=== PATIENT | male | born 1935 | race Asian ===

== ENCOUNTER 2016-06-04 02:03 | Inpatient (IN) | payer MEDICAID ==
[2016-06-04] VITALS (27 sets, daily range): BP systolic 91–161; BP diastolic 57–80; PULSE 59–128; RESP 14–40; TEMP 97.3–103.7; O2SAT 92–100
[~2016-06-04] VITALS: Ht 162.6 cm; Wt 61.5 kg
[~2016-06-04 02:03] MED LIST: APAP325T G-TUBE; JEVILIQ10 G-TUBE; MULT-65 G-TUBE; TAMS0.4C67 G-TUBE; VITA500C3 G-TUBE; ZINC220C3 G-TUBE
[2016-06-04] MEDS ORDERED: PIPERACIL-TAZO 4.5 GM PREMIX 100 ML IV STA (02:19)
[2016-06-04] MEDS ORDERED: VANCOMYCIN INJ 1,000 MG in SODIUM CHLOR 0.9% 250 ML INJ 250 ML IV STA (02:19)
[2016-06-04] MEDS ORDERED: SODIUM CHLORIDE 0.9% FLUSH 5 ML FLUSH IVF PRN (02:30)
[2016-06-04] MEDS ORDERED: ETOMIDATE 20 MG/10 ML VIAL IVP ONE (02:30)
[2016-06-04] MEDS ORDERED: ACETAMINOPHEN 650 MG SUPP RECTAL ONE (02:30)
[2016-06-04] MEDS ORDERED: VECURONIUM BROMIDE 10 MG VIAL IV ONE (02:30)
[2016-06-04] MEDS ORDERED: SODIUM CHLORID 0.9% 500 ML INJ 500 ML IV ONE ×2 (02:30→03:45)
--- NOTE | 2016-06-04 02:35 | PD ---
HPI Chief Complaint: fevers Time Seen by Provider: 02:28 Travel History International Travel<30 days: No Contact w/Intl Traveler<30days: No Traveled to known affect area: No History of Present Illness HPI 80-year-old male senior living patient with history of dementia, presents to the ER brought in by EMS, apparently has been having a fever 102 at the facility, and they have been trying to put him in for Rocephin and get an IV. However, they were not able to get an IV. Patient apparently has altered mental status at baseline and is nonverbal, he is here in the ER nonverbal and unable to give me any further history. Modifying Factors: None Associated Signs & Symptoms: Fevers, altered mental status Risk Factors: Elderly PFSH Past Medical History Alzheimer's Disease: Yes Blood Disorders: No Anxiety: No Depression: No Heart Rhythm Problems: No Cancer: No Cardiovascular Problems: No High Cholesterol: No Chest Pain: No Congestive Heart Failure: No Dementia: Yes Diabetes: No Diminished Hearing: No Endocrine: No Gastrointestinal Disorders: Yes (constipation, FAILURE TO THRIVE) Genitourinary: Yes (hypertrophy benign) Hypertension: Yes Musculoskeletal: No Neurologic: Yes (AMS, ALZHEIMERS, DEMENTIA, SYNCOPE) Psychiatric: No (DEPRESSION/ANXIETY) Reproductive: No Respiratory: No Thyroid Disease: No Social History Alcohol Use: No Tobacco Use: No Substance Use: No Allergies-Medications (Allergen,Severity, Reaction): Coded Allergies: No Known Allergies (Unverified , 01/04/16) Reported Meds & Prescriptions Reported Meds & Active Scripts Active Reported Multivitamin Adults (Multiple Vitamins W/ Minerals) 1 Tab 1 Tab PO DAILY Ceftriaxone Inj (Ceftriaxone Sodium) 1 Gm Inj 1 Gm IM ONCE Levofloxacin in 5% Dextro 750 mg/150Ml (Levofloxacin in D5w) 1 Inj Inj IV Acidophilus (Probiotic Product) 1 Cap Cap Ammonium Lactate (Lactic Acid) 12 % Cre 1 Applic TOP BID APPLY TO: Review of Systems ROS Limitations: Altered Mental Status Physical Exam Narrative GENERAL: Well-nourished, well-developed elderly male patient who is lethargic, nonverbal, tachypnea, very little gag reflex. SKIN: Warm and dry. HEAD: Normocephalic. EYES: No scleral icterus. No injection or drainage. NECK: Supple, trachea midline. CARDIOVASCULAR: Fast rate and regular rhythm without murmurs, gallops, or rubs. RESPIRATORY: Breath sounds equal bilaterally. Moderate accessory muscle use. GASTROINTESTINAL: Abdomen soft, non-tender, nondistended. MUSCULOSKELETAL: No cyanosis, or edema. BACK: Nontender without obvious deformity. No CVA tenderness. Data Data Last Documented VS Vital Signs Date Time Temp Pulse Resp B/P Pulse Ox O2 Delivery O2 Flow Rate FiO2 06/04/16 04:01 122 14 123/79 96 Ventilator 75 06/04/16 02:40 3 06/04/16 02:33 103.7 Orders Complete Blood Count With Diff (06/04/16 02:19) Comprehensive Metabolic Panel (06/04/16 02:19) Lactic Acid Sepsis Protocol (06/04/16 02:19) Urinalysis - C+S If Indicated (06/04/16 02:19) Blood Culture (06/04/16 02:19) Chest, Single Ap (06/04/16 02:19) Blood Glucose (06/04/16 02:19) Ecg Monitoring (06/04/16 02:19) Iv Access Insert/Monitor (06/04/16 02:19) Oximetry (06/04/16 02:19) Oxygen Administration (06/04/16 02:19) Vancomycin Inj (Vancomycin Inj) (06/04/16 02:19) Piperacil-Tazo 4.5 Gm Premix (Zosyn 4.5 (06/04/16 02:19) Sodium Chlorid 0.9% 500 Ml Inj (Ns 500 M (06/04/16 02:30) Arterial Blood Gas (Abg) (06/04/16 02:28) Etomidate Inj (Amidate Inj) (06/04/16 02:30) Vecuronium 10 Mg Inj (Norcuron 10 Mg Inj (06/04/16 02:30) Sodium Chloride 0.9% Flush (Ns Flush) (06/04/16 02:30) Acetaminophen Supp (Tylenol Supp) (06/04/16 02:30) Urine Culture (06/04/16 02:30) Sodium Chlorid 0.9% 500 Ml Inj (Ns 500 M (06/04/16 03:45) Insulin Human Regular Inj (Novolin R Inj (06/04/16 04:00) Admit Order (Ed Use Only) (06/04/16 04:06) Labs Laboratory Tests Test 1/15/17 1/15/17 02:30 03:22 White Blood Count 11.5 TH/MM3 Red Blood Count 6.15 MIL/MM3 Hemoglobin 17.1 GM/DL Hematocrit 55.3 % Mean Corpuscular Volume 90.0 FL Mean Corpuscular Hemoglobin 27.7 PG Mean Corpuscular Hemoglobin 30.8 % Concent Red Cell Distribution Width 18.9 % Platelet Count 162 TH/MM3 Mean Platelet Volume 10.3 FL Neutrophils (%) (Auto) 81.3 % Lymphocytes (%) (Auto) 12.3 % Monocytes (%) (Auto) 5.7 % Eosinophils (%) (Auto) 0.1 % Basophils (%) (Auto) 0.6 % Neutrophils # (Auto) 9.3 TH/MM3 Lymphocytes # (Auto) 1.4 TH/MM3 Monocytes # (Auto) 0.7 TH/MM3 Eosinophils # (Auto) 0.0 TH/MM3 Basophils # (Auto) 0.1 TH/MM3 CBC Comment AUTO DIFF Differential Total Cells 100 Counted Neutrophils % (Manual) 60 % Band Neutrophils % 24 % Lymphocytes % 12 % Monocytes % 2 % Basophils % 1 % Neutrophils # (Manual) 9.8 TH/MM3 Metamyelocytes 1 % Nucleated Red Blood Cells 3 /100 WBC Differential Comment FINAL DIFF MANUAL Platelet Estimate NORMAL Platelet Morphology Comment NORMAL Urine Color YELLOW Urine Turbidity HAZY Urine pH 5.5 Urine Specific [place] 1.031 Urine Protein 100 mg/dL Urine Glucose (UA) 1000 mg/dL Urine Ketones TRACE mg/dL Urine Occult Blood MOD Urine Nitrite NEG Urine Bilirubin NEG Urine Urobilinogen LESS THAN 2.0 MG/DL Urine Leukocyte Esterase LARGE Urine RBC 24 /hpf Urine WBC /hpf Urine WBC Clumps MANY Urine Squamous Epithelial <1 /hpf Cells Urine Bacteria MOD /hpf Urine Mucus FEW /lpf Microscopic Urinalysis Comment CATH-CULTURE IND Sodium Level 163 MEQ/L Potassium Level 3.8 MEQ/L Chloride Level 122 MEQ/L Carbon Dioxide Level 24.0 MEQ/L Anion Gap 17 MEQ/L Blood Urea Nitrogen 48 MG/DL Creatinine 2.03 MG/DL Estimat Glomerular Filtration 32 ML/MIN Rate Random Glucose 577 MG/DL Lactic Acid Level 6.0 mmol/L Calcium Level 9.7 MG/DL Total Bilirubin 1.3 MG/DL Aspartate Amino Transf 22 U/L (AST/SGOT) Alanine Aminotransferase 42 U/L (ALT/SGPT) Alkaline Phosphatase 75 U/L Total Protein 9.0 GM/DL Albumin 3.2 GM/DL Blood Gas Puncture Site RT RADIAL Blood Gas Patient Temperature 98.6 Blood Gas HCO3 20 mmol/L Blood Gas Base Excess -3.7 mmol/L Blood Gas Oxygen Saturation 96 % Arterial Blood pH 7.46 Arterial Blood Partial 28 mmHg Pressure CO2 Arterial Blood Partial 225 mmHG Pressure O2 Arterial Blood Oxygen Content 20.9 Vol % Arterial Blood 2.3 % Carboxyhemoglobin Arterial Blood Methemoglobin 1.7 % Blood Gas Hemoglobin 15.2 G/DL Oxygen Delivery Device VENTILATOR Blood Gas Ventilator Setting AC/14/600/PEEP5 Blood Gas Inspired Oxygen 60 % [facility] Medical Decision Making Medical Screen Exam Complete: Yes Emergency Medical Condition: Yes Medical Record Reviewed: Yes Differential Diagnosis Fevers, tachypnea, altered mental statussepsis versus dehydration versus metabolic issues versus pneumonia Narrative Course Patient fairly tachycardic on initial exam, saturations in the low 90s, and saturations started to drop into the mid 80s, is not protecting airway, and patient is intubated in the ER for airway protection. IV antibiotics initiated after cultures were drawn. Lab work returns showing severe hypernatremia and BUN and creatinine elevations indicative of underlying dehydration. IV fluids were given in the ER. Glucose is elevated and insulin was given. At this point , the case was discussed with Dr. Dai, construction analyst, for admission for further treatment. Aggregate critical care time was 35 minutes. Time to perform other separately billable procedures was not included in the critical care time. My time did not include minutes spent treating any other patients simultaneously or on activities that did not directly contribute to the patient's treatment. The services I provided to this patient were to treat and/or prevent clinically significant deterioration that could result in: Worsening respiratory distress, respiratory arrest, sepsis, septic shock, I provided critical care services requiring my management, as noted below: Chart data review, documentation time, medication orders and management, vital sign assessments/reviewing monitor data, ordering and reviewing lab tests, ordering and interpreting/reviewing x-rays and diagnostic studies, care of the patient and discussion of the patient with the admitting physicians. Procedures Procedure Narrative After evaluation, noting that the patient is unable to protect his airway, following procedure was performed: INTUBATION: The patient was put in optimal position for the procedure. Rapid sequence intubation was initiated by me using 20 milligrams of etomidate IV and 10 milligrams of vecuronium IV. The patient was intubated with a 8.0 cuffed endotracheal tube. Tube placement was confirmed by visualization of the tube and balloon passing through the cords, capnometry and subsequent chest x-ray. Breath sounds were equal and well aerated bilaterally postintubation. No breath sounds over stomach. Patient tolerated procedure well. Sepsis Criteria SIRS Criteria (2 or more): Temp > 100.9 or < 96.8, Heart rate over 90, RR > 20 or PaCO2 < 32 Sepsis Criteria (SIRS+source): Infect source susp/known Severe Sepsis (+one): Lactate >2 Septic Shock Criteria: Lactic acid >=4 Criteria Outcome: Meets septic shock criteria Diagnosis Primary Impression: SEVERE SEPSIS WITH SEPTIC SHOCK Additional Impression: UTI (urinary tract infection) Admitting Information Admitting Physician Requests: Admit SoonAkash arzate MD Jun 04, 2016 02:35
[2016-06-04 02:46] LABS: AUTOMATED NEUTROPHIL # 9.3 TH/MM3 (1.8-7.7); BASOPHIL # 0.1 TH/MM3 (0-0.2); BASOPHIL % 0.6 % (0.0-2.0); EOSINOPHIL % 0.1 % (0.0-4.0); HEMATOCRIT 55.3 % (39.0-51.0); LYMPH % 12.3 % (9.0-44.0); LYMPHOCYTE # 1.4 TH/MM3 (1.0-4.8); MEAN CORPUSCULAR HEMOGLOBIN 27.7 PG (27.0-34.0); MEAN CORPUSCULAR HGB CONC 30.8 % (32.0-36.0); MONO % 5.7 % (0.0-8.0); NEUT % 81.3 % (16.0-70.0); PLATELET COUNT 162 TH/MM3 (150-450); RED BLOOD COUNT 6.15 MIL/MM3 (4.50-5.90); RED CELL DISTRIBUTION WIDTH 18.9 % (11.6-17.2); WHITE BLOOD COUNT 11.5 TH/MM3 (4.0-11.0)
[2016-06-04 02:54] LABS: HEMO FLAGS AUTO DIFF
[2016-06-04 02:55] LABS: BACTERIA, URINE MOD /hpf; BLOOD, URINE MOD (NEG); GLUCOSE,URINE 1000 mg/dL (NEG); KETONE, URINE TRACE mg/dL (NEG); MUCUS URINE FEW /lpf (OCC); NITRITE,URINE NEG (NEG); PH, URINE 5.5 (5.0-8.5); SQUAMOUS EPITHELIAL CELL URINE <1 /hpf (0-5); URINE COLOR YELLOW (YELLW/STRAW)
[2016-06-04 02:56] LABS: COMMENT (UR) CATH-CULTURE IND; CULTURE IF INDICATED CATH CULTURE IND
[2016-06-04 03:31] LABS: ALKALINE PHOSPHATASE 75 U/L (45-117); ALT (GPT) 42 U/L (12-78); ANION GAP 17 MEQ/L (5-15); AST (GOT) 22 U/L (15-37); BLOOD UREA NITROGEN 48 MG/DL (7-18); CHLORIDE 122 MEQ/L (98-107); GLOMERULAR FILTRATION RATE 32 ML/MIN (>89); POTASSIUM 3.8 MEQ/L (3.5-5.1); TOTAL BILIRUBIN ADULT 1.3 MG/DL (0.2-1.0)
[2016-06-04 03:32] LABS: BLOOD GAS BASE EXCESS -3.7 mmol/L (-2-2); BLOOD GAS CARBOXYHEMOGLOBIN 2.3 % (0-4); BLOOD GAS HCO3 20 mmol/L (22-26); BLOOD GAS METHEMOGLOBIN 1.7 % (0-2); BLOOD GAS O2 HGB SATURATION 96 % (90-100); BLOOD GAS OXYGEN CONTENT 20.9 Vol % (12.0-20.0); BLOOD GAS PCO2 28 mmHg (38-42); BLOOD GAS PO2 225 mmHG (61-120); BLOOD GAS TOTAL HGB 15.2 G/DL (12.0-16.0); CRITICAL VALUE NO; DRAW SITE RT RADIAL; FIO2 60 %; NUMBER OF ARTERIAL PUNCTURES 2; OXYGEN DEVICE VENTILATOR; STAT YES; TEMP CORR TO 98.6; ULNAR PULSE PRESENT; VENT SETTINGS AC/14/600/PEEP5
[2016-06-04 03:33] LABS: BANDS 24 % (0-6); BASOPHILS 1 % (0-2); CORRECTED NUCLEATED RBC 3 /100 WBC (0-0); METAMYELOCYTES 1 % (0-1); NEUTROPHIL # MANUAL DIFF 9.8 TH/MM3 (1.8-7.7); POLYS (SEG NEUTROPHILS) 60 % (16-70); SCAN/DIFF FINAL DIFF MANUAL; SODIUM (NA) 163 MEQ/L (136-145); WBC DIFF SAMPLE 100
[2016-06-04 03:34] LABS: PLATELET ESTIMATE SMEAR NORMAL (NORMAL); PLATELET MORPHOLOGY NORMAL (NORMAL)
--- NOTE | 2016-06-04 03:48 | RADRPT ---
EXAM DATE/TIME: 06/04/2016 03:19 [facility] COMPARISON: CHEST SINGLE AP, November 25, 2014, 8:39. INDICATIONS : E-T tube placement. MEDICAL HISTORY : Failure to thrive SURGICAL HISTORY : G-Tube ENCOUNTER: Initial ACUITY: 1 day PAIN SCORE: Non-responsive. LOCATION: Bilateral chest FINDINGS: The cardiac silhouette is normal in transverse diameter. The lungs are free of acute parenchymal opac ity. No effusions are identified. Endotracheal tube is in good position above the dario. A nasogastr ic tube is in place with its tip in the stomach. CONCLUSION: 1. Satisfactory position of endotracheal tube as above. Rachid Lopez MD on June 04, 2016 at 3:46 Board Certified Radiologist. This report was verified electronically.
[2016-06-04] MEDS ORDERED: AMMO12CR4 TOP (03:58)
[2016-06-04] MEDS ORDERED: CEFT1INJ IM (03:58)
[2016-06-04] MEDS ORDERED: PROB1CAP12 (03:58)
[2016-06-04] MEDS ORDERED: MULT1TAB84 PO (03:58)
[2016-06-04] MEDS ORDERED: LEVO1INJ IV (03:58)
[2016-06-04] MEDS ORDERED: INSULIN ASPART SUPPLEMENTAL SCALE SQ SCH (04:00)
[2016-06-04] MEDS ORDERED: INSULIN HUMAN REGULAR 1,000 UNITS/10 ML VIAL IVP ONE (04:00)
[2016-06-04] MEDS ORDERED: PROPOFOL 1000 MG/100 ML INJ 100 ML IV SCH (04:15)
[2016-06-04] MEDS ORDERED: MISCELLANEOUS NURSING INFORMATION XX SCH (04:15)
[2016-06-04] MEDS ORDERED: CHLORHEXIDINE GLUCONATE 2 % 1 PACK (2 CLOTHS) TOP PRN (04:15)
[2016-06-04] MEDS ORDERED: GLUCAGON 1 MG/ML VIAL OTHER PRN ×2 (04:15→04:30)
[2016-06-04] MEDS ORDERED: DEXTROSE 50% IN WATER 50 ML VIAL(D50) IV PUSH PRN ×3 (04:15→10:00)
[2016-06-04] MEDS ORDERED: ONDANSETRON HCL 4 MG/2 ML VIAL IV PRN (04:15)
[2016-06-04 04:33] LABS: LACTIC ACID GHOST NOT REPORTABLE
[2016-06-04] MEDS: LACTATED RINGER'S 1000 ML INJ 1,000 ML IV SCH ×2 (04:45→10:28)
--- NOTE | 2016-06-04 06:09 | HHI.HP ---
[facility] Service Critical Care Medicine Primary Care Physician Non-Staff Admission Diagnosis severe sepsis/hypernatremia/intubated Diagnosis: Chief Complaint: Sepsis. Travel History International Travel<30 Days: No Contact w/Intl Traveler <30 Da: No Traveled to Known Affected Are: No History of Present Illness 80 y/o NH patient with severe dehydration, UTI sepsis, respiratory failure admitted earlier. Nonverbal, minimally responsive. Cachectic, anasarca. Review of Systems ROS Unobtainable. Past Family Social History Allergies: Coded Allergies: No Known Allergies (Unverified , 01/04/16) Past Medical History Past Medical History Alzheimer's Disease: Yes Blood Disorders: No Anxiety: No Depression: No Heart Rhythm Problems: No Cancer: No Cardiovascular Problems: No High Cholesterol: No Chest Pain: No Congestive Heart Failure: No Dementia: Yes Diabetes: No Diminished Hearing: No Endocrine: No Gastrointestinal Disorders: Yes (constipation, FAILURE TO THRIVE) Genitourinary: Yes (hypertrophy benign) Hypertension: Yes Musculoskeletal: No Neurologic: Yes (AMS, ALZHEIMERS, DEMENTIA, SYNCOPE) Psychiatric: No (DEPRESSION/ANXIETY) Reproductive: No Respiratory: No Thyroid Disease: No Social History Alcohol Use: No Tobacco Use: No Substance Use: No Allergies-Medications Allergies-Medications (Allergen,Severity, Reaction): Coded Allergies: No Known Allergies (Unverified , 01/04/16) Reported Meds & Prescriptions Reported Meds & Active Scripts Active Reported Multivitamin Adults (Multiple Vitamins W/ Minerals) 1 Tab 1 Tab PO DAILY Ceftriaxone Inj (Ceftriaxone Sodium) 1 Gm Inj 1 Gm IM ONCE Levofloxacin in 5% Dextro 750 mg/150Ml (Levofloxacin in D5w) 1 Inj Inj IV Acidophilus (Probiotic Product) 1 Cap Cap Ammonium Lactate (Lactic Acid) 12 % Cre 1 Applic TOP BID Physical Exam Vital Signs Vital Signs Date Time Temp Pulse Resp B/P Pulse Ox O2 Delivery O2 Flow Rate FiO2 06/04/16 05:00 98 100 06/04/16 04:25 60 06/04/16 04:20 122 14 128/78 99 Ventilator 60 06/04/16 04:20 96 60 06/04/16 04:01 122 14 123/79 96 Ventilator 75 06/04/16 03:56 93 75 06/04/16 03:37 100 35 06/04/16 03:32 121 14 161/75 100 Ventilator 60 06/04/16 02:59 60 06/04/16 02:55 118 14 147/79 100 Ventilator 60 06/04/16 02:50 96 60 06/04/16 02:47 119 16 121/74 99 06/04/16 02:40 94 Nasal Cannula 3 06/04/16 02:40 40 94 Nasal Cannula 2 06/04/16 02:35 128 40 92 Nasal Cannula 06/04/16 02:33 103.7 128 40 131/75 92 Physical Exam Gen: Frail, cachectic man with anasarca Head: Atraumatic. Neck: Chronically stiff, mobile. Orally intubated. Lungs: Scattered bilateral rhonchi, R>>L. acceptable air movement. Heart: NL S1S2, distant tones. Soft systolic mur left precordium. No JVD. Abdomen: Distended but soft, nontender. BS active. Mckeon in old, dry PEG site mid-abdomen. No guarding. Extremities: Dry decubiti both heels. Tepid, poor perfusion. Laboratory Laboratory Tests Test 06/04/16 06/04/16 02:30 03:22 White Blood Count 11.5 Red Blood Count 6.15 Hemoglobin 17.1 Hematocrit 55.3 Mean Corpuscular Volume 90.0 Mean Corpuscular Hemoglobin 27.7 Mean Corpuscular Hemoglobin 30.8 Concent Red Cell Distribution Width 18.9 Platelet Count 162 Mean Platelet Volume 10.3 Neutrophils (%) (Auto) 81.3 Lymphocytes (%) (Auto) 12.3 Monocytes (%) (Auto) 5.7 Eosinophils (%) (Auto) 0.1 Basophils (%) (Auto) 0.6 Neutrophils # (Auto) 9.3 Lymphocytes # (Auto) 1.4 Monocytes # (Auto) 0.7 Eosinophils # (Auto) 0.0 Basophils # (Auto) 0.1 CBC Comment AUTO DIFF Differential Total Cells 100 Counted Neutrophils % (Manual) 60 Band Neutrophils % 24 Lymphocytes % 12 Monocytes % 2 Basophils % 1 Neutrophils # (Manual) 9.8 Metamyelocytes 1 Nucleated Red Blood Cells 3 Differential Comment FINAL DIFF MANUAL Platelet Estimate NORMAL Platelet Morphology Comment NORMAL Urine Color YELLOW Urine Turbidity HAZY Urine pH 5.5 Urine Specific [place] 1.031 Urine Protein 100 Urine Glucose (UA) 1000 Urine Ketones TRACE Urine Occult Blood MOD Urine Nitrite NEG Urine Bilirubin NEG Urine Urobilinogen LESS THAN 2.0 Urine Leukocyte Esterase LARGE Urine RBC 24 Urine WBC Urine WBC Clumps MANY Urine Squamous Epithelial <1 Cells Urine Bacteria MOD Urine Mucus FEW Microscopic Urinalysis Comment CATH-CULTURE IND Sodium Level 163 Potassium Level 3.8 Chloride Level 122 Carbon Dioxide Level 24.0 Anion Gap 17 Blood Urea Nitrogen 48 Creatinine 2.03 Estimat Glomerular Filtration 32 Rate Random Glucose 577 Lactic Acid Level 6.0 Calcium Level 9.7 Total Bilirubin 1.3 Aspartate Amino Transf 22 (AST/SGOT) Alanine Aminotransferase 42 (ALT/SGPT) Alkaline Phosphatase 75 Total Protein 9.0 Albumin 3.2 Blood Gas Puncture Site RT RADIAL Blood Gas Patient Temperature 98.6 Blood Gas HCO3 20 Blood Gas Base Excess -3.7 Blood Gas Oxygen Saturation 96 Arterial Blood pH 7.46 Arterial Blood Partial 28 Pressure CO2 Arterial Blood Partial 225 Pressure O2 Arterial Blood Oxygen Content 20.9 Arterial Blood 2.3 Carboxyhemoglobin Arterial Blood Methemoglobin 1.7 Blood Gas Hemoglobin 15.2 Oxygen Delivery Device VENTILATOR Blood Gas Ventilator Setting AC/14/600/PEEP5 Blood Gas Inspired Oxygen 60 Date/Time Procedure Status Source Growth 06/04/16 02:30 Urine Culture Received Urine Catheterized Urine Pending 06/04/16 02:30 Aerobic Blood Culture Received Blood Peripheral Pending 06/04/16 02:30 Anaerobic Blood Culture Received Blood Peripheral Pending Result Diagram: 06/04/160 06/04/16229 Assessment and Plan Problem List: (1) Severe sepsis with acute organ dysfunction ICD Code: A41.9 Status: Acute (2) Acute respiratory failure ICD Code: J96.00 Status: Acute (3) UTI (urinary tract infection) ICD Code: N39.0 Status: Acute (4) Alzheimer's dementia ICD Code: F02.80 Status: Acute (5) Fever ICD Code: R50.9 Status: Acute (6) Global aphasia ICD Code: R47.02 Status: Acute Assessment and Plan Assessment: 1. Severe sepsis. 2. Respiratory Failure. 3. UTI. 4. Protein Calorie Malnutrition. 5. Dementia, advanced. Nonverbal. Plan: 1. PRVC mode. 2. Broad abx coverage. 3. Minimal sedation. 4. Aggressive hydration. 5. Replace Mckeon with PEG tube. 6. Protonix. 7. Heparin sq BID. Overall impression: Critically ill elderly man with severe sepsis, SHLOMO, and respiratory failure. Will require 48 hours minimum of ICU care and resuscitation. Critical care 40 mins Ezekiel Dai MD Jun 04, 2016 06:09
[2016-06-04] MEDS: HEPARIN SODIUM - SQ 10,000 UNITS/ML VIAL SQ SCH ×2 (07:56→20:46)
[2016-06-04] MEDS: PANTOPRAZOLE SODIUM 40 MG VIAL IV SCH (07:56)
[2016-06-04] MEDS: SODIUM CHLOR 0.9% 1000 ML INJ 1,000 ML IV NR ×2 (07:57→08:45)
[2016-06-04] MEDS: SODIUM CHLORIDE 0.9% FLUSH 5 ML FLUSH IV FLUSH SCH ×2 (07:57→20:46)
[2016-06-04 09:14] LABS: INTERNATIONAL NORMALIZED RATIO 1.1 RATIO; PROTHROMBIN TIME - PATIENT 12.7 SEC (9.8-11.6)
[2016-06-04 09:38] LABS: BICARBONATE 22.1 MEQ/L (21.0-32.0)
[2016-06-04 09:39] LABS: POTASSIUM 3.4 MEQ/L (3.5-5.1)
[2016-06-04] MEDS ORDERED: Vancomycin Consult Pharmacy 1 EA OTHER SCH (10:00)
[2016-06-04] MEDS ORDERED: MISC INFORMATION XX ONE (10:00)
--- NOTE | 2016-06-04 10:40 | PD.PROCEDR ---
Central Line Procedure REASON FOR PROCEDURE Central venous access PROCEDURE PERFORMED Central line placement: L subclavian CONSENT Informed consent for procedure was obtained and time out performed The risks and benefits of the procedure were discussed to include but limited to bleeding , clot formation, infection, and even . ANESTHESIA Local injection of 1% Lidocaine DESCRIPTION OF THE PROCEDURE The patient was placed in supine, mild Trendelenburg position. The area was exposed and cleansed with ChloraPrep, times two. Large sterile drape was used to cover the patient, with the site exposed, under sterile conditions including cap, face mask, sterile gown, and sterile gloves. On single attempt, the introducer needle was inserted with negative pressure in syringe and venous flash was obtained. The guide wire was then advanced without any restriction and the needle was removed. The dilator was used without any complications. Using Seldinger technique the 20 triple lumen ABX coated catheter was advanced over the guide wire to a depth of 18 centimeters. The guide wire was removed. All ports were aspirated with dark venous blood return and flushed easily with sterile saline. All ports were capped. Antibiotic disc was placed around central line at puncture site. The central line was secured to the skin with two interrupted 2.0 silk sutures. The area was bandaged with sterile see- through central line bandage. COMPLICATIONS: No apparent complications ESTIMATED BLOOD LOSS: Less than 1 cc. Reno Vega MD Jun 04, 2016 10:40
[2016-06-04] MEDS ORDERED: INSULIN REGULAR (IV INFUSION) 100 UNITS in SODIUM CHLORIDE 0.9% INJ 99 ML IV SCH (11:00)
[2016-06-04] MEDS: PROPOFOL 1000 MG/100 ML INJ 100 ML IV SCH ×2 (11:03→15:10)
--- NOTE | 2016-06-04 11:23 | RADRPT ---
EXAM DATE/TIME: 06/04/2016 10:44 [facility] COMPARISON: CHEST SINGLE AP, June 04, 2016, 3:19. INDICATIONS : Central Line Placement. MEDICAL HISTORY : Failure to thrive. Anorexia. Contractures. BHP. SURGICAL HISTORY : G-Tube Placement. ENCOUNTER: Initial ACUITY: 1 day PAIN SCORE: Non-responsive. LOCATION: Bilateral chest FINDINGS: A single view of the chest demonstrates the lungs to be symmetrically aerated without evidence of mas s, infiltrate or effusion. The endotracheal tube is 1 cm above the dario . The NG tube is within t he stomach. Left subclavian central line good position The cardiomediastinal contours are unremarkabl e. Osseous structures are intact. CONCLUSION: Catheters in good position. Endotracheal tube is 1 cm above the dario extending towards the right ma in bronchus. Jai Webster MD on June 04, 2016 at 11:21 Board Certified Radiologist. This report was verified electronically.
[2016-06-04] MEDS: PIPERACIL-TAZO 2.25 GM PREMIX 50 ML IV SCH ×2 (11:32→17:03)
[2016-06-04] MEDS ORDERED: FREE WATER G-TUBE SCH (12:00)
[2016-06-04] MEDS ORDERED: SODIUM CHLOR 0.9% 1000 ML INJ 1,000 ML IV ONE ×2 (13:30)
[2016-06-04 14:24] LABS: BICARBONATE 22.8 MEQ/L (21.0-32.0)
[2016-06-04 14:30] LABS: POTASSIUM 2.5 MEQ/L (3.5-5.1)
[2016-06-04] MEDS: DEXTROSE 5% IN WATE 1000ML INJ 1,000 ML IV SCH ×2 (14:45→21:40)
[2016-06-04] MEDS ORDERED: SODIUM PHOSPHATE INJ 30 MMOL in SODIUM CHLOR 0.9% 250 ML INJ 240 ML IV PRN (14:45)
[2016-06-04] MEDS ORDERED: MAGNESIUM SULFATE INJ 2 GM in SODIUM CHLORIDE 0.9% INJ 96 ML IV PRN (14:45)
[2016-06-04] MEDS ORDERED: POTASSIUM PHOSPHATE MONOBASIC 500 MG TAB PO/TUBE PRN (14:45)
[2016-06-04] MEDS ORDERED: POTASSIUM CL 40 MEQ/30 ML LIQ UDC PO/TUBE PRN ×2 (14:45)
[2016-06-04] MEDS ORDERED: POTASSIUM CHLOR 40 MEQ PREMIX 100 ML IV PRN (14:45)
[2016-06-04] MEDS ORDERED: MAGNESIUM OXIDE 400 MG TAB PO PRN (14:45)
[2016-06-04] MEDS ORDERED: POTASSIUM CHLOR 20 MEQ PREMIX 100 ML IV PRN ×2 (14:45)
[2016-06-04] MEDS ORDERED: MAGNESIUM SULFATE INJ 4 GM in SODIUM CHLORIDE 0.9% INJ 92 ML IV PRN (14:45)
[2016-06-04] MEDS: POTASSIUM CHLOR 40 MEQ PREMIX 100 ML IV PRN ×2 (15:06→17:01)
--- NOTE | 2016-06-04 15:52 | EKG ---
Date Performed: 06/04/2016 Time Performed: 02:09:56 PTAGE: 80 years EKG: SINUS TACHYCARDIA NONSPECIFIC T-WAVE ABNORMALITY Rate has increased significantly since brianna or tracing Diffuse ST-T wave changes are new Clinical correlation is recommended ABNORMAL RHYTHM ECG NO PREVIOUS TRACING DOCTOR: Segundo Cisneros Interpretating Date/Time 06/04/2016 15:52:13
[2016-06-04 15:57] LABS: MAGNESIUM 2.4 MG/DL (1.5-2.5)
[2016-06-04] MEDS: FREE WATER G-TUBE SCH ×2 (16:00→20:00)
[2016-06-04] MEDS ORDERED: SODIUM CHLOR 0.45% 1000 ML INJ 1,000 ML IV ONE (17:45)
--- NOTE | 2016-06-04 19:28 | PD.CONS ---
HPI History of Present Illness This is a 80 year old who is a [facility] resident who is currently in the ICU he is noted to have a Mckeon catheter and his PEG site as opposed to a regular PEG tube and we are asked to place a standardized PEG tube patient unable to provide any history he is intubated PFSH Past Medical History As per chart Coded Allergies: No Known Allergies (Unverified , 01/04/16) Medications Current Medications Vancomycin HCl 1000 mg/Sodium Chloride 250 ml @ 250 mls/hr ONCE STAT IV Last administered on 06/04/16 03:23; Start 06/04/16 at 02:19; Stop 06/04/16 at 03:18 ; Status DC Piperacillin Sod/ Tazobactam Sod 100 ml @ 200 mls/hr ONCE STAT IV Last administered on 06/04/16 02:54; Start 06/04/16 at 02:19; Stop 06/04/16 at 02:48 ; Status DC Sodium Chloride (NS 500 ml Inj) 500 ml @ 500 mls/hr BOLUS ONCE IV Last administered on 06/04/16 02:35; Start 06/04/16 at 02:30; Stop 06/04/16 at 03:29 ; Status DC Etomidate (Amidate Inj) 20 mg ONCE ONCE IVP Last administered on 06/04/16 02: 45; Start 06/04/16 at 02:30; Stop 06/04/16 at 02:31; Status DC Vecuronium [place] (Norcuron 10 Mg Inj) 10 mg ONCE ONCE IV Last administered on 06/04/16 02:45; Start 06/04/16 at 02:30; Stop 06/04/16 at 02:31; Status DC IV Flush (NS Flush) 2 ml UNSCH PRN IVF FLUSH AFTER USING IV ACCESS; Start 06/04 at 02:30; Stop 06/04/16 at 04:21; Status DC Acetaminophen 650 mg 650 mg ONCE ONCE RECTAL Last administered on 06/04/16 02 :54; Start 06/04/16 at 02:30; Stop 06/04/16 at 02:31; Status DC Sodium Chloride (NS 500 ml Inj) 500 ml @ 500 mls/hr BOLUS ONCE IV Last administered on 06/04/16 04:11; Start 06/04/16 at 03:45; Stop 06/04/16 at 04:44 ; Status DC Insulin Human Regular (NovoLIN R INJ) 4 units ONCE ONCE IVP Last administered on 06/04/16 04:10; Start 06/04/16 at 04:00; Stop 06/04/16 at 04:01; Status DC IV Flush (NS Flush) 2 ml UNSCH PRN IV FLUSH FLUSH AFTER USING IV ACCESS; Start 06/04/16 at 04:15 IV Flush (NS Flush) 2 ml BID IV FLUSH Last administered on 06/04/16 07:57; Start 06/04/16 at 09:00 Acetaminophen (Tylenol) 650 mg Q6H PRN PO PAIN 1-10 AND/OR FEVER >101F; Start 06/04/16 at 04:15 Morphine Sulfate (Morphine Inj) 2 mg Q2H PRN IV PAIN SCALE 6 TO 10; Start 06/04 at 04:15 Pantoprazole Sodium (Protonix Inj) 40 mg DAILY IV Last administered on 07:56; Start 06/04/16 at 09:00 Ondansetron HCl (Zofran Inj) 4 mg Q6H PRN IV NAUSEA OR VOMITING; Start at 04:15 Albuterol/ Ipratropium (Duoneb Neb) 1 ampule Q4HR NEB PRN INH WHEEZING; Start 06/04/16 at 04:15 Heparin Sodium (Porcine) (Heparin Inj) 5,000 units Q12HR SQ Last administered on 06/04/16 07:56; Start 06/04/16 at 09:00 Miscellaneous Information 1 [id number] Last administered on 06/04/16 04:15; Start 06/04/16 at 04:15 Chlorhexidine Gluconate (Chlorhexidine 2% Cloth) 3 pack Taper DAILY@04 TOP ; Start 06/05/16 at 04:00; Stop 06/01/17 at 03:59 Chlorhexidine Gluconate 3 pack 3 pack UNSCH PRN TOP HYGIENIC CARE; Start at 04:15 Propofol (Diprivan 1000 Mg/100ml Inj) 100 ml @ 0 mls/hr TITRATE IV Last administered on 06/04/16 15:10; Start 06/04/16 at 04:15 Dextrose (D50w (Vial) Inj) 25 ml UNSCH PRN IV PUSH HYPOGLYCEMIA-SEE COMMENTS; Start 06/04/16 at 04:15; Stop 06/04/16 at 10:27; Status DC Glucagon (Glucagon Inj) 1 mg UNSCH PRN OTHER HYPOGLYCEMIA-SEE COMMENTS; Start 06/04/16 at 04:15; Stop 06/04/16 at 10:27; Status DC Insulin Aspart 1 1 Q4HR SQ Last administered on 06/04/16 07:56; Start at 04:00; Stop 06/04/16 at 09:54; Status DC Propofol (Diprivan 1000 Mg/100ml Inj) 100 ml @ 0 mls/hr TITRATE IV ; Start 06/04 at 04:15; Stop 06/04/16 at 04:21; Status DC Dextrose (D50w (Vial) Inj) 25 ml UNSCH PRN IV PUSH HYPOGLYCEMIA - SEE COMMENTS ; Start 06/04/16 at 04:30; Status Cancel Glucagon 1 mg 1 mg UNSCH PRN OTHER HYPOGLYCEMIA-SEE COMMENTS; Start 06/04/16 at 04:30; Status Cancel Lactated Ringer's 1,000 ml @ 175 mls/hr Q5H43M IV Last administered on 04:45; Start 06/04/16 at 04:45; Stop 06/04/16 at 14:47; Status DC Sodium Chloride 1,000 ml @ 1,000 mls/hr Q1H IV Last administered on 06/04/16 08:45; Start 06/04/16 at 07:45; Stop 06/04/16 at 09:44; Status DC Insulin Human Regular/Sodium Chloride (NovoLIN R (IV INFUSION)/NS Inj) 100 ml @ 0 mls/hr TITRATE IV Last administered on 06/04/16 11:31; Start 06/04/16 at 11: 00 Dextrose (D50w (Vial) Inj) 25 ml UNSCH PRN IV PUSH SEE LABEL COMMENTS; Start at 10:00 Miscellaneous Information 1 1 ONCE ONCE XX Last administered on 06/04/16 10: 00; Start 06/04/16 at 10:00; Stop 06/04/16 at 10:32; Status DC Pharmacy Profile Note 0 ml @ 0 mls/hr UNSCH OTHER ; Start 06/04/16 at 10:00 Piperacillin Sod/ Tazobactam Sod (Zosyn 2.25 Gm Premix) 50 ml @ 100 mls/hr Q6H IV Last administered on 06/04/16 17:03; Start 06/04/16 at 12:00 Water 300 ml 300 ml Q6HR G-TUBE Last administered on 06/04/16 11:32; Start at 12:00; Stop 06/04/16 at 14:45; Status DC Sodium Chloride 1,000 ml @ 999 mls/hr BOLUS ONCE IV Last administered on 06/04 13:30; Start 06/04/16 at 13:30; Stop 06/04/16 at 14:30; Status DC Sodium Chloride (NS 1000 ml Inj) 1,000 ml @ 999 mls/hr BOLUS ONCE IV Last administered on 06/04/16 13:30; Start 06/04/16 at 13:30; Stop 06/04/16 at 14:30 ; Status DC Water 300 ml 300 ml Q4HR G-TUBE Last administered on 06/04/16 16:00; Start at 16:00 Potassium Chloride 100 ml @ 50 mls/hr Q2H PRN IV For Potassium 2.8 - 3.2 mEq/ L Last administered on 06/04/16 17:01; Start 06/04/16 at 14:45 Potassium Chloride (KCl 20 Meq Premix Inj) 100 ml @ 50 mls/hr Q2H PRN IV For Potassium 2.8 - 3.2 mEq/L; Start 06/04/16 at 14:45 Potassium Chloride 40 meq 40 meq UNSCH PRN PO/TUBE For Potassium 3.3 - 3.5 mEq/ L; Start 06/04/16 at 14:45 Potassium Chloride 100 ml @ 25 mls/hr UNSCH PRN IV For Potassium 3.3 - 3.5 mEq /L; Start 06/04/16 at 14:45 Potassium Chloride 100 ml @ 50 mls/hr Q2H PRN IV For Potassium 3.3 - 3.5 mEq/L ; Start 06/04/16 at 14:45 Magnesium Sulfate/ Sodium Chloride (Magnesium Sulfate Inj/NS Inj) 100 ml @ 50 mls/hr UNSCH PRN IV For Magnesium 0.9 - 1.1 mg/dL; Start 06/04/16 at 14:45 Magnesium Oxide 800 mg 800 mg UNSCH PRN PO For Magnesium 1.2 - 1.6 mg/dL; Start 06/04/16 at 14:45 Magnesium Sulfate/ Sodium Chloride (Magnesium Sulfate Inj/NS Inj) 100 ml @ 50 mls/hr UNSCH PRN IV For Magnesium 1.2 - 1.6 mg/dL; Start 06/04/16 at 14:45 Potassium Phosphate 2000 mg 2,000 mg Q4H PRN PO For Phosphorus < 2.5 mg/dL; Start 06/04/16 at 14:45 Sodium Phosphate/ Sodium Chloride (Sodium Phosphate Inj/NS 250 ml Inj) 250 ml @ 42 mls/hr UNSCH PRN IV For Phosphorus < 2.5 mg/dL; Start 06/04/16 at 14:45 Potassium Chloride (KCl 40 Meq/30 ml Liq) 40 meq UNSCH PRN PO/TUBE SEE LABEL COMMENTS; Start 06/04/16 at 14:45 Potassium Phosphate 2000 mg 2,000 mg UNSCH PRN PO/TUBE SEE LABEL COMMENTS; Start 06/04/16 at 14:45 Potassium Phosphate 30 mmol/ Sodium Chloride 260 ml @ 42 mls/hr UNSCH PRN IV SEE LABEL COMMENTS; Start 06/04/16 at 14:45 Dextrose 1,000 ml @ 150 mls/hr Q6H40M IV Last administered on 06/04/16t 14:45 ; Start 06/04/16 at 14:45 Sodium Chloride (1/2 NS 1000 ml Inj) 1,000 ml @ 999 mls/hr BOLUS ONCE IV Last administered on 06/04/16 17:45; Start 06/04/16 at 17:45; Stop 06/04/16 at 18:45; Status DC Family History Noncontributory GI Exam Vitals I&O Vital Signs Date Time Temp Pulse Resp B/P Pulse Ox O2 Delivery O2 Flow Rate FiO2 06/04/16 18:00 64 06/04/16 16:34 100 40 06/04/16 16:00 99.0 70 17 91/64 97 06/04/16 16:00 40 06/04/16 16:00 70 06/04/16 14:00 74 06/04/16 12:34 40 06/04/16 12:26 99 40 06/04/16 12:00 100.4 86 17 113/57 97 06/04/16 12:00 86 06/04/16 12:00 40 06/04/16 10:00 86 06/04/16 08:39 97 40 06/04/16 08:00 113 06/04/16 08:00 102.7 114 29 131/80 98 06/04/16 08:00 40 06/04/16 06:00 103.4 120 19 124/74 97 06/04/16 05:25 103.4 122 18 132/79 95 06/04/16 05:15 120 06/04/16 05:15 60 06/04/16 05:00 98 100 06/04/16 04:25 60 06/04/16 04:20 122 14 128/78 99 Ventilator 60 06/04/16 04:20 96 60 06/04/16 04:01 122 14 123/79 96 Ventilator 75 06/04/16 03:56 93 75 06/04/16 03:37 100 35 06/04/16 03:32 121 14 161/75 100 Ventilator 60 06/04/16 02:59 60 06/04/16 02:55 118 14 147/79 100 Ventilator 60 06/04/16 02:50 96 60 06/04/16 02:47 119 16 121/74 99 06/04/16 02:40 94 Nasal Cannula 3 06/04/16 02:40 40 94 Nasal Cannula 2 06/04/16 02:35 128 40 92 Nasal Cannula 06/04/16 02:33 103.7 128 40 131/75 92 I/O 06/03/16 06/03/16 06/03/16 06/04/16 06/04/16 06/04/16 07:00 15:00 23:00 07:00 15:00 23:00 Intake Total 119 ml 4307 ml Output Total 275 ml 800 ml Balance -156 ml 3507 ml Intake IV Total 119 ml 4007 ml Other 300 ml Output Urine Total 275 ml 550 ml Gastric Drainage Total 250 ml # Bowel Movements 0 Imaging Last Impressions Chest X-Ray 06/04/16 0219 Signed Impressions: Service Date/Time: Saturday, June 04, 2016 03:19 - CONCLUSION: 1. Satisfactory position of endotracheal tube as above. Rachid Lopez MD Laboratory Test 06/04/16 06/04/16 06/04/16 06/04/16 02:30 03:22 05:30 06:10 White Blood Count 11.5 TH/MM3 Red Blood Count 6.15 MIL/MM3 Hemoglobin 17.1 GM/DL Hematocrit 55.3 % Mean Corpuscular Volume 90.0 FL Mean Corpuscular Hemoglobin 27.7 PG Mean Corpuscular Hemoglobin 30.8 % Concent Red Cell Distribution Width 18.9 % Platelet Count 162 TH/MM3 Mean Platelet Volume 10.3 FL Neutrophils (%) (Auto) 81.3 % Lymphocytes (%) (Auto) 12.3 % Monocytes (%) (Auto) 5.7 % Eosinophils (%) (Auto) 0.1 % Basophils (%) (Auto) 0.6 % Neutrophils # (Auto) 9.3 TH/MM3 Lymphocytes # (Auto) 1.4 TH/MM3 Monocytes # (Auto) 0.7 TH/MM3 Eosinophils # (Auto) 0.0 TH/MM3 Basophils # (Auto) 0.1 TH/MM3 CBC Comment AUTO DIFF Differential Total Cells 100 Counted Neutrophils % (Manual) 60 % Band Neutrophils % 24 % Lymphocytes % 12 % Monocytes % 2 % Basophils % 1 % Neutrophils # (Manual) 9.8 TH/MM3 Metamyelocytes 1 % Nucleated Red Blood Cells 3 /100 WBC Differential Comment FINAL DIFF MANUAL Platelet Estimate NORMAL Platelet Morphology Comment NORMAL Urine Color YELLOW Urine Turbidity HAZY Urine pH 5.5 Urine Specific [place] 1.031 Urine Protein 100 mg/dL Urine Glucose (UA) 1000 mg/dL Urine Ketones TRACE mg/dL Urine Occult Blood MOD Urine Nitrite NEG Urine Bilirubin NEG Urine Urobilinogen LESS THAN 2.0 MG/DL Urine Leukocyte Esterase LARGE Urine RBC 24 /hpf Urine WBC /hpf Urine WBC Clumps MANY Urine Squamous Epithelial <1 /hpf Cells Urine Bacteria MOD /hpf Urine Mucus FEW /lpf Microscopic Urinalysis Comment CATH-CULTURE IND Sodium Level 163 MEQ/L Potassium Level 3.8 MEQ/L Chloride Level 122 MEQ/L Carbon Dioxide Level 24.0 MEQ/L Anion Gap 17 MEQ/L Blood Urea Nitrogen 48 MG/DL Creatinine 2.03 MG/DL Estimat Glomerular Filtration 32 ML/MIN Rate Random Glucose 577 MG/DL 541 MG/DL Lactic Acid Level 6.0 mmol/L 6.0 mmol/L Calcium Level 9.7 MG/DL Total Bilirubin 1.3 MG/DL Aspartate Amino Transf 22 U/L (AST/SGOT) Alanine Aminotransferase 42 U/L (ALT/SGPT) Alkaline Phosphatase 75 U/L Total Protein 9.0 GM/DL Albumin 3.2 GM/DL Blood Gas Puncture Site RT RADIAL Blood Gas Patient Temperature 98.6 Blood Gas HCO3 20 mmol/L Blood Gas Base Excess -3.7 mmol/L Blood Gas Oxygen Saturation 96 % Arterial Blood pH 7.46 Arterial Blood Partial 28 mmHg Pressure CO2 Arterial Blood Partial 225 mmHG Pressure O2 Arterial Blood Oxygen Content 20.9 Vol % Arterial Blood 2.3 % Carboxyhemoglobin Arterial Blood Methemoglobin 1.7 % Blood Gas Hemoglobin 15.2 G/DL Oxygen Delivery Device VENTILATOR Blood Gas Ventilator Setting AC/14/600/PEEP5 Blood Gas Inspired Oxygen 60 % Nasal Screen MRSA (PCR) NEGATIVE Test 06/04/16 06/04/16 06/04/16 08:48 13:31 13:36 Prothrombin Time 12.7 SEC Prothromb Time International 1.1 RATIO Ratio Sodium Level 165 MEQ/L 171 MEQ/L Potassium Level 3.4 MEQ/L 2.5 MEQ/L Chloride Level 127 MEQ/L 139 MEQ/L Carbon Dioxide Level 22.1 MEQ/L 22.8 MEQ/L Anion Gap 16 MEQ/L 9 MEQ/L Blood Urea Nitrogen 41 MG/DL 31 MG/DL Creatinine 1.91 MG/DL 1.37 MG/DL Estimat Glomerular Filtration 34 ML/MIN 50 ML/MIN Rate Random Glucose 537 MG/DL 323 MG/DL Calcium Level 8.9 MG/DL 7.6 MG/DL Phosphorus Level 0.7 MG/DL Magnesium Level 2.4 MG/DL Lactic Acid Level 4.4 mmol/L Date/Time Procedure Status Source Growth 06/04/16 13:37 Gram Stain Received Sputum Endotracheal Pending 06/04/16 13:37 Sputum Culture Received Sputum Endotracheal Pending 06/04/16 02:30 Urine Culture Received Urine Catheterized Urine Pending 06/04/16 02:30 Aerobic Blood Culture Received Blood Peripheral Pending 06/04/16 02:30 Anaerobic Blood Culture Received Blood Peripheral Pending Physical Examination HEENT: Pupils round and reactive to light; normocephalic; atraumatic; no jaundice. Throat is clear. Intubated NECK: Neck is supple, no JVD, no lymphadenopathy. CHEST: Chest is clear to auscultation and percussion. CARDIAC: Regular rate and rhythm with no murmur gallop or rubs. ABDOMEN: Soft, nondistended, nontender; no hepatosplenomegaly; bowel sounds are present in all four quadrants. PEG site is clean Mckeon catheter noted to be inserted into the PEG site EXTREMITIES: No clubbing, cyanosis, or edema. SKIN: Normal; no rash; no jaundice. KETTLE COOK: Intubated unresponsive Assessment and Plan Plan Patient with a Mckeon catheter functioning is a PEG tube this was removed and a standardized PEG replacement tube was inserted without any complications The patient is cleared to use the PEG tube for medications and feeding We will sign off Stu Henson MD Jun 04, 2016 19:28
--- NOTE | 2016-06-04 19:30 | PD.ID.CON ---
History of Present Illness Service ID Consult Requested By Dr Ruiz Reason for Consult UTI, sepsis Primary Care Physician Non-Staff Diagnoses: History of Present Illness 80 yo male demiented, non verbal presents from [facility] halfway with fever 102 , resp distress Pt was int'd placed on mech vent'n He is severely dehydrated He initially responded to IV fluids, now BP is bordeline UOP is adequate Sodium is 171, lactic acid 4.4 Also leukocytosis, prominent bandemia Clear lungs on admission CXR Abnormal UA with pyuria, innumerable WBC Blood, sputum and urine cultures are P Review of Systems ROS Limitations: Clinical Condition, Altered Mental Status Past Family Social History Allergies: Coded Allergies: No Known Allergies (Unverified , 01/04/16) Active Ordered Medications Medications where reviewed in EMR Antibiotics Include: Zosyn, vancomycin Physical Exam Vital Signs Vital Signs Date Time Temp Pulse Resp B/P Pulse Ox O2 Delivery O2 Flow Rate FiO2 06/04/16 18:00 64 06/04/16 16:34 100 40 06/04/16 16:00 99.0 70 17 91/64 97 06/04/16 16:00 40 06/04/16 16:00 70 06/04/16 14:00 74 06/04/16 12:34 40 06/04/16 12:26 99 40 06/04/16 12:00 100.4 86 17 113/57 97 06/04/16 12:00 86 06/04/16 12:00 40 06/04/16 10:00 86 06/04/16 08:39 97 40 06/04/16 08:00 113 06/04/16 08:00 102.7 114 29 131/80 98 06/04/16 08:00 40 06/04/16 06:00 103.4 120 19 124/74 97 06/04/16 05:25 103.4 122 18 132/79 95 06/04/16 05:15 120 06/04/16 05:15 60 06/04/16 05:00 98 100 06/04/16 04:25 60 06/04/16 04:20 122 14 128/78 99 Ventilator 60 06/04/16 04:20 96 60 06/04/16 04:01 122 14 123/79 96 Ventilator 75 06/04/16 03:56 93 75 06/04/16 03:37 100 35 06/04/16 03:32 121 14 161/75 100 Ventilator 60 06/04/16 02:59 60 06/04/16 02:55 118 14 147/79 100 Ventilator 60 06/04/16 02:50 96 60 06/04/16 02:47 119 16 121/74 99 06/04/16 02:40 94 Nasal Cannula 3 06/04/16 02:40 40 94 Nasal Cannula 2 06/04/16 02:35 128 40 92 Nasal Cannula 06/04/16 02:33 103.7 128 40 131/75 92 Physical Exam CONSTITUTIONAL/GENERAL: This is an adequately nourished patient, unresponsive TUBES/LINES/DRAINS: SKIN: No jaundice, rashes, or lesions. Skin temperature appropriate. Not diaphoretic. HEAD: Atraumatic. Normocephalic. EYES: Pupils equal and round and reactive. No scleral icterus. No injection or drainage. Fundi not examined. ENT: Hearing not tested. Nose without bleeding or purulent drainage. oral mucosae dry, without visible erythema, exudates, masses, or lesions. NECK: Trachea midline. Supple, nontender. CARDIOVASCULAR: Regular rate and rhythm without murmurs, gallops, or rubs. No JVD. Peripheral pulses symmetric. RESPIRATORY/CHEST: Symmetric, unlabored respirations. Clear to auscultation. Breath sounds equal bilaterally. No wheezes, rales, or rhonchi. GASTROINTESTINAL: Abdomen soft, non-tender, nondistended. No hepato-splenomegaly , or palpable masses. No guarding. Bowel sounds present. GENITOURINARY: Without palpable bladder distension. Mckeon catheter in place with cloudy urine MUSCULOSKELETAL: Extremities without clubbing, cyanosis, or edema. No joint tenderness or effusion noted. No calf tenderness. No mottling or clubbing. LYMPHATICS: No palpable cervical or supraclavicular adenopathy. NEUROLOGICAL: comatose; nonverbal; not responsive PSYCHIATRIC: unable to respond Laboratory Laboratory Tests Test 06/04/16 06/04/16 06/04/16 06/04/16 02:30 03:22 05:30 06:10 White Blood Count 11.5 Red Blood Count 6.15 Hemoglobin 17.1 Hematocrit 55.3 Mean Corpuscular Volume 90.0 Mean Corpuscular Hemoglobin 27.7 Mean Corpuscular Hemoglobin 30.8 Concent Red Cell Distribution Width 18.9 Platelet Count 162 Mean Platelet Volume 10.3 Neutrophils (%) (Auto) 81.3 Lymphocytes (%) (Auto) 12.3 Monocytes (%) (Auto) 5.7 Eosinophils (%) (Auto) 0.1 Basophils (%) (Auto) 0.6 Neutrophils # (Auto) 9.3 Lymphocytes # (Auto) 1.4 Monocytes # (Auto) 0.7 Eosinophils # (Auto) 0.0 Basophils # (Auto) 0.1 CBC Comment AUTO DIFF Differential Total Cells 100 Counted Neutrophils % (Manual) 60 Band Neutrophils % 24 Lymphocytes % 12 Monocytes % 2 Basophils % 1 Neutrophils # (Manual) 9.8 Metamyelocytes 1 Nucleated Red Blood Cells 3 Differential Comment FINAL DIFF MANUAL Platelet Estimate NORMAL Platelet Morphology Comment NORMAL Urine Color YELLOW Urine Turbidity HAZY Urine pH 5.5 Urine Specific [place] 1.031 Urine Protein 100 Urine Glucose (UA) 1000 Urine Ketones TRACE Urine Occult Blood MOD Urine Nitrite NEG Urine Bilirubin NEG Urine Urobilinogen LESS THAN 2.0 Urine Leukocyte Esterase LARGE Urine RBC 24 Urine WBC Urine WBC Clumps MANY Urine Squamous Epithelial <1 Cells Urine Bacteria MOD Urine Mucus FEW Microscopic Urinalysis Comment CATH-CULTURE IND Sodium Level 163 Potassium Level 3.8 Chloride Level 122 Carbon Dioxide Level 24.0 Anion Gap 17 Blood Urea Nitrogen 48 Creatinine 2.03 Estimat Glomerular Filtration 32 Rate Random Glucose 577 541 Lactic Acid Level 6.0 6.0 Calcium Level 9.7 Total Bilirubin 1.3 Aspartate Amino Transf 22 (AST/SGOT) Alanine Aminotransferase 42 (ALT/SGPT) Alkaline Phosphatase 75 Total Protein 9.0 Albumin 3.2 Blood Gas Puncture Site RT RADIAL Blood Gas Patient Temperature 98.6 Blood Gas HCO3 20 Blood Gas Base Excess -3.7 Blood Gas Oxygen Saturation 96 Arterial Blood pH 7.46 Arterial Blood Partial 28 Pressure CO2 Arterial Blood Partial 225 Pressure O2 Arterial Blood Oxygen Content 20.9 Arterial Blood 2.3 Carboxyhemoglobin Arterial Blood Methemoglobin 1.7 Blood Gas Hemoglobin 15.2 Oxygen Delivery Device VENTILATOR Blood Gas Ventilator Setting AC/14/600/PEEP5 Blood Gas Inspired Oxygen 60 Nasal Screen MRSA (PCR) NEGATIVE Test 06/04/16 06/04/16 06/04/16 08:48 13:31 13:36 Prothrombin Time 12.7 Prothromb Time International 1.1 Ratio Sodium Level 165 171 Potassium Level 3.4 2.5 Chloride Level 127 139 Carbon Dioxide Level 22.1 22.8 Anion Gap 16 9 Blood Urea Nitrogen 41 31 Creatinine 1.91 1.37 Estimat Glomerular Filtration 34 50 Rate Random Glucose 537 323 Calcium Level 8.9 7.6 Phosphorus Level 0.7 Magnesium Level 2.4 Lactic Acid Level 4.4 Date/Time Procedure Status Source Growth 06/04/16 13:37 Gram Stain Received Sputum Endotracheal Pending 06/04/16 13:37 Sputum Culture Received Sputum Endotracheal Pending 06/04/16 02:30 Urine Culture Received Urine Catheterized Urine Pending 06/04/16 02:30 Aerobic Blood Culture Received Blood Peripheral Pending 06/04/16 02:30 Anaerobic Blood Culture Received Blood Peripheral Pending Result Diagram: 06/04/16 0230 06/04/16 1331 Imaging Last Impressions Chest X-Ray 06/04/16 0219 Signed Impressions: Service Date/Time: Saturday, June 04, 2016 03:19 - CONCLUSION: 1. Satisfactory position of endotracheal tube as above. Rachid Lopez MD Assessment and Plan Assessment and Plan UTI, sepsis ARF, improved Acute VDRF - intubated - cont zosyn, adjust per renal - vancomycin, adjust per renal - monitor blood and urine cultures Discussed Condition With Elle Merida RN, MD Jun 04, 2016 19:30
[2016-06-04 20:49] LABS: BICARBONATE 22.2 MEQ/L (21.0-32.0); POTASSIUM 3.3 MEQ/L (3.5-5.1)
[2016-06-04 21:15] LABS: CALCIUM-PROTEIN CORRECTED 7.9 MG/DL (8.5-10.1)
[2016-06-04] MEDS: POTASSIUM PHOSPHATE INJ 30 MMOL in SODIUM CHLOR 0.9% 250 ML INJ 250 ML IV PRN (21:40)
[2016-06-05] VITALS (24 sets, daily range): BP systolic 104–136; BP diastolic 55–77; PULSE 61–85; RESP 14–25; TEMP 96.4–100.2; O2SAT 96–100
[2016-06-05] MEDS: PIPERACIL-TAZO 2.25 GM PREMIX 50 ML IV SCH ×3 (00:37→12:17)
[2016-06-05] MEDS: LACTATED RINGER'S 1000 ML INJ 1,000 ML IV SCH ×3 (01:45→18:23)
[2016-06-05 02:58] LABS: BICARBONATE 22.3 MEQ/L (21.0-32.0); POTASSIUM 3.3 MEQ/L (3.5-5.1)
[2016-06-05 03:16] LABS: CALCIUM-PROTEIN CORRECTED 8.1 MG/DL (8.5-10.1)
[2016-06-05] MEDS ORDERED: INSULIN REGULAR 100 UNITS/100 ML NS ALGORITHM 2 IV SCH ×2 (04:00)
[2016-06-05] MEDS ORDERED: MISC INFORMATION XX ONE (04:00)
[2016-06-05] MEDS: CHLORHEXIDINE GLUCONATE 2 % 1 PACK (2 CLOTHS) TOP SCH (04:00)
[2016-06-05] MEDS ORDERED: DEXTROSE 50% IN WATER 50 ML VIAL(D50) IV PUSH PRN ×2 (04:00→12:00)
[2016-06-05] MEDS: FREE WATER G-TUBE SCH ×6 (04:00→20:00)
[2016-06-05 05:48] LABS: AUTOMATED NEUTROPHIL # 6.3 TH/MM3 (1.8-7.7); BASOPHIL % 0.4 % (0.0-2.0); EOSINOPHIL # 0.3 TH/MM3 (0-0.4); EOSINOPHIL % 3.3 % (0.0-4.0); HEMATOCRIT 31.5 % (39.0-51.0); LYMPH % 16.6 % (9.0-44.0); LYMPHOCYTE # 1.3 TH/MM3 (1.0-4.8); MEAN CELL VOLUME 85.8 FL (80.0-100.0); MEAN CORPUSCULAR HEMOGLOBIN 27.6 PG (27.0-34.0); MEAN CORPUSCULAR HGB CONC 32.2 % (32.0-36.0); MONO % 2.9 % (0.0-8.0); NEUT % 76.8 % (16.0-70.0); PLATELET COUNT 79 TH/MM3 (150-450); RED BLOOD COUNT 3.66 MIL/MM3 (4.50-5.90); RED CELL DISTRIBUTION WIDTH 17.9 % (11.6-17.2); WHITE BLOOD COUNT 8.1 TH/MM3 (4.0-11.0)
[2016-06-05 05:51] LABS: HEMO FLAGS AUTO DIFF
[2016-06-05 06:17] LABS: BICARBONATE 24.2 MEQ/L (21.0-32.0); MAGNESIUM 1.9 MG/DL (1.5-2.5); POTASSIUM 3.1 MEQ/L (3.5-5.1)
[2016-06-05] MEDS: PROPOFOL 1000 MG/100 ML INJ 100 ML IV SCH ×2 (06:30→21:02)
[2016-06-05] MEDS: POTASSIUM CHLOR 40 MEQ PREMIX 100 ML IV PRN ×3 (06:30→09:18)
[2016-06-05 06:34] LABS: CALCIUM-PROTEIN CORRECTED 7.7 MG/DL (8.5-10.1)
[2016-06-05 07:11] LABS: PLATELET ESTIMATE SMEAR LOW (NORMAL); PLATELET MORPHOLOGY NORMAL (NORMAL); SCAN/DIFF AUTO DIFF CONFIRMED
[2016-06-05] MEDS: SODIUM CHLORIDE 0.9% FLUSH 5 ML FLUSH IV FLUSH SCH ×2 (08:10→21:01)
[2016-06-05] MEDS: HEPARIN SODIUM - SQ 10,000 UNITS/ML VIAL SQ SCH (08:10)
[2016-06-05] MEDS: PANTOPRAZOLE SODIUM 40 MG VIAL IV SCH (08:10)
--- NOTE | 2016-06-05 08:54 | HHI.CCPN ---
Subjective Remarks/Hospital Course 80 y/o NH patient with severe dehydration, UTI sepsis, respiratory failure admitted earlier. Nonverbal, minimally responsive. Cachectic, anasarca. 06/05 Patient is sedated with Diprivan and intubated. On Insulin drip. PEG tube was replaced by GI yesterday. Objective Vital Signs Date Time Temp Pulse Resp B/P Pulse Ox O2 Delivery O2 Flow Rate FiO2 06/05/16 08:00 30 06/05/16 08:00 97.8 82 24 112/77 96 06/04/16 04:20 Ventilator 06/04/16 02:40 3.00 Intake and Output 06/04/16 06/04/16 06/05/16 08:00 16:00 00:00 Intake Total 119 ml 4307 ml 3860 ml Output Total 275 ml 800 ml 300 ml Balance -156 ml 3507 ml 3560 ml Result Diagram: 06/05/16 0528 06/05/16 0528 Other Results Laboratory Tests Test 06/04/16 06/04/16 06/04/16 06/04/16 08:48 13:31 13:36 20:02 Prothrombin Time 12.7 SEC Prothromb Time International 1.1 RATIO Ratio Sodium Level 165 MEQ/L 171 MEQ/L 161 MEQ/L Potassium Level 3.4 MEQ/L 2.5 MEQ/L 3.3 MEQ/L Chloride Level 127 MEQ/L 139 MEQ/L 131 MEQ/L Carbon Dioxide Level 22.1 MEQ/L 22.8 MEQ/L 22.2 MEQ/L Anion Gap 16 MEQ/L 9 MEQ/L 8 MEQ/L Blood Urea Nitrogen 41 MG/DL 31 MG/DL 24 MG/DL Creatinine 1.91 MG/DL 1.37 MG/DL 1.01 MG/DL Estimat Glomerular Filtration 34 ML/MIN 50 ML/MIN 71 ML/MIN Rate Random Glucose 537 MG/DL 323 MG/DL 314 MG/DL Calcium Level 8.9 MG/DL 7.6 MG/DL 7.1 MG/DL Phosphorus Level 0.7 MG/DL 0.7 MG/DL Magnesium Level 2.4 MG/DL 2.0 MG/DL Lactic Acid Level 4.4 mmol/L Protein Corrected Calcium 7.9 MG/DL Total Protein 5.6 GM/DL Test 06/05/16 06/05/16 06/05/16 02:12 05:28 05:29 Sodium Level 158 MEQ/L 157 MEQ/L Potassium Level 3.3 MEQ/L 3.1 MEQ/L Chloride Level 127 MEQ/L 127 MEQ/L Carbon Dioxide Level 22.3 MEQ/L 24.2 MEQ/L Anion Gap 9 MEQ/L 6 MEQ/L Blood Urea Nitrogen 19 MG/DL 17 MG/DL Creatinine 1.01 MG/DL 0.90 MG/DL Estimat Glomerular Filtration 71 ML/MIN 81 ML/MIN Rate Random Glucose 327 MG/DL 234 MG/DL Calcium Level 7.2 MG/DL 6.9 MG/DL Protein Corrected Calcium 8.1 MG/DL 7.7 MG/DL Phosphorus Level 2.5 MG/DL 2.6 MG/DL Magnesium Level 2.0 MG/DL 1.9 MG/DL Total Protein 5.4 GM/DL 5.5 GM/DL White Blood Count 8.1 TH/MM3 Red Blood Count 3.66 MIL/MM3 Hemoglobin 10.1 GM/DL Hematocrit 31.5 % Mean Corpuscular Volume 85.8 FL Mean Corpuscular Hemoglobin 27.6 PG Mean Corpuscular Hemoglobin 32.2 % Concent Red Cell Distribution Width 17.9 % Platelet Count 79 TH/MM3 Mean Platelet Volume 9.5 FL Neutrophils (%) (Auto) 76.8 % Lymphocytes (%) (Auto) 16.6 % Monocytes (%) (Auto) 2.9 % Eosinophils (%) (Auto) 3.3 % Basophils (%) (Auto) 0.4 % Neutrophils # (Auto) 6.3 TH/MM3 Lymphocytes # (Auto) 1.3 TH/MM3 Monocytes # (Auto) 0.2 TH/MM3 Eosinophils # (Auto) 0.3 TH/MM3 Basophils # (Auto) 0.0 TH/MM3 CBC Comment AUTO DIFF Differential Comment AUTO DIFF CONFIRMED Platelet Estimate LOW Platelet Morphology Comment NORMAL Lactic Acid Level 2.6 mmol/L Imaging Last Impressions Chest X-Ray 06/04/16 0219 Signed Impressions: Service Date/Time: Saturday, June 04, 2016 03:19 - CONCLUSION: 1. Satisfactory position of endotracheal tube as above. Rachid Lopez MD Objective Remarks GENERAL: Patient is 80 yo sedated and intubated SKIN: Warm and dry. HEAD: Normocephalic. EYES: No scleral icterus. No injection or drainage. NECK: Supple, trachea midline. No JVD or lymphadenopathy. CARDIOVASCULAR: Regular rate and rhythm without murmurs, gallops, or rubs. RESPIRATORY: Breath sounds equal bilaterally. No accessory muscle use. GASTROINTESTINAL: Abdomen soft, non-tender, nondistended. PEG tube is in place MUSCULOSKELETAL: No cyanosis, or edema. Contracted. Neuro: Sedated, intubated A/P Problem List: (1) Severe sepsis with acute organ dysfunction ICD Code: A41.9 Status: Acute (2) Acute respiratory failure ICD Code: J96.00 Status: Acute (3) UTI (urinary tract infection) ICD Code: N39.0 Status: Acute (4) Alzheimer's dementia ICD Code: F02.80 Status: Acute (5) Fever ICD Code: R50.9 Status: Acute (6) Global aphasia ICD Code: R47.02 Status: Acute Assessment and Plan 1)VDRF 2) Severe sepsis. 3) UTI. 4)Hyperglycemia 5)Hypernatremia, hypokalemia 6)Lactic acidemia..trending down 7)Dehydration 8)Anemia, thrombocytopenia 9) Protein Calorie Malnutrition. 10) Dementia, advanced. Nonverbal. Plan: Neuro: On Diprivan infusion for sedation, daily sedation vacation. Monitor neuro status. Pulm: Continue with vent support keep sat >92% Bronchodilators, ICU vent bundle. CV:Monitor HR and BP keep MAP>65mmHg Serial lactic acid monitoring. Lactic acid 2.6 this morning from 6.0 on arrival. Continue with IVF : Monitor renal function, I/O's, electrolytes replacement per protocol. Will need K replacement today. On Free water 300ml Q4, LR@150ml/hr, monitor sodium level. GI: Start TF -Glucerna 1.5 with goal rate 50ml/hr via PEG tube On Protonix.for GI prophylaxis Heme: Monitor CBC ID: Continue with abx ( Vanco, Zosyn) ID is following, follow up on cxs from 9 Blood, sputum, urine) Endo: On Insulin drip log#2, Will wean off insulin drip and transition to SSI GI prophylaxis- on Protonix 40mg daily DVT prophylaxis- hold Heparin SQ ( thrombocytopenia) Lines: Right subclavian CVP placed 06/04 Consult palliative care to asses with goals of care. CCT 30 mins Janusz Cardenas MD Jun 05, 2016 08:54
[2016-06-05] MEDS: RESP: ALBUTEROL 2.5 MG/IPRATROPIUM 0.5 MG NEB (SCH) NEB ×3 (09:51→20:29)
[2016-06-05] MEDS ORDERED: CALCIUM GLUCONATE INJ 1 GM in SODIUM CHLORIDE 0.9% INJ 100 ML IV ONE (10:00)
[2016-06-05] MEDS ORDERED: VANCOMYCIN 1,000 MG/NS 250 ML IV SCH ×2 (10:00)
[2016-06-05 10:32] LABS: BICARBONATE 20.5 MEQ/L (21.0-32.0); POTASSIUM 3.8 MEQ/L (3.5-5.1)
[2016-06-05 10:46] LABS: CALCIUM-PROTEIN CORRECTED 7.9 MG/DL (8.5-10.1)
[2016-06-05] MEDS ORDERED: GLUCAGON 1 MG/ML VIAL OTHER PRN (12:00)
[2016-06-05] MEDS: INSULIN NovoLIN REGULAR SUPPLEMENTAL SCALE SQ SCH ×3 (12:17→21:01)
[2016-06-05 15:56] LABS: BICARBONATE 23.5 MEQ/L (21.0-32.0)
[2016-06-05] MEDS: PIPERACIL-TAZO 3.375 GM PREMIX 50 ML IV SCH (20:59)
[2016-06-06] VITALS (19 sets, daily range): BP systolic 96–151; BP diastolic 51–68; PULSE 74–92; RESP 16–28; TEMP 98.7–101.4; O2SAT 95–100
[2016-06-06] MEDS: INSULIN NovoLIN REGULAR SUPPLEMENTAL SCALE SQ SCH ×6 (00:09→21:19)
[2016-06-06 03:55] LABS: AUTOMATED NEUTROPHIL # 7.6 TH/MM3 (1.8-7.7); BASOPHIL % 0.4 % (0.0-2.0); EOSINOPHIL # 0.3 TH/MM3 (0-0.4); EOSINOPHIL % 3.1 % (0.0-4.0); HEMATOCRIT 32.4 % (39.0-51.0); LYMPH % 11.3 % (9.0-44.0); LYMPHOCYTE # 1.1 TH/MM3 (1.0-4.8); MEAN CELL VOLUME 84.5 FL (80.0-100.0); MEAN CORPUSCULAR HEMOGLOBIN 27.6 PG (27.0-34.0); MEAN CORPUSCULAR HGB CONC 32.7 % (32.0-36.0); MONO % 3.3 % (0.0-8.0); NEUT % 81.9 % (16.0-70.0); PLATELET COUNT 86 TH/MM3 (150-450); RED BLOOD COUNT 3.83 MIL/MM3 (4.50-5.90); RED CELL DISTRIBUTION WIDTH 17.2 % (11.6-17.2); WHITE BLOOD COUNT 9.3 TH/MM3 (4.0-11.0)
[2016-06-06 03:59] LABS: HEMO FLAGS AUTO DIFF
[2016-06-06] MEDS: FREE WATER G-TUBE SCH ×6 (04:00→20:00)
[2016-06-06] MEDS: CHLORHEXIDINE GLUCONATE 2 % 1 PACK (2 CLOTHS) TOP SCH (04:00)
[2016-06-06] MEDS: RESP: ALBUTEROL 2.5 MG/IPRATROPIUM 0.5 MG NEB (SCH) NEB ×4 (04:00→20:14)
[2016-06-06 04:22] LABS: BICARBONATE 25.4 MEQ/L (21.0-32.0); MAGNESIUM 2.3 MG/DL (1.5-2.5); POTASSIUM 3.6 MEQ/L (3.5-5.1)
[2016-06-06] MEDS: PIPERACIL-TAZO 3.375 GM PREMIX 50 ML IV SCH ×3 (04:31→21:21)
[2016-06-06 05:10] LABS: BLOOD GAS BASE EXCESS -1.9 mmol/L (-2-2); BLOOD GAS CARBOXYHEMOGLOBIN 1.9 % (0-4); BLOOD GAS HCO3 22 mmol/L (22-26); BLOOD GAS METHEMOGLOBIN 0.9 % (0-2); BLOOD GAS O2 HGB SATURATION 93 % (90-100); BLOOD GAS OXYGEN CONTENT 15.2 Vol % (12.0-20.0); BLOOD GAS PCO2 33 mmHg (38-42); BLOOD GAS PO2 78 mmHg (61-120); BLOOD GAS TOTAL HGB 11.6 G/DL (12.0-16.0); CRITICAL VALUE NO; FIO2 30 %; OXYGEN DEVICE VENTILATOR; TEMP CORR TO 98.6
[2016-06-06 05:11] LABS: DRAW SITE LT RADIAL; NUMBER OF ARTERIAL PUNCTURES 1; STAT NO; ULNAR PULSE PRESENT
--- NOTE | 2016-06-06 06:22 | RADRPT ---
EXAM DATE/TIME: 06/06/2016 04:44 [facility] COMPARISON: CHEST SINGLE AP, June 04, 2016, 10:44. INDICATIONS : Short of breath. MEDICAL HISTORY : Failure to thrive. Anorexia. Contractures. BHP. SURGICAL HISTORY : G-tube placement. ENCOUNTER: Subsequent ACUITY: 3 days PAIN SCORE: Non-responsive. LOCATION: Bilateral chest FINDINGS: Endotracheal tube is present with tip just above the dario. Nasogastric tube has been removed. Left subclavian central catheter is stable and satisfactory position. There has been some worsening aerati on with development of basilar infiltrates, now obscuring the diaphragms. Cardiac contours are grossl y stable. CONCLUSION: Worsening basilar infiltrates. Gary Mcgee MD on June 06, 2016 at 6:19 Board Certified Radiologist. This report was verified electronically.
[2016-06-06 07:03] LABS: BANDS 2 % (0-6); EOSINOPHILS 4 % (0-4); NEUTROPHIL # MANUAL DIFF 7.7 TH/MM3 (1.8-7.7); POLYS (SEG NEUTROPHILS) 81 % (16-70); WBC DIFF SAMPLE 100
[2016-06-06 07:04] LABS: PLATELET ESTIMATE SMEAR LOW (NORMAL); PLATELET MORPHOLOGY NORMAL (NORMAL); SCAN/DIFF FINAL DIFF MANUAL
[2016-06-06] MEDS: SODIUM CHLOR 0.45% 1000 ML INJ 1,000 ML IV SCH (08:26)
[2016-06-06] MEDS: PANTOPRAZOLE SODIUM 40 MG VIAL IV SCH (08:28)
[2016-06-06] MEDS: SODIUM CHLORIDE 0.9% FLUSH 5 ML FLUSH IV FLUSH SCH (08:29)
[2016-06-06] MEDS ORDERED: VANCOMYCIN INJ 1,250 MG in SODIUM CHLOR 0.9% 250 ML INJ 250 ML IV SCH ×2 (10:00)
[2016-06-06 10:31] LABS: BICARBONATE 24.4 MEQ/L (21.0-32.0); POTASSIUM 3.2 MEQ/L (3.5-5.1)
--- NOTE | 2016-06-06 11:59 | PD.CONS ---
Consult Service Palliative Care Consult Requested By Dr. Cardenas. . Primary Care Physician Non-Staff. . Reason for Consultation a. To assist with evaluation and management of symptoms including: debility and shortness of breath. b. To assist medical decision maker(s) with: better understanding of current medical conditions; weighing benefits/burdens of medical treatment options; making medical treatment decisions. . (Charlotte Hall) HPI History of Present Illness Mr. Amin is an 80 y/o male with a medical history significant for severe Alzheimer's dementia, anxiety, BPH and HNT who is bedbound and non-verbal at baseline. On 06/04/16, patient presented to ED from his SNF with reports of fever. Upon arrival, patient presented with tachypnea with O2 sat in the 80's, fever of 103.7 and altered mental status. Patient was emergently intubated secondary to inability to protect his airway. Patient was subsequently transferred to the ICU for management of severe sepsis with shock. ED workup as follow: * WBC 11.5, Hgb 17.1, Pl 162. Na 165, K 3.4. * Lactic acid 6.0 * Glucose 541, BUN/Creat 41/1.91. * Urine culture 06/04 growing Enterobacter Cloacae. Blood and sputum cultures with no growth this far. Patient with history of Peg tube placed on 11/24/2014. Presented with Mckeon catheter in his PEG site as oppose to PEG tube. GI Dr. Henson was consulted and PEG was replaced on 06/04/16. ID Dr. Cardenas consulted secondary to sepsis. Patient was continued on Zosyn and Vancomycin. Patient seen today in ICU. Remains intubated and minimally sedated, currently on CPAP trials. Tolerated CPAP yesterday for approximately 5 hours. Non- responsive, or opening eyes to voice or tactile stimuli. Not following commands. Appears comfortable with no signs of pain or discomfort. Spoke with son Ragesh over the phone. Patient's is also elderly and is deferring conversations to son. Medical update provided. Son tells me that patient has been residing in SNF for the past 4 years secondary to severe dementia. He has continued to decline and is currently bedbound, non-verbal at baseline. PEG tube was placed in November 2014 secondary to dysphagia, pt has continued loosing weight since. Son reports that prior to PEG placement, patient was bed to wheelchair existence but after November 2014, patient has been totally bedbound and fully dependent of care. Son tells me that no living will or advance directives has been completed and that no discussions regarding medical treatment or goals of care have been done prior to patient's continued decline. Son tells me that SNF has asked his mother in several occasions regarding goals of care and/or code status. Son reports that his mother (pt's ) is very "old fashioned" and that she dislike discussing this topic. As per son, it is the family's wishes for continuation of aggressive care with the goal of pt returning to his SNF once extubated. Palliative care contact information provided, son verbalized appreciation for today's call and medical update. Family may visit patient tonight -They live in [place]. Case discussed with bedside RN. . Function/Cognitive Trajectory Severe Alzheimer's disease. Patient has been residing in SNF for the past 4 years secondary to severe dementia. He has continued to decline and is currently bedbound, non-verbal at baseline. PEG tube was placed in November 2014 secondary to dysphagia, pt has continued loosing weight since. Son reports that prior to PEG placement, patient was bed to wheelchair existence but after November 2014, patient has been totally bedbound and fully dependent of care. . (Charlotte Hall) Review of Systems ROS Limitations: Clinical Condition, Intubated, Altered Mental Status, Unresponsive Constitutional: COMPLAINS OF: Fever, Weight loss, Generalized weakness Eyes: COMPLAINS OF: Vision loss, DENIES: Eye inflammation Ears, nose, mouth, throat: COMPLAINS OF: Hearing loss, DENIES: Nasal discharge Respiratory: DENIES: Apneas, Cough Cardiovascular: DENIES: Syncope Gastrointestinal: DENIES: Abdominal pain, Diarrhea, Nausea, Vomiting Musculoskeletal: COMPLAINS OF: Stiffness Integumentary: DENIES: Abnormal pigmentation Hematologic/Lymphatics: DENIES: Bruising Neurologic: COMPLAINS OF: Abnormal gait Psychiatric: DENIES: Anxiety Other ROS: Limited ROS secondary to clinical condition; intubated, sedated, severe dementia at baseline. ROS obtained from medical records, son's report and clinical observation. . (Charlotte Hall) Past Family Social History Coded Allergies: *MDRO Multi-Drug Resistant Organism (Verified Adverse Reaction, Unknown, ) MRSA (sputum) - 06/28/16 Past Medical History Alzheimer's disease Advanced dementia HTN Anxiety BPH GERD Failure to thrive, s/p PEG placement in November 2014 Contractures of BLE . Past Surgical History Peg placement in November 2014 Reported Medications Multivitamin Adults via PEG DAILY Acidophilus1 Cap via PEG daily Ammonium Lactate (Lactic Acid) 12 % Cre 1 Applic TOP BID Tylenol 650mg Via PEG as needed for pain . Current Medications Medications (Trade) Dose Ordered Sig/Estefany Route Start Time Stop Time Status Last Admin (NS Flush) 2 ml UNSCH PRN IV FLUSH 06/04/16 04:15 (NS Flush) 2 ml BID IV FLUSH 06/04/16 09:00 06/06/16 08:29 (Tylenol) 650 mg Q6H PRN PO 06/04/16 04:15 (Morphine Inj) 2 mg Q2H PRN IV 06/04/16 04:15 (Protonix Inj) 40 mg DAILY IV 06/04/16 09:00 06/06/16 08:28 (Zofran Inj) 4 mg Q6H PRN IV 06/04/16 04:15 (Heparin Inj) 5,000 units Q12HR SQ 06/04/16 09:00 Hold 06/05/16 08:10 Miscellaneous Information 1 Q361D XX 06/04/16 04:15 06/04/16 04:15 (Chlorhexidine 2% Cloth) 3 pack Taper DAILY@04 TOP 06/05/16 04:00 06/01/17 03:59 06/06/16 04:00 Chlorhexidine Gluconate 3 pack 3 pack UNSCH PRN TOP 06/04/16 04:15 Propofol 100 ml @ 0 mls/hr TITRATE IV 06/04/16 04:15 06/05/16 21:02 (Vancomycin Consult Pharmacy) 0 ml @ 0 mls/hr UNSCH OTHER 06/04/16 10:00 Water 300 ml 300 ml Q4HR G-TUBE 06/04/16 16:00 06/06/16 08:00 Potassium Chloride 100 ml @ 50 mls/hr Q2H PRN IV 06/04/16 14:45 06/05/16 09:18 (KCl 20 Meq Premix Inj) 100 ml @ 50 mls/hr Q2H PRN IV 06/04/16 14:45 Potassium Chloride 40 meq 40 meq UNSCH PRN PO/TUBE 06/04/16 14:45 Potassium Chloride 100 ml @ 25 mls/hr UNSCH PRN IV 06/04/16 14:45 Potassium Chloride 100 ml @ 50 mls/hr Q2H PRN IV 06/04/16 14:45 (Magnesium Sulfate Inj/NS Inj) 100 ml @ 50 mls/hr UNSCH PRN IV 06/04/16 14:45 Magnesium Oxide 800 mg 800 mg UNSCH PRN PO 06/04/16 14:45 (Magnesium Sulfate Inj/NS Inj) 100 ml @ 50 mls/hr UNSCH PRN IV 06/04/16 14:45 Potassium Phosphate 2000 mg 2,000 mg Q4H PRN PO 06/04/16 14:45 (Sodium Phosphate Inj/NS 250 ml Inj) 250 ml @ 42 mls/hr UNSCH PRN IV 06/04/16 14:45 (KCl 40 Meq/30 ml Liq) 40 meq UNSCH PRN PO/TUBE 06/04/16 14:45 Potassium Phosphate 2000 mg 2,000 mg UNSCH PRN PO/TUBE 06/04/16 14:45 (Potassium Phosphate Inj/NS 250 ml Inj) 260 ml @ 42 mls/hr UNSCH PRN IV 06/04/16 14:45 06/04/16 21:40 Miscellaneous Information SPECIFIC LAB TO BE ... ONCE ONCE XX 06/08/16 09:45 06/08/16 09:46 (D50w (Vial) Inj) 25 ml UNSCH PRN IV PUSH 06/05/16 12:00 (Glucagon Inj) 1 mg UNSCH PRN OTHER 06/05/16 12:00 Insulin Human Regular 1 1 Q4H SQ 06/05/16 12:00 06/06/16 08:28 Piperacillin Sod/ Tazobactam Sod 50 ml @ 100 mls/hr Q8H IV 06/05/16 20:00 06/06/16 04:31 Sodium Chloride 1,000 ml @ 84 mls/hr [id number] IV 06/06/16 07:45 06/06/16 08:26 (Vancomycin Inj/ NS 250 ml Inj) 262.5 ml @ 262.5 mls/ hr Q24H IV 06/06/16 10:00 06/06/16 10:26 Family History 2 sons who are alive and well. Family unable to provide additional health history. . Substance Use Tobacco: none. Alcohol: none. Prescription med abuse: none. Illicits: none. . Psychosocial History Resident of [facility] for the past 4 years. to [place] for over 50 years. Has 2 sons; Winifred and Milan. 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 Moved to [place] in 1992. . Spiritual/Cultural Factors not spiritual. . (Charlotte Hall) Living Will: Never completed Health Care Surrogate: Never completed Durable Power of Money Laundering Investigator: Never completed Health Care Surrogate(s): No HCS completed. As per [place] law, patient [place] Amin is HCP. also elderly, relying on her sons Winifred and Milan to make healthcare decisions. Documented care wishes: No living will completed. . Today's verbally stated goals: Patient unable to participate in goals of care conversation secondary to severe dementia and clinical status, sedated and intubated. . Family/friends goals: FULL CODE. Family wishing for continuation of aggressive care to include intubation and mech ventilation when medically necessary. Ethical and Legal Issues No living will completed. who is serving as HCP relies on sons for share decision-making. . (Charlotte Hall) Physical Exam Vital Signs Date Time Temp Pulse Resp B/P Pulse Ox O2 Delivery O2 Flow Rate FiO2 06/06/16 10:00 92 06/06/16 09:31 100 Ventilator 30 06/06/16 09:31 30 06/06/16 09:31 100 30 06/06/16 08:00 76 06/06/16 08:00 98.7 76 137/63 97 06/06/16 08:00 30 06/06/16 06:00 91 06/06/16 04:05 100 30 06/06/16 04:00 30 06/06/16 04:00 100.5 82 16 151/67 100 06/06/16 04:00 82 06/06/16 02:00 82 06/06/16 01:15 100 30 06/06/16 00:00 82 06/06/16 00:00 30 06/06/16 00:00 100.4 82 17 96/51 100 06/05/16 22:28 100 30 06/05/16 22:00 81 06/05/16 20:29 99 30 06/05/16 20:00 99.5 82 20 136/64 100 06/05/16 20:00 82 06/05/16 20:00 30 06/05/16 18:00 85 06/05/16 16:00 100.2 80 25 127/59 100 06/05/16 16:00 30 06/05/16 16:00 80 06/05/16 16:00 80 06/05/16 15:07 100 30 06/05/16 15:00 79 06/05/16 14:00 74 06/05/16 14:00 74 06/05/16 13:00 74 06/05/16 12:23 30 06/05/16 12:17 100 30 06/05/16 12:00 98.6 71 21 132/58 100 06/05/16 12:00 73 06/05/16 12:00 72 06/05/16 06/06/16 19:00 07:00 Intake Total 2248 ml 1988 ml Output Total 775 ml 3310.0 ml Balance 1473 ml -1322.0 ml Intake Oral 0 ml IV Total 1549 ml 1013 ml Tube Feeding 99 ml 375 ml Other 600 ml 600 ml Output Urine Total 775 ml 3250 ml Tube Feeding Residual Discard 60.0 ml # Bowel Movements 0 0 Exam CONSTITUTIONAL/GENERAL: This is a frail elderly man in no apparent distress. TUBES/LINES/DRAINS: ETT, OG, PEG, SCD's, PIV's, Left subclavian central line. SKIN: No jaundice or rashes. Scattered ecchymoses on upper extremities. Skin temperature appropriate. Not diaphoretic. Suspected deep tissue ulcer to right inner heel. HEAD: Atraumatic. Normocephalic. EYES: Pupils equal and round and reactive. No scleral icterus. No injection or drainage. ENT: Unable to assess hearing. Nose without bleeding or purulent drainage. Unable to evaluate throat due to ETT. NECK: Trachea midline. Supple, nontender. CARDIOVASCULAR: Regular rate and rhythm without murmurs, gallops, or rubs. No JVD. Weak pedal pulses bilat. RESPIRATORY/CHEST: Symmetric, unlabored respirations. Scattered bilateral coarse Rhonchi. On mech ventilation/CPAP. GASTROINTESTINAL: Abdomen soft, round, large. PEG tube in place. Bowel sounds present. GENITOURINARY: Without palpable bladder distension. Mckeon catheter in place. MUSCULOSKELETAL: +2 edema to BUE, +1 edema to BLE. Bilateral knee contractures noted. NEUROLOGICAL: Sedated. Not following any commands. PSYCHIATRIC: Unable to assess due to clinical condition. Appears calm. . (Charlotte Hall) Diagnostic Tests Laboratory Laboratory Tests Test 06/04/16 06/04/16 06/04/16 06/04/16 02:30 03:22 05:30 06:10 Sodium Level 163 MEQ/L (136-145) Potassium Level 3.8 MEQ/L (3.5-5.1) Chloride Level 122 MEQ/L (98-107) Carbon Dioxide Level 24.0 MEQ/L (21.0-32.0) Anion Gap 17 MEQ/L (5-15) Blood Urea Nitrogen 48 MG/DL (7-18) Creatinine 2.03 MG/DL (0.60-1.30) Estimat Glomerular Filtration 32 ML/MIN (>89) Rate Random Glucose 577 MG/DL 541 MG/DL (74-106) (74-106) Lactic Acid Level 6.0 mmol/L 6.0 mmol/L (0.4-2.0) (0.4-2.0) Calcium Level 9.7 MG/DL (8.5-10.1) Total Bilirubin 1.3 MG/DL (0.2-1.0) Aspartate Amino Transf 22 U/L (15-37) (AST/SGOT) Alanine Aminotransferase 42 U/L (12-78) (ALT/SGPT) Alkaline Phosphatase 75 U/L (45-117) Total Protein 9.0 GM/DL (6.4-8.2) Albumin 3.2 GM/DL (3.4-5.0) White Blood Count 11.5 TH/MM3 (4.0-11.0) Red Blood Count 6.15 MIL/MM3 (4.50-5.90) Hemoglobin 17.1 GM/DL (13.0-17.0) Hematocrit 55.3 % (39.0-51.0) Mean Corpuscular Volume 90.0 FL (80.0-100.0) Mean Corpuscular Hemoglobin 27.7 PG (27.0-34.0) Mean Corpuscular Hemoglobin 30.8 % Concent (32.0-36.0) Red Cell Distribution Width 18.9 % (11.6-17.2) Platelet Count 162 TH/MM3 (150-450) Mean Platelet Volume 10.3 FL (7.0-11.0) Neutrophils (%) (Auto) 81.3 % (16.0-70.0) Lymphocytes (%) (Auto) 12.3 % (9.0-44.0) Monocytes (%) (Auto) 5.7 % (0.0-8.0) Eosinophils (%) (Auto) 0.1 % (0.0-4.0) Basophils (%) (Auto) 0.6 % (0.0-2.0) Neutrophils # (Auto) 9.3 TH/MM3 (1.8-7.7) Lymphocytes # (Auto) 1.4 TH/MM3 (1.0-4.8) Monocytes # (Auto) 0.7 TH/MM3 (0-0.9) Eosinophils # (Auto) 0.0 TH/MM3 (0-0.4) Basophils # (Auto) 0.1 TH/MM3 (0-0.2) CBC Comment AUTO DIFF Differential Total Cells 100 Counted Neutrophils % (Manual) 60 % (16-70) Band Neutrophils % 24 % (0-6) Lymphocytes % 12 % (9-44) Monocytes % 2 % (0-8) Basophils % 1 % (0-2) Neutrophils # (Manual) 9.8 TH/MM3 (1.8-7.7) Metamyelocytes 1 % (0-1) Nucleated Red Blood Cells 3 /100 WBC (0-0) Differential Comment FINAL DIFF MANUAL Platelet Estimate NORMAL (NORMAL) Platelet Morphology Comment NORMAL (NORMAL) Urine Color YELLOW (YELLW/STRAW) Urine Turbidity HAZY (CLEAR) Urine pH 5.5 (5.0-8.5) Urine Specific [place] 1.031 (1.002-1.035) Urine Protein 100 mg/dL (NEG-TRACE) Urine Glucose (UA) 1000 mg/dL (NEG) Urine Ketones TRACE mg/dL (NEG) Urine Occult Blood MOD (NEG) Urine Nitrite NEG (NEG) Urine Bilirubin NEG (NEG) Urine Urobilinogen LESS THAN 2.0 MG/DL (LESS THAN 2.0) Urine Leukocyte Esterase LARGE (NEG) Urine RBC 24 /hpf (0-3) Urine WBC /hpf (0-5) Urine WBC Clumps MANY (NONE) Urine Squamous Epithelial <1 /hpf (0-5) Cells Urine Bacteria MOD /hpf (NONE) Urine Mucus FEW /lpf (OCC) Microscopic Urinalysis Comment CATH-CULTURE IND Blood Gas Puncture Site RT RADIAL Blood Gas Patient Temperature 98.6 Blood Gas HCO3 20 mmol/L (22-26) Blood Gas Base Excess -3.7 mmol/L (-2-2) Blood Gas Oxygen Saturation 96 % (90-100) Arterial Blood pH 7.46 (7.380-7.420) Arterial Blood Partial 28 mmHg (38-42) Pressure CO2 Arterial Blood Partial 225 mmHG Pressure O2 (61-120) Arterial Blood Oxygen Content 20.9 Vol % (12.0-20.0) Arterial Blood 2.3 % (0-4) Carboxyhemoglobin Arterial Blood Methemoglobin 1.7 % (0-2) Blood Gas Hemoglobin 15.2 G/DL (12.0-16.0) Oxygen Delivery Device VENTILATOR Blood Gas Ventilator Setting AC/14/600/PEEP5 Blood Gas Inspired Oxygen 60 % Nasal Screen MRSA (PCR) NEGATIVE (NEGATIVE) Test 06/04/16 06/04/16 06/04/16 06/04/16 08:48 13:31 13:36 20:02 Prothrombin Time 12.7 SEC (9.8-11.6) Prothromb Time International 1.1 RATIO Ratio Sodium Level 165 MEQ/L 171 MEQ/L 161 MEQ/L (136-145) (136-145) (136-145) Potassium Level 3.4 MEQ/L 2.5 MEQ/L 3.3 MEQ/L (3.5-5.1) (3.5-5.1) (3.5-5.1) Chloride Level 127 MEQ/L 139 MEQ/L 131 MEQ/L (98-107) (98-107) (98-107) Carbon Dioxide Level 22.1 MEQ/L 22.8 MEQ/L 22.2 MEQ/L (21.0-32.0) (21.0-32.0) (21.0-32.0) Anion Gap 16 MEQ/L (5-15) 9 MEQ/L (5-15) 8 MEQ/L (5-15) Blood Urea Nitrogen 41 MG/DL (7-18) 31 MG/DL (7-18) 24 MG/DL (7-18) Creatinine 1.91 MG/DL 1.37 MG/DL 1.01 MG/DL (0.60-1.30) (0.60-1.30) (0.60-1.30) Estimat Glomerular Filtration 34 ML/MIN (>89) 50 ML/MIN (>89) 71 ML/MIN (>89) Rate Random Glucose 537 MG/DL 323 MG/DL 314 MG/DL (74-106) (74-106) (74-106) Calcium Level 8.9 MG/DL 7.6 MG/DL 7.1 MG/DL (8.5-10.1) (8.5-10.1) (8.5-10.1) Phosphorus Level 0.7 MG/DL 0.7 MG/DL (2.5-4.9) (2.5-4.9) Magnesium Level 2.4 MG/DL 2.0 MG/DL (1.5-2.5) (1.5-2.5) Lactic Acid Level 4.4 mmol/L (0.4-2.0) Protein Corrected Calcium 7.9 MG/DL (8.5-10.1) Total Protein 5.6 GM/DL (6.4-8.2) Test 06/05/16 06/05/16 06/05/16 06/05/16 02:12 05:28 05:29 07:55 Sodium Level 158 MEQ/L 157 MEQ/L (136-145) (136-145) Potassium Level 3.3 MEQ/L 3.1 MEQ/L (3.5-5.1) (3.5-5.1) Chloride Level 127 MEQ/L 127 MEQ/L (98-107) (98-107) Carbon Dioxide Level 22.3 MEQ/L 24.2 MEQ/L (21.0-32.0) (21.0-32.0) Anion Gap 9 MEQ/L (5-15) 6 MEQ/L (5-15) Blood Urea Nitrogen 19 MG/DL (7-18) 17 MG/DL (7-18) Creatinine 1.01 MG/DL 0.90 MG/DL (0.60-1.30) (0.60-1.30) Estimat Glomerular Filtration 71 ML/MIN (>89) 81 ML/MIN (>89) Rate Random Glucose 327 MG/DL 234 MG/DL (74-106) (74-106) Calcium Level 7.2 MG/DL 6.9 MG/DL (8.5-10.1) (8.5-10.1) Protein Corrected Calcium 8.1 MG/DL 7.7 MG/DL (8.5-10.1) (8.5-10.1) Phosphorus Level 2.5 MG/DL 2.6 MG/DL (2.5-4.9) (2.5-4.9) Magnesium Level 2.0 MG/DL 1.9 MG/DL (1.5-2.5) (1.5-2.5) Total Protein 5.4 GM/DL 5.5 GM/DL (6.4-8.2) (6.4-8.2) White Blood Count 8.1 TH/MM3 (4.0-11.0) Red Blood Count 3.66 MIL/MM3 (4.50-5.90) Hemoglobin 10.1 GM/DL (13.0-17.0) Hematocrit 31.5 % (39.0-51.0) Mean Corpuscular Volume 85.8 FL (80.0-100.0) Mean Corpuscular Hemoglobin 27.6 PG (27.0-34.0) Mean Corpuscular Hemoglobin 32.2 % Concent (32.0-36.0) Red Cell Distribution Width 17.9 % (11.6-17.2) Platelet Count 79 TH/MM3 (150-450) Mean Platelet Volume 9.5 FL (7.0-11.0) Neutrophils (%) (Auto) 76.8 % (16.0-70.0) Lymphocytes (%) (Auto) 16.6 % (9.0-44.0) Monocytes (%) (Auto) 2.9 % (0.0-8.0) Eosinophils (%) (Auto) 3.3 % (0.0-4.0) Basophils (%) (Auto) 0.4 % (0.0-2.0) Neutrophils # (Auto) 6.3 TH/MM3 (1.8-7.7) Lymphocytes # (Auto) 1.3 TH/MM3 (1.0-4.8) Monocytes # (Auto) 0.2 TH/MM3 (0-0.9) Eosinophils # (Auto) 0.3 TH/MM3 (0-0.4) Basophils # (Auto) 0.0 TH/MM3 (0-0.2) CBC Comment AUTO DIFF Differential Comment AUTO DIFF CONFIRMED Platelet Estimate LOW (NORMAL) Platelet Morphology Comment NORMAL (NORMAL) Lactic Acid Level 2.6 mmol/L (0.4-2.0) Random Vancomycin Level 4.9 COMMENT Test 06/05/16 06/05/16 06/06/16 06/06/16 08:20 14:32 03:40 05:00 Sodium Level 157 MEQ/L 155 MEQ/L 156 MEQ/L (136-145) (136-145) (136-145) Potassium Level 3.8 MEQ/L 4.0 MEQ/L 3.6 MEQ/L (3.5-5.1) (3.5-5.1) (3.5-5.1) Chloride Level 126 MEQ/L 126 MEQ/L 123 MEQ/L (98-107) (98-107) (98-107) Carbon Dioxide Level 20.5 MEQ/L 23.5 MEQ/L 25.4 MEQ/L (21.0-32.0) (21.0-32.0) (21.0-32.0) Anion Gap 11 MEQ/L (5-15) 6 MEQ/L (5-15) 8 MEQ/L (5-15) Blood Urea Nitrogen 15 MG/DL (7-18) 12 MG/DL (7-18) 10 MG/DL (7-18) Creatinine 0.94 MG/DL 0.86 MG/DL 0.90 MG/DL (0.60-1.30) (0.60-1.30) (0.60-1.30) Estimat Glomerular Filtration 77 ML/MIN (>89) 85 ML/MIN (>89) 81 ML/MIN (>89) Rate Random Glucose 173 MG/DL 200 MG/DL 194 MG/DL (74-106) (74-106) (74-106) Calcium Level 7.2 MG/DL 7.6 MG/DL 7.9 MG/DL (8.5-10.1) (8.5-10.1) (8.5-10.1) Protein Corrected Calcium 7.9 MG/DL (8.5-10.1) Phosphorus Level 2.4 MG/DL 2.0 MG/DL 1.5 MG/DL (2.5-4.9) (2.5-4.9) (2.5-4.9) Magnesium Level 2.0 MG/DL 2.3 MG/DL (1.5-2.5) (1.5-2.5) Total Protein 5.8 GM/DL (6.4-8.2) White Blood Count 9.3 TH/MM3 (4.0-11.0) Red Blood Count 3.83 MIL/MM3 (4.50-5.90) Hemoglobin 10.6 GM/DL (13.0-17.0) Hematocrit 32.4 % (39.0-51.0) Mean Corpuscular Volume 84.5 FL (80.0-100.0) Mean Corpuscular Hemoglobin 27.6 PG (27.0-34.0) Mean Corpuscular Hemoglobin 32.7 % Concent (32.0-36.0) Red Cell Distribution Width 17.2 % (11.6-17.2) Platelet Count 86 TH/MM3 (150-450) Mean Platelet Volume 9.6 FL (7.0-11.0) Neutrophils (%) (Auto) 81.9 % (16.0-70.0) Lymphocytes (%) (Auto) 11.3 % (9.0-44.0) Monocytes (%) (Auto) 3.3 % (0.0-8.0) Eosinophils (%) (Auto) 3.1 % (0.0-4.0) Basophils (%) (Auto) 0.4 % (0.0-2.0) Neutrophils # (Auto) 7.6 TH/MM3 (1.8-7.7) Lymphocytes # (Auto) 1.1 TH/MM3 (1.0-4.8) Monocytes # (Auto) 0.3 TH/MM3 (0-0.9) Eosinophils # (Auto) 0.3 TH/MM3 (0-0.4) Basophils # (Auto) 0.0 TH/MM3 (0-0.2) CBC Comment AUTO DIFF Differential Total Cells 100 Counted Neutrophils % (Manual) 81 % (16-70) Band Neutrophils % 2 % (0-6) Lymphocytes % 11 % (9-44) Monocytes % 2 % (0-8) Eosinophils % 4 % (0-4) Neutrophils # (Manual) 7.7 TH/MM3 (1.8-7.7) Differential Comment FINAL DIFF MANUAL Platelet Estimate LOW (NORMAL) Platelet Morphology Comment NORMAL (NORMAL) Red Cell Morphology Comment NORMAL (NORMAL) Blood Gas Puncture Site LT RADIAL Blood Gas Patient Temperature 98.6 Blood Gas HCO3 22 mmol/L (22-26) Blood Gas Base Excess -1.9 mmol/L (-2-2) Blood Gas Oxygen Saturation 93 % (90-100) Arterial Blood pH 7.44 (7.380-7.420) Arterial Blood Partial 33 mmHg (38-42) Pressure CO2 Arterial Blood Partial 78 mmHg Pressure O2 (61-120) Arterial Blood Oxygen Content 15.2 Vol % (12.0-20.0) Arterial Blood 1.9 % (0-4) Carboxyhemoglobin Arterial Blood Methemoglobin 0.9 % (0-2) Blood Gas Hemoglobin 11.6 G/DL (12.0-16.0) Oxygen Delivery Device VENTILATOR Blood Gas Ventilator Setting COMMENT Blood Gas Inspired Oxygen 30 % Test 06/06/16 09:40 Sodium Level 154 MEQ/L (136-145) Potassium Level 3.2 MEQ/L (3.5-5.1) Chloride Level 120 MEQ/L (98-107) Carbon Dioxide Level 24.4 MEQ/L (21.0-32.0) Anion Gap 10 MEQ/L (5-15) Blood Urea Nitrogen 10 MG/DL (7-18) Creatinine 0.98 MG/DL (0.60-1.30) Estimat Glomerular Filtration 73 ML/MIN (>89) Rate Random Glucose 237 MG/DL (74-106) Calcium Level 7.7 MG/DL (8.5-10.1) (Charlotte Hall) Result Diagram: 06/06/16 0340 06/06/16 0940 Microbiology Microbiology Date/Time Procedure Status Source Growth 06/04/16 02:25 Aerobic Blood Culture - Preliminary Resulted Blood Peripheral NO GROWTH IN 1 DAY 06/04/16 02:25 Anaerobic Blood Culture - Preliminary Resulted Blood Peripheral NO GROWTH IN 1 DAY 06/04/16 02:30 Aerobic Blood Culture - Preliminary Resulted Blood Peripheral NO GROWTH IN 1 DAY 06/04/16 02:30 Anaerobic Blood Culture - Preliminary Resulted Blood Peripheral NO GROWTH IN 1 DAY 06/04/16 02:30 Urine Culture - Final Complete Urine Catheterized Urine Enterobacter Cloacae 06/04/16 13:37 Gram Stain - Final Complete Sputum Endotracheal 06/04/16 13:37 Sputum Culture - Final Complete Sputum Endotracheal HEAVY GROWTH NORMAL RESPIRATORY ROSA Imaging Last Impressions Chest X-Ray 06/06/16 0000 Signed Impressions: Service Date/Time: Monday, June 06, 2016 04:44 - CONCLUSION: Worsening basilar infiltrates. Gary Mcgee MD Procedures * 06/04/16 -Intubated. * 06/04/16 -PEG tube replaced. * 06/04/16 -Left subclavian central line placed. . (Charlotte Hall) Patient/Family Conference Present at Family Conference: Sivakumar Vitale Family Conference Time (mins): 25 Family Conference Location: Telephone Issues Discussed: * Palliative care role, purpose, approach * Additional medical, psychosocial, and spiritual history * Patients general health, functional status, and cognitive changes in the months leading up to the current hospitalization * Patient/family understanding of the current medical problems * Patient/family understanding of prognosis * Patients goals of care as best understood from advance directives and/or conversations and/or values * Current medical treatment options and benefits/burdens of those options * Likely scenarios comparing ongoing aggressive care with a transition to comfort measures only * Questions answered to the best of my ability * Palliative care contact information provided . ([facility]) Assessment and Plan Disease Oriented Problem List: (1) Severe sepsis with acute organ dysfunction (2) Acute respiratory failure (3) Alzheimer's dementia Symptom Scale: (1) Shortness of breath 0-10 Scale: Unable to quantify Comment: Currently intubated on mech vent. . (2) Debility 0-10 Scale: Unable to quantify Comment: Progressive, secondary to severe dementia. Bedbound at baseline. . (3) Pain 0-10 Scale: Unable to quantify Comment: history of chronic pain. . Pertinent Non-Medical Issues Psychosocial: . Has 2 children. SNF resident. Spiritual: Not spiritual. Legal: No living will completed. Ethical issues impacting care: No living will completed. who is serving as HCP relies on sons for share decision-making. . Important Contacts Kvng Amin and son Winifred . . Prognosis Mr. Amin is an 80 y/o male with a medical history significant for severe Alzheimer's dementia, anxiety, BPH and HNT who is bedbound and non-verbal at baseline. Patient admitted on 06/04/16 secondary to septic shock and acute respiratory failure. Patient remains intubated on mechanical ventilation. Baseline with documented progressive physical and cognitive decline, now total care at SNF. PEG placed on November secondary to dysphagia and failure to thrive , patient continued declining post PEG placement. Patient is at high risk for further complication, continued decline, and given his poor functional status and health at baseline. His prognosis is poor for an improved quality of life or long-term survival. . Code Status: Full Code Plan * FULL CODE * Patient incapacitated secondary to severe dementia. No HCS completed. As per [place] law, patient's Kvng Amin is healthcare proxy. also elderly , relying on her sons Winifred and Milan to make healthcare decisions. Recommend share decision-making with and sons. * Goals of care: FULL CODE. Family wishing for continuation of aggressive care to include intubation and mech ventilation when medically necessary. Spoke with son on 06/06/16. Son tells me that no living will or advance directives has been completed and that no discussions regarding medical treatment or goals of care have been done prior to patient's continued decline/acute events. Son tells me that SNF has asked his mother in several occasions regarding goals of care and/ or code status. Son reports that his mother (pt's ) is very "old fashioned" and that she dislike discussing this topic/EOL. As per son, it is the family's wishes for continuation of aggressive care with the goal of pt returning to his SNF once extubated. * Patient definitely hospice appropriate; however, not in line with goals of care/family's wishes. FAST 7e at baseline, PPS 30% -PEG feeding. * Symptoms: shortness of breath, intubated on mech vent. Tolerating CPAP today. Debility: progressive secondary to severe dementia. Patient bedbound and total care at baseline. Pain, history of chronic pain. Tylenol as needed at SNF. Morphine and Tylenol available as needed. * Case discussed with bedside RN. * Palliative care contact information provided to patient's family. All questions were answered in great detail. * Palliative care to continue to f/y pt/family for further clarification of goals of care. . (Charlotte Hall) Time Spent Total Floor Time (mins): 85 (Total time to include review and summarization of available medical records including prior hospitalizations, physical exam, telephone conversation with son and case discussion with bedside RN. ) Face to Face Time (mins): 25 >50% Counseling/Coord of Care: Yes (Charlotte Hall) Thank you for the opportunity to participate in the care of Mr. Amin. (Charlotte Hall) Attestation To help prompt me to consider important information that might be impacting today's encounter and assessment, information from prior notes written by myself or my colleagues may have been "brought forward" into today's note. My signature on this note, however, is an attestation that I personally performed the exam, history, and/or decision-making noted today, and, unless otherwise indicated, the interactions with patient, family, and staff as well as the review of records all occurred today. I also attest that the listed assessment and stated plan reflect my best clinical judgment today based on the combination of historical information, prior notes, and today's exam/ interactions. When time spent is documented, it refers only to time spent today by the signer, or if indicated, combined time spent today by collaborating physician/nurse practitioner. . (Charlotte Hall) Collaborating MD Comments Chart reviewed. Case discussed with palliative care SUPERVISOR CELLARS. Above SUPERVISOR CELLARS note reviewed and I concur. . (Nader Joya MD) Charlotte Hall Jun 06, 2016 11:59 Nader Joya MD Jul 09, 2016 07:37
--- NOTE | 2016-06-06 13:01 | HHI.CCPN ---
Subjective Remarks/Hospital Course 80 y/o NH patient with severe dehydration, UTI sepsis, respiratory failure admitted earlier. Nonverbal, minimally responsive. Cachectic, anasarca. 06/05 Patient is sedated with Diprivan and intubated. On Insulin drip. PEG tube was replaced by GI yesterday. 06/06: Remains sedated, orally intubated on [facility] ventilation. Objective Vital Signs Date Time Temp Pulse Resp B/P Pulse Ox O2 Delivery O2 Flow Rate FiO2 06/06/16 12:10 95 30 06/06/16 10:00 92 06/06/16 09:31 Ventilator 06/06/16 08:00 98.7 137/63 06/06/16 04:00 16 06/04/16 02:40 3.00 Intake and Output 06/05/16 06/05/16 06/06/16 08:00 16:00 00:00 Intake Total 2270 ml 2038 ml 1048 ml Output Total 550 ml 775 ml 1560.0 ml Balance 1720 ml 1263 ml -512.0 ml Result Diagram: 06/06/16 0340 06/06/16 0940 Other Results Microbiology Date/Time Procedure Status Source Growth 06/04/16 02:30 Urine Culture - Final Complete Urine Catheterized Urine Enterobacter Cloacae 06/04/16 13:37 Gram Stain - Final Complete Sputum Endotracheal 06/04/16 13:37 Sputum Culture - Final Complete Sputum Endotracheal HEAVY GROWTH NORMAL RESPIRATORY ROSA Laboratory Tests Test 06/06/16 05:00 Blood Gas Puncture Site LT RADIAL Blood Gas Patient Temperature 98.6 Blood Gas HCO3 22 mmol/L (22-26) Blood Gas Base Excess -1.9 mmol/L (-2-2) Blood Gas Oxygen Saturation 93 % (90-100) Arterial Blood pH 7.44 (7.380-7.420) Arterial Blood Partial 33 mmHg (38-42) Pressure CO2 Arterial Blood Partial 78 mmHg Pressure O2 (61-120) Arterial Blood Oxygen Content 15.2 Vol % (12.0-20.0) Arterial Blood 1.9 % (0-4) Carboxyhemoglobin Arterial Blood Methemoglobin 0.9 % (0-2) Blood Gas Hemoglobin 11.6 G/DL (12.0-16.0) Oxygen Delivery Device VENTILATOR Blood Gas Ventilator Setting COMMENT Blood Gas Inspired Oxygen 30 % Imaging Last Impressions Chest X-Ray 06/04/16 0213 Signed Impressions: Service Date/Time: Saturday, June 04, 2016 03:19 - CONCLUSION: 1. Satisfactory position of endotracheal tube as above. Rachid Lopez MD Objective Remarks GENERAL: Patient is 80 yo sedated and intubated SKIN: Warm and dry. HEAD: Normocephalic. EYES: No scleral icterus. No injection or drainage. NECK: Supple, trachea midline. No JVD or lymphadenopathy. CARDIOVASCULAR: Regular rate and rhythm without murmurs, gallops, or rubs. RESPIRATORY: Breath sounds equal bilaterally. No accessory muscle use. GASTROINTESTINAL: Abdomen soft, non-tender, nondistended. PEG tube is in place MUSCULOSKELETAL: No cyanosis, or edema. Contracted. Neuro: Sedated, intubated A/P Problem List: (1) Severe sepsis with acute organ dysfunction ICD Code: A41.9 Status: Acute (2) Acute respiratory failure ICD Code: J96.00 Status: Acute (3) UTI (urinary tract infection) ICD Code: N39.0 Status: Acute (4) Alzheimer's dementia ICD Code: F02.80 Status: Acute (5) Fever ICD Code: R50.9 Status: Acute (6) Global aphasia ICD Code: R47.02 Status: Acute Assessment and Plan 1)VDRF 2) Severe sepsis. 3) UTI. 4)Hyperglycemia 5)Hypernatremia, hypokalemia 6)Lactic acidemia..trending down 7)Dehydration 8)Anemia, thrombocytopenia 9) Protein Calorie Malnutrition. 10) Dementia, advanced. Nonverbal. Plan: Neuro: On Diprivan infusion for sedation, daily sedation vacation. Monitor neuro status. Pulm: Continue with vent support keep sat >92% Bronchodilators, ICU vent bundle. CV:Monitor HR and BP keep MAP>65mmHg Serial lactic acid monitoring. Lactic acid 2.6 this morning from 6.0 on arrival. Continue with IVF : Monitor renal function, I/O's, electrolytes replacement per protocol. Will need K replacement today. On Free water 300ml Q4, LR@150ml/hr, monitor sodium level. GI: Start TF -Glucerna 1.5 with goal rate 50ml/hr via PEG tube On Protonix.for GI prophylaxis Heme: Monitor CBC ID: Continue with abx ( Vanco, Zosyn) ID is following, follow up on cxs from 9 Blood, sputum, urine) Endo: On Insulin drip log#2, Will wean off insulin drip and transition to SSI GI prophylaxis- on Protonix 40mg daily DVT prophylaxis- hold Heparin SQ ( thrombocytopenia) Lines: Right subclavian CVP placed 06/04 Consult palliative care to asses with goals of care. CCT 30 mins Sánchez Whitaker MD Jun 06, 2016 13:01
[2016-06-06] MEDS: ACETAMINOPHEN 325 MG TAB PO PRN (16:10)
[2016-06-06] MEDS: POTASSIUM CHLOR 40 MEQ PREMIX 100 ML IV PRN ×2 (17:28→21:20)
--- NOTE | 2016-06-06 20:46 | HHI.IDPN ---
Subjective Subjective Remarks Delayed entry- pt was seen around 12 00 noon today sodium improved tolerating CPAP good urine output no diarrhea cont to have fever Antibiotics delores ventura Past Medical History Alzheimer's dementia, anxiety, BPH and HNT Allergies: Coded Allergies: No Known Allergies (Unverified , 01/04/16) Objective . Vital Signs Date Time Temp Pulse Resp B/P Pulse Ox O2 Delivery O2 Flow Rate FiO2 06/06/16 20:15 100 30 06/06/16 18:00 80 06/06/16 16:27 97 30 06/06/16 16:24 97 30 06/06/16 16:00 101.4 86 28 139/63 97 06/06/16 16:00 35 06/06/16 16:00 86 06/06/16 14:00 80 06/06/16 12:10 95 30 06/06/16 12:00 90 06/06/16 12:00 100.9 76 137/63 97 06/06/16 12:00 35 06/06/16 10:00 92 06/06/16 09:31 100 Ventilator 30 06/06/16 09:31 30 06/06/16 09:31 100 30 06/06/16 08:00 76 06/06/16 08:00 98.7 76 137/63 97 06/06/16 08:00 30 06/06/16 06:00 91 06/06/16 04:05 100 30 06/06/16 04:00 30 06/06/16 04:00 100.5 82 16 151/67 100 06/06/16 04:00 82 06/06/16 02:00 82 06/06/16 01:15 100 30 06/06/16 00:00 82 06/06/16 00:00 30 06/06/16 00:00 100.4 82 17 96/51 100 06/05/16 22:28 100 30 06/05/16 22:00 81 06/05/16 06/05/16 06/06/16 15:00 23:00 07:00 Intake Total 2038 ml 1048 ml 1150 ml Output Total 775 ml 1560.0 ml 1750 ml Balance 1263 ml -512.0 ml -600 ml Intake Oral 0 ml IV Total 1339 ml 584 ml 639 ml Tube Feeding 99 ml 164 ml 211 ml Other 600 ml 300 ml 300 ml Output Urine Total 775 ml 1500 ml 1750 ml Tube Feeding Residual Discard 60.0 ml # Bowel Movements 0 0 . Laboratory Tests Test 06/05/16 06/06/16 05:28 03:40 White Blood Count 8.1 TH/MM3 9.3 TH/MM3 Red Blood Count 3.66 MIL/MM3 3.83 MIL/MM3 Hemoglobin 10.1 GM/DL 10.6 GM/DL Hematocrit 31.5 % 32.4 % Mean Corpuscular Volume 85.8 FL 84.5 FL Mean Corpuscular Hemoglobin 27.6 PG 27.6 PG Mean Corpuscular Hemoglobin 32.2 % 32.7 % Concent Red Cell Distribution Width 17.9 % 17.2 % Platelet Count 79 TH/MM3 86 TH/MM3 Mean Platelet Volume 9.5 FL 9.6 FL Neutrophils (%) (Auto) 76.8 % 81.9 % Lymphocytes (%) (Auto) 16.6 % 11.3 % Monocytes (%) (Auto) 2.9 % 3.3 % Eosinophils (%) (Auto) 3.3 % 3.1 % Basophils (%) (Auto) 0.4 % 0.4 % Neutrophils # (Auto) 6.3 TH/MM3 7.6 TH/MM3 Lymphocytes # (Auto) 1.3 TH/MM3 1.1 TH/MM3 Monocytes # (Auto) 0.2 TH/MM3 0.3 TH/MM3 Eosinophils # (Auto) 0.3 TH/MM3 0.3 TH/MM3 Basophils # (Auto) 0.0 TH/MM3 0.0 TH/MM3 CBC Comment AUTO DIFF AUTO DIFF Differential Comment AUTO DIFF FINAL DIFF CONFIRMED MANUAL Platelet Estimate LOW LOW Platelet Morphology Comment NORMAL NORMAL Differential Total Cells 100 Counted Neutrophils % (Manual) 81 % Band Neutrophils % 2 % Lymphocytes % 11 % Monocytes % 2 % Eosinophils % 4 % Neutrophils # (Manual) 7.7 TH/MM3 Red Cell Morphology Comment NORMAL Laboratory Tests Test 06/05/16 06/05/16 06/05/16 06/05/16 02:12 05:28 05:29 08:20 Sodium Level 158 MEQ/L 157 MEQ/L 157 MEQ/L Potassium Level 3.3 MEQ/L 3.1 MEQ/L 3.8 MEQ/L Chloride Level 127 MEQ/L 127 MEQ/L 126 MEQ/L Carbon Dioxide Level 22.3 MEQ/L 24.2 MEQ/L 20.5 MEQ/L Anion Gap 9 MEQ/L 6 MEQ/L 11 MEQ/L Blood Urea Nitrogen 19 MG/DL 17 MG/DL 15 MG/DL Creatinine 1.01 MG/DL 0.90 MG/DL 0.94 MG/DL Estimat Glomerular Filtration 71 ML/MIN 81 ML/MIN 77 ML/MIN Rate Random Glucose 327 MG/DL 234 MG/DL 173 MG/DL Calcium Level 7.2 MG/DL 6.9 MG/DL 7.2 MG/DL Protein Corrected Calcium 8.1 MG/DL 7.7 MG/DL 7.9 MG/DL Phosphorus Level 2.5 MG/DL 2.6 MG/DL 2.4 MG/DL Magnesium Level 2.0 MG/DL 1.9 MG/DL 2.0 MG/DL Total Protein 5.4 GM/DL 5.5 GM/DL 5.8 GM/DL Lactic Acid Level 2.6 mmol/L Test 06/05/16 06/06/16 06/06/16 14:32 03:40 09:40 Sodium Level 155 MEQ/L 156 MEQ/L 154 MEQ/L Potassium Level 4.0 MEQ/L 3.6 MEQ/L 3.2 MEQ/L Chloride Level 126 MEQ/L 123 MEQ/L 120 MEQ/L Carbon Dioxide Level 23.5 MEQ/L 25.4 MEQ/L 24.4 MEQ/L Anion Gap 6 MEQ/L 8 MEQ/L 10 MEQ/L Blood Urea Nitrogen 12 MG/DL 10 MG/DL 10 MG/DL Creatinine 0.86 MG/DL 0.90 MG/DL 0.98 MG/DL Estimat Glomerular Filtration 85 ML/MIN 81 ML/MIN 73 ML/MIN Rate Random Glucose 200 MG/DL 194 MG/DL 237 MG/DL Calcium Level 7.6 MG/DL 7.9 MG/DL 7.7 MG/DL Phosphorus Level 2.0 MG/DL 1.5 MG/DL Magnesium Level 2.3 MG/DL Microbiology Date/Time Procedure Status Source Growth 06/04/16 02:25 Aerobic Blood Culture - Preliminary Resulted Blood Peripheral NO GROWTH IN 2 DAYS 06/04/16 02:25 Anaerobic Blood Culture - Preliminary Resulted Blood Peripheral NO GROWTH IN 2 DAYS 06/04/16 02:30 Aerobic Blood Culture - Preliminary Resulted Blood Peripheral NO GROWTH IN 2 DAYS 06/04/16 02:30 Anaerobic Blood Culture - Preliminary Resulted Blood Peripheral NO GROWTH IN 2 DAYS 06/04/16 02:30 Urine Culture - Final Complete Urine Catheterized Urine Enterobacter Cloacae 06/04/16 13:37 Gram Stain - Final Complete Sputum Endotracheal 06/04/16 13:37 Sputum Culture - Final Complete Sputum Endotracheal HEAVY GROWTH NORMAL RESPIRATORY [facility] Imaging Last Impressions Chest X-Ray 06/06/16 0000 Signed Impressions: Service Date/Time: Monday, June 06, 2016 04:44 - CONCLUSION: Worsening basilar infiltrates. Gary Mcgee MD Physical Exam CONSTITUTIONAL/GENERAL: This is an adequately nourished patient, unresponsive SKIN: No jaundice, rashes, or lesions. Skin temperature appropriate. Not diaphoretic. EYES: Pupils equal and round and reactive. No scleral icterus. No injection or drainage. Fundi not examined. ENT: Nose without bleeding or purulent drainage. oral mucosae dry, without visible erythema, exudates, masses, or lesions. NECK: Trachea midline. CARDIOVASCULAR: Regular rate and rhythm without murmurs, gallops, or rubs. No JVD. Peripheral pulses symmetric. RESPIRATORY/CHEST: Symmetric, unlabored respirations. Clear to auscultation. Breath sounds equal bilaterally. No wheezes, rales, or rhonchi. GASTROINTESTINAL: Abdomen soft, non-tender, nondistended. No hepato-splenomegaly , or palpable masses. No guarding. Bowel sounds present. GENITOURINARY: Without palpable bladder distension. Mckeon catheter in place with cloudy urine MUSCULOSKELETAL: Extremities without clubbing, cyanosis, or edema. NEUROLOGICAL: comatose; nonverbal; not responsive PSYCHIATRIC: unable to assess Assessment & Plan Remarks UTI, sepsis ARF, improved Acute VDRF - intubated ? PNA - cont t have fever despite of adequate coverage - worsening pulmonary imfitrates - cont zosyn, adjust per renal - dc vancomycin, - add azithro - chk pneumococcal/leg - chk sputm clx - monitor blood and urine cultures Discussed Condition With Elle Rubio MD Jun 06, 2016 20:46
[2016-06-06] MEDS: PROPOFOL 1000 MG/100 ML INJ 100 ML IV SCH (21:20)
[2016-06-07] VITALS (19 sets, daily range): BP systolic 99–132; BP diastolic 56–68; PULSE 69–93; RESP 16–20; TEMP 98.9–102; O2SAT 92–100
[2016-06-07] MEDS: INSULIN NovoLIN REGULAR SUPPLEMENTAL SCALE SQ SCH ×6 (00:39→20:43)
[2016-06-07] MEDS: AZITHROMYCIN INJ 500 MG in SODIUM CHLOR 0.9% 250 ML INJ 250 ML IV SCH ×2 (00:39→20:41)
[2016-06-07] MEDS: SODIUM CHLOR 0.45% 1000 ML INJ 1,000 ML IV SCH ×4 (00:40→23:10)
[2016-06-07] MEDS: RESP: ALBUTEROL 2.5 MG/IPRATROPIUM 0.5 MG NEB (SCH) NEB ×4 (03:12→20:35)
[2016-06-07] MEDS: FREE WATER G-TUBE SCH ×6 (04:00→20:00)
[2016-06-07] MEDS: CHLORHEXIDINE GLUCONATE 2 % 1 PACK (2 CLOTHS) TOP SCH (04:00)
[2016-06-07 04:39] LABS: AUTOMATED NEUTROPHIL # 6.1 TH/MM3 (1.8-7.7); BASOPHIL % 0.6 % (0.0-2.0); EOSINOPHIL # 0.2 TH/MM3 (0-0.4); EOSINOPHIL % 2.7 % (0.0-4.0); HEMATOCRIT 30.7 % (39.0-51.0); LYMPH % 14.2 % (9.0-44.0); LYMPHOCYTE # 1.1 TH/MM3 (1.0-4.8); MEAN CELL VOLUME 85.9 FL (80.0-100.0); MEAN CORPUSCULAR HEMOGLOBIN 28.3 PG (27.0-34.0); MEAN CORPUSCULAR HGB CONC 32.9 % (32.0-36.0); MONO % 3.6 % (0.0-8.0); NEUT % 78.9 % (16.0-70.0); PLATELET COUNT 90 TH/MM3 (150-450); RED BLOOD COUNT 3.58 MIL/MM3 (4.50-5.90); RED CELL DISTRIBUTION WIDTH 17.3 % (11.6-17.2); WHITE BLOOD COUNT 7.8 TH/MM3 (4.0-11.0)
[2016-06-07 04:45] LABS: HEMO FLAGS DIFF FINAL
[2016-06-07] MEDS: PIPERACIL-TAZO 3.375 GM PREMIX 50 ML IV SCH ×3 (04:45→20:41)
[2016-06-07 05:23] LABS: ALKALINE PHOSPHATASE 74 U/L (45-117); ALT (GPT) 32 U/L (12-78); ANION GAP 6 MEQ/L (5-15); AST (GOT) 43 U/L (15-37); BICARBONATE 25.3 MEQ/L (21.0-32.0); BLOOD UREA NITROGEN 9 MG/DL (7-18); CHLORIDE 122 MEQ/L (98-107); GLOMERULAR FILTRATION RATE 77 ML/MIN (>89); POTASSIUM 3.7 MEQ/L (3.5-5.1); SODIUM (NA) 153 MEQ/L (136-145); TOTAL BILIRUBIN ADULT 0.5 MG/DL (0.2-1.0)
--- NOTE | 2016-06-07 06:19 | RADRPT ---
EXAM DATE/TIME: 06/07/2016 05:08 [place] COMPARISON: CHEST SINGLE AP, June 06, 2016, 4:44. INDICATIONS : Shortness of breath. MEDICAL HISTORY : Failure to thrive. Anorexia. Contractures. BHP. SURGICAL HISTORY : G-tube placement ENCOUNTER: Subsequent ACUITY: 4 - 6 days PAIN SCORE: Non-responsive. LOCATION: Bilateral chest FINDINGS: Endotracheal tube tip is just above the dario. Left subclavian central line is stable. There has bee n slight improvement in aeration with decrease in confluence of basilar infiltrates. Cardiomediastina l contours are grossly stable accounting for differences in projection. CONCLUSION: Improving aeration. Gary Mcgee MD on June 07, 2016 at 6:18 Board Certified Radiologist. This report was verified electronically.
[2016-06-07] MEDS: SODIUM CHLORIDE 0.9% FLUSH 5 ML FLUSH IV FLUSH SCH ×2 (09:00→20:41)
[2016-06-07] MEDS: PANTOPRAZOLE SODIUM 40 MG VIAL IV SCH (09:00)
[2016-06-07] MEDS: PROPOFOL 1000 MG/100 ML INJ 100 ML IV SCH (10:06)
--- NOTE | 2016-06-07 11:14 | HHI.CCPN ---
Subjective Remarks/Hospital Course 80 y/o NH patient with severe dehydration, UTI sepsis, respiratory failure admitted earlier. Nonverbal, minimally responsive. Cachectic, anasarca. 06/05 Patient is sedated with Diprivan and intubated. On Insulin drip. PEG tube was replaced by GI yesterday. 06/06: Remains sedated, orally intubated on mech ventilation. 06/07: Remains sedated, orally intubated on mechanical ventilation. Daily C Pap trials ongoing. Objective Vital Signs Date Time Temp Pulse Resp B/P Pulse Ox O2 Delivery O2 Flow Rate FiO2 06/07/16 10:00 74 06/07/16 08:22 100 30 06/07/16 08:00 99.0 16 116/58 06/06/16 09:31 Ventilator 06/04/16 02:40 3.00 Intake and Output 06/06/16 06/06/16 06/07/16 08:00 16:00 00:00 Intake Total 1150 ml 1651 ml 1126 ml Output Total 1750.0 ml 1750 ml 1550.0 ml Balance -600.0 ml -99 ml -424.0 ml Result Diagram: 06/07/16 0425 06/07/16 0425 Other Results Microbiology Date/Time Procedure Status Source Growth 06/04/16 13:37 Gram Stain - Final Complete Sputum Endotracheal 06/04/16 13:37 Sputum Culture - Final Complete Sputum Endotracheal HEAVY GROWTH NORMAL RESPIRATORY ROSA Imaging Last Impressions Chest X-Ray 06/04/16 0219 Signed Impressions: Service Date/Time: Saturday, June 04, 2016 03:19 - CONCLUSION: 1. Satisfactory position of endotracheal tube as above. Rachid Lopez MD Objective Remarks GENERAL: Patient is 80 yo sedated and intubated SKIN: Warm and dry. HEAD: Normocephalic. EYES: No scleral icterus. No injection or drainage. NECK: Supple, trachea midline. No JVD or lymphadenopathy. CARDIOVASCULAR: Regular rate and rhythm without murmurs, gallops, or rubs. RESPIRATORY: Breath sounds equal bilaterally. No accessory muscle use. GASTROINTESTINAL: Abdomen soft, non-tender, nondistended. PEG tube is in place MUSCULOSKELETAL: No cyanosis, or edema. Contracted. Neuro: Sedated, intubated A/P Problem List: (1) Severe sepsis with acute organ dysfunction ICD Code: A41.9 Status: Acute (2) Acute respiratory failure ICD Code: J96.00 Status: Acute (3) UTI (urinary tract infection) ICD Code: N39.0 Status: Acute (4) Alzheimer's dementia ICD Code: F02.80 Status: Acute (5) Fever ICD Code: R50.9 Status: Acute (6) Global aphasia ICD Code: R47.02 Status: Acute Assessment and Plan 1)VDRF 2) Severe sepsis. 3) UTI. 4)Hyperglycemia 5)Hypernatremia, hypokalemia 6)Lactic acidemia..trending down 7)Dehydration 8)Anemia, thrombocytopenia 9) Protein Calorie Malnutrition. 10) Dementia, advanced. Nonverbal. Plan: Neuro: On Diprivan infusion for sedation, daily sedation vacation. Monitor neuro status. Pulm: Continue with vent support keep sat >92% Bronchodilators, ICU vent bundle. Daily C Pap trials to decide extubation CV:Monitor HR and BP keep MAP>65mmHg Continue with IVF, switch to half normal saline in view of hypernatremia. : Monitor renal function, I/O's, electrolytes replacement per protocol. On Free water 300ml Q4, switch IV fluid to half normal saline in view of hypernatremia GI: Start TF -Glucerna 1.5 with goal rate 50ml/hr via PEG tube On Protonix.for GI prophylaxis Heme: Monitor CBC ID: Continue with abx -on Zosyn/Zithromax per ID. Endo: On SSI low-dose. Add Levemir 10 units subcutaneous before meals daily on 06/07. GI prophylaxis- on Protonix 40mg daily DVT prophylaxis- hold Heparin SQ ( thrombocytopenia) Lines: Right subclavian CVP placed 06/04 Consulted palliative care to asses with goals of care. CCT 30 mins Sánchez Whitaker MD Jun 07, 2016 11:14
--- NOTE | 2016-06-07 14:56 | HHI.IDPN ---
Subjective Subjective Remarks Had fever up to 101 last night now is afebrile tolerating CPAP small amount of creamy secretions Antibiotics delores mejia Past Medical History Alzheimer's dementia, anxiety, BPH and HNT Allergies: Coded Allergies: No Known Allergies (Unverified , 01/04/16) Objective . Vital Signs Date Time Temp Pulse Resp B/P Pulse Ox O2 Delivery O2 Flow Rate FiO2 06/07/16 14:00 74 06/07/16 12:59 97 30 06/07/16 12:00 30 06/07/16 12:00 69 06/07/16 12:00 98.9 85 16 132/66 97 06/07/16 10:00 74 06/07/16 08:22 100 30 06/07/16 08:00 30 06/07/16 08:00 99.0 69 16 116/58 97 06/07/16 08:00 69 06/07/16 06:00 74 06/07/16 04:00 78 06/07/16 04:00 101.5 71 20 127/68 96 06/07/16 04:00 30 06/07/16 03:55 100 30 06/07/16 02:00 82 06/07/16 00:05 100 30 06/07/16 00:00 101.5 71 20 119/60 97 06/07/16 00:00 71 06/07/16 00:00 30 06/06/16 22:00 74 06/06/16 20:15 100 30 06/06/16 20:00 30 06/06/16 20:00 78 06/06/16 20:00 100.9 78 20 130/68 98 06/06/16 18:00 80 06/06/16 16:27 97 30 06/06/16 16:24 97 30 06/06/16 16:00 101.4 86 28 139/63 97 06/06/16 16:00 35 06/06/16 16:00 86 06/06/16 06/06/16 06/07/16 15:00 23:00 07:00 Intake Total 1651 ml 1126 ml 925 ml Output Total 1750 ml 1550.0 ml 1050 ml Balance -99 ml -424.0 ml -125 ml IV Total 560 ml 902 ml 724 ml Tube Feeding 191 ml 224 ml 201 ml Tube Irrigant 900 ml Output Urine Total 1750 ml 1450 ml 1050 ml Tube Feeding Residual Discard 0 ml 100.0 ml . Laboratory Tests Test 06/06/16 06/07/16 03:40 04:25 White Blood Count 9.3 TH/MM3 7.8 TH/MM3 Red Blood Count 3.83 MIL/MM3 3.58 MIL/MM3 Hemoglobin 10.6 GM/DL 10.1 GM/DL Hematocrit 32.4 % 30.7 % Mean Corpuscular Volume 84.5 FL 85.9 FL Mean Corpuscular Hemoglobin 27.6 PG 28.3 PG Mean Corpuscular Hemoglobin 32.7 % 32.9 % Concent Red Cell Distribution Width 17.2 % 17.3 % Platelet Count 86 TH/MM3 90 TH/MM3 Mean Platelet Volume 9.6 FL 9.1 FL Neutrophils (%) (Auto) 81.9 % 78.9 % Lymphocytes (%) (Auto) 11.3 % 14.2 % Monocytes (%) (Auto) 3.3 % 3.6 % Eosinophils (%) (Auto) 3.1 % 2.7 % Basophils (%) (Auto) 0.4 % 0.6 % Neutrophils # (Auto) 7.6 TH/MM3 6.1 TH/MM3 Lymphocytes # (Auto) 1.1 TH/MM3 1.1 TH/MM3 Monocytes # (Auto) 0.3 TH/MM3 0.3 TH/MM3 Eosinophils # (Auto) 0.3 TH/MM3 0.2 TH/MM3 Basophils # (Auto) 0.0 TH/MM3 0.0 TH/MM3 CBC Comment AUTO DIFF DIFF FINAL Differential Total Cells 100 Counted Neutrophils % (Manual) 81 % Band Neutrophils % 2 % Lymphocytes % 11 % Monocytes % 2 % Eosinophils % 4 % Neutrophils # (Manual) 7.7 TH/MM3 Differential Comment FINAL DIFF MANUAL Platelet Estimate LOW Platelet Morphology Comment NORMAL Red Cell Morphology Comment NORMAL Laboratory Tests Test 06/06/16 06/06/16 06/07/16 03:40 09:40 04:25 Sodium Level 156 MEQ/L 154 MEQ/L 153 MEQ/L Potassium Level 3.6 MEQ/L 3.2 MEQ/L 3.7 MEQ/L Chloride Level 123 MEQ/L 120 MEQ/L 122 MEQ/L Carbon Dioxide Level 25.4 MEQ/L 24.4 MEQ/L 25.3 MEQ/L Anion Gap 8 MEQ/L 10 MEQ/L 6 MEQ/L Blood Urea Nitrogen 10 MG/DL 10 MG/DL 9 MG/DL Creatinine 0.90 MG/DL 0.98 MG/DL 0.94 MG/DL Estimat Glomerular Filtration 81 ML/MIN 73 ML/MIN 77 ML/MIN Rate Random Glucose 194 MG/DL 237 MG/DL 204 MG/DL Calcium Level 7.9 MG/DL 7.7 MG/DL 7.8 MG/DL Phosphorus Level 1.5 MG/DL Magnesium Level 2.3 MG/DL Total Bilirubin 0.5 MG/DL Aspartate Amino Transf 43 U/L (AST/SGOT) Alanine Aminotransferase 32 U/L (ALT/SGPT) Alkaline Phosphatase 74 U/L Total Protein 5.8 GM/DL Albumin 1.8 GM/DL Imaging Last Impressions Chest X-Ray 06/07/16 0600 Signed Impressions: Service Date/Time: Tuesday, June 07, 2016 05:08 - CONCLUSION: Improving aeration. Gary Mcgee MD Physical Exam CONSTITUTIONAL/GENERAL: This is an adequately nourished patient, unresponsive SKIN: No jaundice, rashes, or lesions. Skin temperature appropriate. Not diaphoretic. EYES: Pupils equal and round and reactive. No scleral icterus. No injection or drainage. Fundi not examined. ENT: Nose without bleeding or purulent drainage. oral mucosae dry, without visible erythema, exudates, masses, or lesions. NECK: Trachea midline. CARDIOVASCULAR: Regular rate and rhythm without murmurs, gallops, or rubs. No JVD. Peripheral pulses symmetric. RESPIRATORY/CHEST: Symmetric, unlabored respirations. Clear to auscultation. Breath sounds equal bilaterally. No wheezes, rales, or rhonchi. GASTROINTESTINAL: Abdomen soft, non-tender, nondistended. No hepato-splenomegaly , or palpable masses. No guarding. Bowel sounds present. GENITOURINARY: Without palpable bladder distension. Mckeon catheter in place with clear light yellow urine MUSCULOSKELETAL: Extremities without clubbing, cyanosis, 2+ generalyzed edema. NEUROLOGICAL: comatose; nonverbal; not responsive PSYCHIATRIC: unable to assess Assessment & Plan Remarks UTI, sepsis ARF, improved Acute VDRF - intubated ? PNA Persistent fever - cont t have fever despite of adequate coverage - fu repeat urine and blood clx - cont zosyn, adjust per renal - dc vancomycin, - add azithro - chk pneumococcal/leg - chk sputm clx Discussed Condition With Elle Rubio MD Jun 07, 2016 14:56
--- NOTE | 2016-06-07 15:10 | HHI.HCPN ---
Reason for visit a. To assist with evaluation and management of symptoms including: debility and shortness of breath. b. To assist medical decision maker(s) with: better understanding of current medical conditions; weighing benefits/burdens of medical treatment options; making medical treatment decisions. . (Charlotte Hall) Subjective/Interval History Patient seen in his room. Eyes open but not tracking or following any commands. Appears comfortable, ongoing CPAP trials. Max temp today 101.5, BP stable. WBC 7.8, hemoglobin 10.1, platelets 90. Na 153, K 3.7, BUN/Creat 9/0.94. CXR today suggesting improving aeration. TC to patient's family, spoke with son Winifred. Medical update provided. Reviewed ongoing CPAP trials with likelihood for extubation today. Son appreciative of update and reports having no further questions. . Family/friend interactions See interval note. . (Charlotte Hall) Advance Directives Living Will: Never completed Health Care Surrogate: Never completed Durable Power of Documentation Supervisor: Never completed (Charlotte Hall) Advance Directive Specifics Health Care Surrogate(s): No HCS completed. As per [place] law, patient Kvng Amin is HCP. also elderly, relying on her sons Winifred and Milan to make healthcare decisions. Documented care wishes: No living will completed. . Significant change in goals: Unchanged. FULL CODE. Family wishing for continuation of aggressive care to include intubation and mech ventilation when medically indicated. . (Charlotte Hall) Objective Vital Signs Date Time Temp Pulse Resp B/P Pulse Ox O2 Delivery O2 Flow Rate FiO2 06/07/16 14:00 74 06/07/16 12:59 97 30 06/07/16 12:00 30 06/07/16 12:00 69 06/07/16 12:00 98.9 85 16 132/66 97 06/07/16 10:00 74 06/07/16 08:22 100 30 06/07/16 08:00 30 06/07/16 08:00 99.0 69 16 116/58 97 06/07/16 08:00 69 06/07/16 06:00 74 06/07/16 04:00 78 06/07/16 04:00 101.5 71 20 127/68 96 06/07/16 04:00 30 06/07/16 03:55 100 30 06/07/16 02:00 82 06/07/16 00:05 100 30 06/07/16 00:00 101.5 71 20 119/60 97 06/07/16 00:00 71 06/07/16 00:00 30 06/06/16 22:00 74 06/06/16 20:15 100 30 06/06/16 20:00 30 06/06/16 20:00 78 06/06/16 20:00 100.9 78 20 130/68 98 06/06/16 18:00 80 06/06/16 16:27 97 30 06/06/16 16:24 97 30 06/06/16 16:00 101.4 86 28 139/63 97 06/06/16 16:00 35 06/06/16 16:00 86 Intake & Output 06/07/16 06/07/16 07:00 19:00 Intake Total 2051 ml 1333 ml Output Total 2600.0 ml 1450 ml Balance -549.0 ml -117 ml IV Total 1626 ml 500 ml Tube Feeding 425 ml 233 ml Other 600 ml Output Urine Total 2500 ml 1450 ml Tube Feeding Residual Discard 100.0 ml 0 ml # Bowel Movements 0 Physical Exam CONSTITUTIONAL/GENERAL: This is a frail elderly man in no apparent distress. TUBES/LINES/DRAINS: ETT, OG, PEG, SCD's, PIV's, Left subclavian central line. SKIN: No jaundice or rashes. Scattered ecchymoses on upper extremities. Skin temperature appropriate. Not diaphoretic. Suspected deep tissue ulcer to right inner heel. HEAD: Atraumatic. Normocephalic. EYES: Pupils equal and round and reactive. No injection or drainage. ENT: Unable to assess hearing. Nose without bleeding or purulent drainage. Unable to evaluate throat due to ETT. NECK: Trachea midline. Supple. CARDIOVASCULAR: Regular rate and rhythm without murmurs, gallops, or rubs. No JVD. Weak pedal pulses bilat. RESPIRATORY/CHEST: Symmetric, unlabored respirations. clear, diminished. On mech ventilation/CPAP. GASTROINTESTINAL: Abdomen soft, round, large. PEG tube in place. Bowel sounds present. Tube feeding on hold at this time. GENITOURINARY: Without palpable bladder distension. Mckeon catheter in place. MUSCULOSKELETAL: +2 edema to BUE, +1 edema to BLE. Bilateral knee contractures noted. NEUROLOGICAL: alert, eyes open. NOt following any command. Non-verbal at baseline. PSYCHIATRIC: Unable to assess due to clinical condition. Appears calm. . (Charlotte Hall) Diagnostic Tests Laboratory Laboratory Tests Test 06/04/16 06/05/16 06/05/16 06/05/16 20:02 02:12 05:28 05:29 Sodium Level 161 MEQ/L 158 MEQ/L 157 MEQ/L (136-145) (136-145) (136-145) Potassium Level 3.3 MEQ/L 3.3 MEQ/L 3.1 MEQ/L (3.5-5.1) (3.5-5.1) (3.5-5.1) Chloride Level 131 MEQ/L 127 MEQ/L 127 MEQ/L (98-107) (98-107) (98-107) Carbon Dioxide Level 22.2 MEQ/L 22.3 MEQ/L 24.2 MEQ/L (21.0-32.0) (21.0-32.0) (21.0-32.0) Anion Gap 8 MEQ/L (5-15) 9 MEQ/L (5-15) 6 MEQ/L (5-15) Blood Urea Nitrogen 24 MG/DL (7-18) 19 MG/DL (7-18) 17 MG/DL (7-18) Creatinine 1.01 MG/DL 1.01 MG/DL 0.90 MG/DL (0.60-1.30) (0.60-1.30) (0.60-1.30) Estimat Glomerular Filtration 71 ML/MIN (>89) 71 ML/MIN (>89) 81 ML/MIN (>89) Rate Random Glucose 314 MG/DL 327 MG/DL 234 MG/DL (74-106) (74-106) (74-106) Calcium Level 7.1 MG/DL 7.2 MG/DL 6.9 MG/DL (8.5-10.1) (8.5-10.1) (8.5-10.1) Protein Corrected Calcium 7.9 MG/DL 8.1 MG/DL 7.7 MG/DL (8.5-10.1) (8.5-10.1) (8.5-10.1) Phosphorus Level 0.7 MG/DL 2.5 MG/DL 2.6 MG/DL (2.5-4.9) (2.5-4.9) (2.5-4.9) Magnesium Level 2.0 MG/DL 2.0 MG/DL 1.9 MG/DL (1.5-2.5) (1.5-2.5) (1.5-2.5) Total Protein 5.6 GM/DL 5.4 GM/DL 5.5 GM/DL (6.4-8.2) (6.4-8.2) (6.4-8.2) White Blood Count 8.1 TH/MM3 (4.0-11.0) Red Blood Count 3.66 MIL/MM3 (4.50-5.90) Hemoglobin 10.1 GM/DL (13.0-17.0) Hematocrit 31.5 % (39.0-51.0) Mean Corpuscular Volume 85.8 FL (80.0-100.0) Mean Corpuscular Hemoglobin 27.6 PG (27.0-34.0) Mean Corpuscular Hemoglobin 32.2 % Concent (32.0-36.0) Red Cell Distribution Width 17.9 % (11.6-17.2) Platelet Count 79 TH/MM3 (150-450) Mean Platelet Volume 9.5 FL (7.0-11.0) Neutrophils (%) (Auto) 76.8 % (16.0-70.0) Lymphocytes (%) (Auto) 16.6 % (9.0-44.0) Monocytes (%) (Auto) 2.9 % (0.0-8.0) Eosinophils (%) (Auto) 3.3 % (0.0-4.0) Basophils (%) (Auto) 0.4 % (0.0-2.0) Neutrophils # (Auto) 6.3 TH/MM3 (1.8-7.7) Lymphocytes # (Auto) 1.3 TH/MM3 (1.0-4.8) Monocytes # (Auto) 0.2 TH/MM3 (0-0.9) Eosinophils # (Auto) 0.3 TH/MM3 (0-0.4) Basophils # (Auto) 0.0 TH/MM3 (0-0.2) CBC Comment AUTO DIFF Differential Comment AUTO DIFF CONFIRMED Platelet Estimate LOW (NORMAL) Platelet Morphology Comment NORMAL (NORMAL) Lactic Acid Level 2.6 mmol/L (0.4-2.0) Test 06/05/16 06/05/16 06/05/16 06/06/16 07:55 08:20 14:32 03:40 Random Vancomycin Level 4.9 COMMENT Sodium Level 157 MEQ/L 155 MEQ/L 156 MEQ/L (136-145) (136-145) (136-145) Potassium Level 3.8 MEQ/L 4.0 MEQ/L 3.6 MEQ/L (3.5-5.1) (3.5-5.1) (3.5-5.1) Chloride Level 126 MEQ/L 126 MEQ/L 123 MEQ/L (98-107) (98-107) (98-107) Carbon Dioxide Level 20.5 MEQ/L 23.5 MEQ/L 25.4 MEQ/L (21.0-32.0) (21.0-32.0) (21.0-32.0) Anion Gap 11 MEQ/L (5-15) 6 MEQ/L (5-15) 8 MEQ/L (5-15) Blood Urea Nitrogen 15 MG/DL (7-18) 12 MG/DL (7-18) 10 MG/DL (7-18) Creatinine 0.94 MG/DL 0.86 MG/DL 0.90 MG/DL (0.60-1.30) (0.60-1.30) (0.60-1.30) Estimat Glomerular Filtration 77 ML/MIN (>89) 85 ML/MIN (>89) 81 ML/MIN (>89) Rate Random Glucose 173 MG/DL 200 MG/DL 194 MG/DL (74-106) (74-106) (74-106) Calcium Level 7.2 MG/DL 7.6 MG/DL 7.9 MG/DL (8.5-10.1) (8.5-10.1) (8.5-10.1) Protein Corrected Calcium 7.9 MG/DL (8.5-10.1) Phosphorus Level 2.4 MG/DL 2.0 MG/DL 1.5 MG/DL (2.5-4.9) (2.5-4.9) (2.5-4.9) Magnesium Level 2.0 MG/DL 2.3 MG/DL (1.5-2.5) (1.5-2.5) Total Protein 5.8 GM/DL (6.4-8.2) White Blood Count 9.3 TH/MM3 (4.0-11.0) Red Blood Count 3.83 MIL/MM3 (4.50-5.90) Hemoglobin 10.6 GM/DL (13.0-17.0) Hematocrit 32.4 % (39.0-51.0) Mean Corpuscular Volume 84.5 FL (80.0-100.0) Mean Corpuscular Hemoglobin 27.6 PG (27.0-34.0) Mean Corpuscular Hemoglobin 32.7 % Concent (32.0-36.0) Red Cell Distribution Width 17.2 % (11.6-17.2) Platelet Count 86 TH/MM3 (150-450) Mean Platelet Volume 9.6 FL (7.0-11.0) Neutrophils (%) (Auto) 81.9 % (16.0-70.0) Lymphocytes (%) (Auto) 11.3 % (9.0-44.0) Monocytes (%) (Auto) 3.3 % (0.0-8.0) Eosinophils (%) (Auto) 3.1 % (0.0-4.0) Basophils (%) (Auto) 0.4 % (0.0-2.0) Neutrophils # (Auto) 7.6 TH/MM3 (1.8-7.7) Lymphocytes # (Auto) 1.1 TH/MM3 (1.0-4.8) Monocytes # (Auto) 0.3 TH/MM3 (0-0.9) Eosinophils # (Auto) 0.3 TH/MM3 (0-0.4) Basophils # (Auto) 0.0 TH/MM3 (0-0.2) CBC Comment AUTO DIFF Differential Total Cells 100 Counted Neutrophils % (Manual) 81 % (16-70) Band Neutrophils % 2 % (0-6) Lymphocytes % 11 % (9-44) Monocytes % 2 % (0-8) Eosinophils % 4 % (0-4) Neutrophils # (Manual) 7.7 TH/MM3 (1.8-7.7) Differential Comment FINAL DIFF MANUAL Platelet Estimate LOW (NORMAL) Platelet Morphology Comment NORMAL (NORMAL) Red Cell Morphology Comment NORMAL (NORMAL) Test 06/06/16 06/06/16 06/07/16 05:00 09:40 04:25 Blood Gas Puncture Site LT RADIAL Blood Gas Patient Temperature 98.6 Blood Gas HCO3 22 mmol/L (22-26) Blood Gas Base Excess -1.9 mmol/L (-2-2) Blood Gas Oxygen Saturation 93 % (90-100) Arterial Blood pH 7.44 (7.380-7.420) Arterial Blood Partial 33 mmHg (38-42) Pressure CO2 Arterial Blood Partial 78 mmHg Pressure O2 (61-120) Arterial Blood Oxygen Content 15.2 Vol % (12.0-20.0) Arterial Blood 1.9 % (0-4) Carboxyhemoglobin Arterial Blood Methemoglobin 0.9 % (0-2) Blood Gas Hemoglobin 11.6 G/DL (12.0-16.0) Oxygen Delivery Device VENTILATOR Blood Gas Ventilator Setting COMMENT Blood Gas Inspired Oxygen 30 % Sodium Level 154 MEQ/L 153 MEQ/L (136-145) (136-145) Potassium Level 3.2 MEQ/L 3.7 MEQ/L (3.5-5.1) (3.5-5.1) Chloride Level 120 MEQ/L 122 MEQ/L (98-107) (98-107) Carbon Dioxide Level 24.4 MEQ/L 25.3 MEQ/L (21.0-32.0) (21.0-32.0) Anion Gap 10 MEQ/L (5-15) 6 MEQ/L (5-15) Blood Urea Nitrogen 10 MG/DL (7-18) 9 MG/DL (7-18) Creatinine 0.98 MG/DL 0.94 MG/DL (0.60-1.30) (0.60-1.30) Estimat Glomerular Filtration 73 ML/MIN (>89) 77 ML/MIN (>89) Rate Random Glucose 237 MG/DL 204 MG/DL (74-106) (74-106) Calcium Level 7.7 MG/DL 7.8 MG/DL (8.5-10.1) (8.5-10.1) White Blood Count 7.8 TH/MM3 (4.0-11.0) Red Blood Count 3.58 MIL/MM3 (4.50-5.90) Hemoglobin 10.1 GM/DL (13.0-17.0) Hematocrit 30.7 % (39.0-51.0) Mean Corpuscular Volume 85.9 FL (80.0-100.0) Mean Corpuscular Hemoglobin 28.3 PG (27.0-34.0) Mean Corpuscular Hemoglobin 32.9 % Concent (32.0-36.0) Red Cell Distribution Width 17.3 % (11.6-17.2) Platelet Count 90 TH/MM3 (150-450) Mean Platelet Volume 9.1 FL (7.0-11.0) Neutrophils (%) (Auto) 78.9 % (16.0-70.0) Lymphocytes (%) (Auto) 14.2 % (9.0-44.0) Monocytes (%) (Auto) 3.6 % (0.0-8.0) Eosinophils (%) (Auto) 2.7 % (0.0-4.0) Basophils (%) (Auto) 0.6 % (0.0-2.0) Neutrophils # (Auto) 6.1 TH/MM3 (1.8-7.7) Lymphocytes # (Auto) 1.1 TH/MM3 (1.0-4.8) Monocytes # (Auto) 0.3 TH/MM3 (0-0.9) Eosinophils # (Auto) 0.2 TH/MM3 (0-0.4) Basophils # (Auto) 0.0 TH/MM3 (0-0.2) CBC Comment DIFF FINAL Differential Comment Total Bilirubin 0.5 MG/DL (0.2-1.0) Aspartate Amino Transf 43 U/L (15-37) (AST/SGOT) Alanine Aminotransferase 32 U/L (12-78) (ALT/SGPT) Alkaline Phosphatase 74 U/L (45-117) Total Protein 5.8 GM/DL (6.4-8.2) Albumin 1.8 GM/DL (3.4-5.0) (Charlotte Hall) Result Diagram: 06/07/1642406/07/16424 Imaging Last Impressions Chest X-Ray 06/07/16 0600 Signed Impressions: Service Date/Time: Tuesday, June 07, 2016 05:08 - CONCLUSION: Improving aeration. Gary Mcgee MD Procedures * 06/04/16 -Intubated. * 06/04/16 -PEG tube replaced. * 06/04/16 -Left subclavian central line placed. . (Charlotte Hall) Assessment and Plan Disease Oriented Problem List: (1) Severe sepsis with acute organ dysfunction (2) Acute respiratory failure (3) Alzheimer's dementia Symptom Scale: (1) Shortness of breath 0-10 Scale: Unable to quantify Comment: Currently intubated on mech vent. Tolerating CPAP trials. (2) Debility 0-10 Scale: Unable to quantify Comment: Progressive, secondary to severe dementia. Bedbound at baseline. (3) Pain 0-10 Scale: Unable to quantify Comment: history of chronic pain. Pertinent Non-Medical Issues Psychosocial: . Has 2 children. SNF resident. Spiritual: Not spiritual. Legal: No living will completed. Ethical issues impacting care: No living will completed. who is serving as HCP relies on sons for share decision-making. . Important Contacts Kvng Amin and son Winifred . . Prognosis Mr. Amin is an 80 y/o male with a medical history significant for severe Alzheimer's dementia, anxiety, BPH and HNT who is bedbound and non-verbal at baseline. Patient admitted on 06/04/16 secondary to septic shock and acute respiratory failure. Patient remains intubated on mechanical ventilation. Baseline with documented progressive physical and cognitive decline, now total care at SNF. PEG placed on November secondary to dysphagia and failure to thrive , patient continued declining post PEG placement. Patient is at high risk for further complication, continued decline, and given his poor functional status and health at baseline. His prognosis is poor for an improved quality of life or long-term survival. . Code Status: Full Code Plan * FULL CODE * Patient incapacitated secondary to severe dementia. No HCS completed. As per [place] law, patient's Kvng Amin is healthcare proxy. also elderly , relying on her sons Ragesh and Milan to make healthcare decisions. Recommend share decision-making with and sons. * Goals of care: 06/07/16. FULL CODE. Family wishing for continuation of aggressive care to include intubation and mech ventilation when medically indicated. Family's goal is for patient to return to his SNF once medically stable -Patient total care/SNF dependent secondary to severe dementia. * Patient hospice appropriate; however, not in line with goals of care/family's wishes. FAST 7e at baseline, PPS 30% -PEG feeding. * Symptoms: shortness of breath, intubated on mech vent. Tolerating CPAP today. Debility: progressive secondary to severe dementia. Patient bedbound and total care at baseline. Pain, history of chronic pain. Tylenol as needed at SNF. Morphine and Tylenol available as needed. * Case discussed with bedside RN. * Palliative care contact information provided to patient's family. All questions were answered in great detail. * Palliative care to continue to f/y pt/family for further clarification of goals of care. . (Charlotte Hall) Time Spent Total Floor Time (mins): 33 (Total time to include review of medical records, physical exam, telephone conversation with son and case discussion with bedside RN. ) Face to Face Time (mins): 15 >50% Counseling/Coord of Care: Yes (Charlotte Hall) Attestation To help prompt me to consider important information that might be impacting today's encounter and assessment, information from prior notes written by myself or my colleagues may have been "brought forward" into today's note. My signature on this note, however, is an attestation that I personally performed the exam, history, and/or decision-making noted today, and, unless otherwise indicated, the interactions with patient, family, and staff as well as the review of records all occurred today. I also attest that the listed assessment and stated plan reflect my best clinical judgment today based on the combination of historical information, prior notes, and today's exam/ interactions. When time spent is documented, it refers only to time spent today by the signer, or if indicated, combined time spent today by collaborating physician/nurse practitioner. (Charlotte Hall) Collaborating MD Comments Chart reviewed. Case discussed with palliative care INSULATION ESTIMATOR. Above INSULATION ESTIMATOR note reviewed and I concur. . (Nader Joya MD) Charlotte Hall Jun 07, 2016 15:10 Nader Joya MD Jul 09, 2016 07:49
[2016-06-07 16:55] LABS: BLOOD, URINE SMALL (NEG); GLUCOSE,URINE NEG (NEG); HYALINE CAST, URINE 1 /lpf (RARE); KETONE, URINE NEG (NEG); MUCUS URINE FEW /lpf (OCC); NITRITE,URINE NEG (NEG); PH, URINE 7.5 (5.0-8.5); SQUAMOUS EPITHELIAL CELL URINE <1 /hpf (0-5); URINE COLOR LIGHT-YELLOW (YELLW/STRAW)
[2016-06-07 16:58] LABS: COMMENT (UR) CATH-CULT NOT IND; CULTURE IF INDICATED CATH CULTURE NOT IND
[2016-06-08] VITALS (23 sets, daily range): BP systolic 84–127; BP diastolic 46–67; PULSE 62–97; RESP 14–20; TEMP 99.2–101.2; O2SAT 94–100
[2016-06-08] MEDS: ACETAMINOPHEN 325 MG TAB PO PRN (00:02)
[2016-06-08] MEDS: INSULIN NovoLIN REGULAR SUPPLEMENTAL SCALE SQ SCH ×6 (00:10→20:58)
[2016-06-08] MEDS: FREE WATER G-TUBE SCH ×6 (03:31→20:00)
[2016-06-08] MEDS: CHLORHEXIDINE GLUCONATE 2 % 1 PACK (2 CLOTHS) TOP SCH (03:31)
[2016-06-08] MEDS: PIPERACIL-TAZO 3.375 GM PREMIX 50 ML IV SCH ×3 (03:31→20:51)
[2016-06-08] MEDS: RESP: ALBUTEROL 2.5 MG/IPRATROPIUM 0.5 MG NEB (SCH) NEB ×4 (03:46→19:40)
[2016-06-08 04:16] LABS: AUTOMATED NEUTROPHIL # 6.6 TH/MM3 (1.8-7.7); BASOPHIL % 0.5 % (0.0-2.0); EOSINOPHIL # 0.2 TH/MM3 (0-0.4); EOSINOPHIL % 1.8 % (0.0-4.0); HEMATOCRIT 27.2 % (39.0-51.0); LYMPH % 17.4 % (9.0-44.0); LYMPHOCYTE # 1.5 TH/MM3 (1.0-4.8); MEAN CELL VOLUME 85.6 FL (80.0-100.0); MEAN CORPUSCULAR HEMOGLOBIN 27.7 PG (27.0-34.0); MEAN CORPUSCULAR HGB CONC 32.4 % (32.0-36.0); MONO % 6.3 % (0.0-8.0); PLATELET COUNT 110 TH/MM3 (150-450); RED BLOOD COUNT 3.18 MIL/MM3 (4.50-5.90); RED CELL DISTRIBUTION WIDTH 17.1 % (11.6-17.2); WHITE BLOOD COUNT 8.9 TH/MM3 (4.0-11.0)
[2016-06-08 04:26] LABS: ALT (GPT) 31 U/L (12-78); ANION GAP 6 MEQ/L (5-15); AST (GOT) 37 U/L (15-37); BICARBONATE 24.5 MEQ/L (21.0-32.0); BLOOD UREA NITROGEN 10 MG/DL (7-18); CHLORIDE 117 MEQ/L (98-107); GLOMERULAR FILTRATION RATE 76 ML/MIN (>89); HEMO FLAGS AUTO DIFF; POTASSIUM 3.3 MEQ/L (3.5-5.1); SODIUM (NA) 147 MEQ/L (136-145)
[2016-06-08 04:29] LABS: ALKALINE PHOSPHATASE 57 U/L (45-117); TOTAL BILIRUBIN ADULT 0.6 MG/DL (0.2-1.0)
[2016-06-08] MEDS: POTASSIUM PHOSPHATE INJ 30 MMOL in SODIUM CHLOR 0.9% 250 ML INJ 250 ML IV PRN (05:28)
[2016-06-08 08:56] LABS: BANDS 2 % (0-6); BASOPHILS 1 % (0-2); NEUTROPHIL # MANUAL DIFF 6.1 TH/MM3 (1.8-7.7); PLASMA CELLS 1 % (0-0); POLYS (SEG NEUTROPHILS) 66 % (16-70); WBC DIFF SAMPLE 100
[2016-06-08 08:57] LABS: PLATELET ESTIMATE SMEAR LOW (NORMAL); PLATELET MORPHOLOGY NORMAL (NORMAL); SCAN/DIFF FINAL DIFF MANUAL
[2016-06-08] MEDS: PANTOPRAZOLE SODIUM 40 MG VIAL IV SCH (09:11)
[2016-06-08] MEDS: SODIUM CHLORIDE 0.9% FLUSH 5 ML FLUSH IV FLUSH SCH ×2 (09:11→20:51)
[2016-06-08] MEDS ORDERED: PHARMACY ORDERED LAB XX ONE (09:45)
[2016-06-08] MEDS: SODIUM CHLOR 0.45% 1000 ML INJ 1,000 ML IV SCH ×2 (11:05→23:00)
[2016-06-08] MEDS: PROPOFOL 1000 MG/100 ML INJ 100 ML IV SCH (11:26)
--- NOTE | 2016-06-08 13:01 | HHI.IDPN ---
Note Infectious Disease Note ID COVERAGE. Notes reviewed. Temp of 101 earlier this am. small amount of creamy secretions D/W RN. Antibiotics delores mejia Past Medical History Alzheimer's dementia, anxiety, BPH and HNT Allergies: Coded Allergies: No Known Allergies (Unverified , 01/04/16) Objective . Vital Signs Date Time Temp Pulse Resp B/P Pulse Ox O2 Delivery O2 Flow Rate FiO2 06/08/16 11:57 96 30 06/08/16 10:15 100 30 06/08/16 10:00 65 06/08/16 08:27 100 30 06/08/16 08:26 30 06/08/16 08:24 100 30 06/08/16 08:22 97 30 06/08/16 08:00 62 06/08/16 08:00 99.8 66 15 126/59 100 06/08/16 08:00 30 06/08/16 06:00 63 06/08/16 04:30 114/53 06/08/16 04:17 96 30 06/08/16 04:00 99.2 68 14 84/46 94 06/08/16 04:00 68 06/08/16 04:00 30 06/08/16 02:00 71 06/08/16 01:16 94 30 06/08/16 00:00 30 06/08/16 00:00 101.2 97 14 100/67 96 06/08/16 00:00 97 06/07/16 22:04 95 30 06/07/16 22:00 81 06/07/16 20:35 94 30 06/07/16 20:00 99.5 79 18 99/56 94 06/07/16 20:00 79 06/07/16 20:00 30 06/07/16 18:02 90 06/07/16 17:08 92 30 06/07/16 16:00 93 06/07/16 16:00 30 06/07/16 16:00 102.0 93 16 121/67 98 06/07/16 14:00 74 06/07/16 12:59 97 30 06/07/16 06/07/16 06/08/16 15:00 23:00 07:00 Intake Total 1333 ml 1860 ml 1280 ml Output Total 1450 ml 1000 ml 300 ml Balance -117 ml 860 ml 980 ml IV Total 500 ml 1500 ml 680 ml Tube Feeding 233 ml Other 600 ml 360 ml 600 ml Output Urine Total 1450 ml 1000 ml 300 ml Tube Feeding Residual Discard 0 ml # Bowel Movements 0 0 0 Laboratory Tests Test 06/07/16 06/08/16 04:25 03:30 White Blood Count 7.8 TH/MM3 8.9 TH/MM3 Red Blood Count 3.58 MIL/MM3 3.18 MIL/MM3 Hemoglobin 10.1 GM/DL 8.8 GM/DL Hematocrit 30.7 % 27.2 % Mean Corpuscular Volume 85.9 FL 85.6 FL Mean Corpuscular Hemoglobin 28.3 PG 27.7 PG Mean Corpuscular Hemoglobin 32.9 % 32.4 % Concent Red Cell Distribution Width 17.3 % 17.1 % Platelet Count 90 TH/MM3 110 TH/MM3 Mean Platelet Volume 9.1 FL 9.2 FL Neutrophils (%) (Auto) 78.9 % 74.0 % Lymphocytes (%) (Auto) 14.2 % 17.4 % Monocytes (%) (Auto) 3.6 % 6.3 % Eosinophils (%) (Auto) 2.7 % 1.8 % Basophils (%) (Auto) 0.6 % 0.5 % Neutrophils # (Auto) 6.1 TH/MM3 6.6 TH/MM3 Lymphocytes # (Auto) 1.1 TH/MM3 1.5 TH/MM3 Monocytes # (Auto) 0.3 TH/MM3 0.6 TH/MM3 Eosinophils # (Auto) 0.2 TH/MM3 0.2 TH/MM3 Basophils # (Auto) 0.0 TH/MM3 0.0 TH/MM3 CBC Comment DIFF FINAL AUTO DIFF Differential Comment FINAL DIFF MANUAL Differential Total Cells 100 Counted Neutrophils % (Manual) 66 % Band Neutrophils % 2 % Lymphocytes % 24 % Monocytes % 6 % Basophils % 1 % Neutrophils # (Manual) 6.1 TH/MM3 Plasma Cells 1 % Platelet Estimate LOW Platelet Morphology Comment NORMAL Laboratory Tests Test 06/07/16 06/08/16 04:25 03:30 Sodium Level 153 MEQ/L 147 MEQ/L Potassium Level 3.7 MEQ/L 3.3 MEQ/L Chloride Level 122 MEQ/L 117 MEQ/L Carbon Dioxide Level 25.3 MEQ/L 24.5 MEQ/L Anion Gap 6 MEQ/L 6 MEQ/L Blood Urea Nitrogen 9 MG/DL 10 MG/DL Creatinine 0.94 MG/DL 0.95 MG/DL Estimat Glomerular Filtration 77 ML/MIN 76 ML/MIN Rate Random Glucose 204 MG/DL 116 MG/DL Calcium Level 7.8 MG/DL 7.9 MG/DL Total Bilirubin 0.5 MG/DL 0.6 MG/DL Aspartate Amino Transf 43 U/L 37 U/L (AST/SGOT) Alanine Aminotransferase 32 U/L 31 U/L (ALT/SGPT) Alkaline Phosphatase 74 U/L 57 U/L Total Protein 5.8 GM/DL 5.3 GM/DL Albumin 1.8 GM/DL 1.7 GM/DL Microbiology Date/Time Procedure Status Source Growth 06/07/16 15:50 Aerobic Blood Culture - Preliminary Resulted Blood Peripheral NO GROWTH IN 1 DAY 06/07/16 15:50 Anaerobic Blood Culture - Preliminary Resulted Blood Peripheral NO GROWTH IN 1 DAY 06/07/16 15:55 Legionella Antigen - Final Complete Urine Random Urine PRESUMPTIVE NEGATIVE FOR LEGIONELLA P... 06/07/16 15:55 Streptococcus pneumoniae Antigen (M - Final Complete Urine Random Urine PRESUMPTIVE NEGATIVE FOR STREPTOCOCCU... 06/07/16 16:02 Aerobic Blood Culture - Preliminary Resulted Blood Peripheral NO GROWTH IN 1 DAY 06/07/16 16:02 Anaerobic Blood Culture - Preliminary Resulted Blood Peripheral NO GROWTH IN 1 DAY Imaging Chest X-Ray 06/07/16 0600 Signed Impressions: Service Date/Time: Tuesday, June 07, 2016 05:08 - CONCLUSION: Improving aeration. Gary Mcgee MD Physical Exam CONSTITUTIONAL/GENERAL: Unresponsive on the vent. EYES: Pupils equal and round and reactive. No scleral icterus. ENT: Nose without bleeding or purulent drainage. oral mucosae dry, NECK: Trachea midline. CARDIOVASCULAR: Regular rate and rhythm without murmurs, gallops, or rubs. RESPIRATORY/CHEST: Symmetric, unlabored respirations. Clear to auscultation. GASTROINTESTINAL: Abdomen soft, non-tender, nondistended. GENITOURINARY: Without palpable bladder distension. Mckeon catheter in place with clear light yellow urine MUSCULOSKELETAL: Extremities without clubbing, cyanosis, 2+ edema. SKIN: No jaundice, rashes, or lesions. Skin temperature appropriate. Not diaphoretic. NEUROLOGICAL: comatose; nonverbal; not responsive PSYCHIATRIC: unable to assess Assessment & Plan Remarks UTI, sepsis ARF, improved Acute VDRF - intubated ? PNA Persistent fever RECOMMENDATIONS. - fu repeat urine and blood clx - continue zosyn, adjust per renal - Continue azithromycin. - monitor temp. Cornel Ordoñez MD Jun 08, 2016 13:01
--- NOTE | 2016-06-08 16:49 | HHI.CCPN ---
Subjective Remarks/Hospital Course 80 y/o NH patient with severe dehydration, UTI sepsis, respiratory failure admitted earlier. Nonverbal, minimally responsive. Cachectic, anasarca. 06/05 Patient is sedated with Diprivan and intubated. On Insulin drip. PEG tube was replaced by GI yesterday. 06/06: Remains sedated, orally intubated on mech ventilation. 06/07: Remains sedated, orally intubated on mechanical ventilation. Daily C Pap trials ongoing. 06/08: Sedated, arousable, orally intubated on mechanical ventilation. Failed C Pap trials with low tidal volumes and decreasing pressure support today. Objective Vital Signs Date Time Temp Pulse Resp B/P Pulse Ox O2 Delivery O2 Flow Rate FiO2 06/08/16 16:38 98 30 06/08/16 16:00 80 06/08/16 16:00 99.4 20 112/59 06/06/16 09:31 Ventilator Intake and Output 06/07/16 06/07/16 06/08/16 08:00 16:00 00:00 Intake Total 925 ml 1333 ml 1860 ml Output Total 1050.0 ml 1450 ml 1000 ml Balance -125.0 ml -117 ml 860 ml Result Diagram: 06/08/16 0330 06/08/16 0330 Other Results Microbiology Date/Time Procedure Status Source Growth 06/07/16 15:55 Legionella Antigen - Final Complete Urine Random Urine PRESUMPTIVE NEGATIVE FOR LEGIONELLA P... 06/07/16 15:55 Streptococcus pneumoniae Antigen (M - Final Complete Urine Random Urine PRESUMPTIVE NEGATIVE FOR STREPTOCOCCU... Imaging Last Impressions Chest X-Ray 06/04/16 0219 Signed Impressions: Service Date/Time: Saturday, June 04, 2016 03:19 - CONCLUSION: 1. Satisfactory position of endotracheal tube as above. Rachid Lopez MD Objective Remarks GENERAL: Patient is 80 yo sedated and intubated SKIN: Warm and dry. HEAD: Normocephalic. EYES: No scleral icterus. No injection or drainage. NECK: Supple, trachea midline. No JVD or lymphadenopathy. CARDIOVASCULAR: Regular rate and rhythm without murmurs, gallops, or rubs. RESPIRATORY: Breath sounds equal bilaterally. No accessory muscle use. GASTROINTESTINAL: Abdomen soft, non-tender, nondistended. PEG tube is in place MUSCULOSKELETAL: No cyanosis, or edema. Contracted. Neuro: Sedated, intubated, arousable, not following commands. A/P Problem List: (1) Severe sepsis with acute organ dysfunction ICD Code: A41.9 Status: Acute (2) Acute respiratory failure ICD Code: J96.00 Status: Acute (3) UTI (urinary tract infection) ICD Code: N39.0 Status: Acute (4) Alzheimer's dementia ICD Code: F02.80 Status: Acute (5) Fever ICD Code: R50.9 Status: Acute (6) Global aphasia ICD Code: R47.02 Status: Acute Assessment and Plan 1)VDRF 2) Severe sepsis. 3) UTI. 4)Hyperglycemia 5)Hypernatremia, hypokalemia 6)Lactic acidemia..trending down 7)Dehydration 8)Anemia, thrombocytopenia 9) Protein Calorie Malnutrition. 10) Dementia, advanced. Nonverbal. Plan: Neuro: On Diprivan infusion for sedation, daily sedation vacation. Monitor neuro status. Pulm: Continue with vent support keep sat >92% Bronchodilators, ICU vent bundle. Daily C Pap trials to decide extubation CV:Monitor HR and BP keep MAP>65mmHg Continue with IVF, half normal saline in view of hypernatremia. : Monitor renal function, I/O's, electrolytes replacement per protocol. On Free water 300ml Q4, half normal saline in view of hypernatremia GI: Start TF -Glucerna 1.5 with goal rate 50ml/hr via PEG tube On Protonix.for GI prophylaxis Heme: Monitor CBC ID: Continue with abx -on Zosyn/Zithromax per ID. Endo: On SSI low-dose. GI prophylaxis- on Protonix 40mg daily DVT prophylaxis- hold Heparin SQ ( thrombocytopenia) Lines: Right subclavian CVP placed 06/04 Consulted palliative care to asses with goals of care. CCT 30 mins Sánchez Whitaker MD Jun 08, 2016 16:49
[2016-06-08] MEDS: AZITHROMYCIN INJ 500 MG in SODIUM CHLOR 0.9% 250 ML INJ 250 ML IV SCH (20:51)
[2016-06-09] VITALS (18 sets, daily range): BP systolic 106–155; BP diastolic 54–86; PULSE 67–92; RESP 12–24; TEMP 98.7–101.2; O2SAT 93–100
[2016-06-09] MEDS: ACETAMINOPHEN 325 MG TAB PO PRN ×2 (02:52→16:34)
[2016-06-09] MEDS: PROPOFOL 1000 MG/100 ML INJ 100 ML IV SCH ×3 (02:52→20:59)
[2016-06-09] MEDS: PIPERACIL-TAZO 3.375 GM PREMIX 50 ML IV SCH ×3 (02:59→20:59)
[2016-06-09] MEDS: FREE WATER G-TUBE SCH ×7 (02:59→23:12)
[2016-06-09] MEDS: CHLORHEXIDINE GLUCONATE 2 % 1 PACK (2 CLOTHS) TOP SCH (02:59)
[2016-06-09] MEDS: INSULIN NovoLIN REGULAR SUPPLEMENTAL SCALE SQ SCH ×7 (03:11→23:12)
[2016-06-09] MEDS: RESP: ALBUTEROL 2.5 MG/IPRATROPIUM 0.5 MG NEB (SCH) NEB ×4 (03:14→20:33)
[2016-06-09 04:44] LABS: AUTOMATED NEUTROPHIL # 5.3 TH/MM3 (1.8-7.7); BASOPHIL % 0.3 % (0.0-2.0); EOSINOPHIL # 0.1 TH/MM3 (0-0.4); EOSINOPHIL % 1.7 % (0.0-4.0); HEMATOCRIT 28.7 % (39.0-51.0); LYMPH % 16.3 % (9.0-44.0); LYMPHOCYTE # 1.2 TH/MM3 (1.0-4.8); MEAN CELL VOLUME 85.1 FL (80.0-100.0); MEAN CORPUSCULAR HEMOGLOBIN 28.7 PG (27.0-34.0); MEAN CORPUSCULAR HGB CONC 33.8 % (32.0-36.0); MONO % 6.3 % (0.0-8.0); NEUT % 75.4 % (16.0-70.0); PLATELET COUNT 131 TH/MM3 (150-450); RED BLOOD COUNT 3.37 MIL/MM3 (4.50-5.90); RED CELL DISTRIBUTION WIDTH 17.3 % (11.6-17.2); WHITE BLOOD COUNT 7.1 TH/MM3 (4.0-11.0)
[2016-06-09 04:46] LABS: HEMO FLAGS AUTO DIFF
[2016-06-09 05:07] LABS: ALKALINE PHOSPHATASE 75 U/L (45-117); ALT (GPT) 31 U/L (12-78); ANION GAP 9 MEQ/L (5-15); AST (GOT) 34 U/L (15-37); BICARBONATE 23.4 MEQ/L (21.0-32.0); BLOOD UREA NITROGEN 10 MG/DL (7-18); CHLORIDE 115 MEQ/L (98-107); GLOMERULAR FILTRATION RATE 75 ML/MIN (>89); POTASSIUM 3.5 MEQ/L (3.5-5.1); SODIUM (NA) 147 MEQ/L (136-145); TOTAL BILIRUBIN ADULT 0.5 MG/DL (0.2-1.0)
[2016-06-09 07:13] LABS: PLATELET ESTIMATE SMEAR LOW (NORMAL); PLATELET MORPHOLOGY NORMAL (NORMAL); SCAN/DIFF AUTO DIFF CONFIRMED
[2016-06-09] MEDS: PANTOPRAZOLE SODIUM 40 MG VIAL IV SCH (08:06)
[2016-06-09] MEDS: SODIUM CHLORIDE 0.9% FLUSH 5 ML FLUSH IV FLUSH SCH ×2 (08:06→20:59)
--- NOTE | 2016-06-09 10:23 | HHI.CCPN ---
Subjective Remarks/Hospital Course 80 y/o NH patient with severe dehydration, UTI sepsis, respiratory failure admitted earlier. Nonverbal, minimally responsive. Cachectic, anasarca. 06/05 Patient is sedated with Diprivan and intubated. On Insulin drip. PEG tube was replaced by GI yesterday. 06/06: Remains sedated, orally intubated on mech ventilation. 06/07: Remains sedated, orally intubated on mechanical ventilation. Daily C Pap trials ongoing. 06/08: Sedated, arousable, orally intubated on mechanical ventilation. Failed C Pap trials with low tidal volumes and decreasing pressure support today. Subjective 06/09: Afebrile. Feeling CPAP trials again today due to low tidal volumes. Tolerating tube feeding and free water boluses. Positive BM. Objective Vital Signs Date Time Temp Pulse Resp B/P Pulse Ox O2 Delivery O2 Flow Rate FiO2 06/09/16 10:12 30 06/09/16 08:23 97 06/09/16 08:00 98.7 75 19 133/61 06/06/16 09:31 Ventilator Intake and Output 06/08/16 06/08/16 06/09/16 08:00 16:00 00:00 Intake Total 1280 ml 1927 ml 1520 ml Output Total 300 ml 1250 ml 1900 ml Balance 980 ml 677 ml -380 ml Result Diagram: 06/09/16 0310 06/09/16 0310 Other Results Microbiology Date/Time Procedure Status Source Growth 06/07/16 16:02 Aerobic Blood Culture - Preliminary Resulted Blood Peripheral NO GROWTH IN 1 DAY 06/07/16 16:02 Anaerobic Blood Culture - Preliminary Resulted Blood Peripheral NO GROWTH IN 1 DAY 06/07/16 15:55 Legionella Antigen - Final Complete Urine Random Urine PRESUMPTIVE NEGATIVE FOR LEGIONELLA P... 06/07/16 15:55 Streptococcus pneumoniae Antigen (M - Final Complete Urine Random Urine PRESUMPTIVE NEGATIVE FOR STREPTOCOCCU... 06/04/16 13:37 Gram Stain - Final Complete Sputum Endotracheal 06/04/16 13:37 Sputum Culture - Final Complete Sputum Endotracheal HEAVY GROWTH NORMAL RESPIRATORY ROSA Imaging Last Impressions Chest X-Ray 06/07/16 0600 Signed Impressions: Service Date/Time: Tuesday, June 07, 2016 05:08 - CONCLUSION: Improving aeration. Gary Mcgee MD Objective Remarks GENERAL: 80 yo male patient, critically ill currently orotracheally intubated SKIN: Warm and dry. No rash. Positive sacral decubitus ulcer HEAD: Normocephalic. EYES: PERRL. No scleral icterus. No injection or drainage. NECK: Supple, trachea midline. No JVD or lymphadenopathy. CARDIOVASCULAR: Regular rate and rhythm with S1, S2. No S4. Without murmurs, gallops, or rubs. RESPIRATORY: Breath sounds equal bilaterally. No accessory muscle use. GASTROINTESTINAL: Abdomen soft, non-tender, nondistended. PEG tube is in place MUSCULOSKELETAL: With trace nonpitting peripheral edema. Contracted remedies. Neuro: Currently arousable but not following commands. Urinary Catheter: Yes Assessment to: Continue Mckeon insert reason: Prolonged Immobilization Vascular Central Line Catheter: Yes Assessment to: Continue Line: Central Venous Catheter Side: Left Location: Subclavian A/P Problem List: (1) Severe sepsis with acute organ dysfunction ICD Code: A41.9 Status: Acute (2) Acute respiratory failure ICD Code: J96.00 Status: Acute (3) UTI (urinary tract infection) ICD Code: N39.0 Status: Acute (4) Alzheimer's dementia ICD Code: F02.80 Status: Acute (5) Fever ICD Code: R50.9 Status: Acute (6) Global aphasia ICD Code: R47.02 Status: Acute Assessment and Plan Plan: Neuro/Psych: Depression/anxiety Alzheimer's dementia On Diprivan infusion at 10 mcg/kg per minute for sedation, Goal RASS -2 daily sedation vacation. Monitor neuro status. Pulm: Acute respiratory failure Continue with vent support keep sat >92% Currently on CPAP trial 20/5 and 30% ICU vent bundle. Bronchodilator therapy every 6 hours and as needed Daily C Pap trials to decide extubation CV:6 Hypertension Monitor HR and BP keep MAP>65mmHg Continue with IVF, half normal saline in view of hypernatremia. RENAL/: BPH Monitor renal function, I/O's, electrolytes replacement per protocol. GI: Anorexia Failure to thrive Gastroesophageal reflux disease Constipation Moderate protein calorie malnutrition Continue TF -Glucerna 1.5 with goal rate 50ml/hr via PEG tube On Protonix.for GI prophylaxis Not requiring bowel regimen Heme: Normocytic anemia Thrombocytopenia Monitor CBC ID: E. [place] UTI Pertinent cultures 06/04 - blood cultures 2 - no growth 1/15 - sputum - negative 06/04 - urine - E. [place] 06/07 - blood cultures 2 - negative Negative urine Legionella/pneumococcal antigens Continue with abx -on Zosyn/Zithromax per ID. Endo: Hyperglycemia of critical illness On SSI low-dose. FEN Hypernatremia Hypophosphatemia On free water 300 cc every 4 hours. Recheck sodium in AM. Recheck phosphorus replace as clinically indicated GI prophylaxis- on Protonix 40mg daily DVT prophylaxis- hold Heparin SQ ( thrombocytopenia) Lines: Right subclavian CVP placed 06/04 Consulted palliative care to asses with goals of care. Critical Care: The total critical care time was 45 minutes. Time to perform other separately billable procedures was not included in the critical care time. German Marinelli MD Jun 09, 2016 10:23
[2016-06-09] MEDS: SODIUM CHLOR 0.45% 1000 ML INJ 1,000 ML IV SCH ×2 (12:32→20:59)
--- NOTE | 2016-06-09 15:20 | HHI.IDPN ---
Note Infectious Disease Note ID COVERAGE. Notes reviewed. On vent. Low grade fever. Yellow oral secretions. Opens eyes to voice. No new events. Antibiotics zosyn roberto Past Medical History Alzheimer's dementia, anxiety, BPH and HNT Allergies: Coded Allergies: No Known Allergies (Unverified , 01/04/16) Objective Vital Signs Date Time Temp Pulse Resp B/P Pulse Ox O2 Delivery O2 Flow Rate FiO2 06/09/16 14:00 89 06/09/16 12:00 30 06/09/16 12:00 68 06/09/16 12:00 100.5 68 12 119/86 100 06/09/16 11:49 100 30 06/09/16 10:12 30 06/09/16 10:00 69 06/09/16 08:30 30 06/09/16 08:26 30 06/09/16 08:23 97 30 06/09/16 08:00 98.7 75 19 133/61 100 06/09/16 08:00 67 06/09/16 08:00 30 06/09/16 07:49 100 30 06/09/16 06:00 67 06/09/16 04:00 30 06/09/16 04:00 99.0 82 22 120/56 100 06/09/16 04:00 82 06/09/16 03:15 100 30 06/09/16 02:00 75 06/09/16 00:00 99.3 77 18 106/54 98 06/09/16 00:00 77 06/09/16 00:00 30 06/08/16 23:57 98 30 06/08/16 22:00 88 06/08/16 20:00 30 06/08/16 20:00 80 06/08/16 20:00 100.3 80 18 127/60 98 06/08/16 19:46 98 30 06/08/16 18:00 72 06/08/16 16:38 98 30 06/08/16 16:00 80 06/08/16 16:00 99.4 80 20 112/59 97 06/08/16 16:00 30 06/08/16 06/08/16 06/09/16 15:00 23:00 07:00 Intake Total 1927 ml 1520 ml 1485 ml Output Total 1250 ml 1900 ml 950 ml Balance 677 ml -380 ml 535 ml Intake Oral 0 ml 0 ml IV Total 556 ml 880 ml 570 ml Tube Feeding 351 ml 280 ml 255 ml Tube Irrigant 120 ml 60 ml 60 ml Other 900 ml 300 ml 600 ml Output Urine Total 1250 ml 1900 ml 950 ml # Bowel Movements 2 0 0 Laboratory Tests Test 06/08/16 06/09/16 03:30 03:10 White Blood Count 8.9 TH/MM3 7.1 TH/MM3 Red Blood Count 3.18 MIL/MM3 3.37 MIL/MM3 Hemoglobin 8.8 GM/DL 9.7 GM/DL Hematocrit 27.2 % 28.7 % Mean Corpuscular Volume 85.6 FL 85.1 FL Mean Corpuscular Hemoglobin 27.7 PG 28.7 PG Mean Corpuscular Hemoglobin 32.4 % 33.8 % Concent Red Cell Distribution Width 17.1 % 17.3 % Platelet Count 110 TH/MM3 131 TH/MM3 Mean Platelet Volume 9.2 FL 9.4 FL Neutrophils (%) (Auto) 74.0 % 75.4 % Lymphocytes (%) (Auto) 17.4 % 16.3 % Monocytes (%) (Auto) 6.3 % 6.3 % Eosinophils (%) (Auto) 1.8 % 1.7 % Basophils (%) (Auto) 0.5 % 0.3 % Neutrophils # (Auto) 6.6 TH/MM3 5.3 TH/MM3 Lymphocytes # (Auto) 1.5 TH/MM3 1.2 TH/MM3 Monocytes # (Auto) 0.6 TH/MM3 0.4 TH/MM3 Eosinophils # (Auto) 0.2 TH/MM3 0.1 TH/MM3 Basophils # (Auto) 0.0 TH/MM3 0.0 TH/MM3 CBC Comment AUTO DIFF AUTO DIFF Differential Total Cells 100 Counted Neutrophils % (Manual) 66 % Band Neutrophils % 2 % Lymphocytes % 24 % Monocytes % 6 % Basophils % 1 % Neutrophils # (Manual) 6.1 TH/MM3 Differential Comment FINAL DIFF AUTO DIFF MANUAL CONFIRMED Plasma Cells 1 % Platelet Estimate LOW LOW Platelet Morphology Comment NORMAL NORMAL Laboratory Tests Test 06/08/16 06/09/16 03:30 03:10 Sodium Level 147 MEQ/L 147 MEQ/L Potassium Level 3.3 MEQ/L 3.5 MEQ/L Chloride Level 117 MEQ/L 115 MEQ/L Carbon Dioxide Level 24.5 MEQ/L 23.4 MEQ/L Anion Gap 6 MEQ/L 9 MEQ/L Blood Urea Nitrogen 10 MG/DL 10 MG/DL Creatinine 0.95 MG/DL 0.96 MG/DL Estimat Glomerular Filtration 76 ML/MIN 75 ML/MIN Rate Random Glucose 116 MG/DL 210 MG/DL Calcium Level 7.9 MG/DL 7.8 MG/DL Total Bilirubin 0.6 MG/DL 0.5 MG/DL Aspartate Amino Transf 37 U/L 34 U/L (AST/SGOT) Alanine Aminotransferase 31 U/L 31 U/L (ALT/SGPT) Alkaline Phosphatase 57 U/L 75 U/L Total Protein 5.3 GM/DL 6.1 GM/DL Albumin 1.7 GM/DL 1.9 GM/DL Microbiology Date/Time Procedure Status Source Growth 06/07/16 15:50 Aerobic Blood Culture - Preliminary Resulted Blood Peripheral NO GROWTH IN 2 DAYS 06/07/16 15:50 Anaerobic Blood Culture - Preliminary Resulted Blood Peripheral NO GROWTH IN 2 DAYS 06/07/16 15:55 Legionella Antigen - Final Complete Urine Random Urine PRESUMPTIVE NEGATIVE FOR LEGIONELLA P... 06/07/16 15:55 Streptococcus pneumoniae Antigen (M - Final Complete Urine Random Urine PRESUMPTIVE NEGATIVE FOR STREPTOCOCCU... 06/07/16 16:02 Aerobic Blood Culture - Preliminary Resulted Blood Peripheral NO GROWTH IN 2 DAYS 06/07/16 16:02 Anaerobic Blood Culture - Preliminary Resulted Blood Peripheral NO GROWTH IN 2 DAYS Imaging Chest X-Ray 06/07/16 0600 Signed Impressions: Service Date/Time: Tuesday, June 07, 2016 05:08 - CONCLUSION: Improving aeration. Gary Mcgee MD Physical Exam CONSTITUTIONAL/GENERAL: Opens eyes to verbal stimuli. HEENT: Pupils equal and round and reactive. No scleral icterus. oral mucosae dry, NECK: Trachea midline. CARDIOVASCULAR: Regular rate and rhythm without murmurs, gallops, or rubs. RESPIRATORY/CHEST: Symmetric, unlabored respirations. Clear to auscultation. GASTROINTESTINAL: Abdomen soft, non-tender, nondistended. GENITOURINARY: Without palpable bladder distension. Mckeon catheter in place with clear light yellow urine MUSCULOSKELETAL: Extremities without clubbing, cyanosis, 2+ edema. SKIN: No jaundice, rashes, or lesions. Skin temperature appropriate. Not diaphoretic. NEUROLOGICAL: comatose; nonverbal; not responsive PSYCHIATRIC: unable to assess Assessment & Plan Remarks UTI, sepsis ARF, improved Acute VDRF - intubated ? PNA Persistent fever. Now low grade. RECOMMENDATIONS. - continue zosyn, adjust per renal - Continue Azithromycin. - monitor temp. - monitor clinical status. Cornel Ordoñez MD Jun 09, 2016 15:20
--- NOTE | 2016-06-09 16:36 | HHI.HCPN ---
Reason for visit a. To assist with evaluation and management of symptoms including: debility and shortness of breath. b. To assist medical decision maker(s) with: better understanding of current medical conditions; weighing benefits/burdens of medical treatment options; making medical treatment decisions. . (Charlotte Hall) Subjective/Interval History Patient seen in his room. No family at bedside. Ongoing CPAP trial. Eyes open but not tracking or following any commands. Febrile today with max temp 100.5, BP stable. WBC 7.1, hemoglobin 9.7, platelets trending up, today 131. Na 147, K 3.5, BUN/Creat 10/0.96. No new imaging. TC to patient's family, spoke with son Winifred. Medical update provided. Reviewed that patient has continued failing CPAP trails, discussed what this would mean long-term. Reviewed that if patient is still unable to tolerate CPAP/ wean off vent support, he will likely need tracheostomy. Discussed that even with a tracheostomy, some patients are still unable to liberate from vent support. Reviewed patient's progressive cognitive and physical decline within the past 4 years and his current needs to include total care secondary to severe dementia & bedbound state. Encouraged son to discuss tracheostomy vs comfort-directed care with his family. Palliative care to f/u. . Family/friend interactions See interval note. . (Charlotte Hall) Advance Directives Living Will: Never completed Health Care Surrogate: Never completed Durable Power of Environmental Field Team Member: Never completed (Charlotte Hall) Advance Directive Specifics Health Care Surrogate(s): No HCS completed. As per [place] law, patient Kvng Amin is HCP. also elderly, relying on her sons Winifred and Milan to make healthcare decisions. Documented care wishes: No living will completed. . Significant change in goals: Remain unchanged. FULL CODE. Family wishing for continuation of aggressive care to include intubation and mech ventilation when medically indicated. . (Charlotte Hall) Objective Vital Signs Date Time Temp Pulse Resp B/P Pulse Ox O2 Delivery O2 Flow Rate FiO2 06/09/16 15:54 96 30 06/09/16 14:00 89 06/09/16 12:00 30 06/09/16 12:00 68 06/09/16 12:00 100.5 68 12 119/86 100 06/09/16 11:49 100 30 06/09/16 10:12 30 06/09/16 10:00 69 06/09/16 08:30 30 06/09/16 08:26 30 06/09/16 08:23 97 30 06/09/16 08:00 98.7 75 19 133/61 100 06/09/16 08:00 67 06/09/16 08:00 30 06/09/16 07:49 100 30 06/09/16 06:00 67 06/09/16 04:00 30 06/09/16 04:00 99.0 82 22 120/56 100 06/09/16 04:00 82 06/09/16 03:15 100 30 06/09/16 02:00 75 06/09/16 00:00 99.3 77 18 106/54 98 06/09/16 00:00 77 06/09/16 00:00 30 06/08/16 23:57 98 30 06/08/16 22:00 88 06/08/16 20:00 30 06/08/16 20:00 80 06/08/16 20:00 100.3 80 18 127/60 98 06/08/16 19:46 98 30 06/08/16 18:00 72 06/08/16 16:38 98 30 Intake & Output 06/09/16 06/09/16 07:00 19:00 Intake Total 3005 ml 1704 ml Output Total 2850 ml 2300 ml Balance 155 ml -596 ml Intake Oral 0 ml IV Total 1450 ml 515 ml Tube Feeding 535 ml 169 ml Tube Irrigant 120 ml 120 ml Other 900 ml 900 ml Output Urine Total 2850 ml 1900 ml Stool Total 400 ml # Bowel Movements 0 Physical Exam CONSTITUTIONAL/GENERAL: This is a frail elderly man in no apparent distress. Intubated/mech ventilation. TUBES/LINES/DRAINS: ETT, OG, PEG, SCD's, PIV's, Left subclavian central line. SKIN: No jaundice or rashes. Scattered ecchymoses on upper extremities. Skin temperature appropriate. Not diaphoretic. Suspected deep tissue ulcer to right inner heel. HEAD: Atraumatic. Normocephalic. EYES: Pupils equal and round and reactive. No injection or drainage. ENT: Unable to assess hearing. Nose without bleeding or purulent drainage. Unable to evaluate throat due to ETT. Copious amounts of oral secretions. NECK: Trachea midline. Supple. CARDIOVASCULAR: Regular rate and rhythm without murmurs, gallops, or rubs. Weak pedal pulses bilat. RESPIRATORY/CHEST: Symmetric, unlabored respirations. clear, diminished. On mech ventilation/CPAP. GASTROINTESTINAL: Abdomen soft, round, large. PEG tube in place. Bowel sounds present. GENITOURINARY: Without palpable bladder distension. Mckeon catheter in place. MUSCULOSKELETAL: +2 edema to BUE, +1 edema to BLE. Bilateral knee contractures noted. NEUROLOGICAL: alert, eyes open. NOt following any command. Non-verbal at baseline. PSYCHIATRIC: Unable to assess due to clinical condition. Appears calm. . (Charlotte Hall) Diagnostic Tests Laboratory Laboratory Tests Test 06/07/16 06/07/16 06/08/16 06/09/16 04:25 15:55 03:30 03:10 White Blood Count 7.8 TH/MM3 8.9 TH/MM3 7.1 TH/MM3 (4.0-11.0) (4.0-11.0) (4.0-11.0) Red Blood Count 3.58 MIL/MM3 3.18 MIL/MM3 3.37 MIL/MM3 (4.50-5.90) (4.50-5.90) (4.50-5.90) Hemoglobin 10.1 GM/DL 8.8 GM/DL 9.7 GM/DL (13.0-17.0) (13.0-17.0) (13.0-17.0) Hematocrit 30.7 % 27.2 % 28.7 % (39.0-51.0) (39.0-51.0) (39.0-51.0) Mean Corpuscular Volume 85.9 FL 85.6 FL 85.1 FL (80.0-100.0) (80.0-100.0) (80.0-100.0) Mean Corpuscular Hemoglobin 28.3 PG 27.7 PG 28.7 PG (27.0-34.0) (27.0-34.0) (27.0-34.0) Mean Corpuscular Hemoglobin 32.9 % 32.4 % 33.8 % Concent (32.0-36.0) (32.0-36.0) (32.0-36.0) Red Cell Distribution Width 17.3 % 17.1 % 17.3 % (11.6-17.2) (11.6-17.2) (11.6-17.2) Platelet Count 90 TH/MM3 110 TH/MM3 131 TH/MM3 (150-450) (150-450) (150-450) Mean Platelet Volume 9.1 FL 9.2 FL 9.4 FL (7.0-11.0) (7.0-11.0) (7.0-11.0) Neutrophils (%) (Auto) 78.9 % 74.0 % 75.4 % (16.0-70.0) (16.0-70.0) (16.0-70.0) Lymphocytes (%) (Auto) 14.2 % 17.4 % 16.3 % (9.0-44.0) (9.0-44.0) (9.0-44.0) Monocytes (%) (Auto) 3.6 % (0.0-8.0) 6.3 % (0.0-8.0) 6.3 % (0.0-8.0) Eosinophils (%) (Auto) 2.7 % (0.0-4.0) 1.8 % (0.0-4.0) 1.7 % (0.0-4.0) Basophils (%) (Auto) 0.6 % (0.0-2.0) 0.5 % (0.0-2.0) 0.3 % (0.0-2.0) Neutrophils # (Auto) 6.1 TH/MM3 6.6 TH/MM3 5.3 TH/MM3 (1.8-7.7) (1.8-7.7) (1.8-7.7) Lymphocytes # (Auto) 1.1 TH/MM3 1.5 TH/MM3 1.2 TH/MM3 (1.0-4.8) (1.0-4.8) (1.0-4.8) Monocytes # (Auto) 0.3 TH/MM3 0.6 TH/MM3 0.4 TH/MM3 (0-0.9) (0-0.9) (0-0.9) Eosinophils # (Auto) 0.2 TH/MM3 0.2 TH/MM3 0.1 TH/MM3 (0-0.4) (0-0.4) (0-0.4) Basophils # (Auto) 0.0 TH/MM3 0.0 TH/MM3 0.0 TH/MM3 (0-0.2) (0-0.2) (0-0.2) CBC Comment DIFF FINAL AUTO DIFF AUTO DIFF Differential Comment FINAL DIFF AUTO DIFF MANUAL CONFIRMED Sodium Level 153 MEQ/L 147 MEQ/L 147 MEQ/L (136-145) (136-145) (136-145) Potassium Level 3.7 MEQ/L 3.3 MEQ/L 3.5 MEQ/L (3.5-5.1) (3.5-5.1) (3.5-5.1) Chloride Level 122 MEQ/L 117 MEQ/L 115 MEQ/L (98-107) (98-107) (98-107) Carbon Dioxide Level 25.3 MEQ/L 24.5 MEQ/L 23.4 MEQ/L (21.0-32.0) (21.0-32.0) (21.0-32.0) Anion Gap 6 MEQ/L (5-15) 6 MEQ/L (5-15) 9 MEQ/L (5-15) Blood Urea Nitrogen 9 MG/DL (7-18) 10 MG/DL (7-18) 10 MG/DL (7-18) Creatinine 0.94 MG/DL 0.95 MG/DL 0.96 MG/DL (0.60-1.30) (0.60-1.30) (0.60-1.30) Estimat Glomerular Filtration 77 ML/MIN (>89) 76 ML/MIN (>89) 75 ML/MIN (>89) Rate Random Glucose 204 MG/DL 116 MG/DL 210 MG/DL (74-106) (74-106) (74-106) Calcium Level 7.8 MG/DL 7.9 MG/DL 7.8 MG/DL (8.5-10.1) (8.5-10.1) (8.5-10.1) Total Bilirubin 0.5 MG/DL 0.6 MG/DL 0.5 MG/DL (0.2-1.0) (0.2-1.0) (0.2-1.0) Aspartate Amino Transf 43 U/L (15-37) 37 U/L (15-37) 34 U/L (15-37) (AST/SGOT) Alanine Aminotransferase 32 U/L (12-78) 31 U/L (12-78) 31 U/L (12-78) (ALT/SGPT) Alkaline Phosphatase 74 U/L (45-117) 57 U/L (45-117) 75 U/L (45-117) Total Protein 5.8 GM/DL 5.3 GM/DL 6.1 GM/DL (6.4-8.2) (6.4-8.2) (6.4-8.2) Albumin 1.8 GM/DL 1.7 GM/DL 1.9 GM/DL (3.4-5.0) (3.4-5.0) (3.4-5.0) Urine Color LIGHT-YELLOW (YELLW/STRAW) Urine Turbidity CLEAR (CLEAR) Urine pH 7.5 (5.0-8.5) Urine Specific [place] 1.014 (1.002-1.035) Urine Protein TRACE mg/dL (NEG-TRACE) Urine Glucose (UA) NEG mg/dL (NEG) Urine Ketones NEG mg/dL (NEG) Urine Occult Blood SMALL (NEG) Urine Nitrite NEG (NEG) Urine Bilirubin NEG (NEG) Urine Urobilinogen LESS THAN 2.0 MG/DL (LESS THAN 2.0) Urine Leukocyte Esterase NEG (NEG) Urine RBC 1 /hpf (0-3) Urine WBC 3 /hpf (0-5) Urine Squamous Epithelial <1 /hpf (0-5) Cells Urine Hyaline Casts 1 /lpf (RARE) Urine Mucus FEW /lpf (OCC) Microscopic Urinalysis Comment CATH-CULT NOT IND Differential Total Cells 100 Counted Neutrophils % (Manual) 66 % (16-70) Band Neutrophils % 2 % (0-6) Lymphocytes % 24 % (9-44) Monocytes % 6 % (0-8) Basophils % 1 % (0-2) Neutrophils # (Manual) 6.1 TH/MM3 (1.8-7.7) Plasma Cells 1 % (0-0) Platelet Estimate LOW (NORMAL) LOW (NORMAL) Platelet Morphology Comment NORMAL NORMAL (NORMAL) (NORMAL) (Charlotte Hall) Result Diagram: 06/09/160 06/09/160 Microbiology Microbiology Date/Time Procedure Status Source Growth 06/07/16 15:50 Aerobic Blood Culture - Preliminary Resulted Blood Peripheral NO GROWTH IN 2 DAYS 06/07/16 15:50 Anaerobic Blood Culture - Preliminary Resulted Blood Peripheral NO GROWTH IN 2 DAYS 06/07/16 15:55 Legionella Antigen - Final Complete Urine Random Urine PRESUMPTIVE NEGATIVE FOR LEGIONELLA P... 06/07/16 15:55 Streptococcus pneumoniae Antigen (M - Final Complete Urine Random Urine PRESUMPTIVE NEGATIVE FOR STREPTOCOCCU... 06/07/16 16:02 Aerobic Blood Culture - Preliminary Resulted Blood Peripheral NO GROWTH IN 2 DAYS 06/07/16 16:02 Anaerobic Blood Culture - Preliminary Resulted Blood Peripheral NO GROWTH IN 2 DAYS Imaging Last Impressions Chest X-Ray 06/07/16 0600 Signed Impressions: Service Date/Time: Tuesday, June 07, 2016 05:08 - CONCLUSION: Improving aeration. Gary Mcgee MD Procedures * 06/04/16 -Intubated. * 06/04/16 -PEG tube replaced. * 06/04/16 -Left subclavian central line placed. . (Charlotte Hall) Assessment and Plan Disease Oriented Problem List: (1) Severe sepsis with acute organ dysfunction (2) Acute respiratory failure (3) Alzheimer's dementia Symptom Scale: (1) Shortness of breath 0-10 Scale: Unable to quantify Comment: Currently intubated on mech vent. Currently unable to tolerate CPAP trials. (2) Debility 0-10 Scale: Unable to quantify Comment: Progressive, secondary to severe dementia. Bedbound at baseline. (3) Pain 0-10 Scale: Unable to quantify Comment: history of chronic pain. Pertinent Non-Medical Issues Psychosocial: . Has 2 children. SNF resident. Spiritual: Not spiritual. Legal: No living will completed. Ethical issues impacting care: No living will completed. who is serving as HCP relies on sons for share decision-making. . Important Contacts Kvng Amin and son Winifred . . Prognosis Mr. Amin is an 80 y/o male with a medical history significant for severe Alzheimer's dementia, anxiety, BPH and HNT who is bedbound and non-verbal at baseline. Patient admitted on 06/04/16 secondary to septic shock and acute respiratory failure. Patient remains intubated on mechanical ventilation. Baseline with documented progressive physical and cognitive decline, now total care at SNF. PEG placed on November secondary to dysphagia and failure to thrive , patient continued declining post PEG placement. Patient is at high risk for further complication, continued decline, and given his poor functional status and health at baseline. His prognosis is poor for an improved quality of life or long-term survival. . Code Status: Full Code Plan * FULL CODE * Patient incapacitated secondary to severe dementia. No HCS completed. As per [place] law, patient's Kvng Amin is healthcare proxy. also elderly , relying on her sons Winifred and Milan to make healthcare decisions. Recommend share decision-making with and sons. * Goals of care: 06/09/16. FULL CODE. Family wishing for continuation of aggressive care to include intubation and mech ventilation when medically indicated. Family's goal is for patient to return to his SNF once medically stable -Patient total care/SNF dependent secondary to severe dementia. TC to patient's family, spoke with son Winifred. Medical update provided. Reviewed that patient has continued failing CPAP trails, discussed what this would mean long- term. Reviewed that if patient is still unable to tolerate CPAP/wean off vent support, he will likely need tracheostomy. Discussed that tracheostomy does not guarantee pt's ability to liberate from vent support. Reviewed patient's progressive cognitive and physical decline within the past 4 years and his current needs to include total care secondary to severe dementia & bedbound state. Encouraged son to discuss tracheostomy vs comfort-directed care with his family. Palliative care to f/u. * Patient hospice appropriate; however, not in line with goals of care/family's wishes. FAST 7e at baseline, PPS 30% -PEG feeding. * Symptoms: shortness of breath, intubated on mech vent. Not tolerating CPAP, may require trach. Debility: progressive secondary to severe dementia. Patient bedbound and total care at baseline. Pain, history of chronic pain. Tylenol as needed at SNF. Morphine and Tylenol available as needed. * Palliative care contact information provided to patient's family. All questions were answered in great detail. * Palliative care to continue to f/y pt/family for further clarification of goals of care. . (Charlotte Hall) Time Spent Total Floor Time (mins): 33 (Total time to include review of medical records, physicall exam and telephone conversation with son. ) Face to Face Time (mins): 20 >50% Counseling/Coord of Care: Yes (Charlotte Hall) Attestation To help prompt me to consider important information that might be impacting today's encounter and assessment, information from prior notes written by myself or my colleagues may have been "brought forward" into today's note. My signature on this note, however, is an attestation that I personally performed the exam, history, and/or decision-making noted today, and, unless otherwise indicated, the interactions with patient, family, and staff as well as the review of records all occurred today. I also attest that the listed assessment and stated plan reflect my best clinical judgment today based on the combination of historical information, prior notes, and today's exam/ interactions. When time spent is documented, it refers only to time spent today by the signer, or if indicated, combined time spent today by collaborating physician/nurse practitioner. (Charlotte Hall) Collaborating MD Comments Chart reviewed. Case discussed with palliative care BLOCK TRADER. Above GUSTAVO note reviewed and I concur. . (Nader Joya MD) Charlotte Hall Jun 09, 2016 16:36 Nader Joya MD Jul 09, 2016 08:12
[2016-06-09 18:48] LABS: POTASSIUM 3.7 MEQ/L (3.5-5.1)
[2016-06-09] MEDS: DOCUSATE SODIUM 100 MG/10 ML UDC PO SCH (20:59)
[2016-06-09] MEDS: AZITHROMYCIN INJ 500 MG in SODIUM CHLOR 0.9% 250 ML INJ 250 ML IV SCH (20:59)
[2016-06-10] VITALS (19 sets, daily range): BP systolic 101–150; BP diastolic 55–158; PULSE 67–94; RESP 14–22; TEMP 98.5–99.1; O2SAT 92–100
[2016-06-10] MEDS: INSULIN NovoLIN REGULAR SUPPLEMENTAL SCALE SQ SCH ×6 (01:36→20:00)
[2016-06-10] MEDS: RESP: ALBUTEROL 2.5 MG/IPRATROPIUM 0.5 MG NEB (SCH) NEB ×4 (02:56→19:51)
[2016-06-10] MEDS: FREE WATER G-TUBE SCH ×5 (03:24→20:00)
[2016-06-10] MEDS: CHLORHEXIDINE GLUCONATE 2 % 1 PACK (2 CLOTHS) TOP SCH (03:24)
[2016-06-10] MEDS: PIPERACIL-TAZO 3.375 GM PREMIX 50 ML IV SCH ×3 (03:26→21:09)
[2016-06-10 05:17] LABS: AUTOMATED NEUTROPHIL # 4.9 TH/MM3 (1.8-7.7); BASOPHIL % 0.5 % (0.0-2.0); EOSINOPHIL # 0.1 TH/MM3 (0-0.4); EOSINOPHIL % 1.5 % (0.0-4.0); HEMATOCRIT 33.5 % (39.0-51.0); LYMPHOCYTE # 0.9 TH/MM3 (1.0-4.8); MEAN CELL VOLUME 85.6 FL (80.0-100.0); MEAN CORPUSCULAR HGB CONC 32.7 % (32.0-36.0); MONO % 5.2 % (0.0-8.0); NEUT % 77.8 % (16.0-70.0); PLATELET COUNT 149 TH/MM3 (150-450); RED BLOOD COUNT 3.91 MIL/MM3 (4.50-5.90); WHITE BLOOD COUNT 6.3 TH/MM3 (4.0-11.0)
[2016-06-10 05:28] LABS: HEMO FLAGS AUTO DIFF
[2016-06-10 05:48] LABS: ALT (GPT) 27 U/L (12-78); ANION GAP 7 MEQ/L (5-15); AST (GOT) 23 U/L (15-37); BICARBONATE 24.6 MEQ/L (21.0-32.0); BLOOD UREA NITROGEN 9 MG/DL (7-18); CHLORIDE 116 MEQ/L (98-107); GLOMERULAR FILTRATION RATE 76 ML/MIN (>89); MAGNESIUM 2.6 MG/DL (1.5-2.5); POTASSIUM 3.5 MEQ/L (3.5-5.1); SODIUM (NA) 148 MEQ/L (136-145)
[2016-06-10 05:51] LABS: ALKALINE PHOSPHATASE 78 U/L (45-117); TOTAL BILIRUBIN ADULT 0.4 MG/DL (0.2-1.0)
[2016-06-10 06:09] LABS: CREATINE KINASE 68 U/L (39-308)
[2016-06-10 06:34] LABS: TEARDROP RBCS 1+ (NORMAL)
[2016-06-10 06:35] LABS: PLATELET ESTIMATE SMEAR LOW (NORMAL); SCAN/DIFF AUTO DIFF CONFIRMED; STOMATOCYTES 1+ (NORMAL)
[2016-06-10] MEDS: SODIUM CHLORIDE 0.9% FLUSH 5 ML FLUSH IV FLUSH SCH ×2 (09:00→21:10)
[2016-06-10] MEDS: PROPOFOL 1000 MG/100 ML INJ 100 ML IV SCH ×2 (09:22→21:11)
[2016-06-10] MEDS: PANTOPRAZOLE SODIUM 40 MG VIAL IV SCH (09:22)
[2016-06-10] MEDS: DOCUSATE SODIUM 100 MG/10 ML UDC PO SCH ×2 (09:22→21:10)
[2016-06-10] MEDS: SODIUM CHLOR 0.45% 1000 ML INJ 1,000 ML IV SCH ×2 (09:23→21:10)
--- NOTE | 2016-06-10 12:30 | HHI.CCPN ---
Subjective Remarks/Hospital Course 80 y/o NH patient with severe dehydration, UTI sepsis, respiratory failure admitted earlier. Nonverbal, minimally responsive. Cachectic, anasarca. 06/05 Patient is sedated with Diprivan and intubated. On Insulin drip. PEG tube was replaced by GI yesterday. 06/06: Remains sedated, orally intubated on mech ventilation. 06/07: Remains sedated, orally intubated on mechanical ventilation. Daily C Pap trials ongoing. 06/08: Sedated, arousable, orally intubated on mechanical ventilation. Failed C Pap trials with low tidal volumes and decreasing pressure support today. Subjective 06/09: Afebrile. Feeling CPAP trials again today due to low tidal volumes. Tolerating tube feeding and free water boluses. Positive BM. Objective Vital Signs Date Time Temp Pulse Resp B/P Pulse Ox O2 Delivery O2 Flow Rate FiO2 06/10/16 10:00 80 06/10/16 08:00 30 06/10/16 08:00 99.1 101/58 98 06/06/16 09:31 Ventilator Intake and Output 06/09/16 06/09/16 06/10/16 08:00 16:00 00:00 Intake Total 1485 ml 1704 ml 1125 ml Output Total 950 ml 2300 ml 1400 ml Balance 535 ml -596 ml -275 ml Result Diagram: 06/10/16 0400 06/10/16 0400 Other Results Microbiology Date/Time Procedure Status Source Growth 06/07/16 15:55 Legionella Antigen - Final Complete Urine Random Urine PRESUMPTIVE NEGATIVE FOR LEGIONELLA P... 06/07/16 15:55 Streptococcus pneumoniae Antigen (M - Final Complete Urine Random Urine PRESUMPTIVE NEGATIVE FOR STREPTOCOCCU... Imaging Last Impressions Chest X-Ray 06/07/16 0600 Signed Impressions: Service Date/Time: Tuesday, June 07, 2016 05:08 - CONCLUSION: Improving aeration. Gary Mcgee MD Objective Remarks GENERAL: 80 yo male patient, critically ill currently orotracheally intubated SKIN: Warm and dry. No rash. Positive sacral decubitus ulcer HEAD: Normocephalic. EYES: PERRL. No scleral icterus. No injection or drainage. NECK: Supple, trachea midline. No JVD or lymphadenopathy. CARDIOVASCULAR: Regular rate and rhythm with S1, S2. No S4. Without murmurs, gallops, or rubs. RESPIRATORY: Breath sounds equal bilaterally. No accessory muscle use. GASTROINTESTINAL: Abdomen soft, non-tender, nondistended. PEG tube is in place MUSCULOSKELETAL: With trace nonpitting peripheral edema. Contracted remedies. Neuro: Currently arousable but not following commands. Line: Central Venous Catheter Side: Left Location: Subclavian A/P Problem List: (1) Severe sepsis with acute organ dysfunction ICD Code: A41.9 Status: Acute (2) Acute respiratory failure ICD Code: J96.00 Status: Acute (3) UTI (urinary tract infection) ICD Code: N39.0 Status: Acute (4) Alzheimer's dementia ICD Code: F02.80 Status: Acute (5) Fever ICD Code: R50.9 Status: Acute (6) Global aphasia ICD Code: R47.02 Status: Acute Assessment and Plan Plan: Neuro/Psych: Depression/anxiety Alzheimer's dementia On Diprivan infusion at 10 mcg/kg per minute for sedation, Goal RASS -2 daily sedation vacation. Monitor neuro status. Pulm: Acute respiratory failure Continue with vent support keep sat >92% Currently on CPAP trial 20/5 and 30% ICU vent bundle. Bronchodilator therapy every 6 hours and as needed Daily C Pap trials to decide extubation CV:6 Hypertension Monitor HR and BP keep MAP>65mmHg Continue with IVF, half normal saline in view of hypernatremia. RENAL/: BPH Monitor renal function, I/O's, electrolytes replacement per protocol. GI: Anorexia Failure to thrive Gastroesophageal reflux disease Constipation Moderate protein calorie malnutrition Continue TF -Glucerna 1.5 with goal rate 50ml/hr via PEG tube On Protonix.for GI prophylaxis Not requiring bowel regimen Heme: Normocytic anemia Thrombocytopenia Monitor CBC ID: E. [place] UTI Pertinent cultures 06/04 - blood cultures 2 - no growth 06/04 - sputum - negative 06/04 - urine - E. [place] 06/07 - blood cultures 2 - negative Negative urine Legionella/pneumococcal antigens Continue with abx -on Zosyn/Zithromax per ID. Endo: Hyperglycemia of critical illness On SSI low-dose. FEN Hypernatremia Hypophosphatemia On free water 300 cc every 4 hours. Recheck sodium in AM. Recheck phosphorus replace as clinically indicated GI prophylaxis- on Protonix 40mg daily DVT prophylaxis- hold Heparin SQ ( thrombocytopenia) Lines: Right subclavian CVP placed 06/04 Consulted palliative care to asses with goals of care. Critical Care: The total critical care time was 45 minutes. Time to perform other separately billable procedures was not included in the critical care time. German Marinelli MD Jun 10, 2016 12:30
--- NOTE | 2016-06-10 12:38 | HHI.CCPN ---
Subjective Remarks/Hospital Course 80 y/o NH patient with severe dehydration, UTI sepsis, respiratory failure admitted earlier. Nonverbal, minimally responsive. Cachectic, anasarca. 06/05 Patient is sedated with Diprivan and intubated. On Insulin drip. PEG tube was replaced by GI yesterday. 06/06: Remains sedated, orally intubated on mech ventilation. 06/07: Remains sedated, orally intubated on mechanical ventilation. Daily C Pap trials ongoing. 06/08: Sedated, arousable, orally intubated on mechanical ventilation. Failed C Pap trials with low tidal volumes and decreasing pressure support today. 06/09: Afebrile. Feeling CPAP trials again today due to low tidal volumes. Tolerating tube feeding and free water boluses. Positive BM. Subjective 06/10: Tmax 102. Currently 99.1. Currently a PSV trials. Extremely low tidal volumes however which requires extra pressure support. Eyes are open but does not follow commands. Objective Vital Signs Date Time Temp Pulse Resp B/P Pulse Ox O2 Delivery O2 Flow Rate FiO2 06/10/16 10:00 80 06/10/16 08:00 30 06/10/16 08:00 99.1 17 101/58 98 06/06/16 09:31 Ventilator Intake and Output 06/09/16 06/09/16 06/10/16 08:00 16:00 00:00 Intake Total 1485 ml 1704 ml 1125 ml Output Total 950 ml 2300 ml 1400 ml Balance 535 ml -596 ml -275 ml Result Diagram: 06/10/16 0400 06/10/16 0400 Other Results Microbiology Date/Time Procedure Status Source Growth 06/07/16 16:02 Aerobic Blood Culture - Preliminary Resulted Blood Peripheral NO GROWTH IN 3 DAYS 06/07/16 16:02 Anaerobic Blood Culture - Preliminary Resulted Blood Peripheral NO GROWTH IN 3 DAYS 06/07/16 15:55 Legionella Antigen - Final Complete Urine Random Urine PRESUMPTIVE NEGATIVE FOR LEGIONELLA P... 06/07/16 15:55 Streptococcus pneumoniae Antigen (M - Final Complete Urine Random Urine PRESUMPTIVE NEGATIVE FOR STREPTOCOCCU... Imaging Last Impressions Chest X-Ray 06/07/16 0600 Signed Impressions: Service Date/Time: Tuesday, June 07, 2016 05:08 - CONCLUSION: Improving aeration. aGry Mcgee MD Objective Remarks GENERAL: 80 yo male patient, critically ill currently orotracheally intubated SKIN: Warm and dry. No rash. Positive sacral decubitus ulcer HEAD: Normocephalic. EYES: PERRL. No scleral icterus. No injection or drainage. NECK: Supple, trachea midline. No JVD or lymphadenopathy. CARDIOVASCULAR: Regular rate and rhythm with S1, S2. No S4. Without murmurs, gallops, or rubs. RESPIRATORY: Breath sounds equal bilaterally. No accessory muscle use. GASTROINTESTINAL: Abdomen soft, non-tender, nondistended. PEG tube is in place MUSCULOSKELETAL: With trace nonpitting peripheral edema. Contracted remedies. Neuro: Currently arousable but not following commands. Line: Central Venous Catheter Side: Left Location: Subclavian A/P Problem List: (1) Severe sepsis with acute organ dysfunction ICD Code: A41.9 Status: Acute (2) Acute respiratory failure ICD Code: J96.00 Status: Acute (3) UTI (urinary tract infection) ICD Code: N39.0 Status: Acute (4) Alzheimer's dementia ICD Code: F02.80 Status: Acute (5) Fever ICD Code: R50.9 Status: Acute (6) Global aphasia ICD Code: R47.02 Assessment and Plan Plan: Neuro/Psych: Depression/anxiety Alzheimer's dementia On Diprivan infusion at 10 mcg/kg per minute for sedation, Goal RASS -2 daily sedation vacation. Monitor neuro status. Pulm: Acute respiratory failure Continue with vent support keep sat >92% Currently on CPAP trial 02/10 and 30% ICU vent bundle. Bronchodilator therapy every 6 hours and as needed Daily C Pap trials to decide extubation CV:6 Hypertension Monitor HR and BP keep MAP>65mmHg Continue with IVF, half normal saline in view of hypernatremia. RENAL/: BPH Monitor renal function, I/O's, electrolytes replacement per protocol. GI: Anorexia Failure to thrive Gastroesophageal reflux disease Constipation Moderate protein calorie malnutrition Continue TF -Glucerna 1.5 with goal rate 50ml/hr via PEG tube On Protonix.for GI prophylaxis Not requiring bowel regimen Heme: Normocytic anemia Thrombocytopenia Monitor CBC ID: E. [place] UTI Pertinent cultures 06/04 - blood cultures 2 - no growth 06/04 - sputum - negative 06/04 - urine - E. [place] 06/07 - blood cultures 2 - negative Negative urine Legionella/pneumococcal antigens Continue with abx -on Zosyn/Zithromax per ID. Endo: Hyperglycemia of critical illness On SSI he 6 hours/low-dose. FEN Hypernatremia Hypophosphatemia On free water 300 cc every 4 hours. Recheck sodium in AM. Recheck phosphorus replace with 30 mmol IV 1 GI prophylaxis- on Protonix 40mg daily DVT prophylaxis-continue Heparin SQ twice a day Lines: Right subclavian CVP placed 06/04 Consulted palliative care to asses with goals of care. Critical Care: The total critical care time was 45 minutes. Time to perform other separately billable procedures was not included in the critical care time. German Marinelli MD Jun 10, 2016 12:38 German Marinelli MD Jun 10, 2016 12:38
[2016-06-10] MEDS ORDERED: POTASSIUM PHOSPHATE INJ 30 MMOL in SODIUM CHLOR 0.9% 250 ML INJ 250 ML IV ONE (15:00)
[2016-06-10] MEDS: HEPARIN SODIUM - SQ 10,000 UNITS/ML VIAL SQ SCH ×2 (16:54→21:10)
[2016-06-10] MEDS: AZITHROMYCIN INJ 500 MG in SODIUM CHLOR 0.9% 250 ML INJ 250 ML IV SCH (21:10)
[2016-06-11] VITALS (19 sets, daily range): BP systolic 117–136; BP diastolic 57–63; PULSE 70–96; RESP 14–20; TEMP 98.8–100.1; O2SAT 63–100
[2016-06-11] MEDS: INSULIN NovoLIN REGULAR SUPPLEMENTAL SCALE SQ SCH ×7 (00:11→23:41)
[2016-06-11] MEDS: RESP: ALBUTEROL 2.5 MG/IPRATROPIUM 0.5 MG NEB (SCH) NEB ×4 (03:36→19:43)
[2016-06-11] MEDS: FREE WATER G-TUBE SCH ×7 (03:48→23:41)
[2016-06-11] MEDS: CHLORHEXIDINE GLUCONATE 2 % 1 PACK (2 CLOTHS) TOP SCH (03:48)
[2016-06-11] MEDS: PIPERACIL-TAZO 3.375 GM PREMIX 50 ML IV SCH ×3 (03:48→19:55)
--- NOTE | 2016-06-11 04:46 | RADRPT ---
EXAM DATE/TIME: 06/11/2016 03:55 [place] COMPARISON: CHEST SINGLE AP, June 06, 2016, 4:44. CHEST SINGLE AP, June 07, 2016, 5:08. INDICATIONS : Shortness of breath, possible pulmonary disease. MEDICAL HISTORY : Failure to thrive SURGICAL HISTORY : G-tube ENCOUNTER: Subsequent ACUITY: 1 week PAIN SCORE: Non-responsive. LOCATION: Bilateral chest FINDINGS: Endotracheal tube tip is at the level of the dario and is directed towards the right main bronchus. The lungs are symmetrically aerated, but there are some patchy areas of non-consolidative infiltrate in both lower lungs. Both hemidiaphragms remain well delineated. Left subclavian catheter tip proj ects over the mid superior vena cava. CONCLUSION: Persistent patchy infrahilar infiltrates bilaterally. The endotracheal tube is directed towards righ t main bronchus and should be withdrawn [address] MD on June 11, 2016 at 4:42 Board Certified Radiologist. This report was verified electronically.
[2016-06-11 04:58] LABS: MEAN CELL VOLUME 85.2 FL (80.0-100.0); MEAN CORPUSCULAR HEMOGLOBIN 28.2 PG (27.0-34.0); MEAN CORPUSCULAR HGB CONC 33.1 % (32.0-36.0); PLATELET COUNT 217 TH/MM3 (150-450); RED BLOOD COUNT 3.28 MIL/MM3 (4.50-5.90); RED CELL DISTRIBUTION WIDTH 17.1 % (11.6-17.2); REVIEW FLAG FINAL; WHITE BLOOD COUNT 8.8 TH/MM3 (4.0-11.0)
[2016-06-11 05:18] LABS: BICARBONATE 23.2 MEQ/L (21.0-32.0); MAGNESIUM 2.4 MG/DL (1.5-2.5); POTASSIUM 3.8 MEQ/L (3.5-5.1)
[2016-06-11] MEDS: SODIUM CHLORIDE 0.9% FLUSH 5 ML FLUSH IV FLUSH SCH ×2 (08:45→19:56)
[2016-06-11] MEDS: HEPARIN SODIUM - SQ 10,000 UNITS/ML VIAL SQ SCH ×2 (08:45→19:56)
[2016-06-11] MEDS: PANTOPRAZOLE SODIUM 40 MG VIAL IV SCH (08:45)
[2016-06-11] MEDS: DOCUSATE SODIUM 100 MG/10 ML UDC PO SCH ×2 (08:45→19:56)
[2016-06-11] MEDS: POTASSIUM PHOSPHATE INJ 30 MMOL in SODIUM CHLOR 0.9% 250 ML INJ 250 ML IV PRN (08:45)
[2016-06-11] MEDS: SODIUM CHLOR 0.45% 1000 ML INJ 1,000 ML IV SCH (08:48)
[2016-06-11] MEDS: PROPOFOL 1000 MG/100 ML INJ 100 ML IV SCH ×2 (12:12→20:38)
--- NOTE | 2016-06-11 17:21 | HHI.CCPN ---
Subjective Remarks/Hospital Course 80 y/o NH patient with severe dehydration, UTI sepsis, respiratory failure admitted earlier. Nonverbal, minimally responsive. Cachectic, anasarca. 06/05 Patient is sedated with Diprivan and intubated. On Insulin drip. PEG tube was replaced by GI yesterday. 06/06: Remains sedated, orally intubated on mech ventilation. 06/07: Remains sedated, orally intubated on mechanical ventilation. Daily C Pap trials ongoing. 06/08: Sedated, arousable, orally intubated on mechanical ventilation. Failed C Pap trials with low tidal volumes and decreasing pressure support today. 06/09: Afebrile. Feeling CPAP trials again today due to low tidal volumes. Tolerating tube feeding and free water boluses. Positive BM. Subjective 06/10: Tmax 102. Currently 99.1. Currently a PSV trials. Extremely low tidal volumes however which requires extra pressure support. Eyes are open but does not follow commands. 06/11: no change. failed PSV trail for tachypnea. still altered, but this is basline for him apparently. Objective Vital Signs Date Time Temp Pulse Resp B/P Pulse Ox O2 Delivery O2 Flow Rate FiO2 06/11/16 16:00 70 06/11/16 16:00 99.0 14 121/58 98 06/11/16 16:00 30 Intake and Output 06/10/16 06/10/16 06/11/16 08:00 16:00 00:00 Intake Total 1316 ml 1402 ml 1110 ml Output Total 1360 ml 1050 ml 1250 ml Balance -44 ml 352 ml -140 ml Result Diagram: 06/11/16 0355 06/11/16 0355 Imaging Last Impressions Chest X-Ray 06/07/16 0600 Signed Impressions: Service Date/Time: Tuesday, June 07, 2016 05:08 - CONCLUSION: Improving aeration. Gary Mcgee MD Objective Remarks GENERAL: 80 yo male patient, critically ill currently orotracheally intubated SKIN: Warm and dry. No rash. Positive sacral decubitus ulcer HEAD: Normocephalic. EYES: PERRL. No scleral icterus. No injection or drainage. NECK: Supple, trachea midline. No JVD or lymphadenopathy. CARDIOVASCULAR: Regular rate and rhythm with S1, S2. No S4. Without murmurs, gallops, or rubs. RESPIRATORY: Breath sounds equal bilaterally. No accessory muscle use. GASTROINTESTINAL: Abdomen soft, non-tender, nondistended. PEG tube is in place MUSCULOSKELETAL: With trace nonpitting peripheral edema. Contracted remedies. Neuro: Currently arousable but not following commands. Line: Central Venous Catheter Side: Left Location: Subclavian A/P Problem List: (1) Severe sepsis with acute organ dysfunction ICD Code: A41.9 Status: Acute (2) Acute respiratory failure ICD Code: J96.00 Status: Acute (3) UTI (urinary tract infection) ICD Code: N39.0 Status: Acute (4) Alzheimer's dementia ICD Code: F02.80 Status: Acute (5) Fever ICD Code: R50.9 Status: Acute (6) Global aphasia ICD Code: R47.02 Status: Acute Assessment and Plan Assessment: 80yM with acute hypoxic and hypercarbic respiratory failure and acute delirium on chronic dementia. prognosis poor. unlikely to separate from mechanical ventilation given age and comorbidities. family wants aggressive care. Plan: Neuro/Psych: Depression/anxiety Alzheimer's dementia Hypoactive delirium On Diprivan infusion at 10 mcg/kg per minute for sedation, Goal RASS -2 daily sedation vacation. Monitor neuro status. will add provigil for increased alertness. Pulm: Acute hypoxic and hypercarbic respiratory failure Continue with vent support keep sat >92% failed CPAP again today for tachypnea. ICU vent bundle. Bronchodilator therapy every 6 hours and as needed Daily C Pap trials to decide extubation CV: Hypertension Monitor HR and BP keep MAP>65mmHg Continue with IVF, half normal saline in view of hypernatremia. which is resolving. RENAL/: BPH Monitor renal function, I/O's, electrolytes replacement per protocol. GI: Anorexia Failure to thrive Gastroesophageal reflux disease Constipation Moderate protein calorie malnutrition Continue TF -Glucerna 1.5 with goal rate 50ml/hr via PEG tube On Protonix.for GI prophylaxis Not requiring bowel regimen Heme: Normocytic anemia Thrombocytopenia Monitor CBC ID: E. [place] UTI Pertinent cultures 06/04 - blood cultures 2 - no growth 06/04 - sputum - negative 06/04 - urine - E. [place] 06/07 - blood cultures 2 - negative Negative urine Legionella/pneumococcal antigens Continue with abx -on Zosyn/Zithromax per ID. Endo: Hyperglycemia of critical illness On SSI, q6h. increase to high scale. FEN Hypernatremia Hypophosphatemia On free water 300 cc every 4 hours. Recheck sodium in AM. GI prophylaxis- on Protonix 40mg daily DVT prophylaxis-continue Heparin SQ twice a day Lines: Right subclavian CVP placed 06/04 Consulted palliative care to asses with goals of care. Critical Care: The total critical care time was 33 minutes. Time to perform other separately billable procedures was not included in the critical care time. Kannan Morataya MD Jun 11, 2016 17:21
[2016-06-11] MEDS ORDERED: DEXTROSE 50% IN WATER 50 ML VIAL(D50) IV PUSH PRN (17:30)
[2016-06-11] MEDS: AZITHROMYCIN INJ 500 MG in SODIUM CHLOR 0.9% 250 ML INJ 250 ML IV SCH (19:57)
[2016-06-12] VITALS (18 sets, daily range): BP systolic 92–143; BP diastolic 54–71; PULSE 68–91; RESP 14–18; TEMP 100–100.6; O2SAT 96–100
[2016-06-12 01:09] LABS: POTASSIUM 3.7 MEQ/L (3.5-5.1)
[2016-06-12] MEDS: RESP: ALBUTEROL 2.5 MG/IPRATROPIUM 0.5 MG NEB (SCH) NEB ×4 (03:15→20:53)
[2016-06-12] MEDS: FREE WATER G-TUBE SCH ×6 (03:20→23:57)
[2016-06-12] MEDS: INSULIN NovoLIN REGULAR SUPPLEMENTAL SCALE SQ SCH ×6 (03:20→23:57)
[2016-06-12] MEDS: PIPERACIL-TAZO 3.375 GM PREMIX 50 ML IV SCH ×3 (03:20→21:23)
[2016-06-12] MEDS: SODIUM CHLOR 0.45% 1000 ML INJ 1,000 ML IV SCH ×2 (03:21→21:23)
[2016-06-12] MEDS: ACETAMINOPHEN 325 MG TAB PO PRN (03:37)
[2016-06-12] MEDS: CHLORHEXIDINE GLUCONATE 2 % 1 PACK (2 CLOTHS) TOP SCH (04:00)
[2016-06-12 04:56] LABS: HEMATOCRIT 26.8 % (39.0-51.0); MEAN CELL VOLUME 83.8 FL (80.0-100.0); MEAN CORPUSCULAR HEMOGLOBIN 28.3 PG (27.0-34.0); MEAN CORPUSCULAR HGB CONC 33.8 % (32.0-36.0); PLATELET COUNT 224 TH/MM3 (150-450); RED CELL DISTRIBUTION WIDTH 16.7 % (11.6-17.2); REVIEW FLAG FINAL; WHITE BLOOD COUNT 7.7 TH/MM3 (4.0-11.0)
[2016-06-12 05:17] LABS: BICARBONATE 23.9 MEQ/L (21.0-32.0); POTASSIUM 3.6 MEQ/L (3.5-5.1)
[2016-06-12] MEDS: MODAFINIL 200 MG TAB PO SCH ×2 (06:33→09:18)
[2016-06-12] MEDS: PANTOPRAZOLE SODIUM 40 MG VIAL IV SCH (09:00)
[2016-06-12] MEDS: HEPARIN SODIUM - SQ 10,000 UNITS/ML VIAL SQ SCH ×2 (09:17→21:25)
[2016-06-12] MEDS: SODIUM CHLORIDE 0.9% FLUSH 5 ML FLUSH IV FLUSH SCH ×2 (09:18→21:24)
[2016-06-12] MEDS: POTASSIUM PHOSPHATE MONOBASIC 500 MG TAB PO PRN (09:18)
[2016-06-12] MEDS: DOCUSATE SODIUM 100 MG/10 ML UDC PO SCH ×2 (09:18→21:24)
--- NOTE | 2016-06-12 14:09 | HHI.HCPN ---
Reason for visit a. To assist with evaluation and management of symptoms including: debility and shortness of breath. b. To assist medical decision maker(s) with: better understanding of current medical conditions; weighing benefits/burdens of medical treatment options; making medical treatment decisions. . Subjective/Interval History Patient seen in his room. No family at bedside. Ongoing CPAP trial. Eyes open but not tracking or following any commands. Febrile today with max temp 100.6, BP stable. WBC 7.7, hemoglobin 9.1, platelets trending up, today 224. Na 145, K 3.5, BUN/Creat 9/0.88. CXR 06/11 showing persistent patchy infiltrates bilaterally. 06/07 blood and urine cultures negative. Discussed case with Dr. Morataya. Patient failing CPAP over the weekend, tolerating today. Questions regarding medical extubation vs. trach. TC to patient's family, spoke with son Winifred. Medical update provided. Reviewed that patient has continued failing CPAP trails, discussed what this would mean long- term. Reviewed concerns regarding patient's ability to manage secretions/ maintain airway post medical extubation. Reviewed medical extubation vs. tracheostomy. Discussed that even with a tracheostomy, some patients are still unable to liberate from vent support. Reviewed patient's progressive cognitive and physical decline within the past 4 years and his current needs to include total care secondary to severe dementia & bedbound state. Code status readdressed. Family electing for continuation of aggressive care to include FULL CODE, and reintubation or tracheostomy if medically indicated. . Family/friend interactions See interval note. . Advance Directives Living Will: Never completed Health Care Surrogate: Never completed Durable Power of Head Rigger: Never completed Advance Directive Specifics Health Care Surrogate(s): No HCS completed. As per [place] law, patient Kvng Amin is HCP. also elderly, relying on her sons Winifred and Milan to make healthcare decisions. Documented care wishes: No living will completed. . Significant change in goals: FULL CODE to include aggressive care, reintubation/or trach if medically indicated. . Objective Vital Signs Date Time Temp Pulse Resp B/P Pulse Ox O2 Delivery O2 Flow Rate FiO2 06/12/16 11:49 96 30 06/12/16 10:00 74 06/12/16 08:29 30 06/12/16 08:24 98 30 06/12/16 08:00 70 06/12/16 08:00 30 06/12/16 06:00 76 06/12/16 04:29 14 06/12/16 04:06 98 30 06/12/16 04:00 74 06/12/16 04:00 30 06/12/16 04:00 100.5 75 17 92/54 100 06/12/16 02:00 72 06/12/16 01:05 100 30 06/12/16 00:00 75 06/12/16 00:00 100.6 75 14 131/60 100 06/12/16 00:00 30 06/11/16 22:02 96 30 06/11/16 22:00 86 06/11/16 20:00 100.1 81 15 117/57 99 06/11/16 20:00 30 06/11/16 20:00 85 06/11/16 19:41 100 30 06/11/16 18:00 79 06/11/16 16:00 70 06/11/16 16:00 99.0 75 14 121/58 98 06/11/16 16:00 30 06/11/16 14:24 100 30 06/11/16 14:00 79 Intake & Output 06/12/16 06/12/16 07:00 19:00 Intake Total 3783 ml Output Total 3350 ml Balance 433 ml Intake Oral 0 ml IV Total 1842 ml Tube Feeding 1041 ml Other 900 ml Output Urine Total 2750 ml Stool Total 600 ml Physical Exam CONSTITUTIONAL/GENERAL: This is a frail elderly man in no apparent distress. Intubated/mech ventilation. TUBES/LINES/DRAINS: ETT, OG, PEG, SCD's, PIV's, Left subclavian central line. SKIN: No jaundice or rashes. Scattered ecchymoses on upper extremities. Skin temperature appropriate. Not diaphoretic. Suspected deep tissue ulcer to right inner heel. HEAD: Atraumatic. Normocephalic. EYES: Pupils equal and round and reactive. No injection or drainage. ENT: Unable to assess hearing. Nose without bleeding or purulent drainage. Unable to evaluate throat due to ETT. Small amounts of clear oral secretions. NECK: Trachea midline. Supple. CARDIOVASCULAR: Regular rate and rhythm without murmurs, gallops, or rubs. Weak pedal pulses bilat. RESPIRATORY/CHEST: Symmetric, unlabored respirations. clear, diminished. On [facility] ventilation/CPAP. GASTROINTESTINAL: Abdomen hard, round, large. PEG tube in place. Bowel sounds present. GENITOURINARY: Without palpable bladder distension. Mckeon catheter in place. MUSCULOSKELETAL: +2 edema to BUE, +1 edema to BLE. Bilateral knee contractures noted. NEUROLOGICAL: alert, eyes open. Not following any command. Non-verbal at baseline. PSYCHIATRIC: Unable to assess due to clinical condition. Appears calm. . Diagnostic Tests Laboratory Laboratory Tests Test 06/09/16 06/10/16 06/11/16 06/12/16 16:28 04:00 03:55 00:36 Potassium Level 3.7 MEQ/L 3.5 MEQ/L 3.8 MEQ/L 3.7 MEQ/L (3.5-5.1) (3.5-5.1) (3.5-5.1) (3.5-5.1) Phosphorus Level 1.7 MG/DL 1.8 MG/DL 2.2 MG/DL 2.2 MG/DL (2.5-4.9) (2.5-4.9) (2.5-4.9) (2.5-4.9) White Blood Count 6.3 TH/MM3 8.8 TH/MM3 (4.0-11.0) (4.0-11.0) Red Blood Count 3.91 MIL/MM3 3.28 MIL/MM3 (4.50-5.90) (4.50-5.90) Hemoglobin 11.0 GM/DL 9.3 GM/DL (13.0-17.0) (13.0-17.0) Hematocrit 33.5 % 28.0 % (39.0-51.0) (39.0-51.0) Mean Corpuscular Volume 85.6 FL 85.2 FL (80.0-100.0) (80.0-100.0) Mean Corpuscular Hemoglobin 28.0 PG 28.2 PG (27.0-34.0) (27.0-34.0) Mean Corpuscular Hemoglobin 32.7 % 33.1 % Concent (32.0-36.0) (32.0-36.0) Red Cell Distribution Width 17.0 % 17.1 % (11.6-17.2) (11.6-17.2) Platelet Count 149 TH/MM3 217 TH/MM3 (150-450) (150-450) Mean Platelet Volume 9.2 FL 8.9 FL (7.0-11.0) (7.0-11.0) Neutrophils (%) (Auto) 77.8 % (16.0-70.0) Lymphocytes (%) (Auto) 15.0 % (9.0-44.0) Monocytes (%) (Auto) 5.2 % (0.0-8.0) Eosinophils (%) (Auto) 1.5 % (0.0-4.0) Basophils (%) (Auto) 0.5 % (0.0-2.0) Neutrophils # (Auto) 4.9 TH/MM3 (1.8-7.7) Lymphocytes # (Auto) 0.9 TH/MM3 (1.0-4.8) Monocytes # (Auto) 0.3 TH/MM3 (0-0.9) Eosinophils # (Auto) 0.1 TH/MM3 (0-0.4) Basophils # (Auto) 0.0 TH/MM3 (0-0.2) CBC Comment AUTO DIFF Differential Comment AUTO DIFF CONFIRMED Platelet Estimate LOW (NORMAL) Tear Drop Cells 1+ (NORMAL) Ovalocytes (NORMAL) Stomatocytes 1+ (NORMAL) Sodium Level 148 MEQ/L 145 MEQ/L (136-145) (136-145) Chloride Level 116 MEQ/L 112 MEQ/L (98-107) (98-107) Carbon Dioxide Level 24.6 MEQ/L 23.2 MEQ/L (21.0-32.0) (21.0-32.0) Anion Gap 7 MEQ/L (5-15) 10 MEQ/L (5-15) Blood Urea Nitrogen 9 MG/DL (7-18) 10 MG/DL (7-18) Creatinine 0.95 MG/DL 0.82 MG/DL (0.60-1.30) (0.60-1.30) Estimat Glomerular Filtration 76 ML/MIN (>89) 90 ML/MIN (>89) Rate Random Glucose 230 MG/DL 204 MG/DL (74-106) (74-106) Calcium Level 7.9 MG/DL 7.8 MG/DL (8.5-10.1) (8.5-10.1) Magnesium Level 2.6 MG/DL 2.4 MG/DL (1.5-2.5) (1.5-2.5) Total Bilirubin 0.4 MG/DL (0.2-1.0) Aspartate Amino Transf 23 U/L (15-37) (AST/SGOT) Alanine Aminotransferase 27 U/L (12-78) (ALT/SGPT) Alkaline Phosphatase 78 U/L (45-117) Total Creatine Kinase 68 U/L (39-308) Total Protein 6.4 GM/DL (6.4-8.2) Albumin 1.9 GM/DL (3.4-5.0) Test 06/12/16 03:30 White Blood Count 7.7 TH/MM3 (4.0-11.0) Red Blood Count 3.20 MIL/MM3 (4.50-5.90) Hemoglobin 9.1 GM/DL (13.0-17.0) Hematocrit 26.8 % (39.0-51.0) Mean Corpuscular Volume 83.8 FL (80.0-100.0) Mean Corpuscular Hemoglobin 28.3 PG (27.0-34.0) Mean Corpuscular Hemoglobin 33.8 % Concent (32.0-36.0) Red Cell Distribution Width 16.7 % (11.6-17.2) Platelet Count 224 TH/MM3 (150-450) Mean Platelet Volume 8.6 FL (7.0-11.0) Sodium Level 145 MEQ/L (136-145) Potassium Level 3.6 MEQ/L (3.5-5.1) Chloride Level 111 MEQ/L (98-107) Carbon Dioxide Level 23.9 MEQ/L (21.0-32.0) Anion Gap 10 MEQ/L (5-15) Blood Urea Nitrogen 9 MG/DL (7-18) Creatinine 0.88 MG/DL (0.60-1.30) Estimat Glomerular Filtration 83 ML/MIN (>89) Rate Random Glucose 168 MG/DL (74-106) Calcium Level 7.9 MG/DL (8.5-10.1) Result Diagram: 06/12/16 03306/12/16 033 Imaging Last Impressions Chest X-Ray 06/11/16 0600 Signed Impressions: Service Date/Time: Saturday, June 11, 2016 03:55 - CONCLUSION: Persistent patchy infrahilar infiltrates bilaterally. The endotracheal tube is directed towards right main bronchus and should be withdrawn [address] MD Procedures * 06/04/16 -Intubated. * 06/04/16 -PEG tube replaced. * 06/04/16 -Left subclavian central line placed. . Assessment and Plan Disease Oriented Problem List: (1) Severe sepsis with acute organ dysfunction (2) Acute respiratory failure (3) Alzheimer's dementia Symptom Scale: (1) Shortness of breath 0-10 Scale: Unable to quantify Comment: Currently intubated on mech vent. Currently unable to tolerate CPAP trials. (2) Debility 0-10 Scale: Unable to quantify Comment: Progressive, secondary to severe dementia. Bedbound at baseline. (3) Pain 0-10 Scale: Unable to quantify Comment: history of chronic pain. Pertinent Non-Medical Issues Psychosocial: . Has 2 children. SNF resident. Spiritual: Not spiritual. Legal: No living will completed. Ethical issues impacting care: No living will completed. who is serving as HCP relies on sons for share decision-making. . Important Contacts Kvng Amin and son Winifred . . Prognosis Mr. Amin is an 80 y/o male with a medical history significant for severe Alzheimer's dementia, anxiety, BPH and HNT who is bedbound and non-verbal at baseline. Patient admitted on 06/04/16 secondary to septic shock and acute respiratory failure. Patient remains intubated on mechanical ventilation. Baseline with documented progressive physical and cognitive decline, now total care at SNF. PEG placed on November secondary to dysphagia and failure to thrive , patient continued declining post PEG placement. Patient is at high risk for further complication, continued decline, and given his poor functional status and health at baseline. His prognosis is poor for an improved quality of life or long-term survival. . Code Status: Full Code Plan * FULL CODE * Patient incapacitated secondary to severe dementia. No HCS completed. As per [place] law, patient's Kvng Amin is healthcare proxy. also elderly , relying on her sons Dominickodin and Milan to make healthcare decisions. Recommend share decision-making with and sons. * Goals of care: 06/12/16. FULL CODE. Family wishing for continuation of aggressive care to include reintubation or tracheostomy if medically indicated. Discussed case with Dr. Morataya. Patient failing CPAP over the weekend, tolerating today. Questions regarding medical extubation vs. trach. TC to patient's family, spoke with son Winifred. Medical update provided. Reviewed that patient has continued failing CPAP trails, discussed what this would mean long- term. Reviewed concerns regarding patient's ability to manage secretions/ maintain airway if able to medically extubate. Reviewed medical extubation vs. tracheostomy. Discussed that even with a tracheostomy, some patients are still unable to liberate from vent support. Reviewed patient's progressive cognitive and physical decline within the past 4 years and his current needs to include total care secondary to severe dementia & bedbound state. Code status readdressed. Family electing for continuation of aggressive care to include FULL CODE, and reintubation or tracheostomy if medically indicated. * Patient hospice appropriate; however, not in line with goals of care/family's wishes. FAST 7e at baseline, PPS 30% -PEG feeding. * Symptoms: shortness of breath, intubated on mech vent. Not tolerating CPAP, may require trach. Debility: progressive secondary to severe dementia. Patient bedbound and total care at baseline. Pain, history of chronic pain. Tylenol as needed at SNF. Morphine and Tylenol available as needed. * Case discussed in great detail with Dr. Morataya. * Palliative care contact information provided to patient's family. All questions were answered in great detail. * Palliative care to continue to f/y pt/family for further clarification of goals of care. . Time Spent Total Floor Time (mins): 40 (Total time to include review of medical records, physical exam, telephone conversation with pt's son and case discussion with Dr. Morataya. ) Face to Face Time (mins): 18 >50% Counseling/Coord of Care: Yes Attestation To help prompt me to consider important information that might be impacting today's encounter and assessment, information from prior notes written by myself or my colleagues may have been "brought forward" into today's note. My signature on this note, however, is an attestation that I personally performed the exam, history, and/or decision-making noted today, and, unless otherwise indicated, the interactions with patient, family, and staff as well as the review of records all occurred today. I also attest that the listed assessment and stated plan reflect my best clinical judgment today based on the combination of historical information, prior notes, and today's exam/ interactions. When time spent is documented, it refers only to time spent today by the signer, or if indicated, combined time spent today by collaborating physician/nurse practitioner. Charlotte Hall Jun 12, 2016 14:09
--- NOTE | 2016-06-12 14:41 | HHI.IDPN ---
Note Infectious Disease Note ID COVERAGE. Notes reviewed. On vent. CPAP. Difficulty weaning. Low grade fever. Opens eyes to voice. No new events. WBC nl. Antibiotics vilman roberto Past Medical History Alzheimer's dementia, anxiety, BPH and HNT Allergies: Coded Allergies: No Known Allergies (Unverified , 01/04/16) Objective Vital Signs Date Time Temp Pulse Resp B/P Pulse Ox O2 Delivery O2 Flow Rate FiO2 06/12/16 14:00 72 06/12/16 12:00 74 06/12/16 12:00 30 06/12/16 11:49 96 30 06/12/16 10:00 74 06/12/16 08:29 30 06/12/16 08:24 98 30 06/12/16 08:00 70 06/12/16 08:00 30 06/12/16 06:00 76 06/12/16 04:29 14 06/12/16 04:06 98 30 06/12/16 04:00 74 06/12/16 04:00 30 06/12/16 04:00 100.5 75 17 92/54 100 06/12/16 02:00 72 06/12/16 01:05 100 30 06/12/16 00:00 75 06/12/16 00:00 100.6 75 14 131/60 100 06/12/16 00:00 30 06/11/16 22:02 96 30 06/11/16 22:00 86 06/11/16 20:00 100.1 81 15 117/57 99 06/11/16 20:00 30 06/11/16 20:00 85 06/11/16 19:41 100 30 06/11/16 18:00 79 06/11/16 16:00 70 06/11/16 16:00 99.0 75 14 121/58 98 06/11/16 16:00 30 06/11/16 06/11/16 06/12/16 14:59 22:59 06:59 Intake Total 1197 ml 2231 ml 1552 ml Output Total 1250 ml 2050 ml 1300 ml Balance -53 ml 181 ml 252 ml Intake Oral 0 ml 0 ml IV Total 805 ml 1207 ml 635 ml Tube Feeding 392 ml 724 ml 317 ml Other 300 ml 600 ml Output Urine Total 1000 ml 1750 ml 1000 ml Stool Total 250 ml 300 ml 300 ml Laboratory Tests Test 06/11/16 06/12/16 03:55 03:30 White Blood Count 8.8 TH/MM3 7.7 TH/MM3 Red Blood Count 3.28 MIL/MM3 3.20 MIL/MM3 Hemoglobin 9.3 GM/DL 9.1 GM/DL Hematocrit 28.0 % 26.8 % Mean Corpuscular Volume 85.2 FL 83.8 FL Mean Corpuscular Hemoglobin 28.2 PG 28.3 PG Mean Corpuscular Hemoglobin 33.1 % 33.8 % Concent Red Cell Distribution Width 17.1 % 16.7 % Platelet Count 217 TH/MM3 224 TH/MM3 Mean Platelet Volume 8.9 FL 8.6 FL Laboratory Tests Test 06/11/16 06/12/16 06/12/16 03:55 00:36 03:30 Sodium Level 145 MEQ/L 145 MEQ/L Potassium Level 3.8 MEQ/L 3.7 MEQ/L 3.6 MEQ/L Chloride Level 112 MEQ/L 111 MEQ/L Carbon Dioxide Level 23.2 MEQ/L 23.9 MEQ/L Anion Gap 10 MEQ/L 10 MEQ/L Blood Urea Nitrogen 10 MG/DL 9 MG/DL Creatinine 0.82 MG/DL 0.88 MG/DL Estimat Glomerular Filtration 90 ML/MIN 83 ML/MIN Rate Random Glucose 204 MG/DL 168 MG/DL Calcium Level 7.8 MG/DL 7.9 MG/DL Phosphorus Level 2.2 MG/DL 2.2 MG/DL Magnesium Level 2.4 MG/DL Imaging Chest X-Ray 06/11/16 0600 Signed Impressions: Service Date/Time: Saturday, June 11, 2016 03:55 - CONCLUSION: Persistent patchy infrahilar infiltrates bilaterally. The endotracheal tube is directed towards right main bronchus and should be withdrawn [address] MD Chest X-Ray 06/07/16 0600 Signed Impressions: Service Date/Time: Tuesday, June 07, 2016 05:08 - CONCLUSION: Improving aeration. Gary Mcgee MD Physical Exam CONSTITUTIONAL/GENERAL: Opens eyes to verbal stimuli. HEENT: Pupils equal and round and reactive. No scleral icterus. oral mucosae dry, NECK: Trachea midline. CARDIOVASCULAR: Regular rate and rhythm without murmurs, gallops, or rubs. RESPIRATORY/CHEST: Bibasilar rhonchi. GASTROINTESTINAL: Abdomen soft, non-tender, nondistended. MUSCULOSKELETAL: Extremities without clubbing, cyanosis, 2+ edema. SKIN: No jaundice, rashes, or lesions. NEUROLOGICAL: comatose; nonverbal; not responsive PSYCHIATRIC: unable to assess Assessment & Plan Remarks UTI, sepsis ARF, improved Acute VDRF - intubated ? PNA Persistent fever. Now low grade. RECOMMENDATIONS. - continue zosyn, adjust per renal - Continue Azithromycin. - monitor temp. - monitor clinical status. Cornel Ordoñez MD Jun 12, 2016 14:41
[2016-06-12] MEDS: AZITHROMYCIN INJ 500 MG in SODIUM CHLOR 0.9% 250 ML INJ 250 ML IV SCH (21:24)
--- NOTE | 2016-06-12 22:15 | HHI.CCPN ---
Subjective Remarks/Hospital Course 80 y/o NH patient with severe dehydration, UTI sepsis, respiratory failure admitted earlier. Nonverbal, minimally responsive. Cachectic, anasarca. 06/05 Patient is sedated with Diprivan and intubated. On Insulin drip. PEG tube was replaced by GI yesterday. 06/06: Remains sedated, orally intubated on mech ventilation. 06/07: Remains sedated, orally intubated on mechanical ventilation. Daily C Pap trials ongoing. 06/08: Sedated, arousable, orally intubated on mechanical ventilation. Failed C Pap trials with low tidal volumes and decreasing pressure support today. 06/09: Afebrile. Feeling CPAP trials again today due to low tidal volumes. Tolerating tube feeding and free water boluses. Positive BM. Subjective 06/10: Tmax 102. Currently 99.1. Currently a PSV trials. Extremely low tidal volumes however which requires extra pressure support. Eyes are open but does not follow commands. 06/11: no change. failed PSV trail for tachypnea. still altered, but this is baseline for him apparently. 06/12: no changes. slightly more awake, but not following commands, and still altered. discussed care with palliative who again talked with family, and they want aggressive measures. I think we will be forced to pursue tracheostomy, as I do not think it is safe to extubate this patient given mental status. Objective Vital Signs Date Time Temp Pulse Resp B/P Pulse Ox O2 Delivery O2 Flow Rate FiO2 06/12/16 20:56 98 30 06/12/16 18:00 68 06/12/16 16:00 100.3 15 108/55 Intake and Output 06/11/16 06/11/16 06/12/16 08:00 16:00 00:00 Intake Total 1210 ml 1197 ml 2231 ml Output Total 825 ml 1250 ml 2050 ml Balance 385 ml -53 ml 181 ml Result Diagram: 06/12/16 03306/12/16 033 Imaging Last Impressions Chest X-Ray 06/07/16 0600 Signed Impressions: Service Date/Time: Tuesday, June 07, 2016 05:08 - CONCLUSION: Improving aeration. Gary Mgcee MD Objective Remarks GENERAL: 80 yo male patient, critically ill currently orotracheally intubated SKIN: Warm and dry. No rash. Positive sacral decubitus ulcer HEAD: Normocephalic. EYES: PERRL. No scleral icterus. No injection or drainage. NECK: Supple, trachea midline. No JVD or lymphadenopathy. CARDIOVASCULAR: Regular rate and rhythm with S1, S2. No S4. Without murmurs, gallops, or rubs. RESPIRATORY: Breath sounds equal bilaterally. No accessory muscle use. GASTROINTESTINAL: Abdomen soft, non-tender, nondistended. PEG tube is in place MUSCULOSKELETAL: With trace nonpitting peripheral edema Neuro: Currently arousable but not following commands. Line: Central Venous Catheter Side: Left Location: Subclavian A/P Problem List: (1) Severe sepsis with acute organ dysfunction ICD Code: A41.9 Status: Acute (2) Acute respiratory failure ICD Code: J96.00 Status: Acute (3) UTI (urinary tract infection) ICD Code: N39.0 Status: Acute (4) Alzheimer's dementia ICD Code: F02.80 Status: Acute (5) Fever ICD Code: R50.9 Status: Acute (6) Global aphasia ICD Code: R47.02 Status: Acute Assessment and Plan Assessment: 80yM with acute hypoxic and hypercarbic respiratory failure and acute delirium on chronic dementia. prognosis poor. unlikely to separate from mechanical ventilation given age and comorbidities. family wants aggressive care. will plan for possible trach this week. would be good LTAC candidate. Plan: Neuro/Psych: Depression/anxiety Alzheimer's dementia Hypoactive delirium On Diprivan infusion at 10 mcg/kg per minute for sedation, Goal RASS -2 daily sedation vacation. Monitor neuro status. continue provigil for increased alertness. Pulm: Acute hypoxic and hypercarbic respiratory failure Continue with vent support keep sat >92% failed CPAP again today for tachypnea. ICU vent bundle. Bronchodilator therapy every 6 hours and as needed Daily C Pap trials to decide extubation --will likely need trach. CV: Hypertension Monitor HR and BP keep MAP>65mmHg Continue with IVF, half normal saline in view of hypernatremia. which is resolving. RENAL/: BPH Monitor renal function, I/O's, electrolytes replacement per protocol. GI: Anorexia Failure to thrive Gastroesophageal reflux disease Constipation Moderate protein calorie malnutrition Continue TF -Glucerna 1.5 with goal rate 50ml/hr via PEG tube On Protonix.for GI prophylaxis Not requiring bowel regimen Heme: Normocytic anemia Thrombocytopenia Monitor CBC ID: E. Cloacae UTI Pertinent cultures 06/04 - blood cultures 2 - no growth 06/04 - sputum - negative 06/04 - urine - E. Cloacae 06/07 - blood cultures 2 - negative Negative urine Legionella/pneumococcal antigens Continue with abx -on Zosyn/Zithromax per ID. Endo: Hyperglycemia of critical illness On SSI, q6h, high scale. much improved glycemic control today. FEN Hypernatremia Hypophosphatemia On free water 300 cc every 4 hours. Recheck sodium in AM. GI prophylaxis- on Protonix 40mg daily DVT prophylaxis-continue Heparin SQ twice a day Lines: Right subclavian CVP placed 06/04 Consulted palliative care to asses with goals of care. Critical Care: The total critical care time was 30 minutes. Time to perform other separately billable procedures was not included in the critical care time. Kannan Morataya MD Jun 12, 2016 22:15
[2016-06-13] VITALS (21 sets, daily range): BP systolic 95–158; BP diastolic 53–74; PULSE 71–99; RESP 15–30; TEMP 99–99.7; O2SAT 96–100
[2016-06-13] MEDS: MORPHINE SULFATE 4 MG/ML INJ IV PRN ×2 (02:14→20:13)
[2016-06-13] MEDS: RESP: ALBUTEROL 2.5 MG/IPRATROPIUM 0.5 MG NEB (SCH) NEB ×2 (03:36→08:39)
[2016-06-13] MEDS: INSULIN NovoLIN REGULAR SUPPLEMENTAL SCALE SQ SCH ×6 (03:53→23:35)
[2016-06-13] MEDS: CHLORHEXIDINE GLUCONATE 2 % 1 PACK (2 CLOTHS) TOP SCH (03:53)
[2016-06-13] MEDS: PIPERACIL-TAZO 3.375 GM PREMIX 50 ML IV SCH (03:53)
[2016-06-13] MEDS: FREE WATER G-TUBE SCH ×6 (03:53→23:35)
[2016-06-13 06:02] LABS: HEMATOCRIT 27.6 % (39.0-51.0); MEAN CELL VOLUME 84.2 FL (80.0-100.0); MEAN CORPUSCULAR HEMOGLOBIN 28.2 PG (27.0-34.0); MEAN CORPUSCULAR HGB CONC 33.5 % (32.0-36.0); PLATELET COUNT 283 TH/MM3 (150-450); RED BLOOD COUNT 3.28 MIL/MM3 (4.50-5.90); RED CELL DISTRIBUTION WIDTH 16.9 % (11.6-17.2); REVIEW FLAG FINAL
[2016-06-13 06:33] LABS: BICARBONATE 23.7 MEQ/L (21.0-32.0); POTASSIUM 3.5 MEQ/L (3.5-5.1)
[2016-06-13] MEDS: POTASSIUM CHLOR 40 MEQ PREMIX 100 ML IV PRN (08:49)
[2016-06-13] MEDS: SODIUM CHLORIDE 0.9% FLUSH 5 ML FLUSH IV FLUSH SCH ×2 (08:50→20:14)
[2016-06-13] MEDS: HEPARIN SODIUM - SQ 10,000 UNITS/ML VIAL SQ SCH ×2 (08:50→20:13)
[2016-06-13] MEDS: MODAFINIL 200 MG TAB PO SCH (08:50)
[2016-06-13] MEDS: PANTOPRAZOLE SODIUM 40 MG VIAL IV SCH (08:50)
[2016-06-13] MEDS: DOCUSATE SODIUM 100 MG/10 ML UDC PO SCH ×2 (08:50→20:13)
[2016-06-13] MEDS ORDERED: ROCURONIUM INJ 50 MG/5 ML VIAL ONE ×2 (11:03→11:05)
[2016-06-13] MEDS: CEFEPIME INJ 1,000 MG in SODIUM CHLORIDE 0.9% INJ 100 ML IV SCH ×2 (12:48→20:14)
[2016-06-13 13:52] LABS: BLOOD, URINE NEG (NEG); COMMENT (UR) CATH-CULT NOT IND; CULTURE IF INDICATED CATH CULTURE NOT IND; GLUCOSE,URINE NEG (NEG); KETONE, URINE NEG (NEG); NITRITE,URINE NEG (NEG); PH, URINE 6.5 (5.0-8.5); URINE COLOR LIGHT-YELLOW (YELLW/STRAW)
--- NOTE | 2016-06-13 13:54 | HHI.HCPN ---
Reason for visit a. To assist with evaluation and management of symptoms including: debility and shortness of breath. b. To assist medical decision maker(s) with: better understanding of current medical conditions; weighing benefits/burdens of medical treatment options; making medical treatment decisions. . Subjective/Interval History Patient seen in his room. No family at bedside. No acute events overnight. Pt Awake, opening eyes, not tracking. Not following any commands. Trach placed today secondary to mental status/severe dementia at baseline. Afebrile today, BP stable. WBC 9.0, hemoglobin 9.3, platelets trending up, today 283. Na 142, K 3.5, BUN/Creat 9/0.77. No new imaging today. Discussed case with Dr. Morataya. Telephone conversation with pt's son Winifred, medical update provided. Reviewed plan of care to include cont attempting at vent weaning. Discussed likelihood of LTAC at discharge. All questions answered. . Family/friend interactions See interval note. . Advance Directives Living Will: Never completed Health Care Surrogate: Never completed Durable Power of [employer]als[employer] Helper: Never completed Advance Directive Specifics Health Care Surrogate(s): No HCS completed. As per [place] law, patient Kvng Amin is HCP. also elderly, relying on her sons Winifred and Milan to make healthcare decisions. Documented care wishes: No living will completed. . Significant change in goals: FULL CODE. Continue aggressive care. Objective Vital Signs Date Time Temp Pulse Resp B/P Pulse Ox O2 Delivery O2 Flow Rate FiO2 06/13/16 12:42 98 100 06/13/16 12:00 30 06/13/16 12:00 82 06/13/16 10:24 99 30 06/13/16 10:00 79 06/13/16 08:00 30 06/13/16 08:00 85 06/13/16 07:42 30 06/13/16 07:41 98 30 06/13/16 07:37 98 30 06/13/16 06:00 80 06/13/16 04:00 99.7 83 15 136/63 100 06/13/16 04:00 83 06/13/16 04:00 30 06/13/16 03:39 99 30 06/13/16 02:00 90 06/13/16 00:28 96 30 06/13/16 00:00 83 06/13/16 00:00 99.7 83 17 122/60 96 06/13/16 00:00 30 06/12/16 22:00 91 06/12/16 20:56 98 30 06/12/16 20:00 100.6 91 18 143/66 99 06/12/16 20:00 30 06/12/16 20:00 91 06/12/16 18:15 96 30 06/12/16 18:00 68 06/12/16 16:00 77 06/12/16 16:00 100.3 87 15 108/55 96 06/12/16 16:00 30 06/12/16 14:00 72 Intake & Output 06/13/16 06/13/16 06:59 18:59 Intake Total 2319 ml Output Total 1600 ml Balance 719 ml IV Total 1169 ml Tube Feeding 550 ml Other 600 ml Output Urine Total 1600 ml Physical Exam CONSTITUTIONAL/GENERAL: This is a frail elderly man in no apparent distress. trach in place. TUBES/LINES/DRAINS: Trach, PEG, SCD's, PIV's, Left subclavian central line. SKIN: No jaundice or rashes. Scattered ecchymoses on upper extremities. Skin temperature appropriate. Not diaphoretic. Suspected deep tissue ulcer to right inner heel. HEAD: Atraumatic. Normocephalic. EYES: Pupils equal and round and reactive. No injection or drainage. ENT: Unable to assess hearing. Nose without bleeding or purulent drainage. Unable to evaluate throat due to ETT. Small amounts of clear oral secretions. NECK: Trachea midline. Supple. Trach in place. CARDIOVASCULAR: Regular rate and rhythm without murmurs, gallops, or rubs. Weak pedal pulses bilat. RESPIRATORY/CHEST: Symmetric, unlabored respirations. clear, diminished. On [facility] ventilation/CPAP. GASTROINTESTINAL: Abdomen hard, round, large. PEG tube in place. Bowel sounds present. GENITOURINARY: Without palpable bladder distension. Mckeon catheter in place. MUSCULOSKELETAL: +2 edema to BUE, +1 edema to BLE. Bilateral knee contractures noted. NEUROLOGICAL: alert, eyes open. Not following any command. Non-verbal at baseline. PSYCHIATRIC: Unable to assess due to clinical condition. Appears calm. . Diagnostic Tests Laboratory Laboratory Tests Test 06/11/16 06/12/16 06/12/16 06/13/16 03:55 00:36 03:30 04:40 White Blood Count 8.8 TH/MM3 7.7 TH/MM3 9.0 TH/MM3 (4.0-11.0) (4.0-11.0) (4.0-11.0) Red Blood Count 3.28 MIL/MM3 3.20 MIL/MM3 3.28 MIL/MM3 (4.50-5.90) (4.50-5.90) (4.50-5.90) Hemoglobin 9.3 GM/DL 9.1 GM/DL 9.3 GM/DL (13.0-17.0) (13.0-17.0) (13.0-17.0) Hematocrit 28.0 % 26.8 % 27.6 % (39.0-51.0) (39.0-51.0) (39.0-51.0) Mean Corpuscular Volume 85.2 FL 83.8 FL 84.2 FL (80.0-100.0) (80.0-100.0) (80.0-100.0) Mean Corpuscular Hemoglobin 28.2 PG 28.3 PG 28.2 PG (27.0-34.0) (27.0-34.0) (27.0-34.0) Mean Corpuscular Hemoglobin 33.1 % 33.8 % 33.5 % Concent (32.0-36.0) (32.0-36.0) (32.0-36.0) Red Cell Distribution Width 17.1 % 16.7 % 16.9 % (11.6-17.2) (11.6-17.2) (11.6-17.2) Platelet Count 217 TH/MM3 224 TH/MM3 283 TH/MM3 (150-450) (150-450) (150-450) Mean Platelet Volume 8.9 FL 8.6 FL 8.3 FL (7.0-11.0) (7.0-11.0) (7.0-11.0) Sodium Level 145 MEQ/L 145 MEQ/L 142 MEQ/L (136-145) (136-145) (136-145) Potassium Level 3.8 MEQ/L 3.7 MEQ/L 3.6 MEQ/L 3.5 MEQ/L (3.5-5.1) (3.5-5.1) (3.5-5.1) (3.5-5.1) Chloride Level 112 MEQ/L 111 MEQ/L 106 MEQ/L (98-107) (98-107) (98-107) Carbon Dioxide Level 23.2 MEQ/L 23.9 MEQ/L 23.7 MEQ/L (21.0-32.0) (21.0-32.0) (21.0-32.0) Anion Gap 10 MEQ/L (5-15) 10 MEQ/L (5-15) 12 MEQ/L (5-15) Blood Urea Nitrogen 10 MG/DL (7-18) 9 MG/DL (7-18) 9 MG/DL (7-18) Creatinine 0.82 MG/DL 0.88 MG/DL 0.77 MG/DL (0.60-1.30) (0.60-1.30) (0.60-1.30) Estimat Glomerular Filtration 90 ML/MIN (>89) 83 ML/MIN (>89) 97 ML/MIN (>89) Rate Random Glucose 204 MG/DL 168 MG/DL 169 MG/DL (74-106) (74-106) (74-106) Calcium Level 7.8 MG/DL 7.9 MG/DL 8.6 MG/DL (8.5-10.1) (8.5-10.1) (8.5-10.1) Phosphorus Level 2.2 MG/DL 2.2 MG/DL (2.5-4.9) (2.5-4.9) Magnesium Level 2.4 MG/DL (1.5-2.5) Result Diagram: 06/13/16 0440 06/13/16 0440 Imaging Last Impressions Chest X-Ray 06/11/16 0600 Signed Impressions: Service Date/Time: Saturday, June 11, 2016 03:55 - CONCLUSION: Persistent patchy infrahilar infiltrates bilaterally. The endotracheal tube is directed towards right main bronchus and should be withdrawn [address] MD Procedures * 06/13/16 -Trach placed. * 06/04/16 -Intubated. * 06/04/16 -PEG tube replaced. * 06/04/16 -Left subclavian central line placed. . Assessment and Plan Disease Oriented Problem List: (1) Severe sepsis with acute organ dysfunction (2) Acute respiratory failure (3) Alzheimer's dementia Symptom Scale: (1) Shortness of breath 0-10 Scale: Unable to quantify Comment: s/p trach. (2) Debility 0-10 Scale: Unable to quantify Comment: Progressive, secondary to severe dementia. Bedbound at baseline. (3) Pain 0-10 Scale: Unable to quantify Comment: history of chronic pain. Pertinent Non-Medical Issues Psychosocial: . Has 2 children. SNF resident. Spiritual: Not spiritual. Legal: No living will completed. Ethical issues impacting care: No living will completed. who is serving as HCP relies on sons for share decision-making. . Important Contacts Kvng Amin and son Winifred . . Prognosis Mr. Amin is an 80 y/o male with a medical history significant for severe Alzheimer's dementia, anxiety, BPH and HNT who is bedbound and non-verbal at baseline. Patient admitted on 06/04/16 secondary to septic shock and acute respiratory failure. Patient remains intubated on mechanical ventilation. Baseline with documented progressive physical and cognitive decline, now total care at SNF. PEG placed on November secondary to dysphagia and failure to thrive , patient continued declining post PEG placement. Patient is at high risk for further complication, continued decline, and given his poor functional status and health at baseline. His prognosis is poor for an improved quality of life or long-term survival. . Code Status: Full Code Plan * FULL CODE * Patient incapacitated secondary to severe dementia. No HCS completed. As per [place] law, patient's Kvng Amin is healthcare proxy. also elderly , relying on her sons Winifred and Milan to make healthcare decisions. Recommend share decision-making with and sons. * Goals of care: 06/13/16. FULL CODE. Goals remain unchanged. Family wishing for continuation of aggressive care to include tracheostomy. * Patient hospice appropriate; however, not in line with goals of care/family's wishes. FAST 7e at baseline, PPS 30% -PEG feeding. * Symptoms: shortness of breath, s/p trach this morning. may require LTAC at discharge. Debility: progressive secondary to severe dementia. Patient bedbound and total care at baseline. Pain, history of chronic pain. Tylenol as needed at SNF. Morphine and Tylenol available as needed. * Case discussed with Dr. Morataya. * Palliative care contact information provided to patient's family. All questions were answered in great detail. * Palliative care to continue to f/y pt/family for further clarification of goals of care. . Time Spent Total Floor Time (mins): 28 (Total time to include review of medical records, physical exam, telephone conversation with son and case discussion with Dr. Morataya. ) Face to Face Time (mins): 15 >50% Counseling/Coord of Care: Yes Attestation To help prompt me to consider important information that might be impacting today's encounter and assessment, information from prior notes written by myself or my colleagues may have been "brought forward" into today's note. My signature on this note, however, is an attestation that I personally performed the exam, history, and/or decision-making noted today, and, unless otherwise indicated, the interactions with patient, family, and staff as well as the review of records all occurred today. I also attest that the listed assessment and stated plan reflect my best clinical judgment today based on the combination of historical information, prior notes, and today's exam/ interactions. When time spent is documented, it refers only to time spent today by the signer, or if indicated, combined time spent today by collaborating physician/nurse practitioner. Charlotte Hall Jun 13, 2016 13:54
--- NOTE | 2016-06-13 14:16 | HHI.CCPN ---
Subjective Remarks/Hospital Course 80 y/o NH patient with severe dehydration, UTI sepsis, respiratory failure admitted earlier. Nonverbal, minimally responsive. Cachectic, anasarca. 06/05 Patient is sedated with Diprivan and intubated. On Insulin drip. PEG tube was replaced by GI yesterday. 06/06: Remains sedated, orally intubated on mech ventilation. 06/07: Remains sedated, orally intubated on mechanical ventilation. Daily C Pap trials ongoing. 06/08: Sedated, arousable, orally intubated on mechanical ventilation. Failed C Pap trials with low tidal volumes and decreasing pressure support today. 06/09: Afebrile. Feeling CPAP trials again today due to low tidal volumes. Tolerating tube feeding and free water boluses. Positive BM. Subjective 06/10: Tmax 102. Currently 99.1. Currently a PSV trials. Extremely low tidal volumes however which requires extra pressure support. Eyes are open but does not follow commands. 06/11: no change. failed PSV trail for tachypnea. still altered, but this is baseline for him apparently. 06/12: no changes. slightly more awake, but not following commands, and still altered. discussed care with palliative who again talked with family, and they want aggressive measures. I think we will be forced to pursue tracheostomy, as I do not think it is safe to extubate this patient given mental status. 06/13: again failed SBT. RSBI 105 with persistent altered mental status. will pursue tracheostomy today. Objective Vital Signs Date Time Temp Pulse Resp B/P Pulse Ox O2 Delivery O2 Flow Rate FiO2 06/13/16 13:42 100 40 06/13/16 12:00 82 06/13/16 04:00 99.7 15 136/63 Intake and Output 06/12/16 06/12/16 06/13/16 08:00 16:00 00:00 Intake Total 1552 ml 1454 ml Output Total 1300 ml 1500 ml 350 ml Balance 252 ml -46 ml -350 ml Result Diagram: 06/13/16 0440 06/13/16 0440 Imaging Last Impressions Chest X-Ray 06/07/16 0600 Signed Impressions: Service Date/Time: Tuesday, June 07, 2016 05:08 - CONCLUSION: Improving aeration. Gary Mcgee MD Objective Remarks GENERAL: 80 yo male patient, critically ill currently orotracheally intubated SKIN: Warm and dry. No rash. Positive sacral decubitus ulcer HEAD: Normocephalic. EYES: PERRL. No scleral icterus. No injection or drainage. NECK: Supple, trachea midline. No JVD or lymphadenopathy. CARDIOVASCULAR: Regular rate and rhythm with S1, S2. No S4. Without murmurs, gallops, or rubs. RESPIRATORY: Breath sounds equal bilaterally. No accessory muscle use. GASTROINTESTINAL: Abdomen soft, non-tender, nondistended. PEG tube is in place MUSCULOSKELETAL: With trace nonpitting peripheral edema Neuro: Currently arousable but not following commands. Line: Central Venous Catheter Side: Left Location: Subclavian A/P Problem List: (1) Severe sepsis with acute organ dysfunction ICD Code: A41.9 Status: Acute (2) Acute respiratory failure ICD Code: J96.00 Status: Acute (3) UTI (urinary tract infection) ICD Code: N39.0 Status: Acute (4) Alzheimer's dementia ICD Code: F02.80 Status: Acute (5) Fever ICD Code: R50.9 Status: Acute (6) Global aphasia ICD Code: R47.02 Status: Acute Assessment and Plan Assessment: 80yM with acute hypoxic and hypercarbic respiratory failure and acute delirium on chronic dementia. prognosis poor. unlikely to separate from mechanical ventilation given age and comorbidities. family wants aggressive care. will plan for possible trach today. would be good LTAC candidate. Plan: Neuro/Psych: Depression/anxiety Alzheimer's dementia Hypoactive delirium propofol for sedation. Goal RASS -2 daily sedation vacation. Monitor neuro status. continue provigil for increased alertness. Pulm: Acute hypoxic and hypercarbic respiratory failure Continue with vent support keep sat >92% failed CPAP again today for tachypnea. -- will pursue trach today. ICU vent bundle. Bronchodilator therapy every 6 hours and as needed Daily C Pap trials CV: Hypertension Monitor HR and BP keep MAP>65mmHg d/c 1/2 NS as hypernatremia is resolving. continue free water flushes. RENAL/: BPH Monitor renal function, I/O's, electrolytes replacement per protocol. GI: Anorexia Failure to thrive Gastroesophageal reflux disease Constipation Moderate protein calorie malnutrition Continue TF -Glucerna 1.5 with goal rate 50ml/hr via PEG tube On Protonix.for GI prophylaxis Not requiring bowel regimen Heme: Normocytic anemia Thrombocytopenia Monitor CBC ID: E. Cloacae UTI Pertinent cultures 06/04 - blood cultures 2 - no growth 06/04 - sputum - negative 06/04 - urine - E. Cloacae 06/07 - blood cultures 2 - negative Negative urine Legionella/pneumococcal antigens ID changed abx to cefepime from zosyn/azithro. will discuss, does not appear to be infected clinically. Endo: Hyperglycemia of critical illness On SSI, q6h, high scale. much improved glycemic control. FEN Hypernatremia Hypophosphatemia On free water 300 cc every 4 hours. Recheck sodium in AM. GI prophylaxis-switch to po pepcid q12h. DVT prophylaxis-continue Heparin SQ twice a day Lines: Right subclavian CVP placed 06/04- will attempt to obtain piv and d/c today. Consulted palliative care to asses with goals of care. Critical Care: The total critical care time was 33 minutes. Time to perform other separately billable procedures was not included in the critical care time. Kannan Morataya MD Jun 13, 2016 14:16
--- NOTE | 2016-06-13 14:18 | PD.PROCEDR ---
Procedure Note Procedure Percutaneous Dilation Tracheostomy Tube Placement Diagnosis: Chronic respiratory failure Indications: Hypoxemic respiratory failure failing weaning attempts Anesthesia: Propofol IV, fentanyl IV Neuromuscular Blockade: Rocuronium IV Anesthesia was provided by the bedside RN Description of the Procedure: The patient was sedated and paralyzed. The patient was positioned in the supine position with a chest roll. The patient's neck was slightly extended. Landmarks were palpated and the anatomy of the anterior neck was deemed normal. A time out procedure was performed. The patient was placed on a volume control mode of ventilation, on 100% FiO2. The patient was prepped and draped sterilely. A bronchoscope was inserted into the endotracheal tube for endoscopic guidance (see separate bronchoscopy procedure note). After negative aspiration, 1% lidocaine with 1:100k epinephrine was injected subcutaneously in the midline neck using a 21g needle for local anesthesia. An approximately 2cm skin incision was made using a #15 blade. The cricoid cartilage, thyroid tissue , and tracheal rings were palpated in the midline. Under direct bronchoscopic guidance, the cuff of the endotracheal tube was deflated and the endotracheal tube was retracted to a level above the level of the skin incision. At this point, a 15g introducer needle/catheter was advanced midline under negative aspiration with saline filled syringe until bubbles were seen and the needle and catheter were visualized in the lumen of the trachea. The needle was withdrawn leaving the catheter in place. A 0.052 in diameter J-shaped guidewire was advanced through the catheter into the lumen of the trachea, under direct bronchoscopic visualization. Using a modified Seldinger technique , a 14 Fr, 4.5 cm introducer dilator was used, followed by a Blue Rhino Percutaneous Tracheostomy Dilator, and finally a 28 Fr tracheostomy loading catheter with 8.0 Cuffed Shiley tracheostomy tube. The loading catheter and guidewire were removed and the tracheostomy tube was confirmed in the lumen of the trachea with bronchoscopy, end-tidal CO2, and returning volumes on the ventilator. The tracheostomy was sewn to the skin with interrupted 2.0 Prolene sutures, and a tracheostomy tie was applied to the skin. There were no immediate complications. There was minimal EBL. A chest x-ray has been ordered. Unit Leader: Harpal Dai MD I personally performed the procedure. Kannan Morataya MD Jun 13, 2016 14:18
--- NOTE | 2016-06-13 15:06 | PD.PROCEDR ---
Procedure Note Procedure Procedure: Fiberoptic Bronchoscopy Diagnosis/Indication: Respiratory failure, unable to wean off the ventilator Consent: Informed consent obtained and a time out performed Anesthesia: Continue sedation with propofol. Total 200 g of fentanyl given for pain control. Neuromuscular paralysis with rocuronium Description of the Procedure: The patient was sedated and mechanically ventilated, was placed on 100% FIO2 and a volume control mode of ventilation. The fiberoptic bronchoscopy was inserted via endotracheal tube and the ETT was withdrawn slowly to 17 CM. The trachea, right and left mainstem bronchi, and sub -segmental bronchi were evaluated. The endobronchial anatomy was normal. Insertion of introducer needle, guidewire, followed by serial Blue Rhino dilation and tracheostomy placement was directly visualized on video bronchoscopy. (see separate tracheostomy procedure note also). After tracheostomy placement, position was confirmed by introducing the bronchoscope through the new trach and visualizing the main dario. After suturing in the tracheostomy tube, I reinserted bronchoscope through the tracheostomy again and suctioned out excess blood and secretion. The patient tolerated the procedure well with no hemodynamic instability or hypoxia. There were no immediate complications noted. EBL for bronchoscopy have was negligible. A chest x-ray has been ordered. I personally performed the procedure. Reno Vega MD Jun 13, 2016 15:06
[2016-06-13] MEDS ORDERED: CEFEPIME INJ 1,000 MG in SODIUM CHLORIDE 0.9% INJ 100 ML IV SCH (16:00)
--- NOTE | 2016-06-13 16:56 | RADRPT ---
EXAM DATE/TIME: 06/13/2016 15:09 [place] COMPARISON: CHEST SINGLE AP, June 11, 2016, 3:55. INDICATIONS : Short of breath. MEDICAL HISTORY : None. SURGICAL HISTORY : Trach placement, G tube placement. ENCOUNTER: Initial ACUITY: 1 day PAIN SCORE: Non-responsive. LOCATION: Bilateral chest FINDINGS: Portable AP view of the chest demonstrates a normal-sized cardiac silhouette. Tracheostomy is present overlies the tracheal air shadow. Left subclavian central line tip is in the SVC. Lungs are underinf lated and there is a small left basilar pleural-parenchymal opacity obscuring the hemidiaphragm. Ther e is also mild airspace opacity at the right base. No pneumothorax is visualized. CONCLUSION: 1. No pneumothorax is visualized. Tracheostomy in appropriate position. 2. Small left basilar opacity likely representing pleural effusion with associated volume loss and/or consolidation. There is atelectasis versus consolidation at the right lung base. Gary Tracy MD on June 13, 2016 at 16:52 Board Certified Radiologist. This report was verified electronically.
[2016-06-13] MEDS: FAMOTIDINE 20 MG TAB NG SCH (20:12)
[2016-06-14] VITALS (19 sets, daily range): BP systolic 108–136; BP diastolic 55–66; PULSE 76–101; RESP 12–20; TEMP 99–99.8; O2SAT 93–100
[2016-06-14] MEDS: CHLORHEXIDINE GLUCONATE 2 % 1 PACK (2 CLOTHS) TOP SCH (03:59)
[2016-06-14] MEDS: INSULIN NovoLIN REGULAR SUPPLEMENTAL SCALE SQ SCH ×5 (03:59→20:00)
[2016-06-14] MEDS: FREE WATER G-TUBE SCH ×5 (03:59→20:00)
[2016-06-14] MEDS: CEFEPIME INJ 1,000 MG in SODIUM CHLORIDE 0.9% INJ 100 ML IV SCH ×3 (04:00→20:36)
[2016-06-14 06:33] LABS: HEMATOCRIT 29.4 % (39.0-51.0); MEAN CELL VOLUME 83.2 FL (80.0-100.0); MEAN CORPUSCULAR HEMOGLOBIN 28.5 PG (27.0-34.0); MEAN CORPUSCULAR HGB CONC 34.3 % (32.0-36.0); PLATELET COUNT 335 TH/MM3 (150-450); RED BLOOD COUNT 3.54 MIL/MM3 (4.50-5.90); RED CELL DISTRIBUTION WIDTH 16.9 % (11.6-17.2); REVIEW FLAG FINAL; WHITE BLOOD COUNT 8.4 TH/MM3 (4.0-11.0)
[2016-06-14 06:53] LABS: BICARBONATE 22.7 MEQ/L (21.0-32.0); POTASSIUM 3.7 MEQ/L (3.5-5.1)
[2016-06-14] MEDS: RESP: ALBUTEROL 2.5 MG/IPRATROPIUM 0.5 MG NEB (PRN) INH (08:12)
--- NOTE | 2016-06-14 08:23 | HHI.CCPN ---
Subjective Remarks/Hospital Course 80 y/o NH patient with severe dehydration, UTI sepsis, respiratory failure admitted earlier. Nonverbal, minimally responsive. Cachectic, anasarca. 06/05 Patient is sedated with Diprivan and intubated. On Insulin drip. PEG tube was replaced by GI yesterday. 06/06: Remains sedated, orally intubated on mech ventilation. 06/07: Remains sedated, orally intubated on mechanical ventilation. Daily C Pap trials ongoing. 06/08: Sedated, arousable, orally intubated on mechanical ventilation. Failed C Pap trials with low tidal volumes and decreasing pressure support today. 06/09: Afebrile. Feeling CPAP trials again today due to low tidal volumes. Tolerating tube feeding and free water boluses. Positive BM. Subjective 06/10: Tmax 102. Currently 99.1. Currently a PSV trials. Extremely low tidal volumes however which requires extra pressure support. Eyes are open but does not follow commands. 06/11: no change. failed PSV trail for tachypnea. still altered, but this is baseline for him apparently. 06/12: no changes. slightly more awake, but not following commands, and still altered. discussed care with palliative who again talked with family, and they want aggressive measures. I think we will be forced to pursue tracheostomy, as I do not think it is safe to extubate this patient given mental status. 06/13: again failed SBT. RSBI 105 with persistent altered mental status. will pursue tracheostomy today. 06/14: trach yesterday. re-cultured yesterday per ID. will follow up cultures. need placement. Objective Vital Signs Date Time Temp Pulse Resp B/P Pulse Ox O2 Delivery O2 Flow Rate FiO2 06/14/16 06:00 82 06/14/16 04:36 98 30 06/14/16 04:00 99.7 14 112/61 Intake and Output 06/13/16 06/13/16 06/14/16 08:00 16:00 00:00 Intake Total 2319 ml 954 ml 850 ml Output Total 1250 ml 2000 ml 850 ml Balance 1069 ml -1046 ml 0 ml Result Diagram: 06/14/1652106/14/16 0552 Imaging Last Impressions Chest X-Ray 06/07/16 0600 Signed Impressions: Service Date/Time: Tuesday, June 07, 2016 05:08 - CONCLUSION: Improving aeration. Gary Mcgee MD Objective Remarks GENERAL: 80 yo male patient, critically ill, trached SKIN: Warm and dry. No rash. Positive sacral decubitus ulcer HEAD: Normocephalic. EYES: PERRL. No scleral icterus. No injection or drainage. NECK: Supple, trachea midline. No JVD. tracheostomy in place without bleeding. CARDIOVASCULAR: Regular rate and rhythm with S1, S2. No S4. Without murmurs, gallops, or rubs. RESPIRATORY: Breath sounds equal bilaterally. No accessory muscle use. GASTROINTESTINAL: Abdomen soft, non-tender, nondistended. PEG tube is in place MUSCULOSKELETAL: With trace nonpitting peripheral edema Neuro: Currently arousable but not following commands. Line: Central Venous Catheter Side: Left Location: Subclavian A/P Problem List: (1) Severe sepsis with acute organ dysfunction ICD Code: A41.9 Status: Acute (2) Acute respiratory failure ICD Code: J96.00 Status: Acute (3) UTI (urinary tract infection) ICD Code: N39.0 Status: Acute (4) Alzheimer's dementia ICD Code: F02.80 Status: Acute (5) Fever ICD Code: R50.9 Status: Acute (6) Global aphasia ICD Code: R47.02 Status: Acute Assessment and Plan Assessment: 80yM with acute hypoxic and hypercarbic respiratory failure and acute delirium on chronic dementia. prognosis poor. unlikely to separate from mechanical ventilation given age and comorbidities. family wants aggressive care. s/p trach 06/13. would be good LTAC candidate. Plan: Neuro/Psych: Depression/anxiety Alzheimer's dementia Hypoactive delirium Goal RASS 0 daily sedation vacation. Monitor neuro status. continue provigil for increased alertness. Pulm: Acute hypoxic and hypercarbic respiratory failure Continue with vent support keep sat >92% failed CPAP again today for tachypnea. -- s/p trach 06/13. ICU vent bundle. Bronchodilator therapy every 6 hours and as needed Daily C Pap trials CV: Hypertension Monitor HR and BP keep MAP>65mmHg d/c 1/2 NS as hypernatremia is resolving. continue free water flushes. RENAL/: BPH Monitor renal function, I/O's, electrolytes replacement per protocol. Lasix 40mg iv x 1. GI: Anorexia Failure to thrive Gastroesophageal reflux disease Constipation Moderate protein calorie malnutrition Continue TF -Glucerna 1.5 with goal rate 50ml/hr via PEG tube On Protonix.for GI prophylaxis Not requiring bowel regimen Heme: Normocytic anemia Thrombocytopenia Monitor CBC ID: E. Cloacae UTI Pertinent cultures 06/04 - blood cultures 2 - no growth 06/04 - sputum - negative 06/04 - urine - E. Clo[place]ae 06/07 - blood cultures 2 - negative Negative urine Legionella/pneumococcal antigens cefepime per ID. blood cultures re-sent yesterday. will follow up these. would consider stopping abx if cultures are negative. Endo: Hyperglycemia of critical illness On SSI, q6h, high scale. much improved glycemic control. FEN Hypernatremia- resolving. Hypophosphatemia On free water 300 cc every 4 hours. Recheck sodium in AM. GI prophylaxis-switch to po pepcid q12h. DVT prophylaxis-continue Heparin SQ twice a day Lines: Right subclavian CVP placed 06/04- will attempt to obtain piv and d/c today. Consulted palliative care to asses with goals of care. Kannan Morataya MD Jun 14, 2016 08:22
[2016-06-14] MEDS ORDERED: FUROSEMIDE 40 MG/4 ML VIAL IV PUSH ONE (08:30)
[2016-06-14] MEDS: DOCUSATE SODIUM 100 MG/10 ML UDC PO SCH ×2 (09:00→20:16)
[2016-06-14] MEDS: FAMOTIDINE 20 MG TAB NG SCH ×2 (09:25→20:35)
[2016-06-14] MEDS: MODAFINIL 200 MG TAB PO SCH (09:25)
[2016-06-14] MEDS: SODIUM CHLORIDE 0.9% FLUSH 5 ML FLUSH IV FLUSH SCH ×2 (09:25→20:35)
[2016-06-14] MEDS: HEPARIN SODIUM - SQ 10,000 UNITS/ML VIAL SQ SCH ×2 (09:26→20:35)
--- NOTE | 2016-06-14 14:26 | HHI.IDPN ---
Note Infectious Disease Note ID COVERAGE. Notes reviewed. Patient has trach. On vent. CPAP. Tmax 99.3. Opens eyes to voice. WBC nl. Antibiotics Cefepime Azithromycin Past Medical History Alzheimer's dementia, anxiety, BPH and HNT Allergies: Coded Allergies: No Known Allergies (Unverified , 01/04/16) Objective Vital Signs Date Time Temp Pulse Resp B/P Pulse Ox O2 Delivery O2 Flow Rate FiO2 06/14/16 14:00 82 06/14/16 12:00 99.2 82 12 123/58 98 06/14/16 12:00 30 06/14/16 12:00 81 06/14/16 11:25 97 30 06/14/16 10:00 89 06/14/16 08:14 97 30 06/14/16 08:00 99.3 80 15 114/55 100 06/14/16 08:00 76 06/14/16 08:00 30 06/14/16 06:00 82 06/14/16 04:36 98 30 06/14/16 04:35 30 06/14/16 04:00 30 06/14/16 04:00 99.7 88 14 112/61 96 06/14/16 04:00 88 06/14/16 02:00 94 06/14/16 01:44 93 30 06/14/16 00:00 99.0 101 19 136/66 96 06/14/16 00:00 30 06/14/16 00:00 101 06/13/16 22:00 99 06/13/16 21:30 100 30 06/13/16 20:00 99 06/13/16 20:00 99.7 99 30 139/67 97 06/13/16 20:00 30 06/13/16 18:00 71 06/13/16 16:20 30 06/13/16 16:20 97 30 06/13/16 16:00 74 06/13/16 16:00 99.2 91 16 158/74 100 06/13/16 16:00 30 06/13/16 06/13/16 06/14/16 15:00 23:00 07:00 Intake Total 954 ml 850 ml 920 ml Output Total 2000 ml 850 ml 750 ml Balance -1046 ml 0 ml 170 ml IV Total 954 ml 300 ml Tube Feeding 550 ml 320 ml Other 300 ml 300 ml Output Urine Total 2000 ml 850 ml 750 ml # Bowel Movements 1 1 Laboratory Tests Test 06/13/16 06/14/16 04:40 05:22 White Blood Count 9.0 TH/MM3 8.4 TH/MM3 Red Blood Count 3.28 MIL/MM3 3.54 MIL/MM3 Hemoglobin 9.3 GM/DL 10.1 GM/DL Hematocrit 27.6 % 29.4 % Mean Corpuscular Volume 84.2 FL 83.2 FL Mean Corpuscular Hemoglobin 28.2 PG 28.5 PG Mean Corpuscular Hemoglobin 33.5 % 34.3 % Concent Red Cell Distribution Width 16.9 % 16.9 % Platelet Count 283 TH/MM3 335 TH/MM3 Mean Platelet Volume 8.3 FL 7.8 FL Laboratory Tests Test 06/13/16 06/14/16 04:40 05:52 Sodium Level 142 MEQ/L 141 MEQ/L Potassium Level 3.5 MEQ/L 3.7 MEQ/L Chloride Level 106 MEQ/L 107 MEQ/L Carbon Dioxide Level 23.7 MEQ/L 22.7 MEQ/L Anion Gap 12 MEQ/L 11 MEQ/L Blood Urea Nitrogen 9 MG/DL 9 MG/DL Creatinine 0.77 MG/DL 0.72 MG/DL Estimat Glomerular Filtration 97 ML/MIN 105 ML/MIN Rate Random Glucose 169 MG/DL 177 MG/DL Calcium Level 8.6 MG/DL 8.6 MG/DL Microbiology Date/Time Procedure Status Source Growth 06/13/16 18:00 Aerobic Blood Culture - Preliminary Resulted Blood Peripheral NO GROWTH IN 1 DAY 06/13/16 18:00 Anaerobic Blood Culture - Preliminary Resulted Blood Peripheral NO GROWTH IN 1 DAY 06/13/16 18:05 Aerobic Blood Culture - Preliminary Resulted Blood Peripheral NO GROWTH IN 1 DAY 06/13/16 18:05 Anaerobic Blood Culture - Preliminary Resulted Blood Peripheral NO GROWTH IN 1 DAY Imaging Chest X-Ray 06/13/16 0000 Signed Impressions: Service Date/Time: Monday, June 13, 2016 15:09 - CONCLUSION: 1. No pneumothorax is visualized. Tracheostomy in appropriate position. 2. Small left basilar opacity likely representing pleural effusion with associated volume loss and/or consolidation. There is atelectasis versus consolidation at the right lung base. Gary Tracy MD Chest X-Ray 06/11/16 0600 Signed Impressions: Service Date/Time: Saturday, June 11, 2016 03:55 - CONCLUSION: Persistent patchy infrahilar infiltrates bilaterally. The endotracheal tube is directed towards right main bronchus and should be withdrawn [address] MD Chest X-Ray 06/07/16 0600 Signed Impressions: Service Date/Time: Tuesday, June 07, 2016 05:08 - CONCLUSION: Improving aeration. Gary Mcgee MD Physical Exam CONSTITUTIONAL/GENERAL: Opens eyes to verbal stimuli. HEENT: Pupils equal and round and reactive. No scleral icterus. oral mucosae dry, NECK: Trachea midline. CARDIOVASCULAR: Regular rate and rhythm without murmurs, gallops, or rubs. RESPIRATORY/CHEST: Bibasilar rhonchi. GASTROINTESTINAL: Abdomen soft, non-tender, nondistended. MUSCULOSKELETAL: Extremities without clubbing, cyanosis, 2+ edema. SKIN: No jaundice, rashes, or lesions. NEUROLOGICAL: comatose; nonverbal; not responding. PSYCHIATRIC: unable to assess Assessment & Plan Remarks UTI, sepsis Stable. ARF, improved Acute VDRF - intubated. CXR shows atelectasis vs PNA. ? PNA Low grade fever. RECOMMENDATIONS. Continue Cefepime. Continue Azithromycin. Follow temp. Follow clinical status. Cornel Ordoñez MD Jun 14, 2016 14:26
[2016-06-15] VITALS (19 sets, daily range): BP systolic 104–118; BP diastolic 55–67; PULSE 80–96; RESP 14–24; TEMP 98.1–99.7; O2SAT 95–99
[2016-06-15] MEDS: INSULIN NovoLIN REGULAR SUPPLEMENTAL SCALE SQ SCH ×7 (00:25→23:26)
[2016-06-15] MEDS: CHLORHEXIDINE GLUCONATE 2 % 1 PACK (2 CLOTHS) TOP SCH (03:47)
[2016-06-15] MEDS: FREE WATER G-TUBE SCH ×6 (03:51→23:25)
[2016-06-15] MEDS: CEFEPIME INJ 1,000 MG in SODIUM CHLORIDE 0.9% INJ 100 ML IV SCH ×3 (03:55→19:42)
[2016-06-15] MEDS: MORPHINE SULFATE 4 MG/ML INJ IV PRN ×3 (04:36→20:19)
[2016-06-15 06:08] LABS: HEMATOCRIT 31.9 % (39.0-51.0); MEAN CELL VOLUME 85.4 FL (80.0-100.0); MEAN CORPUSCULAR HEMOGLOBIN 28.1 PG (27.0-34.0); MEAN CORPUSCULAR HGB CONC 32.9 % (32.0-36.0); PLATELET COUNT 363 TH/MM3 (150-450); RED BLOOD COUNT 3.74 MIL/MM3 (4.50-5.90); RED CELL DISTRIBUTION WIDTH 17.4 % (11.6-17.2); REVIEW FLAG FINAL; WHITE BLOOD COUNT 12.5 TH/MM3 (4.0-11.0)
[2016-06-15 06:29] LABS: BICARBONATE 25.8 MEQ/L (21.0-32.0)
[2016-06-15] MEDS: SODIUM CHLORIDE 0.9% FLUSH 5 ML FLUSH IV FLUSH SCH ×2 (09:00→19:47)
[2016-06-15] MEDS: FAMOTIDINE 20 MG TAB NG SCH ×2 (09:09→19:42)
[2016-06-15] MEDS: DOCUSATE SODIUM 100 MG/10 ML UDC PO SCH ×2 (09:09→19:12)
[2016-06-15] MEDS: MODAFINIL 200 MG TAB PO SCH (09:09)
[2016-06-15] MEDS: HEPARIN SODIUM - SQ 10,000 UNITS/ML VIAL SQ SCH ×2 (09:10→19:42)
--- NOTE | 2016-06-15 13:13 | HHI.CCPN ---
Subjective Remarks/Hospital Course 80 y/o NH patient with severe dehydration, UTI sepsis, respiratory failure admitted earlier. Nonverbal, minimally responsive. Cachectic, anasarca. 06/05 Patient is sedated with Diprivan and intubated. On Insulin drip. PEG tube was replaced by GI yesterday. 06/06: Remains sedated, orally intubated on mech ventilation. 06/07: Remains sedated, orally intubated on mechanical ventilation. Daily C Pap trials ongoing. 06/08: Sedated, arousable, orally intubated on mechanical ventilation. Failed C Pap trials with low tidal volumes and decreasing pressure support today. 06/09: Afebrile. Feeling CPAP trials again today due to low tidal volumes. Tolerating tube feeding and free water boluses. Positive BM. 06/10: Tmax 102. Currently 99.1. Currently a PSV trials. Extremely low tidal volumes however which requires extra pressure support. Eyes are open but does not follow commands. 06/11: no change. failed PSV trail for tachypnea. still altered, but this is baseline for him apparently. 06/12: no changes. slightly more awake, but not following commands, and still altered. discussed care with palliative who again talked with family, and they want aggressive measures. I think we will be forced to pursue tracheostomy, as I do not think it is safe to extubate this patient given mental status. 06/13: again failed SBT. RSBI 105 with persistent altered mental status. will pursue tracheostomy today. 06/14: trach yesterday. re-cultured yesterday per ID. will follow up cultures. need placement. Subjective 06/15: Tmax 99.8. Currently 99.7. Positive BM. Tolerating tube feeding. Opens eyes but does not follow commands. Objective Vital Signs Date Time Temp Pulse Resp B/P Pulse Ox O2 Delivery O2 Flow Rate FiO2 06/15/16 12:00 99.7 84 24 108/60 97 06/15/16 12:00 30 06/15/16 08:10 Ventilator Intake and Output 06/14/16 06/14/16 06/15/16 08:00 16:00 00:00 Intake Total 920 ml 1160 ml 790 ml Output Total 750 ml 1650 ml 200 ml Balance 170 ml -490 ml 590 ml Result Diagram: 06/15/16 0556 06/15/16 0556 Other Results Microbiology Date/Time Procedure Status Source Growth 06/13/16 18:05 Aerobic Blood Culture - Preliminary Resulted Blood Peripheral NO GROWTH IN 2 DAYS 06/13/16 18:05 Anaerobic Blood Culture - Preliminary Resulted Blood Peripheral NO GROWTH IN 2 DAYS Imaging Last Impressions Chest X-Ray 06/13/16 0000 Signed Impressions: Service Date/Time: Monday, June 13, 2016 15:09 - CONCLUSION: 1. No pneumothorax is visualized. Tracheostomy in appropriate position. 2. Small left basilar opacity likely representing pleural effusion with associated volume loss and/or consolidation. There is atelectasis versus consolidation at the right lung base. Gary Tracy MD Objective Remarks GENERAL: 80 yo male patient, critically ill, trached SKIN: Warm and dry. No rash. Positive sacral decubitus ulcer HEAD: Normocephalic. EYES: PERRL. No scleral icterus. No injection or drainage. NECK: Supple, trachea midline. No JVD. tracheostomy in place without bleeding. CARDIOVASCULAR: Regular rate and rhythm with S1, S2. No S4. Without murmurs, gallops, or rubs. RESPIRATORY: Breath sounds equal bilaterally. No accessory muscle use. GASTROINTESTINAL: Abdomen soft, non-tender, nondistended. PEG tube is in place MUSCULOSKELETAL: With trace nonpitting peripheral edema Neuro: Currently arousable but not following commands. Urinary Catheter: No Assessment to: Continue Vascular Central Line Catheter: No Assessment to: Continue A/P Problem List: (1) Severe sepsis with acute organ dysfunction ICD Code: A41.9 Status: Acute (2) Acute respiratory failure ICD Code: J96.00 Status: Acute (3) UTI (urinary tract infection) ICD Code: N39.0 Status: Acute (4) Alzheimer's dementia ICD Code: F02.80 Status: Acute (5) Fever ICD Code: R50.9 Status: Acute (6) Global aphasia ICD Code: R47.02 Status: Acute Assessment and Plan Neuro/Psych: Depression/anxiety Alzheimer's dementia Hypoactive delirium Acetaminophen for fever Monitor neuro status. Continue Provigil 200 mg daily in attempt increased alertness. Pulm: Acute hypoxic and hypercarbic respiratory failure Chest x-ray reveals lower lobe atelectasis Continue with vent support keep sat >92% failed CPAP again today for tachypnea. -- s/p #8 Shiley percutaneous trach 06/13. ICU vent bundle. Bronchodilator therapy every 6 hours and as needed Daily C Pap trials CV: Hypertension Monitor HR and BP keep MAP>65mmHg RENAL/: BPH Monitor renal function, I/O's, electrolytes replacement per protocol. GI: Anorexia Failure to thrive Gastroesophageal reflux disease Constipation Moderate protein calorie malnutrition Continue TF -Glucerna 1.5 with goal rate 50ml/hr via PEG tube On Pepcid.for GI prophylaxis Colace twice a day for bowel regimen Heme: Normocytic anemia Leukocytosis Monitor CBC ID: E. Clo[place]ae UTI Pertinent cultures 06/04 - blood cultures 2 - no growth 06/04 - sputum - negative 06/04 - urine - E. [place] 06/07 - blood cultures 2 - negative 06/13 - blood cultures 2 - no growth Negative urine Legionella/pneumococcal antigens Cefepime 1 g every 8 hours per ID Endo: Hyperglycemia of critical illness On SSI, q6h, high scale. much improved glycemic control. FEN Hypernatremia- resolving. Hypophosphatemia On free water 250 cc every 6 hours. Recheck sodium in AM. GI prophylaxis-Pepcid q12h. DVT prophylaxis-continue Heparin SQ twice a day Critical Care: The total critical care time was 35 minutes. Time to perform other separately billable procedures was not included in the critical care time. German Marinelli MD Jun 15, 2016 13:13
[2016-06-15] MEDS: RESP: ALBUTEROL 2.5 MG/IPRATROPIUM 0.5 MG NEB (SCH) NEB ×4 (15:09→20:10)
[2016-06-16] VITALS (21 sets, daily range): BP systolic 103–126; BP diastolic 54–66; PULSE 72–93; RESP 14–25; TEMP 98.3–101; O2SAT 95–99
[2016-06-16] MEDS: MORPHINE SULFATE 4 MG/ML INJ IV PRN ×2 (01:00→02:55)
[2016-06-16] MEDS: RESP: ALBUTEROL 2.5 MG/IPRATROPIUM 0.5 MG NEB (SCH) NEB ×4 (03:46→19:48)
[2016-06-16] MEDS: CHLORHEXIDINE GLUCONATE 2 % 1 PACK (2 CLOTHS) TOP SCH (03:53)
[2016-06-16] MEDS: FREE WATER G-TUBE SCH ×3 (04:41→18:00)
[2016-06-16] MEDS: INSULIN NovoLIN REGULAR SUPPLEMENTAL SCALE SQ SCH ×5 (04:43→20:00)
[2016-06-16] MEDS: CEFEPIME INJ 1,000 MG in SODIUM CHLORIDE 0.9% INJ 100 ML IV SCH ×3 (04:43→22:20)
[2016-06-16 07:05] LABS: AUTOMATED NEUTROPHIL # 6.4 TH/MM3 (1.8-7.7); BASOPHIL # 0.1 TH/MM3 (0-0.2); BASOPHIL % 0.6 % (0.0-2.0); EOSINOPHIL % 0.5 % (0.0-4.0); HEMATOCRIT 26.2 % (39.0-51.0); HEMO FLAGS DIFF FINAL; LYMPH % 19.7 % (9.0-44.0); LYMPHOCYTE # 1.7 TH/MM3 (1.0-4.8); MEAN CELL VOLUME 83.7 FL (80.0-100.0); MEAN CORPUSCULAR HEMOGLOBIN 28.5 PG (27.0-34.0); MONO % 5.3 % (0.0-8.0); NEUT % 73.9 % (16.0-70.0); PLATELET COUNT 354 TH/MM3 (150-450); RED BLOOD COUNT 3.13 MIL/MM3 (4.50-5.90); RED CELL DISTRIBUTION WIDTH 17.1 % (11.6-17.2); WHITE BLOOD COUNT 8.7 TH/MM3 (4.0-11.0)
[2016-06-16 07:19] LABS: ALKALINE PHOSPHATASE 71 U/L (45-117); ALT (GPT) 22 U/L (12-78); ANION GAP 8 MEQ/L (5-15); AST (GOT) 25 U/L (15-37); BICARBONATE 26.3 MEQ/L (21.0-32.0); BLOOD UREA NITROGEN 12 MG/DL (7-18); CHLORIDE 105 MEQ/L (98-107); GLOMERULAR FILTRATION RATE 91 ML/MIN (>89); MAGNESIUM 2.5 MG/DL (1.5-2.5); POTASSIUM 3.6 MEQ/L (3.5-5.1); SODIUM (NA) 139 MEQ/L (136-145); TOTAL BILIRUBIN ADULT 0.3 MG/DL (0.2-1.0)
[2016-06-16] MEDS: DOCUSATE SODIUM 100 MG/10 ML UDC PO SCH ×2 (07:53→21:00)
[2016-06-16] MEDS: MODAFINIL 200 MG TAB PO SCH (07:53)
[2016-06-16] MEDS: FAMOTIDINE 20 MG TAB NG SCH ×2 (07:54→22:21)
[2016-06-16] MEDS: HEPARIN SODIUM - SQ 10,000 UNITS/ML VIAL SQ SCH ×2 (07:54→22:21)
[2016-06-16] MEDS: POTASSIUM PHOSPHATE MONOBASIC 500 MG TAB PO PRN ×2 (07:55→12:10)
--- NOTE | 2016-06-16 08:00 | HHI.CCPN ---
Subjective Remarks/Hospital Course 80 y/o NH patient with severe dehydration, UTI sepsis, respiratory failure admitted earlier. Nonverbal, minimally responsive. Cachectic, anasarca. 06/05 Patient is sedated with Diprivan and intubated. On Insulin drip. PEG tube was replaced by GI yesterday. 06/06: Remains sedated, orally intubated on mech ventilation. 06/07: Remains sedated, orally intubated on mechanical ventilation. Daily C Pap trials ongoing. 06/08: Sedated, arousable, orally intubated on mechanical ventilation. Failed C Pap trials with low tidal volumes and decreasing pressure support today. 06/09: Afebrile. Feeling CPAP trials again today due to low tidal volumes. Tolerating tube feeding and free water boluses. Positive BM. 06/10: Tmax 102. Currently 99.1. Currently a PSV trials. Extremely low tidal volumes however which requires extra pressure support. Eyes are open but does not follow commands. 06/11: no change. failed PSV trail for tachypnea. still altered, but this is baseline for him apparently. 06/12: no changes. slightly more awake, but not following commands, and still altered. discussed care with palliative who again talked with family, and they want aggressive measures. I think we will be forced to pursue tracheostomy, as I do not think it is safe to extubate this patient given mental status. 06/13: again failed SBT. RSBI 105 with persistent altered mental status. will pursue tracheostomy today. 06/14: trach yesterday. re-cultured yesterday per ID. will follow up cultures. need placement. 06/15: Tmax 99.8. Currently 99.7. Positive BM. Tolerating tube feeding. Opens eyes but does not follow commands. Subjective 06/16: MAXIMUM TEMPERATURE 100.7. Currently 98.8. Patient opens eyes but does not follow commands. 2 bowel movements yesterday. Tolerating tube feeding. Objective Vital Signs Date Time Temp Pulse Resp B/P Pulse Ox O2 Delivery O2 Flow Rate FiO2 06/16/16 06:00 83 06/16/16 04:05 96 30 06/16/16 04:00 98.8 25 107/56 06/15/16 08:10 Ventilator Intake and Output 06/15/16 06/15/16 06/16/16 08:00 16:00 00:00 Intake Total 970 ml 814 ml 544 ml Output Total 300 ml 300 ml 325 ml Balance 670 ml 514 ml 219 ml Result Diagram: 06/16/16 0616 06/16/16 0616 Other Results Microbiology Date/Time Procedure Status Source Growth 06/13/16 18:05 Aerobic Blood Culture - Preliminary Resulted Blood Peripheral NO GROWTH IN 2 DAYS 06/13/16 18:05 Anaerobic Blood Culture - Preliminary Resulted Blood Peripheral NO GROWTH IN 2 DAYS Imaging Last Impressions Chest X-Ray 06/13/16 0000 Signed Impressions: Service Date/Time: Monday, June 13, 2016 15:09 - CONCLUSION: 1. No pneumothorax is visualized. Tracheostomy in appropriate position. 2. Small left basilar opacity likely representing pleural effusion with associated volume loss and/or consolidation. There is atelectasis versus consolidation at the right lung base. Gary Tracy MD Objective Remarks GENERAL: 80 yo male patient, critically ill, trached SKIN: Warm and dry. No rash. Positive sacral decubitus ulcer HEAD: Normocephalic. EYES: PERRL. No scleral icterus. No injection or drainage. NECK: Supple, trachea midline. No JVD. tracheostomy in place without bleeding. CARDIOVASCULAR: Regular rate and rhythm with S1, S2. No S4. Without murmurs, gallops, or rubs. RESPIRATORY: Breath sounds equal bilaterally. No accessory muscle use. GASTROINTESTINAL: Abdomen soft, non-tender, nondistended. PEG tube is in place above the umbilicus very little erythema. MUSCULOSKELETAL: With trace nonpitting peripheral upper and lower extremity edema. Extremities are warm. Neuro: Currently arousable but not following commands. Urinary Catheter: No Assessment to: Continue Vascular Central Line Catheter: No Assessment to: Continue A/P Problem List: (1) Severe sepsis with acute organ dysfunction ICD Code: A41.9 Status: Acute (2) Acute respiratory failure ICD Code: J96.00 Status: Acute (3) UTI (urinary tract infection) ICD Code: N39.0 Status: Acute (4) Alzheimer's dementia ICD Code: F02.80 Status: Acute (5) Fever ICD Code: R50.9 Status: Acute (6) Global aphasia ICD Code: R47.02 Status: Acute Assessment and Plan Neuro/Psych: Depression/anxiety Alzheimer's dementia Hypoactive delirium Acetaminophen for fever Monitor neuro status. Continue Provigil 200 mg daily in attempt increased alertness. Pulm: Acute hypoxic and hypercarbic respiratory failure Chest x-ray reveals lower lobe atelectasis Continue with vent support keep sat >92% 3 creatinine ACV/15/500/5/35 failed CPAP again today with tachypnea. -- s/p #8 Shiley percutaneous trach 06/13. ICU vent bundle. Bronchodilator therapy every 6 hours and as needed Daily C Pap trials CV: Hypertension Monitor HR and BP keep MAP>65mmHg RENAL/: BPH Monitor renal function, I/O's, electrolytes replacement per protocol. GI: Anorexia Failure to thrive Gastroesophageal reflux disease Constipation Moderate protein calorie malnutrition Continue TF -Glucerna 1.5 with goal rate 50ml/hr via PEG tube On Pepcid.for GI prophylaxis Colace twice a day for bowel regimen Heme: Normocytic anemia Leukocytosis Monitor CBC ID: E. Clo[place] UTI Pertinent cultures 06/04 - blood cultures 2 - no growth 06/04 - sputum - negative 06/04 - urine - E. [place] 06/07 - blood cultures 2 - negative 06/13 - blood cultures 2 - no growth Negative urine Legionella/pneumococcal antigens Cefepime 1 g every 8 hours per ID Endo: Hyperglycemia of critical illness On SSI, q6h, high scale. much improved glycemic control. FEN Hypophosphatemia On free water 250 cc every 6 hours. Recheck sodium in AM. 30 mmol potassium phosphorus IV 1. Recheck in a.m. GI prophylaxis-Pepcid q12h. DVT prophylaxis-continue Heparin SQ twice a day Critical Care: The total care time was 35 minutes. Time to perform other separately billable procedures was not included in the critical care time. The patient is under consideration by [facility]. German Marinelli MD Jun 16, 2016 08:00
[2016-06-16] MEDS: SODIUM CHLORIDE 0.9% FLUSH 5 ML FLUSH IV FLUSH SCH ×2 (08:39→22:21)
[2016-06-16] MEDS ORDERED: POTASSIUM PHOSPHATE INJ 30 MMOL in SODIUM CHLOR 0.9% 250 ML INJ 250 ML IV ONE (09:00)
--- NOTE | 2016-06-16 10:10 | OTSOAPIP ---
TIME SESSION COMPLETED: AM TREATMENT TIME: 0 MINS. CHART REVIEWED. RECEIVED ORDERS FOR OCCUPATIONAL THERAPY FROM DR. FLORES. PATIENT WAS INITIALLY EVALUATED ON 06/12/16. PATIENT IS NOT A CANDIDATE FOR SKILLED OCCUPATIONAL THERAPY PATIENT IS CURRENTLY AT PRIOR LEVEL OF FUNCTION, TOTAL DEPENDENT WITH LONG STANDING HISTORY OF CONTRACTIONS IN ALL 4 EXTREMITIES. SKILLED OCCUPATIONAL THERAPY NOT INDICATED. RECOMMEND RANGE OF MOTION MAINTENANCE RESTORATIVE PROGRAM FROM NURSING DURING HYGIENE CARE. INTERDISCIPLINARY COMMUNICATION: REVIEWED ELECTRONIC MEDICAL RECORD Therapist: Amanda Cooney OTR/L Signature on file
--- NOTE | 2016-06-16 17:27 | HHI.IDPN ---
Note Infectious Disease Note ID COVERAGE. Notes reviewed. Patient has trach. On vent. Looks lethargic. Low grade fever. Tmax 100.1 Opens eyes to voice. RN reports patient had vomiting today. Antibiotics Cefepime Azithromycin Past Medical History Alzheimer's dementia, anxiety, BPH and HNT Allergies: Coded Allergies: No Known Allergies (Unverified , 01/04/16) Objective Vital Signs Date Time Temp Pulse Resp B/P Pulse Ox O2 Delivery O2 Flow Rate FiO2 06/16/16 16:09 97 30 06/16/16 16:00 100.1 85 18 103/56 96 06/16/16 16:00 85 06/16/16 16:00 30 06/16/16 14:00 82 06/16/16 13:02 98.3 81 20 118/61 97 06/16/16 12:00 84 06/16/16 12:00 30 06/16/16 11:24 98 30 06/16/16 10:00 82 06/16/16 08:00 30 06/16/16 08:00 98.9 72 16 116/59 99 06/16/16 07:45 98 30 06/16/16 06:00 83 06/16/16 04:05 96 30 06/16/16 04:00 98.8 80 25 107/56 95 06/16/16 04:00 30 06/16/16 04:00 80 06/16/16 02:00 82 06/16/16 01:10 98 30 06/16/16 00:00 82 06/16/16 00:00 30 06/16/16 00:00 100.7 82 14 107/54 96 06/15/16 22:08 98 30 06/15/16 22:00 86 06/15/16 20:09 97 30 06/15/16 20:00 82 06/15/16 20:00 30 06/15/16 20:00 98.1 82 14 113/56 95 06/15/16 18:00 88 06/15/16 06/15/16 06/16/16 15:00 23:00 07:00 Intake Total 814 ml 544 ml 673 ml Output Total 300 ml 325 ml 225 ml Balance 514 ml 219 ml 448 ml IV Total 176 ml 181 ml 63 ml Tube Feeding 338 ml 363 ml 110 ml Other 300 ml 500 ml Output Urine Total 300 ml 325 ml 225 ml Laboratory Tests Test 06/15/16 06/16/16 05:56 06:16 White Blood Count 12.5 TH/MM3 8.7 TH/MM3 Red Blood Count 3.74 MIL/MM3 3.13 MIL/MM3 Hemoglobin 10.5 GM/DL 8.9 GM/DL Hematocrit 31.9 % 26.2 % Mean Corpuscular Volume 85.4 FL 83.7 FL Mean Corpuscular Hemoglobin 28.1 PG 28.5 PG Mean Corpuscular Hemoglobin 32.9 % 34.0 % Concent Red Cell Distribution Width 17.4 % 17.1 % Platelet Count 363 TH/MM3 354 TH/MM3 Mean Platelet Volume 7.3 FL 7.4 FL Neutrophils (%) (Auto) 73.9 % Lymphocytes (%) (Auto) 19.7 % Monocytes (%) (Auto) 5.3 % Eosinophils (%) (Auto) 0.5 % Basophils (%) (Auto) 0.6 % Neutrophils # (Auto) 6.4 TH/MM3 Lymphocytes # (Auto) 1.7 TH/MM3 Monocytes # (Auto) 0.5 TH/MM3 Eosinophils # (Auto) 0.0 TH/MM3 Basophils # (Auto) 0.1 TH/MM3 CBC Comment DIFF FINAL Differential Comment Laboratory Tests Test 06/15/16 06/16/16 05:56 06:16 Sodium Level 138 MEQ/L 139 MEQ/L Potassium Level 4.0 MEQ/L 3.6 MEQ/L Chloride Level 105 MEQ/L 105 MEQ/L Carbon Dioxide Level 25.8 MEQ/L 26.3 MEQ/L Anion Gap 7 MEQ/L 8 MEQ/L Blood Urea Nitrogen 14 MG/DL 12 MG/DL Creatinine 0.82 MG/DL 0.81 MG/DL Estimat Glomerular Filtration 90 ML/MIN 91 ML/MIN Rate Random Glucose 163 MG/DL 155 MG/DL Calcium Level 8.4 MG/DL 8.2 MG/DL Phosphorus Level 2.2 MG/DL Magnesium Level 2.5 MG/DL Total Bilirubin 0.3 MG/DL Aspartate Amino Transf 25 U/L (AST/SGOT) Alanine Aminotransferase 22 U/L (ALT/SGPT) Alkaline Phosphatase 71 U/L Total Protein 6.9 GM/DL Albumin 2.0 GM/DL Microbiology Date/Time Procedure Status Source Growth 06/13/16 18:00 Aerobic Blood Culture - Preliminary Resulted Blood Peripheral NO GROWTH IN 3 DAYS 06/13/16 18:00 Anaerobic Blood Culture - Preliminary Resulted Blood Peripheral NO GROWTH IN 3 DAYS 06/13/16 18:05 Aerobic Blood Culture - Preliminary Resulted Blood Peripheral NO GROWTH IN 3 DAYS 06/13/16 18:05 Anaerobic Blood Culture - Preliminary Resulted Blood Peripheral NO GROWTH IN 3 DAYS Imaging Chest X-Ray 06/13/16 0000 Signed Impressions: Service Date/Time: Monday, June 13, 2016 15:09 - CONCLUSION: 1. No pneumothorax is visualized. Tracheostomy in appropriate position. 2. Small left basilar opacity likely representing pleural effusion with associated volume loss and/or consolidation. There is atelectasis versus consolidation at the right lung base. Gary Tracy MD Chest X-Ray 06/11/16 06 Signed Impressions: Service Date/Time: Saturday, June 11, 2016 03:55 - CONCLUSION: Persistent patchy infrahilar infiltrates bilaterally. The endotracheal tube is directed towards right main bronchus and should be withdrawn [address] MD Chest X-Ray 06/07/16 06 Signed Impressions: Service Date/Time: Tuesday, June 07, 2016 05:08 - CONCLUSION: Improving aeration. Gary Mcgee MD Physical Exam GENERAL: Opens eyes to verbal stimuli. HEENT: Pupils equal and round and reactive. No scleral icterus. oral mucosae dry , NECK: Trachea midline. CARDIOVASCULAR: Regular rate and rhythm without murmurs, gallops, or rubs. RESPIRATORY: Bibasilar rhonchi. GASTROINTESTINAL: Abdomen soft, non-tender, nondistended. MUSCULOSKELETAL: Extremities without clubbing, cyanosis, 2+ edema. SKIN: No jaundice, rashes, or lesions. NEUROLOGICAL: comatose; nonverbal; no responses. PSYCHIATRIC: unable to assess Assessment & Plan Remarks UTI, sepsis Stable. ARF, improved Acute VDRF - intubated. CXR shows atelectasis vs PNA. ? PNA Low grade fever. ? source ? aspiration. RECOMMENDATIONS. Continue Cefepime. Stop Azithromycin. Obtained new sputum culture. Follow temp. Follow clinical status. Cornel Ordoñez MD Jun 16, 2016 17:26
[2016-06-16] MEDS: ACETAMINOPHEN 325 MG TAB PO PRN (22:22)
[2016-06-17] VITALS (18 sets, daily range): BP systolic 110–139; BP diastolic 57–70; PULSE 78–97; RESP 12–30; TEMP 98.7–99.6; O2SAT 94–99
[2016-06-17] MEDS: INSULIN NovoLIN REGULAR SUPPLEMENTAL SCALE SQ SCH ×6 (01:19→20:00)
[2016-06-17] MEDS: RESP: ALBUTEROL 2.5 MG/IPRATROPIUM 0.5 MG NEB (SCH) NEB ×4 (03:20→19:47)
[2016-06-17] MEDS: FREE WATER G-TUBE SCH ×4 (03:41→18:00)
[2016-06-17] MEDS: CEFEPIME INJ 1,000 MG in SODIUM CHLORIDE 0.9% INJ 100 ML IV SCH ×3 (03:41→21:43)
[2016-06-17] MEDS: CHLORHEXIDINE GLUCONATE 2 % 1 PACK (2 CLOTHS) TOP SCH (03:41)
[2016-06-17] MEDS: MORPHINE SULFATE 4 MG/ML INJ IV PRN ×2 (03:42→21:44)
--- NOTE | 2016-06-17 04:25 | RADRPT ---
EXAM DATE/TIME: 06/17/2016 03:24 [facility] COMPARISON: CHEST SINGLE AP, June 13, 2016, 15:09. INDICATIONS : Shortness of breath, possible pulmonary disease. MEDICAL HISTORY : Failure to thrive SURGICAL HISTORY : Tracheostomy, G-tube ENCOUNTER: Subsequent ACUITY: 2 weeks PAIN SCORE: Non-responsive. LOCATION: Bilateral chest FINDINGS: Tracheostomy tube is noted. There are atelectatic changes at the bases. No effusions. Mild basilar ai rspace disease. Osseous structures are intact. Cardiomegaly. CONCLUSION: No significant change has occurred. Todd Burton MD on June 17, 2016 at 4:23 Board Certified Radiologist. This report was verified electronically.
[2016-06-17 07:04] LABS: AUTOMATED NEUTROPHIL # 6.6 TH/MM3 (1.8-7.7); BASOPHIL # 0.1 TH/MM3 (0-0.2); BASOPHIL % 0.8 % (0.0-2.0); EOSINOPHIL % 0.3 % (0.0-4.0); HEMATOCRIT 27.1 % (39.0-51.0); HEMO FLAGS DIFF FINAL; LYMPH % 18.7 % (9.0-44.0); LYMPHOCYTE # 1.7 TH/MM3 (1.0-4.8); MEAN CELL VOLUME 83.6 FL (80.0-100.0); MEAN CORPUSCULAR HEMOGLOBIN 28.7 PG (27.0-34.0); MEAN CORPUSCULAR HGB CONC 34.3 % (32.0-36.0); NEUT % 74.2 % (16.0-70.0); PLATELET COUNT 374 TH/MM3 (150-450); RED BLOOD COUNT 3.24 MIL/MM3 (4.50-5.90); RED CELL DISTRIBUTION WIDTH 17.5 % (11.6-17.2); WHITE BLOOD COUNT 8.9 TH/MM3 (4.0-11.0)
[2016-06-17 07:22] LABS: ALKALINE PHOSPHATASE 63 U/L (45-117); ALT (GPT) 22 U/L (12-78); ANION GAP 9 MEQ/L (5-15); AST (GOT) 22 U/L (15-37); BICARBONATE 24.7 MEQ/L (21.0-32.0); BLOOD UREA NITROGEN 11 MG/DL (7-18); CHLORIDE 103 MEQ/L (98-107); GLOMERULAR FILTRATION RATE 95 ML/MIN (>89); MAGNESIUM 2.5 MG/DL (1.5-2.5); POTASSIUM 3.4 MEQ/L (3.5-5.1); SODIUM (NA) 137 MEQ/L (136-145); TOTAL BILIRUBIN ADULT 0.4 MG/DL (0.2-1.0)
[2016-06-17 07:30] LABS: CREATINE KINASE 41 U/L (39-308)
[2016-06-17] MEDS: MODAFINIL 200 MG TAB PO SCH (09:07)
[2016-06-17] MEDS: FAMOTIDINE 20 MG TAB NG SCH ×2 (09:07→21:43)
[2016-06-17] MEDS: DOCUSATE SODIUM 100 MG/10 ML UDC PO SCH ×2 (09:07→21:00)
[2016-06-17] MEDS: HEPARIN SODIUM - SQ 10,000 UNITS/ML VIAL SQ SCH ×2 (09:07→21:44)
[2016-06-17] MEDS: SODIUM CHLORIDE 0.9% FLUSH 5 ML FLUSH IV FLUSH SCH ×2 (09:08→21:43)
--- NOTE | 2016-06-17 12:22 | HHI.CCPN ---
Subjective Remarks/Hospital Course 80 y/o NH patient with severe dehydration, UTI sepsis, respiratory failure admitted earlier. Nonverbal, minimally responsive. Cachectic, anasarca. 06/05 Patient is sedated with Diprivan and intubated. On Insulin drip. PEG tube was replaced by GI yesterday. 06/06: Remains sedated, orally intubated on mech ventilation. 06/07: Remains sedated, orally intubated on mechanical ventilation. Daily C Pap trials ongoing. 06/08: Sedated, arousable, orally intubated on mechanical ventilation. Failed C Pap trials with low tidal volumes and decreasing pressure support today. 06/09: Afebrile. Feeling CPAP trials again today due to low tidal volumes. Tolerating tube feeding and free water boluses. Positive BM. 06/10: Tmax 102. Currently 99.1. Currently a PSV trials. Extremely low tidal volumes however which requires extra pressure support. Eyes are open but does not follow commands. 06/11: no change. failed PSV trail for tachypnea. still altered, but this is baseline for him apparently. 06/12: no changes. slightly more awake, but not following commands, and still altered. discussed care with palliative who again talked with family, and they want aggressive measures. I think we will be forced to pursue tracheostomy, as I do not think it is safe to extubate this patient given mental status. 06/13: again failed SBT. RSBI 105 with persistent altered mental status. will pursue tracheostomy today. 06/14: trach yesterday. re-cultured yesterday per ID. will follow up cultures. need placement. 06/15: Tmax 99.8. Currently 99.7. Positive BM. Tolerating tube feeding. Opens eyes but does not follow commands. Subjective 06/16: MAXIMUM TEMPERATURE 100.7. Currently 98.8. Patient opens eyes but does not follow commands. 2 bowel movements yesterday. Tolerating tube feeding. 06/17: No change neurologically opens eyes- do not follow commands. Tolerating CPAP 04/24. No other acute events Objective Vital Signs Date Time Temp Pulse Resp B/P Pulse Ox O2 Delivery O2 Flow Rate FiO2 06/17/16 12:00 30 06/17/16 12:00 87 06/17/16 12:00 98.7 12 130/57 96 06/15/16 08:10 Ventilator Intake and Output 06/16/16 06/16/16 06/17/16 08:00 16:00 00:00 Intake Total 673 ml 638 ml 186 ml Output Total 225 ml 350 ml 350 ml Balance 448 ml 288 ml -164 ml Result Diagram: 06/17/16 0604 06/17/16 0604 Imaging Last Impressions Chest X-Ray 06/13/16 0000 Signed Impressions: Service Date/Time: Monday, June 13, 2016 15:09 - CONCLUSION: 1. No pneumothorax is visualized. Tracheostomy in appropriate position. 2. Small left basilar opacity likely representing pleural effusion with associated volume loss and/or consolidation. There is atelectasis versus consolidation at the right lung base. Gary Tracy MD Objective Remarks GENERAL: 80 yo male patient, critically ill, trached SKIN: Warm and dry. No rash. Positive sacral decubitus ulcer HEAD: Normocephalic. EYES: PERRL. No scleral icterus. No injection or drainage. NECK: Supple, trachea midline. No JVD. tracheostomy in place without bleeding. CARDIOVASCULAR: Regular rate and rhythm with S1, S2. No S4. Without murmurs, gallops, or rubs. RESPIRATORY: Breath sounds equal bilaterally. No accessory muscle use. GASTROINTESTINAL: Abdomen soft, non-tender, nondistended. PEG tube is in place above the umbilicus very little erythema. MUSCULOSKELETAL: With trace nonpitting peripheral upper and lower extremity edema. Extremities are warm. Neuro: Currently arousable but not following commands. Urinary Catheter: Yes Assessment to: Continue A/P Problem List: (1) Severe sepsis with acute organ dysfunction ICD Code: A41.9 Status: Acute (2) Acute respiratory failure ICD Code: J96.00 Status: Acute (3) UTI (urinary tract infection) ICD Code: N39.0 Status: Acute (4) Alzheimer's dementia ICD Code: F02.80 Status: Acute (5) Fever ICD Code: R50.9 Status: Acute (6) Global aphasia ICD Code: R47.02 Status: Acute Assessment and Plan Neuro/Psych: Alzheimer's dementia Hypoactive delirium Depression/anxiety Acetaminophen for fever Monitor neuro status. Continue Provigil 200 mg daily in attempt increased alertness. Pulm: Acute hypoxic and hypercarbic respiratory failure Lower lobe atelectasis Continue with vent support keep sat >92% ACV/15/500/5/35 Tolerating CPAP, trial of TP for 4 hours today -- s/p #8 Shiley percutaneous trach 06/13. (Dr. Morataya/Dr. Dai) ICU vent bundle. Bronchodilator therapy every 6 hours and as needed Daily C Pap trials CV: Hypertension Monitor HR and BP keep MAP>65mmHg RENAL/: BPH Monitor renal function, I/O's, electrolytes replacement per protocol. GI: Anorexia Failure to thrive Gastroesophageal reflux disease Constipation Moderate protein calorie malnutrition Continue TF -Glucerna 1.5 with goal rate 50ml/hr via PEG tube On Pepcid.for GI prophylaxis Colace twice a day for bowel regimen Heme: Normocytic anemia Leukocytosis Monitor CBC ID: E. [place] UTI Pertinent cultures 06/04 - blood cultures 2 - no growth 06/04 - sputum - negative 06/04 - urine - E. [place] 06/07 - blood cultures 2 - negative 06/13 - blood cultures 2 - no growth Negative urine Legionella/pneumococcal antigens Cefepime 1 g every 8 hours per ID Endo: Hyperglycemia of critical illness On SSI, q6h, high scale. much improved glycemic control. FEN Hypophosphatemia On free water 250 cc every 6 hours. replace electrolytes per protocol GI prophylaxis-Pepcid q12h. DVT prophylaxis-continue Heparin SQ twice a day Critical Care: The total care time was 32 minutes. Time to perform other separately billable procedures was not included in the critical care time. [facility] Reno Vega MD Jun 17, 2016 12:22
--- NOTE | 2016-06-17 12:51 | RADRPT ---
EXAM DATE/TIME: 06/17/2016 11:51 [facility] COMPARISON: ABDOMEN KUB ONLY, January 24, 2015, 7:00. INDICATIONS : Vomitting, evaluate for ileus. MEDICAL HISTORY : Unobtainable. SURGICAL HISTORY : Unobtainable. ENCOUNTER: Initial ACUITY: 1 day PAIN SCORE: Non-responsive. LOCATION: Bilateral abdomen. FINDINGS: Supine view of the abdomen was performed. There is a gastrostomy tube in the stomach. The stomach ivis ears to be distended with air. However there is no evidence of abnormal dilatation of the large or sm all bowel. There is some air noted within the small and large bowel. There is some stool in the colon . The bony structures are grossly intact.. CONCLUSION: No abnormal dilatation of the large or small bowel to indicate an ileus. There is a gastrostomy tube in the stomach which appears to be somewhat distended with air. José Miguel Celis MD on June 17, 2016 at 12:49 Board Certified Radiologist. This report was verified electronically.
--- NOTE | 2016-06-17 13:39 | HHI.IDPN ---
Note Infectious Disease Note ID COVERAGE. Notes reviewed. Patient has trach. On t-piece, looks comfortable Temps to 101 last night CXR no change NO central line Antibiotics Cefepime Past History Alzheimer's dementia, anxiety, BPH and HNT Allergies: None OBJECTIVE Vital Signs Date Time Temp Pulse Resp B/P Pulse Ox O2 Delivery O2 Flow Rate FiO2 06/17/16 13:16 99 T-piece 6.00 35 06/17/16 12:00 30 06/17/16 12:00 87 06/17/16 12:00 98.7 87 12 130/57 96 06/17/16 11:45 95 30 06/17/16 10:00 89 06/17/16 09:30 30 06/17/16 08:15 30 06/17/16 08:00 98.9 84 23 133/57 97 06/17/16 08:00 89 06/17/16 08:00 30 06/17/16 07:52 30 06/17/16 07:52 99 30 06/17/16 06:00 90 06/17/16 04:09 96 30 06/17/16 04:00 97 06/17/16 04:00 99.6 97 27 128/70 97 06/17/16 04:00 30 06/17/16 01:15 96 30 06/17/16 00:00 99.6 91 14 119/58 94 06/16/16 22:40 97 30 06/16/16 22:00 93 06/16/16 20:00 92 06/16/16 20:00 101.0 92 20 126/66 99 06/16/16 20:00 30 06/16/16 19:40 95 30 06/16/16 18:00 90 06/16/16 17:20 98.8 06/16/16 16:09 97 30 06/16/16 16:00 100.1 85 18 103/56 96 06/16/16 16:00 85 06/16/16 16:00 30 06/16/16 14:00 82 Vital Signs Date Time Temp Pulse Resp B/P Pulse Ox O2 Delivery O2 Flow Rate FiO2 06/16/16 16:09 97 30 06/16/16 16:00 100.1 85 18 103/56 96 06/16/16 16:00 85 06/16/16 16:00 30 06/16/16 14:00 82 06/16/16 13:02 98.3 81 20 118/61 97 06/16/16 12:00 84 06/16/16 12:00 30 06/16/16 11:24 98 30 06/16/16 10:00 82 06/16/16 08:00 30 06/16/16 08:00 98.9 72 16 116/59 99 06/16/16 07:45 98 30 06/16/16 06:00 83 06/16/16 04:05 96 30 06/16/16 04:00 98.8 80 25 107/56 95 06/16/16 04:00 30 06/16/16 04:00 80 06/16/16 02:00 82 06/16/16 01:10 98 30 06/16/16 00:00 82 06/16/16 00:00 30 06/16/16 00:00 100.7 82 14 107/54 96 06/15/16 22:08 98 30 06/15/16 22:00 86 06/15/16 20:09 97 30 06/15/16 20:00 82 06/15/16 20:00 30 06/15/16 20:00 98.1 82 14 113/56 95 06/15/16 18:00 88 Laboratory Tests Test 06/15/16 06/16/16 05:56 06:16 White Blood Count 12.5 TH/MM3 8.7 TH/MM3 Red Blood Count 3.74 MIL/MM3 3.13 MIL/MM3 Hemoglobin 10.5 GM/DL 8.9 GM/DL Hematocrit 31.9 % 26.2 % Mean Corpuscular Volume 85.4 FL 83.7 FL Mean Corpuscular Hemoglobin 28.1 PG 28.5 PG Mean Corpuscular Hemoglobin 32.9 % 34.0 % Concent Red Cell Distribution Width 17.4 % 17.1 % Platelet Count 363 TH/MM3 354 TH/MM3 Mean Platelet Volume 7.3 FL 7.4 FL Neutrophils (%) (Auto) 73.9 % Lymphocytes (%) (Auto) 19.7 % Monocytes (%) (Auto) 5.3 % Eosinophils (%) (Auto) 0.5 % Basophils (%) (Auto) 0.6 % Neutrophils # (Auto) 6.4 TH/MM3 Lymphocytes # (Auto) 1.7 TH/MM3 Monocytes # (Auto) 0.5 TH/MM3 Eosinophils # (Auto) 0.0 TH/MM3 Basophils # (Auto) 0.1 TH/MM3 CBC Comment DIFF FINAL Differential Comment Laboratory Tests Test 06/15/16 06/16/16 05:56 06:16 Sodium Level 138 MEQ/L 139 MEQ/L Potassium Level 4.0 MEQ/L 3.6 MEQ/L Chloride Level 105 MEQ/L 105 MEQ/L Carbon Dioxide Level 25.8 MEQ/L 26.3 MEQ/L Anion Gap 7 MEQ/L 8 MEQ/L Blood Urea Nitrogen 14 MG/DL 12 MG/DL Creatinine 0.82 MG/DL 0.81 MG/DL Estimat Glomerular Filtration 90 ML/MIN 91 ML/MIN Rate Random Glucose 163 MG/DL 155 MG/DL Calcium Level 8.4 MG/DL 8.2 MG/DL Phosphorus Level 2.2 MG/DL Magnesium Level 2.5 MG/DL Total Bilirubin 0.3 MG/DL Aspartate Amino Transf 25 U/L (AST/SGOT) Alanine Aminotransferase 22 U/L (ALT/SGPT) Alkaline Phosphatase 71 U/L Total Protein 6.9 GM/DL Albumin 2.0 GM/DL Microbiology Date/Time Procedure Status Source Growth 06/13/16 18:00 Aerobic Blood Culture - Preliminary Resulted Blood Peripheral NO GROWTH IN 3 DAYS 06/13/16 18:00 Anaerobic Blood Culture - Preliminary Resulted Blood Peripheral NO GROWTH IN 3 DAYS 06/13/16 18:05 Aerobic Blood Culture - Preliminary Resulted Blood Peripheral NO GROWTH IN 3 DAYS 06/13/16 18:05 Anaerobic Blood Culture - Preliminary Resulted Blood Peripheral NO GROWTH IN 3 DAYS Imaging Chest X-Ray 06/17/16 0600 Signed Impressions: Service Date/Time: Friday, June 17, 2016 03:24 - CONCLUSION: No significant change has occurred. Todd Burton MD Abdomen X-Ray 06/17/16 0000 Signed Impressions: Service Date/Time: Friday, June 17, 2016 11:51 - CONCLUSION: No abnormal dilatation of the large or small bowel to indicate an ileus. There is a gastrostomy tube in the stomach which appears to be somewhat distended with air. José Miguel Celis MD Chest X-Ray 06/13/16 0000 Signed Impressions: Service Date/Time: Monday, June 13, 2016 15:09 - CONCLUSION: 1. No pneumothorax is visualized. Tracheostomy in appropriate position. 2. Small left basilar opacity likely representing pleural effusion with associated volume loss and/or consolidation. There is atelectasis versus consolidation at the right lung base. Gary Tracy MD Chest X-Ray 06/11/16 0600 Signed Impressions: Service Date/Time: Saturday, June 11, 2016 03:55 - CONCLUSION: Persistent patchy infrahilar infiltrates bilaterally. The endotracheal tube is directed towards right main bronchus and should be withdrawn [address] MD Chest X-Ray 06/07/16 06 Signed Impressions: Service Date/Time: Tuesday, June 07, 2016 05:08 - CONCLUSION: Improving aeration. Gary Mcgee MD Physical Exam GENERAL: Opens eyes to verbal stimuli. On T-piece, NAD HEENT: Pupils equal and round and reactive. No scleral icterus. oral mucosae dry , NECK: Trachea midline. Trach site ok CARDIOVASCULAR: Regular rate and rhythm without murmurs, gallops, or rubs. RESPIRATORY: Few rhonchi. Decreased BS bases GASTROINTESTINAL: Abdomen soft, non-tender, nondistended. MUSCULOSKELETAL: Extremities without clubbing, cyanosis, 2+ edema. SKIN: No jaundice, rashes, or lesions. NEUROLOGICAL: opens eyes PSYCHIATRIC: unable to assess LINE: PIV no evidence of infection IMPRESSION UTI, sepsis Stable. ARF, improved Acute VDRF - intubated. CXR shows atelectasis vs PNA. ? PNA Low grade fever. ? source ? aspiration. RECOMMENDATIONS. Continue Cefepime. Follow new C/S Follow temp. Follow clinical status. Weaning per [facility], on T-piece currently Tania Smith MD Jun 17, 2016 13:39
[2016-06-17] MEDS: POTASSIUM PHOSPHATE INJ 30 MMOL in SODIUM CHLOR 0.9% 250 ML INJ 250 ML IV PRN (18:17)
[2016-06-18] VITALS (15 sets, daily range): BP systolic 93–131; BP diastolic 51–63; PULSE 70–101; RESP 24–36; TEMP 97.9–100.6; O2SAT 94–100
[2016-06-18 00:42] LABS: BICARBONATE 26.2 MEQ/L (21.0-32.0); POTASSIUM 4.2 MEQ/L (3.5-5.1)
[2016-06-18] MEDS: CHLORHEXIDINE GLUCONATE 2 % 1 PACK (2 CLOTHS) TOP SCH (01:27)
[2016-06-18] MEDS: MORPHINE SULFATE 4 MG/ML INJ IV PRN (02:09)
[2016-06-18] MEDS: INSULIN NovoLIN REGULAR SUPPLEMENTAL SCALE SQ SCH ×7 (04:00→23:41)
[2016-06-18] MEDS: FREE WATER G-TUBE SCH ×5 (06:00→23:41)
[2016-06-18] MEDS: CEFEPIME INJ 1,000 MG in SODIUM CHLORIDE 0.9% INJ 100 ML IV SCH ×3 (06:00→20:35)
[2016-06-18 07:44] LABS: HEMATOCRIT 28.5 % (39.0-51.0); MEAN CELL VOLUME 83.6 FL (80.0-100.0); MEAN CORPUSCULAR HEMOGLOBIN 27.7 PG (27.0-34.0); MEAN CORPUSCULAR HGB CONC 33.2 % (32.0-36.0); PLATELET COUNT 375 TH/MM3 (150-450); RED BLOOD COUNT 3.41 MIL/MM3 (4.50-5.90); RED CELL DISTRIBUTION WIDTH 17.2 % (11.6-17.2); REVIEW FLAG FINAL; WHITE BLOOD COUNT 8.9 TH/MM3 (4.0-11.0)
[2016-06-18] MEDS: MODAFINIL 200 MG TAB PO SCH (08:17)
[2016-06-18] MEDS: HEPARIN SODIUM - SQ 10,000 UNITS/ML VIAL SQ SCH ×3 (08:17→22:11)
[2016-06-18] MEDS: DOCUSATE SODIUM 100 MG/10 ML UDC PO SCH ×2 (08:17→20:35)
[2016-06-18] MEDS: FAMOTIDINE 20 MG TAB NG SCH ×2 (08:17→20:35)
[2016-06-18] MEDS: SODIUM CHLORIDE 0.9% FLUSH 5 ML FLUSH IV FLUSH SCH ×2 (08:18→20:35)
[2016-06-18] MEDS: RESP: ALBUTEROL 2.5 MG/IPRATROPIUM 0.5 MG NEB (SCH) NEB ×3 (08:22→20:26)
--- NOTE | 2016-06-18 08:47 | HHI.CCPN ---
Subjective Remarks/Hospital Course 80 y/o NH patient with severe dehydration, UTI sepsis, respiratory failure admitted earlier. Nonverbal, minimally responsive. Cachectic, anasarca. 06/05 Patient is sedated with Diprivan and intubated. On Insulin drip. PEG tube was replaced by GI yesterday. 06/06: Remains sedated, orally intubated on mech ventilation. 06/07: Remains sedated, orally intubated on mechanical ventilation. Daily C Pap trials ongoing. 06/08: Sedated, arousable, orally intubated on mechanical ventilation. Failed C Pap trials with low tidal volumes and decreasing pressure support today. 06/09: Afebrile. Feeling CPAP trials again today due to low tidal volumes. Tolerating tube feeding and free water boluses. Positive BM. 06/10: Tmax 102. Currently 99.1. Currently a PSV trials. Extremely low tidal volumes however which requires extra pressure support. Eyes are open but does not follow commands. 06/11: no change. failed PSV trail for tachypnea. still altered, but this is baseline for him apparently. 06/12: no changes. slightly more awake, but not following commands, and still altered. discussed care with palliative who again talked with family, and they want aggressive measures. I think we will be forced to pursue tracheostomy, as I do not think it is safe to extubate this patient given mental status. 06/13: again failed SBT. RSBI 105 with persistent altered mental status. will pursue tracheostomy today. 06/14: trach yesterday. re-cultured yesterday per ID. will follow up cultures. need placement. 06/15: Tmax 99.8. Currently 99.7. Positive BM. Tolerating tube feeding. Opens eyes but does not follow commands. Subjective 06/16: MAXIMUM TEMPERATURE 100.7. Currently 98.8. Patient opens eyes but does not follow commands. 2 bowel movements yesterday. Tolerating tube feeding. 06/17: No change neurologically opens eyes- do not follow commands. Tolerating CPAP 04/24. No other acute events 06/18: Tolerated T piece up to 4 hours yesterday overnight was on Cipro 15 or 5. Intermittent episodes of nausea. KUB showed some gastric distention. I will consult GI. Patient came in with a Mckeon at the PEG site. This was reasonable placed and a standard PEG tube was placed by Dr. Henson on 06/04/16 Objective Vital Signs Date Time Temp Pulse Resp B/P Pulse Ox O2 Delivery O2 Flow Rate FiO2 06/18/16 08:27 100 T-piece 6.00 35 06/18/16 06:00 75 06/18/16 04:00 98.7 30 93/55 Intake and Output 06/17/16 06/17/16 06/18/16 08:00 16:00 00:00 Intake Total 446 ml 336 ml 344 ml Output Total 200 ml 375 ml 900 ml Balance 246 ml -39 ml -556 ml Result Diagram: 06/18/16 0609 06/18/16 0000 Imaging Last Impressions Chest X-Ray 06/13/16 0000 Signed Impressions: Service Date/Time: Monday, June 13, 2016 15:09 - CONCLUSION: 1. No pneumothorax is visualized. Tracheostomy in appropriate position. 2. Small left basilar opacity likely representing pleural effusion with associated volume loss and/or consolidation. There is atelectasis versus consolidation at the right lung base. Gary Tracy MD Objective Remarks GENERAL: 80 yo male patient, critically ill, trached SKIN: Warm and dry. No rash. Positive sacral decubitus ulcer HEAD: Normocephalic. EYES: PERRL. No scleral icterus. No injection or drainage. NECK: Supple, trachea midline. No JVD. tracheostomy in place without bleeding. CARDIOVASCULAR: Regular rate and rhythm with S1, S2. No S4. Without murmurs, gallops, or rubs. RESPIRATORY: Breath sounds equal bilaterally. No accessory muscle use. GASTROINTESTINAL: Abdomen soft, non-tender, nondistended. PEG tube is in place above the umbilicus very little erythema. MUSCULOSKELETAL: With trace nonpitting peripheral upper and lower extremity edema. Extremities are warm. Neuro: Currently arousable, opens eyes but not following commands. Urinary Catheter: Yes Assessment to: Continue A/P Problem List: (1) Severe sepsis with acute organ dysfunction ICD Code: A41.9 Status: Acute (2) Acute respiratory failure ICD Code: J96.00 Status: Acute (3) UTI (urinary tract infection) ICD Code: N39.0 Status: Acute (4) Alzheimer's dementia ICD Code: F02.80 Status: Acute (5) Fever ICD Code: R50.9 Status: Acute (6) Global aphasia ICD Code: R47.02 Status: Acute Assessment and Plan Neuro/Psych: Alzheimer's dementia Hypoactive delirium Depression/anxiety Acetaminophen for fever Monitor neuro status. Continue Provigil 200 mg daily in attempt increased alertness. Pulm: Acute hypoxic and hypercarbic respiratory failure Lower lobe atelectasis Tolerating CPAP, TP for 8-10 hours today, CPAP at night s/p #8 Shiley percutaneous trach 06/13. (Dr. Morataya/Dr. Dai) ICU vent bundle. Bronchodilator therapy every 6 hours and as needed CV: Hypertension Monitor HR and BP keep MAP>65mmHg RENAL/: BPH Monitor renal function, I/O's, electrolytes replacement per protocol. GI: Nausea/vomiting Anorexia Failure to thrive Gastroesophageal reflux disease Constipation Moderate protein calorie malnutrition Continue TF -Glucerna 1.5 with goal rate 50ml/hr via PEG tube On Pepcid.for GI prophylaxis Colace twice a day for bowel regimen Dr. Henson from GI had replaced Mckeon at the PEG tube site with standard PEG tube, reconsult GI for recurrent vomiting Heme: Normocytic anemia Leukocytosis Monitor CBC ID: E. Cloacae UTI Pertinent cultures 06/04 - blood cultures 2 - no growth 06/04 - sputum - negative 06/04 - urine - E. Cloacae 06/07 - blood cultures 2 - negative 06/13 - blood cultures 2 - no growth Negative urine Legionella/pneumococcal antigens Cefepime 1 g every 8 hours per ID Endo: Hyperglycemia of critical illness On SSI, q6h, high scale. much improved glycemic control. FEN Hypophosphatemia On free water 250 cc every 6 hours. replace electrolytes per protocol GI prophylaxis-Pepcid q12h. DVT prophylaxis-continue Heparin SQ twice a day Critical Care: Level 3 PT/OT daily Reno Vega MD Jun 18, 2016 08:47
--- NOTE | 2016-06-18 09:55 | HHI.IDPN ---
Note Infectious Disease Note ID COVERAGE. Notes reviewed. Patient has trach. Did 4 hours T-piece yesterday On T-piece again this morning, looks comfortable Temps better CXR no change NO central line Antibiotics Cefepime Past History Alzheimer's dementia, anxiety, BPH and HNT Allergies: None OBJECTIVE Vital Signs Date Time Temp Pulse Resp B/P Pulse Ox O2 Delivery O2 Flow Rate FiO2 06/18/16 08:27 100 T-piece 6.00 35 06/18/16 06:00 75 06/18/16 04:05 95 30 06/18/16 04:00 98.7 81 30 93/55 94 06/18/16 04:00 35 06/18/16 04:00 81 06/18/16 02:00 81 06/18/16 00:00 35 06/18/16 00:00 97.9 81 28 131/63 100 06/18/16 00:00 81 06/17/16 22:00 81 06/17/16 20:00 35 06/17/16 20:00 82 06/17/16 20:00 98.9 82 26 139/66 99 06/17/16 19:50 98 30 06/17/16 19:00 30 06/17/16 18:00 80 06/17/16 16:15 30 06/17/16 16:00 99.1 83 30 110/65 97 06/17/16 16:00 83 06/17/16 15:43 30 06/17/16 15:43 98 30 06/17/16 14:00 78 06/17/16 13:16 99 T-piece 6.00 35 06/17/16 13:00 99 T-Piece 6.00 35 06/17/16 12:00 30 06/17/16 12:00 87 06/17/16 12:00 98.7 87 12 130/57 96 06/17/16 11:45 95 30 06/17/16 10:00 89 Vital Signs Date Time Temp Pulse Resp B/P Pulse Ox O2 Delivery O2 Flow Rate FiO2 06/17/16 13:16 99 T-piece 6.00 35 06/17/16 12:00 30 06/17/16 12:00 87 06/17/16 12:00 98.7 87 12 130/57 96 06/17/16 11:45 95 30 06/17/16 10:00 89 06/17/16 09:30 30 06/17/16 08:15 30 06/17/16 08:00 98.9 84 23 133/57 97 06/17/16 08:00 89 06/17/16 08:00 30 06/17/16 07:52 30 06/17/16 07:52 99 30 06/17/16 06:00 90 06/17/16 04:09 96 30 06/17/16 04:00 97 06/17/16 04:00 99.6 97 27 128/70 97 06/17/16 04:00 30 06/17/16 01:15 96 30 06/17/16 00:00 99.6 91 14 119/58 94 06/16/16 22:40 97 30 06/16/16 22:00 93 06/16/16 20:00 92 06/16/16 20:00 101.0 92 20 126/66 99 06/16/16 20:00 30 06/16/16 19:40 95 30 06/16/16 18:00 90 06/16/16 17:20 98.8 06/16/16 16:09 97 30 06/16/16 16:00 100.1 85 18 103/56 96 06/16/16 16:00 85 06/16/16 16:00 30 06/16/16 14:00 82 Laboratory Tests Test 06/17/16 06/18/16 06:04 06:09 White Blood Count 8.9 TH/MM3 8.9 TH/MM3 Red Blood Count 3.24 MIL/MM3 3.41 MIL/MM3 Hemoglobin 9.3 GM/DL 9.4 GM/DL Hematocrit 27.1 % 28.5 % Mean Corpuscular Volume 83.6 FL 83.6 FL Mean Corpuscular Hemoglobin 28.7 PG 27.7 PG Mean Corpuscular Hemoglobin 34.3 % 33.2 % Concent Red Cell Distribution Width 17.5 % 17.2 % Platelet Count 374 TH/MM3 375 TH/MM3 Mean Platelet Volume 7.4 FL 7.3 FL Neutrophils (%) (Auto) 74.2 % Lymphocytes (%) (Auto) 18.7 % Monocytes (%) (Auto) 6.0 % Eosinophils (%) (Auto) 0.3 % Basophils (%) (Auto) 0.8 % Neutrophils # (Auto) 6.6 TH/MM3 Lymphocytes # (Auto) 1.7 TH/MM3 Monocytes # (Auto) 0.5 TH/MM3 Eosinophils # (Auto) 0.0 TH/MM3 Basophils # (Auto) 0.1 TH/MM3 CBC Comment DIFF FINAL Differential Comment Laboratory Tests Test 06/17/16 06/18/16 06:04 00:00 Sodium Level 137 MEQ/L 138 MEQ/L Potassium Level 3.4 MEQ/L 4.2 MEQ/L Chloride Level 103 MEQ/L 105 MEQ/L Carbon Dioxide Level 24.7 MEQ/L 26.2 MEQ/L Anion Gap 9 MEQ/L 7 MEQ/L Blood Urea Nitrogen 11 MG/DL 8 MG/DL Creatinine 0.78 MG/DL 0.73 MG/DL Estimat Glomerular Filtration 95 ML/MIN 103 ML/MIN Rate Random Glucose 154 MG/DL 145 MG/DL Calcium Level 8.5 MG/DL 8.5 MG/DL Phosphorus Level 2.1 MG/DL 2.7 MG/DL Magnesium Level 2.5 MG/DL Total Bilirubin 0.4 MG/DL Aspartate Amino Transf 22 U/L (AST/SGOT) Alanine Aminotransferase 22 U/L (ALT/SGPT) Alkaline Phosphatase 63 U/L Total Creatine Kinase 41 U/L Total Protein 7.3 GM/DL Albumin 2.1 GM/DL Microbiology Date/Time Procedure Status Source Growth 06/16/16 17:25 Gram Stain - Final Resulted Sputum Endotracheal 06/16/16 17:25 Sputum Culture - Preliminary Resulted Sputum Endotracheal Laboratory Tests Test 06/15/16 06/16/16 05:56 06:16 White Blood Count 12.5 TH/MM3 8.7 TH/MM3 Red Blood Count 3.74 MIL/MM3 3.13 MIL/MM3 Hemoglobin 10.5 GM/DL 8.9 GM/DL Hematocrit 31.9 % 26.2 % Mean Corpuscular Volume 85.4 FL 83.7 FL Mean Corpuscular Hemoglobin 28.1 PG 28.5 PG Mean Corpuscular Hemoglobin 32.9 % 34.0 % Concent Red Cell Distribution Width 17.4 % 17.1 % Platelet Count 363 TH/MM3 354 TH/MM3 Mean Platelet Volume 7.3 FL 7.4 FL Neutrophils (%) (Auto) 73.9 % Lymphocytes (%) (Auto) 19.7 % Monocytes (%) (Auto) 5.3 % Eosinophils (%) (Auto) 0.5 % Basophils (%) (Auto) 0.6 % Neutrophils # (Auto) 6.4 TH/MM3 Lymphocytes # (Auto) 1.7 TH/MM3 Monocytes # (Auto) 0.5 TH/MM3 Eosinophils # (Auto) 0.0 TH/MM3 Basophils # (Auto) 0.1 TH/MM3 CBC Comment DIFF FINAL Differential Comment Laboratory Tests Test 06/15/16 06/16/16 05:56 06:16 Sodium Level 138 MEQ/L 139 MEQ/L Potassium Level 4.0 MEQ/L 3.6 MEQ/L Chloride Level 105 MEQ/L 105 MEQ/L Carbon Dioxide Level 25.8 MEQ/L 26.3 MEQ/L Anion Gap 7 MEQ/L 8 MEQ/L Blood Urea Nitrogen 14 MG/DL 12 MG/DL Creatinine 0.82 MG/DL 0.81 MG/DL Estimat Glomerular Filtration 90 ML/MIN 91 ML/MIN Rate Random Glucose 163 MG/DL 155 MG/DL Calcium Level 8.4 MG/DL 8.2 MG/DL Phosphorus Level 2.2 MG/DL Magnesium Level 2.5 MG/DL Total Bilirubin 0.3 MG/DL Aspartate Amino Transf 25 U/L (AST/SGOT) Alanine Aminotransferase 22 U/L (ALT/SGPT) Alkaline Phosphatase 71 U/L Total Protein 6.9 GM/DL Albumin 2.0 GM/DL Microbiology Date/Time Procedure Status Source Growth 06/13/16 18:00 Aerobic Blood Culture - Preliminary Resulted Blood Peripheral NO GROWTH IN 3 DAYS 06/13/16 18:00 Anaerobic Blood Culture - Preliminary Resulted Blood Peripheral NO GROWTH IN 3 DAYS 06/13/16 18:05 Aerobic Blood Culture - Preliminary Resulted Blood Peripheral NO GROWTH IN 3 DAYS 06/13/16 18:05 Anaerobic Blood Culture - Preliminary Resulted Blood Peripheral NO GROWTH IN 3 DAYS Imaging Chest X-Ray 06/17/16 0600 Signed Impressions: Service Date/Time: Friday, June 17, 2016 03:24 - CONCLUSION: No significant change has occurred. Todd Burton MD Abdomen X-Ray 06/17/16 0000 Signed Impressions: Service Date/Time: Friday, June 17, 2016 11:51 - CONCLUSION: No abnormal dilatation of the large or small bowel to indicate an ileus. There is a gastrostomy tube in the stomach which appears to be somewhat distended with air. José Miguel Celis MD Chest X-Ray 06/13/16 0000 Signed Impressions: Service Date/Time: Monday, June 13, 2016 15:09 - CONCLUSION: 1. No pneumothorax is visualized. Tracheostomy in appropriate position. 2. Small left basilar opacity likely representing pleural effusion with associated volume loss and/or consolidation. There is atelectasis versus consolidation at the right lung base. Gary Tracy MD Chest X-Ray 06/11/16 0600 Signed Impressions: Service Date/Time: Saturday, June 11, 2016 03:55 - CONCLUSION: Persistent patchy infrahilar infiltrates bilaterally. The endotracheal tube is directed towards right main bronchus and should be withdrawn [address] MD Chest X-Ray 06/07/16 0600 Signed Impressions: Service Date/Time: Tuesday, June 07, 2016 05:08 - CONCLUSION: Improving aeration. Gary Mcgee MD Physical Exam GENERAL: Opens eyes to verbal stimuli. On T-piece, NAD HEENT: Pupils equal and round and reactive. No scleral icterus. oral mucosae dry , NECK: Trachea midline. Trach site ok CARDIOVASCULAR: Regular rate and rhythm without murmurs, gallops, or rubs. RESPIRATORY: Few rhonchi. Decreased BS bases GASTROINTESTINAL: Abdomen soft, non-tender, nondistended. MUSCULOSKELETAL: Extremities without clubbing, cyanosis, 2+ edema. SKIN: No jaundice, rashes, or lesions. NEUROLOGICAL: opens eyes PSYCHIATRIC: unable to assess LINE: PIV no evidence of infection IMPRESSION UTI, sepsis Stable. ARF, improved Acute VDRF - intubated. CXR shows atelectasis vs PNA. ? PNA Low grade fever. ? source ? aspiration. RECOMMENDATIONS. Continue Cefepime. Follow new C/S Follow temp. Follow clinical status. Weaning per [facility] Tania Smith MD Jun 18, 2016 09:55
--- NOTE | 2016-06-18 15:28 | HHI.GIFU ---
GI Follow-up Note Consult Follow-up Subjective: GI reconsulted as patient had vomited yesterday and had hig residuals .Today he is on TF at 30 cc/hrs, tolerating well, having bowel movements.Mold distension of abdomen but soft, peg in place Objective: PHYSICAL EXAMINATION: Vitals signs stable No fever Vital Signs Date Time Temp Pulse Resp B/P Pulse Ox O2 Delivery O2 Flow Rate FiO2 06/18/16 08:30 96 Trach Collar 28 06/18/16 08:27 100 T-piece 6.00 35 06/18/16 08:00 99 Mechanical Ventilator 40 06/18/16 08:00 35 HEENT: opening eyes NECK: Neck is supple, no JVD, no lymphadenopathy, tracheostomy in place CHEST: Chest is clear to auscultation and percussion, few rhonchi CARDIAC: Regular rate and rhythm with no murmur gallop or rubs. ABDOMEN: Soft, mildly distended, nontender; no hepatosplenomegaly; bowel sounds are present in all four quadrants, peg in place EXTREMITIES: No clubbing, cyanosis, or edema. SKIN: Normal; no rash; no jaundice. INGOT CASTER: sedated. Available Data (labs, X- Rays, Procedues) : Laboratory Tests Test 06/17/16 06/18/16 06/18/16 06:04 00:00 06:09 White Blood Count 8.9 TH/MM3 8.9 TH/MM3 Red Blood Count 3.24 MIL/MM3 3.41 MIL/MM3 Hemoglobin 9.3 GM/DL 9.4 GM/DL Hematocrit 27.1 % 28.5 % Mean Corpuscular Volume 83.6 FL 83.6 FL Mean Corpuscular Hemoglobin 28.7 PG 27.7 PG Mean Corpuscular Hemoglobin 34.3 % 33.2 % Concent Red Cell Distribution Width 17.5 % 17.2 % Platelet Count 374 TH/MM3 375 TH/MM3 Mean Platelet Volume 7.4 FL 7.3 FL Neutrophils (%) (Auto) 74.2 % Lymphocytes (%) (Auto) 18.7 % Monocytes (%) (Auto) 6.0 % Eosinophils (%) (Auto) 0.3 % Basophils (%) (Auto) 0.8 % Neutrophils # (Auto) 6.6 TH/MM3 Lymphocytes # (Auto) 1.7 TH/MM3 Monocytes # (Auto) 0.5 TH/MM3 Eosinophils # (Auto) 0.0 TH/MM3 Basophils # (Auto) 0.1 TH/MM3 CBC Comment DIFF FINAL Differential Comment Sodium Level 137 MEQ/L 138 MEQ/L Potassium Level 3.4 MEQ/L 4.2 MEQ/L Chloride Level 103 MEQ/L 105 MEQ/L Carbon Dioxide Level 24.7 MEQ/L 26.2 MEQ/L Anion Gap 9 MEQ/L 7 MEQ/L Blood Urea Nitrogen 11 MG/DL 8 MG/DL Creatinine 0.78 MG/DL 0.73 MG/DL Estimat Glomerular Filtration 95 ML/MIN 103 ML/MIN Rate Random Glucose 154 MG/DL 145 MG/DL Calcium Level 8.5 MG/DL 8.5 MG/DL Phosphorus Level 2.1 MG/DL 2.7 MG/DL Magnesium Level 2.5 MG/DL Total Bilirubin 0.4 MG/DL Aspartate Amino Transf 22 U/L (AST/SGOT) Alanine Aminotransferase 22 U/L (ALT/SGPT) Alkaline Phosphatase 63 U/L Total Creatine Kinase 41 U/L Total Protein 7.3 GM/DL Albumin 2.1 GM/DL ASSESSMENT/PLAN: ileus tolerating tube feeding for now possible some degree of gastroparesis Recommendations trial of Reglan 5 mg iv q 8 hrs magnesium citrate 1 bottle if further vomiting-hold tf, place peg to suction and consider changing to g/j tube increase tf rate slowly It was a pleasure seeing Jerrell Amin Thank you for this consult. Entered by: Jaki Holcomb MD Jun 18, 2016 15:28
[2016-06-18] MEDS ORDERED: MAGNESIUM CITRATE SOLN 300 ML BTL PO ONE (15:30)
[2016-06-18] MEDS ORDERED: POLYETHYLENE GLYCOL 17 GM PKG PO ONE (16:00)
[2016-06-18] MEDS: METOCLOPRAMIDE HCL 10 MG/2 ML VIAL IV PUSH SCH (22:11)
[2016-06-19] VITALS (15 sets, daily range): BP systolic 100–113; BP diastolic 51–60; PULSE 75–87; RESP 15–31; TEMP 98.9–100.9; O2SAT 96–99
[2016-06-19] MEDS: RESP: ALBUTEROL 2.5 MG/IPRATROPIUM 0.5 MG NEB (SCH) NEB ×3 (03:58→15:30)
[2016-06-19] MEDS: CHLORHEXIDINE GLUCONATE 2 % 1 PACK (2 CLOTHS) TOP SCH ×2 (04:00→19:41)
[2016-06-19] MEDS: INSULIN NovoLIN REGULAR SUPPLEMENTAL SCALE SQ SCH ×6 (04:00→23:08)
[2016-06-19] MEDS: CEFEPIME INJ 1,000 MG in SODIUM CHLORIDE 0.9% INJ 100 ML IV SCH ×3 (05:34→20:54)
[2016-06-19] MEDS: HEPARIN SODIUM - SQ 10,000 UNITS/ML VIAL SQ SCH ×3 (05:35→20:54)
[2016-06-19] MEDS: METOCLOPRAMIDE HCL 10 MG/2 ML VIAL IV PUSH SCH ×3 (05:35→20:54)
[2016-06-19] MEDS: FREE WATER G-TUBE SCH ×4 (05:39→23:07)
[2016-06-19] MEDS: DOCUSATE SODIUM 100 MG/10 ML UDC PO SCH ×2 (08:34→20:53)
[2016-06-19] MEDS: FAMOTIDINE 20 MG TAB NG SCH ×2 (08:34→20:54)
[2016-06-19] MEDS: MODAFINIL 200 MG TAB PO SCH (08:34)
[2016-06-19] MEDS: SODIUM CHLORIDE 0.9% FLUSH 5 ML FLUSH IV FLUSH SCH ×2 (08:35→20:54)
--- NOTE | 2016-06-19 12:49 | HHI.CCPN ---
Subjective Remarks/Hospital Course 80 y/o NH patient with severe dehydration, UTI sepsis, respiratory failure admitted earlier. Nonverbal, minimally responsive. Cachectic, anasarca. 06/05 Patient is sedated with Diprivan and intubated. On Insulin drip. PEG tube was replaced by GI yesterday. 06/06: Remains sedated, orally intubated on mech ventilation. 06/07: Remains sedated, orally intubated on mechanical ventilation. Daily C Pap trials ongoing. 06/08: Sedated, arousable, orally intubated on mechanical ventilation. Failed C Pap trials with low tidal volumes and decreasing pressure support today. 06/09: Afebrile. Feeling CPAP trials again today due to low tidal volumes. Tolerating tube feeding and free water boluses. Positive BM. 06/10: Tmax 102. Currently 99.1. Currently a PSV trials. Extremely low tidal volumes however which requires extra pressure support. Eyes are open but does not follow commands. 06/11: no change. failed PSV trail for tachypnea. still altered, but this is baseline for him apparently. 06/12: no changes. slightly more awake, but not following commands, and still altered. discussed care with palliative who again talked with family, and they want aggressive measures. I think we will be forced to pursue tracheostomy, as I do not think it is safe to extubate this patient given mental status. 06/13: again failed SBT. RSBI 105 with persistent altered mental status. will pursue tracheostomy today. 06/14: trach yesterday. re-cultured yesterday per ID. will follow up cultures. need placement. 06/15: Tmax 99.8. Currently 99.7. Positive BM. Tolerating tube feeding. Opens eyes but does not follow commands. Subjective 06/16: MAXIMUM TEMPERATURE 100.7. Currently 98.8. Patient opens eyes but does not follow commands. 2 bowel movements yesterday. Tolerating tube feeding. 06/17: No change neurologically opens eyes- do not follow commands. Tolerating CPAP 04/24. No other acute events 06/18: Tolerated T piece up to 4 hours yesterday overnight was on Cipro 15 or 5. Intermittent episodes of nausea. KUB showed some gastric distention. I will consult GI. Patient came in with a Mckeon at the PEG site. This was reasonable placed and a standard PEG tube was placed by Dr. Henson on 06/04/1606/19: Tolerated T piece for several hours yesterday. Intermittent vomiting some abdominal distention. GI has started on Reglan for possible gastroparesis. Will check CT abd pelvis Objective Vital Signs Date Time Temp Pulse Resp B/P Pulse Ox O2 Delivery O2 Flow Rate FiO2 06/19/16 12:00 30 06/19/16 12:00 99.0 79 22 105/51 06/19/16 12:00 Mechanical Ventilator 06/19/16 08:54 96 6.00 Intake and Output 06/18/16 06/18/16 06/19/16 08:00 16:00 00:00 Intake Total 105 ml 277 ml 519 ml Output Total 750 ml 950 ml 450 ml Balance -645 ml -673 ml 69 ml Result Diagram: 06/18/16 0609 06/18/16 0000 Other Results Microbiology Date/Time Procedure Status Source Growth 06/16/16 17:25 Gram Stain - Final Complete Sputum Endotracheal 06/16/16 17:25 Sputum Culture - Final Complete [facility] Last Impressions Chest X-Ray 06/13/16 0000 Signed Impressions: Service Date/Time: Monday, June 13, 2016 15:09 - CONCLUSION: 1. No pneumothorax is visualized. Tracheostomy in appropriate position. 2. Small left basilar opacity likely representing pleural effusion with associated volume loss and/or consolidation. There is atelectasis versus consolidation at the right lung base. Gary Tracy MD Objective Remarks GENERAL: 80 yo male patient, critically ill, trach+ SKIN: Warm and dry. No rash. Positive sacral decubitus ulcer HEAD: Normocephalic. EYES: PERRL. No scleral icterus. No injection or drainage. NECK: Supple, trachea midline. No JVD. tracheostomy in place without bleeding. CARDIOVASCULAR: Regular rate and rhythm with S1, S2. No S4. Without murmurs, gallops, or rubs. RESPIRATORY: Breath sounds equal bilaterally. No accessory muscle use. GASTROINTESTINAL: Abdomen soft, non-tender, distended. PEG tube is in place above the umbilicus very little erythema. MUSCULOSKELETAL: With trace nonpitting peripheral upper and lower extremity edema. Extremities are warm. Neuro: Arousable, opens eyes but not following commands. Advance dementia A/P Problem List: (1) Severe sepsis with acute organ dysfunction ICD Code: A41.9 Status: Acute (2) Acute respiratory failure ICD Code: J96.00 Status: Acute (3) UTI (urinary tract infection) ICD Code: N39.0 Status: Acute (4) Alzheimer's dementia ICD Code: F02.80 Status: Acute (5) Fever ICD Code: R50.9 Status: Acute (6) Global aphasia ICD Code: R47.02 Status: Acute Assessment and Plan Neuro/Psych: Alzheimer's dementia Hypoactive delirium Depression/anxiety Acetaminophen for fever. Monitor neuro status. Continue Provigil 200 mg daily in attempt increased alertness. Pulm: Acute hypoxic and hypercarbic respiratory failure Lower lobe atelectasis Tolerating CPAP, TP for 8-10 hours yesterday, leave on TP 11/12 as tolerated starting 06/19 s/p #8 Shiley percutaneous trach 06/13. (Dr. Morataya/Dr. Dai) ICU vent bundle. Bronchodilator therapy every 6 hours and as needed CV: Hypertension Monitor HR and BP keep MAP>65mmHg RENAL/: BPH Monitor renal function, I/O's, electrolytes replacement per protocol. GI: Nausea/vomiting Anorexia Failure to thrive Gastroesophageal reflux disease Constipation Moderate protein calorie malnutrition TF -Glucerna 1.5 with goal rate 50ml/hr via PEG tube-On hold for recurrent N/V CT abd pelvis r/u ileus, confirm PEG position. May need GJ tube On Pepcid.for GI prophylaxis Colace twice a day for bowel regimen Dr. Henson from GI had replaced Mckeon at the PEG tube site with standard PEG tube, reconsult GI for recurrent vomiting Heme: Normocytic anemia Leukocytosis Monitor CBC ID: E. Cloacae UTI Pertinent cultures 06/04 - blood cultures 2 - no growth 06/04 - sputum - negative 06/04 - urine - E. Cloacae 06/07 - blood cultures 2 - negative 06/13 - blood cultures 2 - no growth Negative urine Legionella/pneumococcal antigens Cefepime 1 g every 8 hours per ID Endo: Hyperglycemia of critical illness On SSI, q6h, high scale. much improved glycemic control. FEN Hypophosphatemia On free water 250 cc every 6 hours. replace electrolytes per protocol GI prophylaxis-Pepcid q12h. DVT prophylaxis-continue Heparin SQ twice a day Critical Care: Level 3 PT/OT daily Reno Vega MD Jun 19, 2016 12:49
[2016-06-19] MEDS: RESP: ALBUTEROL 2.5 MG/IPRATROPIUM 0.5 MG NEB (PRN) INH (19:44)
[2016-06-20] VITALS (14 sets, daily range): BP systolic 114–121; BP diastolic 1–69; PULSE 76–103; RESP 16–22; TEMP 98–99.1; O2SAT 95–99
[2016-06-20] MEDS ORDERED: EPINEPHrine HCL (1:10,000) 1 MG/10 ML SYRINGE ONE (01:47)
--- NOTE | 2016-06-20 02:56 | RADRPT ---
EXAM DATE/TIME: 06/20/2016 02:30 [place] COMPARISON: CT ABDOMEN & PELVIS W CONTRAST, November 28, 2014, 16:49. INDICATIONS : Evaluate for ileus. ORAL CONTRAST: No oral contrast ingested. RADIATION DOSE: 13.64 CTDIvol (mGy) MEDICAL HISTORY : Dementia. Alzheimer's. Hypertension. SURGICAL HISTORY : Peg tube ENCOUNTER: Initial ACUITY: 1 day PAIN SCALE: Non-responsive LOCATION: abdomen TECHNIQUE: Volumetric scanning of the abdomen and pelvis was performed. Using automated exposure control and ad justment of the mA and/or kV according to patient size, radiation dose was kept as low as reasonably achievable to obtain optimal diagnostic quality images. FINDINGS: LOWER LUNGS: The visualized lower lungs are clear. LIVER: Homogeneous density without lesion. There is no dilation of the biliary tree. No calcified gallston es. SPLEEN: Normal size without lesion. PANCREAS: Within normal limits. KIDNEYS: Normal in size and shape. There is no mass, stone, or hydronephrosis. ADRENAL GLANDS: Within normal limits. VASCULAR: There is no aortic aneurysm. BOWEL/MESENTERY: Nonobstructive pattern. Moderate stool throughout the colon. No small bowel distention. No free air. Patient has a percutaneously placed gastric feeding tube appropriately positioned in the distal body. ABDOMINAL WALL: Within normal limits. RETROPERITONEUM: There is no lymphadenopathy. BLADDER: No wall thickening or mass. REPRODUCTIVE: Within normal limits. INGUINAL: There is no lymphadenopathy or hernia. MUSCULOSKELETAL: There is a fracture of the left femoral neck, probably subacute in age but not solidly healed. The fr acture is new compared to the prior CT. CONCLUSION: 1. Moderate stool throughout the colon. No obstruction or inflammatory changes. No small bowel disten tion. 2. Subacute appearing left hip fracture. 3. PEG tube without evidence of an acute complication. Gary Griffin MD on June 20, 2016 at 2:51 Board Certified Radiologist. This report was verified electronically.
[2016-06-20] MEDS: INSULIN NovoLIN REGULAR SUPPLEMENTAL SCALE SQ SCH ×2 (03:21→08:25)
[2016-06-20] MEDS: CEFEPIME INJ 1,000 MG in SODIUM CHLORIDE 0.9% INJ 100 ML IV SCH (03:50)
[2016-06-20] MEDS: RESP: ALBUTEROL 2.5 MG/IPRATROPIUM 0.5 MG NEB (PRN) INH (03:54)
[2016-06-20] MEDS: HEPARIN SODIUM - SQ 10,000 UNITS/ML VIAL SQ SCH ×3 (04:45→20:30)
[2016-06-20] MEDS: FREE WATER G-TUBE SCH ×4 (04:45→22:44)
[2016-06-20] MEDS: METOCLOPRAMIDE HCL 10 MG/2 ML VIAL IV PUSH SCH ×3 (04:45→20:30)
[2016-06-20] MEDS: FAMOTIDINE 20 MG TAB NG SCH ×2 (08:25→20:30)
[2016-06-20] MEDS: DOCUSATE SODIUM 100 MG/10 ML UDC PO SCH ×2 (08:25→20:30)
[2016-06-20] MEDS: SODIUM CHLORIDE 0.9% FLUSH 5 ML FLUSH IV FLUSH SCH ×2 (08:26→20:30)
[2016-06-20] MEDS: MODAFINIL 200 MG TAB PO SCH (08:26)
--- NOTE | 2016-06-20 13:04 | HHI.IDPN ---
Note Infectious Disease Note Notes reviewed. Patient is on T- Piece and tolerating it. Opens eyes to voice but remains lethargic and is not following commands. Afebrile. Antibiotics Cefepime Past Medical History Alzheimer's dementia, anxiety, BPH and HNT Allergies: Coded Allergies: No Known Allergies (Unverified , 01/04/16) Objective Vital Signs Date Time Temp Pulse Resp B/P Pulse Ox O2 Delivery O2 Flow Rate FiO2 06/20/16 10:08 98 T-piece 6.00 40 06/20/16 10:00 79 06/20/16 08:00 98.0 85 20 114/1 97 06/20/16 08:00 98 06/20/16 08:00 Mechanical Ventilator 06/20/16 06:00 86 06/20/16 04:00 98.5 86 20 117/55 95 06/20/16 04:00 T-Piece 06/20/16 04:00 88 06/20/16 04:00 30 06/20/16 02:00 85 06/20/16 00:00 T-Piece 06/20/16 00:00 30 06/20/16 00:00 98.5 88 20 115/64 95 06/20/16 00:00 88 06/19/16 20:00 99.0 80 22 111/60 96 06/19/16 20:00 T-Piece 06/19/16 20:00 30 06/19/16 20:00 80 06/19/16 19:45 99 6.00 40 06/19/16 18:00 80 06/19/16 16:00 87 06/19/16 16:00 T-Piece 06/19/16 16:00 98.9 87 20 113/55 06/19/16 16:00 30 06/19/16 14:00 82 06/19/16 06/19/16 06/20/16 15:00 23:00 07:00 Intake Total 736 ml 88 ml 88 ml Output Total 450 ml 800 ml Balance 286 ml -712 ml 88 ml IV Total 236 ml 88 ml 88 ml Other 500 ml Output Urine Total 450 ml 800 ml # Bowel Movements 0 Imaging Abdomen/Pelvis CT 06/19/16 0000 Signed Impressions: Service Date/Time: Monday, June 20, 2016 02:30 - CONCLUSION: 1. Moderate stool throughout the colon. No obstruction or inflammatory changes. No small bowel distention. 2. Subacute appearing left hip fracture. 3. PEG tube without evidence of an acute complication. Gary Griffin MD Chest X-Ray 06/13/16 0000 Signed Impressions: Service Date/Time: Monday, June 13, 2016 15:09 - CONCLUSION: 1. No pneumothorax is visualized. Tracheostomy in appropriate position. 2. Small left basilar opacity likely representing pleural effusion with associated volume loss and/or consolidation. There is atelectasis versus consolidation at the right lung base. Gary Tracy MD Chest X-Ray 06/11/16 0600 Signed Impressions: Service Date/Time: Saturday, June 11, 2016 03:55 - CONCLUSION: Persistent patchy infrahilar infiltrates bilaterally. The endotracheal tube is directed towards right main bronchus and should be withdrawn [address] MD Chest X-Ray 06/07/16 0600 Signed Impressions: Service Date/Time: Tuesday, June 07, 2016 05:08 - CONCLUSION: Improving aeration. Gary Mcgee MD Physical Exam GENERAL: Opens eyes to verbal stimuli. HEENT: No scleral icterus. oral mucosae dry, NECK: Trachea midline. CARDIOVASCULAR: Regular rate and rhythm without murmurs, gallops, or rubs. RESPIRATORY: Bilateral rhonchi. GASTROINTESTINAL: Abdomen soft, non-tender, nondistended. MUSCULOSKELETAL: Extremities without clubbing, cyanosis, 1+ edema. SKIN: No jaundice, rashes, or lesions. NEUROLOGICAL: Opens eyes but not responding. PSYCHIATRIC: unable to assess Assessment & Plan Remarks UTI, sepsis Stable. ARF, improved Acute Ventilator dependent respiratory failure - Extubated. PNA. repeat sputum culture with alla. No need to treat. Low grade fever. ? source ? aspiration. Resolved. RECOMMENDATIONS. Stop Cefepime. Follow temp. Follow clinical status. Cornel Ordoñez MD Jun 20, 2016 13:04
--- NOTE | 2016-06-20 14:01 | HHI.HCPN ---
Reason for visit a. To assist with evaluation and management of symptoms including: debility and shortness of breath. b. To assist medical decision maker(s) with: better understanding of current medical conditions; weighing benefits/burdens of medical treatment options; making medical treatment decisions. . Subjective/Interval History Patient seen in his room. No family at bedside. Pt Awake, opening eyes, not tracking. Not following any commands. Patient s/p trach on 06/13. Currently on T collar trails, tolerated 4 hours yesterday. Intermittent vomiting and high TF residuals reported, GI reconsulted. TF on hold at this time. CT abd and pelvis with no obstruction or SBO, moderate stool throughout the colon. Afebrile today, BP stable. No new labs or imaging. . Family/friend interactions Telephone conversation with pt's son Winifred. Medical update provided. Reviewed plan of care to include cont attempting at vent weaning/trach collar. Reviewed disposition as [facility] have declined patient secondary to insurance. Family amenable at having patient return to [facility] upon discharge. All questions answered. Son verbalized appreciation for this phone call. . Advance Directives Living Will: Never completed Health Care Surrogate: Never completed Durable Power of Finger Lift Operator: Never completed Advance Directive Specifics Health Care Surrogate(s): No HCS completed. As per [place] law, patient Kvng Amin is HCP. also elderly, relying on her sons Winifred and Milan to make healthcare decisions. Documented care wishes: No living will completed. . Significant change in goals: FULL CODE. Continue aggressive care. Objective Vital Signs Date Time Temp Pulse Resp B/P Pulse Ox O2 Delivery O2 Flow Rate FiO2 06/20/16 12:00 80 06/20/16 10:08 98 T-piece 6.00 40 06/20/16 10:00 79 06/20/16 08:00 98.0 85 20 114/1 97 06/20/16 08:00 98 06/20/16 08:00 Mechanical Ventilator 06/20/16 06:00 86 06/20/16 04:00 98.5 86 20 117/55 95 06/20/16 04:00 T-Piece 06/20/16 04:00 88 06/20/16 04:00 30 06/20/16 02:00 85 06/20/16 00:00 T-Piece 06/20/16 00:00 30 06/20/16 00:00 98.5 88 20 115/64 95 06/20/16 00:00 88 06/19/16 20:00 99.0 80 22 111/60 96 06/19/16 20:00 T-Piece 06/19/16 20:00 30 06/19/16 20:00 80 06/19/16 19:45 99 6.00 40 06/19/16 18:00 80 06/19/16 16:00 87 06/19/16 16:00 T-Piece 06/19/16 16:00 98.9 87 20 113/55 06/19/16 16:00 30 06/19/16 14:00 82 Intake & Output 06/20/16 06/20/16 07:00 19:00 Intake Total 176 ml Output Total 800 ml Balance -624 ml IV Total 176 ml Output Urine Total 800 ml Physical Exam CONSTITUTIONAL/GENERAL: This is a frail elderly man in no apparent distress. trach in place. TUBES/LINES/DRAINS: Trach, PEG, Mckeon cath. SCD's, PIV's. SKIN: No jaundice or rashes. Scattered ecchymoses on upper extremities. Skin temperature appropriate. Not diaphoretic. Suspected deep tissue ulcer to right inner heel. HEAD: Atraumatic. Normocephalic. EYES: Pupils equal and round and reactive. No injection or drainage. ENT: Unable to assess hearing. Nose without bleeding or purulent drainage. Unable to evaluate throat due to ETT. Small amounts of clear oral secretions. NECK: Trach in place. T-collar. CARDIOVASCULAR: Regular rate and rhythm without murmurs, gallops, or rubs. Weak pedal pulses bilat. RESPIRATORY/CHEST: Symmetric, unlabored respirations. clear, diminished. On trach collar. GASTROINTESTINAL: Abdomen firm, round, large. PEG tube in place. Bowel sounds present. TF on hold at this time. GENITOURINARY: Without palpable bladder distension. Mckeon catheter in place. MUSCULOSKELETAL: Edema to BUE. Bilateral knee contractures noted. NEUROLOGICAL: alert, eyes open. Not following any command. Non-verbal at baseline. PSYCHIATRIC: Unable to assess due to clinical condition. Appears calm. . Diagnostic Tests Laboratory Laboratory Tests Test 06/18/16 06/18/16 00:00 06:09 Sodium Level 138 MEQ/L (136-145) Potassium Level 4.2 MEQ/L (3.5-5.1) Chloride Level 105 MEQ/L (98-107) Carbon Dioxide Level 26.2 MEQ/L (21.0-32.0) Anion Gap 7 MEQ/L (5-15) Blood Urea Nitrogen 8 MG/DL (7-18) Creatinine 0.73 MG/DL (0.60-1.30) Estimat Glomerular Filtration 103 ML/MIN Rate (>89) Random Glucose 145 MG/DL (74-106) Calcium Level 8.5 MG/DL (8.5-10.1) Phosphorus Level 2.7 MG/DL (2.5-4.9) White Blood Count 8.9 TH/MM3 (4.0-11.0) Red Blood Count 3.41 MIL/MM3 (4.50-5.90) Hemoglobin 9.4 GM/DL (13.0-17.0) Hematocrit 28.5 % (39.0-51.0) Mean Corpuscular Volume 83.6 FL (80.0-100.0) Mean Corpuscular Hemoglobin 27.7 PG (27.0-34.0) Mean Corpuscular Hemoglobin 33.2 % Concent (32.0-36.0) Red Cell Distribution Width 17.2 % (11.6-17.2) Platelet Count 375 TH/MM3 (150-450) Mean Platelet Volume 7.3 FL (7.0-11.0) Result Diagram: 06/18/16 0609 06/18/16 0000 Imaging Last Impressions Abdomen/Pelvis CT 06/19/16 0000 Signed Impressions: Service Date/Time: Monday, June 20, 2016 02:30 - CONCLUSION: 1. Moderate stool throughout the colon. No obstruction or inflammatory changes. No small bowel distention. 2. Subacute appearing left hip fracture. 3. PEG tube without evidence of an acute complication. Gary Griffin MD Chest X-Ray 06/17/16 0600 Signed Impressions: Service Date/Time: Friday, June 17, 2016 03:24 - CONCLUSION: No significant change has occurred. Todd Burton MD Abdomen X-Ray 06/17/16 0000 Signed Impressions: Service Date/Time: Friday, June 17, 2016 11:51 - CONCLUSION: No abnormal dilatation of the large or small bowel to indicate an ileus. There is a gastrostomy tube in the stomach which appears to be somewhat distended with air. José Miguel Celis MD Procedures * 06/13/16 -Trach placed. * 06/04/16 -Intubated. * 06/04/16 -PEG tube replaced. * 06/04/16 -Left subclavian central line placed. . Assessment and Plan Disease Oriented Problem List: (1) Severe sepsis with acute organ dysfunction (2) Acute respiratory failure (3) Alzheimer's dementia Symptom Scale: (1) Shortness of breath 0-10 Scale: Unable to quantify Comment: s/p trach. (2) Debility 0-10 Scale: Unable to quantify Comment: Progressive, secondary to severe dementia. Bedbound at baseline. (3) Pain 0-10 Scale: Unable to quantify Comment: history of chronic pain. Pertinent Non-Medical Issues Psychosocial: . Has 2 children. SNF resident. Spiritual: Not spiritual. Legal: No living will completed. Ethical issues impacting care: No living will completed. who is serving as HCP relies on sons for share decision-making. . Important Contacts Kvng Amin and son Winifred . . Prognosis Mr. Amin is an 80 y/o male with a medical history significant for severe Alzheimer's dementia, anxiety, BPH and HNT who is bedbound and non-verbal at baseline. Patient admitted on 06/04/16 secondary to septic shock and acute respiratory failure. Patient remains intubated on mechanical ventilation. Baseline with documented progressive physical and cognitive decline, now total care at SNF. PEG placed on November secondary to dysphagia and failure to thrive , patient continued declining post PEG placement. Patient is at high risk for further complication, continued decline, and given his poor functional status and health at baseline. His prognosis is poor for an improved quality of life or long-term survival. . Code Status: Full Code Plan * FULL CODE * Patient incapacitated secondary to severe dementia. No HCS completed. As per [place] law, patient's Kvng Amin is healthcare proxy. also elderly , relying on her sons Winifred and Milan to make healthcare decisions. Recommend share decision-making with and sons. * Goals of care: 06/20/16. FULL CODE. Goals remain unchanged. Family wishing for continuation of aggressive care. Telephone conversation with pt's son Winifred. Medical update provided. Reviewed plan of care to include cont attempting at vent weaning/trach collar. Reviewed disposition as [facility] has declined patient secondary to insurance. Family amenable at having patient return to [facility] upon discharge. * Patient hospice appropriate; however, not in line with goals of care/family's wishes. FAST 7e at baseline, PPS 30% -PEG feeding. * Symptoms: shortness of breath, s/p trach. Currently in T-collar trials. Debility: progressive secondary to severe dementia. Patient bedbound and total care at baseline. Pain, history of chronic pain. Morphine and Tylenol available as needed. * Discussed case with bedside RN. * Palliative care contact information provided to patient's family. All questions were answered in great detail. * Palliative care to continue to f/y pt/family for further clarification of goals of care. . Time Spent Total Floor Time (mins): 35 (Total care to include records review, physical exam, and telephone conversation with son. ) Face to Face Time (mins): 20 >50% Counseling/Coord of Care: Yes Attestation To help prompt me to consider important information that might be impacting today's encounter and assessment, information from prior notes written by myself or my colleagues may have been "brought forward" into today's note. My signature on this note, however, is an attestation that I personally performed the exam, history, and/or decision-making noted today, and, unless otherwise indicated, the interactions with patient, family, and staff as well as the review of records all occurred today. I also attest that the listed assessment and stated plan reflect my best clinical judgment today based on the combination of historical information, prior notes, and today's exam/ interactions. When time spent is documented, it refers only to time spent today by the signer, or if indicated, combined time spent today by collaborating physician/nurse practitioner. Charlotte Hall Jun 20, 2016 14:01
--- NOTE | 2016-06-20 15:17 | HHI.CCPN ---
Subjective Remarks/Hospital Course 80 y/o NH patient with severe dehydration, UTI sepsis, respiratory failure admitted earlier. Nonverbal, minimally responsive. Cachectic, anasarca. 06/05 Patient is sedated with Diprivan and intubated. On Insulin drip. PEG tube was replaced by GI yesterday. 06/06: Remains sedated, orally intubated on mech ventilation. 06/07: Remains sedated, orally intubated on mechanical ventilation. Daily C Pap trials ongoing. 06/08: Sedated, arousable, orally intubated on mechanical ventilation. Failed C Pap trials with low tidal volumes and decreasing pressure support today. 06/09: Afebrile. Feeling CPAP trials again today due to low tidal volumes. Tolerating tube feeding and free water boluses. Positive BM. 06/10: Tmax 102. Currently 99.1. Currently a PSV trials. Extremely low tidal volumes however which requires extra pressure support. Eyes are open but does not follow commands. 06/11: no change. failed PSV trail for tachypnea. still altered, but this is baseline for him apparently. 06/12: no changes. slightly more awake, but not following commands, and still altered. discussed care with palliative who again talked with family, and they want aggressive measures. I think we will be forced to pursue tracheostomy, as I do not think it is safe to extubate this patient given mental status. 06/13: again failed SBT. RSBI 105 with persistent altered mental status. will pursue tracheostomy today. 06/14: trach yesterday. re-cultured yesterday per ID. will follow up cultures. need placement. 06/15: Tmax 99.8. Currently 99.7. Positive BM. Tolerating tube feeding. Opens eyes but does not follow commands. Subjective 06/16: MAXIMUM TEMPERATURE 100.7. Currently 98.8. Patient opens eyes but does not follow commands. 2 bowel movements yesterday. Tolerating tube feeding. 06/17: No change neurologically opens eyes- do not follow commands. Tolerating CPAP 04/24. No other acute events 06/18: Tolerated T piece up to 4 hours yesterday overnight was on Cipro 15 or 5. Intermittent episodes of nausea. KUB showed some gastric distention. I will consult GI. Patient came in with a Mckeon at the PEG site. This was reasonable placed and a standard PEG tube was placed by Dr. Henson on 06/04/1606/19: Tolerated T piece for several hours yesterday. Intermittent vomiting some abdominal distention. GI has started on Reglan for possible gastroparesis. Will check CT abd pelvis 06/20 Tolerating TP >[address] abdomen pelvis no obstruction, PEG tube in appropriate place. Objective Vital Signs Date Time Temp Pulse Resp B/P Pulse Ox O2 Delivery O2 Flow Rate FiO2 06/20/16 12:00 80 06/20/16 10:08 98 T-piece 6.00 40 06/20/16 08:00 98.0 20 114/1 Intake and Output 06/19/16 06/19/16 06/20/16 08:00 16:00 00:00 Intake Total 242 ml 736 ml 88 ml Output Total 350 ml 450 ml 800 ml Balance -108 ml 286 ml -712 ml Result Diagram: 06/18/16 0609 06/18/16 0000 Imaging Last Impressions Chest X-Ray 06/13/16 0000 Signed Impressions: Service Date/Time: Monday, June 13, 2016 15:09 - CONCLUSION: 1. No pneumothorax is visualized. Tracheostomy in appropriate position. 2. Small left basilar opacity likely representing pleural effusion with associated volume loss and/or consolidation. There is atelectasis versus consolidation at the right lung base. Gary Tracy MD Objective Remarks GENERAL: 80 yo male patient, critically ill, trach+ SKIN: Warm and dry. No rash. Positive sacral decubitus ulcer HEAD: Normocephalic. EYES: PERRL. No scleral icterus. No injection or drainage. NECK: Supple, trachea midline. No JVD. tracheostomy in place without bleeding. CARDIOVASCULAR: Regular rate and rhythm with S1, S2. No S4. Without murmurs, gallops, or rubs. RESPIRATORY: Breath sounds equal bilaterally. No accessory muscle use. GASTROINTESTINAL: Abdomen soft, non-tender, distended. PEG tube is in place above the umbilicus very little erythema. MUSCULOSKELETAL: With trace nonpitting peripheral upper and lower extremity edema. Extremities are warm. Neuro: Arousable, opens eyes but not following commands. Advanced dementia A/P Problem List: (1) Severe sepsis with acute organ dysfunction ICD Code: A41.9 Status: Acute (2) Acute respiratory failure ICD Code: J96.00 Status: Acute (3) UTI (urinary tract infection) ICD Code: N39.0 Status: Acute (4) Alzheimer's dementia ICD Code: F02.80 Status: Acute (5) Fever ICD Code: R50.9 Status: Acute (6) Global aphasia ICD Code: R47.02 Status: Acute Assessment and Plan Neuro/Psych: Alzheimer's dementia Hypoactive delirium Depression/anxiety Acetaminophen for fever. Monitor neuro status. Continue Provigil 200 mg daily in attempt increased alertness. Pulm: Acute hypoxic and hypercarbic respiratory failure Lower lobe atelectasis Tolerating TP .24 hours starting 06/19 AM. Continue tp. Consult pulmonary for trach management s/p #8 [place] percutaneous trach 06/13. (Dr. Morataya/Dr. Dai) ICU vent bundle. Bronchodilator therapy every 6 hours and as needed CV: Hypertension Monitor HR and BP keep MAP>65mmHg RENAL/: BPH Monitor renal function, I/O's, electrolytes replacement per protocol. GI: Nausea/vomiting -resolved Anorexia Failure to thrive Gastroesophageal reflux disease Constipation Moderate protein calorie malnutrition TF -Glucerna 1.5 with goal rate 50ml/hr via PEG tube-resume CT abd pelvis no acute findings On Pepcid.for GI prophylaxis Colace twice a day for bowel regimen Dr. Henson from GI had replaced Mckeon at the PEG tube site with standard PEG tube, reconsult GI for recurrent vomiting Heme: Normocytic anemia Leukocytosis Monitor CBC ID: E. [place] UTI Pertinent cultures 06/04 - blood cultures 2 - no growth 06/04 - sputum - negative 06/04 - urine - E. [place] 06/07 - blood cultures 2 - negative 06/13 - blood cultures 2 - no growth Negative urine Legionella/pneumococcal antigens Cefepime 1 g every 8 hours per ID Endo: Hyperglycemia of critical illness On SSI, q6h, high scale. much improved glycemic control. FEN Hypophosphatemia On free water 250 cc every 6 hours. replace electrolytes per protocol GI prophylaxis-Pepcid q12h. DVT prophylaxis-continue Heparin SQ twice a day Critical Care: Level 2 PT/OT daily [facility] Dr. Medel to assume care in am 06/21/16 Reno Vega MD Jun 20, 2016 15:17
[2016-06-20] MEDS ORDERED: DEXTROSE 50% IN WATER 50 ML VIAL(D50) IV PUSH PRN (15:30)
[2016-06-20] MEDS ORDERED: GLUCAGON 1 MG/ML VIAL OTHER PRN (15:30)
[2016-06-20] MEDS: LOW DOSE INSULIN NOVOLOG SUPPLEMENTAL SCALE SQ SCH ×2 (18:00→22:44)
--- NOTE | 2016-06-20 18:16 | HHI.GIFU ---
Subjective Remarks Resting in bed. Trickle feeds started today. No vomiting. No bm. (Laury Landaverde) Objective Vitals I&O Vital Signs Date Time Temp Pulse Resp B/P Pulse Ox O2 Delivery O2 Flow Rate FiO2 06/20/16 16:00 90 06/20/16 16:00 99.0 90 22 121/64 95 06/20/16 14:00 78 06/20/16 12:00 98.5 76 16 115/60 96 06/20/16 12:00 80 06/20/16 10:08 98 T-piece 6.00 40 06/20/16 10:00 79 06/20/16 08:00 98.0 85 20 114/61 97 06/20/16 08:00 98 06/20/16 08:00 Mechanical Ventilator 06/20/16 06:00 86 06/20/16 04:00 98.5 86 20 117/55 95 06/20/16 04:00 T-Piece 06/20/16 04:00 88 06/20/16 04:00 30 06/20/16 02:00 85 06/20/16 00:00 T-Piece 06/20/16 00:00 30 06/20/16 00:00 98.5 88 20 115/64 95 06/20/16 00:00 88 06/19/16 20:00 99.0 80 22 111/60 96 06/19/16 20:00 T-Piece 06/19/16 20:00 30 06/19/16 20:00 80 06/19/16 19:45 99 6.00 40 I/O 06/19/16 06/19/16 06/19/16 06/20/16 06/20/16 06/20/16 07:00 15:00 23:00 07:00 15:00 23:00 Intake Total 242 ml 736 ml 88 ml 88 ml 56 ml Output Total 350 ml 450 ml 800 ml 400 ml Balance -108 ml 286 ml -712 ml 88 ml -344 ml IV Total 48 ml 236 ml 88 ml 88 ml 56 ml Tube Feeding 194 ml Other 500 ml Output Urine Total 350 ml 450 ml 800 ml 400 ml # Bowel Movements 0 0 0 Laboratory Date/Time Procedure Status Source Growth 06/16/16 17:25 Gram Stain - Final Complete Sputum Endotracheal 06/16/16 17:25 Sputum Culture - Final Complete [facility] Last Impressions Abdomen/Pelvis CT 06/19/16 0000 Signed Impressions: Service Date/Time: Monday, June 20, 2016 02:30 - CONCLUSION: 1. Moderate stool throughout the colon. No obstruction or inflammatory changes. No small bowel distention. 2. Subacute appearing left hip fracture. 3. PEG tube without evidence of an acute complication. Gary Griffin MD Chest X-Ray 06/17/16 0600 Signed Impressions: Service Date/Time: Friday, June 17, 2016 03:24 - CONCLUSION: No significant change has occurred. Todd Burton MD Abdomen X-Ray 06/17/16 0000 Signed Impressions: Service Date/Time: Friday, June 17, 2016 11:51 - CONCLUSION: No abnormal dilatation of the large or small bowel to indicate an ileus. There is a gastrostomy tube in the stomach which appears to be somewhat distended with air. José Miguel Celis MD Physical Exam HEENT: Normocephalic; atraumatic; no jaundice. CHEST: Resp. even/unlabored, T Bar to trach, scattered rhonchi CARDIAC: RRR ABDOMEN: Soft, mildly distended, bowel sounds are present in all four quadrants. PEG with trickle feeds EXTREMITIES: No clubbing, cyanosis, or edema. SKIN: Poor skin turgor. 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 (Laury Landaverde) Assessment and Plan Plan ASSESSMENT: - Abdominal distention, ileus, possible some degree of gastroparesis. Abdomen X -Ray (06/17/16)----> No abnormal dilatation of the large or small bowel to indicate an ileus. There is a gastrostomy tube in the stomach which appears to be somewhat distended with air. S/P Magnesium Citrate (06/18), Abdomen/Pelvis CT (06/19/16)------> 1. Moderate stool throughout the colon. No obstruction or inflammatory changes. No small bowel distention. 2. Subacute appearing left hip fracture. 3. PEG tube without evidence of an acute complication. Abdomen still mildly distended. Trickle feeds were started and he seems to be tolerating this so far, although no BM today or yesterday. Reglan, Colace. Will add miralax. PLAN: - Trickle feeds - Add Miralax 17gram per peg daily - Cont. Reglan - Monitor labs - Monitor stool output - Supportive care - Further recommendations to follow based on results of above - Pt seen and examined by Dr. Henson and myself and this note is written on his behalf (Laury Landaverde) Physician Comments Patient seen and examined Agree with above Into any with current supportive care Monitor labs (Stu Henson MD) Laury Landaverde Jun 20, 2016 18:16 Stu Henson MD Jun 20, 2016 21:35
[2016-06-20] MEDS: POLYETHYLENE GLYCOL 17 GM PKG PO SCH (18:30)
--- NOTE | 2016-06-20 19:05 | MB ---
cc: KEYONA LAL DATE OF CONSULTATION 06/20/[address] Dai. REASON FOR CONSULTATION Pulmonary management. HISTORY OF THE PRESENT ILLNESS Mr. Amin is an 80-year-old male from the [facility]. He was admitted with dehydration, UTI, respiratory failure. He was intubated. The patient could not be extubated and he had tracheostomy tube placed. The patient is nonverbal. Does not respond to any stimuli. He has trache tube placed and has PEG tube and he is being fed through the PEG tube. He tolerates feeding well. LABORATORY DATA His lab evaluation revealed WBC count 8.91, hemoglobin 9.5, hematocrit 28.5, MCV 83, platelet count 375. Sodium 130, potassium 4.2, chloride 105, CO2 26, BUN 8, creatinine 0.73. INR is 1.1. IMAGING His chest x-ray shows tracheostomy tube in place. Atelectatic changes at the bases. He has mild basilar airspace disease. CT scan of abdomen shows moderate stool throughout the colon. No obstruction or inflammatory process. PAST MEDICAL HISTORY Significant for: 1. Dementia. 2. Sepsis. 3. Cachexia. MEDICATIONS He is currently takin. Reglan 5 mg q.8h. 2. Heparin 5000 q.8h. 3. Free water. 4. Famotidine 20 mg twice a day. 5. Provigil 200 milligrams daily. 6. Electrolyte replacements. ALLERGIES NO KNOWN DRUG ALLERGIES. FAMILY HISTORY Not available. PHYSICAL EXAMINATION GENERAL: Elderly, cachectic male on trache collar. VITAL SIGNS: Blood pressure 121/64, heart rate 90, respirations 18, temperature 99. HEENT: Pupils reactive to light. NECK: Supple. JVP not raised. CHEST: He has a tracheostomy tube in place. Air entry equal bilaterally. No rhonchi. CARDIOVASCULAR: S1, S2 normal. ABDOMEN: He has a PEG tube in place. EXTREMITIES: He has contractures. IMPRESSION 1. Respiratory failure. 2. Status post tracheostomy tube. 3. Dementia. 4. Urinary tract infection. 5. Aphasia. 6. Dysphagia. PLAN We will continue the trache tube. Continue aerosol treatment. Trache suction. Tube feedings through the PEG tube. Monitor electrolytes. He is off antibiotics. We will monitor him. Further treatment will depend on the course in the hospital. MD FREDIS Cornelius /6:10 PM /6:35 PM [place]
[2016-06-20] MEDS: CHLORHEXIDINE GLUCONATE 2 % 1 PACK (2 CLOTHS) TOP SCH (20:30)
[2016-06-21] VITALS (15 sets, daily range): BP systolic 106–125; BP diastolic 53–71; PULSE 83–108; RESP 20–27; TEMP 99–100; O2SAT 88–98
[2016-06-21] MEDS: LOW DOSE INSULIN NOVOLOG SUPPLEMENTAL SCALE SQ SCH ×3 (04:54→18:03)
[2016-06-21] MEDS: METOCLOPRAMIDE HCL 10 MG/2 ML VIAL IV PUSH SCH ×3 (04:54→21:16)
[2016-06-21] MEDS: HEPARIN SODIUM - SQ 10,000 UNITS/ML VIAL SQ SCH ×3 (04:54→21:16)
[2016-06-21] MEDS: FREE WATER G-TUBE SCH ×4 (04:54→23:58)
--- NOTE | 2016-06-21 07:46 | HHI.GIFU ---
Subjective Remarks Resting in bed. Nonverbal, obtunded. Tolerating TF at GR, but still no BM. ( Laury Landaverde) Objective Vitals I&O Vital Signs Date Time Temp Pulse Resp B/P Pulse Ox O2 Delivery O2 Flow Rate FiO2 06/21/16 06:00 98 06/21/16 05:00 98 T-piece 5.00 40 06/21/16 04:00 30 06/21/16 04:00 100 06/21/16 04:00 T-Piece 06/21/16 04:00 99.0 100 24 123/71 98 06/21/16 02:00 102 06/21/16 00:00 108 06/21/16 00:00 T-Piece 06/21/16 00:00 30 06/21/16 00:00 99.9 108 20 125/65 96 06/20/16 22:00 103 06/20/16 20:06 99 T-piece 5.00 40 06/20/16 20:00 30 06/20/16 20:00 99.1 100 20 121/69 96 06/20/16 20:00 100 06/20/16 20:00 T-Piece 06/20/16 18:00 88 06/20/16 16:00 90 06/20/16 16:00 99.0 90 22 121/64 95 06/20/16 14:00 78 06/20/16 12:00 98.5 76 16 115/60 96 06/20/16 12:00 80 06/20/16 10:08 98 T-piece 6.00 40 06/20/16 10:00 79 06/20/16 08:00 98.0 85 20 114/61 97 06/20/16 08:00 98 06/20/16 08:00 Mechanical Ventilator I/O 06/20/16 06/20/16 06/20/16 06/21/16 06/21/16 06/21/16 07:00 15:00 23:00 07:00 15:00 23:00 Intake Total 88 ml 56 ml 154 ml 288 ml Output Total 400 ml 750 ml 650 ml Balance 88 ml -344 ml -596 ml -362 ml IV Total 88 ml 56 ml 44 ml 88 ml Tube Feeding 110 ml 200 ml Output Urine Total 400 ml 750 ml 650 ml # Bowel Movements 0 Laboratory Date/Time Procedure Status Source Growth 06/16/16 17:25 Gram Stain - Final Complete Sputum Endotracheal 06/16/16 17:25 Sputum Culture - Final Complete [facility] Last Impressions Abdomen/Pelvis CT 06/19/16 0000 Signed Impressions: Service Date/Time: Monday, June 20, 2016 02:30 - CONCLUSION: 1. Moderate stool throughout the colon. No obstruction or inflammatory changes. No small bowel distention. 2. Subacute appearing left hip fracture. 3. PEG tube without evidence of an acute complication. Gary Griffin MD Chest X-Ray 06/17/16 0600 Signed Impressions: Service Date/Time: Friday, June 17, 2016 03:24 - CONCLUSION: No significant change has occurred. Todd Burton MD Abdomen X-Ray 06/17/16 0000 Signed Impressions: Service Date/Time: Friday, June 17, 2016 11:51 - CONCLUSION: No abnormal dilatation of the large or small bowel to indicate an ileus. There is a gastrostomy tube in the stomach which appears to be somewhat distended with air. José Miguel Celis MD Physical Exam HEENT: Normocephalic; atraumatic; no jaundice. CHEST: Resp. even/unlabored, T Bar to trach, scattered rhonchi CARDIAC: RRR ABDOMEN: Soft, mildly distended, bowel sounds are present in all four quadrants. PEG with TF EXTREMITIES: No clubbing, cyanosis, or edema. SKIN: Poor skin turgor. 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 Abdomen X -Ray (06/17/16)----> No abnormal dilatation of the large or small bowel to indicate an ileus. There is a gastrostomy tube in the stomach which appears to be somewhat distended with air. S/P Magnesium Citrate (06/18), Abdomen/Pelvis CT (06/19/16)------> 1. Moderate stool throughout the colon. No obstruction or inflammatory changes. Tolerating TF at GR, although still no bm and remains mildly distended. Reglan, Colace, Miralax. Will start Lactulose. If no BM by 5pm, will give SSE x 2. D/W nurse. PLAN: - TF at GR - Cont. Miralax - Cont. Reglan - Cont. Colace - Lactulose 30mL po BID - Monitor labs - Monitor stool output - Supportive care - If no BM by 5pm, then SSE x 2 - Further recommendations to follow based on results of above - Pt seen and examined by Dr. Henson and myself and this note is written on his behalf (Laury Landaverde) Physician Comments Patient seen and examined Agree with above Continue with current supportive care Monitor labs If no response to medications will proceed with enemas (Stu Henson MD) Laury Landaverde Jun 21, 2016 07:45 Stu Henson MD Jun 21, 2016 10:41
[2016-06-21] MEDS: FAMOTIDINE 20 MG TAB NG SCH ×2 (08:29→21:16)
[2016-06-21] MEDS: LACTULOSE SYRUP 20 GM/30 ML CUP PO SCH ×2 (08:29→21:15)
[2016-06-21] MEDS: MODAFINIL 200 MG TAB PO SCH (08:29)
[2016-06-21] MEDS: POLYETHYLENE GLYCOL 17 GM PKG PO SCH (08:29)
[2016-06-21] MEDS: DOCUSATE SODIUM 100 MG/10 ML UDC PO SCH ×2 (08:29→21:15)
[2016-06-21] MEDS: SODIUM CHLORIDE 0.9% FLUSH 5 ML FLUSH IV FLUSH SCH ×2 (08:30→21:17)
--- NOTE | 2016-06-21 17:33 | HHI.PR ---
Subjective Remarks Follow-up for encephalopathy, UTI, pneumonia next No overnight events, no fever. Discussed with RN, no change in mental status. No residuals. Had a bowel movement today. Objective Vitals Vital Signs Date Time Temp Pulse Resp B/P Pulse Ox O2 Delivery O2 Flow Rate FiO2 06/21/16 16:00 96 06/21/16 16:00 100.0 96 26 106/58 94 06/21/16 16:00 T-Piece 35 06/21/16 14:00 87 06/21/16 12:00 91 06/21/16 12:00 T-Piece 35 06/21/16 12:00 99.7 91 27 108/59 88 06/21/16 10:00 83 06/21/16 08:45 95 T-piece 6.00 40 06/21/16 08:00 94 06/21/16 08:00 T-Piece 35 06/21/16 08:00 99.2 94 22 114/58 94 06/21/16 06:00 98 06/21/16 05:00 98 T-piece 5.00 40 06/21/16 04:00 30 06/21/16 04:00 100 06/21/16 04:00 T-Piece 06/21/16 04:00 99.0 100 24 123/71 98 06/21/16 02:00 102 06/21/16 00:00 108 06/21/16 00:00 T-Piece 06/21/16 00:00 30 06/21/16 00:00 99.9 108 20 125/65 96 06/20/16 22:00 103 06/20/16 20:06 99 T-piece 5.00 40 06/20/16 20:00 30 06/20/16 20:00 99.1 100 20 121/69 96 06/20/16 20:00 100 06/20/16 20:00 T-Piece 06/20/16 18:00 88 I/O 06/20/16 06/20/16 06/20/16 06/21/16 06/21/16 06/21/16 07:00 15:00 23:00 07:00 15:00 23:00 Intake Total 88 ml 56 ml 154 ml 288 ml 699 ml Output Total 400 ml 750 ml 650 ml 250 ml Balance 88 ml -344 ml -596 ml -362 ml 449 ml IV Total 88 ml 56 ml 44 ml 88 ml 50 ml Tube Feeding 110 ml 200 ml 399 ml Other 250 ml Output Urine Total 400 ml 750 ml 650 ml 250 ml # Bowel Movements 0 4 Result Diagram: 06/18/16 0609 06/18/16 0000 Objective Remarks GENERAL: 80 yo male patient, critically ill, trach+ SKIN: Warm and dry. No rash. Positive sacral decubitus ulcer NECK: Supple, trachea midline. No JVD. tracheostomy in place without bleeding. CARDIOVASCULAR: Regular rate and rhythm with S1, S2. No S4. Without murmurs, gallops, or rubs. RESPIRATORY: Poor respiratory effort, otherwise clear GASTROINTESTINAL: Abdomen soft, non-tender, distended. PEG tube is in place MUSCULOSKELETAL: With trace nonpitting peripheral upper and lower extremity edema. Extremities are warm. Neuro: Arousable, opens eyes but not following commands. Advanced dementia A/P Assessment and Plan Alzheimer's dementia Hypoactive delirium Depression/anxiety Acetaminophen for fever. Monitor neuro status. Continue Provigil 200 mg daily in attempt increased alertness. Acute hypoxic and hypercarbic respiratory failure Lower lobe atelectasis Tolerating TP .24 hours starting 1/30 AM. Continue tp. Consult pulmonary for trach management s/p #8 Shiley percutaneous trach 06/13. (Dr. Morataya/Dr. Dai) ICU vent bundle. Bronchodilator therapy every 6 hours and as needed, continue supportive management. Hypertension Monitor HR and BP keep MAP>65mmHg Anorexia Failure to thrive Gastroesophageal reflux disease Constipation Moderate protein calorie malnutrition TF -Glucerna 1.5 with goal rate 50ml/hr via PEG tube-resume CT abd pelvis no acute findings On Pepcid.for GI prophylaxis Colace twice a day for bowel regimen Dr. Henson from GI had replaced Mckeon at the PEG tube site with standard PEG tube, GI following for constipation, had a good bowel movement today after bowel regimen. Monitor. Normocytic anemia Leukocytosis Monitor CBC E. [place] UTI Pertinent cultures 06/04 - blood cultures 2 - no growth 06/04 - sputum - negative 06/04 - urine - E. [place] 06/07 - blood cultures 2 - negative 06/13 - blood cultures 2 - no growth Negative urine Legionella/pneumococcal antigens Cefepime stopped today. Infectious disease. Hyperglycemia of critical illness On SSI, q6h, high scale. much improved glycemic control. Hypophosphatemia On free water 250 cc every 6 hours. replace electrolytes per protocol Decreased urine output-start IVF, recheck BMP tomorrow. Monitor urine output. Could be from poor oral intake. GI prophylaxis-Pepcid q12h. DVT prophylaxis-continue Heparin SQ twice a day Critical Care: Level 2 PT/OT daily [facility] Dr. Medel to assume care in am 06/21/16 Otoniel Shah MD Jun 21, 2016 17:33
[2016-06-21] MEDS: SODIUM CHLOR 0.9% 1000 ML INJ 1,000 ML IV SCH ×2 (18:03→21:17)
--- NOTE | 2016-06-21 20:35 | HHI.PR ---
Subjective Remarks 80 YOmale with Dementia, RF,Trach Pt aphasic Does't respond no fever Tolerates TF Objective Vital Signs Vital Signs Date Time Temp Pulse Resp B/P Pulse Ox O2 Delivery O2 Flow Rate FiO2 06/21/16 18:00 91 06/21/16 16:00 96 06/21/16 16:00 100.0 96 26 106/58 94 06/21/16 16:00 T-Piece 35 06/21/16 14:00 87 06/21/16 12:00 91 06/21/16 12:00 T-Piece 35 06/21/16 12:00 99.7 91 27 108/59 88 06/21/16 10:00 83 06/21/16 08:45 95 T-piece 6.00 40 06/21/16 08:00 94 06/21/16 08:00 T-Piece 35 06/21/16 08:00 99.2 94 22 114/58 94 06/21/16 06:00 98 06/21/16 05:00 98 T-piece 5.00 40 06/21/16 04:00 30 06/21/16 04:00 100 06/21/16 04:00 T-Piece 06/21/16 04:00 99.0 100 24 123/71 98 06/21/16 02:00 102 06/21/16 00:00 108 06/21/16 00:00 T-Piece 06/21/16 00:00 30 06/21/16 00:00 99.9 108 20 125/65 96 06/20/16 22:00 103 I/O 06/20/16 06/20/16 06/20/16 06/21/16 06/21/16 06/21/16 07:00 15:00 23:00 07:00 15:00 23:00 Intake Total 88 ml 56 ml 154 ml 288 ml 699 ml Output Total 400 ml 750 ml 650 ml 250 ml Balance 88 ml -344 ml -596 ml -362 ml 449 ml IV Total 88 ml 56 ml 44 ml 88 ml 50 ml Tube Feeding 110 ml 200 ml 399 ml Other 250 ml Output Urine Total 400 ml 750 ml 650 ml 250 ml # Bowel Movements 0 4 Result Diagram: 06/18/16 0609 06/18/16 0000 Objective Remarks GENERAL: Elderly frail male, mild sob SKIN: Warm and dry. HEAD: Normocephalic. EYES: No scleral icterus. No injection or drainage. NECK: Supple, trachea midline. No JVD or lymphadenopathy. CARDIOVASCULAR: Regular rate and rhythm without murmurs, gallops, or rubs. RESPIRATORY: Breath sounds equal bilaterally. No accessory muscle use. GASTROINTESTINAL: Abdomen soft, non-tender, nondistended. MUSCULOSKELETAL: No cyanosis, or edema. BACK: Nontender without obvious deformity. No CVA tenderness. A/P Assessment and Plan RF,s/p Trach Aphasia Dysphagia Dementia PLAN: Trach care Aerosol nebs TF Rectal tube if needed Silverio Reyes MD Jun 21, 2016 20:35
[2016-06-21] MEDS: CHLORHEXIDINE GLUCONATE 2 % 1 PACK (2 CLOTHS) TOP SCH (21:17)
[2016-06-22] VITALS (14 sets, daily range): BP systolic 86–119; BP diastolic 51–60; PULSE 68–102; RESP 12–34; TEMP 98.7–99.4; O2SAT 95–99
[2016-06-22] MEDS: LOW DOSE INSULIN NOVOLOG SUPPLEMENTAL SCALE SQ SCH ×4 (00:11→17:08)
[2016-06-22] MEDS: FREE WATER G-TUBE SCH ×3 (05:11→17:08)
[2016-06-22] MEDS: METOCLOPRAMIDE HCL 10 MG/2 ML VIAL IV PUSH SCH ×3 (05:11→20:16)
[2016-06-22] MEDS: HEPARIN SODIUM - SQ 10,000 UNITS/ML VIAL SQ SCH ×3 (05:11→20:16)
[2016-06-22 06:29] LABS: BICARBONATE 26.1 MEQ/L (21.0-32.0); POTASSIUM 3.8 MEQ/L (3.5-5.1)
[2016-06-22] MEDS: DOCUSATE SODIUM 100 MG/10 ML UDC PO SCH ×2 (10:02→20:16)
[2016-06-22] MEDS: LACTULOSE SYRUP 20 GM/30 ML CUP PO SCH (10:02)
[2016-06-22] MEDS: MODAFINIL 200 MG TAB PO SCH (10:02)
[2016-06-22] MEDS: FAMOTIDINE 20 MG TAB NG SCH ×2 (10:02→20:16)
[2016-06-22] MEDS: POLYETHYLENE GLYCOL 17 GM PKG PO SCH (10:02)
[2016-06-22] MEDS: SODIUM CHLORIDE 0.9% FLUSH 5 ML FLUSH IV FLUSH SCH ×2 (10:03→20:16)
[2016-06-22] MEDS: SODIUM CHLOR 0.9% 1000 ML INJ 1,000 ML IV SCH (13:25)
--- NOTE | 2016-06-22 13:34 | HHI.GIFU ---
Subjective Remarks Resting in bed. No n/v. Started having diarrhea yesterday, now with flexiseal. Tolerating TF (Laury Landaverde) Objective Vitals I&O Vital Signs Date Time Temp Pulse Resp B/P Pulse Ox O2 Delivery O2 Flow Rate FiO2 06/22/16 12:00 99 T-Piece 35 06/22/16 12:00 75 06/22/16 12:00 99.1 73 24 112/55 99 06/22/16 10:00 83 06/22/16 08:00 98.7 85 14 86/51 95 06/22/16 08:00 85 06/22/16 08:00 95 T-Piece 35 06/22/16 07:51 95 T-piece 35 06/22/16 06:00 95 06/22/16 04:00 T-Piece 28 06/22/16 04:00 97 06/22/16 04:00 99.4 97 12 103/51 98 06/22/16 02:00 102 06/22/16 00:00 102 06/22/16 00:00 99.0 102 24 114/54 98 06/22/16 00:00 T-Piece 06/21/16 23:11 98 T-piece 6.00 35 06/21/16 22:00 104 06/21/16 20:00 T-Piece 06/21/16 20:00 100 06/21/16 20:00 99.1 100 22 108/53 98 06/21/16 18:00 91 06/21/16 16:00 96 06/21/16 16:00 100.0 96 26 106/58 94 06/21/16 16:00 T-Piece 35 06/21/16 14:00 87 I/O 06/21/16 06/21/16 06/21/16 06/22/16 06/22/16 06/22/16 07:00 15:00 23:00 07:00 15:00 23:00 Intake Total 288 ml 1083 ml 1260 ml Output Total 650 ml 600 ml 500 ml Balance -362 ml 483 ml 760 ml Intake Oral 0 ml IV Total 88 ml 54 ml 800 ml Tube Feeding 200 ml 779 ml 400 ml Other 250 ml 60 ml Output Urine Total 650 ml 600 ml 450 ml Stool Total 50 ml # Bowel Movements 4 Laboratory Laboratory Tests Test 06/22/16 05:23 Sodium Level 142 Potassium Level 3.8 Chloride Level 108 Carbon Dioxide Level 26.1 Anion Gap 8 Blood Urea Nitrogen 10 Creatinine 0.72 Estimat Glomerular Filtration 105 Rate Random Glucose 189 Calcium Level 8.5 Imaging Last Impressions Abdomen/Pelvis CT 06/19/16 0000 Signed Impressions: Service Date/Time: Monday, June 20, 2016 02:30 - CONCLUSION: 1. Moderate stool throughout the colon. No obstruction or inflammatory changes. No small bowel distention. 2. Subacute appearing left hip fracture. 3. PEG tube without evidence of an acute complication. Gary Griffin MD Chest X-Ray 06/17/16 0600 Signed Impressions: Service Date/Time: Friday, June 17, 2016 03:24 - CONCLUSION: No significant change has occurred. Todd Burton MD Abdomen X-Ray 06/17/16 0000 Signed Impressions: Service Date/Time: Friday, June 17, 2016 11:51 - CONCLUSION: No abnormal dilatation of the large or small bowel to indicate an ileus. There is a gastrostomy tube in the stomach which appears to be somewhat distended with air. José Miguel Celis MD Physical Exam HEENT: Normocephalic; atraumatic; no jaundice. CHEST: Resp. even/unlabored, T Bar to trach, scattered rhonchi CARDIAC: RRR ABDOMEN: Soft, mildly distended, bowel sounds are present in all four quadrants. PEG with TF EXTREMITIES: No clubbing, cyanosis, or edema. SKIN: Poor skin turgor. 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 Abdomen X -Ray (06/17/16)----> No abnormal dilatation of the large or small bowel to indicate an ileus. There is a gastrostomy tube in the stomach which appears to be somewhat distended with air. S/P Magnesium Citrate (06/18), Abdomen/Pelvis CT (06/19/16)------> 1. Moderate stool throughout the colon. No obstruction or inflammatory changes. Tolerating TF at GR. On Reglan, Colace, Miralax. Lactulose, but started having loose stool and now iwth diarrhea. Abdomen soft, nondistended. Will stop Lactulose. PLAN: - TF at GR - Cont. Miralax - Cont. Reglan - Cont. Colace - D/C Lactulose - GI will sign off, please reconsult as needed - Pt seen and examined by Dr. Henson and myself and this note is written on his behalf (Laury Landaverde) Physician Comments Patient was seen and examined Agree with above Continue current supportive care Monitor labs We will sign off (Stu Henson MD) Laury Landaverde Jun 22, 2016 13:34 Stu Henson MD Jun 22, 2016 18:22
--- NOTE | 2016-06-22 15:07 | HHI.PR ---
Subjective Remarks Follow-up for encephalopathy next No overnight events, patient is a poor historian. Discussed with RN, had diarrhea. Objective Vitals Vital Signs Date Time Temp Pulse Resp B/P Pulse Ox O2 Delivery O2 Flow Rate FiO2 06/22/16 14:00 72 06/22/16 12:00 99 T-Piece 35 06/22/16 12:00 75 06/22/16 12:00 99.1 73 24 112/55 99 06/22/16 10:00 83 06/22/16 08:00 98.7 85 14 86/51 95 06/22/16 08:00 85 06/22/16 08:00 95 T-Piece 35 06/22/16 07:51 95 T-piece 35 06/22/16 06:00 95 06/22/16 04:00 T-Piece 28 06/22/16 04:00 97 06/22/16 04:00 99.4 97 12 103/51 98 06/22/16 02:00 102 06/22/16 00:00 102 06/22/16 00:00 99.0 102 24 114/54 98 06/22/16 00:00 T-Piece 06/21/16 23:11 98 T-piece 6.00 35 06/21/16 22:00 104 06/21/16 20:00 T-Piece 06/21/16 20:00 100 06/21/16 20:00 99.1 100 22 108/53 98 06/21/16 18:00 91 06/21/16 16:00 96 06/21/16 16:00 100.0 96 26 106/58 94 06/21/16 16:00 T-Piece 35 I/O 06/21/16 06/21/16 06/21/16 06/22/16 06/22/16 06/22/16 07:00 15:00 23:00 07:00 15:00 23:00 Intake Total 288 ml 1083 ml 1260 ml Output Total 650 ml 600 ml 500 ml Balance -362 ml 483 ml 760 ml Intake Oral 0 ml IV Total 88 ml 54 ml 800 ml Tube Feeding 200 ml 779 ml 400 ml Other 250 ml 60 ml Output Urine Total 650 ml 600 ml 450 ml Stool Total 50 ml # Bowel Movements 4 Result Diagram: 06/18/16 0609 06/22/16 0523 Objective Remarks GENERAL: 80 yo male patient, critically ill, trach+ SKIN: Warm and dry. No rash. Positive sacral decubitus ulcer NECK: Supple, trachea midline. No JVD. tracheostomy in place without bleeding. CARDIOVASCULAR: Regular rate and rhythm with S1, S2. No S4. Without murmurs, gallops, or rubs. RESPIRATORY: Poor respiratory effort, otherwise clear GASTROINTESTINAL: Abdomen soft, non-tender, distended. PEG tube is in place MUSCULOSKELETAL: With trace nonpitting peripheral upper and lower extremity edema. Extremities are warm. Neuro: Arousable, opens eyes but not following commands. Advanced dementia, noninteractive. A/P Assessment and Plan Alzheimer's dementia Hypoactive delirium Depression/anxiety Acetaminophen for fever. Monitor neuro status. Continue Provigil 200 mg daily in attempt increased alertness. Acute hypoxic and hypercarbic respiratory failure Lower lobe atelectasis Tolerating TP .24 hours starting 1/30 AM. Continue tp. Pulmonary following. s/p #8 Shiley percutaneous trach 06/13. (Dr. Morataya/Dr. Dai) ICU vent bundle. Bronchodilator therapy every 6 hours and as needed, continue supportive management. Hypertension Monitor HR and BP keep MAP>65mmHg Anorexia Failure to thrive Gastroesophageal reflux disease Constipation Moderate protein calorie malnutrition TF -Glucerna 1.5 with goal rate 50ml/hr via PEG tube-resume CT abd pelvis no acute findings On Pepcid.for GI prophylaxis Stop Colace. Dr. Henson from GI had replaced Mckeon at the PEG tube site with standard PEG tube, GI following for constipation, now moving his bowels. Normocytic anemia Leukocytosis Monitor CBC E. Cloacae UTI Pertinent cultures 06/04 - blood cultures 2 - no growth 06/04 - sputum - negative 06/04 - urine - E. Cloacae 06/07 - blood cultures 2 - negative 06/13 - blood cultures 2 - no growth Negative urine Legionella/pneumococcal antigens Cefepime stopped 06/21/16 , Infectious disease ff Hyperglycemia of critical illness On SSI, q6h, high scale. much improved glycemic control. Hypophosphatemia On free water 250 cc every 6 hours. replace electrolytes per protocol Decreased urine output- stop IVF, recheck BMP tomorrow. Monitor urine output. Could be from poor oral intake. GI prophylaxis-Pepcid q12h. DVT prophylaxis-continue Heparin SQ twice a day Otoniel Shah MD Jun 22, 2016 15:07
--- NOTE | 2016-06-22 16:33 | HHI.PR ---
Subjective Remarks 80 YOmale with Dementia, RF,Trach Pt aphasic Does't respond no fever Tolerates TF On Trach collar Objective Vital Signs Vital Signs Date Time Temp Pulse Resp B/P Pulse Ox O2 Delivery O2 Flow Rate FiO2 06/22/16 14:00 72 06/22/16 12:00 99 T-Piece 35 06/22/16 12:00 75 06/22/16 12:00 99.1 73 24 112/55 99 06/22/16 10:00 83 06/22/16 08:00 98.7 85 14 86/51 95 06/22/16 08:00 85 06/22/16 08:00 95 T-Piece 35 06/22/16 07:51 95 T-piece 35 06/22/16 06:00 95 06/22/16 04:00 T-Piece 28 06/22/16 04:00 97 06/22/16 04:00 99.4 97 12 103/51 98 06/22/16 02:00 102 06/22/16 00:00 102 06/22/16 00:00 99.0 102 24 114/54 98 06/22/16 00:00 T-Piece 06/21/16 23:11 98 T-piece 6.00 35 06/21/16 22:00 104 06/21/16 20:00 T-Piece 06/21/16 20:00 100 06/21/16 20:00 99.1 100 22 108/53 98 06/21/16 18:00 91 I/O 06/21/16 06/21/16 06/21/16 06/22/16 06/22/16 06/22/16 07:00 15:00 23:00 07:00 15:00 23:00 Intake Total 288 ml 1083 ml 1260 ml 1651 ml Output Total 650 ml 600 ml 500 ml 700 ml Balance -362 ml 483 ml 760 ml 951 ml Intake Oral 0 ml 0 ml IV Total 88 ml 54 ml 800 ml 962 ml Tube Feeding 200 ml 779 ml 400 ml 379 ml Tube Irrigant 60 ml Other 250 ml 60 ml 250 ml Output Urine Total 650 ml 600 ml 450 ml 300 ml Stool Total 50 ml 400 ml # Bowel Movements 4 Result Diagram: 06/18/16 0609 06/22/16 0523 Objective Remarks GENERAL: Elderly frail male, mild sob SKIN: Warm and dry. HEAD: Normocephalic. EYES: No scleral icterus. No injection or drainage. NECK: Supple, trachea midline. No JVD or lymphadenopathy. CARDIOVASCULAR: Regular rate and rhythm without murmurs, gallops, or rubs. RESPIRATORY: Breath sounds equal bilaterally. No accessory muscle use. GASTROINTESTINAL: Abdomen soft, non-tender, nondistended. MUSCULOSKELETAL: No cyanosis, or edema. BACK: Nontender without obvious deformity. No CVA tenderness. A/P Assessment and Plan RF,s/p Trach Aphasia Dysphagia Dementia PLAN: Trach care Aerosol nebs TF Stable to tr to floor near Nursing station. Silverio Reyes MD Jun 22, 2016 16:33
[2016-06-23] VITALS (13 sets, daily range): BP systolic 88–145; BP diastolic 50–63; PULSE 72–91; RESP 22–35; TEMP 98–99.7; O2SAT 94–100
[2016-06-23] MEDS: CHLORHEXIDINE GLUCONATE 2 % 1 PACK (2 CLOTHS) TOP SCH (04:00)
[2016-06-23] MEDS: MORPHINE SULFATE 4 MG/ML INJ IV PRN (04:14)
[2016-06-23] MEDS: FREE WATER G-TUBE SCH ×4 (05:16→18:00)
[2016-06-23] MEDS: HEPARIN SODIUM - SQ 10,000 UNITS/ML VIAL SQ SCH ×3 (05:18→21:02)
[2016-06-23] MEDS: METOCLOPRAMIDE HCL 10 MG/2 ML VIAL IV PUSH SCH ×2 (05:18→13:08)
[2016-06-23] MEDS: LOW DOSE INSULIN NOVOLOG SUPPLEMENTAL SCALE SQ SCH ×4 (05:29→18:21)
[2016-06-23 05:31] LABS: BICARBONATE 26.4 MEQ/L (21.0-32.0); POTASSIUM 3.9 MEQ/L (3.5-5.1)
[2016-06-23] MEDS: DOCUSATE SODIUM 100 MG/10 ML UDC PO SCH (08:40)
[2016-06-23] MEDS: MODAFINIL 200 MG TAB PO SCH (08:40)
[2016-06-23] MEDS: SODIUM CHLORIDE 0.9% FLUSH 5 ML FLUSH IV FLUSH SCH ×2 (08:40→21:02)
[2016-06-23] MEDS: FAMOTIDINE 20 MG TAB NG SCH ×2 (08:40→21:02)
[2016-06-23] MEDS: POVIDONE IODINE 10% SOLN 480 ML BTL TOPICAL SCH ×2 (13:00→21:00)
--- NOTE | 2016-06-23 14:56 | HHI.PR ---
Subjective Remarks No overnight events, poor historian. Discussed with RN. Still with diarrhea. No desaturation, no further residuals. Objective Vitals Vital Signs Date Time Temp Pulse Resp B/P Pulse Ox O2 Delivery O2 Flow Rate FiO2 06/23/16 12:00 74 06/23/16 12:00 99 T-Piece 35 06/23/16 12:00 98.6 74 27 106/51 99 06/23/16 10:00 73 06/23/16 08:00 98.0 76 26 122/58 96 06/23/16 08:00 76 06/23/16 08:00 96 T-Piece 35 06/23/16 07:50 96 T-piece 35 06/23/16 06:00 77 06/23/16 04:00 94 T-Piece 35 06/23/16 04:00 87 06/23/16 04:00 98.0 87 35 105/59 94 06/23/16 02:00 91 06/23/16 00:00 96 T-Piece 35 06/23/16 00:00 98.9 91 22 88/50 96 06/23/16 00:00 91 06/22/16 22:00 94 06/22/16 20:00 98.8 71 34 107/60 96 06/22/16 20:00 98 T-Piece 35 06/22/16 20:00 71 06/22/16 19:56 97 T-piece 5.00 35 06/22/16 18:00 68 06/22/16 16:00 98 T-Piece 35 06/22/16 16:00 70 06/22/16 16:00 98.7 70 20 119/59 98 I/O 06/22/16 06/22/16 06/22/16 06/23/16 06/23/16 06/23/16 07:00 15:00 23:00 07:00 15:00 23:00 Intake Total 1260 ml 1651 ml 550 ml 555 ml Output Total 500 ml 700 ml 400 ml 350 ml Balance 760 ml 951 ml 150 ml 205 ml Intake Oral 0 ml 0 ml 0 ml 0 ml IV Total 800 ml 962 ml 0 ml 0 ml Tube Feeding 400 ml 379 ml 300 ml 295 ml Tube Irrigant 60 ml Other 60 ml 250 ml 250 ml 260 ml Output Urine Total 450 ml 300 ml 250 ml 300 ml Stool Total 50 ml 400 ml 150 ml 50 ml Result Diagram: 2/3/17 0442 Objective Remarks GENERAL: 80 yo male patient, critically ill, trach+ SKIN: Warm and dry. No rash. Positive sacral decubitus ulcer NECK: Supple, trachea midline. No JVD. tracheostomy in place without bleeding. CARDIOVASCULAR: Regular rate and rhythm with S1, S2. No S4. Without murmurs, gallops, or rubs. RESPIRATORY: Poor respiratory effort, otherwise clear GASTROINTESTINAL: Abdomen soft, non-tender, distended. PEG tube is in place MUSCULOSKELETAL: With trace nonpitting peripheral upper and lower extremity edema. Extremities are warm. Neuro: Arousable, opens eyes but not following commands. Advanced dementia, noninteractive. A/P Assessment and Plan Alzheimer's dementia Hypoactive delirium Depression/anxiety Acetaminophen for fever. Continue Provigil 200 mg daily in attempt increased alertness. Acute hypoxic and hypercarbic respiratory failure Lower lobe atelectasis Tolerating TP .24 hours starting 1/30 AM. Continue tp. Pulmonary following. s/p #8 Shiley percutaneous trach 06/13. (Dr. [place]/Dr. Dai) ICU vent bundle. Bronchodilator therapy every 6 hours and as needed, continue supportive management. Hypertension Monitor HR and BP keep MAP>65mmHg Anorexia Failure to thrive Gastroesophageal reflux disease Constipation Moderate protein calorie malnutrition TF -Glucerna 1.5 with goal rate 50ml/hr via PEG tube-resume CT abd pelvis no acute findings On Pepcid.for GI prophylaxis Stop all laxatives. Dr. Henson from GI had replaced Mckeon at the PEG tube site with standard PEG tube, GI following for constipation, now moving his bowels. Normocytic anemia Leukocytosis Monitor CBC E. Cloacae UTI Pertinent cultures 06/04 - blood cultures 2 - no growth 06/04 - sputum - negative 06/04 - urine - E. Cloacae 06/07 - blood cultures 2 - negative 06/13 - blood cultures 2 - no growth Negative urine Legionella/pneumococcal antigens Cefepime stopped 06/21/16 , Infectious disease ff Hyperglycemia of critical illness On SSI, q6h, high scale. much improved glycemic control. Hypophosphatemia On free water 250 cc every 6 hours. replace electrolytes per protocol Decreased urine output- stop IVF, recheck BMP tomorrow. Monitor urine output. Could be from poor oral intake. GI prophylaxis-Pepcid q12h. DVT prophylaxis-continue Heparin SQ twice a day Transfer to [facility] Otoniel Shah MD Jun 23, 2016 14:56
[2016-06-23] MEDS ORDERED: POLYETHYLENE GLYCOL 17 GM PKG PO PRN (15:00)
[2016-06-23] MEDS ORDERED: METOCLOPRAMIDE HCL 10 MG/2 ML VIAL IV PUSH PRN (15:00)
--- NOTE | 2016-06-23 20:07 | HHI.PR ---
Subjective Remarks 80 YOmale with Dementia, RF,Trach Pt aphasic no fever Tolerates TF On Trach collar No new complaint Objective Vital Signs Vital Signs Date Time Temp Pulse Resp B/P Pulse Ox O2 Delivery O2 Flow Rate FiO2 06/23/16 18:00 72 06/23/16 16:00 100 T-Piece 35 06/23/16 16:00 99.7 77 27 145/63 100 06/23/16 16:00 77 06/23/16 14:00 73 06/23/16 12:00 74 06/23/16 12:00 99 T-Piece 35 06/23/16 12:00 98.6 74 27 106/51 99 06/23/16 10:00 73 06/23/16 08:00 98.0 76 26 122/58 96 06/23/16 08:00 76 06/23/16 08:00 96 T-Piece 35 06/23/16 07:50 96 T-piece 35 06/23/16 06:00 77 06/23/16 04:00 94 T-Piece 35 06/23/16 04:00 87 06/23/16 04:00 98.0 87 35 105/59 94 06/23/16 02:00 91 06/23/16 00:00 96 T-Piece 35 06/23/16 00:00 98.9 91 22 88/50 96 06/23/16 00:00 91 06/22/16 22:00 94 I/O 06/22/16 06/22/16 06/22/16 06/23/16 06/23/16 06/23/16 07:00 15:00 23:00 07:00 15:00 23:00 Intake Total 1260 ml 1651 ml 550 ml 555 ml 596 ml Output Total 500 ml 700 ml 400 ml 350 ml 250 ml Balance 760 ml 951 ml 150 ml 205 ml 346 ml Intake Oral 0 ml 0 ml 0 ml 0 ml IV Total 800 ml 962 ml 0 ml 0 ml Tube Feeding 400 ml 379 ml 300 ml 295 ml 346 ml Tube Irrigant 60 ml Other 60 ml 250 ml 250 ml 260 ml 250 ml Output Urine Total 450 ml 300 ml 250 ml 300 ml 250 ml Stool Total 50 ml 400 ml 150 ml 50 ml 0 ml Result Diagram: 06/23/16 0442 Objective Remarks GENERAL: Elderly frail male, mild sob SKIN: Warm and dry. HEAD: Normocephalic. EYES: No scleral icterus. No injection or drainage. NECK: Supple, trachea midline. No JVD or lymphadenopathy. CARDIOVASCULAR: Regular rate and rhythm without murmurs, gallops, or rubs. RESPIRATORY: Breath sounds equal bilaterally. No accessory muscle use. GASTROINTESTINAL: Abdomen soft, non-tender, nondistended. MUSCULOSKELETAL: No cyanosis, or edema. BACK: Nontender without obvious deformity. No CVA tenderness. A/P Assessment and Plan RF,s/p Trach Aphasia Dysphagia Dementia PLAN: Trach care Aerosol nebs TF Stable to tr to floor near Nursing station. Silverio Reyes MD Jun 23, 2016 20:06
[2016-06-24] VITALS (8 sets, daily range): BP systolic 111–149; BP diastolic 54–88; PULSE 75–86; RESP 24–35; TEMP 98.6–100; O2SAT 92–99
[2016-06-24] MEDS: CHLORHEXIDINE GLUCONATE 2 % 1 PACK (2 CLOTHS) TOP SCH (04:00)
[2016-06-24] MEDS: HEPARIN SODIUM - SQ 10,000 UNITS/ML VIAL SQ SCH ×3 (04:52→21:20)
[2016-06-24] MEDS: FREE WATER G-TUBE SCH ×4 (04:53→18:00)
[2016-06-24] MEDS: MORPHINE SULFATE 4 MG/ML INJ IV PRN (05:12)
[2016-06-24] MEDS: LOW DOSE INSULIN NOVOLOG SUPPLEMENTAL SCALE SQ SCH ×5 (05:18→21:19)
[2016-06-24] MEDS: SODIUM CHLORIDE 0.9% FLUSH 5 ML FLUSH IV FLUSH PRN (07:51)
[2016-06-24] MEDS: FAMOTIDINE 20 MG TAB NG SCH ×2 (07:51→21:20)
[2016-06-24] MEDS: MODAFINIL 200 MG TAB PO SCH (07:51)
[2016-06-24] MEDS: SODIUM CHLORIDE 0.9% FLUSH 5 ML FLUSH IV FLUSH SCH ×2 (07:51→21:20)
[2016-06-24] MEDS: POVIDONE IODINE 10% SOLN 480 ML BTL TOPICAL SCH ×2 (07:51→21:00)
--- NOTE | 2016-06-24 13:51 | HHI.PR ---
Subjective Remarks Follow-up encephalopathy Still with diarrhea, no overnight events. No residuals. No fever. Objective Vitals Vital Signs Date Time Temp Pulse Resp B/P Pulse Ox O2 Delivery O2 Flow Rate FiO2 06/24/16 12:00 99.8 75 30 111/54 97 06/24/16 12:00 97 T-Piece 35 06/24/16 12:00 75 06/24/16 09:01 98 T-piece 6.00 35 06/24/16 08:00 93 T-Piece 35 06/24/16 08:00 100.0 83 24 149/88 93 06/24/16 08:00 83 06/24/16 04:00 77 06/24/16 04:00 98.6 77 35 112/59 96 06/24/16 04:00 96 T-Piece 35 06/24/16 00:00 98.8 76 33 139/65 96 06/24/16 00:00 76 06/24/16 00:00 96 T-Piece 35 06/23/16 20:00 72 06/23/16 20:00 99.0 72 34 124/59 99 06/23/16 20:00 99 T-Piece 35 06/23/16 19:05 100 T-piece 6.00 35 06/23/16 18:00 72 06/23/16 16:00 100 T-Piece 35 06/23/16 16:00 99.7 77 27 145/63 100 06/23/16 16:00 77 06/23/16 14:00 73 I/O 06/23/16 06/23/16 06/23/16 06/24/16 06/24/16 06/24/16 07:00 15:00 23:00 07:00 15:00 23:00 Intake Total 555 ml 596 ml 660 ml 550 ml Output Total 350 ml 250 ml 500 ml 400 ml Balance 205 ml 346 ml 160 ml 150 ml Intake Oral 0 ml 0 ml 0 ml IV Total 0 ml Tube Feeding 295 ml 346 ml 400 ml 300 ml Other 260 ml 250 ml 260 ml 250 ml Output Urine Total 300 ml 250 ml 450 ml 375 ml Stool Total 50 ml 0 ml 50 ml 25 ml Result Diagram: 06/23/16 0442 Objective Remarks GENERAL: 80 yo male patient, critically ill, trach+ SKIN: Warm and dry. No rash. Positive sacral decubitus ulcer NECK: Supple, trachea midline. No JVD. tracheostomy in place without bleeding. CARDIOVASCULAR: Regular rate and rhythm with S1, S2. No S4. Without murmurs, gallops, or rubs. RESPIRATORY: Poor respiratory effort, otherwise clear GASTROINTESTINAL: Abdomen soft, non-tender, distended. PEG tube is in place, still with loose stools per rectal tube. MUSCULOSKELETAL: With trace nonpitting peripheral upper and lower extremity edema. Neuro: Arousable, opens eyes but not following commands. Advanced dementia, noninteractive. A/P Assessment and Plan Alzheimer's dementia, Hypoactive delirium, Depression/anxiety -increase Provigil to 400 mg daily in attempt increased alertness. Acute hypoxic and hypercarbic respiratory failure, Lower lobe atelectasis - on TP, pulmonary following. Continue bronchodilators as needed. Chest x-ray stable. Hypertension-fairly controlled. Anorexia, Failure to thrive, Gastroesophageal reflux disease, Moderate protein calorie malnutrition -Continue TF -Glucerna 1.5 with goal rate 50ml/hr via PEG tube-resume, CT scan of the abdomen unremarkable, continue Pepcid. Diarrhea-likely from laxatives from a few days ago, had constipation was given a lot of laxatives. At this point, laxatives are all stopped. Monitor. BMP stable. E. Cloacae UTI - -blood cultures negative. Finished cefepime. No leukocytosis. Hyperglycemia of critical illness - On SSI, stable. DVT prophylaxis-continue Heparin SQ twice a day Transfer to [facility], bed pending Discharge Planning Patient pending long-term placement Otoniel Shah MD Jun 24, 2016 13:51
[2016-06-24] MEDS ORDERED: MODAFINIL 200 MG TAB PO ONE (14:00)
--- NOTE | 2016-06-24 17:42 | HHI.PR ---
Subjective Remarks 80 YOmale with Dementia, RF,Trach Pt aphasic Tolerates TF On Trach collar No new complaint Objective Vital Signs Vital Signs Date Time Temp Pulse Resp B/P Pulse Ox O2 Delivery O2 Flow Rate FiO2 06/24/16 16:00 99 T-Piece 35 06/24/16 16:00 99.3 76 30 127/58 99 06/24/16 16:00 76 06/24/16 12:00 99.8 75 30 111/54 97 06/24/16 12:00 97 T-Piece 35 06/24/16 12:00 75 06/24/16 09:01 98 T-piece 6.00 35 06/24/16 08:00 93 T-Piece 35 06/24/16 08:00 100.0 83 24 149/88 93 06/24/16 08:00 83 06/24/16 04:00 77 06/24/16 04:00 98.6 77 35 112/59 96 06/24/16 04:00 96 T-Piece 35 06/24/16 00:00 98.8 76 33 139/65 96 06/24/16 00:00 76 06/24/16 00:00 96 T-Piece 35 06/23/16 20:00 72 06/23/16 20:00 99.0 72 34 124/59 99 06/23/16 20:00 99 T-Piece 35 06/23/16 19:05 100 T-piece 6.00 35 06/23/16 18:00 72 I/O 06/23/16 06/23/16 06/23/16 06/24/16 06/24/16 06/24/16 07:00 15:00 23:00 07:00 15:00 23:00 Intake Total 555 ml 596 ml 660 ml 550 ml 631 ml Output Total 350 ml 250 ml 500 ml 400 ml 475 ml Balance 205 ml 346 ml 160 ml 150 ml 156 ml Intake Oral 0 ml 0 ml 0 ml IV Total 0 ml 0 ml Tube Feeding 295 ml 346 ml 400 ml 300 ml 381 ml Other 260 ml 250 ml 260 ml 250 ml 250 ml Output Urine Total 300 ml 250 ml 450 ml 375 ml 400 ml Stool Total 50 ml 0 ml 50 ml 25 ml 75 ml Result Diagram: 06/23/16 0442 Objective Remarks GENERAL: Elderly frail male, mild sob SKIN: Warm and dry. HEAD: Normocephalic. EYES: No scleral icterus. No injection or drainage. NECK: Supple, trachea midline. No JVD or lymphadenopathy. CARDIOVASCULAR: Regular rate and rhythm without murmurs, gallops, or rubs. RESPIRATORY: Breath sounds equal bilaterally. No accessory muscle use. GASTROINTESTINAL: Abdomen soft, non-tender, nondistended. MUSCULOSKELETAL: No cyanosis, or edema. BACK: Nontender without obvious deformity. No CVA tenderness. A/P Assessment and Plan RF,s/p Trach Aphasia Dysphagia Dementia PLAN: Trach care Aerosol nebs TF Stable to tr to floor near Nursing station DW RN at . Silverio Reyes MD Jun 24, 2016 17:42
[2016-06-25] VITALS (7 sets, daily range): BP systolic 110–142; BP diastolic 53–62; PULSE 82–94; RESP 22–34; TEMP 99.1–100.5; O2SAT 95–100
[2016-06-25] MEDS: CHLORHEXIDINE GLUCONATE 2 % 1 PACK (2 CLOTHS) TOP SCH (04:00)
[2016-06-25] MEDS: FREE WATER G-TUBE SCH ×4 (04:24→17:28)
[2016-06-25] MEDS: HEPARIN SODIUM - SQ 10,000 UNITS/ML VIAL SQ SCH ×3 (04:24→20:19)
[2016-06-25] MEDS: LOW DOSE INSULIN NOVOLOG SUPPLEMENTAL SCALE SQ SCH ×3 (04:25→17:28)
[2016-06-25] MEDS: MODAFINIL 200 MG TAB PO SCH (07:59)
[2016-06-25] MEDS: SODIUM CHLORIDE 0.9% FLUSH 5 ML FLUSH IV FLUSH SCH ×2 (07:59→20:20)
[2016-06-25] MEDS: FAMOTIDINE 20 MG TAB NG SCH ×2 (07:59→20:20)
[2016-06-25] MEDS: POVIDONE IODINE 10% SOLN 480 ML BTL TOPICAL SCH ×2 (07:59→20:20)
[2016-06-25] MEDS: SODIUM CHLORIDE 0.9% FLUSH 5 ML FLUSH IV FLUSH PRN (07:59)
[2016-06-25] MEDS: MORPHINE SULFATE 4 MG/ML INJ IV PRN ×4 (08:52→20:36)
--- NOTE | 2016-06-25 11:10 | HHI.PR ---
Subjective Remarks Follow-up for mental status, diarrhea Still with diarrhea but improving, more formed. Discussed with RN, no overnight events, no residuals. Afebrile. No change in mental status Objective Vitals Vital Signs Date Time Temp Pulse Resp B/P Pulse Ox O2 Delivery O2 Flow Rate FiO2 06/25/16 08:00 96 T-piece 6.00 28 06/25/16 08:00 99.7 92 30 124/61 97 06/25/16 08:00 97 T-Piece 28 06/25/16 08:00 92 06/25/16 04:00 91 06/25/16 04:00 100.5 91 34 120/59 95 06/25/16 04:00 T-Piece 6.00 35 06/25/16 00:00 99.1 84 33 110/57 98 06/25/16 00:00 T-Piece 6.00 35 06/25/16 00:00 84 06/24/16 20:15 98 T-piece 5.00 28 06/24/16 20:00 98.7 86 29 121/57 92 06/24/16 20:00 T-Piece 6.00 35 06/24/16 20:00 86 06/24/16 16:00 99 T-Piece 35 06/24/16 16:00 99.3 76 30 127/58 99 06/24/16 16:00 76 06/24/16 12:00 99.8 75 30 111/54 97 06/24/16 12:00 97 T-Piece 35 06/24/16 12:00 75 I/O 06/24/16 06/24/16 06/24/16 06/25/16 06/25/16 06/25/16 07:00 15:00 23:00 07:00 15:00 23:00 Intake Total 550 ml 631 ml 474 ml 481 ml Output Total 400 ml 475 ml 500 ml 275 ml Balance 150 ml 156 ml -26 ml 206 ml Intake Oral 0 ml IV Total 0 ml Tube Feeding 300 ml 381 ml 474 ml 231 ml Other 250 ml 250 ml 250 ml Output Urine Total 375 ml 400 ml 500 ml 275 ml Stool Total 25 ml 75 ml # Bowel Movements 1 1 Result Diagram: 06/23/16 0442 Objective Remarks GENERAL: 80 yo male patient, critically ill, trach+ SKIN: Warm and dry. No rash. Positive sacral decubitus ulcer NECK: Supple, trachea midline. No JVD. tracheostomy in place without bleeding. CARDIOVASCULAR: Regular rate and rhythm with S1, S2. No S4. Without murmurs, gallops, or rubs. RESPIRATORY: Poor respiratory effort, otherwise clear GASTROINTESTINAL: Abdomen soft, non-tender, distended. PEG tube is in place, still with loose stools per rectal tube, more formed. MUSCULOSKELETAL: With trace nonpitting peripheral upper and lower extremity edema. Neuro: Arousable, opens eyes but not following commands. Advanced dementia, noninteractive. A/P Assessment and Plan Alzheimer's dementia, Hypoactive delirium, Depression/anxiety -increased Provigil to 400 mg daily 06/25/16 in attempt increased alertness. Monitor response. Acute hypoxic and hypercarbic respiratory failure, Lower lobe atelectasis - on TP, pulmonary following. Continue bronchodilators as needed. Chest x-ray stable. Hypertension-fairly controlled. Anorexia, Failure to thrive, Gastroesophageal reflux disease, Moderate protein calorie malnutrition -Continue TF -Glucerna 1.5 with goal rate 50ml/hr via PEG tube-resume, CT scan of the abdomen unremarkable, continue Pepcid. Diarrhea-likely from laxatives from a few days ago, had constipation was given a lot of laxatives. At this point, laxatives are all stopped. Monitor. BMP stable. If persists, continue changing tube feeds. E. Cloacae UTI - -blood cultures negative. Finished cefepime. No leukocytosis. Hyperglycemia of critical illness - On SSI, stable. DVT prophylaxis-continue Heparin SQ twice a day Transfer to [facility], bed pending Discharge Planning Patient pending long-term placement Otoniel Shah MD Jun 25, 2016 11:10
--- NOTE | 2016-06-25 16:17 | HHI.PR ---
Subjective Remarks 80 YOmale with Dementia, RF,Trach Pt aphasic Tolerates TF On Trach collar No new complaint Maintains 100% sat Objective Vital Signs Vital Signs Date Time Temp Pulse Resp B/P Pulse Ox O2 Delivery O2 Flow Rate FiO2 06/25/16 16:00 100 T-Piece 28 06/25/16 16:00 94 06/25/16 16:00 99.6 94 27 122/59 100 06/25/16 12:00 99.4 85 26 113/53 100 06/25/16 12:00 100 T-Piece 28 06/25/16 12:00 85 06/25/16 08:00 96 T-piece 6.00 28 06/25/16 08:00 99.7 92 30 124/61 97 06/25/16 08:00 97 T-Piece 28 06/25/16 08:00 92 06/25/16 04:00 91 06/25/16 04:00 100.5 91 34 120/59 95 06/25/16 04:00 T-Piece 6.00 35 06/25/16 00:00 99.1 84 33 110/57 98 06/25/16 00:00 T-Piece 6.00 35 06/25/16 00:00 84 06/24/16 20:15 98 T-piece 5.00 28 06/24/16 20:00 98.7 86 29 121/57 92 06/24/16 20:00 T-Piece 6.00 35 06/24/16 20:00 86 I/O 06/24/16 06/24/16 06/24/16 06/25/16 06/25/16 06/25/16 07:00 15:00 23:00 07:00 15:00 23:00 Intake Total 550 ml 631 ml 474 ml 481 ml 639 ml Output Total 400 ml 475 ml 500 ml 275 ml 975 ml Balance 150 ml 156 ml -26 ml 206 ml -336 ml Intake Oral 0 ml IV Total 0 ml Tube Feeding 300 ml 381 ml 474 ml 231 ml 389 ml Other 250 ml 250 ml 250 ml 250 ml Output Urine Total 375 ml 400 ml 500 ml 275 ml 875 ml Stool Total 25 ml 75 ml 100 ml # Bowel Movements 1 1 Result Diagram: 06/23/16 0442 Objective Remarks GENERAL: Elderly frail male, mild sob SKIN: Warm and dry. HEAD: Normocephalic. EYES: No scleral icterus. No injection or drainage. NECK: Supple, trachea midline. No JVD or lymphadenopathy. CARDIOVASCULAR: Regular rate and rhythm without murmurs, gallops, or rubs. RESPIRATORY: Breath sounds equal bilaterally. No accessory muscle use. GASTROINTESTINAL: Abdomen soft, non-tender, nondistended. MUSCULOSKELETAL: No cyanosis, or edema. BACK: Nontender without obvious deformity. No CVA tenderness. A/P Assessment and Plan RF,s/p Trach Aphasia Dysphagia Dementia PLAN: Trach care Aerosol nebs TF Stable to tr to floor near Nursing station DW RN at BS. Will try to wean off 02 Silverio Reyes MD Jun 25, 2016 16:17
[2016-06-26] MEDS: FREE WATER G-TUBE SCH ×4 (01:03→18:00)
[2016-06-26 04:00] VITALS: BP 110/57; PULSE 100; RESP 24; TEMP 100.2; O2SAT 100
[2016-06-26] MEDS: CHLORHEXIDINE GLUCONATE 2 % 1 PACK (2 CLOTHS) TOP SCH (04:00)
[2016-06-26] MEDS: HEPARIN SODIUM - SQ 10,000 UNITS/ML VIAL SQ SCH ×3 (06:13→23:19)
[2016-06-26] MEDS: LOW DOSE INSULIN NOVOLOG SUPPLEMENTAL SCALE SQ SCH ×4 (06:15→18:12)
[2016-06-26 08:00] VITALS: BP 141/68; PULSE 100; RESP 20; TEMP 98.2; O2SAT 97
[2016-06-26] MEDS: FAMOTIDINE 20 MG TAB NG SCH ×2 (09:00→23:19)
[2016-06-26] MEDS: POVIDONE IODINE 10% SOLN 480 ML BTL TOPICAL SCH ×2 (09:00→21:00)
[2016-06-26 12:00] VITALS: BP 138/66; PULSE 103; RESP 20; TEMP 97.8; O2SAT 98
[2016-06-26] MEDS: MODAFINIL 200 MG TAB PO SCH (12:16)
[2016-06-26] MEDS: SODIUM CHLORIDE 0.9% FLUSH 5 ML FLUSH IV FLUSH SCH ×2 (12:16→21:00)
[2016-06-26 14:00] VITALS: BP 113/59; PULSE 72; RESP 19; TEMP 97.7; O2SAT 96
--- NOTE | 2016-06-26 16:43 | HHI.PR ---
Subjective Remarks Follow-up altered mental status, diarrhea. No change per nursing. Objective Vitals Vital Signs Date Time Temp Pulse Resp B/P Pulse Ox O2 Delivery O2 Flow Rate FiO2 06/26/16 12:00 97.8 103 20 138/66 98 06/26/16 08:00 98.2 100 20 141/68 97 06/26/16 04:00 100.2 100 24 110/57 100 06/26/16 01:05 T-Piece 6.00 28 06/25/16 23:10 100.0 88 22 119/59 97 06/25/16 20:00 82 06/25/16 20:00 T-Piece 6.00 28 06/25/16 20:00 100.0 82 23 142/62 100 I/O 06/25/16 06/25/16 06/25/16 06/26/16 06/26/16 06/26/16 07:00 15:00 23:00 07:00 15:00 23:00 Intake Total 481 ml 639 ml 659 ml Output Total 275 ml 975 ml 600 ml 400 ml Balance 206 ml -336 ml 59 ml -400 ml Tube Feeding 231 ml 389 ml 659 ml Other 250 ml 250 ml Output Urine Total 275 ml 875 ml 550 ml 400 ml Stool Total 100 ml 50 ml # Bowel Movements 1 0 Result Diagram: 06/23/16 0442 Imaging Last Impressions Abdomen/Pelvis CT 06/19/16 0000 Signed Impressions: Service Date/Time: Monday, June 20, 2016 02:30 - CONCLUSION: 1. Moderate stool throughout the colon. No obstruction or inflammatory changes. No small bowel distention. 2. Subacute appearing left hip fracture. 3. PEG tube without evidence of an acute complication. Gary Griffin MD Chest X-Ray 06/17/16 0600 Signed Impressions: Service Date/Time: Friday, June 17, 2016 03:24 - CONCLUSION: No significant change has occurred. Todd Burton MD Abdomen X-Ray 06/17/16 0000 Signed Impressions: Service Date/Time: Friday, June 17, 2016 11:51 - CONCLUSION: No abnormal dilatation of the large or small bowel to indicate an ileus. There is a gastrostomy tube in the stomach which appears to be somewhat distended with air. José Miguel Celis MD Objective Remarks General: Elderly male in no acute distress. HEENT: Trach. Heart: Regular rate and rhythm. No murmur. Lungs: Coarse breath sounds bilaterally. Breathing is nonlabored. Abdomen: Soft, nontender, nondistended. Extremities: No lower extremity edema. Psych: Does not respond to verbal stimuli. Does not track or follow commands. Urinary Catheter: Yes Assessment to: Continue Mckeon insert reason: Prolonged Immobilization Vascular Central Line Catheter: No A/P Problem List: (1) UTI (urinary tract infection) ICD Code: N39.0 Status: Acute (2) Alzheimer's dementia ICD Code: F02.80 Status: Chronic (3) Malnourished ICD Code: E46 Status: Acute (4) Acute respiratory failure with hypoxia and hypercarbia ICD Code: J96.01 Status: Acute (5) Hypertension ICD Code: I10 Status: Chronic (6) GERD (gastroesophageal reflux disease) ICD Code: K21.9 Status: Chronic (7) Diarrhea ICD Code: R19.7 Status: Acute Assessment and Plan 1. Alzheimer's dementia: Patient also with delirium, depression, anxiety. Provigil increased yesterday. 2. Acute hypoxic and hypercarbic respiratory failure: Appreciate pulmonology recommendations. Continue bronchodilators as needed. Chest x-ray is stable. On T piece 3. Hypertension: Reasonably well controlled. 4. Anorexia, failure to thrive, moderate protein calorie malnutrition: Continue tube feeds with Glucerna. 5. GERD: Continue Pepcid. 6. Diarrhea: Likely secondary to laxatives. 7. UTI: Blood cultures are negative. Status post treatment with cefepime. 8. Hyperglycemia of critical illness: Monitor Accu-Cheks and cover with sliding scale insulin. 9. DVT prophylaxis: Heparin. Discharge Planning Awaiting placement. Case management assisting with discharge planning. Zac Dolan MD Jun 26, 2016 16:43
--- NOTE | 2016-06-26 19:34 | HHI.PR ---
Subjective Remarks 80 YOmale with Dementia, RF,Trach Pt aphasic Tolerates TF On Trach collar No new complaint tr to floor Objective Vital Signs Vital Signs Date Time Temp Pulse Resp B/P Pulse Ox O2 Delivery O2 Flow Rate FiO2 06/26/16 14:00 97.7 72 19 113/59 96 06/26/16 12:00 97.8 103 20 138/66 98 06/26/16 08:00 98.2 100 20 141/68 97 06/26/16 04:00 100.2 100 24 110/57 100 06/26/16 01:05 T-Piece 6.00 28 06/25/16 23:10 100.0 88 22 119/59 97 06/25/16 20:00 82 06/25/16 20:00 T-Piece 6.00 28 06/25/16 20:00 100.0 82 23 142/62 100 I/O 06/25/16 06/25/16 06/25/16 06/26/16 06/26/16 06/26/16 07:00 15:00 23:00 07:00 15:00 23:00 Intake Total 481 ml 639 ml 659 ml Output Total 275 ml 975 ml 600 ml 400 ml 750 ml Balance 206 ml -336 ml 59 ml -400 ml -750 ml Tube Feeding 231 ml 389 ml 659 ml Other 250 ml 250 ml Output Urine Total 275 ml 875 ml 550 ml 400 ml 750 ml Stool Total 100 ml 50 ml # Bowel Movements 1 0 Result Diagram: 06/23/16 0442 Objective Remarks GENERAL: Elderly frail male, mild sob SKIN: Warm and dry. HEAD: Normocephalic. EYES: No scleral icterus. No injection or drainage. NECK: Supple, trachea midline. No JVD or lymphadenopathy. CARDIOVASCULAR: Regular rate and rhythm without murmurs, gallops, or rubs. RESPIRATORY: Breath sounds equal bilaterally. No accessory muscle use. GASTROINTESTINAL: Abdomen soft, non-tender, nondistended. MUSCULOSKELETAL: No cyanosis, or edema. BACK: Nontender without obvious deformity. No CVA tenderness. A/P Assessment and Plan RF,s/p Trach Aphasia Dysphagia Dementia PLAN: Trach care Aerosol nebs TF DW RN at BS. Will try to wean off 02 Silverio Reyes MD Jun 26, 2016 19:34
[2016-06-26 20:22] VITALS: BP 137/65; PULSE 95; RESP 22; TEMP 101.7; O2SAT 98
[2016-06-26 21:32] VITALS: O2SAT 96
[2016-06-26] MEDS: ACETAMINOPHEN 325 MG TAB PO PRN (23:20)
[2016-06-27] VITALS (8 sets, daily range): BP systolic 124–139; BP diastolic 60–69; PULSE 94–109; RESP 21–24; TEMP 99–101.7; O2SAT 98–100
[2016-06-27] MEDS: CHLORHEXIDINE GLUCONATE 2 % 1 PACK (2 CLOTHS) TOP SCH (04:00)
[2016-06-27] MEDS: ACETAMINOPHEN 325 MG TAB PO PRN ×2 (04:58→23:49)
[2016-06-27] MEDS: HEPARIN SODIUM - SQ 10,000 UNITS/ML VIAL SQ SCH ×3 (04:58→23:49)
[2016-06-27] MEDS: FREE WATER G-TUBE SCH ×4 (04:58→18:00)
[2016-06-27] MEDS: LOW DOSE INSULIN NOVOLOG SUPPLEMENTAL SCALE SQ SCH ×4 (06:00→19:06)
[2016-06-27] MEDS: SODIUM CHLORIDE 0.9% FLUSH 5 ML FLUSH IV FLUSH SCH ×2 (09:00→21:00)
[2016-06-27] MEDS: POVIDONE IODINE 10% SOLN 480 ML BTL TOPICAL SCH ×2 (09:00→21:00)
--- NOTE | 2016-06-27 09:37 | HHI.PR ---
Subjective Remarks Follow up fever. The patient was febrile overnight with Tmax 101.7. No other changes per nursing. Patient remains nonverbal and does not respond to verbal stimuli. Objective Vitals Vital Signs Date Time Temp Pulse Resp B/P Pulse Ox O2 Delivery O2 Flow Rate FiO2 06/27/16 08:00 99.3 101 21 139/63 100 06/27/16 05:29 99.7 101 24 132/60 100 06/27/16 00:46 100.8 94 22 132/69 100 06/26/16 21:32 96 T-piece 6.00 40 06/26/16 20:22 101.7 95 22 137/65 98 06/26/16 14:00 97.7 72 19 113/59 96 06/26/16 12:00 97.8 103 20 138/66 98 I/O 06/26/16 06/26/16 06/26/16 06/27/16 06/27/16 06/27/16 07:00 15:00 23:00 07:00 15:00 23:00 Output Total 400 ml 750 ml 850 ml Balance -400 ml -750 ml -850 ml Output Urine Total 400 ml 750 ml 850 ml # Bowel Movements 0 Result Diagram: 06/23/16 0442 Imaging Last Impressions Abdomen/Pelvis CT 06/19/16 0000 Signed Impressions: Service Date/Time: Monday, June 20, 2016 02:30 - CONCLUSION: 1. Moderate stool throughout the colon. No obstruction or inflammatory changes. No small bowel distention. 2. Subacute appearing left hip fracture. 3. PEG tube without evidence of an acute complication. Gary Griffin MD Chest X-Ray 06/17/16 0600 Signed Impressions: Service Date/Time: Friday, June 17, 2016 03:24 - CONCLUSION: No significant change has occurred. Todd Burton MD Abdomen X-Ray 06/17/16 0000 Signed Impressions: Service Date/Time: Friday, June 17, 2016 11:51 - CONCLUSION: No abnormal dilatation of the large or small bowel to indicate an ileus. There is a gastrostomy tube in the stomach which appears to be somewhat distended with air. José Miguel Celis MD Objective Remarks General: Elderly male in no acute distress. HEENT: Trach. Heart: Regular rate and rhythm. No murmur. Lungs: Coarse breath sounds bilaterally. Breathing is nonlabored. Abdomen: Soft, nontender, nondistended. Extremities: No lower extremity edema. Psych: Does not respond to verbal stimuli. Does not track or follow commands. Urinary Catheter: Yes Assessment to: Continue Mckeon insert reason: Prolonged Immobilization Vascular Central Line Catheter: No A/P Problem List: (1) UTI (urinary tract infection) ICD Code: N39.0 Status: Acute (2) Alzheimer's dementia ICD Code: F02.80 Status: Chronic (3) Malnourished ICD Code: E46 Status: Acute (4) Acute respiratory failure with hypoxia and hypercarbia ICD Code: J96.01 Status: Acute (5) Hypertension ICD Code: I10 Status: Chronic (6) GERD (gastroesophageal reflux disease) ICD Code: K21.9 Status: Chronic (7) Diarrhea ICD Code: R19.7 Status: Acute (8) Fever ICD Code: R50.9 Status: Acute Assessment and Plan 1. Alzheimer's dementia: Patient also with delirium, depression, anxiety. Continue Provigil. 2. Acute hypoxic and hypercarbic respiratory failure: Appreciate pulmonology recommendations. Continue bronchodilators as needed. Repeat chest x-ray is pending this morning. On T piece. 3. Hypertension: Reasonably well controlled. 4. Anorexia, failure to thrive, moderate protein calorie malnutrition: Continue tube feeds with Glucerna. 5. GERD: Continue Pepcid. 6. Diarrhea: Likely secondary to laxatives. 7. UTI: Blood cultures are negative. Status post treatment with cefepime. 8. Hyperglycemia of critical illness: Monitor Accu-Cheks and cover with sliding scale insulin. 9. DVT prophylaxis: Heparin. 10. Fever: Uncertain etiology. Check chest x-ray, urinalysis, blood cultures. Discharge Planning Awaiting placement. Case management assisting with discharge planning. Zac Dolan MD Jun 27, 2016 09:37
--- NOTE | 2016-06-27 09:56 | RADRPT ---
EXAM DATE/TIME: 06/27/2016 09:03 [facility] COMPARISON: CHEST SINGLE AP, June 04, 2016, 10:44. CHEST SINGLE AP, June 17, 2016, 3:24. INDICATIONS : Fever. MEDICAL HISTORY : None. SURGICAL HISTORY : None. ENCOUNTER: Initial ACUITY: 3 weeks PAIN SCORE: Non-responsive. LOCATION: Bilateral chest FINDINGS: A single view of the chest demonstrates the lungs to be symmetrically aerated without evidence of mas s, infiltrate or effusion. Mild streaky opacity remains at the right lung base most consistent with a telectasis and/or scarring. A tracheostomy tube remains in place. The cardiomediastinal contours are unremarkable. Osseous structures are intact. There are overlying oxygen tubing. CONCLUSION: No acute disease. There is no evidence of pneumonia. Dhruv Tenorio MD on June 27, 2016 at 9:54 Board Certified Radiologist. This report was verified electronically.
[2016-06-27 10:35] LABS: AUTOMATED NEUTROPHIL # 8.2 TH/MM3 (1.8-7.7); BASOPHIL % 0.2 % (0.0-2.0); EOSINOPHIL # 0.5 TH/MM3 (0-0.4); EOSINOPHIL % 4.5 % (0.0-4.0); HEMATOCRIT 34.8 % (39.0-51.0); LYMPH % 15.3 % (9.0-44.0); LYMPHOCYTE # 1.8 TH/MM3 (1.0-4.8); MEAN CELL VOLUME 81.1 FL (80.0-100.0); MEAN CORPUSCULAR HEMOGLOBIN 27.6 PG (27.0-34.0); MONO % 8.7 % (0.0-8.0); NEUT % 71.3 % (16.0-70.0); PLATELET COUNT 326 TH/MM3 (150-450); RED BLOOD COUNT 4.29 MIL/MM3 (4.50-5.90); RED CELL DISTRIBUTION WIDTH 17.1 % (11.6-17.2); WHITE BLOOD COUNT 11.5 TH/MM3 (4.0-11.0)
[2016-06-27 10:36] LABS: HEMO FLAGS AUTO DIFF
[2016-06-27 10:37] LABS: POTASSIUM 4.4 MEQ/L (3.5-5.1)
[2016-06-27 11:02] LABS: CORRECTED NUCLEATED RBC 1 /100 WBC (0-0); EOSINOPHILS 5 % (0-4); NEUTROPHIL # MANUAL DIFF 8.2 TH/MM3 (1.8-7.7); POLYS (SEG NEUTROPHILS) 71 % (16-70); WBC DIFF SAMPLE 100
[2016-06-27 11:03] LABS: PLATELET ESTIMATE SMEAR NORMAL (NORMAL); PLATELET MORPHOLOGY NORMAL (NORMAL); SCAN/DIFF FINAL DIFF MANUAL
[2016-06-27] MEDS: MODAFINIL 200 MG TAB PO SCH (11:13)
[2016-06-27] MEDS: FAMOTIDINE 20 MG TAB NG SCH ×2 (11:13→23:49)
--- NOTE | 2016-06-27 20:16 | HHI.PR ---
Subjective Remarks 80 YOmale with Dementia, RF,Trach Pt aphasic Tolerates TF On Trach collar No new complaint Objective Vital Signs Vital Signs Date Time Temp Pulse Resp B/P Pulse Ox O2 Delivery O2 Flow Rate FiO2 06/27/16 14:00 100.1 100 22 124/65 100 06/27/16 12:17 99.0 102 22 139/68 98 06/27/16 09:23 98 T-piece 50 06/27/16 08:00 99.3 101 21 139/63 100 06/27/16 05:29 99.7 101 24 132/60 100 06/27/16 00:46 100.8 94 22 132/69 100 06/26/16 21:32 96 T-piece 6.00 40 06/26/16 20:22 101.7 95 22 137/65 98 I/O 06/26/16 06/26/16 06/26/16 06/27/16 06/27/16 06/27/16 07:00 15:00 23:00 07:00 15:00 23:00 Output Total 400 ml 750 ml 850 ml 900 ml Balance -400 ml -750 ml -850 ml -900 ml Output Urine Total 400 ml 750 ml 850 ml 900 ml # Bowel Movements 0 Result Diagram: 06/27/1625 06/27/16 0938 Objective Remarks GENERAL: Elderly frail male, mild sob SKIN: Warm and dry. HEAD: Normocephalic. EYES: No scleral icterus. No injection or drainage. NECK: Supple, trachea midline. No JVD or lymphadenopathy. CARDIOVASCULAR: Regular rate and rhythm without murmurs, gallops, or rubs. RESPIRATORY: Breath sounds equal bilaterally. No accessory muscle use. GASTROINTESTINAL: Abdomen soft, non-tender, nondistended. MUSCULOSKELETAL: No cyanosis, or edema. BACK: Nontender without obvious deformity. No CVA tenderness. A/P Assessment and Plan RF,s/p Trach Aphasia Dysphagia Dementia PLAN: Trach care Aerosol nebs TF LENO RN at BS. Will try to wean off 02 Silverio Reyes MD Jun 27, 2016 20:16
[2016-06-28] VITALS (8 sets, daily range): BP systolic 108–136; BP diastolic 41–77; PULSE 94–117; RESP 20–24; TEMP 99.2–101.7; O2SAT 92–99
[2016-06-28] MEDS: CHLORHEXIDINE GLUCONATE 2 % 1 PACK (2 CLOTHS) TOP SCH (04:00)
[2016-06-28] MEDS: LOW DOSE INSULIN NOVOLOG SUPPLEMENTAL SCALE SQ SCH ×5 (05:40→23:52)
[2016-06-28] MEDS: ACETAMINOPHEN 325 MG TAB PO PRN ×3 (05:41→22:31)
[2016-06-28] MEDS: FREE WATER G-TUBE SCH ×5 (05:42→23:52)
[2016-06-28] MEDS: HEPARIN SODIUM - SQ 10,000 UNITS/ML VIAL SQ SCH ×3 (05:42→22:31)
[2016-06-28 07:44] LABS: BACTERIA, URINE OCC /hpf; BLOOD, URINE NEG (NEG); GLUCOSE,URINE NEG (NEG); HYALINE CAST, URINE 1 /lpf (RARE); KETONE, URINE NEG (NEG); MUCUS URINE FEW /lpf (OCC); NITRITE,URINE NEG (NEG); PH, URINE 6.5 (5.0-8.5); URINE COLOR YELLOW (YELLW/STRAW)
[2016-06-28 07:53] LABS: COMMENT (UR) CATH-CULTURE IND; CULTURE IF INDICATED CATH CULTURE IND
[2016-06-28] MEDS: SODIUM CHLORIDE 0.9% FLUSH 5 ML FLUSH IV FLUSH SCH ×2 (09:00→22:32)
[2016-06-28] MEDS: POVIDONE IODINE 10% SOLN 480 ML BTL TOPICAL SCH ×2 (09:00→21:00)
[2016-06-28 09:47] LABS: AUTOMATED NEUTROPHIL # 6.5 TH/MM3 (1.8-7.7); BASOPHIL # 0.1 TH/MM3 (0-0.2); BASOPHIL % 0.8 % (0.0-2.0); EOSINOPHIL # 0.4 TH/MM3 (0-0.4); EOSINOPHIL % 4.4 % (0.0-4.0); LYMPH % 16.6 % (9.0-44.0); LYMPHOCYTE # 1.6 TH/MM3 (1.0-4.8); MEAN CELL VOLUME 82.5 FL (80.0-100.0); MEAN CORPUSCULAR HEMOGLOBIN 27.5 PG (27.0-34.0); MEAN CORPUSCULAR HGB CONC 33.3 % (32.0-36.0); MONO % 10.1 % (0.0-8.0); NEUT % 68.1 % (16.0-70.0); PLATELET COUNT 320 TH/MM3 (150-450); RED BLOOD COUNT 3.75 MIL/MM3 (4.50-5.90); RED CELL DISTRIBUTION WIDTH 16.9 % (11.6-17.2); WHITE BLOOD COUNT 9.6 TH/MM3 (4.0-11.0)
[2016-06-28] MEDS: FAMOTIDINE 20 MG TAB NG SCH ×2 (09:51→22:32)
[2016-06-28 10:00] LABS: HEMO FLAGS AUTO DIFF
[2016-06-28 10:07] LABS: BICARBONATE 27.2 MEQ/L (21.0-32.0); POTASSIUM 4.3 MEQ/L (3.5-5.1)
[2016-06-28] MEDS: MODAFINIL 200 MG TAB PO SCH (10:30)
[2016-06-28 10:46] LABS: BANDS 2 % (0-6); BASOPHILS 1 % (0-2); CORRECTED NUCLEATED RBC 1 /100 WBC (0-0); EOSINOPHILS 1 % (0-4); METAMYELOCYTES 2 % (0-1); MYELOCYTES 1 % (0-0); POLYS (SEG NEUTROPHILS) 78 % (16-70); WBC DIFF SAMPLE 100
[2016-06-28 10:47] LABS: PLATELET ESTIMATE SMEAR NORMAL (NORMAL); PLATELET MORPHOLOGY NORMAL (NORMAL); SCAN/DIFF FINAL DIFF MANUAL
--- NOTE | 2016-06-28 11:34 | HHI.PR ---
Subjective Remarks Follow-up fever, positive blood culture. Patient has had increased secretions per nursing. No other events reported. Objective Vitals Vital Signs Date Time Temp Pulse Resp B/P Pulse Ox O2 Delivery O2 Flow Rate FiO2 06/28/16 09:30 T-Piece 6.00 28 06/28/16 09:09 97 T-piece 40 06/28/16 07:33 99.2 94 20 108/41 98 06/28/16 05:00 99.7 102 24 114/77 99 06/28/16 00:40 100.3 107 24 125/67 98 06/27/16 23:00 T-Piece 6.00 28 06/27/16 22:10 99 T-piece 6.00 50 06/27/16 22:00 101.7 109 24 129/60 98 06/27/16 14:00 100.1 100 22 124/65 100 06/27/16 12:17 99.0 102 22 139/68 98 I/O 06/27/16 06/27/16 06/27/16 06/28/16 06/28/16 06/28/16 07:00 15:00 23:00 07:00 15:00 23:00 Intake Total 0 ml 0 ml Output Total 850 ml 1100 ml 400 ml Balance -850 ml -1100 ml -400 ml Intake Oral 0 ml 0 ml Output Urine Total 850 ml 1000 ml 300 ml Stool Total 100 ml 100 ml Result Diagram: 06/28/1682406/28/16824 Imaging Last Impressions Chest X-Ray 06/27/16 0000 Signed Impressions: Service Date/Time: Monday, June 27, 2016 09:03 - CONCLUSION: No acute disease. There is no evidence of pneumonia. Dhruv Tenorio MD Abdomen/Pelvis CT 06/19/16 0000 Signed Impressions: Service Date/Time: Monday, June 20, 2016 02:30 - CONCLUSION: 1. Moderate stool throughout the colon. No obstruction or inflammatory changes. No small bowel distention. 2. Subacute appearing left hip fracture. 3. PEG tube without evidence of an acute complication. Gary Griffin MD Abdomen X-Ray 06/17/16 0000 Signed Impressions: Service Date/Time: Friday, June 17, 2016 11:51 - CONCLUSION: No abnormal dilatation of the large or small bowel to indicate an ileus. There is a gastrostomy tube in the stomach which appears to be somewhat distended with air. José Miguel Celis MD Objective Remarks General: Elderly male in no acute distress. HEENT: Trach. Heart: Regular rate and rhythm. No murmur. Lungs: Coarse breath sounds bilaterally. Breathing is nonlabored. Abdomen: Soft, nontender, nondistended. Extremities: No lower extremity edema. Psych: Does not respond to verbal stimuli. Does not track or follow commands. Urinary Catheter: Yes Assessment to: Continue Mckeon insert reason: Prolonged Immobilization Vascular Central Line Catheter: No A/P Problem List: (1) UTI (urinary tract infection) ICD Code: N39.0 Status: Acute (2) Alzheimer's dementia ICD Code: F02.80 Status: Chronic (3) Malnourished ICD Code: E46 Status: Acute (4) Acute respiratory failure with hypoxia and hypercarbia ICD Code: J96.01 Status: Acute (5) Hypertension ICD Code: I10 Status: Chronic (6) GERD (gastroesophageal reflux disease) ICD Code: K21.9 Status: Chronic (7) Diarrhea ICD Code: R19.7 Status: Acute (8) Fever ICD Code: R50.9 Status: Acute Assessment and Plan 1. Alzheimer's dementia: Patient also with delirium, depression, anxiety. Continue Provigil. 2. Acute hypoxic and hypercarbic respiratory failure: Appreciate pulmonology recommendations. Continue bronchodilators as needed. Repeat chest x-ray is negative. On T piece. Levsin for secretions. 3. Hypertension: Reasonably well controlled. 4. Anorexia, failure to thrive, moderate protein calorie malnutrition: Continue tube feeds with Glucerna. 5. GERD: Continue Pepcid. 6. Diarrhea: Likely secondary to laxatives. 7. UTI: Repeat UA is abnormal. Urine culture is pending. Start Rocephin. 8. Hyperglycemia of critical illness: Monitor Accu-Cheks and cover with sliding scale insulin. 9. DVT prophylaxis: Heparin. 10. Bacteremia: Start antibiotics. Reconsult infectious disease. Blood culture positive for gram-positive cocci. Discharge Planning Awaiting placement. Case management assisting with discharge planning. Zac Dolan MD Jun 28, 2016 11:34
[2016-06-28] MEDS: cefTRIAXone INJ 2,000 MG in SODIUM CHLORIDE 0.9% INJ 100 ML IV SCH (12:11)
--- NOTE | 2016-06-28 14:08 | HHI.IDPN ---
Note Infectious Disease Note Patient spike temp to 101.7. Asked to reevaluate him. Non verbal. On trach collar. 6L O2. Copious green ET secretions. Current Medications Medications (Trade) Dose Ordered Sig/Estefany Route PRN Reason Start Time Stop Time Status Last Admin Dose Admin IV Flush (NS Flush) 2 ml UNSCH PRN IV FLUSH FLUSH AFTER USING IV ACCESS 06/04/16 04:15 06/25/16 07:59 IV Flush (NS Flush) 2 ml BID IV FLUSH 06/04/16 09:00 06/28/16 09:00 Acetaminophen (Tylenol) 650 mg Q6H PRN PO PAIN 1-10 AND/OR FEVER >101F 06/04/16 04:15 06/28/16 05:41 Morphine Sulfate (Morphine Inj) 2 mg Q2H PRN IV PAIN SCALE 6 TO 10 06/04/16 04:15 06/25/16 20:36 Ondansetron HCl (Zofran Inj) 4 mg Q6H PRN IV NAUSEA OR VOMITING 06/04/16 04:15 06/19/16 04:27 Miscellaneous Information 1 Q361D XX 06/04/16 04:15 06/04/16 04:15 Chlorhexidine Gluconate (Chlorhexidine 2% Cloth) 3 pack Taper DAILY@04 TOP 06/05/16 04:00 06/01/17 03:59 06/25/16 04:00 Chlorhexidine Gluconate (Chlorhexidine 2% Cloth) 3 pack UNSCH PRN TOP HYGIENIC CARE 06/04/16 04:15 Famotidine (Pepcid) 20 mg BID NG 06/13/16 21:00 06/28/16 09:51 Water (Free Water) 250 ml Q6HR G-TUBE 06/15/16 18:00 06/28/16 12:00 Heparin Sodium (Porcine) (Heparin Inj) 5,000 units Q8HR SQ 06/18/16 14:00 06/28/16 05:42 Dextrose (D50w (Vial) Inj) 25 ml UNSCH PRN IV PUSH HYPOGLYCEMIA - SEE COMMENTS 06/20/16 15:30 Glucagon (Glucagon Inj) 1 mg UNSCH PRN OTHER HYPOGLYCEMIA-SEE COMMENTS 06/20/16 15:30 Insulin Aspart (NovoLOG SUPPLEMENTAL SCALE) 1 Q6H SQ 06/20/16 18:00 06/28/16 12:00 Povidone Iodine (Betadine 10% Top Soln) 1 applic BID TOPICAL 06/23/16 13:00 06/28/16 09:00 Metoclopramide HCl (Reglan Inj) 5 mg Q8HR PRN IV PUSH n/v/residuals 06/23/16 15:00 Polyethylene Glycol (Miralax) 17 gm DAILY PRN PO no BM x 2 days 06/23/16 15:00 Modafinil 400 mg 400 mg DAILY PO 06/25/16 09:00 06/28/16 10:30 Ceftriaxone Sodium/Sodium Chloride (Rocephin Inj/NS Inj) 100 ml @ 200 mls/hr Q24H IV 06/28/16 11:00 06/28/16 12:11 Hyoscyamine Sulfate (Levsin) 0.125 mg Q4H PRN PO INCREASED SECRETIONS 06/28/16 11:45 Past Medical History Alzheimer's dementia, anxiety, BPH and HNT Allergies: Coded Allergies: No Known Allergies (Unverified , 01/04/16) Objective Vital Signs Date Time Temp Pulse Resp B/P Pulse Ox O2 Delivery O2 Flow Rate FiO2 06/28/16 11:45 100.0 105 20 130/53 98 06/28/16 09:30 T-Piece 6.00 28 06/28/16 09:09 97 T-piece 40 06/28/16 07:33 99.2 94 20 108/41 98 06/28/16 05:00 99.7 102 24 114/77 99 06/28/16 00:40 100.3 107 24 125/67 98 06/27/16 23:00 T-Piece 6.00 28 06/27/16 22:10 99 T-piece 6.00 50 06/27/16 22:00 101.7 109 24 129/60 98 06/27/16 06/27/16 06/28/16 15:00 23:00 07:00 Intake Total 0 ml 0 ml Output Total 1100 ml 400 ml Balance -1100 ml -400 ml Intake Oral 0 ml 0 ml Output Urine Total 1000 ml 300 ml Stool Total 100 ml 100 ml Laboratory Tests Test 06/27/16 06/28/16 09:25 08:25 White Blood Count 11.5 TH/MM3 9.6 TH/MM3 Red Blood Count 4.29 MIL/MM3 3.75 MIL/MM3 Hemoglobin 11.8 GM/DL 10.3 GM/DL Hematocrit 34.8 % 31.0 % Mean Corpuscular Volume 81.1 FL 82.5 FL Mean Corpuscular Hemoglobin 27.6 PG 27.5 PG Mean Corpuscular Hemoglobin 34.0 % 33.3 % Concent Red Cell Distribution Width 17.1 % 16.9 % Platelet Count 326 TH/MM3 320 TH/MM3 Mean Platelet Volume 7.7 FL 7.8 FL Neutrophils (%) (Auto) 71.3 % 68.1 % Lymphocytes (%) (Auto) 15.3 % 16.6 % Monocytes (%) (Auto) 8.7 % 10.1 % Eosinophils (%) (Auto) 4.5 % 4.4 % Basophils (%) (Auto) 0.2 % 0.8 % Neutrophils # (Auto) 8.2 TH/MM3 6.5 TH/MM3 Lymphocytes # (Auto) 1.8 TH/MM3 1.6 TH/MM3 Monocytes # (Auto) 1.0 TH/MM3 1.0 TH/MM3 Eosinophils # (Auto) 0.5 TH/MM3 0.4 TH/MM3 Basophils # (Auto) 0.0 TH/MM3 0.1 TH/MM3 CBC Comment AUTO DIFF AUTO DIFF Differential Total Cells 100 100 Counted Neutrophils % (Manual) 71 % 78 % Lymphocytes % 15 % 12 % Monocytes % 9 % 3 % Eosinophils % 5 % 1 % Neutrophils # (Manual) 8.2 TH/MM3 8.0 TH/MM3 Nucleated Red Blood Cells 1 /100 WBC 1 /100 WBC Differential Comment FINAL DIFF FINAL DIFF MANUAL MANUAL Platelet Estimate NORMAL NORMAL Platelet Morphology Comment NORMAL NORMAL Red Cell Morphology Comment NORMAL Hematology Comments Band Neutrophils % 2 % Basophils % 1 % Metamyelocytes 2 % Myelocytes 1 % Laboratory Tests Test 06/27/16 06/28/16 09:38 08:25 Sodium Level 133 MEQ/L 135 MEQ/L Potassium Level 4.4 MEQ/L 4.3 MEQ/L Chloride Level 98 MEQ/L 98 MEQ/L Carbon Dioxide Level 26.0 MEQ/L 27.2 MEQ/L Anion Gap 9 MEQ/L 10 MEQ/L Blood Urea Nitrogen 13 MG/DL 14 MG/DL Creatinine 0.76 MG/DL 0.84 MG/DL Estimat Glomerular Filtration 98 ML/MIN 87 ML/MIN Rate Random Glucose 204 MG/DL 203 MG/DL Calcium Level 8.9 MG/DL 9.1 MG/DL Microbiology Date/Time Procedure Status Source Growth 06/27/16 09:38 Aerobic Blood Culture - Preliminary Resulted Blood Peripheral NO GROWTH IN 1 DAY 06/27/16 09:38 Anaerobic Blood Culture - Preliminary Resulted Blood Peripheral NO GROWTH IN 1 DAY 06/27/16 09:55 Aerobic Blood Culture - Preliminary Resulted Blood Peripheral Gram Positive Cocci 06/27/16 09:55 Anaerobic Blood Culture - Final Resulted Blood Peripheral QNS - SEE AEROBE REPORT 06/28/16 06:00 Urine Culture Received Urine Catheterized Urine Pending Imaging Abdomen/Pelvis CT 06/19/16 0000 Signed Impressions: Service Date/Time: Monday, June 20, 2016 02:30 - CONCLUSION: 1. Moderate stool throughout the colon. No obstruction or inflammatory changes. No small bowel distention. 2. Subacute appearing left hip fracture. 3. PEG tube without evidence of an acute complication. Gary Griffin MD Chest X-Ray 06/13/16 0000 Signed Impressions: Service Date/Time: Monday, June 13, 2016 15:09 - CONCLUSION: 1. No pneumothorax is visualized. Tracheostomy in appropriate position. 2. Small left basilar opacity likely representing pleural effusion with associated volume loss and/or consolidation. There is atelectasis versus consolidation at the right lung base. Gary Tracy MD Chest X-Ray 06/11/16 0600 Signed Impressions: Service Date/Time: Saturday, June 11, 2016 03:55 - CONCLUSION: Persistent patchy infrahilar infiltrates bilaterally. The endotracheal tube is directed towards right main bronchus and should be withdrawn [address] MD Chest X-Ray 06/07/16 0600 Signed Impressions: Service Date/Time: Tuesday, June 07, 2016 05:08 - CONCLUSION: Improving aeration. Gary Mcgee MD Physical Exam GENERAL: Non responsive HEENT: No scleral icterus. oral mucosae dry, NECK: Trachea midline. No swelling. Trach in place. CARDIOVASCULAR: Regular rate and rhythm without murmurs, gallops, or rubs. RESPIRATORY: Bilateral rhonchi. GASTROINTESTINAL: Abdomen soft, non-tender, nondistended. MUSCULOSKELETAL: Extremities without clubbing, cyanosis, or edema. SKIN: No rash, or lesions. NEUROLOGICAL: not responding. PSYCHIATRIC: unable to assess Assessment & Plan Remarks UTI, sepsis treated. . ARF, improved Acute Ventilator dependent respiratory failure - Extubated. PNA. repeat sputum culture with alla. No need to treat. New FEVER. blood culture has gram positive cocci in one bottle. ? significance. RECOMMENDATIONS. Stop Ceftriaxone. Start Zosyn. Monitor blood culture. Monitor urine culture. Send sputum culture. Follow temp. Follow clinical status. Dr Cardenas back tomorrow and will resume ID care. Cornel Ordoñez MD Jun 28, 2016 14:08
[2016-06-28] MEDS: PIPERACIL-TAZO 4.5 GM PREMIX 100 ML IV SCH ×2 (16:20→22:30)
[2016-06-28] MEDS: HYOSCYAMINE 0.125 MG TAB PO PRN ×2 (17:14→22:32)
--- NOTE | 2016-06-28 17:33 | HHI.PR ---
Subjective Remarks 80 YOmale with Dementia, RF,Trach Pt aphasic Tolerates TF On Trach collar has Positive Bc, on Zosyn and Rocephin Objective Vital Signs Vital Signs Date Time Temp Pulse Resp B/P Pulse Ox O2 Delivery O2 Flow Rate FiO2 06/28/16 14:30 97 T-piece 40 06/28/16 11:45 100.0 105 20 130/53 98 06/28/16 09:30 T-Piece 6.00 28 06/28/16 09:09 97 T-piece 40 06/28/16 07:33 99.2 94 20 108/41 98 06/28/16 05:00 99.7 102 24 114/77 99 06/28/16 00:40 100.3 107 24 125/67 98 06/27/16 23:00 T-Piece 6.00 28 06/27/16 22:10 99 T-piece 6.00 50 06/27/16 22:00 101.7 109 24 129/60 98 I/O 06/27/16 06/27/16 06/27/16 06/28/16 06/28/16 06/28/16 07:00 15:00 23:00 07:00 15:00 23:00 Intake Total 0 ml 0 ml Output Total 850 ml 1100 ml 400 ml Balance -850 ml -1100 ml -400 ml Intake Oral 0 ml 0 ml Output Urine Total 850 ml 1000 ml 300 ml Stool Total 100 ml 100 ml Result Diagram: 06/28/1682406/28/16824 Objective Remarks GENERAL: Elderly frail male, mild sob SKIN: Warm and dry. HEAD: Normocephalic. EYES: No scleral icterus. No injection or drainage. NECK: Supple, trachea midline. No JVD or lymphadenopathy. CARDIOVASCULAR: Regular rate and rhythm without murmurs, gallops, or rubs. RESPIRATORY: Breath sounds equal bilaterally. No accessory muscle use. GASTROINTESTINAL: Abdomen soft, non-tender, nondistended. MUSCULOSKELETAL: No cyanosis, or edema. BACK: Nontender without obvious deformity. No CVA tenderness. A/P Assessment and Plan RF,s/p Trach Aphasia Dysphagia Dementia PLAN: Trach care Aerosol nebs TF DW RN at BS. Abx Rocephin and Zosyn Silverio Reyes MD Jun 28, 2016 17:33
[2016-06-29] VITALS (7 sets, daily range): BP systolic 109–137; BP diastolic 52–86; PULSE 87–99; RESP 20–22; TEMP 98–100.4; O2SAT 96–97
[2016-06-29] MEDS: PIPERACIL-TAZO 4.5 GM PREMIX 100 ML IV SCH ×4 (02:48→21:57)
[2016-06-29] MEDS: SODIUM CHLORIDE 0.9% FLUSH 5 ML FLUSH IV FLUSH PRN (02:49)
[2016-06-29] MEDS: CHLORHEXIDINE GLUCONATE 2 % 1 PACK (2 CLOTHS) TOP SCH (04:00)
[2016-06-29] MEDS: HEPARIN SODIUM - SQ 10,000 UNITS/ML VIAL SQ SCH ×3 (05:34→21:59)
[2016-06-29] MEDS: HYOSCYAMINE 0.125 MG TAB PO PRN ×3 (05:35→21:57)
[2016-06-29] MEDS: ACETAMINOPHEN 325 MG TAB PO PRN ×2 (05:35→11:54)
[2016-06-29] MEDS: FREE WATER G-TUBE SCH ×3 (06:00→18:00)
[2016-06-29] MEDS: LOW DOSE INSULIN NOVOLOG SUPPLEMENTAL SCALE SQ SCH ×3 (06:00→18:37)
[2016-06-29 07:44] LABS: AUTOMATED NEUTROPHIL # 8.4 TH/MM3 (1.8-7.7); BASOPHIL # 0.1 TH/MM3 (0-0.2); EOSINOPHIL # 0.3 TH/MM3 (0-0.4); EOSINOPHIL % 2.4 % (0.0-4.0); HEMATOCRIT 27.8 % (39.0-51.0); LYMPH % 11.9 % (9.0-44.0); LYMPHOCYTE # 1.3 TH/MM3 (1.0-4.8); MEAN CELL VOLUME 82.1 FL (80.0-100.0); MEAN CORPUSCULAR HEMOGLOBIN 27.3 PG (27.0-34.0); MEAN CORPUSCULAR HGB CONC 33.3 % (32.0-36.0); MONO % 8.1 % (0.0-8.0); NEUT % 76.6 % (16.0-70.0); PLATELET COUNT 320 TH/MM3 (150-450); RED BLOOD COUNT 3.39 MIL/MM3 (4.50-5.90); RED CELL DISTRIBUTION WIDTH 16.9 % (11.6-17.2)
[2016-06-29 07:49] LABS: HEMO FLAGS AUTO DIFF
[2016-06-29 08:13] LABS: BICARBONATE 25.8 MEQ/L (21.0-32.0); POTASSIUM 3.9 MEQ/L (3.5-5.1)
[2016-06-29 08:33] LABS: BANDS 10 % (0-6); BASOPHILS 2 % (0-2); CORRECTED NUCLEATED RBC 1 /100 WBC (0-0); EOSINOPHILS 3 % (0-4); MYELOCYTES 1 % (0-0); NEUTROPHIL # MANUAL DIFF 8.8 TH/MM3 (1.8-7.7); POLYS (SEG NEUTROPHILS) 69 % (16-70); WBC DIFF SAMPLE 100
[2016-06-29 08:34] LABS: PLATELET ESTIMATE SMEAR NORMAL (NORMAL); PLATELET MORPHOLOGY NORMAL (NORMAL); POLYCHROMASIA 2.2 % (0.0-1.9); SCAN/DIFF FINAL DIFF MANUAL
[2016-06-29] MEDS: SODIUM CHLORIDE 0.9% FLUSH 5 ML FLUSH IV FLUSH SCH ×2 (09:00→21:57)
[2016-06-29] MEDS: POVIDONE IODINE 10% SOLN 480 ML BTL TOPICAL SCH ×2 (09:00→21:00)
[2016-06-29] MEDS: FAMOTIDINE 20 MG TAB NG SCH ×2 (09:13→21:57)
[2016-06-29] MEDS: MODAFINIL 200 MG TAB PO SCH (09:14)
--- NOTE | 2016-06-29 09:46 | HHI.PR ---
Subjective Remarks Follow up fever, UTI. Per nursing, the patient's secretions are thinning. No other events reported overnight. Objective Vitals Vital Signs Date Time Temp Pulse Resp B/P Pulse Ox O2 Delivery O2 Flow Rate FiO2 06/29/16 09:11 T-Piece 6.00 28 06/29/16 09:10 97 T-piece 6.00 40 06/29/16 08:29 98.9 98 20 109/52 96 06/29/16 04:00 100.0 95 20 115/62 97 06/29/16 00:00 99.6 87 20 137/64 97 06/28/16 20:00 101.7 117 22 136/63 97 06/28/16 18:04 92 T-piece 6.00 40 06/28/16 14:30 97 T-piece 40 06/28/16 11:45 100.0 105 20 130/53 98 I/O 06/28/16 06/28/16 06/28/16 06/29/16 06/29/16 06/29/16 07:00 15:00 23:00 07:00 15:00 23:00 Intake Total 0 ml Output Total 400 ml 400 ml 400 ml 300 ml Balance -400 ml -400 ml -400 ml -300 ml Intake Oral 0 ml Output Urine Total 300 ml 400 ml 400 ml 300 ml Stool Total 100 ml Result Diagram: 06/29/16 0708 06/29/16 0708 Imaging Last Impressions Chest X-Ray 06/27/16 0000 Signed Impressions: Service Date/Time: Monday, June 27, 2016 09:03 - CONCLUSION: No acute disease. There is no evidence of pneumonia. Dhruv Tenorio MD Abdomen/Pelvis CT 06/19/16 0000 Signed Impressions: Service Date/Time: Monday, June 20, 2016 02:30 - CONCLUSION: 1. Moderate stool throughout the colon. No obstruction or inflammatory changes. No small bowel distention. 2. Subacute appearing left hip fracture. 3. PEG tube without evidence of an acute complication. Gary Griffin MD Abdomen X-Ray 06/17/16 0000 Signed Impressions: Service Date/Time: Friday, June 17, 2016 11:51 - CONCLUSION: No abnormal dilatation of the large or small bowel to indicate an ileus. There is a gastrostomy tube in the stomach which appears to be somewhat distended with air. José Miguel J. Siragusa, MD Objective Remarks General: Elderly male in no acute distress. HEENT: Trach. Heart: Regular rate and rhythm. No murmur. Lungs: Coarse breath sounds bilaterally. Breathing is nonlabored. Abdomen: Soft, nontender, nondistended. Extremities: No lower extremity edema. Psych: Does not respond to verbal stimuli. Does not track or follow commands. Urinary Catheter: Yes Assessment to: Continue Mckeon insert reason: Prolonged Immobilization Vascular Central Line Catheter: No A/P Problem List: (1) UTI (urinary tract infection) ICD Code: N39.0 Status: Acute (2) Alzheimer's dementia ICD Code: F02.80 Status: Chronic (3) Malnourished ICD Code: E46 Status: Acute (4) Acute respiratory failure with hypoxia and hypercarbia ICD Code: J96.01 Status: Acute (5) Hypertension ICD Code: I10 Status: Chronic (6) GERD (gastroesophageal reflux disease) ICD Code: K21.9 Status: Chronic (7) Diarrhea ICD Code: R19.7 Status: Acute (8) Fever ICD Code: R50.9 Status: Acute Assessment and Plan 1. Alzheimer's dementia: Patient also with delirium, depression, anxiety. Continue Provigil. 2. Acute hypoxic and hypercarbic respiratory failure: Appreciate pulmonology recommendations. Continue bronchodilators as needed. Repeat chest x-ray is negative. On T piece. Levsin for secretions, which are improving. 3. Hypertension: Reasonably well controlled. 4. Anorexia, failure to thrive, moderate protein calorie malnutrition: Continue tube feeds with Glucerna. 5. GERD: Continue Pepcid. 6. Diarrhea: Likely secondary to laxatives. 7. UTI: Repeat UA is abnormal. Urine culture is pending. Start Rocephin. 8. Hyperglycemia of critical illness: Monitor Accu-Cheks and cover with sliding scale insulin. 9. DVT prophylaxis: Heparin. 10. Bacteremia: Continue antibiotics. Appreciate infectious disease recommendations. Blood culture positive for staph epidermidis, probable contaminant. Discharge Planning Awaiting placement. Case management assisting with discharge planning. Zac Dolan MD Jun 29, 2016 09:46
[2016-06-29] MEDS: cefTRIAXone INJ 2,000 MG in SODIUM CHLORIDE 0.9% INJ 100 ML IV SCH (10:48)
--- NOTE | 2016-06-29 16:32 | HHI.PR ---
Subjective Remarks 80 YOmale with Dementia, RF,Trach Pt aphasic Tolerates TF On Trach collar has Positive Bc, on Zosyn and Rocephin Has lot of thick tracheal secretions Needs frequent suctions Objective Vital Signs Vital Signs Date Time Temp Pulse Resp B/P Pulse Ox O2 Delivery O2 Flow Rate FiO2 06/29/16 15:57 98.0 97 20 119/55 97 06/29/16 12:25 100.4 93 22 120/86 96 06/29/16 09:11 T-Piece 6.00 28 06/29/16 09:10 97 T-piece 6.00 40 06/29/16 08:29 98.9 98 20 109/52 96 06/29/16 04:00 100.0 95 20 115/62 97 06/29/16 00:00 99.6 87 20 137/64 97 06/28/16 20:00 101.7 117 22 136/63 97 06/28/16 18:04 92 T-piece 6.00 40 I/O 06/28/16 06/28/16 06/28/16 06/29/16 06/29/16 06/29/16 07:00 15:00 23:00 07:00 15:00 23:00 Intake Total 0 ml Output Total 400 ml 400 ml 400 ml 300 ml Balance -400 ml -400 ml -400 ml -300 ml Intake Oral 0 ml Output Urine Total 300 ml 400 ml 400 ml 300 ml Stool Total 100 ml Result Diagram: 06/29/16 0708 06/29/16 0708 Objective Remarks GENERAL: Elderly frail male, mild sob SKIN: Warm and dry. HEAD: Normocephalic. EYES: No scleral icterus. No injection or drainage. NECK: Supple, trachea midline. No JVD or lymphadenopathy. CARDIOVASCULAR: Regular rate and rhythm without murmurs, gallops, or rubs. RESPIRATORY: Breath sounds equal bilaterally. No accessory muscle use. GASTROINTESTINAL: Abdomen soft, non-tender, nondistended. MUSCULOSKELETAL: No cyanosis, or edema. BACK: Nontender without obvious deformity. No CVA tenderness. A/P Assessment and Plan RF,s/p Trach Aphasia Dysphagia Dementia PLAN: Trach care Aerosol nebs TF DW RN at BS. Abx Rocephin and Zosyn Tracheal suction Levsin Silverio William MD Jun 29, 2016 16:32
[2016-06-30] VITALS (9 sets, daily range): BP systolic 130–134; BP diastolic 58–68; PULSE 76–112; RESP 18–22; TEMP 98.2–100; O2SAT 92–100
[2016-06-30] MEDS: LOW DOSE INSULIN NOVOLOG SUPPLEMENTAL SCALE SQ SCH ×5 (00:28→23:42)
[2016-06-30] MEDS: RESP: ALBUTEROL 2.5 MG/IPRATROPIUM 0.5 MG NEB (PRN) INH (04:08)
[2016-06-30] MEDS: FREE WATER G-TUBE SCH ×5 (06:00→23:27)
[2016-06-30] MEDS: PIPERACIL-TAZO 4.5 GM PREMIX 100 ML IV SCH ×3 (06:05→13:30)
[2016-06-30] MEDS: HEPARIN SODIUM - SQ 10,000 UNITS/ML VIAL SQ SCH ×3 (06:06→23:27)
[2016-06-30] MEDS: SODIUM CHLORIDE 0.9% FLUSH 5 ML FLUSH IV FLUSH SCH ×2 (08:28→23:33)
[2016-06-30] MEDS: HYOSCYAMINE 0.125 MG TAB PO PRN (08:29)
[2016-06-30] MEDS: MODAFINIL 200 MG TAB PO SCH (08:29)
[2016-06-30] MEDS: FAMOTIDINE 20 MG TAB NG SCH ×2 (08:29→23:26)
[2016-06-30] MEDS: POVIDONE IODINE 10% SOLN 480 ML BTL TOPICAL SCH ×2 (08:30→23:33)
--- NOTE | 2016-06-30 11:28 | HHI.PR ---
Subjective Remarks Follow up fever, positive sputum culture. Patient remains nonverbal and does not follow commands. No other events reported by nursing. Objective Vitals Vital Signs Date Time Temp Pulse Resp B/P Pulse Ox O2 Delivery O2 Flow Rate FiO2 06/30/16 08:00 99.2 108 20 134/68 97 06/30/16 05:30 100.0 112 22 130/67 96 06/30/16 04:19 95 T-piece 40 06/30/16 00:32 98.9 88 18 130/58 97 06/29/16 21:22 100.1 99 20 130/74 96 06/29/16 20:00 T-Piece 6.00 28 06/29/16 15:57 98.0 97 20 119/55 97 06/29/16 12:25 100.4 93 22 120/86 96 I/O 06/29/16 06/29/16 06/29/16 06/30/16 06/30/16 06/30/16 07:00 15:00 23:00 07:00 15:00 23:00 Output Total 300 ml 350 ml 570 ml Balance -300 ml -350 ml -570 ml Output Urine Total 300 ml 350 ml 570 ml Result Diagram: 06/29/16 0708 06/29/16 0708 Imaging Last Impressions Chest X-Ray 06/27/16 0000 Signed Impressions: Service Date/Time: Monday, June 27, 2016 09:03 - CONCLUSION: No acute disease. There is no evidence of pneumonia. Dhruv Tenorio MD Abdomen/Pelvis CT 06/19/16 0000 Signed Impressions: Service Date/Time: Monday, June 20, 2016 02:30 - CONCLUSION: 1. Moderate stool throughout the colon. No obstruction or inflammatory changes. No small bowel distention. 2. Subacute appearing left hip fracture. 3. PEG tube without evidence of an acute complication. Gary Griffin MD Abdomen X-Ray 06/17/16 0000 Signed Impressions: Service Date/Time: Friday, June 17, 2016 11:51 - CONCLUSION: No abnormal dilatation of the large or small bowel to indicate an ileus. There is a gastrostomy tube in the stomach which appears to be somewhat distended with air. José Miguel Celis MD Objective Remarks General: Elderly male in no acute distress. HEENT: Trach. Heart: Regular rate and rhythm. No murmur. Lungs: Coarse breath sounds bilaterally. Breathing is nonlabored. Abdomen: Soft, nontender, nondistended. Extremities: No lower extremity edema. Psych: Does not respond to verbal stimuli. Does not track or follow commands. Urinary Catheter: Yes Vascular Central Line Catheter: No A/P Problem List: (1) UTI (urinary tract infection) ICD Code: N39.0 Status: Acute (2) Alzheimer's dementia ICD Code: F02.80 Status: Chronic (3) Malnourished ICD Code: E46 Status: Acute (4) Acute respiratory failure with hypoxia and hypercarbia ICD Code: J96.01 Status: Acute (5) Hypertension ICD Code: I10 Status: Chronic (6) GERD (gastroesophageal reflux disease) ICD Code: K21.9 Status: Chronic (7) Diarrhea ICD Code: R19.7 Status: Acute (8) Fever ICD Code: R50.9 Status: Acute Assessment and Plan 1. Alzheimer's dementia: Patient also with delirium, depression, anxiety. Continue Provigil. 2. Acute hypoxic and hypercarbic respiratory failure: Appreciate pulmonology recommendations. Continue bronchodilators as needed. Repeat chest x-ray is negative. On T piece. Levsin for secretions, which are improving. Sputum culture growing Klebsiella pneumoniae and MRSA. Droplet/contact isolation. Appreciate ID recommendations regarding antibiotics. 3. Hypertension: Reasonably well controlled. 4. Anorexia, failure to thrive, moderate protein calorie malnutrition: Continue tube feeds with Glucerna. 5. GERD: Continue Pepcid. 6. Diarrhea: Likely secondary to laxatives. 7. UTI: Repeat UA is abnormal. Urine culture is pending. Start Rocephin. 8. Hyperglycemia of critical illness: Monitor Accu-Cheks and cover with sliding scale insulin. 9. DVT prophylaxis: Heparin. 10. Bacteremia: Continue antibiotics. Appreciate infectious disease recommendations. Blood culture positive for staph epidermidis, probable contaminant. Discharge Planning Awaiting placement. Case management assisting with discharge planning. Zac Dolan MD Jun 30, 2016 11:28
--- NOTE | 2016-06-30 17:25 | HHI.IDPN ---
Subjective Subjective Remarks Chart reviewed events noted Pt is of vent , transferred to floor He is on Tpiece Low grade fever in the last 24 hrs now is afebrile tolerating CPAP Growing MRSA and Kleb pneumo R to zosyn in sputum Staph epi in blood clx, 1/4 C. glabrata in urine Antibiotics zosyn Past Medical History Alzheimer's dementia, anxiety, BPH and HNT Allergies: Coded Allergies: No Known Allergies (Unverified , 01/04/16) Objective . Vital Signs Date Time Temp Pulse Resp B/P Pulse Ox O2 Delivery O2 Flow Rate FiO2 06/30/16 16:00 98.9 104 20 130/64 98 06/30/16 12:13 92 T-piece 40 06/30/16 12:00 99.6 99 22 131/61 100 06/30/16 12:00 100 T-Piece 6.00 28 06/30/16 08:00 99.2 108 20 134/68 97 06/30/16 05:30 100.0 112 22 130/67 96 06/30/16 04:19 95 T-piece 40 06/30/16 00:32 98.9 88 18 130/58 97 06/29/16 21:22 100.1 99 20 130/74 96 06/29/16 20:00 T-Piece 6.00 28 06/29/16 06/29/16 06/30/16 15:00 23:00 07:00 Output Total 350 ml 570 ml Balance -350 ml -570 ml Output Urine Total 350 ml 570 ml . Laboratory Tests Test 06/29/16 07:08 White Blood Count 11.0 TH/MM3 Red Blood Count 3.39 MIL/MM3 Hemoglobin 9.3 GM/DL Hematocrit 27.8 % Mean Corpuscular Volume 82.1 FL Mean Corpuscular Hemoglobin 27.3 PG Mean Corpuscular Hemoglobin 33.3 % Concent Red Cell Distribution Width 16.9 % Platelet Count 320 TH/MM3 Mean Platelet Volume 7.2 FL Neutrophils (%) (Auto) 76.6 % Lymphocytes (%) (Auto) 11.9 % Monocytes (%) (Auto) 8.1 % Eosinophils (%) (Auto) 2.4 % Basophils (%) (Auto) 1.0 % Neutrophils # (Auto) 8.4 TH/MM3 Lymphocytes # (Auto) 1.3 TH/MM3 Monocytes # (Auto) 0.9 TH/MM3 Eosinophils # (Auto) 0.3 TH/MM3 Basophils # (Auto) 0.1 TH/MM3 CBC Comment AUTO DIFF Differential Total Cells 100 Counted Neutrophils % (Manual) 69 % Band Neutrophils % 10 % Lymphocytes % 12 % Monocytes % 3 % Eosinophils % 3 % Basophils % 2 % Neutrophils # (Manual) 8.8 TH/MM3 Myelocytes 1 % Nucleated Red Blood Cells 1 /100 WBC Differential Comment FINAL DIFF MANUAL Platelet Estimate NORMAL Platelet Morphology Comment NORMAL Polychromasia 2.2 % Laboratory Tests Test 06/29/16 07:08 Sodium Level 135 MEQ/L Potassium Level 3.9 MEQ/L Chloride Level 98 MEQ/L Carbon Dioxide Level 25.8 MEQ/L Anion Gap 11 MEQ/L Blood Urea Nitrogen 15 MG/DL Creatinine 0.91 MG/DL Estimat Glomerular Filtration 80 ML/MIN Rate Random Glucose 232 MG/DL Calcium Level 8.9 MG/DL Microbiology Date/Time Procedure Status Source Growth 06/28/16 06:00 Urine Culture - Final Complete Urine Catheterized Urine Prachi Glabrata 06/28/16 14:20 Gram Stain - Final Resulted Sputum Endotracheal 06/28/16 14:20 Sputum Culture - Preliminary Resulted Klebsiella Pneumoniae S. Aureus Mrsa Imaging Last Impressions Chest X-Ray 06/27/16 0000 Signed Impressions: Service Date/Time: Monday, June 27, 2016 09:03 - CONCLUSION: No acute disease. There is no evidence of pneumonia. Dhruv Tenorio MD Abdomen/Pelvis CT 06/19/16 0000 Signed Impressions: Service Date/Time: Monday, June 20, 2016 02:30 - CONCLUSION: 1. Moderate stool throughout the colon. No obstruction or inflammatory changes. No small bowel distention. 2. Subacute appearing left hip fracture. 3. PEG tube without evidence of an acute complication. Gary Griffin MD Abdomen X-Ray 06/17/16 0000 Signed Impressions: Service Date/Time: Friday, June 17, 2016 11:51 - CONCLUSION: No abnormal dilatation of the large or small bowel to indicate an ileus. There is a gastrostomy tube in the stomach which appears to be somewhat distended with air. José Miguel Celis MD Physical Exam CONSTITUTIONAL/GENERAL: This is an adequately nourished patient, unresponsive SKIN: No jaundice, rashes, or lesions. Skin temperature appropriate. Not diaphoretic. EYES: Pupils equal and round and reactive. No scleral icterus. No injection or drainage. Fundi not examined. ENT: Nose without bleeding or purulent drainage. oral mucosae dry, without visible erythema, exudates, masses, or lesions. NECK: Trachea midline. Trach in palce CARDIOVASCULAR: Regular rate and rhythm without murmurs, gallops, or rubs. No JVD. Peripheral pulses symmetric. RESPIRATORY/CHEST: Symmetric, unlabored respirations. B/l rhonchi. GASTROINTESTINAL: Abdomen soft, non-tender, nondistended. No hepato-splenomegaly , or palpable masses. No guarding. Bowel sounds present. PEG in place GENITOURINARY: Without palpable bladder distension. Mckeon catheter in place with clear light yellow urine MUSCULOSKELETAL: Extremities without clubbing, cyanosis, contracted no sigmificant edema. NEUROLOGICAL: nonverbal; almost responsive; + spontaneous eye opening w/o tracking PSYCHIATRIC: unable to assess Assessment & Plan Remarks UTI, sepsis, resolved ARF, improved Acute VDRF -resolved ? PNA: MRSA, Rex R zosyn Satph epi bacteremia , low grade ? significanc e Persistent fever Leukocytosis, bandemia start vanco cresencio zosyn - CFTX for Elle Bartlett MD Jun 30, 2016 17:25
[2016-06-30] MEDS ORDERED: Vancomycin Consult Pharmacy 1 EA IV SCH (17:30)
--- NOTE | 2016-06-30 18:14 | HHI.PR ---
Subjective Remarks 80 YOmale with Dementia, RF,Trach Pt aphasic Tolerates TF On Trach collar has Positive Bc, on Zosyn and Rocephin Has lot of thick tracheal secretions Needs frequent suctions Sp growing MRSA and Klebsiella Objective Vital Signs Vital Signs Date Time Temp Pulse Resp B/P Pulse Ox O2 Delivery O2 Flow Rate FiO2 06/30/16 16:00 98.9 104 20 130/64 98 06/30/16 12:13 92 T-piece 40 06/30/16 12:00 99.6 99 22 131/61 100 06/30/16 12:00 100 T-Piece 6.00 28 06/30/16 08:00 99.2 108 20 134/68 97 06/30/16 05:30 100.0 112 22 130/67 96 06/30/16 04:19 95 T-piece 40 06/30/16 00:32 98.9 88 18 130/58 97 06/29/16 21:22 100.1 99 20 130/74 96 06/29/16 20:00 T-Piece 6.00 28 I/O 06/29/16 06/29/16 06/29/16 06/30/16 06/30/16 06/30/16 07:00 15:00 23:00 07:00 15:00 23:00 Output Total 300 ml 350 ml 570 ml Balance -300 ml -350 ml -570 ml Output Urine Total 300 ml 350 ml 570 ml Result Diagram: 06/29/16 0708 06/29/16 0708 Objective Remarks GENERAL: Elderly frail male, mild sob SKIN: Warm and dry. HEAD: Normocephalic. EYES: No scleral icterus. No injection or drainage. NECK: Supple, trachea midline. No JVD or lymphadenopathy. CARDIOVASCULAR: Regular rate and rhythm without murmurs, gallops, or rubs. RESPIRATORY: Breath sounds equal bilaterally. No accessory muscle use. GASTROINTESTINAL: Abdomen soft, non-tender, nondistended. MUSCULOSKELETAL: No cyanosis, or edema. BACK: Nontender without obvious deformity. No CVA tenderness. A/P Assessment and Plan RF,s/p Trach Aphasia Dysphagia Dementia PLAN: Trach care Aerosol nebs TF DW RN at BS. Tracheal suction Levsin qid Abx Vanco and Crocephin per ID Available prn over weekend. Silverio Reyes MD Jun 30, 2016 18:14
[2016-06-30] MEDS: cefTRIAXone INJ 2,000 MG in SODIUM CHLORIDE 0.9% INJ 100 ML IV SCH (23:25)
[2016-06-30] MEDS: CHLORHEXIDINE GLUCONATE 2 % 1 PACK (2 CLOTHS) TOP SCH (23:28)
[2016-07-01] VITALS (9 sets, daily range): BP systolic 118–137; BP diastolic 57–80; PULSE 83–94; RESP 18–20; TEMP 97.5–99.6; O2SAT 93–99
[2016-07-01] MEDS: HEPARIN SODIUM - SQ 10,000 UNITS/ML VIAL SQ SCH ×3 (05:20→22:58)
[2016-07-01] MEDS: FREE WATER G-TUBE SCH ×3 (05:20→18:00)
[2016-07-01] MEDS: LOW DOSE INSULIN NOVOLOG SUPPLEMENTAL SCALE SQ SCH ×3 (05:28→18:09)
[2016-07-01] MEDS: RESP: ALBUTEROL 2.5 MG/IPRATROPIUM 0.5 MG NEB (PRN) INH (06:06)
[2016-07-01] MEDS: MODAFINIL 200 MG TAB PO SCH (08:09)
[2016-07-01] MEDS: FAMOTIDINE 20 MG TAB NG SCH ×2 (08:09→22:59)
[2016-07-01] MEDS: POVIDONE IODINE 10% SOLN 480 ML BTL TOPICAL SCH ×2 (08:10→21:00)
[2016-07-01] MEDS: SODIUM CHLORIDE 0.9% FLUSH 5 ML FLUSH IV FLUSH SCH (08:30)
[2016-07-01 10:21] LABS: POTASSIUM 4.7 MEQ/L (3.5-5.1)
[2016-07-01 10:45] LABS: AUTOMATED NEUTROPHIL # 8.1 TH/MM3 (1.8-7.7); BASOPHIL # 0.1 TH/MM3 (0-0.2); BASOPHIL % 1.3 % (0.0-2.0); EOSINOPHIL # 0.5 TH/MM3 (0-0.4); EOSINOPHIL % 4.3 % (0.0-4.0); HEMATOCRIT 26.1 % (39.0-51.0); LYMPH % 13.9 % (9.0-44.0); LYMPHOCYTE # 1.5 TH/MM3 (1.0-4.8); MEAN CELL VOLUME 82.9 FL (80.0-100.0); MEAN CORPUSCULAR HEMOGLOBIN 27.9 PG (27.0-34.0); MEAN CORPUSCULAR HGB CONC 33.6 % (32.0-36.0); NEUT % 74.5 % (16.0-70.0); PLATELET COUNT 383 TH/MM3 (150-450); RED BLOOD COUNT 3.15 MIL/MM3 (4.50-5.90); RED CELL DISTRIBUTION WIDTH 16.9 % (11.6-17.2); WHITE BLOOD COUNT 10.9 TH/MM3 (4.0-11.0)
[2016-07-01] MEDS ORDERED: VANCOMYCIN INJ 1,250 MG in SODIUM CHLOR 0.9% 250 ML INJ 250 ML IV ONE (10:45)
[2016-07-01 10:59] LABS: HEMO FLAGS AUTO DIFF
[2016-07-01 11:42] LABS: BANDS 6 % (0-6); BASOPHILS 1 % (0-2); EOSINOPHILS 7 % (0-4); METAMYELOCYTES 1 % (0-1); MYELOCYTES 1 % (0-0); NEUTROPHIL # MANUAL DIFF 8.7 TH/MM3 (1.8-7.7); PLATELET ESTIMATE SMEAR NORMAL (NORMAL); PLATELET MORPHOLOGY NORMAL (NORMAL); POLYCHROMASIA 2.8 % (0.0-1.9); POLYS (SEG NEUTROPHILS) 72 % (16-70); WBC DIFF SAMPLE 100
[2016-07-01 11:43] LABS: SCAN/DIFF FINAL DIFF MANUAL
--- NOTE | 2016-07-01 14:48 | HHI.PR ---
Subjective Remarks Follow up fever, positive sputum culture. Per nursing, tube feeds are on hold due to increased residual. No other events reported by nursing. Objective Vitals Vital Signs Date Time Temp Pulse Resp B/P Pulse Ox O2 Delivery O2 Flow Rate FiO2 07/01/16 12:44 97.5 91 20 132/64 98 07/01/16 10:25 96 T-piece 40 07/01/16 08:28 97.7 92 20 137/63 99 07/01/16 06:16 93 T-piece 40 07/01/16 04:20 99.2 94 18 128/80 93 07/01/16 01:00 98.3 83 20 118/58 99 06/30/16 20:16 98.2 76 18 134/63 100 06/30/16 18:31 98 T-piece 6.00 40 06/30/16 16:00 98.9 104 20 130/64 98 I/O 06/30/16 06/30/16 06/30/16 07/01/16 07/01/16 07/01/16 07:00 15:00 23:00 07:00 15:00 23:00 Output Total 570 ml 675 ml Balance -570 ml -675 ml Output Urine Total 570 ml 675 ml Result Diagram: 07/01/16 1019 07/01/16 0858 Imaging Last Impressions Chest X-Ray 06/27/16 0000 Signed Impressions: Service Date/Time: Monday, June 27, 2016 09:03 - CONCLUSION: No acute disease. There is no evidence of pneumonia. Dhruv Tenorio MD Abdomen/Pelvis CT 06/19/16 0000 Signed Impressions: Service Date/Time: Monday, June 20, 2016 02:30 - CONCLUSION: 1. Moderate stool throughout the colon. No obstruction or inflammatory changes. No small bowel distention. 2. Subacute appearing left hip fracture. 3. PEG tube without evidence of an acute complication. Gary Griffin MD Abdomen X-Ray 06/17/16 0000 Signed Impressions: Service Date/Time: Friday, June 17, 2016 11:51 - CONCLUSION: No abnormal dilatation of the large or small bowel to indicate an ileus. There is a gastrostomy tube in the stomach which appears to be somewhat distended with air. José Miguel Celis MD Objective Remarks General: Elderly male in no acute distress. HEENT: Trach. Heart: Regular rate and rhythm. No murmur. Lungs: Coarse breath sounds bilaterally. Breathing is nonlabored. Abdomen: Soft, nontender, nondistended. Extremities: No lower extremity edema. Psych: Does not respond to verbal stimuli. Does not track or follow commands. Urinary Catheter: Yes Assessment to: Continue Mckeon insert reason: Prolonged Immobilization Vascular Central Line Catheter: No A/P Problem List: (1) UTI (urinary tract infection) ICD Code: N39.0 Status: Acute (2) Alzheimer's dementia ICD Code: F02.80 Status: Chronic (3) Malnourished ICD Code: E46 Status: Acute (4) Acute respiratory failure with hypoxia and hypercarbia ICD Code: J96.01 Status: Acute (5) Hypertension ICD Code: I10 Status: Chronic (6) GERD (gastroesophageal reflux disease) ICD Code: K21.9 Status: Chronic (7) Diarrhea ICD Code: R19.7 Status: Acute (8) Fever ICD Code: R50.9 Status: Acute Assessment and Plan Reviewed/updated 07/01/16. Tube feeds on hold for increased residual. No other changes. 1. Alzheimer's dementia: Patient also with delirium, depression, anxiety. Continue Provigil. 2. Acute hypoxic and hypercarbic respiratory failure: Appreciate pulmonology recommendations. Continue bronchodilators as needed. Repeat chest x-ray is negative. On T piece. Levsin for secretions, which are improving. Sputum culture growing Klebsiella pneumoniae and MRSA. Droplet/contact isolation. Appreciate ID recommendations regarding antibiotics. 3. Hypertension: Reasonably well controlled. 4. Anorexia, failure to thrive, moderate protein calorie malnutrition: Continue tube feeds with Glucerna. 5. GERD: Continue Pepcid. 6. Diarrhea: Likely secondary to laxatives. 7. UTI: Repeat UA is abnormal. Urine culture is growing Prachi. Add Diflucan. 8. Hyperglycemia of critical illness: Monitor Accu-Cheks and cover with sliding scale insulin. 9. DVT prophylaxis: Heparin. 10. Bacteremia: Continue antibiotics. Appreciate infectious disease recommendations. Blood culture positive for staph epidermidis, probable contaminant. Discharge Planning Awaiting placement. Case management assisting with discharge planning. Zac Dolan MD Jul 01, 2016 14:48
[2016-07-01] MEDS: FLUCONAZOLE 100 MG PREMIX BAG 50 ML IV SCH (15:41)
[2016-07-01] MEDS: ACETAMINOPHEN 325 MG TAB PO PRN (22:58)
[2016-07-01] MEDS: cefTRIAXone INJ 2,000 MG in SODIUM CHLORIDE 0.9% INJ 100 ML IV SCH (22:59)
[2016-07-02] VITALS (8 sets, daily range): BP systolic 107–150; BP diastolic 54–76; PULSE 72–88; RESP 18–26; TEMP 96.9–99.2; O2SAT 93–100
[2016-07-02] MEDS: SODIUM CHLORIDE 0.9% FLUSH 5 ML FLUSH IV FLUSH SCH ×3 (00:04→23:41)
[2016-07-02] MEDS: CHLORHEXIDINE GLUCONATE 2 % 1 PACK (2 CLOTHS) TOP SCH (03:40)
[2016-07-02] MEDS: VANCOMYCIN 1,500 MG/NS 500 ML IV SCH ×4 (04:59→23:40)
[2016-07-02] MEDS: FREE WATER G-TUBE SCH ×5 (05:00→23:40)
[2016-07-02] MEDS: HEPARIN SODIUM - SQ 10,000 UNITS/ML VIAL SQ SCH ×3 (05:00→23:40)
[2016-07-02] MEDS: SODIUM CHLORIDE 0.9% FLUSH 5 ML FLUSH IV FLUSH PRN (05:00)
[2016-07-02] MEDS: LOW DOSE INSULIN NOVOLOG SUPPLEMENTAL SCALE SQ SCH ×4 (06:00→18:30)
[2016-07-02] MEDS: POVIDONE IODINE 10% SOLN 480 ML BTL TOPICAL SCH ×2 (09:00→21:00)
[2016-07-02] MEDS: MODAFINIL 200 MG TAB PO SCH (09:23)
[2016-07-02] MEDS: FAMOTIDINE 20 MG TAB NG SCH ×2 (09:23→23:41)
--- NOTE | 2016-07-02 13:49 | HHI.PR ---
Subjective Remarks Follow up UTI, +sputum culture. Patient not tolerating tube feeds at 50ml/hr. Tube feeds held this morning and restarted at 1300 today. Objective Vitals Vital Signs Date Time Temp Pulse Resp B/P Pulse Ox O2 Delivery O2 Flow Rate FiO2 07/02/16 12:00 99.2 85 26 132/58 95 07/02/16 11:45 100 T-piece 6.00 35 07/02/16 09:17 100 T-Piece 6.00 28 07/02/16 08:00 98.6 86 18 150/59 93 07/02/16 04:42 97.8 88 18 116/54 97 07/02/16 01:54 100 T-Piece 6.00 28 07/02/16 00:55 98.9 84 18 107/55 99 07/01/16 20:55 99.6 91 18 124/57 98 07/01/16 20:10 98 T-piece 5.00 40 07/01/16 16:06 97.7 89 20 130/64 98 I/O 07/01/16 07/01/16 07/01/16 07/02/16 07/02/16 07/02/16 07:00 15:00 23:00 07:00 15:00 23:00 Output Total 675 ml 350 ml 850 ml Balance -675 ml -350 ml -850 ml Output Urine Total 675 ml 350 ml 850 ml Gastric Drainage Total 0 ml Result Diagram: 07/01/16 1019 07/01/16 0858 Imaging Last Impressions Chest X-Ray 06/27/16 0000 Signed Impressions: Service Date/Time: Monday, June 27, 2016 09:03 - CONCLUSION: No acute disease. There is no evidence of pneumonia. Dhruv Tenorio MD Abdomen/Pelvis CT 06/19/16 0000 Signed Impressions: Service Date/Time: Monday, June 20, 2016 02:30 - CONCLUSION: 1. Moderate stool throughout the colon. No obstruction or inflammatory changes. No small bowel distention. 2. Subacute appearing left hip fracture. 3. PEG tube without evidence of an acute complication. Gary Griffin MD Abdomen X-Ray 06/17/16 0000 Signed Impressions: Service Date/Time: Friday, June 17, 2016 11:51 - CONCLUSION: No abnormal dilatation of the large or small bowel to indicate an ileus. There is a gastrostomy tube in the stomach which appears to be somewhat distended with air. José Miguel Celis MD Objective Remarks General: Elderly male in no acute distress. HEENT: Trach. Heart: Regular rate and rhythm. No murmur. Lungs: Coarse breath sounds bilaterally. Breathing is nonlabored. Abdomen: Soft, nontender, nondistended. Extremities: No lower extremity edema. Psych: Does not respond to verbal stimuli. Does not track or follow commands. Urinary Catheter: Yes Assessment to: Continue Mckeon insert reason: Obstruction/Retention Vascular Central Line Catheter: No A/P Problem List: (1) UTI (urinary tract infection) ICD Code: N39.0 Status: Acute (2) Alzheimer's dementia ICD Code: F02.80 Status: Chronic (3) Malnourished ICD Code: E46 Status: Acute (4) Acute respiratory failure with hypoxia and hypercarbia ICD Code: J96.01 Status: Acute (5) Hypertension ICD Code: I10 Status: Chronic (6) GERD (gastroesophageal reflux disease) ICD Code: K21.9 Status: Chronic (7) Diarrhea ICD Code: R19.7 Status: Acute (8) Fever ICD Code: R50.9 Status: Acute Assessment and Plan Reviewed/updated 07/02/16. Will decrease rate of tube feeds. 1. Alzheimer's dementia: Patient also with delirium, depression, anxiety. Continue Provigil. 2. Acute hypoxic and hypercarbic respiratory failure: Appreciate pulmonology recommendations. Continue bronchodilators as needed. Repeat chest x-ray is negative. On T piece. Levsin for secretions, which are improving. Sputum culture growing Klebsiella pneumoniae and MRSA. Droplet/contact isolation. Appreciate ID recommendations regarding antibiotics. 3. Hypertension: Reasonably well controlled. 4. Anorexia, failure to thrive, moderate protein calorie malnutrition: Continue tube feeds with Glucerna. 5. GERD: Continue Pepcid. 6. Diarrhea: Likely secondary to laxatives. 7. UTI: Repeat UA is abnormal. Urine culture is growing Prachi. Continue Diflucan. 8. Hyperglycemia of critical illness: Monitor Accu-Cheks and cover with sliding scale insulin. 9. DVT prophylaxis: Heparin. 10. Bacteremia: Continue antibiotics. Appreciate infectious disease recommendations. Blood culture positive for staph epidermidis, probable contaminant. Discharge Planning Awaiting placement. Case management assisting with discharge planning. Zac Dolan MD Jul 02, 2016 13:49
[2016-07-02] MEDS: FLUCONAZOLE 100 MG PREMIX BAG 50 ML IV SCH (15:15)
[2016-07-02] MEDS: cefTRIAXone INJ 2,000 MG in SODIUM CHLORIDE 0.9% INJ 100 ML IV SCH (23:41)
[2016-07-02] MEDS: ACETAMINOPHEN 325 MG TAB PO PRN (23:42)
[2016-07-03] VITALS (7 sets, daily range): BP systolic 98–136; BP diastolic 60–80; PULSE 83–97; RESP 14–20; TEMP 95.8–97.8; O2SAT 16–100
[2016-07-03] MEDS: CHLORHEXIDINE GLUCONATE 2 % 1 PACK (2 CLOTHS) TOP SCH (04:00)
[2016-07-03] MEDS: FREE WATER G-TUBE SCH ×3 (05:26→17:40)
[2016-07-03] MEDS: HEPARIN SODIUM - SQ 10,000 UNITS/ML VIAL SQ SCH ×3 (05:26→22:33)
[2016-07-03] MEDS: LOW DOSE INSULIN NOVOLOG SUPPLEMENTAL SCALE SQ SCH ×4 (05:34→17:53)
[2016-07-03 07:31] LABS: AUTOMATED NEUTROPHIL # 7.6 TH/MM3 (1.8-7.7); BASOPHIL # 0.1 TH/MM3 (0-0.2); BASOPHIL % 0.8 % (0.0-2.0); EOSINOPHIL # 0.4 TH/MM3 (0-0.4); EOSINOPHIL % 3.4 % (0.0-4.0); HEMATOCRIT 30.5 % (39.0-51.0); LYMPH % 21.1 % (9.0-44.0); LYMPHOCYTE # 2.3 TH/MM3 (1.0-4.8); MEAN CELL VOLUME 83.9 FL (80.0-100.0); MEAN CORPUSCULAR HEMOGLOBIN 26.8 PG (27.0-34.0); MEAN CORPUSCULAR HGB CONC 31.9 % (32.0-36.0); MONO % 6.1 % (0.0-8.0); NEUT % 68.6 % (16.0-70.0); PLATELET COUNT 402 TH/MM3 (150-450); RED BLOOD COUNT 3.63 MIL/MM3 (4.50-5.90); WHITE BLOOD COUNT 11.1 TH/MM3 (4.0-11.0)
[2016-07-03 07:39] LABS: HEMO FLAGS AUTO DIFF
[2016-07-03 07:56] LABS: BICARBONATE 22.8 MEQ/L (21.0-32.0)
[2016-07-03] MEDS: POVIDONE IODINE 10% SOLN 480 ML BTL TOPICAL SCH ×2 (09:00→22:33)
[2016-07-03 09:27] LABS: BANDS 1 % (0-6); EOSINOPHILS 4 % (0-4); METAMYELOCYTES 2 % (0-1); MYELOCYTES 2 % (0-0); NEUTROPHIL # MANUAL DIFF 8.7 TH/MM3 (1.8-7.7); PLATELET ESTIMATE SMEAR NORMAL (NORMAL); PLATELET MORPHOLOGY NORMAL (NORMAL); POLYS (SEG NEUTROPHILS) 73 % (16-70); SCAN/DIFF FINAL DIFF MANUAL; WBC DIFF SAMPLE 100
[2016-07-03] MEDS: HYOSCYAMINE 0.125 MG TAB PO PRN ×2 (09:40→17:40)
[2016-07-03] MEDS: FAMOTIDINE 20 MG TAB NG SCH ×2 (09:40→22:32)
[2016-07-03] MEDS: MODAFINIL 200 MG TAB PO SCH (09:40)
[2016-07-03] MEDS: SODIUM CHLORIDE 0.9% FLUSH 5 ML FLUSH IV FLUSH SCH ×2 (09:40→21:33)
--- NOTE | 2016-07-03 10:43 | HHI.PR ---
Subjective Remarks tube feedings- rate going on at 30 cc/hr appears comfortable at T piece at 6LPM minimal secretions- whitish Objective Vitals Vital Signs Date Time Temp Pulse Resp B/P Pulse Ox O2 Delivery O2 Flow Rate FiO2 07/03/16 08:00 96.4 95 17 136/63 100 07/03/16 07:41 97 T-piece 35 07/03/16 04:00 97.7 95 14 120/80 98 07/03/16 02:00 100 T-Piece 6.00 28 07/03/16 00:00 97.5 95 16 121/60 16 07/02/16 21:50 97 T-piece 35 07/02/16 20:00 98.7 87 20 130/55 98 07/02/16 16:00 99.0 87 24 133/60 94 07/02/16 12:00 99.2 85 26 132/58 95 07/02/16 11:45 100 T-piece 6.00 35 I/O 07/02/16 07/02/16 07/02/16 07/03/16 07/03/16 07/03/16 07:00 15:00 23:00 07:00 15:00 23:00 Output Total 850 ml 800 ml 650 ml Balance -850 ml -800 ml -650 ml Output Urine Total 850 ml 800 ml 650 ml Gastric Drainage Total 0 ml Result Diagram: 07/03/16 0658 07/03/16 0658 Imaging Last Impressions Chest X-Ray 06/27/16 0000 Signed Impressions: Service Date/Time: Monday, June 27, 2016 09:03 - CONCLUSION: No acute disease. There is no evidence of pneumonia. Dhruv Tenorio MD Abdomen/Pelvis CT 06/19/16 0000 Signed Impressions: Service Date/Time: Monday, June 20, 2016 02:30 - CONCLUSION: 1. Moderate stool throughout the colon. No obstruction or inflammatory changes. No small bowel distention. 2. Subacute appearing left hip fracture. 3. PEG tube without evidence of an acute complication. Gary Griffin MD Abdomen X-Ray 06/17/16 0000 Signed Impressions: Service Date/Time: Friday, June 17, 2016 11:51 - CONCLUSION: No abnormal dilatation of the large or small bowel to indicate an ileus. There is a gastrostomy tube in the stomach which appears to be somewhat distended with air. José Miguel Celis MD Objective Remarks no tracking, pupils equal tracheostomy in place lungs decreased breath sounds, no rales, no wheezes regular rhythm abdomen- PEG in place lennon in place, no scrotal edema no leg swelling moves all extremities to withdrawal Lennon insert reason: Prolonged Immobilization A/P Problem List: (1) UTI (urinary tract infection) ICD Code: N39.0 Status: Acute (2) Alzheimer's dementia ICD Code: F02.80 Status: Chronic (3) Malnourished ICD Code: E46 Status: Acute (4) Acute respiratory failure with hypoxia and hypercarbia ICD Code: J96.01 Status: Acute (5) Hypertension ICD Code: I10 Status: Chronic (6) GERD (gastroesophageal reflux disease) ICD Code: K21.9 Status: Chronic (7) Diarrhea ICD Code: R19.7 Status: Acute (8) Fever ICD Code: R50.9 Status: Acute Assessment and Plan Reviewed/updated 07/02/16. Will decrease rate of tube feeds. Alzheimer's dementia: Patient also with delirium, depression, anxiety. Continue Provigil. Chronic respiratory failure S/P tracheostomy- t piece 28%. Pulmonary ff. Continue bronchodilators as needed. Repeat chest x-ray is negative. Klebsiella/MRSA Pneumonia St. epidermidis- on blood culture- possibly contaminant On T piece. Levsin for secretions, which are improving. Sputum culture growing Klebsiella pneumoniae and MRSA. Droplet/contact isolation. On Ceftriaxone and vancomycin ID ff along with us Candiduria on IV fluconazole Hypertension: Reasonably well controlled. Anorexia, failure to thrive, moderate protein calorie malnutrition: Continue tube feeds with Glucerna.- monitor residuals GERD: Continue Pepcid. Diarrhea: monitor. c diff negative. start Lactinex Hyperglycemia of critical illness: Monitor Accu-Cheks and cover with sliding scale insulin. DVT prophylaxis: Heparin. Joslyn Crisostomo MD Jul 03, 2016 10:43 Joslyn Crisostomo MD Jul 03, 2016 10:43
[2016-07-03] MEDS: FLUCONAZOLE 100 MG PREMIX BAG 50 ML IV SCH (15:06)
[2016-07-03] MEDS ORDERED: PHARMACY ORDERED LAB XX ONE (16:45)
[2016-07-03] MEDS: VANCOMYCIN 1,500 MG/NS 500 ML IV SCH ×2 (17:40)
--- NOTE | 2016-07-03 20:38 | HHI.PR ---
Subjective Remarks 80 YOmale with Dementia, RF,Trach Pt aphasic Tolerates TF On Trach collar has Positive Bc, on Zosyn and Rocephin Needs frequent suctions Objective Vital Signs Vital Signs Date Time Temp Pulse Resp B/P Pulse Ox O2 Delivery O2 Flow Rate FiO2 07/03/16 15:44 97.8 83 20 127/65 100 07/03/16 12:27 95.8 90 18 136/64 100 07/03/16 08:00 96.4 95 17 136/63 100 07/03/16 07:41 97 T-piece 35 07/03/16 07:15 100 T-Piece 6.00 28 07/03/16 04:00 97.7 95 14 120/80 98 07/03/16 02:00 100 T-Piece 6.00 28 07/03/16 00:00 97.5 95 16 121/60 16 07/02/16 21:50 97 T-piece 35 I/O 07/02/16 07/02/16 07/02/16 07/03/16 07/03/16 07/03/16 07:00 15:00 23:00 07:00 15:00 23:00 Output Total 850 ml 800 ml 650 ml 600 ml 800 ml Balance -850 ml -800 ml -650 ml -600 ml -800 ml Output Urine Total 850 ml 800 ml 650 ml 800 ml Stool Total 600 ml Gastric Drainage Total 0 ml Result Diagram: 07/03/1658 07/03/16657 Objective Remarks GENERAL: Elderly frail male, mild sob SKIN: Warm and dry. HEAD: Normocephalic. EYES: No scleral icterus. No injection or drainage. NECK: Supple, trachea midline. No JVD or lymphadenopathy. CARDIOVASCULAR: Regular rate and rhythm without murmurs, gallops, or rubs. RESPIRATORY: Breath sounds equal bilaterally. No accessory muscle use. GASTROINTESTINAL: Abdomen soft, non-tender, nondistended. MUSCULOSKELETAL: No cyanosis, or edema. BACK: Nontender without obvious deformity. No CVA tenderness. A/P Assessment and Plan RF,s/p Trach Aphasia Dysphagia Dementia PLAN: Trach care Aerosol nebs TF DW RN at BS. Tracheal suction Levsin qid Abx Vanco and Rocephin per ID Silverio Reyes MD Jul 03, 2016 20:37
[2016-07-03] MEDS: cefTRIAXone INJ 2,000 MG in SODIUM CHLORIDE 0.9% INJ 100 ML IV SCH (22:32)
[2016-07-04] VITALS (7 sets, daily range): BP systolic 99–149; BP diastolic 59–80; PULSE 86–108; RESP 18–34; TEMP 97.1–98.7; O2SAT 93–100
[2016-07-04] MEDS: FREE WATER G-TUBE SCH ×4 (00:57→18:00)
[2016-07-04] MEDS: LOW DOSE INSULIN NOVOLOG SUPPLEMENTAL SCALE SQ SCH ×4 (00:57→18:34)
[2016-07-04] MEDS: CHLORHEXIDINE GLUCONATE 2 % 1 PACK (2 CLOTHS) TOP SCH (04:19)
[2016-07-04] MEDS: HEPARIN SODIUM - SQ 10,000 UNITS/ML VIAL SQ SCH ×3 (05:21→22:08)
[2016-07-04] MEDS: POVIDONE IODINE 10% SOLN 480 ML BTL TOPICAL SCH ×2 (09:00→22:08)
[2016-07-04] MEDS: FAMOTIDINE 20 MG TAB NG SCH ×2 (10:08→22:07)
[2016-07-04] MEDS: MODAFINIL 200 MG TAB PO SCH (10:08)
[2016-07-04] MEDS: SODIUM CHLORIDE 0.9% FLUSH 5 ML FLUSH IV FLUSH SCH ×2 (10:09→22:07)
--- NOTE | 2016-07-04 14:25 | HHI.PR ---
Subjective Remarks eyes open, not interactive cough- bringing up whitish secretions- though tracheostomy no reported diarrhea- d/w staff nurse tolerating tube feedings Objective Vitals Vital Signs Date Time Temp Pulse Resp B/P Pulse Ox O2 Delivery O2 Flow Rate FiO2 07/04/16 12:00 98.4 88 20 126/63 99 07/04/16 10:16 99 T-Piece 6.00 28 07/04/16 08:15 98.5 95 20 138/59 98 07/04/16 04:00 97.3 108 34 149/80 100 07/04/16 04:00 97.3 108 34 149/80 100 07/04/16 00:00 98.7 99 18 99/80 98 07/03/16 20:45 99 T-Piece 6.00 28 07/03/16 20:00 96.5 97 18 98/71 100 07/03/16 15:44 97.8 83 20 127/65 100 I/O 07/03/16 07/03/16 07/03/16 07/04/16 07/04/16 07/04/16 07:00 15:00 23:00 07:00 15:00 23:00 Intake Total 1023 ml Output Total 600 ml 800 ml 350 ml 750 ml Balance -600 ml -800 ml -350 ml 273 ml Tube Feeding 1023 ml Output Urine Total 800 ml 350 ml 750 ml Stool Total 600 ml Result Diagram: 07/03/16 0658 07/03/16 0658 Imaging Last Impressions Chest X-Ray 06/27/16 0000 Signed Impressions: Service Date/Time: Monday, June 27, 2016 09:03 - CONCLUSION: No acute disease. There is no evidence of pneumonia. Dhruv Tenorio MD Abdomen/Pelvis CT 06/19/16 0000 Signed Impressions: Service Date/Time: Monday, June 20, 2016 02:30 - CONCLUSION: 1. Moderate stool throughout the colon. No obstruction or inflammatory changes. No small bowel distention. 2. Subacute appearing left hip fracture. 3. PEG tube without evidence of an acute complication. Gary Griffin MD Abdomen X-Ray 06/17/16 0000 Signed Impressions: Service Date/Time: Friday, June 17, 2016 11:51 - CONCLUSION: No abnormal dilatation of the large or small bowel to indicate an ileus. There is a gastrostomy tube in the stomach which appears to be somewhat distended with air. José Miguel Celis MD Objective Remarks no tracking, pupils equal tracheostomy in place lungs decreased breath sounds, no rales, no wheezes regular rhythm abdomen- PEG in place lennon in place, no scrotal edema no leg swelling moves all extremities to withdrawal A/P Problem List: (1) UTI (urinary tract infection) ICD Code: N39.0 Status: Acute (2) Alzheimer's dementia ICD Code: F02.80 Status: Chronic (3) Malnourished ICD Code: E46 Status: Acute (4) Acute respiratory failure with hypoxia and hypercarbia ICD Code: J96.01 Status: Acute (5) Hypertension ICD Code: I10 Status: Chronic (6) GERD (gastroesophageal reflux disease) ICD Code: K21.9 Status: Chronic (7) Diarrhea ICD Code: R19.7 Status: Acute (8) Fever ICD Code: R50.9 Status: Acute Assessment and Plan 80 years old male Alzheimer's dementia: Patient also with delirium, depression, anxiety. stable. Continue Provigil. chronic respiratory failure S/P tracheostomy- t p 28%. Pulmonary ff. Continue bronchodilators as needed. Repeat chest x-ray is negative. Klebsiella/MRSA Pneumonia St. epidermidis- on blood culture- possibly contaminant On T piece. Levsin for secretions, which are improving. Sputum culture growing Klebsiella pneumoniae and MRSA. Droplet/contact isolation. On Ceftriaxone and vancomycin. On fluconazole ID ff along with us Candiduria on Fluconazole Hypertension: Reasonably well controlled. Anorexia, failure to thrive, moderate protein calorie malnutrition: Continue tube feeds with Glucerna.- monitor residuals GERD: Continue Pepcid. Diarrhea: Improved monitor. c diff negative. on Lactinex Hyperglycemia of critical illness: Monitor Accu-Cheks and cover with sliding scale insulin. DVT prophylaxis: Heparin. Joslyn Crisostomo MD Jul 04, 2016 14:25 Joslyn Crisostomo MD Jul 04, 2016 14:25
[2016-07-04] MEDS: FLUCONAZOLE 100 MG PREMIX BAG 50 ML IV SCH (14:48)
--- NOTE | 2016-07-04 15:28 | HHI.HCPN ---
Reason for visit a. To assist with evaluation and management of symptoms including: debility and shortness of breath. b. To assist medical decision maker(s) with: better understanding of current medical conditions; weighing benefits/burdens of medical treatment options; making medical treatment decisions. . Subjective/Interval History Patient seen in his room. No family at bedside. Pt Awake, opening eyes, not tracking. Not following any commands. Patient s/p trach on 06/13. Currently on T collar, 6L. sputum culture on 06/28/16 growing Klebsiella and MRSA, urine culture 06/28/16 growing Prachi, blood culture 06/27/16 growing Staphylococcus epidermidis, however likely contaminated. Infectious disease has been consulted , currently on antibiotic and antifungal. Pulmonology continues to follow-up, secretions from tracheostomy improving. Chest x-ray 06/27/16 with no acute disease and no evidence of pneumonia. Last labs 07/03/16 showing WBC 11.1, Hgb 9.7, platelet count 402. NA 138, potassium 4, BUN/creatinine 9/0.70. Random glucose 152. Afebrile today, BP stable. . Family/friend interactions Telephone conversation with patient's son Winifred. Medical update provided. Reviewed current medical treatment and plan. Reviewed positive cultures and latest laboratory results. As per family, goal is for patient to return to [facility] for long-term care. Reviewed that facility will take patient once his oxygen requirement is less than 5 L. Reviewed that this may take a few days to accomplish. Son verbalized appreciation for my phone call and medical update. . Advance Directives Living Will: Never completed Health Care Surrogate: Never completed Durable Power of Tapper Hand: Never completed Advance Directive Specifics Health Care Surrogate(s): No HCS completed. As per [place] law, patient Kvng Amin is HCP. also elderly, relying on her sons Winifred and Milan to make healthcare decisions. Documented care wishes: No living will completed. . Significant change in goals: Full code. Continue aggressive care with the gol of returning patient to long- term care facility. . Objective Vital Signs Date Time Temp Pulse Resp B/P Pulse Ox O2 Delivery O2 Flow Rate FiO2 07/04/16 12:00 98.4 88 20 126/63 99 07/04/16 10:16 99 T-Piece 6.00 28 07/04/16 08:15 98.5 95 20 138/59 98 07/04/16 04:00 97.3 108 34 149/80 100 07/04/16 04:00 97.3 108 34 149/80 100 07/04/16 00:00 98.7 99 18 99/80 98 07/03/16 20:45 99 T-Piece 6.00 28 07/03/16 20:00 96.5 97 18 98/71 100 07/03/16 15:44 97.8 83 20 127/65 100 Intake & Output 07/04/16 07/04/16 07:00 19:00 Intake Total 1023 ml Output Total 350 ml 750 ml Balance -350 ml 273 ml Tube Feeding 1023 ml Output Urine Total 350 ml 750 ml Physical Exam CONSTITUTIONAL/GENERAL: This is a frail elderly man in no apparent distress. trach in place. TUBES/LINES/DRAINS: Trach, PEG, Mckeon cath. SCD's, PIV's. SKIN: No jaundice or rashes. Scattered ecchymoses on upper extremities. Skin temperature appropriate. Not diaphoretic. Suspected deep tissue ulcer to right inner heel. HEAD: Atraumatic. Normocephalic. EYES: Pupils equal and round and reactive. No injection or drainage. ENT: Unable to assess hearing. Nose without bleeding or purulent drainage. Unable to evaluate throat due to ETT. Small amounts of clear oral secretions. NECK: Trach in place. T-collar. CARDIOVASCULAR: Regular rate and rhythm without murmurs, gallops, or rubs. Weak pedal pulses bilat. RESPIRATORY/CHEST: Symmetric, unlabored respirations. clear, diminished. On trach collar. GASTROINTESTINAL: Abdomen firm, round, large. PEG tube in place. Bowel sounds present. TF on hold at this time. GENITOURINARY: Without palpable bladder distension. Mckeon catheter in place. MUSCULOSKELETAL: Edema to BUE. Bilateral knee contractures noted. NEUROLOGICAL: alert, eyes open. Not following any command. Non-verbal at baseline. PSYCHIATRIC: Unable to assess due to clinical condition. Appears calm. . Diagnostic Tests Laboratory Laboratory Tests Test 07/03/16 07/03/16 06:58 16:45 White Blood Count 11.1 TH/MM3 (4.0-11.0) Red Blood Count 3.63 MIL/MM3 (4.50-5.90) Hemoglobin 9.7 GM/DL (13.0-17.0) Hematocrit 30.5 % (39.0-51.0) Mean Corpuscular Volume 83.9 FL (80.0-100.0) Mean Corpuscular Hemoglobin 26.8 PG (27.0-34.0) Mean Corpuscular Hemoglobin 31.9 % Concent (32.0-36.0) Red Cell Distribution Width 17.0 % (11.6-17.2) Platelet Count 402 TH/MM3 (150-450) Mean Platelet Volume 6.9 FL (7.0-11.0) Neutrophils (%) (Auto) 68.6 % (16.0-70.0) Lymphocytes (%) (Auto) 21.1 % (9.0-44.0) Monocytes (%) (Auto) 6.1 % (0.0-8.0) Eosinophils (%) (Auto) 3.4 % (0.0-4.0) Basophils (%) (Auto) 0.8 % (0.0-2.0) Neutrophils # (Auto) 7.6 TH/MM3 (1.8-7.7) Lymphocytes # (Auto) 2.3 TH/MM3 (1.0-4.8) Monocytes # (Auto) 0.7 TH/MM3 (0-0.9) Eosinophils # (Auto) 0.4 TH/MM3 (0-0.4) Basophils # (Auto) 0.1 TH/MM3 (0-0.2) CBC Comment AUTO DIFF Differential Total Cells 100 Counted Neutrophils % (Manual) 73 % (16-70) Band Neutrophils % 1 % (0-6) Lymphocytes % 14 % (9-44) Monocytes % 4 % (0-8) Eosinophils % 4 % (0-4) Neutrophils # (Manual) 8.7 TH/MM3 (1.8-7.7) Metamyelocytes 2 % (0-1) Myelocytes 2 % (0-0) Differential Comment FINAL DIFF MANUAL Platelet Estimate NORMAL (NORMAL) Platelet Morphology Comment NORMAL (NORMAL) Polychromasia 2.0 % (0.0-1.9) Sodium Level 138 MEQ/L (136-145) Potassium Level 4.0 MEQ/L (3.5-5.1) Chloride Level 107 MEQ/L (98-107) Carbon Dioxide Level 22.8 MEQ/L (21.0-32.0) Anion Gap 8 MEQ/L (5-15) Blood Urea Nitrogen 9 MG/DL (7-18) Creatinine 0.70 MG/DL (0.60-1.30) Estimat Glomerular Filtration 108 ML/MIN Rate (>89) Random Glucose 152 MG/DL (74-106) Calcium Level 9.3 MG/DL (8.5-10.1) Vancomycin Level Trough 20.6 MCG/ML (5.0-10.0) Result Diagram: 07/03/1658 07/03/1658 Imaging Last Impressions Chest X-Ray 06/27/16 0000 Signed Impressions: Service Date/Time: Monday, June 27, 2016 09:03 - CONCLUSION: No acute disease. There is no evidence of pneumonia. Dhruv Tenorio MD Abdomen/Pelvis CT 06/19/16 0000 Signed Impressions: Service Date/Time: Monday, June 20, 2016 02:30 - CONCLUSION: 1. Moderate stool throughout the colon. No obstruction or inflammatory changes. No small bowel distention. 2. Subacute appearing left hip fracture. 3. PEG tube without evidence of an acute complication. Gary Griffin MD Abdomen X-Ray 06/17/16 0000 Signed Impressions: Service Date/Time: Friday, June 17, 2016 11:51 - CONCLUSION: No abnormal dilatation of the large or small bowel to indicate an ileus. There is a gastrostomy tube in the stomach which appears to be somewhat distended with air. José Miguel Celis MD Procedures * 06/13/16 -Trach placed. * 06/04/16 -Intubated. * 06/04/16 -PEG tube replaced. * 06/04/16 -Left subclavian central line placed. . Assessment and Plan Disease Oriented Problem List: (1) Severe sepsis with acute organ dysfunction (2) Acute respiratory failure (3) Alzheimer's dementia Symptom Scale: (1) Shortness of breath 0-10 Scale: Unable to quantify Comment: s/p trach. (2) Debility 0-10 Scale: Unable to quantify Comment: Progressive, secondary to severe dementia. Bedbound at baseline. (3) Pain 0-10 Scale: Unable to quantify Comment: history of chronic pain. Pertinent Non-Medical Issues Psychosocial: . Has 2 children. SNF resident. Spiritual: Not spiritual. Legal: No living will completed. Ethical issues impacting care: No living will completed. who is serving as HCP relies on sons for share decision-making. . Important Contacts Kvng Amin and son Winifred . . Prognosis Mr. Amin is an 80 y/o male with a medical history significant for severe Alzheimer's dementia, anxiety, BPH and HNT who is bedbound and non-verbal at baseline. Patient admitted on 06/04/16 secondary to septic shock and acute respiratory failure. Patient remains intubated on mechanical ventilation. Baseline with documented progressive physical and cognitive decline, now total care at [facility]. PEG placed on November secondary to dysphagia and failure to thrive , patient continued declining post PEG placement. Patient is at high risk for further complication, continued decline, and given his poor functional status and health at baseline. His prognosis is poor for an improved quality of life or long-term survival. . Code Status: Full Code Plan * FULL CODE * Patient incapacitated secondary to severe dementia. No HCS completed. As per [place] law, patient's Kvng Amin is healthcare proxy. also elderly , relying on her sons Winifred and Milan to make healthcare decisions. Recommend share decision-making with and sons. * Goals of care: 07/04/16- FULL CODE. Goals remain unchanged. Family wishing for continuation of aggressive care with the goal of returning patient to long- term care facility. Telephone call to pt's son Winifred for medical update. * Patient hospice appropriate; however, not in line with goals of care/family's wishes. FAST 7e at baseline, PPS 30% -PEG feeding. * Symptoms: shortness of breath, s/p trach. Tolerating O2 6L -goal to wean to 5L in order to be accepted back to long-term care facility. Debility: progressive secondary to severe dementia. Patient bedbound and total care at baseline. Pain, history of chronic pain. Morphine and Tylenol available as needed. * Palliative care contact information provided to patient's family. All questions were answered in great detail. * Palliative care to continue to f/y pt/family for further clarification of goals of care. . Time Spent Total Floor Time (mins): 42 (Total time to include review and summarization of medical records, physical exam, telephone conversation with patient's son. ) >50% Counseling/Coord of Care: Yes Attestation To help prompt me to consider important information that might be impacting today's encounter and assessment, information from prior notes written by myself or my colleagues may have been "brought forward" into today's note. My signature on this note, however, is an attestation that I personally performed the exam, history, and/or decision-making noted today, and, unless otherwise indicated, the interactions with patient, family, and staff as well as the review of records all occurred today. I also attest that the listed assessment and stated plan reflect my best clinical judgment today based on the combination of historical information, prior notes, and today's exam/ interactions. When time spent is documented, it refers only to time spent today by the signer, or if indicated, combined time spent today by collaborating physician/nurse practitioner. Charlotte Hall Jul 04, 2016 15:28
--- NOTE | 2016-07-04 18:48 | HHI.PR ---
Subjective Remarks 80 YOmale with Dementia, RF,Trach Pt aphasic Tolerates TF On Trach collar has Positive BC, on Zosyn and Rocephin Needs frequent suctions No fever Objective Vital Signs Vital Signs Date Time Temp Pulse Resp B/P Pulse Ox O2 Delivery O2 Flow Rate FiO2 07/04/16 16:52 98.3 92 20 137/69 98 07/04/16 16:20 98 T-piece 28 07/04/16 12:00 98.4 88 20 126/63 99 07/04/16 10:16 99 T-Piece 6.00 28 07/04/16 08:15 98.5 95 20 138/59 98 07/04/16 04:00 97.3 108 34 149/80 100 07/04/16 04:00 97.3 108 34 149/80 100 07/04/16 00:00 98.7 99 18 99/80 98 07/03/16 20:45 99 T-Piece 6.00 28 07/03/16 20:00 96.5 97 18 98/71 100 I/O 07/03/16 07/03/16 07/03/16 07/04/16 07/04/16 07/04/16 07:00 15:00 23:00 07:00 15:00 23:00 Intake Total 1023 ml Output Total 600 ml 800 ml 350 ml 750 ml Balance -600 ml -800 ml -350 ml 273 ml Tube Feeding 1023 ml Output Urine Total 800 ml 350 ml 750 ml Stool Total 600 ml # Bowel Movements 1 Result Diagram: 07/03/16 0658 07/03/1658 Objective Remarks GENERAL: Elderly frail male, mild sob SKIN: Warm and dry. HEAD: Normocephalic. EYES: No scleral icterus. No injection or drainage. NECK: Supple, trachea midline. No JVD or lymphadenopathy. CARDIOVASCULAR: Regular rate and rhythm without murmurs, gallops, or rubs. RESPIRATORY: Breath sounds equal bilaterally. No accessory muscle use. GASTROINTESTINAL: Abdomen soft, non-tender, nondistended. MUSCULOSKELETAL: No cyanosis, or edema. BACK: Nontender without obvious deformity. No CVA tenderness. A/P Assessment and Plan RF,s/p Trach Aphasia Dysphagia Dementia PLAN: Trach care Aerosol nebs TF DW RN at BS. Tracheal suction Levsin qid Abx Vanco and Rocephin per ID Stable on Trach collar Aneja,Silverio Dev MD Jul 04, 2016 18:47
[2016-07-04] MEDS: cefTRIAXone INJ 2,000 MG in SODIUM CHLORIDE 0.9% INJ 100 ML IV SCH (22:08)
[2016-07-04] MEDS: VANCOMYCIN 1,500 MG/NS 500 ML IV SCH ×2 (23:15)
[2016-07-05] VITALS (7 sets, daily range): BP systolic 99–135; BP diastolic 52–72; PULSE 86–98; RESP 20; TEMP 96.8–99.3; O2SAT 96–100
[2016-07-05] MEDS: LOW DOSE INSULIN NOVOLOG SUPPLEMENTAL SCALE SQ SCH ×4 (00:56→18:23)
[2016-07-05] MEDS: CHLORHEXIDINE GLUCONATE 2 % 1 PACK (2 CLOTHS) TOP SCH (04:00)
[2016-07-05] MEDS: HEPARIN SODIUM - SQ 10,000 UNITS/ML VIAL SQ SCH ×3 (05:32→21:59)
[2016-07-05] MEDS: FREE WATER G-TUBE SCH ×4 (05:32→18:00)
[2016-07-05] MEDS: POVIDONE IODINE 10% SOLN 480 ML BTL TOPICAL SCH ×2 (09:00→21:00)
[2016-07-05] MEDS: MODAFINIL 200 MG TAB PO SCH (09:44)
[2016-07-05] MEDS: FAMOTIDINE 20 MG TAB NG SCH ×2 (09:44→21:58)
[2016-07-05] MEDS: SODIUM CHLORIDE 0.9% FLUSH 5 ML FLUSH IV FLUSH SCH ×2 (09:44→21:58)
--- NOTE | 2016-07-05 10:25 | HHI.PR ---
Subjective Remarks tolerating tube feedingsnot in distress- secretions minimal on 28% t piece Objective Vitals Vital Signs Date Time Temp Pulse Resp B/P Pulse Ox O2 Delivery O2 Flow Rate FiO2 07/05/16 10:12 99 T-Piece 6.00 28 07/05/16 09:08 99.3 98 20 112/52 98 07/05/16 04:00 98.4 95 20 117/67 98 07/05/16 00:00 98.2 92 20 126/59 97 07/04/16 21:45 99 T-Piece 6.00 28 07/04/16 20:00 97.1 86 20 131/76 93 07/04/16 16:52 98.3 92 20 137/69 98 07/04/16 16:20 98 T-piece 28 07/04/16 12:00 98.4 88 20 126/63 99 I/O 07/04/16 07/04/16 07/04/16 07/05/16 07/05/16 07/05/16 07:00 15:00 23:00 07:00 15:00 23:00 Intake Total 1023 ml Output Total 350 ml 750 ml 600 ml 300 ml 600 ml Balance -350 ml 273 ml -600 ml -300 ml -600 ml Tube Feeding 1023 ml Output Urine Total 350 ml 750 ml 600 ml 300 ml 600 ml # Bowel Movements 2 1 Result Diagram: 07/03/16 0658 07/05/16 0730 Imaging Last Impressions Chest X-Ray 06/27/16 0000 Signed Impressions: Service Date/Time: Monday, June 27, 2016 09:03 - CONCLUSION: No acute disease. There is no evidence of pneumonia. Dhruv Tenorio MD Abdomen/Pelvis CT 06/19/16 0000 Signed Impressions: Service Date/Time: Monday, June 20, 2016 02:30 - CONCLUSION: 1. Moderate stool throughout the colon. No obstruction or inflammatory changes. No small bowel distention. 2. Subacute appearing left hip fracture. 3. PEG tube without evidence of an acute complication. Gary Griffin MD Abdomen X-Ray 06/17/16 0000 Signed Impressions: Service Date/Time: Friday, June 17, 2016 11:51 - CONCLUSION: No abnormal dilatation of the large or small bowel to indicate an ileus. There is a gastrostomy tube in the stomach which appears to be somewhat distended with air. José Miguel Celis MD Objective Remarks no tracking, pupils equal tracheostomy in place lungs decreased breath sounds, no rales, no wheezes regular rhythm abdomen- PEG in place lennon in place, no scrotal edema no leg swelling moves all extremities to withdrawal Urinary Catheter: Yes Lennon insert reason: Prolonged Immobilization Date of Insertion: Jul 05, 2016 A/P Problem List: (1) UTI (urinary tract infection) ICD Code: N39.0 Status: Acute (2) Alzheimer's dementia ICD Code: F02.80 Status: Chronic (3) Malnourished ICD Code: E46 Status: Acute (4) Acute respiratory failure with hypoxia and hypercarbia ICD Code: J96.01 Status: Acute (5) Hypertension ICD Code: I10 Status: Chronic (6) GERD (gastroesophageal reflux disease) ICD Code: K21.9 Status: Chronic (7) Diarrhea ICD Code: R19.7 Status: Acute (8) Fever ICD Code: R50.9 Status: Acute Assessment and Plan Reviewed/updated 07/02/16. Will decrease rate of tube feeds. Alzheimer's dementia: Patient also with delirium, depression, anxiety. Continue Provigil. chronic respiratory failure S/P tracheostomy- 28%. Pulmonary ff. Continue bronchodilators as needed. Repeat chest x-ray is negative. Klebsiella/MRSA Pneumonia St. epidermidis- on blood culture- possibly contaminant On T piece. Levsin for secretions, Sputum culture growing Klebsiella pneumoniae and MRSA. Droplet/contact isolation. On Ceftriaxone and vancomycin ID ff along with us Candiduria on IV fluconazole- change lennon today 07/05 and send new specimen for UA Hypertension: Reasonably well controlled. Anorexia, failure to thrive, moderate protein calorie malnutrition: Continue tube feeds with Glucerna.- monitor residuals GERD: Continue Pepcid. Diarrhea: monitor. c diff negative. on Lactinex Hyperglycemia of critical illness: Monitor Accu-Cheks and cover with sliding scale insulin. DVT prophylaxis: Heparin. Joslyn Crisostomo MD Jul 05, 2016 10:25 Joslyn Crisostomo MD Jul 05, 2016 10:25
[2016-07-05] MEDS: FLUCONAZOLE 100 MG PREMIX BAG 50 ML IV SCH (16:02)
[2016-07-05] MEDS: cefTRIAXone INJ 2,000 MG in SODIUM CHLORIDE 0.9% INJ 100 ML IV SCH (20:00)
--- NOTE | 2016-07-05 20:14 | HHI.PR ---
Subjective Remarks 80 YOmale with Dementia, RF,Trach Pt aphasic Tolerates TF On Trach collar on Zosyn and Rocephin No fever Objective Vital Signs Vital Signs Date Time Temp Pulse Resp B/P Pulse Ox O2 Delivery O2 Flow Rate FiO2 07/05/16 18:27 98 T-piece 6.00 28 07/05/16 17:29 96.8 93 20 99/72 98 07/05/16 13:12 96 T-piece 28 07/05/16 13:12 98.8 92 20 135/59 96 07/05/16 10:12 99 T-Piece 6.00 28 07/05/16 09:08 99.3 98 20 112/52 98 07/05/16 04:00 98.4 95 20 117/67 98 07/05/16 00:00 98.2 92 20 126/59 97 07/04/16 21:45 99 T-Piece 6.00 28 I/O 07/04/16 07/04/16 07/04/16 07/05/16 07/05/16 07/05/16 07:00 15:00 23:00 07:00 15:00 23:00 Intake Total 1023 ml Output Total 350 ml 750 ml 600 ml 300 ml 800 ml Balance -350 ml 273 ml -600 ml -300 ml -800 ml Tube Feeding 1023 ml Output Urine Total 350 ml 750 ml 600 ml 300 ml 800 ml # Bowel Movements 2 3 Result Diagram: 07/03/16 0658 07/05/16 0730 Objective Remarks GENERAL: Elderly frail male, mild sob SKIN: Warm and dry. HEAD: Normocephalic. EYES: No scleral icterus. No injection or drainage. NECK: Supple, trachea midline. No JVD or lymphadenopathy. CARDIOVASCULAR: Regular rate and rhythm without murmurs, gallops, or rubs. RESPIRATORY: Breath sounds equal bilaterally. No accessory muscle use. GASTROINTESTINAL: Abdomen soft, non-tender, nondistended. MUSCULOSKELETAL: No cyanosis, or edema. BACK: Nontender without obvious deformity. No CVA tenderness. A/P Assessment and Plan RF,s/p Trach Aphasia Dysphagia Dementia PLAN: Trach care Aerosol nebs TF Tracheal suction Levsin qid Stable on Trach collar Abx per ID Silverio Reyes MD Jul 05, 2016 20:14
[2016-07-05] MEDS: VANCOMYCIN 1,500 MG/NS 500 ML IV SCH ×2 (21:58)
--- NOTE | 2016-07-05 23:14 | HHI.IDPN ---
Subjective Subjective Remarks delayed entry - pt was seen earlier today afebrile diarrhea noted Antibiotics CFTX vanco fluconazol Past Medical History Alzheimer's dementia, anxiety, BPH and HNT Allergies: Coded Allergies: *MDRO Multi-Drug Resistant Organism (Verified Adverse Reaction, Unknown, ) MRSA (sputum) - 06/28/16 Objective . Vital Signs Date Time Temp Pulse Resp B/P Pulse Ox O2 Delivery O2 Flow Rate FiO2 07/05/16 20:00 98.2 86 20 126/59 100 07/05/16 18:27 98 T-piece 6.00 28 07/05/16 17:29 96.8 93 20 99/72 98 07/05/16 13:12 96 T-piece 28 07/05/16 13:12 98.8 92 20 135/59 96 07/05/16 10:12 99 T-Piece 6.00 28 07/05/16 09:08 99.3 98 20 112/52 98 07/05/16 04:00 98.4 95 20 117/67 98 07/05/16 00:00 98.2 92 20 126/59 97 07/04/16 07/04/16 07/05/16 15:00 23:00 07:00 Intake Total 1023 ml Output Total 750 ml 600 ml 300 ml Balance 273 ml -600 ml -300 ml Tube Feeding 1023 ml Output Urine Total 750 ml 600 ml 300 ml # Bowel Movements 2 . Laboratory Tests Test 07/05/16 07:30 Creatinine 0.72 MG/DL Estimat Glomerular Filtration 105 ML/MIN Rate Imaging Last Impressions Chest X-Ray 06/27/16 0000 Signed Impressions: Service Date/Time: Monday, June 27, 2016 09:03 - CONCLUSION: No acute disease. There is no evidence of pneumonia. Dhruv Tenorio MD Abdomen/Pelvis CT 06/19/16 0000 Signed Impressions: Service Date/Time: Monday, June 20, 2016 02:30 - CONCLUSION: 1. Moderate stool throughout the colon. No obstruction or inflammatory changes. No small bowel distention. 2. Subacute appearing left hip fracture. 3. PEG tube without evidence of an acute complication. Gary Griffin MD Abdomen X-Ray 06/17/16 0000 Signed Impressions: Service Date/Time: Friday, June 17, 2016 11:51 - CONCLUSION: No abnormal dilatation of the large or small bowel to indicate an ileus. There is a gastrostomy tube in the stomach which appears to be somewhat distended with air. José Miguel Celis MD Physical Exam CONSTITUTIONAL/GENERAL: This is an adequately nourished patient, unresponsive SKIN: No jaundice, rashes, or lesions. Skin temperature appropriate. Not diaphoretic. EYES: Pupils equal and round and reactive. No scleral icterus. No injection or drainage. Fundi not examined. ENT: Nose without bleeding or purulent drainage. oral mucosae dry, without visible erythema, exudates, masses, or lesions. NECK: Trachea midline. Trach in palce CARDIOVASCULAR: Regular rate and rhythm without murmurs, gallops, or rubs. No JVD. Peripheral pulses symmetric. RESPIRATORY/CHEST: Symmetric, unlabored respirations. B/l rhonchi. GASTROINTESTINAL: Abdomen soft, non-tender, nondistended. No hepato-splenomegaly , or palpable masses. No guarding. Bowel sounds present. PEG in place GENITOURINARY: Without palpable bladder distension. Mckeon catheter in place with clear light yellow urine MUSCULOSKELETAL: Extremities without clubbing, cyanosis, contracted no sigmificant edema. NEUROLOGICAL: nonverbal; almost responsive; + spontaneous eye opening w/o tracking PSYCHIATRIC: unable to assess Assessment & Plan Remarks UTI, sepsis, resolved ARF, improved Acute VDRF -resolved ? PNA: MRSA, Kleb R zosyn Satph epi bacteremia , low grade ? significanc e Persistent fever - resolved Leukocytosis, bandemia - resolved diarrhea cont vanco cont CFTX - chk stool for C.diff Elle Cardenas MD Jul 05, 2016 23:14
[2016-07-06] VITALS (7 sets, daily range): BP systolic 111–140; BP diastolic 55–77; PULSE 89–112; RESP 18–24; TEMP 97.1–99.7; O2SAT 95–100
[2016-07-06] MEDS: CHLORHEXIDINE GLUCONATE 2 % 1 PACK (2 CLOTHS) TOP SCH (03:57)
[2016-07-06] MEDS: FREE WATER G-TUBE SCH ×4 (05:36→16:20)
[2016-07-06] MEDS: HEPARIN SODIUM - SQ 10,000 UNITS/ML VIAL SQ SCH ×3 (05:36→22:00)
[2016-07-06] MEDS: LOW DOSE INSULIN NOVOLOG SUPPLEMENTAL SCALE SQ SCH ×4 (05:37→16:47)
--- NOTE | 2016-07-06 08:20 | HHI.PR ---
Subjective Remarks seen with staff nurse minimal secretions on suctioning reported diarrhea yesterday- overnight no reported Objective Vitals Vital Signs Date Time Temp Pulse Resp B/P Pulse Ox O2 Delivery O2 Flow Rate FiO2 07/06/16 04:00 98.4 89 24 140/58 99 07/06/16 00:00 98.8 100 24 111/55 100 07/05/16 20:00 98.2 86 20 126/59 100 07/05/16 20:00 T-Piece 6.00 28 07/05/16 18:27 98 T-piece 6.00 28 07/05/16 17:29 96.8 93 20 99/72 98 07/05/16 13:12 96 T-piece 28 07/05/16 13:12 98.8 92 20 135/59 96 07/05/16 10:12 99 T-Piece 6.00 28 07/05/16 09:08 99.3 98 20 112/52 98 I/O 07/05/16 07/05/16 07/05/16 07/06/16 07/06/16 07/06/16 07:00 15:00 23:00 07:00 15:00 23:00 Intake Total 0 ml 0 ml Output Total 300 ml 800 ml 500 ml 500 ml Balance -300 ml -800 ml -500 ml -500 ml Intake Oral 0 ml 0 ml Output Urine Total 300 ml 800 ml 500 ml 500 ml # Bowel Movements 3 0 0 Result Diagram: 07/03/16 0658 07/05/16 0730 Imaging Last Impressions Chest X-Ray 06/27/16 0000 Signed Impressions: Service Date/Time: Monday, June 27, 2016 09:03 - CONCLUSION: No acute disease. There is no evidence of pneumonia. Dhruv Tenorio MD Abdomen/Pelvis CT 06/19/16 0000 Signed Impressions: Service Date/Time: Monday, June 20, 2016 02:30 - CONCLUSION: 1. Moderate stool throughout the colon. No obstruction or inflammatory changes. No small bowel distention. 2. Subacute appearing left hip fracture. 3. PEG tube without evidence of an acute complication. Gary Griffin MD Abdomen X-Ray 06/17/16 0000 Signed Impressions: Service Date/Time: Friday, June 17, 2016 11:51 - CONCLUSION: No abnormal dilatation of the large or small bowel to indicate an ileus. There is a gastrostomy tube in the stomach which appears to be somewhat distended with air. José Miguel Celis MD Objective Remarks no tracking, pupils equal tracheostomy in place lungs decreased breath sounds, no rales, no wheezes, ocasional rhonchi regular rhythm abdomen- PEG in place lennon in place, no scrotal edema no leg swelling moves all extremities to withdrawal, starting to get flexion contractures of extremities Lennon insert reason: Prolonged Immobilization Date of Insertion: Jul 05, 2016 A/P Problem List: (1) UTI (urinary tract infection) ICD Code: N39.0 Status: Acute (2) Alzheimer's dementia ICD Code: F02.80 Status: Chronic (3) Malnourished ICD Code: E46 Status: Acute (4) Acute respiratory failure with hypoxia and hypercarbia ICD Code: J96.01 Status: Acute (5) Hypertension ICD Code: I10 Status: Chronic (6) GERD (gastroesophageal reflux disease) ICD Code: K21.9 Status: Chronic (7) Diarrhea ICD Code: R19.7 Status: Acute (8) Fever ICD Code: R50.9 Status: Acute Assessment and Plan 80 years old male Alzheimer's dementia: Patient also with delirium, depression, anxiety. Continue Provigil. Acute hychronic respiratory failure S/P tracheostomy - t collar 28%. Pulmonary ff. Continue bronchodilators as needed. Klebsiella/MRSA Pneumonia St. epidermidis- on blood culture- possibly contaminant On T piece. Levsin for secretions, Sputum culture growing Klebsiella pneumoniae and MRSA. Droplet/contact isolation. On Ceftriaxone and vancomycin ID ff along with us Candiduria on IV fluconazole- changed lennon and send new specimen for UA - pending Hypertension: controlled. Anorexia, failure to thrive, moderate protein calorie malnutrition: Continue tube feeds with Glucerna.- monitor residuals increase tube feeding rate to 40 cc/hr today 07/06- goal rate of 50 cc/hr appreciate [employer] office instructor seeing patient 07/05 GERD: Continue Pepcid. Reported Diarrhea 07/05: monitor. on Lactinex. C diff prdered Hyperglycemia of critical illness: Monitor Accu-Cheks and cover with sliding scale insulin. DVT prophylaxis: Heparin. CM ff along with us- DC planning-SNF- hopefully [facility] when off IV antibiotics Joslyn Crisostomo MD Jul 06, 2016 08:20
[2016-07-06] MEDS: SODIUM CHLORIDE 0.9% FLUSH 5 ML FLUSH IV FLUSH SCH ×2 (09:00→21:02)
[2016-07-06] MEDS: POVIDONE IODINE 10% SOLN 480 ML BTL TOPICAL SCH ×2 (09:00→21:08)
[2016-07-06] MEDS: MODAFINIL 200 MG TAB PO SCH (09:00)
[2016-07-06] MEDS: FAMOTIDINE 20 MG TAB NG SCH ×2 (09:00→21:02)
[2016-07-06 10:40] LABS: BACTERIA, URINE OCC /hpf; BLOOD, URINE NEG (NEG); COMMENT (UR) CATH-CULTURE IND; CULTURE IF INDICATED CATH CULTURE IND; GLUCOSE,URINE NEG (NEG); KETONE, URINE NEG (NEG); MUCUS URINE FEW /lpf (OCC); NITRITE,URINE NEG (NEG); PH, URINE 6.5 (5.0-8.5); URINE COLOR YELLOW (YELLW/STRAW)
[2016-07-06] MEDS: FLUCONAZOLE 100 MG PREMIX BAG 50 ML IV SCH (14:51)
--- NOTE | 2016-07-06 17:14 | HHI.PR ---
Subjective Remarks 80 YOmale with Dementia, RF,Trach Pt aphasic Tolerates TF On Trach collar on Zosyn and Rocephin No fever Has increased Trach secretions Objective Vital Signs Vital Signs Date Time Temp Pulse Resp B/P Pulse Ox O2 Delivery O2 Flow Rate FiO2 07/06/16 15:58 99.7 100 21 133/60 96 07/06/16 12:55 98.9 101 18 139/77 96 07/06/16 12:00 95 T-piece 28 07/06/16 08:06 98.8 99 18 134/69 96 07/06/16 07:15 T-Piece 6.00 28 07/06/16 04:00 98.4 89 24 140/58 99 07/06/16 00:00 98.8 100 24 111/55 100 07/05/16 20:00 98.2 86 20 126/59 100 07/05/16 20:00 T-Piece 6.00 28 07/05/16 18:27 98 T-piece 6.00 28 07/05/16 17:29 96.8 93 20 99/72 98 I/O 07/05/16 07/05/16 07/05/16 07/06/16 07/06/16 07/06/16 07:00 15:00 23:00 07:00 15:00 23:00 Intake Total 0 ml 0 ml Output Total 300 ml 800 ml 500 ml 500 ml 400 ml Balance -300 ml -800 ml -500 ml -500 ml -400 ml Intake Oral 0 ml 0 ml Output Urine Total 300 ml 800 ml 500 ml 500 ml 400 ml # Bowel Movements 3 0 0 Result Diagram: 07/03/16 0658 07/05/16 0730 Objective Remarks GENERAL: Elderly frail male, mild sob SKIN: Warm and dry. HEAD: Normocephalic. EYES: No scleral icterus. No injection or drainage. NECK: Supple, trachea midline. No JVD or lymphadenopathy. CARDIOVASCULAR: Regular rate and rhythm without murmurs, gallops, or rubs. RESPIRATORY: Breath sounds equal bilaterally. No accessory muscle use. GASTROINTESTINAL: Abdomen soft, non-tender, nondistended. MUSCULOSKELETAL: No cyanosis, or edema. BACK: Nontender without obvious deformity. No CVA tenderness. A/P Assessment and Plan RF,s/p Trach Aphasia Dysphagia Dementia PLAN: Trach care Aerosol nebs Tracheal suction Levsin qid Stable on Trach collar Abx per ID Tube feeding increased to 40 cc/hr Silverio Reyes MD Jul 06, 2016 17:14
[2016-07-06] MEDS: cefTRIAXone INJ 2,000 MG in SODIUM CHLORIDE 0.9% INJ 100 ML IV SCH (21:02)
[2016-07-06] MEDS: VANCOMYCIN 1,500 MG/NS 500 ML IV SCH ×2 (22:00)
[2016-07-07] VITALS (7 sets, daily range): BP systolic 122–154; BP diastolic 61–76; PULSE 95–113; RESP 18–21; TEMP 97.9–98.9; O2SAT 96–100
[2016-07-07] MEDS: CHLORHEXIDINE GLUCONATE 2 % 1 PACK (2 CLOTHS) TOP SCH (04:00)
[2016-07-07] MEDS: FREE WATER G-TUBE SCH ×4 (05:35→18:00)
[2016-07-07] MEDS: HEPARIN SODIUM - SQ 10,000 UNITS/ML VIAL SQ SCH ×3 (05:38→21:30)
[2016-07-07] MEDS: LOW DOSE INSULIN NOVOLOG SUPPLEMENTAL SCALE SQ SCH ×4 (06:00→18:17)
[2016-07-07] MEDS: POVIDONE IODINE 10% SOLN 480 ML BTL TOPICAL SCH ×2 (09:00→21:00)
[2016-07-07] MEDS: SODIUM CHLORIDE 0.9% FLUSH 5 ML FLUSH IV FLUSH SCH ×2 (09:26→21:30)
[2016-07-07] MEDS: MODAFINIL 200 MG TAB PO SCH (09:26)
[2016-07-07] MEDS: FAMOTIDINE 20 MG TAB NG SCH ×2 (09:26→21:31)
--- NOTE | 2016-07-07 10:57 | HHI.PR ---
Subjective Remarks tolerating tube feedings no diarrhea- stools formed- d/w staff Objective Vitals Vital Signs Date Time Temp Pulse Resp B/P Pulse Ox O2 Delivery O2 Flow Rate FiO2 07/07/16 09:00 T-Piece 6.00 28 07/07/16 08:25 98.0 111 18 140/65 98 07/07/16 06:00 97.9 110 21 122/76 97 07/07/16 00:45 98.0 100 20 125/69 96 07/06/16 21:45 97.1 112 20 120/69 97 07/06/16 19:32 T-Piece 6.00 28 07/06/16 15:58 99.7 100 21 133/60 96 07/06/16 12:55 98.9 101 18 139/77 96 07/06/16 12:00 95 T-piece 28 I/O 07/06/16 07/06/16 07/06/16 07/07/16 07/07/16 07/07/16 07:00 15:00 23:00 07:00 15:00 23:00 Intake Total 0 ml 0 ml 0 ml Output Total 500 ml 400 ml 400 ml 500 ml Balance -500 ml -400 ml -400 ml -500 ml Intake Oral 0 ml 0 ml 0 ml Output Urine Total 500 ml 400 ml 400 ml 500 ml # Bowel Movements 0 2 4 1 Result Diagram: 07/03/16 0658 07/07/16 0800 Imaging Last Impressions Chest X-Ray 06/27/16 0000 Signed Impressions: Service Date/Time: Monday, June 27, 2016 09:03 - CONCLUSION: No acute disease. There is no evidence of pneumonia. Dhruv Tenorio MD Abdomen/Pelvis CT 06/19/16 0000 Signed Impressions: Service Date/Time: Monday, June 20, 2016 02:30 - CONCLUSION: 1. Moderate stool throughout the colon. No obstruction or inflammatory changes. No small bowel distention. 2. Subacute appearing left hip fracture. 3. PEG tube without evidence of an acute complication. Gary Griffin MD Abdomen X-Ray 06/17/16 0000 Signed Impressions: Service Date/Time: Friday, June 17, 2016 11:51 - CONCLUSION: No abnormal dilatation of the large or small bowel to indicate an ileus. There is a gastrostomy tube in the stomach which appears to be somewhat distended with air. José Miguel Celis MD Objective Remarks no tracking, pupils equal tracheostomy in place lungs decreased breath sounds, no rales, no wheezes, ocasional rhonchi regular rhythm abdomen- PEG in place lennon in place, no scrotal edema no leg swelling moves all extremities to withdrawal, starting to get flexion contractures of extremities Urinary Catheter: Yes Assessment to: Continue Date of Insertion: Jul 05, 2016 A/P Problem List: (1) UTI (urinary tract infection) ICD Code: N39.0 Status: Acute (2) Alzheimer's dementia ICD Code: F02.80 Status: Chronic (3) Malnourished ICD Code: E46 Status: Acute (4) Acute respiratory failure with hypoxia and hypercarbia ICD Code: J96.01 Status: Acute (5) Hypertension ICD Code: I10 Status: Chronic (6) GERD (gastroesophageal reflux disease) ICD Code: K21.9 Status: Chronic (7) Diarrhea ICD Code: R19.7 Status: Acute (8) Fever ICD Code: R50.9 Status: Acute Assessment and Plan 80 years old male Alzheimer's dementia: Patient also with delirium, depression, anxiety. Continue Provigil. Acute hychronic respiratory failure S/P tracheostomy - t collar 28%. Pulmonary ff. Continue bronchodilators as needed. Klebsiella/MRSA Pneumonia St. epidermidis- on blood culture- possibly contaminant On T piece. Levsin for secretions, Sputum culture growing Klebsiella pneumoniae and MRSA. Droplet/contact isolation. On Ceftriaxone and vancomycin ID ff along with us Candiduria on IV fluconazole- changed lennon and send new specimen for UA - pending Hypertension: controlled. Anorexia, failure to thrive, moderate protein calorie malnutrition: Continue tube feeds with Glucerna.- monitor residuals increase tube feeding rate to 40 cc/hr today 07/06- goal rate of 50 cc/hr appreciate school psychology specialist seeing patient 07/05 GERD: Continue Pepcid. Reported Diarrhea 07/05: monitor. on Lactinex. Hyperglycemia of critical illness: Monitor Accu-Cheks and cover with sliding scale insulin. DVT prophylaxis: Heparin. CM ff along with us- DC planning-SNF- hopefully [facility] when off IV antibiotics Joslyn Crisostomo MD Jul 07, 2016 10:57
[2016-07-07] MEDS: FLUCONAZOLE 100 MG PREMIX BAG 50 ML IV SCH (14:24)
[2016-07-07 16:55] LABS: C. DIFF EPI 027 PRESUMPTIVE NEGATIVE (NEGATIVE); C. DIFF TOXIN PCR NEGATIVE (NEGATIVE)
--- NOTE | 2016-07-07 19:16 | HHI.PR ---
Subjective Remarks 80 YO male with Dementia, RF,Trach Pt aphasic Tolerates TF On Trach collar on Zosyn and Rocephin No fever Opens eyes Objective Vital Signs Vital Signs Date Time Temp Pulse Resp B/P Pulse Ox O2 Delivery O2 Flow Rate FiO2 07/07/16 16:07 98.9 105 18 128/61 98 07/07/16 12:38 99 T-piece 28 07/07/16 12:04 98.5 113 19 154/71 100 07/07/16 09:00 T-Piece 6.00 28 07/07/16 08:25 98.0 111 18 140/65 98 07/07/16 06:00 97.9 110 21 122/76 97 07/07/16 00:45 98.0 100 20 125/69 96 07/06/16 21:45 97.1 112 20 120/69 97 07/06/16 19:32 T-Piece 6.00 28 I/O 07/06/16 07/06/16 07/06/16 07/07/16 07/07/16 07/07/16 07:00 15:00 23:00 07:00 15:00 23:00 Intake Total 0 ml 0 ml 0 ml 1531 ml Output Total 500 ml 400 ml 400 ml 500 ml Balance -500 ml -400 ml -400 ml -500 ml 1531 ml Intake Oral 0 ml 0 ml 0 ml Tube Feeding 1231 ml Tube Irrigant 50 ml Other 250 ml Output Urine Total 500 ml 400 ml 400 ml 500 ml # Bowel Movements 0 2 4 1 Result Diagram: 07/03/16 0658 07/07/16 0800 Objective Remarks GENERAL: Elderly frail male, mild sob SKIN: Warm and dry. HEAD: Normocephalic. EYES: No scleral icterus. No injection or drainage. NECK: Supple, trachea midline. No JVD or lymphadenopathy. CARDIOVASCULAR: Regular rate and rhythm without murmurs, gallops, or rubs. RESPIRATORY: Breath sounds equal bilaterally. No accessory muscle use. GASTROINTESTINAL: Abdomen soft, non-tender, nondistended. MUSCULOSKELETAL: No cyanosis, or edema. BACK: Nontender without obvious deformity. No CVA tenderness. A/P Assessment and Plan RF,s/p Trach Aphasia Dysphagia Dementia PLAN: Trach care Aerosol nebs Tracheal suction Levsin qid Stable on Trach collar Abx per ID Tube feeding 40 cc/hr Avaialable prn over weekend Silverio Reyes MD Jul 07, 2016 19:15
[2016-07-07] MEDS: cefTRIAXone INJ 2,000 MG in SODIUM CHLORIDE 0.9% INJ 100 ML IV SCH (20:00)
[2016-07-07] MEDS ORDERED: PHARMACY ORDERED LAB XX ONE (20:45)
[2016-07-07] MEDS: VANCOMYCIN 1,500 MG/NS 500 ML IV SCH ×2 (21:29)
[2016-07-08] VITALS (7 sets, daily range): BP systolic 123–153; BP diastolic 67–80; PULSE 88–104; RESP 18–24; TEMP 96.8–99.1; O2SAT 95–99
[2016-07-08] MEDS: CHLORHEXIDINE GLUCONATE 2 % 1 PACK (2 CLOTHS) TOP SCH (04:00)
[2016-07-08] MEDS: HEPARIN SODIUM - SQ 10,000 UNITS/ML VIAL SQ SCH ×3 (05:59→23:02)
[2016-07-08] MEDS: LOW DOSE INSULIN NOVOLOG SUPPLEMENTAL SCALE SQ SCH ×3 (06:00→17:53)
[2016-07-08] MEDS: FREE WATER G-TUBE SCH ×5 (06:00→23:06)
[2016-07-08] MEDS: POVIDONE IODINE 10% SOLN 480 ML BTL TOPICAL SCH ×2 (09:00→21:00)
[2016-07-08] MEDS: FAMOTIDINE 20 MG TAB NG SCH ×2 (09:10→23:04)
[2016-07-08] MEDS: MODAFINIL 200 MG TAB PO SCH (09:10)
[2016-07-08] MEDS: SODIUM CHLORIDE 0.9% FLUSH 5 ML FLUSH IV FLUSH SCH ×2 (09:10→23:02)
--- NOTE | 2016-07-08 12:17 | HHI.PR ---
Subjective Remarks tolerating tube feeding formed stools- d/w staff Objective Vitals Vital Signs Date Time Temp Pulse Resp B/P Pulse Ox O2 Delivery O2 Flow Rate FiO2 07/08/16 12:00 97.8 95 20 128/68 98 07/08/16 10:15 96 T-piece 28 07/08/16 08:00 99.1 96 18 138/68 95 07/08/16 06:15 98.6 91 24 130/67 98 07/08/16 00:20 98.8 88 21 125/75 99 07/07/16 21:45 98.7 95 20 128/65 100 07/07/16 19:20 T-Piece 6.00 28 07/07/16 16:07 98.9 105 18 128/61 98 07/07/16 12:38 99 T-piece 28 I/O 07/07/16 07/07/16 07/07/16 07/08/16 07/08/16 07/08/16 07:00 15:00 23:00 07:00 15:00 23:00 Intake Total 0 ml 1531 ml 0 ml 0 ml Output Total 500 ml 400 ml 800 ml Balance -500 ml 1531 ml -400 ml -800 ml Intake Oral 0 ml 0 ml 0 ml Tube Feeding 1231 ml Tube Irrigant 50 ml Other 250 ml Output Urine Total 500 ml 400 ml 800 ml # Bowel Movements 4 1 1 4 Result Diagram: 07/07/16 0800 Imaging Last Impressions Chest X-Ray 06/27/16 0000 Signed Impressions: Service Date/Time: Monday, June 27, 2016 09:03 - CONCLUSION: No acute disease. There is no evidence of pneumonia. Dhruv Tenorio MD Abdomen/Pelvis CT 06/19/16 0000 Signed Impressions: Service Date/Time: Monday, June 20, 2016 02:30 - CONCLUSION: 1. Moderate stool throughout the colon. No obstruction or inflammatory changes. No small bowel distention. 2. Subacute appearing left hip fracture. 3. PEG tube without evidence of an acute complication. Gary Griffin MD Abdomen X-Ray 06/17/16 0000 Signed Impressions: Service Date/Time: Friday, June 17, 2016 11:51 - CONCLUSION: No abnormal dilatation of the large or small bowel to indicate an ileus. There is a gastrostomy tube in the stomach which appears to be somewhat distended with air. José Miguel Celis MD Objective Remarks no tracking, pupils equal tracheostomy in place lungs decreased breath sounds, no rales, no wheezes, ocasional rhonchi regular rhythm abdomen- PEG in place lennon in place, no scrotal edema no leg swelling moves all extremities to withdrawal, starting to get flexion contractures of extremities Date of Insertion: Jul 05, 2016 A/P Problem List: (1) UTI (urinary tract infection) ICD Code: N39.0 Status: Acute (2) Alzheimer's dementia ICD Code: F02.80 Status: Chronic (3) Malnourished ICD Code: E46 Status: Acute (4) Acute respiratory failure with hypoxia and hypercarbia ICD Code: J96.01 Status: Acute (5) Hypertension ICD Code: I10 Status: Chronic (6) GERD (gastroesophageal reflux disease) ICD Code: K21.9 Status: Chronic (7) Diarrhea ICD Code: R19.7 Status: Acute (8) Fever ICD Code: R50.9 Status: Acute Assessment and Plan 80 years old male Alzheimer's dementia: Patient also with delirium, depression, anxiety. Continue Provigil. Acute hychronic respiratory failure S/P tracheostomy - t collar 28%. Pulmonary ff. Continue bronchodilators as needed. Klebsiella/MRSA Pneumonia St. epidermidis- on blood culture- possibly contaminant On T piece. Levsin for secretions, Sputum culture growing Klebsiella pneumoniae and MRSA. Droplet/contact isolation. On Ceftriaxone and vancomycin ID ff along with us Candiduria on IV fluconazole- changed lennon and send new specimen for UA - pending Hypertension: controlled. Anorexia, failure to thrive, moderate protein calorie malnutrition: Continue tube feeds with Glucerna.- monitor residuals increase tube feeding rate to 40 cc/hr today 07/06- goal rate of 50 cc/hr appreciate participant administrator seeing patient 07/05 GERD: Continue Pepcid. Reported Diarrhea 07/05: monitor. on Lactinex. Hyperglycemia of critical illness: Monitor Accu-Cheks and cover with sliding scale insulin. DVT prophylaxis: Heparin. CM ff along with us- DC planning-SNF- hopefully [facility] when off IV antibiotics Joslyn Crisostomo MD Jul 08, 2016 12:17
[2016-07-08] MEDS: FLUCONAZOLE 100 MG PREMIX BAG 50 ML IV SCH (13:56)
[2016-07-08] MEDS: VANCOMYCIN 1,500 MG/NS 500 ML IV SCH ×2 (21:00)
[2016-07-08] MEDS: cefTRIAXone INJ 2,000 MG in SODIUM CHLORIDE 0.9% INJ 100 ML IV SCH (22:58)
[2016-07-09] VITALS (8 sets, daily range): BP systolic 126–147; BP diastolic 68–86; PULSE 93–115; RESP 20–24; TEMP 96.8–99.1; O2SAT 97–100
[2016-07-09] MEDS: CHLORHEXIDINE GLUCONATE 2 % 1 PACK (2 CLOTHS) TOP SCH (04:00)
[2016-07-09] MEDS: FREE WATER G-TUBE SCH ×3 (06:00→17:50)
[2016-07-09] MEDS: LOW DOSE INSULIN NOVOLOG SUPPLEMENTAL SCALE SQ SCH ×4 (06:00→17:50)
[2016-07-09] MEDS: HEPARIN SODIUM - SQ 10,000 UNITS/ML VIAL SQ SCH ×3 (06:27→22:00)
[2016-07-09] MEDS: FAMOTIDINE 20 MG TAB NG SCH ×2 (09:09→21:00)
[2016-07-09] MEDS: MODAFINIL 200 MG TAB PO SCH (09:09)
[2016-07-09] MEDS: SODIUM CHLORIDE 0.9% FLUSH 5 ML FLUSH IV FLUSH SCH (09:09)
[2016-07-09] MEDS: POVIDONE IODINE 10% SOLN 480 ML BTL TOPICAL SCH ×2 (09:13→21:00)
--- NOTE | 2016-07-09 09:49 | HHI.PR ---
Subjective Remarks tolerating tube feedings minimal secretions on suctioning Objective Vitals Vital Signs Date Time Temp Pulse Resp B/P Pulse Ox O2 Delivery O2 Flow Rate FiO2 07/09/16 08:48 100 T-piece 5.00 28 07/09/16 08:00 98.8 106 21 147/76 100 07/09/16 04:10 97.1 115 20 138/68 100 07/09/16 00:44 96.8 110 20 143/75 100 07/08/16 20:55 T-Piece 28 07/08/16 20:35 96.9 104 22 153/80 97 07/08/16 18:39 T-piece 6.00 28 07/08/16 16:00 96.8 92 20 123/71 97 07/08/16 12:16 98 T-Piece 6.00 28 07/08/16 12:00 97.8 95 20 128/68 98 07/08/16 10:15 96 T-piece 28 I/O 07/08/16 07/08/16 07/08/16 07/09/16 07/09/16 07/09/16 07:00 15:00 23:00 07:00 15:00 23:00 Intake Total 0 ml 2050 ml Output Total 800 ml 450 ml 550 ml 525 ml Balance -800 ml -450 ml -550 ml 1525 ml Intake Oral 0 ml IV Total 366 ml Tube Feeding 1184 ml Other 500 ml Output Urine Total 800 ml 450 ml 550 ml 525 ml # Bowel Movements 4 2 2 Result Diagram: 07/09/16 0803 Imaging Last Impressions Chest X-Ray 06/27/16 0000 Signed Impressions: Service Date/Time: Monday, June 27, 2016 09:03 - CONCLUSION: No acute disease. There is no evidence of pneumonia. Dhruv Tenorio MD Abdomen/Pelvis CT 06/19/16 0000 Signed Impressions: Service Date/Time: Monday, June 20, 2016 02:30 - CONCLUSION: 1. Moderate stool throughout the colon. No obstruction or inflammatory changes. No small bowel distention. 2. Subacute appearing left hip fracture. 3. PEG tube without evidence of an acute complication. Gary Griffin MD Abdomen X-Ray 06/17/16 0000 Signed Impressions: Service Date/Time: Friday, June 17, 2016 11:51 - CONCLUSION: No abnormal dilatation of the large or small bowel to indicate an ileus. There is a gastrostomy tube in the stomach which appears to be somewhat distended with air. José Miguel Celis MD Objective Remarks no tracking, pupils equal tracheostomy in place lungs decreased breath sounds, no rales, no wheezes, no rhonchi regular rhythm abdomen- PEG in place lennon in place, mild penile swelling no leg swelling moves all extremities to withdrawal, starting to get flexion contractures of extremities Date of Insertion: Jul 05, 2016 A/P Problem List: (1) UTI (urinary tract infection) ICD Code: N39.0 Status: Acute (2) Alzheimer's dementia ICD Code: F02.80 Status: Chronic (3) Malnourished ICD Code: E46 Status: Acute (4) Acute respiratory failure with hypoxia and hypercarbia ICD Code: J96.01 Status: Acute (5) Hypertension ICD Code: I10 Status: Chronic (6) GERD (gastroesophageal reflux disease) ICD Code: K21.9 Status: Chronic (7) Diarrhea ICD Code: R19.7 Status: Acute (8) Fever ICD Code: R50.9 Status: Acute Assessment and Plan 80 years old male Alzheimer's dementia: Patient also with delirium, depression, anxiety. Continue Provigil. Acute hychronic respiratory failure S/P tracheostomy - t collar 28%. Pulmonary ff. Continue bronchodilators as needed. Klebsiella/MRSA Pneumonia St. epidermidis- on blood culture- possibly contaminant On T piece. Levsin for secretions, Sputum culture growing Klebsiella pneumoniae and MRSA. Droplet/contact isolation. On Ceftriaxone and vancomycin ID ff along with us Candiduria on IV fluconazole- changed lennon and send new specimen for UA - pending Hypertension: controlled. Anorexia, failure to thrive, moderate protein calorie malnutrition: Continue tube feeds with Glucerna.- monitor residuals increase tube feeding rate to 40 cc/hr today 07/06- goal rate of 50 cc/hr appreciate extrusion die repairer seeing patient 07/05 GERD: Continue Pepcid. Reported Diarrhea 07/05: monitor. on Lactinex. Hyperglycemia of critical illness: Monitor Accu-Cheks and cover with sliding scale insulin. DVT prophylaxis: Heparin. CM ff along with us- DC planning-SNF- hopefully [facility] when off IV antibiotics Joslyn Crisostomo MD Jul 09, 2016 09:49
[2016-07-09] MEDS: FLUCONAZOLE 100 MG PREMIX BAG 50 ML IV SCH (14:43)
[2016-07-09] MEDS: VANCOMYCIN 1,500 MG/NS 500 ML IV SCH ×2 (21:00)
[2016-07-10] VITALS (8 sets, daily range): BP systolic 112–159; BP diastolic 55–82; PULSE 93–110; RESP 22–24; TEMP 97.3–98.9; O2SAT 96–100
[2016-07-10] MEDS: SODIUM CHLORIDE 0.9% FLUSH 5 ML FLUSH IV FLUSH SCH ×3 (00:12→21:00)
[2016-07-10] MEDS: cefTRIAXone INJ 2,000 MG in SODIUM CHLORIDE 0.9% INJ 100 ML IV SCH (00:12)
[2016-07-10] MEDS: CHLORHEXIDINE GLUCONATE 2 % 1 PACK (2 CLOTHS) TOP SCH (04:00)
[2016-07-10] MEDS: HEPARIN SODIUM - SQ 10,000 UNITS/ML VIAL SQ SCH ×3 (05:41→22:26)
[2016-07-10] MEDS: FREE WATER G-TUBE SCH ×4 (05:58→17:40)
[2016-07-10] MEDS: LOW DOSE INSULIN NOVOLOG SUPPLEMENTAL SCALE SQ SCH ×4 (06:00→17:40)
[2016-07-10] MEDS: FAMOTIDINE 20 MG TAB NG SCH ×2 (09:11→22:25)
[2016-07-10] MEDS: MODAFINIL 200 MG TAB PO SCH (09:11)
[2016-07-10] MEDS: POVIDONE IODINE 10% SOLN 480 ML BTL TOPICAL SCH ×2 (09:11→21:00)
--- NOTE | 2016-07-10 10:04 | HHI.PR ---
Subjective Remarks patient tracheostomy- minimal thin yellowish secretions tolerating tube feedings Objective Vitals Vital Signs Date Time Temp Pulse Resp B/P Pulse Ox O2 Delivery O2 Flow Rate FiO2 07/10/16 08:21 98.2 104 24 135/67 97 07/10/16 04:33 97.3 95 22 159/63 100 07/10/16 00:26 98.1 110 24 130/78 98 07/09/16 20:35 99.0 108 24 129/69 97 07/09/16 20:30 T-Piece 28 07/09/16 18:23 100 T-piece 6.00 28 07/09/16 16:00 98.7 93 20 137/86 100 07/09/16 12:00 99.1 99 21 126/71 99 I/O 07/09/16 07/09/16 07/09/16 07/10/16 07/10/16 07/10/16 07:00 15:00 23:00 07:00 15:00 23:00 Intake Total 2050 ml 200 ml 844 ml 294 ml Output Total 525 ml 1150 ml 450 ml Balance 1525 ml 200 ml -306 ml 294 ml -450 ml IV Total 366 ml Tube Feeding 1184 ml 644 ml 44 ml Other 500 ml 200 ml 200 ml 250 ml Output Urine Total 525 ml 1150 ml 450 ml # Bowel Movements 2 1 1 2 Result Diagram: 07/09/16 0803 Imaging Last Impressions Chest X-Ray 06/27/16 0000 Signed Impressions: Service Date/Time: Monday, June 27, 2016 09:03 - CONCLUSION: No acute disease. There is no evidence of pneumonia. Dhruv Tenorio MD Abdomen/Pelvis CT 06/19/16 0000 Signed Impressions: Service Date/Time: Monday, June 20, 2016 02:30 - CONCLUSION: 1. Moderate stool throughout the colon. No obstruction or inflammatory changes. No small bowel distention. 2. Subacute appearing left hip fracture. 3. PEG tube without evidence of an acute complication. Gary Griffin MD Abdomen X-Ray 06/17/16 0000 Signed Impressions: Service Date/Time: Friday, June 17, 2016 11:51 - CONCLUSION: No abnormal dilatation of the large or small bowel to indicate an ileus. There is a gastrostomy tube in the stomach which appears to be somewhat distended with air. José Miguel J. Siragusa, MD Objective Remarks no tracking, pupils equal tracheostomy in place lungs decreased breath sounds, no rales, no wheezes, no rhonchi regular rhythm abdomen- PEG in place lennon in place, mild penile swelling no leg swelling moves all extremities to withdrawal, s flexion contractures of extremities cross legged.cross armed Urinary Catheter: Yes Lennon insert reason: Prolonged Immobilization Date of Insertion: Jul 05, 2016 A/P Problem List: (1) UTI (urinary tract infection) ICD Code: N39.0 Status: Acute (2) Alzheimer's dementia ICD Code: F02.80 Status: Chronic (3) Malnourished ICD Code: E46 Status: Acute (4) Acute respiratory failure with hypoxia and hypercarbia ICD Code: J96.01 Status: Acute (5) Hypertension ICD Code: I10 Status: Chronic (6) GERD (gastroesophageal reflux disease) ICD Code: K21.9 Status: Chronic (7) Diarrhea ICD Code: R19.7 Status: Acute (8) Fever ICD Code: R50.9 Status: Acute Assessment and Plan 80 years old male Alzheimer's dementia: Patient also with delirium, depression, anxiety. Continue Provigil. Acute hychronic respiratory failure S/P tracheostomy - t collar 28%. Pulmonary ff. Continue bronchodilators as needed. Klebsiella/MRSA Pneumonia St. epidermidis- on blood culture- possibly contaminant On T piece. Levsin for secretions, Sputum culture growing Klebsiella pneumoniae and MRSA. Droplet/contact isolation. On Ceftriaxone and vancomycin ID ff along with us Candiduria on IV fluconazole- changed lennon and send new specimen for UA - pending Hypertension: controlled. Anorexia, failure to thrive, moderate protein calorie malnutrition: Continue tube feeds with Glucerna.- monitor residuals increase tube feeding rate to 40 cc/hr today 07/06- goal rate of 50 cc/hr appreciate vender seeing patient 07/05 GERD: Continue Pepcid. Reported Diarrhea 07/05: monitor. on Lactinex. Hyperglycemia of critical illness: Monitor Accu-Cheks and cover with sliding scale insulin. DVT prophylaxis: Heparin. PT/OT consult- to recommend any brace or splints etc to prevent further/ worsening contractures- at least intermittently- how many hours a day etc CM ff along with us- [place] planning-SNF- hopefully [place] [facility] when off IV antibiotics Joslyn Crisostomo MD Jul 10, 2016 10:04
[2016-07-10] MEDS: FLUCONAZOLE 100 MG PREMIX BAG 50 ML IV SCH (15:08)
--- NOTE | 2016-07-10 18:20 | HHI.IDPN ---
Subjective Subjective Remarks No change afebrile C.diff negative Antibiotics CFTX vanco fluconazol Past Medical History Alzheimer's dementia, anxiety, BPH and HNT Allergies: Coded Allergies: *MDRO Multi-Drug Resistant Organism (Verified Adverse Reaction, Unknown, ) MRSA (sputum) - 06/28/16 Objective . Vital Signs Date Time Temp Pulse Resp B/P Pulse Ox O2 Delivery O2 Flow Rate FiO2 07/10/16 16:32 98.3 95 24 112/62 98 07/10/16 15:31 96 T-piece 28 07/10/16 12:02 98.6 102 24 125/55 99 07/10/16 08:21 98.2 104 24 135/67 97 07/10/16 04:33 97.3 95 22 159/63 100 07/10/16 00:26 98.1 110 24 130/78 98 07/09/16 20:35 99.0 108 24 129/69 97 07/09/16 20:30 T-Piece 28 07/09/16 18:23 100 T-piece 6.00 28 07/09/16 07/09/16 07/10/16 15:00 23:00 07:00 Intake Total 200 ml 844 ml 294 ml Output Total 1150 ml Balance 200 ml -306 ml 294 ml Tube Feeding 644 ml 44 ml Other 200 ml 200 ml 250 ml Output Urine Total 1150 ml # Bowel Movements 1 1 . Laboratory Tests Test 07/09/16 08:03 Creatinine 0.79 MG/DL Estimat Glomerular Filtration 94 ML/MIN Rate Imaging Last Impressions Chest X-Ray 06/27/16 0000 Signed Impressions: Service Date/Time: Monday, June 27, 2016 09:03 - CONCLUSION: No acute disease. There is no evidence of pneumonia. Dhruv Tenorio MD Abdomen/Pelvis CT 06/19/16 0000 Signed Impressions: Service Date/Time: Monday, June 20, 2016 02:30 - CONCLUSION: 1. Moderate stool throughout the colon. No obstruction or inflammatory changes. No small bowel distention. 2. Subacute appearing left hip fracture. 3. PEG tube without evidence of an acute complication. Gary Griffin MD Abdomen X-Ray 06/17/16 0000 Signed Impressions: Service Date/Time: Friday, June 17, 2016 11:51 - CONCLUSION: No abnormal dilatation of the large or small bowel to indicate an ileus. There is a gastrostomy tube in the stomach which appears to be somewhat distended with air. José Miguel Celis MD Physical Exam CONSTITUTIONAL/GENERAL: This is an adequately nourished patient, unresponsive SKIN: No jaundice, rashes, or lesions. Skin temperature appropriate. Not diaphoretic. EYES: Pupils equal and round and reactive. No scleral icterus. No injection or drainage. Fundi not examined. ENT: Nose without bleeding or purulent drainage. oral mucosae dry, without visible erythema, exudates, masses, or lesions. NECK: Trachea midline. Trach in place with yellowish sputum CARDIOVASCULAR: Regular rate and rhythm without murmurs, gallops, or rubs. No JVD. Peripheral pulses symmetric. RESPIRATORY/CHEST: Symmetric, unlabored respirations. B/l rhonchi. GASTROINTESTINAL: Abdomen soft, non-tender, nondistended. No hepato-splenomegaly , or palpable masses. No guarding. Bowel sounds present. PEG in place GENITOURINARY: Without palpable bladder distension. Mckeon catheter in place with clear light yellow urine MUSCULOSKELETAL: Extremities without clubbing, cyanosis, contracted no sigificant edema. NEUROLOGICAL: nonverbal; unresponsive; PSYCHIATRIC: unable to assess Assessment & Plan Remarks UTI, sepsis, resolved ARF, improved Acute VDRF -resolved ? PNA: MRSA, Kleb R zosyn Satph epi bacteremia , low grade ? significanc e Persistent fever - resolved Leukocytosis, bandemia - resolved diarrhea - C.diff negative dc abx - fu clinically - will see as needed Elle Cardenas MD Jul 10, 2016 18:20
--- NOTE | 2016-07-10 19:22 | HHI.PR ---
Subjective Remarks 80 YO male with Dementia, RF,Trach Pt aphasic Tolerates TF On Trach collar on Zosyn and Rocephin No fever Objective Vital Signs Vital Signs Date Time Temp Pulse Resp B/P Pulse Ox O2 Delivery O2 Flow Rate FiO2 07/10/16 16:32 98.3 95 24 112/62 98 07/10/16 15:31 96 T-piece 28 07/10/16 12:02 98.6 102 24 125/55 99 07/10/16 08:21 98.2 104 24 135/67 97 07/10/16 04:33 97.3 95 22 159/63 100 07/10/16 00:26 98.1 110 24 130/78 98 07/09/16 20:35 99.0 108 24 129/69 97 07/09/16 20:30 T-Piece 28 I/O 07/09/16 07/09/16 07/09/16 07/10/16 07/10/16 07/10/16 07:00 15:00 23:00 07:00 15:00 23:00 Intake Total 2050 ml 200 ml 844 ml 294 ml 843 ml Output Total 525 ml 1150 ml 800 ml Balance 1525 ml 200 ml -306 ml 294 ml -800 ml 843 ml IV Total 366 ml 50 ml Tube Feeding 1184 ml 644 ml 44 ml 393 ml Other 500 ml 200 ml 200 ml 250 ml 400 ml Output Urine Total 525 ml 1150 ml 800 ml # Bowel Movements 2 1 1 3 Result Diagram: 07/09/16 0803 Objective Remarks GENERAL: Elderly frail male, mild sob SKIN: Warm and dry. HEAD: Normocephalic. EYES: No scleral icterus. No injection or drainage. NECK: Supple, trachea midline. No JVD or lymphadenopathy. CARDIOVASCULAR: Regular rate and rhythm without murmurs, gallops, or rubs. RESPIRATORY: Breath sounds equal bilaterally. No accessory muscle use. GASTROINTESTINAL: Abdomen soft, non-tender, nondistended. MUSCULOSKELETAL: No cyanosis, or edema. BACK: Nontender without obvious deformity. No CVA tenderness. A/P Assessment and Plan RF,s/p Trach Aphasia Dysphagia Dementia PLAN: Trach care Aerosol nebs Tracheal suction Levsin qid Stable on Trach collar Abx per ID Tube feeding 40 cc/hr Silverio Reyes MD Jul 10, 2016 19:22
[2016-07-11] VITALS (7 sets, daily range): BP systolic 118–155; BP diastolic 55–97; PULSE 89–108; RESP 20–24; TEMP 96.4–99.5; O2SAT 96–100
[2016-07-11] MEDS: CHLORHEXIDINE GLUCONATE 2 % 1 PACK (2 CLOTHS) TOP SCH (04:00)
[2016-07-11] MEDS: HEPARIN SODIUM - SQ 10,000 UNITS/ML VIAL SQ SCH ×3 (05:27→22:04)
[2016-07-11] MEDS: FREE WATER G-TUBE SCH ×4 (05:27→18:23)
[2016-07-11] MEDS: LOW DOSE INSULIN NOVOLOG SUPPLEMENTAL SCALE SQ SCH ×4 (05:27→18:23)
[2016-07-11 08:00] LABS: BASOPHIL # 0.1 TH/MM3 (0-0.2); EOSINOPHIL # 0.5 TH/MM3 (0-0.4); HEMATOCRIT 31.8 % (39.0-51.0); HEMO FLAGS DIFF FINAL; LYMPH % 21.4 % (9.0-44.0); MEAN CELL VOLUME 84.1 FL (80.0-100.0); MEAN CORPUSCULAR HEMOGLOBIN 28.1 PG (27.0-34.0); MEAN CORPUSCULAR HGB CONC 33.4 % (32.0-36.0); MONO % 7.4 % (0.0-8.0); NEUT % 65.2 % (16.0-70.0); PLATELET COUNT 307 TH/MM3 (150-450); RED BLOOD COUNT 3.78 MIL/MM3 (4.50-5.90); RED CELL DISTRIBUTION WIDTH 17.9 % (11.6-17.2); WHITE BLOOD COUNT 9.2 TH/MM3 (4.0-11.0)
[2016-07-11 08:16] LABS: ALKALINE PHOSPHATASE 74 U/L (45-117); TOTAL BILIRUBIN ADULT 0.3 MG/DL (0.2-1.0)
[2016-07-11 08:20] LABS: ALT (GPT) 25 U/L (12-78); ANION GAP 10 MEQ/L (5-15); AST (GOT) 27 U/L (15-37); CHLORIDE 103 MEQ/L (98-107); GLOMERULAR FILTRATION RATE 94 ML/MIN (>89); SODIUM (NA) 138 MEQ/L (136-145)
[2016-07-11 08:25] LABS: BLOOD UREA NITROGEN 12 MG/DL (7-18)
[2016-07-11] MEDS: SODIUM CHLORIDE 0.9% FLUSH 5 ML FLUSH IV FLUSH SCH ×2 (09:00→21:00)
[2016-07-11] MEDS: POVIDONE IODINE 10% SOLN 480 ML BTL TOPICAL SCH ×2 (09:00→21:00)
[2016-07-11] MEDS: MODAFINIL 200 MG TAB PO SCH (09:09)
[2016-07-11] MEDS: FAMOTIDINE 20 MG TAB NG SCH ×2 (09:09→22:03)
--- NOTE | 2016-07-11 09:52 | HHI.PR ---
Subjective Remarks comatose patient tolerating tube feedings, on trach collar minimal secretions Objective Vitals Vital Signs Date Time Temp Pulse Resp B/P Pulse Ox O2 Delivery O2 Flow Rate FiO2 07/11/16 09:29 97 T-piece 6.00 28 07/11/16 08:01 96.7 98 22 147/69 96 07/11/16 06:54 99.5 89 20 118/55 98 07/11/16 03:59 T-Piece 6.00 28 Humidified 07/11/16 00:28 99.3 97 24 155/97 98 07/10/16 20:36 98.9 93 22 139/82 99 07/10/16 19:39 98 T-piece 6.00 28 07/10/16 16:32 98.3 95 24 112/62 98 07/10/16 15:31 96 T-piece 28 07/10/16 12:02 98.6 102 24 125/55 99 I/O 07/10/16 07/10/16 07/10/16 07/11/16 07/11/16 07/11/16 07:00 15:00 23:00 07:00 15:00 23:00 Intake Total 294 ml 843 ml Output Total 800 ml 400 ml 400 ml Balance 294 ml -800 ml 443 ml -400 ml IV Total 50 ml Tube Feeding 44 ml 393 ml Other 250 ml 400 ml Output Urine Total 800 ml 400 ml 400 ml # Bowel Movements 3 1 2 Result Diagram: 07/11/16 0735 07/11/16 0735 Imaging Last Impressions Chest X-Ray 06/27/16 0000 Signed Impressions: Service Date/Time: Monday, June 27, 2016 09:03 - CONCLUSION: No acute disease. There is no evidence of pneumonia. Dhruv Tenorio MD Abdomen/Pelvis CT 06/19/16 0000 Signed Impressions: Service Date/Time: Monday, June 20, 2016 02:30 - CONCLUSION: 1. Moderate stool throughout the colon. No obstruction or inflammatory changes. No small bowel distention. 2. Subacute appearing left hip fracture. 3. PEG tube without evidence of an acute complication. Gary Griffin MD Abdomen X-Ray 06/17/16 0000 Signed Impressions: Service Date/Time: Friday, June 17, 2016 11:51 - CONCLUSION: No abnormal dilatation of the large or small bowel to indicate an ileus. There is a gastrostomy tube in the stomach which appears to be somewhat distended with air. José Miguel Celis MD Objective Remarks no tracking, pupils equal tracheostomy in place lungs decreased breath sounds, no rales, no wheezes, no rhonchi regular rhythm abdomen- PEG in place lennon in place, mild penile swelling no leg swelling moves all extremities to withdrawal, flexion contractures of extremities cross legged.cross armed Urinary Catheter: Yes Lennon insert reason: Prolonged Immobilization Date of Insertion: Jul 05, 2016 A/P Problem List: (1) UTI (urinary tract infection) ICD Code: N39.0 Status: Acute (2) Alzheimer's dementia ICD Code: F02.80 Status: Chronic (3) Malnourished ICD Code: E46 Status: Acute (4) Acute respiratory failure with hypoxia and hypercarbia ICD Code: J96.01 Status: Acute (5) Hypertension ICD Code: I10 Status: Chronic (6) GERD (gastroesophageal reflux disease) ICD Code: K21.9 Status: Chronic (7) Diarrhea ICD Code: R19.7 Status: Acute (8) Fever ICD Code: R50.9 Status: Acute Assessment and Plan 80 years old male Alzheimer's dementia: Patient also with delirium, depression, anxiety. Continue Provigil. Acute hychronic respiratory failure S/P tracheostomy - t collar 28%. Pulmonary ff. Continue bronchodilators as needed. S/P tx Klebsiella/MRSA Pneumonia 07/10 S/P Tx St. epidermidis- on blood culture- possibly contaminant 07/10 On T piece. Levsin for secretions, Sputum culture growing Klebsiella pneumoniae and MRSA. Droplet/contact isolation. S/P Ceftriaxone and Vancomycin course 07/10 S/P Tx for Candiduria on IV fluconazole- s/p treatment 07/10 changed lennon 07/05 Hypertension: controlled. Anorexia, failure to thrive, moderate protein calorie malnutrition: Continue tube feeds with Glucerna.- tolerating well- no residuals increase tube feeding rate to 50 cc/hr- goal rate appreciate director of assessing seeing patient 07/05 GERD: Continue Pepcid. Reported Diarrhea 07/05: monitor. on Lactinex.- resolved Hyperglycemia of critical illness: Monitor Accu-Cheks and cover with sliding scale insulin. DVT prophylaxis: Heparin. PT/OT consult- to recommend any brace or splints etc to prevent further/ worsening contractures- at least intermittently- how many hours a day etc CM ff along with us- [place] planning-SNF- hopefully [place] [facility] when off IV antibiotics Joslyn Crisostomo MD Jul 11, 2016 09:52
--- NOTE | 2016-07-11 19:34 | HHI.PR ---
Subjective Remarks 80 YO male with Dementia, RF,Trach Pt aphasic Tolerates TF On Trach collar No fever Objective Vital Signs Vital Signs Date Time Temp Pulse Resp B/P Pulse Ox O2 Delivery O2 Flow Rate FiO2 07/11/16 16:18 96.6 106 22 119/58 100 07/11/16 13:01 T-Piece 6.00 28 Humidified 07/11/16 12:29 96.4 94 22 129/59 99 07/11/16 09:29 97 T-piece 6.00 28 07/11/16 08:01 96.7 98 22 147/69 96 07/11/16 06:54 99.5 89 20 118/55 98 07/11/16 03:59 T-Piece 6.00 28 Humidified 07/11/16 00:28 99.3 97 24 155/97 98 07/10/16 20:36 98.9 93 22 139/82 99 07/10/16 19:39 98 T-piece 6.00 28 I/O 07/10/16 07/10/16 07/10/16 07/11/16 07/11/16 07/11/16 07:00 15:00 23:00 07:00 15:00 23:00 Intake Total 294 ml 843 ml Output Total 800 ml 400 ml 400 ml 350 ml Balance 294 ml -800 ml 443 ml -400 ml -350 ml IV Total 50 ml Tube Feeding 44 ml 393 ml Other 250 ml 400 ml Output Urine Total 800 ml 400 ml 400 ml 350 ml # Bowel Movements 3 1 2 1 Result Diagram: 07/11/16 0735 07/11/1635 Objective Remarks GENERAL: Elderly frail male, mild sob SKIN: Warm and dry. HEAD: Normocephalic. EYES: No scleral icterus. No injection or drainage. NECK: Supple, trachea midline. No JVD or lymphadenopathy. CARDIOVASCULAR: Regular rate and rhythm without murmurs, gallops, or rubs. RESPIRATORY: Breath sounds equal bilaterally. No accessory muscle use. GASTROINTESTINAL: Abdomen soft, non-tender, nondistended. MUSCULOSKELETAL: No cyanosis, or edema. BACK: Nontender without obvious deformity. No CVA tenderness. A/P Assessment and Plan RF,s/p Trach Aphasia Dysphagia Dementia PLAN: Aerosol nebs Tracheal suction Levsin qid Stable on Trach collar Abx per ID Tube feeding 40 cc/hr Silverio Reyes MD Jul 11, 2016 19:34
[2016-07-12] VITALS (7 sets, daily range): BP systolic 124–157; BP diastolic 55–79; PULSE 78–105; RESP 20; TEMP 97.3–99.2; O2SAT 92–100
[2016-07-12] MEDS: CHLORHEXIDINE GLUCONATE 2 % 1 PACK (2 CLOTHS) TOP SCH (04:00)
[2016-07-12] MEDS: HEPARIN SODIUM - SQ 10,000 UNITS/ML VIAL SQ SCH ×3 (05:41→23:43)
[2016-07-12] MEDS: FREE WATER G-TUBE SCH ×5 (05:42→23:50)
[2016-07-12] MEDS: LOW DOSE INSULIN NOVOLOG SUPPLEMENTAL SCALE SQ SCH ×4 (05:43→18:27)
[2016-07-12] MEDS: POVIDONE IODINE 10% SOLN 480 ML BTL TOPICAL SCH ×2 (07:43→21:00)
[2016-07-12] MEDS: SODIUM CHLORIDE 0.9% FLUSH 5 ML FLUSH IV FLUSH SCH ×2 (07:43→23:43)
[2016-07-12] MEDS: MODAFINIL 200 MG TAB PO SCH (07:43)
[2016-07-12] MEDS: FAMOTIDINE 20 MG TAB NG SCH ×2 (07:43→23:42)
--- NOTE | 2016-07-12 10:45 | HHI.PR ---
Subjective Remarks Follow-up Acute on chronic respiratory failure S/P tracheostomy 07/12/16-patient seen and examined, no acute event overnight. Currently afebrile and nonverbal as well Objective Vitals Vital Signs Date Time Temp Pulse Resp B/P Pulse Ox O2 Delivery O2 Flow Rate FiO2 07/12/16 10:17 96 T-Piece 28 07/12/16 07:55 96 T-piece 28 07/12/16 07:49 98.4 93 20 157/69 98 07/12/16 07:37 T-Piece 28 Humidified 07/12/16 04:20 T-Piece 6.00 28 Humidified 07/12/16 04:00 97.3 78 20 127/79 92 07/12/16 00:00 98.9 105 20 124/66 99 07/11/16 20:00 97.7 108 20 124/58 98 07/11/16 16:18 96.6 106 22 119/58 100 07/11/16 13:01 T-Piece 6.00 28 Humidified 07/11/16 12:29 96.4 94 22 129/59 99 I/O 07/11/16 07/11/16 07/11/16 07/12/16 07/12/16 07/12/16 07:00 15:00 23:00 07:00 15:00 23:00 Output Total 400 ml 350 ml 400 ml 200 ml Balance -400 ml -350 ml -400 ml -200 ml Output Urine Total 400 ml 350 ml 400 ml 200 ml # Bowel Movements 2 1 Result Diagram: 07/11/16 0735 07/11/16 0735 Imaging Last Impressions Chest X-Ray 06/27/16 0000 Signed Impressions: Service Date/Time: Monday, June 27, 2016 09:03 - CONCLUSION: No acute disease. There is no evidence of pneumonia. Dhruv Tenorio MD Abdomen/Pelvis CT 06/19/16 0000 Signed Impressions: Service Date/Time: Monday, June 20, 2016 02:30 - CONCLUSION: 1. Moderate stool throughout the colon. No obstruction or inflammatory changes. No small bowel distention. 2. Subacute appearing left hip fracture. 3. PEG tube without evidence of an acute complication. Gary Griffin MD Abdomen X-Ray 06/17/16 0000 Signed Impressions: Service Date/Time: Friday, June 17, 2016 11:51 - CONCLUSION: No abnormal dilatation of the large or small bowel to indicate an ileus. There is a gastrostomy tube in the stomach which appears to be somewhat distended with air. José Miguel Celis MD Objective Remarks GENERAL: NAD with trach in place; nonverbal SKIN: Warm and dry. HEAD: Normocephalic. EYES: No scleral icterus. No injection or drainage. NECK: Supple, trachea midline. No JVD or lymphadenopathy. CARDIOVASCULAR: Regular rate and rhythm without murmurs, gallops, or rubs. RESPIRATORY: Breath sounds equal bilaterally. No accessory muscle use. GASTROINTESTINAL: Abdomen soft, non-tender, nondistended. PEG tube in place MUSCULOSKELETAL: No cyanosis, or edema. BACK: Nontender without obvious deformity. No CVA tenderness. Date of Insertion: Jul 05, 2016 A/P Problem List: (1) UTI (urinary tract infection) ICD Code: N39.0 Status: Acute (2) Alzheimer's dementia ICD Code: F02.80 Status: Chronic (3) Malnourished ICD Code: E46 Status: Acute (4) Acute respiratory failure with hypoxia and hypercarbia ICD Code: J96.01 Status: Acute (5) Hypertension ICD Code: I10 Status: Chronic (6) GERD (gastroesophageal reflux disease) ICD Code: K21.9 Status: Chronic (7) Diarrhea ICD Code: R19.7 Status: Acute (8) Fever ICD Code: R50.9 Status: Acute Assessment and Plan 80 years old male Alzheimer's dementia: Patient also with delirium, depression, anxiety. Continue Provigil. Acute on chronic respiratory failure S/P tracheostomy - t collar 28%. Pulmonary ff. Continue bronchodilators as needed. S/P tx Klebsiella/MRSA Pneumonia 07/10 S/P Tx St. epidermidis- On T piece. Levsin for secretions, Sputum culture growing Klebsiella pneumoniae and MRSA. Droplet/contact isolation. S/P Ceftriaxone and Vancomycin course 07/10 S/P Tx for Candiduria Completed IV fluconazole 07/10 Hypertension: controlled. Anorexia, failure to thrive, moderate protein calorie malnutrition: Continue tube feeds with Glucerna.- tolerating well- no residuals tube feeding rate @ 50 cc/hr- GERD: Continue Pepcid. Reported Diarrhea 07/05: monitor. on Lactinex.- resolved Hyperglycemia of critical illness: Monitor Accu-Cheks and cover with sliding scale insulin. DVT prophylaxis: Heparin. PT/OT consult CM ff along with us- [place] planning-SNF- hopefully [place] [facility] when off IV antibiotics Justyn Sylvester MD Jul 12, 2016 10:45
--- NOTE | 2016-07-12 16:46 | HHI.PR ---
Subjective Remarks 80 YO male with Dementia, RF,Trach Pt aphasic Tolerates TF On Trach collar No fever Off ABX Objective Vital Signs Vital Signs Date Time Temp Pulse Resp B/P Pulse Ox O2 Delivery O2 Flow Rate FiO2 07/12/16 15:56 97.9 94 20 135/55 100 07/12/16 12:11 98.0 94 20 131/79 94 07/12/16 10:17 96 T-Piece 28 07/12/16 07:55 96 T-piece 28 07/12/16 07:49 98.4 93 20 157/69 98 07/12/16 07:37 T-Piece 28 Humidified 07/12/16 04:20 T-Piece 6.00 28 Humidified 07/12/16 04:00 97.3 78 20 127/79 92 07/12/16 00:00 98.9 105 20 124/66 99 07/11/16 20:00 97.7 108 20 124/58 98 I/O 07/11/16 07/11/16 07/11/16 07/12/16 07/12/16 07/12/16 07:00 15:00 23:00 07:00 15:00 23:00 Output Total 400 ml 350 ml 400 ml 200 ml 275 ml Balance -400 ml -350 ml -400 ml -200 ml -275 ml Output Urine Total 400 ml 350 ml 400 ml 200 ml 275 ml # Bowel Movements 2 1 3 Result Diagram: 07/11/1673407/11/1635 Objective Remarks GENERAL: Elderly frail male, mild sob SKIN: Warm and dry. HEAD: Normocephalic. EYES: No scleral icterus. No injection or drainage. NECK: Supple, trachea midline. No JVD or lymphadenopathy. CARDIOVASCULAR: Regular rate and rhythm without murmurs, gallops, or rubs. RESPIRATORY: Breath sounds equal bilaterally. No accessory muscle use. GASTROINTESTINAL: Abdomen soft, non-tender, nondistended. MUSCULOSKELETAL: No cyanosis, or edema. BACK: Nontender without obvious deformity. No CVA tenderness. A/P Assessment and Plan RF,s/p Trach Aphasia Dysphagia Dementia PLAN: Aerosol nebs Tracheal suction Levsin qid Stable on Trach collar Tube feeding 40 cc/hr Stable off Abx Silverio Reyes MD Jul 12, 2016 16:46
[2016-07-13] VITALS (7 sets, daily range): BP systolic 108–142; BP diastolic 60–80; PULSE 95–113; RESP 19–22; TEMP 97.1–99.3; O2SAT 96–100
[2016-07-13] MEDS: LOW DOSE INSULIN NOVOLOG SUPPLEMENTAL SCALE SQ SCH ×4 (00:09→18:28)
[2016-07-13] MEDS: CHLORHEXIDINE GLUCONATE 2 % 1 PACK (2 CLOTHS) TOP SCH (04:00)
[2016-07-13] MEDS: FREE WATER G-TUBE SCH ×3 (05:52→18:00)
[2016-07-13] MEDS: HEPARIN SODIUM - SQ 10,000 UNITS/ML VIAL SQ SCH ×3 (05:53→21:53)
[2016-07-13] MEDS: POVIDONE IODINE 10% SOLN 480 ML BTL TOPICAL SCH ×2 (09:00→21:00)
[2016-07-13] MEDS: SODIUM CHLORIDE 0.9% FLUSH 5 ML FLUSH IV FLUSH SCH ×2 (09:12→21:45)
[2016-07-13] MEDS: HYOSCYAMINE 0.125 MG TAB PO PRN (09:13)
[2016-07-13] MEDS: MODAFINIL 200 MG TAB PO SCH (09:13)
[2016-07-13] MEDS: FAMOTIDINE 20 MG TAB NG SCH ×2 (09:13→21:45)
--- NOTE | 2016-07-13 10:50 | HHI.PR ---
Subjective Remarks Follow-up Acute on chronic respiratory failure S/P tracheostomy 07/12/16-patient seen and examined, no acute event overnight. Currently afebrile and nonverbal as well 07/13/16-patient seen and examined, no change and afebrile. Objective Vitals Vital Signs Date Time Temp Pulse Resp B/P Pulse Ox O2 Delivery O2 Flow Rate FiO2 07/13/16 09:55 98 T-piece 28 07/13/16 08:37 98.4 107 20 123/69 99 07/13/16 04:00 97.1 100 20 121/69 98 07/13/16 00:00 99.3 96 22 142/69 96 07/12/16 22:05 T-Piece 28 Humidified 07/12/16 20:00 99.2 90 20 143/71 94 07/12/16 15:56 97.9 94 20 135/55 100 07/12/16 12:11 98.0 94 20 131/79 94 I/O 07/12/16 07/12/16 07/12/16 07/13/16 07/13/16 07/13/16 07:00 15:00 23:00 07:00 15:00 23:00 Output Total 200 ml 275 ml 200 ml 400 ml Balance -200 ml -275 ml -200 ml -400 ml Output Urine Total 200 ml 275 ml 200 ml 400 ml # Bowel Movements 3 Result Diagram: 07/11/16 0735 07/13/16 0902 Objective Remarks GENERAL: NAD with trach in place; nonverbal SKIN: Warm and dry. HEAD: Normocephalic. EYES: No scleral icterus. No injection or drainage. NECK: Supple, trachea midline. No JVD or lymphadenopathy. CARDIOVASCULAR: Regular rate and rhythm without murmurs, gallops, or rubs. RESPIRATORY: Breath sounds equal bilaterally. No accessory muscle use. GASTROINTESTINAL: Abdomen soft, non-tender, nondistended. PEG tube in place MUSCULOSKELETAL: No cyanosis, or edema. BACK: Nontender without obvious deformity. No CVA tenderness. Date of Insertion: Jul 05, 2016 A/P Problem List: (1) UTI (urinary tract infection) ICD Code: N39.0 Status: Acute (2) Alzheimer's dementia ICD Code: F02.80 Status: Chronic (3) Malnourished ICD Code: E46 Status: Acute (4) Acute respiratory failure with hypoxia and hypercarbia ICD Code: J96.01 Status: Acute (5) Hypertension ICD Code: I10 Status: Chronic (6) GERD (gastroesophageal reflux disease) ICD Code: K21.9 Status: Chronic (7) Diarrhea ICD Code: R19.7 Status: Acute (8) Fever ICD Code: R50.9 Status: Acute Assessment and Plan 80 years old male Alzheimer's dementia: Patient also with delirium, depression, anxiety. Continue Provigil. Acute on chronic respiratory failure S/P tracheostomy - t collar 28%. Pulmonary ff. Continue bronchodilators as needed. S/P tx Klebsiella/MRSA Pneumonia 07/10 S/P Tx St. epidermidis- On T piece. Levsin for secretions, Sputum culture growing Klebsiella pneumoniae and MRSA. Repeat sputum culture pending. S/P Ceftriaxone and Vancomycin course 07/10 S/P Tx for Candiduria Completed IV fluconazole 07/10 Hypertension: controlled. Anorexia, failure to thrive, moderate protein calorie malnutrition: Continue tube feeds with Glucerna.- tolerating well- no residuals tube feeding rate @ 50 cc/hr- GERD: Continue Pepcid. Reported Diarrhea 07/05: monitor. on Lactinex.- resolved Hyperglycemia of critical illness: Monitor Accu-Cheks and cover with sliding scale insulin. DVT prophylaxis: Heparin. PT/OT consult CM ff along with us- [place] planning-SNF- hopefully [place] [facility] when off IV antibiotics Continue current treatment as of 07/13/16 Justyn Sylvester MD Jul 13, 2016 10:50
[2016-07-13] MEDS: MORPHINE SULFATE 4 MG/ML INJ IV PRN (14:02)
--- NOTE | 2016-07-13 18:13 | HHI.PR ---
Subjective Remarks 80 YO male with Dementia, RF,Trach Pt aphasic Tolerates TF On Trach collar No fever no new complaint Objective Vital Signs Vital Signs Date Time Temp Pulse Resp B/P Pulse Ox O2 Delivery O2 Flow Rate FiO2 07/13/16 16:49 98.7 113 22 113/69 100 07/13/16 12:50 98.5 95 20 138/80 98 07/13/16 09:55 98 T-piece 28 07/13/16 08:37 98.4 107 20 123/69 99 07/13/16 07:15 99 T-Piece 28 Humidified 07/13/16 04:00 97.1 100 20 121/69 98 07/13/16 00:00 99.3 96 22 142/69 96 07/12/16 22:05 T-Piece 28 Humidified 07/12/16 20:00 99.2 90 20 143/71 94 I/O 07/12/16 07/12/16 07/12/16 07/13/16 07/13/16 07/13/16 07:00 15:00 23:00 07:00 15:00 23:00 Output Total 200 ml 275 ml 200 ml 400 ml 350 ml Balance -200 ml -275 ml -200 ml -400 ml -350 ml Output Urine Total 200 ml 275 ml 200 ml 400 ml 350 ml # Bowel Movements 3 1 Result Diagram: 07/11/16 0735 07/13/16 0902 Objective Remarks GENERAL: Elderly frail male, mild sob SKIN: Warm and dry. HEAD: Normocephalic. EYES: No scleral icterus. No injection or drainage. NECK: Supple, trachea midline. No JVD or lymphadenopathy. CARDIOVASCULAR: Regular rate and rhythm without murmurs, gallops, or rubs. RESPIRATORY: Breath sounds equal bilaterally. No accessory muscle use. GASTROINTESTINAL: Abdomen soft, non-tender, nondistended. MUSCULOSKELETAL: No cyanosis, or edema. BACK: Nontender without obvious deformity. No CVA tenderness. A/P Assessment and Plan RF,s/p Trach Aphasia Dysphagia Dementia PLAN: Aerosol nebs Tracheal suction Levsin qid Stable on Trach collar Tube feeding 40 cc/hr Stable off Abx Silverio Reyes MD Jul 13, 2016 18:13
[2016-07-14] VITALS (7 sets, daily range): BP systolic 105–164; BP diastolic 41–90; PULSE 99–113; RESP 18–22; TEMP 98–98.8; O2SAT 94–100
[2016-07-14] MEDS: LOW DOSE INSULIN NOVOLOG SUPPLEMENTAL SCALE SQ SCH ×4 (00:54→17:16)
[2016-07-14] MEDS: CHLORHEXIDINE GLUCONATE 2 % 1 PACK (2 CLOTHS) TOP SCH (04:00)
[2016-07-14] MEDS: FREE WATER G-TUBE SCH ×4 (06:00→17:16)
[2016-07-14] MEDS: HEPARIN SODIUM - SQ 10,000 UNITS/ML VIAL SQ SCH ×3 (06:44→23:52)
[2016-07-14] MEDS: POVIDONE IODINE 10% SOLN 480 ML BTL TOPICAL SCH ×2 (09:00→21:00)
[2016-07-14] MEDS: SODIUM CHLORIDE 0.9% FLUSH 5 ML FLUSH IV FLUSH SCH ×2 (09:21→23:54)
[2016-07-14] MEDS: MODAFINIL 200 MG TAB PO SCH (09:22)
[2016-07-14] MEDS: FAMOTIDINE 20 MG TAB NG SCH ×2 (09:22→23:51)
--- NOTE | 2016-07-14 10:41 | HHI.PR ---
Subjective Remarks Follow-up Acute on chronic respiratory failure S/P tracheostomy 07/12/16-patient seen and examined, no acute event overnight. Currently afebrile and nonverbal as well 07/13/16-patient seen and examined, no change and afebrile. 07/14/16-patient seen and examined; change in respiratory status. Sputum still positive for MRSA Objective Vitals Vital Signs Date Time Temp Pulse Resp B/P Pulse Ox O2 Delivery O2 Flow Rate FiO2 07/14/16 08:47 96 T-piece 5.00 28 07/14/16 08:19 98.3 99 20 109/60 94 07/14/16 05:52 98.3 113 18 164/90 99 07/14/16 00:54 T-Piece 28 Humidified 07/14/16 00:11 98.7 102 19 114/62 100 07/13/16 20:08 98.8 110 19 108/60 99 07/13/16 16:49 98.7 113 22 113/69 100 07/13/16 12:50 98.5 95 20 138/80 98 I/O 07/13/16 07/13/16 07/13/16 07/14/16 07/14/16 07/14/16 07:00 15:00 23:00 07:00 15:00 23:00 Intake Total 1023 ml Output Total 400 ml 700 ml 300 ml Balance -400 ml 323 ml -300 ml Tube Feeding 1023 ml Output Urine Total 400 ml 700 ml 300 ml # Bowel Movements 1 1 Result Diagram: 07/11/16 0735 07/13/16 0902 Objective Remarks GENERAL: NAD with trach in place; nonverbal SKIN: Warm and dry. HEAD: Normocephalic. EYES: No scleral icterus. No injection or drainage. NECK: Supple, trachea midline. No JVD or lymphadenopathy. CARDIOVASCULAR: Regular rate and rhythm without murmurs, gallops, or rubs. RESPIRATORY: Breath sounds equal bilaterally. No accessory muscle use. GASTROINTESTINAL: Abdomen soft, non-tender, nondistended. PEG tube in place MUSCULOSKELETAL: No cyanosis, or edema. BACK: Nontender without obvious deformity. No CVA tenderness. Date of Insertion: Jul 05, 2016 A/P Problem List: (1) UTI (urinary tract infection) ICD Code: N39.0 Status: Acute (2) Alzheimer's dementia ICD Code: F02.80 Status: Chronic (3) Malnourished ICD Code: E46 Status: Acute (4) Acute respiratory failure with hypoxia and hypercarbia ICD Code: J96.01 Status: Acute (5) Hypertension ICD Code: I10 Status: Chronic (6) GERD (gastroesophageal reflux disease) ICD Code: K21.9 Status: Chronic (7) Diarrhea ICD Code: R19.7 Status: Acute (8) Fever ICD Code: R50.9 Status: Acute Assessment and Plan 80 years old male Alzheimer's dementia: Patient also with delirium, depression, anxiety. Continue Provigil. Acute on chronic respiratory failure S/P tracheostomy - t collar 28%. Pulmonary ff. Continue bronchodilators as needed. S/P tx Klebsiella/MRSA Pneumonia 07/10 S/P Tx St. epidermidis- On T piece. Levsin for secretions, Sputum culture growing Klebsiella pneumoniae and MRSA. Repeat sputum culture 07/12/16 +MRSA S/P Ceftriaxone and Vancomycin course 07/10 S/P Tx for Candiduria Completed IV fluconazole 07/10 Hypertension: controlled. Anorexia, failure to thrive, moderate protein calorie malnutrition: Continue tube feeds with Glucerna.- tolerating well- no residuals tube feeding rate @ 50 cc/hr- GERD: Continue Pepcid. Reported Diarrhea 07/05: monitor. on Lactinex.- resolved Hyperglycemia of critical illness: Monitor Accu-Cheks and cover with sliding scale insulin. DVT prophylaxis: Heparin. PT/OT consult CM ff along with us- [place] planning-SNF- hopefully [place] [facility] when off IV antibiotics Continue current treatment as of 07/14/16 Justyn Sylvester MD Jul 14, 2016 10:41
--- NOTE | 2016-07-14 19:18 | HHI.PR ---
Subjective Remarks 80 YO male with Dementia, RF,Trach Pt aphasic Tolerates TF On Trach collar No fever Objective Vital Signs Vital Signs Date Time Temp Pulse Resp B/P Pulse Ox O2 Delivery O2 Flow Rate FiO2 07/14/16 16:02 98.8 102 19 143/65 99 07/14/16 12:17 98.0 101 20 119/79 98 07/14/16 08:47 96 T-piece 5.00 28 07/14/16 08:19 98.3 99 20 109/60 94 07/14/16 07:15 T-Piece 28 Humidified 07/14/16 05:52 98.3 113 18 164/90 99 07/14/16 00:54 T-Piece 28 Humidified 07/14/16 00:11 98.7 102 19 114/62 100 07/13/16 20:08 98.8 110 19 108/60 99 I/O 07/13/16 07/13/16 07/13/16 07/14/16 07/14/16 07/14/16 07:00 15:00 23:00 07:00 15:00 23:00 Intake Total 1023 ml Output Total 400 ml 700 ml 300 ml 900 ml Balance -400 ml 323 ml -300 ml -900 ml Tube Feeding 1023 ml Output Urine Total 400 ml 700 ml 300 ml 900 ml # Bowel Movements 1 1 3 Result Diagram: 07/11/16 0735 07/13/16 0902 Objective Remarks GENERAL: Elderly frail male, mild sob SKIN: Warm and dry. HEAD: Normocephalic. EYES: No scleral icterus. No injection or drainage. NECK: Supple, trachea midline. No JVD or lymphadenopathy. CARDIOVASCULAR: Regular rate and rhythm without murmurs, gallops, or rubs. RESPIRATORY: Breath sounds equal bilaterally. No accessory muscle use. GASTROINTESTINAL: Abdomen soft, non-tender, nondistended. MUSCULOSKELETAL: No cyanosis, or edema. BACK: Nontender without obvious deformity. No CVA tenderness. A/P Assessment and Plan RF,s/p Trach Aphasia Dysphagia Dementia PLAN: Aerosol nebs Tracheal suction Levsin qid Stable on Trach collar Tube feeding 40 cc/hr Stable off Abx Avaialable prn over weekend. Silverio Reyes MD Jul 14, 2016 19:18
[2016-07-14] MEDS: ACETAMINOPHEN 325 MG TAB PO PRN (23:52)
[2016-07-14] MEDS: HYOSCYAMINE 0.125 MG TAB PO PRN (23:53)
[2016-07-15] VITALS (8 sets, daily range): BP systolic 99–162; BP diastolic 50–83; PULSE 90–105; RESP 20–25; TEMP 97.4–100; O2SAT 96–100
[2016-07-15] MEDS: LOW DOSE INSULIN NOVOLOG SUPPLEMENTAL SCALE SQ SCH ×5 (01:32→18:00)
[2016-07-15] MEDS: CHLORHEXIDINE GLUCONATE 2 % 1 PACK (2 CLOTHS) TOP SCH (03:55)
[2016-07-15] MEDS: HEPARIN SODIUM - SQ 10,000 UNITS/ML VIAL SQ SCH ×3 (04:52→23:56)
[2016-07-15] MEDS: HYOSCYAMINE 0.125 MG TAB PO PRN (04:52)
[2016-07-15] MEDS: ACETAMINOPHEN 325 MG TAB PO PRN (04:52)
[2016-07-15] MEDS: FREE WATER G-TUBE SCH ×5 (04:53→23:57)
[2016-07-15] MEDS: POVIDONE IODINE 10% SOLN 480 ML BTL TOPICAL SCH ×2 (09:00→21:00)
[2016-07-15] MEDS: FAMOTIDINE 20 MG TAB NG SCH ×2 (09:34→23:55)
[2016-07-15] MEDS: MODAFINIL 200 MG TAB PO SCH (09:34)
[2016-07-15] MEDS: SODIUM CHLORIDE 0.9% FLUSH 5 ML FLUSH IV FLUSH SCH ×2 (09:35→23:57)
--- NOTE | 2016-07-15 11:15 | HHI.PR ---
Subjective Remarks Follow-up Acute on chronic respiratory failure S/P tracheostomy 07/12/16-patient seen and examined, no acute event overnight. Currently afebrile and nonverbal as well 07/13/16-patient seen and examined, no change and afebrile. 07/14/16-patient seen and examined; change in respiratory status. Sputum still positive for MRSA 07/15/16-patient seen and examined, currently on T piece 28%, MAXIMUM TEMPERATURE 100.0 at midnight Objective Vitals Vital Signs Date Time Temp Pulse Resp B/P Pulse Ox O2 Delivery O2 Flow Rate FiO2 07/15/16 09:46 97 T-Piece 28 07/15/16 08:00 97.4 102 24 162/81 99 07/15/16 03:17 99.7 102 24 115/83 99 07/15/16 03:00 T-Piece 07/15/16 00:29 100.0 105 22 105/50 96 07/15/16 00:04 99 T-piece 6.00 28 07/14/16 20:11 98.6 107 22 105/41 96 07/14/16 16:02 98.8 102 19 143/65 99 07/14/16 12:17 98.0 101 20 119/79 98 I/O 07/14/16 07/14/16 07/14/16 07/15/16 07/15/16 07/15/16 07:00 15:00 23:00 07:00 15:00 23:00 Output Total 300 ml 1200 ml Balance -300 ml -1200 ml Output Urine Total 300 ml 1200 ml # Bowel Movements 1 3 Result Diagram: 07/11/16 0735 07/13/16 0902 Objective Remarks GENERAL: NAD with trach in place; nonverbal SKIN: Warm and dry. HEAD: Normocephalic. EYES: No scleral icterus. No injection or drainage. NECK: Supple, trachea midline. No JVD or lymphadenopathy. CARDIOVASCULAR: Regular rate and rhythm without murmurs, gallops, or rubs. RESPIRATORY: Breath sounds equal bilaterally. No accessory muscle use. GASTROINTESTINAL: Abdomen soft, non-tender, nondistended. PEG tube in place MUSCULOSKELETAL: No cyanosis, or edema. BACK: Nontender without obvious deformity. No CVA tenderness. Date of Insertion: Jul 05, 2016 A/P Problem List: (1) UTI (urinary tract infection) ICD Code: N39.0 Status: Acute (2) Alzheimer's dementia ICD Code: F02.80 Status: Chronic (3) Malnourished ICD Code: E46 Status: Acute (4) Acute respiratory failure with hypoxia and hypercarbia ICD Code: J96.01 Status: Acute (5) Hypertension ICD Code: I10 Status: Chronic (6) GERD (gastroesophageal reflux disease) ICD Code: K21.9 Status: Chronic (7) Diarrhea ICD Code: R19.7 Status: Acute (8) Fever ICD Code: R50.9 Status: Acute Assessment and Plan 80 years old male Alzheimer's dementia: Patient also with delirium, depression, anxiety. Continue Provigil. Acute on chronic respiratory failure S/P tracheostomy - t collar 28%. Pulmonary ff. Continue bronchodilators as needed. S/P tx Klebsiella/MRSA Pneumonia 07/10 S/P Tx St. epidermidis- On T piece 28%. Levsin for secretions, Sputum culture growing Klebsiella pneumoniae and MRSA. Repeat sputum culture 07/12/16 +MRSA S/P Ceftriaxone and Vancomycin course 07/10 however had MAXIMUM TEMPERATURE of 100.0 at midnight S/P Tx for Candiduria Completed IV fluconazole 07/10 Hypertension: controlled. Anorexia, failure to thrive, moderate protein calorie malnutrition: Continue tube feeds with Glucerna.- tolerating well- no residuals tube feeding rate @ 50 cc/hr- GERD: Continue Pepcid. Reported Diarrhea 07/05: monitor. on Lactinex.- resolved Hyperglycemia of critical illness: Monitor Accu-Cheks and cover with sliding scale insulin. DVT prophylaxis: Heparin. PT/OT consult CM ff along with us- [place] planning-SNF- hopefully [place] [facility] when off IV antibiotics Justyn Sylvester MD Jul 15, 2016 11:15
[2016-07-16] VITALS (7 sets, daily range): BP systolic 102–116; BP diastolic 55–81; PULSE 76–108; RESP 18–25; TEMP 97.4–98.9; O2SAT 96–98
[2016-07-16] MEDS: LOW DOSE INSULIN NOVOLOG SUPPLEMENTAL SCALE SQ SCH ×4 (00:16→18:00)
[2016-07-16] MEDS: CHLORHEXIDINE GLUCONATE 2 % 1 PACK (2 CLOTHS) TOP SCH (04:00)
[2016-07-16] MEDS: FREE WATER G-TUBE SCH ×4 (06:00→23:44)
[2016-07-16] MEDS: HEPARIN SODIUM - SQ 10,000 UNITS/ML VIAL SQ SCH ×3 (06:33→23:43)
[2016-07-16] MEDS: POVIDONE IODINE 10% SOLN 480 ML BTL TOPICAL SCH ×2 (09:00→21:00)
[2016-07-16] MEDS: SODIUM CHLORIDE 0.9% FLUSH 5 ML FLUSH IV FLUSH SCH ×2 (09:00→23:44)
[2016-07-16] MEDS: FAMOTIDINE 20 MG TAB NG SCH ×2 (09:45→23:44)
[2016-07-16] MEDS: MODAFINIL 200 MG TAB PO SCH (09:45)
--- NOTE | 2016-07-16 13:01 | HHI.PR ---
Subjective Remarks f/u acute resp failure patient continues to be non responsive. nurse at bedside stated no new issues or concerns. Objective Vitals Vital Signs Date Time Temp Pulse Resp B/P Pulse Ox O2 Delivery O2 Flow Rate FiO2 07/16/16 12:00 98.0 76 24 116/55 97 07/16/16 09:37 96 T-piece 6.00 28 07/16/16 09:35 97 T-Piece 28 07/16/16 08:00 98.9 86 21 113/60 97 07/16/16 04:31 97.9 98 18 110/60 96 07/16/16 03:30 T-Piece 28 07/16/16 00:43 97.4 100 18 112/61 96 07/15/16 20:55 98.2 104 20 104/54 97 07/15/16 16:00 98.1 90 25 99/60 100 I/O 07/15/16 07/15/16 07/15/16 07/16/16 07/16/16 07/16/16 07:00 15:00 23:00 07:00 15:00 23:00 Output Total 325 ml 350 ml 300 ml Balance -325 ml -350 ml -300 ml Output Urine Total 325 ml 350 ml 300 ml # Bowel Movements 1 Result Diagram: 07/13/16901 Objective Remarks Gen NAD HEENT trach in place. CV RRR. r/m/g Ext + contractures. Neuro does not follow commands. Medications and IVs Current Medications Vancomycin HCl 1000 mg/Sodium Chloride 250 ml @ 250 mls/hr ONCE STAT IV Last administered on 06/04/16 03:23; Start 06/04/16 at 02:19; Stop 06/04/16 at 03:18 ; Status DC Piperacillin Sod/ Tazobactam Sod 100 ml @ 200 mls/hr ONCE STAT IV Last administered on 06/04/16 02:54; Start 06/04/16 at 02:19; Stop 06/04/16 at 02:48 ; Status DC Sodium Chloride (NS 500 ml Inj) 500 ml @ 500 mls/hr BOLUS ONCE IV Last administered on 06/04/16 02:35; Start 06/04/16 at 02:30; Stop 06/04/16 at 03:29 ; Status DC Etomidate (Amidate Inj) 20 mg ONCE ONCE IVP Last administered on 06/04/16 02: 45; Start 06/04/16 at 02:30; Stop 06/04/16 at 02:31; Status DC Vecuronium Schwertner (Norcuron 10 Mg Inj) 10 mg ONCE ONCE IV Last administered on 06/04/16 02:45; Start 06/04/16 at 02:30; Stop 06/04/16 at 02:31; Status DC IV Flush (NS Flush) 2 ml UNSCH PRN IVF FLUSH AFTER USING IV ACCESS; Start 06/04 at 02:30; Stop 06/04/16 at 04:21; Status DC Acetaminophen 650 mg 650 mg ONCE ONCE RECTAL Last administered on 06/04/16 02 :54; Start 06/04/16 at 02:30; Stop 06/04/16 at 02:31; Status DC Sodium Chloride (NS 500 ml Inj) 500 ml @ 500 mls/hr BOLUS ONCE IV Last administered on 06/04/16 04:11; Start 06/04/16 at 03:45; Stop 06/04/16 at 04:44 ; Status DC Insulin Human Regular (NovoLIN R INJ) 4 units ONCE ONCE IVP Last administered on 06/04/16 04:10; Start 06/04/16 at 04:00; Stop 06/04/16 at 04:01; Status DC IV Flush (NS Flush) 2 ml UNSCH PRN IV FLUSH FLUSH AFTER USING IV ACCESS Last administered on 07/02/16 05:00; Start 06/04/16 at 04:15 IV Flush (NS Flush) 2 ml BID IV FLUSH Last administered on 07/16/16 09:00; Start 06/04/16 at 09:00 Acetaminophen (Tylenol) 650 mg Q6H PRN PO PAIN 1-10 AND/OR FEVER >101F Last administered on 07/15/16 04:52; Start 06/04/16 at 04:15 Morphine Sulfate (Morphine Inj) 2 mg Q2H PRN IV PAIN SCALE 6 TO 10 Last administered on 07/13/16 14:02; Start 06/04/16 at 04:15 Pantoprazole Sodium (Protonix Inj) 40 mg DAILY IV Last administered on 08:50; Start 06/04/16 at 09:00; Stop 06/13/16 at 14:12; Status DC Ondansetron HCl (Zofran Inj) 4 mg Q6H PRN IV NAUSEA OR VOMITING Last administered on 06/19/16 04:27; Start 06/04/16 at 04:15 Albuterol/ Ipratropium (Duoneb Neb) 1 ampule Q4HR NEB PRN INH WHEEZING Last administered on 07/01/16 06:06; Start 06/04/16 at 04:15 Heparin Sodium (Porcine) (Heparin Inj) 5,000 units Q12HR SQ Last administered on 06/05/16 08:10; Start 06/04/16 at 09:00; Stop 06/10/16 at 12:42; Status DC Miscellaneous Information 1 [id number] XX Last administered on 06/04/16 04:15; Start 06/04/16 at 04:15 Chlorhexidine Gluconate (Chlorhexidine 2% Cloth) 3 pack Taper DAILY@04 TOP Last administered on 06/25/16 04:00; Start 06/05/16 at 04:00; Stop 06/01/17 at 03:59 Chlorhexidine Gluconate 3 pack 3 pack UNSCH PRN TOP HYGIENIC CARE; Start at 04:15 Propofol (Diprivan 1000 Mg/100ml Inj) 100 ml @ 0 mls/hr TITRATE IV Last administered on 06/11/16 20:38; Start 06/04/16 at 04:15; Stop 06/22/16 at 15:13 ; Status DC Dextrose (D50w (Vial) Inj) 25 ml UNSCH PRN IV PUSH HYPOGLYCEMIA-SEE COMMENTS; Start 06/04/16 at 04:15; Stop 06/04/16 at 10:27; Status DC Glucagon (Glucagon Inj) 1 mg UNSCH PRN OTHER HYPOGLYCEMIA-SEE COMMENTS; Start 06/04/16 at 04:15; Stop 06/04/16 at 10:27; Status DC Insulin Aspart 1 1 Q4HR SQ Last administered on 06/04/16 07:56; Start at 04:00; Stop 06/04/16 at 09:54; Status DC Propofol (Diprivan 1000 Mg/100ml Inj) 100 ml @ 0 mls/hr TITRATE IV ; Start 06/04 at 04:15; Stop 06/04/16 at 04:21; Status DC Dextrose (D50w (Vial) Inj) 25 ml UNSCH PRN IV PUSH HYPOGLYCEMIA - SEE COMMENTS ; Start 06/04/16 at 04:30; Status Cancel Glucagon 1 mg 1 mg UNSCH PRN OTHER HYPOGLYCEMIA-SEE COMMENTS; Start 06/04/16 at 04:30; Status Cancel Lactated Ringer's 1,000 ml @ 175 mls/hr Q5H43M IV Last administered on 04:45; Start 06/04/16 at 04:45; Stop 06/04/16 at 14:47; Status DC Sodium Chloride 1,000 ml @ 1,000 mls/hr Q1H IV Last administered on 06/04/16 08:45; Start 06/04/16 at 07:45; Stop 06/04/16 at 09:44; Status DC Insulin Human Regular/Sodium Chloride (NovoLIN R (IV INFUSION)/NS Inj) 100 ml @ 0 mls/hr TITRATE IV Last administered on 06/04/16 11:31; Start 06/04/16 at 11: 00; Stop 06/05/16 at 03:52; Status DC Dextrose (D50w (Vial) Inj) 25 ml UNSCH PRN IV PUSH SEE LABEL COMMENTS; Start at 10:00; Stop 06/05/16 at 03:52; Status DC Miscellaneous Information 1 1 ONCE ONCE XX Last administered on 06/04/16 10: 00; Start 06/04/16 at 10:00; Stop 06/04/16 at 10:32; Status DC Pharmacy Profile Note 0 ml @ 0 mls/hr UNSCH OTHER ; Start 06/04/16 at 10:00; Stop 06/06/16 at 13:28; Status DC Piperacillin Sod/ Tazobactam Sod (Zosyn 2.25 Gm Premix) 50 ml @ 100 mls/hr Q6H IV Last administered on 06/05/16 12:17; Start 06/04/16 at 12:00; Stop at 14:02; Status DC Water 300 ml 300 ml Q6HR G-TUBE Last administered on 06/04/16 11:32; Start at 12:00; Stop 06/04/16 at 14:45; Status DC Sodium Chloride 1,000 ml @ 999 mls/hr BOLUS ONCE IV Last administered on 06/04 13:30; Start 06/04/16 at 13:30; Stop 06/04/16 at 14:30; Status DC Sodium Chloride (NS 1000 ml Inj) 1,000 ml @ 999 mls/hr BOLUS ONCE IV Last administered on 06/04/16 13:30; Start 06/04/16 at 13:30; Stop 06/04/16 at 14:30 ; Status DC Water 300 ml 300 ml Q4HR G-TUBE Last administered on 06/15/16 12:00; Start at 16:00; Stop 06/15/16 at 13:08; Status DC Potassium Chloride 100 ml @ 50 mls/hr Q2H PRN IV For Potassium 2.8 - 3.2 mEq/ L Last administered on 06/13/16 08:49; Start 06/04/16 at 14:45; Stop 06/22/16 at 15:13; Status DC Potassium Chloride (KCl 20 Meq Premix Inj) 100 ml @ 50 mls/hr Q2H PRN IV For Potassium 2.8 - 3.2 mEq/L; Start 06/04/16 at 14:45; Stop 06/22/16 at 15:13; Status DC Potassium Chloride 40 meq 40 meq UNSCH PRN PO/TUBE For Potassium 3.3 - 3.5 mEq/ L; Start 06/04/16 at 14:45; Stop 06/22/16 at 15:14; Status DC Potassium Chloride 100 ml @ 25 mls/hr UNSCH PRN IV For Potassium 3.3 - 3.5 mEq /L Last administered on 06/09/16 08:07; Start 06/04/16 at 14:45; Stop 06/22/16 at 15:14; Status DC Potassium Chloride 100 ml @ 50 mls/hr Q2H PRN IV For Potassium 3.3 - 3.5 mEq/L ; Start 06/04/16 at 14:45; Stop 06/22/16 at 15:14; Status DC Magnesium Sulfate/ Sodium Chloride (Magnesium Sulfate Inj/NS Inj) 100 ml @ 50 mls/hr UNSCH PRN IV For Magnesium 0.9 - 1.1 mg/dL; Start 06/04/16 at 14:45; Stop 06/22/16 at 15:14; Status DC Magnesium Oxide 800 mg 800 mg UNSCH PRN PO For Magnesium 1.2 - 1.6 mg/dL; Start 06/04/16 at 14:45; Stop 06/22/16 at 15:14; Status DC Magnesium Sulfate/ Sodium Chloride (Magnesium Sulfate Inj/NS Inj) 100 ml @ 50 mls/hr UNSCH PRN IV For Magnesium 1.2 - 1.6 mg/dL; Start 06/04/16 at 14:45; Stop 06/22/16 at 15:14; Status DC Potassium Phosphate 2000 mg 2,000 mg Q4H PRN PO For Phosphorus < 2.5 mg/dL Last administered on 06/16/16 12:10; Start 06/04/16 at 14:45; Stop 06/22/16 at 15:15; Status DC Sodium Phosphate/ Sodium Chloride (Sodium Phosphate Inj/NS 250 ml Inj) 250 ml @ 42 mls/hr UNSCH PRN IV For Phosphorus < 2.5 mg/dL Last administered on 17:53; Start 06/04/16 at 14:45; Stop 06/22/16 at 15:15; Status DC Potassium Chloride (KCl 40 Meq/30 ml Liq) 40 meq UNSCH PRN PO/TUBE SEE LABEL COMMENTS; Start 06/04/16 at 14:45; Stop 06/22/16 at 15:15; Status DC Potassium Phosphate 2000 mg 2,000 mg UNSCH PRN PO/TUBE SEE LABEL COMMENTS; Start 06/04/16 at 14:45; Stop 06/22/16 at 15:15; Status DC Potassium Phosphate 30 mmol/ Sodium Chloride 260 ml @ 42 mls/hr UNSCH PRN IV SEE LABEL COMMENTS Last administered on 06/17/16 18:17; Start 06/04/16 at 14:45 ; Stop 06/22/16 at 15:15; Status DC Dextrose 1,000 ml @ 150 mls/hr Q6H40M IV Last administered on 06/04/16 21:40 ; Start 06/04/16 at 14:45; Stop 06/05/16 at 01:33; Status DC Sodium Chloride 1,000 ml @ 999 mls/hr BOLUS ONCE IV Last administered on 06/04 17:45; Start 06/04/16 at 17:45; Stop 06/04/16 at 18:45; Status DC Lactated Ringer's (Lr 1000 ml Inj) 1,000 ml @ 75 mls/hr [id number] IV Last administered on 06/05/16 18:23; Start 06/05/16 at 01:45; Stop 06/06/16 at 07:34 ; Status DC Miscellaneous Information 1 1 ONCE ONCE XX ; Start 06/05/16 at 04:00; Stop at 04:00; Status DC Insulin Human Regular/Sodium Chloride (NovoLIN R (IV INFUSION)/NS Inj) 100 ml @ 0 mls/hr TITRATE IV Last administered on 06/05/16 06:30; Start 06/05/16 at 04: 00; Stop 06/05/16 at 11:56; Status DC Dextrose 25 ml 25 ml UNSCH PRN IV PUSH HYPOGLYCEMIA- SEE COMMENTS; Start at 04:00; Stop 06/05/16 at 11:58; Status DC Calcium Gluconate/ Sodium Chloride (Calcium Gluconate Inj/NS Inj) 110 ml @ 110 mls/hr ONCE ONCE IV Last administered on 06/05/16 11:08; Start 06/05/16 at 10 :00; Stop 06/05/16 at 10:59; Status DC Albuterol/ Ipratropium 1 ampule 1 ampule Q6HR NEB NEB Last administered on 08:39; Start 06/05/16 at 10:00; Stop 06/13/16 at 09:58; Status DC Vancomycin HCl/ Sodium Chloride (Vancomycin Inj/ NS 250 ml Inj) 250 ml @ 250 mls/hr Q24H IV Last administered on 06/05/16 12:18; Start 06/05/16 at 10:00; Stop 06/06/16 at 10:04; Status DC Miscellaneous Information SPECIFIC LAB TO BE ROYA... ONCE ONCE XX ; Start at 09:45; Stop 06/08/16 at 09:46; Status Cancel Dextrose (D50w (Vial) Inj) 25 ml UNSCH PRN IV PUSH HYPOGLYCEMIA-SEE COMMENTS; Start 06/05/16 at 12:00; Stop 06/15/16 at 13:39; Status DC Glucagon (Glucagon Inj) 1 mg UNSCH PRN OTHER HYPOGLYCEMIA-SEE COMMENTS; Start 06/05/16 at 12:00; Stop 06/20/16 at 17:08; Status DC Insulin Human Regular 1 1 Q4H SQ Last administered on 06/11/16 16:00; Start at 12:00; Stop 06/11/16 at 17:21; Status DC Piperacillin Sod/ Tazobactam Sod 50 ml @ 100 mls/hr Q8H IV Last administered on 06/13/16 03:53; Start 06/05/16 at 20:00; Stop 06/13/16 at 12:14; Status DC Sodium Chloride 1,000 ml @ 84 mls/hr [id number] IV Last administered on 07:35; Start 06/06/16 at 07:45; Stop 06/07/16 at 11:15; Status DC Vancomycin HCl 1250 mg/Sodium Chloride 250 ml @ 250 mls/hr Q24H IV ; Start at 10:00; Stop 06/06/16 at 10:09; Status DC Vancomycin HCl 1250 mg/Sodium Chloride 262.5 ml @ 262.5 mls/ hr Q24H IV Last administered on 06/06/16 10:26; Start 06/06/16 at 10:00; Stop 06/06/16 at 13:28 ; Status DC Azithromycin 500 mg/Sodium Chloride 250 ml @ 250 mls/hr Q24H IV Last administered on 06/12/16 21:24; Start 06/06/16 at 21:00; Stop 06/13/16 at 12:14 ; Status DC Sodium Chloride (1/2 NS 1000 ml Inj) 1,000 ml @ 84 mls/hr [id number] IV Last administered on 06/12/16 21:23; Start 06/07/16 at 11:15; Stop 06/13/16 at 14:12 ; Status DC Docusate Sodium 100 mg 100 mg Q12HR PO Last administered on 06/23/16 08:40; Start 06/09/16 at 21:00; Stop 06/23/16 at 14:57; Status DC Potassium Phosphate/Sodium Chloride (Potassium Phosphate Inj/NS 250 ml Inj) 260 ml @ 43.333 mls/ hr ONCE ONCE IV Last administered on 06/10/16 13:02; Start 06/10/16 at 15:00; Stop 06/10/16 at 20:59; Status DC Heparin Sodium (Porcine) (Heparin Inj) 5,000 units Q12HR SQ Last administered on 06/18/16 08:17; Start 06/10/16 at 15:15; Stop 06/18/16 at 08:40; Status DC Dextrose (D50w (Vial) Inj) 25 ml UNSCH PRN IV PUSH HYPOGLYCEMIA-SEE COMMENTS; Start 06/11/16 at 17:30; Stop 06/20/16 at 17:08; Status DC Insulin Human Regular (NovoLIN R SUPPLEMENTAL SCALE) 1 Q4HR SQ Last administered on 06/20/16 08:25; Start 06/11/16 at 20:00; Stop 06/20/16 at 17:08 ; Status DC Modafinil (Provigil) 200 mg DAILY PO Last administered on 06/24/16 07:51; Start 06/12/16 at 07:00; Stop 06/24/16 at 13:50; Status DC Rocuronium Schwertner (Zemuron Inj) 50 mg STK-MED ONCE .ROUTE ; Start 06/13/16 at 11:03; Stop 06/13/16 at 11:04; Status DC Rocuronium Schwertner 50 mg 50 mg STK-MED ONCE .ROUTE ; Start 06/13/16 at 11:05; Stop 06/13/16 at 11:06; Status DC Cefepime HCl/ Sodium Chloride (Maxipime Inj/NS Inj) 100 ml @ 200 mls/hr Q8H IV Last administered on 06/20/16 03:50; Start 06/13/16 at 13:00; Stop 06/20/16 at 13:05; Status DC Fentanyl Citrate (fentaNYL INJ) 100 mcg STK-MED ONCE .ROUTE Last administered on 06/13/16 12:49; Start 06/13/16 at 12:25; Stop 06/13/16 at 12:26; Status DC Famotidine 20 mg 20 mg BID NG Last administered on 07/16/16 09:45; Start 06/13 at 21:00 Cefepime HCl/ Sodium Chloride (Maxipime Inj/NS Inj) 100 ml @ 200 mls/hr Q8H IV ; Start 06/13/16 at 16:00; Status Cancel Furosemide (Lasix Inj) 40 mg ONCE ONCE IV PUSH Last administered on 06/14/16 09:26; Start 06/14/16 at 08:30; Stop 06/14/16 at 08:31; Status DC Water (Free Water) 250 ml Q6HR G-TUBE Last administered on 07/16/16 12:00; Start 06/15/16 at 18:00 Albuterol/ Ipratropium (Duoneb Neb) 1 ampule Q6HR NEB NEB Last administered on 06/15/16 20:10; Start 06/15/16 at 16:00; Stop 06/15/16 at 22:00; Status DC Albuterol/ Ipratropium 1 ampule 1 ampule Q6HR NEB NEB Last administered on 15:30; Start 06/15/16 at 16:00; Stop 06/19/16 at 16:00; Status DC Potassium Phosphate/Sodium Chloride (Potassium Phosphate Inj/NS 250 ml Inj) 260 ml @ 43.333 mls/ hr ONCE ONCE IV ; Start 06/16/16 at 09:00; Stop 06/16/16 at 14:59; Status DC Heparin Sodium (Porcine) (Heparin Inj) 5,000 units Q8HR SQ Last administered on 07/16/16 06:33; Start 06/18/16 at 14:00 Metoclopramide HCl (Reglan Inj) 5 mg Q8HR IV PUSH Last administered on 13:08; Start 06/18/16 at 22:00; Stop 06/23/16 at 14:57; Status DC Magnesium Citrate (Citroma Liq) 300 ml ONCE ONCE PO ; Start 06/18/16 at 15:30; Stop 06/18/16 at 15:30; Status DC Polyethylene Glycol (Miralax) 17 gm ONCE ONCE PO Last administered on 15:52; Start 06/18/16 at 16:00; Stop 06/18/16 at 16:01; Status DC Epinephrine HCl (EPINEPHrine (1:10,000) INJ) 1 mg STK-MED ONCE .ROUTE ; Start at 01:47; Stop 06/20/16 at 01:48; Status DC Dextrose (D50w (Vial) Inj) 25 ml UNSCH PRN IV PUSH HYPOGLYCEMIA - SEE COMMENTS ; Start 06/20/16 at 15:30 Glucagon (Glucagon Inj) 1 mg UNSCH PRN OTHER HYPOGLYCEMIA-SEE COMMENTS; Start 06/20/16 at 15:30 Insulin Aspart (NovoLOG SUPPLEMENTAL SCALE) 1 Q6H SQ Last administered on 06:32; Start 06/20/16 at 18:00 Polyethylene Glycol (Miralax) 17 gm DAILY PO Last administered on 06/22/16 10: 02; Start 06/20/16 at 18:30; Stop 06/22/16 at 15:15; Status DC Lactulose 30 ml 30 ml BID PO Last administered on 06/22/16 10:02; Start at 09:00; Stop 06/22/16 at 13:36; Status DC Sodium Chloride (NS 1000 ml Inj) 1,000 ml @ 100 mls/hr Q10H IV Last administered on 06/22/16 13:25; Start 06/21/16 at 18:00; Stop 06/22/16 at 15:08; Status DC Povidone Iodine (Betadine 10% Top Soln) 1 applic BID TOPICAL Last administered on 07/16/16 09:00; Start 06/23/16 at 13:00 Metoclopramide HCl (Reglan Inj) 5 mg Q8HR PRN IV PUSH n/v/residuals; Start 06/23 at 15:00 Polyethylene Glycol (Miralax) 17 gm DAILY PRN PO no BM x 2 days; Start 06/23/16 at 15:00 Modafinil (Provigil) 400 mg DAILY PO Last administered on 07/16/16 09:45; Start 06/25/16 at 09:00 Modafinil 200 mg 200 mg ONCE ONCE PO Last administered on 06/24/16 14:47; Start 06/24/16 at 14:00; Stop 06/24/16 at 14:02; Status DC Ceftriaxone Sodium/Sodium Chloride (Rocephin Inj/NS Inj) 100 ml @ 200 mls/hr Q24H IV Last administered on 06/29/16 10:48; Start 06/28/16 at 11:00; Stop 06/30 at 11:27; Status DC Hyoscyamine Sulfate 0.125 mg 0.125 mg Q4H PRN PO INCREASED SECRETIONS Last administered on 07/15/16 04:52; Start 06/28/16 at 11:45 Piperacillin Sod/ Tazobactam Sod 100 ml @ 200 mls/hr Q6H IV Last administered on 06/30/16 13:30; Start 06/28/16 at 15:00; Stop 06/30/16 at 17:27; Status DC Ceftriaxone Sodium 2000 mg/ Sodium Chloride 100 ml @ 200 mls/hr Q24H IV Last administered on 07/10/16 00:12; Start 06/30/16 at 20:00; Stop 07/10/16 at 18:20 ; Status DC Pharmacy Profile Note 0 ml @ 0 mls/hr UNSCH IV ; Start 06/30/16 at 17:30; Stop 07/10/16 at 18:21; Status DC Vancomycin HCl 1250 mg/Sodium Chloride 262.5 ml @ 250 mls/hr ONCE ONCE IV Last administered on 07/01/16 10:50; Start 07/01/16 at 10:45; Stop 07/01/16 at 11:47; Status DC Vancomycin HCl/ Sodium Chloride (Vancomycin Inj/ NS 500 ml Inj) 515 ml @ 257.5 mls/ hr Q18H IV Last administered on 07/03/16 17:40; Start 07/02/16 at 05:00; Stop 07/04/16 at 08:50; Status DC Miscellaneous Information SPECIFIC LAB TO BE DRAWN:VANCO TROUGH DATE TO BE DR... ONCE ONCE XX Last administered on 07/03/16 16:45; Start 07/03/16 at 16: 45; Stop 07/03/16 at 16:46; Status DC Fluconazole/ Sodium Chloride 50 ml @ 50 mls/hr Q24H IV Last administered on 15:08; Start 07/01/16 at 15:00; Stop 07/10/16 at 18:21; Status DC Vancomycin HCl/ Sodium Chloride (Vancomycin Inj/ NS 500 ml Inj) 515 ml @ 257.5 mls/ hr Q24H IV Last administered on 07/09/16 21:00; Start 07/04/16 at 21:00; Stop 07/10/16 at 18:21; Status DC Miscellaneous Information SPECIFIC LAB TO BE DRAWN:VANCOMYCIN TROUGH DATE TO... ONCE ONCE XX Last administered on 07/07/16t 20:45; Start 07/07/16 at 20:45; Stop 07/07/16 at 20:46; Status DC Date of Insertion: Jul 05, 2016 A/P Problem List: (1) UTI (urinary tract infection) ICD Code: N39.0 Status: Acute (2) Alzheimer's dementia ICD Code: F02.80 Status: Chronic (3) Malnourished ICD Code: E46 Status: Acute (4) Acute respiratory failure with hypoxia and hypercarbia ICD Code: J96.01 Status: Acute (5) Hypertension ICD Code: I10 Status: Chronic (6) GERD (gastroesophageal reflux disease) ICD Code: K21.9 Status: Chronic (7) Diarrhea ICD Code: R19.7 Status: Acute (8) Fever ICD Code: R50.9 Status: Acute Assessment and Plan 80 years old male Alzheimer's dementia: Patient also with delirium, depression, anxiety. Continue Provigil. Acute on chronic respiratory failure S/P tracheostomy - t collar 28%. Pulmonary ff. Continue bronchodilators as needed. S/P tx Klebsiella/MRSA Pneumonia 07/10 S/P Tx St. epidermidis- On T piece 28%. Levsin for secretions, Sputum culture growing Klebsiella pneumoniae and MRSA. Repeat sputum culture 07/12/16 +MRSA S/P Ceftriaxone and Vancomycin course 07/10 however had MAXIMUM TEMPERATURE of 100.0 at midnight S/P Tx for Candiduria Completed IV fluconazole 07/10 Hypertension: controlled. Anorexia, failure to thrive, moderate protein calorie malnutrition: Continue tube feeds with Glucerna.- tolerating well- no residuals tube feeding rate @ 50 cc/hr- GERD: Continue Pepcid. Reported Diarrhea 07/05: monitor. on Lactinex.- resolved Hyperglycemia of critical illness: Monitor Accu-Cheks and cover with sliding scale insulin. DVT prophylaxis: Heparin. PT/OT consult CM ff along with us- DC planning-SNF- hopefully [place] when off IV antibiotics Discharge Planning 80 years old male Alzheimer's dementia: Patient also with delirium, depression, anxiety. Continue Provigil. Acute on chronic respiratory failure S/P tracheostomy - t collar 28%. Pulmonary ff. Continue bronchodilators as needed. S/P tx Klebsiella/MRSA Pneumonia 07/10 S/P Tx St. epidermidis- On T piece 28%. Levsin for secretions, Sputum culture growing Klebsiella pneumoniae and MRSA. Repeat sputum culture 07/12/16 +MRSA S/P Ceftriaxone and Vancomycin course 07/10 however had MAXIMUM TEMPERATURE of 100.0 at midnight but he has been afebrile since then. S/P Tx for Candiduria Completed IV fluconazole 07/10 Hypertension: controlled. Anorexia, failure to thrive, moderate protein calorie malnutrition: Continue tube feeds with Glucerna.- tolerating well- no residuals tube feeding rate @ 50 cc/hr- GERD: Continue Pepcid. Reported Diarrhea 07/05: monitor. on Lactinex.- resolved Hyperglycemia of critical illness: Monitor Accu-Cheks and cover with sliding scale insulin. DVT prophylaxis: Heparin. PT/OT consult CM ff along with us- DC planning-SNF Priya Goff MD Jul 16, 2016 13:01
[2016-07-17] VITALS (9 sets, daily range): BP systolic 104–132; BP diastolic 56–78; PULSE 84–100; RESP 20–27; TEMP 97–99.5; O2SAT 96–99
[2016-07-17] MEDS: LOW DOSE INSULIN NOVOLOG SUPPLEMENTAL SCALE SQ SCH ×4 (00:04→18:29)
[2016-07-17] MEDS: CHLORHEXIDINE GLUCONATE 2 % 1 PACK (2 CLOTHS) TOP SCH (03:56)
[2016-07-17] MEDS: FREE WATER G-TUBE SCH ×3 (06:00→18:00)
[2016-07-17] MEDS: HEPARIN SODIUM - SQ 10,000 UNITS/ML VIAL SQ SCH ×3 (06:19→22:00)
[2016-07-17] MEDS: POVIDONE IODINE 10% SOLN 480 ML BTL TOPICAL SCH ×2 (09:00→21:00)
[2016-07-17] MEDS: MODAFINIL 200 MG TAB PO SCH (09:56)
[2016-07-17] MEDS: SODIUM CHLORIDE 0.9% FLUSH 5 ML FLUSH IV FLUSH SCH ×2 (09:57→21:00)
[2016-07-17] MEDS: FAMOTIDINE 20 MG TAB NG SCH ×2 (09:57→21:00)
--- NOTE | 2016-07-17 16:42 | HHI.PR ---
Subjective Remarks Patient continues to be nonresponsive. d/w nurse no acute events. Objective Vitals Vital Signs Date Time Temp Pulse Resp B/P Pulse Ox O2 Delivery O2 Flow Rate FiO2 07/17/16 16:00 99.5 98 24 112/63 98 07/17/16 12:00 97.5 91 24 113/62 96 07/17/16 10:00 97 T-Piece 5.00 28 07/17/16 08:00 98.7 90 27 127/64 97 07/17/16 07:30 99 T-piece 28 07/17/16 04:16 98.3 92 20 108/74 96 07/17/16 01:59 99 T-piece 6.00 07/17/16 01:00 T-Piece 07/17/16 00:36 98.3 100 20 104/78 96 07/16/16 20:00 98.5 108 20 102/81 97 I/O 07/16/16 07/16/16 07/16/16 07/17/16 07/17/16 07/17/16 06:59 14:59 22:59 06:59 14:59 22:59 Output Total 300 ml 500 ml 250 ml 400 ml 175 ml Balance -300 ml -500 ml -250 ml -400 ml -175 ml Output Urine Total 300 ml 500 ml 250 ml 400 ml 175 ml # Bowel Movements 1 1 1 Result Diagram: 07/13/16 0902 Objective Remarks Gen NAD HEENT trach in place. CV RRR. r/m/g Ext + contractures. Neuro does not follow commands. Medications and IVs Current Medications Vancomycin HCl 1000 mg/Sodium Chloride 250 ml @ 250 mls/hr ONCE STAT IV Last administered on 06/04/16 03:23; Start 06/04/16 at 02:19; Stop 06/04/16 at 03:18 ; Status DC Piperacillin Sod/ Tazobactam Sod 100 ml @ 200 mls/hr ONCE STAT IV Last administered on 06/04/16 02:54; Start 06/04/16 at 02:19; Stop 06/04/16 at 02:48 ; Status DC Sodium Chloride (NS 500 ml Inj) 500 ml @ 500 mls/hr BOLUS ONCE IV Last administered on 06/04/16 02:35; Start 06/04/16 at 02:30; Stop 06/04/16 at 03:29 ; Status DC Etomidate (Amidate Inj) 20 mg ONCE ONCE IVP Last administered on 06/04/16 02: 45; Start 06/04/16 at 02:30; Stop 06/04/16 at 02:31; Status DC Vecuronium [place] (Norcuron 10 Mg Inj) 10 mg ONCE ONCE IV Last administered on 06/04/16 02:45; Start 06/04/16 at 02:30; Stop 06/04/16 at 02:31; Status DC IV Flush (NS Flush) 2 ml UNSCH PRN IVF FLUSH AFTER USING IV ACCESS; Start 06/04 at 02:30; Stop 06/04/16 at 04:21; Status DC Acetaminophen 650 mg 650 mg ONCE ONCE RECTAL Last administered on 06/04/16 02 :54; Start 06/04/16 at 02:30; Stop 06/04/16 at 02:31; Status DC Sodium Chloride (NS 500 ml Inj) 500 ml @ 500 mls/hr BOLUS ONCE IV Last administered on 06/04/16 04:11; Start 06/04/16 at 03:45; Stop 06/04/16 at 04:44 ; Status DC Insulin Human Regular (NovoLIN R INJ) 4 units ONCE ONCE IVP Last administered on 06/04/16 04:10; Start 06/04/16 at 04:00; Stop 06/04/16 at 04:01; Status DC IV Flush (NS Flush) 2 ml UNSCH PRN IV FLUSH FLUSH AFTER USING IV ACCESS Last administered on 07/02/16 05:00; Start 06/04/16 at 04:15 IV Flush (NS Flush) 2 ml BID IV FLUSH Last administered on 07/17/16 09:57; Start 06/04/16 at 09:00 Acetaminophen (Tylenol) 650 mg Q6H PRN PO PAIN 1-10 AND/OR FEVER >101F Last administered on 07/15/16 04:52; Start 06/04/16 at 04:15 Morphine Sulfate (Morphine Inj) 2 mg Q2H PRN IV PAIN SCALE 6 TO 10 Last administered on 07/13/16 14:02; Start 06/04/16 at 04:15 Pantoprazole Sodium (Protonix Inj) 40 mg DAILY IV Last administered on 08:50; Start 06/04/16 at 09:00; Stop 06/13/16 at 14:12; Status DC Ondansetron HCl (Zofran Inj) 4 mg Q6H PRN IV NAUSEA OR VOMITING Last administered on 06/19/16 04:27; Start 06/04/16 at 04:15 Albuterol/ Ipratropium (Duoneb Neb) 1 ampule Q4HR NEB PRN INH WHEEZING Last administered on 07/01/16 06:06; Start 06/04/16 at 04:15 Heparin Sodium (Porcine) (Heparin Inj) 5,000 units Q12HR SQ Last administered on 06/05/16 08:10; Start 06/04/16 at 09:00; Stop 06/10/16 at 12:42; Status DC Miscellaneous Information 1 [id number] XX Last administered on 06/04/16 04:15; Start 06/04/16 at 04:15 Chlorhexidine Gluconate (Chlorhexidine 2% Cloth) 3 pack Taper DAILY@04 TOP Last administered on 06/25/16 04:00; Start 06/05/16 at 04:00; Stop 06/01/17 at 03:59 Chlorhexidine Gluconate 3 pack 3 pack UNSCH PRN TOP HYGIENIC CARE; Start at 04:15 Propofol (Diprivan 1000 Mg/100ml Inj) 100 ml @ 0 mls/hr TITRATE IV Last administered on 06/11/16 20:38; Start 06/04/16 at 04:15; Stop 06/22/16 at 15:13 ; Status DC Dextrose (D50w (Vial) Inj) 25 ml UNSCH PRN IV PUSH HYPOGLYCEMIA-SEE COMMENTS; Start 06/04/16 at 04:15; Stop 06/04/16 at 10:27; Status DC Glucagon (Glucagon Inj) 1 mg UNSCH PRN OTHER HYPOGLYCEMIA-SEE COMMENTS; Start 06/04/16 at 04:15; Stop 06/04/16 at 10:27; Status DC Insulin Aspart 1 1 Q4HR SQ Last administered on 06/04/16 07:56; Start at 04:00; Stop 06/04/16 at 09:54; Status DC Propofol (Diprivan 1000 Mg/100ml Inj) 100 ml @ 0 mls/hr TITRATE IV ; Start 06/04 at 04:15; Stop 06/04/16 at 04:21; Status DC Dextrose (D50w (Vial) Inj) 25 ml UNSCH PRN IV PUSH HYPOGLYCEMIA - SEE COMMENTS ; Start 06/04/16 at 04:30; Status Cancel Glucagon 1 mg 1 mg UNSCH PRN OTHER HYPOGLYCEMIA-SEE COMMENTS; Start 06/04/16 at 04:30; Status Cancel Lactated Ringer's 1,000 ml @ 175 mls/hr Q5H43M IV Last administered on 04:45; Start 06/04/16 at 04:45; Stop 06/04/16 at 14:47; Status DC Sodium Chloride 1,000 ml @ 1,000 mls/hr Q1H IV Last administered on 06/04/16 08:45; Start 06/04/16 at 07:45; Stop 06/04/16 at 09:44; Status DC Insulin Human Regular/Sodium Chloride (NovoLIN R (IV INFUSION)/NS Inj) 100 ml @ 0 mls/hr TITRATE IV Last administered on 06/04/16 11:31; Start 06/04/16 at 11: 00; Stop 06/05/16 at 03:52; Status DC Dextrose (D50w (Vial) Inj) 25 ml UNSCH PRN IV PUSH SEE LABEL COMMENTS; Start at 10:00; Stop 06/05/16 at 03:52; Status DC Miscellaneous Information 1 1 ONCE ONCE XX Last administered on 06/04/16 10: 00; Start 06/04/16 at 10:00; Stop 06/04/16 at 10:32; Status DC Pharmacy Profile Note 0 ml @ 0 mls/hr UNSCH OTHER ; Start 06/04/16 at 10:00; Stop 06/06/16 at 13:28; Status DC Piperacillin Sod/ Tazobactam Sod (Zosyn 2.25 Gm Premix) 50 ml @ 100 mls/hr Q6H IV Last administered on 06/05/16 12:17; Start 06/04/16 at 12:00; Stop at 14:02; Status DC Water 300 ml 300 ml Q6HR G-TUBE Last administered on 06/04/16 11:32; Start at 12:00; Stop 06/04/16 at 14:45; Status DC Sodium Chloride 1,000 ml @ 999 mls/hr BOLUS ONCE IV Last administered on 06/04 13:30; Start 06/04/16 at 13:30; Stop 06/04/16 at 14:30; Status DC Sodium Chloride (NS 1000 ml Inj) 1,000 ml @ 999 mls/hr BOLUS ONCE IV Last administered on 06/04/16 13:30; Start 06/04/16 at 13:30; Stop 06/04/16 at 14:30 ; Status DC Water 300 ml 300 ml Q4HR G-TUBE Last administered on 06/15/16 12:00; Start at 16:00; Stop 06/15/16 at 13:08; Status DC Potassium Chloride 100 ml @ 50 mls/hr Q2H PRN IV For Potassium 2.8 - 3.2 mEq/ L Last administered on 06/13/16 08:49; Start 06/04/16 at 14:45; Stop 06/22/16 at 15:13; Status DC Potassium Chloride (KCl 20 Meq Premix Inj) 100 ml @ 50 mls/hr Q2H PRN IV For Potassium 2.8 - 3.2 mEq/L; Start 06/04/16 at 14:45; Stop 06/22/16 at 15:13; Status DC Potassium Chloride 40 meq 40 meq UNSCH PRN PO/TUBE For Potassium 3.3 - 3.5 mEq/ L; Start 06/04/16 at 14:45; Stop 06/22/16 at 15:14; Status DC Potassium Chloride 100 ml @ 25 mls/hr UNSCH PRN IV For Potassium 3.3 - 3.5 mEq /L Last administered on 06/09/16 08:07; Start 06/04/16 at 14:45; Stop 06/22/16 at 15:14; Status DC Potassium Chloride 100 ml @ 50 mls/hr Q2H PRN IV For Potassium 3.3 - 3.5 mEq/L ; Start 06/04/16 at 14:45; Stop 06/22/16 at 15:14; Status DC Magnesium Sulfate/ Sodium Chloride (Magnesium Sulfate Inj/NS Inj) 100 ml @ 50 mls/hr UNSCH PRN IV For Magnesium 0.9 - 1.1 mg/dL; Start 06/04/16 at 14:45; Stop 06/22/16 at 15:14; Status DC Magnesium Oxide 800 mg 800 mg UNSCH PRN PO For Magnesium 1.2 - 1.6 mg/dL; Start 06/04/16 at 14:45; Stop 06/22/16 at 15:14; Status DC Magnesium Sulfate/ Sodium Chloride (Magnesium Sulfate Inj/NS Inj) 100 ml @ 50 mls/hr UNSCH PRN IV For Magnesium 1.2 - 1.6 mg/dL; Start 06/04/16 at 14:45; Stop 06/22/16 at 15:14; Status DC Potassium Phosphate 2000 mg 2,000 mg Q4H PRN PO For Phosphorus < 2.5 mg/dL Last administered on 06/16/16t 12:10; Start 06/04/16 at 14:45; Stop 06/22/16 at 15:15; Status DC Sodium Phosphate/ Sodium Chloride (Sodium Phosphate Inj/NS 250 ml Inj) 250 ml @ 42 mls/hr UNSCH PRN IV For Phosphorus < 2.5 mg/dL Last administered on 17:53; Start 06/04/16 at 14:45; Stop 06/22/16 at 15:15; Status DC Potassium Chloride (KCl 40 Meq/30 ml Liq) 40 meq UNSCH PRN PO/TUBE SEE LABEL COMMENTS; Start 06/04/16 at 14:45; Stop 06/22/16 at 15:15; Status DC Potassium Phosphate 2000 mg 2,000 mg UNSCH PRN PO/TUBE SEE LABEL COMMENTS; Start 06/04/16 at 14:45; Stop 06/22/16 at 15:15; Status DC Potassium Phosphate 30 mmol/ Sodium Chloride 260 ml @ 42 mls/hr UNSCH PRN IV SEE LABEL COMMENTS Last administered on 06/17/16 18:17; Start 06/04/16 at 14:45 ; Stop 06/22/16 at 15:15; Status DC Dextrose 1,000 ml @ 150 mls/hr Q6H40M IV Last administered on 06/04/16 21:40 ; Start 06/04/16 at 14:45; Stop 06/05/16 at 01:33; Status DC Sodium Chloride 1,000 ml @ 999 mls/hr BOLUS ONCE IV Last administered on 06/04 17:45; Start 06/04/16 at 17:45; Stop 06/04/16 at 18:45; Status DC Lactated Ringer's (Lr 1000 ml Inj) 1,000 ml @ 75 mls/hr [id number] IV Last administered on 06/05/16 18:23; Start 06/05/16 at 01:45; Stop 06/06/16 at 07:34 ; Status DC Miscellaneous Information 1 1 ONCE ONCE XX ; Start 06/05/16 at 04:00; Stop at 04:00; Status DC Insulin Human Regular/Sodium Chloride (NovoLIN R (IV INFUSION)/NS Inj) 100 ml @ 0 mls/hr TITRATE IV Last administered on 06/05/16 06:30; Start 06/05/16 at 04: 00; Stop 06/05/16 at 11:56; Status DC Dextrose 25 ml 25 ml UNSCH PRN IV PUSH HYPOGLYCEMIA- SEE COMMENTS; Start at 04:00; Stop 06/05/16 at 11:58; Status DC Calcium Gluconate/ Sodium Chloride (Calcium Gluconate Inj/NS Inj) 110 ml @ 110 mls/hr ONCE ONCE IV Last administered on 06/05/16 11:08; Start 06/05/16 at 10 :00; Stop 06/05/16 at 10:59; Status DC Albuterol/ Ipratropium 1 ampule 1 ampule Q6HR NEB NEB Last administered on 08:39; Start 06/05/16 at 10:00; Stop 06/13/16 at 09:58; Status DC Vancomycin HCl/ Sodium Chloride (Vancomycin Inj/ NS 250 ml Inj) 250 ml @ 250 mls/hr Q24H IV Last administered on 06/05/16 12:18; Start 06/05/16 at 10:00; Stop 06/06/16 at 10:04; Status DC Miscellaneous Information SPECIFIC LAB TO BE ROYA... ONCE ONCE XX ; Start at 09:45; Stop 06/08/16 at 09:46; Status Cancel Dextrose (D50w (Vial) Inj) 25 ml UNSCH PRN IV PUSH HYPOGLYCEMIA-SEE COMMENTS; Start 06/05/16 at 12:00; Stop 06/15/16 at 13:39; Status DC Glucagon (Glucagon Inj) 1 mg UNSCH PRN OTHER HYPOGLYCEMIA-SEE COMMENTS; Start 06/05/16 at 12:00; Stop 06/20/16 at 17:08; Status DC Insulin Human Regular 1 1 Q4H SQ Last administered on 06/11/16 16:00; Start at 12:00; Stop 06/11/16 at 17:21; Status DC Piperacillin Sod/ Tazobactam Sod 50 ml @ 100 mls/hr Q8H IV Last administered on 06/13/16 03:53; Start 06/05/16 at 20:00; Stop 06/13/16 at 12:14; Status DC Sodium Chloride 1,000 ml @ 84 mls/hr [id number] IV Last administered on 07:35; Start 06/06/16 at 07:45; Stop 06/07/16 at 11:15; Status DC Vancomycin HCl 1250 mg/Sodium Chloride 250 ml @ 250 mls/hr Q24H IV ; Start at 10:00; Stop 06/06/16 at 10:09; Status DC Vancomycin HCl 1250 mg/Sodium Chloride 262.5 ml @ 262.5 mls/ hr Q24H IV Last administered on 06/06/16 10:26; Start 06/06/16 at 10:00; Stop 06/06/16 at 13:28 ; Status DC Azithromycin 500 mg/Sodium Chloride 250 ml @ 250 mls/hr Q24H IV Last administered on 06/12/16 21:24; Start 06/06/16 at 21:00; Stop 06/13/16 at 12:14 ; Status DC Sodium Chloride (1/2 NS 1000 ml Inj) 1,000 ml @ 84 mls/hr [id number] IV Last administered on 06/12/16 21:23; Start 06/07/16 at 11:15; Stop 06/13/16 at 14:12 ; Status DC Docusate Sodium 100 mg 100 mg Q12HR PO Last administered on 06/23/16 08:40; Start 06/09/16 at 21:00; Stop 06/23/16 at 14:57; Status DC Potassium Phosphate/Sodium Chloride (Potassium Phosphate Inj/NS 250 ml Inj) 260 ml @ 43.333 mls/ hr ONCE ONCE IV Last administered on 06/10/16 13:02; Start 06/10/16 at 15:00; Stop 06/10/16 at 20:59; Status DC Heparin Sodium (Porcine) (Heparin Inj) 5,000 units Q12HR SQ Last administered on 06/18/16 08:17; Start 06/10/16 at 15:15; Stop 06/18/16 at 08:40; Status DC Dextrose (D50w (Vial) Inj) 25 ml UNSCH PRN IV PUSH HYPOGLYCEMIA-SEE COMMENTS; Start 06/11/16 at 17:30; Stop 06/20/16 at 17:08; Status DC Insulin Human Regular (NovoLIN R SUPPLEMENTAL SCALE) 1 Q4HR SQ Last administered on 06/20/16 08:25; Start 06/11/16 at 20:00; Stop 06/20/16 at 17:08 ; Status DC Modafinil (Provigil) 200 mg DAILY PO Last administered on 06/24/16 07:51; Start 06/12/16 at 07:00; Stop 06/24/16 at 13:50; Status DC Rocuronium [place] (Zemuron Inj) 50 mg STK-MED ONCE .ROUTE ; Start 06/13/16 at 11:03; Stop 06/13/16 at 11:04; Status DC Rocuronium [place] 50 mg 50 mg STK-MED ONCE .ROUTE ; Start 06/13/16 at 11:05; Stop 06/13/16 at 11:06; Status DC Cefepime HCl/ Sodium Chloride (Maxipime Inj/NS Inj) 100 ml @ 200 mls/hr Q8H IV Last administered on 06/20/16 03:50; Start 06/13/16 at 13:00; Stop 06/20/16 at 13:05; Status DC Fentanyl Citrate (fentaNYL INJ) 100 mcg STK-MED ONCE .ROUTE Last administered on 06/13/16 12:49; Start 06/13/16 at 12:25; Stop 06/13/16 at 12:26; Status DC Famotidine 20 mg 20 mg BID NG Last administered on 07/17/16 09:57; Start 06/13 at 21:00 Cefepime HCl/ Sodium Chloride (Maxipime Inj/NS Inj) 100 ml @ 200 mls/hr Q8H IV ; Start 06/13/16 at 16:00; Status Cancel Furosemide (Lasix Inj) 40 mg ONCE ONCE IV PUSH Last administered on 06/14/16 09:26; Start 06/14/16 at 08:30; Stop 06/14/16 at 08:31; Status DC Water (Free Water) 250 ml Q6HR G-TUBE Last administered on 07/17/16 12:00; Start 06/15/16 at 18:00 Albuterol/ Ipratropium (Duoneb Neb) 1 ampule Q6HR NEB NEB Last administered on 06/15/16 20:10; Start 06/15/16 at 16:00; Stop 06/15/16 at 22:00; Status DC Albuterol/ Ipratropium 1 ampule 1 ampule Q6HR NEB NEB Last administered on 15:30; Start 06/15/16 at 16:00; Stop 06/19/16 at 16:00; Status DC Potassium Phosphate/Sodium Chloride (Potassium Phosphate Inj/NS 250 ml Inj) 260 ml @ 43.333 mls/ hr ONCE ONCE IV ; Start 06/16/16 at 09:00; Stop 06/16/16 at 14:59; Status DC Heparin Sodium (Porcine) (Heparin Inj) 5,000 units Q8HR SQ Last administered on 07/17/16 13:25; Start 06/18/16 at 14:00 Metoclopramide HCl (Reglan Inj) 5 mg Q8HR IV PUSH Last administered on 13:08; Start 06/18/16 at 22:00; Stop 06/23/16 at 14:57; Status DC Magnesium Citrate (Citroma Liq) 300 ml ONCE ONCE PO ; Start 06/18/16 at 15:30; Stop 06/18/16 at 15:30; Status DC Polyethylene Glycol (Miralax) 17 gm ONCE ONCE PO Last administered on 15:52; Start 06/18/16 at 16:00; Stop 06/18/16 at 16:01; Status DC Epinephrine HCl (EPINEPHrine (1:10,000) INJ) 1 mg STK-MED ONCE .ROUTE ; Start at 01:47; Stop 06/20/16 at 01:48; Status DC Dextrose (D50w (Vial) Inj) 25 ml UNSCH PRN IV PUSH HYPOGLYCEMIA - SEE COMMENTS ; Start 06/20/16 at 15:30 Glucagon (Glucagon Inj) 1 mg UNSCH PRN OTHER HYPOGLYCEMIA-SEE COMMENTS; Start 06/20/16 at 15:30 Insulin Aspart (NovoLOG SUPPLEMENTAL SCALE) 1 Q6H SQ Last administered on 12:17; Start 06/20/16 at 18:00 Polyethylene Glycol (Miralax) 17 gm DAILY PO Last administered on 06/22/16 10: 02; Start 06/20/16 at 18:30; Stop 06/22/16 at 15:15; Status DC Lactulose 30 ml 30 ml BID PO Last administered on 06/22/16 10:02; Start at 09:00; Stop 06/22/16 at 13:36; Status DC Sodium Chloride (NS 1000 ml Inj) 1,000 ml @ 100 mls/hr Q10H IV Last administered on 06/22/16 13:25; Start 06/21/16 at 18:00; Stop 06/22/16 at 15:08; Status DC Povidone Iodine (Betadine 10% Top Soln) 1 applic BID TOPICAL Last administered on 07/17/16 09:00; Start 06/23/16 at 13:00 Metoclopramide HCl (Reglan Inj) 5 mg Q8HR PRN IV PUSH n/v/residuals; Start 06/23 at 15:00 Polyethylene Glycol (Miralax) 17 gm DAILY PRN PO no BM x 2 days; Start 06/23/16 at 15:00 Modafinil (Provigil) 400 mg DAILY PO Last administered on 07/17/16 09:56; Start 06/25/16 at 09:00 Modafinil 200 mg 200 mg ONCE ONCE PO Last administered on 06/24/16 14:47; Start 06/24/16 at 14:00; Stop 06/24/16 at 14:02; Status DC Ceftriaxone Sodium/Sodium Chloride (Rocephin Inj/NS Inj) 100 ml @ 200 mls/hr Q24H IV Last administered on 06/29/16 10:48; Start 06/28/16 at 11:00; Stop 06/30 at 11:27; Status DC Hyoscyamine Sulfate 0.125 mg 0.125 mg Q4H PRN PO INCREASED SECRETIONS Last administered on 07/15/16 04:52; Start 06/28/16 at 11:45 Piperacillin Sod/ Tazobactam Sod 100 ml @ 200 mls/hr Q6H IV Last administered on 06/30/16 13:30; Start 06/28/16 at 15:00; Stop 06/30/16 at 17:27; Status DC Ceftriaxone Sodium 2000 mg/ Sodium Chloride 100 ml @ 200 mls/hr Q24H IV Last administered on 07/10/16 00:12; Start 06/30/16 at 20:00; Stop 07/10/16 at 18:20 ; Status DC Pharmacy Profile Note 0 ml @ 0 mls/hr UNSCH IV ; Start 06/30/16 at 17:30; Stop 07/10/16 at 18:21; Status DC Vancomycin HCl 1250 mg/Sodium Chloride 262.5 ml @ 250 mls/hr ONCE ONCE IV Last administered on 07/01/16 10:50; Start 07/01/16 at 10:45; Stop 07/01/16 at 11:47; Status DC Vancomycin HCl/ Sodium Chloride (Vancomycin Inj/ NS 500 ml Inj) 515 ml @ 257.5 mls/ hr Q18H IV Last administered on 07/03/16 17:40; Start 07/02/16 at 05:00; Stop 07/04/16 at 08:50; Status DC Miscellaneous Information SPECIFIC LAB TO BE DRAWN:VANCO TROUGH DATE TO BE DR... ONCE ONCE XX Last administered on 07/03/16 16:45; Start 07/03/16 at 16: 45; Stop 07/03/16 at 16:46; Status DC Fluconazole/ Sodium Chloride 50 ml @ 50 mls/hr Q24H IV Last administered on 15:08; Start 07/01/16 at 15:00; Stop 07/10/16 at 18:21; Status DC Vancomycin HCl/ Sodium Chloride (Vancomycin Inj/ NS 500 ml Inj) 515 ml @ 257.5 mls/ hr Q24H IV Last administered on 07/09/16 21:00; Start 07/04/16 at 21:00; Stop 07/10/16 at 18:21; Status DC Miscellaneous Information SPECIFIC LAB TO BE DRAWN:VANCOMYCIN TROUGH DATE TO... ONCE ONCE XX Last administered on 07/07/16t 20:45; Start 07/07/16 at 20:45; Stop 07/07/16 at 20:46; Status DC Date of Insertion: Jul 05, 2016 A/P Problem List: (1) UTI (urinary tract infection) ICD Code: N39.0 Status: Acute (2) Alzheimer's dementia ICD Code: F02.80 Status: Chronic (3) Malnourished ICD Code: E46 Status: Acute (4) Acute respiratory failure with hypoxia and hypercarbia ICD Code: J96.01 Status: Acute (5) Hypertension ICD Code: I10 Status: Chronic (6) GERD (gastroesophageal reflux disease) ICD Code: K21.9 Status: Chronic (7) Diarrhea ICD Code: R19.7 Status: Acute (8) Fever ICD Code: R50.9 Status: Acute Assessment and Plan 80 years old male Alzheimer's dementia -Patient also with delirium, depression, anxiety. Continue Provigil. Acute on chronic respiratory failure S/P tracheostomy - t collar 28%. Pulmonary ff. Continue bronchodilators as needed. -S/P tx Klebsiella/MRSA Pneumonia 07/10 -S/P Tx St. epidermidis- On T piece 28%. Levsin for secretions, Sputum culture growing Klebsiella pneumoniae and MRSA. Repeat sputum culture 07/12/16 +MRSA S/P Ceftriaxone and Vancomycin course 07/10 however had MAXIMUM TEMPERATURE of 100.0 at midnight -S/P Tx for Candiduria Completed IV fluconazole 07/10 -last nasal trach sputum + MRSA so will repeat. Hypertension: controlled. Anorexia, failure to thrive, moderate protein calorie malnutrition: Continue tube feeds with Glucerna.- tolerating well- no residuals tube feeding rate @ 50 cc/hr- GERD: Continue Pepcid. Reported Diarrhea 07/05: monitor. on Lactinex.- resolved Hyperglycemia of critical illness: Monitor Accu-Cheks and cover with sliding scale insulin. DVT prophylaxis: Heparin. PT/OT consult CM ff along with us- DC planning-SNF- hopefully [place] when off IV antibiotics Priya Goff MD Jul 17, 2016 16:42
--- NOTE | 2016-07-17 18:46 | HHI.PR ---
Subjective Remarks 80 YO male with Dementia, RF,Trach Pt aphasic Tolerates TF On Trach collar No fever No new complaint Objective Vital Signs Vital Signs Date Time Temp Pulse Resp B/P Pulse Ox O2 Delivery O2 Flow Rate FiO2 07/17/16 16:00 99.5 98 24 112/63 98 07/17/16 12:00 97.5 91 24 113/62 96 07/17/16 10:00 97 T-Piece 5.00 07/17/16 08:00 98.7 90 27 127/64 97 07/17/16 07:30 99 T-piece 28 07/17/16 04:16 98.3 92 20 108/74 96 07/17/16 01:59 99 T-piece 6.00 07/17/16 01:00 T-Piece 07/17/16 00:36 98.3 100 20 104/78 96 07/16/16 20:00 98.5 108 20 102/81 97 I/O 07/16/16 07/16/16 07/16/16 07/17/16 07/17/16 07/17/16 07:00 15:00 23:00 07:00 15:00 23:00 Output Total 300 ml 500 ml 250 ml 400 ml 175 ml Balance -300 ml -500 ml -250 ml -400 ml -175 ml Output Urine Total 300 ml 500 ml 250 ml 400 ml 175 ml # Bowel Movements 1 1 1 Result Diagram: 07/13/16 09 Objective Remarks GENERAL: Elderly frail male, mild sob SKIN: Warm and dry. HEAD: Normocephalic. EYES: No scleral icterus. No injection or drainage. NECK: Supple, trachea midline. No JVD or lymphadenopathy. CARDIOVASCULAR: Regular rate and rhythm without murmurs, gallops, or rubs. RESPIRATORY: Breath sounds equal bilaterally. No accessory muscle use. GASTROINTESTINAL: Abdomen soft, non-tender, nondistended. MUSCULOSKELETAL: No cyanosis, or edema. BACK: Nontender without obvious deformity. No CVA tenderness. A/P Assessment and Plan RF,s/p Trach Aphasia Dysphagia Dementia PLAN: Aerosol nebs Tracheal suction Levsin qid Stable on Trach collar Tube feeding 40 cc/hr Stable off Abx Silverio Reyes MD Jul 17, 2016 18:46
[2016-07-18] VITALS (7 sets, daily range): BP systolic 93–136; BP diastolic 58–69; PULSE 80–94; RESP 16–22; TEMP 96.3–98.1; O2SAT 97–100
[2016-07-18] MEDS: CHLORHEXIDINE GLUCONATE 2 % 1 PACK (2 CLOTHS) TOP SCH (04:00)
[2016-07-18] MEDS: FREE WATER G-TUBE SCH ×4 (06:00→18:00)
[2016-07-18] MEDS: HEPARIN SODIUM - SQ 10,000 UNITS/ML VIAL SQ SCH ×3 (06:26→22:13)
[2016-07-18] MEDS: LOW DOSE INSULIN NOVOLOG SUPPLEMENTAL SCALE SQ SCH ×4 (06:29→19:01)
[2016-07-18] MEDS: POVIDONE IODINE 10% SOLN 480 ML BTL TOPICAL SCH ×2 (09:00→21:00)
[2016-07-18] MEDS: FAMOTIDINE 20 MG TAB NG SCH ×2 (09:00→22:13)
[2016-07-18] MEDS: MODAFINIL 200 MG TAB PO SCH (09:00)
[2016-07-18] MEDS: SODIUM CHLORIDE 0.9% FLUSH 5 ML FLUSH IV FLUSH SCH ×2 (09:48→22:14)
--- NOTE | 2016-07-18 14:21 | HHI.PR ---
Subjective Remarks f/u for dementia and respiratory failure. per nurse no new issues. patient continues to be non responsive. Remains afebrile. Objective Vitals Vital Signs Date Time Temp Pulse Resp B/P Pulse Ox O2 Delivery O2 Flow Rate FiO2 07/18/16 12:00 97.6 94 20 108/61 99 07/18/16 08:22 98 T-piece 28 07/18/16 08:00 98.1 91 16 97/62 100 07/18/16 08:00 96 Trach Collar 07/18/16 04:00 98.0 89 20 136/68 98 07/18/16 00:48 97.2 80 22 128/58 97 07/17/16 22:30 96 T-piece 6.00 07/17/16 20:36 97.0 84 24 132/56 97 07/17/16 19:35 97 T-Piece 5.00 07/17/16 16:00 99.5 98 24 112/63 98 I/O 07/17/16 07/17/16 07/17/16 07/18/16 07/18/16 07/18/16 07:00 15:00 23:00 07:00 15:00 23:00 Output Total 400 ml 175 ml 175 ml Balance -400 ml -175 ml -175 ml Output Urine Total 400 ml 175 ml 175 ml # Bowel Movements 1 1 Objective Remarks Gen NAD HEENT trach in place. CV RRR. r/m/g Ext + contractures. Neuro does not follow commands. Medications and IVs Current Medications Vancomycin HCl 1000 mg/Sodium Chloride 250 ml @ 250 mls/hr ONCE STAT IV Last administered on 06/04/16 03:23; Start 06/04/16 at 02:19; Stop 06/04/16 at 03:18 ; Status DC Piperacillin Sod/ Tazobactam Sod 100 ml @ 200 mls/hr ONCE STAT IV Last administered on 06/04/16 02:54; Start 06/04/16 at 02:19; Stop 06/04/16 at 02:48 ; Status DC Sodium Chloride (NS 500 ml Inj) 500 ml @ 500 mls/hr BOLUS ONCE IV Last administered on 06/04/16 02:35; Start 06/04/16 at 02:30; Stop 06/04/16 at 03:29 ; Status DC Etomidate (Amidate Inj) 20 mg ONCE ONCE IVP Last administered on 06/04/16 02: 45; Start 06/04/16 at 02:30; Stop 06/04/16 at 02:31; Status DC Vecuronium Shubuta (Norcuron 10 Mg Inj) 10 mg ONCE ONCE IV Last administered on 06/04/16 02:45; Start 06/04/16 at 02:30; Stop 06/04/16 at 02:31; Status DC IV Flush (NS Flush) 2 ml UNSCH PRN IVF FLUSH AFTER USING IV ACCESS; Start 06/04 at 02:30; Stop 06/04/16 at 04:21; Status DC Acetaminophen 650 mg 650 mg ONCE ONCE RECTAL Last administered on 06/04/16 02 :54; Start 06/04/16 at 02:30; Stop 06/04/16 at 02:31; Status DC Sodium Chloride (NS 500 ml Inj) 500 ml @ 500 mls/hr BOLUS ONCE IV Last administered on 06/04/16 04:11; Start 06/04/16 at 03:45; Stop 06/04/16 at 04:44 ; Status DC Insulin Human Regular (NovoLIN R INJ) 4 units ONCE ONCE IVP Last administered on 06/04/16 04:10; Start 06/04/16 at 04:00; Stop 06/04/16 at 04:01; Status DC IV Flush (NS Flush) 2 ml UNSCH PRN IV FLUSH FLUSH AFTER USING IV ACCESS Last administered on 07/02/16 05:00; Start 06/04/16 at 04:15 IV Flush (NS Flush) 2 ml BID IV FLUSH Last administered on 07/18/16 09:48; Start 06/04/16 at 09:00 Acetaminophen (Tylenol) 650 mg Q6H PRN PO PAIN 1-10 AND/OR FEVER >101F Last administered on 07/15/16 04:52; Start 06/04/16 at 04:15 Morphine Sulfate (Morphine Inj) 2 mg Q2H PRN IV PAIN SCALE 6 TO 10 Last administered on 07/13/16 14:02; Start 06/04/16 at 04:15 Pantoprazole Sodium (Protonix Inj) 40 mg DAILY IV Last administered on 08:50; Start 06/04/16 at 09:00; Stop 06/13/16 at 14:12; Status DC Ondansetron HCl (Zofran Inj) 4 mg Q6H PRN IV NAUSEA OR VOMITING Last administered on 06/19/16 04:27; Start 06/04/16 at 04:15 Albuterol/ Ipratropium (Duoneb Neb) 1 ampule Q4HR NEB PRN INH WHEEZING Last administered on 07/01/16 06:06; Start 06/04/16 at 04:15 Heparin Sodium (Porcine) (Heparin Inj) 5,000 units Q12HR SQ Last administered on 06/05/16 08:10; Start 06/04/16 at 09:00; Stop 06/10/16 at 12:42; Status DC Miscellaneous Information 1 [id number] XX Last administered on 06/04/16 04:15; Start 06/04/16 at 04:15 Chlorhexidine Gluconate (Chlorhexidine 2% Cloth) Taper DAILY@04 TOP Last administered on 06/25/16 04:00; Start 06/05/16 at 04:00; Stop 06/01/17 at 03:59 Chlorhexidine Gluconate 3 pack 3 pack UNSCH PRN TOP HYGIENIC CARE; Start at 04:15 Propofol (Diprivan 1000 Mg/100ml Inj) 100 ml @ 0 mls/hr TITRATE IV Last administered on 06/11/16 20:38; Start 06/04/16 at 04:15; Stop 06/22/16 at 15:13 ; Status DC Dextrose (D50w (Vial) Inj) 25 ml UNSCH PRN IV PUSH HYPOGLYCEMIA-SEE COMMENTS; Start 06/04/16 at 04:15; Stop 06/04/16 at 10:27; Status DC Glucagon (Glucagon Inj) 1 mg UNSCH PRN OTHER HYPOGLYCEMIA-SEE COMMENTS; Start 06/04/16 at 04:15; Stop 06/04/16 at 10:27; Status DC Insulin Aspart 1 1 Q4HR SQ Last administered on 06/04/16 07:56; Start at 04:00; Stop 06/04/16 at 09:54; Status DC Propofol (Diprivan 1000 Mg/100ml Inj) 100 ml @ 0 mls/hr TITRATE IV ; Start 06/04 at 04:15; Stop 06/04/16 at 04:21; Status DC Dextrose (D50w (Vial) Inj) 25 ml UNSCH PRN IV PUSH HYPOGLYCEMIA - SEE COMMENTS ; Start 06/04/16 at 04:30; Status Cancel Glucagon 1 mg 1 mg UNSCH PRN OTHER HYPOGLYCEMIA-SEE COMMENTS; Start 06/04/16 at 04:30; Status Cancel Lactated Ringer's 1,000 ml @ 175 mls/hr Q5H43M IV Last administered on 04:45; Start 06/04/16 at 04:45; Stop 06/04/16 at 14:47; Status DC Sodium Chloride 1,000 ml @ 1,000 mls/hr Q1H IV Last administered on 06/04/16 08:45; Start 06/04/16 at 07:45; Stop 06/04/16 at 09:44; Status DC Insulin Human Regular/Sodium Chloride (NovoLIN R (IV INFUSION)/NS Inj) 100 ml @ 0 mls/hr TITRATE IV Last administered on 06/04/16 11:31; Start 06/04/16 at 11: 00; Stop 06/05/16 at 03:52; Status DC Dextrose (D50w (Vial) Inj) 25 ml UNSCH PRN IV PUSH SEE LABEL COMMENTS; Start at 10:00; Stop 06/05/16 at 03:52; Status DC Miscellaneous Information 1 1 ONCE ONCE XX Last administered on 06/04/16 10: 00; Start 06/04/16 at 10:00; Stop 06/04/16 at 10:32; Status DC Pharmacy Profile Note 0 ml @ 0 mls/hr UNSCH OTHER ; Start 06/04/16 at 10:00; Stop 06/06/16 at 13:28; Status DC Piperacillin Sod/ Tazobactam Sod (Zosyn 2.25 Gm Premix) 50 ml @ 100 mls/hr Q6H IV Last administered on 06/05/16 12:17; Start 06/04/16 at 12:00; Stop at 14:02; Status DC Water 300 ml 300 ml Q6HR G-TUBE Last administered on 06/04/16 11:32; Start at 12:00; Stop 06/04/16 at 14:45; Status DC Sodium Chloride 1,000 ml @ 999 mls/hr BOLUS ONCE IV Last administered on 06/04 13:30; Start 06/04/16 at 13:30; Stop 06/04/16 at 14:30; Status DC Sodium Chloride (NS 1000 ml Inj) 1,000 ml @ 999 mls/hr BOLUS ONCE IV Last administered on 06/04/16 13:30; Start 06/04/16 at 13:30; Stop 06/04/16 at 14:30 ; Status DC Water 300 ml 300 ml Q4HR G-TUBE Last administered on 06/15/16 12:00; Start at 16:00; Stop 06/15/16 at 13:08; Status DC Potassium Chloride 100 ml @ 50 mls/hr Q2H PRN IV For Potassium 2.8 - 3.2 mEq/ L Last administered on 06/13/16 08:49; Start 06/04/16 at 14:45; Stop 06/22/16 at 15:13; Status DC Potassium Chloride (KCl 20 Meq Premix Inj) 100 ml @ 50 mls/hr Q2H PRN IV For Potassium 2.8 - 3.2 mEq/L; Start 06/04/16 at 14:45; Stop 06/22/16 at 15:13; Status DC Potassium Chloride 40 meq 40 meq UNSCH PRN PO/TUBE For Potassium 3.3 - 3.5 mEq/ L; Start 06/04/16 at 14:45; Stop 06/22/16 at 15:14; Status DC Potassium Chloride 100 ml @ 25 mls/hr UNSCH PRN IV For Potassium 3.3 - 3.5 mEq /L Last administered on 06/09/16 08:07; Start 06/04/16 at 14:45; Stop 06/22/16 at 15:14; Status DC Potassium Chloride 100 ml @ 50 mls/hr Q2H PRN IV For Potassium 3.3 - 3.5 mEq/L ; Start 06/04/16 at 14:45; Stop 06/22/16 at 15:14; Status DC Magnesium Sulfate/ Sodium Chloride (Magnesium Sulfate Inj/NS Inj) 100 ml @ 50 mls/hr UNSCH PRN IV For Magnesium 0.9 - 1.1 mg/dL; Start 06/04/16 at 14:45; Stop 06/22/16 at 15:14; Status DC Magnesium Oxide 800 mg 800 mg UNSCH PRN PO For Magnesium 1.2 - 1.6 mg/dL; Start 06/04/16 at 14:45; Stop 06/22/16 at 15:14; Status DC Magnesium Sulfate/ Sodium Chloride (Magnesium Sulfate Inj/NS Inj) 100 ml @ 50 mls/hr UNSCH PRN IV For Magnesium 1.2 - 1.6 mg/dL; Start 06/04/16 at 14:45; Stop 06/22/16 at 15:14; Status DC Potassium Phosphate 2000 mg 2,000 mg Q4H PRN PO For Phosphorus < 2.5 mg/dL Last administered on 06/16/16 12:10; Start 06/04/16 at 14:45; Stop 06/22/16 at 15:15; Status DC Sodium Phosphate/ Sodium Chloride (Sodium Phosphate Inj/NS 250 ml Inj) 250 ml @ 42 mls/hr UNSCH PRN IV For Phosphorus < 2.5 mg/dL Last administered on 17:53; Start 06/04/16 at 14:45; Stop 06/22/16 at 15:15; Status DC Potassium Chloride (KCl 40 Meq/30 ml Liq) 40 meq UNSCH PRN PO/TUBE SEE LABEL COMMENTS; Start 06/04/16 at 14:45; Stop 06/22/16 at 15:15; Status DC Potassium Phosphate 2000 mg 2,000 mg UNSCH PRN PO/TUBE SEE LABEL COMMENTS; Start 06/04/16 at 14:45; Stop 06/22/16 at 15:15; Status DC Potassium Phosphate 30 mmol/ Sodium Chloride 260 ml @ 42 mls/hr UNSCH PRN IV SEE LABEL COMMENTS Last administered on 06/17/16 18:17; Start 06/04/16 at 14:45 ; Stop 06/22/16 at 15:15; Status DC Dextrose 1,000 ml @ 150 mls/hr Q6H40M IV Last administered on 06/04/16 21:40 ; Start 06/04/16 at 14:45; Stop 06/05/16 at 01:33; Status DC Sodium Chloride 1,000 ml @ 999 mls/hr BOLUS ONCE IV Last administered on 06/04 17:45; Start 06/04/16 at 17:45; Stop 06/04/16 at 18:45; Status DC Lactated Ringer's (Lr 1000 ml Inj) 1,000 ml @ 75 mls/hr [id number] IV Last administered on 06/05/16 18:23; Start 06/05/16 at 01:45; Stop 06/06/16 at 07:34 ; Status DC Miscellaneous Information 1 1 ONCE ONCE XX ; Start 06/05/16 at 04:00; Stop at 04:00; Status DC Insulin Human Regular/Sodium Chloride (NovoLIN R (IV INFUSION)/NS Inj) 100 ml @ 0 mls/hr TITRATE IV Last administered on 06/05/16 06:30; Start 06/05/16 at 04: 00; Stop 06/05/16 at 11:56; Status DC Dextrose 25 ml 25 ml UNSCH PRN IV PUSH HYPOGLYCEMIA- SEE COMMENTS; Start at 04:00; Stop 06/05/16 at 11:58; Status DC Calcium Gluconate/ Sodium Chloride (Calcium Gluconate Inj/NS Inj) 110 ml @ 110 mls/hr ONCE ONCE IV Last administered on 06/05/16 11:08; Start 06/05/16 at 10 :00; Stop 06/05/16 at 10:59; Status DC Albuterol/ Ipratropium 1 ampule 1 ampule Q6HR NEB NEB Last administered on 08:39; Start 06/05/16 at 10:00; Stop 06/13/16 at 09:58; Status DC Vancomycin HCl/ Sodium Chloride (Vancomycin Inj/ NS 250 ml Inj) 250 ml @ 250 mls/hr Q24H IV Last administered on 06/05/16 12:18; Start 06/05/16 at 10:00; Stop 06/06/16 at 10:04; Status DC Miscellaneous Information SPECIFIC LAB TO BE ROYA... ONCE ONCE XX ; Start at 09:45; Stop 06/08/16 at 09:46; Status Cancel Dextrose (D50w (Vial) Inj) 25 ml UNSCH PRN IV PUSH HYPOGLYCEMIA-SEE COMMENTS; Start 06/05/16 at 12:00; Stop 06/15/16 at 13:39; Status DC Glucagon (Glucagon Inj) 1 mg UNSCH PRN OTHER HYPOGLYCEMIA-SEE COMMENTS; Start 06/05/16 at 12:00; Stop 06/20/16 at 17:08; Status DC Insulin Human Regular 1 1 Q4H SQ Last administered on 06/11/16 16:00; Start at 12:00; Stop 06/11/16 at 17:21; Status DC Piperacillin Sod/ Tazobactam Sod 50 ml @ 100 mls/hr Q8H IV Last administered on 06/13/16 03:53; Start 06/05/16 at 20:00; Stop 06/13/16 at 12:14; Status DC Sodium Chloride 1,000 ml @ 84 mls/hr [id number] IV Last administered on 07:35; Start 06/06/16 at 07:45; Stop 06/07/16 at 11:15; Status DC Vancomycin HCl 1250 mg/Sodium Chloride 250 ml @ 250 mls/hr Q24H IV ; Start at 10:00; Stop 06/06/16 at 10:09; Status DC Vancomycin HCl 1250 mg/Sodium Chloride 262.5 ml @ 262.5 mls/ hr Q24H IV Last administered on 06/06/16 10:26; Start 06/06/16 at 10:00; Stop 06/06/16 at 13:28 ; Status DC Azithromycin 500 mg/Sodium Chloride 250 ml @ 250 mls/hr Q24H IV Last administered on 06/12/16 21:24; Start 06/06/16 at 21:00; Stop 06/13/16 at 12:14 ; Status DC Sodium Chloride (1/2 NS 1000 ml Inj) 1,000 ml @ 84 mls/hr [id number] IV Last administered on 06/12/16 21:23; Start 06/07/16 at 11:15; Stop 06/13/16 at 14:12 ; Status DC Docusate Sodium 100 mg 100 mg Q12HR PO Last administered on 06/23/16 08:40; Start 06/09/16 at 21:00; Stop 06/23/16 at 14:57; Status DC Potassium Phosphate/Sodium Chloride (Potassium Phosphate Inj/NS 250 ml Inj) 260 ml @ 43.333 mls/ hr ONCE ONCE IV Last administered on 06/10/16 13:02; Start 06/10/16 at 15:00; Stop 06/10/16 at 20:59; Status DC Heparin Sodium (Porcine) (Heparin Inj) 5,000 units Q12HR SQ Last administered on 06/18/16 08:17; Start 06/10/16 at 15:15; Stop 06/18/16 at 08:40; Status DC Dextrose (D50w (Vial) Inj) 25 ml UNSCH PRN IV PUSH HYPOGLYCEMIA-SEE COMMENTS; Start 06/11/16 at 17:30; Stop 06/20/16 at 17:08; Status DC Insulin Human Regular (NovoLIN R SUPPLEMENTAL SCALE) 1 Q4HR SQ Last administered on 06/20/16 08:25; Start 06/11/16 at 20:00; Stop 06/20/16 at 17:08 ; Status DC Modafinil (Provigil) 200 mg DAILY PO Last administered on 06/24/16 07:51; Start 06/12/16 at 07:00; Stop 06/24/16 at 13:50; Status DC Rocuronium Shubuta (Zemuron Inj) 50 mg STK-MED ONCE .ROUTE ; Start 06/13/16 at 11:03; Stop 06/13/16 at 11:04; Status DC Rocuronium Shubuta 50 mg 50 mg STK-MED ONCE .ROUTE ; Start 06/13/16 at 11:05; Stop 06/13/16 at 11:06; Status DC Cefepime HCl/ Sodium Chloride (Maxipime Inj/NS Inj) 100 ml @ 200 mls/hr Q8H IV Last administered on 06/20/16 03:50; Start 06/13/16 at 13:00; Stop 06/20/16 at 13:05; Status DC Fentanyl Citrate (fentaNYL INJ) 100 mcg STK-MED ONCE .ROUTE Last administered on 06/13/16 12:49; Start 06/13/16 at 12:25; Stop 06/13/16 at 12:26; Status DC Famotidine 20 mg 20 mg BID NG Last administered on 07/18/16 09:00; Start 06/13 at 21:00 Cefepime HCl/ Sodium Chloride (Maxipime Inj/NS Inj) 100 ml @ 200 mls/hr Q8H IV ; Start 06/13/16 at 16:00; Status Cancel Furosemide (Lasix Inj) 40 mg ONCE ONCE IV PUSH Last administered on 06/14/16 09:26; Start 06/14/16 at 08:30; Stop 06/14/16 at 08:31; Status DC Water (Free Water) 250 ml Q6HR G-TUBE Last administered on 07/18/16 12:00; Start 06/15/16 at 18:00 Albuterol/ Ipratropium (Duoneb Neb) 1 ampule Q6HR NEB NEB Last administered on 06/15/16 20:10; Start 06/15/16 at 16:00; Stop 06/15/16 at 22:00; Status DC Albuterol/ Ipratropium 1 ampule 1 ampule Q6HR NEB NEB Last administered on 15:30; Start 06/15/16 at 16:00; Stop 06/19/16 at 16:00; Status DC Potassium Phosphate/Sodium Chloride (Potassium Phosphate Inj/NS 250 ml Inj) 260 ml @ 43.333 mls/ hr ONCE ONCE IV ; Start 06/16/16 at 09:00; Stop 06/16/16 at 14:59; Status DC Heparin Sodium (Porcine) (Heparin Inj) 5,000 units Q8HR SQ Last administered on 07/18/16 06:26; Start 06/18/16 at 14:00 Metoclopramide HCl (Reglan Inj) 5 mg Q8HR IV PUSH Last administered on 13:08; Start 06/18/16 at 22:00; Stop 06/23/16 at 14:57; Status DC Magnesium Citrate (Citroma Liq) 300 ml ONCE ONCE PO ; Start 06/18/16 at 15:30; Stop 06/18/16 at 15:30; Status DC Polyethylene Glycol (Miralax) 17 gm ONCE ONCE PO Last administered on 15:52; Start 06/18/16 at 16:00; Stop 06/18/16 at 16:01; Status DC Epinephrine HCl (EPINEPHrine (1:10,000) INJ) 1 mg STK-MED ONCE .ROUTE ; Start at 01:47; Stop 06/20/16 at 01:48; Status DC Dextrose (D50w (Vial) Inj) 25 ml UNSCH PRN IV PUSH HYPOGLYCEMIA - SEE COMMENTS ; Start 06/20/16 at 15:30 Glucagon (Glucagon Inj) 1 mg UNSCH PRN OTHER HYPOGLYCEMIA-SEE COMMENTS; Start 06/20/16 at 15:30 Insulin Aspart (NovoLOG SUPPLEMENTAL SCALE) 1 Q6H SQ Last administered on 13:20; Start 06/20/16 at 18:00 Polyethylene Glycol (Miralax) 17 gm DAILY PO Last administered on 06/22/16 10: 02; Start 06/20/16 at 18:30; Stop 06/22/16 at 15:15; Status DC Lactulose 30 ml 30 ml BID PO Last administered on 06/22/16 10:02; Start at 09:00; Stop 06/22/16 at 13:36; Status DC Sodium Chloride (NS 1000 ml Inj) 1,000 ml @ 100 mls/hr Q10H IV Last administered on 06/22/16 13:25; Start 06/21/16 at 18:00; Stop 06/22/16 at 15:08; Status DC Povidone Iodine (Betadine 10% Top Soln) 1 applic BID TOPICAL Last administered on 07/18/16 09:00; Start 06/23/16 at 13:00 Metoclopramide HCl (Reglan Inj) 5 mg Q8HR PRN IV PUSH n/v/residuals; Start 06/23 at 15:00 Polyethylene Glycol (Miralax) 17 gm DAILY PRN PO no BM x 2 days; Start 06/23/16 at 15:00 Modafinil (Provigil) 400 mg DAILY PO Last administered on 07/18/16 09:00; Start 06/25/16 at 09:00 Modafinil 200 mg 200 mg ONCE ONCE PO Last administered on 06/24/16 14:47; Start 06/24/16 at 14:00; Stop 06/24/16 at 14:02; Status DC Ceftriaxone Sodium/Sodium Chloride (Rocephin Inj/NS Inj) 100 ml @ 200 mls/hr Q24H IV Last administered on 06/29/16 10:48; Start 06/28/16 at 11:00; Stop 06/30 at 11:27; Status DC Hyoscyamine Sulfate 0.125 mg 0.125 mg Q4H PRN PO INCREASED SECRETIONS Last administered on 07/15/16 04:52; Start 06/28/16 at 11:45 Piperacillin Sod/ Tazobactam Sod 100 ml @ 200 mls/hr Q6H IV Last administered on 06/30/16 13:30; Start 06/28/16 at 15:00; Stop 06/30/16 at 17:27; Status DC Ceftriaxone Sodium 2000 mg/ Sodium Chloride 100 ml @ 200 mls/hr Q24H IV Last administered on 07/10/16 00:12; Start 06/30/16 at 20:00; Stop 07/10/16 at 18:20 ; Status DC Pharmacy Profile Note 0 ml @ 0 mls/hr UNSCH IV ; Start 06/30/16 at 17:30; Stop 07/10/16 at 18:21; Status DC Vancomycin HCl 1250 mg/Sodium Chloride 262.5 ml @ 250 mls/hr ONCE ONCE IV Last administered on 07/01/16 10:50; Start 07/01/16 at 10:45; Stop 07/01/16 at 11:47; Status DC Vancomycin HCl/ Sodium Chloride (Vancomycin Inj/ NS 500 ml Inj) 515 ml @ 257.5 mls/ hr Q18H IV Last administered on 07/03/16 17:40; Start 07/02/16 at 05:00; Stop 07/04/16 at 08:50; Status DC Miscellaneous Information SPECIFIC LAB TO BE DRAWN:VANCO TROUGH DATE TO BE DR... ONCE ONCE XX Last administered on 07/03/16 16:45; Start 07/03/16 at 16: 45; Stop 07/03/16 at 16:46; Status DC Fluconazole/ Sodium Chloride 50 ml @ 50 mls/hr Q24H IV Last administered on 15:08; Start 07/01/16 at 15:00; Stop 07/10/16 at 18:21; Status DC Vancomycin HCl/ Sodium Chloride (Vancomycin Inj/ NS 500 ml Inj) 515 ml @ 257.5 mls/ hr Q24H IV Last administered on 07/09/16 21:00; Start 07/04/16 at 21:00; Stop 07/10/16 at 18:21; Status DC Miscellaneous Information SPECIFIC LAB TO BE DRAWN:VANCOMYCIN TROUGH DATE TO... ONCE ONCE XX Last administered on 07/07/16t 20:45; Start 07/07/16 at 20:45; Stop 07/07/16 at 20:46; Status DC Date of Insertion: Jul 05, 2016 A/P Problem List: (1) UTI (urinary tract infection) ICD Code: N39.0 Status: Acute (2) Alzheimer's dementia ICD Code: F02.80 Status: Chronic (3) Malnourished ICD Code: E46 Status: Acute (4) Acute respiratory failure with hypoxia and hypercarbia ICD Code: J96.01 Status: Acute (5) Hypertension ICD Code: I10 Status: Chronic (6) GERD (gastroesophageal reflux disease) ICD Code: K21.9 Status: Chronic (7) Diarrhea ICD Code: R19.7 Status: Acute (8) Fever ICD Code: R50.9 Status: Acute Assessment and Plan 80 years old male Alzheimer's dementia -Patient also with delirium, depression, anxiety. Continue Provigil. Acute on chronic respiratory failure S/P tracheostomy - t collar 28%. Pulmonary ff. Continue bronchodilators as needed. -S/P tx Klebsiella/MRSA Pneumonia 07/10 -S/P Tx St. epidermidis- On T piece 28%. Levsin for secretions, Sputum culture growing Klebsiella pneumoniae and MRSA. Repeat sputum culture 07/12/16 +MRSA S/P Ceftriaxone and Vancomycin. doing well off of antibiotics. -S/P Tx for Candiduria Completed IV fluconazole 07/10 -last nasal trach sputum + MRSA, repeat on 07/17. Hypertension: controlled. Anorexia, failure to thrive, moderate protein calorie malnutrition: Continue tube feeds with Glucerna.- tolerating well- no residuals tube feeding rate @ 50 cc/hr- GERD: Continue Pepcid. Reported Diarrhea 07/05: monitor. on Lactinex.- resolved Hyperglycemia of critical illness: Monitor Accu-Cheks and cover with sliding scale insulin. DVT prophylaxis: Heparin. PT/OT consult CM ff along with us- DC planning-SNF to [facility]. Need 3 negative sputum before patient can be accepted. Priya Goff MD Jul 18, 2016 14:21
--- NOTE | 2016-07-18 19:52 | HHI.PR ---
Subjective Remarks 80 YO male with Dementia, RF,Trach Pt aphasic Tolerates TF On Trach collar No fever Objective Vital Signs Vital Signs Date Time Temp Pulse Resp B/P Pulse Ox O2 Delivery O2 Flow Rate FiO2 07/18/16 16:00 97.8 90 20 93/64 98 07/18/16 12:00 97.6 94 20 108/61 99 07/18/16 08:22 98 T-piece 28 07/18/16 08:00 98.1 91 16 97/62 100 07/18/16 08:00 96 Trach Collar 28 07/18/16 04:00 98.0 89 20 136/68 98 07/18/16 00:48 97.2 80 22 128/58 97 07/17/16 22:30 96 T-piece 6.00 07/17/16 20:36 97.0 84 24 132/56 97 I/O 07/17/16 07/17/16 07/17/16 07/18/16 07/18/16 07/18/16 07:00 15:00 23:00 07:00 15:00 23:00 Output Total 400 ml 175 ml 175 ml Balance -400 ml -175 ml -175 ml Output Urine Total 400 ml 175 ml 175 ml # Bowel Movements 1 1 Objective Remarks GENERAL: Elderly frail male, mild sob SKIN: Warm and dry. HEAD: Normocephalic. EYES: No scleral icterus. No injection or drainage. NECK: Supple, trachea midline. No JVD or lymphadenopathy. CARDIOVASCULAR: Regular rate and rhythm without murmurs, gallops, or rubs. RESPIRATORY: Breath sounds equal bilaterally. No accessory muscle use. GASTROINTESTINAL: Abdomen soft, non-tender, nondistended. MUSCULOSKELETAL: No cyanosis, or edema. BACK: Nontender without obvious deformity. No CVA tenderness. A/P Assessment and Plan RF,s/p Trach Aphasia Dysphagia Dementia PLAN: Aerosol nebs Tracheal suction Levsin qid Stable on Trach collar Tube feeding 40 cc/hr Silverio Reyes MD Jul 18, 2016 19:52
[2016-07-19] VITALS (7 sets, daily range): BP systolic 95–152; BP diastolic 60–90; PULSE 83–101; RESP 18–23; TEMP 96.6–98.7; O2SAT 95–99
[2016-07-19] MEDS: LOW DOSE INSULIN NOVOLOG SUPPLEMENTAL SCALE SQ SCH ×5 (00:45→23:14)
[2016-07-19] MEDS: CHLORHEXIDINE GLUCONATE 2 % 1 PACK (2 CLOTHS) TOP SCH (09:34)
[2016-07-19] MEDS: MODAFINIL 200 MG TAB PO SCH (09:35)
[2016-07-19] MEDS: FAMOTIDINE 20 MG TAB NG SCH ×2 (09:35→23:11)
[2016-07-19] MEDS: SODIUM CHLORIDE 0.9% FLUSH 5 ML FLUSH IV FLUSH SCH ×2 (09:36→23:13)
[2016-07-19] MEDS: POVIDONE IODINE 10% SOLN 480 ML BTL TOPICAL SCH ×2 (09:36→23:13)
[2016-07-19] MEDS: FREE WATER G-TUBE SCH ×5 (09:40→23:14)
--- NOTE | 2016-07-19 13:17 | HHI.PR ---
Subjective Remarks f/u for respiratory distress patient continues to be nonverbal. No acute issues. Objective Vitals Vital Signs Date Time Temp Pulse Resp B/P Pulse Ox O2 Delivery O2 Flow Rate FiO2 07/19/16 12:00 98.7 93 23 119/71 98 07/19/16 08:52 97 T-piece 6.00 28 07/19/16 08:14 98.1 101 23 152/90 98 07/19/16 05:01 96.8 84 20 118/60 97 07/19/16 00:11 96.6 83 20 112/62 97 07/18/16 20:00 96.3 87 22 121/69 98 07/18/16 19:45 97 T-Piece 5.00 28 07/18/16 16:00 97.8 90 20 93/64 98 I/O 07/18/16 07/18/16 07/18/16 07/19/16 07/19/16 07/19/16 07:00 15:00 23:00 07:00 15:00 23:00 Output Total 400 ml Balance -400 ml Output Urine Total 400 ml # Bowel Movements 2 Objective Remarks Gen NAD HEENT trach in place. CV RRR. r/m/g Ext + contractures. Neuro does not follow commands. Medications and IVs Current Medications Vancomycin HCl 1000 mg/Sodium Chloride 250 ml @ 250 mls/hr ONCE STAT IV Last administered on 06/04/16 03:23; Start 06/04/16 at 02:19; Stop 06/04/16 at 03:18 ; Status DC Piperacillin Sod/ Tazobactam Sod 100 ml @ 200 mls/hr ONCE STAT IV Last administered on 06/04/16 02:54; Start 06/04/16 at 02:19; Stop 06/04/16 at 02:48 ; Status DC Sodium Chloride (NS 500 ml Inj) 500 ml @ 500 mls/hr BOLUS ONCE IV Last administered on 06/04/16 02:35; Start 06/04/16 at 02:30; Stop 06/04/16 at 03:29 ; Status DC Etomidate (Amidate Inj) 20 mg ONCE ONCE IVP Last administered on 06/04/16 02: 45; Start 06/04/16 at 02:30; Stop 06/04/16 at 02:31; Status DC Vecuronium [place] (Norcuron 10 Mg Inj) 10 mg ONCE ONCE IV Last administered on 06/04/16 02:45; Start 06/04/16 at 02:30; Stop 06/04/16 at 02:31; Status DC IV Flush (NS Flush) 2 ml UNSCH PRN IVF FLUSH AFTER USING IV ACCESS; Start 06/04 at 02:30; Stop 06/04/16 at 04:21; Status DC Acetaminophen 650 mg 650 mg ONCE ONCE RECTAL Last administered on 06/04/16 02 :54; Start 06/04/16 at 02:30; Stop 06/04/16 at 02:31; Status DC Sodium Chloride (NS 500 ml Inj) 500 ml @ 500 mls/hr BOLUS ONCE IV Last administered on 06/04/16 04:11; Start 06/04/16 at 03:45; Stop 06/04/16 at 04:44 ; Status DC Insulin Human Regular (NovoLIN R INJ) 4 units ONCE ONCE IVP Last administered on 06/04/16 04:10; Start 06/04/16 at 04:00; Stop 06/04/16 at 04:01; Status DC IV Flush (NS Flush) 2 ml UNSCH PRN IV FLUSH FLUSH AFTER USING IV ACCESS Last administered on 07/02/16 05:00; Start 06/04/16 at 04:15 IV Flush (NS Flush) 2 ml BID IV FLUSH Last administered on 07/19/16 09:36; Start 06/04/16 at 09:00 Acetaminophen (Tylenol) 650 mg Q6H PRN PO PAIN 1-10 AND/OR FEVER >101F Last administered on 07/15/16 04:52; Start 06/04/16 at 04:15 Morphine Sulfate (Morphine Inj) 2 mg Q2H PRN IV PAIN SCALE 6 TO 10 Last administered on 07/13/16 14:02; Start 06/04/16 at 04:15 Pantoprazole Sodium (Protonix Inj) 40 mg DAILY IV Last administered on 08:50; Start 06/04/16 at 09:00; Stop 06/13/16 at 14:12; Status DC Ondansetron HCl (Zofran Inj) 4 mg Q6H PRN IV NAUSEA OR VOMITING Last administered on 06/19/16 04:27; Start 06/04/16 at 04:15 Albuterol/ Ipratropium (Duoneb Neb) 1 ampule Q4HR NEB PRN INH WHEEZING Last administered on 07/01/16 06:06; Start 06/04/16 at 04:15 Heparin Sodium (Porcine) (Heparin Inj) 5,000 units Q12HR SQ Last administered on 06/05/16 08:10; Start 06/04/16 at 09:00; Stop 06/10/16 at 12:42; Status DC Miscellaneous Information 1 [id number] XX Last administered on 06/04/16 04:15; Start 06/04/16 at 04:15 Chlorhexidine Gluconate (Chlorhexidine 2% Cloth) Taper DAILY@04 TOP Last administered on 06/25/16 04:00; Start 06/05/16 at 04:00; Stop 06/01/17 at 03:59 Chlorhexidine Gluconate 3 pack 3 pack UNSCH PRN TOP HYGIENIC CARE; Start at 04:15 Propofol (Diprivan 1000 Mg/100ml Inj) 100 ml @ 0 mls/hr TITRATE IV Last administered on 06/11/16 20:38; Start 06/04/16 at 04:15; Stop 06/22/16 at 15:13 ; Status DC Dextrose (D50w (Vial) Inj) 25 ml UNSCH PRN IV PUSH HYPOGLYCEMIA-SEE COMMENTS; Start 06/04/16 at 04:15; Stop 06/04/16 at 10:27; Status DC Glucagon (Glucagon Inj) 1 mg UNSCH PRN OTHER HYPOGLYCEMIA-SEE COMMENTS; Start 06/04/16 at 04:15; Stop 06/04/16 at 10:27; Status DC Insulin Aspart 1 1 Q4HR SQ Last administered on 06/04/16 07:56; Start at 04:00; Stop 06/04/16 at 09:54; Status DC Propofol (Diprivan 1000 Mg/100ml Inj) 100 ml @ 0 mls/hr TITRATE IV ; Start 06/04 at 04:15; Stop 06/04/16 at 04:21; Status DC Dextrose (D50w (Vial) Inj) 25 ml UNSCH PRN IV PUSH HYPOGLYCEMIA - SEE COMMENTS ; Start 06/04/16 at 04:30; Status Cancel Glucagon 1 mg 1 mg UNSCH PRN OTHER HYPOGLYCEMIA-SEE COMMENTS; Start 06/04/16 at 04:30; Status Cancel Lactated Ringer's 1,000 ml @ 175 mls/hr Q5H43M IV Last administered on 04:45; Start 06/04/16 at 04:45; Stop 06/04/16 at 14:47; Status DC Sodium Chloride 1,000 ml @ 1,000 mls/hr Q1H IV Last administered on 06/04/16 08:45; Start 06/04/16 at 07:45; Stop 06/04/16 at 09:44; Status DC Insulin Human Regular/Sodium Chloride (NovoLIN R (IV INFUSION)/NS Inj) 100 ml @ 0 mls/hr TITRATE IV Last administered on 06/04/16 11:31; Start 06/04/16 at 11: 00; Stop 06/05/16 at 03:52; Status DC Dextrose (D50w (Vial) Inj) 25 ml UNSCH PRN IV PUSH SEE LABEL COMMENTS; Start at 10:00; Stop 06/05/16 at 03:52; Status DC Miscellaneous Information 1 1 ONCE ONCE XX Last administered on 06/04/16 10: 00; Start 06/04/16 at 10:00; Stop 06/04/16 at 10:32; Status DC Pharmacy Profile Note 0 ml @ 0 mls/hr UNSCH OTHER ; Start 06/04/16 at 10:00; Stop 06/06/16 at 13:28; Status DC Piperacillin Sod/ Tazobactam Sod (Zosyn 2.25 Gm Premix) 50 ml @ 100 mls/hr Q6H IV Last administered on 06/05/16 12:17; Start 06/04/16 at 12:00; Stop at 14:02; Status DC Water 300 ml 300 ml Q6HR G-TUBE Last administered on 06/04/16 11:32; Start at 12:00; Stop 06/04/16 at 14:45; Status DC Sodium Chloride 1,000 ml @ 999 mls/hr BOLUS ONCE IV Last administered on 06/04 13:30; Start 06/04/16 at 13:30; Stop 06/04/16 at 14:30; Status DC Sodium Chloride (NS 1000 ml Inj) 1,000 ml @ 999 mls/hr BOLUS ONCE IV Last administered on 06/04/16 13:30; Start 06/04/16 at 13:30; Stop 06/04/16 at 14:30 ; Status DC Water 300 ml 300 ml Q4HR G-TUBE Last administered on 06/15/16 12:00; Start at 16:00; Stop 06/15/16 at 13:08; Status DC Potassium Chloride 100 ml @ 50 mls/hr Q2H PRN IV For Potassium 2.8 - 3.2 mEq/ L Last administered on 06/13/16 08:49; Start 06/04/16 at 14:45; Stop 06/22/16 at 15:13; Status DC Potassium Chloride (KCl 20 Meq Premix Inj) 100 ml @ 50 mls/hr Q2H PRN IV For Potassium 2.8 - 3.2 mEq/L; Start 06/04/16 at 14:45; Stop 06/22/16 at 15:13; Status DC Potassium Chloride 40 meq 40 meq UNSCH PRN PO/TUBE For Potassium 3.3 - 3.5 mEq/ L; Start 06/04/16 at 14:45; Stop 06/22/16 at 15:14; Status DC Potassium Chloride 100 ml @ 25 mls/hr UNSCH PRN IV For Potassium 3.3 - 3.5 mEq /L Last administered on 06/09/16 08:07; Start 06/04/16 at 14:45; Stop 06/22/16 at 15:14; Status DC Potassium Chloride 100 ml @ 50 mls/hr Q2H PRN IV For Potassium 3.3 - 3.5 mEq/L ; Start 06/04/16 at 14:45; Stop 06/22/16 at 15:14; Status DC Magnesium Sulfate/ Sodium Chloride (Magnesium Sulfate Inj/NS Inj) 100 ml @ 50 mls/hr UNSCH PRN IV For Magnesium 0.9 - 1.1 mg/dL; Start 06/04/16 at 14:45; Stop 06/22/16 at 15:14; Status DC Magnesium Oxide 800 mg 800 mg UNSCH PRN PO For Magnesium 1.2 - 1.6 mg/dL; Start 06/04/16 at 14:45; Stop 06/22/16 at 15:14; Status DC Magnesium Sulfate/ Sodium Chloride (Magnesium Sulfate Inj/NS Inj) 100 ml @ 50 mls/hr UNSCH PRN IV For Magnesium 1.2 - 1.6 mg/dL; Start 06/04/16 at 14:45; Stop 06/22/16 at 15:14; Status DC Potassium Phosphate 2000 mg 2,000 mg Q4H PRN PO For Phosphorus < 2.5 mg/dL Last administered on 06/16/16 12:10; Start 06/04/16 at 14:45; Stop 06/22/16 at 15:15; Status DC Sodium Phosphate/ Sodium Chloride (Sodium Phosphate Inj/NS 250 ml Inj) 250 ml @ 42 mls/hr UNSCH PRN IV For Phosphorus < 2.5 mg/dL Last administered on 17:53; Start 06/04/16 at 14:45; Stop 06/22/16 at 15:15; Status DC Potassium Chloride (KCl 40 Meq/30 ml Liq) 40 meq UNSCH PRN PO/TUBE SEE LABEL COMMENTS; Start 06/04/16 at 14:45; Stop 06/22/16 at 15:15; Status DC Potassium Phosphate 2000 mg 2,000 mg UNSCH PRN PO/TUBE SEE LABEL COMMENTS; Start 06/04/16 at 14:45; Stop 06/22/16 at 15:15; Status DC Potassium Phosphate 30 mmol/ Sodium Chloride 260 ml @ 42 mls/hr UNSCH PRN IV SEE LABEL COMMENTS Last administered on 06/17/16 18:17; Start 06/04/16 at 14:45 ; Stop 06/22/16 at 15:15; Status DC Dextrose 1,000 ml @ 150 mls/hr Q6H40M IV Last administered on 06/04/16 21:40 ; Start 06/04/16 at 14:45; Stop 06/05/16 at 01:33; Status DC Sodium Chloride 1,000 ml @ 999 mls/hr BOLUS ONCE IV Last administered on 06/04 17:45; Start 06/04/16 at 17:45; Stop 06/04/16 at 18:45; Status DC Lactated Ringer's (Lr 1000 ml Inj) 1,000 ml @ 75 mls/hr [id number] IV Last administered on 06/05/16 18:23; Start 06/05/16 at 01:45; Stop 06/06/16 at 07:34 ; Status DC Miscellaneous Information 1 1 ONCE ONCE XX ; Start 06/05/16 at 04:00; Stop at 04:00; Status DC Insulin Human Regular/Sodium Chloride (NovoLIN R (IV INFUSION)/NS Inj) 100 ml @ 0 mls/hr TITRATE IV Last administered on 06/05/16 06:30; Start 06/05/16 at 04: 00; Stop 06/05/16 at 11:56; Status DC Dextrose 25 ml 25 ml UNSCH PRN IV PUSH HYPOGLYCEMIA- SEE COMMENTS; Start at 04:00; Stop 06/05/16 at 11:58; Status DC Calcium Gluconate/ Sodium Chloride (Calcium Gluconate Inj/NS Inj) 110 ml @ 110 mls/hr ONCE ONCE IV Last administered on 06/05/16 11:08; Start 06/05/16 at 10 :00; Stop 06/05/16 at 10:59; Status DC Albuterol/ Ipratropium 1 ampule 1 ampule Q6HR NEB NEB Last administered on 08:39; Start 06/05/16 at 10:00; Stop 06/13/16 at 09:58; Status DC Vancomycin HCl/ Sodium Chloride (Vancomycin Inj/ NS 250 ml Inj) 250 ml @ 250 mls/hr Q24H IV Last administered on 06/05/16 12:18; Start 06/05/16 at 10:00; Stop 06/06/16 at 10:04; Status DC Miscellaneous Information SPECIFIC LAB TO BE ROYA... ONCE ONCE XX ; Start at 09:45; Stop 06/08/16 at 09:46; Status Cancel Dextrose (D50w (Vial) Inj) 25 ml UNSCH PRN IV PUSH HYPOGLYCEMIA-SEE COMMENTS; Start 06/05/16 at 12:00; Stop 06/15/16 at 13:39; Status DC Glucagon (Glucagon Inj) 1 mg UNSCH PRN OTHER HYPOGLYCEMIA-SEE COMMENTS; Start 06/05/16 at 12:00; Stop 06/20/16 at 17:08; Status DC Insulin Human Regular 1 1 Q4H SQ Last administered on 06/11/16 16:00; Start at 12:00; Stop 06/11/16 at 17:21; Status DC Piperacillin Sod/ Tazobactam Sod 50 ml @ 100 mls/hr Q8H IV Last administered on 06/13/16 03:53; Start 06/05/16 at 20:00; Stop 06/13/16 at 12:14; Status DC Sodium Chloride 1,000 ml @ 84 mls/hr [id number] IV Last administered on 07:35; Start 06/06/16 at 07:45; Stop 06/07/16 at 11:15; Status DC Vancomycin HCl 1250 mg/Sodium Chloride 250 ml @ 250 mls/hr Q24H IV ; Start at 10:00; Stop 06/06/16 at 10:09; Status DC Vancomycin HCl 1250 mg/Sodium Chloride 262.5 ml @ 262.5 mls/ hr Q24H IV Last administered on 06/06/16 10:26; Start 06/06/16 at 10:00; Stop 06/06/16 at 13:28 ; Status DC Azithromycin 500 mg/Sodium Chloride 250 ml @ 250 mls/hr Q24H IV Last administered on 06/12/16 21:24; Start 06/06/16 at 21:00; Stop 06/13/16 at 12:14 ; Status DC Sodium Chloride (1/2 NS 1000 ml Inj) 1,000 ml @ 84 mls/hr [id number] IV Last administered on 06/12/16 21:23; Start 06/07/16 at 11:15; Stop 06/13/16 at 14:12 ; Status DC Docusate Sodium 100 mg 100 mg Q12HR PO Last administered on 06/23/16 08:40; Start 06/09/16 at 21:00; Stop 06/23/16 at 14:57; Status DC Potassium Phosphate/Sodium Chloride (Potassium Phosphate Inj/NS 250 ml Inj) 260 ml @ 43.333 mls/ hr ONCE ONCE IV Last administered on 06/10/16 13:02; Start 06/10/16 at 15:00; Stop 06/10/16 at 20:59; Status DC Heparin Sodium (Porcine) (Heparin Inj) 5,000 units Q12HR SQ Last administered on 06/18/16 08:17; Start 06/10/16 at 15:15; Stop 06/18/16 at 08:40; Status DC Dextrose (D50w (Vial) Inj) 25 ml UNSCH PRN IV PUSH HYPOGLYCEMIA-SEE COMMENTS; Start 06/11/16 at 17:30; Stop 06/20/16 at 17:08; Status DC Insulin Human Regular (NovoLIN R SUPPLEMENTAL SCALE) 1 Q4HR SQ Last administered on 06/20/16 08:25; Start 06/11/16 at 20:00; Stop 06/20/16 at 17:08 ; Status DC Modafinil (Provigil) 200 mg DAILY PO Last administered on 06/24/16 07:51; Start 06/12/16 at 07:00; Stop 06/24/16 at 13:50; Status DC Rocuronium [place] (Zemuron Inj) 50 mg STK-MED ONCE .ROUTE ; Start 06/13/16 at 11:03; Stop 06/13/16 at 11:04; Status DC Rocuronium [place] 50 mg 50 mg STK-MED ONCE .ROUTE ; Start 06/13/16 at 11:05; Stop 06/13/16 at 11:06; Status DC Cefepime HCl/ Sodium Chloride (Maxipime Inj/NS Inj) 100 ml @ 200 mls/hr Q8H IV Last administered on 06/20/16 03:50; Start 06/13/16 at 13:00; Stop 06/20/16 at 13:05; Status DC Fentanyl Citrate (fentaNYL INJ) 100 mcg STK-MED ONCE .ROUTE Last administered on 06/13/16 12:49; Start 06/13/16 at 12:25; Stop 06/13/16 at 12:26; Status DC Famotidine 20 mg 20 mg BID NG Last administered on 07/19/16 09:35; Start at 21:00 Cefepime HCl/ Sodium Chloride (Maxipime Inj/NS Inj) 100 ml @ 200 mls/hr Q8H IV ; Start 06/13/16 at 16:00; Status Cancel Furosemide (Lasix Inj) 40 mg ONCE ONCE IV PUSH Last administered on 06/14/16 09:26; Start 06/14/16 at 08:30; Stop 06/14/16 at 08:31; Status DC Water (Free Water) 250 ml Q6HR G-TUBE Last administered on 07/19/16 09:40; Start 06/15/16 at 18:00 Albuterol/ Ipratropium (Duoneb Neb) 1 ampule Q6HR NEB NEB Last administered on 06/15/16 20:10; Start 06/15/16 at 16:00; Stop 06/15/16 at 22:00; Status DC Albuterol/ Ipratropium 1 ampule 1 ampule Q6HR NEB NEB Last administered on 15:30; Start 06/15/16 at 16:00; Stop 06/19/16 at 16:00; Status DC Potassium Phosphate/Sodium Chloride (Potassium Phosphate Inj/NS 250 ml Inj) 260 ml @ 43.333 mls/ hr ONCE ONCE IV ; Start 06/16/16 at 09:00; Stop 06/16/16 at 14:59; Status DC Heparin Sodium (Porcine) (Heparin Inj) 5,000 units Q8HR SQ Last administered on 07/18/16 22:13; Start 06/18/16 at 14:00 Metoclopramide HCl (Reglan Inj) 5 mg Q8HR IV PUSH Last administered on 13:08; Start 06/18/16 at 22:00; Stop 06/23/16 at 14:57; Status DC Magnesium Citrate (Citroma Liq) 300 ml ONCE ONCE PO ; Start 06/18/16 at 15:30; Stop 06/18/16 at 15:30; Status DC Polyethylene Glycol (Miralax) 17 gm ONCE ONCE PO Last administered on 15:52; Start 06/18/16 at 16:00; Stop 06/18/16 at 16:01; Status DC Epinephrine HCl (EPINEPHrine (1:10,000) INJ) 1 mg STK-MED ONCE .ROUTE ; Start at 01:47; Stop 06/20/16 at 01:48; Status DC Dextrose (D50w (Vial) Inj) 25 ml UNSCH PRN IV PUSH HYPOGLYCEMIA - SEE COMMENTS ; Start 06/20/16 at 15:30 Glucagon (Glucagon Inj) 1 mg UNSCH PRN OTHER HYPOGLYCEMIA-SEE COMMENTS; Start 06/20/16 at 15:30 Insulin Aspart (NovoLOG SUPPLEMENTAL SCALE) 1 Q6H SQ Last administered on 00:45; Start 06/20/16 at 18:00 Polyethylene Glycol (Miralax) 17 gm DAILY PO Last administered on 06/22/16 10: 02; Start 06/20/16 at 18:30; Stop 06/22/16 at 15:15; Status DC Lactulose 30 ml 30 ml BID PO Last administered on 06/22/16 10:02; Start at 09:00; Stop 06/22/16 at 13:36; Status DC Sodium Chloride (NS 1000 ml Inj) 1,000 ml @ 100 mls/hr Q10H IV Last administered on 06/22/16 13:25; Start 06/21/16 at 18:00; Stop 06/22/16 at 15:08; Status DC Povidone Iodine (Betadine 10% Top Soln) 1 applic BID TOPICAL Last administered on 07/19/16 09:36; Start 06/23/16 at 13:00 Metoclopramide HCl (Reglan Inj) 5 mg Q8HR PRN IV PUSH n/v/residuals; Start 06/23 at 15:00 Polyethylene Glycol (Miralax) 17 gm DAILY PRN PO no BM x 2 days; Start 06/23/16 at 15:00 Modafinil (Provigil) 400 mg DAILY PO Last administered on 07/19/16 09:35; Start 06/25/16 at 09:00 Modafinil 200 mg 200 mg ONCE ONCE PO Last administered on 06/24/16 14:47; Start 06/24/16 at 14:00; Stop 06/24/16 at 14:02; Status DC Ceftriaxone Sodium/Sodium Chloride (Rocephin Inj/NS Inj) 100 ml @ 200 mls/hr Q24H IV Last administered on 06/29/16 10:48; Start 06/28/16 at 11:00; Stop 06/30 at 11:27; Status DC Hyoscyamine Sulfate 0.125 mg 0.125 mg Q4H PRN PO INCREASED SECRETIONS Last administered on 07/15/16 04:52; Start 06/28/16 at 11:45 Piperacillin Sod/ Tazobactam Sod 100 ml @ 200 mls/hr Q6H IV Last administered on 06/30/16 13:30; Start 06/28/16 at 15:00; Stop 06/30/16 at 17:27; Status DC Ceftriaxone Sodium 2000 mg/ Sodium Chloride 100 ml @ 200 mls/hr Q24H IV Last administered on 07/10/16 00:12; Start 06/30/16 at 20:00; Stop 07/10/16 at 18:20 ; Status DC Pharmacy Profile Note 0 ml @ 0 mls/hr UNSCH IV ; Start 06/30/16 at 17:30; Stop 07/10/16 at 18:21; Status DC Vancomycin HCl 1250 mg/Sodium Chloride 262.5 ml @ 250 mls/hr ONCE ONCE IV Last administered on 07/01/16 10:50; Start 07/01/16 at 10:45; Stop 07/01/16 at 11:47; Status DC Vancomycin HCl/ Sodium Chloride (Vancomycin Inj/ NS 500 ml Inj) 515 ml @ 257.5 mls/ hr Q18H IV Last administered on 07/03/16 17:40; Start 07/02/16 at 05:00; Stop 07/04/16 at 08:50; Status DC Miscellaneous Information SPECIFIC LAB TO BE DRAWN:VANCO TROUGH DATE TO BE DR... ONCE ONCE XX Last administered on 07/03/16 16:45; Start 07/03/16 at 16: 45; Stop 07/03/16 at 16:46; Status DC Fluconazole/ Sodium Chloride 50 ml @ 50 mls/hr Q24H IV Last administered on 15:08; Start 07/01/16 at 15:00; Stop 07/10/16 at 18:21; Status DC Vancomycin HCl/ Sodium Chloride (Vancomycin Inj/ NS 500 ml Inj) 515 ml @ 257.5 mls/ hr Q24H IV Last administered on 07/09/16 21:00; Start 07/04/16 at 21:00; Stop 07/10/16 at 18:21; Status DC Miscellaneous Information SPECIFIC LAB TO BE DRAWN:VANCOMYCIN TROUGH DATE TO... ONCE ONCE XX Last administered on 07/07/16 20:45; Start 07/07/16 at 20:45; Stop 07/07/16 at 20:46; Status DC Date of Insertion: Jul 05, 2016 A/P Problem List: (1) UTI (urinary tract infection) ICD Code: N39.0 Status: Acute (2) Alzheimer's dementia ICD Code: F02.80 Status: Chronic (3) Malnourished ICD Code: E46 Status: Acute (4) Acute respiratory failure with hypoxia and hypercarbia ICD Code: J96.01 Status: Acute (5) Hypertension ICD Code: I10 Status: Chronic (6) GERD (gastroesophageal reflux disease) ICD Code: K21.9 Status: Chronic (7) Diarrhea ICD Code: R19.7 Status: Acute (8) Fever ICD Code: R50.9 Status: Acute Assessment and Plan 80 years old male Alzheimer's dementia -Patient also with delirium, depression, anxiety. Continue Provigil. Acute on chronic respiratory failure S/P tracheostomy - t collar 28%. Pulmonary ff. Continue bronchodilators as needed. -S/P tx Klebsiella/MRSA Pneumonia 07/10 -S/P Tx St. epidermidis- On T piece 28%. Levsin for secretions, Sputum culture growing Klebsiella pneumoniae and MRSA. Repeat sputum culture 07/12/16 +MRSA S/P Ceftriaxone and Vancomycin. doing well off of antibiotics. -S/P Tx for Candiduria Completed IV fluconazole 07/10 -last nasal trach sputum + MRSA, repeat on 07/17. Hypertension: controlled. Anorexia, failure to thrive, moderate protein calorie malnutrition: Continue tube feeds with Glucerna.- tolerating well- no residuals tube feeding rate @ 50 cc/hr- GERD: Continue Pepcid. Reported Diarrhea 07/05: monitor. on Lactinex.- resolved Hyperglycemia of critical illness: Monitor Accu-Cheks and cover with sliding scale insulin. DVT prophylaxis: Heparin. PT/OT consult Disposition: Need 3 negative sputum before patient can be accepted to [facility]. Priya Goff MD Jul 19, 2016 13:17
[2016-07-19] MEDS: HEPARIN SODIUM - SQ 10,000 UNITS/ML VIAL SQ SCH ×2 (13:21→23:11)
--- NOTE | 2016-07-19 15:24 | HHI.IDPN ---
Subjective Subjective Remarks + moderate thick yelowish secretions afebrile C.diff negative Antibiotics none Past Medical History Alzheimer's dementia, anxiety, BPH and HNT Allergies: Coded Allergies: *MDRO Multi-Drug Resistant Organism (Verified Adverse Reaction, Unknown, ) MRSA (sputum) - 06/28/16, 07/12/16 Objective . Vital Signs Date Time Temp Pulse Resp B/P Pulse Ox O2 Delivery O2 Flow Rate FiO2 07/19/16 12:00 98.7 93 23 119/71 98 07/19/16 09:10 Blow By 28 T-Piece 07/19/16 08:52 97 T-piece 6.00 28 07/19/16 08:14 98.1 101 23 152/90 98 07/19/16 05:01 96.8 84 20 118/60 97 07/19/16 00:11 96.6 83 20 112/62 97 07/18/16 20:00 96.3 87 22 121/69 98 07/18/16 19:45 97 T-Piece 5.00 28 07/18/16 16:00 97.8 90 20 93/64 98 07/18/16 07/18/16 07/19/16 15:00 23:00 07:00 Output Total 400 ml Balance -400 ml Output Urine Total 400 ml # Bowel Movements 2 . Microbiology Date/Time Procedure Status Source Growth 07/18/16 01:10 Gram Stain - Final Resulted Sputum Endotracheal 07/18/16 01:10 Sputum Culture - Preliminary Resulted S. Aureus Mrsa Gram Negative [facility] Last Impressions Chest X-Ray 06/27/16 0000 Signed Impressions: Service Date/Time: Monday, June 27, 2016 09:03 - CONCLUSION: No acute disease. There is no evidence of pneumonia. Dhruv Tenorio MD Abdomen/Pelvis CT 06/19/16 0000 Signed Impressions: Service Date/Time: Monday, June 20, 2016 02:30 - CONCLUSION: 1. Moderate stool throughout the colon. No obstruction or inflammatory changes. No small bowel distention. 2. Subacute appearing left hip fracture. 3. PEG tube without evidence of an acute complication. Gary Griffin MD Abdomen X-Ray 06/17/16 0000 Signed Impressions: Service Date/Time: Friday, June 17, 2016 11:51 - CONCLUSION: No abnormal dilatation of the large or small bowel to indicate an ileus. There is a gastrostomy tube in the stomach which appears to be somewhat distended with air. José Miguel Celis MD Physical Exam CONSTITUTIONAL/GENERAL: This is an adequately nourished patient, unresponsive SKIN: No jaundice, rashes, or lesions. Skin temperature appropriate. Not diaphoretic. EYES: Pupils equal and round and reactive. No scleral icterus. No injection or drainage. Fundi not examined. ENT: Nose without bleeding or purulent drainage. oral mucosae dry, without visible erythema, exudates, masses, or lesions. NECK: Trachea midline. Trach in place with yellowish sputum CARDIOVASCULAR: Regular rate and rhythm without murmurs, gallops, or rubs. No JVD. Peripheral pulses symmetric. RESPIRATORY/CHEST: Symmetric, unlabored respirations. B/l rhonchi. GASTROINTESTINAL: Abdomen soft, non-tender, nondistended. No hepato-splenomegaly , or palpable masses. No guarding. Bowel sounds present. PEG in place GENITOURINARY: Without palpable bladder distension. Mckeon catheter in place with clear light yellow urine MUSCULOSKELETAL: Extremities without clubbing, cyanosis, contracted no sigificant edema. NEUROLOGICAL: nonverbal; unresponsive; PSYCHIATRIC: unable to assess Assessment & Plan Remarks UTI, sepsis, resolved ARF, improved Acute VDRF -resolved ? PNA: MRSA, Kleb R zosyn Satph epi bacteremia , low grade doubbt significanc e Persistent fever - resolved Leukocytosis, bandemia - resolved diarrhea - C.diff negative Recent clx with GNB, MRSA ? colonisation fu off abx for now - fu clinically -chk CXR - will not rec'd to Rx Elle Stallings MD Jul 19, 2016 15:24
--- NOTE | 2016-07-19 16:25 | RADRPT ---
EXAM DATE/TIME: 07/19/2016 15:40 [facility] COMPARISON: CHEST SINGLE AP, June 27, 2016, 9:03. INDICATIONS : Shortness of breath. MEDICAL HISTORY : Dementia. Alzheimer's. hypertension. SURGICAL HISTORY : Peg tube. ENCOUNTER: Subsequent ACUITY: 1 month PAIN SCORE: Non-responsive. LOCATION: Bilateral chest FINDINGS: Trach tube is in good position. Minimal bibasilar parenchymal changes are noted. Heart and pulmonary vascularity are normal. Portions of the bony skeleton visualized are unremarkable. CONCLUSION: Slight increase in minimal bibasilar parenchymal changes when compared to 06/27/16. Stanley Parker MD FACR on July 19, 2016 at 16:18 Board Certified Radiologist. This report was verified electronically.
--- NOTE | 2016-07-19 19:33 | HHI.PR ---
Subjective Remarks 80 YO male with Dementia, RF,Trach Pt aphasic Tolerates TF On Trach collar No fever Objective Vital Signs Vital Signs Date Time Temp Pulse Resp B/P Pulse Ox O2 Delivery O2 Flow Rate FiO2 07/19/16 16:00 97.6 95 22 141/70 99 07/19/16 12:00 98.7 93 23 119/71 98 07/19/16 09:10 Blow By 28 T-Piece 07/19/16 08:52 97 T-piece 6.00 28 07/19/16 08:14 98.1 101 23 152/90 98 07/19/16 05:01 96.8 84 20 118/60 97 07/19/16 00:11 96.6 83 20 112/62 97 07/18/16 20:00 96.3 87 22 121/69 98 07/18/16 19:45 97 T-Piece 5.00 28 I/O 07/18/16 07/18/16 07/18/16 07/19/16 07/19/16 07/19/16 07:00 15:00 23:00 07:00 15:00 23:00 Output Total 400 ml 300 ml Balance -400 ml -300 ml Output Urine Total 400 ml 300 ml # Bowel Movements 2 1 Objective Remarks GENERAL: Elderly frail male, mild sob SKIN: Warm and dry. HEAD: Normocephalic. EYES: No scleral icterus. No injection or drainage. NECK: Supple, trachea midline. No JVD or lymphadenopathy. CARDIOVASCULAR: Regular rate and rhythm without murmurs, gallops, or rubs. RESPIRATORY: Breath sounds equal bilaterally. No accessory muscle use. GASTROINTESTINAL: Abdomen soft, non-tender, nondistended. MUSCULOSKELETAL: No cyanosis, or edema. BACK: Nontender without obvious deformity. No CVA tenderness. A/P Assessment and Plan RF,s/p Trach Aphasia Dysphagia Dementia PLAN: Aerosol nebs Tracheal suction Levsin qid Stable on Trach collar Tube feeding 40 cc/hr CBC.BMP in AM Silverio Reyes MD Jul 19, 2016 19:33
[2016-07-19 21:54] LABS: AUTOMATED NEUTROPHIL # 4.9 TH/MM3 (1.8-7.7); BASOPHIL # 0.1 TH/MM3 (0-0.2); BASOPHIL % 0.8 % (0.0-2.0); EOSINOPHIL # 0.7 TH/MM3 (0-0.4); EOSINOPHIL % 7.2 % (0.0-4.0); HEMATOCRIT 34.4 % (39.0-51.0); HEMO FLAGS DIFF FINAL; LYMPH % 27.7 % (9.0-44.0); LYMPHOCYTE # 2.6 TH/MM3 (1.0-4.8); MEAN CELL VOLUME 84.9 FL (80.0-100.0); MEAN CORPUSCULAR HEMOGLOBIN 28.5 PG (27.0-34.0); MEAN CORPUSCULAR HGB CONC 33.5 % (32.0-36.0); MONO % 13.3 % (0.0-8.0); PLATELET COUNT 259 TH/MM3 (150-450); RED BLOOD COUNT 4.05 MIL/MM3 (4.50-5.90); RED CELL DISTRIBUTION WIDTH 18.4 % (11.6-17.2); WHITE BLOOD COUNT 9.6 TH/MM3 (4.0-11.0)
[2016-07-19 22:56] LABS: BICARBONATE 28.8 MEQ/L (21.0-32.0); POTASSIUM 4.2 MEQ/L (3.5-5.1)
[2016-07-20] VITALS (8 sets, daily range): BP systolic 111–142; BP diastolic 56–82; PULSE 72–105; RESP 18–20; TEMP 95.6–99.4; O2SAT 92–100
[2016-07-20] MEDS: CHLORHEXIDINE GLUCONATE 2 % 1 PACK (2 CLOTHS) TOP SCH (04:00)
[2016-07-20] MEDS: FREE WATER G-TUBE SCH ×3 (05:15→18:22)
[2016-07-20] MEDS: HEPARIN SODIUM - SQ 10,000 UNITS/ML VIAL SQ SCH ×3 (05:17→22:21)
[2016-07-20] MEDS: LOW DOSE INSULIN NOVOLOG SUPPLEMENTAL SCALE SQ SCH ×3 (05:17→18:22)
[2016-07-20] MEDS: SODIUM CHLORIDE 0.9% FLUSH 5 ML FLUSH IV FLUSH SCH ×2 (09:00→21:00)
[2016-07-20] MEDS: POVIDONE IODINE 10% SOLN 480 ML BTL TOPICAL SCH ×2 (09:10→21:00)
[2016-07-20] MEDS: MODAFINIL 200 MG TAB PO SCH (09:10)
[2016-07-20] MEDS: FAMOTIDINE 20 MG TAB NG SCH ×2 (09:10→22:21)
--- NOTE | 2016-07-20 10:11 | HHI.PR ---
Subjective Remarks Follow-up respiratory failure, positive sputum culture. Patient remains non- responsive, nonverbal. No events reported by nursing. Objective Vitals Vital Signs Date Time Temp Pulse Resp B/P Pulse Ox O2 Delivery O2 Flow Rate FiO2 07/20/16 09:09 99.4 105 20 136/82 100 07/20/16 04:00 97.5 72 20 125/72 99 07/20/16 00:00 98.0 86 18 113/67 97 07/19/16 20:00 98.3 98 18 95/66 95 07/19/16 16:00 97.6 95 22 141/70 99 07/19/16 12:00 98.7 93 23 119/71 98 I/O 07/19/16 07/19/16 07/19/16 07/20/16 07/20/16 07/20/16 07:00 15:00 23:00 07:00 15:00 23:00 Output Total 400 ml 300 ml Balance -400 ml -300 ml Output Urine Total 400 ml 300 ml # Voids 4 # Bowel Movements 2 1 4 Result Diagram: 07/19/16212407/19/162124 Imaging Last Impressions Chest X-Ray 07/19/16 0000 Signed Impressions: Service Date/Time: Tuesday, July 19, 2016 15:40 - CONCLUSION: Slight increase in minimal bibasilar parenchymal changes when compared to 06/27/16. Stanley Parker MD FACR Abdomen/Pelvis CT 06/19/16 0000 Signed Impressions: Service Date/Time: Monday, June 20, 2016 02:30 - CONCLUSION: 1. Moderate stool throughout the colon. No obstruction or inflammatory changes. No small bowel distention. 2. Subacute appearing left hip fracture. 3. PEG tube without evidence of an acute complication. Gary Griffin MD Abdomen X-Ray 06/17/16 0000 Signed Impressions: Service Date/Time: Friday, June 17, 2016 11:51 - CONCLUSION: No abnormal dilatation of the large or small bowel to indicate an ileus. There is a gastrostomy tube in the stomach which appears to be somewhat distended with air. José Miguel Celis MD Objective Remarks General: Elderly male in no acute distress. HEENT: Trach. Heart: Regular rate and rhythm. No murmur. Lungs: Coarse breath sounds bilaterally. Breathing is nonlabored. Abdomen: Soft, nontender, nondistended. Extremities: No lower extremity edema. Psych: Does not respond to verbal stimuli. Does not track or follow commands. Urinary Catheter: Yes Assessment to: Continue Mckeon insert reason: Obstruction/Retention Date of Insertion: Jul 05, 2016 Vascular Central Line Catheter: No A/P Problem List: (1) UTI (urinary tract infection) ICD Code: N39.0 Status: Acute (2) Alzheimer's dementia ICD Code: F02.80 Status: Chronic (3) Malnourished ICD Code: E46 Status: Acute (4) Acute respiratory failure with hypoxia and hypercarbia ICD Code: J96.01 Status: Acute (5) Hypertension ICD Code: I10 Status: Chronic (6) GERD (gastroesophageal reflux disease) ICD Code: K21.9 Status: Chronic (7) Diarrhea ICD Code: R19.7 Status: Acute (8) Fever ICD Code: R50.9 Status: Acute Assessment and Plan Reviewed/updated 07/20/16. Sputum cultures remain positive for MRSA. Likely colonization rather than an active infection per ID. No antibiotics at this time. 1. Alzheimer's dementia: Patient also with delirium, depression, anxiety. Continue Provigil. 2. Acute hypoxic and hypercarbic respiratory failure: Appreciate pulmonology recommendations. Continue bronchodilators as needed. On T piece. Levsin for secretions. Sputum culture growing Klebsiella pneumoniae and MRSA. Droplet/ contact isolation. Appreciate ID recommendations regarding antibiotics. 3. Hypertension: Reasonably well controlled. 4. Anorexia, failure to thrive, moderate protein calorie malnutrition: Continue tube feeds with Glucerna. 5. GERD: Continue Pepcid. 6. Diarrhea: Likely secondary to laxatives. 7. UTI: Repeat UA is abnormal. Urine culture is growing Prachi. Continue Diflucan. 8. Hyperglycemia of critical illness: Monitor Accu-Cheks and cover with sliding scale insulin. 9. DVT prophylaxis: Heparin. 10. Bacteremia: Continue antibiotics. Appreciate infectious disease recommendations. Blood culture positive for staph epidermidis, probable contaminant. Discharge Planning Awaiting placement. Case management assisting with discharge planning. SNF is requiring 3 negative sputum cultures. Zac Dolan MD Jul 20, 2016 10:11
--- NOTE | 2016-07-20 18:31 | HHI.PR ---
Subjective Remarks 80 YO male with Dementia, RF,Trach Pt aphasic Tolerates TF On Trach collar No fever No new complaint Objective Vital Signs Vital Signs Date Time Temp Pulse Resp B/P Pulse Ox O2 Delivery O2 Flow Rate FiO2 07/20/16 17:10 97.6 95 20 142/69 100 07/20/16 12:51 99.4 103 20 136/80 96 07/20/16 10:12 98 T-piece 6.00 28 07/20/16 09:20 98 Blow By 28 T-Piece 07/20/16 09:09 99.4 105 20 136/82 100 07/20/16 04:00 97.5 72 20 125/72 99 07/20/16 00:00 98.0 86 18 113/67 97 07/19/16 20:00 98.3 98 18 95/66 95 I/O 07/19/16 07/19/16 07/19/16 07/20/16 07/20/16 07/20/16 07:00 15:00 23:00 07:00 15:00 23:00 Output Total 400 ml 300 ml 250 ml Balance -400 ml -300 ml -250 ml Output Urine Total 400 ml 300 ml 250 ml # Voids 4 # Bowel Movements 2 1 4 Result Diagram: 07/19/16212407/19/162124 Objective Remarks GENERAL: Elderly frail male, mild sob SKIN: Warm and dry. HEAD: Normocephalic. EYES: No scleral icterus. No injection or drainage. NECK: Supple, trachea midline. No JVD or lymphadenopathy. CARDIOVASCULAR: Regular rate and rhythm without murmurs, gallops, or rubs. RESPIRATORY: Breath sounds equal bilaterally. No accessory muscle use. GASTROINTESTINAL: Abdomen soft, non-tender, nondistended. MUSCULOSKELETAL: No cyanosis, or edema. BACK: Nontender without obvious deformity. No CVA tenderness. A/P Assessment and Plan RF,s/p Trach Aphasia Dysphagia Dementia PLAN: Aerosol nebs Tracheal suction Levsin qid Stable on Trach collar Tube feeding 40 cc/hr Silverio Reyes MD Jul 20, 2016 18:30
[2016-07-21] VITALS (14 sets, daily range): BP systolic 85–187; BP diastolic 54–82; PULSE 90–138; RESP 22–34; TEMP 95.7–102.4; O2SAT 96–100
[2016-07-21] MEDS: CHLORHEXIDINE GLUCONATE 2 % 1 PACK (2 CLOTHS) TOP SCH (04:00)
[2016-07-21] MEDS: FREE WATER G-TUBE SCH ×5 (06:00→23:37)
[2016-07-21] MEDS: LOW DOSE INSULIN NOVOLOG SUPPLEMENTAL SCALE SQ SCH ×2 (06:00)
[2016-07-21] MEDS: HEPARIN SODIUM - SQ 10,000 UNITS/ML VIAL SQ SCH ×3 (06:03→22:20)
[2016-07-21] MEDS: RESP: ALBUTEROL 2.5 MG/IPRATROPIUM 0.5 MG NEB (PRN) INH ×2 (07:53→11:02)
[2016-07-21] MEDS: POVIDONE IODINE 10% SOLN 480 ML BTL TOPICAL SCH ×2 (09:00→21:00)
[2016-07-21] MEDS: MODAFINIL 200 MG TAB PO SCH (10:32)
[2016-07-21] MEDS: FAMOTIDINE 20 MG TAB NG SCH ×2 (10:32→22:20)
[2016-07-21] MEDS: SODIUM CHLORIDE 0.9% FLUSH 5 ML FLUSH IV FLUSH SCH ×2 (10:33→21:00)
--- NOTE | 2016-07-21 12:24 | RADRPT ---
EXAM DATE/TIME: 07/21/2016 12:05 [facility] COMPARISON: CHEST SINGLE AP, July 19, 2016, 15:40. INDICATIONS : Shortness of breath. MEDICAL HISTORY : None. SURGICAL HISTORY : PEG tube. Tracheotomoy. ENCOUNTER: Initial ACUITY: 1 day PAIN SCORE: Non-responsive. LOCATION: Bilateral chest FINDINGS: A single view of the chest demonstrates the lungs to be symmetrically aerated without evidence of mas s, infiltrate or effusion. Trach tube is in good position. The cardiomediastinal contours are unrem arkable. Osseous structures are intact. CONCLUSION: Negative for an acute process. Stanley Parker MD FACR on July 21, 2016 at 12:22 Board Certified Radiologist. This report was verified electronically.
--- NOTE | 2016-07-21 12:29 | HHI.PR ---
Subjective Remarks [facility] called due to tachypnea, fever, increased secretions. Patient remains nonresponsive, nonverbal. Objective Vitals Vital Signs Date Time Temp Pulse Resp B/P Pulse Ox O2 Delivery O2 Flow Rate FiO2 07/21/16 10:06 96 T-piece 28 07/21/16 08:24 95.7 133 187/69 100 07/21/16 07:10 T-Piece 6.00 28 07/21/16 04:15 97 Trach Collar T-Piece 07/21/16 04:00 99.2 126 22 148/71 97 07/21/16 00:22 97 T-piece 6.00 28 07/21/16 00:00 98.9 126 22 100/75 07/20/16 20:00 98.9 104 18 114/56 92 07/20/16 19:45 Trach Collar T-Piece 07/20/16 17:10 97.6 95 20 142/69 100 07/20/16 12:51 99.4 103 20 136/80 96 I/O 07/20/16 07/20/16 07/20/16 07/21/16 07/21/16 07/21/16 07:00 15:00 23:00 07:00 15:00 23:00 Output Total 250 ml 1000 ml Balance -250 ml -1000 ml Output Urine Total 250 ml 1000 ml # Voids 4 # Bowel Movements 4 2 1 Result Diagram: 07/19/16212407/19/162124 Imaging Last Impressions Chest X-Ray 07/19/16 0000 Signed Impressions: Service Date/Time: Tuesday, July 19, 2016 15:40 - CONCLUSION: Slight increase in minimal bibasilar parenchymal changes when compared to 06/27/16. Stanley Parker MD FACR Abdomen/Pelvis CT 06/19/16 0000 Signed Impressions: Service Date/Time: Monday, June 20, 2016 02:30 - CONCLUSION: 1. Moderate stool throughout the colon. No obstruction or inflammatory changes. No small bowel distention. 2. Subacute appearing left hip fracture. 3. PEG tube without evidence of an acute complication. Gary Griffin MD Abdomen X-Ray 06/17/16 0000 Signed Impressions: Service Date/Time: Friday, June 17, 2016 11:51 - CONCLUSION: No abnormal dilatation of the large or small bowel to indicate an ileus. There is a gastrostomy tube in the stomach which appears to be somewhat distended with air. José Miguel Celis MD Objective Remarks General: Elderly male in no acute distress. HEENT: Trach. Heart: Regular rate and rhythm. No murmur. Lungs: Coarse breath sounds bilaterally. Tachypnea. Abdomen: Soft, nontender, nondistended. Extremities: No lower extremity edema. Psych: Does not respond to verbal stimuli. Does not track or follow commands. Urinary Catheter: Yes Assessment to: Continue Mckeon insert reason: Obstruction/Retention Date of Insertion: Jul 05, 2016 Vascular Central Line Catheter: No A/P Problem List: (1) UTI (urinary tract infection) ICD Code: N39.0 Status: Acute (2) Alzheimer's dementia ICD Code: F02.80 Status: Chronic (3) Malnourished ICD Code: E46 Status: Acute (4) Acute respiratory failure with hypoxia and hypercarbia ICD Code: J96.01 Status: Acute (5) Hypertension ICD Code: I10 Status: Chronic (6) GERD (gastroesophageal reflux disease) ICD Code: K21.9 Status: Chronic (7) Diarrhea ICD Code: R19.7 Status: Acute (8) Fever ICD Code: R50.9 Status: Acute Assessment and Plan Reviewed/updated 07/21/16. Patient meeting criteria for sepsis with fever, tachycardia, tachypnea. We'll transfer to intensive care unit. Consult tractor trailer operator. Patient not currently on antibiotics per ID recommendations. Will start empiric antibiotics. Patient may have aspirated tube feeds. Discussed at length with Dr. Morataya, who has agreed to evaluate the patient. 1. Alzheimer's dementia: Patient also with delirium, depression, anxiety. Continue Provigil. 2. Acute hypoxic and hypercarbic respiratory failure: Appreciate pulmonology recommendations. Continue bronchodilators as needed. On T piece. Levsin for secretions. Sputum culture growing Klebsiella pneumoniae and MRSA. Droplet/ contact isolation. Appreciate ID recommendations regarding antibiotics. 3. Hypertension: Reasonably well controlled. 4. Anorexia, failure to thrive, moderate protein calorie malnutrition: Continue tube feeds with Glucerna. 5. GERD: Continue Pepcid. 6. Diarrhea: Likely secondary to laxatives. 7. UTI: Repeat UA is abnormal. Urine culture is growing Prachi. Continue Diflucan. 8. Hyperglycemia of critical illness: Monitor Accu-Cheks and cover with sliding scale insulin. 9. DVT prophylaxis: Heparin. 10. Bacteremia: Continue antibiotics. Appreciate infectious disease recommendations. Blood culture positive for staph epidermidis, probable contaminant. Discharge Planning Awaiting placement. Case management assisting with discharge planning. SNF is requiring 3 negative sputum cultures. Zac Dolan MD Jul 21, 2016 12:29
[2016-07-21 12:30] LABS: BLOOD GAS BASE EXCESS -4.6 mmol/L (-2-2); BLOOD GAS CARBOXYHEMOGLOBIN 2.3 % (0-4); BLOOD GAS HCO3 19 mmol/L (22-26); BLOOD GAS METHEMOGLOBIN 1.1 % (0-2); BLOOD GAS O2 HGB SATURATION 93 % (90-100); BLOOD GAS OXYGEN CONTENT 15.9 Vol % (12.0-20.0); BLOOD GAS PCO2 30 mmHg (38-42); BLOOD GAS PO2 81 mmHg (61-120); BLOOD GAS TOTAL HGB 12.2 G/DL (12.0-16.0); CRITICAL VALUE NO; TEMP CORR TO 98.6
[2016-07-21 12:31] LABS: DRAW SITE RT RADIAL; FIO2 50 %; NUMBER OF ARTERIAL PUNCTURES 1; OXYGEN DEVICE 50 TTUBE; STAT YES; ULNAR PULSE PRESENT
[2016-07-21] MEDS ORDERED: VANCOMYCIN INJ 1,350 MG in SODIUM CHLORID 0.9% 500 ML INJ 500 ML IV ONE (12:45)
[2016-07-21] MEDS ORDERED: PROPOFOL 1000 MG/100 ML INJ 100 ML ONE (12:59)
[2016-07-21] MEDS ORDERED: POTASSIUM PHOSPHATE INJ 30 MMOL in SODIUM CHLOR 0.9% 250 ML INJ 250 ML IV PRN (13:00)
[2016-07-21] MEDS ORDERED: MAGNESIUM SULFATE INJ 2 GM in SODIUM CHLORIDE 0.9% INJ 96 ML IV PRN (13:00)
[2016-07-21] MEDS ORDERED: MAGNESIUM OXIDE 400 MG TAB PO PRN (13:00)
[2016-07-21] MEDS: CEFEPIME INJ 1,000 MG in SODIUM CHLORIDE 0.9% INJ 100 ML IV SCH ×2 (13:00→22:21)
[2016-07-21] MEDS ORDERED: POTASSIUM CHLOR 20 MEQ PREMIX 100 ML IV PRN ×2 (13:00)
[2016-07-21] MEDS ORDERED: POTASSIUM CL 40 MEQ/30 ML LIQ UDC PO/TUBE PRN ×2 (13:00)
[2016-07-21] MEDS ORDERED: POTASSIUM CHLOR 40 MEQ PREMIX 100 ML IV PRN ×2 (13:00)
[2016-07-21] MEDS ORDERED: MAGNESIUM SULFATE INJ 4 GM in SODIUM CHLORIDE 0.9% INJ 92 ML IV PRN (13:00)
[2016-07-21] MEDS ORDERED: SODIUM PHOSPHATE INJ 30 MMOL in SODIUM CHLOR 0.9% 250 ML INJ 240 ML IV PRN (13:00)
[2016-07-21] MEDS ORDERED: LACTATED RINGER'S 1000 ML INJ 1,000 ML IV ONE (13:00)
[2016-07-21] MEDS ORDERED: POTASSIUM PHOSPHATE MONOBASIC 500 MG TAB PO/TUBE PRN (13:00)
[2016-07-21] MEDS ORDERED: DEXTROSE 50% IN WATER 50 ML VIAL(D50) IV PUSH PRN (13:00)
--- NOTE | 2016-07-21 13:17 | HHI.CCPN ---
Subjective Remarks/Hospital Course 80 y/o NH patient with severe dehydration, UTI sepsis, respiratory failure admitted earlier. Nonverbal, minimally responsive. Cachectic, anasarca. 06/05 Patient is sedated with Diprivan and intubated. On Insulin drip. PEG tube was replaced by GI yesterday. 06/06: Remains sedated, orally intubated on mech ventilation. 06/07: Remains sedated, orally intubated on mechanical ventilation. Daily C Pap trials ongoing. 06/08: Sedated, arousable, orally intubated on mechanical ventilation. Failed C Pap trials with low tidal volumes and decreasing pressure support today. 06/09: Afebrile. Feeling CPAP trials again today due to low tidal volumes. Tolerating tube feeding and free water boluses. Positive BM. 06/10: Tmax 102. Currently 99.1. Currently a PSV trials. Extremely low tidal volumes however which requires extra pressure support. Eyes are open but does not follow commands. 06/11: no change. failed PSV trail for tachypnea. still altered, but this is baseline for him apparently. 06/12: no changes. slightly more awake, but not following commands, and still altered. discussed care with palliative who again talked with family, and they want aggressive measures. I think we will be forced to pursue tracheostomy, as I do not think it is safe to extubate this patient given mental status. 06/13: again failed SBT. RSBI 105 with persistent altered mental status. will pursue tracheostomy today. 06/14: trach yesterday. re-cultured yesterday per ID. will follow up cultures. need placement. 06/15: Tmax 99.8. Currently 99.7. Positive BM. Tolerating tube feeding. Opens eyes but does not follow commands. 06/16: MAXIMUM TEMPERATURE 100.7. Currently 98.8. Patient opens eyes but does not follow commands. 2 bowel movements yesterday. Tolerating tube feeding. 06/17: No change neurologically opens eyes- do not follow commands. Tolerating CPAP 04/24. No other acute events 06/18: Tolerated T piece up to 4 hours yesterday overnight was on Cipro 15 or 5. Intermittent episodes of nausea. KUB showed some gastric distention. I will consult GI. Patient came in with a Mckeon at the PEG site. This was reasonable placed and a standard PEG tube was placed by Dr. Henson on 06/04/1606/19: Tolerated T piece for several hours yesterday. Intermittent vomiting some abdominal distention. GI has started on Reglan for possible gastroparesis. Will check CT abd pelvis 06/20 Tolerating TP >[address] abdomen pelvis no obstruction, PEG tube in appropriate place. Subjective 07/21: reconsulted for new tachycardia, tachypnea, respiratory distress, fever. In Brief, 80yM with end-stage dementia and COPD who initially presented with altered mental status and sepsis. chronic and declining course without any improvements. family wants aggressive care despite poor overall prognosis. most recently, sputum grew out MRSA, but at the time clinically stable and ID home sales consultant considered this colonization. today with acute worsening tachypnea, tachycardia, fever. patient at baseline neurologic status per Dr. Dolan with whom I have discussed his care. unable to obtain additional history from patient. Objective Vital Signs Date Time Temp Pulse Resp B/P Pulse Ox O2 Delivery O2 Flow Rate FiO2 07/21/16 12:27 102.4 138 142/54 100 07/21/16 10:06 T-piece 28 07/21/16 07:10 6.00 07/21/16 04:00 22 Intake and Output 07/20/16 07/20/16 07/21/16 08:00 16:00 00:00 Output Total 250 ml Balance -250 ml Result Diagram: 07/19/16212407/19/162124 Other Results Laboratory Tests Test 07/21/16 12:20 Blood Gas Puncture Site RT RADIAL Blood Gas Patient Temperature 98.6 Blood Gas HCO3 19 mmol/L (22-26) Blood Gas Base Excess -4.6 mmol/L (-2-2) Blood Gas Oxygen Saturation 93 % (90-100) Arterial Blood pH 7.42 (7.380-7.420) Arterial Blood Partial 30 mmHg (38-42) Pressure CO2 Arterial Blood Partial 81 mmHg Pressure O2 (61-120) Arterial Blood Oxygen Content 15.9 Vol % (12.0-20.0) Arterial Blood 2.3 % (0-4) Carboxyhemoglobin Arterial Blood Methemoglobin 1.1 % (0-2) Blood Gas Hemoglobin 12.2 G/DL (12.0-16.0) Oxygen Delivery Device 50 TTUBE Blood Gas Inspired Oxygen 50 % Imaging Last Impressions Chest X-Ray 06/13/16 0000 Signed Impressions: Service Date/Time: Monday, June 13, 2016 15:09 - CONCLUSION: 1. No pneumothorax is visualized. Tracheostomy in appropriate position. 2. Small left basilar opacity likely representing pleural effusion with associated volume loss and/or consolidation. There is atelectasis versus consolidation at the right lung base. Gary Tracy MD Objective Remarks GENERAL: 80 yo male patient, critically ill, trach+ HEAD: Normocephalic. EYES: PERRL. No scleral icterus. No injection or drainage. NECK: Supple, trachea midline. No JVD. tracheostomy in place without bleeding. CARDIOVASCULAR: tachycardic rate, regular rhythm. no appreciable murmurs. sinus by tele. RESPIRATORY: significantly tachypneic and in distress. bilateral coarse breath sounds. significant accessory muscle use. GASTROINTESTINAL: Abdomen soft, non-tender, distended. PEG tube is in place above the umbilicus very little erythema. MUSCULOSKELETAL: With trace nonpitting peripheral upper and lower extremity edema. Extremities are warm. Neuro: RASS -4. does not follow commands. withdraws x 4. Date of Insertion: Jul 05, 2016 A/P Assessment and Plan Assessment: 80yM with advanced dementia and prolonged downtrending hospital course complicated by multiple episodes of sepsis and [id number] respiratory failure requiring tracheostomy. He presents now with fever, tachycardia, tachypnea, severe respiratory distress which appears to be new acute severe sepsis. We will repeat carroll cultures. all of his prior micro has been sensitive to vancomycin and cefepime, so we will start these as empiric therapy along with flagyl for empiric aspiration coverage. CXR from this morning without evidence of acute lobar pneumonia. could be early aspiration. low concern for intra-abdominal pathology, though we will send lipase, LFTs. f/ u lactate. 1L LR bolus now and restart LR maintenance fluids. not requiring vasopressor support for end-organ perfusion currently. f/u cbc, bmp stat. very critically ill. family wants aggressive care. very poor prognosis. Neuro/Psych: Alzheimer's dementia Hypoactive delirium Depression/anxiety Acetaminophen for fever. Monitor neuro status. Continue Provigil 200 mg daily in attempt increased alertness. Pulm: Acute on chronic hypoxic and hypercarbic respiratory failure Place back on ventilator. Vent bundle hob at 30 degrees does not meet SBT criteria today given acute instability. wean fio2 for goal spo2 > 90% s/p #8 [place] percutaneous trach 06/13. (Dr. Morataya/Dr. Dai) nebs q6h and q2h prn. CV: Hypertension Monitor HR and BP keep MAP>65mmHg RENAL/: BPH Monitor renal function, I/O's, electrolytes replacement per protocol. GI: Failure to thrive Gastroesophageal reflux disease Constipation Severe acute protein calorie malnutrition TF -Glucerna 1.5 with goal rate 50ml/hr via PEG tube-tolerating. On Pepcid.for GI prophylaxis Colace twice a day for bowel regimen Heme: Normocytic anemia Monitor CBC ID: E. [place] UTI MRSA in sputum Klebsiella in sputum severe sepsis Pertinent cultures 06/04 - urine - E. [place] 06/16 - sputum - Prachi Tropicalis 06/27 blood - Staph Epi (1/2 bottles) 06/28 urine - prachi glabrata 06/28 sputum - Klebsiella (intermediate to zosyn), MRSA 07/12 sputum - MRSA 07/18 sputum - MRSA, Klebsiella repeat u/a, blood cultures, sputum cultures. empiric vancomycin with pharmacy dosing, cefepime 1gm iv q8h, flagyl 500mg iv q6h. Endo: Hyperglycemia of critical illness On SSI, q6h, high scale. FEN Hypophosphatemia On free water 250 cc every 6 hours. replace electrolytes per protocol GI prophylaxis-Pepcid q12h. DVT prophylaxis-continue Heparin SQ twice a day This patient remains critically ill with one or more organ systems which are or may become a threat to life. I have spent in excess of 57 minutes discontinuously in the care and management of this patient. This time is exclusive of procedures, and includes, but is not limited to, evaluation of the patient, review of the medical record, discussions with family, consultants, nursing staff, or respiratory therapy, and documentation in the medical record. Kannan Morataya MD Jul 21, 2016 13:17
[2016-07-21] MEDS: metroNIDAZOLE 500 MG INJ 100 ML IV SCH ×2 (14:00→20:00)
[2016-07-21] MEDS: LACTATED RINGER'S 1000 ML INJ 1,000 ML IV SCH ×2 (14:00→23:37)
[2016-07-21] MEDS: PROPOFOL 1000 MG/100 ML INJ 100 ML IV SCH ×2 (14:00→18:25)
[2016-07-21 14:15] LABS: AUTOMATED NEUTROPHIL # 13.7 TH/MM3 (1.8-7.7); BASOPHIL # 0.1 TH/MM3 (0-0.2); BASOPHIL % 0.7 % (0.0-2.0); EOSINOPHIL # 0.1 TH/MM3 (0-0.4); EOSINOPHIL % 0.7 % (0.0-4.0); HEMATOCRIT 37.2 % (39.0-51.0); HEMO FLAGS DIFF FINAL; LYMPH % 8.2 % (9.0-44.0); LYMPHOCYTE # 1.4 TH/MM3 (1.0-4.8); MEAN CELL VOLUME 84.4 FL (80.0-100.0); MEAN CORPUSCULAR HEMOGLOBIN 28.1 PG (27.0-34.0); MEAN CORPUSCULAR HGB CONC 33.2 % (32.0-36.0); MONO % 7.4 % (0.0-8.0); PLATELET COUNT 295 TH/MM3 (150-450); RED BLOOD COUNT 4.41 MIL/MM3 (4.50-5.90); RED CELL DISTRIBUTION WIDTH 18.5 % (11.6-17.2); WHITE BLOOD COUNT 16.5 TH/MM3 (4.0-11.0)
[2016-07-21 14:33] LABS: BICARBONATE 19.7 MEQ/L (21.0-32.0)
[2016-07-21 14:34] LABS: POTASSIUM 4.1 MEQ/L (3.5-5.1)
[2016-07-21 14:38] LABS: INDIRECT BILIRUBIN 0.4 MG/DL (0.0-0.8); TOTAL BILIRUBIN ADULT 0.5 MG/DL (0.2-1.0)
--- NOTE | 2016-07-21 14:39 | HHI.HCPN ---
Reason for visit a. To assist with evaluation and management of symptoms including: debility and shortness of breath. b. To assist medical decision maker(s) with: better understanding of current medical conditions; weighing benefits/burdens of medical treatment options; making medical treatment decisions. . Subjective/Interval History Patient seen earlier this morning in his room/medical floor. No family at bedside. Pt Awake, opening eyes, not tracking. Not following any commands. Patient s/p trach on 06/13. Currently on T collar, 6L. Sputum cultures 07/18/16, and 06/28/16 positive for MRSA. ID following, likely colonized. Pulmonology continues to follow-up, chest X-ray 07/19/16 showing slight increase in bibasilar changes. Later during the morning, patient clinical status worsened. Patient transferred to ICU secondary to tachypnea, tachycardia and fever of 102.4. Patient was placed on vent support via trach. Guarded prognosis. . Family/friend interactions Telephone conversation with patient's son Winifred today prior to pt's worsening condition. We discussed SNF request of 3 negative sputum cultures prior to discharge. Son tells me that family would be open to placement at different facility if the process can be expedited. Called son Winifred after patient was transferred to ICU and placed on mechanical ventilation. Left message in VM. . Advance Directives Living Will: Never completed Health Care Surrogate: Never completed Durable Power of Spray Dry Operator: Never completed Advance Directive Specifics Health Care Surrogate(s): No HCS completed. As per [place] law, patient Kvng Amin is HCP. also elderly, relying on her sons Winifred and Milan to make healthcare decisions. Documented care wishes: No living will completed. . Significant change in goals: Remain unchanged. Aggressive care to include full code. . Objective Vital Signs Date Time Temp Pulse Resp B/P Pulse Ox O2 Delivery O2 Flow Rate FiO2 07/21/16 12:27 102.4 138 142/54 100 07/21/16 10:06 96 T-piece 28 07/21/16 10:00 Trach Collar 6.00 28 07/21/16 08:24 95.7 133 187/69 100 07/21/16 07:10 T-Piece 6.00 28 07/21/16 04:15 97 Trach Collar 28 T-Piece 07/21/16 04:00 99.2 126 22 148/71 97 07/21/16 00:22 97 T-piece 6.00 28 07/21/16 00:00 98.9 126 22 100/75 07/20/16 20:00 98.9 104 18 114/56 92 07/20/16 19:45 Trach Collar 28 T-Piece 07/20/16 17:10 97.6 95 20 142/69 100 Intake & Output 07/21/16 07/21/16 07:00 19:00 Output Total 1000 ml 450 ml Balance -1000 ml -450 ml Output Urine Total 1000 ml 450 ml # Bowel Movements 2 1 Physical Exam CONSTITUTIONAL/GENERAL: This is a frail, thin elderly man in no apparent distress. trach in place. TUBES/LINES/DRAINS: Trach, PEG, Mckeon cath. SCD's, PIV's. SKIN: No jaundice or rashes. Scattered ecchymoses on upper extremities. Skin temperature appropriate. Not diaphoretic. Suspected deep tissue ulcer to right inner heel. HEAD: Atraumatic. Normocephalic. Temporan wasting noted. EYES: Pupils equal and round and reactive. No injection or drainage. ENT: Unable to assess hearing. Nose without bleeding or purulent drainage. Unable to evaluate throat due to ETT. Small amounts of clear oral secretions. NECK: Trach in place. T-collar. CARDIOVASCULAR: Regular rate and rhythm without murmurs, gallops, or rubs. Weak pedal pulses bilat. RESPIRATORY/CHEST: Symmetric, unlabored respirations. clear, diminished. On trach collar. GASTROINTESTINAL: Abdomen firm, round, large. PEG tube in place. Bowel sounds present. TF on hold at this time. GENITOURINARY: Without palpable bladder distension. Mckeon catheter in place. MUSCULOSKELETAL: Edema to BUE. Bilateral knee contractures noted. Muscle wasting noted. NEUROLOGICAL: alert, eyes open. Not following any command. Non-verbal at baseline. PSYCHIATRIC: Unable to assess due to clinical condition. Appears calm. . Diagnostic Tests Laboratory Laboratory Tests Test 07/19/16 07/21/16 07/21/16 21:25 12:20 13:56 White Blood Count 9.6 TH/MM3 16.5 TH/MM3 (4.0-11.0) (4.0-11.0) Red Blood Count 4.05 MIL/MM3 4.41 MIL/MM3 (4.50-5.90) (4.50-5.90) Hemoglobin 11.5 GM/DL 12.4 GM/DL (13.0-17.0) (13.0-17.0) Hematocrit 34.4 % 37.2 % (39.0-51.0) (39.0-51.0) Mean Corpuscular Volume 84.9 FL 84.4 FL (80.0-100.0) (80.0-100.0) Mean Corpuscular Hemoglobin 28.5 PG 28.1 PG (27.0-34.0) (27.0-34.0) Mean Corpuscular Hemoglobin 33.5 % 33.2 % Concent (32.0-36.0) (32.0-36.0) Red Cell Distribution Width 18.4 % 18.5 % (11.6-17.2) (11.6-17.2) Platelet Count 259 TH/MM3 295 TH/MM3 (150-450) (150-450) Mean Platelet Volume 7.4 FL 7.6 FL (7.0-11.0) (7.0-11.0) Neutrophils (%) (Auto) 51.0 % 83.0 % (16.0-70.0) (16.0-70.0) Lymphocytes (%) (Auto) 27.7 % 8.2 % (9.0-44.0) (9.0-44.0) Monocytes (%) (Auto) 13.3 % 7.4 % (0.0-8.0) (0.0-8.0) Eosinophils (%) (Auto) 7.2 % (0.0-4.0) 0.7 % (0.0-4.0) Basophils (%) (Auto) 0.8 % (0.0-2.0) 0.7 % (0.0-2.0) Neutrophils # (Auto) 4.9 TH/MM3 13.7 TH/MM3 (1.8-7.7) (1.8-7.7) Lymphocytes # (Auto) 2.6 TH/MM3 1.4 TH/MM3 (1.0-4.8) (1.0-4.8) Monocytes # (Auto) 1.3 TH/MM3 1.2 TH/MM3 (0-0.9) (0-0.9) Eosinophils # (Auto) 0.7 TH/MM3 0.1 TH/MM3 (0-0.4) (0-0.4) Basophils # (Auto) 0.1 TH/MM3 0.1 TH/MM3 (0-0.2) (0-0.2) CBC Comment DIFF FINAL DIFF FINAL Differential Comment Sodium Level 136 MEQ/L (136-145) Potassium Level 4.2 MEQ/L (3.5-5.1) Chloride Level 100 MEQ/L (98-107) Carbon Dioxide Level 28.8 MEQ/L (21.0-32.0) Anion Gap 7 MEQ/L (5-15) Blood Urea Nitrogen 16 MG/DL (7-18) Creatinine 0.82 MG/DL (0.60-1.30) Estimat Glomerular Filtration 90 ML/MIN (>89) Rate Random Glucose 157 MG/DL (74-106) Calcium Level 9.0 MG/DL (8.5-10.1) Blood Gas Puncture Site RT RADIAL Blood Gas Patient Temperature 98.6 Blood Gas HCO3 19 mmol/L (22-26) Blood Gas Base Excess -4.6 mmol/L (-2-2) Blood Gas Oxygen Saturation 93 % (90-100) Arterial Blood pH 7.42 (7.380-7.420) Arterial Blood Partial 30 mmHg (38-42) Pressure CO2 Arterial Blood Partial 81 mmHg Pressure O2 (61-120) Arterial Blood Oxygen Content 15.9 Vol % (12.0-20.0) Arterial Blood 2.3 % (0-4) Carboxyhemoglobin Arterial Blood Methemoglobin 1.1 % (0-2) Blood Gas Hemoglobin 12.2 G/DL (12.0-16.0) Oxygen Delivery Device 50 TTUBE Blood Gas Inspired Oxygen 50 % Result Diagram: 07/21/16 1356 07/19/16 4240 Microbiology Microbiology Date/Time Procedure Status Source Growth 07/21/16 13:50 Aerobic Blood Culture Received Blood Peripheral Pending 07/21/16 13:50 Anaerobic Blood Culture Received Blood Peripheral Pending 07/21/16 13:56 Aerobic Blood Culture Received Blood Peripheral Pending 07/21/16 13:56 Anaerobic Blood Culture Received Blood Peripheral Pending Imaging Last 72 hours Impressions Chest X-Ray 07/21/16 0000 Signed Impressions: Service Date/Time: Thursday, July 21, 2016 12:05 - CONCLUSION: Negative for an acute process. Stanley Parker MD FACR Chest X-Ray 07/19/16 0000 Signed Impressions: Service Date/Time: Tuesday, July 19, 2016 15:40 - CONCLUSION: Slight increase in minimal bibasilar parenchymal changes when compared to 06/27/16. Stanley Parker MD FACR Procedures * 07/21/16 -Mech vent via trach * 06/13/16 -Trach placed. * 06/04/16 -Intubated. * 06/04/16 -PEG tube replaced. * 06/04/16 -Left subclavian central line placed. . Assessment and Plan Disease Oriented Problem List: (1) Acute respiratory failure (2) Alzheimer's dementia Symptom Scale: (1) Shortness of breath 0-10 Scale: Unable to quantify Comment: s/p trach. Now worsening. On mech ventilation. (2) Debility 0-10 Scale: Unable to quantify Comment: Progressive, secondary to severe dementia. Bedbound at baseline. (3) Pain 0-10 Scale: Unable to quantify Comment: history of chronic pain. Pertinent Non-Medical Issues Psychosocial: . Has 2 children. SNF resident. Spiritual: Not spiritual. Legal: No living will completed. Ethical issues impacting care: No living will completed. who is serving as HCP relies on sons for share decision-making. . Important Contacts Kvng Amin and son Winifred . . Prognosis Mr. Amin is an 80 y/o male with a medical history significant for severe Alzheimer's dementia, anxiety, BPH and HNT who is bedbound and non-verbal at baseline. Patient admitted on 06/04/16 secondary to septic shock and acute respiratory failure. Patient remains intubated on mechanical ventilation. Baseline with documented progressive physical and cognitive decline, now total care at SNF. PEG placed on November secondary to dysphagia and failure to thrive , patient continued declining post PEG placement. Patient is at high risk for further complication, continued decline, and given his poor functional status and health at baseline. His prognosis is poor for an improved quality of life or long-term survival. . Code Status: Full Code Plan * CODE STATUS: FULL CODE * MEDICAL DECISION-MAKING: Patient incapacitated secondary to severe dementia. No HCS completed. As per [place] law, patient's Kvng Amin is healthcare proxy. also elderly, relying on her sons Ragesh and Milan to make healthcare decisions. Recommend share decision-making with and sons. * GOALS OF CARE: 07/21/16- Goals remain unchanged. Family wishing for continuation of aggressive care to include full code/mech ventilation. * HOSPICE: Patient hospice appropriate; however, not in line with goals of care/ family's wishes. FAST 7e at baseline, PPS 30% -PEG feeding. * SYMPTOMS: ==Shortness of breath, s/p trach. worsening, now on mechanical ventilation. ==Debility: progressive secondary to severe dementia. Patient bedbound and total care at baseline. ==Pain, history of chronic pain. * Palliative care contact information provided to patient's family. * Palliative care to continue to f/u for further clarification of goals of treatment as clinical course evolves. . Time Spent Total Floor Time (mins): 33 (Total time to include review and summarization of available medical records, physical exam and telephone conversation with pt's son. ) >50% Counseling/Coord of Care: Yes Attestation To help prompt me to consider important information that might be impacting today's encounter and assessment, information from prior notes written by myself or my colleagues may have been "brought forward" into today's note. My signature on this note, however, is an attestation that I personally performed the exam, history, and/or decision-making noted today, and, unless otherwise indicated, the interactions with patient, family, and staff as well as the review of records all occurred today. I also attest that the listed assessment and stated plan reflect my best clinical judgment today based on the combination of historical information, prior notes, and today's exam/ interactions. When time spent is documented, it refers only to time spent today by the signer, or if indicated, combined time spent today by collaborating physician/nurse practitioner. Charlotte Hall Jul 21, 2016 14:39
[2016-07-21 15:58] LABS: BACTERIA, URINE RARE /hpf; BLOOD, URINE MOD (NEG); GLUCOSE,URINE NEG (NEG); HYALINE CAST, URINE 7 /lpf (RARE); KETONE, URINE TRACE mg/dL (NEG); MUCUS URINE FEW /lpf (OCC); NITRITE,URINE NEG (NEG); URINE COLOR YELLOW (YELLW/STRAW)
[2016-07-21 16:00] LABS: COMMENT (UR) CATH-CULTURE IND; CULTURE IF INDICATED CATH CULTURE IND
[2016-07-21] MEDS: RESP: ALBUTEROL 2.5 MG/IPRATROPIUM 0.5 MG NEB (SCH) INH ×2 (16:00→19:31)
[2016-07-21 16:03] LABS: LACTIC ACID GHOST NOT REPORTABLE
[2016-07-21] MEDS ORDERED: IOHEXOL 350 MG/ML 10 ML VIAL (for RAD DIAG) IV ONE (16:30)
--- NOTE | 2016-07-21 17:15 | RADRPT ---
EXAM DATE/TIME: 07/21/2016 16:26 [facility] COMPARISON: CT ABDOMEN & PELVIS W CONTRAST, November 28, 2014, 16:49. INDICATIONS : Sepsis. Respiratory failure. IV CONTRAST: 93 cc Omnipaque 350 (iohexol) IV ; Cumulative dose for multiple exams. ORAL CONTRAST: No oral contrast ingested. RADIATION DOSE: 14.81 CTDIvol (mGy) ; Combined studies - Thorax/Abdomen/Pelvis MEDICAL HISTORY : Alzheimer's Hypertension. MRSA SURGICAL HISTORY : None. ENCOUNTER: Subsequent ACUITY: 2 days PAIN SCALE: Non-responsive LOCATION: Abdomen/pelvis TECHNIQUE: Volumetric scanning of the abdomen and pelvis was performed. Using automated exposure control and adjustment of the mA and/or kV according to patient size, radiation dose was kept as low as reasonably achievable to obtain optimal diagnostic quality images. FINDINGS: Minimal bibasilar parenchymal changes are noted. The liver is free of focal defects. Spleen, pancreas, adrenals and kidneys are unremarkable. There is no ascites or adenopathy. The pelvic contents are unremarkable. CONCLUSION: 1. I do not see a source of infection. 2. There is mild induration in the root of the mesentery. This is nonspecific. Stanley Parker MD FACR on July 21, 2016 at 17:01 Board Certified Radiologist. This report was verified electronically.
--- NOTE | 2016-07-21 17:17 | RADRPT ---
EXAM DATE/TIME: 07/21/2016 16:26 [facility] COMPARISON: CT THORAX W CONTRAST, November 28, 2014, 16:49. INDICATIONS : Sepsis. Respiratory failure. IV CONTRAST: 93 cc Omnipaque 350 (iohexol) IV ; Cumulative dose for multiple exams. RADIATION DOSE: 18.41 CTDIvol (mGy) ; Combined studies - Thorax/Abdomen/Pelvis MEDICAL HISTORY : Alzheimer's Hypertension. MRSA SURGICAL HISTORY : None. ENCOUNTER: Subsequent ACUITY: 2 days PAIN SCALE: Non-responsive LOCATION: Chest TECHNIQUE: Volumetric scanning of the chest was performed. Using automated exposure control and adjustment of the mA and/or kV according to patient size, radiation dose was kept as low as reasonab ly achievable to obtain optimal diagnostic quality images. FINDINGS: Minimal bibasilar parenchymal changes are noted slightly worse on the right than the le ft. There is no axillary adenopathy. There is minimal nonspecific mediastinal adenopathy. Marked c oronary artery calcifications are noted. There is no pericardial effusion. CONCLUSION: 1. Minimal bibasilar parenchymal changes without consolidation. 2. There is no significant pleural effusion. Stanley Parker MD FACR on July 21, 2016 at 17:04 Board Certified Radiologist. This report was verified electronically.
--- NOTE | 2016-07-21 17:27 | HHI.PR ---
Subjective Remarks 80 YO male with Dementia, RF,Trach Pt aphasic Tolerates TF On Trach collar Had worsening of sob, fever tr back to [facility] Started Abx Objective Vital Signs Vital Signs Date Time Temp Pulse Resp B/P Pulse Ox O2 Delivery O2 Flow Rate FiO2 07/21/16 17:07 98 07/21/16 12:27 102.4 138 142/54 100 07/21/16 10:06 96 T-piece 28 07/21/16 10:00 Trach Collar 6.00 28 07/21/16 08:24 95.7 133 187/69 100 07/21/16 07:10 T-Piece 6.00 28 07/21/16 04:15 97 Trach Collar 28 T-Piece 07/21/16 04:00 99.2 126 22 148/71 97 07/21/16 00:22 97 T-piece 6.00 28 07/21/16 00:00 98.9 126 22 100/75 07/20/16 20:00 98.9 104 18 114/56 92 07/20/16 19:45 Trach Collar 28 T-Piece I/O 07/20/16 07/20/16 07/20/16 07/21/16 07/21/16 07/21/16 07:00 15:00 23:00 07:00 15:00 23:00 Output Total 250 ml 1000 ml 450 ml Balance -250 ml -1000 ml -450 ml Output Urine Total 250 ml 1000 ml 450 ml # Voids 4 # Bowel Movements 4 2 1 Result Diagram: 07/21/16 1356 07/21/16 1356 Objective Remarks GENERAL: Elderly frail male, mild sob SKIN: Warm and dry. HEAD: Normocephalic. EYES: No scleral icterus. No injection or drainage. NECK: Supple, trachea midline. No JVD or lymphadenopathy. CARDIOVASCULAR: Regular rate and rhythm without murmurs, gallops, or rubs. RESPIRATORY: Breath sounds equal bilaterally. No accessory muscle use. GASTROINTESTINAL: Abdomen soft, non-tender, nondistended. MUSCULOSKELETAL: No cyanosis, or edema. BACK: Nontender without obvious deformity. No CVA tenderness. A/P Assessment and Plan RF,s/p Trach Aphasia Dysphagia Dementia PLAN: Aerosol nebs Tracheal suction Levsin qid Stable on Trach collar Tube feeding 40 cc/hr Cont Abx Check cultures Silverio Reyes MD Jul 21, 2016 17:27
[2016-07-21] MEDS ORDERED: fentaNYL CITRATE 250 MCG/5 ML AMP IV ONE (17:45)
[2016-07-21] MEDS: INSULIN NovoLIN REGULAR SUPPLEMENTAL SCALE SQ SCH ×2 (18:25→23:37)
[2016-07-21] MEDS: CHLORHEXIDINE 0.12% (ORAL KIT) 15 ML CUP MT SCH (20:00)
[2016-07-22] VITALS (23 sets, daily range): BP systolic 89–133; BP diastolic 45–84; PULSE 80–110; RESP 11–30; TEMP 98.5–99.5; O2SAT 84–100
[2016-07-22] MEDS: metroNIDAZOLE 500 MG INJ 100 ML IV SCH ×4 (02:53→20:04)
[2016-07-22] MEDS: CHLORHEXIDINE GLUCONATE 2 % 1 PACK (2 CLOTHS) TOP SCH (02:53)
[2016-07-22] MEDS: RESP: ALBUTEROL 2.5 MG/IPRATROPIUM 0.5 MG NEB (SCH) INH ×3 (03:27→20:52)
[2016-07-22] MEDS: LACTATED RINGER'S 1000 ML INJ 1,000 ML IV SCH ×2 (04:43→17:45)
[2016-07-22 04:44] LABS: MEAN CORPUSCULAR HEMOGLOBIN 27.8 PG (27.0-34.0); MEAN CORPUSCULAR HGB CONC 33.1 % (32.0-36.0); PLATELET COUNT 202 TH/MM3 (150-450); RED BLOOD COUNT 3.33 MIL/MM3 (4.50-5.90); RED CELL DISTRIBUTION WIDTH 17.9 % (11.6-17.2); REVIEW FLAG FINAL; WHITE BLOOD COUNT 10.3 TH/MM3 (4.0-11.0)
[2016-07-22 04:55] LABS: BICARBONATE 27.6 MEQ/L (21.0-32.0)
[2016-07-22] MEDS: CEFEPIME INJ 1,000 MG in SODIUM CHLORIDE 0.9% INJ 100 ML IV SCH ×3 (05:00→20:04)
[2016-07-22] MEDS: FREE WATER G-TUBE SCH ×4 (06:00→23:44)
[2016-07-22] MEDS: HEPARIN SODIUM - SQ 10,000 UNITS/ML VIAL SQ SCH ×3 (06:00→21:03)
[2016-07-22] MEDS: INSULIN NovoLIN REGULAR SUPPLEMENTAL SCALE SQ SCH ×4 (06:00→23:48)
[2016-07-22] MEDS ORDERED: fentaNYL DRIP 250 ML IV SCH (07:15)
--- NOTE | 2016-07-22 07:22 | HHI.CCPN ---
Subjective Remarks/Hospital Course 80 y/o NH patient with severe dehydration, UTI sepsis, respiratory failure admitted earlier. Nonverbal, minimally responsive. Cachectic, anasarca. 06/05 Patient is sedated with Diprivan and intubated. On Insulin drip. PEG tube was replaced by GI yesterday. 06/06: Remains sedated, orally intubated on mech ventilation. 06/07: Remains sedated, orally intubated on mechanical ventilation. Daily C Pap trials ongoing. 06/08: Sedated, arousable, orally intubated on mechanical ventilation. Failed C Pap trials with low tidal volumes and decreasing pressure support today. 06/09: Afebrile. Feeling CPAP trials again today due to low tidal volumes. Tolerating tube feeding and free water boluses. Positive BM. 06/10: Tmax 102. Currently 99.1. Currently a PSV trials. Extremely low tidal volumes however which requires extra pressure support. Eyes are open but does not follow commands. 06/11: no change. failed PSV trail for tachypnea. still altered, but this is baseline for him apparently. 06/12: no changes. slightly more awake, but not following commands, and still altered. discussed care with palliative who again talked with family, and they want aggressive measures. I think we will be forced to pursue tracheostomy, as I do not think it is safe to extubate this patient given mental status. 06/13: again failed SBT. RSBI 105 with persistent altered mental status. will pursue tracheostomy today. 06/14: trach yesterday. re-cultured yesterday per ID. will follow up cultures. need placement. 06/15: Tmax 99.8. Currently 99.7. Positive BM. Tolerating tube feeding. Opens eyes but does not follow commands. 06/16: MAXIMUM TEMPERATURE 100.7. Currently 98.8. Patient opens eyes but does not follow commands. 2 bowel movements yesterday. Tolerating tube feeding. 06/17: No change neurologically opens eyes- do not follow commands. Tolerating CPAP 04/24. No other acute events 06/18: Tolerated T piece up to 4 hours yesterday overnight was on Cipro 15 or 5. Intermittent episodes of nausea. KUB showed some gastric distention. I will consult GI. Patient came in with a Mckeon at the PEG site. This was reasonable placed and a standard PEG tube was placed by Dr. Henson on 06/04/1606/19: Tolerated T piece for several hours yesterday. Intermittent vomiting some abdominal distention. GI has started on Reglan for possible gastroparesis. Will check CT abd pelvis 06/20 Tolerating TP >[address] abdomen pelvis no obstruction, PEG tube in appropriate place. Subjective 07/21: reconsulted for new tachycardia, tachypnea, respiratory distress, fever. In Brief, 80yM with end-stage dementia and COPD who initially presented with altered mental status and sepsis. chronic and declining course without any improvements. family wants aggressive care despite poor overall prognosis. most recently, sputum grew out MRSA, but at the time clinically stable and ID production support consultant considered this colonization. today with acute worsening tachypnea, tachycardia, fever. patient at baseline neurologic status per Dr. Dolan with whom I have discussed his care. unable to obtain additional history from patient. 07/22: lactate clearing overnight. wbc downtrending. mental status remains poor, but this is baseline for patient. still on mechanical ventilation. cultures pending. ct chest/abd/pelvis without over evidence of infectious process. Objective Vital Signs Date Time Temp Pulse Resp B/P Pulse Ox O2 Delivery O2 Flow Rate FiO2 07/22/16 04:00 98.5 91 14 89/52 100 07/22/16 04:00 50 07/21/16 19:15 Mechanical Ventilator 07/21/16 10:00 6.00 Intake and Output 07/21/16 07/21/16 07/22/16 08:00 16:00 00:00 Intake Total 1521 ml 2060 ml Output Total 1000 ml 500 ml 500 ml Balance -1000 ml 1021 ml 1560 ml Result Diagram: 07/22/16 0414 07/22/16 0414 Other Results Laboratory Tests Test 07/21/16 12:20 Blood Gas Puncture Site RT RADIAL Blood Gas Patient Temperature 98.6 Blood Gas HCO3 19 mmol/L (22-26) Blood Gas Base Excess -4.6 mmol/L (-2-2) Blood Gas Oxygen Saturation 93 % (90-100) Arterial Blood pH 7.42 (7.380-7.420) Arterial Blood Partial 30 mmHg (38-42) Pressure CO2 Arterial Blood Partial 81 mmHg Pressure O2 (61-120) Arterial Blood Oxygen Content 15.9 Vol % (12.0-20.0) Arterial Blood 2.3 % (0-4) Carboxyhemoglobin Arterial Blood Methemoglobin 1.1 % (0-2) Blood Gas Hemoglobin 12.2 G/DL (12.0-16.0) Oxygen Delivery Device 50 TTUBE Blood Gas Inspired Oxygen 50 % Imaging Last Impressions Chest X-Ray 06/13/16 0000 Signed Impressions: Service Date/Time: Monday, June 13, 2016 15:09 - CONCLUSION: 1. No pneumothorax is visualized. Tracheostomy in appropriate position. 2. Small left basilar opacity likely representing pleural effusion with associated volume loss and/or consolidation. There is atelectasis versus consolidation at the right lung base. Gary Tracy MD Objective Remarks GENERAL: 80 yo male patient, critically ill, trach+ HEAD: Normocephalic. EYES: PERRL. No scleral icterus. No injection or drainage. NECK: Supple, trachea midline. No JVD. tracheostomy in place without bleeding. CARDIOVASCULAR: normal rate, regular rhythm. no appreciable murmurs. sinus by tele. RESPIRATORY: on vent this morning, prvc 14/550/1:1/peep 5/50%. less tachypneic. GASTROINTESTINAL: Abdomen soft, non-tender, distended. PEG tube is in place above the umbilicus very little erythema. MUSCULOSKELETAL: contracted. With trace nonpitting peripheral upper and lower extremity edema. Extremities are warm. Neuro: RASS -4. does not follow commands. extends LUE, withdraws x 3. Date of Insertion: Jul 05, 2016 A/P Problem List: (1) Severe sepsis with acute organ dysfunction ICD Code: A41.9 Status: Acute (2) Acute respiratory failure ICD Code: J96.00 Status: Acute (3) UTI (urinary tract infection) ICD Code: N39.0 Status: Acute (4) Alzheimer's dementia ICD Code: F02.80 Status: Chronic (5) Fever ICD Code: R50.9 Status: Acute (6) Global aphasia ICD Code: R47.02 Status: Acute Assessment and Plan Assessment: 80yM with advanced dementia and prolonged downtrending hospital course complicated by multiple episodes of sepsis and [id number] respiratory failure requiring tracheostomy. He represented to the ICU with severe sepsis. CT chest/abd/pelvis without overt source, but clinically improving on broad spectrum antibiotics. will await culture data. from a pulmonary standpoint, we have taken a large step back and he remains on full support mechanical ventilation. we will start to wean him if possible, but his chronic deconditioning will undoubtedly make this difficult. he remains critically ill and at this point without full support would likely . Neuro/Psych: Alzheimer's dementia Hypoactive delirium Depression/anxiety Acetaminophen for fever. Monitor neuro status. Continue Provigil 200 mg daily in attempt increased alertness. d/c propofol. start fentanyl for sedation and vent synchrony. Pulm: Acute on chronic hypoxic and hypercarbic respiratory failure continue mechanical ventilation Vent bundle hob at 30 degrees will attempt SBT today. wean fio2 for goal spo2 > 90% s/p #8 [facility] percutaneous trach 06/13. (Dr. Morataya/Dr. Dai) nebs q6h and q2h prn. CV: Hypertension Monitor HR and BP keep MAP>65mmHg decrease mivf from 150cc/hr to 50cc/hr. RENAL/: BPH Monitor renal function, I/O's, electrolytes replacement per protocol. GI: Failure to thrive Gastroesophageal reflux disease Constipation Severe acute protein calorie malnutrition TF -Glucerna 1.5 with goal rate 50ml/hr via PEG tube-tolerating. On Pepcid.for GI prophylaxis Colace twice a day for bowel regimen Heme: Normocytic anemia Monitor CBC ID: E. Cloacae UTI MRSA in sputum Klebsiella in sputum severe sepsis- resolving. Pertinent cultures 06/04 - urine - E. Cloacae 06/16 - sputum - Prachi Tropicalis 06/27 blood - Staph Epi (1/2 bottles) 06/28 urine - prachi glabrata 06/28 sputum - Klebsiella (intermediate to zosyn), MRSA 07/12 sputum - MRSA 07/18 sputum - MRSA, Klebsiella 07/21 sputum - pending 07/21 blood - pending 07/21 urine - pending empiric vancomycin with pharmacy dosing, cefepime 1gm iv q8h, flagyl 500mg iv q6h. Endo: Hyperglycemia of critical illness On SSI, q6h, high scale. FEN Hypophosphatemia On free water 250 cc every 6 hours. replace electrolytes per protocol GI prophylaxis-Pepcid q12h. DVT prophylaxis-continue Heparin SQ twice a day This patient remains critically ill with one or more organ systems which are or may become a threat to life. I have spent in excess of 31 minutes discontinuously in the care and management of this patient. This time is exclusive of procedures, and includes, but is not limited to, evaluation of the patient, review of the medical record, discussions with family, consultants, nursing staff, or respiratory therapy, and documentation in the medical record. Kannan Morataya MD Jul 22, 2016 07:22
[2016-07-22] MEDS: POVIDONE IODINE 10% SOLN 480 ML BTL TOPICAL SCH ×2 (09:00→20:07)
[2016-07-22] MEDS: FAMOTIDINE 20 MG TAB NG SCH ×2 (09:16→20:06)
[2016-07-22] MEDS: MODAFINIL 200 MG TAB PO SCH (09:16)
[2016-07-22] MEDS: CHLORHEXIDINE 0.12% (ORAL KIT) 15 ML CUP MT SCH ×2 (09:17→20:06)
[2016-07-22] MEDS: SODIUM CHLORIDE 0.9% FLUSH 5 ML FLUSH IV FLUSH SCH ×2 (09:17→20:06)
[2016-07-23] VITALS (31 sets, daily range): BP systolic 98–140; BP diastolic 43–77; PULSE 84–130; RESP 13–34; TEMP 99–100.6; O2SAT 94–100
[2016-07-23] MEDS: metroNIDAZOLE 500 MG INJ 100 ML IV SCH ×4 (02:11→20:07)
[2016-07-23] MEDS: CHLORHEXIDINE GLUCONATE 2 % 1 PACK (2 CLOTHS) TOP SCH (02:44)
[2016-07-23] MEDS: RESP: ALBUTEROL 2.5 MG/IPRATROPIUM 0.5 MG NEB (SCH) INH ×4 (03:45→20:47)
[2016-07-23] MEDS: CEFEPIME INJ 1,000 MG in SODIUM CHLORIDE 0.9% INJ 100 ML IV SCH ×3 (05:28→22:36)
[2016-07-23] MEDS: HEPARIN SODIUM - SQ 10,000 UNITS/ML VIAL SQ SCH (05:28)
[2016-07-23] MEDS: FREE WATER G-TUBE SCH ×3 (05:29→18:00)
[2016-07-23] MEDS: INSULIN NovoLIN REGULAR SUPPLEMENTAL SCALE SQ SCH ×3 (05:29→18:00)
[2016-07-23 06:25] LABS: HEMATOCRIT 28.2 % (39.0-51.0); MEAN CELL VOLUME 86.5 FL (80.0-100.0); MEAN CORPUSCULAR HEMOGLOBIN 27.1 PG (27.0-34.0); MEAN CORPUSCULAR HGB CONC 31.3 % (32.0-36.0); PLATELET COUNT 200 TH/MM3 (150-450); RED BLOOD COUNT 3.26 MIL/MM3 (4.50-5.90); RED CELL DISTRIBUTION WIDTH 17.7 % (11.6-17.2); REVIEW FLAG FINAL; WHITE BLOOD COUNT 7.3 TH/MM3 (4.0-11.0)
[2016-07-23 06:26] LABS: POTASSIUM 3.9 MEQ/L (3.5-5.1)
[2016-07-23 06:30] LABS: BICARBONATE 25.3 MEQ/L (21.0-32.0)
[2016-07-23] MEDS: CHLORHEXIDINE 0.12% (ORAL KIT) 15 ML CUP MT SCH ×2 (09:59→20:15)
[2016-07-23] MEDS: SODIUM CHLORIDE 0.9% FLUSH 5 ML FLUSH IV FLUSH SCH ×2 (09:59→22:36)
[2016-07-23] MEDS: FAMOTIDINE 20 MG TAB NG SCH ×2 (09:59→20:07)
[2016-07-23] MEDS: MODAFINIL 200 MG TAB PO SCH (10:00)
[2016-07-23] MEDS: POVIDONE IODINE 10% SOLN 480 ML BTL TOPICAL SCH ×2 (10:00→20:09)
--- NOTE | 2016-07-23 11:57 | HHI.CCPN ---
Subjective Remarks 80 y/o NH patient with severe dehydration, UTI sepsis, respiratory failure admitted earlier. Nonverbal, minimally responsive. Cachectic, anasarca. 06/05 Patient is sedated with Diprivan and intubated. On Insulin drip. PEG tube was replaced by GI yesterday. 06/06: Remains sedated, orally intubated on mech ventilation. 06/07: Remains sedated, orally intubated on mechanical ventilation. Daily C Pap trials ongoing. 06/08: Sedated, arousable, orally intubated on mechanical ventilation. Failed C Pap trials with low tidal volumes and decreasing pressure support today. 06/09: Afebrile. Feeling CPAP trials again today due to low tidal volumes. Tolerating tube feeding and free water boluses. Positive BM. 06/10: Tmax 102. Currently 99.1. Currently a PSV trials. Extremely low tidal volumes however which requires extra pressure support. Eyes are open but does not follow commands. 06/11: no change. failed PSV trail for tachypnea. still altered, but this is baseline for him apparently. 06/12: no changes. slightly more awake, but not following commands, and still altered. discussed care with palliative who again talked with family, and they want aggressive measures. I think we will be forced to pursue tracheostomy, as I do not think it is safe to extubate this patient given mental status. 06/13: again failed SBT. RSBI 105 with persistent altered mental status. will pursue tracheostomy today. 06/14: trach yesterday. re-cultured yesterday per ID. will follow up cultures. need placement. 06/15: Tmax 99.8. Currently 99.7. Positive BM. Tolerating tube feeding. Opens eyes but does not follow commands. 06/16: MAXIMUM TEMPERATURE 100.7. Currently 98.8. Patient opens eyes but does not follow commands. 2 bowel movements yesterday. Tolerating tube feeding. 06/17: No change neurologically opens eyes- do not follow commands. Tolerating CPAP 04/24. No other acute events 06/18: Tolerated T piece up to 4 hours yesterday overnight was on Cipro 15 or 5. Intermittent episodes of nausea. KUB showed some gastric distention. I will consult GI. Patient came in with a Mckeon at the PEG site. This was reasonable placed and a standard PEG tube was placed by Dr. Henson on 06/04/1606/19: Tolerated T piece for several hours yesterday. Intermittent vomiting some abdominal distention. GI has started on Reglan for possible gastroparesis. Will check CT abd pelvis 06/20 Tolerating TP >[address] Bre[address] abdomen pelvis no obstruction, PEG tube in appropriate place. Subjective 07/21: reconsulted for new tachycardia, tachypnea, respiratory distress, fever. In Brief, 80yM with end-stage dementia and COPD who initially presented with altered mental status and sepsis. chronic and declining course without any improvements. family wants aggressive care despite poor overall prognosis. most recently, sputum grew out MRSA, but at the time clinically stable and ID institutional nutrition consultant considered this colonization. today with acute worsening tachypnea, tachycardia, fever. patient at baseline neurologic status per Dr. Dolan with whom I have discussed his care. unable to obtain additional history from patient. 07/22: lactate clearing overnight. wbc downtrending. mental status remains poor, but this is baseline for patient. still on mechanical ventilation. cultures pending. ct chest/abd/pelvis without over evidence of infectious process. 07/23: Patient seen and examined today. No acute changes overnight. Patient still remains ventilator for respiratory support. Need to continue follow lactic acid level for lactic acidosis. Patient transferred to [facility] for continued management facilitated by Dr. Shirley Objective - Vital Signs Date Time Temp Pulse Resp B/P Pulse Ox O2 Delivery O2 Flow Rate FiO2 07/23/16 10:31 99 35 07/23/16 10:00 92 07/23/16 10:00 23 140/58 07/23/16 08:00 99.7 07/22/16 07:15 Mechanical Ventilator 07/21/16 10:00 6.00 Intake and Output 07/22/16 07/22/16 07/23/16 08:00 16:00 00:00 Intake Total 1650 ml 1474 ml 610 ml Output Total 1100 ml 250 ml 400 ml Balance 550 ml 1224 ml 210 ml Result Diagram: 07/23/16 0556 07/23/16 0556 Other Results Last Impressions Chest X-Ray 07/21/16 0000 Signed Impressions: Service Date/Time: Thursday, July 21, 2016 12:05 - CONCLUSION: Negative for an acute process. Stanley Parker MD FACR Chest CT 07/21/16 0000 Signed Impressions: Service Date/Time: Thursday, July 21, 2016 16:26 - CONCLUSION: 1. Minimal bibasilar parenchymal changes without consolidation. 2. There is no significant pleural effusion. Stanley Parker MD FACR Abdomen/Pelvis CT 07/21/16 0000 Signed Impressions: Service Date/Time: Thursday, July 21, 2016 16:26 - CONCLUSION: 1. I do not see a source of infection. 2. There is mild induration in the root of the mesentery. This is nonspecific. Stanley Parker MD FACR Abdomen X-Ray 06/17/16 0000 Signed Impressions: Service Date/Time: Friday, June 17, 2016 11:51 - CONCLUSION: No abnormal dilatation of the large or small bowel to indicate an ileus. There is a gastrostomy tube in the stomach which appears to be somewhat distended with air. José Miguel Celis MD Objective Remarks GENERAL: Well-developed, well-nourished, in no acute distress. He does arouse, does not follow commands. Withdrawals to painful stimuli HEENT: Head is normocephalic without any lesions or masses noted. Facial features are symmetric. Eyes: Pupils equal round reactive to light. Extraocular muscles are intact. Conjunctivae were clear. NECK: Supple without any masses. Trachea midline no deviation. No JVD, no bruits are appreciated. Tracheostomy site is clear without any signs of infection CARDIAC: Regular rhythm, regular rate. S1/S2 are heard. No murmurs gallops or rubs. LUNGS: Clear to auscultation bilaterally. No wheeze, rhonchi or rales. No use of accessory muscles on inspiration or expiration. ABDOMEN: Soft, nontender. Nondistended. Bowel sounds heard in all 4 quadrants. No organomegaly or masses. Negative rebound, negative guarding. PEG tube noted without any signs of infection EXTREMITIES: No edema, pulses are equal bilaterally. No cyanosis or clubbing. Patient does have a rather large blood-filled blister on his left heel. NEUROLOGY: Patient withdraws to painful stimuli. No purposeful movements. A/P Assessment and Plan Assessment and Plan Assessment: 80yM with advanced dementia and prolonged downtrending hospital course complicated by multiple episodes of sepsis and [id number] respiratory failure requiring tracheostomy. He represented to the ICU with severe sepsis. CT chest/abd/pelvis without overt source, but clinically improving on broad spectrum antibiotics. Awaiting culture data. Patient has taken a large step back and he remains on full support mechanical ventilation, but his chronic deconditioning will undoubtedly make this difficult. he remains critically ill and at this point without full support would likely . Patient was transferred to [facility] for continued ICU management. NEUROLOGY Alzheimer's dementia Hypoactive delirium Depression/anxiety -Acetaminophen for fever. Monitor neuro status. -Continue Provigil 200 mg daily in attempt increased alertness. -Try to avoid sedative medication -Fentanyl was started for vent synchrony, however patient is not requiring any fentanyl at this time. PULMONARY Acute on chronic hypoxic and hypercarbic respiratory failure Ventilator dependent pneumonia -continue mechanical ventilation PRBC 15/500/5+/40%, personally tried CPAP this morning, patient failed miserably with increased respirations, increase pressures -Vent bundle -HOB at 30 degrees -s/p #8 Shiley percutaneous trach 06/13. (Dr. Morataya/Dr. Dai). Will remove sutures today -nebs q6h and q2h prn. -Pulmonology was consulted previously respiratory management CARDIOVASCULAR Hypertension -Thus far there is no signs of hypotension/hypoperfusion -Monitor HR and BP keep MAP>65mmHg -Lactated Ringer 50 mL/hr -Free water flush 250 cc every 6 hours GASTROENTEROLOGY Failure to thrive Gastroesophageal reflux disease Constipation Severe acute protein calorie malnutrition -TF -Glucerna 1.5 with goal rate 50ml/hr via PEG tube-tolerating. -On Pepcid.for GI prophylaxis -Colace twice a day for bowel regimen RENAL/: BPH Acute kidney injury, resolved Hypophosphatemia -Could have been secondary to mild dehydration -Continue to Monitor renal function, -Mckeon catheter in place for monitoring strict input and output -electrolytes replacement per protocol. INFECTION DISEASE E. Cloacae UTI MRSA in sputum, colonized Klebsiella in sputum, colonized severe sepsis- resolving. Funguria with history of tropicalis and glabrata -Empirical Cefepime, Flagyl -Start micafungin -Consult infectious disease for recommendations due to the patient having multiple bug colonized sputum, recurrent funguria Pertinent cultures 06/04 - urine - E. Cloacae 06/16 - sputum - Alla Tropicalis 06/27 blood - Staph Epi (1/2 bottles) 06/28 urine - alla glabrata 06/28 sputum - Klebsiella (intermediate to zosyn), MRSA 07/12 sputum - MRSA 07/18 sputum - MRSA, Klebsiella 07/21 sputum -MRSA, gram-negative michael 07/21 blood -no growth for 2 days 07/21 urine -yeast species HEMATOLOGY Normocytic anemia -hemoglobin continues to drop, has dropped almost 4 g of hemoglobin in the last 48 hours -Check Hemoccult stool -Transfuse if hemoglobin below 8.0. -Consult GI for recommendations ENDOCRINOLOGY: Hyperglycemia of critical illness -Accu-Cheks with sliding scale insulin PROPHYLAXIS -GI prophylaxis-Pepcid q12h. -DVT prevention: start sequential compression devices, discontinue heparin at this time due to acute anemia. Rule out acute bleed SKIN Left heel blister -Consult podiatry for recommendations -Continue Multi-Podus boots LINES -Peripheral IVs and lower extremities, discontinue and start upper extremity peripheral IVs. Consider PICC line if patient requires continued IV antibiotics , frequent blood draws Critical care time: 35 minutes excluding procedures. This patient remains critically ill with one or more organ systems which are or may become a threat to life. Physician Zac Perlata Jul 23, 2016 11:57 Bren Meade MD Jul 23, 2016 18:02
[2016-07-23] MEDS: MICAFUNGIN INJ 100 MG in SODIUM CHLORIDE 0.9% INJ 100 ML IV SCH (14:29)
[2016-07-23 15:54] LABS: HEMATOCRIT 27.3 % (39.0-51.0); REVIEW FLAG FINAL
[2016-07-23] MEDS: ACETAMINOPHEN 650 MG/20.3 ML UDC PO PRN (20:07)
[2016-07-23] MEDS: LACTATED RINGER'S 1000 ML INJ 1,000 ML IV SCH (20:10)
[2016-07-23 20:19] LABS: HEMATOCRIT 27.2 % (39.0-51.0); REVIEW FLAG FINAL
[2016-07-24] VITALS (56 sets, daily range): BP systolic 93–149; BP diastolic 37–67; PULSE 80–100; RESP 13–30; TEMP 98.4–101.5; O2SAT 91–100
[2016-07-24] MEDS: INSULIN NovoLIN REGULAR SUPPLEMENTAL SCALE SQ SCH ×5 (00:59→23:46)
[2016-07-24] MEDS: CHLORHEXIDINE GLUCONATE 2 % 1 PACK (2 CLOTHS) TOP SCH (01:01)
[2016-07-24] MEDS: metroNIDAZOLE 500 MG INJ 100 ML IV SCH (01:01)
[2016-07-24] MEDS: RESP: ALBUTEROL 2.5 MG/IPRATROPIUM 0.5 MG NEB (SCH) INH ×4 (03:34→19:30)
[2016-07-24] MEDS: CEFEPIME INJ 1,000 MG in SODIUM CHLORIDE 0.9% INJ 100 ML IV SCH (05:36)
[2016-07-24] MEDS: FREE WATER G-TUBE SCH ×5 (05:36→23:46)
[2016-07-24 05:44] LABS: AUTOMATED NEUTROPHIL # 4.8 TH/MM3 (1.8-7.7); BASOPHIL # 0.2 TH/MM3 (0-0.2); BASOPHIL % 3.4 % (0.0-2.0); EOSINOPHIL # 0.5 TH/MM3 (0-0.4); EOSINOPHIL % 6.4 % (0.0-4.0); HEMO FLAGS DIFF FINAL; LYMPH % 15.5 % (9.0-44.0); LYMPHOCYTE # 1.1 TH/MM3 (1.0-4.8); MEAN CELL VOLUME 82.5 FL (80.0-100.0); MEAN CORPUSCULAR HEMOGLOBIN 26.1 PG (27.0-34.0); MEAN CORPUSCULAR HGB CONC 31.7 % (32.0-36.0); MONO % 6.9 % (0.0-8.0); NEUT % 67.8 % (16.0-70.0); PLATELET COUNT 226 TH/MM3 (150-450); RED BLOOD COUNT 3.16 MIL/MM3 (4.50-5.90); RED CELL DISTRIBUTION WIDTH 16.9 % (11.6-17.2); WHITE BLOOD COUNT 7.1 TH/MM3 (4.0-11.0)
[2016-07-24 05:57] LABS: POTASSIUM 3.7 MEQ/L (3.5-5.1)
[2016-07-24 06:01] LABS: BICARBONATE 26.7 MEQ/L (21.0-32.0); MAGNESIUM 1.8 MG/DL (1.5-2.5)
--- NOTE | 2016-07-24 08:07 | HHI.IDPN ---
Subjective Subjective Remarks Fevers since 3/3 Low grade in last 24hrs Unresponsive with tracheal collar- yellow secretions Antibiotics Cefepime, Metronidazole and Micafungin Lines Peripheral IV lines Past Medical History Alzheimer's dementia, anxiety, BPH and HTN Sepsis Allergies: Coded Allergies: *MDRO Multi-Drug Resistant Organism (Verified Adverse Reaction, Unknown, ) MRSA (sputum) - 06/28/16, 07/12/16 Review of Systems Constitutional Constitutional Remarks Fevers notes Rest ROS not possible Objective . Vital Signs Date Time Temp Pulse Resp B/P Pulse Ox O2 Delivery O2 Flow Rate FiO2 07/24/16 07:00 84 13 99/53 98 07/24/16 06:00 100.6 100 27 133/63 07/24/16 06:00 100 07/24/16 05:00 92 16 113/51 98 07/24/16 04:00 90 07/24/16 04:00 90 14 106/37 99 07/24/16 04:00 30 07/24/16 03:35 100 30 07/24/16 03:00 90 30 116/43 99 07/24/16 02:00 88 22 102/43 99 07/24/16 02:00 88 07/24/16 01:00 94 16 93/47 99 07/24/16 00:00 30 07/24/16 00:00 99.6 96 16 118/66 99 07/24/16 00:00 96 07/23/16 23:45 100 30 07/23/16 23:00 96 17 122/57 100 07/23/16 22:00 100 18 115/63 99 07/23/16 22:00 100 07/23/16 21:00 99.6 106 19 135/63 94 07/23/16 20:35 100 30 07/23/16 20:00 102 26 102/47 97 07/23/16 20:00 30 07/23/16 20:00 101 07/23/16 19:00 100.6 130 34 114/55 97 07/23/16 18:00 104 07/23/16 18:00 104 22 120/63 96 07/23/16 17:08 99 30 07/23/16 17:00 100 07/23/16 17:00 100 26 132/66 99 07/23/16 16:00 30 07/23/16 16:00 92 07/23/16 16:00 99.0 92 27 114/43 99 07/23/16 15:00 84 23 113/55 99 07/23/16 15:00 84 07/23/16 14:11 100 30 07/23/16 14:00 88 24 127/55 100 07/23/16 14:00 88 07/23/16 13:00 86 13 98/49 98 07/23/16 13:00 86 07/23/16 12:00 35 07/23/16 12:00 92 15 118/53 98 07/23/16 12:00 92 07/23/16 11:00 94 17 120/55 99 07/23/16 10:31 99 35 07/23/16 10:00 92 07/23/16 10:00 92 23 140/58 96 07/23/16 09:00 88 17 112/61 100 07/23/16 08:00 100 35 07/23/16 08:00 35 07/23/16 08:00 88 07/23/16 08:00 99.7 88 19 120/58 100 07/23/16 07/23/16 07/24/16 15:00 23:00 07:00 Intake Total 1285 ml 964 ml 1431 ml Output Total 725 ml 1200 ml 1175 ml Balance 560 ml -236 ml 256 ml Intake Oral 0 ml 0 ml IV Total 640 ml 528 ml 600 ml Tube Feeding 335 ml 261 ml 331 ml Tube Irrigant 60 ml 75 ml Other 250 ml 100 ml 500 ml Output Urine Total 725 ml 1200 ml 1175 ml # Bowel Movements 1 1 2 . Laboratory Tests Test 07/23/16 07/23/16 07/23/16 07/24/16 05:56 15:45 20:10 05:20 White Blood Count 7.3 TH/MM3 7.1 TH/MM3 Red Blood Count 3.26 MIL/MM3 3.16 MIL/MM3 Hemoglobin 8.8 GM/DL 8.8 GM/DL 8.9 GM/DL 8.3 GM/DL Hematocrit 28.2 % 27.3 % 27.2 % 26.0 % Mean Corpuscular Volume 86.5 FL 82.5 FL Mean Corpuscular Hemoglobin 27.1 PG 26.1 PG Mean Corpuscular Hemoglobin 31.3 % 31.7 % Concent Red Cell Distribution Width 17.7 % 16.9 % Platelet Count 200 TH/MM3 226 TH/MM3 Mean Platelet Volume 7.3 FL 7.5 FL Neutrophils (%) (Auto) 67.8 % Lymphocytes (%) (Auto) 15.5 % Monocytes (%) (Auto) 6.9 % Eosinophils (%) (Auto) 6.4 % Basophils (%) (Auto) 3.4 % Neutrophils # (Auto) 4.8 TH/MM3 Lymphocytes # (Auto) 1.1 TH/MM3 Monocytes # (Auto) 0.5 TH/MM3 Eosinophils # (Auto) 0.5 TH/MM3 Basophils # (Auto) 0.2 TH/MM3 CBC Comment DIFF FINAL Differential Comment Laboratory Tests Test 07/23/16 07/23/16 07/24/16 05:56 15:45 05:20 Sodium Level 138 MEQ/L 141 MEQ/L Potassium Level 3.9 MEQ/L 3.7 MEQ/L Chloride Level 104 MEQ/L 107 MEQ/L Carbon Dioxide Level 25.3 MEQ/L 26.7 MEQ/L Anion Gap 9 MEQ/L 7 MEQ/L Blood Urea Nitrogen 10 MG/DL 6 MG/DL Creatinine 0.75 MG/DL 0.66 MG/DL Estimat Glomerular Filtration 100 ML/MIN 116 ML/MIN Rate Random Glucose 170 MG/DL 152 MG/DL Calcium Level 8.1 MG/DL 8.2 MG/DL Lactic Acid Level 1.3 mmol/L Magnesium Level 1.8 MG/DL Microbiology Date/Time Procedure Status Source Growth 07/21/16 12:38 Urine Culture - Final Complete Urine Clean Catch Prachi Glabrata 07/21/16 13:50 Aerobic Blood Culture - Preliminary Resulted Blood Peripheral NO GROWTH IN 2 DAYS 07/21/16 13:50 Anaerobic Blood Culture - Final Resulted Blood Peripheral QNS - SEE AEROBE REPORT 07/21/16 13:56 Aerobic Blood Culture - Preliminary Resulted Blood Peripheral NO GROWTH IN 2 DAYS 07/21/16 13:56 Anaerobic Blood Culture - Final Resulted Blood Peripheral QNS - SEE AEROBE REPORT 07/21/16 15:15 Gram Stain - Final Complete Sputum Endotracheal 07/21/16 15:15 Sputum Culture - Final Complete S. Aureus Mrsa Klebsiella Pneumoniae 07/23/16 18:35 Stool Occult Blood (SELINA) - Final Complete Stool Stool HEMOCCULT NEGATIVE Imaging Last Impressions Chest X-Ray 06/27/16 0000 Signed Impressions: Service Date/Time: Monday, June 27, 2016 09:03 - CONCLUSION: No acute disease. There is no evidence of pneumonia. Dhruv Tenorio MD Abdomen/Pelvis CT 06/19/16 0000 Signed Impressions: Service Date/Time: Monday, June 20, 2016 02:30 - CONCLUSION: 1. Moderate stool throughout the colon. No obstruction or inflammatory changes. No small bowel distention. 2. Subacute appearing left hip fracture. 3. PEG tube without evidence of an acute complication. Gary Griffin MD Abdomen X-Ray 06/17/16 0000 Signed Impressions: Service Date/Time: Friday, June 17, 2016 11:51 - CONCLUSION: No abnormal dilatation of the large or small bowel to indicate an ileus. There is a gastrostomy tube in the stomach which appears to be somewhat distended with air. José Miguel Celis MD Physical Exam CONSTITUTIONAL/GENERAL: This is a chronically ill adequately nourished patient, unresponsive SKIN: No jaundice, rashes, or lesions. Skin temperature appropriate. Not diaphoretic. EYES: Pupils equal and round and reactive. No scleral icterus. No injection or drainage. Fundi not examined. ENT: Nose without bleeding or purulent drainage. oral mucosae dry, without visible erythema, exudates, masses, or lesions. NECK: Trachea midline. Trach in place with yellowish sputum CARDIOVASCULAR: Regular rate and rhythm without murmurs, gallops, or rubs. No JVD. Peripheral pulses symmetric. RESPIRATORY/CHEST: Symmetric, unlabored respirations. Bilateral rhonchi present. GASTROINTESTINAL: Abdomen soft, non-tender, nondistended. No hepato-splenomegaly , or palpable masses. No guarding. Bowel sounds present. PEG in place GENITOURINARY: Without palpable bladder distension. Mckeon catheter in place with clear light yellow urine MUSCULOSKELETAL: Extremities without clubbing, cyanosis, contracted no sigificant edema. NEUROLOGICAL: nonverbal; unresponsive; PSYCHIATRIC: unable to assess Assessment & Plan Diagnosis: (1) Fever Plan: Patient with recurrent fevers Sputum with MRSA and Klebsiella Reviewed Xray and CT scan. In view of the recurrent fevers - will stop Cefepime and Flagyl Start Bactrim DS per peg bid (2) Tracheobronchitis (3) Candiduria Plan: Change Mckeon Micafungin for 3-5 days Remarks Dyan Kennedy MD Jul 24, 2016 08:07
[2016-07-24] MEDS: SODIUM CHLORIDE 0.9% FLUSH 5 ML FLUSH IV FLUSH SCH ×2 (08:54→20:34)
[2016-07-24] MEDS: CHLORHEXIDINE 0.12% (ORAL KIT) 15 ML CUP MT SCH ×2 (08:54→20:34)
[2016-07-24] MEDS: SULFAMETHOXAZOLE-TRIMETHOPRIM DS 800-160 MG TAB PEG SCH ×2 (08:54→20:33)
[2016-07-24] MEDS: POVIDONE IODINE 10% SOLN 480 ML BTL TOPICAL SCH ×2 (08:54→20:34)
[2016-07-24] MEDS: FAMOTIDINE 20 MG TAB NG SCH ×2 (08:54→20:33)
[2016-07-24] MEDS: MODAFINIL 200 MG TAB PO SCH (08:54)
--- NOTE | 2016-07-24 09:03 | HHI.CCPN ---
Subjective Remarks/Hospital Course 80 y/o NH patient with severe dehydration, UTI sepsis, respiratory failure admitted earlier. Nonverbal, minimally responsive. Cachectic, anasarca. 06/05 Patient is sedated with Diprivan and intubated. On Insulin drip. PEG tube was replaced by GI yesterday. 06/06: Remains sedated, orally intubated on mech ventilation. 06/07: Remains sedated, orally intubated on mechanical ventilation. Daily C Pap trials ongoing. 06/08: Sedated, arousable, orally intubated on mechanical ventilation. Failed C Pap trials with low tidal volumes and decreasing pressure support today. 06/09: Afebrile. Feeling CPAP trials again today due to low tidal volumes. Tolerating tube feeding and free water boluses. Positive BM. 06/10: Tmax 102. Currently 99.1. Currently a PSV trials. Extremely low tidal volumes however which requires extra pressure support. Eyes are open but does not follow commands. 06/11: no change. failed PSV trail for tachypnea. still altered, but this is baseline for him apparently. 06/12: no changes. slightly more awake, but not following commands, and still altered. discussed care with palliative who again talked with family, and they want aggressive measures. I think we will be forced to pursue tracheostomy, as I do not think it is safe to extubate this patient given mental status. 06/13: again failed SBT. RSBI 105 with persistent altered mental status. will pursue tracheostomy today. 06/14: trach yesterday. re-cultured yesterday per ID. will follow up cultures. need placement. 06/15: Tmax 99.8. Currently 99.7. Positive BM. Tolerating tube feeding. Opens eyes but does not follow commands. 06/16: MAXIMUM TEMPERATURE 100.7. Currently 98.8. Patient opens eyes but does not follow commands. 2 bowel movements yesterday. Tolerating tube feeding. 06/17: No change neurologically opens eyes- do not follow commands. Tolerating CPAP 04/24. No other acute events 06/18: Tolerated T piece up to 4 hours yesterday overnight was on Cipro 15 or 5. Intermittent episodes of nausea. KUB showed some gastric distention. I will consult GI. Patient came in with a Mckeon at the PEG site. This was reasonable placed and a standard PEG tube was placed by Dr. Henson on 06/04/1606/19: Tolerated T piece for several hours yesterday. Intermittent vomiting some abdominal distention. GI has started on Reglan for possible gastroparesis. Will check CT abd pelvis 06/20 Tolerating TP >[address] Bre[address] abdomen pelvis no obstruction, PEG tube in appropriate place. Subjective 07/21: reconsulted for new tachycardia, tachypnea, respiratory distress, fever. In Brief, 80yM with end-stage dementia and COPD who initially presented with altered mental status and sepsis. chronic and declining course without any improvements. family wants aggressive care despite poor overall prognosis. most recently, sputum grew out MRSA, but at the time clinically stable and ID human resource consultant considered this colonization. today with acute worsening tachypnea, tachycardia, fever. patient at baseline neurologic status per Dr. Dolan with whom I have discussed his care. unable to obtain additional history from patient. 07/22: lactate clearing overnight. wbc downtrending. mental status remains poor, but this is baseline for patient. still on mechanical ventilation. cultures pending. ct chest/abd/pelvis without over evidence of infectious process. 07/23: Patient seen and examined today. No acute changes overnight. Patient still remains ventilator for respiratory support. Need to continue follow lactic acid level for lactic acidosis. Patient transferred to [facility] for continued management facilitated by Dr. Shirley 07/24: Patient seen and examined today. No acute changes overnight. Patient still on mechanical ventilation for respiratory support. Patient clinically stabilizing at this time. Patient still with low-grade fevers. We'll start daily CPAP trials. Objective Vital Signs Date Time Temp Pulse Resp B/P Pulse Ox O2 Delivery O2 Flow Rate FiO2 07/24/16 07:00 84 13 99/53 98 07/24/16 06:00 100.6 07/24/16 04:00 30 07/22/16 07:15 Mechanical Ventilator 07/21/16 10:00 6.00 Intake and Output 07/23/16 07/23/16 07/24/16 08:00 16:00 00:00 Intake Total 1139 ml 1285 ml 964 ml Output Total 450 ml 725 ml 1200 ml Balance 689 ml 560 ml -236 ml Result Diagram: 07/24/16 0520 07/24/16 0520 Other Results Microbiology Date/Time Procedure Status Source Growth 07/21/16 12:38 Urine Culture - Final Complete Urine Clean Catch Alla Glabrata 07/21/16 15:15 Gram Stain - Final Complete Sputum Endotracheal 07/21/16 15:15 Sputum Culture - Final Complete S. Aureus Mrsa Klebsiella Pneumoniae 07/23/16 18:35 Stool Occult Blood (SELINA) - Final Complete Stool Stool HEMOCCULT NEGATIVE Imaging Last Impressions Chest X-Ray 06/13/16 0000 Signed Impressions: Service Date/Time: Monday, June 13, 2016 15:09 - CONCLUSION: 1. No pneumothorax is visualized. Tracheostomy in appropriate position. 2. Small left basilar opacity likely representing pleural effusion with associated volume loss and/or consolidation. There is atelectasis versus consolidation at the right lung base. Gary Tracy MD Objective Remarks GENERAL: 80 yo male patient, critically ill, trach+ HEAD: Normocephalic. EYES: PERRL. No scleral icterus. No injection or drainage. NECK: Supple, trachea midline. No JVD. tracheostomy in place without bleeding. CARDIOVASCULAR: normal rate, regular rhythm. no appreciable murmurs. sinus by tele. RESPIRATORY: on vent this morning, prvc 14/550/1:1/peep 5/50%. less tachypneic. GASTROINTESTINAL: Abdomen soft, non-tender, distended. PEG tube is in place above the umbilicus very little erythema. MUSCULOSKELETAL: contracted. With trace nonpitting peripheral upper and lower extremity edema. Extremities are warm. Neuro: RASS -4. does not follow commands. extends LUE, withdraws x 3. Urinary Catheter: Yes Assessment to: Continue Mckeon insert reason: Prolonged Immobilization Date of Insertion: Jul 05, 2016 Vascular Central Line Catheter: No A/P Assessment and Plan Assessment: 80yM with advanced dementia and prolonged downtrending hospital course complicated by multiple episodes of sepsis and [id number] respiratory failure requiring tracheostomy. He represented to the ICU with severe sepsis. CT chest/abd/pelvis without overt source, but clinically improving on broad spectrum antibiotics. Awaiting culture data. Patient has taken a large step back and he remains on full support mechanical ventilation, but his chronic deconditioning will undoubtedly make this difficult. he remains critically ill and at this point without full support would likely . Patient was transferred to [facility] for continued ICU management. NEUROLOGY Alzheimer's dementia Hypoactive delirium Depression/anxiety -Acetaminophen for fever. Monitor neuro status. -Continue Provigil 200 mg daily in attempt increased alertness. -Try to avoid sedative medication -Fentanyl was started for vent synchrony, however patient is not requiring any fentanyl at this time. PULMONARY Acute on chronic hypoxic and hypercarbic respiratory failure Ventilator dependent pneumonia -continue mechanical ventilation PRBC 15/500/5+/40%, personally tried CPAP this morning, patient tolerating, we'll start CPAP trials to T piece -Vent bundle -HOB at 30 degrees -s/p #8 Shiley percutaneous trach 06/13. (Dr. Morataya/Dr. Dai). Will remove sutures today -nebs q6h and q2h prn. -Pulmonology was consulted previously respiratory management CARDIOVASCULAR Hypertension -Thus far there is no signs of hypotension/hypoperfusion -Monitor HR and BP keep MAP>65mmHg -Lactated Ringer 50 mL/hr -Free water flush 250 cc every 6 hours GASTROENTEROLOGY Failure to thrive Gastroesophageal reflux disease Constipation Severe acute protein calorie malnutrition -TF -Glucerna 1.5 with goal rate 50ml/hr via PEG tube-tolerating. -On Pepcid.for GI prophylaxis -Colace twice a day for bowel regimen RENAL/: BPH Acute kidney injury, resolved Hypophosphatemia -Could have been secondary to mild dehydration -Continue to Monitor renal function, -Mckeon catheter in place for monitoring strict input and output -electrolytes replacement per protocol. INFECTION DISEASE Febrile illness E. Cloacae UTI MRSA in sputum, colonized Klebsiella in sputum, colonized severe sepsis- resolving. Funguria with history of tropicalis and glabrata -Discontinued Cefepime, Flagyl per infectious disease -Continue micafungin -Consult infectious disease, I spoke with infectious disease today and she indicated discontinuing Flagyl, cefepime. Started on Bactrim suppression treatment. Recommend continuing micafungin at this time. -Lactic acid level has returned to normal Pertinent cultures 06/04 - urine - E. Cloacae 06/16 - sputum - Alla Tropicalis 06/27 blood - Staph Epi (1/2 bottles) 06/28 urine - alla glabrata 06/28 sputum - Klebsiella (intermediate to zosyn), MRSA 07/12 sputum - MRSA 07/18 sputum - MRSA, Klebsiella 07/21 sputum -MRSA, Klebsiella blood -no growth for 2 days 3/3 urine -Alla glabrata HEMATOLOGY Normocytic anemia -hemoglobin dropped almost 4 g of hemoglobin, but remained stable this time. Could be secondary to hydration -Hemoccult stool was negative -Transfuse if hemoglobin below 8.0. -Consult GI for recommendations ENDOCRINOLOGY: Hyperglycemia of critical illness -Accu-Cheks with sliding scale insulin PROPHYLAXIS -GI prophylaxis-Pepcid q12h. -DVT prevention: start sequential compression devices, discontinue heparin at this time due to acute anemia. Rule out acute bleed SKIN Left heel blister -Consult podiatry for recommendations -Continue Multi-Podus boots LINES -Peripheral IVs and lower extremities, discontinue and start upper extremity peripheral IVs. Consider PICC line if patient requires continued IV antibiotics , frequent blood draws Critical care time: 35 minutes excluding procedures. This patient remains critically ill with one or more organ systems which are or may become a threat to life. I have seen and examined patient with HUNTER Kumari and agree with an assessment and plan as above Zac Cortez Jul 24, 2016 09:03 Jose Selby MD Jul 24, 2016 13:41
[2016-07-24] MEDS: LACTATED RINGER'S 1000 ML INJ 1,000 ML IV SCH (11:35)
[2016-07-24] MEDS: MICAFUNGIN INJ 100 MG in SODIUM CHLORIDE 0.9% INJ 100 ML IV SCH (15:07)
[2016-07-24] MEDS: ACETAMINOPHEN 650 MG/20.3 ML UDC PO PRN (15:28)
--- NOTE | 2016-07-24 19:30 | HHI.PR ---
Subjective Remarks 80 YO male with Dementia, RF,Trach Pt aphasic Tolerates TF Started Abx On PRVC Ac, Fi02 30% Objective Vital Signs Vital Signs Date Time Temp Pulse Resp B/P Pulse Ox O2 Delivery O2 Flow Rate FiO2 07/24/16 18:01 80 19 99/63 97 07/24/16 18:00 82 17 97 07/24/16 18:00 80 07/24/16 17:45 84 20 97 07/24/16 17:41 97 30 07/24/16 17:30 84 23 96 07/24/16 17:15 86 23 97 07/24/16 17:01 88 27 103/45 97 07/24/16 17:00 88 19 96 07/24/16 16:45 90 29 97 07/24/16 16:30 92 22 91 07/24/16 16:15 101.5 90 29 99 07/24/16 16:00 30 07/24/16 16:00 87 07/24/16 16:00 84 23 119/58 99 07/24/16 15:00 86 26 114/56 97 07/24/16 14:30 86 27 97 07/24/16 14:22 98 30 07/24/16 14:15 86 28 99 07/24/16 14:00 88 07/24/16 14:00 88 29 119/57 98 07/24/16 13:45 88 28 98 07/24/16 13:30 90 28 97 07/24/16 13:15 86 28 98 07/24/16 13:09 84 27 122/54 97 07/24/16 13:08 84 27 96/44 97 07/24/16 13:00 82 20 97/40 95 07/24/16 12:26 30 07/24/16 12:15 86 19 97 07/24/16 12:00 99.3 86 24 149/51 97 07/24/16 12:00 85 07/24/16 11:35 98 30 07/24/16 11:15 92 30 97 07/24/16 11:00 92 29 120/51 97 07/24/16 10:45 90 30 99 07/24/16 10:39 96 30 07/24/16 10:39 30 07/24/16 10:30 92 14 96 07/24/16 10:15 92 19 98 07/24/16 10:00 89 07/24/16 10:00 96 19 120/53 98 07/24/16 09:30 90 29 98 07/24/16 09:15 86 24 99 07/24/16 09:03 98 30 07/24/16 09:00 96 28 123/53 97 07/24/16 08:00 99.7 90 28 123/53 97 07/24/16 08:00 30 07/24/16 08:00 84 07/24/16 07:00 84 13 99/53 98 07/24/16 06:00 100.6 100 27 133/63 07/24/16 06:00 100 07/24/16 05:00 92 16 113/51 98 07/24/16 04:00 90 07/24/16 04:00 90 14 106/37 99 07/24/16 04:00 30 07/24/16 03:35 100 30 07/24/16 03:00 90 30 116/43 99 07/24/16 02:00 88 22 102/43 99 07/24/16 02:00 88 07/24/16 01:00 94 16 93/47 99 07/24/16 00:00 30 07/24/16 00:00 99.6 96 16 118/66 99 07/24/16 00:00 96 07/23/16 23:45 100 30 07/23/16 23:00 96 17 122/57 100 07/23/16 22:00 100 18 115/63 99 07/23/16 22:00 100 07/23/16 21:00 99.6 106 19 135/63 94 07/23/16 20:35 100 30 07/23/16 20:00 102 26 102/47 97 07/23/16 20:00 30 07/23/16 20:00 101 I/O 07/23/16 07/23/16 07/23/16 07/24/16 07/24/16 07/24/16 07:00 15:00 23:00 07:00 15:00 23:00 Intake Total 1139 ml 1285 ml 964 ml 1431 ml 1089 ml Output Total 450 ml 725 ml 1200 ml 1175 ml 950 ml Balance 689 ml 560 ml -236 ml 256 ml 139 ml Intake Oral 0 ml 0 ml 0 ml IV Total 390 ml 640 ml 528 ml 600 ml 451 ml Tube Feeding 249 ml 335 ml 261 ml 331 ml 288 ml Tube Irrigant 60 ml 75 ml Other 500 ml 250 ml 100 ml 500 ml 350 ml Output Urine Total 450 ml 725 ml 1200 ml 1175 ml 950 ml # Bowel Movements 2 1 1 2 1 Result Diagram: 07/24/1651907/24/16519 Objective Remarks GENERAL: Elderly frail male, mild sob SKIN: Warm and dry. HEAD: Normocephalic. EYES: No scleral icterus. No injection or drainage. NECK: Supple, trachea midline. No JVD or lymphadenopathy. CARDIOVASCULAR: Regular rate and rhythm without murmurs, gallops, or rubs. RESPIRATORY: Breath sounds equal bilaterally. No accessory muscle use. GASTROINTESTINAL: Abdomen soft, non-tender, nondistended. MUSCULOSKELETAL: No cyanosis, or edema. BACK: Nontender without obvious deformity. No CVA tenderness. A/P Assessment and Plan RF,s/p Trach Aphasia Dysphagia Dementia PLAN: Aerosol nebs Tracheal suction Levsin qid Tube feeding 40 cc/hr Cont Abx Check cultures Cont Vent support with PRVC AC Silverio Reyes MD Jul 24, 2016 19:30
[2016-07-25] VITALS (69 sets, daily range): BP systolic 91–134; BP diastolic 40–79; PULSE 76–98; RESP 13–34; TEMP 98.5–99.9; O2SAT 93–100
[2016-07-25] MEDS: RESP: ALBUTEROL 2.5 MG/IPRATROPIUM 0.5 MG NEB (SCH) INH ×2 (03:47→10:19)
[2016-07-25] MEDS: INSULIN NovoLIN REGULAR SUPPLEMENTAL SCALE SQ SCH ×3 (05:40→17:48)
[2016-07-25] MEDS: CHLORHEXIDINE GLUCONATE 2 % 1 PACK (2 CLOTHS) TOP SCH (05:41)
[2016-07-25] MEDS: FREE WATER G-TUBE SCH ×3 (05:41→17:48)
[2016-07-25 07:47] LABS: AUTOMATED NEUTROPHIL # 6.2 TH/MM3 (1.8-7.7); BASOPHIL % 0.5 % (0.0-2.0); EOSINOPHIL # 0.5 TH/MM3 (0-0.4); EOSINOPHIL % 6.1 % (0.0-4.0); HEMATOCRIT 28.5 % (39.0-51.0); HEMO FLAGS DIFF FINAL; LYMPH % 13.4 % (9.0-44.0); LYMPHOCYTE # 1.1 TH/MM3 (1.0-4.8); MEAN CELL VOLUME 82.4 FL (80.0-100.0); MEAN CORPUSCULAR HEMOGLOBIN 26.2 PG (27.0-34.0); MEAN CORPUSCULAR HGB CONC 31.8 % (32.0-36.0); MONO % 7.2 % (0.0-8.0); NEUT % 72.8 % (16.0-70.0); PLATELET COUNT 251 TH/MM3 (150-450); RED BLOOD COUNT 3.45 MIL/MM3 (4.50-5.90); RED CELL DISTRIBUTION WIDTH 16.6 % (11.6-17.2); WHITE BLOOD COUNT 8.4 TH/MM3 (4.0-11.0)
[2016-07-25] MEDS: RESP: ALBUTEROL 2.5 MG/IPRATROPIUM 0.5 MG NEB (PRN) INH ×2 (07:53→16:17)
[2016-07-25 08:12] LABS: POTASSIUM 3.9 MEQ/L (3.5-5.1)
[2016-07-25] MEDS: SODIUM CHLORIDE 0.9% FLUSH 5 ML FLUSH IV FLUSH SCH ×2 (08:14→20:23)
[2016-07-25] MEDS: FAMOTIDINE 20 MG TAB NG SCH ×2 (08:14→20:23)
[2016-07-25] MEDS: MODAFINIL 200 MG TAB PO SCH (08:14)
[2016-07-25] MEDS: LACTATED RINGER'S 1000 ML INJ 1,000 ML IV SCH (08:14)
[2016-07-25] MEDS: SULFAMETHOXAZOLE-TRIMETHOPRIM DS 800-160 MG TAB PEG SCH ×2 (08:14→20:23)
[2016-07-25] MEDS: CHLORHEXIDINE 0.12% (ORAL KIT) 15 ML CUP MT SCH ×2 (08:14→20:23)
[2016-07-25 08:15] LABS: BICARBONATE 25.3 MEQ/L (21.0-32.0); MAGNESIUM 1.9 MG/DL (1.5-2.5)
[2016-07-25] MEDS: POVIDONE IODINE 10% SOLN 480 ML BTL TOPICAL SCH ×2 (08:15→20:24)
--- NOTE | 2016-07-25 09:56 | PD.CONS ---
History of Present Illness Service Podiatry Consult Requested By Reason for Consult Ulcer L heel evaluation Primary Care Physician Non-Staff Diagnoses: History of Present Illness 80 yo male with dementia, on ventilator. Sent from nursing facility with fever and being treated for sepsis. He has bilateral multi-podus boots. Past Family Social History Allergies: Coded Allergies: *MDRO Multi-Drug Resistant Organism (Verified Adverse Reaction, Unknown, ) MRSA (sputum) - 06/28/16, 07/12/16, 07/21/16 Past Medical History Alzheimer's Dementia Syncope Failure to thrive Contipation BPH Depression/anxiety Active Ordered Medications Current Medications Medications (Trade) Dose Ordered Sig/Estefany Route Start Time Stop Time Status Last Admin (NS Flush) 2 ml UNSCH PRN IV FLUSH 06/04/16 04:15 07/02/16 05:00 (NS Flush) 2 ml BID IV FLUSH 06/04/16 09:00 07/25/16 08:14 (Zofran Inj) 4 mg Q6H PRN IV 06/04/16 04:15 06/19/16 04:27 Miscellaneous Information 1 Q361D XX 06/04/16 04:15 06/04/16 04:15 (Chlorhexidine 2% Cloth) Taper DAILY@04 TOP 06/05/16 04:00 06/01/17 03:59 07/25/16 05:41 (Chlorhexidine 2% Cloth) 3 pack UNSCH PRN TOP 06/04/16 04:15 (Pepcid) 20 mg BID NG 06/13/16 21:00 07/25/16 08:14 (Free Water) 250 ml Q6HR G-TUBE 06/15/16 18:00 07/25/16 05:41 (Betadine 10% Top Soln) 1 applic BID TOPICAL 06/23/16 13:00 07/25/16 08:15 (Reglan Inj) 5 mg Q8HR PRN IV PUSH 06/23/16 15:00 (Miralax) 17 gm DAILY PRN PO 06/23/16 15:00 Modafinil 400 mg 400 mg DAILY PO 06/25/16 09:00 07/25/16 08:14 (Lr 1000 ml Inj) 1,000 ml @ 50 mls/hr Q20H IV 07/21/16 14:00 07/25/16 08:14 Magnesium Oxide 800 mg 800 mg UNSCH PRN PO 07/21/16 13:00 Magnesium Sulfate 4 gm/Sodium Chloride 100 ml @ 50 mls/hr UNSCH PRN IV 07/21/16 13:00 Magnesium Sulfate 2 gm/Sodium Chloride 100 ml @ 50 mls/hr UNSCH PRN IV 07/21/16 13:00 Potassium Chloride 100 ml @ 50 mls/hr Q2H PRN IV 07/21/16 13:00 Potassium Chloride 100 ml @ 50 mls/hr Q2H PRN IV 07/21/16 13:00 Potassium Chloride 100 ml @ 50 mls/hr Q2H PRN IV 07/21/16 13:00 (KCl 40 Meq Premix Inj) 100 ml @ 25 mls/hr UNSCH PRN IV 07/21/16 13:00 (KCl 40 Meq/30 ml Liq) 40 meq UNSCH PRN PO/TUBE 07/21/16 13:00 (KCl 40 Meq/30 ml Liq) 40 meq UNSCH PRN PO/TUBE 07/21/16 13:00 (K-Phos) 2,000 mg Q4H PRN PO 07/21/16 13:00 Potassium Phosphate 2000 mg 2,000 mg UNSCH PRN PO/TUBE 07/21/16 13:00 Potassium Phosphate 30 mmol/ Sodium Chloride 260 ml @ 42 mls/hr UNSCH PRN IV 07/21/16 13:00 (Sodium Phosphate Inj/NS 250 ml Inj) 250 ml @ 42 mls/hr UNSCH PRN IV 07/21/16 13:00 (D50w (Vial) Inj) 25 ml UNSCH PRN IV PUSH 07/21/16 13:00 (NovoLIN R SUPPLEMENTAL SCALE) 1 Q6HR SQ 07/21/16 18:00 07/25/16 05:40 (Tylenol 650 Mg/ 20 ml Liq) 650 mg Q6H PRN PO 07/21/16 13:00 07/24/16 15:28 Chlorhexidine Gluconate 15 ml 15 ml BID@08,20 MT 07/21/16 20:00 07/25/16 08:14 Fentanyl Citrate 250 ml @ 0 mls/hr TITRATE IV 07/22/16 07:15 07/22/16 09:17 (Mycamine Inj/NS Inj) 100 ml @ 100 mls/hr Q24H IV 07/23/16 15:00 07/24/16 15:07 (Bactrim Ds 800-160 Mg) 1 tab Q12HR PEG 07/24/16 09:00 07/25/16 08:14 Social History negative x 3 Physical Exam Vital Signs Vital Signs Date Time Temp Pulse Resp B/P Pulse Ox O2 Delivery O2 Flow Rate FiO2 07/25/16 09:00 88 24 100 07/25/16 08:45 84 14 99 07/25/16 08:30 86 15 100 07/25/16 08:15 78 14 100 07/25/16 08:01 98.5 76 14 127/77 100 07/25/16 08:00 88 07/25/16 08:00 30 07/25/16 08:00 76 13 100 07/25/16 07:47 99 30 07/25/16 07:01 78 21 106/54 96 07/25/16 06:01 96 14 122/60 99 07/25/16 06:00 90 07/25/16 05:01 84 14 97/42 98 07/25/16 04:01 99.9 80 17 106/45 100 07/25/16 04:00 80 07/25/16 04:00 30 07/25/16 03:59 99 30 07/25/16 03:01 80 16 112/51 99 07/25/16 02:01 86 23 107/54 99 07/25/16 02:00 80 07/25/16 01:01 82 20 126/62 100 07/25/16 00:10 100 30 07/25/16 00:01 99.6 88 19 116/53 100 07/25/16 00:00 30 07/25/16 00:00 86 07/24/16 23:01 80 21 104/55 98 07/24/16 22:01 80 15 98/46 99 07/24/16 22:00 80 07/24/16 21:39 96 30 07/24/16 21:01 92 28 134/67 100 07/24/16 20:01 98.4 82 21 115/65 99 07/24/16 20:00 80 07/24/16 20:00 30 07/24/16 19:41 98 30 07/24/16 19:01 82 26 123/67 97 07/24/16 18:01 80 19 99/63 97 07/24/16 18:00 82 17 97 07/24/16 18:00 80 07/24/16 17:45 84 20 97 07/24/16 17:41 97 30 07/24/16 17:30 84 23 96 07/24/16 17:15 86 23 97 07/24/16 17:01 88 27 103/45 97 07/24/16 17:00 88 19 96 07/24/16 16:45 90 29 97 07/24/16 16:30 92 22 91 07/24/16 16:15 101.5 90 29 99 07/24/16 16:00 30 07/24/16 16:00 87 07/24/16 16:00 84 23 119/58 99 07/24/16 15:00 86 26 114/56 97 07/24/16 14:30 86 27 97 07/24/16 14:22 98 30 07/24/16 14:15 86 28 99 07/24/16 14:00 88 07/24/16 14:00 88 29 119/57 98 07/24/16 13:45 88 28 98 07/24/16 13:30 90 28 97 07/24/16 13:15 86 28 98 07/24/16 13:09 84 27 122/54 97 07/24/16 13:08 84 27 96/44 97 07/24/16 13:00 82 20 97/40 95 07/24/16 12:26 30 07/24/16 12:15 86 19 97 07/24/16 12:00 99.3 86 24 149/51 97 07/24/16 12:00 85 07/24/16 11:35 98 30 07/24/16 11:15 92 30 97 07/24/16 11:00 92 29 120/51 97 07/24/16 10:45 90 30 99 07/24/16 10:39 96 30 07/24/16 10:39 30 07/24/16 10:30 92 14 96 07/24/16 10:15 92 19 98 07/24/16 10:00 89 07/24/16 10:00 96 19 120/53 98 Physical Exam on ventilator, not awake/alert L heel with stable plantar/posterior eschar approx 4cm x 3cm. No drainage. No surrounding erythema present. R heel with no open lesions. Laboratory Laboratory Tests Test 07/25/16 07:20 White Blood Count 8.4 Red Blood Count 3.45 Hemoglobin 9.1 Hematocrit 28.5 Mean Corpuscular Volume 82.4 Mean Corpuscular Hemoglobin 26.2 Mean Corpuscular Hemoglobin 31.8 Concent Red Cell Distribution Width 16.6 Platelet Count 251 Mean Platelet Volume 6.9 Neutrophils (%) (Auto) 72.8 Lymphocytes (%) (Auto) 13.4 Monocytes (%) (Auto) 7.2 Eosinophils (%) (Auto) 6.1 Basophils (%) (Auto) 0.5 Neutrophils # (Auto) 6.2 Lymphocytes # (Auto) 1.1 Monocytes # (Auto) 0.6 Eosinophils # (Auto) 0.5 Basophils # (Auto) 0.0 CBC Comment DIFF FINAL Differential Comment Sodium Level 138 Potassium Level 3.9 Chloride Level 104 Carbon Dioxide Level 25.3 Anion Gap 9 Blood Urea Nitrogen 7 Creatinine 0.69 Estimat Glomerular Filtration 110 Rate Random Glucose 155 Calcium Level 8.7 Magnesium Level 1.9 Date/Time Procedure Status Source Growth 07/24/16 13:50 Aerobic Blood Culture Received Blood Peripheral Pending 07/24/16 13:50 Anaerobic Blood Culture Received Blood Peripheral Pending 07/23/16 18:35 Stool Occult Blood (SELINA) - Final Complete Stool Stool HEMOCCULT NEGATIVE 07/21/16 15:15 Gram Stain - Final Complete Sputum Endotracheal 07/21/16 15:15 Sputum Culture - Final Complete S. Aureus Mrsa Klebsiella Pneumoniae 07/21/16 13:56 Aerobic Blood Culture - Preliminary Resulted Blood Peripheral Gram Positive Cocci 07/21/16 13:56 Anaerobic Blood Culture - Final Resulted Blood Peripheral QNS - SEE AEROBE REPORT 07/21/16 12:38 Urine Culture - Final Complete Urine Clean Catch Prachi Glabrata Result Diagram: 07/25/16 0720 07/25/16 0720 Imaging Last Impressions Chest X-Ray 07/21/16 0000 Signed Impressions: Service Date/Time: Thursday, July 21, 2016 12:05 - CONCLUSION: Negative for an acute process. Stanley Parker MD FACR Chest CT 07/21/16 0000 Signed Impressions: Service Date/Time: Thursday, July 21, 2016 16:26 - CONCLUSION: 1. Minimal bibasilar parenchymal changes without consolidation. 2. There is no significant pleural effusion. Stanley Parker MD FACR Abdomen/Pelvis CT 07/21/16 0000 Signed Impressions: Service Date/Time: Thursday, July 21, 2016 16:26 - CONCLUSION: 1. I do not see a source of infection. 2. There is mild induration in the root of the mesentery. This is nonspecific. Stanley Parker MD FACR Abdomen X-Ray 06/17/16 0000 Signed Impressions: Service Date/Time: Friday, June 17, 2016 11:51 - CONCLUSION: No abnormal dilatation of the large or small bowel to indicate an ileus. There is a gastrostomy tube in the stomach which appears to be somewhat distended with air. José Miguel Celis MD Assessment and Plan Assessment and Plan L heel ulcer, stable Continue multi-podus boots bilaterally. Continue betadine to surrounding tissue to maintain stability. No further treatment recommended at this time Re-consult if new issues arise. Loren Sunshine DPM Jul 25, 2016 09:56
--- NOTE | 2016-07-25 15:22 | HHI.CCPN ---
Subjective Remarks/Hospital Course 80 y/o NH patient with severe dehydration, UTI sepsis, respiratory failure admitted earlier. Nonverbal, minimally responsive. Cachectic, anasarca. 06/05 Patient is sedated with Diprivan and intubated. On Insulin drip. PEG tube was replaced by GI yesterday. 06/06: Remains sedated, orally intubated on mech ventilation. 06/07: Remains sedated, orally intubated on mechanical ventilation. Daily C Pap trials ongoing. 06/08: Sedated, arousable, orally intubated on mechanical ventilation. Failed C Pap trials with low tidal volumes and decreasing pressure support today. 06/09: Afebrile. Feeling CPAP trials again today due to low tidal volumes. Tolerating tube feeding and free water boluses. Positive BM. 06/10: Tmax 102. Currently 99.1. Currently a PSV trials. Extremely low tidal volumes however which requires extra pressure support. Eyes are open but does not follow commands. 06/11: no change. failed PSV trail for tachypnea. still altered, but this is baseline for him apparently. 06/12: no changes. slightly more awake, but not following commands, and still altered. discussed care with palliative who again talked with family, and they want aggressive measures. I think we will be forced to pursue tracheostomy, as I do not think it is safe to extubate this patient given mental status. 06/13: again failed SBT. RSBI 105 with persistent altered mental status. will pursue tracheostomy today. 06/14: trach yesterday. re-cultured yesterday per ID. will follow up cultures. need placement. 06/15: Tmax 99.8. Currently 99.7. Positive BM. Tolerating tube feeding. Opens eyes but does not follow commands. 06/16: MAXIMUM TEMPERATURE 100.7. Currently 98.8. Patient opens eyes but does not follow commands. 2 bowel movements yesterday. Tolerating tube feeding. 06/17: No change neurologically opens eyes- do not follow commands. Tolerating CPAP 04/24. No other acute events 06/18: Tolerated T piece up to 4 hours yesterday overnight was on Cipro 15 or 5. Intermittent episodes of nausea. KUB showed some gastric distention. I will consult GI. Patient came in with a Mckeon at the PEG site. This was reasonable placed and a standard PEG tube was placed by Dr. Henson on 06/04/1606/19: Tolerated T piece for several hours yesterday. Intermittent vomiting some abdominal distention. GI has started on Reglan for possible gastroparesis. Will check CT abd pelvis 06/20 Tolerating TP >[address] Bre[address] abdomen pelvis no obstruction, PEG tube in appropriate place. Subjective 07/21: reconsulted for new tachycardia, tachypnea, respiratory distress, fever. In Brief, 80yM with end-stage dementia and COPD who initially presented with altered mental status and sepsis. chronic and declining course without any improvements. family wants aggressive care despite poor overall prognosis. most recently, sputum grew out MRSA, but at the time clinically stable and ID quantitative consultant considered this colonization. today with acute worsening tachypnea, tachycardia, fever. patient at baseline neurologic status per Dr. Dolan with whom I have discussed his care. unable to obtain additional history from patient. 07/22: lactate clearing overnight. wbc downtrending. mental status remains poor, but this is baseline for patient. still on mechanical ventilation. cultures pending. ct chest/abd/pelvis without over evidence of infectious process. 07/23: Patient seen and examined today. No acute changes overnight. Patient still remains ventilator for respiratory support. Need to continue follow lactic acid level for lactic acidosis. Patient transferred to [place] for continued management facilitated by Dr. Shirley 07/24: Patient seen and examined today. No acute changes overnight. Patient still on mechanical ventilation for respiratory support. Patient clinically stabilizing at this time. Patient still with low-grade fevers. We'll start daily CPAP trials. 07/25 no issues overnight Objective Vital Signs Date Time Temp Pulse Resp B/P Pulse Ox O2 Delivery O2 Flow Rate FiO2 07/25/16 14:15 80 27 96 07/25/16 14:01 106/65 07/25/16 13:07 30 07/25/16 12:01 99.5 07/22/16 07:15 Mechanical Ventilator 07/21/16 10:00 6.00 Intake and Output 07/24/16 07/24/16 07/25/16 08:00 16:00 00:00 Intake Total 1431 ml 1089 ml 757 ml Output Total 1175 ml 950 ml 700 ml Balance 256 ml 139 ml 57 ml Result Diagram: 07/25/16 0720 07/25/16 0720 Other Results Microbiology Date/Time Procedure Status Source Growth 07/23/16 18:35 Stool Occult Blood (SELINA) - Final Complete Stool Stool HEMOCCULT NEGATIVE Imaging Last Impressions Chest X-Ray 06/13/16 0000 Signed Impressions: Service Date/Time: Monday, June 13, 2016 15:09 - CONCLUSION: 1. No pneumothorax is visualized. Tracheostomy in appropriate position. 2. Small left basilar opacity likely representing pleural effusion with associated volume loss and/or consolidation. There is atelectasis versus consolidation at the right lung base. Gary Tracy MD Objective Remarks GENERAL: 80 yo male patient, critically ill, trach+ HEAD: Normocephalic. EYES: PERRL. No scleral icterus. No injection or drainage. NECK: Supple, trachea midline. No JVD. tracheostomy in place without bleeding. CARDIOVASCULAR: normal rate, regular rhythm. no appreciable murmurs. sinus by tele. RESPIRATORY: on vent this morning, prvc 14/550/1:1/peep 5/50%. less tachypneic. GASTROINTESTINAL: Abdomen soft, non-tender, distended. PEG tube is in place above the umbilicus very little erythema. MUSCULOSKELETAL: contracted. With trace nonpitting peripheral upper and lower extremity edema. Extremities are warm. Neuro: RASS -4. does not follow commands. extends LUE, withdraws x 3. Date of Insertion: Jul 05, 2016 A/P Problem List: (1) Severe sepsis with acute organ dysfunction ICD Code: A41.9 Status: Acute (2) Acute respiratory failure ICD Code: J96.00 Status: Acute (3) UTI (urinary tract infection) ICD Code: N39.0 Status: Acute (4) Alzheimer's dementia ICD Code: F02.80 Status: Chronic (5) Fever ICD Code: R50.9 Status: Acute (6) Global aphasia ICD Code: R47.02 Status: Acute Assessment and Plan Assessment: 80yM with advanced dementia and prolonged downtrending hospital course complicated by multiple episodes of sepsis and [id number] respiratory failure requiring tracheostomy. He represented to the ICU with severe sepsis. CT chest/abd/pelvis without overt source, but clinically improving on broad spectrum antibiotics. Awaiting culture data. Patient has taken a large step back and he remains on full support mechanical ventilation, but his chronic deconditioning will undoubtedly make this difficult. he remains critically ill and at this point without full support would likely . Patient was transferred to [place] for continued ICU management. NEUROLOGY Alzheimer's dementia Hypoactive delirium Depression/anxiety -Acetaminophen for fever. Monitor neuro status. -Continue Provigil 200 mg daily in attempt increased alertness. -Avoid sedative medication PULMONARY Acute on chronic hypoxic and hypercarbic respiratory failure Ventilator dependent pneumonia -continue mechanical ventilation PRBC 15/500/5+/40%, personally tried CPAP this morning, patient tolerating, we'll start CPAP trials to T piece -Vent bundle -HOB at 30 degrees -s/p #8 Shiley percutaneous trach 06/13. (Dr. Morataya/Dr. Dai). Will remove sutures today -nebs q6h and q2h prn. CARDIOVASCULAR Hypertension -normotensive -Telemetry -Lactated Ringer 50 mL/hr -Free water flush 250 cc every 6 hours GASTROENTEROLOGY Failure to thrive Gastroesophageal reflux disease Constipation Severe acute protein calorie malnutrition -TF -Glucerna 1.5 with goal rate 50ml/hr via PEG tube-tolerating. -On Pepcid.for GI prophylaxis -Colace twice a day for bowel regimen RENAL/: BPH Acute kidney injury, resolved Hypophosphatemia -Could have been secondary to mild dehydration -Continue to Monitor renal function, -Mckeon catheter in place for monitoring strict input and output -electrolytes replacement per protocol. INFECTION DISEASE Febrile illness E. Cloacae UTI MRSA in sputum, colonized Klebsiella in sputum, colonized severe sepsis- resolving. Funguria with history of tropicalis and glabrata -Discontinued Cefepime, Flagyl per infectious disease -Continue micafungin -Consult infectious disease, I spoke with infectious disease today and she indicated discontinuing Flagyl, cefepime. Started on Bactrim suppression treatment. Recommend continuing micafungin at this time. -Lactic acid level has returned to normal Pertinent cultures 06/04 - urine - E. Cloacae 06/16 - sputum - Alla Tropicalis 06/27 blood - Staph Epi (1/2 bottles) 06/28 urine - alla glabrata 06/28 sputum - Klebsiella (intermediate to zosyn), MRSA 07/12 sputum - MRSA 07/18 sputum - MRSA, Klebsiella 07/21 sputum -MRSA, Klebsiella 07/21 blood -no growth for 2 days 3/3 urine -Alla glabrata HEMATOLOGY Normocytic anemia -hemoglobin dropped almost 4 g of hemoglobin, but remained stable this time. Could be secondary to hydration -Hemoccult stool was negative -Transfuse if hemoglobin below 8.0. -Consult GI for recommendations ENDOCRINOLOGY: Hyperglycemia of critical illness -Accu-Cheks with sliding scale insulin PROPHYLAXIS -GI prophylaxis-Pepcid q12h. -DVT prevention: start sequential compression devices, discontinue heparin at this time due to acute anemia. Rule out acute bleed SKIN Left heel blister -Consult podiatry for recommendations -Continue Multi-Podus boots LINES -Peripheral IVs and lower extremities, discontinue and start upper extremity peripheral IVs. Consider PICC line if patient requires continued IV antibiotics , frequent blood draws Level 2 Jose Selby MD Jul 25, 2016 15:22
[2016-07-25] MEDS: MICAFUNGIN INJ 100 MG in SODIUM CHLORIDE 0.9% INJ 100 ML IV SCH (15:41)
--- NOTE | 2016-07-25 18:49 | HHI.PR ---
Subjective Remarks 80 YO male with Dementia, RF,Trach Pt aphasic Tolerates TF Started Abx On PRVC Ac, Fi02 30% tolerated CPAP for few hrs Objective Vital Signs Vital Signs Date Time Temp Pulse Resp B/P Pulse Ox O2 Delivery O2 Flow Rate FiO2 07/25/16 18:30 98 20 98 07/25/16 18:15 96 20 95 07/25/16 18:01 92 27 116/68 94 07/25/16 18:00 92 31 95 07/25/16 18:00 90 07/25/16 17:45 92 29 96 07/25/16 17:30 96 27 96 07/25/16 17:15 88 17 97 07/25/16 17:01 88 16 109/79 97 07/25/16 17:00 88 17 98 07/25/16 16:45 86 14 99 07/25/16 16:30 82 16 100 07/25/16 16:17 99 30 07/25/16 16:15 88 20 98 07/25/16 16:01 80 26 101/55 07/25/16 16:00 78 26 07/25/16 16:00 30 07/25/16 16:00 88 07/25/16 15:30 78 25 07/25/16 15:15 80 28 07/25/16 15:01 99.5 82 26 96/60 07/25/16 15:00 88 26 07/25/16 14:15 80 27 96 07/25/16 14:01 84 32 106/65 98 07/25/16 14:00 84 31 99 07/25/16 14:00 84 07/25/16 13:45 84 29 96 07/25/16 13:30 84 31 97 07/25/16 13:15 84 32 97 07/25/16 13:07 100 30 07/25/16 13:01 90 34 116/60 98 07/25/16 13:00 92 34 99 07/25/16 12:45 86 29 100 07/25/16 12:30 86 30 93 07/25/16 12:30 86 30 93 07/25/16 12:15 86 30 93 07/25/16 12:01 99.5 90 30 101/56 94 07/25/16 12:00 90 30 97 07/25/16 12:00 88 07/25/16 12:00 30 07/25/16 11:01 88 30 134/64 99 07/25/16 11:00 90 32 100 07/25/16 10:45 86 13 96 07/25/16 10:30 86 22 97 07/25/16 10:23 98 30 07/25/16 10:23 30 07/25/16 10:15 88 19 97 07/25/16 10:01 88 19 104/67 97 07/25/16 10:00 86 07/25/16 10:00 88 20 97 07/25/16 09:00 88 24 100 07/25/16 08:45 84 14 99 07/25/16 08:30 86 15 100 07/25/16 08:15 78 14 100 07/25/16 08:01 98.5 76 14 127/77 100 07/25/16 08:00 88 07/25/16 08:00 30 07/25/16 08:00 76 13 100 07/25/16 07:47 99 30 07/25/16 07:01 78 21 106/54 96 07/25/16 06:01 96 14 122/60 99 07/25/16 06:00 90 07/25/16 05:01 84 14 97/42 98 07/25/16 04:01 99.9 80 17 106/45 100 07/25/16 04:00 80 07/25/16 04:00 30 07/25/16 03:59 99 30 07/25/16 03:01 80 16 112/51 99 07/25/16 02:01 86 23 107/54 99 07/25/16 02:00 80 07/25/16 01:01 82 20 126/62 100 07/25/16 00:10 100 30 07/25/16 00:01 99.6 88 19 116/53 100 07/25/16 00:00 30 07/25/16 00:00 86 07/24/16 23:01 80 21 104/55 98 07/24/16 22:01 80 15 98/46 99 07/24/16 22:00 80 07/24/16 21:39 96 30 07/24/16 21:01 92 28 134/67 100 07/24/16 20:01 98.4 82 21 115/65 99 07/24/16 20:00 80 07/24/16 20:00 30 07/24/16 19:41 98 30 07/24/16 19:01 82 26 123/67 97 I/O 07/24/16 07/24/16 07/24/16 07/25/16 07/25/16 07/25/16 07:00 15:00 23:00 07:00 15:00 23:00 Intake Total 1431 ml 1089 ml 757 ml 1128 ml 1263 ml Output Total 1175 ml 950 ml 700 ml 1100 ml 1000 ml Balance 256 ml 139 ml 57 ml 28 ml 263 ml Intake Oral 0 ml 0 ml IV Total 600 ml 451 ml 420 ml 363 ml 415 ml Tube Feeding 331 ml 288 ml 262 ml 265 ml 298 ml Tube Irrigant 75 ml Other 500 ml 350 ml 500 ml 550 ml Output Urine Total 1175 ml 950 ml 700 ml 1100 ml 1000 ml # Bowel Movements 2 1 1 2 0 Result Diagram: 07/25/1671907/25/16719 Objective Remarks GENERAL: Elderly frail male, mild sob SKIN: Warm and dry. HEAD: Normocephalic. EYES: No scleral icterus. No injection or drainage. NECK: Supple, trachea midline. No JVD or lymphadenopathy. CARDIOVASCULAR: Regular rate and rhythm without murmurs, gallops, or rubs. RESPIRATORY: Breath sounds equal bilaterally. No accessory muscle use. GASTROINTESTINAL: Abdomen soft, non-tender, nondistended. MUSCULOSKELETAL: No cyanosis, or edema. BACK: Nontender without obvious deformity. No CVA tenderness. A/P Assessment and Plan RF,s/p Trach Aphasia Dysphagia Dementia PLAN: Aerosol nebs Tracheal suction Levsin qid Tube feeding 40 cc/hr Cont Abx Check cultures Cont Vent support with PRVC AC Daily CPAP trial. Silverio Reyes MD Jul 25, 2016 18:49
[2016-07-26] VITALS (40 sets, daily range): BP systolic 104–144; BP diastolic 51–72; PULSE 74–94; RESP 12–41; TEMP 98.2–99.8; O2SAT 92–100
[2016-07-26] MEDS: INSULIN NovoLIN REGULAR SUPPLEMENTAL SCALE SQ SCH ×4 (00:36→23:32)
[2016-07-26] MEDS: CHLORHEXIDINE GLUCONATE 2 % 1 PACK (2 CLOTHS) TOP SCH (04:00)
[2016-07-26 05:38] LABS: HEMATOCRIT 30.9 % (39.0-51.0); MEAN CELL VOLUME 84.1 FL (80.0-100.0); MEAN CORPUSCULAR HEMOGLOBIN 27.2 PG (27.0-34.0); MEAN CORPUSCULAR HGB CONC 32.4 % (32.0-36.0); PLATELET COUNT 227 TH/MM3 (150-450); POTASSIUM 4.1 MEQ/L (3.5-5.1); RED BLOOD COUNT 3.68 MIL/MM3 (4.50-5.90); RED CELL DISTRIBUTION WIDTH 16.9 % (11.6-17.2); REVIEW FLAG FINAL; WHITE BLOOD COUNT 8.5 TH/MM3 (4.0-11.0)
[2016-07-26 05:43] LABS: BICARBONATE 26.2 MEQ/L (21.0-32.0)
[2016-07-26] MEDS: FREE WATER G-TUBE SCH ×4 (06:00→23:32)
[2016-07-26] MEDS: RESP: ALBUTEROL 2.5 MG/IPRATROPIUM 0.5 MG NEB (PRN) INH (07:39)
[2016-07-26] MEDS: POVIDONE IODINE 10% SOLN 480 ML BTL TOPICAL SCH ×2 (09:00→20:25)
[2016-07-26] MEDS: FAMOTIDINE 20 MG TAB NG SCH ×2 (09:44→20:24)
[2016-07-26] MEDS: CHLORHEXIDINE 0.12% (ORAL KIT) 15 ML CUP MT SCH ×2 (09:44→20:23)
[2016-07-26] MEDS: MODAFINIL 200 MG TAB PO SCH (09:44)
[2016-07-26] MEDS: SULFAMETHOXAZOLE-TRIMETHOPRIM DS 800-160 MG TAB PEG SCH ×2 (09:44→20:24)
[2016-07-26] MEDS: SODIUM CHLORIDE 0.9% FLUSH 5 ML FLUSH IV FLUSH SCH ×2 (09:45→20:23)
[2016-07-26] MEDS: LACTATED RINGER'S 1000 ML INJ 1,000 ML IV SCH (09:45)
[2016-07-26] MEDS: MICAFUNGIN INJ 100 MG in SODIUM CHLORIDE 0.9% INJ 100 ML IV SCH (15:00)
--- NOTE | 2016-07-26 18:03 | HHI.CCPN ---
Subjective Remarks/Hospital Course 80 y/o NH patient with severe dehydration, UTI sepsis, respiratory failure admitted earlier. Nonverbal, minimally responsive. Cachectic, anasarca. 06/05 Patient is sedated with Diprivan and intubated. On Insulin drip. PEG tube was replaced by GI yesterday. 06/06: Remains sedated, orally intubated on mech ventilation. 06/07: Remains sedated, orally intubated on mechanical ventilation. Daily C Pap trials ongoing. 06/08: Sedated, arousable, orally intubated on mechanical ventilation. Failed C Pap trials with low tidal volumes and decreasing pressure support today. 06/09: Afebrile. Feeling CPAP trials again today due to low tidal volumes. Tolerating tube feeding and free water boluses. Positive BM. 06/10: Tmax 102. Currently 99.1. Currently a PSV trials. Extremely low tidal volumes however which requires extra pressure support. Eyes are open but does not follow commands. 06/11: no change. failed PSV trail for tachypnea. still altered, but this is baseline for him apparently. 06/12: no changes. slightly more awake, but not following commands, and still altered. discussed care with palliative who again talked with family, and they want aggressive measures. I think we will be forced to pursue tracheostomy, as I do not think it is safe to extubate this patient given mental status. 06/13: again failed SBT. RSBI 105 with persistent altered mental status. will pursue tracheostomy today. 06/14: trach yesterday. re-cultured yesterday per ID. will follow up cultures. need placement. 06/15: Tmax 99.8. Currently 99.7. Positive BM. Tolerating tube feeding. Opens eyes but does not follow commands. 06/16: MAXIMUM TEMPERATURE 100.7. Currently 98.8. Patient opens eyes but does not follow commands. 2 bowel movements yesterday. Tolerating tube feeding. 06/17: No change neurologically opens eyes- do not follow commands. Tolerating CPAP 04/24. No other acute events 06/18: Tolerated T piece up to 4 hours yesterday overnight was on Cipro 15 or 5. Intermittent episodes of nausea. KUB showed some gastric distention. I will consult GI. Patient came in with a Mckeon at the PEG site. This was reasonable placed and a standard PEG tube was placed by Dr. Henson on 06/04/1606/19: Tolerated T piece for several hours yesterday. Intermittent vomiting some abdominal distention. GI has started on Reglan for possible gastroparesis. Will check CT abd pelvis 06/20 Tolerating TP >[address] abdomen pelvis no obstruction, PEG tube in appropriate place. Subjective 07/21: reconsulted for new tachycardia, tachypnea, respiratory distress, fever. In Brief, 80yM with end-stage dementia and COPD who initially presented with altered mental status and sepsis. chronic and declining course without any improvements. family wants aggressive care despite poor overall prognosis. most recently, sputum grew out MRSA, but at the time clinically stable and ID construction safety consultant considered this colonization. today with acute worsening tachypnea, tachycardia, fever. patient at baseline neurologic status per Dr. Dolan with whom I have discussed his care. unable to obtain additional history from patient. 07/22: lactate clearing overnight. wbc downtrending. mental status remains poor, but this is baseline for patient. still on mechanical ventilation. cultures pending. ct chest/abd/pelvis without over evidence of infectious process. 07/23: Patient seen and examined today. No acute changes overnight. Patient still remains ventilator for respiratory support. Need to continue follow lactic acid level for lactic acidosis. Patient transferred to [place] for continued management facilitated by Dr. Shirley 07/24: Patient seen and examined today. No acute changes overnight. Patient still on mechanical ventilation for respiratory support. Patient clinically stabilizing at this time. Patient still with low-grade fevers. We'll start daily CPAP trials. 07/25 no issues overnight 07/26 overnight patient was hypotensive requiring multiple boluses of IV fluid Objective Vital Signs Date Time Temp Pulse Resp B/P Pulse Ox O2 Delivery O2 Flow Rate FiO2 07/26/16 17:25 100 30 07/26/16 06:00 76 14 142/68 07/26/16 04:00 98.3 07/22/16 07:15 Mechanical Ventilator Intake and Output 07/25/16 07/25/16 07/26/16 08:00 16:00 00:00 Intake Total 1128 ml 1263 ml 1089 ml Output Total 1100 ml 1000 ml 1000 ml Balance 28 ml 263 ml 89 ml Result Diagram: 07/26/1651607/26/16516 Other Results Microbiology Date/Time Procedure Status Source Growth 07/23/16 18:35 Stool Occult Blood (SELINA) - Final Complete Stool Stool HEMOCCULT NEGATIVE Imaging Last Impressions Chest X-Ray 06/13/16 0000 Signed Impressions: Service Date/Time: Monday, June 13, 2016 15:09 - CONCLUSION: 1. No pneumothorax is visualized. Tracheostomy in appropriate position. 2. Small left basilar opacity likely representing pleural effusion with associated volume loss and/or consolidation. There is atelectasis versus consolidation at the right lung base. Gary Tracy MD Objective Remarks GENERAL: 80 yo male patient, critically ill, trach+ HEAD: Normocephalic. EYES: PERRL. No scleral icterus. No injection or drainage. NECK: Supple, trachea midline. No JVD. tracheostomy in place without bleeding. CARDIOVASCULAR: normal rate, regular rhythm. no appreciable murmurs. sinus by tele. RESPIRATORY: on vent this morning, prvc 14/550/1:1/peep 5/50%. less tachypneic. GASTROINTESTINAL: Abdomen soft, non-tender, distended. PEG tube is in place above the umbilicus very little erythema. MUSCULOSKELETAL: contracted. With trace nonpitting peripheral upper and lower extremity edema. Extremities are warm. Neuro: RASS -4. does not follow commands. extends LUE, withdraws x 3. Date of Insertion: Jul 05, 2016 A/P Problem List: (1) Severe sepsis with acute organ dysfunction ICD Code: A41.9 Status: Acute (2) Acute respiratory failure ICD Code: J96.00 Status: Acute (3) UTI (urinary tract infection) ICD Code: N39.0 Status: Acute (4) Alzheimer's dementia ICD Code: F02.80 Status: Chronic (5) Fever ICD Code: R50.9 Status: Acute (6) Global aphasia ICD Code: R47.02 Status: Acute Assessment and Plan Assessment: 80yM with advanced dementia and prolonged downtrending hospital course complicated by multiple episodes of sepsis and [id number] respiratory failure requiring tracheostomy. He represented to the ICU with severe sepsis. CT chest/abd/pelvis without overt source, but clinically improving on broad spectrum antibiotics. Awaiting culture data. Patient has taken a large step back and he remains on full support mechanical ventilation, but his chronic deconditioning will undoubtedly make this difficult. he remains critically ill and at this point without full support would likely . Patient was transferred to [place] for continued ICU management. NEUROLOGY Alzheimer's dementia Hypoactive delirium Depression/anxiety -Acetaminophen for fever. Monitor neuro status. -Continue Provigil 200 mg daily in attempt increased alertness. -Avoid sedative medication PULMONARY Acute on chronic hypoxic and hypercarbic respiratory failure Ventilator dependent pneumonia -continue mechanical ventilation PRBC 15/500/5+/40%, personally tried CPAP this morning, patient tolerating, we'll start CPAP trials to T piece -Vent bundle -HOB at 30 degrees -s/p #8 Shiley percutaneous trach 06/13. (Dr. Morataya/Dr. Dai). Will remove sutures today -nebs q6h and q2h prn. CARDIOVASCULAR Hypertension -normotensive -Telemetry -Lactated Ringer 50 mL/hr -Free water flush 250 cc every 6 hours GASTROENTEROLOGY Failure to thrive Gastroesophageal reflux disease Constipation Severe acute protein calorie malnutrition -TF -Glucerna 1.5 with goal rate 50ml/hr via PEG tube-tolerating. -On Pepcid.for GI prophylaxis -Colace twice a day for bowel regimen RENAL/: BPH Acute kidney injury, resolved Hypophosphatemia -Could have been secondary to mild dehydration -Continue to Monitor renal function, -Mckeon catheter in place for monitoring strict input and output -electrolytes replacement per protocol. INFECTION DISEASE Febrile illness E. Cloacae UTI MRSA in sputum, colonized Klebsiella in sputum, colonized severe sepsis- resolving. Funguria with history of tropicalis and glabrata -Discontinued Cefepime, Flagyl per infectious disease -Continue micafungin -Consult infectious disease, I spoke with infectious disease today and she indicated discontinuing Flagyl, cefepime. Started on Bactrim suppression treatment. Recommend continuing micafungin at this time. -Lactic acid level has returned to normal Pertinent cultures 06/04 - urine - E. Cloacae 06/16 - sputum - Alla Tropicalis 06/27 blood - Staph Epi (1/2 bottles) 06/28 urine - alla glabrata 06/28 sputum - Klebsiella (intermediate to zosyn), MRSA 07/12 sputum - MRSA 07/18 sputum - MRSA, Klebsiella 07/21 sputum -MRSA, Klebsiella 07/21 blood -no growth for 2 days 07/21 urine -Alla glabrata HEMATOLOGY Normocytic anemia -hemoglobin dropped almost 4 g of hemoglobin, but remained stable this time. Could be secondary to hydration -Hemoccult stool was negative -Transfuse if hemoglobin below 8.0. -Consult GI for recommendations ENDOCRINOLOGY: Hyperglycemia of critical illness -Accu-Cheks with sliding scale insulin PROPHYLAXIS -GI prophylaxis-Pepcid q12h. -DVT prevention: start sequential compression devices, discontinue heparin at this time due to acute anemia. Rule out acute bleed SKIN Left heel blister -Consult podiatry for recommendations -Continue Multi-Podus boots LINES -Peripheral IVs and lower extremities, discontinue and start upper extremity peripheral IVs. Consider PICC line if patient requires continued IV antibiotics , frequent blood draws Level 2 Jose Selby MD Jul 26, 2016 18:03
--- NOTE | 2016-07-26 18:52 | HHI.PR ---
Subjective Remarks 80 YO male with Dementia, RF,Trach Pt aphasic Tolerates TF Tolerated CPAP for few hrs, became techpnoic On PRVC Ac, Fi02 30% Tolerates TF Objective Vital Signs Vital Signs Date Time Temp Pulse Resp B/P Pulse Ox O2 Delivery O2 Flow Rate FiO2 07/26/16 17:25 100 30 07/26/16 14:20 99 30 07/26/16 13:03 95 30 07/26/16 13:03 30 07/26/16 07:43 100 30 07/26/16 06:00 76 14 142/68 98 07/26/16 06:00 82 07/26/16 04:03 100 30 07/26/16 04:00 84 07/26/16 04:00 30 07/26/16 04:00 98.3 74 16 144/72 100 07/26/16 03:00 74 16 136/63 96 07/26/16 02:00 90 14 137/70 96 07/26/16 02:00 88 07/26/16 01:00 78 16 126/67 97 07/26/16 00:34 100 30 07/26/16 00:00 83 07/26/16 00:00 30 07/26/16 00:00 98.5 83 14 104/58 98 07/25/16 23:00 86 16 120/65 98 07/25/16 22:00 98.9 84 14 92/44 95 07/25/16 22:00 86 07/25/16 21:55 98 30 07/25/16 21:00 86 14 97/44 95 07/25/16 20:03 97 30 07/25/16 20:00 84 18 111/57 97 07/25/16 20:00 88 07/25/16 20:00 30 07/25/16 19:00 99.2 88 16 91/40 96 I/O 07/25/16 07/25/16 07/25/16 07/26/16 07/26/16 07/26/16 07:00 15:00 23:00 07:00 15:00 23:00 Intake Total 1128 ml 1263 ml 1089 ml 766 ml Output Total 1100 ml 1000 ml 1000 ml 850 ml Balance 28 ml 263 ml 89 ml -84 ml IV Total 363 ml 415 ml 507 ml 291 ml Tube Feeding 265 ml 298 ml 332 ml 225 ml Other 500 ml 550 ml 250 ml 250 ml Output Urine Total 1100 ml 1000 ml 1000 ml 850 ml # Bowel Movements 2 0 0 2 Result Diagram: 07/26/1651607/26/16516 Objective Remarks GENERAL: Elderly frail male, mild sob SKIN: Warm and dry. HEAD: Normocephalic. EYES: No scleral icterus. No injection or drainage. NECK: Supple, trachea midline. No JVD or lymphadenopathy. CARDIOVASCULAR: Regular rate and rhythm without murmurs, gallops, or rubs. RESPIRATORY: Breath sounds equal bilaterally. No accessory muscle use. GASTROINTESTINAL: Abdomen soft, non-tender, nondistended. MUSCULOSKELETAL: No cyanosis, or edema. BACK: Nontender without obvious deformity. No CVA tenderness. A/P Assessment and Plan RF,s/p Trach Aphasia Dysphagia Dementia PLAN: Aerosol nebs Tracheal suction Levsin qid Tube feeding 40 cc/hr Cont Abx Cont Vent support with PRVC AC Daily CPAP trial. Silverio Reyes MD Jul 26, 2016 18:52
[2016-07-26] MEDS: ACETAMINOPHEN 650 MG/20.3 ML UDC PO PRN (23:32)
[2016-07-27] VITALS (56 sets, daily range): BP systolic 89–179; BP diastolic 43–86; PULSE 73–134; RESP 14–44; TEMP 98.5–103.8; O2SAT 93–100
[2016-07-27] MEDS: RESP: ALBUTEROL 2.5 MG/IPRATROPIUM 0.5 MG NEB (PRN) INH ×2 (01:15→20:05)
[2016-07-27] MEDS: LACTATED RINGER'S 1000 ML INJ 1,000 ML IV SCH ×2 (03:49→21:02)
[2016-07-27] MEDS: ACETAMINOPHEN 650 MG/20.3 ML UDC PO PRN ×2 (03:50→15:31)
[2016-07-27] MEDS: CHLORHEXIDINE GLUCONATE 2 % 1 PACK (2 CLOTHS) TOP SCH (03:51)
[2016-07-27 05:01] LABS: HEMATOCRIT 28.6 % (39.0-51.0); MEAN CELL VOLUME 82.8 FL (80.0-100.0); MEAN CORPUSCULAR HEMOGLOBIN 27.8 PG (27.0-34.0); MEAN CORPUSCULAR HGB CONC 33.6 % (32.0-36.0); PLATELET COUNT 261 TH/MM3 (150-450); RED BLOOD COUNT 3.46 MIL/MM3 (4.50-5.90); RED CELL DISTRIBUTION WIDTH 16.7 % (11.6-17.2); REVIEW FLAG FINAL; WHITE BLOOD COUNT 8.8 TH/MM3 (4.0-11.0)
[2016-07-27 05:10] LABS: POTASSIUM 4.1 MEQ/L (3.5-5.1)
[2016-07-27 05:14] LABS: BICARBONATE 23.2 MEQ/L (21.0-32.0)
[2016-07-27] MEDS: FREE WATER G-TUBE SCH ×3 (05:32→23:46)
[2016-07-27] MEDS: INSULIN NovoLIN REGULAR SUPPLEMENTAL SCALE SQ SCH ×3 (05:35→23:52)
[2016-07-27] MEDS ORDERED: VANCOMYCIN INJ 1,000 MG in SODIUM CHLOR 0.9% 250 ML INJ 250 ML IV ONE (08:00)
[2016-07-27] MEDS: CHLORHEXIDINE 0.12% (ORAL KIT) 15 ML CUP MT SCH ×2 (08:00→20:59)
[2016-07-27] MEDS ORDERED: Vancomycin Consult Pharmacy 1 EA OTHER SCH (08:00)
[2016-07-27] MEDS: SULFAMETHOXAZOLE-TRIMETHOPRIM DS 800-160 MG TAB PEG SCH ×2 (09:00→20:59)
[2016-07-27] MEDS: MODAFINIL 200 MG TAB PO SCH (09:00)
[2016-07-27] MEDS: SODIUM CHLORIDE 0.9% FLUSH 5 ML FLUSH IV FLUSH SCH ×2 (09:00→21:00)
[2016-07-27] MEDS: FAMOTIDINE 20 MG TAB NG SCH ×2 (09:00→20:59)
[2016-07-27] MEDS: POVIDONE IODINE 10% SOLN 480 ML BTL TOPICAL SCH ×2 (09:00→21:00)
[2016-07-27] MEDS: MICAFUNGIN INJ 100 MG in SODIUM CHLORIDE 0.9% INJ 100 ML IV SCH (15:00)
--- NOTE | 2016-07-27 17:43 | HHI.CCPN ---
Subjective Remarks/Hospital Course 80 y/o NH patient with severe dehydration, UTI sepsis, respiratory failure admitted earlier. Nonverbal, minimally responsive. Cachectic, anasarca. 06/05 Patient is sedated with Diprivan and intubated. On Insulin drip. PEG tube was replaced by GI yesterday. 06/06: Remains sedated, orally intubated on mech ventilation. 06/07: Remains sedated, orally intubated on mechanical ventilation. Daily C Pap trials ongoing. 06/08: Sedated, arousable, orally intubated on mechanical ventilation. Failed C Pap trials with low tidal volumes and decreasing pressure support today. 06/09: Afebrile. Feeling CPAP trials again today due to low tidal volumes. Tolerating tube feeding and free water boluses. Positive BM. 06/10: Tmax 102. Currently 99.1. Currently a PSV trials. Extremely low tidal volumes however which requires extra pressure support. Eyes are open but does not follow commands. 06/11: no change. failed PSV trail for tachypnea. still altered, but this is baseline for him apparently. 06/12: no changes. slightly more awake, but not following commands, and still altered. discussed care with palliative who again talked with family, and they want aggressive measures. I think we will be forced to pursue tracheostomy, as I do not think it is safe to extubate this patient given mental status. 06/13: again failed SBT. RSBI 105 with persistent altered mental status. will pursue tracheostomy today. 06/14: trach yesterday. re-cultured yesterday per ID. will follow up cultures. need placement. 06/15: Tmax 99.8. Currently 99.7. Positive BM. Tolerating tube feeding. Opens eyes but does not follow commands. 06/16: MAXIMUM TEMPERATURE 100.7. Currently 98.8. Patient opens eyes but does not follow commands. 2 bowel movements yesterday. Tolerating tube feeding. 06/17: No change neurologically opens eyes- do not follow commands. Tolerating CPAP 04/24. No other acute events 06/18: Tolerated T piece up to 4 hours yesterday overnight was on Cipro 15 or 5. Intermittent episodes of nausea. KUB showed some gastric distention. I will consult GI. Patient came in with a Mckeon at the PEG site. This was reasonable placed and a standard PEG tube was placed by Dr. Henson on 06/04/1606/19: Tolerated T piece for several hours yesterday. Intermittent vomiting some abdominal distention. GI has started on Reglan for possible gastroparesis. Will check CT abd pelvis 06/20 Tolerating TP >[address] Bre[address] abdomen pelvis no obstruction, PEG tube in appropriate place. Subjective 07/21: reconsulted for new tachycardia, tachypnea, respiratory distress, fever. In Brief, 80yM with end-stage dementia and COPD who initially presented with altered mental status and sepsis. chronic and declining course without any improvements. family wants aggressive care despite poor overall prognosis. most recently, sputum grew out MRSA, but at the time clinically stable and ID speech correction consultant considered this colonization. today with acute worsening tachypnea, tachycardia, fever. patient at baseline neurologic status per Dr. Dolan with whom I have discussed his care. unable to obtain additional history from patient. 07/22: lactate clearing overnight. wbc downtrending. mental status remains poor, but this is baseline for patient. still on mechanical ventilation. cultures pending. ct chest/abd/pelvis without over evidence of infectious process. 07/23: Patient seen and examined today. No acute changes overnight. Patient still remains ventilator for respiratory support. Need to continue follow lactic acid level for lactic acidosis. Patient transferred to [place] for continued management facilitated by Dr. Shirley 07/24: Patient seen and examined today. No acute changes overnight. Patient still on mechanical ventilation for respiratory support. Patient clinically stabilizing at this time. Patient still with low-grade fevers. We'll start daily CPAP trials. 07/25 no issues overnight 07/27 no issues last night patient remained stable and unresponsive, opens eyes spontaneously no tracking no following commands Objective Vital Signs Date Time Temp Pulse Resp B/P Pulse Ox O2 Delivery O2 Flow Rate FiO2 07/27/16 17:09 98.5 78 15 93/43 98 07/27/16 16:25 30 Intake and Output 07/26/16 07/26/16 07/27/16 08:00 16:00 00:00 Intake Total 766 ml 1210 ml 736 ml Output Total 850 ml 1100 ml 280 ml Balance -84 ml 110 ml 456 ml Result Diagram: 07/27/16 0445 07/27/16 0445 Imaging Last Impressions Chest X-Ray 06/13/16 0000 Signed Impressions: Service Date/Time: Monday, June 13, 2016 15:09 - CONCLUSION: 1. No pneumothorax is visualized. Tracheostomy in appropriate position. 2. Small left basilar opacity likely representing pleural effusion with associated volume loss and/or consolidation. There is atelectasis versus consolidation at the right lung base. Gary Tracy MD Objective Remarks GENERAL: 80 yo male patient, critically ill, trach+ HEAD: Normocephalic. EYES: PERRL. No scleral icterus. No injection or drainage. NECK: Supple, trachea midline. No JVD. tracheostomy in place without bleeding. CARDIOVASCULAR: normal rate, regular rhythm. no appreciable murmurs. sinus by tele. RESPIRATORY: on vent this morning, prvc 14/550/1:1/peep 5/50%. less tachypneic. GASTROINTESTINAL: Abdomen soft, non-tender, distended. PEG tube is in place above the umbilicus very little erythema. MUSCULOSKELETAL: contracted. With trace nonpitting peripheral upper and lower extremity edema. Extremities are warm. Neuro: RASS -4. does not follow commands. extends LUE, withdraws x 3. Date of Insertion: Jul 05, 2016 A/P Problem List: (1) Severe sepsis with acute organ dysfunction ICD Code: A41.9 Status: Acute (2) Acute respiratory failure ICD Code: J96.00 Status: Acute (3) UTI (urinary tract infection) ICD Code: N39.0 Status: Acute (4) Alzheimer's dementia ICD Code: F02.80 Status: Chronic (5) Fever ICD Code: R50.9 Status: Acute (6) Global aphasia ICD Code: R47.02 Status: Acute Assessment and Plan Assessment: 80yM with advanced dementia and prolonged downtrending hospital course complicated by multiple episodes of sepsis and [id number] respiratory failure requiring tracheostomy. He represented to the ICU with severe sepsis. CT chest/abd/pelvis without overt source, but clinically improving on broad spectrum antibiotics. Awaiting culture data. Patient has taken a large step back and he remains on full support mechanical ventilation, but his chronic deconditioning will undoubtedly make this difficult. he remains critically ill and at this point without full support would likely . Patient was transferred to [place] for continued ICU management. NEUROLOGY Alzheimer's dementia Hypoactive delirium Depression/anxiety -Acetaminophen for fever. Monitor neuro status. -Continue Provigil 200 mg daily in attempt increased alertness. -Avoid sedative medication PULMONARY Acute on chronic hypoxic and hypercarbic respiratory failure Ventilator dependent pneumonia -continue mechanical ventilation PRBC 15/500/5+/40%, personally tried CPAP this morning, patient tolerating, we'll start CPAP trials to T piece -Vent bundle -HOB at 30 degrees -s/p #8 Shiley percutaneous trach 06/13. (Dr. [place]at[place]/Dr. Dai). Will remove sutures today -nebs q6h and q2h prn. CARDIOVASCULAR Hypertension -normotensive -Telemetry -Lactated Ringer 50 mL/hr -Free water flush 250 cc every 6 hours GASTROENTEROLOGY Failure to thrive Gastroesophageal reflux disease Constipation Severe acute protein calorie malnutrition -TF -Glucerna 1.5 with goal rate 50ml/hr via PEG tube-tolerating. -On Pepcid.for GI prophylaxis -Colace twice a day for bowel regimen RENAL/: BPH Acute kidney injury, resolved Hypophosphatemia -Could have been secondary to mild dehydration -Continue to Monitor renal function, -Mckeon catheter in place for monitoring strict input and output -electrolytes replacement per protocol. INFECTION DISEASE Febrile illness E. [place]ae UTI MRSA in sputum, colonized Klebsiella in sputum, colonized severe sepsis- resolving. Funguria with history of tropicalis and glabrata -Discontinued Cefepime, Flagyl per infectious disease -Continue micafungin -Consult infectious disease, I spoke with infectious disease today and she indicated discontinuing Flagyl, cefepime. Started on Bactrim suppression treatment. Recommend continuing micafungin at this time. -Lactic acid level has returned to normal Pertinent cultures 06/04 - urine - E. [place] 06/16 - sputum - Prachi Tropicalis 06/27 blood - Staph Epi (1/2 bottles) 06/28 urine - prachi glabrata 06/28 sputum - Klebsiella (intermediate to zosyn), MRSA 07/12 sputum - MRSA 07/18 sputum - MRSA, Klebsiella 07/21 sputum -MRSA, Klebsiella 07/21 blood -no growth for 2 days 07/21 urine -Prachi glabrata HEMATOLOGY Normocytic anemia -hemoglobin dropped almost 4 g of hemoglobin, but remained stable this time. Could be secondary to hydration -Hemoccult stool was negative -Transfuse if hemoglobin below 8.0. -Consult GI for recommendations ENDOCRINOLOGY: Hyperglycemia of critical illness -Accu-Cheks with sliding scale insulin PROPHYLAXIS -GI prophylaxis-Pepcid q12h. -DVT prevention: start sequential compression devices, discontinue heparin at this time due to acute anemia. Rule out acute bleed SKIN Left heel blister -Consult podiatry for recommendations -Continue Multi-Podus boots LINES -Peripheral IVs and lower extremities, discontinue and start upper extremity peripheral IVs. Consider PICC line if patient requires continued IV antibiotics , frequent blood draws Level 2 Jose Selby MD Jul 27, 2016 17:43
[2016-07-27] MEDS ORDERED: LACTATED RINGER'S 1000 ML INJ 1,000 ML IV SCH (18:00)
--- NOTE | 2016-07-27 18:09 | HHI.PR ---
Subjective Remarks 80 YO male with Dementia, RF,Trach Pt aphasic Tolerates TF Tolerated CPAP for few hrs, became techpnoic On PRVC Ac,14 Fi02 30% Tolerates TF Had low grade fever, Low BP Improved with fluid bolus Objective Vital Signs Vital Signs Date Time Temp Pulse Resp B/P Pulse Ox O2 Delivery O2 Flow Rate FiO2 07/27/16 17:09 98.5 78 15 93/43 98 07/27/16 17:01 99.0 80 20 89/45 97 07/27/16 16:25 96 30 07/27/16 16:18 92 07/27/16 16:01 99.4 90 33 97/47 98 07/27/16 16:00 30 07/27/16 15:01 99.0 98 28 131/82 97 07/27/16 14:01 98.9 88 23 134/75 98 07/27/16 14:00 88 07/27/16 13:32 95 30 07/27/16 13:01 98.8 82 22 116/59 96 07/27/16 12:01 98.9 82 18 119/59 96 07/27/16 12:00 30 07/27/16 12:00 84 07/27/16 11:18 99.2 78 29 117/55 99 07/27/16 10:50 98 30 07/27/16 10:01 90 24 103/57 98 07/27/16 10:01 99.2 90 24 103/57 98 07/27/16 10:00 90 07/27/16 10:00 30 07/27/16 10:00 90 26 98 07/27/16 09:01 100.5 100 20 101/52 97 07/27/16 08:01 100.6 98 21 126/73 96 07/27/16 08:00 30 07/27/16 08:00 100 07/27/16 07:57 96 30 07/27/16 07:01 100.4 98 41 121/60 97 07/27/16 06:01 102.0 96 29 128/59 100 07/27/16 06:00 94 07/27/16 05:01 94 19 114/62 96 07/27/16 05:00 96 21 96 07/27/16 04:50 23 07/27/16 04:30 97 30 07/27/16 04:02 101.7 110 34 158/78 98 07/27/16 04:00 98 07/27/16 04:00 30 07/27/16 03:01 106 25 108/53 99 07/27/16 03:01 100.9 106 25 108/53 99 07/27/16 02:01 96 26 127/56 100 07/27/16 02:01 96 26 127/56 100 07/27/16 02:00 73 07/27/16 02:00 98 27 100 07/27/16 01:14 99 30 07/27/16 01:01 90 23 124/57 98 07/27/16 01:01 90 23 124/57 98 07/27/16 01:00 90 23 98 07/27/16 00:01 90 15 112/54 93 07/27/16 00:01 101.5 90 15 112/54 93 07/27/16 00:00 30 07/27/16 00:00 90 07/27/16 00:00 90 15 94 07/26/16 23:01 86 22 141/64 99 07/26/16 22:18 98 30 07/26/16 22:01 86 27 120/57 97 07/26/16 22:00 84 07/26/16 21:42 92 41 127/62 100 07/26/16 20:01 99.8 92 37 125/64 97 07/26/16 20:00 83 07/26/16 20:00 30 07/26/16 19:55 98 30 07/26/16 19:36 86 27 122/63 100 07/26/16 19:01 88 33 115/65 100 I/O 07/26/16 07/26/16 07/26/16 07/27/16 07/27/16 07/27/16 07:00 15:00 23:00 07:00 15:00 23:00 Intake Total 766 ml 1210 ml 736 ml 1118 ml 1334 ml Output Total 850 ml 1100 ml 280 ml 1150 ml 1650 ml Balance -84 ml 110 ml 456 ml -32 ml -316 ml Intake Oral 0 ml 0 ml 0 ml IV Total 291 ml 609 ml 246 ml 374 ml 657 ml Tube Feeding 225 ml 351 ml 240 ml 294 ml 427 ml Other 250 ml 250 ml 250 ml 450 ml 250 ml Output Urine Total 850 ml 1100 ml 280 ml 1000 ml 1650 ml Stool Total 150 ml # Bowel Movements 2 1 1 2 Result Diagram: 07/27/165 07/27/165 Objective Remarks GENERAL: Elderly frail male, mild sob SKIN: Warm and dry. HEAD: Normocephalic. EYES: No scleral icterus. No injection or drainage. NECK: Supple, trachea midline. No JVD or lymphadenopathy. CARDIOVASCULAR: Regular rate and rhythm without murmurs, gallops, or rubs. RESPIRATORY: Breath sounds equal bilaterally. No accessory muscle use. GASTROINTESTINAL: Abdomen soft, non-tender, nondistended. MUSCULOSKELETAL: No cyanosis, or edema. BACK: Nontender without obvious deformity. No CVA tenderness. A/P Assessment and Plan RF,s/p Trach Aphasia Dysphagia Dementia PLAN: Aerosol nebs Tracheal suction Levsin qid Tube feeding 40 cc/hr Cont Abx Cont Vent support with PRVC AC IVF Silverio Reyes MD Jul 27, 2016 18:09
[2016-07-27] MEDS: PIPERACIL-TAZO 4.5 GM PREMIX 100 ML IV SCH (20:56)
[2016-07-27] MEDS: VANCOMYCIN INJ 1,250 MG in SODIUM CHLOR 0.9% 250 ML INJ 250 ML IV SCH (23:46)
[2016-07-28] VITALS (47 sets, daily range): BP systolic 80–113; BP diastolic 41–59; PULSE 60–134; RESP 13–38; TEMP 98.2–103.3; O2SAT 94–100
[2016-07-28] MEDS: LACTATED RINGER'S 1000 ML INJ 1,000 ML IV SCH ×4 (01:01→21:46)
[2016-07-28] MEDS: HYDROmorphone HCL PF 1 MG/ML VIAL IV PRN ×3 (01:02→21:56)
[2016-07-28] MEDS: PIPERACIL-TAZO 4.5 GM PREMIX 100 ML IV SCH ×4 (02:22→22:04)
[2016-07-28] MEDS: CHLORHEXIDINE GLUCONATE 2 % 1 PACK (2 CLOTHS) TOP SCH (04:57)
[2016-07-28] MEDS: FREE WATER G-TUBE SCH ×3 (04:58→18:00)
--- NOTE | 2016-07-28 05:00 | RADHPO ---
EXAM DATE/TIME: 07/28/2016 04:12 [facility] COMPARISON: CHEST SINGLE AP, July 21, 2016, 12:05. INDICATIONS : Shortness of breath MEDICAL HISTORY : None. SURGICAL HISTORY : PEG tube. Tracheotomoy. ENCOUNTER: Subsequent ACUITY: 1 week PAIN SCORE: Non-responsive. LOCATION: Bilateral chest FINDINGS: No focal infiltrates seen. The central bronchopulmonary markings are mildly indistinct. The heart i s normal size. Tracheostomy in place. CONCLUSION: Indistinctness of the central bronchopulmonary markings is more prominent than on prior examination s uggesting fluid overload. Henri Lane MD on July 28, 2016 at 4:58 Board Certified Radiologist. This report was verified electronically.
--- NOTE | 2016-07-28 05:01 | RADHPO ---
EXAM DATE/TIME: 07/28/2016 04:17 [facility] COMPARISON: ABDOMEN KUB ONLY, June 17, 2016, 11:51. INDICATIONS : Abdominal distension MEDICAL HISTORY : None. SURGICAL HISTORY : PEG tube ENCOUNTER: Initial ACUITY: 1 day PAIN SCORE: Non-responsive. LOCATION: Bilateral abdomen FINDINGS: No dilated loops of small or large bowel. The visualized lower lungs are clear. PEG tube in place. CONCLUSION: No gaseous distended loops of small or large bowel. Henri Lane MD on July 28, 2016 at 4:59 Board Certified Radiologist. This report was verified electronically.
[2016-07-28 05:21] LABS: AUTOMATED NEUTROPHIL # 9.9 TH/MM3 (1.8-7.7); BASOPHIL % 0.3 % (0.0-2.0); EOSINOPHIL % 0.4 % (0.0-4.0); HEMATOCRIT 28.6 % (39.0-51.0); LYMPH % 10.8 % (9.0-44.0); LYMPHOCYTE # 1.3 TH/MM3 (1.0-4.8); MEAN CELL VOLUME 82.8 FL (80.0-100.0); MEAN CORPUSCULAR HEMOGLOBIN 27.4 PG (27.0-34.0); MEAN CORPUSCULAR HGB CONC 33.1 % (32.0-36.0); MONO % 9.9 % (0.0-8.0); NEUT % 78.6 % (16.0-70.0); PLATELET COUNT 253 TH/MM3 (150-450); RED BLOOD COUNT 3.46 MIL/MM3 (4.50-5.90); WHITE BLOOD COUNT 12.4 TH/MM3 (4.0-11.0)
[2016-07-28 05:30] LABS: HEMO FLAGS DIFF FINAL
[2016-07-28 05:37] LABS: CHLORIDE 105 MEQ/L (98-107); POTASSIUM 4.4 MEQ/L (3.5-5.1); SODIUM (NA) 138 MEQ/L (136-145)
[2016-07-28 05:43] LABS: ANION GAP 8 MEQ/L (5-15); BICARBONATE 25.2 MEQ/L (21.0-32.0); MAGNESIUM 2.1 MG/DL (1.5-2.5)
[2016-07-28 05:44] LABS: BLOOD UREA NITROGEN 11 MG/DL (7-18)
[2016-07-28 05:46] LABS: ALT (GPT) 20 U/L (12-78); AST (GOT) 32 U/L (15-37); GLOMERULAR FILTRATION RATE 77 ML/MIN (>89)
[2016-07-28 05:48] LABS: TOTAL BILIRUBIN ADULT 0.4 MG/DL (0.2-1.0)
[2016-07-28 05:49] LABS: ALKALINE PHOSPHATASE 65 U/L (45-117)
[2016-07-28] MEDS: INSULIN NovoLIN REGULAR SUPPLEMENTAL SCALE SQ SCH ×3 (06:29→18:00)
--- NOTE | 2016-07-28 07:19 | HHI.CCPN ---
Subjective Remarks/Hospital Course 80 y/o NH patient with severe dehydration, UTI sepsis, respiratory failure admitted earlier. Nonverbal, minimally responsive. Cachectic, anasarca. 06/05 Patient is sedated with Diprivan and intubated. On Insulin drip. PEG tube was replaced by GI yesterday. 06/06: Remains sedated, orally intubated on mech ventilation. 06/07: Remains sedated, orally intubated on mechanical ventilation. Daily C Pap trials ongoing. 06/08: Sedated, arousable, orally intubated on mechanical ventilation. Failed C Pap trials with low tidal volumes and decreasing pressure support today. 06/09: Afebrile. Feeling CPAP trials again today due to low tidal volumes. Tolerating tube feeding and free water boluses. Positive BM. 06/10: Tmax 102. Currently 99.1. Currently a PSV trials. Extremely low tidal volumes however which requires extra pressure support. Eyes are open but does not follow commands. 06/11: no change. failed PSV trail for tachypnea. still altered, but this is baseline for him apparently. 06/12: no changes. slightly more awake, but not following commands, and still altered. discussed care with palliative who again talked with family, and they want aggressive measures. I think we will be forced to pursue tracheostomy, as I do not think it is safe to extubate this patient given mental status. 06/13: again failed SBT. RSBI 105 with persistent altered mental status. will pursue tracheostomy today. 06/14: trach yesterday. re-cultured yesterday per ID. will follow up cultures. need placement. 06/15: Tmax 99.8. Currently 99.7. Positive BM. Tolerating tube feeding. Opens eyes but does not follow commands. 06/16: MAXIMUM TEMPERATURE 100.7. Currently 98.8. Patient opens eyes but does not follow commands. 2 bowel movements yesterday. Tolerating tube feeding. 06/17: No change neurologically opens eyes- do not follow commands. Tolerating CPAP 04/24. No other acute events 06/18: Tolerated T piece up to 4 hours yesterday overnight was on Cipro 15 or 5. Intermittent episodes of nausea. KUB showed some gastric distention. I will consult GI. Patient came in with a Mckeon at the PEG site. This was reasonable placed and a standard PEG tube was placed by Dr. Henson on 06/04/1606/19: Tolerated T piece for several hours yesterday. Intermittent vomiting some abdominal distention. GI has started on Reglan for possible gastroparesis. Will check CT abd pelvis 06/20 Tolerating TP >[address] hrs[address] Bre[address] abdomen pelvis no obstruction, PEG tube in appropriate place. Subjective 07/21: reconsulted for new tachycardia, tachypnea, respiratory distress, fever. In Brief, 80yM with end-stage dementia and COPD who initially presented with altered mental status and sepsis. chronic and declining course without any improvements. family wants aggressive care despite poor overall prognosis. most recently, sputum grew out MRSA, but at the time clinically stable and ID guidance consultant considered this colonization. today with acute worsening tachypnea, tachycardia, fever. patient at baseline neurologic status per Dr. Dolan with whom I have discussed his care. unable to obtain additional history from patient. 07/22: lactate clearing overnight. wbc downtrending. mental status remains poor, but this is baseline for patient. still on mechanical ventilation. cultures pending. ct chest/abd/pelvis without over evidence of infectious process. 07/23: Patient seen and examined today. No acute changes overnight. Patient still remains ventilator for respiratory support. Need to continue follow lactic acid level for lactic acidosis. Patient transferred to [facility] for continued management facilitated by Dr. Shirley 07/24: Patient seen and examined today. No acute changes overnight. Patient still on mechanical ventilation for respiratory support. Patient clinically stabilizing at this time. Patient still with low-grade fevers. We'll start daily CPAP trials. 07/25 no issues overnight Objective Vital Signs Date Time Temp Pulse Resp B/P Pulse Ox O2 Delivery O2 Flow Rate FiO2 07/28/16 06:00 84 14 93/59 97 07/28/16 04:40 30 07/28/16 04:05 98.3 Intake and Output 07/27/16 07/27/16 07/28/16 08:00 16:00 00:00 Intake Total 1118 ml 1334 ml 1557 ml Output Total 1150 ml 1650 ml 650 ml Balance -32 ml -316 ml 907 ml Result Diagram: 07/28/16 0509 07/28/16 0509 Imaging Last Impressions Chest X-Ray 06/13/16 0000 Signed Impressions: Service Date/Time: Monday, June 13, 2016 15:09 - CONCLUSION: 1. No pneumothorax is visualized. Tracheostomy in appropriate position. 2. Small left basilar opacity likely representing pleural effusion with associated volume loss and/or consolidation. There is atelectasis versus consolidation at the right lung base. Gary Tracy MD Objective Remarks GENERAL: 80 yo male patient, critically ill, trach+ HEAD: Normocephalic. EYES: PERRL. No scleral icterus. No injection or drainage. NECK: Supple, trachea midline. No JVD. tracheostomy in place without bleeding. CARDIOVASCULAR: normal rate, regular rhythm. no appreciable murmurs. sinus by tele. RESPIRATORY: on vent this morning, prvc 14/550/1:1/peep 5/50%. less tachypneic. GASTROINTESTINAL: Abdomen soft, non-tender, distended. PEG tube is in place above the umbilicus very little erythema. MUSCULOSKELETAL: contracted. With trace nonpitting peripheral upper and lower extremity edema. Extremities are warm. Neuro: RASS -4. does not follow commands. extends LUE, withdraws x 3. Date of Insertion: Jul 05, 2016 A/P Problem List: (1) Severe sepsis with acute organ dysfunction ICD Code: A41.9 Status: Acute (2) Acute respiratory failure ICD Code: J96.00 Status: Acute (3) UTI (urinary tract infection) ICD Code: N39.0 Status: Acute (4) Alzheimer's dementia ICD Code: F02.80 Status: Chronic (5) Fever ICD Code: R50.9 Status: Acute (6) Global aphasia ICD Code: R47.02 Status: Acute Assessment and Plan Assessment: 80yM with advanced dementia and prolonged downtrending hospital course complicated by multiple episodes of sepsis and [id number] respiratory failure requiring tracheostomy. He represented to the ICU with severe sepsis. CT chest/abd/pelvis without overt source, but clinically improving on broad spectrum antibiotics. Awaiting culture data. Patient has taken a large step back and he remains on full support mechanical ventilation, but his chronic deconditioning will undoubtedly make this difficult. he remains critically ill and at this point without full support would likely . Patient was transferred to [facility] for continued ICU management. NEUROLOGY Alzheimer's dementia Hypoactive delirium Depression/anxiety -Acetaminophen for fever. Monitor neuro status. -Continue Provigil 200 mg daily in attempt increased alertness. -Avoid sedative medication PULMONARY Acute on chronic hypoxic and hypercarbic respiratory failure Ventilator dependent pneumonia -continue mechanical ventilation PRBC 15/500/5+/40%, personally tried CPAP this morning, patient tolerating, we'll start CPAP trials to T piece -Vent bundle -HOB at 30 degrees -s/p #8 Shiley percutaneous trach 06/13. (Dr. Morataya/Dr. Dai). Will remove sutures today -nebs q6h and q2h prn. CARDIOVASCULAR Hypertension -normotensive -Telemetry -Lactated Ringer 50 mL/hr -Free water flush 250 cc every 6 hours GASTROENTEROLOGY Failure to thrive Gastroesophageal reflux disease Constipation Severe acute protein calorie malnutrition -TF -Glucerna 1.5 with goal rate 50ml/hr via PEG tube-tolerating. -On Pepcid.for GI prophylaxis -Colace twice a day for bowel regimen RENAL/: BPH Acute kidney injury, resolved Hypophosphatemia -Could have been secondary to mild dehydration -Continue to Monitor renal function, -Mckeon catheter in place for monitoring strict input and output -electrolytes replacement per protocol. INFECTION DISEASE Febrile illness E. Cloacae UTI MRSA in sputum, colonized Klebsiella in sputum, colonized severe sepsis- resolving. Funguria with history of tropicalis and glabrata -Discontinued Cefepime, Flagyl per infectious disease -Continue micafungin -Consult infectious disease, I spoke with infectious disease today and she indicated discontinuing Flagyl, cefepime. Started on Bactrim suppression treatment. Recommend continuing micafungin at this time. -Lactic acid level has returned to normal Pertinent cultures 06/04 - urine - E. Cloacae 06/16 - sputum - Prachi Tropicalis 06/27 blood - Staph Epi (1/2 bottles) 06/28 urine - prachi glabrata 06/28 sputum - Klebsiella (intermediate to zosyn), MRSA 07/12 sputum - MRSA 07/18 sputum - MRSA, Klebsiella 07/21 sputum -MRSA, Klebsiella 07/21 blood -no growth for 2 days 07/21 urine -Prachi glabrata HEMATOLOGY Normocytic anemia -hemoglobin dropped almost 4 g of hemoglobin, but remained stable this time. Could be secondary to hydration -Hemoccult stool was negative -Transfuse if hemoglobin below 8.0. -Consult GI for recommendations ENDOCRINOLOGY: Hyperglycemia of critical illness -Accu-Cheks with sliding scale insulin PROPHYLAXIS -GI prophylaxis-Pepcid q12h. -DVT prevention: start sequential compression devices, discontinue heparin at this time due to acute anemia. Rule out acute bleed SKIN Left heel blister -Consult podiatry for recommendations -Continue Multi-Podus boots LINES -Peripheral IVs and lower extremities, discontinue and start upper extremity peripheral IVs. Consider PICC line if patient requires continued IV antibiotics , frequent blood draws Level 2 Jose Selby MD Jul 28, 2016 07:19
[2016-07-28] MEDS: FAMOTIDINE 20 MG TAB NG SCH ×2 (08:39→21:46)
[2016-07-28] MEDS: MODAFINIL 200 MG TAB PO SCH (08:39)
[2016-07-28] MEDS: SULFAMETHOXAZOLE-TRIMETHOPRIM DS 800-160 MG TAB PEG SCH ×2 (08:40→21:46)
[2016-07-28] MEDS: CHLORHEXIDINE 0.12% (ORAL KIT) 15 ML CUP MT SCH ×2 (08:45→21:47)
[2016-07-28] MEDS: POVIDONE IODINE 10% SOLN 480 ML BTL TOPICAL SCH ×2 (09:00→21:00)
[2016-07-28] MEDS: SODIUM CHLORIDE 0.9% FLUSH 5 ML FLUSH IV FLUSH SCH ×2 (09:00→21:00)
[2016-07-28] MEDS: MICAFUNGIN INJ 100 MG in SODIUM CHLORIDE 0.9% INJ 100 ML IV SCH (14:14)
[2016-07-28] MEDS: VANCOMYCIN INJ 1,250 MG in SODIUM CHLOR 0.9% 250 ML INJ 250 ML IV SCH (18:00)
[2016-07-28] MEDS ORDERED: ALBUMIN HUMAN 25% 25 GM/100 ML BAGP IV ONE (18:30)
--- NOTE | 2016-07-28 19:50 | HHI.PR ---
Subjective Remarks 80 YO male with Dementia, RF,Trach Pt aphasic Tolerates TF Tolerated CPAP for few hrs, became techpnoic On PRVC Ac,14 Fi02 30% Tolerates TF BP low, MAP 58 Objective Vital Signs Vital Signs Date Time Temp Pulse Resp B/P Pulse Ox O2 Delivery O2 Flow Rate FiO2 07/28/16 17:30 70 27 81/44 97 07/28/16 17:09 98 30 07/28/16 17:00 68 15 82/41 96 07/28/16 16:30 70 20 96/42 97 07/28/16 16:00 98.6 68 16 80/41 97 07/28/16 15:30 74 31 96/43 97 07/28/16 15:00 76 31 96/51 96 07/28/16 14:59 78 26 85/48 97 07/28/16 14:00 76 28 97/53 97 07/28/16 13:47 97 30 07/28/16 13:30 76 32 100/56 98 07/28/16 13:00 74 30 93/53 97 07/28/16 12:30 78 26 100/54 97 07/28/16 12:00 98.8 70 13 84/47 96 07/28/16 11:30 76 24 99/54 98 07/28/16 11:16 97 30 07/28/16 11:00 74 20 87/54 96 07/28/16 10:30 72 19 100/56 98 07/28/16 10:00 82 22 91/55 96 07/28/16 09:30 84 28 104/54 99 07/28/16 09:00 98.4 82 13 84/51 94 07/28/16 09:00 82 13 94 07/28/16 08:18 97 30 07/28/16 08:00 98.5 84 14 103/59 98 07/28/16 08:00 92 07/28/16 08:00 30 07/28/16 07:00 98.9 82 13 83/55 99 07/28/16 06:00 84 14 93/59 97 07/28/16 06:00 85 07/28/16 05:37 98 16 102/56 97 07/28/16 04:40 96 30 07/28/16 04:05 98.3 88 14 91/58 100 07/28/16 04:00 83 07/28/16 04:00 30 07/28/16 03:05 100.9 100 14 94/57 99 07/28/16 02:05 103.3 110 16 87/52 96 07/28/16 02:00 95 07/28/16 01:32 15 07/28/16 01:05 112 29 99/48 96 07/28/16 01:00 96 30 07/28/16 00:05 101.7 112 38 110/55 95 07/28/16 00:00 30 07/28/16 00:00 134 07/27/16 23:00 103.8 134 44 150/73 100 07/27/16 22:05 108 29 131/59 97 07/27/16 22:02 97 30 07/27/16 22:00 134 07/27/16 21:05 114 31 168/59 100 07/27/16 20:56 116 33 172/62 100 07/27/16 20:50 116 35 170/62 100 07/27/16 20:47 110 33 179/55 100 07/27/16 20:32 100 30 155/62 100 07/27/16 20:17 92 14 104/44 100 07/27/16 20:05 95 30 07/27/16 20:02 99.8 92 22 99/44 97 07/27/16 20:00 30 07/27/16 20:00 101 I/O 07/27/16 07/27/16 07/27/16 07/28/16 07/28/16 07/28/16 07:00 15:00 23:00 07:00 15:00 23:00 Intake Total 1118 ml 1334 ml 1557 ml 1548 ml Output Total 1150 ml 1650 ml 650 ml 1000 ml Balance -32 ml -316 ml 907 ml 548 ml Intake Oral 0 ml 0 ml IV Total 374 ml 657 ml 1127 ml 1148 ml Tube Feeding 294 ml 427 ml 180 ml Other 450 ml 250 ml 250 ml 400 ml Output Urine Total 1000 ml 1650 ml 550 ml 500 ml Stool Total 150 ml 100 ml 100 ml Gastric Drainage Total 400 ml # Bowel Movements 2 Result Diagram: 07/28/16 0509 07/28/16 0509 Objective Remarks GENERAL: Elderly frail male, mild sob SKIN: Warm and dry. HEAD: Normocephalic. EYES: No scleral icterus. No injection or drainage. NECK: Supple, trachea midline. No JVD or lymphadenopathy. CARDIOVASCULAR: Regular rate and rhythm without murmurs, gallops, or rubs. RESPIRATORY: Breath sounds equal bilaterally. No accessory muscle use. GASTROINTESTINAL: Abdomen soft, non-tender, nondistended. MUSCULOSKELETAL: No cyanosis, or edema. BACK: Nontender without obvious deformity. No CVA tenderness. A/P Assessment and Plan RF,s/p Trach Aphasia Dysphagia Dementia PLAN: Aerosol nebs Tracheal suction Levsin qid Tube feeding 40 cc/hr Cont Abx Cont Vent support with PRVC AC IV Albumin Silverio Reyes MD Jul 28, 2016 19:50
[2016-07-29] VITALS (70 sets, daily range): BP systolic 82–140; BP diastolic 41–73; PULSE 56–101; RESP 13–30; TEMP 98.1–98.8; O2SAT 95–100
[2016-07-29] MEDS: INSULIN NovoLIN REGULAR SUPPLEMENTAL SCALE SQ SCH ×5 (01:09→23:41)
[2016-07-29] MEDS: PIPERACIL-TAZO 4.5 GM PREMIX 100 ML IV SCH ×4 (02:00→21:13)
[2016-07-29] MEDS: CHLORHEXIDINE GLUCONATE 2 % 1 PACK (2 CLOTHS) TOP SCH (04:00)
[2016-07-29] MEDS: LACTATED RINGER'S 1000 ML INJ 1,000 ML IV SCH ×2 (05:00→15:00)
[2016-07-29] MEDS: FREE WATER G-TUBE SCH ×5 (06:00→23:41)
[2016-07-29] MEDS: CHLORHEXIDINE 0.12% (ORAL KIT) 15 ML CUP MT SCH ×2 (08:00→21:13)
[2016-07-29] MEDS: FAMOTIDINE 20 MG TAB NG SCH ×2 (08:45→21:13)
[2016-07-29] MEDS: SULFAMETHOXAZOLE-TRIMETHOPRIM DS 800-160 MG TAB PEG SCH ×2 (08:45→21:13)
[2016-07-29] MEDS: HYDROmorphone HCL PF 1 MG/ML VIAL IV PRN ×2 (08:46→17:30)
[2016-07-29] MEDS: MODAFINIL 200 MG TAB PO SCH (08:46)
[2016-07-29] MEDS: POVIDONE IODINE 10% SOLN 480 ML BTL TOPICAL SCH ×2 (09:00→21:14)
[2016-07-29] MEDS: SODIUM CHLORIDE 0.9% FLUSH 5 ML FLUSH IV FLUSH SCH ×2 (09:00→21:13)
[2016-07-29] MEDS: VANCOMYCIN INJ 1,250 MG in SODIUM CHLOR 0.9% 250 ML INJ 250 ML IV SCH (13:06)
--- NOTE | 2016-07-29 14:47 | HHI.PR ---
Subjective Remarks 80 YO male with Dementia, RF,Trach Pt aphasic Tolerates TF Tolerates CPAP Objective Vital Signs Vital Signs Date Time Temp Pulse Resp B/P Pulse Ox O2 Delivery O2 Flow Rate FiO2 07/29/16 14:35 99 30 07/29/16 11:25 98 30 07/29/16 08:55 30 07/29/16 08:55 100 30 07/29/16 07:00 72 15 108/57 96 07/29/16 06:45 74 16 97 07/29/16 06:30 82 26 135/71 100 07/29/16 06:15 74 21 100 07/29/16 06:00 72 18 125/70 100 07/29/16 06:00 72 07/29/16 05:45 70 17 100 07/29/16 05:30 72 18 127/64 100 07/29/16 05:15 60 13 98 07/29/16 05:00 62 13 121/63 98 07/29/16 04:45 70 14 100 07/29/16 04:30 72 14 124/65 100 07/29/16 04:30 72 14 124/65 100 07/29/16 04:25 100 30 07/29/16 04:15 68 14 100 07/29/16 04:00 68 07/29/16 04:00 98.1 07/29/16 04:00 68 15 117/61 100 07/29/16 04:00 30 07/29/16 03:45 70 14 100 07/29/16 03:30 68 14 124/66 100 07/29/16 03:15 66 15 100 07/29/16 03:00 66 15 119/64 100 07/29/16 02:45 78 19 100 07/29/16 02:30 62 13 114/58 98 07/29/16 02:15 60 13 99 07/29/16 02:00 56 07/29/16 02:00 60 13 106/55 97 07/29/16 01:45 64 13 97 07/29/16 01:30 66 14 134/66 99 07/29/16 01:15 82 21 07/29/16 01:00 56 13 82/41 97 07/29/16 00:45 58 13 96 07/29/16 00:30 62 13 96/50 97 07/29/16 00:00 68 14 113/56 98 07/29/16 00:00 98.1 07/29/16 00:00 30 07/29/16 00:00 62 07/28/16 23:30 60 13 95/45 07/28/16 23:00 60 13 95/43 07/28/16 22:30 68 15 106/55 07/28/16 22:26 100 30 07/28/16 22:00 66 07/28/16 22:00 66 15 97/46 98 07/28/16 21:30 72 22 113/55 99 07/28/16 21:00 66 18 93/47 98 07/28/16 20:30 68 19 91/46 97 07/28/16 20:05 100 30 07/28/16 20:00 30 07/28/16 20:00 68 07/28/16 20:00 68 26 100 07/28/16 20:00 98.5 07/28/16 18:00 98.8 64 26 82/41 97 07/28/16 18:00 66 07/28/16 17:30 98.4 70 27 81/44 97 07/28/16 17:09 98 30 07/28/16 17:00 68 15 82/41 96 07/28/16 16:30 98.6 70 20 96/42 97 07/28/16 16:00 98.6 68 16 80/41 97 07/28/16 16:00 68 07/28/16 16:00 30 07/28/16 15:30 74 31 96/43 97 07/28/16 15:00 76 31 96/51 96 07/28/16 14:59 78 26 85/48 97 I/O 07/28/16 07/28/16 07/28/16 07/29/16 07/29/16 07/29/16 06:59 14:59 22:59 06:59 14:59 22:59 Intake Total 1548 ml 720 ml 482 ml 1777 ml Output Total 1000 ml 750 ml 325 ml 500 ml Balance 548 ml -30 ml 157 ml 1277 ml Intake Oral 0 ml IV Total 1148 ml 470 ml 382 ml 1677 ml Tube Feeding 0 ml Other 400 ml 250 ml 100 ml 100 ml Output Urine Total 500 ml 550 ml 250 ml 375 ml Stool Total 100 ml 50 ml 50 ml Gastric Drainage Total 400 ml 200 ml 25 ml 75 ml Result Diagram: 07/28/16 0509 07/28/16 0509 Objective Remarks GENERAL: Elderly frail male, mild sob SKIN: Warm and dry. HEAD: Normocephalic. EYES: No scleral icterus. No injection or drainage. NECK: Supple, trachea midline. No JVD or lymphadenopathy. CARDIOVASCULAR: Regular rate and rhythm without murmurs, gallops, or rubs. RESPIRATORY: Breath sounds equal bilaterally. No accessory muscle use. GASTROINTESTINAL: Abdomen soft, non-tender, nondistended. MUSCULOSKELETAL: No cyanosis, or edema. BACK: Nontender without obvious deformity. No CVA tenderness. A/P Assessment and Plan RF,s/p Trach Aphasia Dysphagia Dementia PLAN: Aerosol nebs Tracheal suction Levsin qid Tube feeding 40 cc/hr Cont Abx Cont CPAP Silverio Reyes MD Jul 29, 2016 14:47
--- NOTE | 2016-07-29 17:31 | HHI.CCPN ---
Subjective Remarks/Hospital Course 80 y/o NH patient with severe dehydration, UTI sepsis, respiratory failure admitted earlier. Nonverbal, minimally responsive. Cachectic, anasarca. 06/05 Patient is sedated with Diprivan and intubated. On Insulin drip. PEG tube was replaced by GI yesterday. 06/06: Remains sedated, orally intubated on mech ventilation. 06/07: Remains sedated, orally intubated on mechanical ventilation. Daily C Pap trials ongoing. 06/08: Sedated, arousable, orally intubated on mechanical ventilation. Failed C Pap trials with low tidal volumes and decreasing pressure support today. 06/09: Afebrile. Feeling CPAP trials again today due to low tidal volumes. Tolerating tube feeding and free water boluses. Positive BM. 06/10: Tmax 102. Currently 99.1. Currently a PSV trials. Extremely low tidal volumes however which requires extra pressure support. Eyes are open but does not follow commands. 06/11: no change. failed PSV trail for tachypnea. still altered, but this is baseline for him apparently. 06/12: no changes. slightly more awake, but not following commands, and still altered. discussed care with palliative who again talked with family, and they want aggressive measures. I think we will be forced to pursue tracheostomy, as I do not think it is safe to extubate this patient given mental status. 06/13: again failed SBT. RSBI 105 with persistent altered mental status. will pursue tracheostomy today. 06/14: trach yesterday. re-cultured yesterday per ID. will follow up cultures. need placement. 06/15: Tmax 99.8. Currently 99.7. Positive BM. Tolerating tube feeding. Opens eyes but does not follow commands. 06/16: MAXIMUM TEMPERATURE 100.7. Currently 98.8. Patient opens eyes but does not follow commands. 2 bowel movements yesterday. Tolerating tube feeding. 06/17: No change neurologically opens eyes- do not follow commands. Tolerating CPAP 04/24. No other acute events 06/18: Tolerated T piece up to 4 hours yesterday overnight was on Cipro 15 or 5. Intermittent episodes of nausea. KUB showed some gastric distention. I will consult GI. Patient came in with a Mckeon at the PEG site. This was reasonable placed and a standard PEG tube was placed by Dr. Henson on 06/04/1606/19: Tolerated T piece for several hours yesterday. Intermittent vomiting some abdominal distention. GI has started on Reglan for possible gastroparesis. Will check CT abd pelvis 06/20 Tolerating TP >[address] Breathing comfortably. [address] abdomen pelvis no obstruction, PEG tube in appropriate place. Subjective 07/21: reconsulted for new tachycardia, tachypnea, respiratory distress, fever. In Brief, 80yM with end-stage dementia and COPD who initially presented with altered mental status and sepsis. chronic and declining course without any improvements. family wants aggressive care despite poor overall prognosis. most recently, sputum grew out MRSA, but at the time clinically stable and ID claims consultant considered this colonization. today with acute worsening tachypnea, tachycardia, fever. patient at baseline neurologic status per Dr. Dolan with whom I have discussed his care. unable to obtain additional history from patient. 07/22: lactate clearing overnight. wbc downtrending. mental status remains poor, but this is baseline for patient. still on mechanical ventilation. cultures pending. ct chest/abd/pelvis without over evidence of infectious process. 07/23: Patient seen and examined today. No acute changes overnight. Patient still remains ventilator for respiratory support. Need to continue follow lactic acid level for lactic acidosis. Patient transferred to [place] for continued management facilitated by Dr. Shirley 07/24: Patient seen and examined today. No acute changes overnight. Patient still on mechanical ventilation for respiratory support. Patient clinically stabilizing at this time. Patient still with low-grade fevers. We'll start daily CPAP trials. 07/25 no issues overnight 07/27 no issues last night patient remained stable and unresponsive, opens eyes spontaneously no tracking no following commands Objective Vital Signs Date Time Temp Pulse Resp B/P Pulse Ox O2 Delivery O2 Flow Rate FiO2 07/29/16 17:04 98 30 07/29/16 17:01 68 26 106/53 07/29/16 16:01 98.8 Intake and Output 07/28/16 07/28/16 07/29/16 08:00 16:00 00:00 Intake Total 1548 ml 720 ml 482 ml Output Total 1000 ml 750 ml 325 ml Balance 548 ml -30 ml 157 ml Result Diagram: 07/28/16 0509 07/28/16 0509 Imaging Last Impressions Chest X-Ray 06/13/16 0000 Signed Impressions: Service Date/Time: Monday, June 13, 2016 15:09 - CONCLUSION: 1. No pneumothorax is visualized. Tracheostomy in appropriate position. 2. Small left basilar opacity likely representing pleural effusion with associated volume loss and/or consolidation. There is atelectasis versus consolidation at the right lung base. Gary Tracy MD Objective Remarks GENERAL: 80 yo male patient, critically ill, trach+ HEAD: Normocephalic. EYES: PERRL. No scleral icterus. No injection or drainage. NECK: Supple, trachea midline. No JVD. tracheostomy in place without bleeding. CARDIOVASCULAR: normal rate, regular rhythm. no appreciable murmurs. sinus by tele. RESPIRATORY: on vent this morning, prvc 14/550/1:1/peep 5/50%. less tachypneic. GASTROINTESTINAL: Abdomen soft, non-tender, distended. PEG tube is in place above the umbilicus very little erythema. MUSCULOSKELETAL: contracted. With trace nonpitting peripheral upper and lower extremity edema. Extremities are warm. Neuro: RASS -4. does not follow commands. extends LUE, withdraws x 3. Date of Insertion: Jul 05, 2016 A/P Problem List: (1) Severe sepsis with acute organ dysfunction ICD Code: A41.9 Status: Acute (2) Acute respiratory failure ICD Code: J96.00 Status: Acute (3) UTI (urinary tract infection) ICD Code: N39.0 Status: Acute (4) Alzheimer's dementia ICD Code: F02.80 Status: Chronic (5) Fever ICD Code: R50.9 Status: Acute (6) Global aphasia ICD Code: R47.02 Status: Acute Assessment and Plan Assessment: 80yM with advanced dementia and prolonged downtrending hospital course complicated by multiple episodes of sepsis and [id number] respiratory failure requiring tracheostomy. He represented to the ICU with severe sepsis. CT chest/abd/pelvis without overt source, but clinically improving on broad spectrum antibiotics. Awaiting culture data. Patient has taken a large step back and he remains on full support mechanical ventilation, but his chronic deconditioning will undoubtedly make this difficult. he remains critically ill and at this point without full support would likely . Patient was transferred to [place] for continued ICU management. NEUROLOGY Alzheimer's dementia Hypoactive delirium Depression/anxiety -Acetaminophen for fever. Monitor neuro status. -Continue Provigil 200 mg daily in attempt increased alertness. -Avoid sedative medication PULMONARY Acute on chronic hypoxic and hypercarbic respiratory failure Ventilator dependent pneumonia -continue mechanical ventilation PRBC 15/500/5+/40%, personally tried CPAP this morning, patient tolerating, we'll start CPAP trials to T piece -Vent bundle -HOB at 30 degrees -s/p #8 Shiley percutaneous trach 06/13. (Dr. Morataya/Dr. Dai). Will remove sutures today -nebs q6h and q2h prn. CARDIOVASCULAR Hypertension -normotensive -Telemetry -Lactated Ringer 50 mL/hr -Free water flush 250 cc every 6 hours GASTROENTEROLOGY Failure to thrive Gastroesophageal reflux disease Constipation Severe acute protein calorie malnutrition -TF -Glucerna 1.5 with goal rate 50ml/hr via PEG tube-tolerating. -On Pepcid.for GI prophylaxis -Colace twice a day for bowel regimen RENAL/: BPH Acute kidney injury, resolved Hypophosphatemia -Could have been secondary to mild dehydration -Continue to Monitor renal function, -Mckeon catheter in place for monitoring strict input and output -electrolytes replacement per protocol. INFECTION DISEASE Febrile illness E. Cloacae UTI MRSA in sputum, colonized Klebsiella in sputum, colonized severe sepsis- resolving. Funguria with history of tropicalis and glabrata -Discontinued Cefepime, Flagyl per infectious disease -Continue micafungin -Consult infectious disease, I spoke with infectious disease today and she indicated discontinuing Flagyl, cefepime. Started on Bactrim suppression treatment. Recommend continuing micafungin at this time. -Lactic acid level has returned to normal Pertinent cultures 06/04 - urine - E. Clo[place]ae 06/16 - sputum - Prachi Tropicalis 06/27 blood - Staph Epi (1/2 bottles) 06/28 urine - prachi glabrata 06/28 sputum - Klebsiella (intermediate to zosyn), MRSA 07/12 sputum - MRSA 07/18 sputum - MRSA, Klebsiella 07/21 sputum -MRSA, Klebsiella 07/21 blood -no growth for 2 days 07/21 urine -Prachi glabrata HEMATOLOGY Normocytic anemia -hemoglobin dropped almost 4 g of hemoglobin, but remained stable this time. Could be secondary to hydration -Hemoccult stool was negative -Transfuse if hemoglobin below 8.0. -Consult GI for recommendations ENDOCRINOLOGY: Hyperglycemia of critical illness -Accu-Cheks with sliding scale insulin PROPHYLAXIS -GI prophylaxis-Pepcid q12h. -DVT prevention: start sequential compression devices, discontinue heparin at this time due to acute anemia. Rule out acute bleed SKIN Left heel blister -Consult podiatry for recommendations -Continue Multi-Podus boots LINES -Peripheral IVs and lower extremities, discontinue and start upper extremity peripheral IVs. Consider PICC line if patient requires continued IV antibiotics , frequent blood draws Level 2 Jose Selby MD Jul 29, 2016 17:31
[2016-07-29] MEDS: MICAFUNGIN INJ 100 MG in SODIUM CHLORIDE 0.9% INJ 100 ML IV SCH (18:15)
[2016-07-30] VITALS (56 sets, daily range): BP systolic 40–145; BP diastolic 33–97; PULSE 54–88; RESP 13–29; TEMP 95.1–98.7; O2SAT 96–100
[2016-07-30] MEDS: LACTATED RINGER'S 1000 ML INJ 1,000 ML IV SCH ×3 (01:41→20:42)
[2016-07-30] MEDS: PIPERACIL-TAZO 4.5 GM PREMIX 100 ML IV SCH ×4 (01:42→20:40)
[2016-07-30] MEDS: CHLORHEXIDINE GLUCONATE 2 % 1 PACK (2 CLOTHS) TOP SCH (03:58)
[2016-07-30] MEDS ORDERED: VANCOMYCIN TROUGH XX ONE (05:45)
[2016-07-30] MEDS: FREE WATER G-TUBE SCH ×4 (05:51→23:21)
[2016-07-30] MEDS: VANCOMYCIN INJ 1,250 MG in SODIUM CHLOR 0.9% 250 ML INJ 250 ML IV SCH ×2 (05:51→23:30)
[2016-07-30] MEDS: INSULIN NovoLIN REGULAR SUPPLEMENTAL SCALE SQ SCH ×3 (06:00→23:27)
[2016-07-30] MEDS: CHLORHEXIDINE 0.12% (ORAL KIT) 15 ML CUP MT SCH ×2 (08:00→20:42)
[2016-07-30] MEDS: FAMOTIDINE 20 MG TAB NG SCH ×2 (09:00→20:40)
[2016-07-30] MEDS: SODIUM CHLORIDE 0.9% FLUSH 5 ML FLUSH IV FLUSH SCH ×2 (09:00→20:41)
[2016-07-30] MEDS: POVIDONE IODINE 10% SOLN 480 ML BTL TOPICAL SCH ×2 (09:00→20:41)
[2016-07-30] MEDS: SULFAMETHOXAZOLE-TRIMETHOPRIM DS 800-160 MG TAB PEG SCH ×2 (09:00→20:40)
[2016-07-30] MEDS: MODAFINIL 200 MG TAB PO SCH (09:00)
[2016-07-30] MEDS: MICAFUNGIN INJ 100 MG in SODIUM CHLORIDE 0.9% INJ 100 ML IV SCH (17:04)
--- NOTE | 2016-07-30 17:47 | HHI.CCPN ---
Subjective Remarks/Hospital Course 80 y/o NH patient with severe dehydration, UTI sepsis, respiratory failure admitted earlier. Nonverbal, minimally responsive. Cachectic, anasarca. 06/05 Patient is sedated with Diprivan and intubated. On Insulin drip. PEG tube was replaced by GI yesterday. 06/06: Remains sedated, orally intubated on mech ventilation. 06/07: Remains sedated, orally intubated on mechanical ventilation. Daily C Pap trials ongoing. 06/08: Sedated, arousable, orally intubated on mechanical ventilation. Failed C Pap trials with low tidal volumes and decreasing pressure support today. 06/09: Afebrile. Feeling CPAP trials again today due to low tidal volumes. Tolerating tube feeding and free water boluses. Positive BM. 06/10: Tmax 102. Currently 99.1. Currently a PSV trials. Extremely low tidal volumes however which requires extra pressure support. Eyes are open but does not follow commands. 06/11: no change. failed PSV trail for tachypnea. still altered, but this is baseline for him apparently. 06/12: no changes. slightly more awake, but not following commands, and still altered. discussed care with palliative who again talked with family, and they want aggressive measures. I think we will be forced to pursue tracheostomy, as I do not think it is safe to extubate this patient given mental status. 06/13: again failed SBT. RSBI 105 with persistent altered mental status. will pursue tracheostomy today. 06/14: trach yesterday. re-cultured yesterday per ID. will follow up cultures. need placement. 06/15: Tmax 99.8. Currently 99.7. Positive BM. Tolerating tube feeding. Opens eyes but does not follow commands. 06/16: MAXIMUM TEMPERATURE 100.7. Currently 98.8. Patient opens eyes but does not follow commands. 2 bowel movements yesterday. Tolerating tube feeding. 06/17: No change neurologically opens eyes- do not follow commands. Tolerating CPAP 04/24. No other acute events 06/18: Tolerated T piece up to 4 hours yesterday overnight was on Cipro 15 or 5. Intermittent episodes of nausea. KUB showed some gastric distention. I will consult GI. Patient came in with a Mckeon at the PEG site. This was reasonable placed and a standard PEG tube was placed by Dr. Henson on 06/04/1606/19: Tolerated T piece for several hours yesterday. Intermittent vomiting some abdominal distention. GI has started on Reglan for possible gastroparesis. Will check CT abd pelvis 06/20 Tolerating TP >[address] abdomen pelvis no obstruction, PEG tube in appropriate place. Subjective 07/21: reconsulted for new tachycardia, tachypnea, respiratory distress, fever. In Brief, 80yM with end-stage dementia and COPD who initially presented with altered mental status and sepsis. chronic and declining course without any improvements. family wants aggressive care despite poor overall prognosis. most recently, sputum grew out MRSA, but at the time clinically stable and ID [employer] consultant considered this colonization. today with acute worsening tachypnea, tachycardia, fever. patient at baseline neurologic status per Dr. Dolan with whom I have discussed his care. unable to obtain additional history from patient. 07/22: lactate clearing overnight. wbc downtrending. mental status remains poor, but this is baseline for patient. still on mechanical ventilation. cultures pending. ct chest/abd/pelvis without over evidence of infectious process. 07/23: Patient seen and examined today. No acute changes overnight. Patient still remains ventilator for respiratory support. Need to continue follow lactic acid level for lactic acidosis. Patient transferred to [place] for continued management facilitated by Dr. Shirley 07/24: Patient seen and examined today. No acute changes overnight. Patient still on mechanical ventilation for respiratory support. Patient clinically stabilizing at this time. Patient still with low-grade fevers. We'll start daily CPAP trials. 07/25 no issues overnight 07/27 no issues last night patient remained stable and unresponsive, opens eyes spontaneously no tracking no following commands 07/30 no issues overnight Objective Vital Signs Date Time Temp Pulse Resp B/P Pulse Ox O2 Delivery O2 Flow Rate FiO2 07/30/16 14:15 100 30 07/30/16 11:37 68 07/30/16 11:37 98.7 14 122/51 Intake and Output 07/29/16 07/29/16 07/30/16 08:00 16:00 00:00 Intake Total 1777 ml 888 ml 1080 ml Output Total 500 ml 450 ml 1000 ml Balance 1277 ml 438 ml 80 ml Result Diagram: 07/28/16 0509 07/28/16 0509 Imaging Last Impressions Chest X-Ray 06/13/16 0000 Signed Impressions: Service Date/Time: Monday, June 13, 2016 15:09 - CONCLUSION: 1. No pneumothorax is visualized. Tracheostomy in appropriate position. 2. Small left basilar opacity likely representing pleural effusion with associated volume loss and/or consolidation. There is atelectasis versus consolidation at the right lung base. Gary Tracy MD Objective Remarks GENERAL: 80 yo male patient, critically ill, trach+ HEAD: Normocephalic. EYES: PERRL. No scleral icterus. No injection or drainage. NECK: Supple, trachea midline. No JVD. tracheostomy in place without bleeding. CARDIOVASCULAR: normal rate, regular rhythm. no appreciable murmurs. sinus by tele. RESPIRATORY: on vent this morning, prvc 14/550/1:1/peep 5/50%. less tachypneic. GASTROINTESTINAL: Abdomen soft, non-tender, distended. PEG tube is in place above the umbilicus very little erythema. MUSCULOSKELETAL: contracted. With trace nonpitting peripheral upper and lower extremity edema. Extremities are warm. Neuro: RASS -4. does not follow commands. extends LUE, withdraws x 3. Date of Insertion: Jul 05, 2016 A/P Problem List: (1) Severe sepsis with acute organ dysfunction ICD Code: A41.9 Status: Acute (2) Acute respiratory failure ICD Code: J96.00 Status: Acute (3) UTI (urinary tract infection) ICD Code: N39.0 Status: Acute (4) Alzheimer's dementia ICD Code: F02.80 Status: Chronic (5) Fever ICD Code: R50.9 Status: Acute (6) Global aphasia ICD Code: R47.02 Status: Acute Assessment and Plan Assessment: 80yM with advanced dementia and prolonged downtrending hospital course complicated by multiple episodes of sepsis and [id number] respiratory failure requiring tracheostomy. He represented to the ICU with severe sepsis. CT chest/abd/pelvis without overt source, but clinically improving on broad spectrum antibiotics. Awaiting culture data. Patient has taken a large step back and he remains on full support mechanical ventilation, but his chronic deconditioning will undoubtedly make this difficult. he remains critically ill and at this point without full support would likely . Patient was transferred to [place] for continued ICU management. NEUROLOGY Alzheimer's dementia Hypoactive delirium Depression/anxiety -Acetaminophen for fever. Monitor neuro status. -Continue Provigil 200 mg daily in attempt increased alertness. -Avoid sedative medication PULMONARY Acute on chronic hypoxic and hypercarbic respiratory failure Ventilator dependent pneumonia -continue mechanical ventilation PRBC 15/500/5+/40%, personally tried CPAP this morning, patient tolerating, we'll start CPAP trials to T piece -Vent bundle -HOB at 30 degrees -s/p #8 Shiley percutaneous trach 06/13. (Dr. Morataya/Dr. Dai). Will remove sutures today -nebs q6h and q2h prn. CARDIOVASCULAR Hypertension -normotensive -Telemetry -Lactated Ringer 50 mL/hr -Free water flush 250 cc every 6 hours GASTROENTEROLOGY Failure to thrive Gastroesophageal reflux disease Constipation Severe acute protein calorie malnutrition -TF -Glucerna 1.5 with goal rate 50ml/hr via PEG tube-tolerating. -On Pepcid.for GI prophylaxis -Colace twice a day for bowel regimen RENAL/: BPH Acute kidney injury, resolved Hypophosphatemia -Could have been secondary to mild dehydration -Continue to Monitor renal function, -Mckeon catheter in place for monitoring strict input and output -electrolytes replacement per protocol. INFECTION DISEASE Febrile illness E. Cloacae UTI MRSA in sputum, colonized Klebsiella in sputum, colonized severe sepsis- resolving. Funguria with history of tropicalis and glabrata -Discontinued Cefepime, Flagyl per infectious disease -Continue micafungin -Consult infectious disease, I spoke with infectious disease today and she indicated discontinuing Flagyl, cefepime. Started on Bactrim suppression treatment. Recommend continuing micafungin at this time. -Lactic acid level has returned to normal Pertinent cultures 06/04 - urine - E. [place] 06/16 - sputum - Prachi Tropicalis 06/27 blood - Staph Epi (1/2 bottles) 06/28 urine - prachi glabrata 06/28 sputum - Klebsiella (intermediate to zosyn), MRSA 07/12 sputum - MRSA 07/18 sputum - MRSA, Klebsiella 07/21 sputum -MRSA, Klebsiella 07/21 blood -no growth for 2 days 07/21 urine -Prachi glabrata HEMATOLOGY Normocytic anemia -hemoglobin dropped almost 4 g of hemoglobin, but remained stable this time. Could be secondary to hydration -Hemoccult stool was negative -Transfuse if hemoglobin below 8.0. -Consult GI for recommendations ENDOCRINOLOGY: Hyperglycemia of critical illness -Accu-Cheks with sliding scale insulin PROPHYLAXIS -GI prophylaxis-Pepcid q12h. -DVT prevention: start sequential compression devices, discontinue heparin at this time due to acute anemia. Rule out acute bleed SKIN Left heel blister -Consult podiatry for recommendations -Continue Multi-Podus boots LINES -Peripheral IVs and lower extremities, discontinue and start upper extremity peripheral IVs. Consider PICC line if patient requires continued IV antibiotics , frequent blood draws Level 2 Jose Selby MD Jul 30, 2016 17:46
[2016-07-30] MEDS: RESP: ALBUTEROL 2.5 MG/IPRATROPIUM 0.5 MG NEB (PRN) INH (17:54)
[2016-07-31] VITALS (48 sets, daily range): BP systolic 103–168; BP diastolic 45–88; PULSE 64–98; RESP 7–35; TEMP 98.8–99.9; O2SAT 91–100
[2016-07-31] MEDS: HYDROmorphone HCL PF 1 MG/ML VIAL IV PRN (01:10)
[2016-07-31] MEDS: PIPERACIL-TAZO 4.5 GM PREMIX 100 ML IV SCH ×4 (01:10→19:51)
[2016-07-31] MEDS: CHLORHEXIDINE GLUCONATE 2 % 1 PACK (2 CLOTHS) TOP SCH (05:03)
[2016-07-31] MEDS: FREE WATER G-TUBE SCH ×3 (05:04→22:00)
[2016-07-31] MEDS: INSULIN NovoLIN REGULAR SUPPLEMENTAL SCALE SQ SCH ×3 (05:04→17:32)
[2016-07-31 05:09] LABS: BLOOD GAS BASE EXCESS -2.8 mmol/L (-2-2); BLOOD GAS CARBOXYHEMOGLOBIN 1.7 % (0-4); BLOOD GAS HCO3 21 mmol/L (22-26); BLOOD GAS METHEMOGLOBIN 0.6 % (0-2); BLOOD GAS O2 HGB SATURATION 95 % (90-100); BLOOD GAS PCO2 31 mmHg (38-42); BLOOD GAS PO2 86 mmHg (61-120); BLOOD GAS TOTAL HGB 9.6 G/DL (12.0-16.0); CRITICAL VALUE NO
[2016-07-31 05:10] LABS: DRAW SITE LT RADIAL; FIO2 30 %; NUMBER OF ARTERIAL PUNCTURES 1; OXYGEN DEVICE VENTILATOR; STAT NO; ULNAR PULSE PRESENT; VENT SETTINGS PRVC/AC
--- NOTE | 2016-07-31 06:45 | HHI.CCPN ---
Subjective Remarks/Hospital Course 80 y/o NH patient with severe dehydration, UTI sepsis, respiratory failure admitted earlier. Nonverbal, minimally responsive. Cachectic, anasarca. 06/05 Patient is sedated with Diprivan and intubated. On Insulin drip. PEG tube was replaced by GI yesterday. 06/06: Remains sedated, orally intubated on mech ventilation. 06/07: Remains sedated, orally intubated on mechanical ventilation. Daily C Pap trials ongoing. 06/08: Sedated, arousable, orally intubated on mechanical ventilation. Failed C Pap trials with low tidal volumes and decreasing pressure support today. 06/09: Afebrile. Feeling CPAP trials again today due to low tidal volumes. Tolerating tube feeding and free water boluses. Positive BM. 06/10: Tmax 102. Currently 99.1. Currently a PSV trials. Extremely low tidal volumes however which requires extra pressure support. Eyes are open but does not follow commands. 06/11: no change. failed PSV trail for tachypnea. still altered, but this is baseline for him apparently. 06/12: no changes. slightly more awake, but not following commands, and still altered. discussed care with palliative who again talked with family, and they want aggressive measures. I think we will be forced to pursue tracheostomy, as I do not think it is safe to extubate this patient given mental status. 06/13: again failed SBT. RSBI 105 with persistent altered mental status. will pursue tracheostomy today. 06/14: trach yesterday. re-cultured yesterday per ID. will follow up cultures. need placement. 06/15: Tmax 99.8. Currently 99.7. Positive BM. Tolerating tube feeding. Opens eyes but does not follow commands. 06/16: MAXIMUM TEMPERATURE 100.7. Currently 98.8. Patient opens eyes but does not follow commands. 2 bowel movements yesterday. Tolerating tube feeding. 06/17: No change neurologically opens eyes- do not follow commands. Tolerating CPAP 04/24. No other acute events 06/18: Tolerated T piece up to 4 hours yesterday overnight was on Cipro 15 or 5. Intermittent episodes of nausea. KUB showed some gastric distention. I will consult GI. Patient came in with a Lennon at the PEG site. This was reasonable placed and a standard PEG tube was placed by Dr. Henson on 06/04/1606/19: Tolerated T piece for several hours yesterday. Intermittent vomiting some abdominal distention. GI has started on Reglan for possible gastroparesis. Will check CT abd pelvis 06/20 Tolerating TP >[address] abdomen pelvis no obstruction, PEG tube in appropriate place. 07/21: reconsulted for new tachycardia, tachypnea, respiratory distress, fever. In Brief, 80yM with end-stage dementia and COPD who initially presented with altered mental status and sepsis. chronic and declining course without any improvements. family wants aggressive care despite poor overall prognosis. most recently, sputum grew out MRSA, but at the time clinically stable and ID library consultant considered this colonization. today with acute worsening tachypnea, tachycardia, fever. patient at baseline neurologic status per Dr. Dolan with whom I have discussed his care. unable to obtain additional history from patient. 07/22: lactate clearing overnight. wbc downtrending. mental status remains poor, but this is baseline for patient. still on mechanical ventilation. cultures pending. ct chest/abd/pelvis without over evidence of infectious process. 07/23: Patient seen and examined today. No acute changes overnight. Patient still remains ventilator for respiratory support. Need to continue follow lactic acid level for lactic acidosis. Patient transferred to [place] for continued management facilitated by Dr. Morataya 07/24: Patient seen and examined today. No acute changes overnight. Patient still on mechanical ventilation for respiratory support. Patient clinically stabilizing at this time. Patient still with low-grade fevers. We'll start daily CPAP trials. 07/25 no issues overnight 07/27 no issues last night patient remained stable and unresponsive, opens eyes spontaneously no tracking no following commands 07/30 no issues overnight Subjective 07/31: tolerated CPAP until 9pm last night, placed back on a rate for tachypnea. vomiting improved. serum sodium slightly downtrended. Objective Vital Signs Date Time Temp Pulse Resp B/P Pulse Ox O2 Delivery O2 Flow Rate FiO2 07/31/16 06:00 73 14 168/65 99 07/31/16 04:45 30 07/31/16 04:00 99.8 Intake and Output 07/30/16 07/30/16 07/31/16 08:00 16:00 00:00 Intake Total 400 ml 250 ml Output Total 2200 ml 1250 ml Balance -1800 ml -1000 ml Result Diagram: 07/28/16 0509 07/28/16 0509 Other Results Laboratory Tests Test 07/31/16 04:55 Blood Gas Puncture Site LT RADIAL Blood Gas Patient Temperature 37.0 Blood Gas HCO3 21 mmol/L (22-26) Blood Gas Base Excess -2.8 mmol/L (-2-2) Blood Gas Oxygen Saturation 95 % (90-100) Arterial Blood pH 7.44 (7.380-7.420) Arterial Blood Partial 31 mmHg (38-42) Pressure CO2 Arterial Blood Partial 86 mmHg Pressure O2 (61-120) Arterial Blood Oxygen Content 13.0 Vol % (12.0-20.0) Arterial Blood 1.7 % (0-4) Carboxyhemoglobin Arterial Blood Methemoglobin 0.6 % (0-2) Blood Gas Hemoglobin 9.6 G/DL (12.0-16.0) Oxygen Delivery Device VENTILATOR Blood Gas Ventilator Setting PRVC/AC Blood Gas Inspired Oxygen 30 % Imaging Last Impressions Chest X-Ray 06/13/16 0000 Signed Impressions: Service Date/Time: Monday, June 13, 2016 15:09 - CONCLUSION: 1. No pneumothorax is visualized. Tracheostomy in appropriate position. 2. Small left basilar opacity likely representing pleural effusion with associated volume loss and/or consolidation. There is atelectasis versus consolidation at the right lung base. Gary Tracy MD Objective Remarks GENERAL: 80 yo male patient, critically ill, trach+ HEAD: Normocephalic. EYES: PERRL. No scleral icterus. No injection or drainage. NECK: Supple, trachea midline. No JVD. tracheostomy in place without bleeding. CARDIOVASCULAR: normal rate, regular rhythm. sinus by tele. RESPIRATORY: on vent this morning, prvc. unlabored. equal chest rise. GASTROINTESTINAL: Abdomen soft, non-tender, nondistended. PEG tube is in place above the umbilicus very little erythema. MUSCULOSKELETAL: contracted. With trace nonpitting peripheral upper and lower extremity edema. Extremities are warm. Neuro: RASS -2. does not follow commands. extends LUE, withdraws x 3. Date of Insertion: Jul 05, 2016 A/P Problem List: (1) Severe sepsis with acute organ dysfunction ICD Code: A41.9 Status: Acute (2) Acute respiratory failure ICD Code: J96.00 Status: Acute (3) UTI (urinary tract infection) ICD Code: N39.0 Status: Acute (4) Alzheimer's dementia ICD Code: F02.80 Status: Chronic (5) Fever ICD Code: R50.9 Status: Acute (6) Global aphasia ICD Code: R47.02 Status: Acute Assessment and Plan Assessment: 80yM with advanced dementia and prolonged downtrending hospital course complicated by multiple episodes of sepsis and [id number] respiratory failure requiring tracheostomy. He represented to the ICU with severe sepsis and MRDO HCAP. Patient has taken a large step back and he remains on full support mechanical ventilation, but his chronic deconditioning will undoubtedly make this difficult. I do not think at this point he will ever leave the hospital. Family continues to want aggressive measures. NEUROLOGY Alzheimer's dementia Hypoactive delirium Depression/anxiety -Acetaminophen for fever. Monitor neuro status. -Continue Provigil 200 mg daily in attempt increased alertness. -Avoid sedative medication PULMONARY Acute on chronic hypoxic and hypercarbic respiratory failure Ventilator dependent pneumonia -failed cpap yesterday. will trial again today. -Vent bundle -HOB at 30 degrees -s/p #8 Shiley percutaneous trach 06/13. (Dr. Morataya/Dr. Dai). -nebs q6h and q2h prn. CARDIOVASCULAR Hypertension -normotensive -Telemetry -d/c LR -decrease free water to 200cc po q8hr. GASTROENTEROLOGY Failure to thrive Gastroesophageal reflux disease TF intolerance-resolving. Severe acute protein calorie malnutrition- severe -restart TF at trickle. G tube previously on suction. -On Pepcid.for GI prophylaxis -Colace twice a day for bowel regimen RENAL/: BPH Acute kidney injury, resolved Hypophosphatemia -Continue to Monitor renal function, -will trial removal of lennon catheter. he may not be able to void appropriately without one at this point. -electrolytes replacement per protocol. INFECTION DISEASE E. Cloacae UTI MRSA in sputum, colonized Klebsiella in sputum, colonized severe sepsis- resolving. Funguria with history of tropicalis and glabrata -Discontinued Cefepime, Flagyl per infectious disease -Continue micafungin -Started on Bactrim suppression treatment. Recommend continuing micafungin at this time. -Lactic acid level has returned to normal Pertinent cultures 06/04 - urine - E. Cloacae 06/16 - sputum - Prachi Tropicalis 06/27 blood - Staph Epi (1/2 bottles) 06/28 urine - prachi glabrata 06/28 sputum - Klebsiella (intermediate to zosyn), MRSA 07/12 sputum - MRSA 07/18 sputum - MRSA, Klebsiella 07/21 sputum -MRSA, Klebsiella 07/21 blood -no growth for 2 days 07/21 urine -Prachi glabrata HEMATOLOGY Normocytic anemia -hemoglobin dropped almost 4 g of hemoglobin, but remained stable this time. Could be secondary to hydration -Hemoccult stool was negative -Transfuse if hemoglobin below 7. ENDOCRINOLOGY: Hyperglycemia of critical illness -Accu-Cheks with sliding scale insulin PROPHYLAXIS -GI prophylaxis-Pepcid q12h. -DVT prevention: SCDs. will restart low-dose SQH 5000 q12h, hgb stable. SKIN Left heel blister -Continue Multi-Podus boots LINES -Kannan Palmer MD Jul 31, 2016 06:45
[2016-07-31] MEDS: FAMOTIDINE 20 MG TAB NG SCH ×2 (08:12→19:51)
[2016-07-31] MEDS: MODAFINIL 200 MG TAB PO SCH (08:12)
[2016-07-31] MEDS: SULFAMETHOXAZOLE-TRIMETHOPRIM DS 800-160 MG TAB PEG SCH ×2 (08:12→19:51)
[2016-07-31] MEDS: HEPARIN SODIUM - SQ 10,000 UNITS/ML VIAL SQ SCH ×2 (08:12→19:58)
[2016-07-31] MEDS: SODIUM CHLORIDE 0.9% FLUSH 5 ML FLUSH IV FLUSH SCH ×2 (08:13→19:52)
[2016-07-31] MEDS: CHLORHEXIDINE 0.12% (ORAL KIT) 15 ML CUP MT SCH ×2 (08:15→19:58)
[2016-07-31 08:21] LABS: BASOPHIL % 0.2 % (0.0-2.0); EOSINOPHIL # 0.5 TH/MM3 (0-0.4); EOSINOPHIL % 4.5 % (0.0-4.0); HEMATOCRIT 31.6 % (39.0-51.0); HEMO FLAGS DIFF FINAL; LYMPH % 15.3 % (9.0-44.0); LYMPHOCYTE # 1.7 TH/MM3 (1.0-4.8); MEAN CELL VOLUME 82.6 FL (80.0-100.0); MEAN CORPUSCULAR HEMOGLOBIN 27.1 PG (27.0-34.0); MEAN CORPUSCULAR HGB CONC 32.8 % (32.0-36.0); PLATELET COUNT 295 TH/MM3 (150-450); RED BLOOD COUNT 3.83 MIL/MM3 (4.50-5.90); RED CELL DISTRIBUTION WIDTH 16.7 % (11.6-17.2); WHITE BLOOD COUNT 10.9 TH/MM3 (4.0-11.0)
[2016-07-31 08:28] LABS: MAGNESIUM 2.2 MG/DL (1.5-2.5)
[2016-07-31] MEDS: POVIDONE IODINE 10% SOLN 480 ML BTL TOPICAL SCH ×2 (09:00→19:52)
[2016-07-31] MEDS: RESP: ALBUTEROL 2.5 MG/IPRATROPIUM 0.5 MG NEB (PRN) INH (14:57)
[2016-07-31] MEDS: MICAFUNGIN INJ 100 MG in SODIUM CHLORIDE 0.9% INJ 100 ML IV SCH (15:58)
[2016-07-31] MEDS: VANCOMYCIN INJ 1,250 MG in SODIUM CHLOR 0.9% 250 ML INJ 250 ML IV SCH (17:29)
[2016-08-01] VITALS (37 sets, daily range): BP systolic 86–154; BP diastolic 41–74; PULSE 56–84; RESP 13–31; TEMP 98.1–99.5; O2SAT 90–100
[2016-08-01] MEDS: PIPERACIL-TAZO 4.5 GM PREMIX 100 ML IV SCH ×4 (04:36→20:45)
[2016-08-01] MEDS: CHLORHEXIDINE GLUCONATE 2 % 1 PACK (2 CLOTHS) TOP SCH (04:37)
[2016-08-01 05:11] LABS: CHLORIDE 107 MEQ/L (98-107); POTASSIUM 3.8 MEQ/L (3.5-5.1); SODIUM (NA) 140 MEQ/L (136-145)
[2016-08-01 05:13] LABS: HEMATOCRIT 30.7 % (39.0-51.0); MEAN CELL VOLUME 82.6 FL (80.0-100.0); MEAN CORPUSCULAR HEMOGLOBIN 26.6 PG (27.0-34.0); MEAN CORPUSCULAR HGB CONC 32.2 % (32.0-36.0); PLATELET COUNT 280 TH/MM3 (150-450); RED BLOOD COUNT 3.72 MIL/MM3 (4.50-5.90); RED CELL DISTRIBUTION WIDTH 16.4 % (11.6-17.2); WHITE BLOOD COUNT 12.3 TH/MM3 (4.0-11.0)
[2016-08-01 05:15] LABS: ANION GAP 10 MEQ/L (5-15); BICARBONATE 22.6 MEQ/L (21.0-32.0); BLOOD UREA NITROGEN 4 MG/DL (7-18)
[2016-08-01 05:18] LABS: ALT (GPT) 18 U/L (12-78); AST (GOT) 28 U/L (15-37); GLOMERULAR FILTRATION RATE 100 ML/MIN (>89)
[2016-08-01 05:20] LABS: TOTAL BILIRUBIN ADULT 0.4 MG/DL (0.2-1.0)
[2016-08-01 05:21] LABS: ALKALINE PHOSPHATASE 55 U/L (45-117)
[2016-08-01 05:25] LABS: REVIEW FLAG FINAL
[2016-08-01] MEDS: FREE WATER G-TUBE SCH ×3 (06:00→22:00)
[2016-08-01] MEDS: INSULIN NovoLIN REGULAR SUPPLEMENTAL SCALE SQ SCH ×4 (06:00→18:00)
--- NOTE | 2016-08-01 07:25 | HHI.CCPN ---
Subjective Remarks/Hospital Course 80 y/o NH patient with severe dehydration, UTI sepsis, respiratory failure admitted earlier. Nonverbal, minimally responsive. Cachectic, anasarca. 06/05 Patient is sedated with Diprivan and intubated. On Insulin drip. PEG tube was replaced by GI yesterday. 06/06: Remains sedated, orally intubated on mech ventilation. 06/07: Remains sedated, orally intubated on mechanical ventilation. Daily C Pap trials ongoing. 06/08: Sedated, arousable, orally intubated on mechanical ventilation. Failed C Pap trials with low tidal volumes and decreasing pressure support today. 06/09: Afebrile. Feeling CPAP trials again today due to low tidal volumes. Tolerating tube feeding and free water boluses. Positive BM. 06/10: Tmax 102. Currently 99.1. Currently a PSV trials. Extremely low tidal volumes however which requires extra pressure support. Eyes are open but does not follow commands. 06/11: no change. failed PSV trail for tachypnea. still altered, but this is baseline for him apparently. 06/12: no changes. slightly more awake, but not following commands, and still altered. discussed care with palliative who again talked with family, and they want aggressive measures. I think we will be forced to pursue tracheostomy, as I do not think it is safe to extubate this patient given mental status. 06/13: again failed SBT. RSBI 105 with persistent altered mental status. will pursue tracheostomy today. 06/14: trach yesterday. re-cultured yesterday per ID. will follow up cultures. need placement. 06/15: Tmax 99.8. Currently 99.7. Positive BM. Tolerating tube feeding. Opens eyes but does not follow commands. 06/16: MAXIMUM TEMPERATURE 100.7. Currently 98.8. Patient opens eyes but does not follow commands. 2 bowel movements yesterday. Tolerating tube feeding. 06/17: No change neurologically opens eyes- do not follow commands. Tolerating CPAP 04/24. No other acute events 06/18: Tolerated T piece up to 4 hours yesterday overnight was on Cipro 15 or 5. Intermittent episodes of nausea. KUB showed some gastric distention. I will consult GI. Patient came in with a Lennon at the PEG site. This was reasonable placed and a standard PEG tube was placed by Dr. Henson on 06/04/1606/19: Tolerated T piece for several hours yesterday. Intermittent vomiting some abdominal distention. GI has started on Reglan for possible gastroparesis. Will check CT abd pelvis 06/20 Tolerating TP >[address] abdomen pelvis no obstruction, PEG tube in appropriate place. 07/21: reconsulted for new tachycardia, tachypnea, respiratory distress, fever. In Brief, 80yM with end-stage dementia and COPD who initially presented with altered mental status and sepsis. chronic and declining course without any improvements. family wants aggressive care despite poor overall prognosis. most recently, sputum grew out MRSA, but at the time clinically stable and ID fashion consultant sales considered this colonization. today with acute worsening tachypnea, tachycardia, fever. patient at baseline neurologic status per Dr. Dolan with whom I have discussed his care. unable to obtain additional history from patient. 07/22: lactate clearing overnight. wbc downtrending. mental status remains poor, but this is baseline for patient. still on mechanical ventilation. cultures pending. ct chest/abd/pelvis without over evidence of infectious process. 07/23: Patient seen and examined today. No acute changes overnight. Patient still remains ventilator for respiratory support. Need to continue follow lactic acid level for lactic acidosis. Patient transferred to [place] for continued management facilitated by Dr. Morataya 07/24: Patient seen and examined today. No acute changes overnight. Patient still on mechanical ventilation for respiratory support. Patient clinically stabilizing at this time. Patient still with low-grade fevers. We'll start daily CPAP trials. 07/25 no issues overnight 07/27 no issues last night patient remained stable and unresponsive, opens eyes spontaneously no tracking no following commands 07/30 no issues overnight 07/31: tolerated CPAP until 9pm last night, placed back on a rate for tachypnea. vomiting improved. serum sodium slightly downtrended. Subjective 08/01: back on PRVC overnight. still tires out of CPAP. Objective Vital Signs Date Time Temp Pulse Resp B/P Pulse Ox O2 Delivery O2 Flow Rate FiO2 08/01/16 06:00 72 08/01/16 06:00 21 137/74 100 08/01/16 04:37 98.8 08/01/16 04:35 30 Intake and Output 07/31/16 07/31/16 08/01/16 08:00 16:00 00:00 Intake Total 840 ml 1397 ml 854 ml Output Total 580 ml 1300 ml 100 ml Balance 260 ml 97 ml 754 ml Result Diagram: 08/01/16 0446 08/01/16 0446 Imaging Last Impressions Chest X-Ray 06/13/16 0000 Signed Impressions: Service Date/Time: Monday, June 13, 2016 15:09 - CONCLUSION: 1. No pneumothorax is visualized. Tracheostomy in appropriate position. 2. Small left basilar opacity likely representing pleural effusion with associated volume loss and/or consolidation. There is atelectasis versus consolidation at the right lung base. Gary Tracy MD Objective Remarks GENERAL: 80 yo male patient, critically ill, trach+ HEAD: Normocephalic. EYES: PERRL. No scleral icterus. No injection or drainage. NECK: Supple, trachea midline. No JVD. tracheostomy in place without bleeding. CARDIOVASCULAR: normal rate, regular rhythm. sinus by tele. RESPIRATORY: on vent this morning, prvc. unlabored. equal chest rise. GASTROINTESTINAL: Abdomen soft, non-tender, nondistended. PEG tube is in place above the umbilicus very little erythema. MUSCULOSKELETAL: contracted. With trace nonpitting peripheral upper and lower extremity edema. Extremities are warm. Neuro: RASS -2. does not follow commands. extends LUE, withdraws x 3. Date of Insertion: Jul 05, 2016 A/P Problem List: (1) Severe sepsis with acute organ dysfunction ICD Code: A41.9 Status: Resolved (2) Acute respiratory failure ICD Code: J96.00 Status: Chronic (3) UTI (urinary tract infection) ICD Code: N39.0 Status: Resolved (4) Alzheimer's dementia ICD Code: F02.80 Status: Chronic (5) Fever ICD Code: R50.9 Status: Resolved (6) Global aphasia ICD Code: R47.02 Status: Chronic Assessment and Plan Assessment: 80yM with advanced dementia and prolonged downtrending hospital course complicated by multiple episodes of sepsis and [id number] respiratory failure requiring tracheostomy. He represented to the ICU with severe sepsis and MRDO HCAP. Patient has taken a large step back and he remains on full support mechanical ventilation, but his chronic deconditioning will undoubtedly make this difficult. I do not think at this point he will ever leave the hospital. Family continues to want aggressive measures. NEUROLOGY Alzheimer's dementia Hypoactive delirium Depression/anxiety -Acetaminophen for fever. Monitor neuro status. -Continue Provigil 200 mg daily in attempt increased alertness. -Avoid sedative medication PULMONARY Acute on chronic hypoxic and hypercarbic respiratory failure Ventilator dependent pneumonia -failed cpap yesterday. daily SBTs -Vent bundle -HOB at 30 degrees -s/p #8 Shiley percutaneous trach 06/13. (Dr. Morataya/Dr. Dai). -nebs q6h and q2h prn. CARDIOVASCULAR Hypertension -normotensive -Telemetry -d/c LR -continue free water to 200cc po q8hr. GASTROENTEROLOGY Failure to thrive Gastroesophageal reflux disease TF intolerance-resolving. Severe acute protein calorie malnutrition- severe -advance TF to goal. -On Pepcid.for GI prophylaxis -Colace twice a day for bowel regimen RENAL/: BPH Acute kidney injury, resolved Hypophosphatemia -Continue to Monitor renal function, -lennon removed. voiding. No medical indication for lennon catheter. -electrolytes replacement per protocol. INFECTION DISEASE E. Cloacae UTI MRSA in sputum, colonized Klebsiella in sputum, colonized severe sepsis- resolving. Funguria with history of tropicalis and glabrata -Discontinued Cefepime, Flagyl per infectious disease -Continue micafungin -Started on Bactrim suppression treatment. Recommend continuing micafungin at this time. -Lactic acid level has returned to normal Pertinent cultures 06/04 - urine - E. Cloacae 06/16 - sputum - Prachi Tropicalis 06/27 blood - Staph Epi (1/2 bottles) 06/28 urine - prachi glabrata 06/28 sputum - Klebsiella (intermediate to zosyn), MRSA 07/12 sputum - MRSA 07/18 sputum - MRSA, Klebsiella 07/21 sputum -MRSA, Klebsiella 07/21 blood -no growth for 2 days 07/21 urine -Prachi glabrata HEMATOLOGY Normocytic anemia -hemoglobin dropped almost 4 g of hemoglobin, but remained stable this time. Could be secondary to hydration -Hemoccult stool was negative -Transfuse if hemoglobin below 7. ENDOCRINOLOGY: Hyperglycemia of critical illness -Accu-Cheks with sliding scale insulin PROPHYLAXIS -GI prophylaxis-Pepcid q12h. -DVT prevention: SCDs. SQH 5000 q12h, hgb stable. SKIN Left heel blister -Continue Multi-Podus boots LINES -PIVs Kannan Morataya MD Aug 01, 2016 07:25
[2016-08-01] MEDS: HEPARIN SODIUM - SQ 10,000 UNITS/ML VIAL SQ SCH ×2 (08:30→20:45)
[2016-08-01] MEDS: MODAFINIL 200 MG TAB PO SCH (08:30)
[2016-08-01] MEDS: SULFAMETHOXAZOLE-TRIMETHOPRIM DS 800-160 MG TAB PEG SCH ×2 (08:31→20:45)
[2016-08-01] MEDS: SODIUM CHLORIDE 0.9% FLUSH 5 ML FLUSH IV FLUSH SCH ×2 (08:31→20:45)
[2016-08-01] MEDS: FAMOTIDINE 20 MG TAB NG SCH ×2 (08:31→20:45)
[2016-08-01] MEDS: CHLORHEXIDINE 0.12% (ORAL KIT) 15 ML CUP MT SCH ×2 (08:32→20:46)
[2016-08-01] MEDS: VANCOMYCIN INJ 1,250 MG in SODIUM CHLOR 0.9% 250 ML INJ 250 ML IV SCH (15:33)
[2016-08-01] MEDS: MICAFUNGIN INJ 100 MG in SODIUM CHLORIDE 0.9% INJ 100 ML IV SCH (17:08)
--- NOTE | 2016-08-01 18:06 | HHI.PR ---
Subjective Remarks 80 YO male with Dementia, RF,Trach Pt aphasic Tolerates TF Tolerated CPAP, became tecypnoic Back on PRVC Objective Vital Signs Vital Signs Date Time Temp Pulse Resp B/P Pulse Ox O2 Delivery O2 Flow Rate FiO2 08/01/16 17:46 99 30 08/01/16 17:00 66 20 98/56 98 08/01/16 16:00 58 08/01/16 16:00 30 08/01/16 16:00 98.7 58 13 87/45 98 08/01/16 15:00 70 22 89/41 97 08/01/16 15:00 30 08/01/16 14:49 99 30 08/01/16 14:00 68 19 92/47 98 08/01/16 14:00 68 08/01/16 13:00 72 21 122/59 100 08/01/16 12:00 68 08/01/16 12:00 30 08/01/16 12:00 99.5 62 13 102/51 96 08/01/16 11:55 99 30 08/01/16 11:55 30 08/01/16 11:28 80 26 114/66 99 08/01/16 11:15 98 30 08/01/16 10:00 68 08/01/16 10:00 70 28 94/52 90 08/01/16 09:00 84 31 106/52 100 08/01/16 08:55 30 08/01/16 08:25 100 30 08/01/16 08:00 78 08/01/16 08:00 98.7 82 25 111/50 99 08/01/16 07:00 76 23 140/65 100 08/01/16 06:00 72 08/01/16 06:00 78 21 137/74 100 08/01/16 05:37 78 21 137/74 100 08/01/16 04:37 98.8 72 18 127/61 100 08/01/16 04:35 100 30 08/01/16 04:00 76 08/01/16 04:00 30 08/01/16 03:37 72 17 120/58 100 08/01/16 02:37 68 22 128/53 100 08/01/16 02:37 68 22 128/53 100 08/01/16 02:00 72 08/01/16 01:37 74 22 115/57 100 08/01/16 00:57 100 30 08/01/16 00:00 98.4 76 16 154/71 100 08/01/16 00:00 77 08/01/16 00:00 30 07/31/16 23:37 72 7 154/71 100 07/31/16 22:37 72 15 121/66 100 07/31/16 22:37 72 15 121/66 100 07/31/16 22:00 80 07/31/16 21:49 100 30 07/31/16 21:37 72 23 128/83 100 07/31/16 21:37 72 23 128/83 100 07/31/16 20:37 66 29 115/68 100 07/31/16 20:37 98.8 66 29 115/68 100 07/31/16 20:05 97 30 07/31/16 20:00 30 07/31/16 20:00 74 07/31/16 19:37 66 26 106/52 100 07/31/16 19:37 66 26 106/52 100 I/O 07/31/16 07/31/16 07/31/16 08/01/16 08/01/16 08/01/16 07:00 15:00 23:00 07:00 15:00 23:00 Intake Total 840 ml 2251 ml 447 ml 682 ml Output Total 580 ml 1400 ml 1400 ml Balance 260 ml 851 ml -953 ml 682 ml Intake Oral 0 ml IV Total 840 ml 1197 ml 100 ml 120 ml Tube Feeding 327 ml 147 ml 242 ml Packed Cells 327 ml Tube Irrigant 120 ml Other 400 ml 200 ml 200 ml Output Urine Total 130 ml 1300 ml 1400 ml Stool Total 100 ml 100 ml Gastric Drainage Total 350 ml # Voids 1 3 # Bowel Movements 4 1 Result Diagram: 08/01/16 0446 08/01/16 0446 Objective Remarks GENERAL: Elderly frail male, mild sob SKIN: Warm and dry. HEAD: Normocephalic. EYES: No scleral icterus. No injection or drainage. NECK: Supple, trachea midline. No JVD or lymphadenopathy. CARDIOVASCULAR: Regular rate and rhythm without murmurs, gallops, or rubs. RESPIRATORY: Breath sounds equal bilaterally. No accessory muscle use. GASTROINTESTINAL: Abdomen soft, non-tender, nondistended. MUSCULOSKELETAL: No cyanosis, or edema. BACK: Nontender without obvious deformity. No CVA tenderness. A/P Assessment and Plan RF,s/p Trach Aphasia Dysphagia Dementia PLAN: Aerosol nebs Tracheal suction Levsin qid Tube feeding 40 cc/hr Cont Abx PRVC Daily CPAP trial Silverio Reyes MD Aug 01, 2016 18:05
[2016-08-02] VITALS (34 sets, daily range): BP systolic 83–130; BP diastolic 39–71; PULSE 56–86; RESP 10–30; TEMP 98.4–100.2; O2SAT 93–100
[2016-08-02] MEDS: SODIUM CHLORIDE 0.9% FLUSH 5 ML FLUSH IV FLUSH PRN (01:07)
[2016-08-02] MEDS: PIPERACIL-TAZO 4.5 GM PREMIX 100 ML IV SCH ×4 (01:09→19:31)
[2016-08-02] MEDS: RESP: ALBUTEROL 2.5 MG/IPRATROPIUM 0.5 MG NEB (PRN) INH (04:00)
[2016-08-02] MEDS: CHLORHEXIDINE GLUCONATE 2 % 1 PACK (2 CLOTHS) TOP SCH (04:00)
[2016-08-02] MEDS: VANCOMYCIN INJ 1,250 MG in SODIUM CHLOR 0.9% 250 ML INJ 250 ML IV SCH (05:35)
[2016-08-02] MEDS: FREE WATER G-TUBE SCH ×3 (05:37→20:45)
[2016-08-02] MEDS: INSULIN NovoLIN REGULAR SUPPLEMENTAL SCALE SQ SCH ×4 (06:00→17:55)
--- NOTE | 2016-08-02 06:48 | HHI.CCPN ---
Subjective Remarks/Hospital Course 80 y/o NH patient with severe dehydration, UTI sepsis, respiratory failure admitted earlier. Nonverbal, minimally responsive. Cachectic, anasarca. 06/05 Patient is sedated with Diprivan and intubated. On Insulin drip. PEG tube was replaced by GI yesterday. 06/06: Remains sedated, orally intubated on mech ventilation. 06/07: Remains sedated, orally intubated on mechanical ventilation. Daily C Pap trials ongoing. 06/08: Sedated, arousable, orally intubated on mechanical ventilation. Failed C Pap trials with low tidal volumes and decreasing pressure support today. 06/09: Afebrile. Feeling CPAP trials again today due to low tidal volumes. Tolerating tube feeding and free water boluses. Positive BM. 06/10: Tmax 102. Currently 99.1. Currently a PSV trials. Extremely low tidal volumes however which requires extra pressure support. Eyes are open but does not follow commands. 06/11: no change. failed PSV trail for tachypnea. still altered, but this is baseline for him apparently. 06/12: no changes. slightly more awake, but not following commands, and still altered. discussed care with palliative who again talked with family, and they want aggressive measures. I think we will be forced to pursue tracheostomy, as I do not think it is safe to extubate this patient given mental status. 06/13: again failed SBT. RSBI 105 with persistent altered mental status. will pursue tracheostomy today. 06/14: trach yesterday. re-cultured yesterday per ID. will follow up cultures. need placement. 06/15: Tmax 99.8. Currently 99.7. Positive BM. Tolerating tube feeding. Opens eyes but does not follow commands. 06/16: MAXIMUM TEMPERATURE 100.7. Currently 98.8. Patient opens eyes but does not follow commands. 2 bowel movements yesterday. Tolerating tube feeding. 06/17: No change neurologically opens eyes- do not follow commands. Tolerating CPAP 04/24. No other acute events 06/18: Tolerated T piece up to 4 hours yesterday overnight was on Cipro 15 or 5. Intermittent episodes of nausea. KUB showed some gastric distention. I will consult GI. Patient came in with a Lennon at the PEG site. This was reasonable placed and a standard PEG tube was placed by Dr. Henson on 06/04/1606/19: Tolerated T piece for several hours yesterday. Intermittent vomiting some abdominal distention. GI has started on Reglan for possible gastroparesis. Will check CT abd pelvis 06/20 Tolerating TP >[address] abdomen pelvis no obstruction, PEG tube in appropriate place. 07/21: reconsulted for new tachycardia, tachypnea, respiratory distress, fever. In Brief, 80yM with end-stage dementia and COPD who initially presented with altered mental status and sepsis. chronic and declining course without any improvements. family wants aggressive care despite poor overall prognosis. most recently, sputum grew out MRSA, but at the time clinically stable and ID regulatory consultant considered this colonization. today with acute worsening tachypnea, tachycardia, fever. patient at baseline neurologic status per Dr. Dolan with whom I have discussed his care. unable to obtain additional history from patient. 07/22: lactate clearing overnight. wbc downtrending. mental status remains poor, but this is baseline for patient. still on mechanical ventilation. cultures pending. ct chest/abd/pelvis without over evidence of infectious process. 07/23: Patient seen and examined today. No acute changes overnight. Patient still remains ventilator for respiratory support. Need to continue follow lactic acid level for lactic acidosis. Patient transferred to [facility] for continued management facilitated by Dr. Morataya 07/24: Patient seen and examined today. No acute changes overnight. Patient still on mechanical ventilation for respiratory support. Patient clinically stabilizing at this time. Patient still with low-grade fevers. We'll start daily CPAP trials. 07/25 no issues overnight 07/27 no issues last night patient remained stable and unresponsive, opens eyes spontaneously no tracking no following commands 07/30 no issues overnight 07/31: tolerated CPAP until 9pm last night, placed back on a rate for tachypnea. vomiting improved. serum sodium slightly downtrended. Subjective 08/01: back on PRVC overnight. still tires out of CPAP. 08/02: Tolerated CPAP for 4 hours yesterday, No other issues overnight other than low grade fever. If tolerating CPAP > 12 hours attempt TP tomorrow Objective Vital Signs Date Time Temp Pulse Resp B/P Pulse Ox O2 Delivery O2 Flow Rate FiO2 08/02/16 06:00 67 08/02/16 05:00 14 97/51 99 08/02/16 04:00 30 08/02/16 04:00 99.7 Intake and Output 08/01/16 08/01/16 08/02/16 08:00 16:00 00:00 Intake Total 447 ml 682 ml 100 ml Output Total 1400 ml Balance -953 ml 682 ml 100 ml Result Diagram: 08/01/16 0446 08/01/16 0446 Imaging Last Impressions Chest X-Ray 06/13/16 0000 Signed Impressions: Service Date/Time: Monday, June 13, 2016 15:09 - CONCLUSION: 1. No pneumothorax is visualized. Tracheostomy in appropriate position. 2. Small left basilar opacity likely representing pleural effusion with associated volume loss and/or consolidation. There is atelectasis versus consolidation at the right lung base. Gary Tracy MD Objective Remarks GENERAL: 80 yo male patient, critically ill, mechanically ventilated HEAD: Normocephalic. EYES: PERRL. No scleral icterus. No injection or drainage. NECK: Supple, trachea midline. No JVD. tracheostomy in place without bleeding. CARDIOVASCULAR: normal rate, regular rhythm. sinus by tele. RESPIRATORY: on vent this morning, prvc. unlabored. equal chest rise. Moderate trach secretions GASTROINTESTINAL: Abdomen soft, non-tender, nondistended. PEG tube is in place above the umbilicus very little erythema. MUSCULOSKELETAL: contracted. With trace nonpitting peripheral upper and lower extremity edema. Neuro: Opens eyes spontaneously. does not follow commands. extends LUE, withdraws x 3. Date of Insertion: Jul 05, 2016 A/P Problem List: (1) Severe sepsis with acute organ dysfunction ICD Code: A41.9 Status: Resolved (2) Acute respiratory failure ICD Code: J96.00 Status: Chronic (3) UTI (urinary tract infection) ICD Code: N39.0 Status: Resolved (4) Alzheimer's dementia ICD Code: F02.80 Status: Chronic (5) Fever ICD Code: R50.9 Status: Resolved (6) Global aphasia ICD Code: R47.02 Status: Chronic Assessment and Plan Assessment: 80yM with advanced dementia and prolonged downtrending hospital course complicated by multiple episodes of sepsis and yyjee-xn-ctekyne respiratory failure requiring tracheostomy. He represented to the ICU with severe sepsis and MRDO HCAP. Patient has taken a large step back and he remains on full support mechanical ventilation, but his chronic deconditioning will undoubtedly make this difficult. Family continues to want aggressive measures. NEUROLOGY Alzheimer's dementia Hypoactive delirium Depression/anxiety -Acetaminophen for fever. Monitor neuro status. -Continue Provigil 200 mg daily in attempt increased alertness. -Avoid sedative medication PULMONARY Acute on chronic hypoxic and hypercarbic respiratory failure Ventilator dependent pneumonia -Tolerated C Pap for 4 hours yesterday. daily SBTs. Leave on CPap 24/7 hours as tolerated -Vent bundle -HOB at 30 degrees -s/p #8 Shiley percutaneous trach 06/13. (Dr. Morataya/Dr. Dai). -nebs q6h and q2h prn. CARDIOVASCULAR Hypertension -normotensive -Telemetry -continue free water to 200cc po q8hr. GASTROENTEROLOGY Failure to thrive Gastroesophageal reflux disease TF intolerance-resolving. Severe acute protein calorie malnutrition- severe -advance TF to goal as tolerated, having BM -On Pepcid.for GI prophylaxis -Colace twice a day for bowel regimen RENAL/: BPH Acute kidney injury, resolved Hypophosphatemia -Continue to Monitor renal function, -lennon removed. voiding. No medical indication for lennon catheter. -electrolytes replacement per protocol. INFECTION DISEASE E. Cloacae UTI MRSA in sputum, colonized Klebsiella in sputum, colonized severe sepsis- resolving. Funguria with history of tropicalis and glabrata -Discontinued Cefepime, Flagyl per infectious disease -Continue micafungin -Started on Bactrim suppression treatment. Recommend continuing micafungin at this time. -Lactic acid level has returned to normal Pertinent cultures 06/04 - urine - E. Cloacae 06/16 - sputum - Prachi Tropicalis 06/27 blood - Staph Epi (1/2 bottles) 06/28 urine - prachi glabrata 06/28 sputum - Klebsiella (intermediate to zosyn), MRSA 07/12 sputum - MRSA 07/18 sputum - MRSA, Klebsiella 07/21 sputum -MRSA, Klebsiella 07/21 blood -no growth for 2 days 07/21 urine -Prachi glabrata HEMATOLOGY Normocytic anemia -hemoglobin dropped almost 4 g of hemoglobin, but remained stable this time. Could be secondary to hydration -Hemoccult stool was negative -Transfuse if hemoglobin below 7. ENDOCRINOLOGY: Hyperglycemia of critical illness -Accu-Cheks with sliding scale insulin PROPHYLAXIS -GI prophylaxis-Pepcid q12h. -DVT prevention: SCDs. SQH 5000 [id number] to q8hr, hgb stable. SKIN Left heel blister -Continue Multi-Podus boots, wound care following LINES -PIVs level 2 Reno Vega MD Aug 02, 2016 06:48
[2016-08-02] MEDS: MODAFINIL 200 MG TAB PO SCH (09:48)
[2016-08-02] MEDS: SULFAMETHOXAZOLE-TRIMETHOPRIM DS 800-160 MG TAB PEG SCH ×2 (09:48→20:45)
[2016-08-02] MEDS: FAMOTIDINE 20 MG TAB NG SCH ×2 (09:48→20:45)
[2016-08-02] MEDS: CHLORHEXIDINE 0.12% (ORAL KIT) 15 ML CUP MT SCH ×2 (09:49→19:32)
[2016-08-02] MEDS: SODIUM CHLORIDE 0.9% FLUSH 5 ML FLUSH IV FLUSH SCH ×2 (09:49→20:45)
[2016-08-02] MEDS: HEPARIN SODIUM - SQ 10,000 UNITS/ML VIAL SQ SCH ×2 (13:34→21:55)
[2016-08-02] MEDS: MICAFUNGIN INJ 100 MG in SODIUM CHLORIDE 0.9% INJ 100 ML IV SCH (17:55)
[2016-08-02] MEDS: HYDROmorphone HCL PF 1 MG/ML VIAL IV PRN (20:46)
[2016-08-03] VITALS (27 sets, daily range): BP systolic 92–149; BP diastolic 45–74; PULSE 56–98; RESP 9–30; TEMP 97.9–98.8; O2SAT 94–100
[2016-08-03] MEDS: VANCOMYCIN INJ 1,250 MG in SODIUM CHLOR 0.9% 250 ML INJ 250 ML IV SCH ×2 (00:18→17:48)
[2016-08-03] MEDS: PIPERACIL-TAZO 4.5 GM PREMIX 100 ML IV SCH ×4 (02:06→19:53)
[2016-08-03] MEDS: CHLORHEXIDINE GLUCONATE 2 % 1 PACK (2 CLOTHS) TOP SCH (03:51)
--- NOTE | 2016-08-03 04:46 | RADHPO ---
EXAM DATE/TIME: 08/03/2016 04:29 [facility] COMPARISON: CHEST SINGLE AP, July 28, 2016, 4:12. INDICATIONS : Shortness of breath MEDICAL HISTORY : None. SURGICAL HISTORY : PEG tube. Tracheotomoy. ENCOUNTER: Subsequent ACUITY: 2 weeks PAIN SCORE: Non-responsive. LOCATION: Bilateral chest FINDINGS: Single AP view of the chest. Tracheostomy tube remains in place. Mild central pulmonary vasculature i ndistinctness suggesting pulmonary vascular congestion. No significant interval change. No evidence o f pleural effusion or pneumothorax. Cardiomediastinal silhouette unchanged. CONCLUSION: Mild pulmonary vascular congestion. No significant interval change. Nishant Garcia MD on August 03, 2016 at 4:37 Board Certified Radiologist. This report was verified electronically.
[2016-08-03] MEDS: FREE WATER G-TUBE SCH ×3 (06:00→21:24)
[2016-08-03] MEDS: INSULIN NovoLIN REGULAR SUPPLEMENTAL SCALE SQ SCH ×5 (06:00→23:51)
[2016-08-03] MEDS: HEPARIN SODIUM - SQ 10,000 UNITS/ML VIAL SQ SCH ×3 (06:20→21:32)
--- NOTE | 2016-08-03 06:48 | HHI.CCPN ---
Subjective Remarks/Hospital Course 80 y/o NH patient with severe dehydration, UTI sepsis, respiratory failure admitted earlier. Nonverbal, minimally responsive. Cachectic, anasarca. 06/05 Patient is sedated with Diprivan and intubated. On Insulin drip. PEG tube was replaced by GI yesterday. 06/06: Remains sedated, orally intubated on mech ventilation. 06/07: Remains sedated, orally intubated on mechanical ventilation. Daily C Pap trials ongoing. 06/08: Sedated, arousable, orally intubated on mechanical ventilation. Failed C Pap trials with low tidal volumes and decreasing pressure support today. 06/09: Afebrile. Feeling CPAP trials again today due to low tidal volumes. Tolerating tube feeding and free water boluses. Positive BM. 06/10: Tmax 102. Currently 99.1. Currently a PSV trials. Extremely low tidal volumes however which requires extra pressure support. Eyes are open but does not follow commands. 06/11: no change. failed PSV trail for tachypnea. still altered, but this is baseline for him apparently. 06/12: no changes. slightly more awake, but not following commands, and still altered. discussed care with palliative who again talked with family, and they want aggressive measures. I think we will be forced to pursue tracheostomy, as I do not think it is safe to extubate this patient given mental status. 06/13: again failed SBT. RSBI 105 with persistent altered mental status. will pursue tracheostomy today. 06/14: trach yesterday. re-cultured yesterday per ID. will follow up cultures. need placement. 06/15: Tmax 99.8. Currently 99.7. Positive BM. Tolerating tube feeding. Opens eyes but does not follow commands. 06/16: MAXIMUM TEMPERATURE 100.7. Currently 98.8. Patient opens eyes but does not follow commands. 2 bowel movements yesterday. Tolerating tube feeding. 06/17: No change neurologically opens eyes- do not follow commands. Tolerating CPAP 04/24. No other acute events 06/18: Tolerated T piece up to 4 hours yesterday overnight was on Cipro 15 or 5. Intermittent episodes of nausea. KUB showed some gastric distention. I will consult GI. Patient came in with a Lennon at the PEG site. This was reasonable placed and a standard PEG tube was placed by Dr. Henson on 06/04/1606/19: Tolerated T piece for several hours yesterday. Intermittent vomiting some abdominal distention. GI has started on Reglan for possible gastroparesis. Will check CT abd pelvis 06/20 Tolerating TP >[address] abdomen pelvis no obstruction, PEG tube in appropriate place. 07/21: reconsulted for new tachycardia, tachypnea, respiratory distress, fever. In Brief, 80yM with end-stage dementia and COPD who initially presented with altered mental status and sepsis. chronic and declining course without any improvements. family wants aggressive care despite poor overall prognosis. most recently, sputum grew out MRSA, but at the time clinically stable and ID provider relations consultant considered this colonization. today with acute worsening tachypnea, tachycardia, fever. patient at baseline neurologic status per Dr. Dolan with whom I have discussed his care. unable to obtain additional history from patient. 07/22: lactate clearing overnight. wbc downtrending. mental status remains poor, but this is baseline for patient. still on mechanical ventilation. cultures pending. ct chest/abd/pelvis without over evidence of infectious process. 07/23: Patient seen and examined today. No acute changes overnight. Patient still remains ventilator for respiratory support. Need to continue follow lactic acid level for lactic acidosis. Patient transferred to [facility] for continued management facilitated by Dr. Morataya 07/24: Patient seen and examined today. No acute changes overnight. Patient still on mechanical ventilation for respiratory support. Patient clinically stabilizing at this time. Patient still with low-grade fevers. We'll start daily CPAP trials. 07/25 no issues overnight 07/27 no issues last night patient remained stable and unresponsive, opens eyes spontaneously no tracking no following commands 07/30 no issues overnight 07/31: tolerated CPAP until 9pm last night, placed back on a rate for tachypnea. vomiting improved. serum sodium slightly downtrended. Subjective 08/01: back on PRVC overnight. still tires out of CPAP. 08/02: Tolerated CPAP for 4 hours yesterday, No other issues overnight other than low grade fever. If tolerating CPAP > 12 hours attempt TP tomorrow 08/03: Tolerating C Pap 1005 since yesterday, now more than 24 hours. Attempt TP today for up to 8 hours. CXR mild pulmonary vascular congestion Objective Vital Signs Date Time Temp Pulse Resp B/P Pulse Ox O2 Delivery O2 Flow Rate FiO2 08/03/16 06:00 73 08/03/16 06:00 23 124/59 100 08/03/16 04:06 35 08/03/16 04:00 98.0 Intake and Output 08/02/16 08/02/16 08/03/16 08:00 16:00 00:00 Intake Total 713 ml 1360 ml 538 ml Output Total 550 ml 800 ml 300 ml Balance 163 ml 560 ml 238 ml Result Diagram: 08/01/16 0446 08/01/16 0446 Imaging Last Impressions Chest X-Ray 06/13/16 0000 Signed Impressions: Service Date/Time: Monday, June 13, 2016 15:09 - CONCLUSION: 1. No pneumothorax is visualized. Tracheostomy in appropriate position. 2. Small left basilar opacity likely representing pleural effusion with associated volume loss and/or consolidation. There is atelectasis versus consolidation at the right lung base. Gary Tracy MD Objective Remarks GENERAL: 80 yo male patient, critically ill, mechanically ventilated HEAD: Normocephalic. EYES: PERRL. No scleral icterus. No injection or drainage. NECK: Supple, trachea midline. No JVD. tracheostomy in place without bleeding. CARDIOVASCULAR: normal rate, regular rhythm. sinus by tele. RESPIRATORY: on vent this morning, CPAP 10/5. unlabored. equal chest rise. Moderate trach secretions GASTROINTESTINAL: Abdomen soft, non-tender, nondistended. PEG tube is in place above the umbilicus very little erythema. MUSCULOSKELETAL: contracted. With trace nonpitting peripheral upper and lower extremity edema. Neuro: Opens eyes spontaneously. does not follow commands. extends LUE, withdraws x 3. Urinary Catheter: Yes Assessment to: Continue Date of Insertion: Jul 05, 2016 Vascular Central Line Catheter: Yes Assessment to: Continue A/P Problem List: (1) Severe sepsis with acute organ dysfunction ICD Code: A41.9 Status: Resolved (2) Acute respiratory failure ICD Code: J96.00 Status: Chronic (3) UTI (urinary tract infection) ICD Code: N39.0 Status: Resolved (4) Alzheimer's dementia ICD Code: F02.80 Status: Chronic (5) Fever ICD Code: R50.9 Status: Resolved (6) Global aphasia ICD Code: R47.02 Status: Chronic Assessment and Plan Assessment: 80yM with advanced dementia and prolonged downtrending hospital course complicated by multiple episodes of sepsis and [id number] respiratory failure requiring tracheostomy. He represented to the ICU with severe sepsis and MRDO HCAP. Patient has taken a large step back and he remains on full support mechanical ventilation, but his chronic deconditioning will undoubtedly make this difficult. Family continues to want aggressive measures. NEUROLOGY Alzheimer's dementia Hypoactive delirium Depression/anxiety -Acetaminophen for fever. Monitor neuro status. -Continue Provigil 200 mg daily in attempt increased alertness. -Avoid sedation PULMONARY Acute on chronic hypoxic and hypercarbic respiratory failure Healthcare associated pneumonia -Tolerated C Pap for 24 hours since yesterday. Start Tp up to 8 hours and increase duration as ordered -Vent bundle -HOB at 30 degrees -s/p #8 Shiley percutaneous trach 06/13. (Dr. Morataya/Dr. Dai). -nebs q6h and q2h prn. CARDIOVASCULAR Hypertension -normotensive -Telemetry -continue free water to 200cc po q8hr. GASTROENTEROLOGY Failure to thrive Gastroesophageal reflux disease TF intolerance-resolving. Severe acute protein calorie malnutrition- severe -TF to goal as tolerated, having BM -On Pepcid.for GI prophylaxis -Colace twice a day for bowel regimen RENAL/: BPH Acute kidney injury, resolved Hypophosphatemia -Continue to Monitor renal function, -Lennon removed. voiding. No medical indication for lennon catheter. -electrolytes replacement per protocol. -Iv lasix 20 mg x1 INFECTION DISEASE E. Cloacae UTI MRSA in sputum, colonized Klebsiella in sputum, colonized severe sepsis- resolving. Funguria with history of tropicalis and glabrata -Discontinued Cefepime, Flagyl per infectious disease -Continue micafungin -Started on Bactrim suppression treatment. -Lactic acid level has returned to normal Pertinent cultures 06/04 - urine - E. Cloacae 06/16 - sputum - Prachi Tropicalis 06/27 blood - Staph Epi (1/2 bottles) 06/28 urine - prachi glabrata 06/28 sputum - Klebsiella (intermediate to zosyn), MRSA 07/12 sputum - MRSA 07/18 sputum - MRSA, Klebsiella 07/21 sputum -MRSA, Klebsiella 07/21 blood -no growth for 2 days 07/21 urine -Prachi glabrata HEMATOLOGY Normocytic anemia -hemoglobin dropped almost 4 g of hemoglobin, but remained stable this time. Could be secondary to hydration -Hemoccult stool was negative -Transfuse if hemoglobin below 7. ENDOCRINOLOGY: Hyperglycemia of critical illness -Accu-Cheks with sliding scale insulin PROPHYLAXIS -GI prophylaxis-Pepcid q12h. -DVT prevention: SCDs. SQH 5000 q8hr, hgb stable. SKIN Left heel blister -Continue Multi-Podus boots, wound care following LINES -PIVs level 2 Reno Vega MD Aug 03, 2016 06:48
[2016-08-03] MEDS ORDERED: FUROSEMIDE 20 MG/2 ML VIAL IV PUSH ONE (07:00)
[2016-08-03] MEDS: SULFAMETHOXAZOLE-TRIMETHOPRIM DS 800-160 MG TAB PEG SCH ×2 (08:00→21:23)
[2016-08-03] MEDS: MODAFINIL 200 MG TAB PO SCH (08:00)
[2016-08-03] MEDS: FAMOTIDINE 20 MG TAB NG SCH ×2 (08:00→21:24)
[2016-08-03] MEDS: SODIUM CHLORIDE 0.9% FLUSH 5 ML FLUSH IV FLUSH SCH ×2 (08:00→21:24)
[2016-08-03 08:18] LABS: CHLORIDE 105 MEQ/L (98-107); SODIUM (NA) 140 MEQ/L (136-145)
[2016-08-03 08:21] LABS: ANION GAP 11 MEQ/L (5-15); BICARBONATE 24.5 MEQ/L (21.0-32.0)
[2016-08-03 08:22] LABS: BLOOD UREA NITROGEN 7 MG/DL (7-18)
[2016-08-03 08:24] LABS: ALT (GPT) 14 U/L (12-78); AST (GOT) 19 U/L (15-37)
[2016-08-03 08:25] LABS: GLOMERULAR FILTRATION RATE 95 ML/MIN (>89)
[2016-08-03 08:26] LABS: TOTAL BILIRUBIN ADULT 0.2 MG/DL (0.2-1.0)
[2016-08-03 08:27] LABS: ALKALINE PHOSPHATASE 55 U/L (45-117)
[2016-08-03] MEDS: CHLORHEXIDINE 0.12% (ORAL KIT) 15 ML CUP MT SCH ×2 (08:38→19:54)
[2016-08-03 09:27] LABS: AUTOMATED NEUTROPHIL # 6.7 TH/MM3 (1.8-7.7); BASOPHIL % 0.3 % (0.0-2.0); EOSINOPHIL # 0.5 TH/MM3 (0-0.4); EOSINOPHIL % 5.6 % (0.0-4.0); HEMATOCRIT 33.3 % (39.0-51.0); HEMO FLAGS DIFF FINAL; LYMPH % 11.6 % (9.0-44.0); MEAN CELL VOLUME 83.4 FL (80.0-100.0); MEAN CORPUSCULAR HEMOGLOBIN 26.9 PG (27.0-34.0); MEAN CORPUSCULAR HGB CONC 32.2 % (32.0-36.0); MONO % 2.8 % (0.0-8.0); NEUT % 79.7 % (16.0-70.0); PLATELET COUNT 357 TH/MM3 (150-450); RED CELL DISTRIBUTION WIDTH 17.4 % (11.6-17.2); WHITE BLOOD COUNT 8.4 TH/MM3 (4.0-11.0)
[2016-08-03] MEDS: MICAFUNGIN INJ 100 MG in SODIUM CHLORIDE 0.9% INJ 100 ML IV SCH (14:53)
--- NOTE | 2016-08-03 18:25 | HHI.PR ---
Subjective Remarks 80 YO male with Dementia, RF,Trach Pt aphasic Tolerates TF tolerates Trach collar Opens eyes Objective Vital Signs Vital Signs Date Time Temp Pulse Resp B/P Pulse Ox O2 Delivery O2 Flow Rate FiO2 08/03/16 16:00 28 08/03/16 16:00 98.8 66 30 119/62 98 08/03/16 16:00 62 08/03/16 14:00 76 9 92/45 99 08/03/16 13:31 99 T-piece 7.00 28 08/03/16 13:00 70 28 94 08/03/16 12:32 98.5 70 28 113/52 100 08/03/16 12:00 40 08/03/16 12:00 66 28 100 08/03/16 12:00 73 08/03/16 11:00 68 28 98 08/03/16 10:41 100 T-piece 7.00 35 08/03/16 10:00 68 24 99/46 97 08/03/16 09:00 68 21 100 08/03/16 08:26 68 26 126/48 100 08/03/16 08:00 97.9 62 23 99 08/03/16 08:00 30 08/03/16 08:00 63 08/03/16 07:38 100 30 08/03/16 07:00 60 18 99 08/03/16 06:00 73 08/03/16 06:00 62 23 124/59 100 08/03/16 05:00 58 13 140/62 100 08/03/16 04:06 100 35 08/03/16 04:00 98.0 58 17 141/59 100 08/03/16 04:00 56 08/03/16 04:00 30 08/03/16 03:00 60 17 95/49 99 08/03/16 02:00 58 19 149/74 100 08/03/16 02:00 58 08/03/16 01:00 56 17 116/64 96 08/03/16 00:45 100 30 08/03/16 00:19 97.9 68 25 140/61 100 08/03/16 00:00 30 08/03/16 00:00 58 08/02/16 23:00 56 16 107/42 99 08/02/16 22:04 100 30 08/02/16 22:00 58 17 122/54 99 08/02/16 22:00 57 08/02/16 21:16 15 08/02/16 21:00 58 10 91/45 95 08/02/16 20:00 76 08/02/16 20:00 30 08/02/16 20:00 98.4 62 22 126/49 100 08/02/16 19:28 98 30 08/02/16 19:00 64 26 130/56 99 I/O 08/02/16 08/02/16 08/02/16 08/03/16 08/03/16 08/03/16 07:00 15:00 23:00 07:00 15:00 23:00 Intake Total 713 ml 1360 ml 538 ml 756 ml 950 ml Output Total 550 ml 800 ml 300 ml 300 ml Balance 163 ml 560 ml 238 ml 456 ml 950 ml Intake Oral 0 ml 0 ml 0 ml 0 ml IV Total 250 ml 475 ml 100 ml 350 ml 110 ml Tube Feeding 463 ml 585 ml 238 ml 206 ml 540 ml Tube Irrigant 100 ml 100 ml Other 200 ml 200 ml 200 ml 200 ml Output Urine Total 550 ml 800 ml 300 ml 300 ml # Voids 3 1 0 6 # Bowel Movements 1 3 0 4 3 Result Diagram: 08/03/16 0900 08/03/16 0745 Objective Remarks GENERAL: Elderly frail male, mild sob SKIN: Warm and dry. HEAD: Normocephalic. EYES: No scleral icterus. No injection or drainage. NECK: Supple, trachea midline. No JVD or lymphadenopathy. CARDIOVASCULAR: Regular rate and rhythm without murmurs, gallops, or rubs. RESPIRATORY: Breath sounds equal bilaterally. No accessory muscle use. GASTROINTESTINAL: Abdomen soft, non-tender, nondistended. MUSCULOSKELETAL: No cyanosis, or edema. BACK: Nontender without obvious deformity. No CVA tenderness. A/P Assessment and Plan RF,s/p Trach Aphasia Dysphagia Dementia PLAN: Aerosol nebs Tracheal suction Levsin qid Tube feeding 40 cc/hr cont trach collar Rest with CPAP Silverio Reyes MD Aug 03, 2016 18:25
[2016-08-04] VITALS (13 sets, daily range): BP systolic 107–138; BP diastolic 55–64; PULSE 63–100; RESP 16–36; TEMP 98.3–99.3; O2SAT 97–100
[2016-08-04] MEDS: PIPERACIL-TAZO 4.5 GM PREMIX 100 ML IV SCH ×4 (01:22→20:03)
[2016-08-04] MEDS: INSULIN NovoLIN REGULAR SUPPLEMENTAL SCALE SQ SCH ×3 (06:00→18:17)
[2016-08-04] MEDS: FREE WATER G-TUBE SCH (06:00)
[2016-08-04] MEDS: HEPARIN SODIUM - SQ 10,000 UNITS/ML VIAL SQ SCH ×3 (06:22→20:17)
[2016-08-04] MEDS: CHLORHEXIDINE GLUCONATE 2 % 1 PACK (2 CLOTHS) TOP SCH (06:24)
--- NOTE | 2016-08-04 06:48 | HHI.CCPN ---
Subjective Remarks/Hospital Course 80 y/o NH patient with severe dehydration, UTI sepsis, respiratory failure admitted earlier. Nonverbal, minimally responsive. Cachectic, anasarca. 06/05 Patient is sedated with Diprivan and intubated. On Insulin drip. PEG tube was replaced by GI yesterday. 06/06: Remains sedated, orally intubated on mech ventilation. 06/07: Remains sedated, orally intubated on mechanical ventilation. Daily C Pap trials ongoing. 06/08: Sedated, arousable, orally intubated on mechanical ventilation. Failed C Pap trials with low tidal volumes and decreasing pressure support today. 06/09: Afebrile. Feeling CPAP trials again today due to low tidal volumes. Tolerating tube feeding and free water boluses. Positive BM. 06/10: Tmax 102. Currently 99.1. Currently a PSV trials. Extremely low tidal volumes however which requires extra pressure support. Eyes are open but does not follow commands. 06/11: no change. failed PSV trail for tachypnea. still altered, but this is baseline for him apparently. 06/12: no changes. slightly more awake, but not following commands, and still altered. discussed care with palliative who again talked with family, and they want aggressive measures. I think we will be forced to pursue tracheostomy, as I do not think it is safe to extubate this patient given mental status. 06/13: again failed SBT. RSBI 105 with persistent altered mental status. will pursue tracheostomy today. 06/14: trach yesterday. re-cultured yesterday per ID. will follow up cultures. need placement. 06/15: Tmax 99.8. Currently 99.7. Positive BM. Tolerating tube feeding. Opens eyes but does not follow commands. 06/16: MAXIMUM TEMPERATURE 100.7. Currently 98.8. Patient opens eyes but does not follow commands. 2 bowel movements yesterday. Tolerating tube feeding. 06/17: No change neurologically opens eyes- do not follow commands. Tolerating CPAP 04/24. No other acute events 06/18: Tolerated T piece up to 4 hours yesterday overnight was on Cipro 15 or 5. Intermittent episodes of nausea. KUB showed some gastric distention. I will consult GI. Patient came in with a Lennon at the PEG site. This was reasonable placed and a standard PEG tube was placed by Dr. Henson on 06/04/1606/19: Tolerated T piece for several hours yesterday. Intermittent vomiting some abdominal distention. GI has started on Reglan for possible gastroparesis. Will check CT abd pelvis 06/20 Tolerating TP >[address] abdomen pelvis no obstruction, PEG tube in appropriate place. 07/21: reconsulted for new tachycardia, tachypnea, respiratory distress, fever. In Brief, 80yM with end-stage dementia and COPD who initially presented with altered mental status and sepsis. chronic and declining course without any improvements. family wants aggressive care despite poor overall prognosis. most recently, sputum grew out MRSA, but at the time clinically stable and ID organizational research consultant considered this colonization. today with acute worsening tachypnea, tachycardia, fever. patient at baseline neurologic status per Dr. Dolan with whom I have discussed his care. unable to obtain additional history from patient. 07/22: lactate clearing overnight. wbc downtrending. mental status remains poor, but this is baseline for patient. still on mechanical ventilation. cultures pending. ct chest/abd/pelvis without over evidence of infectious process. 07/23: Patient seen and examined today. No acute changes overnight. Patient still remains ventilator for respiratory support. Need to continue follow lactic acid level for lactic acidosis. Patient transferred to [facility] for continued management facilitated by Dr. Morataya 07/24: Patient seen and examined today. No acute changes overnight. Patient still on mechanical ventilation for respiratory support. Patient clinically stabilizing at this time. Patient still with low-grade fevers. We'll start daily CPAP trials. 07/25 no issues overnight 07/27 no issues last night patient remained stable and unresponsive, opens eyes spontaneously no tracking no following commands 07/30 no issues overnight 07/31: tolerated CPAP until 9pm last night, placed back on a rate for tachypnea. vomiting improved. serum sodium slightly downtrended. 08/01: back on PRVC overnight. still tires out of CPAP. 08/02: Tolerated CPAP for 4 hours yesterday, No other issues overnight other than low grade fever. If tolerating CPAP > 12 hours attempt TP tomorrow 08/03: Tolerating C Pap 1005 since yesterday, now more than 24 hours. Attempt TP today for up to 8 hours. CXR mild pulmonary vascular congestion Subjective 08/04: On CPAP overnight. Will switch to T piece today. Afebrile. Tolerating tube feeds at 40 cc an hour. Positive BM. Neurologically unchanged. New blister on left heel. Objective Vital Signs Date Time Temp Pulse Resp B/P Pulse Ox O2 Delivery O2 Flow Rate FiO2 08/04/16 04:11 98 30 08/04/16 04:08 98.6 100 34 138/58 08/03/16 13:31 T-piece 7.00 Intake and Output 08/03/16 08/03/16 08/04/16 08:00 16:00 00:00 Intake Total 756 ml 950 ml 1069 ml Output Total 300 ml Balance 456 ml 950 ml 1069 ml Result Diagram: 08/03/16 0900 08/03/16 0745 Imaging Last Impressions Chest X-Ray 08/03/16 0600 Signed Impressions: Service Date/Time: July 04:29 - CONCLUSION: Mild pulmonary vascular congestion. No significant interval change. Nishant Garcia MD Abdomen X-Ray 07/28/16 0500 Signed Impressions: Service Date/Time: Thursday, July 28, 2016 04:17 - CONCLUSION: No gaseous distended loops of small or large bowel. Henri Lane MD Chest CT 07/21/16 0000 Signed Impressions: Service Date/Time: Thursday, July 21, 2016 16:26 - CONCLUSION: 1. Minimal bibasilar parenchymal changes without consolidation. 2. There is no significant pleural effusion. Stanley Parker MD FACR Abdomen/Pelvis CT 07/21/16 0000 Signed Impressions: Service Date/Time: Thursday, July 21, 2016 16:26 - CONCLUSION: 1. I do not see a source of infection. 2. There is mild induration in the root of the mesentery. This is nonspecific. Stanley Parker MD FACR Objective Remarks GENERAL: 80 yo male patient, critically ill, mechanically ventilated via tracheostomy HEAD: Normocephalic. EYES: PERRL. No scleral icterus. No scleral edema. Some drainage from right eye. NECK: Supple, trachea midline. No JVD. tracheostomy in place without erythema or bleeding. CARDIOVASCULAR: RRR. S1, S2. No S4. No murmur RESPIRATORY: Transmitted upper airway sounds clear with suctioning tracheostomy. Few crackles appreciated in the bases bilaterally. Symmetrical excursion. GASTROINTESTINAL: Abdomen soft, non-tender, nondistended. PEG tube is in place above the umbilicus very little erythema. MUSCULOSKELETAL: contracted bilateral upper and lower extremity.. With trace nonpitting peripheral upper and lower extremity edema. : No scrotal edema. Neuro: Opens eyes spontaneously. does not follow commands. extends LUE, withdraws x 3. Skin: Stage I decubitus ulcer coccyx 2 cm x 2 cm and open blister over her left heel about 1 x 1 cm Urinary Catheter: No Assessment to: Continue Date of Insertion: Jul 05, 2016 Vascular Central Line Catheter: No Assessment to: Continue A/P Problem List: (1) Severe sepsis with acute organ dysfunction ICD Code: A41.9 Status: Resolved (2) Acute respiratory failure ICD Code: J96.00 Status: Chronic (3) UTI (urinary tract infection) ICD Code: N39.0 Status: Resolved (4) Alzheimer's dementia ICD Code: F02.80 Status: Chronic (5) Fever ICD Code: R50.9 Status: Resolved (6) Global aphasia ICD Code: R47.02 Status: Chronic Assessment and Plan NEUROLOGY/PSYCH Alzheimer's dementia Hypoactive delirium Depression/anxiety -Acetaminophen for fever/Dilaudid as needed for pain management. Monitor neuro status. -Continue Provigil 400 mg daily in attempt increased alertness. Note has been on this since 06/25/16 with minimal improvement --Limit sedation if possible PULMONARY VDRF Healthcare associated pneumonia -Tolerated C Pap. Start Tp up to 8 hours and increase duration as ordered -Vent bundle -HOB at 30 degrees -s/p #8 Shiley percutaneous trach 06/13. (Dr. Morataya/Dr. Dai). Will attempt to downsize to a #6 Shiley tomorrow -Duonebs q6h and q2h prn. CARDIOVASCULAR Hypertension -Currently not requiring antihypertensives and/or vasopressors. -Telemetry will be continued -continue free water to 100cc po q8hr. GASTROENTEROLOGY Failure to thrive Gastroesophageal reflux disease Severe acute protein calorie malnutrition- severe Hypo-albuminemia -TF to goal as tolerated with Glucerna 1.5 goal of 50 cc an hour -On Pepcid.for GI prophylaxis -Colace twice a day with as needed MiraLAX for bowel regimen RENAL//FEN: BPH -Continue to Monitor renal function, -Lennon removed. voiding. No medical indication for lennon catheter. -electrolytes replacement per protocol. INFECTION DISEASE E. Cloacae UTI MRSA in sputum, colonized Klebsiella in sputum, colonized severe sepsis- resolving. Funguria with history of tropicalis and glabrata -Discontinued Zosyn/vancomycin and micafungin 08/04. Per ID note micafungin on to continue for 3-5 days. Currently afebrile normal white blood cell count. No indications for Zosyn or vancomycin at the present time. -Continue on Bactrim suppression treatment. Pertinent cultures 06/04 - urine - E. Cloacae 06/16 - sputum - Alla Tropicalis 06/27 blood - Staph Epi (1/2 bottles) 06/28 urine - alla glabrata 06/28 sputum - Klebsiella (intermediate to zosyn), MRSA 07/12 sputum - MRSA 07/18 sputum - MRSA, Klebsiella 07/21 sputum -MRSA, Klebsiella 07/21 blood -no growth for 2 days 07/21 urine -Alla glabrata HEMATOLOGY Normocytic anemia -Currently no indication for transfusion of blood proximally at this time -Hemoccult stool was negative -Transfuse if hemoglobin below 7. ENDOCRINOLOGY: Hyperglycemia of critical illness -Accu-Cheks with sliding scale insulin with Accu-Cheks every 6 hours to maintain euglycemia PROPHYLAXIS -GI prophylaxis-Pepcid q12h. -DVT prevention: SCDs. SQH 5000 q8hr SKIN Left heel blister Sacral decubitus ulcer stage I -Continue Multi-Podus boots, wound care following - Continue wrist splints alternating sides daily LINES -PIVs level 2 German Marinelli MD Aug 04, 2016 06:48
[2016-08-04] MEDS: SULFAMETHOXAZOLE-TRIMETHOPRIM DS 800-160 MG TAB PEG SCH ×2 (08:51→20:04)
[2016-08-04] MEDS: MULTIVITAMIN TAB PO SCH (08:51)
[2016-08-04] MEDS: SODIUM CHLORIDE 0.9% FLUSH 5 ML FLUSH IV FLUSH SCH ×2 (08:51→20:03)
[2016-08-04] MEDS: CHLORHEXIDINE 0.12% (ORAL KIT) 15 ML CUP MT SCH ×2 (08:51→20:04)
[2016-08-04] MEDS: MODAFINIL 200 MG TAB PO SCH (08:51)
[2016-08-04] MEDS: FAMOTIDINE 20 MG TAB NG SCH ×2 (08:51→20:04)
[2016-08-04] MEDS: RESP: ALBUTEROL 2.5 MG/IPRATROPIUM 0.5 MG NEB (SCH) NEB ×3 (09:56→20:48)
[2016-08-04] MEDS: ARTIFICIAL TEARS OPTH SOLN 15 ML BTL EACH EYE SCH ×2 (14:37→20:25)
--- NOTE | 2016-08-04 20:46 | HHI.PR ---
Subjective Remarks 80 YO male with Dementia, RF,Trach Pt aphasic Tolerates TF tolerates Trach collar Opens eyes No new complaint Objective Vital Signs Vital Signs Date Time Temp Pulse Resp B/P Pulse Ox O2 Delivery O2 Flow Rate FiO2 08/04/16 16:00 100 08/04/16 16:00 98.4 100 29 126/55 99 08/04/16 12:00 92 08/04/16 12:00 99.1 92 36 107/62 99 08/04/16 08:00 99.3 68 33 124/64 97 08/04/16 08:00 70 08/04/16 07:50 99 T-piece 28 08/04/16 04:11 98 30 08/04/16 04:08 98.6 100 34 138/58 100 08/04/16 04:00 70 08/04/16 04:00 30 08/04/16 00:42 98 30 08/04/16 00:02 98.3 66 29 110/58 98 08/04/16 00:00 30 08/04/16 00:00 63 08/03/16 21:51 96 30 I/O 08/03/16 08/03/16 08/03/16 08/04/16 08/04/16 08/04/16 07:00 15:00 23:00 07:00 15:00 23:00 Intake Total 756 ml 950 ml 1069 ml 506 ml 967 ml Output Total 300 ml Balance 456 ml 950 ml 1069 ml 506 ml 967 ml Intake Oral 0 ml 0 ml IV Total 350 ml 110 ml 760 ml 100 ml 225 ml Tube Feeding 206 ml 540 ml 109 ml 206 ml 462 ml Tube Irrigant 100 ml Other 200 ml 200 ml 200 ml 200 ml 280 ml Output Urine Total 300 ml # Voids 0 6 2 4 4 1 # Bowel Movements 4 3 1 4 1 Result Diagram: 08/03/16 0900 08/03/16 0745 Objective Remarks GENERAL: Elderly frail male, mild sob SKIN: Warm and dry. HEAD: Normocephalic. EYES: No scleral icterus. No injection or drainage. NECK: Supple, trachea midline. No JVD or lymphadenopathy. CARDIOVASCULAR: Regular rate and rhythm without murmurs, gallops, or rubs. RESPIRATORY: Breath sounds equal bilaterally. No accessory muscle use. GASTROINTESTINAL: Abdomen soft, non-tender, nondistended. MUSCULOSKELETAL: No cyanosis, or edema. BACK: Nontender without obvious deformity. No CVA tenderness. A/P Assessment and Plan RF,s/p Trach Aphasia Dysphagia Dementia PLAN: Aerosol nebs Tracheal suction Levsin qid Tube feeding 40 cc/hr cont trach collar CPAP prn only Silverio Reyes MD Aug 04, 2016 20:46
[2016-08-05] VITALS (27 sets, daily range): BP systolic 105–140; BP diastolic 47–76; PULSE 80–120; RESP 27–40; TEMP 99.2–100.1; O2SAT 94–100
[2016-08-05] MEDS: INSULIN NovoLIN REGULAR SUPPLEMENTAL SCALE SQ SCH ×4 (00:31→17:58)
[2016-08-05] MEDS: PIPERACIL-TAZO 4.5 GM PREMIX 100 ML IV SCH ×4 (01:52→20:31)
[2016-08-05] MEDS: CHLORHEXIDINE GLUCONATE 2 % 1 PACK (2 CLOTHS) TOP SCH (01:52)
[2016-08-05] MEDS: RESP: ALBUTEROL 2.5 MG/IPRATROPIUM 0.5 MG NEB (SCH) NEB ×4 (03:45→21:16)
[2016-08-05] MEDS: ARTIFICIAL TEARS OPTH SOLN 15 ML BTL EACH EYE SCH ×3 (05:16→20:32)
[2016-08-05] MEDS: HEPARIN SODIUM - SQ 10,000 UNITS/ML VIAL SQ SCH ×3 (05:17→20:31)
[2016-08-05 05:56] LABS: AUTOMATED NEUTROPHIL # 5.9 TH/MM3 (1.8-7.7); BASOPHIL # 0.1 TH/MM3 (0-0.2); BASOPHIL % 1.6 % (0.0-2.0); EOSINOPHIL # 0.3 TH/MM3 (0-0.4); EOSINOPHIL % 3.7 % (0.0-4.0); HEMATOCRIT 33.1 % (39.0-51.0); HEMO FLAGS DIFF FINAL; LYMPH % 16.5 % (9.0-44.0); LYMPHOCYTE # 1.4 TH/MM3 (1.0-4.8); MEAN CELL VOLUME 83.1 FL (80.0-100.0); MEAN CORPUSCULAR HEMOGLOBIN 26.9 PG (27.0-34.0); MEAN CORPUSCULAR HGB CONC 32.4 % (32.0-36.0); MONO % 7.8 % (0.0-8.0); NEUT % 70.4 % (16.0-70.0); PLATELET COUNT 367 TH/MM3 (150-450); RED BLOOD COUNT 3.98 MIL/MM3 (4.50-5.90); RED CELL DISTRIBUTION WIDTH 17.2 % (11.6-17.2); WHITE BLOOD COUNT 8.4 TH/MM3 (4.0-11.0)
[2016-08-05 06:03] LABS: POTASSIUM 4.3 MEQ/L (3.5-5.1)
[2016-08-05 06:05] LABS: BICARBONATE 24.1 MEQ/L (21.0-32.0); MAGNESIUM 2.4 MG/DL (1.5-2.5)
--- NOTE | 2016-08-05 06:44 | HHI.CCPN ---
Subjective Remarks/Hospital Course 80 y/o NH patient with severe dehydration, UTI sepsis, respiratory failure admitted earlier. Nonverbal, minimally responsive. Cachectic, anasarca. 06/05 Patient is sedated with Diprivan and intubated. On Insulin drip. PEG tube was replaced by GI yesterday. 06/06: Remains sedated, orally intubated on mech ventilation. 06/07: Remains sedated, orally intubated on mechanical ventilation. Daily C Pap trials ongoing. 06/08: Sedated, arousable, orally intubated on mechanical ventilation. Failed C Pap trials with low tidal volumes and decreasing pressure support today. 06/09: Afebrile. Feeling CPAP trials again today due to low tidal volumes. Tolerating tube feeding and free water boluses. Positive BM. 06/10: Tmax 102. Currently 99.1. Currently a PSV trials. Extremely low tidal volumes however which requires extra pressure support. Eyes are open but does not follow commands. 06/11: no change. failed PSV trail for tachypnea. still altered, but this is baseline for him apparently. 06/12: no changes. slightly more awake, but not following commands, and still altered. discussed care with palliative who again talked with family, and they want aggressive measures. I think we will be forced to pursue tracheostomy, as I do not think it is safe to extubate this patient given mental status. 06/13: again failed SBT. RSBI 105 with persistent altered mental status. will pursue tracheostomy today. 06/14: trach yesterday. re-cultured yesterday per ID. will follow up cultures. need placement. 06/15: Tmax 99.8. Currently 99.7. Positive BM. Tolerating tube feeding. Opens eyes but does not follow commands. 06/16: MAXIMUM TEMPERATURE 100.7. Currently 98.8. Patient opens eyes but does not follow commands. 2 bowel movements yesterday. Tolerating tube feeding. 06/17: No change neurologically opens eyes- do not follow commands. Tolerating CPAP 04/24. No other acute events 06/18: Tolerated T piece up to 4 hours yesterday overnight was on Cipro 15 or 5. Intermittent episodes of nausea. KUB showed some gastric distention. I will consult GI. Patient came in with a Lennno at the PEG site. This was reasonable placed and a standard PEG tube was placed by Dr. Henson on 06/04/1606/19: Tolerated T piece for several hours yesterday. Intermittent vomiting some abdominal distention. GI has started on Reglan for possible gastroparesis. Will check CT abd pelvis 06/20 Tolerating TP >[address] abdomen pelvis no obstruction, PEG tube in appropriate place. 07/21: reconsulted for new tachycardia, tachypnea, respiratory distress, fever. In Brief, 80yM with end-stage dementia and COPD who initially presented with altered mental status and sepsis. chronic and declining course without any improvements. family wants aggressive care despite poor overall prognosis. most recently, sputum grew out MRSA, but at the time clinically stable and ID contact center consultant considered this colonization. today with acute worsening tachypnea, tachycardia, fever. patient at baseline neurologic status per Dr. Dolan with whom I have discussed his care. unable to obtain additional history from patient. 07/22: lactate clearing overnight. wbc downtrending. mental status remains poor, but this is baseline for patient. still on mechanical ventilation. cultures pending. ct chest/abd/pelvis without over evidence of infectious process. 07/23: Patient seen and examined today. No acute changes overnight. Patient still remains ventilator for respiratory support. Need to continue follow lactic acid level for lactic acidosis. Patient transferred to [place] for continued management facilitated by Dr. Morataya 07/24: Patient seen and examined today. No acute changes overnight. Patient still on mechanical ventilation for respiratory support. Patient clinically stabilizing at this time. Patient still with low-grade fevers. We'll start daily CPAP trials. 07/25 no issues overnight 07/27 no issues last night patient remained stable and unresponsive, opens eyes spontaneously no tracking no following commands 07/30 no issues overnight 07/31: tolerated CPAP until 9pm last night, placed back on a rate for tachypnea. vomiting improved. serum sodium slightly downtrended. 08/01: back on PRVC overnight. still tires out of CPAP. 08/02: Tolerated CPAP for 4 hours yesterday, No other issues overnight other than low grade fever. If tolerating CPAP > 12 hours attempt TP tomorrow 08/03: Tolerating C Pap 1005 since yesterday, now more than 24 hours. Attempt TP today for up to 8 hours. CXR mild pulmonary vascular congestion 08/04: On CPAP overnight. Will switch to T piece today. Afebrile. Tolerating tube feeds at 40 cc an hour. Positive BM. Neurologically unchanged. New blister on left heel. Subjective 08/05: On CPAP overnight. Tolerated 12 hours T piece overnight. Tmax 99 7. Tolerating tube feeding. Positive BM. Exchanged trach as maintain #6 Shiley DFEN with tube exchanger without complication. Objective Vital Signs Date Time Temp Pulse Resp B/P Pulse Ox O2 Delivery O2 Flow Rate FiO2 08/05/16 04:05 99 30 08/05/16 04:00 99.7 80 31 123/62 08/04/16 20:48 T-piece 5.00 Intake and Output 08/04/16 08/04/16 08/05/16 08:00 16:00 00:00 Intake Total 506 ml 967 ml 626 ml Balance 506 ml 967 ml 626 ml Result Diagram: 08/05/16 0547 08/05/16 0547 Imaging Last Impressions Chest X-Ray 08/03/16 0600 Signed Impressions: Service Date/Time: July 04:29 - CONCLUSION: Mild pulmonary vascular congestion. No significant interval change. Nishant Garcia MD Abdomen X-Ray 07/28/16 0500 Signed Impressions: Service Date/Time: Thursday, July 28, 2016 04:17 - CONCLUSION: No gaseous distended loops of small or large bowel. Henri Lane MD Chest CT 07/21/16 0000 Signed Impressions: Service Date/Time: Thursday, July 21, 2016 16:26 - CONCLUSION: 1. Minimal bibasilar parenchymal changes without consolidation. 2. There is no significant pleural effusion. Stanley Parker MD FACR Abdomen/Pelvis CT 07/21/16 0000 Signed Impressions: Service Date/Time: Thursday, July 21, 2016 16:26 - CONCLUSION: 1. I do not see a source of infection. 2. There is mild induration in the root of the mesentery. This is nonspecific. Stanley Parker MD FACR Objective Remarks GENERAL: 80 yo male patient, critically ill, mechanically ventilated via tracheostomy HEAD: Normocephalic. EYES: PERRL. No scleral icterus. No scleral edema. Some drainage from right eye. NECK: Supple, trachea midline. No JVD. tracheostomy in place without erythema or bleeding. CARDIOVASCULAR: RRR. S1, S2. No S4. No murmur RESPIRATORY: Transmitted upper airway sounds clear with suctioning tracheostomy. Few crackles appreciated in the bases bilaterally. Symmetrical excursion. GASTROINTESTINAL: Abdomen soft, non-tender, nondistended. PEG tube is in place above the umbilicus very little erythema. MUSCULOSKELETAL: contracted bilateral upper and lower extremity.. With trace nonpitting peripheral upper and lower extremity edema. : No scrotal edema. Neuro: Opens eyes spontaneously. does not follow commands. extends LUE, withdraws x 3. Skin: Stage I decubitus ulcer coccyx 2 cm x 2 cm and open blister over her left heel about 1 x 1 cm Date of Insertion: Jul 05, 2016 A/P Problem List: (1) Severe sepsis with acute organ dysfunction ICD Code: A41.9 Status: Resolved (2) Acute respiratory failure ICD Code: J96.00 Status: Chronic (3) UTI (urinary tract infection) ICD Code: N39.0 Status: Resolved (4) Alzheimer's dementia ICD Code: F02.80 Status: Chronic (5) Fever ICD Code: R50.9 Status: Resolved (6) Global aphasia ICD Code: R47.02 Status: Chronic Assessment and Plan NEUROLOGY/PSYCH Alzheimer's dementia Hypoactive delirium Depression/anxiety -Acetaminophen for fever/Dilaudid as needed for pain management. -Monitor neuro status. -Continue Provigil 400 mg daily in attempt increased alertness. Note has been on this since 06/25/16 with minimal improvement --Limit sedation if possible PULMONARY VDRF Healthcare associated pneumonia -Tolerated C Pap. Start Tp up to 8 hours and increase duration as ordered -Vent bundle -HOB at 30 degrees -s/p #8 [place] percutaneous trach 06/13. (Dr. Morataya/Dr. Dai). Downsized to a # 6 Johana DFEN 08/05 -Duonebs q6h and q2h prn. CARDIOVASCULAR Hypertension -Currently not requiring antihypertensives and/or vasopressors. -Telemetry will be continued -continue free water to 100cc po q8hr. GASTROENTEROLOGY Failure to thrive Gastroesophageal reflux disease Severe acute protein calorie malnutrition- severe Hypo-albuminemia -TF to goal as tolerated with Glucerna 1.5 goal of 50 cc an hour -On Pepcid.for GI prophylaxis -Colace twice a day with as needed MiraLAX for bowel regimen RENAL//FEN: BPH -Continue to Monitor renal function, -Lennon removed. voiding. No medical indication for lennon catheter. -electrolytes replacement per protocol. INFECTION DISEASE E. Cloacae UTI MRSA in sputum, colonized Klebsiella in sputum, colonized severe sepsis- resolving. Funguria with history of tropicalis and glabrata -Discontinued Zosyn/vancomycin and micafungin 08/04. Per ID note micafungin on to continue for 3-5 days. Currently afebrile normal white blood cell count. No indications for Zosyn or vancomycin at the present time. -Continue on Bactrim suppression treatment. Pertinent cultures 06/04 - urine - E. Cloacae 06/16 - sputum - Alla Tropicalis 06/27 blood - Staph Epi (1/2 bottles) 06/28 urine - alla glabrata 06/28 sputum - Klebsiella (intermediate to zosyn), MRSA 07/12 sputum - MRSA 07/18 sputum - MRSA, Klebsiella 07/21 sputum -MRSA, Klebsiella 07/21 blood -no growth for 2 days 07/21 urine -Alla glabrata HEMATOLOGY Normocytic anemia -Currently no indication for transfusion of blood proximally at this time -Hemoccult stool was negative -Transfuse if hemoglobin below 7. ENDOCRINOLOGY: Hyperglycemia of critical illness -Accu-Cheks with sliding scale insulin with Accu-Cheks every 6 hours to maintain euglycemia PROPHYLAXIS -GI prophylaxis-Pepcid q12h. -DVT prevention: SCDs. SQH 5000 q8hr SKIN Left heel blister Sacral decubitus ulcer stage I -Continue Multi-Podus boots, wound care following - Continue wrist splints alternating sides daily LINES -PIVs level 2 German Marinelli MD Aug 05, 2016 06:44
[2016-08-05] MEDS ORDERED: MIDAZOLAM HCL 5 MG/ML VIAL (1 ML) IVP ONE (06:45)
[2016-08-05] MEDS ORDERED: MIDAZOLAM HCL 5 MG/ML VIAL (1 ML) ONE (06:49)
--- NOTE | 2016-08-05 07:43 | RADHPO ---
EXAM DATE/TIME: 08/05/2016 07:26 [facility] COMPARISON: CHEST SINGLE AP, August 03, 2016, 4:29. INDICATIONS : Trach exchange, sepsis MEDICAL HISTORY : None. SURGICAL HISTORY : None. ENCOUNTER: Subsequent ACUITY: 2 weeks PAIN SCORE: Non-responsive. LOCATION: Bilateral chest FINDINGS: Tracheostomy in satisfactory position. Mild basilar opacity similar to August 03. No significant effus ion. No pneumothorax. CONCLUSION: 1. Tracheostomy satisfactory position. Basilar opacity not definitely changed from August 03. Mina Varghese MD on August 05, 2016 at 7:41 Board Certified Radiologist. This report was verified electronically.
[2016-08-05] MEDS: CHLORHEXIDINE 0.12% (ORAL KIT) 15 ML CUP MT SCH ×2 (08:07→20:32)
[2016-08-05] MEDS: SODIUM CHLORIDE 0.9% FLUSH 5 ML FLUSH IV FLUSH SCH ×2 (08:08→20:31)
[2016-08-05] MEDS: MODAFINIL 200 MG TAB PO SCH (09:14)
[2016-08-05] MEDS: FAMOTIDINE 20 MG TAB NG SCH ×2 (09:14→20:31)
[2016-08-05] MEDS: SULFAMETHOXAZOLE-TRIMETHOPRIM DS 800-160 MG TAB PEG SCH ×2 (09:14→20:31)
[2016-08-05] MEDS: MULTIVITAMIN TAB PO SCH (09:14)
[2016-08-05] MEDS: POTASSIUM PHOSPHATE/SODIUM PHOSPHATE 250 MG TAB PO SCH ×2 (13:27→20:31)
--- NOTE | 2016-08-05 19:03 | HHI.PR ---
Subjective Remarks 80 YO male with Dementia, RF,Trach Pt aphasic Tolerates TF tolerates Trach collar Opens eyes trach changed today. Objective Vital Signs Vital Signs Date Time Temp Pulse Resp B/P Pulse Ox O2 Delivery O2 Flow Rate FiO2 08/05/16 16:00 99.7 102 34 105/47 94 08/05/16 16:00 102 08/05/16 12:00 106 08/05/16 12:00 99.8 106 36 140/76 97 08/05/16 08:51 97 T-piece 28 08/05/16 08:00 84 08/05/16 08:00 99.2 84 32 131/53 97 08/05/16 06:20 99 T-piece 5.00 28 08/05/16 04:05 99 30 08/05/16 04:00 30 08/05/16 04:00 99.7 80 31 123/62 99 08/05/16 04:00 80 08/05/16 01:35 98 30 08/05/16 00:00 84 08/05/16 00:00 30 08/05/16 00:00 99.2 84 32 128/63 99 08/04/16 21:19 100 30 08/04/16 20:48 98 T-piece 5.00 28 08/04/16 20:00 86 08/04/16 20:00 99.2 92 16 119/63 100 I/O 08/04/16 08/04/16 08/04/16 08/05/16 08/05/16 08/05/16 07:00 15:00 23:00 07:00 15:00 23:00 Intake Total 506 ml 967 ml 626 ml 554 ml 745 ml Output Total 200 ml 750 ml Balance 506 ml 967 ml 626 ml 354 ml -5 ml IV Total 100 ml 225 ml 76 ml 106 ml 225 ml Tube Feeding 206 ml 462 ml 330 ml 328 ml 340 ml Other 200 ml 280 ml 220 ml 120 ml 180 ml Output Urine Total 200 ml 750 ml # Voids 4 4 2 1 # Bowel Movements 4 1 1 2 2 Result Diagram: 08/05/16 0547 08/05/16 0547 Objective Remarks GENERAL: Elderly frail male, mild sob SKIN: Warm and dry. HEAD: Normocephalic. EYES: No scleral icterus. No injection or drainage. NECK: Supple, trachea midline. No JVD or lymphadenopathy. CARDIOVASCULAR: Regular rate and rhythm without murmurs, gallops, or rubs. RESPIRATORY: Breath sounds equal bilaterally. No accessory muscle use. GASTROINTESTINAL: Abdomen soft, non-tender, nondistended. MUSCULOSKELETAL: No cyanosis, or edema. BACK: Nontender without obvious deformity. No CVA tenderness. A/P Assessment and Plan RF,s/p Trach Aphasia Dysphagia Dementia PLAN: Aerosol nebs Tracheal suction Levsin qid Tube feeding 40 cc/hr cont trach collar CPAP prn only Silverio Reyes MD Aug 05, 2016 19:03
[2016-08-06] VITALS (28 sets, daily range): BP systolic 115–152; BP diastolic 50–85; PULSE 88–106; RESP 27–39; TEMP 99.1–100; O2SAT 94–100
[2016-08-06] MEDS: INSULIN NovoLIN REGULAR SUPPLEMENTAL SCALE SQ SCH ×5 (00:17→23:55)
[2016-08-06] MEDS: PIPERACIL-TAZO 4.5 GM PREMIX 100 ML IV SCH ×4 (02:09→20:12)
[2016-08-06] MEDS: RESP: ALBUTEROL 2.5 MG/IPRATROPIUM 0.5 MG NEB (SCH) NEB ×4 (03:00→22:33)
[2016-08-06] MEDS: HEPARIN SODIUM - SQ 10,000 UNITS/ML VIAL SQ SCH ×3 (05:20→22:15)
[2016-08-06] MEDS: ARTIFICIAL TEARS OPTH SOLN 15 ML BTL EACH EYE SCH ×3 (05:20→20:21)
[2016-08-06] MEDS: POTASSIUM PHOSPHATE/SODIUM PHOSPHATE 250 MG TAB PO SCH (05:21)
[2016-08-06] MEDS: CHLORHEXIDINE 0.12% (ORAL KIT) 15 ML CUP MT SCH ×2 (07:39→20:13)
[2016-08-06] MEDS: SODIUM CHLORIDE 0.9% FLUSH 5 ML FLUSH IV FLUSH SCH ×2 (07:39→20:13)
[2016-08-06] MEDS: SULFAMETHOXAZOLE-TRIMETHOPRIM DS 800-160 MG TAB PEG SCH ×2 (08:45→20:13)
[2016-08-06] MEDS: FAMOTIDINE 20 MG TAB NG SCH ×2 (08:45→20:13)
[2016-08-06] MEDS: MULTIVITAMIN TAB PO SCH (08:45)
[2016-08-06] MEDS: MODAFINIL 200 MG TAB PO SCH (08:46)
[2016-08-06 15:22] LABS: C. DIFF EPI 027 PRESUMPTIVE NEGATIVE (NEGATIVE); C. DIFF TOXIN PCR NEGATIVE (NEGATIVE)
--- NOTE | 2016-08-06 17:26 | HHI.PR ---
Subjective Remarks 80 YO male with Dementia, RF,Trach Pt aphasic Tolerates TF tolerates Trach collar Opens eyes Objective Vital Signs Vital Signs Date Time Temp Pulse Resp B/P Pulse Ox O2 Delivery O2 Flow Rate FiO2 08/06/16 16:00 100 08/06/16 16:00 T-Piece 28 08/06/16 16:00 100.0 100 33 131/79 95 08/06/16 12:00 99.4 90 39 122/66 97 08/06/16 12:00 T-Piece 08/06/16 12:00 90 08/06/16 08:31 98 T-piece 08/06/16 08:00 94 08/06/16 08:00 99.3 94 35 115/50 98 08/06/16 08:00 T-Piece 08/06/16 05:30 106 35 97 08/06/16 05:15 88 33 97 08/06/16 05:00 88 32 95 08/06/16 04:45 94 37 95 08/06/16 04:30 96 30 97 08/06/16 04:15 96 37 94 08/06/16 04:09 98 36 126/67 97 08/06/16 04:04 104 31 152/85 96 08/06/16 04:00 96 36 95 08/06/16 04:00 99.7 08/06/16 04:00 96 08/06/16 03:45 100 36 95 08/06/16 03:30 102 37 97 08/06/16 03:15 102 34 98 08/06/16 03:00 96 32 98 08/06/16 02:45 96 31 98 08/06/16 02:30 94 32 97 08/06/16 02:15 96 33 97 08/06/16 02:00 106 34 99 08/06/16 01:45 94 27 98 08/06/16 01:30 94 34 99 08/06/16 00:15 90 32 97 08/06/16 00:04 94 32 136/72 98 08/06/16 00:00 99.1 08/06/16 00:00 92 31 97 08/06/16 00:00 92 08/05/16 23:45 88 34 98 08/05/16 23:30 88 31 99 08/05/16 23:15 98 35 96 08/05/16 23:00 92 35 96 08/05/16 22:45 96 35 97 08/05/16 22:30 96 31 96 08/05/16 22:15 94 32 95 08/05/16 22:00 98 35 96 08/05/16 22:00 98 08/05/16 21:45 98 35 97 08/05/16 21:30 92 30 100 08/05/16 21:20 98 T-piece 28 08/05/16 21:15 100 28 97 08/05/16 21:00 98 33 99 08/05/16 20:45 96 37 98 08/05/16 20:30 98 32 99 08/05/16 20:15 120 27 97 08/05/16 20:04 100 38 126/60 97 08/05/16 20:00 98 40 97 08/05/16 20:00 100.1 08/05/16 20:00 98 I/O 08/05/16 08/05/16 08/05/16 08/06/16 08/06/16 08/06/16 07:00 15:00 23:00 07:00 15:00 23:00 Intake Total 554 ml 745 ml 482 ml 633 ml 816 ml Output Total 200 ml 750 ml Balance 354 ml -5 ml 482 ml 633 ml 816 ml IV Total 106 ml 225 ml 100 ml 100 ml 225 ml Tube Feeding 328 ml 340 ml 282 ml 333 ml 411 ml Other 120 ml 180 ml 100 ml 200 ml 180 ml Output Urine Total 200 ml 750 ml # Voids 1 2 4 4 1 # Bowel Movements 2 2 2 4 2 1 Result Diagram: 08/05/16 0547 08/05/16 0547 Objective Remarks GENERAL: Elderly frail male, mild sob SKIN: Warm and dry. HEAD: Normocephalic. EYES: No scleral icterus. No injection or drainage. NECK: Supple, trachea midline. No JVD or lymphadenopathy. CARDIOVASCULAR: Regular rate and rhythm without murmurs, gallops, or rubs. RESPIRATORY: Breath sounds equal bilaterally. No accessory muscle use. GASTROINTESTINAL: Abdomen soft, non-tender, nondistended. MUSCULOSKELETAL: No cyanosis, or edema. BACK: Nontender without obvious deformity. No CVA tenderness. A/P Assessment and Plan RF,s/p Trach Aphasia Dysphagia Dementia PLAN: Aerosol nebs Tracheal suction Levsin qid Tube feeding 40 cc/hr cont trach collar CPAP prn only Silverio Reyes MD Aug 06, 2016 17:26
--- NOTE | 2016-08-06 23:08 | HHI.CCPN ---
Subjective Remarks/Hospital Course 80 y/o NH patient with severe dehydration, UTI sepsis, respiratory failure admitted earlier. Nonverbal, minimally responsive. Cachectic, anasarca. 06/05 Patient is sedated with Diprivan and intubated. On Insulin drip. PEG tube was replaced by GI yesterday. 06/06: Remains sedated, orally intubated on mech ventilation. 06/07: Remains sedated, orally intubated on mechanical ventilation. Daily C Pap trials ongoing. 06/08: Sedated, arousable, orally intubated on mechanical ventilation. Failed C Pap trials with low tidal volumes and decreasing pressure support today. 06/09: Afebrile. Feeling CPAP trials again today due to low tidal volumes. Tolerating tube feeding and free water boluses. Positive BM. 06/10: Tmax 102. Currently 99.1. Currently a PSV trials. Extremely low tidal volumes however which requires extra pressure support. Eyes are open but does not follow commands. 06/11: no change. failed PSV trail for tachypnea. still altered, but this is baseline for him apparently. 06/12: no changes. slightly more awake, but not following commands, and still altered. discussed care with palliative who again talked with family, and they want aggressive measures. I think we will be forced to pursue tracheostomy, as I do not think it is safe to extubate this patient given mental status. 06/13: again failed SBT. RSBI 105 with persistent altered mental status. will pursue tracheostomy today. 06/14: trach yesterday. re-cultured yesterday per ID. will follow up cultures. need placement. 06/15: Tmax 99.8. Currently 99.7. Positive BM. Tolerating tube feeding. Opens eyes but does not follow commands. 06/16: MAXIMUM TEMPERATURE 100.7. Currently 98.8. Patient opens eyes but does not follow commands. 2 bowel movements yesterday. Tolerating tube feeding. 06/17: No change neurologically opens eyes- do not follow commands. Tolerating CPAP 04/24. No other acute events 06/18: Tolerated T piece up to 4 hours yesterday overnight was on Cipro 15 or 5. Intermittent episodes of nausea. KUB showed some gastric distention. I will consult GI. Patient came in with a Lennon at the PEG site. This was reasonable placed and a standard PEG tube was placed by Dr. Henson on 06/04/1606/19: Tolerated T piece for several hours yesterday. Intermittent vomiting some abdominal distention. GI has started on Reglan for possible gastroparesis. Will check CT abd pelvis 06/20 Tolerating TP >[address] abdomen pelvis no obstruction, PEG tube in appropriate place. 07/21: reconsulted for new tachycardia, tachypnea, respiratory distress, fever. In Brief, 80yM with end-stage dementia and COPD who initially presented with altered mental status and sepsis. chronic and declining course without any improvements. family wants aggressive care despite poor overall prognosis. most recently, sputum grew out MRSA, but at the time clinically stable and ID retail sales consultant considered this colonization. today with acute worsening tachypnea, tachycardia, fever. patient at baseline neurologic status per Dr. Dolan with whom I have discussed his care. unable to obtain additional history from patient. 07/22: lactate clearing overnight. wbc downtrending. mental status remains poor, but this is baseline for patient. still on mechanical ventilation. cultures pending. ct chest/abd/pelvis without over evidence of infectious process. 07/23: Patient seen and examined today. No acute changes overnight. Patient still remains ventilator for respiratory support. Need to continue follow lactic acid level for lactic acidosis. Patient transferred to [facility] for continued management facilitated by Dr. Morataya 07/24: Patient seen and examined today. No acute changes overnight. Patient still on mechanical ventilation for respiratory support. Patient clinically stabilizing at this time. Patient still with low-grade fevers. We'll start daily CPAP trials. 07/25 no issues overnight 07/27 no issues last night patient remained stable and unresponsive, opens eyes spontaneously no tracking no following commands 07/30 no issues overnight 07/31: tolerated CPAP until 9pm last night, placed back on a rate for tachypnea. vomiting improved. serum sodium slightly downtrended. 08/01: back on PRVC overnight. still tires out of CPAP. 08/02: Tolerated CPAP for 4 hours yesterday, No other issues overnight other than low grade fever. If tolerating CPAP > 12 hours attempt TP tomorrow 08/03: Tolerating C Pap 1005 since yesterday, now more than 24 hours. Attempt TP today for up to 8 hours. CXR mild pulmonary vascular congestion 08/04: On CPAP overnight. Will switch to T piece today. Afebrile. Tolerating tube feeds at 40 cc an hour. Positive BM. Neurologically unchanged. New blister on left heel. 08/05: On CPAP overnight. Tolerated 12 hours T piece overnight. Tmax 99 7. Tolerating tube feeding. Positive BM. Exchanged trach as maintain #6 Shiley DFEN with tube exchanger without complication. Subjective 08/06: On T-bar since tracheostomy exchange yesterday. Tmax 100. Tolerating tubing. Positive BM. Objective Vital Signs Date Time Temp Pulse Resp B/P Pulse Ox O2 Delivery O2 Flow Rate FiO2 08/06/16 22:38 100 T-piece 6.00 28 08/06/16 16:00 100 08/06/16 16:00 100.0 33 131/79 Intake and Output 08/05/16 08/05/16 08/06/16 08:00 16:00 00:00 Intake Total 554 ml 745 ml 482 ml Output Total 200 ml 750 ml Balance 354 ml -5 ml 482 ml Result Diagram: 08/05/16 0547 08/05/16 0547 Imaging Last Impressions Chest X-Ray 08/05/16 0000 Signed Impressions: Service Date/Time: Friday, August 05, 2016 07:26 - CONCLUSION: 1. Tracheostomy satisfactory position. Basilar opacity not definitely changed from August 03. Mina Varghese MD Abdomen X-Ray 07/28/16 0500 Signed Impressions: Service Date/Time: Thursday, July 28, 2016 04:17 - CONCLUSION: No gaseous distended loops of small or large bowel. Henri Lane MD Chest CT 07/21/16 0000 Signed Impressions: Service Date/Time: Thursday, July 21, 2016 16:26 - CONCLUSION: 1. Minimal bibasilar parenchymal changes without consolidation. 2. There is no significant pleural effusion. Stanley Parker MD FACR Abdomen/Pelvis CT 07/21/16 0000 Signed Impressions: Service Date/Time: Thursday, July 21, 2016 16:26 - CONCLUSION: 1. I do not see a source of infection. 2. There is mild induration in the root of the mesentery. This is nonspecific. Stanley Parker MD FACR Objective Remarks GENERAL: 80 yo male patient, critically ill, mechanically ventilated via tracheostomy HEAD: Normocephalic. EYES: PERRL. No scleral icterus. No scleral edema. Some drainage from right eye. NECK: Supple, trachea midline. No JVD. tracheostomy in place without erythema or bleeding. CARDIOVASCULAR: RRR. S1, S2. No S4. No murmur RESPIRATORY: Transmitted upper airway sounds clear with suctioning tracheostomy. Few crackles appreciated in the bases bilaterally. Symmetrical excursion. GASTROINTESTINAL: Abdomen soft, non-tender, nondistended. PEG tube is in place above the umbilicus very little erythema. MUSCULOSKELETAL: contracted bilateral upper and lower extremity.. With trace nonpitting peripheral upper and lower extremity edema. : No scrotal edema. Neuro: Opens eyes spontaneously. does not follow commands. extends LUE, withdraws x 3. Skin: Stage I decubitus ulcer coccyx 2 cm x 2 cm and open blister over her left heel about 1 x 1 cm Date of Insertion: Jul 05, 2016 A/P Problem List: (1) Severe sepsis with acute organ dysfunction ICD Code: A41.9 Status: Resolved (2) Acute respiratory failure ICD Code: J96.00 Status: Chronic (3) UTI (urinary tract infection) ICD Code: N39.0 Status: Resolved (4) Alzheimer's dementia ICD Code: F02.80 Status: Chronic (5) Fever ICD Code: R50.9 Status: Resolved (6) Global aphasia ICD Code: R47.02 Status: Chronic Assessment and Plan NEUROLOGY/PSYCH Alzheimer's dementia Hypoactive delirium Depression/anxiety -Acetaminophen for fever/Dilaudid as needed for pain management. -Monitor neuro status. -Continue Provigil 400 mg daily in attempt increased alertness. Note has been on this since 06/25/16 with minimal improvement --Limit sedation if possible PULMONARY VDRF Healthcare associated pneumonia -Tolerated C Pap. No ordered when necessary --Continue T piece as tolerated -HOB at 30 degrees -s/p #8 [place] percutaneous trach 06/13. (Dr. Morataya/Dr. Dai). Downsized to a # 6 Johana DFEN 08/05 -Duonebs q6h and q2h prn. CARDIOVASCULAR Hypertension -Currently not requiring antihypertensives and/or vasopressors. -Telemetry will be continued -continue free water to 100cc po q8hr. GASTROENTEROLOGY Failure to thrive Gastroesophageal reflux disease Severe acute protein calorie malnutrition- severe Hypo-albuminemia -TF to goal as tolerated with Glucerna 1.5 goal of 50 cc an hour -On Pepcid.for GI prophylaxis -Colace twice a day with as needed MiraLAX for bowel regimen RENAL//FEN: BPH -Continue to Monitor renal function, -Lennon removed. voiding. No medical indication for lennon catheter. -electrolytes replacement per protocol. INFECTION DISEASE E. [place] UTI MRSA in sputum, colonized Klebsiella in sputum, colonized severe sepsis- resolving. Funguria with history of tropicalis and glabrata -Discontinued Zosyn/vancomycin and micafungin 08/04. Per ID note micafungin on to continue for 3-5 days. Currently afebrile normal white blood cell count. No indications for Zosyn or vancomycin at the present time. -Continue on Bactrim suppression treatment. Pertinent cultures 06/04 - urine - E. [place] 06/16 - sputum - Alla Tropicalis 06/27 blood - Staph Epi (1/2 bottles) 06/28 urine - alla glabrata 06/28 sputum - Klebsiella (intermediate to zosyn), MRSA 07/12 sputum - MRSA 07/18 sputum - MRSA, Klebsiella 07/21 sputum -MRSA, Klebsiella 07/21 blood -no growth for 2 days 07/21 urine -Alla glabrata HEMATOLOGY Normocytic anemia -Currently no indication for transfusion of blood proximally at this time -Hemoccult stool was negative -Transfuse if hemoglobin below 7. ENDOCRINOLOGY: Hyperglycemia of critical illness -Accu-Cheks with sliding scale insulin with Accu-Cheks every 6 hours to maintain euglycemia PROPHYLAXIS -GI prophylaxis-Pepcid q12h. -DVT prevention: SCDs. SQH 5000 q8hr SKIN Left heel blister Sacral decubitus ulcer stage I -Continue Multi-Podus boots, wound care following - Continue wrist splints alternating sides daily LINES -PIVs level 2 German Marinelli MD Aug 06, 2016 23:08
[2016-08-07] VITALS (11 sets, daily range): BP systolic 117–172; BP diastolic 57–77; PULSE 83–118; RESP 22–32; TEMP 98.2–98.8; O2SAT 90–99
[2016-08-07] MEDS: PIPERACIL-TAZO 4.5 GM PREMIX 100 ML IV SCH ×2 (03:21→08:00)
[2016-08-07] MEDS: RESP: ALBUTEROL 2.5 MG/IPRATROPIUM 0.5 MG NEB (SCH) NEB ×4 (04:42→22:10)
[2016-08-07] MEDS: CHLORHEXIDINE GLUCONATE 2 % 1 PACK (2 CLOTHS) TOP SCH ×2 (04:59→05:00)
[2016-08-07 05:19] LABS: AUTOMATED NEUTROPHIL # 6.8 TH/MM3 (1.8-7.7); BASOPHIL # 0.1 TH/MM3 (0-0.2); BASOPHIL % 0.7 % (0.0-2.0); EOSINOPHIL # 0.4 TH/MM3 (0-0.4); EOSINOPHIL % 3.7 % (0.0-4.0); HEMATOCRIT 36.9 % (39.0-51.0); HEMO FLAGS DIFF FINAL; LYMPH % 16.9 % (9.0-44.0); LYMPHOCYTE # 1.6 TH/MM3 (1.0-4.8); MEAN CELL VOLUME 82.2 FL (80.0-100.0); MEAN CORPUSCULAR HEMOGLOBIN 26.3 PG (27.0-34.0); MONO % 6.7 % (0.0-8.0); PLATELET COUNT 356 TH/MM3 (150-450); RED BLOOD COUNT 4.49 MIL/MM3 (4.50-5.90); RED CELL DISTRIBUTION WIDTH 16.5 % (11.6-17.2); WHITE BLOOD COUNT 9.5 TH/MM3 (4.0-11.0)
[2016-08-07 05:21] LABS: POTASSIUM 4.3 MEQ/L (3.5-5.1)
[2016-08-07 05:24] LABS: BICARBONATE 23.6 MEQ/L (21.0-32.0); MAGNESIUM 2.6 MG/DL (1.5-2.5)
[2016-08-07] MEDS: INSULIN NovoLIN REGULAR SUPPLEMENTAL SCALE SQ SCH ×3 (06:00→17:39)
[2016-08-07] MEDS: HEPARIN SODIUM - SQ 10,000 UNITS/ML VIAL SQ SCH ×3 (06:08→21:59)
[2016-08-07] MEDS: ARTIFICIAL TEARS OPTH SOLN 15 ML BTL EACH EYE SCH ×3 (06:08→22:00)
--- NOTE | 2016-08-07 07:34 | RADHPO ---
EXAM DATE/TIME: 08/07/2016 07:11 [facility] COMPARISON: CHEST SINGLE AP, August 05, 2016, 7:26. INDICATIONS : Respiratory status. MEDICAL HISTORY : None. SURGICAL HISTORY : None. ENCOUNTER: Subsequent ACUITY: 2 weeks PAIN SCORE: Non-responsive. LOCATION: Left upper chest FINDINGS: Portable AP view of the chest demonstrates a normal-sized cardiac silhouette. Distal aspect of the tr acheostomy overlies the tracheal air shadow. Lungs are underinflated and there is interstitial promin ence bilaterally. There is subsegmental atelectasis in the left midlung zone. No pleural effusion or pneumothorax is identified. Bones demonstrate no acute finding. CONCLUSION: Mild interstitial social prominence bilaterally with subsegmental atelectasis in the left midlung zon e. There is improved aeration at the left lung base. Gary Tracy MD on August 07, 2016 at 7:31 Board Certified Radiologist. This report was verified electronically.
[2016-08-07] MEDS: CHLORHEXIDINE 0.12% (ORAL KIT) 15 ML CUP MT SCH ×2 (08:00→22:01)
[2016-08-07] MEDS: SULFAMETHOXAZOLE-TRIMETHOPRIM DS 800-160 MG TAB PEG SCH ×2 (08:27→21:59)
[2016-08-07] MEDS: MULTIVITAMIN TAB PO SCH (08:27)
[2016-08-07] MEDS: FAMOTIDINE 20 MG TAB NG SCH ×2 (08:27→22:00)
[2016-08-07] MEDS: MODAFINIL 200 MG TAB PO SCH (08:27)
[2016-08-07] MEDS: HYDROmorphone HCL PF 1 MG/ML VIAL IV PRN (08:28)
[2016-08-07] MEDS: SODIUM CHLORIDE 0.9% FLUSH 5 ML FLUSH IV FLUSH SCH ×2 (08:29→22:01)
--- NOTE | 2016-08-07 15:55 | HHI.CCPN ---
Subjective Remarks/Hospital Course 80 y/o NH patient with severe dehydration, UTI sepsis, respiratory failure admitted earlier. Nonverbal, minimally responsive. Cachectic, anasarca. 06/05 Patient is sedated with Diprivan and intubated. On Insulin drip. PEG tube was replaced by GI yesterday. 06/06: Remains sedated, orally intubated on mech ventilation. 06/07: Remains sedated, orally intubated on mechanical ventilation. Daily C Pap trials ongoing. 06/08: Sedated, arousable, orally intubated on mechanical ventilation. Failed C Pap trials with low tidal volumes and decreasing pressure support today. 06/09: Afebrile. Feeling CPAP trials again today due to low tidal volumes. Tolerating tube feeding and free water boluses. Positive BM. 06/10: Tmax 102. Currently 99.1. Currently a PSV trials. Extremely low tidal volumes however which requires extra pressure support. Eyes are open but does not follow commands. 06/11: no change. failed PSV trail for tachypnea. still altered, but this is baseline for him apparently. 06/12: no changes. slightly more awake, but not following commands, and still altered. discussed care with palliative who again talked with family, and they want aggressive measures. I think we will be forced to pursue tracheostomy, as I do not think it is safe to extubate this patient given mental status. 06/13: again failed SBT. RSBI 105 with persistent altered mental status. will pursue tracheostomy today. 06/14: trach yesterday. re-cultured yesterday per ID. will follow up cultures. need placement. 06/15: Tmax 99.8. Currently 99.7. Positive BM. Tolerating tube feeding. Opens eyes but does not follow commands. 06/16: MAXIMUM TEMPERATURE 100.7. Currently 98.8. Patient opens eyes but does not follow commands. 2 bowel movements yesterday. Tolerating tube feeding. 06/17: No change neurologically opens eyes- do not follow commands. Tolerating CPAP 04/24. No other acute events 06/18: Tolerated T piece up to 4 hours yesterday overnight was on Cipro 15 or 5. Intermittent episodes of nausea. KUB showed some gastric distention. I will consult GI. Patient came in with a Mckeon at the PEG site. This was reasonable placed and a standard PEG tube was placed by Dr. Henson on 06/04/1606/19: Tolerated T piece for several hours yesterday. Intermittent vomiting some abdominal distention. GI has started on Reglan for possible gastroparesis. Will check CT abd pelvis 06/20 Tolerating TP >[address] abdomen pelvis no obstruction, PEG tube in appropriate place. 07/21: reconsulted for new tachycardia, tachypnea, respiratory distress, fever. In Brief, 80yM with end-stage dementia and COPD who initially presented with altered mental status and sepsis. chronic and declining course without any improvements. family wants aggressive care despite poor overall prognosis. most recently, sputum grew out MRSA, but at the time clinically stable and ID enterprise resource planning consultant considered this colonization. today with acute worsening tachypnea, tachycardia, fever. patient at baseline neurologic status per Dr. Dolan with whom I have discussed his care. unable to obtain additional history from patient. 07/22: lactate clearing overnight. wbc downtrending. mental status remains poor, but this is baseline for patient. still on mechanical ventilation. cultures pending. ct chest/abd/pelvis without over evidence of infectious process. 07/23: Patient seen and examined today. No acute changes overnight. Patient still remains ventilator for respiratory support. Need to continue follow lactic acid level for lactic acidosis. Patient transferred to [place] for continued management facilitated by Dr. Morataya 07/24: Patient seen and examined today. No acute changes overnight. Patient still on mechanical ventilation for respiratory support. Patient clinically stabilizing at this time. Patient still with low-grade fevers. We'll start daily CPAP trials. 07/25 no issues overnight 07/27 no issues last night patient remained stable and unresponsive, opens eyes spontaneously no tracking no following commands 07/30 no issues overnight 07/31: tolerated CPAP until 9pm last night, placed back on a rate for tachypnea. vomiting improved. serum sodium slightly downtrended. 08/01: back on PRVC overnight. still tires out of CPAP. 08/02: Tolerated CPAP for 4 hours yesterday, No other issues overnight other than low grade fever. If tolerating CPAP > 12 hours attempt TP tomorrow 08/03: Tolerating C Pap 1005 since yesterday, now more than 24 hours. Attempt TP today for up to 8 hours. CXR mild pulmonary vascular congestion 08/04: On CPAP overnight. Will switch to T piece today. Afebrile. Tolerating tube feeds at 40 cc an hour. Positive BM. Neurologically unchanged. New blister on left heel. 08/05: On CPAP overnight. Tolerated 12 hours T piece overnight. Tmax 99 7. Tolerating tube feeding. Positive BM. Exchanged trach as maintain #6 Shijuan alberto DFEN with tube exchanger without complication. 08/06: On T-bar since tracheostomy exchange yesterday. Tmax 100. Tolerating tubing. Positive BM. Subjective 08/07: Patient seen and examined today. Patient remains on T piece. With mild tachypnea 2232. Patient tolerating trach downsizing well. Patient still without any purposeful movements. Does not follow commands. Objective Vital Signs Date Time Temp Pulse Resp B/P Pulse Ox O2 Delivery O2 Flow Rate FiO2 08/07/16 10:12 90 T-piece 21 08/07/16 08:30 98.5 89 26 172/74 08/07/16 08:00 7.00 Intake and Output 08/06/16 08/06/16 08/07/16 08:00 16:00 00:00 Intake Total 633 ml 816 ml 488 ml Balance 633 ml 816 ml 488 ml Result Diagram: 08/07/16 0437 08/07/16 0437 Imaging Last Impressions Chest X-Ray 08/05/16 0000 Signed Impressions: Service Date/Time: Friday, August 05, 2016 07:26 - CONCLUSION: 1. Tracheostomy satisfactory position. Basilar opacity not definitely changed from August 03. Mina Varghese MD Abdomen X-Ray 07/28/16 0500 Signed Impressions: Service Date/Time: Thursday, July 28, 2016 04:17 - CONCLUSION: No gaseous distended loops of small or large bowel. Henri Lane MD Chest CT 07/21/16 0000 Signed Impressions: Service Date/Time: Thursday, July 21, 2016 16:26 - CONCLUSION: 1. Minimal bibasilar parenchymal changes without consolidation. 2. There is no significant pleural effusion. Stanley Parker MD FACR Abdomen/Pelvis CT 07/21/16 0000 Signed Impressions: Service Date/Time: Thursday, July 21, 2016 16:26 - CONCLUSION: 1. I do not see a source of infection. 2. There is mild induration in the root of the mesentery. This is nonspecific. Stanley Parker MD FACR Objective Remarks GENERAL: 80 yo male patient, awake, does not follow commands, no purposeful movements HEAD: Normocephalic. EYES: PERRL. No scleral icterus. No scleral edema. NECK: Supple, trachea midline. No JVD. tracheostomy in place without erythema or bleeding. CARDIOVASCULAR: RRR. S1, S2. No S4. No murmur RESPIRATORY: Clear to dictation bilaterally no wheeze, rhonchi, Rales GASTROINTESTINAL: Abdomen soft, non-tender, nondistended. PEG tube is in place without any signs of infection. dignishield in place MUSCULOSKELETAL: contracted bilateral upper and lower extremity.. : No scrotal edema. Neuro: Opens eyes spontaneously. does not follow commands, withdraws x 3. Urinary Catheter: No Date of Insertion: Jul 05, 2016 Vascular Central Line Catheter: No A/P Problem List: (1) Severe sepsis with acute organ dysfunction ICD Code: A41.9 Status: Resolved (2) Acute respiratory failure ICD Code: J96.00 Status: Chronic (3) UTI (urinary tract infection) ICD Code: N39.0 Status: Resolved (4) Alzheimer's dementia ICD Code: F02.80 Status: Chronic (5) Fever ICD Code: R50.9 Status: Resolved (6) Global aphasia ICD Code: R47.02 Status: Chronic Assessment and Plan NEUROLOGY/PSYCH Alzheimer's dementia Hypoactive delirium Depression/anxiety -Acetaminophen for fever/Lortab per G-tube for pain control -Monitor neuro status. -Continue Provigil 400 mg daily in attempt increased alertness. Note has been on this since 06/25/16 with minimal improvement PULMONARY VDRF Healthcare associated pneumonia -Patient has been tolerating T piece since 08/03/16 -HOB at 30 degrees -s/p #8 Johana percutaneous trach 06/13. (Dr. Morataya/Dr. Dai). Downsized to a # 6 Johana DFEN 08/05 -Duonebs q6h and q2h prn. -Pulm toilet, trach care Pulm is following -Dr. Reyes CARDIOVASCULAR Hypertension -Monitor HR and BP keep MAP>65mmHg GASTROENTEROLOGY Failure to thrive Gastroesophageal reflux disease Severe acute protein calorie malnutrition- severe Hypo-albuminemia -TF to goal as tolerated with Glucerna 1.5 goal of 50 cc an hour -On Pepcid.for GI prophylaxis Adjust bowel regimen to Colace daily, continue MiraLAX as needed RENAL//FEN: BPH -Monitor renal function, electrolytes replacement per protocol. INFECTION DISEASE E. Cloacae UTI MRSA in sputum, colonized Klebsiella in sputum, colonized severe sepsis- resolving. Funguria with history of tropicalis and glabrata -Discontinued Zosyn/vancomycin and micafungin. Per ID note micafungin on 07/24 to continue for 3-5 days. -Currently afebrile normal white blood cell count. Monitor for signs of infections ( Fever, WBC) -Continue on Bactrim suppression treatment. Pertinent cultures 06/04 - urine - E. Cloacae 06/16 - sputum - Alla Tropicalis 06/27 blood - Staph Epi (1/2 bottles) 06/28 urine - alla glabrata 06/28 sputum - Klebsiella (intermediate to zosyn), MRSA 07/12 sputum - MRSA 07/18 sputum - MRSA, Klebsiella 07/21 sputum -MRSA, Klebsiella 07/21 blood -no growth for 2 days 07/21 urine -Alla glabrata HEMATOLOGY Normocytic anemia -Monitor CBC -Transfuse if hemoglobin below 7. ENDOCRINOLOGY: Hyperglycemia of critical illness -Accu-Cheks with sliding scale insulin with Accu-Cheks every 6 hours to maintain euglycemia PROPHYLAXIS -GI prophylaxis-Pepcid q12h. -DVT prevention: SCDs. SQH 5000 q8hr SKIN Left heel blister Sacral decubitus ulcer stage I -Continue Multi-Podus boots, wound care following -Continue wrist splints alternating sides daily LINES -PIVs Patient seen and examined discussed with ICU nursing staff. Agree with above assessment and plan. Will sign off and transfer care to [facility] level 1 Zac Cortez Aug 07, 2016 15:55 Janusz Cardenas MD Aug 07, 2016 16:41 Case management for discharge planning. Last documentation pertaining to discharge to [facility] in 07/13 indicates that patient needs to have 3 negative sputum cultures to discharge back to [facility]. Patient does have colonized sputum with Klebsiella, MRSA. Patient will unlikely ever have any negative cultures for discharge to local nursing facility. Patient will require other discharge planning to another facility. Zac Cortez Aug 07, 2016 15:55
[2016-08-07] MEDS ORDERED: ONDANSETRON HCL 4 MG/5 ML UDC PO PRN (16:00)
[2016-08-07] MEDS: ACETAMINOPHEN 325MG/HYDROcodone 7.5MG/15ML UDC PO PRN (17:40)
--- NOTE | 2016-08-07 20:12 | HHI.PR ---
Subjective Remarks 80 YO male with Dementia, RF,Trach Pt aphasic Tolerates TF tolerates Trach collar Opens eyes No new complaint Objective Vital Signs Vital Signs Date Time Temp Pulse Resp B/P Pulse Ox O2 Delivery O2 Flow Rate FiO2 08/07/16 16:16 98.8 118 26 120/57 94 08/07/16 16:15 96 T-Piece 28 08/07/16 16:15 108 08/07/16 12:45 84 08/07/16 12:30 96 T-Piece 28 08/07/16 12:04 98.3 112 24 142/77 99 08/07/16 10:12 90 T-piece 21 08/07/16 08:30 98.5 89 26 172/74 96 08/07/16 08:30 83 08/07/16 08:30 96 T-Piece 28 08/07/16 08:00 98 T-piece 7.00 28 08/07/16 04:04 84 08/07/16 04:04 98.6 84 32 117/67 95 08/07/16 04:00 T-Piece 28 08/07/16 00:00 T-Piece 28 08/07/16 00:00 98.2 102 22 131/67 99 08/07/16 00:00 102 08/06/16 22:38 100 T-piece 6.00 28 I/O 08/06/16 08/06/16 08/06/16 08/07/16 08/07/16 08/07/16 07:00 15:00 23:00 07:00 15:00 23:00 Intake Total 633 ml 816 ml 488 ml 573 ml 670 ml Output Total 100 ml Balance 633 ml 816 ml 488 ml 573 ml 570 ml Intake Oral 0 ml 0 ml 0 ml IV Total 100 ml 225 ml 102 ml Tube Feeding 333 ml 411 ml 286 ml 373 ml 420 ml Other 200 ml 180 ml 100 ml 200 ml 250 ml Stool Total 100 ml # Voids 4 4 5 2 2 # Bowel Movements 4 2 3 2 Result Diagram: 08/07/1643608/07/16436 Objective Remarks GENERAL: Elderly frail male, mild sob SKIN: Warm and dry. HEAD: Normocephalic. EYES: No scleral icterus. No injection or drainage. NECK: Supple, trachea midline. No JVD or lymphadenopathy. CARDIOVASCULAR: Regular rate and rhythm without murmurs, gallops, or rubs. RESPIRATORY: Breath sounds equal bilaterally. No accessory muscle use. GASTROINTESTINAL: Abdomen soft, non-tender, nondistended. MUSCULOSKELETAL: No cyanosis, or edema. BACK: Nontender without obvious deformity. No CVA tenderness. A/P Assessment and Plan RF,s/p Trach Aphasia Dysphagia Dementia PLAN: Aerosol nebs Tracheal suction Levsin qid Tube feeding 40 cc/hr cont trach collar CPAP prn only Silverio Reyes MD Aug 07, 2016 20:12
[2016-08-07] MEDS: POTASSIUM PHOSPHATE MONOBASIC 500 MG TAB PO PRN (21:59)
[2016-08-08] VITALS (11 sets, daily range): BP systolic 102–123; BP diastolic 56–75; PULSE 94–112; RESP 22–26; TEMP 98.3–98.7; O2SAT 91–99
[2016-08-08] MEDS: INSULIN NovoLIN REGULAR SUPPLEMENTAL SCALE SQ SCH ×5 (00:03→23:32)
[2016-08-08] MEDS: RESP: ALBUTEROL 2.5 MG/IPRATROPIUM 0.5 MG NEB (SCH) NEB ×4 (03:29→21:54)
[2016-08-08] MEDS: CHLORHEXIDINE GLUCONATE 2 % 1 PACK (2 CLOTHS) TOP SCH (04:00)
[2016-08-08] MEDS: HEPARIN SODIUM - SQ 10,000 UNITS/ML VIAL SQ SCH ×3 (05:13→22:13)
[2016-08-08] MEDS: ARTIFICIAL TEARS OPTH SOLN 15 ML BTL EACH EYE SCH ×3 (05:13→22:14)
[2016-08-08 05:18] LABS: AUTOMATED NEUTROPHIL # 7.3 TH/MM3 (1.8-7.7); BASOPHIL # 0.1 TH/MM3 (0-0.2); BASOPHIL % 0.6 % (0.0-2.0); EOSINOPHIL # 0.3 TH/MM3 (0-0.4); EOSINOPHIL % 2.8 % (0.0-4.0); HEMATOCRIT 39.5 % (39.0-51.0); HEMO FLAGS DIFF FINAL; LYMPH % 17.6 % (9.0-44.0); LYMPHOCYTE # 1.9 TH/MM3 (1.0-4.8); MEAN CELL VOLUME 82.4 FL (80.0-100.0); MEAN CORPUSCULAR HEMOGLOBIN 26.7 PG (27.0-34.0); MEAN CORPUSCULAR HGB CONC 32.4 % (32.0-36.0); MONO % 9.9 % (0.0-8.0); NEUT % 69.1 % (16.0-70.0); PLATELET COUNT 355 TH/MM3 (150-450); RED BLOOD COUNT 4.79 MIL/MM3 (4.50-5.90); RED CELL DISTRIBUTION WIDTH 16.7 % (11.6-17.2); WHITE BLOOD COUNT 10.7 TH/MM3 (4.0-11.0)
[2016-08-08 05:30] LABS: POTASSIUM 4.6 MEQ/L (3.5-5.1)
[2016-08-08 05:35] LABS: BICARBONATE 23.1 MEQ/L (21.0-32.0)
[2016-08-08 05:37] LABS: MAGNESIUM 2.6 MG/DL (1.5-2.5)
[2016-08-08] MEDS: CHLORHEXIDINE 0.12% (ORAL KIT) 15 ML CUP MT SCH ×2 (08:00→22:30)
[2016-08-08] MEDS: SODIUM CHLORIDE 0.9% FLUSH 5 ML FLUSH IV FLUSH SCH ×2 (08:43→22:31)
[2016-08-08] MEDS: ACETAMINOPHEN 325MG/HYDROcodone 7.5MG/15ML UDC PO PRN (08:45)
[2016-08-08] MEDS: MODAFINIL 200 MG TAB PO SCH (08:45)
[2016-08-08] MEDS: FAMOTIDINE 20 MG TAB NG SCH ×2 (08:46→22:13)
[2016-08-08] MEDS: POTASSIUM PHOSPHATE MONOBASIC 500 MG TAB PO PRN ×2 (08:46→17:13)
[2016-08-08] MEDS: MULTIVITAMIN TAB PO SCH (08:46)
[2016-08-08] MEDS: SULFAMETHOXAZOLE-TRIMETHOPRIM DS 800-160 MG TAB PEG SCH ×2 (08:46→22:13)
--- NOTE | 2016-08-08 12:32 | HHI.PR ---
Subjective Remarks Care transferred back to [facility] from critical care. Follow-up for respiratory failure, sepsis. Patient opens his eyes but is nonverbal. RN states patient has diarrhea which is chronic. C. difficile test is negative. Objective Vitals Vital Signs Date Time Temp Pulse Resp B/P Pulse Ox O2 Delivery O2 Flow Rate FiO2 08/08/16 08:17 96 T-piece 6.00 28 08/08/16 04:00 112 08/08/16 04:00 95 T-Piece 28 08/08/16 04:00 98.4 112 24 107/57 95 08/08/16 00:00 102 08/08/16 00:00 96 T-Piece 28 08/08/16 00:00 98.4 102 22 106/68 97 08/07/16 20:00 96 T-Piece 28 08/07/16 20:00 94 08/07/16 20:00 98.2 94 24 133/64 98 08/07/16 19:55 99 T-piece 6.00 28 08/07/16 16:16 98.8 118 26 120/57 94 08/07/16 16:15 96 T-Piece 28 08/07/16 16:15 108 08/07/16 12:45 84 I/O 08/07/16 08/07/16 08/07/16 08/08/16 08/08/16 08/08/16 07:00 15:00 23:00 07:00 15:00 23:00 Intake Total 573 ml 670 ml 500 ml 350 ml Output Total 100 ml 50 ml 300 ml Balance 573 ml 570 ml 450 ml 50 ml Intake Oral 0 ml 0 ml 0 ml Tube Feeding 373 ml 420 ml 400 ml 350 ml Other 200 ml 250 ml 100 ml Output Urine Total 300 ml Stool Total 100 ml 50 ml 0 ml # Voids 2 2 2 # Bowel Movements 2 Result Diagram: 08/08/16 0429 08/08/16 042 Imaging Last Impressions Chest X-Ray 08/07/16 0600 Signed Impressions: Service Date/Time: Sunday, August 07, 2016 07:11 - CONCLUSION: Mild interstitial social prominence bilaterally with subsegmental atelectasis in the left midlung zone. There is improved aeration at the left lung base. Gary Tracy MD Abdomen X-Ray 07/28/16 0500 Signed Impressions: Service Date/Time: Thursday, July 28, 2016 04:17 - CONCLUSION: No gaseous distended loops of small or large bowel. Henri Lane MD Chest CT 07/21/16 0000 Signed Impressions: Service Date/Time: Thursday, July 21, 2016 16:26 - CONCLUSION: 1. Minimal bibasilar parenchymal changes without consolidation. 2. There is no significant pleural effusion. Stanley Parker MD FACR Abdomen/Pelvis CT 07/21/16 0000 Signed Impressions: Service Date/Time: Thursday, July 21, 2016 16:26 - CONCLUSION: 1. I do not see a source of infection. 2. There is mild induration in the root of the mesentery. This is nonspecific. Stanley Parker MD FACR Objective Remarks GENERAL: Well-nourished, well-developed patient in no apparent distress. SKIN: Warm and dry. HEAD: Atraumatic. Normocephalic. CARDIOVASCULAR: Tachycardic rate and regular rhythm. RESPIRATORY: No accessory muscle use. Bronchial sounds. Diminished bibasilar breath sounds. GASTROINTESTINAL: Abdomen soft, non-tender, nondistended. NEUROLOGICAL: Opens his eyes but does not track. Does not respond. Urinary Catheter: No Date of Insertion: Jul 05, 2016 Vascular Central Line Catheter: No A/P Problem List: (1) UTI (urinary tract infection) ICD Code: N39.0 Status: Resolved (2) Alzheimer's dementia ICD Code: F02.80 Status: Chronic (3) Malnourished ICD Code: E46 Status: Acute (4) Acute respiratory failure with hypoxia and hypercarbia ICD Code: J96.01 Status: Acute (5) Hypertension ICD Code: I10 Status: Chronic (6) GERD (gastroesophageal reflux disease) ICD Code: K21.9 Status: Chronic (7) Diarrhea ICD Code: R19.7 Status: Acute (8) Fever ICD Code: R50.9 Status: Resolved Assessment and Plan 80-year-old male with: Severe sepsis: Resolving. Currently afebrile with normal white blood cell count. -Enterobacter Cloacae UTI -MRSA in sputum, colonized -Klebsiella in sputum, colonized -Funguria with history of tropicalis and glabrata -Discontinued Zosyn/vancomycin and micafungin. -Continue on Bactrim suppression treatment. -Pertinent cultures: 06/04 - urine - E. Cloacae 06/16 - sputum - Alla Tropicalis 06/27 blood - Staph Epi (1/2 bottles) 06/28 urine - alla glabrata 06/28 sputum - Klebsiella (intermediate to zosyn), MRSA 07/12 sputum - MRSA 07/18 sputum - MRSA, Klebsiella 07/21 sputum -MRSA, Klebsiella 07/21 blood -no growth for 2 days 07/21 urine -Alla glabrata VDRF/Healthcare associated pneumonia: -Patient has been tolerating T piece -HOB at 30 degrees -Pulmonology following: Aerosol nebs, Tracheal suction, Levsin qid, CPAP prn only Alzheimer's dementia/delirium: Depression/anxiety -Acetaminophen/Lortab per G-tube for pain control -Monitor neuro status. -Continue Provigil 400 mg daily in attempt increased alertness. Note has been on this since 06/25/16 with no notable improvement. HTN: -Monitor HR and BP keep MAP>65mmHg Failure to thrive/Gastroesophageal reflux disease/Severe acute protein calorie malnutrition/Hypo-albuminemia: -TF to goal as tolerated with Glucerna 1.5 goal of 50 cc an hour -Continue Pepcid -Colace, Miralax BPH: -Monitor renal function, electrolytes replacement per protocol. Normocytic anemia: -Monitor CBC -Transfuse if hemoglobin below 7. Hyperglycemia of critical illness: -Accu-Cheks with sliding scale insulin with Accu-Cheks every 6 hours to maintain euglycemia Left heel blister and Sacral decubitus ulcer stage I: -Continue Multi-Podus boots, wound care following -Continue wrist splints alternating sides daily -I spoke with wound care today (08/08) who states patient has a healing stage 3 ulcer to his left heel and states a non-adhesive foam dressing has been applied. Recommends to change transparent dressing to R heel as needed; cleanse wound to posterior L heel with normal saline and apply optifoam non adhesive dressing over wound and secure with rolled gauze and tape. GI prophylaxis: Pepcid q12h. DVT prevention: SCDs. heparin sq 5000 q8hr Written by Senait Gerard PA-C acting as scribe for Dr. Hwang on 08/08/16 at 1217. Senait Gerard Aug 08, 2016 12:32 Pavel Hwang MD Aug 09, 2016 11:38 Pavel Hwang MD Aug 09, 2016 11:38
--- NOTE | 2016-08-08 19:28 | HHI.PR ---
Subjective Remarks 80 YO male with Dementia, RF,Trach Pt aphasic Tolerates TF tolerates Trach collar Opens eyes No new complaint no fever Objective Vital Signs Vital Signs Date Time Temp Pulse Resp B/P Pulse Ox O2 Delivery O2 Flow Rate FiO2 08/08/16 16:45 99 08/08/16 16:45 99 T-Piece 28 08/08/16 16:04 98.3 94 24 102/68 94 08/08/16 15:55 91 T-piece 8.00 21 08/08/16 12:30 98.7 99 25 103/56 98 08/08/16 12:30 100 08/08/16 12:30 99 T-Piece 28 08/08/16 08:17 96 T-piece 6.00 28 08/08/16 08:04 98.5 98 26 123/75 96 08/08/16 08:00 110 08/08/16 08:00 95 T-Piece 28 08/08/16 04:00 112 08/08/16 04:00 95 T-Piece 28 08/08/16 04:00 98.4 112 24 107/57 95 08/08/16 00:00 102 08/08/16 00:00 96 T-Piece 28 08/08/16 00:00 98.4 102 22 106/68 97 08/07/16 20:00 96 T-Piece 28 08/07/16 20:00 94 08/07/16 20:00 98.2 94 24 133/64 98 08/07/16 19:55 99 T-piece 6.00 28 I/O 08/07/16 08/07/16 08/07/16 08/08/16 08/08/16 08/08/16 07:00 15:00 23:00 07:00 15:00 23:00 Intake Total 573 ml 670 ml 500 ml 350 ml 545 ml Output Total 100 ml 50 ml 300 ml 350 ml Balance 573 ml 570 ml 450 ml 50 ml 195 ml Intake Oral 0 ml 0 ml 0 ml 0 ml Tube Feeding 373 ml 420 ml 400 ml 350 ml 445 ml Other 200 ml 250 ml 100 ml 100 ml Output Urine Total 300 ml 250 ml Stool Total 100 ml 50 ml 0 ml 100 ml # Voids 2 2 2 # Bowel Movements 2 Result Diagram: 08/08/169 08/08/16428 Objective Remarks GENERAL: Elderly frail male, mild sob SKIN: Warm and dry. HEAD: Normocephalic. EYES: No scleral icterus. No injection or drainage. NECK: Supple, trachea midline. No JVD or lymphadenopathy. CARDIOVASCULAR: Regular rate and rhythm without murmurs, gallops, or rubs. RESPIRATORY: Breath sounds equal bilaterally. No accessory muscle use. GASTROINTESTINAL: Abdomen soft, non-tender, nondistended. MUSCULOSKELETAL: No cyanosis, or edema. BACK: Nontender without obvious deformity. No CVA tenderness. A/P Assessment and Plan RF,s/p Trach Aphasia Dysphagia Dementia PLAN: Aerosol nebs Tracheal suction Levsin qid Tube feeding 40 cc/hr cont trach collar CPAP prn only bactrim bId Silverio Reyes MD Aug 08, 2016 19:28
[2016-08-09] VITALS (12 sets, daily range): BP systolic 108–150; BP diastolic 62–81; PULSE 96–124; RESP 22–27; TEMP 98.6–99.2; O2SAT 95–98
[2016-08-09] MEDS: RESP: ALBUTEROL 2.5 MG/IPRATROPIUM 0.5 MG NEB (SCH) NEB ×4 (03:34→21:20)
[2016-08-09] MEDS: CHLORHEXIDINE GLUCONATE 2 % 1 PACK (2 CLOTHS) TOP SCH (04:00)
[2016-08-09] MEDS: HEPARIN SODIUM - SQ 10,000 UNITS/ML VIAL SQ SCH ×2 (05:48→15:26)
[2016-08-09] MEDS: ARTIFICIAL TEARS OPTH SOLN 15 ML BTL EACH EYE SCH ×2 (05:48→15:30)
[2016-08-09] MEDS: INSULIN NovoLIN REGULAR SUPPLEMENTAL SCALE SQ SCH ×3 (05:48→19:06)
[2016-08-09] MEDS: MODAFINIL 200 MG TAB PO SCH (09:00)
[2016-08-09] MEDS: SULFAMETHOXAZOLE-TRIMETHOPRIM DS 800-160 MG TAB PEG SCH ×2 (09:00→21:10)
[2016-08-09] MEDS: SODIUM CHLORIDE 0.9% FLUSH 5 ML FLUSH IV FLUSH SCH ×2 (09:00→21:10)
[2016-08-09] MEDS: MULTIVITAMIN TAB PO SCH (09:00)
[2016-08-09] MEDS: FAMOTIDINE 20 MG TAB NG SCH ×2 (09:00→21:10)
[2016-08-09] MEDS: CHLORHEXIDINE 0.12% (ORAL KIT) 15 ML CUP MT SCH ×2 (11:50→21:10)
[2016-08-09] MEDS: ACETAMINOPHEN 325MG/HYDROcodone 7.5MG/15ML UDC PO PRN (11:52)
--- NOTE | 2016-08-09 17:51 | HHI.PR ---
Subjective Remarks Follow up for respiratory failure, sepsis. RN denies any acute issues with the patient. Still has sputum production which is the same. Tolerating T-piece. Objective Vitals Vital Signs Date Time Temp Pulse Resp B/P Pulse Ox O2 Delivery O2 Flow Rate FiO2 08/09/16 12:59 99.0 106 22 114/68 95 08/09/16 12:15 122 08/09/16 12:15 97 T-Piece 28 08/09/16 12:04 124 26 150/72 98 08/09/16 09:35 95 T-piece 28 08/09/16 08:45 108 08/09/16 08:45 98 T-Piece 28 08/09/16 08:04 98.6 106 22 145/81 97 08/09/16 04:00 108 08/09/16 04:00 99.0 108 24 148/81 95 08/09/16 04:00 98 T-Piece 28 08/09/16 00:04 99.2 102 26 123/75 95 08/09/16 00:00 104 08/09/16 00:00 96 T-Piece 28 08/08/16 20:00 99 T-Piece 28 08/08/16 20:00 98.3 111 24 118/66 99 08/08/16 20:00 111 08/08/16 19:51 97 T-piece 6.00 28 I/O 08/08/16 08/08/16 08/08/16 08/09/16 08/09/16 08/09/16 07:00 15:00 23:00 07:00 15:00 23:00 Intake Total 350 ml 545 ml 500 ml 400 ml 530 ml Output Total 300 ml 350 ml 400 ml 275 ml 175 ml Balance 50 ml 195 ml 100 ml 125 ml 355 ml Intake Oral 0 ml 0 ml 0 ml Tube Feeding 350 ml 445 ml 400 ml 400 ml 380 ml Other 100 ml 100 ml 150 ml Output Urine Total 300 ml 250 ml 400 ml 275 ml 175 ml Stool Total 0 ml 100 ml # Bowel Movements 1 2 1 Result Diagram: 08/08/1642808/08/16428 Objective Remarks GENERAL: Elderly patient in no apparent distress. SKIN: Warm and dry. CARDIOVASCULAR: Regular rhythm. RESPIRATORY: No accessory muscle use. Trach collar. CTAB. GASTROINTESTINAL: Abdomen soft, non-tender, nondistended. NEUROLOGICAL: Opens his eyes but does not track. Does not speak. Urinary Catheter: No Date of Insertion: Jul 05, 2016 Vascular Central Line Catheter: No A/P Problem List: (1) UTI (urinary tract infection) ICD Code: N39.0 Status: Resolved (2) Alzheimer's dementia ICD Code: F02.80 Status: Chronic (3) Malnourished ICD Code: E46 Status: Acute (4) Acute respiratory failure with hypoxia and hypercarbia ICD Code: J96.01 Status: Acute (5) Hypertension ICD Code: I10 Status: Chronic (6) GERD (gastroesophageal reflux disease) ICD Code: K21.9 Status: Chronic (7) Diarrhea ICD Code: R19.7 Status: Acute (8) Fever ICD Code: R50.9 Status: Resolved Assessment and Plan 80-year-old male with: Severe sepsis: Resolving. Currently afebrile with normal white blood cell count. -Enterobacter Cloacae UTI -MRSA in sputum, colonized -Klebsiella in sputum, colonized -Funguria with history of tropicalis and glabrata -Discontinued Zosyn/vancomycin and micafungin. -Continue on Bactrim suppression treatment. -Pertinent cultures: 06/04 - urine - E. Cloacae 06/16 - sputum - Prachi Tropicalis 06/27 blood - Staph Epi (1/2 bottles) 06/28 urine - prachi glabrata 06/28 sputum - Klebsiella (intermediate to zosyn), MRSA 07/12 sputum - MRSA 07/18 sputum - MRSA, Klebsiella 07/21 sputum -MRSA, Klebsiella 07/21 blood -no growth for 2 days 07/21 urine -Prachi glabrata VDRF/Healthcare associated pneumonia: -Patient has been tolerating T piece -HOB at 30 degrees -Pulmonology following: Aerosol nebs, Tracheal suction, Levsin qid, CPAP prn only, continue T-piece with O2 prn, continue Bactrim bid Alzheimer's dementia/delirium: Depression/anxiety -Acetaminophen/Lortab per G-tube for pain control -Monitor neuro status. -Continue Provigil 400 mg daily in attempt increased alertness. Note has been on this since 06/25/16 with no notable improvement. HTN: -Monitor HR and BP keep MAP>65mmHg Failure to thrive/Gastroesophageal reflux disease/Severe acute protein calorie malnutrition/Hypo-albuminemia: -TF to goal as tolerated with Glucerna 1.5 goal of 50 cc an hour -Continue Pepcid -Colace, Miralax BPH: -Monitor renal function, electrolytes replacement per protocol. Normocytic anemia: -Monitor CBC -Transfuse if hemoglobin below 7. Hyperglycemia of critical illness: -Accu-Cheks with sliding scale insulin with Accu-Cheks every 6 hours to maintain euglycemia Left heel blister and Sacral decubitus ulcer stage I: -Continue Multi-Podus boots, wound care following -Continue wrist splints alternating sides daily -I spoke with wound care on 08/08 who states patient has a healing stage 3 ulcer to his left heel and states a non-adhesive foam dressing has been applied. Recommends to change transparent dressing to R heel as needed; cleanse wound to posterior L heel with normal saline and apply optifoam non adhesive dressing over wound and secure with rolled gauze and tape. GI prophylaxis: Pepcid q12h. DVT prevention: SCDs. heparin sq 5000 q8hr Attending Statement Patient seen with the nurse Agree with above Senait Gerard Aug 09, 2016 17:51 Pavel Hwang MD Aug 09, 2016 19:53
--- NOTE | 2016-08-09 19:08 | HHI.PR ---
Subjective Remarks 80 YO male with Dementia, RF,Trach Pt aphasic Tolerates TF tolerates Trach collar Opens eyes No new complaint Provigil helps him stay awake Objective Vital Signs Vital Signs Date Time Temp Pulse Resp B/P Pulse Ox O2 Delivery O2 Flow Rate FiO2 08/09/16 12:59 99.0 106 22 114/68 95 08/09/16 12:15 122 08/09/16 12:15 97 T-Piece 28 08/09/16 12:04 124 26 150/72 98 08/09/16 09:35 95 T-piece 28 08/09/16 08:45 108 08/09/16 08:45 98 T-Piece 28 08/09/16 08:04 98.6 106 22 145/81 97 08/09/16 04:00 108 08/09/16 04:00 99.0 108 24 148/81 95 08/09/16 04:00 98 T-Piece 28 08/09/16 00:04 99.2 102 26 123/75 95 08/09/16 00:00 104 08/09/16 00:00 96 T-Piece 28 08/08/16 20:00 99 T-Piece 28 08/08/16 20:00 98.3 111 24 118/66 99 08/08/16 20:00 111 08/08/16 19:51 97 T-piece 6.00 28 I/O 08/08/16 08/08/16 08/08/16 08/09/16 08/09/16 08/09/16 07:00 15:00 23:00 07:00 15:00 23:00 Intake Total 350 ml 545 ml 500 ml 400 ml 530 ml Output Total 300 ml 350 ml 400 ml 275 ml 175 ml Balance 50 ml 195 ml 100 ml 125 ml 355 ml Intake Oral 0 ml 0 ml 0 ml Tube Feeding 350 ml 445 ml 400 ml 400 ml 380 ml Other 100 ml 100 ml 150 ml Output Urine Total 300 ml 250 ml 400 ml 275 ml 175 ml Stool Total 0 ml 100 ml # Bowel Movements 1 2 1 Result Diagram: 08/08/1642808/08/16428 Objective Remarks GENERAL: Elderly frail male, mild sob SKIN: Warm and dry. HEAD: Normocephalic. EYES: No scleral icterus. No injection or drainage. NECK: Supple, trachea midline. No JVD or lymphadenopathy. CARDIOVASCULAR: Regular rate and rhythm without murmurs, gallops, or rubs. RESPIRATORY: Breath sounds equal bilaterally. No accessory muscle use. GASTROINTESTINAL: Abdomen soft, non-tender, nondistended. MUSCULOSKELETAL: No cyanosis, or edema. BACK: Nontender without obvious deformity. No CVA tenderness. A/P Assessment and Plan RF,s/p Trach Aphasia Dysphagia Dementia PLAN: Aerosol nebs Tracheal suction Levsin qid Tube feeding 40 cc/hr cont trach collar CPAP prn only Bactrim bId Silverio Reyes MD Aug 09, 2016 19:08
[2016-08-10] VITALS (10 sets, daily range): BP systolic 112–147; BP diastolic 53–86; PULSE 77–125; RESP 16–30; TEMP 87.6–98.9; O2SAT 95–100
[2016-08-10] MEDS: ARTIFICIAL TEARS OPTH SOLN 15 ML BTL EACH EYE SCH ×4 (00:01→21:09)
[2016-08-10] MEDS: HEPARIN SODIUM - SQ 10,000 UNITS/ML VIAL SQ SCH ×4 (00:01→21:56)
[2016-08-10] MEDS: RESP: ALBUTEROL 2.5 MG/IPRATROPIUM 0.5 MG NEB (SCH) NEB ×3 (03:37→15:36)
[2016-08-10] MEDS: CHLORHEXIDINE GLUCONATE 2 % 1 PACK (2 CLOTHS) TOP SCH (04:00)
[2016-08-10] MEDS: INSULIN NovoLIN REGULAR SUPPLEMENTAL SCALE SQ SCH ×4 (05:53→18:00)
[2016-08-10] MEDS: CHLORHEXIDINE 0.12% (ORAL KIT) 15 ML CUP MT SCH ×2 (08:00→21:09)
[2016-08-10] MEDS: MULTIVITAMIN TAB PO SCH (09:00)
[2016-08-10] MEDS: SULFAMETHOXAZOLE-TRIMETHOPRIM DS 800-160 MG TAB PEG SCH ×2 (09:00→21:09)
[2016-08-10] MEDS: SODIUM CHLORIDE 0.9% FLUSH 5 ML FLUSH IV FLUSH SCH ×2 (09:00→21:10)
[2016-08-10] MEDS: MODAFINIL 200 MG TAB PO SCH (09:00)
[2016-08-10] MEDS: FAMOTIDINE 20 MG TAB NG SCH ×2 (09:00→21:09)
--- NOTE | 2016-08-10 09:03 | HHI.PR ---
Subjective Remarks Follow-up for respiratory failure. Patient currently on T-Piece. No acute issues per RN. Objective Vitals Vital Signs Date Time Temp Pulse Resp B/P Pulse Ox O2 Delivery O2 Flow Rate FiO2 08/10/16 08:00 96 T-Piece 28 08/10/16 08:00 95 T-piece 28 08/10/16 04:00 98.8 125 20 116/68 100 08/10/16 04:00 100 T-Piece 28 08/10/16 04:00 125 08/10/16 00:00 98.6 77 24 112/63 96 08/10/16 00:00 77 08/10/16 00:00 96 T-Piece 28 08/09/16 21:20 96 T-piece 28 08/09/16 20:00 110 08/09/16 20:00 96 T-Piece 28 08/09/16 20:00 99.0 110 27 108/62 96 08/09/16 16:00 96 22 113/63 95 08/09/16 16:00 96 08/09/16 16:00 97 T-Piece 28 08/09/16 12:59 99.0 106 22 114/68 95 08/09/16 12:15 122 08/09/16 12:15 97 T-Piece 28 08/09/16 12:04 124 26 150/72 98 08/09/16 09:35 95 T-piece 28 I/O 08/09/16 08/09/16 08/09/16 08/10/16 08/10/16 08/10/16 07:00 15:00 23:00 07:00 15:00 23:00 Intake Total 400 ml 530 ml 559 ml 521 ml Output Total 275 ml 175 ml Balance 125 ml 355 ml 559 ml 521 ml Intake Oral 0 ml Tube Feeding 400 ml 380 ml 359 ml 321 ml Other 150 ml 200 ml 200 ml Output Urine Total 275 ml 175 ml # Voids 1 4 # Bowel Movements 2 1 0 3 Result Diagram: 08/08/1642808/08/16428 Objective Remarks GENERAL: Elderly patient in no apparent distress. SKIN: Warm and dry. CARDIOVASCULAR: Mildly tachycardic rate with regular rhythm. RESPIRATORY: Trach collar. Coarse breath sounds. MUSCULOSKELETAL: Foam boot on R heel. NEUROLOGICAL: Opens his eyes but does not track. Does not speak. Urinary Catheter: No Date of Insertion: Jul 05, 2016 Vascular Central Line Catheter: No A/P Problem List: (1) UTI (urinary tract infection) ICD Code: N39.0 Status: Resolved (2) Alzheimer's dementia ICD Code: F02.80 Status: Chronic (3) Malnourished ICD Code: E46 Status: Acute (4) Acute respiratory failure with hypoxia and hypercarbia ICD Code: J96.01 Status: Acute (5) Hypertension ICD Code: I10 Status: Chronic (6) GERD (gastroesophageal reflux disease) ICD Code: K21.9 Status: Chronic (7) Diarrhea ICD Code: R19.7 Status: Acute (8) Fever ICD Code: R50.9 Status: Resolved Assessment and Plan 80-year-old male with: Severe sepsis: Resolving. Currently afebrile with normal white blood cell count. -Enterobacter Cloacae UTI -MRSA in sputum, colonized -Klebsiella in sputum, colonized -Funguria with history of tropicalis and glabrata -Discontinued Zosyn/vancomycin and micafungin. -Continue on Bactrim suppression treatment. -Pertinent cultures: 06/04 - urine - E. Cloacae 06/16 - sputum - Prachi Tropicalis 06/27 blood - Staph Epi (1/2 bottles) 06/28 urine - prachi glabrata 06/28 sputum - Klebsiella (intermediate to zosyn), MRSA 07/12 sputum - MRSA 07/18 sputum - MRSA, Klebsiella 07/21 sputum -MRSA, Klebsiella 07/21 blood -no growth for 2 days 07/21 urine -Prachi glabrata VDRF/Healthcare associated pneumonia: -Patient has been tolerating T piece -HOB at 30 degrees -Pulmonology following: Aerosol nebs, Tracheal suction, Levsin qid, CPAP prn only, continue trach collar, continue Bactrim bid Alzheimer's dementia/delirium: Depression/anxiety -Acetaminophen/Lortab per G-tube for pain control -Monitor neuro status. -Continue Provigil 400 mg daily in attempt increased alertness. Note has been on this since 06/25/16 with no notable improvement. HTN: -Monitor HR and BP keep MAP > 65mmHg Failure to thrive/Gastroesophageal reflux disease/Severe acute protein calorie malnutrition/Hypo-albuminemia: -TF to goal as tolerated with Glucerna 1.5 goal of 50 cc an hour -Continue Pepcid -Colace, Miralax BPH: -Monitor renal function, electrolytes replacement per protocol. Normocytic anemia: -Monitor CBC -Transfuse if hemoglobin below 7. Hyperglycemia of critical illness: -Accu-Cheks with sliding scale insulin with Accu-Cheks every 6 hours to maintain euglycemia Left heel blister and Sacral decubitus ulcer stage I: -Continue Multi-Podus boots, wound care following -Continue wrist splints alternating sides daily -I spoke with wound care on 08/08 who states patient has a healing stage 3 ulcer to his left heel and states a non-adhesive foam dressing has been applied. Recommends to change transparent dressing to R heel as needed; cleanse wound to posterior L heel with normal saline and apply Optifoam non adhesive dressing over wound and secure with rolled gauze and tape. GI prophylaxis: Pepcid q12h. DVT prevention: SCDs. heparin sq 5000 q8hr Written by Senait Gerard PA-C acting as scribe for Dr. Dolan on 08/10/16 at 0851. All or portions of this note were transcribed by scribe Senait Gerard PA-C. I , Dr. Zac Dolan personally performed the history, physical exam, and medical decision making; and confirmed the accuracy of the information in the transcribed note. Authenticated by Dr. Zac Dolan on 08/10/16 at 13:20. Senait Gerard Aug 10, 2016 09:03 Zac Dolan MD Aug 10, 2016 13:21
--- NOTE | 2016-08-10 19:04 | HHI.PR ---
Subjective Remarks 80 YO male with Dementia, RF,Trach Pt aphasic Tolerates TF tolerates Trach collar Opens eyes No new complaint Objective Vital Signs Vital Signs Date Time Temp Pulse Resp B/P Pulse Ox O2 Delivery O2 Flow Rate FiO2 08/10/16 16:00 98.7 106 28 112/71 95 08/10/16 16:00 98 T-Piece 28 08/10/16 16:00 106 08/10/16 14:00 100 30 127/69 95 08/10/16 14:00 100 08/10/16 12:00 110 08/10/16 12:00 98.9 110 24 139/86 97 08/10/16 12:00 96 T-Piece 08/10/16 10:00 108 08/10/16 10:00 108 30 125/53 98 08/10/16 08:00 96 T-Piece 08/10/16 08:00 100 08/10/16 08:00 100 25 117/76 98 08/10/16 08:00 95 T-piece 08/10/16 07:55 98.9 100 147/78 95 08/10/16 07:55 100 08/10/16 04:00 98.8 125 20 116/68 100 08/10/16 04:00 100 T-Piece 28 08/10/16 04:00 125 08/10/16 00:00 98.6 77 24 112/63 96 08/10/16 00:00 77 08/10/16 00:00 96 T-Piece 08/09/16 21:20 96 T-piece 08/09/16 20:00 110 08/09/16 20:00 96 T-Piece 08/09/16 20:00 99.0 110 27 108/62 96 I/O 08/09/16 08/09/16 08/09/16 08/10/16 08/10/16 08/10/16 07:00 15:00 23:00 07:00 15:00 23:00 Intake Total 400 ml 530 ml 559 ml 521 ml 448 ml Output Total 275 ml 175 ml Balance 125 ml 355 ml 559 ml 521 ml 448 ml Intake Oral 0 ml Tube Feeding 400 ml 380 ml 359 ml 321 ml 248 ml Other 150 ml 200 ml 200 ml 200 ml Output Urine Total 275 ml 175 ml # Voids 1 4 3 # Bowel Movements 2 1 0 3 2 Result Diagram: 08/08/16 0429 08/08/16 0429 Objective Remarks GENERAL: Elderly frail male, mild sob SKIN: Warm and dry. HEAD: Normocephalic. EYES: No scleral icterus. No injection or drainage. NECK: Supple, trachea midline. No JVD or lymphadenopathy. CARDIOVASCULAR: Regular rate and rhythm without murmurs, gallops, or rubs. RESPIRATORY: Breath sounds equal bilaterally. No accessory muscle use. GASTROINTESTINAL: Abdomen soft, non-tender, nondistended. MUSCULOSKELETAL: No cyanosis, or edema. BACK: Nontender without obvious deformity. No CVA tenderness. A/P Assessment and Plan RF,s/p Trach Aphasia Dysphagia Dementia PLAN: Aerosol nebs Tracheal suction Tube feeding 40 cc/hr cont trach collar CPAP prn only Bactrim bId Silverio Reyes MD Aug 10, 2016 19:04
[2016-08-11] VITALS (22 sets, daily range): BP systolic 105–160; BP diastolic 49–87; PULSE 88–116; RESP 24–36; TEMP 98–99.1; O2SAT 95–100
[2016-08-11] MEDS: RESP: ALBUTEROL 2.5 MG/IPRATROPIUM 0.5 MG NEB (SCH) NEB ×3 (03:53→15:36)
[2016-08-11] MEDS: CHLORHEXIDINE GLUCONATE 2 % 1 PACK (2 CLOTHS) TOP SCH (04:00)
[2016-08-11] MEDS: INSULIN NovoLIN REGULAR SUPPLEMENTAL SCALE SQ SCH ×3 (06:41→17:39)
[2016-08-11] MEDS: ARTIFICIAL TEARS OPTH SOLN 15 ML BTL EACH EYE SCH ×3 (06:41→21:21)
[2016-08-11] MEDS: HEPARIN SODIUM - SQ 10,000 UNITS/ML VIAL SQ SCH ×3 (06:44→21:20)
[2016-08-11] MEDS: CHLORHEXIDINE 0.12% (ORAL KIT) 15 ML CUP MT SCH ×2 (08:00→20:00)
[2016-08-11] MEDS: SODIUM CHLORIDE 0.9% FLUSH 5 ML FLUSH IV FLUSH SCH ×2 (09:00→21:00)
[2016-08-11] MEDS: MULTIVITAMIN TAB PO SCH (09:00)
[2016-08-11] MEDS: FAMOTIDINE 20 MG TAB NG SCH ×2 (09:00→21:20)
[2016-08-11] MEDS: SULFAMETHOXAZOLE-TRIMETHOPRIM DS 800-160 MG TAB PEG SCH ×2 (09:00→21:20)
[2016-08-11] MEDS: MODAFINIL 200 MG TAB PO SCH (09:00)
--- NOTE | 2016-08-11 09:27 | HHI.PR ---
Subjective Remarks Follow-up for respiratory failure. No acute issues. Objective Vitals Vital Signs Date Time Temp Pulse Resp B/P Pulse Ox O2 Delivery O2 Flow Rate FiO2 08/11/16 08:00 96 29 133/80 97 08/11/16 08:00 96 08/11/16 08:00 97 T-Piece 08/11/16 07:34 96 08/11/16 07:34 96 T-Piece 08/11/16 07:34 99.1 96 30 112/67 96 08/11/16 07:00 98 T-Piece 08/11/16 07:00 102 08/11/16 04:00 99 T-Piece 28 08/11/16 04:00 110 08/11/16 04:00 98.9 110 24 112/60 99 08/11/16 00:00 97 T-Piece 28 08/11/16 00:00 98.0 109 28 149/72 98 08/11/16 00:00 109 08/10/16 20:00 110 08/10/16 20:00 87.6 110 16 123/60 100 08/10/16 20:00 100 T-Piece 58 08/10/16 19:30 98 T-piece 6.00 28 08/10/16 16:00 98.7 106 28 112/71 95 08/10/16 16:00 98 T-Piece 28 08/10/16 16:00 106 08/10/16 14:00 100 30 127/69 95 08/10/16 14:00 100 08/10/16 12:00 110 08/10/16 12:00 98.9 110 24 139/86 97 08/10/16 12:00 96 T-Piece 28 08/10/16 10:00 108 08/10/16 10:00 108 30 125/53 98 I/O 08/10/16 08/10/16 08/10/16 08/11/16 08/11/16 08/11/16 07:00 15:00 23:00 07:00 15:00 23:00 Intake Total 521 ml 448 ml 556 ml 459 ml Balance 521 ml 448 ml 556 ml 459 ml Tube Feeding 321 ml 248 ml 356 ml 259 ml Other 200 ml 200 ml 200 ml 200 ml # Voids 4 3 1 5 # Bowel Movements 3 2 0 4 Result Diagram: 08/08/16 04208/08/16 0429 Objective Remarks GENERAL: Elderly patient in no apparent distress. CARDIOVASCULAR: Mildly tachycardic rate with regular rhythm. RESPIRATORY: Trach collar. Coarse breath sounds. NEUROLOGICAL: Does not speak. Urinary Catheter: No Date of Insertion: Jul 05, 2016 Vascular Central Line Catheter: No A/P Problem List: (1) UTI (urinary tract infection) ICD Code: N39.0 Status: Resolved (2) Alzheimer's dementia ICD Code: F02.80 Status: Chronic (3) Malnourished ICD Code: E46 Status: Acute (4) Acute respiratory failure with hypoxia and hypercarbia ICD Code: J96.01 Status: Acute (5) Hypertension ICD Code: I10 Status: Chronic (6) GERD (gastroesophageal reflux disease) ICD Code: K21.9 Status: Chronic (7) Diarrhea ICD Code: R19.7 Status: Acute (8) Fever ICD Code: R50.9 Status: Resolved Assessment and Plan 80-year-old male with: Severe sepsis: Resolving. Currently afebrile with normal white blood cell count. -Enterobacter Cloacae UTI -MRSA in sputum, colonized -Klebsiella in sputum, colonized -Funguria with history of tropicalis and glabrata -Discontinued Zosyn/vancomycin and micafungin. -Continue on Bactrim suppression treatment. -Pertinent cultures: 06/04 - urine - E. Cloacae 06/16 - sputum - Prachi Tropicalis 06/27 blood - Staph Epi (1/2 bottles) 06/28 urine - prachi glabrata 06/28 sputum - Klebsiella (intermediate to zosyn), MRSA 07/12 sputum - MRSA 07/18 sputum - MRSA, Klebsiella 07/21 sputum -MRSA, Klebsiella 07/21 blood -no growth for 2 days 07/21 urine -Prachi glabrata VDRF/Healthcare associated pneumonia: -Patient has been tolerating T piece -HOB at 30 degrees -Pulmonology following: Aerosol nebs, Tracheal suction, Levsin qid, CPAP prn only, continue trach collar, continue Bactrim bid Alzheimer's dementia/delirium: Depression/anxiety -Acetaminophen/Lortab per G-tube for pain control -Monitor neuro status. -Continue Provigil 400 mg daily in attempt increased alertness. Note has been on this since 06/25/16 with no notable improvement. HTN: -Monitor HR and BP keep MAP > 65mmHg Failure to thrive/Gastroesophageal reflux disease/Severe acute protein calorie malnutrition/Hypo-albuminemia: -TF to goal as tolerated with Glucerna 1.5 goal of 50 cc an hour -Continue Pepcid -Colace, Miralax BPH: -Monitor renal function, electrolytes replacement per protocol. Normocytic anemia: -Monitor CBC -Transfuse if hemoglobin below 7. Hyperglycemia of critical illness: -Accu-Cheks with sliding scale insulin with Accu-Cheks every 6 hours to maintain euglycemia Left heel blister and Sacral decubitus ulcer stage I: -Continue Multi-Podus boots, wound care following -Continue wrist splints alternating sides daily -I spoke with wound care on 08/08 who states patient has a healing stage 3 ulcer to his left heel and states a non-adhesive foam dressing has been applied. Recommends to change transparent dressing to R heel as needed; cleanse wound to posterior L heel with normal saline and apply Optifoam non adhesive dressing over wound and secure with rolled gauze and tape. GI prophylaxis: Pepcid q12h. DVT prevention: SCDs. heparin sq 5000 q8hr Written by Senait Gerard PA-C acting as scribe for Dr. Dolan on 08/11/16 at 0918. All or portions of this note were transcribed by scribe Senait Gerard PA-C. I , Dr. Zac Dolan personally performed the history, physical exam, and medical decision making; and confirmed the accuracy of the information in the transcribed note. Authenticated by Dr. Zac Dolan on 08/11/16 at 19:08. Senait Gerard Aug 11, 2016 09:27 Zac Dolan MD Aug 11, 2016 19:08
--- NOTE | 2016-08-11 16:22 | HHI.PR ---
Subjective Remarks 80 YO male with Dementia, RF,Trach Pt aphasic Tolerates TF tolerates Trach collar Opens eyes No new complaint Objective Vital Signs Vital Signs Date Time Temp Pulse Resp B/P Pulse Ox O2 Delivery O2 Flow Rate FiO2 08/11/16 12:00 110 30 111/49 96 08/11/16 12:00 110 08/11/16 12:00 97 T-Piece 08/11/16 11:00 114 34 108/56 95 08/11/16 11:00 114 08/11/16 10:00 112 32 109/52 96 08/11/16 10:00 112 08/11/16 09:49 100 T-piece 28 08/11/16 09:00 104 08/11/16 09:00 104 31 110/59 95 08/11/16 08:00 96 29 133/80 97 08/11/16 08:00 96 08/11/16 08:00 97 T-Piece 08/11/16 07:34 96 08/11/16 07:34 96 T-Piece 08/11/16 07:34 99.1 96 30 112/67 96 08/11/16 07:00 98 T-Piece 08/11/16 07:00 102 08/11/16 04:00 99 T-Piece 28 08/11/16 04:00 110 08/11/16 04:00 98.9 110 24 112/60 99 08/11/16 00:00 97 T-Piece 28 08/11/16 00:00 98.0 109 28 149/72 98 08/11/16 00:00 109 08/10/16 20:00 110 08/10/16 20:00 87.6 110 16 123/60 100 08/10/16 20:00 100 T-Piece 58 08/10/16 19:30 98 T-piece 6.00 28 I/O 08/10/16 08/10/16 08/10/16 08/11/16 08/11/16 08/11/16 07:00 15:00 23:00 07:00 15:00 23:00 Intake Total 521 ml 448 ml 556 ml 459 ml Balance 521 ml 448 ml 556 ml 459 ml Tube Feeding 321 ml 248 ml 356 ml 259 ml Other 200 ml 200 ml 200 ml 200 ml # Voids 4 3 1 5 # Bowel Movements 3 2 0 4 Result Diagram: 08/08/1642808/08/16428 Objective Remarks GENERAL: Elderly frail male, mild sob SKIN: Warm and dry. HEAD: Normocephalic. EYES: No scleral icterus. No injection or drainage. NECK: Supple, trachea midline. No JVD or lymphadenopathy. CARDIOVASCULAR: Regular rate and rhythm without murmurs, gallops, or rubs. RESPIRATORY: Breath sounds equal bilaterally. No accessory muscle use. GASTROINTESTINAL: Abdomen soft, non-tender, nondistended. MUSCULOSKELETAL: No cyanosis, or edema. BACK: Nontender without obvious deformity. No CVA tenderness. A/P Assessment and Plan RF,s/p Trach Aphasia Dysphagia Dementia PLAN: Aerosol nebs Tracheal suction Tube feeding 40 cc/hr cont trach collar CPAP prn only Bactrim bId Stable on trach collar Available prn over weekend. Silverio Reyes MD Aug 11, 2016 16:21
[2016-08-11] MEDS: ACETAMINOPHEN 325MG/HYDROcodone 7.5MG/15ML UDC PO PRN (21:21)
[2016-08-12] VITALS (21 sets, daily range): BP systolic 102–139; BP diastolic 50–82; PULSE 80–108; RESP 19–30; TEMP 98.1–98.9; O2SAT 95–99
[2016-08-12] MEDS: CHLORHEXIDINE GLUCONATE 2 % 1 PACK (2 CLOTHS) TOP SCH (00:42)
[2016-08-12] MEDS: HEPARIN SODIUM - SQ 10,000 UNITS/ML VIAL SQ SCH ×3 (05:54→20:54)
[2016-08-12] MEDS: INSULIN NovoLIN REGULAR SUPPLEMENTAL SCALE SQ SCH ×5 (05:54→23:59)
[2016-08-12] MEDS: ARTIFICIAL TEARS OPTH SOLN 15 ML BTL EACH EYE SCH ×3 (05:54→20:54)
[2016-08-12] MEDS: FAMOTIDINE 20 MG TAB NG SCH ×2 (08:30→20:53)
[2016-08-12] MEDS: SODIUM CHLORIDE 0.9% FLUSH 5 ML FLUSH IV FLUSH SCH ×2 (08:30→20:53)
[2016-08-12] MEDS: MODAFINIL 200 MG TAB PO SCH (08:30)
[2016-08-12] MEDS: SULFAMETHOXAZOLE-TRIMETHOPRIM DS 800-160 MG TAB PEG SCH ×2 (08:30→20:53)
[2016-08-12] MEDS: CHLORHEXIDINE 0.12% (ORAL KIT) 15 ML CUP MT SCH ×2 (08:30→19:51)
[2016-08-12] MEDS: MULTIVITAMIN TAB PO SCH (08:30)
--- NOTE | 2016-08-12 08:43 | HHI.PR ---
Subjective Remarks Follow-up for respiratory failure. Patient currently on T-piece. No acute issues. Objective Vitals Vital Signs Date Time Temp Pulse Resp B/P Pulse Ox O2 Delivery O2 Flow Rate FiO2 08/12/16 07:57 98 T-piece 28 08/12/16 06:00 88 24 139/72 98 08/12/16 05:00 96 23 129/73 96 08/12/16 04:00 98.3 98 22 102/50 96 08/12/16 04:00 92 22 102/50 95 08/12/16 04:00 T-Piece 28 08/12/16 04:00 98 08/12/16 03:00 90 22 112/58 96 08/12/16 02:00 82 19 129/71 98 08/12/16 01:00 80 21 115/70 97 08/12/16 00:00 98.9 83 22 128/70 97 08/12/16 00:00 86 23 128/70 98 08/12/16 00:00 86 08/12/16 00:00 T-Piece 28 08/11/16 23:00 88 24 114/66 97 08/11/16 22:00 94 28 115/69 98 08/11/16 21:00 98 27 130/87 97 08/11/16 20:11 96 T-piece 6.00 28 08/11/16 20:00 110 36 131/66 97 08/11/16 20:00 98.8 99 24 131/66 96 08/11/16 20:00 T-Piece 28 08/11/16 20:00 109 08/11/16 19:00 106 33 136/63 98 08/11/16 17:00 104 08/11/16 17:00 104 28 142/80 100 08/11/16 16:00 99.0 104 32 134/70 99 08/11/16 16:00 104 08/11/16 16:00 98 T-Piece 08/11/16 15:02 112 24 143/73 100 08/11/16 15:02 112 08/11/16 15:00 116 08/11/16 15:00 116 29 160/73 100 08/11/16 14:00 114 08/11/16 14:00 114 32 126/66 97 08/11/16 13:00 98.9 112 33 105/62 96 08/11/16 13:00 112 08/11/16 12:00 110 30 111/49 96 08/11/16 12:00 110 08/11/16 12:00 97 T-Piece 08/11/16 11:00 114 34 108/56 95 08/11/16 11:00 114 08/11/16 10:00 112 32 109/52 96 08/11/16 10:00 112 08/11/16 09:49 100 T-piece 28 08/11/16 09:00 104 08/11/16 09:00 104 31 110/59 95 I/O 08/11/16 08/11/16 08/11/16 08/12/16 08/12/16 08/12/16 07:00 15:00 23:00 07:00 15:00 23:00 Intake Total 459 ml 814 ml 595 ml 587 ml Balance 459 ml 814 ml 595 ml 587 ml Intake Oral 0 ml IV Total 0 ml 0 ml Tube Feeding 259 ml 614 ml 395 ml 387 ml Other 200 ml 200 ml 200 ml 200 ml # Voids 5 3 2 2 # Bowel Movements 4 2 2 1 Result Diagram: 08/08/1642808/08/16428 Objective Remarks GENERAL: Elderly patient in no apparent distress. CARDIOVASCULAR: Mildly tachycardic rate with regular rhythm. RESPIRATORY: Trach collar. Coarse breath sounds. NEUROLOGICAL: Eyes open, unresponsive. Urinary Catheter: No Date of Insertion: Jul 05, 2016 Vascular Central Line Catheter: No A/P Problem List: (1) UTI (urinary tract infection) ICD Code: N39.0 Status: Resolved (2) Alzheimer's dementia ICD Code: F02.80 Status: Chronic (3) Malnourished ICD Code: E46 Status: Acute (4) Acute respiratory failure with hypoxia and hypercarbia ICD Code: J96.01 Status: Acute (5) Hypertension ICD Code: I10 Status: Chronic (6) GERD (gastroesophageal reflux disease) ICD Code: K21.9 Status: Chronic (7) Diarrhea ICD Code: R19.7 Status: Acute (8) Fever ICD Code: R50.9 Status: Resolved Assessment and Plan 80-year-old male with: Severe sepsis: Resolving. Currently afebrile with normal white blood cell count. -Enterobacter Cloacae UTI -MRSA in sputum, colonized -Klebsiella in sputum, colonized -Funguria with history of tropicalis and glabrata -Discontinued Zosyn/vancomycin and micafungin. -Continue on Bactrim suppression treatment. -Pertinent cultures: 06/04 - urine - E. Cloacae 06/16 - sputum - Prachi Tropicalis 06/27 blood - Staph Epi (1/2 bottles) 06/28 urine - prachi glabrata 06/28 sputum - Klebsiella (intermediate to zosyn), MRSA 07/12 sputum - MRSA 07/18 sputum - MRSA, Klebsiella 07/21 sputum -MRSA, Klebsiella 07/21 blood -no growth for 2 days 07/21 urine -Prachi glabrata VDRF/Healthcare associated pneumonia: -Patient has been tolerating T piece -HOB at 30 degrees -Pulmonology following: Aerosol nebs, Tracheal suction, Levsin qid, CPAP prn only, continue trach collar, continue Bactrim bid Alzheimer's dementia/delirium: Depression/anxiety -Acetaminophen/Lortab per G-tube for pain control -Monitor neuro status. -Continue Provigil 400 mg daily in attempt increased alertness. Note has been on this since 06/25/16 with no notable improvement. HTN: -Monitor HR and BP keep MAP > 65mmHg Failure to thrive/Gastroesophageal reflux disease/Severe acute protein calorie malnutrition/Hypo-albuminemia: -TF to goal as tolerated with Glucerna 1.5 goal of 50 cc an hour -Continue Pepcid -Colace, Miralax BPH: -Monitor renal function, electrolytes replacement per protocol. Normocytic anemia: -Monitor CBC -Transfuse if hemoglobin below 7. Hyperglycemia of critical illness: -Accu-Cheks with sliding scale insulin with Accu-Cheks every 6 hours to maintain euglycemia Left heel blister and Sacral decubitus ulcer stage I: -Continue Multi-Podus boots, wound care following -Continue wrist splints alternating sides daily -I spoke with wound care on 08/08 who states patient has a healing stage 3 ulcer to his left heel and states a non-adhesive foam dressing has been applied. Recommends to change transparent dressing to R heel as needed; cleanse wound to posterior L heel with normal saline and apply Optifoam non adhesive dressing over wound and secure with rolled gauze and tape. GI prophylaxis: Pepcid q12h. DVT prevention: SCDs. heparin sq 5000 q8hr Written by Senait Gerard PA-C acting as scribe for Dr. Dolan on 08/12/16 at 0832. All or portions of this note were transcribed by scribe Senait Gerard PA-C. I , Dr. Zac Dolan personally performed the history, physical exam, and medical decision making; and confirmed the accuracy of the information in the transcribed note. Authenticated by Dr. Zac Dolan on 08/12/16 at 10:13. Senait Gerard Aug 12, 2016 08:43 Zac Dolan MD Aug 12, 2016 10:13
[2016-08-12] MEDS: ACETAMINOPHEN 325MG/HYDROcodone 7.5MG/15ML UDC PO PRN (10:27)
[2016-08-13] VITALS (8 sets, daily range): BP systolic 100–137; BP diastolic 56–78; PULSE 88–106; RESP 22–30; TEMP 98–99; O2SAT 96–100
[2016-08-13] MEDS: HEPARIN SODIUM - SQ 10,000 UNITS/ML VIAL SQ SCH ×3 (05:13→21:04)
[2016-08-13] MEDS: INSULIN NovoLIN REGULAR SUPPLEMENTAL SCALE SQ SCH ×2 (05:14→12:00)
[2016-08-13] MEDS: ARTIFICIAL TEARS OPTH SOLN 15 ML BTL EACH EYE SCH ×3 (05:14→21:03)
[2016-08-13] MEDS: CHLORHEXIDINE GLUCONATE 2 % 1 PACK (2 CLOTHS) TOP SCH (05:15)
[2016-08-13] MEDS: MODAFINIL 200 MG TAB PO SCH (08:53)
[2016-08-13] MEDS: ACETAMINOPHEN 325MG/HYDROcodone 7.5MG/15ML UDC PO PRN (08:53)
[2016-08-13] MEDS: MULTIVITAMIN TAB PO SCH (08:54)
[2016-08-13] MEDS: FAMOTIDINE 20 MG TAB NG SCH ×2 (08:54→21:02)
[2016-08-13] MEDS: SULFAMETHOXAZOLE-TRIMETHOPRIM DS 800-160 MG TAB PEG SCH ×2 (08:54→21:02)
[2016-08-13] MEDS: SODIUM CHLORIDE 0.9% FLUSH 5 ML FLUSH IV FLUSH SCH ×2 (08:55→21:02)
[2016-08-13] MEDS: CHLORHEXIDINE 0.12% (ORAL KIT) 15 ML CUP MT SCH ×2 (08:56→21:02)
--- NOTE | 2016-08-13 09:08 | HHI.PR ---
Subjective Remarks Follow up for respiratory failure. No acute issues. Objective Vitals Vital Signs Date Time Temp Pulse Resp B/P Pulse Ox O2 Delivery O2 Flow Rate FiO2 08/13/16 08:14 99 T-piece 7.00 28 08/13/16 04:00 100 T-Piece 28 08/13/16 04:00 98 08/13/16 04:00 98.0 98 22 111/62 100 08/13/16 00:00 96 08/13/16 00:00 98 T-Piece 28 08/13/16 00:00 98.5 96 29 100/56 98 08/12/16 22:01 94 26 130/82 97 08/12/16 21:01 96 25 120/75 96 08/12/16 20:01 98.3 108 30 139/77 98 08/12/16 20:00 100 08/12/16 20:00 96 T-Piece 28 08/12/16 19:30 98 T-piece 6.00 28 08/12/16 16:00 98.1 100 23 126/76 96 08/12/16 16:00 100 08/12/16 16:00 99 T-Piece 08/12/16 13:00 104 26 119/59 97 08/12/16 13:00 104 08/12/16 12:00 104 08/12/16 12:00 98.8 104 21 119/66 98 08/12/16 12:00 99 T-Piece 08/12/16 11:00 102 08/12/16 11:00 102 23 108/59 98 08/12/16 10:00 96 22 114/65 99 08/12/16 10:00 96 I/O 08/12/16 08/12/16 08/12/16 08/13/16 08/13/16 08/13/16 07:00 15:00 23:00 07:00 15:00 23:00 Intake Total 587 ml 440 ml 406 ml Output Total 3 ml Balance 587 ml 437 ml 406 ml Intake Oral 0 ml IV Total 0 ml Tube Feeding 387 ml 240 ml 206 ml Other 200 ml 200 ml 200 ml Output Urine Total 3 ml # Voids 2 3 3 # Bowel Movements 1 5 3 Objective Remarks GENERAL: Elderly patient in no apparent distress. CARDIOVASCULAR: Mildly tachycardic rate with regular rhythm. RESPIRATORY: Trach collar. Coarse breath sounds. NEUROLOGICAL: Awake. Eyes open. Does not speak. Urinary Catheter: No Date of Insertion: Jul 05, 2016 Vascular Central Line Catheter: No A/P Problem List: (1) UTI (urinary tract infection) ICD Code: N39.0 Status: Resolved (2) Alzheimer's dementia ICD Code: F02.80 Status: Chronic (3) Malnourished ICD Code: E46 Status: Acute (4) Acute respiratory failure with hypoxia and hypercarbia ICD Code: J96.01 Status: Acute (5) Hypertension ICD Code: I10 Status: Chronic (6) GERD (gastroesophageal reflux disease) ICD Code: K21.9 Status: Chronic (7) Diarrhea ICD Code: R19.7 Status: Acute (8) Fever ICD Code: R50.9 Status: Resolved Assessment and Plan 80-year-old male with: Severe sepsis: Resolving. Currently afebrile with normal white blood cell count. -Enterobacter Cloacae UTI -MRSA in sputum, colonized -Klebsiella in sputum, colonized -Funguria with history of tropicalis and glabrata -Discontinued Zosyn/vancomycin and micafungin. -Continue on Bactrim suppression treatment. -Pertinent cultures: 06/04 - urine - E. Cloacae 06/16 - sputum - Prachi Tropicalis 06/27 blood - Staph Epi (1/2 bottles) 06/28 urine - prachi glabrata 06/28 sputum - Klebsiella (intermediate to zosyn), MRSA 07/12 sputum - MRSA 07/18 sputum - MRSA, Klebsiella 07/21 sputum -MRSA, Klebsiella 07/21 blood -no growth for 2 days 07/21 urine -Prachi glabrata VDRF/Healthcare associated pneumonia: -Patient has been tolerating T piece -HOB at 30 degrees -Pulmonology following: Aerosol nebs, Tracheal suction, Levsin qid, CPAP prn only, continue trach collar, continue Bactrim bid Alzheimer's dementia/delirium: Depression/anxiety -Acetaminophen/Lortab per G-tube for pain control -Monitor neuro status. -Continue Provigil 400 mg daily in attempt increased alertness. Note has been on this since 06/25/16 with no notable improvement. HTN: -Monitor HR and BP keep MAP > 65mmHg Failure to thrive/Gastroesophageal reflux disease/Severe acute protein calorie malnutrition/Hypo-albuminemia: -TF to goal as tolerated with Glucerna 1.5 goal of 50 cc an hour -Continue Pepcid -Colace, Miralax BPH: -Monitor renal function, electrolytes replacement per protocol. Normocytic anemia: -Monitor CBC -Transfuse if hemoglobin below 7. Hyperglycemia of critical illness: -Accu-Cheks with sliding scale insulin with Accu-Cheks every 6 hours to maintain euglycemia Left heel blister and Sacral decubitus ulcer stage I: -Continue Multi-Podus boots, wound care following -Continue wrist splints alternating sides daily -I spoke with wound care on 08/08 who states patient has a healing stage 3 ulcer to his left heel and states a non-adhesive foam dressing has been applied. Recommends to change transparent dressing to R heel as needed; cleanse wound to posterior L heel with normal saline and apply Optifoam non adhesive dressing over wound and secure with rolled gauze and tape. GI prophylaxis: Pepcid q12h. DVT prevention: SCDs. heparin sq 5000 q[address] Reyes to see if he has cleared patient to return to SNF tomorrow but have not heard back. Will contact him tomorrow. Written by Senait Gerard PA-C acting as scribe for Dr. Dolan on 08/13/16 at 0900. All or portions of this note were transcribed by scribe Senait Gerard PA-C. I , Dr. Zac Dolan personally performed the history, physical exam, and medical decision making; and confirmed the accuracy of the information in the transcribed note. Authenticated by Dr. Zac Dolan on 08/14/16 at 07:22. Senait Gerard Aug 13, 2016 09:08 Zac Dolan MD Aug 14, 2016 07:23
[2016-08-14] VITALS (13 sets, daily range): BP systolic 102–148; BP diastolic 49–69; PULSE 2–113; RESP 20–29; TEMP 98.3–98.7; O2SAT 95–98
[2016-08-14] MEDS: CHLORHEXIDINE GLUCONATE 2 % 1 PACK (2 CLOTHS) TOP SCH (04:00)
[2016-08-14] MEDS: RESP: ALBUTEROL 2.5 MG/IPRATROPIUM 0.5 MG NEB (PRN) INH (04:14)
[2016-08-14] MEDS: HEPARIN SODIUM - SQ 10,000 UNITS/ML VIAL SQ SCH ×3 (05:38→21:00)
[2016-08-14] MEDS: ARTIFICIAL TEARS OPTH SOLN 15 ML BTL EACH EYE SCH ×3 (05:39→21:00)
[2016-08-14] MEDS: INSULIN NovoLIN REGULAR SUPPLEMENTAL SCALE SQ SCH ×5 (05:42→23:23)
[2016-08-14] MEDS: SODIUM CHLORIDE 0.9% FLUSH 5 ML FLUSH IV FLUSH SCH ×2 (09:00→21:00)
--- NOTE | 2016-08-14 09:17 | HHI.PR ---
Subjective Remarks Follow-up for respiratory failure. Patient on T-piece. Objective Vitals Vital Signs Date Time Temp Pulse Resp B/P Pulse Ox O2 Delivery O2 Flow Rate FiO2 08/14/16 08:10 97 T-piece 6.00 28 08/14/16 04:00 95 T-Piece 28 08/14/16 04:00 2 08/14/16 04:00 98.5 113 25 141/63 97 08/14/16 00:00 88 08/14/16 00:00 98.5 88 20 148/69 98 08/14/16 00:00 98 T-Piece 28 08/13/16 20:00 96 08/13/16 20:00 98.4 95 30 119/75 96 08/13/16 20:00 98 T-Piece 28 08/13/16 19:45 98 T-piece 6.00 28 08/13/16 16:00 96 T-Piece 28 08/13/16 16:00 106 08/13/16 16:00 99.0 106 23 126/65 96 08/13/16 12:00 98.6 92 23 127/78 100 08/13/16 12:00 88 08/13/16 12:00 96 T-Piece 28 I/O 08/13/16 08/13/16 08/13/16 08/14/16 08/14/16 08/14/16 07:00 15:00 23:00 07:00 15:00 23:00 Intake Total 406 ml 473 ml 547 ml 466 ml Balance 406 ml 473 ml 547 ml 466 ml Tube Feeding 206 ml 273 ml 347 ml 266 ml Other 200 ml 200 ml 200 ml 200 ml # Voids 3 2 1 4 # Bowel Movements 3 2 0 3 Objective Remarks GENERAL: Elderly patient in no apparent distress. CARDIOVASCULAR: Tachycardic at 104. RESPIRATORY: Trach collar. Coarse breath sounds. NEUROLOGICAL: Does not open his eyes. Urinary Catheter: No Date of Insertion: Jul 05, 2016 Vascular Central Line Catheter: No A/P Problem List: (1) UTI (urinary tract infection) ICD Code: N39.0 Status: Resolved (2) Alzheimer's dementia ICD Code: F02.80 Status: Chronic (3) Malnourished ICD Code: E46 Status: Acute (4) Acute respiratory failure with hypoxia and hypercarbia ICD Code: J96.01 Status: Acute (5) Hypertension ICD Code: I10 Status: Chronic (6) GERD (gastroesophageal reflux disease) ICD Code: K21.9 Status: Chronic (7) Diarrhea ICD Code: R19.7 Status: Acute (8) Fever ICD Code: R50.9 Status: Resolved Assessment and Plan 80-year-old male with: Severe sepsis: Resolving. Currently afebrile with normal white blood cell count. -Enterobacter Cloacae UTI -MRSA in sputum, colonized -Klebsiella in sputum, colonized -Funguria with history of tropicalis and glabrata -Discontinued Zosyn/vancomycin and micafungin. -Continue on Bactrim suppression treatment. -Pertinent cultures: 06/04 - urine - E. Cloacae 06/16 - sputum - Prachi Tropicalis 06/27 blood - Staph Epi (1/2 bottles) 06/28 urine - prachi glabrata 06/28 sputum - Klebsiella (intermediate to zosyn), MRSA 07/12 sputum - MRSA 07/18 sputum - MRSA, Klebsiella 07/21 sputum -MRSA, Klebsiella 07/21 blood -no growth for 2 days 07/21 urine -Prachi glabrata VDRF/Healthcare associated pneumonia: -Patient has been tolerating T piece -HOB at 30 degrees -Pulmonology following: Aerosol nebs, Tracheal suction, Levsin qid, CPAP prn only, continue trach collar, continue Bactrim bid -RN states patient had increased oral secretions. Levsin was discontinued on 07/22. Will restart at 0.125 mg q6h prn. Alzheimer's dementia/delirium: Depression/anxiety -Acetaminophen/Lortab per G-tube for pain control -Monitor neuro status. -Continue Provigil 400 mg daily in attempt increased alertness. Has been on this since 06/25/16 with no notable improvement. HTN: -Monitor HR and BP keep MAP > 65mmHg Failure to thrive/Gastroesophageal reflux disease/Severe acute protein calorie malnutrition/Hypo-albuminemia: -TF to goal as tolerated with Glucerna 1.5 goal of 50 cc an hour -Continue Pepcid -Colace, Miralax BPH: -Monitor renal function, electrolytes replacement per protocol. Normocytic anemia: -Hemoglobin improved to 12.8. -Transfuse if hemoglobin below 7. -Monitor CBC Hyperglycemia of critical illness: -Accu-Cheks with sliding scale insulin with Accu-Cheks every 6 hours to maintain euglycemia Left heel blister and Sacral decubitus ulcer stage I: -Continue Multi-Podus boots, wound care following -Continue wrist splints alternating sides daily -I spoke with wound care on 08/08 who states patient has a healing stage 3 ulcer to his left heel and states a non-adhesive foam dressing has been applied. Recommends to change transparent dressing to R heel as needed; cleanse wound to posterior L heel with normal saline and apply Optifoam non adhesive dressing over wound and secure with rolled gauze and tape. GI prophylaxis: Pepcid q12h. DVT prevention: SCDs. heparin sq 5000 q8hr Written by Senait Gerard PA-C acting as scribe for Dr. Dolan on 08/14/16 at 0903. All or portions of this note were transcribed by scribe Senait Gerard PA-C. I , Dr. Zac Dolan personally performed the history, physical exam, and medical decision making; and confirmed the accuracy of the information in the transcribed note. Authenticated by Dr. Zac Doaln on 08/15/16 at 07:42. Discharge Planning 1844: Spoke with Dr. Reyes. He has cleared patient; can discharge to SNF tomorrow. Senait Gerard Aug 14, 2016 09:17 Zac Dolan MD Aug 15, 2016 07:42
[2016-08-14] MEDS: SULFAMETHOXAZOLE-TRIMETHOPRIM DS 800-160 MG TAB PEG SCH ×2 (09:32→21:00)
[2016-08-14] MEDS: FAMOTIDINE 20 MG TAB NG SCH ×2 (09:32→21:00)
[2016-08-14] MEDS: MODAFINIL 200 MG TAB PO SCH (09:32)
[2016-08-14] MEDS: MULTIVITAMIN TAB PO SCH (09:32)
[2016-08-14] MEDS: CHLORHEXIDINE 0.12% (ORAL KIT) 15 ML CUP MT SCH ×2 (09:32→21:01)
[2016-08-14] MEDS ORDERED: HYOSCYAMINE 0.125 MG TAB PEG PRN (11:00)
--- NOTE | 2016-08-14 19:16 | HHI.PR ---
Subjective Remarks 80 YO male with Dementia, RF,Trach Pt aphasic Tolerates TF tolerates Trach collar Opens eyes Objective Vital Signs Vital Signs Date Time Temp Pulse Resp B/P Pulse Ox O2 Delivery O2 Flow Rate FiO2 08/14/16 17:00 88 08/14/16 16:00 95 T-Piece 22 08/14/16 16:00 98.7 88 22 124/65 96 08/14/16 16:00 94 08/14/16 14:00 94 08/14/16 13:00 92 08/14/16 12:00 98.5 94 22 104/55 96 08/14/16 12:00 88 08/14/16 12:00 94 T-Piece 26 08/14/16 09:01 98.3 104 29 108/49 96 08/14/16 09:00 95 T-Piece 26 08/14/16 08:10 97 T-piece 6.00 28 08/14/16 08:00 102 08/14/16 07:00 100 08/14/16 04:00 95 T-Piece 28 08/14/16 04:00 2 08/14/16 04:00 98.5 113 25 141/63 97 08/14/16 00:00 88 08/14/16 00:00 98.5 88 20 148/69 98 08/14/16 00:00 98 T-Piece 28 08/13/16 20:00 96 08/13/16 20:00 98.4 95 30 119/75 96 08/13/16 20:00 98 T-Piece 08/13/16 19:45 98 T-piece 6.00 28 I/O 08/13/16 08/13/16 08/13/16 08/14/16 08/14/16 08/14/16 07:00 15:00 23:00 07:00 15:00 23:00 Intake Total 406 ml 473 ml 547 ml 466 ml 682 ml Balance 406 ml 473 ml 547 ml 466 ml 682 ml Tube Feeding 206 ml 273 ml 347 ml 266 ml 482 ml Other 200 ml 200 ml 200 ml 200 ml 200 ml # Voids 3 2 1 4 3 # Bowel Movements 3 2 0 3 1 Objective Remarks GENERAL: Elderly frail male, mild sob SKIN: Warm and dry. HEAD: Normocephalic. EYES: No scleral icterus. No injection or drainage. NECK: Supple, trachea midline. No JVD or lymphadenopathy. CARDIOVASCULAR: Regular rate and rhythm without murmurs, gallops, or rubs. RESPIRATORY: Breath sounds equal bilaterally. No accessory muscle use. GASTROINTESTINAL: Abdomen soft, non-tender, nondistended. MUSCULOSKELETAL: No cyanosis, or edema. BACK: Nontender without obvious deformity. No CVA tenderness. A/P Assessment and Plan RF,s/p Trach Aphasia Dysphagia Dementia PLAN: Aerosol nebs Tracheal suction Tube feeding 40 cc/hr cont trach collar CPAP prn only Stable on trach collar DC Plans for SNF, stable from pulm standpoint Silverio Reyes MD Aug 14, 2016 19:16
[2016-08-15] VITALS (8 sets, daily range): BP systolic 88–141; BP diastolic 52–82; PULSE 87–104; RESP 16–28; TEMP 97.6–98.9; O2SAT 97–99
[2016-08-15] MEDS: CHLORHEXIDINE GLUCONATE 2 % 1 PACK (2 CLOTHS) TOP SCH (02:22)
[2016-08-15] MEDS: INSULIN NovoLIN REGULAR SUPPLEMENTAL SCALE SQ SCH ×2 (06:02→12:47)
[2016-08-15] MEDS: ARTIFICIAL TEARS OPTH SOLN 15 ML BTL EACH EYE SCH ×2 (06:03→12:48)
[2016-08-15] MEDS: HEPARIN SODIUM - SQ 10,000 UNITS/ML VIAL SQ SCH ×2 (06:03→12:48)
[2016-08-15] MEDS: CHLORHEXIDINE 0.12% (ORAL KIT) 15 ML CUP MT SCH (08:00)
[2016-08-15] MEDS: MULTIVITAMIN TAB PO SCH (09:44)
[2016-08-15] MEDS: SODIUM CHLORIDE 0.9% FLUSH 5 ML FLUSH IV FLUSH SCH (09:44)
[2016-08-15] MEDS: SULFAMETHOXAZOLE-TRIMETHOPRIM DS 800-160 MG TAB PEG SCH (09:44)
[2016-08-15] MEDS: FAMOTIDINE 20 MG TAB NG SCH (09:44)
[2016-08-15] MEDS: MODAFINIL 200 MG TAB PO SCH (09:44)
[2016-08-15] MEDS ORDERED: HYDR1SOL3 PO (12:25)
[2016-08-15] MEDS ORDERED: HYOS0.129 PEG (12:25)
[2016-08-15] MEDS ORDERED: BACT800T5 PEG (12:25)
[2016-08-15] MEDS ORDERED: MODA200T12 PO (12:25)
[2016-08-15] MEDS ORDERED: FAMO20TA2 NG (12:25)
--- NOTE | 2016-08-15 12:26 | HHI.DCPOC ---
Discharge Care Plan Diagnosis: (1) S/P percutaneous endoscopic gastrostomy (PEG) tube placement (2) Severe sepsis with acute organ dysfunction (3) Global aphasia (4) UTI (urinary tract infection) (5) Fever (6) Acute respiratory failure (7) Candiduria (8) Tracheobronchitis (9) Acute respiratory failure with hypoxia and hypercarbia (10) GERD (gastroesophageal reflux disease) (11) Hypertension Goals to Promote Your Health * To prevent worsening of your condition and complications * To maintain your health at the optimal level Directions to Meet Your Goals Take your medications as prescribed Follow your dietary instruction Follow activity as directed Keep your appointments as scheduled Take your immunizations and boosters as scheduled If your symptoms worsen call your PCP, if no PCP go to Urgent Care Center or Emergency Room Smoking is Dangerous to Your Health. Avoid second hand smoke Call the 24-hour hour crisis hotline for domestic abuse at Zac Dolan MD Aug 15, 2016 12:26
--- NOTE | 2016-08-15 12:42 | HHI.PR ---
Subjective Remarks Patient seen and examined with Dr. Dolan. Patient resting back comfortably. Does not follow commands. No purposeful movements. He is on T piece at 28% oxygen. Objective Vitals Vital Signs Date Time Temp Pulse Resp B/P Pulse Ox O2 Delivery O2 Flow Rate FiO2 08/15/16 12:00 96 T-Piece 08/15/16 12:00 104 08/15/16 08:00 104 08/15/16 08:00 98.3 90 26 123/77 98 08/15/16 08:00 96 T-Piece 08/15/16 07:39 99 T-piece 28 08/15/16 04:00 100 08/15/16 04:00 98 T-Piece 08/15/16 04:00 97.6 100 28 110/65 99 08/15/16 00:00 104 08/15/16 00:00 98.6 104 28 88/73 97 08/15/16 00:00 96 T-Piece 08/14/16 20:00 96 T-Piece 08/14/16 20:00 100 08/14/16 20:00 98.6 96 24 102/59 96 08/14/16 19:45 95 T-piece 28 08/14/16 17:00 88 08/14/16 16:00 95 T-Piece 08/14/16 16:00 98.7 88 22 124/65 96 08/14/16 16:00 94 08/14/16 14:00 94 08/14/16 13:00 92 I/O 08/14/16 08/14/16 08/14/16 08/15/16 08/15/16 08/15/16 07:00 15:00 23:00 07:00 15:00 23:00 Intake Total 466 ml 1072 ml 572 ml Balance 466 ml 1072 ml 572 ml Tube Feeding 266 ml 672 ml 372 ml Other 200 ml 400 ml 200 ml # Voids 4 5 1 # Bowel Movements 3 3 1 Objective Remarks GENERAL: Well-developed, cachectic, in no acute distress. HEENT: Head is normocephalic without any lesions or masses noted. NECK: Supple without any masses. Trachea midline no deviation. No JVD, tracheostomy noted. No signs of infection CARDIAC: Regular rhythm, regular rate. S1/S2 are heard. No murmurs gallops or rubs. LUNGS: Clear to auscultation bilaterally. No wheeze, rhonchi or rales. No use of accessory muscles on inspiration or expiration. ABDOMEN: Soft, nontender. Nondistended. Bowel sounds heard in all 4 quadrants. No organomegaly or masses. Negative rebound, negative guarding. PEG tube noted without any signs of infection EXTREMITIES: No edema, pulses are equal bilaterally. No cyanosis or clubbing. Left heel has drained hematoma NEUROLOGY: Patient with significant contractions of the upper and lower extremities. Urinary Catheter: No Date of Insertion: Jul 05, 2016 Vascular Central Line Catheter: No A/P Assessment and Plan VDRF/Healthcare associated pneumonia: -Patient has been tolerating T piece -HOB at 30 degrees -Pulmonology following: Aerosol nebs, Tracheal suction, Levsin qid, CPAP prn only, continue trach collar, continue Bactrim bid -RN states patient had increased oral secretions. Levsin 0.125 mg q6h prn. -Trach downsized to [place]iley 6 cuffed Severe sepsis: Resolved. -Enterobacter Cloacae UTI -MRSA in sputum, colonized -Klebsiella in sputum, colonized -Funguria with history of tropicalis and glabrata -Discontinued Zosyn/vancomycin and micafungin. -Continue on Bactrim suppression treatment. Alzheimer's dementia/delirium: Depression/anxiety -Acetaminophen/Lortab per G-tube for pain control -Monitor neuro status. -Continue Provigil 400 mg daily in attempt increased alertness. Has been on this since 06/25/16 with no notable improvement. HTN: -Monitor HR and BP keep MAP > 65mmHg Failure to thrive/Gastroesophageal reflux disease/Severe acute protein calorie malnutrition/Hypo-albuminemia: -TF to goal as tolerated with Glucerna 1.5 goal of 50 cc an hour -Continue Pepcid -Colace, Miralax BPH: -Monitor renal function, electrolytes replacement per protocol. Normocytic anemia: -Hemoglobin improved to 12.8. -Transfuse if hemoglobin below 7. -Monitor CBC Hyperglycemia of critical illness: -Accu-Cheks with sliding scale insulin with Accu-Cheks every 6 hours to maintain euglycemia Left heel blister and Sacral decubitus ulcer stage I: -Continue Multi-Podus boots, wound care following -Continue wrist splints alternating sides daily GI prophylaxis: Pepcid q12h. DVT prevention: SCDs. heparin sq 5000 q8hr Attending note: Patient seen. Agree with above. Discharge Planning Discharge to facility today once arrangements made Zac Cortez Aug 15, 2016 12:42 Zac Dolan MD Aug 15, 2016 14:47
[2016-08-15] MEDS: ACETAMINOPHEN 325MG/HYDROcodone 7.5MG/15ML UDC PO PRN (14:29)
--- NOTE | 2016-08-15 17:12 | HHI.PR ---
Subjective Remarks 80 YO male with Dementia, RF,Trach Pt aphasic Tolerates TF tolerates Trach collar On Fi02 28% Objective Vital Signs Vital Signs Date Time Temp Pulse Resp B/P Pulse Ox O2 Delivery O2 Flow Rate FiO2 08/15/16 16:38 98.2 87 16 141/82 97 08/15/16 16:37 104 08/15/16 16:37 96 T-Piece 08/15/16 15:19 24 08/15/16 13:30 99 Trach Collar 5.00 28 08/15/16 12:00 98.9 89 24 109/52 97 08/15/16 12:00 96 T-Piece 08/15/16 12:00 104 08/15/16 08:00 104 08/15/16 08:00 98.3 90 26 123/77 98 08/15/16 08:00 96 T-Piece 08/15/16 07:39 99 T-piece 28 08/15/16 04:00 100 08/15/16 04:00 98 T-Piece 08/15/16 04:00 97.6 100 28 110/65 99 08/15/16 00:00 104 08/15/16 00:00 98.6 104 28 88/73 97 08/15/16 00:00 96 T-Piece 08/14/16 20:00 96 T-Piece 08/14/16 20:00 100 08/14/16 20:00 98.6 96 24 102/59 96 08/14/16 19:45 95 T-piece 28 I/O 08/14/16 08/14/16 08/14/16 08/15/16 08/15/16 08/15/16 07:00 15:00 23:00 07:00 15:00 23:00 Intake Total 466 ml 1072 ml 572 ml 623 ml Balance 466 ml 1072 ml 572 ml 623 ml Intake Oral 0 ml Tube Feeding 266 ml 672 ml 372 ml 423 ml Other 200 ml 400 ml 200 ml 200 ml # Voids 4 5 1 2 # Bowel Movements 3 3 1 1 Objective Remarks GENERAL: Elderly frail male, mild sob SKIN: Warm and dry. HEAD: Normocephalic. EYES: No scleral icterus. No injection or drainage. NECK: Supple, trachea midline. No JVD or lymphadenopathy. CARDIOVASCULAR: Regular rate and rhythm without murmurs, gallops, or rubs. RESPIRATORY: Breath sounds equal bilaterally. No accessory muscle use. GASTROINTESTINAL: Abdomen soft, non-tender, nondistended. MUSCULOSKELETAL: No cyanosis, or edema. BACK: Nontender without obvious deformity. No CVA tenderness. A/P Assessment and Plan RF,s/p Trach Aphasia Dysphagia Dementia PLAN: Aerosol nebs Tracheal suction Tube feeding 40 cc/hr Stable on trach collar DC Plans for SNF, stable from pulm standpoint Silverio Reyes MD Aug 15, 2016 17:12
--- NOTE | 2016-08-15 17:31 | HHI.DS ---
Discharge Summary Admission Date Jun 04, 2016 at 04:09 Discharge Date: Aug 15, 2016 Admitting Diagnosis severe sepsis/hypernatremia/intubated (1) UTI (urinary tract infection) ICD Code: N39.0 (2) Alzheimer's dementia ICD Code: F02.80 (3) Malnourished ICD Code: E46 (4) Acute respiratory failure with hypoxia and hypercarbia ICD Code: J96.01 (5) Hypertension ICD Code: I10 (6) GERD (gastroesophageal reflux disease) ICD Code: K21.9 (7) Diarrhea ICD Code: R19.7 (8) Fever ICD Code: R50.9 Procedures Bedside tracheostomy, PEG tube placement Brief History - From Admission 80 y/o NH patient with severe dehydration, UTI sepsis, respiratory failure admitted earlier. Nonverbal, minimally responsive. Cachectic, anasarca. Imaging Last Impressions Chest X-Ray 08/07/16 0600 Signed Impressions: Service Date/Time: Sunday, August 07, 2016 07:11 - CONCLUSION: Mild interstitial social prominence bilaterally with subsegmental atelectasis in the left midlung zone. There is improved aeration at the left lung base. Gary Tracy MD Abdomen X-Ray 07/28/16 0500 Signed Impressions: Service Date/Time: Thursday, July 28, 2016 04:17 - CONCLUSION: No gaseous distended loops of small or large bowel. Henri Lane MD Chest CT 07/21/16 0000 Signed Impressions: Service Date/Time: Thursday, July 21, 2016 16:26 - CONCLUSION: 1. Minimal bibasilar parenchymal changes without consolidation. 2. There is no significant pleural effusion. Stanley Parker MD FACR Abdomen/Pelvis CT 07/21/16 0000 Signed Impressions: Service Date/Time: Thursday, July 21, 2016 16:26 - CONCLUSION: 1. I do not see a source of infection. 2. There is mild induration in the root of the mesentery. This is nonspecific. Stanley Parker MD FACR PE at Discharge GENERAL: Well-developed, cachectic, in no acute distress. HEENT: Head is normocephalic without any lesions or masses noted. NECK: Supple without any masses. Trachea midline no deviation. No JVD, tracheostomy noted. No signs of infection CARDIAC: Regular rhythm, regular rate. S1/S2 are heard. No murmurs gallops or rubs. LUNGS: Clear to auscultation bilaterally. No wheeze, rhonchi or rales. No use of accessory muscles on inspiration or expiration. ABDOMEN: Soft, nontender. Nondistended. Bowel sounds heard in all 4 quadrants. No organomegaly or masses. Negative rebound, negative guarding. PEG tube noted without any signs of infection EXTREMITIES: No edema, pulses are equal bilaterally. No cyanosis or clubbing. Left heel has drained hematoma NEUROLOGY: Patient with significant contractions of the upper and lower extremities. Hospital Course VDRF/Healthcare associated pneumonia: -Patient has been tolerating T piece -HOB at 30 degrees -Pulmonology following: Aerosol nebs, Tracheal suction, Levsin qid, CPAP prn only, continue trach collar, continue Bactrim bid -RN states patient had increased oral secretions. Levsin 0.125 mg q6h prn. -Trach downsized to Shiley 6 cuffed Severe sepsis: Resolved. -Enterobacter Cloacae UTI -MRSA in sputum, colonized -Klebsiella in sputum, colonized -Funguria with history of tropicalis and glabrata -Discontinued Zosyn/vancomycin and micafungin. -Continue on Bactrim suppression treatment. Alzheimer's dementia/delirium: Depression/anxiety -Acetaminophen/Lortab per G-tube for pain control -Monitor neuro status. -Continue Provigil 400 mg daily in attempt increased alertness. Has been on this since 06/25/16 with no notable improvement. HTN: -Monitor HR and BP keep MAP > 65mmHg Failure to thrive/Gastroesophageal reflux disease/Severe acute protein calorie malnutrition/Hypo-albuminemia: -TF to goal as tolerated with Glucerna 1.5 goal of 50 cc an hour -Continue Pepcid -Colace, Miralax BPH: -Monitor renal function, electrolytes replacement per protocol. Normocytic anemia: -Hemoglobin improved to 12.8. -Transfuse if hemoglobin below 7. -Monitor CBC Hyperglycemia of critical illness: -Accu-Cheks with sliding scale insulin with Accu-Cheks every 6 hours to maintain euglycemia Left heel blister and Sacral decubitus ulcer stage I: -Continue Multi-Podus boots, wound care following -Continue wrist splints alternating sides daily Pt Condition on Discharge: Stable Discharge Disposition: Discharge to SNF Discharge Time: > 30 minutes Discharge Instructions DIET: Follow Instructions for: Nothing By Mouth, On Tube Feeding Additional Diet Instructions: Glucerna 1.5 at 50mL/hour Activities you can perform: Continue Bedrest Follow up Referrals: Pulmonology with Silverio Reyes MD New Medications: Famotidine (Famotidine) 20 Mg Tab 10 MG NG BID Reflux #60 TAB Hydrocodone-Acetaminophen Liq (Hydrocodone-Acetaminophen Liq) 7.5-325 Mg/15 Ml Soln 15 ML PO Q6H PRN aggitation, pain 6-10 #120 Ref 0 ML Hyoscyamine Sulfate (Hyoscyamine Sulfate) 0.125 Mg Tab 0.125 MG PEG Q6HR PRN excessive oral secretions #30 TAB Modafinil (Modafinil) 200 Mg Tab 400 MG PO DAILY somnolence #10 Ref 0 TAB Sulfamethoxazole-Trimethoprim (Bactrim DS) 800-160 Mg Tab 1 TAB PEG Q12HR Infection #60 TAB Discontinued Medications: Ceftriaxone Inj (Ceftriaxone Inj) 1 Gm Inj 1 GM IM ONCE Infection #1 Ref 0 VIAL Lactic Acid (Ammonium Lactate) (Ammonium Lactate) 12 % Cre 1 APPLIC TOP BID APPLY TO: CRE Levofloxacin in D5w (Levofloxacin in 5% Dextro 750 mg/150Ml) 1 Inj Inj IV Multiple Vitamins W/ Minerals (Multivitamin Adults) 1 Tab 1 TAB PO DAILY Nutritional Supplement Ref 0 TAB Probiotic Product (Acidophilus) 1 Cap Cap Additional Information Written by Zac Cortez, acting as scribe for Dr. Dolan on 08/15/16 at 17:30. All or portions of this note were transcribed by scribe Zac Cortez. I, Dr. Zac Dolan personally performed the history, physical exam, and medical decision making; and confirmed the accuracy of the information in the transcribed note. Authenticated by Dr. Zac Dolan on 08/15/16 at 18:28. Zac Cortez Aug 15, 2016 17:31 Zac Dolan MD Aug 15, 2016 18:28
== END 2016-08-15 17:16 | DRG 4 ==
LOC: NEPC 02:03 → NEDA 04:09 → HIMN 05:05 → N05A 06-25 23:00 → N03A 07-21 13:05 → PHICU 07-22 15:59
PROVIDERS: ADMIT Family Medicine; ATTEND Family Medicine
PROC: 5A1955Z Respiratory Ventilation, Greater than 96 Consecutive Hours (ICD-10-PCS; 2016-06-04)
PROC: 0BH17EZ Insertion of Endotracheal Airway into Trachea, Via Natural or Artificial Opening (ICD-10-PCS; 2016-06-04)
PROC: 0D20XUZ Change Feeding Device in Upper Intestinal Tract, External Approach (ICD-10-PCS; 2016-06-04)
PROC: 02HV33Z Insertion of Infusion Device into Superior Vena Cava, Percutaneous Approach (ICD-10-PCS; 2016-06-04)
PROC: 0B113F4 Bypass Trachea to Cutaneous with Tracheostomy Device, Percutaneous Approach (ICD-10-PCS; principal; 2016-06-13)
PROC: 0BJ08ZZ Inspection of Tracheobronchial Tree, Via Natural or Artificial Opening Endoscopic (ICD-10-PCS; 2016-06-13)
PROC: 0B21XFZ Change Tracheostomy Device in Trachea, External Approach (ICD-10-PCS; 2016-07-08)
DX: A41.9 Sepsis, unspecified organism (principal); E43 Unspecified severe protein-calorie malnutrition; G93.40 Encephalopathy, unspecified; N17.9 Acute kidney failure, unspecified; E87.0 Hyperosmolality and hypernatremia; J18.9 Pneumonia, unspecified organism; J96.22 Acute and chronic respiratory failure with hypercapnia; D69.6 Thrombocytopenia, unspecified; R64 Cachexia; E44.0 Moderate protein-calorie malnutrition; J44.0 Chronic obstructive pulmonary disease with (acute) lower respiratory infection; J96.01 Acute respiratory failure with hypoxia; B37.49 Other urogenital candidiasis; J98.11 Atelectasis; E87.2 Acidosis; N39.0 Urinary tract infection, site not specified; R47.01 Aphasia; L97.429 Non-pressure chronic ulcer of left heel and midfoot with unspecified severity; K56.7 Ileus, unspecified; R65.20 Severe sepsis without septic shock; L89.151 Pressure ulcer of sacral region, stage 1; R13.10 Dysphagia, unspecified; E86.0 Dehydration; G30.9 Alzheimer's disease, unspecified; F02.80 Dementia in other diseases classified elsewhere, unspecified severity, without behavioral disturbance, psychotic disturbance, mood disturbance, and anxiety; E87.6 Hypokalemia; R73.9 Hyperglycemia, unspecified; I10 Essential (primary) hypertension; R62.7 Adult failure to thrive; N40.0 Benign prostatic hyperplasia without lower urinary tract symptoms; K21.9 Gastro-esophageal reflux disease without esophagitis; D64.9 Anemia, unspecified; G89.29 Other chronic pain; E83.39 Other disorders of phosphorus metabolism; F32.9 Major depressive disorder, single episode, unspecified; F41.9 Anxiety disorder, unspecified; Y95 Nosocomial condition; Z16.24 Resistance to multiple antibiotics; Z74.01 Bed confinement status; Z93.1 Gastrostomy status
CPT/HCPCS: 31500; 36556; 36600; 71010; 71260; 74000; 74176; 74177; 76937; 80048; 80053; 80076; 80202; 81001; 82272; 82550; 82565; 82805; 82947; 82948; 83605; 83690; 83735; 84100; 84132; 84155; 85007; 85014; 85018; 85025; 85027; 85610; 86403; 87040; 87070; 87077; 87086; 87106; 87147; 87186; 87205; 87449; 87493; 87641; 93005; 94002; 94003; 94640; 94664; 96365; 96375; A7521; C9113; J0171; J0456; J0610; J0692; J0696; J1170; J1450; J1644; J1815; J1817; J1940; J2248; J2250; J2270; J2405; J2543; J2765; J3010; J3370; J3480; J7030; J7040; J7050; J7070; J7120; P9047; Q9967

== ENCOUNTER 2016-08-15 18:53 | Emergency (ER) | payer MEDICAID, OTHER ==
[~2016-08-15] VITALS: Ht 177.8 cm; Wt 72.0 kg
[~2016-08-15 18:53] MED LIST changes: +AMMO12CR4 TOP; -APAP325T G-TUBE; +BACT800T5 PEG; +CEFT1INJ IM; +FAMO20TA2 NG; +HYDR1SOL3 PO; +HYOS0.129 PEG; -JEVILIQ10 G-TUBE; +LEVO1INJ IV; +MODA200T12 PO; -MULT-65 G-TUBE; +MULT1TAB84 PO; +PROB1CAP12; -TAMS0.4C67 G-TUBE; -VITA500C3 G-TUBE; -ZINC220C3 G-TUBE
[2016-08-15 19:10] VITALS: O2SAT 97
[2016-08-15 19:17] VITALS: BP 115/60; PULSE 94; RESP 18; TEMP 98.8; O2SAT 95
[2016-08-15 19:25] VITALS: RESP 18; O2SAT 97
[2016-08-15] MEDS ORDERED: SODIUM CHLORIDE 0.9% FLUSH 10 ML FLUSH IVF PRN (19:30)
[2016-08-15] MEDS: RESP: ALBUTEROL 2.5 MG/IPRATROPIUM 0.5 MG NEB (SCH) INH (19:30)
--- NOTE | 2016-08-15 20:06 | RADRPT ---
EXAM DATE/TIME: 08/15/2016 19:37 [facility] COMPARISON: CHEST SINGLE AP, August 07, 2016, 7:11. INDICATIONS : Shortness of breath. MEDICAL HISTORY : None. SURGICAL HISTORY : None. ENCOUNTER: Initial ACUITY: 1 day PAIN SCORE: Non-responsive. LOCATION: Bilateral chest FINDINGS: Tracheostomy tube is noted in good position 5 cm above the dario. The heart is stable. The pulmona ry vascular pattern is normal. The lungs are clear. CONCLUSION: 1. No acute cardiopulmonary disease. Silvestre Roque MD on August 15, 2016 at 20:03 Board Certified Radiologist. This report was verified electronically.
--- NOTE | 2016-08-15 20:40 | PD ---
HPI Chief Complaint: Respiratory Symptoms Time Seen by Provider: 19:13 Travel History International Travel<30 days: No Contact w/Intl Traveler<30days: No Traveled to known affect area: No History of Present Illness HPI The patient is an 80 year old male who presents to the [facility] emergency department with a history of being brought in from a local detention after discharge from the hospital earlier today. The patient was at the detention for approximately 30 minutes according to ambulance services. They were concerned that the patient appeared to be in respiratory distress, therefore they called even back. The patient was noted by ambulance services to have scattered rhonchi and mucus in his trach. The detention reported that they have no respiratory therapy available today, therefore they were not able to suction the trach. The patient on ambulance services arrival is saturating 96- 97% on his usual 3 L supplementation through his trach. The patient's history is complicated by being admitted from June 04 through August 15, today for severe sepsis, hypernatremia, respiratory failure status post intubation and then trach placement. The patient is nonverbal and is unable to provide any significant history. On arrival the patient appears to be in no acute distress , saturations are 96%. [facility] Past Medical History Narrative Medical The patient's past medical history is significant for recent admission from June 04 through today related to severe sepsis, hypernatremia, respiratory failure status post tracheostomy placement and feeding tube placement. The patient's sepsis was related to a urinary tract infection. The patient has a prior history of dementia, failure to thrive, history of dehydration, history of electrolyte abnormalities, history of benign prostatic hypertrophy Medical History: Unable to Obtain Alzheimer's Disease: Yes Blood Disorders: No Anxiety: No Depression: No Heart Rhythm Problems: No Cancer: No Cardiovascular Problems: No High Cholesterol: No Chest Pain: No Congestive Heart Failure: No Dementia: Yes Diabetes: No Endocrine: No Gastrointestinal Disorders: Yes (constipation, FAILURE TO THRIVE) Genitourinary: Yes (hypertrophy benign) Hypertension: Yes Musculoskeletal: No Neurologic: Yes (AMS, ALZHEIMERS, DEMENTIA, SYNCOPE) Reproductive: No Respiratory: Yes (RESP MRSA) Thyroid Disease: No Past Surgical History Narrative Surgical The patient's past surgical history is unable to be obtained from the patient, however his recent surgical history is significant for trach placement and PEG tube feeding tube placement. Surgical History: Unable to Obtain Other Surgery: Yes Social History Alcohol Use: No Tobacco Use: No Substance Use: No Allergies-Medications (Allergen,Severity, Reaction): Coded Allergies: *MDRO Multi-Drug Resistant Organism (Verified Adverse Reaction, Unknown, ) MRSA (sputum) - 06/28/16, 07/12/16, 07/21/16 Reported Meds & Prescriptions Reported Meds & Active Scripts Active Modafinil 200 Mg Tab 400 Mg PO DAILY Hydrocodone-Acetaminophen Liq 7.5-325 Mg/15 Ml Soln 15 Ml PO Q6H PRN Reported Multivitamin Adults (Multiple Vitamins W/ Minerals) 1 Tab 1 Tab PO DAILY Ceftriaxone Inj (Ceftriaxone Sodium) 1 Gm Inj 1 Gm IM ONCE Levofloxacin in 5% Dextro 750 mg/150Ml (Levofloxacin in D5w) 1 Inj Inj IV Acidophilus (Probiotic Product) 1 Cap Cap Ammonium Lactate (Lactic Acid) 12 % Cre 1 Applic TOP BID APPLY TO: Review of Systems ROS Limitations: Clinical Condition Physical Exam Narrative General: The patient is a well-developed, bed bound appearing male with contractures of his upper and lower extremities, in no acute distress. Head and Neck exam: Head is normocephalic atraumatic. Eyes: EOMI, pupils are equal round and reactive to light. Nose: Midline septum with pink mucous membranes Mouth: Dentition unremarkable. Moist mucus membranes. Posterior oropharynx is not erythematous. No tonsillar hypertrophy. Uvula midline. Airway patent. Neck: No palpable lymphadenopathy. No nuchal rigidity. No thyromegaly. Tracheostomy in place that appears to be in good repair. Cardiovascular: Regular rate and rhythm without murmurs, gallops, or rubs. No pulse deficit to the extremities. Lungs: Scattered rhonchi with upper airway sounds noted that appear to be coming from his tracheostomy. No crackles, no wheezes audible. No accessory muscle use. The patient on reexamination has clear breath bilaterally sounds after being suctioned. Abdomen: Soft, without tenderness to palpation in all 4 quadrants of the abdomen. No guarding, rebound, or rigidity. The patient has a feeding tube in place in the left upper quadrant of the abdomen that appears to be in good repair. Extremities: No clubbing, cyanosis, or edema. 2+ pulses in all 4 extremities. Neurologic Exam: At baseline. Data Data Last Documented VS Vital Signs Date Time Temp Pulse Resp B/P Pulse Ox O2 Delivery O2 Flow Rate FiO2 08/15/16 19:25 97 Venturi Mask 28 08/15/16 19:25 18 08/15/16 19:22 97 08/15/16 19:17 98.8 115/60 Orders Complete Blood Count With Diff (08/15/16 19:21) Comprehensive Metabolic Panel (08/15/16 19:21) B-Type Natriuretic Peptide (08/15/16 19:21) Act Partial Throm Time (Ptt) (08/15/16 19:21) Prothrombin Time / Inr (Pt) (08/15/16 19:21) Ckmb (Isoenzyme) Profile (08/15/16 19:21) Troponin I (08/15/16 19:21) Urinalysis - C+S If Indicated (08/15/16 19:21) Blood Culture (08/15/16 19:21) Iv Access Insert/Monitor (08/15/16 19:21) Electrocardiogram (08/15/16 19:21) Ecg Monitoring (08/15/16 19:21) Oximetry (08/15/16 19:21) Oxygen Administration (08/15/16 19:21) Chest, Single Ap (08/15/16 19:21) Sodium Chloride 0.9% Flush (Ns Flush) (08/15/16 19:30) Albuterol-Ipratropium Neb (Duoneb Neb) (08/15/16 19:30) Resp Respiratory Parameters (08/15/16 ) CKMB (08/15/16 20:45) CKMB% (08/15/16 20:45) Sodium Chlorid 0.9% 500 Ml Inj (Ns 500 M (08/15/16 22:00) Labs Laboratory Tests Test 08/15/16 20:45 White Blood Count 10.5 TH/MM3 Red Blood Count 5.08 MIL/MM3 Hemoglobin 13.9 GM/DL Hematocrit 42.5 % Mean Corpuscular Volume 83.7 FL Mean Corpuscular Hemoglobin 27.4 PG Mean Corpuscular Hemoglobin 32.7 % Concent Red Cell Distribution Width 17.7 % Platelet Count 297 TH/MM3 Mean Platelet Volume 7.8 FL Neutrophils (%) (Auto) 57.6 % Lymphocytes (%) (Auto) 25.7 % Monocytes (%) (Auto) 7.9 % Eosinophils (%) (Auto) 7.8 % Basophils (%) (Auto) 1.0 % Neutrophils # (Auto) 6.0 TH/MM3 Lymphocytes # (Auto) 2.7 TH/MM3 Monocytes # (Auto) 0.8 TH/MM3 Eosinophils # (Auto) 0.8 TH/MM3 Basophils # (Auto) 0.1 TH/MM3 CBC Comment DIFF FINAL Differential Comment Prothrombin Time 11.2 SEC Prothromb Time International 1.0 RATIO Ratio Activated Partial 25.4 SEC Thromboplast Time Sodium Level 139 MEQ/L Potassium Level 4.6 MEQ/L Chloride Level 102 MEQ/L Carbon Dioxide Level 27.3 MEQ/L Anion Gap 10 MEQ/L Blood Urea Nitrogen 33 MG/DL Creatinine 1.43 MG/DL Estimat Glomerular Filtration 47 ML/MIN Rate Random Glucose 177 MG/DL Calcium Level 10.7 MG/DL Total Bilirubin 0.5 MG/DL Aspartate Amino Transf 58 U/L (AST/SGOT) Alanine Aminotransferase 46 U/L (ALT/SGPT) Alkaline Phosphatase 93 U/L Total Creatine Kinase 166 U/L Creatine Kinase MB 2.6 NG/ML Troponin I LESS THAN 0.02 NG/ML B-Type Natriuretic Peptide 27 PG/ML Total Protein 10.6 GM/DL Albumin 4.1 GM/DL [facility] Medical Decision Making Medical Screen Exam Complete: Yes Emergency Medical Condition: Yes Medical Record Reviewed: Yes Differential Diagnosis Mucus plugging, versus trach obstruction related to mucus, versus pneumonia Narrative Course During the course of the patients emergency department visit, the patients history, examination, and differential diagnosis were reviewed with the patient. The patient had IV access obtained and blood work sent for analysis. The patient was placed on a front desk monitor with oximetry and blood pressure monitoring. The patient was continued on his usual supplemental oxygen by trach. Respiratory therapy was called at the bedside to administer a DuoNeb. The patient will also had deep suction for his trach to clear any mucus. A chest x-ray was ordered. The patient's electronic medical record was reviewed regarding his recent history. The patients laboratory studies were reviewed and remarkable for a white count of 10.5, hemoglobin 13.9, platelets 297 with an eosinophil predominance of 7.8. CMP is remarkable for a BUN of 33, creatinine 1.43 slightly increased compared to previously at 20 and 1.0 respectively, therefore the patient was given a normal saline 500 mL bolus 1. The patient has likely not received his usual tube feedings today due to being recently discharged from the hospital and that quickly brought back to the emergency department after initial evaluation at the detention facility. Cardiac enzymes are within normal limits, BNP is 27, AST is 58, PT PTT is unremarkable. Radiology studies were reviewed and remarkable for a chest x-ray that shows no acute abnormality. The patient is resting comfortably, is alert, and in no distress. The repeat examination is unremarkable and benign. The history, exam, diagnostic testing, and current condition do not suggest any significant pathology to warrant further testing, continued ED treatment, admission, or surgical evaluation at this point. The vital signs have been stable. The patient does not have uncontrollable pain, intractable vomiting, or other significant symptoms. The patient's condition is stable and appropriate for discharge. The patient will pursue further outpatient evaluation with a primary care physician or other designated or consulting physician as indicated in the discharge instructions. Diagnosis Primary Impression: Chest congestion Additional Impression: Mucus plugging of bronchi Referrals: Primary Care Physician 2 days Patient Instructions: General Instructions Med/Other Pt SpecificInfo: No Change to Meds Disposition: 03 DISCHARGE TO SNF Condition: Stable Kirsten Lewis MD Aug 15, 2016 20:40
[2016-08-15 20:58] LABS: BASOPHIL # 0.1 TH/MM3 (0-0.2); EOSINOPHIL # 0.8 TH/MM3 (0-0.4); EOSINOPHIL % 7.8 % (0.0-4.0); HEMATOCRIT 42.5 % (39.0-51.0); HEMO FLAGS DIFF FINAL; LYMPH % 25.7 % (9.0-44.0); LYMPHOCYTE # 2.7 TH/MM3 (1.0-4.8); MEAN CELL VOLUME 83.7 FL (80.0-100.0); MEAN CORPUSCULAR HEMOGLOBIN 27.4 PG (27.0-34.0); MEAN CORPUSCULAR HGB CONC 32.7 % (32.0-36.0); MONO % 7.9 % (0.0-8.0); NEUT % 57.6 % (16.0-70.0); PLATELET COUNT 297 TH/MM3 (150-450); RED BLOOD COUNT 5.08 MIL/MM3 (4.50-5.90); RED CELL DISTRIBUTION WIDTH 17.7 % (11.6-17.2); WHITE BLOOD COUNT 10.5 TH/MM3 (4.0-11.0)
[2016-08-15 21:22] LABS: ALKALINE PHOSPHATASE 93 U/L (45-117); ANION GAP 10 MEQ/L (5-15); AST (GOT) 58 U/L (15-37); BICARBONATE 27.3 MEQ/L (21.0-32.0); BLOOD UREA NITROGEN 33 MG/DL (7-18); CHLORIDE 102 MEQ/L (98-107); CREATINE KINASE 166 U/L (39-308); GLOMERULAR FILTRATION RATE 47 ML/MIN (>89); SODIUM (NA) 139 MEQ/L (136-145); TOTAL BILIRUBIN ADULT 0.5 MG/DL (0.2-1.0)
[2016-08-15 21:23] LABS: PROTHROMBIN TIME - PATIENT 11.2 SEC (9.8-11.6)
[2016-08-15 21:27] LABS: APTT (PATIENT) 25.4 SEC (24.3-30.1); POTASSIUM 4.6 MEQ/L (3.5-5.1)
[2016-08-15 21:40] LABS: CKMB 2.6 NG/ML (0.5-3.6)
[2016-08-15 21:56] LABS: ALT (GPT) 46 U/L (12-78)
[2016-08-15] MEDS ORDERED: SODIUM CHLORID 0.9% 500 ML INJ 500 ML IV ONE (22:00)
[2016-08-16 01:14] VITALS: BP 98/53; PULSE 95; RESP 21; O2SAT 98
[2016-08-16 01:30] VITALS: BP 105/59; PULSE 96; RESP 18; TEMP 98.7; O2SAT 97
[2016-08-16 04:52] VITALS: BP 105/62; PULSE 102; RESP 20; O2SAT 98
[2016-08-16 08:26] VITALS: TEMP 99
--- NOTE | 2016-08-16 20:37 | EKG ---
Date Performed: 08/15/2016 Time Performed: 20:53:46 PTAGE: 80 years EKG: SINUS TACHYCARDIA NONSPECIFIC T-WAVE ABNORMALITY ABNORMAL RHYTHM ECG PREVIOUS TRACING : 06/04/2016 02.09 Compared to prior tracing no significant change DOCTOR: Herman Hartmann Interpretating Date/Time 08/16/2016 20:36:17
== END 2016-08-16 10:00 ==
LOC: NEPE 18:53 → NEPA 08-16 10:00
DX: R09.89 Other specified symptoms and signs involving the circulatory and respiratory systems (principal); T17.990A Other foreign object in respiratory tract, part unspecified in causing asphyxiation, initial encounter; R94.31 Abnormal electrocardiogram [ECG] [EKG]; I10 Essential (primary) hypertension; G30.9 Alzheimer's disease, unspecified; X58.XXXA Exposure to other specified factors, initial encounter
CPT/HCPCS: 71010; 80053; 82550; 82552; 83880; 84484; 85025; 85610; 85730; 87040; 93005; 94640; 94664; 99284; J7040

== ENCOUNTER 2016-08-18 01:20 | Emergency (ER) | payer MEDICAID, OTHER ==
[~2016-08-18 01:20] MED LIST changes: -AMMO12CR4 TOP; -CEFT1INJ IM; -LEVO1INJ IV; -MULT1TAB84 PO; -PROB1CAP12
[2016-08-18 01:39] VITALS: BP 123/59; PULSE 114; RESP 22; TEMP 98.6; O2SAT 95
[2016-08-18] MEDS ORDERED: PIPERACIL-TAZO 3.375 GM PREMIX 50 ML IV ONE (01:45)
[2016-08-18] MEDS ORDERED: VANCOMYCIN INJ 1,000 MG in SODIUM CHLOR 0.9% 250 ML INJ 250 ML IV ONE (01:45)
[2016-08-18] MEDS ORDERED: ACETAMINOPHEN 650 MG SUPP RECTAL ONE (01:45)
[2016-08-18] MEDS ORDERED: SODIUM CHLOR 0.9% 1000 ML INJ 1,000 ML IV ONE ×3 (01:45)
[2016-08-18 01:58] LABS: AUTOMATED NEUTROPHIL # 8.2 TH/MM3 (1.8-7.7); BASOPHIL # 0.1 TH/MM3 (0-0.2); BASOPHIL % 0.8 % (0.0-2.0); EOSINOPHIL # 0.4 TH/MM3 (0-0.4); EOSINOPHIL % 3.3 % (0.0-4.0); HEMATOCRIT 36.4 % (39.0-51.0); HEMO FLAGS DIFF FINAL; LYMPH % 19.6 % (9.0-44.0); LYMPHOCYTE # 2.3 TH/MM3 (1.0-4.8); MEAN CELL VOLUME 85.5 FL (80.0-100.0); MEAN CORPUSCULAR HEMOGLOBIN 27.4 PG (27.0-34.0); MEAN CORPUSCULAR HGB CONC 32.1 % (32.0-36.0); NEUT % 68.3 % (16.0-70.0); PLATELET COUNT 233 TH/MM3 (150-450); RED BLOOD COUNT 4.26 MIL/MM3 (4.50-5.90); RED CELL DISTRIBUTION WIDTH 17.9 % (11.6-17.2)
--- NOTE | 2016-08-18 02:09 | RADRPT ---
EXAM DATE/TIME: 08/18/2016 01:43 [facility] COMPARISON: CHEST SINGLE AP, August 15, 2016, 19:37. INDICATIONS : Shortness of breath. MEDICAL HISTORY : Hypertension. Failure to thrive. SURGICAL HISTORY : Tracheostomy. ENCOUNTER: Initial ACUITY: 1 day PAIN SCORE: Non-responsive. LOCATION: Bilateral chest FINDINGS: Rotated and underinflated AP view of the chest demonstrates a normal-sized cardiac silhouette. Trache ostomy overlies the tracheal air shadow. Lungs are underinflated with atelectasis at the bases. No ef fusion, consolidation, or pneumothorax is visualized. No acute osseous abnormality is seen. CONCLUSION: Underinflated examination with atelectasis at the lung bases. Otherwise, no acute finding is visualiz ed. Gary Tracy MD on August 18, 2016 at 2:07 Board Certified Radiologist. This report was verified electronically.
[2016-08-18 02:15] LABS: APTT (PATIENT) 25.3 SEC (24.3-30.1); INTERNATIONAL NORMALIZED RATIO 1.1 RATIO
[2016-08-18 02:17] LABS: ALKALINE PHOSPHATASE 62 U/L (45-117); ALT (GPT) 34 U/L (12-78); ANION GAP 11 MEQ/L (5-15); AST (GOT) 24 U/L (15-37); BICARBONATE 22.5 MEQ/L (21.0-32.0); CHLORIDE 115 MEQ/L (98-107); GLOMERULAR FILTRATION RATE 52 ML/MIN (>89); POTASSIUM 4.1 MEQ/L (3.5-5.1); SODIUM (NA) 148 MEQ/L (136-145); TOTAL BILIRUBIN ADULT 0.3 MG/DL (0.2-1.0)
[2016-08-18 02:18] LABS: BLOOD UREA NITROGEN 33 MG/DL (7-18)
--- NOTE | 2016-08-18 02:40 | RADRPT ---
EXAM DATE/TIME: 08/18/2016 02:19 [facility] COMPARISON: CT BRAIN W/O CONTRAST, November 23, 2014, 16:45. INDICATIONS : Altered mental status. RADIATION DOSE: 56.35 CTDIvol (mGy) MEDICAL HISTORY : Hypertension. Alzheimer's. Dementia. SURGICAL HISTORY : None. ENCOUNTER: Initial ACUITY: 1 day PAIN SCALE: Non-responsive LOCATION: cranial TECHNIQUE: Multiple contiguous axial images were obtained of the head. Using automated exposure control and adj ustment of the mA and/or kV according to patient size, radiation dose was kept as low as reasonably a chievable to obtain optimal diagnostic quality images. FINDINGS: CEREBRUM: There is severe cerebral atrophy. Ventricles are enlarged. There is encephalomalacia in the right fro ntal high convexity and there is an old lacunae in the right periventricular region. No evidence of midline shift, mass lesion, hemorrhage or acute infarction. No extra-axial fluid collections are see n. POSTERIOR FOSSA: There is cerebellar atrophy. The 4th ventricle is midline. The cerebellopontine angle is unremarkab le. EXTRACRANIAL: Visualized sinuses demonstrate no acute finding. SKULL: The calvaria is intact. No evidence of skull fracture. CONCLUSION: 1. No acute intracranial abnormality is identified. 2. There is severe diffuse generalized atrophy that has progressed since the prior examination. There is right frontal encephalomalacia and an old lacunae in the right basal ganglia. Although chronic, t hese findings are new since the 2014 examination. Gary Tracy MD on August 18, 2016 at 2:35 Board Certified Radiologist. This report was verified electronically.
--- NOTE | 2016-08-18 03:32 | PD ---
HPI Chief Complaint: Altered Mental Status Time Seen by Provider: 01:30 Travel History International Travel<30 days: No Contact w/Intl Traveler<30days: No Traveled to known affect area: No History of Present Illness HPI 80yo M with alzheimer's disease, severe sepsis s/p tracheostomy 06/04-08/15 was sent here from [facility] for respiratory distress. Pt is nonverbal at baseline. Pt appears dehydrated. Saturating well with trach collar. Unable to obtain further information from patient. PFSH Past Medical History Alzheimer's Disease: Yes Blood Disorders: No Anxiety: No Depression: No Heart Rhythm Problems: No Cancer: No Cardiovascular Problems: No High Cholesterol: No Chest Pain: No Congestive Heart Failure: No Dementia: Yes Diabetes: No Endocrine: No Gastrointestinal Disorders: Yes (constipation, FAILURE TO THRIVE) Genitourinary: Yes (hypertrophy benign) Hypertension: Yes Musculoskeletal: No Neurologic: Yes (AMS, ALZHEIMERS, DEMENTIA, SYNCOPE) Reproductive: No Respiratory: Yes (RESP MRSA) Thyroid Disease: No Tetanus Vaccination: Unknown Past Surgical History Surgical History: Unable to Obtain Other Surgery: Yes (TRACHEOSTOMY) Social History Alcohol Use: No Tobacco Use: No Substance Use: No Allergies-Medications (Allergen,Severity, Reaction): Coded Allergies: *MDRO Multi-Drug Resistant Organism (Verified Adverse Reaction, Unknown, ) MRSA (sputum) - 06/28/16, 07/12/16, 07/21/16 Reported Meds & Prescriptions Reported Meds & Active Scripts Active Bactrim DS (Sulfamethoxazole-Trimethoprim) 800-160 Mg Tab 1 Tab PEG Q12HR Modafinil 200 Mg Tab 400 Mg PO DAILY Hyoscyamine Sulfate 0.125 Mg Tab 0.125 Mg PEG Q6HR PRN Hydrocodone-Acetaminophen Liq 7.5-325 Mg/15 Ml Soln 15 Ml PO Q6H PRN Famotidine 20 Mg Tab 10 Mg NG BID Review of Systems ROS Limitations: Clinical Condition Physical Exam Narrative GENERAL: 80yo M in mild distress. SKIN: Focused skin assessment warm/dry. HEAD: Atraumatic. Normocephalic. EYES: Pupils equal and round at 3mm bilaterally. ENT: No nasal bleeding or discharge. Mucous membranes pink and moist. NECK: Trachea midline. No JVD. CARDIOVASCULAR: Regular rate and rhythm. No murmur appreciated. RESPIRATORY: No accessory muscle use. Coarse breath sounds bilaterally. GASTROINTESTINAL: Abdomen soft, non-tender, nondistended. MUSCULOSKELETAL: Contracted extremities. NEUROLOGICAL: Nonverbal. Dementia, likely at baseline mental status. Data Data Last Documented VS Vital Signs Date Time Temp Pulse Resp B/P Pulse Ox O2 Delivery O2 Flow Rate FiO2 08/18/16 07:00 100 18 99/67 99 Trach Collar 28 08/18/16 04:36 98.3 Orders Complete Blood Count With Diff (08/18/16 01:33) Comprehensive Metabolic Panel (08/18/16 01:33) Lactic Acid Sepsis Protocol (08/18/16 01:33) Prothrombin Time / Inr (Pt) (08/18/16 01:33) Act Partial Throm Time (Ptt) (08/18/16 01:33) Chest, Single Ap (08/18/16 ) Blood Culture (08/18/16 01:33) Ct Brain W/O Iv Contrast(Rout) (08/18/16 ) Urinalysis - C+S If Indicated (08/18/16 01:33) Insert Temp Sensing [place] Cath (08/18/16 01:33) Troponin I (08/18/16 01:33) Vancomycin Inj (Vancomycin Inj) (08/18/16 01:45) Piperacil-Tazo 3.375 Gm Premix (Zosyn 3. (08/18/16 01:45) Sodium Chlor 0.9% 1000 Ml Inj (Ns 1000 M (08/18/16 01:45) Sodium Chlor 0.9% 1000 Ml Inj (Ns 1000 M (08/18/16 01:45) Sodium Chlor 0.9% 1000 Ml Inj (Ns 1000 M (08/18/16 01:45) Acetaminophen Supp (Tylenol Supp) (08/18/16 01:45) Labs Laboratory Tests Test 08/18/16 08/18/16 01:30 04:30 White Blood Count 12.0 TH/MM3 Red Blood Count 4.26 MIL/MM3 Hemoglobin 11.7 GM/DL Hematocrit 36.4 % Mean Corpuscular Volume 85.5 FL Mean Corpuscular Hemoglobin 27.4 PG Mean Corpuscular Hemoglobin 32.1 % Concent Red Cell Distribution Width 17.9 % Platelet Count 233 TH/MM3 Mean Platelet Volume 7.7 FL Neutrophils (%) (Auto) 68.3 % Lymphocytes (%) (Auto) 19.6 % Monocytes (%) (Auto) 8.0 % Eosinophils (%) (Auto) 3.3 % Basophils (%) (Auto) 0.8 % Neutrophils # (Auto) 8.2 TH/MM3 Lymphocytes # (Auto) 2.3 TH/MM3 Monocytes # (Auto) 1.0 TH/MM3 Eosinophils # (Auto) 0.4 TH/MM3 Basophils # (Auto) 0.1 TH/MM3 CBC Comment DIFF FINAL Differential Comment Prothrombin Time 12.0 SEC Prothromb Time International 1.1 RATIO Ratio Activated Partial 25.3 SEC Thromboplast Time Sodium Level 148 MEQ/L Potassium Level 4.1 MEQ/L Chloride Level 115 MEQ/L Carbon Dioxide Level 22.5 MEQ/L Anion Gap 11 MEQ/L Blood Urea Nitrogen 33 MG/DL Creatinine 1.32 MG/DL Estimat Glomerular Filtration 52 ML/MIN Rate Random Glucose 186 MG/DL Lactic Acid Level 1.6 mmol/L Calcium Level 9.2 MG/DL Total Bilirubin 0.3 MG/DL Aspartate Amino Transf 24 U/L (AST/SGOT) Alanine Aminotransferase 34 U/L (ALT/SGPT) Alkaline Phosphatase 62 U/L Troponin I 0.02 NG/ML Total Protein 7.9 GM/DL Albumin 3.1 GM/DL Urine Color YELLOW Urine Turbidity CLEAR Urine pH 7.0 Urine Specific [place] 1.018 Urine Protein TRACE mg/dL Urine Glucose (UA) NEG mg/dL Urine Ketones NEG mg/dL Urine Occult Blood NEG Urine Nitrite NEG Urine Bilirubin NEG Urine Urobilinogen LESS THAN 2.0 MG/DL Urine Leukocyte Esterase NEG Urine RBC 1 /hpf Urine WBC 1 /hpf Urine Squamous Epithelial <1 /hpf Cells Urine Renal Epithelial Cells <1 /hpf Urine Hyaline Casts 12 /lpf Urine Mucus FEW /lpf Microscopic Urinalysis Comment CATH-CULT NOT IND MDM Medical Decision Making Medical Screen Exam Complete: Yes Emergency Medical Condition: Yes Differential Diagnosis Sepsis vs. dehydration vs. ICH vs. Pneumonia vs. UTI Narrative Course 80yo M here with respiratory distress as reason for transfer. However, pt is saturating well on trach collar. Pt does appear dehydrated and was initially tachycardic at 114bpm. No fever here. Pt was given NS IVF x3, vancomycin and zosyn empirically. Labs reviewed, mild leukocytosis at 12.0. H/H low at 11.7/ 36.4, at his baseline. BUN/creatinine 33/1.32. Lactic acid normal at 1.6. Na elevated at 148, likely from dehydration. HR has improved to 80s. Pt reevaluated at bedside and is more alert and opens eyes with verbal stimuli more readily. Pt also does not appear to be in distress. CXR showed underinflated examination with atelectasis at lung bases. No acute finding. CT brain showed no acute intracranial abnormality. Diffuse atrophy. Right frontal encephalomalacia and old lacunae in right basal ganglia. UA is negative. Pt was very dehydrated and now is better after IVF NS. Pt has no source of infection and tachycardia likely secondary to dehydration. Pt is nonverbal at baseline and is not in any respiratory distress. Will send pt back to correction. Diagnosis Primary Impression: Dehydration Patient Instructions: General Instructions Departure Forms: Tests/Procedures Additional Instructions: Please follow up with your PMD in 3-7 days. Return to the ED if symptoms worsen. Afia Alcantar DO Aug 18, 2016 03:32
[2016-08-18 04:36] VITALS: BP 126/56; PULSE 101; RESP 18; TEMP 98.3; O2SAT 97
[2016-08-18 05:45] VITALS: O2SAT 96
[2016-08-18 06:00] VITALS: BP 105/56; PULSE 100; RESP 16; O2SAT 100
[2016-08-18 06:00] LABS: BLOOD, URINE NEG (NEG); COMMENT (UR) CATH-CULT NOT IND; CULTURE IF INDICATED CATH CULTURE NOT IND; GLUCOSE,URINE NEG (NEG); HYALINE CAST, URINE 12 /lpf (RARE); KETONE, URINE NEG (NEG); MUCUS URINE FEW /lpf (OCC); NITRITE,URINE NEG (NEG); RENAL EPITHELIAL CELLS <1 /hpf; SQUAMOUS EPITHELIAL CELL URINE <1 /hpf (0-5); URINE COLOR YELLOW (YELLW/STRAW)
[2016-08-18 07:00] VITALS: BP 99/67; PULSE 100; RESP 18; O2SAT 99
--- NOTE | 2016-08-18 16:52 | EKG ---
Date Performed: 08/18/2016 Time Performed: 01:38:14 PTAGE: 80 years EKG: SINUS TACHYCARDIA NONSPECIFIC T-WAVE ABNORMALITY ABNORMAL RHYTHM ECG Compared to prior trac ing no significant change PREVIOUS TRACING : 08/15/2016 20.53 DOCTOR: Tenisha Cooper Interpretating Date/Time 08/18/2016 16:51:02
== END 2016-08-18 11:42 ==
LOC: NEPC 01:20
DX: E86.0 Dehydration (principal); G93.89 Other specified disorders of brain; F02.80 Dementia in other diseases classified elsewhere, unspecified severity, without behavioral disturbance, psychotic disturbance, mood disturbance, and anxiety; G30.9 Alzheimer's disease, unspecified; I10 Essential (primary) hypertension; R00.0 Tachycardia, unspecified; R06.02 Shortness of breath
CPT/HCPCS: 70450; 71010; 80053; 81001; 83605; 84484; 85025; 85610; 85730; 87040; 93005; 96374; 99284; J2543; J3370; J7030; J7050

== ENCOUNTER 2016-09-02 22:05 | Inpatient (IN) | payer MEDICAID ==
[~2016-09-02] VITALS: Ht 177.8 cm; Wt 64.0 kg
[2016-09-02] MEDS ORDERED: SODIUM CHLOR 0.9% 1000 ML INJ 800 ML IV ONE (22:16)
[2016-09-02] MEDS ORDERED: SODIUM CHLOR 0.9% 1000 ML INJ 1,000 ML IV ONE (22:16)
[2016-09-02 22:17] VITALS: BP 106/57; PULSE 113; RESP 18; O2SAT 100
[2016-09-02 22:33] LABS: BLOOD GAS VENOUS BASE EXCESS 4.3 mmol/L (-2-2); BLOOD GAS VENOUS HCO3 30 mmol/L (22-26); BLOOD GAS VENOUS O2 CONTENT 10.5 Vol % (9.0-17.0); BLOOD GAS VENOUS O2 HGB SAT 51 % (70-76); BLOOD GAS VENOUS PCO2 55 mmHg (44-48); BLOOD GAS VENOUS PO2 32 mmHg (35-40); BLOOD GAS VENOUS pH 7.35 (7.360-7.400); CRITICAL VALUE NO; TEMP CORR TO 98.6
[2016-09-02 22:34] LABS: DRAW SITE CENTRAL LINE; FIO2 50 %; OXYGEN DEVICE Venti Mask; STAT NO
[2016-09-02] MEDS ORDERED: VANCOMYCIN INJ 1,000 MG in SODIUM CHLOR 0.9% 250 ML INJ 250 ML IV ONE (22:45)
[2016-09-02] MEDS ORDERED: PIPERACIL-TAZO 3.375 GM PREMIX 50 ML IV ONE (22:45)
--- NOTE | 2016-09-02 23:02 | PD ---
HPI Chief Complaint: Diabetic Time Seen by Provider: 22:16 Travel History International Travel<30 days: No Contact w/Intl Traveler<30days: No Traveled to known affect area: No History of Present Illness HPI 80-year-old male with history of dementia, diabetes, tracheostomy, sent in from [facility] for evaluation of elevated blood sugar. Upon arrival to the emergency department the patient is lying on the stretcher and is awake. He is not able to provide any history. He is tachycardic and diaphoretic and feels warm to the touch. He is in no respiratory distress. PFSH Past Medical History Alzheimer's Disease: Yes Blood Disorders: No Anxiety: No Depression: No Heart Rhythm Problems: No Cancer: No Cardiovascular Problems: No High Cholesterol: No Chest Pain: No Congestive Heart Failure: No Dementia: Yes Diabetes: No Endocrine: No Gastrointestinal Disorders: Yes (constipation, FAILURE TO THRIVE) Genitourinary: Yes (hypertrophy benign) Hypertension: Yes Musculoskeletal: No Neurologic: Yes (AMS, ALZHEIMERS, DEMENTIA, SYNCOPE) Reproductive: No Respiratory: Yes (RESP MRSA) Thyroid Disease: No Past Surgical History Other Surgery: Yes (TRACHEOSTOMY) Social History Alcohol Use: No Tobacco Use: No Substance Use: No Allergies-Medications (Allergen,Severity, Reaction): Coded Allergies: *MDRO Multi-Drug Resistant Organism (Verified Adverse Reaction, Unknown, ) MRSA (sputum) - 06/28/16, 07/12/16, 07/21/16 Reported Meds & Prescriptions Reported Meds & Active Scripts Active Bactrim DS (Sulfamethoxazole-Trimethoprim) 800-160 Mg Tab 1 Tab PEG Q12HR Modafinil 200 Mg Tab 400 Mg PO DAILY Hyoscyamine Sulfate 0.125 Mg Tab 0.125 Mg PEG Q6HR PRN Hydrocodone-Acetaminophen Liq 7.5-325 Mg/15 Ml Soln 15 Ml PO Q6H PRN Famotidine 20 Mg Tab 10 Mg NG BID Review of Systems ROS Limitations: Clinical Condition Physical Exam Narrative GENERAL: Well-developed, cachectic, contracted upper and lower extremities, awake, alert, no apparent distress. SKIN: Diaphoretic. Warm to touch. HEAD: Atraumatic. Normocephalic. EYES: Pupils equal and round. No scleral icterus. No injection or drainage. ENT: Mucous membranes pink and dry. NECK: Trachea midline. No JVD. No nuchal rigidity. Trach collar in place. CARDIOVASCULAR: Tachycardic, regular. RESPIRATORY: No accessory muscle use. Clear to auscultation. Breath sounds equal bilaterally. GASTROINTESTINAL: Abdomen soft, non-tender, nondistended. MUSCULOSKELETAL: Upper and lower extremity contractures. NEUROLOGICAL: Awake and alert. Data Data Last Documented VS Vital Signs Date Time Temp Pulse Resp B/P Pulse Ox O2 Delivery O2 Flow Rate FiO2 09/02/16 22:20 100 Venturi Mask 6 09/02/16 22:20 113 20 09/02/16 22:17 106/57 Orders Complete Blood Count With Diff (09/02/16 22:16) Comprehensive Metabolic Panel (09/02/16 22:16) Prothrombin Time / Inr (Pt) (09/02/16 22:16) Act Partial Throm Time (Ptt) (09/02/16 22:16) Lactic Acid Sepsis Protocol (09/02/16 22:16) Urinalysis - C+S If Indicated (09/02/16 22:16) Influenzae A/B Antigen (09/02/16 22:16) Blood Culture (09/02/16 22:16) Chest, Single Ap (09/02/16 22:16) Blood Glucose (09/02/16 22:16) Ecg Monitoring (09/02/16 22:16) Iv Access Insert/Monitor (09/02/16 22:16) Oximetry (09/02/16 22:16) Oxygen Administration (09/02/16 22:16) Sodium Chlor 0.9% 1000 Ml Inj (Ns 1000 M (09/02/16 22:16) Sodium Chlor 0.9% 1000 Ml Inj (Ns 1000 M (09/02/16 22:16) Beta Hydroxybutyrate (Acetone) (09/02/16 22:20) Blood Gas Venous (Vbg) (09/02/16 22:20) Vancomycin Inj (Vancomycin Inj) (09/02/16 22:45) Piperacil-Tazo 3.375 Gm Premix (Zosyn 3. (09/02/16 22:45) Urinary Catheter Insert/Apply (09/02/16 23:06) Urine Culture (09/02/16 22:30) Labs Laboratory Tests Test 4/15/17 4/15/17 4/15/17 22:24 22:26 22:30 Blood Gas Puncture Site CENTRAL LINE Blood Gas Patient Temperature 98.6 Venous Blood pH 7.35 Venous Blood Partial Pressure 55 mmHg CO2 Venous Blood Partial Pressure 32 mmHg O2 Venous Blood HCO3 30 mmol/L Venous Blood Oxygen Saturation 51 % Venous Blood Oxygen Content 10.5 Vol % Venous Blood Base Excess 4.3 mmol/L Oxygen Delivery Device Venti Mask Blood Gas Inspired Oxygen 50 % Sodium Level 160 MEQ/L Potassium Level 4.9 MEQ/L Chloride Level 123 MEQ/L Carbon Dioxide Level 20.3 MEQ/L Anion Gap 17 MEQ/L Blood Urea Nitrogen 125 MG/DL Creatinine 3.44 MG/DL Estimat Glomerular Filtration 17 ML/MIN Rate Random Glucose 615 MG/DL Calcium Level 9.8 MG/DL Total Bilirubin 0.4 MG/DL Aspartate Amino Transf 166 U/L (AST/SGOT) Alanine Aminotransferase 181 U/L (ALT/SGPT) Alkaline Phosphatase 66 U/L Total Protein 8.5 GM/DL Albumin 3.5 GM/DL White Blood Count 17.6 TH/MM3 Red Blood Count 5.31 MIL/MM3 Hemoglobin 14.7 GM/DL Hematocrit 48.5 % Mean Corpuscular Volume 91.4 FL Mean Corpuscular Hemoglobin 27.6 PG Mean Corpuscular Hemoglobin 30.2 % Concent Red Cell Distribution Width 17.9 % Platelet Count 139 TH/MM3 Mean Platelet Volume 10.7 FL Neutrophils (%) (Auto) 69.9 % Lymphocytes (%) (Auto) 25.0 % Monocytes (%) (Auto) 3.8 % Eosinophils (%) (Auto) 0.5 % Basophils (%) (Auto) 0.8 % Neutrophils # (Auto) 12.3 TH/MM3 Lymphocytes # (Auto) 4.4 TH/MM3 Monocytes # (Auto) 0.7 TH/MM3 Eosinophils # (Auto) 0.1 TH/MM3 Basophils # (Auto) 0.1 TH/MM3 CBC Comment AUTO DIFF Prothrombin Time 11.7 SEC Prothromb Time International 1.1 RATIO Ratio Activated Partial 24.5 SEC Thromboplast Time Urine Color YELLOW Urine Turbidity HAZY Urine pH 5.5 Urine Specific [place] 1.025 Urine Protein 100 mg/dL Urine Glucose (UA) 1000 mg/dL Urine Ketones TRACE mg/dL Urine Occult Blood NEG Urine Nitrite NEG Urine Bilirubin NEG Urine Urobilinogen LESS THAN 2.0 MG/DL Urine Leukocyte Esterase NEG Urine RBC 1 /hpf Urine WBC 1 /hpf Urine Squamous Epithelial 3 /hpf Cells Urine Transitional Epithelial <1 /hpf Cells Urine Amorphous Sediment FEW Urine Bacteria OCC /hpf Urine Hyaline Casts 25 /lpf Urine Mucus FEW /lpf Microscopic Urinalysis Comment CATH-CULTURE IND MDM Medical Decision Making Medical Screen Exam Complete: Yes Emergency Medical Condition: Yes Differential Diagnosis Sepsis, pneumonia, UTI, hyperglycemia, dehydration, DKA Narrative Course Initial vital signs show heart rate 113, blood pressure 106/57, pulse ox 100% on Ventimask, rectal temp of 100.3F. CBC is remarkable for WBC 17.6, otherwise essentially unremarkable. CMP is remarkable for sodium 160, chloride 123, bicarbonate 20.3, BUN 125, creatinine 3.44, GFR 17, random glucose 615, AST 166, ALT 181 UA shows 100 protein, 1000 glucose, trace ketones, occasional bacteria. VBG shows a venous pH of 7.35. Patient was empirically given 2 L of normal saline IV, IV vancomycin, and IV Zosyn shortly after arrival to the emergency department for suspected sepsis. He will be admitted to the ICU for further treatment and evaluation as he is a full code. Case discussed with computer forensic specialist Dr. Morataya who will admit the patient to his service. Critical Care Narrative Aggregate critical care time was 35 minutes. Time to perform other separately billable procedures was not included in the critical care time. My time did not include minutes spent treating any other patients simultaneously or on activities that did not directly contribute to the patient's treatment. The services I provided to this patient were to treat and/or prevent clinically significant deterioration that could result in: , permanent disability, septic shock, multiorgan dysfunction I provided critical care services requiring my management, as noted below: Chart data review, documentation time, medication orders and management, vital sign assessments/reviewing monitor data, ordering and reviewing lab tests, ordering and interpreting/reviewing x-rays and diagnostic studies, care of the patient and discussion of the patient with the admitting physicians. Diagnosis Primary Impression: Severe sepsis with acute organ dysfunction Additional Impressions: Hypernatremia Hyperglycemia Acute renal insufficiency Admitting Information Admitting Physician Requests: Admit Praful Aguayo MD Sep 02, 2016 23:02
[2016-09-02 23:07] LABS: AUTOMATED NEUTROPHIL # 12.3 TH/MM3 (1.8-7.7); BASOPHIL # 0.1 TH/MM3 (0-0.2); BASOPHIL % 0.8 % (0.0-2.0); EOSINOPHIL # 0.1 TH/MM3 (0-0.4); EOSINOPHIL % 0.5 % (0.0-4.0); HEMATOCRIT 48.5 % (39.0-51.0); LYMPHOCYTE # 4.4 TH/MM3 (1.0-4.8); MEAN CELL VOLUME 91.4 FL (80.0-100.0); MEAN CORPUSCULAR HEMOGLOBIN 27.6 PG (27.0-34.0); MEAN CORPUSCULAR HGB CONC 30.2 % (32.0-36.0); MONO % 3.8 % (0.0-8.0); NEUT % 69.9 % (16.0-70.0); PLATELET COUNT 139 TH/MM3 (150-450); RED BLOOD COUNT 5.31 MIL/MM3 (4.50-5.90); RED CELL DISTRIBUTION WIDTH 17.9 % (11.6-17.2); WHITE BLOOD COUNT 17.6 TH/MM3 (4.0-11.0)
[2016-09-02 23:14] LABS: ALKALINE PHOSPHATASE 66 U/L (45-117); ALT (GPT) 181 U/L (12-78); ANION GAP 17 MEQ/L (5-15); AST (GOT) 166 U/L (15-37); BICARBONATE 20.3 MEQ/L (21.0-32.0); BLOOD UREA NITROGEN 125 MG/DL (7-18); CHLORIDE 123 MEQ/L (98-107); GLOMERULAR FILTRATION RATE 17 ML/MIN (>89); POTASSIUM 4.9 MEQ/L (3.5-5.1); TOTAL BILIRUBIN ADULT 0.4 MG/DL (0.2-1.0)
[2016-09-02 23:19] LABS: BACTERIA, URINE OCC /hpf; BLOOD, URINE NEG (NEG); COMMENT (UR) CATH-CULTURE IND; CULTURE IF INDICATED CATH CULTURE IND; GLUCOSE,URINE 1000 mg/dL (NEG); HEMO FLAGS AUTO DIFF; HYALINE CAST, URINE 25 /lpf (RARE); KETONE, URINE TRACE mg/dL (NEG); MUCUS URINE FEW /lpf (OCC); NITRITE,URINE NEG (NEG); PH, URINE 5.5 (5.0-8.5); SQUAMOUS EPITHELIAL CELL URINE 3 /hpf (0-5); TRANSITIONAL EPI CELLS, URINE <1 /hpf; URINE COLOR YELLOW (YELLW/STRAW)
[2016-09-02 23:22] LABS: APTT (PATIENT) 24.5 SEC (24.3-30.1); INTERNATIONAL NORMALIZED RATIO 1.1 RATIO; PROTHROMBIN TIME - PATIENT 11.7 SEC (9.8-11.6)
[2016-09-02 23:23] LABS: SODIUM (NA) 160 MEQ/L (136-145)
--- NOTE | 2016-09-02 23:29 | RADRPT ---
EXAM DATE/TIME: 09/02/2016 22:36 [facility] COMPARISON: CHEST SINGLE AP, August 18, 2016, 1:43. INDICATIONS : Fever. MEDICAL HISTORY : Hypertension. SURGICAL HISTORY : Tracheostomy. ENCOUNTER: Initial ACUITY: 1 day PAIN SCORE: Non-responsive. LOCATION: chest FINDINGS: The cardiac silhouette is enlarged in transverse diameter. A tracheostomy tube is in place in the mid line. The lungs are free of acute parenchymal opacity. No effusions are identified. CONCLUSION: 1. Cardiomegaly. No acute pulmonary disease. Rachid Lopez MD on September 02, 2016 at 23:25 Board Certified Radiologist. This report was verified electronically.
[2016-09-02] MEDS ORDERED: ONDANSETRON HCL 4 MG/2 ML VIAL IV PRN (23:30)
[2016-09-02] MEDS ORDERED: RESP: ALBUTEROL 2.5 MG/IPRATROPIUM 0.5 MG NEB (PRN) INH (23:30)
[2016-09-02] MEDS ORDERED: Vancomycin Consult Pharmacy 1 EA OTHER SCH (23:30)
[2016-09-02] MEDS ORDERED: INSULIN HUMAN REGULAR 1,000 UNITS/10 ML VIAL IV PUSH ONE (23:30)
[2016-09-02] MEDS ORDERED: MISCELLANEOUS NURSING INFORMATION XX SCH (23:30)
[2016-09-02] MEDS ORDERED: MISC INFORMATION XX ONE (23:30)
[2016-09-02] MEDS ORDERED: DEXTROSE 50% IN WATER 50 ML VIAL(D50) IV PUSH PRN (23:30)
[2016-09-02] MEDS ORDERED: CHLORHEXIDINE GLUCONATE 2 % 1 PACK (2 CLOTHS) TOP PRN (23:30)
[2016-09-02] MEDS: SODIUM CHLOR 0.9% 1000 ML INJ 1,000 ML IV SCH (23:30)
[2016-09-02] MEDS ORDERED: SODIUM CHLORIDE 0.9% FLUSH 10 ML FLUSH IV FLUSH PRN (23:30)
[2016-09-02] MEDS ORDERED: INSULIN REGULAR (IV INFUSION) 100 UNITS in SODIUM CHLORIDE 0.9% INJ 99 ML IV SCH (23:30)
--- NOTE | 2016-09-02 23:38 | HHI.HP ---
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 He is well-known to me and I have taken care of him during his 2-month prior ICU admission with us. He has a history if dementia, DM, and chronic respiratory failure requiring tracheostomy. He was sent from the senior care for evaluation of hyperglycemia. However, on evaluation in the ER, he was found to be tachycardic , diaphoretic. He had a serum Na 160, glucose of 600, Cr 3 (baseline around 1), lactate of 3.0, wbc 17. He was febrile as well. CXR appears clear and u/a clean. Unfortunately, the patient is unable to provide any additional history given his chronic medical state. The remainder of the history is based on my prior knowledge of the patient and chart review. I evaluated the patient in the emergency department. Review of Systems ROS Limitations: Clinical Condition, Altered Mental Status, Poor Historian ROS patient has severe end-stage dementia and trach. unable to provide any information or participate in a history. Past Family Social History Allergies: Coded Allergies: *MDRO Multi-Drug Resistant Organism (Verified Adverse Reaction, Unknown, ) MRSA (sputum) - 06/28/16, 07/12/16, 07/21/16 Past Medical History PFSH Past Medical History Alzheimer's Disease: Yes Blood Disorders: No Anxiety: No Depression: No Heart Rhythm Problems: No Cancer: No Cardiovascular Problems: No High Cholesterol: No Chest Pain: No Congestive Heart Failure: No Dementia: Yes Diabetes: No Endocrine: No Gastrointestinal Disorders: Yes (constipation, FAILURE TO THRIVE) Genitourinary: Yes (hypertrophy benign) Hypertension: Yes Musculoskeletal: No Neurologic: Yes (AMS, ALZHEIMERS, DEMENTIA, SYNCOPE) Reproductive: No Respiratory: Yes (RESP MRSA) Thyroid Disease: No Past Surgical History Past Surgical History Other Surgery: Yes (TRACHEOSTOMY) Reported Medications Bactrim DS (Sulfamethoxazole-Trimethoprim) 800-160 Mg Tab 1 Tab PEG Q12HR Modafinil 200 Mg Tab 400 Mg PO DAILY Hyoscyamine Sulfate 0.125 Mg Tab 0.125 Mg PEG Q6HR PRN Hydrocodone-Acetaminophen Liq 7.5-325 Mg/15 Ml Soln 15 Ml PO Q6H PRN Famotidine 20 Mg Tab 10 Mg NG BID Active Ordered Medications See MAR Family History reviewed. noncontributory to his acute illness. Social History no tob, etoh, doa. Physical Exam Vital Signs Vital Signs Date Time Temp Pulse Resp B/P Pulse Ox O2 Delivery O2 Flow Rate FiO2 09/02/16 22:20 100 Venturi Mask 6 09/02/16 22:20 113 20 100 Venturi Mask 6 09/02/16 22:17 113 18 106/57 100 Physical Exam gen: elderly cachectic male, lying in bed. on trach collar heent: NC. AT. PERRL. mucous membranes dry. neck: no jvd. trach in place. site clean. chest: unlabored respirations. equal chest rise. cv: tachycardic rate, regular rhythm. abd: soft, nondistended, nontender. no guarding. extr: no peripheral edema, distal pulses 2+ neuro: does not follow commands. tracks with eyes. withdraws to pain. baseline neurologic exam for patient based on my prior evaluations of the patient. Laboratory Laboratory Tests Test 09/02/16 09/02/16 09/02/16 22:24 22:26 22:30 Blood Gas Puncture Site CENTRAL LINE Blood Gas Patient Temperature 98.6 Venous Blood pH 7.35 Venous Blood Partial Pressure 55 CO2 Venous Blood Partial Pressure 32 O2 Venous Blood HCO3 30 Venous Blood Oxygen Saturation 51 Venous Blood Oxygen Content 10.5 Venous Blood Base Excess 4.3 Oxygen Delivery Device Venti Mask Blood Gas Inspired Oxygen 50 Sodium Level 160 Potassium Level 4.9 Chloride Level 123 Carbon Dioxide Level 20.3 Anion Gap 17 Blood Urea Nitrogen 125 Creatinine 3.44 Estimat Glomerular Filtration 17 Rate Random Glucose 615 Calcium Level 9.8 Total Bilirubin 0.4 Aspartate Amino Transf 166 (AST/SGOT) Alanine Aminotransferase 181 (ALT/SGPT) Alkaline Phosphatase 66 Total Protein 8.5 Albumin 3.5 White Blood Count 17.6 Red Blood Count 5.31 Hemoglobin 14.7 Hematocrit 48.5 Mean Corpuscular Volume 91.4 Mean Corpuscular Hemoglobin 27.6 Mean Corpuscular Hemoglobin 30.2 Concent Red Cell Distribution Width 17.9 Platelet Count 139 Mean Platelet Volume 10.7 Neutrophils (%) (Auto) 69.9 Lymphocytes (%) (Auto) 25.0 Monocytes (%) (Auto) 3.8 Eosinophils (%) (Auto) 0.5 Basophils (%) (Auto) 0.8 Neutrophils # (Auto) 12.3 Lymphocytes # (Auto) 4.4 Monocytes # (Auto) 0.7 Eosinophils # (Auto) 0.1 Basophils # (Auto) 0.1 CBC Comment AUTO DIFF Prothrombin Time 11.7 Prothromb Time International 1.1 Ratio Activated Partial 24.5 Thromboplast Time Urine Color YELLOW Urine Turbidity HAZY Urine pH 5.5 Urine Specific [place] 1.025 Urine Protein 100 Urine Glucose (UA) 1000 Urine Ketones TRACE Urine Occult Blood NEG Urine Nitrite NEG Urine Bilirubin NEG Urine Urobilinogen LESS THAN 2.0 Urine Leukocyte Esterase NEG Urine RBC 1 Urine WBC 1 Urine Squamous Epithelial 3 Cells Urine Transitional Epithelial <1 Cells Urine Amorphous Sediment FEW Urine Bacteria OCC Urine Hyaline Casts 25 Urine Mucus FEW Microscopic Urinalysis Comment CATH-CULTURE IND Lactic Acid Level 3.0 B-Hydroxybutyrate 0.26 Date/Time Procedure Status Source Growth 09/02/16 22:49 Influenza Types A,B Antigen (SELINA) - Final Complete Nasal Washing NEGATIVE FOR FLU A AND B ANTIGEN.... 09/02/16 22:40 Aerobic Blood Culture Received Blood Peripheral Pending 09/02/16 22:40 Anaerobic Blood Culture Received Blood Peripheral Pending 09/02/16 22:30 Urine Culture Received Urine Catheterized Urine Pending Result Diagram: 09/02/16222909/02/162225 Imaging Last Impressions Chest X-Ray 09/02/162215 Signed Impressions: Service Date/Time: Friday, September 02, 2016 22:36 - CONCLUSION: 1. Cardiomegaly. No acute pulmonary disease. Rachid Lopez MD Assessment and Plan Assessment and Plan Assessment: 80yM with end-stage dementia and chronic respiratory failure s/p tracheostomy now with severe dehydration, hypernatremia, acute kidney injury, hyperglycemia. it is unclear at this point whether or not his lactic acidosis, fever, and leukocytosis are secondary to severe sepsis or secondary to severe dehydration. I do not have a clear source for his sepsis at this time. he has not had a change in oxygen requirement, u/a is clean, cxr appears normal, mental status is baseline for patient. We will empirically cover him with broad spectrum antibiotics and carroll culture him. We will rehydrate him and trend electrolytes. Socially, the family has continued in the past to want aggressive medical care despite his end-stage dementia and his multiple end- stage disease processes. This is unlikely to have changed. We will again engage the family and palliative care to help with ongoing family discussions, although I anticipate the patient will remain FULL CODE with aggressive medical measures. Plan by Systems: Neuro: End-stage dementia -- hold long-acting sedating meds -- daily modafinil (started on previous admission to help with alertness, continued as an outpatient) Resp: Chronic Respiratory Insufficiency requiring tracheostomy -- wean o2 for goal spo2 > 90% -- nebs -- hob at 30 degrees CV: Sinus Tachycardia Severe Dehydration Possible severe sepsis -- s/p 2L NS in the ER -- continue NS @ 125cc/hr -- telemetry Renal: Acute Kidney Injury -- likely pre-renal secondary to severe dehydration -- place Mckeon catheter -- strict I/Os -- ivf as above. FEN/GI: Severe Acute Protein Calorie Malnutrition Severe Hypernatremia Hyperchloremia Hyperkalemia Severe Dehydration Lactic Acidosis Anion-Gap metabolic Acidosis -- restart tube feeds, Glucerna 1.5, nutrition consult. -- NS @ 125cc/hr -- free water per tube 300mL q4h to help with hypernatremia, goal to slowly correct. -- serial sodiums to monitor correction -- lactate likely secondary to dehydration, could be component of sepsis. -- daily BMP Heme/ID: Possible Severe Sepsis Leukocytosis Fever -- unknown source: u/a clean. cxr normal. no increased o2 requirement or cough or change in sputum production. neuro exam at baseline. -- symptoms could be secondary to severe dehydration -- Empiric vancomycin with pharmacy dosing, Zosyn 2.25gm iv q8h (renal dose) -- carroll culture -- could likely de-escalate abx therapy after 48h if culture data negative. Endocrine: Severe Hyperglycemia Diabetes -- start insulin drip, high dose. -- q1h accuchecks Prophy: -- scds, SQH, protonix Lines: -- Mckeon -- piv Dispo: -- admit to the ICU for frequent neurologic assessment and monitoring. Code Status FULL CODE. will re-engage palliative care team to help with goals of care discussion. Kannan Morataya MD Sep 02, 2016 23:38
[2016-09-02 23:49] VITALS: BP 103/66; PULSE 98; RESP 22; O2SAT 99
[2016-09-03] VITALS (15 sets, daily range): BP systolic 104–111; BP diastolic 55–65; PULSE 28–109; RESP 9–24; TEMP 98–99; O2SAT 91–100
[2016-09-03 00:04] LABS: SCAN/DIFF AUTO DIFF CONFIRMED
[2016-09-03 00:11] LABS: PLATELET ESTIMATE SMEAR LOW (NORMAL); PLATELET MORPHOLOGY NORMAL (NORMAL)
[2016-09-03] MEDS ORDERED: PROB1CAP12 G-TUBE (00:12)
[2016-09-03 00:55] LABS: LACTIC ACID GHOST NOT REPORTABLE
[2016-09-03] MEDS: RESP: ALBUTEROL 2.5 MG/IPRATROPIUM 0.5 MG NEB (SCH) INH ×4 (03:06→21:09)
[2016-09-03] MEDS: CHLORHEXIDINE GLUCONATE 2 % 1 PACK (2 CLOTHS) TOP SCH (03:13)
[2016-09-03] MEDS: FREE WATER G-TUBE SCH ×6 (04:00→20:00)
[2016-09-03] MEDS: SODIUM CHLOR 0.9% 1000 ML INJ 1,000 ML IV SCH (05:57)
[2016-09-03] MEDS: PIPERACIL-TAZO 2.25 GM PREMIX 50 ML IV SCH ×2 (06:58→15:28)
[2016-09-03 07:06] LABS: BICARBONATE 20.8 MEQ/L (21.0-32.0); POTASSIUM 4.5 MEQ/L (3.5-5.1)
[2016-09-03 07:23] LABS: HEMATOCRIT 41.7 % (39.0-51.0); MEAN CELL VOLUME 88.1 FL (80.0-100.0); MEAN CORPUSCULAR HEMOGLOBIN 28.4 PG (27.0-34.0); MEAN CORPUSCULAR HGB CONC 32.2 % (32.0-36.0); PLATELET COUNT 95 TH/MM3 (150-450); RED BLOOD COUNT 4.73 MIL/MM3 (4.50-5.90); RED CELL DISTRIBUTION WIDTH 17.5 % (11.6-17.2); WHITE BLOOD COUNT 17.1 TH/MM3 (4.0-11.0)
[2016-09-03 07:25] LABS: REVIEW FLAG FINAL
[2016-09-03] MEDS ORDERED: GLUCAGON 1 MG/ML VIAL OTHER PRN (07:45)
[2016-09-03] MEDS ORDERED: DEXTROSE 50% IN WATER 50 ML VIAL(D50) IV PUSH PRN (07:45)
[2016-09-03] MEDS: SODIUM CHLORIDE 23.4% INJ 38.5 MEQ in WATER STERILE FOR INJ 1,000 ML IV SCH ×3 (08:46→23:55)
[2016-09-03] MEDS: DOCUSATE SODIUM 50 MG/SENNA 8.6 MG TAB PO SCH ×2 (08:47→20:21)
[2016-09-03] MEDS: SODIUM CHLORIDE 0.9% FLUSH 10 ML FLUSH IV FLUSH SCH ×2 (08:47→20:22)
[2016-09-03] MEDS ORDERED: PANTOPRAZOLE SOD 40 MG DELAYED RELEASE TAB PO SCH (09:00)
--- NOTE | 2016-09-03 09:15 | HHI.CCPN ---
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 He is well-known to me and I have taken care of him during his 2-month prior ICU admission with us. He has a history if dementia, DM, and chronic respiratory failure requiring tracheostomy. He was sent from the long term for evaluation of hyperglycemia. However, on evaluation in the ER, he was found to be tachycardic , diaphoretic. He had a serum Na 160, glucose of 600, Cr 3 (baseline around 1), lactate of 3.0, wbc 17. He was febrile as well. CXR appears clear and u/a clean. Unfortunately, the patient is unable to provide any additional history given his chronic medical state. The remainder of the history is based on my prior knowledge of the patient and chart review. I evaluated the patient in the emergency department. Subjective 09/03: Afebrile. On T piece. No acute issues overnight. Creatinine slowly correcting. Objective Vital Signs Date Time Temp Pulse Resp B/P Pulse Ox O2 Delivery O2 Flow Rate FiO2 09/03/16 06:00 97 09/03/16 01:00 98 T-piece 28 09/03/16 00:52 98.3 24 104/61 09/02/16 22:20 6 Result Diagram: 09/03/16 0542 09/03/16 0542 Other Results Microbiology Date/Time Procedure Status Source Growth 09/03/16 01:00 Gram Stain - Final Resulted Sputum Endotracheal 09/03/16 01:00 Sputum Culture Resulted Sputum Endotracheal Pending 09/02/16 22:49 Influenza Types A,B Antigen (SELINA) - Final Complete Nasal Washing NEGATIVE FOR FLU A AND B ANTIGEN.... 09/02/16 22:40 Aerobic Blood Culture Received Blood Peripheral Pending 09/02/16 22:40 Anaerobic Blood Culture Received Blood Peripheral Pending 09/02/16 22:30 Urine Culture Received Urine Catheterized Urine Pending Imaging Last Impressions Chest X-Ray 09/02/162215 Signed Impressions: Service Date/Time: Friday, September 02, 2016 22:36 - CONCLUSION: 1. Cardiomegaly. No acute pulmonary disease. Rachid Lopez MD Objective Remarks GENERAL: 80 yo male patient, critically ill, currently on T piece HEAD: Normocephalic. EYES: PERRL. No scleral icterus. No scleral edema. Some drainage from right eye. NECK: Supple, trachea midline. No JVD. tracheostomy in place without erythema or bleeding. CARDIOVASCULAR: RRR. S1, S2. No S4. No murmur RESPIRATORY: Transmitted upper airway sounds clear with suctioning tracheostomy. Few crackles appreciated in the bases bilaterally. Symmetrical excursion. GASTROINTESTINAL: Abdomen soft, non-tender, nondistended. PEG tube is in place above the umbilicus very little erythema. MUSCULOSKELETAL: contracted bilateral upper and lower extremity.. With trace nonpitting peripheral upper and lower extremity edema. : No scrotal edema. Neuro: Opens eyes spontaneously. does not follow commands. extends LUE, withdraws x 3. Skin: Stage I decubitus ulcer coccyx 2 cm x 2 cm and open blister over her left heel about 1 x 1 cm A/P Assessment and Plan NEUROLOGY/PSYCH Alzheimer's dementia Hypoactive delirium Depression/anxiety -Acetaminophen for fever/Dilaudid as needed for pain management. -Monitor neuro status. -Continue Provigil 400 mg daily in attempt increased alertness. Note has been on this since 06/25/16 with minimal improvement --Limit sedation if possible PULMONARY VDRF --Continue T piece as tolerated -HOB at 30 degrees -s/p #8 Shiley percutaneous trach 06/13. (Dr. Morataya/Dr. Dai). Downsized to a # 6 Johana DFEN 08/05 -Duonebs q6h and q2h prn. CARDIOVASCULAR History of Hypertension -Currently not requiring antihypertensives and/or vasopressors. -Telemetry will be continued -continue free water to 300cc q4hr. with one quarter normal saline at 125 cc an hour GASTROENTEROLOGY Failure to thrive Gastroesophageal reflux disease Severe acute protein calorie malnutrition- severe Hypo-albuminemia Elevated transaminases -TF to goal as tolerated with Glucerna 1.5 goal of 50 cc an hour -On Pepcid.for GI prophylaxis -PeriColace twice a day for bowel regimen RENAL//FEN: BPH Acute kidney injury Hypernatremia Hyperchloridemia -Continue to Monitor renal function, Currently on a hypotonic crystalloid replacement every 6 hours sodiums. -electrolytes replacement per protocol. Check urine electrolytes and eosinophils. Renal/abdominal ultrasound pending INFECTION DISEASE History of E. Cloacae UTI History of MRSA in sputum, colonized History of Klebsiella in sputum, colonized Funguria with history of tropicalis and glabrata Currently on Zosyn/vancomycin broad-spectrum antibiotics. -Continue on Bactrim suppression treatment. When indicated Pertinent cultures 06/04 - urine - E. Cloacae 06/16 - sputum - Alla Tropicalis 06/27 blood - Staph Epi (1/2 bottles) 06/28 urine - alla glabrata 06/28 sputum - Klebsiella (intermediate to zosyn), MRSA 07/12 sputum - MRSA 07/18 sputum - MRSA, Klebsiella 07/21 sputum -MRSA, Klebsiella 07/21 blood -no growth for 2 days 07/21 urine -Alla glabrata 09/02 - blood cultures 2 - no growth 09/02 - urine - no growth Influenza negative. Sputum pending HEMATOLOGY History of Normocytic anemia Leukocytosis Thrombocytopenia -Currently no indication for transfusion of blood proximally at this time -Hemoccult stool was negative -Transfuse if hemoglobin below 7. ENDOCRINOLOGY: Hyperglycemia of critical illness -Accu-Cheks with sliding scale insulin with Accu-Cheks every 4 hours to maintain euglycemia PROPHYLAXIS -GI prophylaxis-Pepcid q24 -DVT prevention: SCDs. SQH 5000 q12hr SKIN Left heel blister Sacral decubitus ulcer stage I -Continue Multi-Podus boots, wound care following - Continue wrist splints alternating sides daily LINES -PIVs level 2 German Marinelli MD Sep 03, 2016 09:15
[2016-09-03] MEDS: INSULIN NovoLIN REGULAR SUPPLEMENTAL SCALE SQ SCH ×4 (09:21→20:22)
[2016-09-03] MEDS: MODAFINIL 200 MG TAB PO SCH (09:56)
[2016-09-03] MEDS: HEPARIN SODIUM - SQ 10,000 UNITS/ML VIAL SQ SCH ×3 (12:00→12:29)
[2016-09-03] MEDS ORDERED: INSULIN HUMAN REGULAR 1,000 UNITS/10 ML VIAL SQ ONE (17:45)
[2016-09-03] MEDS: INSULIN DETEMIR 100 UNITS/ML VIAL SQ SCH (20:22)
--- NOTE | 2016-09-03 21:53 | RADRPT ---
EXAM DATE/TIME: 09/03/2016 15:21 [facility] COMPARISON: No previous studies available for comparison. INDICATIONS : Elevated liver function and BUN and Creatinine. MEDICAL HISTORY : Alzheimer's Dementia. Diabetes. Failure to thrive. Severe contractures. SURGICAL HISTORY : Tracheostomy. G-tube. ENCOUNTER: Initial ACUITY: 1 day PAIN SCORE: Nonresponsive. LOCATION: Bilateral upper quadrant MEASUREMENTS: LIVER: 14.6 cm length COMMON DUCT: Non-visualized RIGHT KIDNEY: 9.9 x 5.2 x 4.5 cm LEFT KIDNEY: 10.1 x 4.8 x 5.6 cm SPLEEN: 10.7 cm length AORTA: 2.3cm maximal FINDINGS: Pancreas not well-visualized due to overlying bowel gas. No significant abnormality in the liver, gal lbladder, right kidney, left kidney spleen and aorta and IVC. Common bile duct not visualized. Portal venous flow direction is normal. CONCLUSION: 1. No acute findings. Exam somewhat limited by overlying bowel gas. Mina Varghese MD on September 03, 2016 at 21:51 Board Certified Radiologist. This report was verified electronically.
[2016-09-04] VITALS (14 sets, daily range): BP systolic 105–119; BP diastolic 52–63; PULSE 85–146; RESP 20–28; TEMP 98.4–100; O2SAT 95–100
[2016-09-04] MEDS: PIPERACIL-TAZO 2.25 GM PREMIX 50 ML IV SCH ×4 (00:06→23:21)
[2016-09-04] MEDS: SODIUM CHLORIDE 23.4% INJ 38.5 MEQ in WATER STERILE FOR INJ 1,000 ML IV SCH ×3 (01:17→20:20)
[2016-09-04] MEDS: RESP: ALBUTEROL 2.5 MG/IPRATROPIUM 0.5 MG NEB (SCH) INH ×4 (03:14→21:03)
[2016-09-04] MEDS: FREE WATER G-TUBE SCH ×7 (04:00→23:05)
[2016-09-04] MEDS: CHLORHEXIDINE GLUCONATE 2 % 1 PACK (2 CLOTHS) TOP SCH (04:00)
[2016-09-04] MEDS: INSULIN NovoLIN REGULAR SUPPLEMENTAL SCALE SQ SCH ×7 (04:15→23:07)
[2016-09-04 05:58] LABS: BASOPHIL % 0.4 % (0.0-2.0); EOSINOPHIL # 0.3 TH/MM3 (0-0.4); EOSINOPHIL % 3.4 % (0.0-4.0); HEMATOCRIT 31.6 % (39.0-51.0); LYMPH % 22.4 % (9.0-44.0); LYMPHOCYTE # 1.9 TH/MM3 (1.0-4.8); MEAN CELL VOLUME 89.3 FL (80.0-100.0); MEAN CORPUSCULAR HEMOGLOBIN 27.9 PG (27.0-34.0); MEAN CORPUSCULAR HGB CONC 31.3 % (32.0-36.0); MONO % 3.6 % (0.0-8.0); NEUT % 70.2 % (16.0-70.0); PLATELET COUNT 72 TH/MM3 (150-450); RED BLOOD COUNT 3.54 MIL/MM3 (4.50-5.90); RED CELL DISTRIBUTION WIDTH 17.7 % (11.6-17.2); WHITE BLOOD COUNT 8.6 TH/MM3 (4.0-11.0)
[2016-09-04 06:03] LABS: HEMO FLAGS AUTO DIFF
[2016-09-04 06:12] LABS: ALKALINE PHOSPHATASE 73 U/L (45-117); ALT (GPT) 102 U/L (12-78); ANION GAP 11 MEQ/L (5-15); AST (GOT) 114 U/L (15-37); BICARBONATE 20.9 MEQ/L (21.0-32.0); BLOOD UREA NITROGEN 61 MG/DL (7-18); CHLORIDE 126 MEQ/L (98-107); GLOMERULAR FILTRATION RATE 33 ML/MIN (>89); MAGNESIUM 3.3 MG/DL (1.5-2.5); POTASSIUM 3.4 MEQ/L (3.5-5.1)
[2016-09-04 06:15] LABS: SODIUM (NA) 158 MEQ/L (136-145)
[2016-09-04 08:03] LABS: BANDS 5 % (0-6); EOSINOPHILS 1 % (0-4); MYELOCYTES 1 % (0-0); NEUTROPHIL # MANUAL DIFF 7.1 TH/MM3 (1.8-7.7); POLYS (SEG NEUTROPHILS) 77 % (16-70); WBC DIFF SAMPLE 100
[2016-09-04 08:05] LABS: PLATELET ESTIMATE SMEAR LOW (NORMAL); PLATELET MORPHOLOGY NORMAL (NORMAL); SCAN/DIFF FINAL DIFF MANUAL
[2016-09-04] MEDS: INSULIN DETEMIR 100 UNITS/ML VIAL SQ SCH ×2 (08:21→20:16)
[2016-09-04] MEDS: MODAFINIL 200 MG TAB PO SCH (08:22)
[2016-09-04] MEDS: FAMOTIDINE 20 MG TAB NG SCH (08:22)
[2016-09-04] MEDS: DOCUSATE SODIUM 50 MG/SENNA 8.6 MG TAB PO SCH ×2 (08:22→20:05)
[2016-09-04] MEDS: SODIUM CHLORIDE 0.9% FLUSH 10 ML FLUSH IV FLUSH SCH ×2 (08:22→20:05)
[2016-09-04] MEDS ORDERED: VANCOMYCIN 1,000 MG/NS 250 ML IV ONE ×2 (09:00)
--- NOTE | 2016-09-04 09:08 | HHI.CCPN ---
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 He is well-known to me and I have taken care of him during his 2-month prior ICU admission with us. He has a history if dementia, DM, and chronic respiratory failure requiring tracheostomy. He was sent from the assisted for evaluation of hyperglycemia. However, on evaluation in the ER, he was found to be tachycardic , diaphoretic. He had a serum Na 160, glucose of 600, Cr 3 (baseline around 1), lactate of 3.0, wbc 17. He was febrile as well. CXR appears clear and u/a clean. Unfortunately, the patient is unable to provide any additional history given his chronic medical state. The remainder of the history is based on my prior knowledge of the patient and chart review. I evaluated the patient in the emergency department. 09/03: Afebrile. On T piece. No acute issues overnight. Creatinine slowly correcting. Subjective 09/04: Currently resting in bed at baseline neurologic valladares. Creatinine slowly correcting. Sodium slowly correcting. Positive BM. Afebrile. Objective Vital Signs Date Time Temp Pulse Resp B/P Pulse Ox O2 Delivery O2 Flow Rate FiO2 09/04/16 06:00 93 09/04/16 04:00 99.8 21 116/58 100 09/03/16 21:09 Trach Collar 21 09/03/16 09:15 6.00 Intake and Output 09/03/16 09/03/16 09/04/16 08:00 16:00 00:00 Intake Total 714 ml 1325 ml 1007 ml Output Total 575 ml 380 ml 325 ml Balance 139 ml 945 ml 682 ml Result Diagram: 09/04/16 0540 09/04/16 0540 Other Results Microbiology Date/Time Procedure Status Source Growth 09/03/16 01:00 Gram Stain - Final Resulted Sputum Endotracheal 09/03/16 01:00 Sputum Culture Resulted Sputum Endotracheal Pending 09/02/16 22:49 Influenza Types A,B Antigen (SELINA) - Final Complete Nasal Washing NEGATIVE FOR FLU A AND B ANTIGEN.... 09/02/16 22:40 Aerobic Blood Culture - Preliminary Resulted Blood Peripheral NO GROWTH IN 1 DAY 09/02/16 22:40 Anaerobic Blood Culture - Preliminary Resulted Blood Peripheral NO GROWTH IN 1 DAY 09/02/16 22:30 Urine Culture - Preliminary Resulted Urine Catheterized Urine Gram Negative [facility] Last Impressions Abdomen Ultrasound 09/03/16 0000 Signed Impressions: Service Date/Time: Saturday, September 03, 2016 15:21 - CONCLUSION: 1. No acute findings. Exam somewhat limited by overlying bowel gas. Mina Varghese MD Chest X-Ray 09/02/16 2216 Signed Impressions: Service Date/Time: Friday, September 02, 2016 22:36 - CONCLUSION: 1. Cardiomegaly. No acute pulmonary disease. Rachid Lopez MD Objective Remarks GENERAL: 80 yo male patient, critically ill, currently on T piece HEAD: Normocephalic. EYES: PERRL. No scleral icterus. No scleral edema. Some drainage from right eye. NECK: Supple, trachea midline. No JVD. tracheostomy in place without erythema or bleeding. CARDIOVASCULAR: RRR. S1, S2. No S4. No murmur RESPIRATORY: Transmitted upper airway sounds clear with suctioning tracheostomy. Few crackles appreciated in the bases bilaterally. Symmetrical excursion. GASTROINTESTINAL: Abdomen soft, non-tender, nondistended. PEG tube is in place above the umbilicus very little erythema. MUSCULOSKELETAL: contracted bilateral upper and lower extremity.. With trace nonpitting peripheral upper and lower extremity edema. : No scrotal edema. Neuro: Opens eyes spontaneously. does not follow commands. extends LUE, withdraws x 3. Skin: Stage I decubitus ulcer coccyx 2 cm x 2 cm and healing ulcer left heel A/P Assessment and Plan NEUROLOGY/PSYCH Alzheimer's dementia Hypoactive delirium Depression/anxiety -Acetaminophen for fever/Dilaudid as needed for pain management. -Monitor neuro status. -Continue Provigil 400 mg daily in attempt increased alertness. Note has been on this since 06/25/16 with minimal improvement --Limit sedation if possible PULMONARY VDRF --Continue T piece as tolerated -HOB at 30 degrees -s/p #8 Johana percutaneous trach 06/13. (Dr. Morataya/Dr. Dai). Downsized to a # 6 Johana DFEN 08/05 -Duonebs q6h and q2h prn. CARDIOVASCULAR History of Hypertension -Currently not requiring antihypertensives and/or vasopressors. -Telemetry will be continued -continue free water to 300cc q4hr. with one quarter normal saline at 125 cc an hour GASTROENTEROLOGY Failure to thrive Gastroesophageal reflux disease Severe acute protein calorie malnutrition- severe Hypo-albuminemia Elevated transaminases -TF to goal as tolerated with Glucerna 1.5 goal of 50 cc an hour -On Pepcid.for GI prophylaxis -PeriColace twice a day for bowel regimen RENAL//FEN: BPH Acute kidney injury Hypernatremia Hyperchloridemia -Continue to Monitor renal function, Currently on a hypotonic crystalloid replacement. Replace electrolytes as clinically indicated Renal/abdominal ultrasound revealed no hydronephrosis. INFECTION DISEASE History of E. Cloacae UTI History of MRSA in sputum, colonized History of Klebsiella in sputum, colonized Funguria with history of tropicalis and glabrata Currently on Zosyn day #2/vancomycin discontinued 10/04 broad-spectrum antibiotics. -Continue on Bactrim suppression treatment once creatinine normalizes Pertinent cultures 06/04 - urine - E. Cloacae 06/16 - sputum - Alla Tropicalis 06/27 blood - Staph Epi (1/2 bottles) 06/28 urine - alla glabrata 06/28 sputum - Klebsiella (intermediate to zosyn), MRSA 07/12 sputum - MRSA 07/18 sputum - MRSA, Klebsiella 07/21 sputum -MRSA, Klebsiella 07/21 blood -no growth for 2 days 07/21 urine -Alla glabrata 09/02 - blood cultures 2 - no growth 09/02 - urine -gram-negative wesley Influenza negative. Sputum negative HEMATOLOGY History of Normocytic anemia Leukocytosis Thrombocytopenia -Currently no indication for transfusion of blood proximally at this time -Hemoccult stool was negative -Transfuse if hemoglobin below 7. ENDOCRINOLOGY: Hyperglycemia of critical illness -Accu-Cheks with sliding scale insulin with Accu-Cheks every 4 hours to maintain euglycemia PROPHYLAXIS -GI prophylaxis-Pepcid q24 -DVT prevention: SCDs. SQH 5000 q12hr SKIN Left heel blister Sacral decubitus ulcer stage I -Continue Multi-Podus boots, wound care following - Continue wrist splints alternating sides daily Wound care evaluate and treat LINES -PIVs level 2 German Marinelli MD Sep 04, 2016 09:08
[2016-09-04] MEDS ORDERED: POTASSIUM CHLORIDE 20 MEQ PWD PACKET PO ONE (09:15)
--- NOTE | 2016-09-04 11:29 | PD.CONS ---
Consult Service Palliative Care . Consult Requested By Dr. Morataya . Primary Care Physician Non-Staff . Reason for Consultation a. To assist with evaluation and management of symptoms including:dyspnea, debility, pain. b. To assist medical decision maker(s) with: better understanding of current medical conditions; weighing benefits/burdens of medical treatment options; making medical treatment decisions. . HPI History of Present Illness Mr. Amin is an 81-year-old male with past medical history significant for severe Alzheimer's dementia, anxiety, BPH, hypertension, GERD. He is bedbound and nonverbal at baseline. Patient was previously admitted to [facility] from 06/04/16 08/15/16 for severe sepsis, UTI, respiratory failure, during this admission he underwent tracheostomy and PEG tube placement. Palliative care service was consulted during the prolonged admission May through July, goals remained aggressive. Patient was discharged to [facility]. He has had to emergency room visits since discharge for respiratory distress and altered mental status. Patient presented to [facility] Emergency department again on 09/02/16 for evaluation of elevated blood sugar. Upon arrival to the emergency department the patient was awake, unable to provide history. He was tachycardic and diaphoretic without respiratory distress. Additional findings included: * VS: pulse 113, respiration 20, BP 106/57, oxygen saturation 100% on Venturi mask 6 L * sodium 160, potassium 4.9, chloride 123, carbon dioxide 20.3, BUN 125, creatinine 3.44, GFR 17, glucose 615, calcium 9.8 * total bilirubin 0.4, AST 166, ALT 181, alkaline phosphatase 66 * total protein 8.5, albumin 3.5 * WBC 17.6, hemoglobin's 14.7, hematocrit 48.5, platelet count 139, neutrophils 69.9% * PT 11.7, INR 1.1, PTT 24.5 * urinalysis positive bacteria and mucus, culture indicated * nasal washing negative flu A and B * chest x-ray cardiomegaly, no acute pulmonary disease Patient was admitted to ICU with sepsis, uncertain etiology, hyperglycemia and hypernatremia. Patient was started empirically on broad-spectrum antibiotics. 09/02/16, preliminary urine culture gram-negative rods and preliminary blood culture gram-positive cocci. 09/03/16, sputum culture pending. Abdomen ultrasound no acute findings. 4/17/17, WBC has normalized to 8.6, hemoglobin 9.9, hematocrit 31.6, platelets 72. Since admission patient's creatinine and sodium are slowly correcting, sodium 158, creatinine 1.96. Palliative care was consulted to assist with communication, further clarification of treatment goals and to assist with symptom management. . Function/Cognitive Trajectory Patient has been residing in SNF for the past 4 years secondary to severe dementia. He has continued to decline and is currently bedbound, non-verbal at baseline. PEG tube was placed in November 2014 secondary to dysphagia, pt has continued loosing weight since. Son previously reported that prior to PEG placement, patient was bed to wheelchair existence but after November 2014, patient has been totally bedbound and fully dependent of care. . Review of Systems Constitutional: COMPLAINS OF: Fatigue, Weight loss, Generalized weakness Respiratory: COMPLAINS OF: Shortness of breath Gastrointestinal: COMPLAINS OF: Constipation Musculoskeletal: COMPLAINS OF: Stiffness (bilateral lower extremity contractures), Decreased range of motion Hematologic/Lymphatics: COMPLAINS OF: Bruising Other ROS: Patient with end-stage dementia, unable to provide ROS, respiratory family and EMR review. Past Family Social History Coded Allergies: *MDRO Multi-Drug Resistant Organism (Verified Adverse Reaction, Unknown, ) MRSA (sputum) - 06/28/16, 07/12/16, 07/21/16 MRSA PCR Screen POSITIVE - 09/03/2016 Past Medical History Alzheimer's dementia Anxiety Hypertension Chronic respiratory failure status post trach Failure to thrive status post PEG tube placement November 2014 Contractures bilateral lower extremities Constipation BPH Syncope GERD . Past Surgical History Tracheostomy PEG tube Reported Medications Reported Meds & Active Scripts Active Bactrim DS (Sulfamethoxazole-Trimethoprim) 800-160 Mg Tab 1 Tab PEG Q12HR Modafinil 200 Mg Tab 400 Mg PO DAILY Hyoscyamine Sulfate 0.125 Mg Tab 0.125 Mg PEG Q6HR PRN Hydrocodone-Acetaminophen Liq 7.5-325 Mg/15 Ml Soln 15 Ml PO Q6H PRN Famotidine 20 Mg Tab 10 Mg NG BID . Current Medications Medications (Trade) Dose Ordered Sig/Estefany Route Start Time Stop Time Status Last Admin Water 300 ml 300 ml Q4HR G-TUBE 09/03/16 00:00 09/04/16 08:00 (Zosyn 2.25 Gm Premix) 50 ml @ 100 mls/hr Q8H IV 09/03/16 07:00 09/04/16 07:47 (NS Flush) 2 ml UNSCH PRN IV FLUSH 09/02/16 23:30 (NS Flush) 2 ml BID IV FLUSH 09/03/16 09:00 09/04/16 08:22 (Tylenol) 650 mg Q6H PRN PO 09/02/16 23:30 (Zofran Inj) 4 mg Q6H PRN IV 09/02/16 23:30 (Ashley-Colace) 2 tab BID PO 09/03/16 09:00 09/04/16 08:22 (Heparin Inj) 5,000 units Q12H SQ 09/03/16 00:00 09/04/16 00:00 Miscellaneous Information 1 Q361D XX 09/02/16 23:30 (Chlorhexidine 2% Cloth) 3 pack Taper DAILY@04 TOP 09/03/16 04:00 08/30/17 03:59 09/04/16 04:00 (Chlorhexidine 2% Cloth) 3 pack UNSCH PRN TOP 09/02/16 23:30 (Provigil) 400 mg DAILY PO 09/03/16 09:00 09/04/16 08:22 (D50w (Vial) Inj) 25 ml UNSCH PRN IV PUSH 09/03/16 07:45 (Glucagon Inj) 1 mg UNSCH PRN OTHER 09/03/16 07:45 Insulin Human Regular 1 1 Q4HR SQ 09/03/16 08:00 09/04/16 08:21 (Sodium Chloride 23.4% Inj/Sterile Water For Inj) 1,009.625 ml @ 125 mls/hr Q8H5M IV 09/03/16 07:45 09/04/16 01:17 (Dilaudid Pf Inj) 0.5 mg Q4H PRN IV PUSH 09/03/16 09:30 (Pepcid) 20 mg DAILY NG 09/04/16 09:00 09/04/16 08:22 (K-Phos Neutral) 250 mg Q6HR PEG 09/04/16 12:00 09/05/16 06:01 (Levemir Inj) 15 units Q12HR SQ 09/04/16 21:00 . Family History 2 sons who are alive and well. Family unable to provide additional health history. . Substance Use Tobacco: none. Alcohol: none. Prescription med abuse: none. Illicits: none. . Psychosocial History Resident of [facility] for the past 4 years. to [place] for over 50 years. Has 2 sons; Winifred and Milan. 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 Moved to [place] in 1992. . Spiritual/Cultural Factors Not spiritual. . Living Will: Never completed Health Care Surrogate: Never completed Durable Power of Forward Air Controller/Air Officer: Never completed Health Care Surrogate(s): Patient is incapacitated, will not regain capacity. According to [place] statutes, health care proxy decision-making falls to the patient's spouse. On previous admission the patient's would not make any decisions without the involvement of her sons. . Family/friends goals: Spoke with son via telephone, goals remain aggressive at this time. . Ethical and Legal Issues No written advance directives. Patient is incapacitated, will not regain capacity. According to [place] statutes, health care proxy decision-making falls to the patient's spouse. On previous admission the patient's would not make any decisions without the involvement of her sons. . Physical Exam Vital Signs Date Time Temp Pulse Resp B/P Pulse Ox O2 Delivery O2 Flow Rate FiO2 09/04/16 09:02 97 T-piece 5.00 21 09/04/16 06:00 93 09/04/16 04:00 99.8 104 21 116/58 100 09/04/16 04:00 146 09/04/16 02:00 99 09/04/16 00:00 97 09/04/16 00:00 98.4 97 20 119/58 96 09/03/16 22:00 99 09/03/16 21:09 98 Trach Collar 21 09/03/16 20:00 99.0 96 19 111/62 96 09/03/16 20:00 96 09/03/16 18:00 97 09/03/16 16:00 98.1 100 19 109/65 100 09/03/16 16:00 100 09/03/16 14:00 88 09/03/16 12:00 89 09/03/16 12:00 98.0 89 16 108/56 91 09/03/16 09/04/16 19:00 07:00 Intake Total 1325 ml 2800 ml Output Total 380 ml 775 ml Balance 945 ml 2025 ml Intake IV Total 725 ml 1745 ml Tube Feeding 455 ml Other 600 ml 600 ml Output Urine Total 380 ml 775 ml # Bowel Movements 1 2 Exam CONSTITUTIONAL/GENERAL: This is an elderly, frail patient, in no apparent distress. TUBES/LINES/DRAINS: trach to t-piece, PEG tube, PIV LUE, Mckeon, rectal bag, SCDs , multipodus boots. SKIN: No jaundice, rashes, or lesions. Ecchymoses on upper extremities. Wound reported on coccyx, not visualized today. Diaphoretic, febrile. HEAD: Atraumatic. Normocephalic. EYES: Eyes closed. ENT: Unable to assess hearing. Nose without bleeding or purulent drainage. Mouth closed. NECK: Tracheostomy to t-piece oxygen. CARDIOVASCULAR: Tachycardic. RESPIRATORY/CHEST: Symmetric, unlabored respirations. Scattered crackles bilateral. GASTROINTESTINAL: PEG tube, dried blood noted to left of PEG site. Abdomen soft , nondistended. Bowel sounds present. GENITOURINARY: Without palpable bladder distension. Mckeon catheter in place. MUSCULOSKELETAL: Extremities with bilateral LE contractures. + edema. LYMPHATICS: No palpable cervical or supraclavicular adenopathy. NEUROLOGICAL: Does not arouse to voice or exam. Does not follow commands. Grimaces to noxious stimuli. PSYCHIATRIC: Does not arouse to voice or exam. . Diagnostic Tests Laboratory Laboratory Tests Test 09/02/16 09/02/16 09/02/16 09/03/16 22:24 22:26 22:30 01:00 Blood Gas Puncture Site CENTRAL LINE Blood Gas Patient Temperature 98.6 Venous Blood pH 7.35 (7.360-7.400) Venous Blood Partial Pressure 55 mmHg (44-48) CO2 Venous Blood Partial Pressure 32 mmHg (35-40) O2 Venous Blood HCO3 30 mmol/L (22-26) Venous Blood Oxygen Saturation 51 % (70-76) Venous Blood Oxygen Content 10.5 Vol % (9.0-17.0) Venous Blood Base Excess 4.3 mmol/L (-2-2) Oxygen Delivery Device Venti Mask Blood Gas Inspired Oxygen 50 % Sodium Level 160 MEQ/L (136-145) Potassium Level 4.9 MEQ/L (3.5-5.1) Chloride Level 123 MEQ/L (98-107) Carbon Dioxide Level 20.3 MEQ/L (21.0-32.0) Anion Gap 17 MEQ/L (5-15) Blood Urea Nitrogen 125 MG/DL (7-18) Creatinine 3.44 MG/DL (0.60-1.30) Estimat Glomerular Filtration 17 ML/MIN (>89) Rate Random Glucose 615 MG/DL (74-106) Calcium Level 9.8 MG/DL (8.5-10.1) Total Bilirubin 0.4 MG/DL (0.2-1.0) Aspartate Amino Transf 166 U/L (15-37) (AST/SGOT) Alanine Aminotransferase 181 U/L (12-78) (ALT/SGPT) Alkaline Phosphatase 66 U/L (45-117) Total Protein 8.5 GM/DL (6.4-8.2) Albumin 3.5 GM/DL (3.4-5.0) Prothrombin Time 11.7 SEC (9.8-11.6) Prothromb Time International 1.1 RATIO Ratio Activated Partial 24.5 SEC Thromboplast Time (24.3-30.1) B-Hydroxybutyrate 0.26 MMOL/L (0.00-0.39) White Blood Count 17.6 TH/MM3 (4.0-11.0) Red Blood Count 5.31 MIL/MM3 (4.50-5.90) Hemoglobin 14.7 GM/DL (13.0-17.0) Hematocrit 48.5 % (39.0-51.0) Mean Corpuscular Volume 91.4 FL (80.0-100.0) Mean Corpuscular Hemoglobin 27.6 PG (27.0-34.0) Mean Corpuscular Hemoglobin 30.2 % Concent (32.0-36.0) Red Cell Distribution Width 17.9 % (11.6-17.2) Platelet Count 139 TH/MM3 (150-450) Mean Platelet Volume 10.7 FL (7.0-11.0) Neutrophils (%) (Auto) 69.9 % (16.0-70.0) Lymphocytes (%) (Auto) 25.0 % (9.0-44.0) Monocytes (%) (Auto) 3.8 % (0.0-8.0) Eosinophils (%) (Auto) 0.5 % (0.0-4.0) Basophils (%) (Auto) 0.8 % (0.0-2.0) Neutrophils # (Auto) 12.3 TH/MM3 (1.8-7.7) Lymphocytes # (Auto) 4.4 TH/MM3 (1.0-4.8) Monocytes # (Auto) 0.7 TH/MM3 (0-0.9) Eosinophils # (Auto) 0.1 TH/MM3 (0-0.4) Basophils # (Auto) 0.1 TH/MM3 (0-0.2) CBC Comment AUTO DIFF Differential Comment AUTO DIFF CONFIRMED Platelet Estimate LOW (NORMAL) Platelet Morphology Comment NORMAL (NORMAL) Urine Color YELLOW (YELLW/STRAW) Urine Turbidity HAZY (CLEAR) Urine pH 5.5 (5.0-8.5) Urine Specific Ramey 1.025 (1.002-1.035) Urine Protein 100 mg/dL (NEG-TRACE) Urine Glucose (UA) 1000 mg/dL (NEG) Urine Ketones TRACE mg/dL (NEG) Urine Occult Blood NEG (NEG) Urine Nitrite NEG (NEG) Urine Bilirubin NEG (NEG) Urine Urobilinogen LESS THAN 2.0 MG/DL (LESS THAN 2.0) Urine Leukocyte Esterase NEG (NEG) Urine RBC 1 /hpf (0-3) Urine WBC 1 /hpf (0-5) Urine Squamous Epithelial 3 /hpf (0-5) Cells Urine Transitional Epithelial <1 /hpf (NONE) Cells Urine Amorphous Sediment FEW Urine Bacteria OCC /hpf (NONE) Urine Hyaline Casts 25 /lpf (RARE) Urine Mucus FEW /lpf (OCC) Microscopic Urinalysis Comment CATH-CULTURE IND Lactic Acid Level 3.0 mmol/L (0.4-2.0) Nasal Screen MRSA (PCR) POSITIVE (NEGATIVE) Test 09/03/16 09/03/16 09/03/16 09/03/16 01:45 05:42 10:30 12:15 Lactic Acid Level 2.2 mmol/L (0.4-2.0) White Blood Count 17.1 TH/MM3 (4.0-11.0) Red Blood Count 4.73 MIL/MM3 (4.50-5.90) Hemoglobin 13.4 GM/DL (13.0-17.0) Hematocrit 41.7 % (39.0-51.0) Mean Corpuscular Volume 88.1 FL (80.0-100.0) Mean Corpuscular Hemoglobin 28.4 PG (27.0-34.0) Mean Corpuscular Hemoglobin 32.2 % Concent (32.0-36.0) Red Cell Distribution Width 17.5 % (11.6-17.2) Platelet Count 95 TH/MM3 (150-450) Mean Platelet Volume 10.8 FL (7.0-11.0) Hematology Comments Sodium Level 167 MEQ/L 162 MEQ/L (136-145) (136-145) Potassium Level 4.5 MEQ/L (3.5-5.1) Chloride Level 132 MEQ/L (98-107) Carbon Dioxide Level 20.8 MEQ/L (21.0-32.0) Anion Gap 14 MEQ/L (5-15) Blood Urea Nitrogen 101 MG/DL (7-18) Creatinine 2.62 MG/DL (0.60-1.30) Estimat Glomerular Filtration 24 ML/MIN (>89) Rate Random Glucose 245 MG/DL (74-106) Calcium Level 8.8 MG/DL (8.5-10.1) Urine Eosinophils NONE SEEN /HPF (NONE SEEN) Urine Random Creatinine 88.2 MG/DL Urine Random Sodium 39 MEQ/L Test 09/03/16 09/03/16 09/04/16 18:10 23:43 05:40 Sodium Level 161 MEQ/L 160 MEQ/L 158 MEQ/L (136-145) (136-145) (136-145) White Blood Count 8.6 TH/MM3 (4.0-11.0) Red Blood Count 3.54 MIL/MM3 (4.50-5.90) Hemoglobin 9.9 GM/DL (13.0-17.0) Hematocrit 31.6 % (39.0-51.0) Mean Corpuscular Volume 89.3 FL (80.0-100.0) Mean Corpuscular Hemoglobin 27.9 PG (27.0-34.0) Mean Corpuscular Hemoglobin 31.3 % Concent (32.0-36.0) Red Cell Distribution Width 17.7 % (11.6-17.2) Platelet Count 72 TH/MM3 (150-450) Mean Platelet Volume 10.7 FL (7.0-11.0) Neutrophils (%) (Auto) 70.2 % (16.0-70.0) Lymphocytes (%) (Auto) 22.4 % (9.0-44.0) Monocytes (%) (Auto) 3.6 % (0.0-8.0) Eosinophils (%) (Auto) 3.4 % (0.0-4.0) Basophils (%) (Auto) 0.4 % (0.0-2.0) Neutrophils # (Auto) 6.0 TH/MM3 (1.8-7.7) Lymphocytes # (Auto) 1.9 TH/MM3 (1.0-4.8) Monocytes # (Auto) 0.3 TH/MM3 (0-0.9) Eosinophils # (Auto) 0.3 TH/MM3 (0-0.4) Basophils # (Auto) 0.0 TH/MM3 (0-0.2) CBC Comment AUTO DIFF Differential Total Cells 100 Counted Neutrophils % (Manual) 77 % (16-70) Band Neutrophils % 5 % (0-6) Lymphocytes % 10 % (9-44) Monocytes % 6 % (0-8) Eosinophils % 1 % (0-4) Neutrophils # (Manual) 7.1 TH/MM3 (1.8-7.7) Myelocytes 1 % (0-0) Differential Comment FINAL DIFF MANUAL Platelet Estimate LOW (NORMAL) Platelet Morphology Comment NORMAL (NORMAL) Potassium Level 3.4 MEQ/L (3.5-5.1) Chloride Level 126 MEQ/L (98-107) Carbon Dioxide Level 20.9 MEQ/L (21.0-32.0) Anion Gap 11 MEQ/L (5-15) Blood Urea Nitrogen 61 MG/DL (7-18) Creatinine 1.96 MG/DL (0.60-1.30) Estimat Glomerular Filtration 33 ML/MIN (>89) Rate Random Glucose 260 MG/DL (74-106) Lactic Acid Level 2.5 mmol/L (0.4-2.0) Calcium Level 8.2 MG/DL (8.5-10.1) Phosphorus Level 2.4 MG/DL (2.5-4.9) Magnesium Level 3.3 MG/DL (1.5-2.5) Total Bilirubin 1.0 MG/DL (0.2-1.0) Aspartate Amino Transf 114 U/L (15-37) (AST/SGOT) Alanine Aminotransferase 102 U/L (12-78) (ALT/SGPT) Alkaline Phosphatase 73 U/L (45-117) Total Protein 6.4 GM/DL (6.4-8.2) Albumin 2.7 GM/DL (3.4-5.0) Random Vancomycin Level 6.4 COMMENT Result Diagram: 09/04/16 0540 09/04/16 0540 Microbiology Microbiology Date/Time Procedure Status Source Growth 09/02/16 22:30 Aerobic Blood Culture - Preliminary Resulted Blood Peripheral NO GROWTH IN 1 DAY 09/02/16 22:30 Anaerobic Blood Culture - Preliminary Resulted Blood Peripheral NO GROWTH IN 1 DAY 09/02/16 22:30 Urine Culture - Preliminary Resulted Urine Catheterized Urine Gram Negative Wesley 09/02/16 22:40 Aerobic Blood Culture - Preliminary Resulted Blood Peripheral NO GROWTH IN 1 DAY 09/02/16 22:40 Anaerobic Blood Culture - Preliminary Resulted Blood Peripheral NO GROWTH IN 1 DAY 09/02/16 22:49 Influenza Types A,B Antigen (SELINA) - Final Complete Nasal Washing NEGATIVE FOR FLU A AND B ANTIGEN.... 09/03/16 01:00 Gram Stain - Final Resulted Sputum Endotracheal 09/03/16 01:00 Sputum Culture Resulted Sputum Endotracheal Pending . Imaging Last Impressions Abdomen Ultrasound 09/03/16 0000 Signed Impressions: Service Date/Time: Saturday, September 03, 2016 15:21 - CONCLUSION: 1. No acute findings. Exam somewhat limited by overlying bowel gas. Mina Varghese MD Chest X-Ray 09/02/16 2216 Signed Impressions: Service Date/Time: Friday, September 02, 2016 22:36 - CONCLUSION: 1. Cardiomegaly. No acute pulmonary disease. Rachid Lopez MD . Patient/Family Conference Present at Family Conference: Spoke with sonWinifred via telephone. Family Conference Time (mins): 15 Family Conference Location: Telephone Issues Discussed: * Palliative care role, purpose, approach * Current medical treatment options and benefits/burdens of those options * Questions answered to the best of my ability * Palliative care contact information provided Son is verbalizes appreciation for call and abruptly ends call with a pleasant thank you. . Assessment and Plan Disease Oriented Problem List: (1) Acute renal insufficiency (2) Hypernatremia (3) Hyperglycemia (4) Severe sepsis with acute organ dysfunction (5) Dehydration (6) UTI (urinary tract infection) (7) Alzheimer's dementia (8) GERD (gastroesophageal reflux disease) Symptom Scale: (1) Shortness of breath 0-10 Scale: Unable to quantify Comment: Chronic respiratory failure s/p tracheostomy on oxygen via t-piece. . (2) Debility 0-10 Scale: Unable to quantify Comment: due to ES dementia. (3) Pain 0-10 Scale: Unable to quantify Comment: potential pain sources include ES dementia, bedbound status, contractures and infection. PRN Dilaudid, none given since admission. . Pertinent Non-Medical Issues Psychosocial: . Has 2 children. SNF resident. Spiritual: Not spiritual. Legal: No written advance directives. Patient is incapacitated, will not regain capacity. According to [place] statutes, health care proxy decision-making falls to the patient's spouse. On previous admission the patient's would not make any decisions without the involvement of her sons. Ethical issues impacting care: No living will completed. who is serving as HCP relies on sons for share decision-making. . Important Contacts [place] Amin and son Winifred . . Prognosis Mr. Amin is an 81 y/o male with a medical history significant for severe Alzheimer's dementia, anxiety, BPH and HTN who is bedbound and non-verbal at baseline. Patient admitted on 06/04/16 - 08/15/16 secondary to septic shock and acute respiratory failure. Baseline with documented progressive physical and cognitive decline, now total care at SNF. PEG placed on November secondary to dysphagia and failure to thrive, patient continued declining post PEG placement. Patient is at high risk for further complication, continued decline, and given his poor functional status and health at baseline. His prognosis is poor for an improved quality of life or long-term survival. FAST 7e at baseline. . Code Status: Full Code Plan * No written advance directives. Patient is incapacitated, will not regain capacity to to end-stage dementia. According to [place] statutes, health care proxy decision-making falls to the patient's spouse, Kv[place] Amin. On previous admission the patient's would not make any decisions without the involvement of her sons, Winifred and Milan. also elderly, relying on her sons Winifred and Milan to make healthcare decisions. Recommend share decision- making with and sons. * FULL CODE * Goals of care: Spoke with sonWinifred via telephone. Medical update provided, reviewed risk of repeat hospitalizations and infections etc. He abruptly thanks me for the update, thanks me and says good-bye. Goals remain aggressive. * Symptoms: Shortness of breath: tolerating oxygen via t-piece. Debility: progressive secondary to severe dementia. Patient bedbound and total care at baseline. Pain, history of chronic pain. Has PRN Dilaudid available, none given. * Palliative care contact information provided. * Palliative care to continue to f/y pt/family for further clarification of goals of care. . Thank you for the opportunity to participate in the care of Mr. Amin. Attestation To help prompt me to consider important information that might be impacting today's encounter and assessment, information from prior notes written by myself or my colleagues may have been "brought forward" into today's note. My signature on this note, however, is an attestation that I personally performed the exam, history, and/or decision-making noted today, and, unless otherwise indicated, the interactions with patient, family, and staff as well as the review of records all occurred today. I also attest that the listed assessment and stated plan reflect my best clinical judgment today based on the combination of historical information, prior notes, and today's exam/ interactions. When time spent is documented, it refers only to time spent today by the signer, or if indicated, combined time spent today by collaborating physician/nurse practitioner. LIZETTE BUCKNER Sep 04, 2016 11:23
[2016-09-04] MEDS: POTASSIUM PHOSPHATE/SODIUM PHOSPHATE 250 MG TAB PEG SCH ×3 (12:11→23:05)
[2016-09-04] MEDS: HEPARIN SODIUM - SQ 10,000 UNITS/ML VIAL SQ SCH ×3 (12:12→23:06)
[2016-09-04 19:25] LABS: BICARBONATE 20.4 MEQ/L (21.0-32.0); POTASSIUM 3.7 MEQ/L (3.5-5.1)
[2016-09-05] VITALS (14 sets, daily range): BP systolic 91–126; BP diastolic 48–61; PULSE 88–100; RESP 18–28; TEMP 98–100.9; O2SAT 93–96
[2016-09-05] MEDS: SODIUM CHLORIDE 23.4% INJ 38.5 MEQ in WATER STERILE FOR INJ 1,000 ML IV SCH ×2 (00:10→05:25)
[2016-09-05] MEDS: RESP: ALBUTEROL 2.5 MG/IPRATROPIUM 0.5 MG NEB (SCH) INH ×4 (03:15→20:38)
[2016-09-05] MEDS: FREE WATER G-TUBE SCH ×5 (03:38→23:27)
[2016-09-05] MEDS: CHLORHEXIDINE GLUCONATE 2 % 1 PACK (2 CLOTHS) TOP SCH (03:38)
[2016-09-05] MEDS: POTASSIUM PHOSPHATE/SODIUM PHOSPHATE 250 MG TAB PEG SCH (04:49)
[2016-09-05] MEDS: INSULIN NovoLIN REGULAR SUPPLEMENTAL SCALE SQ SCH ×6 (05:09→23:27)
[2016-09-05 05:14] LABS: AUTOMATED NEUTROPHIL # 5.3 TH/MM3 (1.8-7.7); BASOPHIL % 0.5 % (0.0-2.0); EOSINOPHIL # 0.2 TH/MM3 (0-0.4); EOSINOPHIL % 2.3 % (0.0-4.0); HEMATOCRIT 28.8 % (39.0-51.0); LYMPH % 19.7 % (9.0-44.0); LYMPHOCYTE # 1.4 TH/MM3 (1.0-4.8); MEAN CELL VOLUME 87.3 FL (80.0-100.0); MEAN CORPUSCULAR HEMOGLOBIN 28.1 PG (27.0-34.0); MEAN CORPUSCULAR HGB CONC 32.2 % (32.0-36.0); MONO % 3.7 % (0.0-8.0); NEUT % 73.8 % (16.0-70.0); PLATELET COUNT 77 TH/MM3 (150-450); RED CELL DISTRIBUTION WIDTH 17.9 % (11.6-17.2); WHITE BLOOD COUNT 7.2 TH/MM3 (4.0-11.0)
[2016-09-05 05:16] LABS: HEMO FLAGS AUTO DIFF
[2016-09-05] MEDS: PIPERACIL-TAZO 2.25 GM PREMIX 50 ML IV SCH (05:55)
[2016-09-05 06:00] LABS: ALKALINE PHOSPHATASE 74 U/L (45-117); ALT (GPT) 74 U/L (12-78); ANION GAP 13 MEQ/L (5-15); AST (GOT) 87 U/L (15-37); BICARBONATE 19.6 MEQ/L (21.0-32.0); BLOOD UREA NITROGEN 32 MG/DL (7-18); CHLORIDE 116 MEQ/L (98-107); GLOMERULAR FILTRATION RATE 52 ML/MIN (>89); MAGNESIUM 2.9 MG/DL (1.5-2.5); POTASSIUM 3.5 MEQ/L (3.5-5.1); SODIUM (NA) 149 MEQ/L (136-145); TOTAL BILIRUBIN ADULT 1.1 MG/DL (0.2-1.0)
[2016-09-05 08:15] LABS: BANDS 8 % (0-6); CORRECTED NUCLEATED RBC 2 /100 WBC (0-0); EOSINOPHILS 1 % (0-4); NEUTROPHIL # MANUAL DIFF 6.6 TH/MM3 (1.8-7.7); POLYS (SEG NEUTROPHILS) 83 % (16-70); WBC DIFF SAMPLE 100
[2016-09-05 08:16] LABS: PLATELET ESTIMATE SMEAR LOW (NORMAL); PLATELET MORPHOLOGY NORMAL (NORMAL); SCAN/DIFF FINAL DIFF MANUAL
[2016-09-05] MEDS: INSULIN DETEMIR 100 UNITS/ML VIAL SQ SCH ×2 (09:00→20:56)
[2016-09-05] MEDS: SODIUM CHLORIDE 0.9% FLUSH 10 ML FLUSH IV FLUSH SCH ×2 (09:00→20:58)
[2016-09-05] MEDS: FAMOTIDINE 20 MG TAB NG SCH (09:00)
[2016-09-05] MEDS: DOCUSATE SODIUM 50 MG/SENNA 8.6 MG TAB PO SCH ×2 (09:06→20:57)
[2016-09-05] MEDS: MODAFINIL 200 MG TAB PO SCH (09:06)
--- NOTE | 2016-09-05 10:26 | HHI.CCPN ---
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 He is well-known to me and I have taken care of him during his 2-month prior ICU admission with us. He has a history if dementia, DM, and chronic respiratory failure requiring tracheostomy. He was sent from the shelter for evaluation of hyperglycemia. However, on evaluation in the ER, he was found to be tachycardic , diaphoretic. He had a serum Na 160, glucose of 600, Cr 3 (baseline around 1), lactate of 3.0, wbc 17. He was febrile as well. CXR appears clear and u/a clean. Unfortunately, the patient is unable to provide any additional history given his chronic medical state. The remainder of the history is based on my prior knowledge of the patient and chart review. I evaluated the patient in the emergency department. 09/03: Afebrile. On T piece. No acute issues overnight. Creatinine slowly correcting. 09/04: Currently resting in bed at baseline neurologic valladares. Creatinine slowly correcting. Sodium slowly correcting. Positive BM. Afebrile. Subjective 09/05: Currently on TPs. Attempt to switch to trach collar. Sodium and creatinine are cracking. At baseline neurologic valladares. Positive BM. Tolerating tube feeding. Objective Vital Signs Date Time Temp Pulse Resp B/P Pulse Ox O2 Delivery O2 Flow Rate FiO2 09/05/16 10:03 97 09/05/16 09:01 96 T-piece 5.00 21 09/05/16 08:00 98.6 24 110/56 Intake and Output 09/04/16 09/04/16 09/05/16 08:00 16:00 00:00 Intake Total 1793 ml 1848 ml 2147 ml Output Total 450 ml 625 ml 750 ml Balance 1343 ml 1223 ml 1397 ml Result Diagram: 09/05/16 0452 09/05/16 0452 Other Results Microbiology Date/Time Procedure Status Source Growth 09/03/16 01:00 Gram Stain - Final Resulted Sputum Endotracheal 09/03/16 01:00 Sputum Culture - Preliminary Resulted Pseudomonas Species Proteus Species Gram Negative Wesley 09/02/16 22:49 Influenza Types A,B Antigen (SELINA) - Final Complete Nasal Washing NEGATIVE FOR FLU A AND B ANTIGEN.... 09/02/16 22:40 Aerobic Blood Culture - Preliminary Resulted Blood Peripheral NO GROWTH IN 2 DAYS 09/02/16 22:40 Anaerobic Blood Culture - Preliminary Resulted Blood Peripheral NO GROWTH IN 2 DAYS 09/02/16 22:30 Urine Culture - Final Complete Urine Catheterized Urine Proteus Mirabilis Klebsiella Pneumoniae Esbl Pos Imaging Last Impressions Abdomen Ultrasound 09/03/16 0000 Signed Impressions: Service Date/Time: Saturday, September 03, 2016 15:21 - CONCLUSION: 1. No acute findings. Exam somewhat limited by overlying bowel gas. Mina Varghese MD Chest X-Ray 09/02/166 Signed Impressions: Service Date/Time: Friday, September 02, 2016 22:36 - CONCLUSION: 1. Cardiomegaly. No acute pulmonary disease. Rachid Lopez MD Objective Remarks GENERAL: 80 yo male patient, critically ill, currently on T piece HEAD: Normocephalic. EYES: PERRL. No scleral icterus. No scleral edema. Some drainage from right eye. NECK: Supple, trachea midline. No JVD. tracheostomy in place without erythema or bleeding. CARDIOVASCULAR: RRR. S1, S2. No S4. No murmur RESPIRATORY: Transmitted upper airway sounds clear with suctioning tracheostomy. Few crackles appreciated in the bases bilaterally. Symmetrical excursion. GASTROINTESTINAL: Abdomen soft, non-tender, nondistended. PEG tube is in place above the umbilicus very little erythema. MUSCULOSKELETAL: contracted bilateral upper and lower extremity.. With trace nonpitting peripheral upper and lower extremity edema. : No scrotal edema. Neuro: Opens eyes spontaneously. does not follow commands. extends LUE, withdraws x 3. Skin: Stage I decubitus ulcer coccyx 2 cm x 2 cm and healing ulcer left heel A/P Assessment and Plan NEUROLOGY/PSYCH Alzheimer's dementia Hypoactive delirium Depression/anxiety -Acetaminophen for fever/Dilaudid as needed for pain management. -Monitor neuro status. -Continue Provigil 400 mg daily in attempt increased alertness. Note has been on this since 06/25/16 with minimal improvement --Limit sedation if possible PULMONARY VDRF --Continue T piece as tolerated -HOB at 30 degrees -s/p #8 Shiley percutaneous trach 06/13. (Dr. Morataya/Dr. Dai). Downsized to a # 6 Shiley DFEN 08/05 -Duonebs q6h and q2h prn. CARDIOVASCULAR History of Hypertension -Currently not requiring antihypertensives and/or vasopressors. -Telemetry will be continued -continue free water to 200cc q4hr. with one quarter normal saline at 75 cc an hour GASTROENTEROLOGY Failure to thrive Gastroesophageal reflux disease Severe acute protein calorie malnutrition- severe Hypo-albuminemia Elevated transaminases -TF to goal as tolerated with Glucerna 1.5 goal of 50 cc an hour -On Pepcid.for GI prophylaxis -PeriColace twice a day for bowel regimen RENAL//FEN: BPH Acute kidney injury Hypernatremia Hyperchloridemia Hypophosphatemia -Continue to Monitor renal function, Currently on a hypotonic crystalloid replacement. Received 30 mmol K-Phos IV 1 now. Replace electrolytes as clinically indicated Renal/abdominal ultrasound revealed no hydronephrosis. INFECTION DISEASE History of E. Cloacae UTI History of MRSA in sputum, colonized History of Klebsiella in sputum, colonized Funguria with history of tropicalis and glabrata Currently on Zosyn day #3/vancomycin discontinued 10/04 broad-spectrum antibiotics. -Continue on Bactrim suppression treatment once creatinine normalizes Pertinent cultures 06/04 - urine - E. Cloacae 06/16 - sputum - Alla Tropicalis 06/27 blood - Staph Epi (1/2 bottles) 06/28 urine - alla glabrata 06/28 sputum - Klebsiella (intermediate to zosyn), MRSA 07/12 sputum - MRSA 07/18 sputum - MRSA, Klebsiella 07/21 sputum -MRSA, Klebsiella 07/21 blood -no growth for 2 days 07/21 urine -Alla glabrata 09/02 - blood cultures 2 -route for coag negative staph 09/02: urine - Proteus, Klebsiella ESBL positive 09/03 -sputum-Pseudomonas, Proteus and gram-negative wesley Influenza negative. Consult ID for antibiotic recommendations. Previously on suppressive Bactrim twice a day HEMATOLOGY History of Normocytic anemia Leukocytosis Thrombocytopenia -Currently no indication for transfusion of blood proximally at this time -Hemoccult stool was negative -Transfuse if hemoglobin below 7. ENDOCRINOLOGY: Hyperglycemia of critical illness Currently on Levemir 15 units twice a day. Scale insulin with Accu-Cheks every 4 hours maintain euglycemia. 20 unit is past 24 hours. -Accu-Cheks with sliding scale insulin with Accu-Cheks every 4 hours to maintain euglycemia PROPHYLAXIS -GI prophylaxis-Pepcid q24 -DVT prevention: SCDs. SQH 5000 q12hr SKIN Left heel blister Sacral decubitus ulcer stage I -Continue Multi-Podus boots, wound care following - Continue wrist splints alternating sides daily Wound care evaluate and treat LINES -PIVs level 2 Likely stable to transfer to shelter in [place] MD Sep 05, 2016 10:26
[2016-09-05] MEDS ORDERED: POTASSIUM PHOSPHATE INJ 30 MMOL in SODIUM CHLOR 0.9% 250 ML INJ 250 ML IV ONE (12:00)
[2016-09-05] MEDS ORDERED: POTASSIUM PHOSPHATE MONOBASIC 500 MG TAB PEG ONE (12:00)
[2016-09-05] MEDS ORDERED: PIPERACIL-TAZO 2.25 GM PREMIX 50 ML IV SCH (12:00)
[2016-09-05] MEDS: HEPARIN SODIUM - SQ 10,000 UNITS/ML VIAL SQ SCH ×2 (13:02→23:27)
[2016-09-05] MEDS: POTASSIUM PHOSPHATE MONOBASIC 500 MG TAB PEG SCH ×3 (13:02→23:27)
[2016-09-05] MEDS ORDERED: MISCELLANEOUS PHARMACY INFORMATION XX PRN (16:45)
[2016-09-05] MEDS ORDERED: ASP: Documented ESBL, MDR A baumannii or P. aeruginosa PRN (16:45)
[2016-09-05] MEDS ORDERED: ERTAPENEM INJ 1,000 MG in SODIUM CHLORIDE 0.9% INJ 100 ML IV SCH (18:00)
[2016-09-05] MEDS: ACETAMINOPHEN 325 MG TAB PO PRN (20:57)
--- NOTE | 2016-09-05 22:46 | PD.ID.CON ---
History of Present Illness Service ID Consult Requested By Dr Marinelli Reason for Consult ESBL + Kleb pneumo UTI Primary Care Physician Non-Staff Diagnoses: History of Present Illness Pt is well known to me from previous admission He is a 81 yo male who is non verbal, contracted bedridden 2/2 advanced dementia He was just recently admitted and he again presented 3 days ago [facility]. On evaluation in the ER, he was found to be tachycardic, diaphoretic, with serum Na 160, glucose of 600, Cr 3 (baseline around 1), lactate of 3.0, wbc 17. His CXR appears clear and u/a clean. He was started on zosyn His UA sowed just bactermiuria, but urine clx was + for ESBL + Kleb pneumo Review of Systems ROS Limitations: Clinical Condition, Altered Mental Status, Unresponsive Past Family Social History Allergies: Coded Allergies: *MDRO Multi-Drug Resistant Organism (Verified Adverse Reaction, Unknown, ) MRSA (sputum) - 06/28/16, 07/12/16, 07/21/16 MRSA PCR Screen POSITIVE - 09/03/2016 Active Ordered Medications Medications where reviewed in EMR Antibiotics Include: zosyn Physical Exam Vital Signs Vital Signs Date Time Temp Pulse Resp B/P Pulse Ox O2 Delivery O2 Flow Rate FiO2 09/05/16 22:00 94 09/05/16 21:57 24 09/05/16 20:38 96 Trach Collar 5.00 21 09/05/16 20:00 100.9 89 28 104/51 93 09/05/16 20:00 89 09/05/16 18:00 91 09/05/16 16:00 93 09/05/16 16:00 98.0 97 24 94/48 96 09/05/16 14:00 97 09/05/16 12:00 93 09/05/16 10:03 97 09/05/16 09:01 96 T-piece 5.00 21 09/05/16 08:00 98.6 90 24 110/56 94 09/05/16 08:00 100 09/05/16 06:00 88 09/05/16 04:00 97 09/05/16 04:00 98.8 95 18 126/61 96 09/05/16 02:00 92 09/05/16 00:00 93 09/05/16 00:00 99.0 93 18 91/50 96 Physical Exam CONSTITUTIONAL/GENERAL: This is an adequately nourished patient, in no apparent distress. TUBES/LINES/DRAINS: SKIN: No jaundice, rashes, or lesions. Skin temperature appropriate. Not diaphoretic. HEAD: Atraumatic. Normocephalic. EYES: Pupils equal and round and reactive. Extraocular motions intact. No scleral icterus. No injection or drainage. Fundi not examined. ENT: Nose without bleeding or purulent drainage. Throat without visible erythema , exudates, masses, or lesions. NECK: Trachea midline. Supple, nontender. Trach collar in place , site [place] CARDIOVASCULAR: Regular rate and rhythm without murmurs, gallops, or rubs. No JVD. Peripheral pulses symmetric. RESPIRATORY/CHEST: Symmetric, unlabored respirations. Clear to auscultation. Breath sounds equal bilaterally. No wheezes, rales, or rhonchi. GASTROINTESTINAL: Abdomen soft, non-tender, moderrately distended. No hepato- splenomegaly, or palpable masses. No guarding. Bowel sounds present. Dignishild in place with liquid brown stool GENITOURINARY: Without palpable bladder distension. Mkceon catheter in place with clear yellow urine MUSCULOSKELETAL: Extremities without clubbing, cyanosis, + trace edema. No joint tenderness or effusion noted. No calf tenderness. No mottling or clubbing. LYMPHATICS: No palpable cervical or supraclavicular adenopathy. NEUROLOGICAL: Obtunded; mnimally responsive; not follows commands, no spontaneous movement s noted PSYCHIATRIC: marco antonio adams ssess Laboratory Laboratory Tests Test 09/05/16 04:52 White Blood Count 7.2 Red Blood Count 3.30 Hemoglobin 9.3 Hematocrit 28.8 Mean Corpuscular Volume 87.3 Mean Corpuscular Hemoglobin 28.1 Mean Corpuscular Hemoglobin 32.2 Concent Red Cell Distribution Width 17.9 Platelet Count 77 Mean Platelet Volume 10.7 Neutrophils (%) (Auto) 73.8 Lymphocytes (%) (Auto) 19.7 Monocytes (%) (Auto) 3.7 Eosinophils (%) (Auto) 2.3 Basophils (%) (Auto) 0.5 Neutrophils # (Auto) 5.3 Lymphocytes # (Auto) 1.4 Monocytes # (Auto) 0.3 Eosinophils # (Auto) 0.2 Basophils # (Auto) 0.0 CBC Comment AUTO DIFF Differential Total Cells 100 Counted Neutrophils % (Manual) 83 Band Neutrophils % 8 Lymphocytes % 6 Monocytes % 2 Eosinophils % 1 Neutrophils # (Manual) 6.6 Nucleated Red Blood Cells 2 Differential Comment FINAL DIFF MANUAL Platelet Estimate LOW Platelet Morphology Comment NORMAL Sodium Level 149 Potassium Level 3.5 Chloride Level 116 Carbon Dioxide Level 19.6 Anion Gap 13 Blood Urea Nitrogen 32 Creatinine 1.32 Estimat Glomerular Filtration 52 Rate Random Glucose 177 Lactic Acid Level 1.0 Calcium Level 7.9 Phosphorus Level 2.1 Magnesium Level 2.9 Total Bilirubin 1.1 Aspartate Amino Transf 87 (AST/SGOT) Alanine Aminotransferase 74 (ALT/SGPT) Alkaline Phosphatase 74 Total Protein 6.3 Albumin 2.5 Date/Time Procedure Status Source Growth 09/03/16 01:00 Gram Stain - Final Resulted Sputum Endotracheal 09/03/16 01:00 Sputum Culture - Preliminary Resulted Pseudomonas Species Proteus Species Gram Negative Wesley 09/02/16 22:49 Influenza Types A,B Antigen (SELINA) - Final Complete Nasal Washing NEGATIVE FOR FLU A AND B ANTIGEN.... 09/02/16 22:40 Aerobic Blood Culture - Preliminary Resulted Blood Peripheral NO GROWTH IN 3 DAYS 09/02/16 22:40 Anaerobic Blood Culture - Preliminary Resulted Blood Peripheral NO GROWTH IN 3 DAYS 09/02/16 22:30 Urine Culture - Final Complete Urine Catheterized Urine Proteus Mirabilis Klebsiella Pneumoniae Esbl Pos Result Diagram: 09/05/16 0452 09/05/16 0452 Imaging Last Impressions Abdomen Ultrasound 09/03/16 0000 Signed Impressions: Service Date/Time: Saturday, September 03, 2016 15:21 - CONCLUSION: 1. No acute findings. Exam somewhat limited by overlying bowel gas. Mina Varghese MD Chest X-Ray 09/02/16 2216 Signed Impressions: Service Date/Time: Friday, September 02, 2016 22:36 - CONCLUSION: 1. Cardiomegaly. No acute pulmonary disease. Rachid Lopez MD Assessment and Plan Assessment and Plan advanced dementia Diarrhea, ho recent abx use UTI, ESBL KJleb pneumo in clx - dc zosyn - start Ertapenem - ro C.diff Elle Cardenas MD Sep 05, 2016 22:46
[2016-09-06] VITALS (14 sets, daily range): BP systolic 86–132; BP diastolic 49–78; PULSE 87–113; RESP 17–28; TEMP 98.3–99.5; O2SAT 95–100
[2016-09-06] MEDS: SODIUM CHLORIDE 23.4% INJ 38.5 MEQ in WATER STERILE FOR INJ 1,000 ML IV SCH ×2 (02:33→09:40)
[2016-09-06 02:36] LABS: C. DIFF EPI 027 PRESUMPTIVE NEGATIVE (NEGATIVE); C. DIFF TOXIN PCR NEGATIVE (NEGATIVE)
[2016-09-06] MEDS: CHLORHEXIDINE GLUCONATE 2 % 1 PACK (2 CLOTHS) TOP SCH (04:00)
[2016-09-06] MEDS: INSULIN NovoLIN REGULAR SUPPLEMENTAL SCALE SQ SCH ×5 (04:05→20:20)
[2016-09-06] MEDS: RESP: ALBUTEROL 2.5 MG/IPRATROPIUM 0.5 MG NEB (SCH) INH ×4 (04:24→19:39)
[2016-09-06] MEDS: FREE WATER G-TUBE SCH ×3 (05:00→17:04)
[2016-09-06] MEDS: POTASSIUM PHOSPHATE MONOBASIC 500 MG TAB PEG SCH (05:00)
[2016-09-06] MEDS: DOCUSATE SODIUM 50 MG/SENNA 8.6 MG TAB PO SCH ×2 (09:00→20:20)
[2016-09-06] MEDS: SODIUM CHLORIDE 0.9% FLUSH 10 ML FLUSH IV FLUSH SCH ×2 (09:00→20:20)
[2016-09-06] MEDS: INSULIN DETEMIR 100 UNITS/ML VIAL SQ SCH ×2 (09:08→20:19)
[2016-09-06] MEDS: MODAFINIL 200 MG TAB PO SCH (09:08)
[2016-09-06] MEDS: FAMOTIDINE 20 MG TAB NG SCH (09:08)
[2016-09-06 10:21] LABS: AUTOMATED NEUTROPHIL # 6.5 TH/MM3 (1.8-7.7); BASOPHIL # 0.1 TH/MM3 (0-0.2); BASOPHIL % 1.4 % (0.0-2.0); EOSINOPHIL # 0.1 TH/MM3 (0-0.4); EOSINOPHIL % 1.1 % (0.0-4.0); HEMATOCRIT 29.9 % (39.0-51.0); LYMPH % 17.7 % (9.0-44.0); LYMPHOCYTE # 1.5 TH/MM3 (1.0-4.8); MEAN CELL VOLUME 84.7 FL (80.0-100.0); MEAN CORPUSCULAR HEMOGLOBIN 28.6 PG (27.0-34.0); MEAN CORPUSCULAR HGB CONC 33.7 % (32.0-36.0); MONO % 5.1 % (0.0-8.0); NEUT % 74.7 % (16.0-70.0); PLATELET COUNT 93 TH/MM3 (150-450); RED BLOOD COUNT 3.52 MIL/MM3 (4.50-5.90); RED CELL DISTRIBUTION WIDTH 18.1 % (11.6-17.2); WHITE BLOOD COUNT 8.7 TH/MM3 (4.0-11.0)
[2016-09-06 10:45] LABS: BICARBONATE 19.7 MEQ/L (21.0-32.0); MAGNESIUM 2.9 MG/DL (1.5-2.5)
[2016-09-06 10:46] LABS: POTASSIUM 4.3 MEQ/L (3.5-5.1)
[2016-09-06 11:07] LABS: HEMO FLAGS AUTO DIFF
[2016-09-06 11:08] LABS: PLATELET ESTIMATE SMEAR LOW (NORMAL); PLATELET MORPHOLOGY NORMAL (NORMAL); SCAN/DIFF AUTO DIFF CONFIRMED
[2016-09-06] MEDS: HEPARIN SODIUM - SQ 10,000 UNITS/ML VIAL SQ SCH (12:00)
[2016-09-06] MEDS: HYDROmorphone HCL PF 1 MG/ML VIAL IV PUSH PRN (14:18)
[2016-09-06 14:33] LABS: BLOOD GAS HCO3 18 mmol/L (22-26); BLOOD GAS METHEMOGLOBIN 1.2 % (0-2); BLOOD GAS O2 HGB SATURATION 82 % (90-100); BLOOD GAS OXYGEN CONTENT 11.8 Vol % (12.0-20.0); BLOOD GAS PCO2 21 mmHg (38-42); BLOOD GAS PO2 48 mmHg (61-120); BLOOD GAS TOTAL HGB 10.2 G/DL (12.0-16.0); TEMP CORR TO 98.6
[2016-09-06 14:34] LABS: CRITICAL VALUE YES; DRAW SITE LT RADIAL; FIO2 35 %; LITER FLOW 5 L/M; NUMBER OF ARTERIAL PUNCTURES 1; OXYGEN DEVICE MASK; STAT NO
--- NOTE | 2016-09-06 16:24 | HHI.IDPN ---
Subjective Subjective Remarks RT reporting large amount of secretions no fever tioday, T max 100.8 last night cont to have diarrhea, C.diff negative Antibiotics Ertapenem Allergies: Coded Allergies: *MDRO Multi-Drug Resistant Organism (Verified Adverse Reaction, Unknown, ) MRSA (sputum) - 06/28/16, 07/12/16, 07/21/16 MRSA PCR Screen POSITIVE - 09/03/2016 ESBL K. pneumoniae (urine) - 09/02/16 Objective . Vital Signs Date Time Temp Pulse Resp B/P Pulse Ox O2 Delivery O2 Flow Rate FiO2 09/06/16 14:48 18 09/06/16 14:00 87 09/06/16 12:00 98.9 113 17 120/58 98 09/06/16 12:00 104 09/06/16 10:12 95 T-piece 6.00 35 09/06/16 10:00 105 09/06/16 08:00 104 09/06/16 08:00 98.9 104 20 129/59 98 09/06/16 06:00 105 09/06/16 04:00 99.5 94 22 132/78 97 09/06/16 04:00 94 09/06/16 02:00 95 09/06/16 00:00 98.3 90 28 86/49 95 09/06/16 00:00 90 09/05/16 22:00 94 09/05/16 21:57 24 09/05/16 20:38 96 Trach Collar 5.00 21 09/05/16 20:00 100.9 89 28 104/51 93 09/05/16 20:00 89 09/05/16 18:00 91 09/05/16 09/05/16 09/06/16 15:00 23:00 07:00 Intake Total 3241 ml 1042 ml Output Total 1900 ml 600 ml Balance 1341 ml 442 ml Intake Oral 0 ml IV Total 1901 ml 526 ml Tube Feeding 740 ml 316 ml Other 600 ml 200 ml Output Urine Total 1700 ml 400 ml Stool Total 200 ml 200 ml # Bowel Movements 2 . Laboratory Tests Test 09/05/16 09/06/16 04:52 09:18 White Blood Count 7.2 TH/MM3 8.7 TH/MM3 Red Blood Count 3.30 MIL/MM3 3.52 MIL/MM3 Hemoglobin 9.3 GM/DL 10.1 GM/DL Hematocrit 28.8 % 29.9 % Mean Corpuscular Volume 87.3 FL 84.7 FL Mean Corpuscular Hemoglobin 28.1 PG 28.6 PG Mean Corpuscular Hemoglobin 32.2 % 33.7 % Concent Red Cell Distribution Width 17.9 % 18.1 % Platelet Count 77 TH/MM3 93 TH/MM3 Mean Platelet Volume 10.7 FL 10.7 FL Neutrophils (%) (Auto) 73.8 % 74.7 % Lymphocytes (%) (Auto) 19.7 % 17.7 % Monocytes (%) (Auto) 3.7 % 5.1 % Eosinophils (%) (Auto) 2.3 % 1.1 % Basophils (%) (Auto) 0.5 % 1.4 % Neutrophils # (Auto) 5.3 TH/MM3 6.5 TH/MM3 Lymphocytes # (Auto) 1.4 TH/MM3 1.5 TH/MM3 Monocytes # (Auto) 0.3 TH/MM3 0.4 TH/MM3 Eosinophils # (Auto) 0.2 TH/MM3 0.1 TH/MM3 Basophils # (Auto) 0.0 TH/MM3 0.1 TH/MM3 CBC Comment AUTO DIFF AUTO DIFF Differential Total Cells 100 Counted Neutrophils % (Manual) 83 % Band Neutrophils % 8 % Lymphocytes % 6 % Monocytes % 2 % Eosinophils % 1 % Neutrophils # (Manual) 6.6 TH/MM3 Nucleated Red Blood Cells 2 /100 WBC Differential Comment FINAL DIFF AUTO DIFF MANUAL CONFIRMED Platelet Estimate LOW LOW Platelet Morphology Comment NORMAL NORMAL Laboratory Tests Test 09/04/16 09/05/16 09/06/16 18:30 04:52 09:18 Sodium Level 151 MEQ/L 149 MEQ/L 144 MEQ/L Potassium Level 3.7 MEQ/L 3.5 MEQ/L 4.3 MEQ/L Chloride Level 119 MEQ/L 116 MEQ/L 113 MEQ/L Carbon Dioxide Level 20.4 MEQ/L 19.6 MEQ/L 19.7 MEQ/L Anion Gap 12 MEQ/L 13 MEQ/L 11 MEQ/L Blood Urea Nitrogen 43 MG/DL 32 MG/DL 22 MG/DL Creatinine 1.53 MG/DL 1.32 MG/DL 1.21 MG/DL Estimat Glomerular Filtration 44 ML/MIN 52 ML/MIN 57 ML/MIN Rate Random Glucose 203 MG/DL 177 MG/DL 157 MG/DL Calcium Level 7.8 MG/DL 7.9 MG/DL 8.6 MG/DL Lactic Acid Level 1.0 mmol/L Phosphorus Level 2.1 MG/DL 1.9 MG/DL Magnesium Level 2.9 MG/DL 2.9 MG/DL Total Bilirubin 1.1 MG/DL Aspartate Amino Transf 87 U/L (AST/SGOT) Alanine Aminotransferase 74 U/L (ALT/SGPT) Alkaline Phosphatase 74 U/L Total Protein 6.3 GM/DL Albumin 2.5 GM/DL Microbiology Date/Time Procedure Status Source Growth 09/06/16 03:45 Gram Stain - Final Resulted Wound Buttock 09/06/16 03:45 Wound Culture Resulted Wound Buttock Pending Imaging Last Impressions Abdomen Ultrasound 09/03/16 0000 Signed Impressions: Service Date/Time: Saturday, September 03, 2016 15:21 - CONCLUSION: 1. No acute findings. Exam somewhat limited by overlying bowel gas. Mina Varghese MD Chest X-Ray 09/02/16 2216 Signed Impressions: Service Date/Time: Friday, September 02, 2016 22:36 - CONCLUSION: 1. Cardiomegaly. No acute pulmonary disease. Rachid Lopez MD Physical Exam CONSTITUTIONAL/GENERAL: This is an adequately nourished patient, in no apparent distress. TUBES/LINES/DRAINS: SKIN: No jaundice, rashes, or lesions. Skin temperature appropriate. Not diaphoretic. HEAD: Atraumatic. Normocephalic. EYES: Pupils equal and round and reactive. Extraocular motions intact. No scleral icterus. No injection or drainage. Fundi not examined. ENT: Nose without bleeding or purulent drainage. Throat without visible erythema , exudates, masses, or lesions. NECK: Trachea midline. Supple, nontender. Trach collar in place , site [place] CARDIOVASCULAR: Regular rate and rhythm without murmurs, gallops, or rubs. No JVD. Peripheral pulses symmetric. RESPIRATORY/CHEST: Symmetric, unlabored respirations. Clear to auscultation. Breath sounds equal bilaterally. No wheezes, rales, or rhonchi. GASTROINTESTINAL: Abdomen soft, non-tender, moderately distended. No hepato- splenomegaly, or palpable masses. No guarding. Bowel sounds present. Dignishild in place with liquid brown stool GENITOURINARY: Without palpable bladder distension. Mckeon catheter in place with clear yellow urine MUSCULOSKELETAL: Extremities without clubbing, cyanosis, + trace edema. No joint tenderness or effusion noted. No calf tenderness. No mottling or clubbing. LYMPHATICS: No palpable cervical or supraclavicular adenopathy. NEUROLOGICAL: Obtunded; mnimally responsive; not follows commands, no spontaneous movement s noted PSYCHIATRIC: unable to assess Assessment & Plan Remarks advanced dementia Diarrhea, ho recent abx use; C.diff negative UTI, ESBL KJleb pneumo in clx Tracheo bronchitis wo e/o PNA on CXR - colonised with multiple GNBs, - change Ertapenem to meropenem Elle Cardenas MD Sep 06, 2016 16:24
[2016-09-06] MEDS ORDERED: MISCELLANEOUS PHARMACY INFORMATION XX PRN (16:30)
[2016-09-06] MEDS ORDERED: ASP: Documented ESBL, MDR A baumannii or P. aeruginosa PRN (16:30)
--- NOTE | 2016-09-06 17:40 | HHI.CCPN ---
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 He is well-known to me and I have taken care of him during his 2-month prior ICU admission with us. He has a history if dementia, DM, and chronic respiratory failure requiring tracheostomy. He was sent from the longterm for evaluation of hyperglycemia. However, on evaluation in the ER, he was found to be tachycardic , diaphoretic. He had a serum Na 160, glucose of 600, Cr 3 (baseline around 1), lactate of 3.0, wbc 17. He was febrile as well. CXR appears clear and u/a clean. Unfortunately, the patient is unable to provide any additional history given his chronic medical state. The remainder of the history is based on my prior knowledge of the patient and chart review. I evaluated the patient in the emergency department. 09/03: Afebrile. On T piece. No acute issues overnight. Creatinine slowly correcting. 09/04: Currently resting in bed at baseline neurologic valladares. Creatinine slowly correcting. Sodium slowly correcting. Positive BM. Afebrile. 09/05: Currently on TPs. Attempt to switch to trach collar. Sodium and creatinine are cracking. At baseline neurologic valladares. Positive BM. Tolerating tube feeding. Subjective 09/06: Noted increasing O2 request up-to-date. Thick greenish secretions. X- ray revealed no acute spines. Possibly mucus plugging. We'll place on ventilator short-term. Add hypertonic saline nebs. Neurologically baseline. Objective Vital Signs Date Time Temp Pulse Resp B/P Pulse Ox O2 Delivery O2 Flow Rate FiO2 09/06/16 14:48 18 09/06/16 14:00 87 09/06/16 12:00 98.9 120/58 98 09/06/16 10:12 T-piece 6.00 35 Intake and Output 09/05/16 09/05/16 09/06/16 08:00 16:00 00:00 Intake Total 1552 ml 2188 ml 1053 ml Output Total 350 ml 1400 ml 500 ml Balance 1202 ml 788 ml 553 ml Result Diagram: 09/06/1618 09/06/16 0918 Other Results Microbiology Date/Time Procedure Status Source Growth 09/06/16 03:45 Gram Stain - Final Resulted Wound Buttock 09/06/16 03:45 Wound Culture Resulted Wound Buttock Pending 09/02/16 22:49 Influenza Types A,B Antigen (SELINA) - Final Complete Nasal Washing NEGATIVE FOR FLU A AND B ANTIGEN.... 09/02/16 22:40 Aerobic Blood Culture - Preliminary Resulted Blood Peripheral NO GROWTH IN 4 DAYS 09/02/16 22:40 Anaerobic Blood Culture - Preliminary Resulted Blood Peripheral NO GROWTH IN 4 DAYS 09/02/16 22:30 Urine Culture - Final Complete Urine Catheterized Urine Proteus Mirabilis Klebsiella Pneumoniae Esbl Pos 09/02/16 22:30 Aerobic Blood Culture - Final Resulted Blood Peripheral Staphylococcus Hominis-Hominis 09/02/16 22:30 Anaerobic Blood Culture - Preliminary Resulted Blood Peripheral NO GROWTH IN 4 DAYS Imaging Last Impressions Abdomen Ultrasound 09/03/16 0000 Signed Impressions: Service Date/Time: Saturday, September 03, 2016 15:21 - CONCLUSION: 1. No acute findings. Exam somewhat limited by overlying bowel gas. Mina Varghese MD Chest X-Ray 09/02/16 2216 Signed Impressions: Service Date/Time: Friday, September 02, 2016 22:36 - CONCLUSION: 1. Cardiomegaly. No acute pulmonary disease. Rachid Lopez MD Objective Remarks GENERAL: 80 yo male patient, critically ill, currently on T piece about to convert to ventilator HEAD: Normocephalic. EYES: PERRL. No scleral icterus. No scleral edema. Some drainage from right eye. NECK: Supple, trachea midline. No JVD. tracheostomy in place without erythema or bleeding. CARDIOVASCULAR: RRR. S1, S2. No S4. No murmur RESPIRATORY: Transmitted upper airway sounds clear with suctioning tracheostomy. Few crackles appreciated in the bases bilaterally. Symmetrical excursion. GASTROINTESTINAL: Abdomen soft, non-tender, nondistended. PEG tube is in place above the umbilicus very little erythema. MUSCULOSKELETAL: contracted bilateral upper and lower extremity.. With trace nonpitting peripheral upper and lower extremity edema. : No scrotal edema. Neuro: Opens eyes spontaneously. does not follow commands. extends LUE, withdraws x 3. Skin: Stage II-III decubitus ulcer coccyx 2 cm x 2 cm and healing ulcer left heel A/P Assessment and Plan NEUROLOGY/PSYCH Alzheimer's dementia Hypoactive delirium Depression/anxiety -Acetaminophen for fever/Dilaudid as needed for pain management. -Monitor neuro status. -Continue Provigil 400 mg daily in attempt increased alertness. Note has been on this since 06/25/16 with minimal improvement --Limit sedation if possible PULMONARY VDRF --Continue T piece as tolerated -HOB at 30 degrees -s/p #8 Shiley percutaneous trach 06/13. (Dr. Morataya/Dr. Dai). Downsized to a # 6 Shiley DFEN 08/05 -Duonebs q6h and q2h prn. Hypertonic saline every 65 days mucolytic along with guaifenesin 400 every 85 days CARDIOVASCULAR History of Hypertension -Currently not requiring antihypertensives and/or vasopressors. -Telemetry will be continued -continue free water to 200cc q6hr. and will discontinue one quarter normal saline at 75 cc an hour GASTROENTEROLOGY Failure to thrive Gastroesophageal reflux disease Severe acute protein calorie malnutrition- severe Hypo-albuminemia Elevated transaminases -TF to goal as tolerated with Glucerna 1.5 goal of 50 cc an hour -On Pepcid.for GI prophylaxis -PeriColace twice a day for bowel regimen RENAL//FEN: BPH Acute kidney injury Hypernatremia Hyperchloridemia Hypophosphatemia -Continue to Monitor renal function, Received Neutra-Phos 1 tablet every 6 hours 4 dosages Replace electrolytes as clinically indicated Renal/abdominal ultrasound revealed no hydronephrosis. INFECTION DISEASE History of E. Cloacae UTI History of MRSA in sputum, colonized History of Klebsiella in sputum, colonized Funguria with history of tropicalis and glabrata Fix disease placed on on Merrem day #1. 1 dose of ertapenem yesterday. Previously on Zosyn 3 days with 1 dose of vancomycin Pertinent cultures 06/04 - urine - E. Cloacae 06/16 - sputum - Alla Tropicalis 06/27 blood - Staph Epi (1/2 bottles) 06/28 urine - alla glabrata 06/28 sputum - Klebsiella (intermediate to zosyn), MRSA 07/12 sputum - MRSA 07/18 sputum - MRSA, Klebsiella 07/21 sputum -MRSA, Klebsiella 07/21 blood -no growth for 2 days 07/21 urine -Alla glabrata 09/02 - blood cultures 2 -route for coag negative staph 09/02: urine - Proteus, Klebsiella ESBL positive 09/03 -sputum-Pseudomonas, Proteus and gram-negative michael Influenza negative. Consult ID for antibiotic recommendations. Previously on suppressive Bactrim twice a day HEMATOLOGY History of Normocytic anemia Leukocytosis Thrombocytopenia -Currently no indication for transfusion of blood proximally at this time -Hemoccult stool was negative -Transfuse if hemoglobin below 7. ENDOCRINOLOGY: Hyperglycemia of critical illness Currently on Levemir 15 units twice a day. Scale insulin with Accu-Cheks every 4 hours maintain euglycemia. 10 units sliding scale insulin past 24 hours. -Accu-Cheks with sliding scale insulin with Accu-Cheks every 4 hours to maintain euglycemia PROPHYLAXIS -GI prophylaxis-Pepcid q24 -DVT prevention: SCDs. SQH 5000 q12hr SKIN Left heel blister Sacral decubitus ulcer stage I -Continue Multi-Podus boots, wound care following - Continue wrist splints alternating sides daily Wound care evaluate and treat LINES -PIVs level 3 German Marinelli MD Sep 06, 2016 17:40 German Marinelli MD Sep 06, 2016 17:40 German Marinelli MD Sep 06, 2016 17:40
[2016-09-06] MEDS: RESP: SODIUM CHLORIDE 3% 4 ML NEB NEB SCH ×2 (17:45→19:39)
[2016-09-06] MEDS: guaiFENesin SOLUTION 200 MG/10 ML CUP PO SCH ×2 (17:45→20:20)
--- NOTE | 2016-09-06 17:48 | RADRPT ---
EXAM DATE/TIME: 09/06/2016 17:11 [facility] COMPARISON: CHEST SINGLE AP, September 02, 2016, 22:36. INDICATIONS : Shortness of breath. MEDICAL HISTORY : Hypertension. SURGICAL HISTORY : Tracheostomy. ENCOUNTER: Subsequent ACUITY: 4 - 6 days PAIN SCORE: Non-responsive. LOCATION: Bilateral chest FINDINGS: Tracheotomy in place. There is some patchy areas of interstitial infiltrate in the lower lungs bilat erally without focal consolidation. Both hemidiaphragms are well delineated. The heart is normal si ze. CONCLUSION: Non-consolidative interstitial infiltrates both lower lungs. Henri Lane MD on September 06, 2016 at 17:46 Board Certified Radiologist. This report was verified electronically.
[2016-09-06 18:49] LABS: BLOOD GAS BASE EXCESS -4.2 mmol/L (-2-2); BLOOD GAS HCO3 19 mmol/L (22-26); BLOOD GAS METHEMOGLOBIN 1.2 % (0-2); BLOOD GAS O2 HGB SATURATION 94 % (90-100); BLOOD GAS OXYGEN CONTENT 11.1 Vol % (12.0-20.0); BLOOD GAS PCO2 26 mmHg (38-42); BLOOD GAS PO2 86 mmHg (61-120); BLOOD GAS TOTAL HGB 8.3 G/DL (12.0-16.0); CRITICAL VALUE NO; OXYGEN DEVICE VENTILATOR; TEMP CORR TO 98.6
[2016-09-06 18:50] LABS: DRAW SITE LT RADIAL; FIO2 40 %; NUMBER OF ARTERIAL PUNCTURES 2; ULNAR PULSE PRESENT
[2016-09-06 18:51] LABS: STAT NO
[2016-09-06] MEDS: MEROPENEM INJ 1,000 MG in SODIUM CHLORIDE 0.9% INJ 100 ML IV SCH (18:51)
[2016-09-06] MEDS: POTASSIUM PHOSPHATE/SODIUM PHOSPHATE 250 MG TAB PO SCH (18:52)
[2016-09-06] MEDS: CHLORHEXIDINE 0.12% (ORAL KIT) 15 ML CUP MT SCH (20:21)
[2016-09-07] VITALS (18 sets, daily range): BP systolic 97–116; BP diastolic 52–57; PULSE 90–99; RESP 12–36; TEMP 97–102.2; O2SAT 94–100
[2016-09-07] MEDS: INSULIN NovoLIN REGULAR SUPPLEMENTAL SCALE SQ SCH ×6 (01:11→20:24)
[2016-09-07] MEDS: MEROPENEM INJ 1,000 MG in SODIUM CHLORIDE 0.9% INJ 100 ML IV SCH ×3 (01:11→17:38)
[2016-09-07] MEDS: POTASSIUM PHOSPHATE/SODIUM PHOSPHATE 250 MG TAB PO SCH ×3 (01:12→11:39)
[2016-09-07] MEDS: HEPARIN SODIUM - SQ 10,000 UNITS/ML VIAL SQ SCH ×2 (01:12→11:37)
[2016-09-07] MEDS: RESP: SODIUM CHLORIDE 3% 4 ML NEB NEB SCH ×4 (03:29→19:28)
[2016-09-07] MEDS: RESP: ALBUTEROL 2.5 MG/IPRATROPIUM 0.5 MG NEB (SCH) INH ×4 (03:29→19:28)
[2016-09-07] MEDS: CHLORHEXIDINE GLUCONATE 2 % 1 PACK (2 CLOTHS) TOP SCH (04:00)
--- NOTE | 2016-09-07 05:02 | RADRPT ---
EXAM DATE/TIME: 09/07/2016 03:08 [facility] COMPARISON: No previous studies available for comparison. INDICATIONS : Shortness of breath, possible pulmonary disease. MEDICAL HISTORY : Hypertension. SURGICAL HISTORY : Tracheostomy ENCOUNTER: Subsequent ACUITY: 1 week PAIN SCORE: Non-responsive. LOCATION: Bilateral chest FINDINGS: A single view of the chest demonstrates mild diffuse interstitial prominence right slightly greater t nicole left, unchanged. The cardiomediastinal contours are unremarkable. Osseous structures are intact . CONCLUSION: Stable examination with mild diffuse interstitial prominence right greater the left. Tracheostomy tub e in good position Jai Webster MD on September 07, 2016 at 5:00 Board Certified Radiologist. This report was verified electronically.
[2016-09-07] MEDS: FREE WATER G-TUBE SCH ×4 (06:00→17:44)
[2016-09-07 06:40] LABS: AUTOMATED NEUTROPHIL # 4.5 TH/MM3 (1.8-7.7); BASOPHIL % 0.4 % (0.0-2.0); EOSINOPHIL # 0.1 TH/MM3 (0-0.4); EOSINOPHIL % 0.8 % (0.0-4.0); HEMATOCRIT 23.8 % (39.0-51.0); LYMPH % 22.6 % (9.0-44.0); LYMPHOCYTE # 1.5 TH/MM3 (1.0-4.8); MEAN CELL VOLUME 85.8 FL (80.0-100.0); MEAN CORPUSCULAR HEMOGLOBIN 29.1 PG (27.0-34.0); MEAN CORPUSCULAR HGB CONC 33.9 % (32.0-36.0); MONO % 6.8 % (0.0-8.0); NEUT % 69.4 % (16.0-70.0); PLATELET COUNT 83 TH/MM3 (150-450); RED BLOOD COUNT 2.77 MIL/MM3 (4.50-5.90); RED CELL DISTRIBUTION WIDTH 17.7 % (11.6-17.2); WHITE BLOOD COUNT 6.6 TH/MM3 (4.0-11.0)
[2016-09-07] MEDS: guaiFENesin SOLUTION 200 MG/10 ML CUP PO SCH ×3 (06:40→22:09)
[2016-09-07 07:02] LABS: HEMO FLAGS AUTO DIFF
[2016-09-07 07:07] LABS: ALKALINE PHOSPHATASE 57 U/L (45-117); ALT (GPT) 41 U/L (12-78); ANION GAP 7 MEQ/L (5-15); AST (GOT) 43 U/L (15-37); BICARBONATE 23.1 MEQ/L (21.0-32.0); BLOOD UREA NITROGEN 17 MG/DL (7-18); CHLORIDE 115 MEQ/L (98-107); GLOMERULAR FILTRATION RATE 67 ML/MIN (>89); MAGNESIUM 2.6 MG/DL (1.5-2.5); POTASSIUM 3.4 MEQ/L (3.5-5.1); SODIUM (NA) 145 MEQ/L (136-145); TOTAL BILIRUBIN ADULT 0.5 MG/DL (0.2-1.0)
[2016-09-07 07:47] LABS: BANDS 10 % (0-6); CORRECTED NUCLEATED RBC 1 /100 WBC (0-0); EOSINOPHILS 1 % (0-4); NEUTROPHIL # MANUAL DIFF 5.3 TH/MM3 (1.8-7.7); POLYS (SEG NEUTROPHILS) 69 % (16-70); PROMYELOCYTES 1 % (0-0); WBC DIFF SAMPLE 100
[2016-09-07 07:48] LABS: PLATELET ESTIMATE SMEAR LOW (NORMAL); SCAN/DIFF FINAL DIFF MANUAL
[2016-09-07 07:49] LABS: PLATELET MORPHOLOGY ENLARGED (NORMAL)
[2016-09-07] MEDS: DOCUSATE SODIUM 50 MG/SENNA 8.6 MG TAB PO SCH ×2 (08:44→20:23)
[2016-09-07] MEDS: FAMOTIDINE 20 MG TAB NG SCH (08:46)
[2016-09-07] MEDS: SODIUM CHLORIDE 0.9% FLUSH 10 ML FLUSH IV FLUSH SCH ×2 (08:46→20:24)
[2016-09-07] MEDS: MODAFINIL 200 MG TAB PO SCH (08:46)
[2016-09-07] MEDS: INSULIN DETEMIR 100 UNITS/ML VIAL SQ SCH ×2 (08:46→20:24)
[2016-09-07] MEDS: CHLORHEXIDINE 0.12% (ORAL KIT) 15 ML CUP MT SCH ×2 (08:47→20:24)
[2016-09-07] MEDS ORDERED: MAGNESIUM SULFATE INJ 2 GM in SODIUM CHLORIDE 0.9% INJ 96 ML IV PRN (11:00)
[2016-09-07] MEDS ORDERED: POTASSIUM CHLORIDE 25 MEQ EFFERVESCENT TAB PO PRN (11:00)
[2016-09-07] MEDS ORDERED: POTASSIUM CHLOR 40 MEQ PREMIX 100 ML IV PRN ×2 (11:00)
[2016-09-07] MEDS ORDERED: POTASSIUM PHOSPHATE INJ 30 MMOL in SODIUM CHLOR 0.9% 250 ML INJ 250 ML IV PRN (11:00)
[2016-09-07] MEDS ORDERED: POTASSIUM CHLOR 20 MEQ PREMIX 100 ML IV PRN ×2 (11:00)
[2016-09-07] MEDS ORDERED: MAGNESIUM OXIDE 400 MG TAB PO PRN (11:00)
[2016-09-07] MEDS ORDERED: POTASSIUM PHOSPHATE MONOBASIC 500 MG TAB PO/TUBE PRN (11:00)
[2016-09-07] MEDS ORDERED: MAGNESIUM SULFATE INJ 4 GM in SODIUM CHLORIDE 0.9% INJ 92 ML IV PRN (11:00)
--- NOTE | 2016-09-07 11:07 | HHI.CCPN ---
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 He is well-known to me and I have taken care of him during his 2-month prior ICU admission with us. He has a history if dementia, DM, and chronic respiratory failure requiring tracheostomy. [facility]. However, on evaluation in the ER, he was found to be tachycardic , diaphoretic. He had a serum Na 160, glucose of 600, Cr 3 (baseline around 1), lactate of 3.0, wbc 17. He was febrile as well. CXR appears clear and u/a clean. Unfortunately, the patient is unable to provide any additional history given his chronic medical state. The remainder of the history is based on my prior knowledge of the patient and chart review. I evaluated the patient in the emergency department. 09/03: Afebrile. On T piece. No acute issues overnight. Creatinine slowly correcting. 09/04: Currently resting in bed at baseline neurologic valladares. Creatinine slowly correcting. Sodium slowly correcting. Positive BM. Afebrile. 09/05: Currently on TPs. Attempt to switch to trach collar. Sodium and creatinine are cracking. At baseline neurologic valladares. Positive BM. Tolerating tube feeding. Subjective 09/06: Noted increasing O2 request up-to-date. Thick greenish secretions. X- ray revealed no acute spines. Possibly mucus plugging. We'll place on ventilator short-term. Add hypertonic saline nebs. Neurologically baseline. 09/07: Continues to be tachypneic on CPAP, rate 30-35. CXR mild diffuse interstitial infiltrates. K 3.4. No improvement in neuro status Objective Vital Signs Date Time Temp Pulse Resp B/P Pulse Ox O2 Delivery O2 Flow Rate FiO2 09/07/16 10:35 98 T-piece 40 09/07/16 06:00 92 09/07/16 04:00 99.4 20 98/55 09/06/16 10:12 6.00 Intake and Output 09/06/16 09/06/16 09/07/16 08:00 16:00 00:00 Intake Total 1042 ml 990 ml 1736 ml Output Total 600 ml 700 ml 1400 ml Balance 442 ml 290 ml 336 ml Result Diagram: 09/07/16 0609/07/16 06 Other Results Laboratory Tests Test 09/06/16 09/06/16 13:55 18:39 Blood Gas Puncture Site LT RADIAL LT RADIAL Blood Gas Patient Temperature 98.6 98.6 Blood Gas HCO3 18 mmol/L 19 mmol/L (22-26) (22-26) Blood Gas Base Excess -4.0 mmol/L -4.2 mmol/L (-2-2) (-2-2) Blood Gas Oxygen Saturation 82 % (90-100) 94 % (90-100) Arterial Blood pH 7.54 7.47 (7.380-7.420) (7.380-7.420) Arterial Blood Partial 21 mmHg (38-42) 26 mmHg (38-42) Pressure CO2 Arterial Blood Partial 48 mmHg 86 mmHg Pressure O2 (61-120) (61-120) Arterial Blood Oxygen Content 11.8 Vol % 11.1 Vol % (12.0-20.0) (12.0-20.0) Arterial Blood 2.0 % (0-4) 2.0 % (0-4) Carboxyhemoglobin Arterial Blood Methemoglobin 1.2 % (0-2) 1.2 % (0-2) Blood Gas Hemoglobin 10.2 G/DL 8.3 G/DL (12.0-16.0) (12.0-16.0) Oxygen Delivery Device MASK VENTILATOR Blood Gas Liter Flow 5 L/M Blood Gas Inspired Oxygen 35 % 40 % Blood Gas Ventilator Setting Imaging Last Impressions Abdomen Ultrasound 09/03/16 0000 Signed Impressions: Service Date/Time: Saturday, September 03, 2016 15:21 - CONCLUSION: 1. No acute findings. Exam somewhat limited by overlying bowel gas. Mina Varghese MD Chest X-Ray 09/02/16 9917 Signed Impressions: Service Date/Time: Friday, September 02, 2016 22:36 - CONCLUSION: 1. Cardiomegaly. No acute pulmonary disease. Rachid Lopez MD Objective Remarks GENERAL: 80 yo male patient, critically ill, currently on T piece about to convert to ventilator HEAD: Normocephalic. EYES: PERRL. No scleral icterus. No scleral edema. Some drainage from right eye. NECK: Supple, trachea midline. No JVD. tracheostomy in place without erythema or bleeding. CARDIOVASCULAR: RRR. S1, S2. No S4. No murmur RESPIRATORY: Transmitted upper airway sounds clear with suctioning tracheostomy. Few crackles appreciated in the bases bilaterally. Symmetrical excursion. GASTROINTESTINAL: Abdomen soft, non-tender, nondistended. PEG tube is in place above the umbilicus very little erythema. MUSCULOSKELETAL: contracted bilateral upper and lower extremity.. With trace nonpitting peripheral upper and lower extremity edema. : No scrotal edema. Neuro: Opens eyes spontaneously. does not follow commands. extends LUE, withdraws x 3. Skin: Stage II-III decubitus ulcer coccyx 2 cm x 2 cm and healing ulcer left heel A/P Assessment and Plan NEUROLOGY/PSYCH Alzheimer's dementia Hypoactive delirium Depression/anxiety -Acetaminophen for fever/Dilaudid as needed for pain management. -Monitor neuro status. -Continue Provigil 400 mg daily in attempt increased alertness. Has been on this since 06/25/16 with minimal improvement -Limit sedation PULMONARY Acute on chronic respiratory failure -Continue T piece as tolerated -HOB at 30 degrees -S/p #8 Shiley percutaneous trach 06/13. (Dr. Morataya/Dr. Dai). Downsized to a # 6 Shiley DFEN 08/05 -DuoNeb q6h and q2h prn. -Hypertonic saline every 65 days mucolytic along with guaifenesin 400 every 8 5 days CARDIOVASCULAR History of Hypertension -Currently not requiring antihypertensives and/or vasopressors. -Telemetry will be continued -Continue free water to 200cc q6hr. GASTROENTEROLOGY Failure to thrive Gastroesophageal reflux disease Severe acute protein calorie malnutrition- severe Hypo-albuminemia Elevated transaminases -TF to goal as tolerated with Glucerna 1.5 goal of 50 cc an hour -On Pepcid.for GI prophylaxis -PeriColace twice a day for bowel regimen RENAL//FEN: Acute kidney injury Hypernatremia Hyperchloridemia Hypophosphatemia BPH Continue to Monitor renal function, Received Neutra-Phos 1 tablet every 6 hours 4 dosages Replace electrolytes as clinically indicated, place on electrolytes Renal/abdominal ultrasound revealed no hydronephrosis. INFECTION DISEASE History of E. Cloacae UTI History of MRSA in sputum, colonized History of Klebsiella in sputum, colonized Funguria with history of tropicalis and glabrata Inf disease placed on on Merrem day #2. 1 dose of ertapenem yesterday. Previously on Zosyn 3 days with 1 dose of vancomycin Pertinent cultures 06/04 - urine - E. Cloacae 06/16 - sputum - Alla Tropicalis 06/27 blood - Staph Epi (1/2 bottles) 06/28 urine - alla glabrata 06/28 sputum - Klebsiella (intermediate to zosyn), MRSA 07/12 sputum - MRSA 07/18 sputum - MRSA, Klebsiella 07/21 sputum -MRSA, Klebsiella 07/21 blood -no growth for 2 days 07/21 urine -Alla glabrata 09/02 - blood cultures 2 -route for coag negative staph 09/02: urine - Proteus, Klebsiella ESBL positive 09/03 -sputum-Pseudomonas, Proteus and gram-negative michael Influenza negative. ID for antibiotic recommendations. Previously on suppressive Bactrim twice a day HEMATOLOGY History of Normocytic anemia Leukocytosis Thrombocytopenia -Currently no indication for transfusion of blood proximally at this time -Hemoccult stool was negative -Transfuse if hemoglobin below 7. ENDOCRINOLOGY: Hyperglycemia of critical illness Currently on Levemir 15 units twice a day. Sliding Scale insulin with Accu-Cheks every 4 hours maintain euglycemia. 1 PROPHYLAXIS -GI prophylaxis-Pepcid q24 -DVT prevention: SCDs. SQH 5000 q12hr SKIN Left heel blister Sacral decubitus ulcer stage I -Continue Multi-Podus boots, wound care following - Continue wrist splints alternating sides daily Wound care evaluate and treat LINES -PIVs level 3 Reno Vega MD Sep 07, 2016 11:07
[2016-09-07] MEDS: POTASSIUM PHOSPHATE MONOBASIC 500 MG TAB PO PRN (11:39)
--- NOTE | 2016-09-07 13:46 | RADRPT ---
EXAM DATE/TIME: 09/07/2016 09:28 [facility] COMPARISON: No previous studies available for comparison. INDICATIONS : Evaluate for DVT. MEDICAL HISTORY : Alzheimer's. Hypertension. Benign prostatic hyperplasia, (BPH) Syncope. Dementia. RESP MRSA. Dyspnea. Constipation. SURGICAL HISTORY : Prostatectomy. Tracheostomy. ENCOUNTER: Initial ACUITY: 1 day PAIN SCORE: Non-responsive LOCATION: Left Arm FINDINGS: There is spontaneous flow documented in the brachial, basilic, axillary, and subclavian veins. There is thrombus within the cephalic vein from mid to lower portion. CONCLUSION: Cephalic vein thrombosis. Acosta Da Silva MD on September 07, 2016 at 13:43 Board Certified Radiologist. This report was verified electronically.
[2016-09-07] MEDS: ACETAMINOPHEN 325 MG TAB PO PRN (16:07)
[2016-09-08] VITALS (17 sets, daily range): BP systolic 110–136; BP diastolic 56–82; PULSE 87–108; RESP 24–40; TEMP 99.2–102.2; O2SAT 99–100
[2016-09-08] MEDS: ACETAMINOPHEN 325 MG TAB PO PRN ×2 (00:22→08:52)
[2016-09-08] MEDS: MEROPENEM INJ 1,000 MG in SODIUM CHLORIDE 0.9% INJ 100 ML IV SCH ×3 (02:35→18:00)
[2016-09-08] MEDS: CHLORHEXIDINE GLUCONATE 2 % 1 PACK (2 CLOTHS) TOP SCH (04:00)
[2016-09-08] MEDS: RESP: SODIUM CHLORIDE 3% 4 ML NEB NEB SCH ×4 (04:00→22:00)
[2016-09-08] MEDS: RESP: ALBUTEROL 2.5 MG/IPRATROPIUM 0.5 MG NEB (SCH) INH ×4 (04:00→20:35)
[2016-09-08] MEDS: INSULIN NovoLIN REGULAR SUPPLEMENTAL SCALE SQ SCH ×6 (04:35→22:52)
[2016-09-08] MEDS: FREE WATER G-TUBE SCH ×5 (06:00→22:57)
[2016-09-08] MEDS: guaiFENesin SOLUTION 200 MG/10 ML CUP PO SCH ×3 (06:12→22:53)
[2016-09-08] MEDS: CHLORHEXIDINE 0.12% (ORAL KIT) 15 ML CUP MT SCH ×2 (08:00→22:51)
[2016-09-08] MEDS: INSULIN DETEMIR 100 UNITS/ML VIAL SQ SCH ×2 (08:51→22:54)
[2016-09-08] MEDS: SODIUM CHLORIDE 0.9% FLUSH 10 ML FLUSH IV FLUSH SCH ×2 (08:53→22:52)
[2016-09-08] MEDS: DOCUSATE SODIUM 50 MG/SENNA 8.6 MG TAB PO SCH ×2 (08:53→22:53)
[2016-09-08] MEDS: MODAFINIL 200 MG TAB PO SCH (08:53)
[2016-09-08] MEDS: FAMOTIDINE 20 MG TAB NG SCH (08:53)
[2016-09-08] MEDS: HEPARIN SODIUM - SQ 10,000 UNITS/ML VIAL SQ SCH ×3 (12:55→22:54)
--- NOTE | 2016-09-08 13:12 | HHI.CCPN ---
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 He is well-known to me and I have taken care of him during his 2-month prior ICU admission with us. He has a history if dementia, DM, and chronic respiratory failure requiring tracheostomy. He was sent from the residential for evaluation of hyperglycemia. However, on evaluation in the ER, he was found to be tachycardic , diaphoretic. He had a serum Na 160, glucose of 600, Cr 3 (baseline around 1), lactate of 3.0, wbc 17. He was febrile as well. CXR appears clear and u/a clean. Unfortunately, the patient is unable to provide any additional history given his chronic medical state. The remainder of the history is based on my prior knowledge of the patient and chart review. I evaluated the patient in the emergency department. 09/03: Afebrile. On T piece. No acute issues overnight. Creatinine slowly correcting. 09/04: Currently resting in bed at baseline neurologic valladares. Creatinine slowly correcting. Sodium slowly correcting. Positive BM. Afebrile. 09/05: Currently on TPs. Attempt to switch to trach collar. Sodium and creatinine are cracking. At baseline neurologic valladares. Positive BM. Tolerating tube feeding. Subjective 09/06: Noted increasing O2 request up-to-date. Thick greenish secretions. X- ray revealed no acute spines. Possibly mucus plugging. We'll place on ventilator short-term. Add hypertonic saline nebs. Neurologically baseline. 09/07: Continues to be tachypneic on CPAP, rate 30-35. CXR mild diffuse interstitial infiltrates. K 3.4. No improvement in neuro status 09/08: On TP, tachypneic. Fever 102, ID following. Increased ETT secretions. No change in neuro status Objective Vital Signs Date Time Temp Pulse Resp B/P Pulse Ox O2 Delivery O2 Flow Rate FiO2 09/08/16 13:00 103 09/08/16 09:52 20 09/08/16 08:18 99 T-piece 40 09/08/16 08:00 102.0 120/56 09/06/16 10:12 6.00 Intake and Output 09/07/16 09/07/16 09/08/16 08:00 16:00 00:00 Intake Total 661 ml 1157 ml 793 ml Output Total 550 ml 975 ml 950 ml Balance 111 ml 182 ml -157 ml Result Diagram: 09/07/16 0603 09/07/16 2226 Imaging Last Impressions Abdomen Ultrasound 09/03/16 0000 Signed Impressions: Service Date/Time: Saturday, September 03, 2016 15:21 - CONCLUSION: 1. No acute findings. Exam somewhat limited by overlying bowel gas. Mina Varghese MD Chest X-Ray 09/02/16 2216 Signed Impressions: Service Date/Time: Friday, September 02, 2016 22:36 - CONCLUSION: 1. Cardiomegaly. No acute pulmonary disease. Rachid Lopez MD Objective Remarks GENERAL: 80 yo male patient, critically ill, currently on T piece slightly tachypneic HEAD: Normocephalic. EYES: PERRL. No scleral icterus. No scleral edema. Drainage from right eye. NECK: Supple, trachea midline. No JVD. tracheostomy in place without erythema or bleeding. CARDIOVASCULAR: RRR. S1, S2. No S4. No murmur RESPIRATORY: Increased secretions from trach, sweeney color. Few crackles appreciated in the bases bilaterally. Symmetrical excursion. GASTROINTESTINAL: Abdomen soft, non-tender, nondistended. PEG tube is in place above the umbilicus very little erythema. MUSCULOSKELETAL: contracted bilateral upper and lower extremity.. With trace nonpitting peripheral upper and lower extremity edema. : No scrotal edema. Neuro: Opens eyes spontaneously. does not follow commands. extends LUE, withdraws x 3. Skin: Stage II-III decubitus ulcer coccyx 2 cm x 2 cm and healing ulcer left heel A/P Assessment and Plan NEUROLOGY/PSYCH Alzheimer's dementia Hypoactive delirium Depression/anxiety -Acetaminophen for fever/Dilaudid as needed for pain management. -Monitor neuro status. -Continue Provigil 400 mg daily in attempt increased alertness. On since with minimal improvement -Limit sedation PULMONARY Acute on chronic respiratory failure HCAP -Continue T piece as tolerated -HOB at 30 degrees -S/p #8 Shiley percutaneous trach 06/13. (Dr. Morataya/Dr. Dai). Downsized to a # 6 Ellie[place] DFEN 08/05 -DuoNeb q6h and q2h prn. -Hypertonic saline every 65 days mucolytic along with guaifenesin 400 every 8 5 days CARDIOVASCULAR History of Hypertension -Currently not requiring antihypertensives and/or vasopressors. -Telemetry will be continued -Continue free water to 200cc q6hr. GASTROENTEROLOGY Failure to thrive Gastroesophageal reflux disease Severe acute protein calorie malnutrition- severe Hypo-albuminemia Elevated transaminases -TF to goal as tolerated with Glucerna 1.5 goal of 50 cc an hour -On Pepcid.for GI prophylaxis -PeriColace twice a day for bowel regimen RENAL//FEN: Acute kidney injury Hypernatremia Hyperchloridemia Hypophosphatemia BPH Continue to Monitor renal function, Replace electrolytes as clinically indicated, placed on electrolyte protocol Renal/abdominal ultrasound revealed no hydronephrosis. INFECTION DISEASE HCAP with PSAE UTI with Proteus and ESBL Klebsiella New fever, sepsis History of E. 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 1 dose of ertapenem. Previously on Zosyn 3 days with 1 dose of vancomycin Give 1 dose of vanc today 09/08 for fever, send sputum, urine and blood culture Pertinent cultures 06/04 - urine - E. Cloacae 06/16 - sputum - Alla Tropicalis 06/27 blood - Staph Epi (1/2 bottles) 06/28 urine - alla glabrata 06/28 sputum - Klebsiella (intermediate to zosyn), MRSA 07/12 sputum - MRSA 07/18 sputum - MRSA, Klebsiella 07/21 sputum -MRSA, Klebsiella 07/21 blood -no growth for 2 days 07/21 urine -Alla glabrata 09/02 - blood cultures 2 -route for coag negative staph 09/02: urine - Proteus, Klebsiella ESBL positive 09/03 -sputum-Pseudomonas, Proteus and gram-negative michael Influenza negative. ID for antibiotic recommendations. Previously on suppressive Bactrim twice a day HEMATOLOGY History of Normocytic anemia Leukocytosis Thrombocytopenia -Currently no indication for transfusion of blood proximally at this time -Hemoccult stool was negative -Transfuse if hemoglobin below 7. ENDOCRINOLOGY: Hyperglycemia of critical illness Currently on Levemir 15 units twice a day. Sliding Scale insulin with Accu-Cheks every 4 hours maintain euglycemia. 1 PROPHYLAXIS -GI prophylaxis-Pepcid q24 -DVT prevention: SCDs. SQH 5000 q12hr SKIN Left heel blister Sacral decubitus ulcer stage I -Continue Multi-Podus boots, wound care following - Continue wrist splints alternating sides daily Wound care evaluate and treat LINES -PIVs level 3 CM following for LTAC placement Reno Vega MD Sep 08, 2016 13:12
[2016-09-08] MEDS ORDERED: VANCOMYCIN INJ 1,000 MG in SODIUM CHLOR 0.9% 250 ML INJ 250 ML IV ONE (14:00)
[2016-09-08] MEDS ORDERED: Vancomycin Consult Pharmacy 1 EA OTHER SCH (15:45)
[2016-09-08] MEDS: MICAFUNGIN INJ 150 MG in SODIUM CHLORIDE 0.9% INJ 100 ML IV SCH (17:00)
[2016-09-08] MEDS ORDERED: VANCOMYCIN INJ 1,250 MG in SODIUM CHLOR 0.9% 250 ML INJ 250 ML IV SCH (17:00)
[2016-09-08 18:43] LABS: BLOOD, URINE TRACE (NEG); COMMENT (UR) CULT NOT INDICATED; CULTURE IF INDICATED CULT NOT INDICATED; GLUCOSE,URINE NEG (NEG); KETONE, URINE NEG (NEG); NITRITE,URINE NEG (NEG); PH, URINE 7.5 (5.0-8.5); URINE COLOR YELLOW (YELLW/STRAW)
--- NOTE | 2016-09-08 19:56 | HHI.IDPN ---
Subjective Subjective Remarks delayed entry - pt was seen earlier today Dw RN Pt start to spike fevers up to 102 Have large amounts of secretions, thick and green tolerating Tpiece No diarrhea Antibiotics meropenem Lines no central lines Allergies: Coded Allergies: *MDRO Multi-Drug Resistant Organism (Verified Adverse Reaction, Unknown, ) MRSA (sputum) - 06/28/16, 07/12/16, 07/21/16 MRSA PCR Screen POSITIVE - 09/03/2016 ESBL K. pneumoniae (urine) - 09/02/16 Objective . Vital Signs Date Time Temp Pulse Resp B/P Pulse Ox O2 Delivery O2 Flow Rate FiO2 09/08/16 18:00 95 09/08/16 16:00 87 09/08/16 16:00 99.7 100 25 115/78 100 09/08/16 15:02 99 09/08/16 13:00 103 09/08/16 12:33 101.1 102 26 133/82 100 09/08/16 10:00 102 09/08/16 09:52 20 09/08/16 08:18 99 T-piece 40 09/08/16 08:15 40 09/08/16 08:00 102.0 105 40 120/56 100 09/08/16 08:00 105 09/08/16 06:00 94 09/08/16 04:13 100 40 09/08/16 04:00 99.2 93 25 125/57 100 09/08/16 04:00 93 09/08/16 02:00 92 09/08/16 00:00 102.2 102 40 136/75 100 09/08/16 00:00 102 09/07/16 23:58 100 40 09/07/16 22:00 99 09/07/16 20:36 100 40 09/07/16 20:00 97.0 94 27 111/55 100 09/07/16 20:00 94 09/07/16 09/07/16 09/08/16 15:00 23:00 07:00 Intake Total 1157 ml 793 ml 437 ml Output Total 975 ml 950 ml 700 ml Balance 182 ml -157 ml -263 ml IV Total 281 ml 105 ml 120 ml Tube Feeding 436 ml 368 ml 317 ml Tube Irrigant 240 ml 120 ml Other 200 ml 200 ml Output Urine Total 575 ml 750 ml 600 ml Stool Total 400 ml 200 ml 100 ml . Laboratory Tests Test 09/07/16 06:03 White Blood Count 6.6 TH/MM3 Red Blood Count 2.77 MIL/MM3 Hemoglobin 8.1 GM/DL Hematocrit 23.8 % Mean Corpuscular Volume 85.8 FL Mean Corpuscular Hemoglobin 29.1 PG Mean Corpuscular Hemoglobin 33.9 % Concent Red Cell Distribution Width 17.7 % Platelet Count 83 TH/MM3 Mean Platelet Volume 10.3 FL Neutrophils (%) (Auto) 69.4 % Lymphocytes (%) (Auto) 22.6 % Monocytes (%) (Auto) 6.8 % Eosinophils (%) (Auto) 0.8 % Basophils (%) (Auto) 0.4 % Neutrophils # (Auto) 4.5 TH/MM3 Lymphocytes # (Auto) 1.5 TH/MM3 Monocytes # (Auto) 0.4 TH/MM3 Eosinophils # (Auto) 0.1 TH/MM3 Basophils # (Auto) 0.0 TH/MM3 CBC Comment AUTO DIFF Differential Total Cells 100 Counted Neutrophils % (Manual) 69 % Band Neutrophils % 10 % Lymphocytes % 15 % Monocytes % 4 % Eosinophils % 1 % Neutrophils # (Manual) 5.3 TH/MM3 Promyelocytes 1 % Nucleated Red Blood Cells 1 /100 WBC Differential Comment FINAL DIFF MANUAL Platelet Estimate LOW Platelet Morphology Comment ENLARGED Laboratory Tests Test 09/07/16 09/07/16 09/07/16 06:03 13:33 22:26 Sodium Level 145 MEQ/L Potassium Level 3.4 MEQ/L 5.1 MEQ/L Chloride Level 115 MEQ/L Carbon Dioxide Level 23.1 MEQ/L Anion Gap 7 MEQ/L Blood Urea Nitrogen 17 MG/DL Creatinine 1.06 MG/DL Estimat Glomerular Filtration 67 ML/MIN Rate Random Glucose 174 MG/DL Calcium Level 8.2 MG/DL Phosphorus Level 2.1 MG/DL 2.2 MG/DL Magnesium Level 2.6 MG/DL Total Bilirubin 0.5 MG/DL Aspartate Amino Transf 43 U/L (AST/SGOT) Alanine Aminotransferase 41 U/L (ALT/SGPT) Alkaline Phosphatase 57 U/L Total Protein 6.3 GM/DL Albumin 2.3 GM/DL Microbiology Date/Time Procedure Status Source Growth 09/06/16 03:45 Gram Stain - Final Resulted Wound Buttock 09/06/16 03:45 Wound Culture - Preliminary Resulted Wound Buttock 09/08/16 14:45 Gram Stain Received Sputum Endotracheal Pending 09/08/16 14:45 Sputum Culture Received Sputum Endotracheal Pending 09/08/16 15:45 Urine Culture Received Urine Catheterized Urine Pending 09/08/16 16:10 Aerobic Blood Culture Received Blood Peripheral Pending 09/08/16 16:10 Anaerobic Blood Culture Received Blood Peripheral Pending 09/08/16 16:15 Aerobic Blood Culture Received Blood Peripheral Pending 09/08/16 16:15 Anaerobic Blood Culture Received Blood Peripheral Pending Imaging Last Impressions Chest X-Ray 09/07/16 0600 Signed Impressions: Service Date/Time: August 03:08 - CONCLUSION: Stable examination with mild diffuse interstitial prominence right greater the left. Tracheostomy tube in good position Jai Webster MD Upper Extremity Ultrasound 09/07/16 0000 Signed Impressions: Service Date/Time: August 09:28 - CONCLUSION: Cephalic vein thrombosis. KRory Da Silva MD Abdomen Ultrasound 09/03/16 0000 Signed Impressions: Service Date/Time: Saturday, September 03, 2016 15:21 - CONCLUSION: 1. No acute findings. Exam somewhat limited by overlying bowel gas. Mina Varghese MD Physical Exam CONSTITUTIONAL/GENERAL: This is an adequately nourished patient, in no apparent distress. TUBES/LINES/DRAINS: SKIN: No jaundice, rashes, or lesions. Skin temperature appropriate. Not diaphoretic. HEAD: Atraumatic. Normocephalic. EYES: Pupils equal and round and reactive. Extraocular motions intact. No scleral icterus. No injection or drainage. Fundi not examined. ENT: Nose without bleeding or purulent drainage. oral mucosae moist NECK: Trachea midline. Supple, nontender. Trach collar in place , site [place] CARDIOVASCULAR: Regular rate and rhythm without murmurs, gallops, or rubs. No JVD. Peripheral pulses symmetric. RESPIRATORY/CHEST: Symmetric, unlabored respirations. Clear to auscultation. Breath sounds equal bilaterally. No wheezes, rales, or rhonchi. GASTROINTESTINAL: Abdomen soft, non-tender, moderately distended. No hepato- splenomegaly, or palpable masses. No guarding. Bowel sounds present. Dignishild in place with liquid brown stool GENITOURINARY: Without palpable bladder distension. Mckeon catheter in place with clear yellow urine MUSCULOSKELETAL: Extremities without clubbing, cyanosis, + trace edema. No joint tenderness or effusion noted. No calf tenderness. No mottling or clubbing. LYMPHATICS: No palpable cervical or supraclavicular adenopathy. NEUROLOGICAL: awake, minimally responsive; not follows commands, no spontaneous movement s noted PSYCHIATRIC: unable to assess Assessment & Plan Remarks advanced dementia Diarrhea, ho recent abx use; C.diff negative UTI, ESBL KJleb pneumo in clx Tracheo bronchitis wo e/o PNA on CXR - colonised with multiple GNBs, New issue: high grade fever ? source ? VAP vs new UTI ve other infx or drug fever - cont meropenem - will add vanco, micafungin - chk blood , urine clx - repeat sptum clx - repeat CXR dw Dr Gary gauthier RN - Elle Cardenas MD Sep 08, 2016 19:56
[2016-09-09] VITALS (18 sets, daily range): BP systolic 97–126; BP diastolic 54–80; PULSE 95–114; RESP 20–29; TEMP 98.1–102.8; O2SAT 100
[2016-09-09] MEDS: INSULIN NovoLIN REGULAR SUPPLEMENTAL SCALE SQ SCH ×6 (00:55→20:00)
[2016-09-09] MEDS: MEROPENEM INJ 1,000 MG in SODIUM CHLORIDE 0.9% INJ 100 ML IV SCH ×3 (01:04→16:56)
[2016-09-09] MEDS: CHLORHEXIDINE GLUCONATE 2 % 1 PACK (2 CLOTHS) TOP SCH (04:00)
[2016-09-09] MEDS: RESP: SODIUM CHLORIDE 3% 4 ML NEB NEB SCH ×4 (04:00→20:17)
[2016-09-09] MEDS: RESP: ALBUTEROL 2.5 MG/IPRATROPIUM 0.5 MG NEB (SCH) INH ×4 (04:00→20:17)
[2016-09-09 05:13] LABS: AUTOMATED NEUTROPHIL # 8.3 TH/MM3 (1.8-7.7); BASOPHIL # 0.1 TH/MM3 (0-0.2); BASOPHIL % 0.6 % (0.0-2.0); EOSINOPHIL # 0.1 TH/MM3 (0-0.4); EOSINOPHIL % 0.6 % (0.0-4.0); HEMATOCRIT 24.2 % (39.0-51.0); LYMPH % 16.7 % (9.0-44.0); LYMPHOCYTE # 1.8 TH/MM3 (1.0-4.8); MEAN CELL VOLUME 84.9 FL (80.0-100.0); MEAN CORPUSCULAR HEMOGLOBIN 27.6 PG (27.0-34.0); MEAN CORPUSCULAR HGB CONC 32.5 % (32.0-36.0); MONO % 4.2 % (0.0-8.0); NEUT % 77.9 % (16.0-70.0); PLATELET COUNT 127 TH/MM3 (150-450); RED BLOOD COUNT 2.85 MIL/MM3 (4.50-5.90); RED CELL DISTRIBUTION WIDTH 17.7 % (11.6-17.2); WHITE BLOOD COUNT 10.6 TH/MM3 (4.0-11.0)
[2016-09-09 05:20] LABS: HEMO FLAGS AUTO DIFF
[2016-09-09] MEDS: FREE WATER G-TUBE SCH ×3 (05:46→16:54)
--- NOTE | 2016-09-09 05:49 | RADRPT ---
EXAM DATE/TIME: 09/09/2016 04:30 [facility] COMPARISON: CHEST SINGLE AP, September 07, 2016, 3:08. INDICATIONS : Shortness of breath, possible pulmonary disease. MEDICAL HISTORY : Hypertension. SURGICAL HISTORY : Tracheostomy ENCOUNTER: Subsequent ACUITY: 1 week PAIN SCORE: Non-responsive. LOCATION: Bilateral chest FINDINGS: A single portable frontal view the chest shows remote artifact. Interstitial prominence the right rodolfo g is stable. Left lung is clear. No effusions. Tracheostomy tube noted. Heart is normal in size. CONCLUSION: Stable interstitial opacities involving the right lung. Left lung is clear. Henri Shirley Jr., MD on September 09, 2016 at 5:46 Board Certified Radiologist. This report was verified electronically.
[2016-09-09 05:52] LABS: ALKALINE PHOSPHATASE 77 U/L (45-117); ALT (GPT) 42 U/L (12-78); ANION GAP 8 MEQ/L (5-15); AST (GOT) 48 U/L (15-37); BLOOD UREA NITROGEN 16 MG/DL (7-18); CHLORIDE 114 MEQ/L (98-107); GLOMERULAR FILTRATION RATE 83 ML/MIN (>89); POTASSIUM 4.2 MEQ/L (3.5-5.1); SODIUM (NA) 145 MEQ/L (136-145); TOTAL BILIRUBIN ADULT 0.3 MG/DL (0.2-1.0)
[2016-09-09] MEDS: guaiFENesin SOLUTION 200 MG/10 ML CUP PO SCH ×3 (05:58→21:31)
[2016-09-09] MEDS: VANCOMYCIN INJ 1,250 MG in SODIUM CHLOR 0.9% 250 ML INJ 250 ML IV SCH (08:48)
[2016-09-09] MEDS: INSULIN DETEMIR 100 UNITS/ML VIAL SQ SCH ×2 (08:48→21:32)
[2016-09-09] MEDS: SODIUM CHLORIDE 0.9% FLUSH 10 ML FLUSH IV FLUSH SCH ×2 (08:48→21:32)
[2016-09-09] MEDS: FAMOTIDINE 20 MG TAB NG SCH (08:49)
[2016-09-09] MEDS: DOCUSATE SODIUM 50 MG/SENNA 8.6 MG TAB PO SCH ×2 (08:49→21:32)
[2016-09-09] MEDS: MODAFINIL 200 MG TAB PO SCH (08:49)
[2016-09-09] MEDS: CHLORHEXIDINE 0.12% (ORAL KIT) 15 ML CUP MT SCH ×2 (08:51→21:32)
[2016-09-09 09:15] LABS: BANDS 18 % (0-6); NEUTROPHIL # MANUAL DIFF 8.7 TH/MM3 (1.8-7.7); PLASMA CELLS 1 % (0-0); PLATELET ESTIMATE SMEAR LOW (NORMAL); PLATELET MORPHOLOGY ENLARGED (NORMAL); POLYS (SEG NEUTROPHILS) 64 % (16-70); SCAN/DIFF FINAL DIFF MANUAL; WBC DIFF SAMPLE 100
[2016-09-09] MEDS: HEPARIN SODIUM - SQ 10,000 UNITS/ML VIAL SQ SCH (13:57)
--- NOTE | 2016-09-09 14:21 | HHI.CCPN ---
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 He is well-known to me and I have taken care of him during his 2-month prior ICU admission with us. He has a history if dementia, DM, and chronic respiratory failure requiring tracheostomy. He was sent from the half-way for evaluation of hyperglycemia. However, on evaluation in the ER, he was found to be tachycardic , diaphoretic. He had a serum Na 160, glucose of 600, Cr 3 (baseline around 1), lactate of 3.0, wbc 17. He was febrile as well. CXR appears clear and u/a clean. Unfortunately, the patient is unable to provide any additional history given his chronic medical state. The remainder of the history is based on my prior knowledge of the patient and chart review. I evaluated the patient in the emergency department. 09/03: Afebrile. On T piece. No acute issues overnight. Creatinine slowly correcting. 09/04: Currently resting in bed at baseline neurologic valladares. Creatinine slowly correcting. Sodium slowly correcting. Positive BM. Afebrile. 09/05: Currently on TPs. Attempt to switch to trach collar. Sodium and creatinine are cracking. At baseline neurologic valladares. Positive BM. Tolerating tube feeding. 09/06: Noted increasing O2 request up-to-date. Thick greenish secretions. X- ray revealed no acute spines. Possibly mucus plugging. We'll place on ventilator short-term. Add hypertonic saline nebs. Neurologically baseline. 09/07: Continues to be tachypneic on CPAP, rate 30-35. CXR mild diffuse interstitial infiltrates. K 3.4. No improvement in neuro status 09/08: On TP, tachypneic. Fever 102, ID following. Increased ETT secretions. No change in neuro status Subjective 09/09: Currently afebrile. Continues to have copious secretions from tracheostomy site. Failed PSV trial today. Positive BM. Tolerating tube feeding Objective Vital Signs Date Time Temp Pulse Resp B/P Pulse Ox O2 Delivery O2 Flow Rate FiO2 09/09/16 14:16 100 40 09/09/16 06:00 110 09/09/16 04:00 98.1 24 115/61 09/08/16 08:18 T-piece 09/06/16 10:12 6.00 Intake and Output 409/08/16 09/09/16 08:00 16:00 00:00 Intake Total 437 ml 672 ml 789 ml Output Total 700 ml 1050 ml 900 ml Balance -263 ml -378 ml -111 ml Result Diagram: 09/09/16 0500 09/09/16 0500 Other Results Microbiology Date/Time Procedure Status Source Growth 09/08/16 16:15 Aerobic Blood Culture - Preliminary Resulted Blood Peripheral NO GROWTH IN 1 DAY 09/08/16 16:15 Anaerobic Blood Culture - Preliminary Resulted Blood Peripheral NO GROWTH IN 1 DAY 09/08/16 15:45 Urine Culture - Preliminary Resulted Urine Catheterized Urine Yeast Species 09/08/16 14:45 Gram Stain - Final Resulted Sputum Endotracheal 09/08/16 14:45 Sputum Culture - Preliminary Resulted Gram Negative [facility] Last Impressions Chest X-Ray 09/09/16 0600 Signed Impressions: Service Date/Time: Friday, September 09, 2016 04:30 - CONCLUSION: Stable interstitial opacities involving the right lung. Left lung is clear. Henri Shirley Jr., MD Upper Extremity Ultrasound 09/07/16 0000 Signed Impressions: Service Date/Time: August 09:28 - CONCLUSION: Cephalic vein thrombosis. K. Marquis Da Silva MD Abdomen Ultrasound 09/03/16 0000 Signed Impressions: Service Date/Time: Saturday, September 03, 2016 15:21 - CONCLUSION: 1. No acute findings. Exam somewhat limited by overlying bowel gas. Mina Varghese MD Objective Remarks GENERAL: 80 yo male patient, critically ill, currently on ventilator via tracheostomy distress HEAD: Normocephalic. EYES: PERRL. No scleral icterus. No scleral edema. Drainage from right eye. NECK: Supple, trachea midline. No JVD. tracheostomy in place without erythema or bleeding. CARDIOVASCULAR: RRR. S1, S2. No S4. No murmur RESPIRATORY: Increased secretions from trach, sweeney color. Few crackles appreciated in the bases bilaterally. Symmetrical excursion. GASTROINTESTINAL: Abdomen soft, non-tender, nondistended. PEG tube is in place above the umbilicus very little erythema. MUSCULOSKELETAL: contracted bilateral upper and lower extremity.. With trace nonpitting peripheral upper and lower extremity edema. : No scrotal edema. Neuro: Opens eyes spontaneously. does not follow commands. extends LUE, withdraws x 3. Skin: Stage II-III decubitus ulcer coccyx 2 cm x 2 cm and healing ulcer left heel A/P Assessment and Plan NEUROLOGY/PSYCH Alzheimer's dementia Hypoactive delirium Depression/anxiety -Acetaminophen for fever/Dilaudid as needed for pain management. -Monitor neuro status. -Continue Provigil 400 mg daily in attempt increased alertness. On since with minimal improvement -Limit sedation PULMONARY Acute on chronic respiratory failure HCAP -Currently PRVC 14/500/1. Ventilator bundle -HOB at 30 degrees -S/p #8 Shiley percutaneous trach 06/13. (Dr. [place]at[place]/Dr. Dai). Downsized to a # 6 Shiley DFEN 08/05 -DuoNeb q6h and q2h prn. -Hypertonic saline aerosols 3% every 65 days mucolytic along with guaifenesin 400 every 85 days CARDIOVASCULAR History of Hypertension -Currently not requiring antihypertensives and/or vasopressors. -Telemetry will be continued -Continue free water to 200cc q6hr. GASTROENTEROLOGY Failure to thrive Gastroesophageal reflux disease Severe acute protein calorie malnutrition- severe Hypo-albuminemia Elevated transaminases -TF to goal as tolerated with Glucerna 1.5 goal of 50 cc an hour -On Pepcid.for GI prophylaxis -PeriColace twice a day for bowel regimen RENAL//FEN: Acute kidney injury Hypernatremia Hyperchloridemia Hypophosphatemia BPH Continue to Monitor renal function, Replace electrolytes as clinically indicated, placed on electrolyte protocol Renal/abdominal ultrasound revealed no hydronephrosis. INFECTION DISEASE HCAP with PSAE UTI with Proteus and ESBL Klebsiella New fever, sepsis History of E. 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 1 dose of ertapenem. Previously on Zosyn 3 days with 1 dose of vancomycin Micafungin, vancomycin added yesterday 09/08 Pertinent cultures 06/04 - urine - E. Cloacae 06/16 - sputum - Alla Tropicalis 06/27 blood - Staph Epi (1/2 bottles) 06/28 urine - alla glabrata 06/28 sputum - Klebsiella (intermediate to zosyn), MRSA 07/12 sputum - MRSA 07/18 sputum - MRSA, Klebsiella 07/21 sputum -MRSA, Klebsiella 07/21 blood -no growth for 2 days 07/21 urine -Alla glabrata 09/02 - blood cultures 2 -staph epi/coag negative staph 09/02: urine - Proteus, Klebsiella ESBL positive 09/03 -sputum-Pseudomonas, Proteus and gram-negative wesley 09/08 - sputum - gram-negative wesley 09/08 - blood cultures 2 - no growth 09/08 - urine - East Influenza negative. ID for antibiotic recommendations. Previously on suppressive Bactrim twice a day HEMATOLOGY History of Normocytic anemia Leukocytosis Thrombocytopenia -Currently no indication for transfusion of blood proximally at this time -Hemoccult stool was negative -Transfuse if hemoglobin below 7. ENDOCRINOLOGY: Hyperglycemia of critical illness Currently on Levemir 15 units twice a day. Sliding Scale insulin with Accu-Cheks every 4 hours maintain euglycemia. 1 PROPHYLAXIS -GI prophylaxis-Pepcid q24 -DVT prevention: SCDs. SQH 5000 q12hr SKIN Left heel blister Sacral decubitus ulcer stage I -Continue Multi-Podus boots, wound care following - Continue wrist splints alternating sides daily Wound care evaluate and treat LINES -PIVs level 3 CM following for LTAC placement German Marinelli MD Sep 09, 2016 14:21
[2016-09-09] MEDS: MICAFUNGIN INJ 150 MG in SODIUM CHLORIDE 0.9% INJ 100 ML IV SCH (16:55)
[2016-09-09] MEDS: ACETAMINOPHEN 325 MG TAB PO PRN (21:37)
[2016-09-10] VITALS (16 sets, daily range): BP systolic 105–146; BP diastolic 56–70; PULSE 96–114; RESP 17–22; TEMP 97.8–99; O2SAT 97–100
[2016-09-10] MEDS: HEPARIN SODIUM - SQ 10,000 UNITS/ML VIAL SQ SCH ×2 (00:43→12:00)
[2016-09-10] MEDS: MEROPENEM INJ 1,000 MG in SODIUM CHLORIDE 0.9% INJ 100 ML IV SCH ×3 (02:11→17:20)
[2016-09-10] MEDS: INSULIN NovoLIN REGULAR SUPPLEMENTAL SCALE SQ SCH ×6 (04:00→20:00)
[2016-09-10] MEDS: CHLORHEXIDINE GLUCONATE 2 % 1 PACK (2 CLOTHS) TOP SCH (04:00)
[2016-09-10] MEDS: RESP: SODIUM CHLORIDE 3% 4 ML NEB NEB SCH ×4 (04:09→21:20)
[2016-09-10] MEDS: RESP: ALBUTEROL 2.5 MG/IPRATROPIUM 0.5 MG NEB (SCH) INH ×4 (04:09→21:20)
[2016-09-10] MEDS: FREE WATER G-TUBE SCH ×5 (06:00→20:00)
[2016-09-10 06:09] LABS: AUTOMATED NEUTROPHIL # 7.5 TH/MM3 (1.8-7.7); BASOPHIL % 0.5 % (0.0-2.0); EOSINOPHIL # 0.1 TH/MM3 (0-0.4); EOSINOPHIL % 0.6 % (0.0-4.0); HEMATOCRIT 23.2 % (39.0-51.0); LYMPH % 17.1 % (9.0-44.0); LYMPHOCYTE # 1.6 TH/MM3 (1.0-4.8); MEAN CELL VOLUME 83.9 FL (80.0-100.0); MEAN CORPUSCULAR HEMOGLOBIN 28.4 PG (27.0-34.0); MEAN CORPUSCULAR HGB CONC 33.8 % (32.0-36.0); MONO % 3.5 % (0.0-8.0); NEUT % 78.3 % (16.0-70.0); PLATELET COUNT 142 TH/MM3 (150-450); RED BLOOD COUNT 2.76 MIL/MM3 (4.50-5.90); RED CELL DISTRIBUTION WIDTH 17.4 % (11.6-17.2); WHITE BLOOD COUNT 9.5 TH/MM3 (4.0-11.0)
[2016-09-10 06:23] LABS: BICARBONATE 23.6 MEQ/L (21.0-32.0); POTASSIUM 4.2 MEQ/L (3.5-5.1)
[2016-09-10 06:38] LABS: HEMO FLAGS AUTO DIFF
[2016-09-10] MEDS: guaiFENesin SOLUTION 200 MG/10 ML CUP PO SCH ×3 (06:44→20:39)
[2016-09-10] MEDS: CHLORHEXIDINE 0.12% (ORAL KIT) 15 ML CUP MT SCH ×3 (08:00→20:00)
[2016-09-10] MEDS: VANCOMYCIN INJ 1,250 MG in SODIUM CHLOR 0.9% 250 ML INJ 250 ML IV SCH (08:41)
--- NOTE | 2016-09-10 09:10 | HHI.IDPN ---
Subjective Subjective Remarks ID COVERAGE 81 year old male came for SNF, non verbal, contracted bedridden 2/2 advanced dementia, and has chronic trach Found to have Kleb ESBL (+) UTI Also with PSAE PNA Rx Has been having persistent fevers New C/S pending On T-piece currently, sats good, but breathing looks laboured WBC normal Has liquid stool, not a lot of volume Have large amounts of secretions, thick and green Antibiotics Meropenem Micafungin Vancomycin Lines no central lines Past Medical History Reviewed Allergies: Coded Allergies: *MDRO Multi-Drug Resistant Organism (Verified Adverse Reaction, Unknown, ) MRSA (sputum) - 06/28/16, 07/12/16, 07/21/16 MRSA PCR Screen POSITIVE - 09/03/2016 ESBL K. pneumoniae (urine) - 09/02/16 Objective . Vital Signs Date Time Temp Pulse Resp B/P Pulse Ox O2 Delivery O2 Flow Rate FiO2 09/10/16 08:35 97 T-piece 8.00 40 09/10/16 06:00 96 09/10/16 04:00 108 09/10/16 04:00 97.8 108 20 146/70 100 09/10/16 02:00 106 09/10/16 01:05 100 40 09/10/16 00:00 114 09/10/16 00:00 99.0 114 20 116/63 100 09/09/16 22:00 113 09/09/16 20:32 100 40 09/09/16 20:00 102.8 104 20 118/56 100 09/09/16 20:00 104 09/09/16 18:40 100 40 09/09/16 18:00 113 09/09/16 16:00 98.9 95 20 97/54 100 09/09/16 16:00 95 09/09/16 14:16 100 40 09/09/16 14:00 98 09/09/16 12:00 99.1 108 29 108/54 100 09/09/16 12:00 108 09/09/16 10:00 109 09/09/16 09/09/16 09/10/16 15:00 23:00 07:00 Intake Total 1181 ml 929 ml 1334 ml Output Total 500 ml 600 ml 400 ml Balance 681 ml 329 ml 934 ml Intake Oral 0 ml 0 ml IV Total 623 ml 195 ml 131 ml Tube Feeding 358 ml 734 ml 803 ml Other 200 ml 0 ml 400 ml Output Urine Total 500 ml 500 ml 300 ml Stool Total 100 ml 100 ml . Laboratory Tests Test 09/09/16 09/10/16 05:00 04:52 White Blood Count 10.6 TH/MM3 9.5 TH/MM3 Red Blood Count 2.85 MIL/MM3 2.76 MIL/MM3 Hemoglobin 7.9 GM/DL 7.8 GM/DL Hematocrit 24.2 % 23.2 % Mean Corpuscular Volume 84.9 FL 83.9 FL Mean Corpuscular Hemoglobin 27.6 PG 28.4 PG Mean Corpuscular Hemoglobin 32.5 % 33.8 % Concent Red Cell Distribution Width 17.7 % 17.4 % Platelet Count 127 TH/MM3 142 TH/MM3 Mean Platelet Volume 9.6 FL 9.3 FL Neutrophils (%) (Auto) 77.9 % 78.3 % Lymphocytes (%) (Auto) 16.7 % 17.1 % Monocytes (%) (Auto) 4.2 % 3.5 % Eosinophils (%) (Auto) 0.6 % 0.6 % Basophils (%) (Auto) 0.6 % 0.5 % Neutrophils # (Auto) 8.3 TH/MM3 7.5 TH/MM3 Lymphocytes # (Auto) 1.8 TH/MM3 1.6 TH/MM3 Monocytes # (Auto) 0.4 TH/MM3 0.3 TH/MM3 Eosinophils # (Auto) 0.1 TH/MM3 0.1 TH/MM3 Basophils # (Auto) 0.1 TH/MM3 0.0 TH/MM3 CBC Comment AUTO DIFF AUTO DIFF Differential Total Cells 100 Counted Neutrophils % (Manual) 64 % Band Neutrophils % 18 % Lymphocytes % 15 % Monocytes % 2 % Neutrophils # (Manual) 8.7 TH/MM3 Differential Comment FINAL DIFF MANUAL Atypical Lymphocytes % Plasma Cells 1 % Platelet Estimate LOW Platelet Morphology Comment ENLARGED Laboratory Tests Test 09/09/16 09/10/16 05:00 04:52 Sodium Level 145 MEQ/L 146 MEQ/L Potassium Level 4.2 MEQ/L 4.2 MEQ/L Chloride Level 114 MEQ/L 113 MEQ/L Carbon Dioxide Level 23.0 MEQ/L 23.6 MEQ/L Anion Gap 8 MEQ/L 9 MEQ/L Blood Urea Nitrogen 16 MG/DL 19 MG/DL Creatinine 0.88 MG/DL 0.85 MG/DL Estimat Glomerular Filtration 83 ML/MIN 86 ML/MIN Rate Random Glucose 173 MG/DL 157 MG/DL Calcium Level 9.1 MG/DL 9.5 MG/DL Total Bilirubin 0.3 MG/DL Aspartate Amino Transf 48 U/L (AST/SGOT) Alanine Aminotransferase 42 U/L (ALT/SGPT) Alkaline Phosphatase 77 U/L Total Protein 6.9 GM/DL Albumin 2.0 GM/DL Microbiology Date/Time Procedure Status Source Growth 09/08/16 14:45 Gram Stain - Final Resulted Sputum Endotracheal 09/08/16 14:45 Sputum Culture - Preliminary Resulted Gram Negative [facility] 09/08/16 15:45 Urine Culture - Preliminary Resulted Urine Catheterized Urine Yeast Species 09/08/16 16:10 Aerobic Blood Culture - Preliminary Resulted Blood Peripheral NO GROWTH IN 1 DAY 09/08/16 16:10 Anaerobic Blood Culture - Preliminary Resulted Blood Peripheral NO GROWTH IN 1 DAY 09/08/16 16:15 Aerobic Blood Culture - Preliminary Resulted Blood Peripheral NO GROWTH IN 1 DAY 09/08/16 16:15 Anaerobic Blood Culture - Preliminary Resulted Blood Peripheral NO GROWTH IN 1 DAY Imaging Chest X-Ray 09/09/16 0600 Signed Impressions: Service Date/Time: Friday, September 09, 2016 04:30 - CONCLUSION: Stable interstitial opacities involving the right lung. Left lung is clear. Henri Shirley Jr., MD Chest X-Ray 09/07/16 0600 Signed Impressions: Service Date/Time: August 03:08 - CONCLUSION: Stable examination with mild diffuse interstitial prominence right greater the left. Tracheostomy tube in good position Jai Webster MD Upper Extremity Ultrasound 09/07/16 0000 Signed Impressions: Service Date/Time: August 09:28 - CONCLUSION: Cephalic vein thrombosis. K. Marquis Da Silva MD Abdomen Ultrasound 09/03/16 0000 Signed Impressions: Service Date/Time: Saturday, September 03, 2016 15:21 - CONCLUSION: 1. No acute findings. Exam somewhat limited by overlying bowel gas. Mina Varghese MD Physical Exam CONSTITUTIONAL/GENERAL: Not responding, on T-piece, breathing looks laboured, but has good sats SKIN: No jaundice, rashes, or lesions. Warm and dry HEAD: Atraumatic. Normocephalic. EYES: Pupils equal and round and reactive. No scleral icterus. No injection or drainage. ENT: Nose without bleeding or purulent drainage. oral mucosae moist NECK: Trachea midline. Supple, nontender. Trach collar in place , site [place] CARDIOVASCULAR: Regular rate and rhythm without murmurs, gallops, or rubs. RESPIRATORY/CHEST: Clear to auscultation. Decreased R GASTROINTESTINAL: Abdomen soft, no reaction to palpation. Distended. Bowel sounds present. Dignishield in place with liquid brown stool GENITOURINARY: Without palpable bladder distension. Mckeon catheter in place with clear yellow urine MUSCULOSKELETAL: Extremities without clubbing, cyanosis, + trace pedal edema. No joint effusion noted. No mottling. NEUROLOGICAL: Not responding PSYCHIATRIC: unable to assess LINE no evidence of infection Assessment & Plan Remarks UTI, ESBL KJleb pneumo in clx PSAE PNA, vs tracheobronchitis Fevers - ? source ? VAP vs new UTI ve other infx or drug fever Respiratory failure, has chronic trach - currently on T-piece, but breathing looks laboured or unusual Advanced Dementia Diarrhea, ho recent abx use; C.diff negative PLAN Continue Meropenem Continue Vancom IV Continue Micafungin Follow new C/S - adjust once C/S available Follow temps Monitor progress Tania Smith MD Sep 10, 2016 09:10
[2016-09-10 09:27] LABS: BANDS 7 % (0-6); EOSINOPHILS 1 % (0-4); NEUTROPHIL # MANUAL DIFF 7.3 TH/MM3 (1.8-7.7); POLYS (SEG NEUTROPHILS) 70 % (16-70); WBC DIFF SAMPLE 100
[2016-09-10 09:29] LABS: PLATELET ESTIMATE SMEAR LOW (NORMAL); PLATELET MORPHOLOGY NORMAL (NORMAL); SCAN/DIFF FINAL DIFF MANUAL
--- NOTE | 2016-09-10 09:49 | HHI.CCPN ---
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 He is well-known to me and I have taken care of him during his 2-month prior ICU admission with us. He has a history if dementia, DM, and chronic respiratory failure requiring tracheostomy. He was sent from the skilled nursing for evaluation of hyperglycemia. However, on evaluation in the ER, he was found to be tachycardic , diaphoretic. He had a serum Na 160, glucose of 600, Cr 3 (baseline around 1), lactate of 3.0, wbc 17. He was febrile as well. CXR appears clear and u/a clean. Unfortunately, the patient is unable to provide any additional history given his chronic medical state. The remainder of the history is based on my prior knowledge of the patient and chart review. I evaluated the patient in the emergency department. 09/03: Afebrile. On T piece. No acute issues overnight. Creatinine slowly correcting. 09/04: Currently resting in bed at baseline neurologic valladares. Creatinine slowly correcting. Sodium slowly correcting. Positive BM. Afebrile. 09/05: Currently on TPs. Attempt to switch to trach collar. Sodium and creatinine are cracking. At baseline neurologic valladares. Positive BM. Tolerating tube feeding. 09/06: Noted increasing O2 request up-to-date. Thick greenish secretions. X- ray revealed no acute spines. Possibly mucus plugging. We'll place on ventilator short-term. Add hypertonic saline nebs. Neurologically baseline. 09/07: Continues to be tachypneic on CPAP, rate 30-35. CXR mild diffuse interstitial infiltrates. K 3.4. No improvement in neuro status 09/08: On TP, tachypneic. Fever 102, ID following. Increased ETT secretions. No change in neuro status 09/09: Currently afebrile. Continues to have copious secretions from tracheostomy site. Failed PSV trial today. Positive BM. Tolerating tube feeding Subjective 09/10: Tmax 102.8. Currently 97.8. Tolerating tube feeds. Currently a PSV trial / at 40%. Transition of TP today. Start vancomycin and micafungin yesterday per ID. Objective Vital Signs Date Time Temp Pulse Resp B/P Pulse Ox O2 Delivery O2 Flow Rate FiO2 09/10/16 08:35 97 T-piece 8.00 40 09/10/16 06:00 96 09/10/16 04:00 97.8 20 146/70 Intake and Output 09/09/16 09/09/16 09/10/16 08:00 16:00 00:00 Intake Total 479 ml 1181 ml 929 ml Output Total 500 ml 500 ml 600 ml Balance -21 ml 681 ml 329 ml Result Diagram: 09/10/16 0452 09/10/16 0452 Other Results Microbiology Date/Time Procedure Status Source Growth 09/08/16 16:15 Aerobic Blood Culture - Preliminary Resulted Blood Peripheral NO GROWTH IN 1 DAY 09/08/16 16:15 Anaerobic Blood Culture - Preliminary Resulted Blood Peripheral NO GROWTH IN 1 DAY 09/08/16 15:45 Urine Culture - Preliminary Resulted Urine Catheterized Urine Yeast Species 09/08/16 14:45 Gram Stain - Final Resulted Sputum Endotracheal 09/08/16 14:45 Sputum Culture - Preliminary Resulted Gram Negative [facility] Last Impressions Chest X-Ray 09/09/16 0600 Signed Impressions: Service Date/Time: Friday, September 09, 2016 04:30 - CONCLUSION: Stable interstitial opacities involving the right lung. Left lung is clear. Henri Shirley Jr., MD Upper Extremity Ultrasound 09/07/16 0000 Signed Impressions: Service Date/Time: August 09:28 - CONCLUSION: Cephalic vein thrombosis. KRory Da Silva MD Abdomen Ultrasound 09/03/16 0000 Signed Impressions: Service Date/Time: Saturday, September 03, 2016 15:21 - CONCLUSION: 1. No acute findings. Exam somewhat limited by overlying bowel gas. Mina Varghese MD Objective Remarks GENERAL: 80 yo male patient, critically ill, currently on PSV trial via tracheostomy appears in no acute distress HEAD: Normocephalic. EYES: PERRL. No scleral icterus. No scleral edema. Drainage from right eye. NECK: Supple, trachea midline. No JVD. tracheostomy in place without erythema or bleeding. CARDIOVASCULAR: RRR. S1, S2. No S4. No murmur RESPIRATORY: Positive thick secretion from tracheostomy, greenish sweeney color without blood. Few crackles appreciated in the bases bilaterally. Symmetrical excursion. GASTROINTESTINAL: Abdomen soft, non-tender, nondistended. PEG tube is in place above the umbilicus very little erythema. MUSCULOSKELETAL: contracted bilateral upper and lower extremity.. With trace nonpitting peripheral upper and lower extremity edema. : No scrotal edema. Neuro: Opens eyes spontaneously. does not follow commands. extends LUE, withdraws x 3. Skin: Stage II-III decubitus ulcer coccyx 2 cm x 2 cm and healing ulcer left heel A/P Assessment and Plan NEUROLOGY/PSYCH Alzheimer's dementia Hypoactive delirium Depression/anxiety -Acetaminophen for fever/Dilaudid as needed for pain management. -Monitor neuro status. -Continue Provigil 400 mg daily in attempt increased alertness. On since with minimal improvement -Limit sedation PULMONARY Acute on chronic respiratory failure HCAP -Currently PRVC 14/500/1.0/40 PSV trial 04/24 at 40%. Transition T piece today if able Ventilator bundle -HOB at 30 degrees -S/p #8 Shiley percutaneous trach 06/13. (Dr. Morataya/Dr. Dai). Downsized to a # 6 Shiley DFEN 08/05 -DuoNeb q6h and q2h prn. -Hypertonic saline aerosols 3% every 65 days mucolytic along with guaifenesin 400 every 85 days CARDIOVASCULAR History of Hypertension -Currently not requiring antihypertensives and/or vasopressors. -Telemetry will be continued -Continue free water to 200cc q4hr. GASTROENTEROLOGY Failure to thrive Gastroesophageal reflux disease Severe acute protein calorie malnutrition- severe Hypo-albuminemia Elevated transaminases -TF to goal as tolerated with Glucerna 1.5 goal of 50 cc an hour -On Pepcid.for GI prophylaxis -PeriColace twice a day for bowel regimen RENAL//FEN: Acute kidney injury Hypernatremia Hyperchloridemia Hypophosphatemia BPH Continue to Monitor renal function, Replace electrolytes as clinically indicated, placed on electrolyte protocol Renal/abdominal ultrasound revealed no hydronephrosis. INFECTION DISEASE HCAP with PSAE UTI with Proteus and ESBL Klebsiella New fever, sepsis History of E. 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 1 dose of ertapenem. Previously on Zosyn 3 days with 1 dose of vancomycin Micafungin, vancomycin added yesterday 09/08 Pertinent cultures 06/04 - urine - E. Cloacae 06/16 - sputum - Alla Tropicalis 06/27 blood - Staph Epi (1/2 bottles) 06/28 urine - alla glabrata 06/28 sputum - Klebsiella (intermediate to zosyn), MRSA 07/12 sputum - MRSA 07/18 sputum - MRSA, Klebsiella 07/21 sputum -MRSA, Klebsiella 07/21 blood -no growth for 2 days 07/21 urine -Alla glabrata 09/02 - blood cultures 2 -staph epi/coag negative staph 09/02: urine - Proteus, Klebsiella ESBL positive 09/03 -sputum-Pseudomonas, Proteus and gram-negative wesley 09/08 - sputum - gram-negative wesley 09/08 - blood cultures 2 - no growth 09/08 - urine -pending Influenza negative. ID for antibiotic recommendations. Previously on suppressive Bactrim twice a day HEMATOLOGY History of Normocytic anemia Leukocytosis Thrombocytopenia -Currently no indication for transfusion of blood proximally at this time -Hemoccult stool was negative -Transfuse if hemoglobin below 7. ENDOCRINOLOGY: Hyperglycemia of critical illness Currently on Levemir 15 units twice a day. Sliding Scale insulin with Accu-Cheks every 4 hours maintain euglycemia. 1 PROPHYLAXIS -GI prophylaxis-Pepcid q24 -DVT prevention: SCDs. SQH 5000 q12hr SKIN Left heel blister Sacral decubitus ulcer stage I -Continue Multi-Podus boots, wound care following - Continue wrist splints alternating sides daily Wound care evaluate and treat LINES -PIVs level 3 CM following for LTAC placement German Marinelli MD Sep 10, 2016 09:49
[2016-09-10] MEDS: INSULIN DETEMIR 100 UNITS/ML VIAL SQ SCH ×2 (09:53→20:39)
[2016-09-10] MEDS: MODAFINIL 200 MG TAB PO SCH (09:53)
[2016-09-10] MEDS: FAMOTIDINE 20 MG TAB NG SCH (09:53)
[2016-09-10] MEDS: DOCUSATE SODIUM 50 MG/SENNA 8.6 MG TAB PO SCH ×2 (09:54→20:39)
[2016-09-10] MEDS: SODIUM CHLORIDE 0.9% FLUSH 10 ML FLUSH IV FLUSH SCH ×2 (09:55→20:40)
[2016-09-10] MEDS: MICAFUNGIN INJ 150 MG in SODIUM CHLORIDE 0.9% INJ 100 ML IV SCH (17:19)
[2016-09-11] VITALS (17 sets, daily range): BP systolic 106–120; BP diastolic 52–63; PULSE 90–101; RESP 13–23; TEMP 97.8–100.2; O2SAT 95–100
[2016-09-11] MEDS: HEPARIN SODIUM - SQ 10,000 UNITS/ML VIAL SQ SCH ×2 (00:55→12:14)
[2016-09-11] MEDS: MEROPENEM INJ 1,000 MG in SODIUM CHLORIDE 0.9% INJ 100 ML IV SCH ×3 (01:19→18:27)
[2016-09-11] MEDS: FREE WATER G-TUBE SCH ×6 (04:00→20:00)
[2016-09-11] MEDS: INSULIN NovoLIN REGULAR SUPPLEMENTAL SCALE SQ SCH ×6 (04:00→20:00)
[2016-09-11] MEDS: CHLORHEXIDINE GLUCONATE 2 % 1 PACK (2 CLOTHS) TOP SCH (04:00)
[2016-09-11] MEDS: RESP: ALBUTEROL 2.5 MG/IPRATROPIUM 0.5 MG NEB (SCH) INH ×4 (04:24→21:05)
[2016-09-11] MEDS: RESP: SODIUM CHLORIDE 3% 4 ML NEB NEB SCH ×3 (04:24→15:26)
[2016-09-11] MEDS: guaiFENesin SOLUTION 200 MG/10 ML CUP PO SCH ×2 (05:01→14:26)
[2016-09-11 06:57] LABS: AUTOMATED NEUTROPHIL # 6.3 TH/MM3 (1.8-7.7); BASOPHIL % 0.4 % (0.0-2.0); EOSINOPHIL % 0.6 % (0.0-4.0); HEMATOCRIT 23.8 % (39.0-51.0); LYMPH % 21.4 % (9.0-44.0); LYMPHOCYTE # 1.8 TH/MM3 (1.0-4.8); MEAN CELL VOLUME 84.8 FL (80.0-100.0); MEAN CORPUSCULAR HEMOGLOBIN 27.5 PG (27.0-34.0); MEAN CORPUSCULAR HGB CONC 32.4 % (32.0-36.0); MONO % 3.6 % (0.0-8.0); PLATELET COUNT 175 TH/MM3 (150-450); RED BLOOD COUNT 2.81 MIL/MM3 (4.50-5.90); RED CELL DISTRIBUTION WIDTH 17.6 % (11.6-17.2); WHITE BLOOD COUNT 8.5 TH/MM3 (4.0-11.0)
[2016-09-11 06:58] LABS: HEMO FLAGS AUTO DIFF
[2016-09-11 07:31] LABS: ALKALINE PHOSPHATASE 83 U/L (45-117); ALT (GPT) 61 U/L (12-78); ANION GAP 9 MEQ/L (5-15); AST (GOT) 64 U/L (15-37); BICARBONATE 24.3 MEQ/L (21.0-32.0); BLOOD UREA NITROGEN 21 MG/DL (7-18); CHLORIDE 112 MEQ/L (98-107); GLOMERULAR FILTRATION RATE 86 ML/MIN (>89); MAGNESIUM 2.6 MG/DL (1.5-2.5); POTASSIUM 4.1 MEQ/L (3.5-5.1); SODIUM (NA) 145 MEQ/L (136-145); TOTAL BILIRUBIN ADULT 0.3 MG/DL (0.2-1.0)
[2016-09-11] MEDS ORDERED: PHARMACY ORDERED LAB ONE ×2 (07:45→16:45)
[2016-09-11 08:18] LABS: BANDS 1 % (0-6); BASOPHILS 2 % (0-2); CORRECTED NUCLEATED RBC 1 /100 WBC (0-0); METAMYELOCYTES 1 % (0-1); MYELOCYTES 1 % (0-0); NEUTROPHIL # MANUAL DIFF 6.3 TH/MM3 (1.8-7.7); PLATELET ESTIMATE SMEAR NORMAL (NORMAL); PLATELET MORPHOLOGY NORMAL (NORMAL); POLYS (SEG NEUTROPHILS) 71 % (16-70); SCAN/DIFF FINAL DIFF MANUAL; WBC DIFF SAMPLE 100
[2016-09-11] MEDS: DOCUSATE SODIUM 50 MG/SENNA 8.6 MG TAB PO SCH ×2 (08:19→21:00)
[2016-09-11] MEDS: INSULIN DETEMIR 100 UNITS/ML VIAL SQ SCH ×2 (08:19→21:46)
[2016-09-11] MEDS: MODAFINIL 200 MG TAB PO SCH (08:19)
[2016-09-11] MEDS: FAMOTIDINE 20 MG TAB NG SCH (08:19)
[2016-09-11] MEDS: CHLORHEXIDINE 0.12% (ORAL KIT) 15 ML CUP MT SCH ×2 (08:21→21:47)
[2016-09-11] MEDS: SODIUM CHLORIDE 0.9% FLUSH 10 ML FLUSH IV FLUSH SCH ×2 (08:22→21:46)
[2016-09-11] MEDS ORDERED: NYSTATIN 100,000 UNIT/GM CREAM 15 GM TOPICAL SCH (09:00)
[2016-09-11 10:19] LABS: ULNAR PULSE PRESENT
[2016-09-11] MEDS: VANCOMYCIN INJ 1,250 MG in SODIUM CHLOR 0.9% 250 ML INJ 250 ML IV SCH (10:46)
[2016-09-11] MEDS: ACETAMINOPHEN 325 MG TAB PO PRN (10:47)
[2016-09-11] MEDS: NYSTATIN 100,000 U/GM PWD 15 GM BTL TOPICAL SCH ×2 (10:47→21:46)
--- NOTE | 2016-09-11 12:06 | HHI.CCPN ---
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 He is well-known to me and I have taken care of him during his 2-month prior ICU admission with us. He has a history if dementia, DM, and chronic respiratory failure requiring tracheostomy. He was sent from the long term for evaluation of hyperglycemia. However, on evaluation in the ER, he was found to be tachycardic , diaphoretic. He had a serum Na 160, glucose of 600, Cr 3 (baseline around 1), lactate of 3.0, wbc 17. He was febrile as well. CXR appears clear and u/a clean. Unfortunately, the patient is unable to provide any additional history given his chronic medical state. The remainder of the history is based on my prior knowledge of the patient and chart review. I evaluated the patient in the emergency department. 09/03: Afebrile. On T piece. No acute issues overnight. Creatinine slowly correcting. 09/04: Currently resting in bed at baseline neurologic valladares. Creatinine slowly correcting. Sodium slowly correcting. Positive BM. Afebrile. 09/05: Currently on TPs. Attempt to switch to trach collar. Sodium and creatinine are cracking. At baseline neurologic valladares. Positive BM. Tolerating tube feeding. 09/06: Noted increasing O2 request up-to-date. Thick greenish secretions. X- ray revealed no acute spines. Possibly mucus plugging. We'll place on ventilator short-term. Add hypertonic saline nebs. Neurologically baseline. 09/07: Continues to be tachypneic on CPAP, rate 30-35. CXR mild diffuse interstitial infiltrates. K 3.4. No improvement in neuro status 09/08: On TP, tachypneic. Fever 102, ID following. Increased ETT secretions. No change in neuro status 09/09: Currently afebrile. Continues to have copious secretions from tracheostomy site. Failed PSV trial today. Positive BM. Tolerating tube feeding 09/10: Tmax 102.8. Currently 97.8. Tolerating tube feeds. Currently a PSV trial 04/24 at 40%. Transition of TP today. Start vancomycin and micafungin yesterday per ID. Subjective 09/11: Afebrile. Tolerating tube feeds. Positive BM. Currently on T piece trial. Noted Acinetobacter in sputum and C tropicalis in urine. Infectious disease following Objective Vital Signs Date Time Temp Pulse Resp B/P Pulse Ox O2 Delivery O2 Flow Rate FiO2 09/11/16 08:47 99 T-piece 25 09/11/16 06:00 96 09/11/16 04:00 97.8 23 114/58 09/10/16 08:35 8.00 Intake and Output 09/10/16 09/10/16 09/11/16 08:00 16:00 00:00 Intake Total 1334 ml 617 ml 710 ml Output Total 400 ml 500 ml 750 ml Balance 934 ml 117 ml -40 ml Result Diagram: 09/11/1662109/11/16621 Other Results Microbiology Date/Time Procedure Status Source Growth 09/08/16 16:15 Aerobic Blood Culture - Preliminary Resulted Blood Peripheral NO GROWTH IN 3 DAYS 09/08/16 16:15 Anaerobic Blood Culture - Preliminary Resulted Blood Peripheral NO GROWTH IN 3 DAYS 09/08/16 15:45 Urine Culture - Final Complete Urine Catheterized Urine Alla Tropicalis 09/08/16 14:45 Gram Stain - Final Resulted Sputum Endotracheal 09/08/16 14:45 Sputum Culture - Preliminary Resulted Acinetobacter Baumannii/[facility] Last Impressions Chest X-Ray 09/09/16 0600 Signed Impressions: Service Date/Time: Friday, September 09, 2016 04:30 - CONCLUSION: Stable interstitial opacities involving the right lung. Left lung is clear. Henri Shirley Jr., MD Upper Extremity Ultrasound 09/07/16 0000 Signed Impressions: Service Date/Time: August 09:28 - CONCLUSION: Cephalic vein thrombosis. K. Marquis Da Silva MD Abdomen Ultrasound 09/03/16 0000 Signed Impressions: Service Date/Time: Saturday, September 03, 2016 15:21 - CONCLUSION: 1. No acute findings. Exam somewhat limited by overlying bowel gas. Mina Varghese MD Objective Remarks GENERAL: 80 yo male patient, critically ill, currently on T piece trial via tracheostomy appears in no acute distress HEAD: Normocephalic. EYES: PERRL. No scleral icterus. No scleral edema. Drainage from right eye. NECK: Supple, trachea midline. No JVD. tracheostomy in place without erythema or bleeding. CARDIOVASCULAR: RRR. S1, S2. No S4. No murmur RESPIRATORY: Positive thick secretion from tracheostomy, greenish sweeney color without blood. Few crackles appreciated in the bases bilaterally. Symmetrical excursion. GASTROINTESTINAL: Abdomen soft, non-tender, nondistended. PEG tube is in place above the umbilicus very little erythema. MUSCULOSKELETAL: contracted bilateral upper and lower extremity.. With trace nonpitting peripheral upper and lower extremity edema. : No scrotal edema. Neuro: Opens eyes spontaneously. does not follow commands. extends LUE, withdraws x 3. Skin: Stage II-III decubitus ulcer coccyx 2 cm x 2 cm and healing ulcer left heel A/P Assessment and Plan NEUROLOGY/PSYCH Alzheimer's dementia Hypoactive delirium Depression/anxiety -Acetaminophen for fever/Dilaudid as needed for pain management. -Monitor neuro status. -Continue Provigil 400 mg daily in attempt increased alertness. On since with minimal improvement -Limit sedation PULMONARY Acute on chronic respiratory failure HCAP Previously on PRVC 14/500/1.0/ Currently on T piece today at 28% FiO2 Ventilator bundle -HOB at 30 degrees -S/p #8 Shiley percutaneous trach 06/13. (Dr. Morataya/Dr. Dai). Downsized to a # 6 Shiley DFEN 08/05 -DuoNeb q6h and q2h prn. -Hypertonic saline aerosols 3% every 65 days mucolytic along with guaifenesin 400 every 85 days CARDIOVASCULAR History of Hypertension -Currently not requiring antihypertensives and/or vasopressors. -Telemetry will be continued -Continue free water to 200cc q4hr. GASTROENTEROLOGY Failure to thrive Gastroesophageal reflux disease Severe acute protein calorie malnutrition- severe Hypo-albuminemia Elevated transaminases -TF to goal as tolerated with Glucerna 1.5 goal of 50 cc an hour -On Pepcid.for GI prophylaxis -PeriColace twice a day for bowel regimen RENAL//FEN: Acute kidney injury Hypernatremia Hyperchloridemia Hypophosphatemia BPH Continue to Monitor renal function, Replace electrolytes as clinically indicated, placed on electrolyte protocol Renal/abdominal ultrasound revealed no hydronephrosis. INFECTION DISEASE HCAP with PSAE UTI with Proteus and ESBL Klebsiella New fever, sepsis History of E. 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 1 dose of ertapenem. Previously on Zosyn 3 days with 1 dose of vancomycin Micafungin, vancomycin added yesterday 09/08 Noted Acinetobacter resistant. Sensitive to Zosyn and tobramycin only. Defer antibiotics to infectious disease physician recommendations Pertinent cultures 06/04 - urine - E. Cloacae 06/16 - sputum - Alla Tropicalis 06/27 blood - Staph Epi (1/2 bottles) 06/28 urine - alla glabrata 06/28 sputum - Klebsiella (intermediate to zosyn), MRSA 07/12 sputum - MRSA 07/18 sputum - MRSA, Klebsiella 07/21 sputum -MRSA, Klebsiella 07/21 blood -no growth for 2 days 07/21 urine -Alla glabrata 09/02 - blood cultures 2 -staph epi/coag negative staph 09/02: urine - Proteus, Klebsiella ESBL positive 09/03 -sputum-Pseudomonas, Proteus and gram-negative michael 09/08 - sputum -Acinetobacter 09/08 - blood cultures 2 - no growth 09/08 - urine -C tropicalis Influenza negative. ID for antibiotic recommendations. Previously on suppressive Bactrim twice a day HEMATOLOGY History of Normocytic anemia Leukocytosis -Currently no indication for transfusion of blood proximally at this time -Hemoccult stool was negative -Transfuse if hemoglobin below 7. ENDOCRINOLOGY: Hyperglycemia of critical illness Currently on Levemir 15 units twice a day. Sliding Scale insulin with Accu-Cheks every 4 hours maintain euglycemia. 14 units of/sliding scale insulin past 24 hours SKIN Left heel blister Sacral decubitus ulcer stage I -Continue Multi-Podus boots, wound care following - Continue wrist splints alternating sides daily Wound care evaluate and treat Prophylaxis - GI - Protonix - DVT - SCD/heparin Access - Utilize peripheral IV. Central line if indicated Critical Care: The total critical care time was 55 minutes. Time to perform other separately billable procedures was not included in the critical care time. German Marinelli MD Sep 11, 2016 12:06
[2016-09-11] MEDS: MICAFUNGIN INJ 150 MG in SODIUM CHLORIDE 0.9% INJ 100 ML IV SCH (16:39)
--- NOTE | 2016-09-11 19:08 | HHI.IDPN ---
Subjective Subjective Remarks mostly afebrile occasional low grade temps "tons of secretions" per RN on T piece Antibiotics Meropenem Micafungin Vancomycin Lines no central lines Past Medical History Reviewed Allergies: Coded Allergies: *MDRO Multi-Drug Resistant Organism (Verified Adverse Reaction, Unknown, ) MRSA (sputum) - 06/28/16, 07/12/16, 07/21/16 MRSA PCR Screen POSITIVE - 09/03/2016 ESBL K. pneumoniae (urine) - 09/02/16 MDR-Acinetobacter (sputum)-09/08/16 Objective . Vital Signs Date Time Temp Pulse Resp B/P Pulse Ox O2 Delivery O2 Flow Rate FiO2 09/11/16 18:00 92 09/11/16 16:00 98.6 90 23 106/58 95 09/11/16 16:00 90 09/11/16 14:00 90 09/11/16 12:00 99.2 92 23 106/52 98 09/11/16 12:00 92 09/11/16 11:47 22 09/11/16 10:00 97 09/11/16 08:47 99 T-piece 25 09/11/16 08:00 101 09/11/16 08:00 100.2 101 19 120/63 100 09/11/16 07:00 100 T-Piece 09/11/16 06:00 96 09/11/16 04:12 100 40 09/11/16 04:00 95 09/11/16 04:00 40 09/11/16 04:00 97.8 92 23 114/58 100 09/11/16 02:00 92 09/11/16 01:12 100 40 09/11/16 00:00 97.8 92 23 114/58 100 09/11/16 00:00 40 09/11/16 00:00 92 09/10/16 22:26 100 40 09/10/16 22:00 40 09/10/16 22:00 101 09/10/16 22:00 100 Mechanical Ventilator 40 09/10/16 21:20 100 40 09/10/16 20:00 98.5 98 21 113/56 99 09/10/16 20:00 40 09/10/16 20:00 100 Mechanical Ventilator 40 09/10/16 20:00 98 09/10/16 09/10/16 09/11/16 15:00 23:00 07:00 Intake Total 617 ml 710 ml 581 ml Output Total 500 ml 750 ml 500 ml Balance 117 ml -40 ml 81 ml Intake Oral 0 ml 0 ml IV Total 238 ml 135 ml 125 ml Tube Feeding 379 ml 375 ml 256 ml Other 200 ml 200 ml Output Urine Total 400 ml 650 ml 300 ml Stool Total 100 ml 100 ml 200 ml . Laboratory Tests Test 09/10/16 09/11/16 04:52 06:22 White Blood Count 9.5 TH/MM3 8.5 TH/MM3 Red Blood Count 2.76 MIL/MM3 2.81 MIL/MM3 Hemoglobin 7.8 GM/DL 7.7 GM/DL Hematocrit 23.2 % 23.8 % Mean Corpuscular Volume 83.9 FL 84.8 FL Mean Corpuscular Hemoglobin 28.4 PG 27.5 PG Mean Corpuscular Hemoglobin 33.8 % 32.4 % Concent Red Cell Distribution Width 17.4 % 17.6 % Platelet Count 142 TH/MM3 175 TH/MM3 Mean Platelet Volume 9.3 FL 9.3 FL Neutrophils (%) (Auto) 78.3 % 74.0 % Lymphocytes (%) (Auto) 17.1 % 21.4 % Monocytes (%) (Auto) 3.5 % 3.6 % Eosinophils (%) (Auto) 0.6 % 0.6 % Basophils (%) (Auto) 0.5 % 0.4 % Neutrophils # (Auto) 7.5 TH/MM3 6.3 TH/MM3 Lymphocytes # (Auto) 1.6 TH/MM3 1.8 TH/MM3 Monocytes # (Auto) 0.3 TH/MM3 0.3 TH/MM3 Eosinophils # (Auto) 0.1 TH/MM3 0.0 TH/MM3 Basophils # (Auto) 0.0 TH/MM3 0.0 TH/MM3 CBC Comment AUTO DIFF AUTO DIFF Differential Total Cells 100 100 Counted Neutrophils % (Manual) 70 % 71 % Band Neutrophils % 7 % 1 % Lymphocytes % 17 % 21 % Monocytes % 5 % 3 % Eosinophils % 1 % Neutrophils # (Manual) 7.3 TH/MM3 6.3 TH/MM3 Differential Comment FINAL DIFF FINAL DIFF MANUAL MANUAL Platelet Estimate LOW NORMAL Platelet Morphology Comment NORMAL NORMAL Basophils % 2 % Metamyelocytes 1 % Myelocytes 1 % Nucleated Red Blood Cells 1 /100 WBC Laboratory Tests Test 09/10/16 09/11/16 04:52 06:22 Sodium Level 146 MEQ/L 145 MEQ/L Potassium Level 4.2 MEQ/L 4.1 MEQ/L Chloride Level 113 MEQ/L 112 MEQ/L Carbon Dioxide Level 23.6 MEQ/L 24.3 MEQ/L Anion Gap 9 MEQ/L 9 MEQ/L Blood Urea Nitrogen 19 MG/DL 21 MG/DL Creatinine 0.85 MG/DL 0.85 MG/DL Estimat Glomerular Filtration 86 ML/MIN 86 ML/MIN Rate Random Glucose 157 MG/DL 149 MG/DL Calcium Level 9.5 MG/DL 9.4 MG/DL Phosphorus Level 2.5 MG/DL Magnesium Level 2.6 MG/DL Total Bilirubin 0.3 MG/DL Aspartate Amino Transf 64 U/L (AST/SGOT) Alanine Aminotransferase 61 U/L (ALT/SGPT) Alkaline Phosphatase 83 U/L Total Protein 7.2 GM/DL Albumin 2.1 GM/DL Imaging Last Impressions Chest X-Ray 09/09/16 0600 Signed Impressions: Service Date/Time: Friday, September 09, 2016 04:30 - CONCLUSION: Stable interstitial opacities involving the right lung. Left lung is clear. Henri Shirley Jr., MD Upper Extremity Ultrasound 09/07/16 0000 Signed Impressions: Service Date/Time: August 09:28 - CONCLUSION: Cephalic vein thrombosis. KRory Da Silva MD Abdomen Ultrasound 09/03/16 0000 Signed Impressions: Service Date/Time: Saturday, September 03, 2016 15:21 - CONCLUSION: 1. No acute findings. Exam somewhat limited by overlying bowel gas. Mina Varghese MD Physical Exam CONSTITUTIONAL/GENERAL: Not responding, on T-piece, comfortable SKIN: No jaundice, rashes, or lesions. Warm and dry HEAD: Atraumatic. Normocephalic. EYES: Pupils equal and round and reactive. No scleral icterus. No injection or drainage. ENT: Nose without bleeding or purulent drainage. oral mucosae moist NECK: Trachea midline. Supple, nontender. Trach collar in place , site OK CARDIOVASCULAR: Regular rate and rhythm without murmurs, gallops, or rubs. RESPIRATORY/CHEST: Clear to auscultation. Decreased R GASTROINTESTINAL: Abdomen soft, no reaction to palpation. mildly istended. Bowel sounds present. Dignishield in place with liquid brown stool GENITOURINARY: Without palpable bladder distension. Mckeon catheter in place with clear yellow urine MUSCULOSKELETAL: Extremities without clubbing, cyanosis, + trace pedal edema. No joint effusion noted. No mottling. NEUROLOGICAL: Not responding - at baseline PSYCHIATRIC: unable to assess LINE no evidence of infection Assessment & Plan Remarks UTI, ESBL Kleb pneumo in clx PSAE PNA, vs tracheobronchitis New clx with MDRO Acietobacter R to meropenem Fevers - ? source ? VAP vs new UTI ve other infx or drug fever Respiratory failure, has chronic trach - currently on T-piece, but breathing looks laboured or unusual Advanced Dementia Diarrhea, ho recent abx use; C.diff negative PLAN cont Ertapenem for ESBL UTI dc Vancom IV dc Micafungin start Levaquine for PSAE start Unasyn for Acinteobacter tobra nebs Follow new C/S - adjust once C/S available Follow temps Monitor progress Elle Cox RN, Dr, MD Sep 11, 2016 19:08
[2016-09-11] MEDS ORDERED: ASP: Documented ESBL, MDR A baumannii or P. aeruginosa PRN (19:15)
[2016-09-11] MEDS ORDERED: MISCELLANEOUS PHARMACY INFORMATION XX PRN (19:15)
[2016-09-11] MEDS: LEVOFLOXACIN 750 MG PREMIX INJ 150 ML IV SCH (21:43)
[2016-09-11] MEDS: ERTAPENEM INJ 1,000 MG in SODIUM CHLORIDE 0.9% INJ 100 ML IV SCH (21:43)
[2016-09-11] MEDS: AMPICILLIN-SULBACTAM INJ 3 GM in SODIUM CHLORIDE 0.9% INJ 100 ML IV SCH (21:44)
[2016-09-11] MEDS: RESP: TOBRAMYCIN SULFATE 300 MG/5 ML NEB NEB SCH (23:48)
[2016-09-12] VITALS (16 sets, daily range): BP systolic 107–118; BP diastolic 58–59; PULSE 79–111; RESP 14–43; TEMP 98.7–99.7; O2SAT 99–100
[2016-09-12] MEDS: HEPARIN SODIUM - SQ 10,000 UNITS/ML VIAL SQ SCH ×2 (01:35→11:59)
[2016-09-12] MEDS: AMPICILLIN-SULBACTAM INJ 3 GM in SODIUM CHLORIDE 0.9% INJ 100 ML IV SCH ×4 (01:36→20:32)
[2016-09-12] MEDS: HYDROmorphone HCL PF 1 MG/ML VIAL IV PUSH PRN (03:07)
[2016-09-12] MEDS: RESP: ALBUTEROL 2.5 MG/IPRATROPIUM 0.5 MG NEB (SCH) INH ×4 (03:14→21:17)
[2016-09-12] MEDS: CHLORHEXIDINE GLUCONATE 2 % 1 PACK (2 CLOTHS) TOP SCH (04:00)
[2016-09-12 04:25] LABS: AUTOMATED NEUTROPHIL # 6.4 TH/MM3 (1.8-7.7); BASOPHIL % 0.6 % (0.0-2.0); EOSINOPHIL # 0.1 TH/MM3 (0-0.4); EOSINOPHIL % 1.1 % (0.0-4.0); HEMATOCRIT 22.4 % (39.0-51.0); LYMPH % 17.6 % (9.0-44.0); LYMPHOCYTE # 1.4 TH/MM3 (1.0-4.8); MEAN CELL VOLUME 84.2 FL (80.0-100.0); MEAN CORPUSCULAR HEMOGLOBIN 28.5 PG (27.0-34.0); MEAN CORPUSCULAR HGB CONC 33.8 % (32.0-36.0); MONO % 2.7 % (0.0-8.0); PLATELET COUNT 222 TH/MM3 (150-450); RED BLOOD COUNT 2.66 MIL/MM3 (4.50-5.90); RED CELL DISTRIBUTION WIDTH 16.9 % (11.6-17.2); WHITE BLOOD COUNT 8.2 TH/MM3 (4.0-11.0)
[2016-09-12 04:30] LABS: HEMO FLAGS AUTO DIFF
[2016-09-12 04:59] LABS: BICARBONATE 25.2 MEQ/L (21.0-32.0); POTASSIUM 4.2 MEQ/L (3.5-5.1)
[2016-09-12 05:56] LABS: BANDS 2 % (0-6); BASOPHILS 2 % (0-2); CORRECTED NUCLEATED RBC 2 /100 WBC (0-0); METAMYELOCYTES 1 % (0-1); POLYS (SEG NEUTROPHILS) 81 % (16-70); PROMYELOCYTES 1 % (0-0); WBC DIFF SAMPLE 100
[2016-09-12 05:57] LABS: PLATELET ESTIMATE SMEAR NORMAL (NORMAL); PLATELET MORPHOLOGY NORMAL (NORMAL); SCAN/DIFF FINAL DIFF MANUAL
[2016-09-12] MEDS: RESP: TOBRAMYCIN SULFATE 300 MG/5 ML NEB NEB SCH ×2 (07:49→20:03)
[2016-09-12] MEDS: INSULIN NovoLIN REGULAR SUPPLEMENTAL SCALE SQ SCH ×5 (08:26→20:00)
[2016-09-12] MEDS: INSULIN DETEMIR 100 UNITS/ML VIAL SQ SCH ×2 (08:27→20:33)
[2016-09-12] MEDS: FREE WATER G-TUBE SCH ×5 (08:27→20:00)
[2016-09-12] MEDS: MODAFINIL 200 MG TAB PO SCH (08:27)
[2016-09-12] MEDS: DOCUSATE SODIUM 50 MG/SENNA 8.6 MG TAB PO SCH ×2 (08:27→20:33)
[2016-09-12] MEDS: FAMOTIDINE 20 MG TAB NG SCH (08:27)
[2016-09-12] MEDS: SODIUM CHLORIDE 0.9% FLUSH 10 ML FLUSH IV FLUSH SCH ×2 (08:29→20:33)
[2016-09-12] MEDS: NYSTATIN 100,000 U/GM PWD 15 GM BTL TOPICAL SCH ×2 (08:29→20:34)
[2016-09-12] MEDS: CHLORHEXIDINE 0.12% (ORAL KIT) 15 ML CUP MT SCH ×2 (08:32→20:32)
[2016-09-12 08:59] LABS: C. DIFF EPI 027 PRESUMPTIVE NEGATIVE (NEGATIVE); C. DIFF TOXIN PCR NEGATIVE (NEGATIVE)
--- NOTE | 2016-09-12 12:29 | HHI.CCPN ---
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 He is well-known to me and I have taken care of him during his 2-month prior ICU admission with us. He has a history if dementia, DM, and chronic respiratory failure requiring tracheostomy. He was sent from the intermediate for evaluation of hyperglycemia. However, on evaluation in the ER, he was found to be tachycardic , diaphoretic. He had a serum Na 160, glucose of 600, Cr 3 (baseline around 1), lactate of 3.0, wbc 17. He was febrile as well. CXR appears clear and u/a clean. Unfortunately, the patient is unable to provide any additional history given his chronic medical state. The remainder of the history is based on my prior knowledge of the patient and chart review. I evaluated the patient in the emergency department. 09/03: Afebrile. On T piece. No acute issues overnight. Creatinine slowly correcting. 09/04: Currently resting in bed at baseline neurologic valladares. Creatinine slowly correcting. Sodium slowly correcting. Positive BM. Afebrile. 09/05: Currently on TPs. Attempt to switch to trach collar. Sodium and creatinine are cracking. At baseline neurologic valladares. Positive BM. Tolerating tube feeding. 09/06: Noted increasing O2 request up-to-date. Thick greenish secretions. X- ray revealed no acute spines. Possibly mucus plugging. We'll place on ventilator short-term. Add hypertonic saline nebs. Neurologically baseline. 09/07: Continues to be tachypneic on CPAP, rate 30-35. CXR mild diffuse interstitial infiltrates. K 3.4. No improvement in neuro status 09/08: On TP, tachypneic. Fever 102, ID following. Increased ETT secretions. No change in neuro status 09/09: Currently afebrile. Continues to have copious secretions from tracheostomy site. Failed PSV trial today. Positive BM. Tolerating tube feeding 09/10: Tmax 102.8. Currently 97.8. Tolerating tube feeds. Currently a PSV trial 04/24 at 40%. Transition of TP today. Start vancomycin and micafungin yesterday per ID. 09/11: Afebrile. Tolerating tube feeds. Positive BM. Currently on T piece trial. Noted Acinetobacter in sputum and C tropicalis in urine. Infectious disease following Subjective 09/12: Tmax 99.7. High residuals today. KUB pending. Currently T piece trial. Neurologically unchanged Objective Vital Signs Date Time Temp Pulse Resp B/P Pulse Ox O2 Delivery O2 Flow Rate FiO2 09/12/16 12:00 99.7 101 14 115/58 100 09/12/16 12:00 40 09/12/16 07:00 Mechanical Ventilator 09/10/16 08:35 8.00 Intake and Output 09/11/16 09/11/16 09/12/16 08:00 16:00 00:00 Intake Total 581 ml 980 ml 646 ml Output Total 500 ml 600 ml 450 ml Balance 81 ml 380 ml 196 ml Result Diagram: 09/12/16 0344 09/12/16 0344 Other Results Microbiology Date/Time Procedure Status Source Growth 09/08/16 16:15 Aerobic Blood Culture - Preliminary Resulted Blood Peripheral NO GROWTH IN 4 DAYS 09/08/16 16:15 Anaerobic Blood Culture - Preliminary Resulted Blood Peripheral NO GROWTH IN 4 DAYS 09/08/16 15:45 Urine Culture - Final Complete Urine Catheterized Urine Alla Tropicalis 09/08/16 14:45 Gram Stain - Final Complete Sputum Endotracheal 09/08/16 14:45 Sputum Culture - Final Complete Acinetobacter Baumannii/Haemol Imaging Last Impressions Chest X-Ray 09/09/16 0600 Signed Impressions: Service Date/Time: Friday, September 09, 2016 04:30 - CONCLUSION: Stable interstitial opacities involving the right lung. Left lung is clear. Henri Shirley Jr., MD Upper Extremity Ultrasound 09/07/16 0000 Signed Impressions: Service Date/Time: August 09:28 - CONCLUSION: Cephalic vein thrombosis. K. Marquis Da Silva MD Abdomen Ultrasound 09/03/16 0000 Signed Impressions: Service Date/Time: Saturday, September 03, 2016 15:21 - CONCLUSION: 1. No acute findings. Exam somewhat limited by overlying bowel gas. Mina Varghese MD Objective Remarks GENERAL: 80 yo male patient, critically ill, currently on T piece trial via tracheostomy appears in no acute distress HEAD: Normocephalic. EYES: PERRL. No scleral icterus. No scleral edema. Drainage from right eye. NECK: Supple, trachea midline. No JVD. tracheostomy in place without erythema or bleeding. CARDIOVASCULAR: RRR. S1, S2. No S4. No murmur RESPIRATORY: Positive thick secretion from tracheostomy, greenish sweeney color without blood. Few crackles appreciated in the bases bilaterally. Symmetrical excursion. GASTROINTESTINAL: Abdomen soft, non-tender, nondistended. PEG tube is in place above the umbilicus very little erythema. MUSCULOSKELETAL: contracted bilateral upper and lower extremity.. With trace nonpitting peripheral upper and lower extremity edema. : No scrotal edema. Neuro: Opens eyes spontaneously. does not follow commands. extends LUE, withdraws x 3. Skin: Stage II-III decubitus ulcer coccyx 2 cm x 2 cm and healing ulcer left heel A/P Assessment and Plan NEUROLOGY/PSYCH Alzheimer's dementia Hypoactive delirium Depression/anxiety -Acetaminophen for fever/Dilaudid as needed for pain management. -Monitor neuro status. -Continue Provigil 400 mg daily in attempt increased alertness. On since with minimal improvement -Limit sedation PULMONARY Acute on chronic respiratory failure HCAP Previously on PRVC 14/500/1.0 Currently on T piece today at 28% FiO2 Ventilator bundle -HOB at 30 degrees -S/p #8 Shiley percutaneous trach 06/13. (Dr. Morataya/Dr. aDi). Downsized to a # 6 Shiley DFEN 08/05 -DuoNeb q6h and q2h prn. -Hypertonic saline aerosols 3% every 65 days mucolytic along with guaifenesin 400 every 85 days CARDIOVASCULAR History of Hypertension -Currently not requiring antihypertensives and/or vasopressors. -Telemetry will be continued -Continue free water to 200cc q4hr. GASTROENTEROLOGY Failure to thrive Gastroesophageal reflux disease Severe acute protein calorie malnutrition- severe Hypo-albuminemia Elevated transaminases -TF to goal as tolerated with Glucerna 1.5 goal of 50 cc an hour currently off due to high residuals Check KUB -On Pepcid.for GI prophylaxis -PeriColace twice a day for bowel regimen RENAL//FEN: Acute kidney injury Hypernatremia Hyperchloridemia Hypophosphatemia BPH Continue to Monitor renal function, Replace electrolytes as clinically indicated, placed on electrolyte protocol Renal/abdominal ultrasound revealed no hydronephrosis. INFECTION DISEASE HCAP with Acinetobacter HCAP with PSAE UTI with Proteus and ESBL Klebsiella New fever, sepsis History of E. Cloacae UTI History of MRSA in sputum, colonized History of Klebsiella in sputum, colonized Funguria with history of tropicalis and glabrata Inf disease placed on on Merrem day #6. 1 dose of ertapenem. Previously on Zosyn 3 days with 1 dose of vancomycin Micafungin, vancomycin added 09/08 Regimen as of 09/11 - Currently on Invanz, Unasyn, Levaquin and tobramycin aerosols. Noted Acinetobacter resistant. Sensitive to Zosyn and tobramycin only. Defer antibiotics to infectious disease physician recommendations Pertinent cultures 06/04 - urine - E. Cloacae 06/16 - sputum - Alla Tropicalis 06/27 blood - Staph Epi (1/2 bottles) 06/28 urine - alla glabrata 06/28 sputum - Klebsiella (intermediate to zosyn), MRSA 07/12 sputum - MRSA 07/18 sputum - MRSA, Klebsiella 07/21 sputum -MRSA, Klebsiella 07/21 blood -no growth for 2 days 07/21 urine -Alla glabrata 09/02 - blood cultures 2 -staph epi/coag negative staph 09/02: urine - Proteus, Klebsiella ESBL positive 09/03 -sputum-Pseudomonas, Proteus and gram-negative michael 09/08 - sputum -Acinetobacter 09/08 - blood cultures 2 - no growth 09/08 - urine -C tropicalis Influenza negative. ID for antibiotic recommendations. Previously on suppressive Bactrim twice a day HEMATOLOGY History of Normocytic anemia Leukocytosis -Currently no indication for transfusion of blood proximally at this time -Hemoccult stool was negative -Transfuse if hemoglobin below 7. ENDOCRINOLOGY: Hyperglycemia of critical illness Currently on Levemir 15 units twice a day. Sliding Scale insulin with Accu-Cheks every 4 hours maintain euglycemia. 14 units of/sliding scale insulin past 24 hours SKIN Left heel blister Sacral decubitus ulcer stage I -Continue Multi-Podus boots, wound care following - Continue wrist splints alternating sides daily Wound care evaluate and treat Prophylaxis - GI - Protonix - DVT - SCD/heparin Access - Utilize peripheral IV. Central line if indicated Critical Care: The total critical care time was 35 minutes. Time to perform other separately billable procedures was not included in the critical care time. German Marinelli MD Sep 12, 2016 12:28
--- NOTE | 2016-09-12 14:03 | RADRPT ---
EXAM DATE/TIME: 09/12/2016 12:39 [facility] COMPARISON: ABDOMEN KUB ONLY, July 28, 2016, 4:17. INDICATIONS : Evaluate for ileus. MEDICAL HISTORY : Alzheimer's. Hypertension. Benign prostatic hyperplasia, (BPH) Syncope. Dementia. RESP MRSA. Dyspnea. SURGICAL HISTORY : Prostatectomy. Tracheostomy. ENCOUNTER: Subsequent ACUITY: 4 - 6 days PAIN SCORE: Non-responsive. LOCATION: Abdomen, all quadrants. FINDINGS: Supine view of the abdomen was performed. The abdominal bowel gas pattern is normal. No abnormal ma sses, calcifications, or organomegaly is seen. The osseous structures are unremarkable. Gastrostomy tube in the left upper abdominal quadrant. Mild atelectatic changes in the lung bases CONCLUSION: 1. Nonobstructed bowel gas pattern without pneumoperitoneum. 2. Gastrostomy tube in left upper abdominal quadrant. 3. Minimal bibasilar atelectatic changes. Calos Marcano MD on September 12, 2016 at 13:59 Board Certified Radiologist. This report was verified electronically.
[2016-09-12] MEDS: METOCLOPRAMIDE HCL 10 MG/2 ML VIAL IV PUSH SCH ×2 (14:25→20:34)
[2016-09-12] MEDS: ERTAPENEM INJ 1,000 MG in SODIUM CHLORIDE 0.9% INJ 100 ML IV SCH (20:31)
[2016-09-12] MEDS: POVIDONE IODINE 10% SOLN 480 ML BTL TOPICAL SCH (20:33)
[2016-09-12] MEDS: LEVOFLOXACIN 750 MG PREMIX INJ 150 ML IV SCH (20:34)
[2016-09-13] VITALS (16 sets, daily range): BP systolic 96–122; BP diastolic 50–59; PULSE 79–90; RESP 14–21; TEMP 98.1–99.3; O2SAT 100
[2016-09-13] MEDS: HEPARIN SODIUM - SQ 10,000 UNITS/ML VIAL SQ SCH ×3 (01:21→23:59)
[2016-09-13] MEDS: AMPICILLIN-SULBACTAM INJ 3 GM in SODIUM CHLORIDE 0.9% INJ 100 ML IV SCH ×4 (01:22→20:24)
[2016-09-13] MEDS: RESP: ALBUTEROL 2.5 MG/IPRATROPIUM 0.5 MG NEB (SCH) INH ×4 (02:56→19:13)
[2016-09-13] MEDS: FREE WATER G-TUBE SCH ×7 (04:00→23:59)
[2016-09-13] MEDS: CHLORHEXIDINE GLUCONATE 2 % 1 PACK (2 CLOTHS) TOP SCH (04:00)
[2016-09-13] MEDS: INSULIN NovoLIN REGULAR SUPPLEMENTAL SCALE SQ SCH ×7 (04:00→23:59)
[2016-09-13] MEDS: METOCLOPRAMIDE HCL 10 MG/2 ML VIAL IV PUSH SCH ×3 (04:22→22:00)
[2016-09-13] MEDS: POVIDONE IODINE 10% SOLN 480 ML BTL TOPICAL SCH ×2 (09:00→20:27)
[2016-09-13] MEDS: INSULIN DETEMIR 100 UNITS/ML VIAL SQ SCH ×2 (09:00→20:26)
[2016-09-13] MEDS: CHLORHEXIDINE 0.12% (ORAL KIT) 15 ML CUP MT SCH ×2 (09:07→20:25)
[2016-09-13] MEDS: FAMOTIDINE 20 MG TAB NG SCH (09:09)
[2016-09-13] MEDS: SODIUM CHLORIDE 0.9% FLUSH 10 ML FLUSH IV FLUSH SCH ×2 (09:09→20:26)
[2016-09-13] MEDS: DOCUSATE SODIUM 50 MG/SENNA 8.6 MG TAB PO SCH ×2 (09:09→20:26)
[2016-09-13] MEDS: MODAFINIL 200 MG TAB PO SCH (09:09)
[2016-09-13] MEDS: NYSTATIN 100,000 U/GM PWD 15 GM BTL TOPICAL SCH ×2 (09:10→20:26)
--- NOTE | 2016-09-13 09:17 | HHI.CCPN ---
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 He is well-known to me and I have taken care of him during his 2-month prior ICU admission with us. He has a history if dementia, DM, and chronic respiratory failure requiring tracheostomy. [facility]. However, on evaluation in the ER, he was found to be tachycardic , diaphoretic. He had a serum Na 160, glucose of 600, Cr 3 (baseline around 1), lactate of 3.0, wbc 17. He was febrile as well. CXR appears clear and u/a clean. Unfortunately, the patient is unable to provide any additional history given his chronic medical state. The remainder of the history is based on my prior knowledge of the patient and chart review. I evaluated the patient in the emergency department. 09/03: Afebrile. On T piece. No acute issues overnight. Creatinine slowly correcting. 09/04: Currently resting in bed at baseline neurologic valladares. Creatinine slowly correcting. Sodium slowly correcting. Positive BM. Afebrile. 09/05: Currently on TPs. Attempt to switch to trach collar. Sodium and creatinine are cracking. At baseline neurologic valladares. Positive BM. Tolerating tube feeding. 09/06: Noted increasing O2 request up-to-date. Thick greenish secretions. X- ray revealed no acute spines. Possibly mucus plugging. We'll place on ventilator short-term. Add hypertonic saline nebs. Neurologically baseline. 09/07: Continues to be tachypneic on CPAP, rate 30-35. CXR mild diffuse interstitial infiltrates. K 3.4. No improvement in neuro status 09/08: On TP, tachypneic. Fever 102, ID following. Increased ETT secretions. No change in neuro status 09/09: Currently afebrile. Continues to have copious secretions from tracheostomy site. Failed PSV trial today. Positive BM. Tolerating tube feeding 09/10: Tmax 102.8. Currently 97.8. Tolerating tube feeds. Currently a PSV trial 04/24 at 40%. Transition of TP today. Start vancomycin and micafungin yesterday per ID. 09/11: Afebrile. Tolerating tube feeds. Positive BM. Currently on T piece trial. Noted Acinetobacter in sputum and C tropicalis in urine. Infectious disease following 09/12: Tmax 99.7. High residuals today. KUB pending. Currently T piece trial. Neurologically unchanged Subjective 09/13: Afebrile. Tolerating tube feeds today. KUB was nonspecific bowel gas pattern. Tolerated CPAP only 10 minutes today. Copious secretions persist. Objective Vital Signs Date Time Temp Pulse Resp B/P Pulse Ox O2 Delivery O2 Flow Rate FiO2 09/13/16 08:57 35 09/13/16 07:13 100 09/13/16 07:00 Mechanical Ventilator 09/13/16 06:00 80 09/13/16 04:00 98.1 21 116/59 09/10/16 08:35 8.00 Intake and Output 09/12/16 09/12/16 09/13/16 08:00 16:00 00:00 Intake Total 784 ml 760 ml 273 ml Output Total 1160.0 ml 650 ml 650 ml Balance -376.0 ml 110 ml -377 ml Result Diagram: 09/12/16 0344 09/12/16 0344 Other Results Microbiology Date/Time Procedure Status Source Growth 09/08/16 16:15 Aerobic Blood Culture - Preliminary Resulted Blood Peripheral NO GROWTH IN 4 DAYS 09/08/16 16:15 Anaerobic Blood Culture - Preliminary Resulted Blood Peripheral NO GROWTH IN 4 DAYS 09/08/16 15:45 Urine Culture - Final Complete Urine Catheterized Urine Alla Tropicalis 09/08/16 14:45 Gram Stain - Final Complete Sputum Endotracheal 09/08/16 14:45 Sputum Culture - Final Complete Acinetobacter Baumannii/Haemol Imaging Last Impressions Abdomen X-Ray 09/12/16 0000 Signed Impressions: Service Date/Time: Monday, September 12, 2016 12:39 - CONCLUSION: 1. Nonobstructed bowel gas pattern without pneumoperitoneum. 2. Gastrostomy tube in left upper abdominal quadrant. 3. Minimal bibasilar atelectatic changes. Calos Marcano MD Chest X-Ray 09/09/16 0600 Signed Impressions: Service Date/Time: Friday, September 09, 2016 04:30 - CONCLUSION: Stable interstitial opacities involving the right lung. Left lung is clear. Henri Shirley Jr., MD Upper Extremity Ultrasound 09/07/16 0000 Signed Impressions: Service Date/Time: August 09:28 - CONCLUSION: Cephalic vein thrombosis. Acosta Da Silva MD Abdomen Ultrasound 09/03/16 0000 Signed Impressions: Service Date/Time: Saturday, September 03, 2016 15:21 - CONCLUSION: 1. No acute findings. Exam somewhat limited by overlying bowel gas. Mina Varghese MD Objective Remarks GENERAL: 80 yo male patient, critically ill, currently on ventilator via tracheostomy appears in no acute distress HEAD: Normocephalic. EYES: PERRL. No scleral icterus. No scleral edema. Drainage from right eye. NECK: Supple, trachea midline. No JVD. tracheostomy in place without erythema or bleeding. CARDIOVASCULAR: RRR. S1, S2. No S4. No murmur RESPIRATORY: Positive thick secretion from tracheostomy, greenish sweeney color without blood. Few crackles appreciated in the bases bilaterally. Symmetrical excursion. GASTROINTESTINAL: Abdomen soft, non-tender, nondistended. PEG tube is in place above the umbilicus very little erythema. MUSCULOSKELETAL: contracted bilateral upper and lower extremity.. With trace nonpitting peripheral upper and lower extremity edema. : No scrotal edema. Neuro: Opens eyes spontaneously. does not follow commands. extends LUE, withdraws x 3. Skin: Stage II-III decubitus ulcer coccyx 2 cm x 2 cm and healing ulcer left heel. 2 medial right and left toe/foot ulcers A/P Assessment and Plan NEUROLOGY/PSYCH Alzheimer's dementia Hypoactive delirium Depression/anxiety -Acetaminophen for fever/Dilaudid as needed for pain management. -Monitor neuro status. -Continue Provigil 400 mg daily in attempt increased alertness. On since with minimal improvement -Limit sedation PULMONARY Acute on chronic respiratory failure HCAP Previously on PRVC 14/500/1.0/5/40 T piece trials as tolerated Ventilator bundle -HOB at 30 degrees -S/p #8 Johana percutaneous trach 06/13. (Dr. Morataya/Dr. Dai). Downsized to a # 6 Johana DFEN 08/05 -DuoNeb q6h and q2h prn. -Hypertonic saline aerosols 3% every 65 days mucolytic along with guaifenesin 400 every 85 days CARDIOVASCULAR History of Hypertension -Currently not requiring antihypertensives and/or vasopressors. -Telemetry will be continued -Continue free water to 200cc q4hr. GASTROENTEROLOGY Failure to thrive Gastroesophageal reflux disease Severe acute protein calorie malnutrition- severe Hypo-albuminemia Elevated transaminases -TF to goal as tolerated with Glucerna 1.5 goal of 50 cc an hour currently off due to high residuals Check KUB -On Pepcid.for GI prophylaxis -PeriColace twice a day for bowel regimen RENAL//FEN: Acute kidney injury Hypernatremia Hyperchloridemia Hypophosphatemia BPH Continue to Monitor renal function, Replace electrolytes as clinically indicated, placed on electrolyte protocol Renal/abdominal ultrasound revealed no hydronephrosis. INFECTION DISEASE HCAP with Acinetobacter HCAP with PSAE UTI with Proteus and ESBL Klebsiella New fever, sepsis History of E. Cloacae UTI History of MRSA in sputum, colonized History of Klebsiella in sputum, colonized Funguria with history of tropicalis and glabrata Inf disease placed on on Merrem day #6. 1 dose of ertapenem. Previously on Zosyn 3 days with 1 dose of vancomycin Micafungin, vancomycin added 09/08 Regimen as of 09/11 - Currently on Invanz, Unasyn, Levaquin and tobramycin aerosols. Noted Acinetobacter resistant. Sensitive to Zosyn and tobramycin only. Defer antibiotics to infectious disease physician recommendations Pertinent cultures 06/04 - urine - E. Cloacae 06/16 - sputum - Alla Tropicalis 06/27 blood - Staph Epi (1/2 bottles) 06/28 urine - alla glabrata 06/28 sputum - Klebsiella (intermediate to zosyn), MRSA 07/12 sputum - MRSA 07/18 sputum - MRSA, Klebsiella 07/21 sputum -MRSA, Klebsiella 07/21 blood -no growth for 2 days 07/21 urine -Alla glabrata 09/02 - blood cultures 2 -staph epi/coag negative staph 09/02: urine - Proteus, Klebsiella ESBL positive 09/03 -sputum-Pseudomonas, Proteus and gram-negative michael 09/08 - sputum -Acinetobacter 09/08 - blood cultures 2 - no growth 09/08 - urine -C tropicalis Influenza negative. ID for antibiotic recommendations. Previously on suppressive Bactrim twice a day HEMATOLOGY History of Normocytic anemia Leukocytosis -Currently no indication for transfusion of blood proximally at this time -Hemoccult stool was negative -Transfuse if hemoglobin below 7. ENDOCRINOLOGY: Hyperglycemia of critical illness Currently on Levemir 15 units twice a day. Sliding Scale insulin with Accu-Cheks every 4 hours maintain euglycemia. 14 units of/sliding scale insulin past 24 hours SKIN Left heel blister Sacral decubitus ulcer stage I -Continue Multi-Podus boots, wound care following - Continue wrist splints alternating sides daily Wound care evaluate and treat Prophylaxis - GI - Protonix - DVT - SCD/heparin Access - Utilize peripheral IV. Central line if indicated Critical Care: The total care time was 35 minutes. Time to perform other separately billable procedures was not included in the critical care time. German Marinelli MD Sep 13, 2016 09:17
[2016-09-13] MEDS: RESP: TOBRAMYCIN SULFATE 300 MG/5 ML NEB NEB SCH ×2 (09:49→19:14)
[2016-09-13 12:12] LABS: HEMATOCRIT 21.1 % (39.0-51.0); MEAN CELL VOLUME 84.5 FL (80.0-100.0); MEAN CORPUSCULAR HEMOGLOBIN 28.6 PG (27.0-34.0); MEAN CORPUSCULAR HGB CONC 33.9 % (32.0-36.0); PLATELET COUNT 255 TH/MM3 (150-450); RED BLOOD COUNT 2.49 MIL/MM3 (4.50-5.90); RED CELL DISTRIBUTION WIDTH 17.3 % (11.6-17.2); REVIEW FLAG FINAL; WHITE BLOOD COUNT 8.6 TH/MM3 (4.0-11.0)
[2016-09-13 12:38] LABS: BICARBONATE 23.9 MEQ/L (21.0-32.0); POTASSIUM 3.8 MEQ/L (3.5-5.1)
[2016-09-13] MEDS: LEVOFLOXACIN 750 MG PREMIX INJ 150 ML IV SCH (20:24)
[2016-09-13] MEDS: ERTAPENEM INJ 1,000 MG in SODIUM CHLORIDE 0.9% INJ 100 ML IV SCH (20:24)
[2016-09-14] VITALS (18 sets, daily range): BP systolic 96–117; BP diastolic 50–59; PULSE 75–97; RESP 14–16; TEMP 98.2–99.9; O2SAT 98–100
[2016-09-14] MEDS: AMPICILLIN-SULBACTAM INJ 3 GM in SODIUM CHLORIDE 0.9% INJ 100 ML IV SCH ×4 (02:42→20:58)
[2016-09-14] MEDS: INSULIN NovoLIN REGULAR SUPPLEMENTAL SCALE SQ SCH ×5 (04:00→20:00)
[2016-09-14] MEDS: FREE WATER G-TUBE SCH ×5 (04:00→20:00)
[2016-09-14] MEDS: CHLORHEXIDINE GLUCONATE 2 % 1 PACK (2 CLOTHS) TOP SCH (04:00)
--- NOTE | 2016-09-14 04:11 | RADRPT ---
EXAM DATE/TIME: 09/14/2016 02:38 [facility] COMPARISON: CHEST SINGLE AP, September 09, 2016, 4:30. INDICATIONS : Shortness of breath MEDICAL HISTORY : Hypertension. SURGICAL HISTORY : Tracheostomy ENCOUNTER: Subsequent ACUITY: 2 weeks PAIN SCORE: Non-responsive. LOCATION: Bilateral chest FINDINGS: Tracheostomy tube appears to be in place. There is no pneumothorax. There is some mild infiltrates in the right upper lung. Left lung is grossly clear. No significant change compared to the prior study. No pleural effusions. Heart size is stable. CONCLUSION: Mild infiltrate in the right upper lung. No significant changes. José Miguel Celis MD on September 14, 2016 at 4:09 Board Certified Radiologist. This report was verified electronically.
[2016-09-14] MEDS: RESP: ALBUTEROL 2.5 MG/IPRATROPIUM 0.5 MG NEB (SCH) INH ×2 (04:18→07:41)
[2016-09-14 04:22] LABS: AUTOMATED NEUTROPHIL # 6.5 TH/MM3 (1.8-7.7); BASOPHIL % 0.6 % (0.0-2.0); EOSINOPHIL % 0.2 % (0.0-4.0); HEMATOCRIT 21.9 % (39.0-51.0); LYMPH % 19.6 % (9.0-44.0); LYMPHOCYTE # 1.6 TH/MM3 (1.0-4.8); MEAN CORPUSCULAR HEMOGLOBIN 28.8 PG (27.0-34.0); MEAN CORPUSCULAR HGB CONC 34.3 % (32.0-36.0); MONO % 2.5 % (0.0-8.0); NEUT % 77.1 % (16.0-70.0); PLATELET COUNT 251 TH/MM3 (150-450); RED BLOOD COUNT 2.61 MIL/MM3 (4.50-5.90); RED CELL DISTRIBUTION WIDTH 17.3 % (11.6-17.2); WHITE BLOOD COUNT 8.4 TH/MM3 (4.0-11.0)
[2016-09-14 04:31] LABS: HEMO FLAGS AUTO DIFF
[2016-09-14 04:42] LABS: ALT (GPT) 44 U/L (12-78); ANION GAP 13 MEQ/L (5-15); AST (GOT) 43 U/L (15-37); BICARBONATE 22.1 MEQ/L (21.0-32.0); BLOOD UREA NITROGEN 16 MG/DL (7-18); CHLORIDE 105 MEQ/L (98-107); GLOMERULAR FILTRATION RATE 98 ML/MIN (>89); MAGNESIUM 2.4 MG/DL (1.5-2.5); POTASSIUM 4.1 MEQ/L (3.5-5.1); SODIUM (NA) 140 MEQ/L (136-145)
[2016-09-14 04:45] LABS: ALKALINE PHOSPHATASE 76 U/L (45-117); TOTAL BILIRUBIN ADULT 0.3 MG/DL (0.2-1.0)
[2016-09-14 05:13] LABS: SCAN/DIFF AUTO DIFF CONFIRMED
[2016-09-14] MEDS: METOCLOPRAMIDE HCL 10 MG/2 ML VIAL IV PUSH SCH ×3 (06:17→20:57)
[2016-09-14] MEDS: RESP: TOBRAMYCIN SULFATE 300 MG/5 ML NEB NEB SCH ×2 (07:41→20:00)
[2016-09-14] MEDS: DOCUSATE SODIUM 50 MG/SENNA 8.6 MG TAB PO SCH ×2 (08:00→21:00)
[2016-09-14] MEDS: INSULIN DETEMIR 100 UNITS/ML VIAL SQ SCH ×2 (08:00→21:00)
[2016-09-14] MEDS: MODAFINIL 200 MG TAB PO SCH (08:01)
[2016-09-14] MEDS: FAMOTIDINE 20 MG TAB NG SCH (08:01)
[2016-09-14] MEDS: NYSTATIN 100,000 U/GM PWD 15 GM BTL TOPICAL SCH ×2 (08:04→21:01)
[2016-09-14] MEDS: POVIDONE IODINE 10% SOLN 480 ML BTL TOPICAL SCH ×2 (08:04→21:00)
[2016-09-14] MEDS: CHLORHEXIDINE 0.12% (ORAL KIT) 15 ML CUP MT SCH ×2 (08:05→20:57)
[2016-09-14] MEDS: SODIUM CHLORIDE 0.9% FLUSH 10 ML FLUSH IV FLUSH SCH ×2 (08:06→20:59)
--- NOTE | 2016-09-14 10:37 | HHI.CCPN ---
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 He is well-known to me and I have taken care of him during his 2-month prior ICU admission with us. He has a history if dementia, DM, and chronic respiratory failure requiring tracheostomy. He was sent from the senior living for evaluation of hyperglycemia. However, on evaluation in the ER, he was found to be tachycardic , diaphoretic. He had a serum Na 160, glucose of 600, Cr 3 (baseline around 1), lactate of 3.0, wbc 17. He was febrile as well. CXR appears clear and u/a clean. Unfortunately, the patient is unable to provide any additional history given his chronic medical state. The remainder of the history is based on my prior knowledge of the patient and chart review. I evaluated the patient in the emergency department. 09/03: Afebrile. On T piece. No acute issues overnight. Creatinine slowly correcting. 09/04: Currently resting in bed at baseline neurologic valladares. Creatinine slowly correcting. Sodium slowly correcting. Positive BM. Afebrile. 09/05: Currently on TPs. Attempt to switch to trach collar. Sodium and creatinine are cracking. At baseline neurologic valladares. Positive BM. Tolerating tube feeding. 09/06: Noted increasing O2 request up-to-date. Thick greenish secretions. X- ray revealed no acute spines. Possibly mucus plugging. We'll place on ventilator short-term. Add hypertonic saline nebs. Neurologically baseline. 09/07: Continues to be tachypneic on CPAP, rate 30-35. CXR mild diffuse interstitial infiltrates. K 3.4. No improvement in neuro status 09/08: On TP, tachypneic. Fever 102, ID following. Increased ETT secretions. No change in neuro status 09/09: Currently afebrile. Continues to have copious secretions from tracheostomy site. Failed PSV trial today. Positive BM. Tolerating tube feeding 09/10: Tmax 102.8. Currently 97.8. Tolerating tube feeds. Currently a PSV trial 04/24 at 40%. Transition of TP today. Start vancomycin and micafungin yesterday per ID. 09/11: Afebrile. Tolerating tube feeds. Positive BM. Currently on T piece trial. Noted Acinetobacter in sputum and C tropicalis in urine. Infectious disease following 09/12: Tmax 99.7. High residuals today. KUB pending. Currently T piece trial. Neurologically unchanged 09/13: Afebrile. Tolerating tube feeds today. KUB was nonspecific bowel gas pattern. Tolerated CPAP only 10 minutes today. Copious secretions persist. Subjective 09/14: Afebrile. Tube feeds back at goal. Currently on CPAP trial 02/10. Continues to have copious secretions Objective Vital Signs Date Time Temp Pulse Resp B/P Pulse Ox O2 Delivery O2 Flow Rate FiO2 09/14/16 08:00 97 09/14/16 08:00 99.1 14 96/50 100 09/14/16 08:00 35 09/14/16 07:00 Mechanical Ventilator 09/10/16 08:35 8.00 Intake and Output 09/13/16 09/13/16 09/14/16 08:00 16:00 00:00 Intake Total 567 ml 1132 ml 818 ml Output Total 550 ml 1000 ml 625 ml Balance 17 ml 132 ml 193 ml Result Diagram: 09/14/16 0341 09/14/16 0341 Imaging Last Impressions Chest X-Ray 09/14/16 0600 Signed Impressions: Service Date/Time: August 02:38 - CONCLUSION: Mild infiltrate in the right upper lung. No significant changes. José Miguel Celis MD Abdomen X-Ray 09/12/16 0000 Signed Impressions: Service Date/Time: Monday, September 12, 2016 12:39 - CONCLUSION: 1. Nonobstructed bowel gas pattern without pneumoperitoneum. 2. Gastrostomy tube in left upper abdominal quadrant. 3. Minimal bibasilar atelectatic changes. Calos Marcano MD Upper Extremity Ultrasound 09/07/16 0000 Signed Impressions: Service Date/Time: August 09:28 - CONCLUSION: Cephalic vein thrombosis. K. Marquis Da Silva MD Abdomen Ultrasound 09/03/16 0000 Signed Impressions: Service Date/Time: Saturday, September 03, 2016 15:21 - CONCLUSION: 1. No acute findings. Exam somewhat limited by overlying bowel gas. Mina Varghese MD Objective Remarks GENERAL: 80 yo male patient, critically ill, currently on ventilator via tracheostomy appears in no acute distress HEAD: Normocephalic. EYES: PERRL. No scleral icterus. No scleral edema. Drainage from right eye. NECK: Supple, trachea midline. No JVD. tracheostomy in place without erythema or bleeding. CARDIOVASCULAR: RRR. S1, S2. No S4. No murmur RESPIRATORY: Positive thick secretion from tracheostomy, greenish sweeney color without blood. Few crackles appreciated in the bases bilaterally. Symmetrical excursion. GASTROINTESTINAL: Abdomen soft, non-tender, nondistended. PEG tube is in place above the umbilicus very little erythema. MUSCULOSKELETAL: contracted bilateral upper and lower extremity.. With trace nonpitting peripheral upper and lower extremity edema. : No scrotal edema. Neuro: Opens eyes spontaneously. does not follow commands. extends LUE, withdraws x 3. Skin: Stage II-III decubitus ulcer coccyx 2 cm x 2 cm and healing ulcer left heel. 2 small medial right and left toe/foot ulcers A/P Assessment and Plan NEUROLOGY/PSYCH Alzheimer's dementia Hypoactive delirium Depression/anxiety -Acetaminophen for fever/Dilaudid as needed for pain management. -Monitor neuro status. -Continue Provigil 400 mg daily in attempt increased alertness. On since with minimal improvement -Limit sedation PULMONARY Acute on chronic respiratory failure HCAP Previously on PRVC 14/500/1.0/5/40 PSV trial 15/5 @ 40% as tolerated. Ventilator bundle -HOB at 30 degrees -S/p #8 Shiley percutaneous trach 06/13. (Dr. Morataya/Dr. Dai). Downsized to a # 6 Shijuan alberto DFEN 08/05 -DuoNeb q6h and q2h prn. -Hypertonic saline aerosols 3% every 65 days mucolytic along with guaifenesin 400 every 85 days CARDIOVASCULAR History of Hypertension -Currently not requiring antihypertensives and/or vasopressors. -Telemetry will be continued -Continue free water to 200cc q4hr. GASTROENTEROLOGY Failure to thrive Gastroesophageal reflux disease Severe acute protein calorie malnutrition- severe Hypo-albuminemia Elevated transaminases -TF to goal as tolerated with Glucerna 1.5 goal of 50 cc an hour Check KUB -On Pepcid.for GI prophylaxis -PeriColace twice a day for bowel regimen RENAL//FEN: Acute kidney injury Hypernatremia Hyperchloridemia Hypophosphatemia BPH Continue to Monitor renal function, Replace electrolytes as clinically indicated, placed on electrolyte protocol Renal/abdominal ultrasound revealed no hydronephrosis. INFECTION DISEASE HCAP with Acinetobacter HCAP with PSAE UTI with Proteus and ESBL Klebsiella New fever, sepsis History of E. 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 1 dose of ertapenem. Previously on Zosyn 3 days with 1 dose of vancomycin Micafungin, vancomycin added 09/08 Regimen as of 09/11 - Currently on Invanz, Unasyn, Levaquin and tobramycin aerosols. Noted Acinetobacter resistant. Sensitive to Unasyn and tobramycin only. Defer antibiotics to infectious disease physician recommendations Pertinent cultures 06/04 - urine - E. Cloacae 06/16 - sputum - Alla Tropicalis 06/27 blood - Staph Epi (1/2 bottles) 06/28 urine - alla glabrata 06/28 sputum - Klebsiella (intermediate to zosyn), MRSA 07/12 sputum - MRSA 07/18 sputum - MRSA, Klebsiella 07/21 sputum -MRSA, Klebsiella 07/21 blood -no growth for 2 days 07/21 urine -Alla glabrata 09/02 - blood cultures 2 -staph epi/coag negative staph 09/02: urine - Proteus, Klebsiella ESBL positive 09/03 -sputum-Pseudomonas, Proteus and gram-negative michael 09/08 - sputum -Acinetobacter 09/08 - blood cultures 2 - no growth 09/08 - urine -C tropicalis Influenza negative. ID for antibiotic recommendations. Previously on suppressive Bactrim twice a day HEMATOLOGY History of Normocytic anemia Leukocytosis -Currently no indication for transfusion of blood proximally at this time -Hemoccult stool was negative -Transfuse if hemoglobin below 7. ENDOCRINOLOGY: Hyperglycemia of critical illness Currently on Levemir 15 units twice a day. Sliding Scale insulin with Accu-Cheks every 4 hours maintain euglycemia. 2 units of/sliding scale insulin past 24 hours SKIN Left heel blister Sacral decubitus ulcer stage I -Continue Multi-Podus boots, wound care following - Continue wrist splints alternating sides daily Wound care evaluate and treat Prophylaxis - GI - Protonix - DVT - SCD/heparin Access - Utilize peripheral IV. Central line if indicated Critical Care: The total care time was 35 minutes. Time to perform other separately billable procedures was not included in the critical care time. German Marinelli MD Sep 14, 2016 10:37
[2016-09-14] MEDS: HEPARIN SODIUM - SQ 10,000 UNITS/ML VIAL SQ SCH (11:36)
[2016-09-14] MEDS ORDERED: SODIUM PHOSPHATE INJ 15 MMOL in SODIUM CHLORIDE 0.9% INJ 150 ML IV ONE (12:00)
--- NOTE | 2016-09-14 16:51 | HHI.IDPN ---
Subjective Subjective Remarks fever up to 99.9 large amount of secretions Antibiotics unasyn ertapenem levaquin gent INH Lines no central lines Past Medical History Reviewed Allergies: Coded Allergies: *MDRO Multi-Drug Resistant Organism (Verified Adverse Reaction, Unknown, ) MRSA (sputum) - 06/28/16, 07/12/16, 07/21/16 MRSA PCR Screen POSITIVE - 09/03/2016 ESBL K. pneumoniae (urine) - 09/02/16 MDR-Acinetobacter (sputum)-09/08/16 Objective . Vital Signs Date Time Temp Pulse Resp B/P Pulse Ox O2 Delivery O2 Flow Rate FiO2 09/14/16 14:00 87 09/14/16 12:31 100 35 09/14/16 12:00 99.9 94 16 96/50 100 09/14/16 12:00 35 09/14/16 12:00 94 09/14/16 10:00 96 09/14/16 08:00 97 09/14/16 08:00 99.1 91 14 96/50 100 09/14/16 08:00 35 09/14/16 07:35 100 35 09/14/16 07:00 100 Mechanical Ventilator 35 09/14/16 06:00 86 09/14/16 04:19 100 35 09/14/16 04:00 98.8 78 14 101/50 100 09/14/16 04:00 78 09/14/16 04:00 35 09/14/16 02:00 75 09/14/16 01:17 100 35 09/14/16 00:00 98.7 75 14 105/57 100 09/14/16 00:00 75 09/14/16 00:00 35 09/13/16 22:00 79 09/13/16 20:00 98.4 81 16 97/50 100 09/13/16 20:00 81 09/13/16 20:00 35 09/13/16 19:14 100 35 09/13/16 19:00 100 Mechanical Ventilator 35 09/13/16 09/13/16 09/14/16 15:00 23:00 07:00 Intake Total 1132 ml 818 ml 983 ml Output Total 1000 ml 625 ml 1025 ml Balance 132 ml 193 ml -42 ml IV Total 150 ml 269 ml 247 ml Tube Feeding 382 ml 319 ml 336 ml Other 600 ml 230 ml 400 ml Output Urine Total 600 ml 425 ml 825 ml Stool Total 400 ml 200 ml 200 ml . Laboratory Tests Test 09/13/16 09/14/16 11:22 03:41 White Blood Count 8.6 TH/MM3 8.4 TH/MM3 Red Blood Count 2.49 MIL/MM3 2.61 MIL/MM3 Hemoglobin 7.1 GM/DL 7.5 GM/DL Hematocrit 21.1 % 21.9 % Mean Corpuscular Volume 84.5 FL 84.0 FL Mean Corpuscular Hemoglobin 28.6 PG 28.8 PG Mean Corpuscular Hemoglobin 33.9 % 34.3 % Concent Red Cell Distribution Width 17.3 % 17.3 % Platelet Count 255 TH/MM3 251 TH/MM3 Mean Platelet Volume 8.8 FL 8.5 FL Neutrophils (%) (Auto) 77.1 % Lymphocytes (%) (Auto) 19.6 % Monocytes (%) (Auto) 2.5 % Eosinophils (%) (Auto) 0.2 % Basophils (%) (Auto) 0.6 % Neutrophils # (Auto) 6.5 TH/MM3 Lymphocytes # (Auto) 1.6 TH/MM3 Monocytes # (Auto) 0.2 TH/MM3 Eosinophils # (Auto) 0.0 TH/MM3 Basophils # (Auto) 0.0 TH/MM3 CBC Comment AUTO DIFF Differential Comment AUTO DIFF CONFIRMED Laboratory Tests Test 09/13/16 09/14/16 11:22 03:41 Sodium Level 140 MEQ/L 140 MEQ/L Potassium Level 3.8 MEQ/L 4.1 MEQ/L Chloride Level 107 MEQ/L 105 MEQ/L Carbon Dioxide Level 23.9 MEQ/L 22.1 MEQ/L Anion Gap 9 MEQ/L 13 MEQ/L Blood Urea Nitrogen 17 MG/DL 16 MG/DL Creatinine 0.80 MG/DL 0.76 MG/DL Estimat Glomerular Filtration 92 ML/MIN 98 ML/MIN Rate Random Glucose 150 MG/DL 110 MG/DL Calcium Level 9.0 MG/DL 9.0 MG/DL Phosphorus Level 2.4 MG/DL Magnesium Level 2.4 MG/DL Total Bilirubin 0.3 MG/DL Aspartate Amino Transf 43 U/L (AST/SGOT) Alanine Aminotransferase 44 U/L (ALT/SGPT) Alkaline Phosphatase 76 U/L Total Protein 7.1 GM/DL Albumin 2.1 GM/DL Imaging Last Impressions Chest X-Ray 09/09/16 0600 Signed Impressions: Service Date/Time: Friday, September 09, 2016 04:30 - CONCLUSION: Stable interstitial opacities involving the right lung. Left lung is clear. Henri Shirley Jr., MD Upper Extremity Ultrasound 09/07/16 0000 Signed Impressions: Service Date/Time: August 09:28 - CONCLUSION: Cephalic vein thrombosis. K. Marquis Da Silva MD Abdomen Ultrasound 09/03/16 0000 Signed Impressions: Service Date/Time: Saturday, September 03, 2016 15:21 - CONCLUSION: 1. No acute findings. Exam somewhat limited by overlying bowel gas. Mina Varghese MD Physical Exam CONSTITUTIONAL/GENERAL: Not responding, on vent SKIN: No jaundice, rashes, or lesions. Warm and dry HEAD: Atraumatic. Normocephalic. EYES: Pupils equal and round and reactive. No scleral icterus. No injection or drainage. ENT: Nose without bleeding or purulent drainage. oral mucosae moist NECK: Trachea midline. Supple, nontender. Trach collar in place , site OK CARDIOVASCULAR: Regular rate and rhythm without murmurs, gallops, or rubs. RESPIRATORY/CHEST: rhonchi to auscultation. GASTROINTESTINAL: Abdomen soft, no reaction to palpation. mildly istended. Bowel sounds present. Dignishield in place with liquid brown stool GENITOURINARY: Without palpable bladder distension. Mckeon catheter in place with clear yellow urine MUSCULOSKELETAL: Extremities without clubbing, cyanosis, + trace pedal edema. No joint effusion noted. No mottling. contracted pt NEUROLOGICAL: Not responding - at baseline PSYCHIATRIC: unable to assess LINE no evidence of infection Assessment & Plan Remarks UTI, ESBL Kleb pneumo in clx PSAE PNA, vs tracheobronchitis New clx with MDRO Acietobacter R to meropenem Fevers - ? source ? VAP vs new UTI ve other infx or drug fever Respiratory failure, has chronic trach - currently on T-piece, but breathing looks laboured or unusual Advanced Dementia Diarrhea, ho recent abx use; C.diff negative PLAN cont Ertapenem for ESBL UTI cont Levaquine for PSAE cont Unasyn for Acinteobacter cont tobra nebs repeat sputum clx Follow temps Monitor progress dw Dr BigElle Guerra MD Sep 14, 2016 16:51
[2016-09-14] MEDS: LEVOFLOXACIN 750 MG PREMIX INJ 150 ML IV SCH (20:00)
[2016-09-14] MEDS: ERTAPENEM INJ 1,000 MG in SODIUM CHLORIDE 0.9% INJ 100 ML IV SCH (21:09)
[2016-09-15] VITALS (18 sets, daily range): BP systolic 106–119; BP diastolic 54–59; PULSE 76–87; RESP 14–23; TEMP 96.6–99.5; O2SAT 100
[2016-09-15] MEDS: AMPICILLIN-SULBACTAM INJ 3 GM in SODIUM CHLORIDE 0.9% INJ 100 ML IV SCH ×4 (00:35→19:53)
[2016-09-15] MEDS: HEPARIN SODIUM - SQ 10,000 UNITS/ML VIAL SQ SCH ×2 (00:35→10:41)
[2016-09-15] MEDS: INSULIN NovoLIN REGULAR SUPPLEMENTAL SCALE SQ SCH ×5 (04:00→19:53)
[2016-09-15] MEDS: CHLORHEXIDINE GLUCONATE 2 % 1 PACK (2 CLOTHS) TOP SCH (04:00)
[2016-09-15] MEDS: FREE WATER G-TUBE SCH ×6 (04:00→19:51)
[2016-09-15] MEDS: METOCLOPRAMIDE HCL 10 MG/2 ML VIAL IV PUSH SCH ×3 (05:23→19:54)
[2016-09-15] MEDS: CHLORHEXIDINE 0.12% (ORAL KIT) 15 ML CUP MT SCH ×2 (08:00→19:54)
[2016-09-15] MEDS: RESP: TOBRAMYCIN SULFATE 300 MG/5 ML NEB NEB SCH ×2 (08:00→19:44)
[2016-09-15] MEDS: POVIDONE IODINE 10% SOLN 480 ML BTL TOPICAL SCH ×2 (09:00→19:54)
[2016-09-15] MEDS: NYSTATIN 100,000 U/GM PWD 15 GM BTL TOPICAL SCH ×2 (09:00→19:55)
[2016-09-15] MEDS: DOCUSATE SODIUM 50 MG/SENNA 8.6 MG TAB PO SCH ×2 (10:13→19:54)
[2016-09-15] MEDS: FAMOTIDINE 20 MG TAB NG SCH (10:13)
[2016-09-15] MEDS: INSULIN DETEMIR 100 UNITS/ML VIAL SQ SCH ×2 (10:14→19:52)
[2016-09-15] MEDS: SODIUM CHLORIDE 0.9% FLUSH 10 ML FLUSH IV FLUSH SCH ×2 (10:15→19:52)
[2016-09-15] MEDS: MODAFINIL 200 MG TAB PO SCH (16:40)
--- NOTE | 2016-09-15 19:04 | HHI.CCPN ---
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 He is well-known to me and I have taken care of him during his 2-month prior ICU admission with us. He has a history if dementia, DM, and chronic respiratory failure requiring tracheostomy. He was sent from the senior living for evaluation of hyperglycemia. However, on evaluation in the ER, he was found to be tachycardic , diaphoretic. He had a serum Na 160, glucose of 600, Cr 3 (baseline around 1), lactate of 3.0, wbc 17. He was febrile as well. CXR appears clear and u/a clean. Unfortunately, the patient is unable to provide any additional history given his chronic medical state. The remainder of the history is based on my prior knowledge of the patient and chart review. I evaluated the patient in the emergency department. 09/03: Afebrile. On T piece. No acute issues overnight. Creatinine slowly correcting. 09/04: Currently resting in bed at baseline neurologic valladarse. Creatinine slowly correcting. Sodium slowly correcting. Positive BM. Afebrile. 09/05: Currently on TPs. Attempt to switch to trach collar. Sodium and creatinine are cracking. At baseline neurologic valladares. Positive BM. Tolerating tube feeding. 09/06: Noted increasing O2 request up-to-date. Thick greenish secretions. X- ray revealed no acute spines. Possibly mucus plugging. We'll place on ventilator short-term. Add hypertonic saline nebs. Neurologically baseline. 09/07: Continues to be tachypneic on CPAP, rate 30-35. CXR mild diffuse interstitial infiltrates. K 3.4. No improvement in neuro status 09/08: On TP, tachypneic. Fever 102, ID following. Increased ETT secretions. No change in neuro status 09/09: Currently afebrile. Continues to have copious secretions from tracheostomy site. Failed PSV trial today. Positive BM. Tolerating tube feeding 09/10: Tmax 102.8. Currently 97.8. Tolerating tube feeds. Currently a PSV trial 04/24 at 40%. Transition of TP today. Start vancomycin and micafungin yesterday per ID. 09/11: Afebrile. Tolerating tube feeds. Positive BM. Currently on T piece trial. Noted Acinetobacter in sputum and C tropicalis in urine. Infectious disease following 09/12: Tmax 99.7. High residuals today. KUB pending. Currently T piece trial. Neurologically unchanged 09/13: Afebrile. Tolerating tube feeds today. KUB was nonspecific bowel gas pattern. Tolerated CPAP only 10 minutes today. Copious secretions persist. 09/14: Afebrile. Tube feeds back at goal. Currently on CPAP trial 15/5. Continues to have copious secretions Subjective 09/15: Afebrile. Tube feeds at goal. Tolerating PSV trial. Continues to have copious secretions. No change in neurological status. Objective Vital Signs Date Time Temp Pulse Resp B/P Pulse Ox O2 Delivery O2 Flow Rate FiO2 09/15/16 18:00 87 09/15/16 17:30 35 09/15/16 17:27 100 09/15/16 16:00 97.7 17 114/55 09/15/16 07:00 Mechanical Ventilator Intake and Output 09/14/16 09/14/16 09/15/16 08:00 16:00 00:00 Intake Total 983 ml 1004 ml 1028 ml Output Total 1025 ml 650 ml 650 ml Balance -42 ml 354 ml 378 ml Result Diagram: 09/14/16 0341 09/14/16 0341 Other Results Microbiology Date/Time Procedure Status Source Growth 09/14/16 22:10 Gram Stain - Final Resulted Sputum Endotracheal 09/14/16 22:10 Sputum Culture - Preliminary Resulted Sputum Endotracheal NO GROWTH IN 24 HOURS. Imaging Last Impressions Chest X-Ray 09/14/16 0600 Signed Impressions: Service Date/Time: August 02:38 - CONCLUSION: Mild infiltrate in the right upper lung. No significant changes. José Miguel Celis MD Abdomen X-Ray 09/12/16 0000 Signed Impressions: Service Date/Time: Monday, September 12, 2016 12:39 - CONCLUSION: 1. Nonobstructed bowel gas pattern without pneumoperitoneum. 2. Gastrostomy tube in left upper abdominal quadrant. 3. Minimal bibasilar atelectatic changes. Calos Marcano MD Upper Extremity Ultrasound 09/07/16 0000 Signed Impressions: Service Date/Time: August 09:28 - CONCLUSION: Cephalic vein thrombosis. Acosta Da Silva MD Abdomen Ultrasound 09/03/16 0000 Signed Impressions: Service Date/Time: Saturday, September 03, 2016 15:21 - CONCLUSION: 1. No acute findings. Exam somewhat limited by overlying bowel gas. Mina Varghese MD Objective Remarks GENERAL: 80 yo male patient, critically ill, currently on ventilator via tracheostomy appears in no acute distress HEAD: Normocephalic. EYES: PERRL. No scleral icterus. No scleral edema. Drainage from right eye. NECK: Supple, trachea midline. No JVD. tracheostomy in place without erythema or bleeding. CARDIOVASCULAR: RRR. S1, S2. No S4. No murmur RESPIRATORY: Positive thick secretion from tracheostomy, greenish sweeney color without blood. Few crackles appreciated in the bases bilaterally. Symmetrical excursion. GASTROINTESTINAL: Abdomen soft, non-tender, nondistended. PEG tube is in place above the umbilicus very little erythema. MUSCULOSKELETAL: contracted bilateral upper and lower extremity.. With trace nonpitting peripheral upper and lower extremity edema. : No scrotal edema. Neuro: Opens eyes spontaneously. does not follow commands. extends LUE, withdraws x 3. Skin: Stage II-III decubitus ulcer coccyx 2 cm x 2 cm and healing ulcer left heel. 2 small medial right and left toe/foot ulcers A/P Assessment and Plan NEUROLOGY/PSYCH Alzheimer's dementia Hypoactive delirium Depression/anxiety -Acetaminophen for fever/Dilaudid as needed for pain management. -Monitor neuro status. -Continue Provigil 400 mg daily in attempt increased alertness. On since with minimal improvement -Limit sedation PULMONARY Acute on chronic respiratory failure HCAP Previously on PRVC 14/500/1.0/5/40 PSV trial 15/5 @ 40% as tolerated. Ventilator bundle -HOB at 30 degrees -S/p #8 Shiley percutaneous trach 06/13. (Dr. Morataya/Dr. Dai). Downsized to a # 6 Johana DFEN 08/05 -DuoNeb q6h and q2h prn. -Hypertonic saline aerosols 3% every 6 as mucolytic CARDIOVASCULAR History of Hypertension -Currently not requiring antihypertensives and/or vasopressors. -Telemetry will be continued -Continue free water to 200cc q6hr. GASTROENTEROLOGY Failure to thrive Gastroesophageal reflux disease Severe acute protein calorie malnutrition- severe Hypo-albuminemia Elevated transaminases -TF to goal as tolerated with Glucerna 1.5 goal of 55 cc an hour one packet Nathan twice a day -On Pepcid.for GI prophylaxis -PeriColace twice a day for bowel regimen - On Reglan for GI motility RENAL//FEN: Acute kidney injury - resolved BPH Continue to Monitor renal function, Replace electrolytes as clinically indicated, placed on ICU electrolyte protocol Renal/abdominal ultrasound revealed no hydronephrosis. INFECTION DISEASE HCAP with Acinetobacter HCAP with PSAE UTI with Proteus and ESBL Klebsiella New fever, sepsis History of E. 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 1 dose of ertapenem. Previously on Zosyn 3 days with 1 dose of vancomycin Micafungin, vancomycin added 09/08 Regimen as of 09/11 - Currently on Invanz, Unasyn, Levaquin and tobramycin aerosols. Noted Acinetobacter resistant. Sensitive to Unasyn and tobramycin only. Pertinent cultures 06/04 - urine - E. Cloacae 06/16 - sputum - Alla Tropicalis 06/27 blood - Staph Epi (1/2 bottles) 06/28 urine - alla glabrata 06/28 sputum - Klebsiella (intermediate to zosyn), MRSA 07/12 sputum - MRSA 07/18 sputum - MRSA, Klebsiella 07/21 sputum -MRSA, Klebsiella 07/21 blood -no growth for 2 days 07/21 urine -Alla glabrata 09/02 - blood cultures 2 -staph hominis 09/02: urine - Proteus, Klebsiella ESBL positive 09/03 -sputum-Pseudomonas 09/08 - sputum -Acinetobacter 09/08 - blood cultures 2 - no growth 09/08 - urine -C tropicalis 09/14 - sputum - no growth Influenza negative. ID /Dr. Cardenas for antibiotic recommendations. Previously on suppressive Bactrim twice a day HEMATOLOGY History of Normocytic anemia Leukocytosis -Currently no indication for transfusion of blood proximally at this time -Hemoccult stool was negative -Transfuse if hemoglobin below 7. ENDOCRINOLOGY: Hyperglycemia of critical illness Currently on Levemir 15 units twice a day. Sliding Scale insulin with Accu-Cheks every 4 hours maintain euglycemia. 4 units of sliding scale insulin past 24 hours SKIN Left heel blister Sacral decubitus ulcer stage I -Continue Multi-Podus boots, wound care following - Continue wrist splints alternating sides daily Betadine twice daily to open Wound care evaluate and treat Prophylaxis - GI - Pepcid - DVT - SCD/heparin Access - Utilize peripheral IV. Central line if indicated Critical Care: The total care time was 35 minutes. Time to perform other separately billable procedures was not included in the critical care time. Kvng Amin and anum Vitale are decision-makers. defers to drew Vitale and [place] to make decision making together. Requests full code. This is been in place for the past several months.. German Marinelli MD Sep 15, 2016 19:04 German Marinelli MD Sep 15, 2016 19:04
--- NOTE | 2016-09-15 19:45 | HHI.IDPN ---
Subjective Subjective Remarks no fever neurologically the sqme tolerates TF copious secretions Antibiotics unasyn ertapenem levaquin gent INH Lines no central lines Past Medical History Reviewed Allergies: Coded Allergies: *MDRO Multi-Drug Resistant Organism (Verified Adverse Reaction, Unknown, ) MRSA (sputum) - 06/28/16, 07/12/16, 07/21/16 MRSA PCR Screen POSITIVE - 09/03/2016 ESBL K. pneumoniae (urine) - 09/02/16 MDR-Acinetobacter (sputum)-09/08/16 Objective . Vital Signs Date Time Temp Pulse Resp B/P Pulse Ox O2 Delivery O2 Flow Rate FiO2 09/15/16 18:00 87 09/15/16 17:30 35 09/15/16 17:27 100 35 09/15/16 16:00 86 09/15/16 16:00 97.7 86 17 114/55 100 09/15/16 16:00 35 09/15/16 14:00 83 09/15/16 12:21 35 09/15/16 12:20 100 35 09/15/16 12:00 97.2 80 15 113/59 100 09/15/16 12:00 80 09/15/16 12:00 35 09/15/16 10:00 76 09/15/16 09:40 100 35 09/15/16 08:15 35 09/15/16 08:00 96.6 80 16 110/58 100 09/15/16 08:00 80 09/15/16 08:00 35 09/15/16 07:00 100 Mechanical Ventilator 35 09/15/16 06:00 79 09/15/16 04:37 100 35 09/15/16 04:00 35 09/15/16 04:00 99.1 77 14 106/58 100 09/15/16 04:00 77 09/15/16 02:00 82 09/15/16 01:58 100 35 09/15/16 00:00 35 09/15/16 00:00 99.5 82 23 119/59 100 09/15/16 00:00 82 09/14/16 22:00 83 09/14/16 20:02 98 35 09/14/16 20:00 35 09/14/16 20:00 83 09/14/16 20:00 98.2 83 14 117/59 100 09/14/16 09/14/16 09/15/16 15:00 23:00 07:00 Intake Total 1004 ml 1028 ml 862 ml Output Total 650 ml 650 ml 600 ml Balance 354 ml 378 ml 262 ml Intake Oral 0 ml 0 ml IV Total 250 ml 438 ml 352 ml Tube Feeding 354 ml 390 ml 310 ml Other 400 ml 200 ml 200 ml Output Urine Total 450 ml 600 ml 500 ml Stool Total 200 ml 50 ml 100 ml . Laboratory Tests Test 09/14/16 03:41 White Blood Count 8.4 TH/MM3 Red Blood Count 2.61 MIL/MM3 Hemoglobin 7.5 GM/DL Hematocrit 21.9 % Mean Corpuscular Volume 84.0 FL Mean Corpuscular Hemoglobin 28.8 PG Mean Corpuscular Hemoglobin 34.3 % Concent Red Cell Distribution Width 17.3 % Platelet Count 251 TH/MM3 Mean Platelet Volume 8.5 FL Neutrophils (%) (Auto) 77.1 % Lymphocytes (%) (Auto) 19.6 % Monocytes (%) (Auto) 2.5 % Eosinophils (%) (Auto) 0.2 % Basophils (%) (Auto) 0.6 % Neutrophils # (Auto) 6.5 TH/MM3 Lymphocytes # (Auto) 1.6 TH/MM3 Monocytes # (Auto) 0.2 TH/MM3 Eosinophils # (Auto) 0.0 TH/MM3 Basophils # (Auto) 0.0 TH/MM3 CBC Comment AUTO DIFF Differential Comment AUTO DIFF CONFIRMED Laboratory Tests Test 09/14/16 03:41 Sodium Level 140 MEQ/L Potassium Level 4.1 MEQ/L Chloride Level 105 MEQ/L Carbon Dioxide Level 22.1 MEQ/L Anion Gap 13 MEQ/L Blood Urea Nitrogen 16 MG/DL Creatinine 0.76 MG/DL Estimat Glomerular Filtration 98 ML/MIN Rate Random Glucose 110 MG/DL Calcium Level 9.0 MG/DL Phosphorus Level 2.4 MG/DL Magnesium Level 2.4 MG/DL Total Bilirubin 0.3 MG/DL Aspartate Amino Transf 43 U/L (AST/SGOT) Alanine Aminotransferase 44 U/L (ALT/SGPT) Alkaline Phosphatase 76 U/L Total Protein 7.1 GM/DL Albumin 2.1 GM/DL Microbiology Date/Time Procedure Status Source Growth 09/14/16 22:10 Gram Stain - Final Resulted Sputum Endotracheal 09/14/16 22:10 Sputum Culture - Preliminary Resulted Sputum Endotracheal NO GROWTH IN 24 HOURS. Imaging Last Impressions Chest X-Ray 09/14/16 0600 Signed Impressions: Service Date/Time: August 02:38 - CONCLUSION: Mild infiltrate in the right upper lung. No significant changes. José Miguel Celis MD Abdomen X-Ray 09/12/16 0000 Signed Impressions: Service Date/Time: Monday, September 12, 2016 12:39 - CONCLUSION: 1. Nonobstructed bowel gas pattern without pneumoperitoneum. 2. Gastrostomy tube in left upper abdominal quadrant. 3. Minimal bibasilar atelectatic changes. Calos Marcano MD Upper Extremity Ultrasound 09/07/16 0000 Signed Impressions: Service Date/Time: August 09:28 - CONCLUSION: Cephalic vein thrombosis. Acosta Da Silva MD Abdomen Ultrasound 09/03/16 0000 Signed Impressions: Service Date/Time: Saturday, September 03, 2016 15:21 - CONCLUSION: 1. No acute findings. Exam somewhat limited by overlying bowel gas. Mina Varghese MD Physical Exam CONSTITUTIONAL/GENERAL: Not responding, on vent SKIN: No jaundice, rashes, or lesions. Warm and dry HEAD: Atraumatic. Normocephalic. EYES: Pupils equal and round and reactive. No scleral icterus. No injection or drainage. ENT: Nose without bleeding or purulent drainage. oral mucosae moist NECK: Trachea midline. Supple, nontender. Trach collar in place , site OK CARDIOVASCULAR: Regular rate and rhythm without murmurs, gallops, or rubs. RESPIRATORY/CHEST: diffuse rhonchi to auscultation. GASTROINTESTINAL: Abdomen soft, no reaction to palpation. mildly istended. Bowel sounds present. Dignishield in place with liquid brown stool GENITOURINARY: Without palpable bladder distension. Mckeon catheter in place with clear yellow urine MUSCULOSKELETAL: Extremities without clubbing, cyanosis, + trace pedal edema. No joint effusion noted. No mottling. contracted pt NEUROLOGICAL: Not responding - at baseline PSYCHIATRIC: unable to assess LINE no evidence of infection Assessment & Plan Remarks UTI, ESBL Kleb pneumo in clx PSAE PNA, vs tracheobronchitis New clx with MDRO Acietobacter R to meropenem Fevers - ? source ? VAP vs new UTI ve other infx or drug fever Respiratory failure, has chronic trach - currently on T-piece, but breathing looks laboured or unusual Advanced Dementia Diarrhea, ho recent abx use; C.diff negative PLAN complete Ertapenem for ESBL UTI on 09/19 (14 days total) cont Levaquine for PSAE cont Unasyn for Acinteobacter cont tobra nebs fu repeat sputum clx Follow temps Monitor progress Elle Cardenas MD Sep 15, 2016 19:45
[2016-09-15] MEDS: ERTAPENEM INJ 1,000 MG in SODIUM CHLORIDE 0.9% INJ 100 ML IV SCH (19:52)
[2016-09-15] MEDS: LEVOFLOXACIN 750 MG PREMIX INJ 150 ML IV SCH (19:53)
[2016-09-15] MEDS: JUVEN POWDER 1 PACK G-TUBE SCH (19:53)
[2016-09-15] MEDS: RESP: SODIUM CHLORIDE 3% 4 ML NEB NEB SCH (22:07)
[2016-09-15] MEDS: RESP: ALBUTEROL 2.5 MG/IPRATROPIUM 0.5 MG NEB (SCH) NEB (22:07)
[2016-09-16] VITALS (19 sets, daily range): BP systolic 99–122; BP diastolic 55–66; PULSE 84–104; RESP 14–20; TEMP 97.9–100; O2SAT 100
[2016-09-16] MEDS: HEPARIN SODIUM - SQ 10,000 UNITS/ML VIAL SQ SCH ×3 (00:53→23:45)
[2016-09-16] MEDS: AMPICILLIN-SULBACTAM INJ 3 GM in SODIUM CHLORIDE 0.9% INJ 100 ML IV SCH ×4 (01:12→19:54)
--- NOTE | 2016-09-16 03:06 | RADRPT ---
EXAM DATE/TIME: 09/16/2016 01:36 [facility] COMPARISON: No previous studies available for comparison. INDICATIONS : Shortness of breath, possible pulmonary disease. MEDICAL HISTORY : Hypertension. Sepsis. SURGICAL HISTORY : Tracheostomy ENCOUNTER: Subsequent ACUITY: 3 weeks PAIN SCORE: Non-responsive. LOCATION: Bilateral chest FINDINGS: Mild patchy air space opacities persist, right more so the left and both has not significantly change d. No large effusion. No pneumothorax. Heart size stable, then normal limits. Trach collar again noted, appears normally positioned. CONCLUSION: No significant change demonstrated. Gary Griffin MD on September 16, 2016 at 3:04 Board Certified Radiologist. This report was verified electronically.
[2016-09-16] MEDS: RESP: SODIUM CHLORIDE 3% 4 ML NEB NEB SCH ×4 (03:48→20:14)
[2016-09-16] MEDS: RESP: ALBUTEROL 2.5 MG/IPRATROPIUM 0.5 MG NEB (SCH) NEB ×4 (03:48→20:14)
[2016-09-16] MEDS: INSULIN NovoLIN REGULAR SUPPLEMENTAL SCALE SQ SCH ×7 (03:56→23:46)
[2016-09-16] MEDS: CHLORHEXIDINE GLUCONATE 2 % 1 PACK (2 CLOTHS) TOP SCH (03:57)
[2016-09-16] MEDS: FREE WATER G-TUBE SCH ×5 (04:39→23:44)
[2016-09-16] MEDS: METOCLOPRAMIDE HCL 10 MG/2 ML VIAL IV PUSH SCH ×3 (04:40→20:21)
[2016-09-16 07:09] LABS: BASOPHIL # 0.1 TH/MM3 (0-0.2); BASOPHIL % 0.6 % (0.0-2.0); EOSINOPHIL % 0.5 % (0.0-4.0); HEMATOCRIT 24.9 % (39.0-51.0); HEMO FLAGS DIFF FINAL; LYMPH % 17.7 % (9.0-44.0); LYMPHOCYTE # 1.6 TH/MM3 (1.0-4.8); MEAN CORPUSCULAR HEMOGLOBIN 29.4 PG (27.0-34.0); MEAN CORPUSCULAR HGB CONC 34.6 % (32.0-36.0); MONO % 2.9 % (0.0-8.0); NEUT % 78.3 % (16.0-70.0); PLATELET COUNT 284 TH/MM3 (150-450); RED BLOOD COUNT 2.93 MIL/MM3 (4.50-5.90); RED CELL DISTRIBUTION WIDTH 18.1 % (11.6-17.2); WHITE BLOOD COUNT 8.9 TH/MM3 (4.0-11.0)
[2016-09-16 07:14] LABS: ALKALINE PHOSPHATASE 88 U/L (45-117); TOTAL BILIRUBIN ADULT 0.3 MG/DL (0.2-1.0)
[2016-09-16 07:39] LABS: ALT (GPT) 32 U/L (12-78); AST (GOT) 32 U/L (15-37)
[2016-09-16 07:41] LABS: ANION GAP 10 MEQ/L (5-15); BICARBONATE 22.1 MEQ/L (21.0-32.0); CHLORIDE 109 MEQ/L (98-107); GLOMERULAR FILTRATION RATE 88 ML/MIN (>89); MAGNESIUM 2.5 MG/DL (1.5-2.5); SODIUM (NA) 141 MEQ/L (136-145)
[2016-09-16 07:43] LABS: BLOOD UREA NITROGEN 18 MG/DL (7-18)
[2016-09-16] MEDS: POVIDONE IODINE 10% SOLN 480 ML BTL TOPICAL SCH ×2 (09:00→21:00)
[2016-09-16] MEDS: JUVEN POWDER 1 PACK G-TUBE SCH ×2 (09:00→20:21)
[2016-09-16] MEDS: SODIUM CHLORIDE 0.9% FLUSH 10 ML FLUSH IV FLUSH SCH ×2 (09:12→20:04)
[2016-09-16] MEDS: INSULIN DETEMIR 100 UNITS/ML VIAL SQ SCH ×2 (09:12→19:55)
[2016-09-16] MEDS: DOCUSATE SODIUM 50 MG/SENNA 8.6 MG TAB PO SCH ×2 (09:12→19:55)
[2016-09-16] MEDS: MODAFINIL 200 MG TAB PO SCH (09:12)
[2016-09-16] MEDS: POTASSIUM PHOSPHATE MONOBASIC 500 MG TAB PO PRN ×2 (09:13→14:50)
[2016-09-16] MEDS: NYSTATIN 100,000 U/GM PWD 15 GM BTL TOPICAL SCH ×2 (09:13→20:24)
[2016-09-16] MEDS: FAMOTIDINE 20 MG TAB NG SCH (09:15)
[2016-09-16] MEDS: RESP: TOBRAMYCIN SULFATE 300 MG/5 ML NEB NEB SCH ×2 (09:26→20:14)
[2016-09-16] MEDS: CHLORHEXIDINE 0.12% (ORAL KIT) 15 ML CUP MT SCH ×2 (10:38→20:01)
--- NOTE | 2016-09-16 16:57 | HHI.CCPN ---
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 He is well-known to me and I have taken care of him during his 2-month prior ICU admission with us. He has a history if dementia, DM, and chronic respiratory failure requiring tracheostomy. He was sent from the assisted for evaluation of hyperglycemia. However, on evaluation in the ER, he was found to be tachycardic , diaphoretic. He had a serum Na 160, glucose of 600, Cr 3 (baseline around 1), lactate of 3.0, wbc 17. He was febrile as well. CXR appears clear and u/a clean. Unfortunately, the patient is unable to provide any additional history given his chronic medical state. The remainder of the history is based on my prior knowledge of the patient and chart review. I evaluated the patient in the emergency department. 09/03: Afebrile. On T piece. No acute issues overnight. Creatinine slowly correcting. 09/04: Currently resting in bed at baseline neurologic valladares. Creatinine slowly correcting. Sodium slowly correcting. Positive BM. Afebrile. 09/05: Currently on TPs. Attempt to switch to trach collar. Sodium and creatinine are cracking. At baseline neurologic valladares. Positive BM. Tolerating tube feeding. 09/06: Noted increasing O2 request up-to-date. Thick greenish secretions. X- ray revealed no acute spines. Possibly mucus plugging. We'll place on ventilator short-term. Add hypertonic saline nebs. Neurologically baseline. 09/07: Continues to be tachypneic on CPAP, rate 30-35. CXR mild diffuse interstitial infiltrates. K 3.4. No improvement in neuro status 09/08: On TP, tachypneic. Fever 102, ID following. Increased ETT secretions. No change in neuro status 09/09: Currently afebrile. Continues to have copious secretions from tracheostomy site. Failed PSV trial today. Positive BM. Tolerating tube feeding 09/10: Tmax 102.8. Currently 97.8. Tolerating tube feeds. Currently a PSV trial 04/24 at 40%. Transition of TP today. Start vancomycin and micafungin yesterday per ID. 09/11: Afebrile. Tolerating tube feeds. Positive BM. Currently on T piece trial. Noted Acinetobacter in sputum and C tropicalis in urine. Infectious disease following 09/12: Tmax 99.7. High residuals today. KUB pending. Currently T piece trial. Neurologically unchanged 09/13: Afebrile. Tolerating tube feeds today. KUB was nonspecific bowel gas pattern. Tolerated CPAP only 10 minutes today. Copious secretions persist. 09/14: Afebrile. Tube feeds back at goal. Currently on CPAP trial 15/5. Continues to have copious secretions 09/15: Afebrile. Tube feeds at goal. Tolerating PSV trial. Continues to have copious secretions. No change in neurological status. Subjective 09/16 Tolerating CPAP 15/5. Tolerating tube feeds. Objective Vital Signs Date Time Temp Pulse Resp B/P Pulse Ox O2 Delivery O2 Flow Rate FiO2 09/16/16 16:00 35 09/16/16 16:00 87 09/16/16 16:00 98.8 16 106/58 100 09/16/16 07:00 Mechanical Ventilator Intake and Output 09/15/16 09/15/16 09/16/16 08:00 16:00 00:00 Intake Total 862 ml 790 ml 885 ml Output Total 600 ml 575 ml 550 ml Balance 262 ml 215 ml 335 ml Result Diagram: 09/16/16 0602 09/16/16 0602 Other Results Microbiology Date/Time Procedure Status Source Growth 09/14/16 22:10 Gram Stain - Final Complete Sputum Endotracheal 09/14/16 22:10 Sputum Culture - Final Complete Sputum Endotracheal NO GROWTH IN 48 HOURS. Imaging Last Impressions Chest X-Ray 09/14/16 0600 Signed Impressions: Service Date/Time: August 02:38 - CONCLUSION: Mild infiltrate in the right upper lung. No significant changes. José Miguel Celis MD Abdomen X-Ray 09/12/16 0000 Signed Impressions: Service Date/Time: Monday, September 12, 2016 12:39 - CONCLUSION: 1. Nonobstructed bowel gas pattern without pneumoperitoneum. 2. Gastrostomy tube in left upper abdominal quadrant. 3. Minimal bibasilar atelectatic changes. Calos Marcano MD Upper Extremity Ultrasound 09/07/16 0000 Signed Impressions: Service Date/Time: August 09:28 - CONCLUSION: Cephalic vein thrombosis. Acosta Da Silva MD Abdomen Ultrasound 09/03/16 0000 Signed Impressions: Service Date/Time: Saturday, September 03, 2016 15:21 - CONCLUSION: 1. No acute findings. Exam somewhat limited by overlying bowel gas. Mina Varghese MD Objective Remarks GENERAL: 80 yo male patient, critically ill, currently on ventilator via tracheostomy appears in no acute distress HEAD: Normocephalic. EYES: PERRL. No scleral icterus. No scleral edema. Drainage from right eye. NECK: Supple, trachea midline. No JVD. tracheostomy in place without erythema or bleeding. CARDIOVASCULAR: RRR. S1, S2. No S4. No murmur RESPIRATORY: P Few crackles appreciated in the bases bilaterally. Symmetrical excursion. GASTROINTESTINAL: Abdomen soft, non-tender, nondistended. PEG tube is in place above the umbilicus very little erythema. MUSCULOSKELETAL: contracted bilateral upper and lower extremity.. With trace nonpitting peripheral upper and lower extremity edema. : No scrotal edema. Neuro: Opens eyes spontaneously. does not follow commands. extends LUE, withdraws x 3. Skin: Stage II-III decubitus ulcer coccyx 2 cm x 2 cm and healing ulcer left heel. 2 small medial right and left toe/foot ulcers A/P Assessment and Plan NEUROLOGY/PSYCH Alzheimer's dementia Hypoactive delirium Depression/anxiety -Acetaminophen for fever/Dilaudid as needed for pain management. -Monitor neuro status. -Continue Provigil 400 mg daily in attempt increased alertness. On since with minimal improvement -Limit sedation PULMONARY Acute on chronic respiratory failure HCAP Previously on PRVC 14/500/1.0/5/40 PSV trial 155 @ 40% as tolerated. Ventilator bundle -HOB at 30 degrees -S/p #8 Shiley percutaneous trach 06/13. (Dr. Morataya/Dr. Dai). Downsized to a # 6 Shiley DFEN 08/05 -DuoNeb q6h and q2h prn. -Hypertonic saline aerosols 3% every 6 as mucolytic CARDIOVASCULAR History of Hypertension -Currently not requiring antihypertensives and/or vasopressors. -Telemetry will be continued -Continue free water to 200cc q6hr. GASTROENTEROLOGY Failure to thrive Gastroesophageal reflux disease Severe acute protein calorie malnutrition- severe Hypo-albuminemia Elevated transaminases -TF to goal as tolerated with Glucerna 1.5 goal of 55 cc an hour one packet Nathan twice a day per nutrition recommendations. -On Pepcid.for GI prophylaxis -PeriColace twice a day for bowel regimen - On Reglan for GI motility RENAL//FEN: Acute kidney injury - resolved BPH Continue to Monitor renal function, Replace electrolytes as clinically indicated, placed on ICU electrolyte protocol Renal/abdominal ultrasound revealed no hydronephrosis. INFECTION DISEASE HCAP with Acinetobacter HCAP with PSAE UTI with Proteus and ESBL Klebsiella New fever, sepsis History of E. Cloacae UTI History of MRSA in sputum, colonized History of Klebsiella in sputum, colonized Funguria with history of tropicalis and glabrata Abx per ID: Ertapenem to be completed 09/19, Unasyn 09/11, tobramycin nebs 300 every 12 hours, Levaquin 09/11 Noted Acinetobacter resistant. Sensitive to Unasyn and tobramycin only. Pertinent cultures 06/04 - urine - E. Cloacae 06/16 - sputum - Alla Tropicalis 06/27 blood - Staph Epi (1/2 bottles) 06/28 urine - alla glabrata 06/28 sputum - Klebsiella (intermediate to zosyn), MRSA 07/12 sputum - MRSA 07/18 sputum - MRSA, Klebsiella 07/21 sputum -MRSA, Klebsiella 07/21 blood -no growth for 2 days 07/21 urine -Alla glabrata 09/02 - blood cultures 2 -staph hominis 09/02: urine - Proteus, Klebsiella ESBL positive 09/03 -sputum-Pseudomonas 09/08 - sputum -Acinetobacter 09/08 - blood cultures 2 - no growth 09/08 - urine -C tropicalis 09/14 - sputum - no growth Influenza negative. ID /Dr. Cardenas for antibiotic recommendations. Previously on suppressive Bactrim twice a day HEMATOLOGY History of Normocytic anemia Leukocytosis -Currently no indication for transfusion of blood proximally at this time -Hemoccult stool was negative -Transfuse if hemoglobin below 7. ENDOCRINOLOGY: Hyperglycemia of critical illness Currently on Levemir 15 units twice a day. Medium dose Sliding Scale insulin with Accu-Cheks every 4 hours maintain euglycemia. SKIN Left heel blister Sacral decubitus ulcer stage I -Continue Multi-Podus boots, wound care following - Continue wrist splints alternating sides daily Betadine twice daily to open Wound care evaluate and treat Prophylaxis - GI - Pepcid - DVT - SCD/heparin Access Central line if indicated Level 3 f/u. Kvng Amin and son Winifred are decision-makers. defers to sons Winifred and Milan to make decision making together. Requests full code. This is been in place for the past several months.. Piedad Wong MD Sep 16, 2016 16:57 Piedad Wong MD Sep 16, 2016 16:57
[2016-09-16] MEDS: LEVOFLOXACIN 750 MG PREMIX INJ 150 ML IV SCH (20:00)
[2016-09-16] MEDS: ERTAPENEM INJ 1,000 MG in SODIUM CHLORIDE 0.9% INJ 100 ML IV SCH (20:22)
[2016-09-17] VITALS (16 sets, daily range): BP systolic 100–117; BP diastolic 52–57; PULSE 81–97; RESP 13–22; TEMP 98.3–99.3; O2SAT 98–100
[2016-09-17] MEDS: CHLORHEXIDINE GLUCONATE 2 % 1 PACK (2 CLOTHS) TOP SCH (02:36)
[2016-09-17] MEDS: AMPICILLIN-SULBACTAM INJ 3 GM in SODIUM CHLORIDE 0.9% INJ 100 ML IV SCH ×4 (02:36→19:57)
[2016-09-17] MEDS: RESP: ALBUTEROL 2.5 MG/IPRATROPIUM 0.5 MG NEB (SCH) NEB ×4 (03:15→20:06)
[2016-09-17] MEDS: RESP: SODIUM CHLORIDE 3% 4 ML NEB NEB SCH ×4 (03:15→20:06)
[2016-09-17] MEDS: INSULIN NovoLIN REGULAR SUPPLEMENTAL SCALE SQ SCH ×5 (04:09→19:58)
[2016-09-17] MEDS: FREE WATER G-TUBE SCH ×4 (05:00→23:58)
[2016-09-17] MEDS: METOCLOPRAMIDE HCL 10 MG/2 ML VIAL IV PUSH SCH ×3 (05:01→21:16)
[2016-09-17] MEDS: CHLORHEXIDINE 0.12% (ORAL KIT) 15 ML CUP MT SCH ×2 (07:34→19:57)
[2016-09-17] MEDS: DOCUSATE SODIUM 50 MG/SENNA 8.6 MG TAB PO SCH ×2 (08:38→19:58)
[2016-09-17] MEDS: FAMOTIDINE 20 MG TAB NG SCH (08:38)
[2016-09-17] MEDS: SODIUM CHLORIDE 0.9% FLUSH 10 ML FLUSH IV FLUSH SCH ×2 (08:38→19:56)
[2016-09-17] MEDS: MODAFINIL 200 MG TAB PO SCH (08:39)
[2016-09-17] MEDS: INSULIN DETEMIR 100 UNITS/ML VIAL SQ SCH ×2 (08:39→19:58)
[2016-09-17] MEDS: POVIDONE IODINE 10% SOLN 480 ML BTL TOPICAL SCH ×2 (08:40→19:59)
[2016-09-17] MEDS: NYSTATIN 100,000 U/GM PWD 15 GM BTL TOPICAL SCH ×2 (08:40→20:00)
[2016-09-17] MEDS: JUVEN POWDER 1 PACK G-TUBE SCH ×2 (09:00→19:58)
[2016-09-17] MEDS: RESP: TOBRAMYCIN SULFATE 300 MG/5 ML NEB NEB SCH ×2 (09:10→20:06)
[2016-09-17] MEDS: HEPARIN SODIUM - SQ 10,000 UNITS/ML VIAL SQ SCH (11:17)
[2016-09-17] MEDS: LEVOFLOXACIN 750 MG PREMIX INJ 150 ML IV SCH (19:54)
[2016-09-17] MEDS: ERTAPENEM INJ 1,000 MG in SODIUM CHLORIDE 0.9% INJ 100 ML IV SCH (20:33)
--- NOTE | 2016-09-17 21:59 | HHI.CCPN ---
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 He is well-known to me and I have taken care of him during his 2-month prior ICU admission with us. He has a history if dementia, DM, and chronic respiratory failure requiring tracheostomy. He was sent from the senior living for evaluation of hyperglycemia. However, on evaluation in the ER, he was found to be tachycardic , diaphoretic. He had a serum Na 160, glucose of 600, Cr 3 (baseline around 1), lactate of 3.0, wbc 17. He was febrile as well. CXR appears clear and u/a clean. Unfortunately, the patient is unable to provide any additional history given his chronic medical state. The remainder of the history is based on my prior knowledge of the patient and chart review. I evaluated the patient in the emergency department. 09/03: Afebrile. On T piece. No acute issues overnight. Creatinine slowly correcting. 09/04: Currently resting in bed at baseline neurologic valladares. Creatinine slowly correcting. Sodium slowly correcting. Positive BM. Afebrile. 09/05: Currently on TPs. Attempt to switch to trach collar. Sodium and creatinine are cracking. At baseline neurologic valladares. Positive BM. Tolerating tube feeding. 09/06: Noted increasing O2 request up-to-date. Thick greenish secretions. X- ray revealed no acute spines. Possibly mucus plugging. We'll place on ventilator short-term. Add hypertonic saline nebs. Neurologically baseline. 09/07: Continues to be tachypneic on CPAP, rate 30-35. CXR mild diffuse interstitial infiltrates. K 3.4. No improvement in neuro status 09/08: On TP, tachypneic. Fever 102, ID following. Increased ETT secretions. No change in neuro status 09/09: Currently afebrile. Continues to have copious secretions from tracheostomy site. Failed PSV trial today. Positive BM. Tolerating tube feeding 09/10: Tmax 102.8. Currently 97.8. Tolerating tube feeds. Currently a PSV trial 04/24 at 40%. Transition of TP today. Start vancomycin and micafungin yesterday per ID. 09/11: Afebrile. Tolerating tube feeds. Positive BM. Currently on T piece trial. Noted Acinetobacter in sputum and C tropicalis in urine. Infectious disease following 09/12: Tmax 99.7. High residuals today. KUB pending. Currently T piece trial. Neurologically unchanged 09/13: Afebrile. Tolerating tube feeds today. KUB was nonspecific bowel gas pattern. Tolerated CPAP only 10 minutes today. Copious secretions persist. 09/14: Afebrile. Tube feeds back at goal. Currently on CPAP trial 15/5. Continues to have copious secretions 09/15: Afebrile. Tube feeds at goal. Tolerating PSV trial. Continues to have copious secretions. No change in neurological status. 09/16 Tolerating CPAP 15/5. Tolerating tube feeds. Subjective 09/17 Tolerating Tpiece 6 hours. Objective Vital Signs Date Time Temp Pulse Resp B/P Pulse Ox O2 Delivery O2 Flow Rate FiO2 09/17/16 18:00 97 09/17/16 16:00 99.3 22 107/55 100 09/17/16 16:00 T-Piece 40 Intake and Output 09/16/16 09/16/16 09/17/16 08:00 16:00 00:00 Intake Total 715 ml 885 ml 1028 ml Output Total 600 ml 1375 ml 600 ml Balance 115 ml -490 ml 428 ml Result Diagram: 09/16/16 0602 09/16/16 0602 Other Results Microbiology Date/Time Procedure Status Source Growth 09/14/16 22:10 Gram Stain - Final Complete Sputum Endotracheal 09/14/16 22:10 Sputum Culture - Final Complete Sputum Endotracheal NO GROWTH IN 48 HOURS. Imaging Last Impressions Chest X-Ray 09/14/16 0600 Signed Impressions: Service Date/Time: August 02:38 - CONCLUSION: Mild infiltrate in the right upper lung. No significant changes. José Miguel Celis MD Abdomen X-Ray 09/12/16 0000 Signed Impressions: Service Date/Time: Monday, September 12, 2016 12:39 - CONCLUSION: 1. Nonobstructed bowel gas pattern without pneumoperitoneum. 2. Gastrostomy tube in left upper abdominal quadrant. 3. Minimal bibasilar atelectatic changes. Calos Marcano MD Upper Extremity Ultrasound 09/07/16 0000 Signed Impressions: Service Date/Time: August 09:28 - CONCLUSION: Cephalic vein thrombosis. Acosta Da Silva MD Abdomen Ultrasound 09/03/16 0000 Signed Impressions: Service Date/Time: Saturday, September 03, 2016 15:21 - CONCLUSION: 1. No acute findings. Exam somewhat limited by overlying bowel gas. Mina Varghese MD Objective Remarks GENERAL: 80 yo male patient, chronically critically ill. HEAD: Normocephalic. EYES: PERRL. No scleral icterus. No scleral edema. NECK: Supple, trachea midline. No JVD. tracheostomy in place without erythema or bleeding. CARDIOVASCULAR: RRR. S1, S2. No S4. No murmur RESPIRATORY: Coarse bilateral breath sounds but breathing comfortably on T piece without accessory muscle use. GASTROINTESTINAL: Abdomen soft, non-tender, nondistended. PEG tube is in place MUSCULOSKELETAL: contracted bilateral upper and lower extremity.. With trace nonpitting peripheral upper and lower extremity edema. : No scrotal edema. Neuro: Opens eyes spontaneously. does not follow commands. extends LUE, withdraws x 3. Skin: Stage II-III decubitus ulcer coccyx 2 cm x 2 cm and healing ulcer left heel. 2 small medial right and left toe/foot ulcers A/P Assessment and Plan NEUROLOGY/PSYCH Alzheimer's dementia Hypoactive delirium Depression/anxiety -Acetaminophen for fever/Dilaudid as needed for pain management. -Monitor neuro status. -Continue Provigil 400 mg daily in attempt increased alertness. On since with minimal improvement -Limit sedation PULMONARY Acute on chronic respiratory failure HCAP Previously on PRVC 14/500/1.0/40 Tolerating CPAP, Now doing Tpiece trial up to 8 hours as tolerated but will rest on CPAP after that due to concern for risk of atelectasis and plugging. Continue to extend Tpiece as tolerated. -HOB at 30 degrees -S/p #8 Shiley percutaneous trach 06/13. (Dr. Morataya/Dr. Dai). Downsized to a # 6 [place] DFEN 08/05 -DuoNeb q6h and q2h prn. -Hypertonic saline aerosols 3% every 6 as mucolytic CARDIOVASCULAR History of Hypertension -Currently not requiring antihypertensives and/or vasopressors. -Telemetry will be continued -Continue free water to 200cc q6hr. GASTROENTEROLOGY Failure to thrive Gastroesophageal reflux disease Severe acute protein calorie malnutrition- severe Hypo-albuminemia Elevated transaminases -TF to goal as tolerated with Glucerna 1.5 goal of 55 cc an hour one packet Nathan twice a day per nutrition recommendations. -On Pepcid.for GI prophylaxis -PeriColace twice a day for bowel regimen - On Reglan for GI motility RENAL//FEN: Acute kidney injury - resolved BPH Continue to Monitor renal function, Replace electrolytes as clinically indicated, placed on ICU electrolyte protocol Renal/abdominal ultrasound revealed no hydronephrosis. INFECTION DISEASE HCAP with Acinetobacter HCAP with PSAE UTI with Proteus and ESBL Klebsiella New fever, sepsis History of E. Cloacae UTI History of MRSA in sputum, colonized History of Klebsiella in sputum, colonized Funguria with history of tropicalis and glabrata Abx per ID: Ertapenem to be completed 09/19, Unasyn 09/11, tobramycin nebs 300 every 12 hours, Levaquin 09/11 Noted Acinetobacter resistant. Sensitive to Unasyn and tobramycin only. Pertinent cultures 06/04 - urine - E. Cloacae 06/16 - sputum - Alla Tropicalis 06/27 blood - Staph Epi (1/2 bottles) 06/28 urine - alla glabrata 06/28 sputum - Klebsiella (intermediate to zosyn), MRSA 07/12 sputum - MRSA 07/18 sputum - MRSA, Klebsiella 07/21 sputum -MRSA, Klebsiella 07/21 blood -no growth for 2 days 07/21 urine -Alla glabrata 09/02 - blood cultures 2 -staph hominis 09/02: urine - Proteus, Klebsiella ESBL positive 09/03 -sputum-Pseudomonas 09/08 - sputum -Acinetobacter 09/08 - blood cultures 2 - no growth 09/08 - urine -C tropicalis 09/14 - sputum - no growth Influenza negative. ID /Dr. Cardenas for antibiotic recommendations. Previously on suppressive Bactrim twice a day HEMATOLOGY History of Normocytic anemia Leukocytosis -Currently no indication for transfusion of blood proximally at this time -Hemoccult stool was negative -Transfuse if hemoglobin below 7. ENDOCRINOLOGY: Hyperglycemia of critical illness Currently on Levemir 15 units twice a day. Medium dose Sliding Scale insulin with Accu-Cheks every 4 hours maintain euglycemia. SKIN Left heel blister Sacral decubitus ulcer stage I -Continue Multi-Podus boots, wound care following - Continue wrist splints alternating sides daily Betadine twice daily to open Wound care evaluate and treat Prophylaxis - GI - Pepcid - DVT - SCD/heparin Access piv Level 2 f/u. Kvng Amin and son Winifred are decision-makers. defers to sons Winifred and Milan to make decision making together. Requests full code. This is been in place for the past several months.. Piedad Wong MD Sep 17, 2016 21:59 Piedad Wong MD Sep 17, 2016 21:59
[2016-09-18] VITALS (17 sets, daily range): BP systolic 97–116; BP diastolic 51–72; PULSE 85–96; RESP 18–22; TEMP 98.5–98.8; O2SAT 0–100
[2016-09-18] MEDS: INSULIN NovoLIN REGULAR SUPPLEMENTAL SCALE SQ SCH ×6 (00:01→20:00)
[2016-09-18] MEDS: AMPICILLIN-SULBACTAM INJ 3 GM in SODIUM CHLORIDE 0.9% INJ 100 ML IV SCH ×4 (01:01→20:00)
[2016-09-18] MEDS: CHLORHEXIDINE GLUCONATE 2 % 1 PACK (2 CLOTHS) TOP SCH (02:12)
[2016-09-18] MEDS: RESP: SODIUM CHLORIDE 3% 4 ML NEB NEB SCH ×4 (03:14→21:35)
[2016-09-18] MEDS: RESP: ALBUTEROL 2.5 MG/IPRATROPIUM 0.5 MG NEB (SCH) NEB ×4 (03:14→21:34)
[2016-09-18] MEDS: FREE WATER G-TUBE SCH ×3 (06:00→17:01)
[2016-09-18] MEDS: METOCLOPRAMIDE HCL 10 MG/2 ML VIAL IV PUSH SCH ×3 (06:06→21:47)
[2016-09-18 06:40] LABS: BICARBONATE 25.5 MEQ/L (21.0-32.0); POTASSIUM 4.1 MEQ/L (3.5-5.1)
[2016-09-18] MEDS: RESP: TOBRAMYCIN SULFATE 300 MG/5 ML NEB NEB SCH ×2 (08:01→20:57)
[2016-09-18] MEDS: CHLORHEXIDINE 0.12% (ORAL KIT) 15 ML CUP MT SCH ×2 (08:13→20:28)
[2016-09-18] MEDS: INSULIN DETEMIR 100 UNITS/ML VIAL SQ SCH ×2 (08:14→20:29)
[2016-09-18] MEDS: MODAFINIL 200 MG TAB PO SCH (08:14)
[2016-09-18] MEDS: FAMOTIDINE 20 MG TAB NG SCH (08:14)
[2016-09-18] MEDS: SODIUM CHLORIDE 0.9% FLUSH 10 ML FLUSH IV FLUSH SCH ×2 (08:15→20:27)
[2016-09-18] MEDS: JUVEN POWDER 1 PACK G-TUBE SCH ×2 (08:15→21:00)
[2016-09-18] MEDS: DOCUSATE SODIUM 50 MG/SENNA 8.6 MG TAB PO SCH ×2 (08:15→20:27)
[2016-09-18] MEDS: NYSTATIN 100,000 U/GM PWD 15 GM BTL TOPICAL SCH ×2 (08:15→20:29)
[2016-09-18] MEDS: POVIDONE IODINE 10% SOLN 480 ML BTL TOPICAL SCH ×2 (08:16→20:29)
[2016-09-18] MEDS: HEPARIN SODIUM - SQ 10,000 UNITS/ML VIAL SQ SCH ×2 (11:37)
--- NOTE | 2016-09-18 19:03 | HHI.CCPN ---
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 He is well-known to me and I have taken care of him during his 2-month prior ICU admission with us. He has a history if dementia, DM, and chronic respiratory failure requiring tracheostomy. He was sent from the care home for evaluation of hyperglycemia. However, on evaluation in the ER, he was found to be tachycardic , diaphoretic. He had a serum Na 160, glucose of 600, Cr 3 (baseline around 1), lactate of 3.0, wbc 17. He was febrile as well. CXR appears clear and u/a clean. Unfortunately, the patient is unable to provide any additional history given his chronic medical state. The remainder of the history is based on my prior knowledge of the patient and chart review. I evaluated the patient in the emergency department. 09/03: Afebrile. On T piece. No acute issues overnight. Creatinine slowly correcting. 09/04: Currently resting in bed at baseline neurologic valladares. Creatinine slowly correcting. Sodium slowly correcting. Positive BM. Afebrile. 09/05: Currently on TPs. Attempt to switch to trach collar. Sodium and creatinine are cracking. At baseline neurologic valladares. Positive BM. Tolerating tube feeding. 09/06: Noted increasing O2 request up-to-date. Thick greenish secretions. X- ray revealed no acute spines. Possibly mucus plugging. We'll place on ventilator short-term. Add hypertonic saline nebs. Neurologically baseline. 09/07: Continues to be tachypneic on CPAP, rate 30-35. CXR mild diffuse interstitial infiltrates. K 3.4. No improvement in neuro status 09/08: On TP, tachypneic. Fever 102, ID following. Increased ETT secretions. No change in neuro status 09/09: Currently afebrile. Continues to have copious secretions from tracheostomy site. Failed PSV trial today. Positive BM. Tolerating tube feeding 09/10: Tmax 102.8. Currently 97.8. Tolerating tube feeds. Currently a PSV trial 04/24 at 40%. Transition of TP today. Start vancomycin and micafungin yesterday per ID. 09/11: Afebrile. Tolerating tube feeds. Positive BM. Currently on T piece trial. Noted Acinetobacter in sputum and C tropicalis in urine. Infectious disease following 09/12: Tmax 99.7. High residuals today. KUB pending. Currently T piece trial. Neurologically unchanged 09/13: Afebrile. Tolerating tube feeds today. KUB was nonspecific bowel gas pattern. Tolerated CPAP only 10 minutes today. Copious secretions persist. 09/14: Afebrile. Tube feeds back at goal. Currently on CPAP trial 15/5. Continues to have copious secretions 09/15: Afebrile. Tube feeds at goal. Tolerating PSV trial. Continues to have copious secretions. No change in neurological status. 09/16 Tolerating CPAP 15/5. Tolerating tube feeds. 09/17 Tolerating Tpiece 6 hours. Subjective 09/18: tolerated t-piece for 9 hours today. otherwise no change. Objective Vital Signs Date Time Temp Pulse Resp B/P Pulse Ox O2 Delivery O2 Flow Rate FiO2 09/18/16 18:00 92 09/18/16 16:00 28 09/18/16 16:00 98.5 18 97/51 99 09/18/16 10:15 T-piece 8.00 Intake and Output 09/17/16 09/17/16 09/18/16 08:00 16:00 00:00 Intake Total 792 ml 968 ml 858 ml Output Total 500 ml 1300 ml 650 ml Balance 292 ml -332 ml 208 ml Result Diagram: 09/16/16 0602 09/18/16 0515 Imaging Last Impressions Chest X-Ray 09/14/16 0600 Signed Impressions: Service Date/Time: August 02:38 - CONCLUSION: Mild infiltrate in the right upper lung. No significant changes. José Miguel Celis MD Abdomen X-Ray 09/12/16 0000 Signed Impressions: Service Date/Time: Monday, September 12, 2016 12:39 - CONCLUSION: 1. Nonobstructed bowel gas pattern without pneumoperitoneum. 2. Gastrostomy tube in left upper abdominal quadrant. 3. Minimal bibasilar atelectatic changes. Calos Marcano MD Upper Extremity Ultrasound 09/07/16 0000 Signed Impressions: Service Date/Time: August 09:28 - CONCLUSION: Cephalic vein thrombosis. K. Marquis Da Silva MD Abdomen Ultrasound 09/03/16 0000 Signed Impressions: Service Date/Time: Saturday, September 03, 2016 15:21 - CONCLUSION: 1. No acute findings. Exam somewhat limited by overlying bowel gas. Mina Varghese MD Objective Remarks GENERAL: 80 yo male patient, chronically critically ill. HEAD: Normocephalic. EYES: PERRL. No scleral icterus. No scleral edema. NECK: Supple, trachea midline. No JVD. tracheostomy in place without erythema or bleeding. CARDIOVASCULAR: RRR. RESPIRATORY: Coarse bilateral breath sounds but breathing comfortably on T piece without accessory muscle use. GASTROINTESTINAL: Abdomen soft, non-tender, nondistended. PEG tube is in place MUSCULOSKELETAL: contracted bilateral upper and lower extremity.. With trace nonpitting peripheral upper and lower extremity edema. : No scrotal edema. Neuro: Opens eyes spontaneously. does not follow commands. extends LUE, withdraws x 3. Skin: Stage II-III decubitus ulcer coccyx 2 cm x 2 cm and healing ulcer left heel. 2 small medial right and left toe/foot ulcers A/P Assessment and Plan NEUROLOGY/PSYCH Alzheimer's dementia Hypoactive delirium Depression/anxiety -Acetaminophen for fever/Dilaudid as needed for pain management. -Monitor neuro status. -Continue Provigil 400 mg daily in attempt increased alertness. On since with minimal improvement -Limit sedation PULMONARY Acute on chronic respiratory failure HCAP Previously on PRVC 14/500/1.0/ Tolerating CPAP, Now doing Tpiece trial up to 8 hours as tolerated but will rest on CPAP after that due to concern for risk of atelectasis and plugging. Continue to extend Tpiece as tolerated. -HOB at 30 degrees -S/p #8 Shiley percutaneous trach 06/13. (Dr. Morataya/Dr. Dai). Downsized to a # 6 Shiley DFEN 08/05 -DuoNeb q6h and q2h prn. -Hypertonic saline aerosols 3% every 6 as mucolytic CARDIOVASCULAR History of Hypertension -Currently not requiring antihypertensives and/or vasopressors. -Telemetry will be continued -Continue free water to 200cc q6hr. GASTROENTEROLOGY Failure to thrive Gastroesophageal reflux disease Severe acute protein calorie malnutrition- severe Hypo-albuminemia Elevated transaminases -TF to goal as tolerated with Glucerna 1.5 goal of 55 cc an hour one packet Nathan twice a day per nutrition recommendations. -On Pepcid.for GI prophylaxis -PeriColace twice a day for bowel regimen - On Reglan for GI motility RENAL//FEN: Acute kidney injury - resolved BPH Continue to Monitor renal function, Replace electrolytes as clinically indicated, placed on ICU electrolyte protocol Renal/abdominal ultrasound revealed no hydronephrosis. INFECTION DISEASE HCAP with Acinetobacter HCAP with PSAE UTI with Proteus and ESBL Klebsiella New fever, sepsis History of E. Cloacae UTI History of MRSA in sputum, colonized History of Klebsiella in sputum, colonized Funguria with history of tropicalis and glabrata Abx per ID: Ertapenem to be completed 09/19, Unasyn 09/11, tobramycin nebs 300 every 12 hours, Levaquin 09/11 Noted Acinetobacter resistant. Sensitive to Unasyn and tobramycin only. Pertinent cultures 06/04 - urine - E. Cloacae 06/16 - sputum - Alla Tropicalis 06/27 blood - Staph Epi (1/2 bottles) 06/28 urine - alla glabrata 06/28 sputum - Klebsiella (intermediate to zosyn), MRSA 07/12 sputum - MRSA 07/18 sputum - MRSA, Klebsiella 07/21 sputum -MRSA, Klebsiella 07/21 blood -no growth for 2 days 07/21 urine -Alla glabrata 09/02 - blood cultures 2 -staph hominis 09/02: urine - Proteus, Klebsiella ESBL positive 09/03 -sputum-Pseudomonas 09/08 - sputum -Acinetobacter 09/08 - blood cultures 2 - no growth 09/08 - urine -C tropicalis 09/14 - sputum - no growth Influenza negative. ID /Dr. Cardenas for antibiotic recommendations. Previously on suppressive Bactrim twice a day HEMATOLOGY History of Normocytic anemia Leukocytosis -Currently no indication for transfusion of blood proximally at this time -Hemoccult stool was negative -Transfuse if hemoglobin below 7. ENDOCRINOLOGY: Hyperglycemia of critical illness Currently on Levemir 15 units twice a day. Medium dose Sliding Scale insulin with Accu-Cheks every 4 hours maintain euglycemia. SKIN Left heel blister Sacral decubitus ulcer stage I -Continue Multi-Podus boots, wound care following - Continue wrist splints alternating sides daily Betadine twice daily to open Wound care evaluate and treat Prophylaxis - GI - Pepcid - DVT - SCD/heparin Access piv Level 2 f/u. Kvng Amin and son Winifred are decision-makers. defers to sons Winifred and Milan to make decision making together. Requests full code. This is been in place for the past several months.. Kannan Morataya MD September 18, 2016 19:03
[2016-09-18] MEDS: LEVOFLOXACIN 750 MG PREMIX INJ 150 ML IV SCH (20:27)
[2016-09-18] MEDS: ERTAPENEM INJ 1,000 MG in SODIUM CHLORIDE 0.9% INJ 100 ML IV SCH (20:35)
[2016-09-19] VITALS (14 sets, daily range): BP systolic 93–105; BP diastolic 50–55; PULSE 85–101; RESP 16–18; TEMP 98–98.7; O2SAT 95–100
[2016-09-19] MEDS: HEPARIN SODIUM - SQ 10,000 UNITS/ML VIAL SQ SCH ×3 (00:20→22:55)
[2016-09-19] MEDS: AMPICILLIN-SULBACTAM INJ 3 GM in SODIUM CHLORIDE 0.9% INJ 100 ML IV SCH ×4 (02:00→20:00)
[2016-09-19] MEDS: RESP: ALBUTEROL 2.5 MG/IPRATROPIUM 0.5 MG NEB (SCH) NEB ×4 (03:36→21:32)
[2016-09-19] MEDS: RESP: SODIUM CHLORIDE 3% 4 ML NEB NEB SCH ×4 (03:36→21:32)
[2016-09-19] MEDS: INSULIN NovoLIN REGULAR SUPPLEMENTAL SCALE SQ SCH ×6 (04:00→20:00)
[2016-09-19] MEDS: CHLORHEXIDINE GLUCONATE 2 % 1 PACK (2 CLOTHS) TOP SCH (04:00)
[2016-09-19] MEDS: METOCLOPRAMIDE HCL 10 MG/2 ML VIAL IV PUSH SCH ×3 (05:15→22:55)
[2016-09-19] MEDS: FREE WATER G-TUBE SCH ×5 (05:15→20:00)
[2016-09-19] MEDS: RESP: TOBRAMYCIN SULFATE 300 MG/5 ML NEB NEB SCH ×2 (07:26→20:38)
[2016-09-19] MEDS: JUVEN POWDER 1 PACK G-TUBE SCH ×2 (07:46→20:37)
[2016-09-19] MEDS: SODIUM CHLORIDE 0.9% FLUSH 10 ML FLUSH IV FLUSH SCH ×2 (07:46→20:38)
[2016-09-19] MEDS: CHLORHEXIDINE 0.12% (ORAL KIT) 15 ML CUP MT SCH ×2 (07:46→20:00)
[2016-09-19] MEDS: DOCUSATE SODIUM 50 MG/SENNA 8.6 MG TAB PO SCH ×2 (07:47→20:35)
[2016-09-19] MEDS: FAMOTIDINE 20 MG TAB NG SCH (07:47)
[2016-09-19] MEDS: MODAFINIL 200 MG TAB PO SCH (07:47)
[2016-09-19] MEDS: INSULIN DETEMIR 100 UNITS/ML VIAL SQ SCH ×2 (07:48→20:36)
[2016-09-19] MEDS: POVIDONE IODINE 10% SOLN 480 ML BTL TOPICAL SCH ×2 (07:48→20:38)
[2016-09-19] MEDS: NYSTATIN 100,000 U/GM PWD 15 GM BTL TOPICAL SCH ×2 (07:49→20:38)
--- NOTE | 2016-09-19 11:37 | PD.CONS ---
HPI History of Present Illness This is a 81 year old male with end-stage dementia currently hospitalized in the medical intensive care unit for acute on chronic respiratory failure and HCAP with Aceinetobacter and pseudomonas aeruginosa with hx of MRSA and Klebsiella in sputum, Alzheimer's dementia with hypoactive delirium, depression/ anxiety, hx of HTN, failure to thrive, gastroesophageal reflux, severe acute protein calorie malnutrition. He is currently on t-bar. He has a PEG tube in place. This was originally placed by invasive radiology, but changed at the bedside by our service in earlier this year 2016 when it became dislodged. The sap bi developer recommends Glucerna 1.5 with goal rate to 55 ml/hr. GI was consulted for clogged PEG tube. The nurse reports that he was unable to flush this when he came on this morning. GI was consulted for an exchange. He has a #22 tanzanian replacement gastrostomy tube in place. (Laury Landaverde) PFSH Past Medical History Alzheimer's dementia Anxiety Hypertension Chronic respiratory failure status post trach Failure to thrive status post PEG tube placement November 2014 Contractures bilateral lower extremities Constipation BPH Syncope GERD Past Surgical History Tracheostomy PEG tube (Laury Landaverde) Coded Allergies: *MDRO Multi-Drug Resistant Organism (Verified Adverse Reaction, Unknown, ) MRSA (sputum) - 06/28/16, 07/12/16, 07/21/16 MRSA PCR Screen POSITIVE - 09/03/2016 ESBL K. pneumoniae (urine) - 09/02/16 MDR-Acinetobacter (sputum)-09/08/16 Medications Allergies Coded Allergies Type Severity Reaction Last Updated Verified *MDRO Multi-Drug Resistant Organism Adverse Reaction Unknown 09/11/16 Yes Active Scripts Medications Dose Route/Sig Days Date Category Acidophilus (Probiotic Product) 1 Cap Cap 1 Caplet G-TUBE 09/03/16 Reported Bactrim DS (Sulfamethoxazole-Trimethoprim) 800-160 Mg Tab 1 Tab PEG Q12HR 08/15/16 Rx Family History Unable to obtain Social History Unable to provide (Laury Landaverde) Review of Systems ROS Unable to obtain (Laury Landaverde) GI Exam Vitals I&O Vital Signs Date Time Temp Pulse Resp B/P Pulse Ox O2 Delivery O2 Flow Rate FiO2 09/19/16 10:00 95 09/19/16 08:00 95 09/19/16 08:00 28 09/19/16 08:00 98.2 95 16 103/53 100 09/19/16 07:25 100 T-piece 6.00 28 09/19/16 07:00 100 T-Piece 28 09/19/16 06:00 85 09/19/16 04:00 28 09/19/16 04:00 95 09/19/16 04:00 98.6 95 18 95/50 100 09/19/16 02:00 91 09/19/16 00:00 28 09/19/16 00:00 98.6 100 18 93/52 100 09/19/16 00:00 100 09/18/16 22:00 96 09/18/16 20:58 98 T-piece 6.00 09/18/16 20:00 90 09/18/16 20:00 28 09/18/16 20:00 98.6 90 18 99/53 100 09/18/16 19:00 100 T-Piece 09/18/16 18:00 92 09/18/16 16:00 28 09/18/16 16:00 86 09/18/16 16:00 98.5 86 18 97/51 99 09/18/16 14:00 90 09/18/16 12:00 28 09/18/16 12:00 96 09/18/16 12:00 98.6 96 20 103/55 98 I/O 09/18/16 09/18/16 09/18/16 09/19/16 09/19/16 09/19/16 07:00 15:00 23:00 07:00 15:00 23:00 Intake Total 768 ml 757 ml 608 ml 580 ml Output Total 400 ml 575 ml 525 ml 600 ml Balance 368 ml 182 ml 83 ml -20 ml Intake Oral 0 ml 0 ml IV Total 147 ml 126 ml 335 ml 265 ml Tube Feeding 321 ml 231 ml 273 ml 315 ml Other 300 ml 400 ml Output Urine Total 400 ml 425 ml 425 ml 400 ml Stool Total 150 ml 100 ml 200 ml Imaging Last Impressions Chest X-Ray 09/16/16 0600 Signed Impressions: Service Date/Time: Friday, September 16, 2016 01:36 - CONCLUSION: No significant change demonstrated. Gary Griffin MD Abdomen X-Ray 09/12/16 0000 Signed Impressions: Service Date/Time: Monday, September 12, 2016 12:39 - CONCLUSION: 1. Nonobstructed bowel gas pattern without pneumoperitoneum. 2. Gastrostomy tube in left upper abdominal quadrant. 3. Minimal bibasilar atelectatic changes. Calos Marcano MD Upper Extremity Ultrasound 09/07/16 0000 Signed Impressions: Service Date/Time: August 09:28 - CONCLUSION: Cephalic vein thrombosis. Acosta Da Silva MD Abdomen Ultrasound 09/03/16 0000 Signed Impressions: Service Date/Time: Saturday, September 03, 2016 15:21 - CONCLUSION: 1. No acute findings. Exam somewhat limited by overlying bowel gas. Mina Varghese MD Laboratory Date/Time Procedure Status Source Growth 09/14/16 22:10 Gram Stain - Final Complete Sputum Endotracheal 09/14/16 22:10 Sputum Culture - Final Complete Sputum Endotracheal NO GROWTH IN 48 HOURS. Physical Examination HEENT:Normocephalic; atraumatic; no jaundice. CHEST: Course breath sounds. Tracheostomy to T-Bar CARDIAC: RRR. ABDOMEN: Soft, nondistended, nontender; no hepatosplenomegaly; bowel sounds are present in all four quadrants. #22 PEG tube EXTREMITIES: Contracted. ANODIZER: Nonverbal (Laury Landaverde) Assessment and Plan Plan ASSESSMENT: - Malfunctioning PEG tube. Pt with dysphagia, severe protein calorie malnutrition, who is currently hospitalized with acute on chronic respiratory failure, HCAP with HCAP with Aceinetobacter and pseudomonas aeruginosa with hx of MRSA and Klebsiella in sputum, Alzheimer's dementia with hypoactive delirium, and his chronic medical problems. Promotions Producer recommends Glucerna 1.5 with goal rate to 55 ml/hr. He has a PEG tube in place, but the nurse reports that he was unable to flush this when he came on shift this morning. This was originally placed by invasive radiology, but changed at the bedside by our service in earlier this year 2016 when it became dislodged. He has a #22 tanzanian replacement gastrostomy tube in place. I attempted to deflate the balloon to exchange this at bedside, but was unable to deflate the balloon even though it felt inflated. Dr. Overton will look at when he rounds. PLAN: - Dr. Overton will try to exchange gastrostomy tube at bedside when he rounds (Laury Landaverde) Physician Comments Seen and examined with GUSTAVO, Previous G tube removed and replaced with 22 tanzanian gastrostomy tube. Position verified by 60 cc water bolus. Use as needed.Nurse advised to call us with any further issues Gi fu PRN. Thank you ( Tigist Overton MD) Laury Landaverde September 19, 2016 11:37 Tigist Overton MD September 19, 2016 12:44
[2016-09-19] MEDS: ERTAPENEM INJ 1,000 MG in SODIUM CHLORIDE 0.9% INJ 100 ML IV SCH (20:35)
[2016-09-19] MEDS: LEVOFLOXACIN 750 MG PREMIX INJ 150 ML IV SCH (20:35)
--- NOTE | 2016-09-19 20:50 | HHI.CCPN ---
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 He is well-known to me and I have taken care of him during his 2-month prior ICU admission with us. He has a history if dementia, DM, and chronic respiratory failure requiring tracheostomy. [facility]cemia. However, on evaluation in the ER, he was found to be tachycardic , diaphoretic. He had a serum Na 160, glucose of 600, Cr 3 (baseline around 1), lactate of 3.0, wbc 17. He was febrile as well. CXR appears clear and u/a clean. Unfortunately, the patient is unable to provide any additional history given his chronic medical state. The remainder of the history is based on my prior knowledge of the patient and chart review. I evaluated the patient in the emergency department. 09/03: Afebrile. On T piece. No acute issues overnight. Creatinine slowly correcting. 09/04: Currently resting in bed at baseline neurologic valladares. Creatinine slowly correcting. Sodium slowly correcting. Positive BM. Afebrile. 09/05: Currently on TPs. Attempt to switch to trach collar. Sodium and creatinine are cracking. At baseline neurologic valladares. Positive BM. Tolerating tube feeding. 09/06: Noted increasing O2 request up-to-date. Thick greenish secretions. X- ray revealed no acute spines. Possibly mucus plugging. We'll place on ventilator short-term. Add hypertonic saline nebs. Neurologically baseline. 09/07: Continues to be tachypneic on CPAP, rate 30-35. CXR mild diffuse interstitial infiltrates. K 3.4. No improvement in neuro status 09/08: On TP, tachypneic. Fever 102, ID following. Increased ETT secretions. No change in neuro status 09/09: Currently afebrile. Continues to have copious secretions from tracheostomy site. Failed PSV trial today. Positive BM. Tolerating tube feeding 09/10: Tmax 102.8. Currently 97.8. Tolerating tube feeds. Currently a PSV trial 04/24 at 40%. Transition of TP today. Start vancomycin and micafungin yesterday per ID. 09/11: Afebrile. Tolerating tube feeds. Positive BM. Currently on T piece trial. Noted Acinetobacter in sputum and C tropicalis in urine. Infectious disease following 09/12: Tmax 99.7. High residuals today. KUB pending. Currently T piece trial. Neurologically unchanged 09/13: Afebrile. Tolerating tube feeds today. KUB was nonspecific bowel gas pattern. Tolerated CPAP only 10 minutes today. Copious secretions persist. 09/14: Afebrile. Tube feeds back at goal. Currently on CPAP trial 15/5. Continues to have copious secretions 09/15: Afebrile. Tube feeds at goal. Tolerating PSV trial. Continues to have copious secretions. No change in neurological status. 09/16 Tolerating CPAP 15/5. Tolerating tube feeds. 09/17 Tolerating Tpiece 6 hours. 09/18: tolerated t-piece for 9 hours today. otherwise no change. Subjective 09/19: PEG tube clogged. GI consulted and plan to exchange at bedside. tolerated t -piece x 24h. Objective Vital Signs Date Time Temp Pulse Resp B/P Pulse Ox O2 Delivery O2 Flow Rate FiO2 09/19/16 20:38 100 T-piece 6.00 28 09/19/16 18:00 89 09/19/16 16:00 98.5 18 105/51 Intake and Output 09/18/16 09/18/16 09/19/16 08:00 16:00 00:00 Intake Total 768 ml 757 ml 608 ml Output Total 400 ml 575 ml 525 ml Balance 368 ml 182 ml 83 ml Result Diagram: 09/16/16 0602 09/18/16 0515 Imaging Last Impressions Chest X-Ray 09/14/16 0600 Signed Impressions: Service Date/Time: August 02:38 - CONCLUSION: Mild infiltrate in the right upper lung. No significant changes. José Miguel Celis MD Abdomen X-Ray 09/12/16 0000 Signed Impressions: Service Date/Time: Monday, September 12, 2016 12:39 - CONCLUSION: 1. Nonobstructed bowel gas pattern without pneumoperitoneum. 2. Gastrostomy tube in left upper abdominal quadrant. 3. Minimal bibasilar atelectatic changes. Calos Marcano MD Upper Extremity Ultrasound 09/07/16 0000 Signed Impressions: Service Date/Time: August 09:28 - CONCLUSION: Cephalic vein thrombosis. Acosta Da Silva MD Abdomen Ultrasound 09/03/16 0000 Signed Impressions: Service Date/Time: Saturday, September 03, 2016 15:21 - CONCLUSION: 1. No acute findings. Exam somewhat limited by overlying bowel gas. Mina Varghese MD Objective Remarks GENERAL: 80 yo male patient, chronically critically ill. HEAD: Normocephalic. EYES: PERRL. No scleral icterus. No scleral edema. NECK: Supple, trachea midline. No JVD. tracheostomy in place without erythema or bleeding. CARDIOVASCULAR: RRR. RESPIRATORY: Coarse bilateral breath sounds but breathing comfortably on T piece without accessory muscle use. GASTROINTESTINAL: Abdomen soft, non-tender, nondistended. PEG tube is in place MUSCULOSKELETAL: contracted bilateral upper and lower extremity.. With trace nonpitting peripheral upper and lower extremity edema. : No scrotal edema. Neuro: Opens eyes spontaneously. does not follow commands. extends LUE, withdraws x 3. Skin: Stage II-III decubitus ulcer coccyx 2 cm x 2 cm and healing ulcer left heel. 2 small medial right and left toe/foot ulcers A/P Assessment and Plan NEUROLOGY/PSYCH Alzheimer's dementia Hypoactive delirium Depression/anxiety -Acetaminophen for fever/Dilaudid as needed for pain management. -Monitor neuro status. -Continue Provigil 400 mg daily in attempt increased alertness. On since with minimal improvement -Limit sedation PULMONARY Acute on chronic respiratory failure HCAP tolerating tpiece x 24h. continue as tolerated. -HOB at 30 degrees -S/p #8 [place] percutaneous trach 06/13. (Dr. Morataya/Dr. Dai). Downsized to a # 6 Shiley DFEN 08/05 -DuoNeb q6h and q2h prn. -Hypertonic saline aerosols 3% every 6 as mucolytic CARDIOVASCULAR History of Hypertension -Currently not requiring antihypertensives and/or vasopressors. -Telemetry will be continued -Continue free water to 200cc q6hr. GASTROENTEROLOGY Failure to thrive Gastroesophageal reflux disease Severe acute protein calorie malnutrition- severe Hypo-albuminemia Elevated transaminases -TF to goal as tolerated with Glucerna 1.5 goal of 55 cc an hour one packet Nathan twice a day per nutrition recommendations. -On Pepcid.for GI prophylaxis -PeriColace twice a day for bowel regimen - On Reglan for GI motility RENAL//FEN: Acute kidney injury - resolved BPH Continue to Monitor renal function, Replace electrolytes as clinically indicated, placed on ICU electrolyte protocol Renal/abdominal ultrasound revealed no hydronephrosis. INFECTION DISEASE HCAP with Acinetobacter HCAP with PSAE UTI with Proteus and ESBL Klebsiella New fever, sepsis History of E. Cloacae UTI History of MRSA in sputum, colonized History of Klebsiella in sputum, colonized Funguria with history of tropicalis and glabrata Abx per ID: Ertapenem to be completed 09/19, Unasyn 09/11, tobramycin nebs 300 every 12 hours, Levaquin 09/11 Noted Acinetobacter resistant. Sensitive to Unasyn and tobramycin only. Pertinent cultures 06/04 - urine - E. Cloacae 06/16 - sputum - Alla Tropicalis 06/27 blood - Staph Epi (1/2 bottles) 06/28 urine - alla glabrata 06/28 sputum - Klebsiella (intermediate to zosyn), MRSA 07/12 sputum - MRSA 07/18 sputum - MRSA, Klebsiella 07/21 sputum -MRSA, Klebsiella 07/21 blood -no growth for 2 days 07/21 urine -Alla glabrata 09/02 - blood cultures 2 -staph hominis 09/02: urine - Proteus, Klebsiella ESBL positive 09/03 -sputum-Pseudomonas 09/08 - sputum -Acinetobacter 09/08 - blood cultures 2 - no growth 09/08 - urine -C tropicalis 09/14 - sputum - no growth Influenza negative. ID /Dr. Cardenas for antibiotic recommendations. Previously on suppressive Bactrim twice a day HEMATOLOGY History of Normocytic anemia Leukocytosis -Currently no indication for transfusion of blood proximally at this time -Hemoccult stool was negative -Transfuse if hemoglobin below 7. ENDOCRINOLOGY: Hyperglycemia of critical illness Currently on Levemir 15 units twice a day. Medium dose Sliding Scale insulin with Accu-Cheks every 4 hours maintain euglycemia. SKIN Left heel blister Sacral decubitus ulcer stage I -Continue Multi-Podus boots, wound care following - Continue wrist splints alternating sides daily Betadine twice daily to open Wound care evaluate and treat Prophylaxis - GI - Pepcid - DVT - SCD/heparin Access piv Level 2 f/u. Dispo: I have asked case management to look into returning him to his SNF, as he is close to being ready for this. Kvng Amin and son Winifred are decision-makers. defers to sons Winifred and Milan to make decision making together. Requests full code. This is been in place for the past several months.. Kannan Morataya MD September 19, 2016 20:50
[2016-09-20] VITALS (20 sets, daily range): BP systolic 94–136; BP diastolic 51–60; PULSE 83–111; RESP 16–22; TEMP 98.5–99.3; O2SAT 98–100
[2016-09-20] MEDS: AMPICILLIN-SULBACTAM INJ 3 GM in SODIUM CHLORIDE 0.9% INJ 100 ML IV SCH ×4 (02:00→20:00)
[2016-09-20] MEDS: RESP: SODIUM CHLORIDE 3% 4 ML NEB NEB SCH ×3 (03:55→20:14)
[2016-09-20] MEDS: CHLORHEXIDINE GLUCONATE 2 % 1 PACK (2 CLOTHS) TOP SCH (04:00)
[2016-09-20] MEDS: INSULIN NovoLIN REGULAR SUPPLEMENTAL SCALE SQ SCH ×7 (04:00→23:46)
[2016-09-20] MEDS: FREE WATER G-TUBE SCH ×4 (05:20→23:51)
[2016-09-20] MEDS: METOCLOPRAMIDE HCL 10 MG/2 ML VIAL IV PUSH SCH ×3 (05:21→19:57)
[2016-09-20] MEDS: CHLORHEXIDINE 0.12% (ORAL KIT) 15 ML CUP MT SCH ×2 (08:00→20:12)
[2016-09-20] MEDS: JUVEN POWDER 1 PACK G-TUBE SCH ×2 (09:00→19:56)
[2016-09-20] MEDS: POVIDONE IODINE 10% SOLN 480 ML BTL TOPICAL SCH ×2 (09:00→20:01)
[2016-09-20] MEDS: SODIUM CHLORIDE 0.9% FLUSH 10 ML FLUSH IV FLUSH SCH ×2 (09:00→19:56)
[2016-09-20] MEDS: INSULIN DETEMIR 100 UNITS/ML VIAL SQ SCH ×2 (09:00→19:53)
[2016-09-20] MEDS: FAMOTIDINE 20 MG TAB NG SCH (09:18)
[2016-09-20] MEDS: MODAFINIL 200 MG TAB PO SCH (09:19)
[2016-09-20] MEDS: DOCUSATE SODIUM 50 MG/SENNA 8.6 MG TAB PO SCH (09:19)
[2016-09-20] MEDS: NYSTATIN 100,000 U/GM PWD 15 GM BTL TOPICAL SCH ×2 (09:21→20:01)
[2016-09-20] MEDS ORDERED: SENNOSIDES SYRUP 8.8 MG/5 ML CUP PO ONE (09:45)
[2016-09-20] MEDS: RESP: TOBRAMYCIN SULFATE 300 MG/5 ML NEB NEB SCH ×2 (09:53→20:00)
[2016-09-20] MEDS: HEPARIN SODIUM - SQ 10,000 UNITS/ML VIAL SQ SCH ×2 (10:55→23:51)
--- NOTE | 2016-09-20 19:40 | HHI.IDPN ---
Subjective Subjective Remarks no fever neurologically the same tolerates TF sputum no growth Antibiotics unasyn levaquin gent INH Lines no central lines Past Medical History Reviewed Allergies: Coded Allergies: *MDRO Multi-Drug Resistant Organism (Verified Adverse Reaction, Unknown, ) MRSA (sputum) - 06/28/16, 07/12/16, 07/21/16 MRSA PCR Screen POSITIVE - 09/03/2016 ESBL K. pneumoniae (urine) - 09/02/16 MDR-Acinetobacter (sputum)-09/08/16 Objective . Vital Signs Date Time Temp Pulse Resp B/P Pulse Ox O2 Delivery O2 Flow Rate FiO2 09/20/16 18:00 111 09/20/16 17:00 99.2 111 120/58 99 09/20/16 16:00 107 127/58 98 09/20/16 16:00 111 09/20/16 15:00 100 100/55 100 09/20/16 14:00 93 09/20/16 14:00 94 119/59 100 09/20/16 13:00 92 111/57 99 09/20/16 12:00 96 110/57 98 09/20/16 12:00 96 110/57 98 09/20/16 12:00 83 09/20/16 11:00 104 110/51 99 09/20/16 11:00 104 110/51 99 09/20/16 10:58 109 136/60 100 09/20/16 10:58 109 136/60 100 09/20/16 10:00 102 98 09/20/16 10:00 102 98 09/20/16 10:00 102 98 09/20/16 10:00 88 09/20/16 09:56 99 T-piece 6.00 28 09/20/16 09:00 97 98 09/20/16 08:00 99.3 97 18 94/52 99 09/20/16 08:00 97 99 09/20/16 08:00 98 09/20/16 08:00 97 99 09/20/16 08:00 28 09/20/16 07:00 99 T-Piece 6.00 28 09/20/16 06:00 91 09/20/16 04:00 28 09/20/16 04:00 98.5 87 16 111/54 100 09/20/16 04:00 87 09/20/16 02:00 90 09/20/16 00:00 28 09/20/16 00:00 98.8 92 16 94/58 100 09/20/16 00:00 92 09/19/16 22:00 92 09/19/16 20:38 100 T-piece 6.00 28 09/19/16 20:00 98.0 92 16 101/52 99 09/19/16 20:00 92 09/19/16 20:00 28 09/19/16 09/19/16 09/20/16 15:00 23:00 07:00 Intake Total 431 ml 700 ml 622 ml Output Total 625 ml 525 ml 1378 ml Balance -194 ml 175 ml -756 ml Intake Oral 0 ml 0 ml IV Total 139 ml 338 ml 320 ml Tube Feeding 92 ml 362 ml 302 ml Tube Irrigant 200 ml Output Urine Total 475 ml 425 ml 375 ml Stool Total 150 ml 100 ml 1003 ml Imaging Last Impressions Chest X-Ray 09/16/16 0600 Signed Impressions: Service Date/Time: Friday, September 16, 2016 01:36 - CONCLUSION: No significant change demonstrated. Gary Griffin MD Abdomen X-Ray 09/12/16 0000 Signed Impressions: Service Date/Time: Monday, September 12, 2016 12:39 - CONCLUSION: 1. Nonobstructed bowel gas pattern without pneumoperitoneum. 2. Gastrostomy tube in left upper abdominal quadrant. 3. Minimal bibasilar atelectatic changes. Calos Marcano MD Upper Extremity Ultrasound 09/07/16 0000 Signed Impressions: Service Date/Time: August 09:28 - CONCLUSION: Cephalic vein thrombosis. K. Marquis Da Silva MD Abdomen Ultrasound 09/03/16 0000 Signed Impressions: Service Date/Time: Saturday, September 03, 2016 15:21 - CONCLUSION: 1. No acute findings. Exam somewhat limited by overlying bowel gas. Mina Varghese MD Physical Exam CONSTITUTIONAL/GENERAL: Not responding, on vent SKIN: No jaundice, rashes, or lesions. Warm and dry HEAD: Atraumatic. Normocephalic. EYES: Pupils equal and round and reactive. No scleral icterus. No injection or drainage. NECK: Trachea midline. Supple, nontender. Trach collar in place , site OK CARDIOVASCULAR: Regular rate and rhythm without murmurs, gallops, or rubs. RESPIRATORY/CHEST: fairly clear i to auscultation. GASTROINTESTINAL: Abdomen soft, no reaction to palpation. mildly istended. Bowel sounds present. Dignishield in place with liquid brown stool GENITOURINARY: Without palpable bladder distension. Mckeon catheter in place with clear yellow urine MUSCULOSKELETAL: Extremities without clubbing, cyanosis, + 2 edema. No joint effusion noted. No mottling. contracted pt NEUROLOGICAL: Not responding - at baseline PSYCHIATRIC: unable to assess LINE no evidence of infection Assessment & Plan Remarks UTI, ESBL Kleb pneumo in clx PSAE PNA, vs tracheobronchitis MDRO Acietobacter in sputum R to meropenem - fu clx Fevers - ? source ? VAP vs new UTI ve other infx or drug fever Respiratory failure, has chronic trach - currently on T-piece, but breathing looks laboured or unusual Advanced Dementia Diarrhea, ho recent abx use; C.diff negative PLAN d c Levaquine cont Unasyn for Acinteobacter thru 7 cont tobra nebs thru 7 monitor clinically helio see as needed; please call for any questions Elle Cardenas MD September 20, 2016 19:40
[2016-09-20] MEDS: DOCUSATE SODIUM 100 MG/10 ML UDC PO SCH (20:00)
--- NOTE | 2016-09-20 20:13 | HHI.CCPN ---
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 He is well-known to me and I have taken care of him during his 2-month prior ICU admission with us. He has a history if dementia, DM, and chronic respiratory failure requiring tracheostomy. He was sent from the [facility] for evaluation of hyperglycemia. However, on evaluation in the ER, he was found to be tachycardic , diaphoretic. He had a serum Na 160, glucose of 600, Cr 3 (baseline around 1), lactate of 3.0, wbc 17. He was febrile as well. CXR appears clear and u/a clean. Unfortunately, the patient is unable to provide any additional history given his chronic medical state. The remainder of the history is based on my prior knowledge of the patient and chart review. I evaluated the patient in the emergency department. 09/03: Afebrile. On T piece. No acute issues overnight. Creatinine slowly correcting. 09/04: Currently resting in bed at baseline neurologic valladares. Creatinine slowly correcting. Sodium slowly correcting. Positive BM. Afebrile. 09/05: Currently on TPs. Attempt to switch to trach collar. Sodium and creatinine are cracking. At baseline neurologic valladares. Positive BM. Tolerating tube feeding. 09/06: Noted increasing O2 request up-to-date. Thick greenish secretions. X- ray revealed no acute spines. Possibly mucus plugging. We'll place on ventilator short-term. Add hypertonic saline nebs. Neurologically baseline. 09/07: Continues to be tachypneic on CPAP, rate 30-35. CXR mild diffuse interstitial infiltrates. K 3.4. No improvement in neuro status 09/08: On TP, tachypneic. Fever 102, ID following. Increased ETT secretions. No change in neuro status 09/09: Currently afebrile. Continues to have copious secretions from tracheostomy site. Failed PSV trial today. Positive BM. Tolerating tube feeding 09/10: Tmax 102.8. Currently 97.8. Tolerating tube feeds. Currently a PSV trial 04/24 at 40%. Transition of TP today. Start vancomycin and micafungin yesterday per ID. 09/11: Afebrile. Tolerating tube feeds. Positive BM. Currently on T piece trial. Noted Acinetobacter in sputum and C tropicalis in urine. Infectious disease following 09/12: Tmax 99.7. High residuals today. KUB pending. Currently T piece trial. Neurologically unchanged 09/13: Afebrile. Tolerating tube feeds today. KUB was nonspecific bowel gas pattern. Tolerated CPAP only 10 minutes today. Copious secretions persist. 09/14: Afebrile. Tube feeds back at goal. Currently on CPAP trial 15/5. Continues to have copious secretions 09/15: Afebrile. Tube feeds at goal. Tolerating PSV trial. Continues to have copious secretions. No change in neurological status. 09/16 Tolerating CPAP 15/5. Tolerating tube feeds. 09/17 Tolerating Tpiece 6 hours. 09/18: tolerated t-piece for 9 hours today. otherwise no change. 09/19: PEG tube clogged. GI consulted and plan to exchange at bedside. tolerated t -piece x 24h. Subjective 09/20: Tmax 99.3. Currently 99.2. On T piece trial 48 hours now.. Positive bowel movements and currently tolerating tube feeding Objective Vital Signs Date Time Temp Pulse Resp B/P Pulse Ox O2 Delivery O2 Flow Rate FiO2 09/20/16 18:00 111 09/20/16 17:00 99.2 120/58 99 09/20/16 09:56 T-piece 6.00 28 09/20/16 08:00 18 Intake and Output 09/19/16 09/19/16 09/20/16 08:00 16:00 00:00 Intake Total 580 ml 431 ml 700 ml Output Total 600 ml 625 ml 525 ml Balance -20 ml -194 ml 175 ml Result Diagram: 09/16/16 0602 09/18/16 0515 Imaging Last Impressions Chest X-Ray 09/16/16 0600 Signed Impressions: Service Date/Time: Friday, September 16, 2016 01:36 - CONCLUSION: No significant change demonstrated. Gary Griffin MD Abdomen X-Ray 09/12/16 0000 Signed Impressions: Service Date/Time: Monday, September 12, 2016 12:39 - CONCLUSION: 1. Nonobstructed bowel gas pattern without pneumoperitoneum. 2. Gastrostomy tube in left upper abdominal quadrant. 3. Minimal bibasilar atelectatic changes. Calos Marcano MD Upper Extremity Ultrasound 09/07/16 0000 Signed Impressions: Service Date/Time: August 09:28 - CONCLUSION: Cephalic vein thrombosis. K. Marquis Da Silva MD Abdomen Ultrasound 09/03/16 0000 Signed Impressions: Service Date/Time: Saturday, September 03, 2016 15:21 - CONCLUSION: 1. No acute findings. Exam somewhat limited by overlying bowel gas. Mina Varghese MD Objective Remarks GENERAL: 80 yo male patient, chronically critically ill currently resting in bed in no acute distress. HEAD: Normocephalic. EYES: PERRL. No scleral icterus. No scleral edema. NECK: Supple, trachea midline. No JVD. tracheostomy in place without erythema or bleeding. CARDIOVASCULAR: RRR. S1, S2 no S4 without murmur RESPIRATORY: Coarse bilateral breath sounds but breathing comfortably on T piece without accessory muscle use. GASTROINTESTINAL: Abdomen soft, non-tender, nondistended. PEG tube is in place MUSCULOSKELETAL: contracted bilateral upper and lower extremity.. With trace nonpitting peripheral upper and lower extremity edema. Neuro: Opens eyes spontaneously. does not follow commands. extends LUE, withdraws x 3. Skin: Stage II-III decubitus ulcer coccyx 2 cm x 2 cm and healing ulcer left heel. 2 small medial right and left toe/foot ulcers A/P Assessment and Plan NEUROLOGY/PSYCH Alzheimer's dementia Hypoactive delirium Depression/anxiety -Acetaminophen for fever/Dilaudid as needed for pain management. -Monitor neuro status. -Continue Provigil 400 mg daily in attempt increased alertness. On since with minimal improvement -Limit sedation PULMONARY Acute on chronic respiratory failure HCAP -HOB at 30 degrees -S/p #8 [place] percutaneous trach 06/13. (Dr. Morataya/Dr. Dai). Downsized to a # 6 Johana DFEN 08/05 -DuoNeb q6h and q2h prn. -Hypertonic saline aerosols 3% every 6 as mucolytic CARDIOVASCULAR History of Hypertension -Currently not requiring antihypertensives and/or vasopressors. -Telemetry will be continued -Continue free water to 200cc q6hr. GASTROENTEROLOGY Failure to thrive Gastroesophageal reflux disease Severe acute protein calorie malnutrition- severe Hypo-albuminemia Elevated transaminases -TF to goal as tolerated with Glucerna 1.5 goal of 55 cc an hour one packet Nathan twice a day per nutrition recommendations. -On Pepcid.for GI prophylaxis -PeriColace twice a day for bowel regimen - On Reglan for GI motility RENAL//FEN: Acute kidney injury - resolved BPH Continue to Monitor renal function, Replace electrolytes as clinically indicated, placed on ICU electrolyte protocol Renal/abdominal ultrasound revealed no hydronephrosis. INFECTION DISEASE HCAP with Acinetobacter HCAP with PSAE UTI with Proteus and ESBL Klebsiella New fever, sepsis History of E. Cloacae UTI History of MRSA in sputum, colonized History of Klebsiella in sputum, colonized Funguria with history of tropicalis and glabrata Unasyn 09/11, tobramycin nebs 300 every 12 hours until 09/24 to be discontinued Noted Acinetobacter resistant. Sensitive to Unasyn and tobramycin only. Pertinent cultures 06/04 - urine - E. Cloacae 06/16 - sputum - Alla Tropicalis 06/27 blood - Staph Epi (1/2 bottles) 06/28 urine - alla glabrata 06/28 sputum - Klebsiella (intermediate to zosyn), MRSA 07/12 sputum - MRSA 07/18 sputum - MRSA, Klebsiella 07/21 sputum -MRSA, Klebsiella 07/21 blood -no growth for 2 days 07/21 urine -Alla glabrata 09/02 - blood cultures 2 -staph hominis 09/02: urine - Proteus, Klebsiella ESBL positive 09/03 -sputum-Pseudomonas 09/08 - sputum -Acinetobacter 09/08 - blood cultures 2 - no growth 09/08 - urine -C tropicalis 09/14 - sputum - no growth Influenza negative. ID /Dr. Cardenas for antibiotic recommendations. Previously on suppressive Bactrim twice a day HEMATOLOGY History of Normocytic anemia Leukocytosis -Currently no indication for transfusion of blood proximally at this time -Hemoccult stool was negative -Transfuse if hemoglobin below 7. ENDOCRINOLOGY: Hyperglycemia of critical illness Currently on Levemir 15 units twice a day. Medium dose Sliding Scale insulin with Accu-Cheks every 4 hours maintain euglycemia. SKIN Left heel blister Sacral decubitus ulcer stage I -Continue Multi-Podus boots, wound care following - Continue wrist splints alternating sides daily Betadine twice daily to open Wound care evaluate and treat Prophylaxis - GI - Pepcid - DVT - SCD/heparin Access piv Critical Care: The total critical care time was 35 minutes. Time to perform other separately billable procedures was not included in the critical care time. Kvng Amin and son Winifred are decision-makers. defers to sons Winifred and Milan to make decision making together. Requests full code. This is been in place for the past several months.. German Marinelli MD September 20, 2016 20:13
[2016-09-20] MEDS: RESP: ALBUTEROL 2.5 MG/IPRATROPIUM 0.5 MG NEB (SCH) NEB (20:53)
[2016-09-21] VITALS (29 sets, daily range): BP systolic 99–140; BP diastolic 54–84; PULSE 87–115; RESP 20–22; TEMP 98.7–99; O2SAT 92–100
[2016-09-21] MEDS: AMPICILLIN-SULBACTAM INJ 3 GM in SODIUM CHLORIDE 0.9% INJ 100 ML IV SCH ×4 (00:52→19:51)
[2016-09-21] MEDS: RESP: ALBUTEROL 2.5 MG/IPRATROPIUM 0.5 MG NEB (SCH) NEB ×4 (03:39→19:44)
[2016-09-21] MEDS: INSULIN NovoLIN REGULAR SUPPLEMENTAL SCALE SQ SCH ×6 (03:52→23:43)
[2016-09-21] MEDS: CHLORHEXIDINE GLUCONATE 2 % 1 PACK (2 CLOTHS) TOP SCH (03:52)
[2016-09-21] MEDS: FREE WATER G-TUBE SCH ×4 (04:28→23:43)
[2016-09-21] MEDS: METOCLOPRAMIDE HCL 10 MG/2 ML VIAL IV PUSH SCH ×3 (04:29→20:14)
[2016-09-21] MEDS: CHLORHEXIDINE 0.12% (ORAL KIT) 15 ML CUP MT SCH ×2 (08:00→20:14)
[2016-09-21] MEDS: RESP: TOBRAMYCIN SULFATE 300 MG/5 ML NEB NEB SCH ×2 (08:31→19:44)
[2016-09-21] MEDS: POVIDONE IODINE 10% SOLN 480 ML BTL TOPICAL SCH ×2 (09:00→19:52)
[2016-09-21] MEDS: INSULIN DETEMIR 100 UNITS/ML VIAL SQ SCH ×2 (09:00→19:52)
[2016-09-21] MEDS: NYSTATIN 100,000 U/GM PWD 15 GM BTL TOPICAL SCH ×2 (09:00→19:52)
[2016-09-21] MEDS: SODIUM CHLORIDE 0.9% FLUSH 10 ML FLUSH IV FLUSH SCH ×2 (09:00→19:50)
[2016-09-21] MEDS: JUVEN POWDER 1 PACK G-TUBE SCH ×2 (09:00→19:53)
[2016-09-21] MEDS: FAMOTIDINE 20 MG TAB NG SCH (09:48)
[2016-09-21] MEDS: SENNOSIDES SYRUP 8.8 MG/5 ML CUP PO SCH (09:48)
[2016-09-21] MEDS: DOCUSATE SODIUM 100 MG/10 ML UDC PO SCH ×2 (09:48→19:52)
[2016-09-21] MEDS: MODAFINIL 200 MG TAB PO SCH (09:48)
--- NOTE | 2016-09-21 11:43 | HHI.CCPN ---
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 He is well-known to me and I have taken care of him during his 2-month prior ICU admission with us. He has a history if dementia, DM, and chronic respiratory failure requiring tracheostomy. He was sent from the long-term for evaluation of hyperglycemia. However, on evaluation in the ER, he was found to be tachycardic , diaphoretic. He had a serum Na 160, glucose of 600, Cr 3 (baseline around 1), lactate of 3.0, wbc 17. He was febrile as well. CXR appears clear and u/a clean. Unfortunately, the patient is unable to provide any additional history given his chronic medical state. The remainder of the history is based on my prior knowledge of the patient and chart review. I evaluated the patient in the emergency department. 09/03: Afebrile. On T piece. No acute issues overnight. Creatinine slowly correcting. 09/04: Currently resting in bed at baseline neurologic valladares. Creatinine slowly correcting. Sodium slowly correcting. Positive BM. Afebrile. 09/05: Currently on TPs. Attempt to switch to trach collar. Sodium and creatinine are cracking. At baseline neurologic valladares. Positive BM. Tolerating tube feeding. 09/06: Noted increasing O2 request up-to-date. Thick greenish secretions. X- ray revealed no acute spines. Possibly mucus plugging. We'll place on ventilator short-term. Add hypertonic saline nebs. Neurologically baseline. 09/07: Continues to be tachypneic on CPAP, rate 30-35. CXR mild diffuse interstitial infiltrates. K 3.4. No improvement in neuro status 09/08: On TP, tachypneic. Fever 102, ID following. Increased ETT secretions. No change in neuro status 09/09: Currently afebrile. Continues to have copious secretions from tracheostomy site. Failed PSV trial today. Positive BM. Tolerating tube feeding 09/10: Tmax 102.8. Currently 97.8. Tolerating tube feeds. Currently a PSV trial 04/24 at 40%. Transition of TP today. Start vancomycin and micafungin yesterday per ID. 09/11: Afebrile. Tolerating tube feeds. Positive BM. Currently on T piece trial. Noted Acinetobacter in sputum and C tropicalis in urine. Infectious disease following 09/12: Tmax 99.7. High residuals today. KUB pending. Currently T piece trial. Neurologically unchanged 09/13: Afebrile. Tolerating tube feeds today. KUB was nonspecific bowel gas pattern. Tolerated CPAP only 10 minutes today. Copious secretions persist. 09/14: Afebrile. Tube feeds back at goal. Currently on CPAP trial 15/5. Continues to have copious secretions 09/15: Afebrile. Tube feeds at goal. Tolerating PSV trial. Continues to have copious secretions. No change in neurological status. 09/16 Tolerating CPAP 15/5. Tolerating tube feeds. 09/17 Tolerating Tpiece 6 hours. 09/18: tolerated t-piece for 9 hours today. otherwise no change. 09/19: PEG tube clogged. GI consulted and plan to exchange at bedside. tolerated t -piece x 24h. 09/20: Tmax 99.3. Currently 99.2. On T piece trial 48 hours now.. Positive bowel movements and currently tolerating tube feeding Subjective 09/21: Currently afebrile. Continues to be on TPs 72 hours. No change in neurological status. Objective Vital Signs Date Time Temp Pulse Resp B/P Pulse Ox O2 Delivery O2 Flow Rate FiO2 09/21/16 07:23 100 T-piece 28 09/21/16 06:00 100 09/21/16 04:00 98.9 20 140/60 09/20/16 19:00 6.00 Intake and Output 09/20/16 09/20/16 09/21/16 08:00 16:00 00:00 Intake Total 622 ml 950 ml 907 ml Output Total 1378 ml 1050 ml 400 ml Balance -756 ml -100 ml 507 ml Result Diagram: 09/18/16 0515 Imaging Last Impressions Chest X-Ray 09/16/16 0600 Signed Impressions: Service Date/Time: Friday, September 16, 2016 01:36 - CONCLUSION: No significant change demonstrated. Gary Griffin MD Abdomen X-Ray 09/12/16 0000 Signed Impressions: Service Date/Time: Monday, September 12, 2016 12:39 - CONCLUSION: 1. Nonobstructed bowel gas pattern without pneumoperitoneum. 2. Gastrostomy tube in left upper abdominal quadrant. 3. Minimal bibasilar atelectatic changes. Calos Marcano MD Upper Extremity Ultrasound 09/07/16 0000 Signed Impressions: Service Date/Time: August 09:28 - CONCLUSION: Cephalic vein thrombosis. KatRory Da Silva MD Abdomen Ultrasound 09/03/16 0000 Signed Impressions: Service Date/Time: Saturday, September 03, 2016 15:21 - CONCLUSION: 1. No acute findings. Exam somewhat limited by overlying bowel gas. Mina Varghese MD Objective Remarks GENERAL: 80 yo male patient, chronically critically ill currently resting in bed in no acute distress. HEAD: Normocephalic. EYES: PERRL. No scleral icterus. No scleral edema. NECK: Supple, trachea midline. No JVD. tracheostomy in place without erythema or bleeding. CARDIOVASCULAR: RRR. S1, S2 no S4 without murmur RESPIRATORY: Coarse bilateral breath sounds but breathing comfortably on T piece without accessory muscle use. GASTROINTESTINAL: Abdomen soft, non-tender, nondistended. PEG tube is in place MUSCULOSKELETAL: contracted bilateral upper and lower extremity.. With trace nonpitting peripheral upper and lower extremity edema. Neuro: Opens eyes spontaneously. does not follow commands. extends LUE, withdraws x 3. Skin: Stage II-III decubitus ulcer coccyx 2 cm x 2 cm and healing ulcer left heel. 2 small medial right and left toe/foot ulcers A/P Assessment and Plan NEUROLOGY/PSYCH Alzheimer's dementia Hypoactive delirium Depression/anxiety -Acetaminophen for fever/Dilaudid as needed for pain management. -Monitor neuro status. -Continue Provigil 400 mg daily in attempt increased alertness. On since with minimal improvement -Limit sedation PULMONARY Acute on chronic respiratory failure HCAP -HOB at 30 degrees -S/p #8 [place] percutaneous trach 06/13. (Dr. Morataya/Dr. Dai). Downsized to a # 6 Johana DFEN 08/05 -DuoNeb q6h and q2h prn. -Hypertonic saline aerosols 3% every 6 as mucolytic CARDIOVASCULAR History of Hypertension -Currently not requiring antihypertensives and/or vasopressors. -Telemetry will be continued -Continue free water to 200cc q6hr. GASTROENTEROLOGY Failure to thrive Gastroesophageal reflux disease Severe acute protein calorie malnutrition- severe Hypo-albuminemia Elevated transaminases -TF to goal as tolerated with Glucerna 1.5 goal of 55 cc an hour one packet Nathan twice a day per nutrition recommendations. -On Pepcid.for GI prophylaxis -PeriColace twice a day for bowel regimen - On Reglan for GI motility RENAL//FEN: Acute kidney injury - resolved BPH Continue to Monitor renal function, Replace electrolytes as clinically indicated, placed on ICU electrolyte protocol Renal/abdominal ultrasound revealed no hydronephrosis. INFECTION DISEASE HCAP with Acinetobacter HCAP with PSAE UTI with Proteus and ESBL Klebsiella New fever, sepsis History of E. Cloacae UTI History of MRSA in sputum, colonized History of Klebsiella in sputum, colonized Funguria with history of tropicalis and glabrata Unasyn 09/11, tobramycin nebs 300 every 12 hours until 09/24 to be discontinued Noted Acinetobacter resistant. Sensitive to Unasyn and tobramycin only. Pertinent cultures 06/04 - urine - E. Cloacae 06/16 - sputum - Alla Tropicalis 06/27 blood - Staph Epi (1/2 bottles) 06/28 urine - alla glabrata 06/28 sputum - Klebsiella (intermediate to zosyn), MRSA 07/12 sputum - MRSA 07/18 sputum - MRSA, Klebsiella 07/21 sputum -MRSA, Klebsiella 07/21 blood -no growth for 2 days 07/21 urine -Alla glabrata 09/02 - blood cultures 2 -staph hominis 09/02: urine - Proteus, Klebsiella ESBL positive 09/03 -sputum-Pseudomonas 09/08 - sputum -Acinetobacter 09/08 - blood cultures 2 - no growth 09/08 - urine -C tropicalis 09/14 - sputum - no growth Influenza negative. ID /Dr. Cardenas for antibiotic recommendations. Previously on suppressive Bactrim twice a day HEMATOLOGY History of Normocytic anemia Leukocytosis -Currently no indication for transfusion of blood proximally at this time -Hemoccult stool was negative -Transfuse if hemoglobin below 7. ENDOCRINOLOGY: Hyperglycemia of critical illness Currently on Levemir 15 units twice a day. Medium dose Sliding Scale insulin with Accu-Cheks every 4 hours maintain euglycemia. SKIN Left heel blister Sacral decubitus ulcer stage I -Continue Multi-Podus boots, wound care following - Continue wrist splints alternating sides daily Betadine twice daily to open Wound care evaluate and treat Prophylaxis - GI - Pepcid - DVT - SCD/heparin Access piv Critical Care: The total critical care time was 35 minutes. Time to perform other separately billable procedures was not included in the critical care time. Kvng Amin and son Winifred are decision-makers. defers to sons Winifred and Milan to make decision making together. Requests full code. This is been in place for the past several months.. German Marinelli MD September 21, 2016 11:43
[2016-09-21] MEDS: HEPARIN SODIUM - SQ 10,000 UNITS/ML VIAL SQ SCH ×2 (12:24→23:43)
[2016-09-22] VITALS (19 sets, daily range): BP systolic 104–134; BP diastolic 55–78; PULSE 93–112; RESP 17–28; TEMP 98.4–99.4; O2SAT 94–100
[2016-09-22] MEDS: AMPICILLIN-SULBACTAM INJ 3 GM in SODIUM CHLORIDE 0.9% INJ 100 ML IV SCH ×4 (02:37→20:20)
[2016-09-22] MEDS: RESP: ALBUTEROL 2.5 MG/IPRATROPIUM 0.5 MG NEB (SCH) NEB ×4 (02:57→19:58)
[2016-09-22] MEDS: CHLORHEXIDINE GLUCONATE 2 % 1 PACK (2 CLOTHS) TOP SCH (03:22)
[2016-09-22] MEDS: INSULIN NovoLIN REGULAR SUPPLEMENTAL SCALE SQ SCH ×6 (03:25→23:43)
[2016-09-22] MEDS: FREE WATER G-TUBE SCH ×4 (04:56→23:41)
--- NOTE | 2016-09-22 04:56 | RADRPT ---
EXAM DATE/TIME: 09/22/2016 03:49 [facility] COMPARISON: CHEST SINGLE AP, September 16, 2016, 1:36. INDICATIONS : Evaluate for respiratory disease. MEDICAL HISTORY : Hypertension. Sepsis. SURGICAL HISTORY : Tracheostomy. ENCOUNTER: Subsequent ACUITY: 3 weeks PAIN SCORE: Non-responsive. LOCATION: chest FINDINGS: A single view of the chest demonstrates slight interstitial prominence greater in the right lung. Hea rt enlarged. Tracheostomy tube unchanged. Osseous structures are intact. CONCLUSION: Cardiomegaly with interstitial edema greater on the right. Jsutyn Bourgeois MD on September 22, 2016 at 4:54 Board Certified Radiologist. This report was verified electronically.
[2016-09-22] MEDS: METOCLOPRAMIDE HCL 10 MG/2 ML VIAL IV PUSH SCH ×3 (04:57→21:29)
--- NOTE | 2016-09-22 07:54 | HHI.CCPN ---
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 He is well-known to me and I have taken care of him during his 2-month prior ICU admission with us. He has a history if dementia, DM, and chronic respiratory failure requiring tracheostomy. [facility] the [facility] for evaluation of hyperglycemia. However, on evaluation in the ER, he was found to be tachycardic , diaphoretic. He had a serum Na 160, glucose of 600, Cr 3 (baseline around 1), lactate of 3.0, wbc 17. He was febrile as well. CXR appears clear and u/a clean. Unfortunately, the patient is unable to provide any additional history given his chronic medical state. The remainder of the history is based on my prior knowledge of the patient and chart review. I evaluated the patient in the emergency department. 09/03: Afebrile. On T piece. No acute issues overnight. Creatinine slowly correcting. 09/04: Currently resting in bed at baseline neurologic valladares. Creatinine slowly correcting. Sodium slowly correcting. Positive BM. Afebrile. 09/05: Currently on TPs. Attempt to switch to trach collar. Sodium and creatinine are cracking. At baseline neurologic valladares. Positive BM. Tolerating tube feeding. 09/06: Noted increasing O2 request up-to-date. Thick greenish secretions. X- ray revealed no acute spines. Possibly mucus plugging. We'll place on ventilator short-term. Add hypertonic saline nebs. Neurologically baseline. 09/07: Continues to be tachypneic on CPAP, rate 30-35. CXR mild diffuse interstitial infiltrates. K 3.4. No improvement in neuro status 09/08: On TP, tachypneic. Fever 102, ID following. Increased ETT secretions. No change in neuro status 09/09: Currently afebrile. Continues to have copious secretions from tracheostomy site. Failed PSV trial today. Positive BM. Tolerating tube feeding 09/10: Tmax 102.8. Currently 97.8. Tolerating tube feeds. Currently a PSV trial 04/24 at 40%. Transition of TP today. Start vancomycin and micafungin yesterday per ID. 09/11: Afebrile. Tolerating tube feeds. Positive BM. Currently on T piece trial. Noted Acinetobacter in sputum and C tropicalis in urine. Infectious disease following 09/12: Tmax 99.7. High residuals today. KUB pending. Currently T piece trial. Neurologically unchanged 09/13: Afebrile. Tolerating tube feeds today. KUB was nonspecific bowel gas pattern. Tolerated CPAP only 10 minutes today. Copious secretions persist. 09/14: Afebrile. Tube feeds back at goal. Currently on CPAP trial 15/5. Continues to have copious secretions 09/15: Afebrile. Tube feeds at goal. Tolerating PSV trial. Continues to have copious secretions. No change in neurological status. 09/16 Tolerating CPAP 15/5. Tolerating tube feeds. 09/17 Tolerating Tpiece 6 hours. 09/18: tolerated t-piece for 9 hours today. otherwise no change. 09/19: PEG tube clogged. GI consulted and plan to exchange at bedside. tolerated t -piece x 24h. 09/20: Tmax 99.3. Currently 99.2. On T piece trial 48 hours now.. Positive bowel movements and currently tolerating tube feeding Subjective 09/21: Currently afebrile. Continues to be on TPs 72 hours. No change in neurological status. 09/22 No events overnight. On TP's with 28% FIO2. Afebrile. Objective Vital Signs Date Time Temp Pulse Resp B/P Pulse Ox O2 Delivery O2 Flow Rate FiO2 09/22/16 07:28 98 T-piece 6.00 28 09/22/16 06:00 107 09/22/16 04:00 99.1 22 115/60 Intake and Output 09/21/16 09/21/16 09/22/16 08:00 16:00 00:00 Intake Total 776 ml 926 ml 847 ml Output Total 300 ml 1150 ml 300 ml Balance 476 ml -224 ml 547 ml Result Diagram: 09/18/16 0515 Imaging Last Impressions Chest X-Ray 09/22/16 0600 Signed Impressions: Service Date/Time: Thursday, September 22, 2016 03:49 - CONCLUSION: Cardiomegaly with interstitial edema greater on the right. Justyn Bourgeois MD Abdomen X-Ray 09/12/16 0000 Signed Impressions: Service Date/Time: Monday, September 12, 2016 12:39 - CONCLUSION: 1. Nonobstructed bowel gas pattern without pneumoperitoneum. 2. Gastrostomy tube in left upper abdominal quadrant. 3. Minimal bibasilar atelectatic changes. Calos Marcano MD Upper Extremity Ultrasound 09/07/16 0000 Signed Impressions: Service Date/Time: August 09:28 - CONCLUSION: Cephalic vein thrombosis. KatRory Da Silva MD Abdomen Ultrasound 09/03/16 0000 Signed Impressions: Service Date/Time: Saturday, September 03, 2016 15:21 - CONCLUSION: 1. No acute findings. Exam somewhat limited by overlying bowel gas. Mina Varghese MD Objective Remarks GENERAL: 80 yo male patient, chronically critically ill currently resting in bed in no acute distress. HEAD: Normocephalic. EYES: PERRL. No scleral icterus. No scleral edema. NECK: Supple, trachea midline. No JVD. tracheostomy in place without erythema or bleeding. CARDIOVASCULAR: RRR. S1, S2 no S4 without murmur RESPIRATORY: Coarse bilateral breath sounds but breathing comfortably on T piece without accessory muscle use. GASTROINTESTINAL: Abdomen soft, non-tender, nondistended. PEG tube is in place MUSCULOSKELETAL: contracted bilateral upper and lower extremity.. With trace nonpitting peripheral upper and lower extremity edema. Neuro: Opens eyes spontaneously. does not follow commands. extends LUE, withdraws x 3. Skin: Stage II-III decubitus ulcer coccyx 2 cm x 2 cm and healing ulcer left heel. 2 small medial right and left toe/foot ulcers A/P Assessment and Plan NEUROLOGY/PSYCH Alzheimer's dementia Hypoactive delirium Depression/anxiety -Acetaminophen for fever/Dilaudid as needed for pain management. -Monitor neuro status and avoid sedatives -Continue Provigil 400 mg daily in attempt increased alertness. On since with minimal improvement PULMONARY Acute on chronic respiratory failure HCAP -HOB at 30 degrees -S/p #8 Johana percutaneous trach 06/13. (Dr. Morataya/Dr. Dai). Downsized to a # 6 Johana DFEN 08/05 -DuoNeb q6h and q2h prn. -Pulm toilet, trach care CARDIOVASCULAR History of Hypertension -Monitor HR and BP keep MAP>65mmHg GASTROENTEROLOGY Failure to thrive Gastroesophageal reflux disease Severe acute protein calorie malnutrition- severe Hypo-albuminemia Elevated transaminases -Continue with TF via PEG tube- Jevity 1.5@55ml/hr -On Pepcid.for GI prophylaxis -PeriColace twice a day for bowel regimen - On Reglan for GI motility RENAL//FEN: Acute kidney injury - resolved BPH Monitor renal function, I/O's, electrolytes replacement per protocol. Renal/abdominal ultrasound revealed no hydronephrosis. On Free water 200ml Q6 INFECTION DISEASE HCAP with Acinetobacter HCAP with PSAE UTI with Proteus and ESBL Klebsiella New fever, sepsis History of E. Cloacae UTI History of MRSA in sputum, colonized History of Klebsiella in sputum, colonized Funguria with history of tropicalis and glabrata Continue abx per ID (Unasyn 09/11, tobramycin nebs 300 every 12 hours until 09/24 to be discontinued) Noted Acinetobacter resistant. Sensitive to Unasyn and tobramycin only. Pertinent cultures 06/04 - urine - E. Cloacae 06/16 - sputum - Alla Tropicalis 06/27 blood - Staph Epi (1/2 bottles) 06/28 urine - alla glabrata 06/28 sputum - Klebsiella (intermediate to zosyn), MRSA 07/12 sputum - MRSA 07/18 sputum - MRSA, Klebsiella 07/21 sputum -MRSA, Klebsiella 07/21 blood -no growth for 2 days 07/21 urine -Alla glabrata 09/02 - blood cultures 2 -staph hominis 09/02: urine - Proteus, Klebsiella ESBL positive 09/03 -sputum-Pseudomonas 09/08 - sputum -Acinetobacter 09/08 - blood cultures 2 - no growth 09/08 - urine -C tropicalis 09/14 - sputum - no growth Influenza negative. HEMATOLOGY History of Normocytic anemia Leukocytosis -Currently no indication for transfusion of blood proximally at this time -Hemoccult stool was negative -Transfuse if hemoglobin below 7. ENDOCRINOLOGY: Hyperglycemia of critical illness Currently on Levemir 15 units twice a day. Medium dose Sliding Scale insulin with Accu-Cheks every 4 hours maintain euglycemia. SKIN Left heel blister Sacral decubitus ulcer stage I -Continue Multi-Podus boots, wound care following - Continue wrist splints alternating sides daily Betadine twice daily to open Wound care evaluate and treat Prophylaxis - GI - Pepcid - DVT - SCD/heparin Access piv Check labs today Kvng Amin and son Winifred are decision-makers. defers to sons Winifred and Milan to make decision making together. Requests full code. This is been in place for the past several months.. Level 3 Janusz Cardenas MD September 22, 2016 07:54
[2016-09-22] MEDS: CHLORHEXIDINE 0.12% (ORAL KIT) 15 ML CUP MT SCH ×2 (08:00→20:00)
[2016-09-22] MEDS: FAMOTIDINE 20 MG TAB NG SCH (08:30)
[2016-09-22] MEDS: MODAFINIL 200 MG TAB PO SCH (08:30)
[2016-09-22] MEDS: ACETAMINOPHEN 325 MG TAB PO PRN (08:30)
[2016-09-22] MEDS: SENNOSIDES SYRUP 8.8 MG/5 ML CUP PO SCH (08:30)
[2016-09-22] MEDS: DOCUSATE SODIUM 100 MG/10 ML UDC PO SCH ×2 (08:30→20:19)
[2016-09-22] MEDS: JUVEN POWDER 1 PACK G-TUBE SCH ×2 (08:31→21:00)
[2016-09-22] MEDS: INSULIN DETEMIR 100 UNITS/ML VIAL SQ SCH ×2 (08:31→20:19)
[2016-09-22] MEDS: SODIUM CHLORIDE 0.9% FLUSH 10 ML FLUSH IV FLUSH SCH ×2 (08:31→20:23)
[2016-09-22] MEDS: NYSTATIN 100,000 U/GM PWD 15 GM BTL TOPICAL SCH ×2 (08:32→20:20)
[2016-09-22] MEDS: POVIDONE IODINE 10% SOLN 480 ML BTL TOPICAL SCH ×2 (08:32→20:21)
[2016-09-22] MEDS: RESP: TOBRAMYCIN SULFATE 300 MG/5 ML NEB NEB SCH ×2 (09:00→19:59)
[2016-09-22 09:52] LABS: AUTOMATED NEUTROPHIL # 3.4 TH/MM3 (1.8-7.7); BASOPHIL % 0.5 % (0.0-2.0); EOSINOPHIL # 0.1 TH/MM3 (0-0.4); EOSINOPHIL % 2.2 % (0.0-4.0); HEMATOCRIT 27.3 % (39.0-51.0); HEMO FLAGS DIFF FINAL; LYMPH % 29.5 % (9.0-44.0); LYMPHOCYTE # 1.7 TH/MM3 (1.0-4.8); MEAN CELL VOLUME 84.9 FL (80.0-100.0); MEAN CORPUSCULAR HEMOGLOBIN 28.5 PG (27.0-34.0); MEAN CORPUSCULAR HGB CONC 33.5 % (32.0-36.0); MONO % 8.1 % (0.0-8.0); NEUT % 59.7 % (16.0-70.0); PLATELET COUNT 237 TH/MM3 (150-450); RED BLOOD COUNT 3.22 MIL/MM3 (4.50-5.90); RED CELL DISTRIBUTION WIDTH 18.7 % (11.6-17.2); WHITE BLOOD COUNT 5.7 TH/MM3 (4.0-11.0)
[2016-09-22 10:22] LABS: ALKALINE PHOSPHATASE 90 U/L (45-117); ALT (GPT) 25 U/L (12-78); ANION GAP 10 MEQ/L (5-15); AST (GOT) 32 U/L (15-37); BICARBONATE 26.5 MEQ/L (21.0-32.0); BLOOD UREA NITROGEN 12 MG/DL (7-18); CHLORIDE 103 MEQ/L (98-107); GLOMERULAR FILTRATION RATE 104 ML/MIN (>89); MAGNESIUM 2.3 MG/DL (1.5-2.5); POTASSIUM 3.8 MEQ/L (3.5-5.1); SODIUM (NA) 139 MEQ/L (136-145); TOTAL BILIRUBIN ADULT 0.3 MG/DL (0.2-1.0)
[2016-09-22] MEDS: HEPARIN SODIUM - SQ 10,000 UNITS/ML VIAL SQ SCH ×2 (12:14→23:41)
[2016-09-22] MEDS: SODIUM PHOSPHATE INJ 30 MMOL in SODIUM CHLOR 0.9% 250 ML INJ 240 ML IV PRN (12:15)
[2016-09-23] VITALS (14 sets, daily range): BP systolic 112–128; BP diastolic 56–70; PULSE 101–126; RESP 24–36; TEMP 98.4–99.9; O2SAT 96–100
[2016-09-23] MEDS: AMPICILLIN-SULBACTAM INJ 3 GM in SODIUM CHLORIDE 0.9% INJ 100 ML IV SCH ×4 (01:47→19:50)
[2016-09-23] MEDS: RESP: ALBUTEROL 2.5 MG/IPRATROPIUM 0.5 MG NEB (SCH) NEB ×4 (03:06→20:48)
[2016-09-23] MEDS: INSULIN NovoLIN REGULAR SUPPLEMENTAL SCALE SQ SCH ×6 (03:34→23:23)
[2016-09-23] MEDS: CHLORHEXIDINE GLUCONATE 2 % 1 PACK (2 CLOTHS) TOP SCH (03:35)
[2016-09-23] MEDS: METOCLOPRAMIDE HCL 10 MG/2 ML VIAL IV PUSH SCH ×3 (05:05→21:39)
[2016-09-23] MEDS: FREE WATER G-TUBE SCH ×4 (05:05→23:22)
[2016-09-23] MEDS: CHLORHEXIDINE 0.12% (ORAL KIT) 15 ML CUP MT SCH ×2 (08:00→20:03)
[2016-09-23] MEDS: RESP: TOBRAMYCIN SULFATE 300 MG/5 ML NEB NEB SCH ×2 (08:10→20:44)
[2016-09-23] MEDS: NYSTATIN 100,000 U/GM PWD 15 GM BTL TOPICAL SCH ×2 (08:14→20:06)
[2016-09-23] MEDS: MODAFINIL 200 MG TAB PO SCH (08:15)
[2016-09-23] MEDS: SENNOSIDES SYRUP 8.8 MG/5 ML CUP PO SCH (08:15)
[2016-09-23] MEDS: INSULIN DETEMIR 100 UNITS/ML VIAL SQ SCH ×2 (08:15→20:04)
[2016-09-23] MEDS: DOCUSATE SODIUM 100 MG/10 ML UDC PO SCH ×2 (08:15→20:05)
[2016-09-23] MEDS: FAMOTIDINE 20 MG TAB NG SCH (08:15)
[2016-09-23] MEDS: POVIDONE IODINE 10% SOLN 480 ML BTL TOPICAL SCH ×2 (08:16→20:05)
[2016-09-23] MEDS: JUVEN POWDER 1 PACK G-TUBE SCH ×2 (08:17→20:18)
[2016-09-23] MEDS: SODIUM CHLORIDE 0.9% FLUSH 10 ML FLUSH IV FLUSH SCH ×2 (08:17→20:07)
--- NOTE | 2016-09-23 08:34 | HHI.CCPN ---
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 He is well-known to me and I have taken care of him during his 2-month prior ICU admission with us. He has a history if dementia, DM, and chronic respiratory failure requiring tracheostomy. [facility]. However, on evaluation in the ER, he was found to be tachycardic , diaphoretic. He had a serum Na 160, glucose of 600, Cr 3 (baseline around 1), lactate of 3.0, wbc 17. He was febrile as well. CXR appears clear and u/a clean. Unfortunately, the patient is unable to provide any additional history given his chronic medical state. The remainder of the history is based on my prior knowledge of the patient and chart review. I evaluated the patient in the emergency department. 09/03: Afebrile. On T piece. No acute issues overnight. Creatinine slowly correcting. 09/04: Currently resting in bed at baseline neurologic valladares. Creatinine slowly correcting. Sodium slowly correcting. Positive BM. Afebrile. 09/05: Currently on TPs. Attempt to switch to trach collar. Sodium and creatinine are cracking. At baseline neurologic valladares. Positive BM. Tolerating tube feeding. 09/06: Noted increasing O2 request up-to-date. Thick greenish secretions. X- ray revealed no acute spines. Possibly mucus plugging. We'll place on ventilator short-term. Add hypertonic saline nebs. Neurologically baseline. 09/07: Continues to be tachypneic on CPAP, rate 30-35. CXR mild diffuse interstitial infiltrates. K 3.4. No improvement in neuro status 09/08: On TP, tachypneic. Fever 102, ID following. Increased ETT secretions. No change in neuro status 09/09: Currently afebrile. Continues to have copious secretions from tracheostomy site. Failed PSV trial today. Positive BM. Tolerating tube feeding 09/10: Tmax 102.8. Currently 97.8. Tolerating tube feeds. Currently a PSV trial 04/24 at 40%. Transition of TP today. Start vancomycin and micafungin yesterday per ID. 09/11: Afebrile. Tolerating tube feeds. Positive BM. Currently on T piece trial. Noted Acinetobacter in sputum and C tropicalis in urine. Infectious disease following 09/12: Tmax 99.7. High residuals today. KUB pending. Currently T piece trial. Neurologically unchanged 09/13: Afebrile. Tolerating tube feeds today. KUB was nonspecific bowel gas pattern. Tolerated CPAP only 10 minutes today. Copious secretions persist. 09/14: Afebrile. Tube feeds back at goal. Currently on CPAP trial 15/5. Continues to have copious secretions 09/15: Afebrile. Tube feeds at goal. Tolerating PSV trial. Continues to have copious secretions. No change in neurological status. 09/16 Tolerating CPAP 15/5. Tolerating tube feeds. 09/17 Tolerating Tpiece 6 hours. 09/18: tolerated t-piece for 9 hours today. otherwise no change. 09/19: PEG tube clogged. GI consulted and plan to exchange at bedside. tolerated t -piece x 24h. 09/20: Tmax 99.3. Currently 99.2. On T piece trial 48 hours now.. Positive bowel movements and currently tolerating tube feeding 09/21: Currently afebrile. Continues to be on TPs 72 hours. No change in neurological status. 09/22 No events overnight. On TP's with 28% FIO2. Afebrile. Subjective 09/23: Afebrile. Continues on T piece 5 days. No change in neurological status. Positive BM. Tolerating tube feeding Objective Vital Signs Date Time Temp Pulse Resp B/P Pulse Ox O2 Delivery O2 Flow Rate FiO2 09/23/16 08:08 100 T-piece 6.00 28 09/23/16 06:00 106 09/23/16 04:00 98.8 24 128/70 Intake and Output 09/22/16 09/22/16 09/23/16 08:00 16:00 00:00 Intake Total 747 ml 587 ml 673 ml Output Total 400 ml 1000 ml 600 ml Balance 347 ml -413 ml 73 ml Result Diagram: 09/22/16 0830 09/22/16 0830 Imaging Last Impressions Chest X-Ray 09/22/16 0600 Signed Impressions: Service Date/Time: Thursday, September 22, 2016 03:49 - CONCLUSION: Cardiomegaly with interstitial edema greater on the right. Justyn Bourgeois MD Abdomen X-Ray 09/12/16 0000 Signed Impressions: Service Date/Time: Monday, September 12, 2016 12:39 - CONCLUSION: 1. Nonobstructed bowel gas pattern without pneumoperitoneum. 2. Gastrostomy tube in left upper abdominal quadrant. 3. Minimal bibasilar atelectatic changes. Calos Marcano MD Upper Extremity Ultrasound 09/07/16 0000 Signed Impressions: Service Date/Time: August 09:28 - CONCLUSION: Cephalic vein thrombosis. K. Marquis Da Silva MD Abdomen Ultrasound 09/03/16 0000 Signed Impressions: Service Date/Time: Saturday, September 03, 2016 15:21 - CONCLUSION: 1. No acute findings. Exam somewhat limited by overlying bowel gas. Mina Varghese MD Objective Remarks GENERAL: 80 yo male patient, chronically critically ill currently resting in bed in no acute distress. HEAD: Normocephalic. EYES: PERRL. No scleral icterus. No scleral edema. NECK: Supple, trachea midline. No JVD. tracheostomy in place without erythema or bleeding. CARDIOVASCULAR: RRR. S1, S2 no S4 without murmur RESPIRATORY: Coarse bilateral breath sounds but breathing comfortably on T piece without accessory muscle use. GASTROINTESTINAL: Abdomen soft, non-tender, nondistended. PEG tube is in place MUSCULOSKELETAL: contracted bilateral upper and lower extremity.. With trace nonpitting peripheral upper and lower extremity edema. Neuro: Opens eyes spontaneously. does not follow commands. extends LUE, withdraws x 3. Skin: Stage II-III decubitus ulcer coccyx 2 cm x 2 cm and healing ulcer left heel. 2 small medial right and left toe/foot ulcers A/P Assessment and Plan NEUROLOGY/PSYCH Alzheimer's dementia Hypoactive delirium Depression/anxiety -Acetaminophen for fever/Dilaudid as needed for pain management. -Monitor neuro status and avoid sedatives -Continue Provigil 400 mg daily in attempt increased alertness. On since with minimal improvement PULMONARY Acute on chronic respiratory failure HCAP -HOB at 30 degrees -S/p #8 [place] percutaneous trach 06/13. (Dr. Morataya/Dr. Dai). Downsized to a # 6 Johana DFQING 08/05 -DuoNeb q6h and q2h prn. -Pulm toilet, trach care On T piece FiO2 28% CARDIOVASCULAR History of Hypertension -Monitor HR and BP keep MAP>65mmHg GASTROENTEROLOGY Failure to thrive Gastroesophageal reflux disease Severe acute protein calorie malnutrition- severe Hypo-albuminemia Elevated transaminases -Continue with TF via PEG tube- Jevity 1.5@55ml/hr -On Pepcid.for GI prophylaxis -PeriColace twice a day for bowel regimen - On Reglan for GI motility RENAL//FEN: Acute kidney injury - resolved BPH Monitor renal function, I/O's, electrolytes replacement per protocol. Renal/abdominal ultrasound revealed no hydronephrosis. On Free water 200ml Q6 INFECTION DISEASE HCAP with Acinetobacter HCAP with PSAE UTI with Proteus and ESBL Klebsiella New fever, sepsis History of E. Cloacae UTI History of MRSA in sputum, colonized History of Klebsiella in sputum, colonized Funguria with history of tropicalis and glabrata Continue abx per ID (Unasyn 09/11, tobramycin nebs 300 every 12 hours until 09/24 to be discontinued) Noted Acinetobacter resistant. Sensitive to Unasyn and tobramycin only. Pertinent cultures 06/04 - urine - E. Cloacae 06/16 - sputum - Alla Tropicalis 06/27 blood - Staph Epi (1/2 bottles) 06/28 urine - alla glabrata 06/28 sputum - Klebsiella (intermediate to zosyn), MRSA 07/12 sputum - MRSA 07/18 sputum - MRSA, Klebsiella 07/21 sputum -MRSA, Klebsiella 07/21 blood -no growth for 2 days 07/21 urine -Alla glabrata 09/02 - blood cultures 2 -staph hominis 09/02: urine - Proteus, Klebsiella ESBL positive 09/03 -sputum-Pseudomonas 09/08 - sputum -Acinetobacter 09/08 - blood cultures 2 - no growth 09/08 - urine -C tropicalis 09/14 - sputum - no growth Influenza negative. HEMATOLOGY History of Normocytic anemia Leukocytosis -Currently no indication for transfusion of blood proximally at this time -Hemoccult stool was negative -Transfuse if hemoglobin below 7. ENDOCRINOLOGY: Hyperglycemia of critical illness Currently on Levemir 15 units twice a day. Medium dose Sliding Scale insulin with Accu-Cheks every 4 hours maintain euglycemia. SKIN Left heel blister Sacral decubitus ulcer stage I -Continue Multi-Podus boots, wound care following - Continue wrist splints alternating sides daily Betadine twice daily to open Wound care evaluate and treat Prophylaxis - GI - Pepcid - DVT - SCD/heparin Access piv Check labs today Kvng Amin and son Winifred are decision-makers. defers to sons Winifred and Milan to make decision making together. Requests full code. This is been in place for the past several months.. Level 2 German Marinelli MD September 23, 2016 08:34
[2016-09-23] MEDS: HEPARIN SODIUM - SQ 10,000 UNITS/ML VIAL SQ SCH ×2 (12:21→23:23)
[2016-09-23] MEDS: ACETAMINOPHEN 325 MG TAB PO PRN (23:56)
[2016-09-24] VITALS (14 sets, daily range): BP systolic 100–137; BP diastolic 53–78; PULSE 102–134; RESP 24–26; TEMP 98.8–101.8; O2SAT 97–100
[2016-09-24] MEDS: RESP: ALBUTEROL 2.5 MG/IPRATROPIUM 0.5 MG NEB (SCH) NEB ×4 (03:41→20:39)
[2016-09-24] MEDS: CHLORHEXIDINE GLUCONATE 2 % 1 PACK (2 CLOTHS) TOP SCH (04:00)
[2016-09-24] MEDS: INSULIN NovoLIN REGULAR SUPPLEMENTAL SCALE SQ SCH ×6 (04:00→23:35)
[2016-09-24] MEDS: AMPICILLIN-SULBACTAM INJ 3 GM in SODIUM CHLORIDE 0.9% INJ 100 ML IV SCH ×4 (04:21→19:44)
[2016-09-24] MEDS: HYDROmorphone HCL PF 1 MG/ML VIAL IV PUSH PRN (04:25)
[2016-09-24] MEDS: METOCLOPRAMIDE HCL 10 MG/2 ML VIAL IV PUSH SCH ×3 (05:34→22:48)
[2016-09-24] MEDS ORDERED: DIATRIZOATE MEGLUM/DIATRIZOATE SOD 120 ML BTL (for RAD DIAG) PEG ONE (05:43)
--- NOTE | 2016-09-24 05:52 | RADRPT ---
EXAM DATE/TIME: 09/24/2016 05:27 [facility] COMPARISON: No previous studies available for comparison. INDICATIONS : Replacement of PEG tube. MEDICAL HISTORY : Hypertension. Sepsis. SURGICAL HISTORY : Tracheostomy PEG tube ENCOUNTER: Subsequent ACUITY: 2 months PAIN SCORE: Non-responsive. LOCATION: Left upper quadrant FINDINGS: Supine view of the abdomen was performed. The abdominal bowel gas pattern is normal. Contrast is see n within the stomach/proximal small bowel via PEG tube. The osseous structures are unremarkable. CONCLUSION: Adequate placement of PEG tube. Justyn Bourgeois MD on September 24, 2016 at 5:50 Board Certified Radiologist. This report was verified electronically.
[2016-09-24] MEDS: FREE WATER G-TUBE SCH ×4 (06:00→23:36)
[2016-09-24] MEDS: RESP: TOBRAMYCIN SULFATE 300 MG/5 ML NEB NEB SCH ×2 (07:57→20:58)
[2016-09-24] MEDS: FAMOTIDINE 20 MG TAB NG SCH (08:05)
[2016-09-24] MEDS: MODAFINIL 200 MG TAB PO SCH (08:05)
[2016-09-24] MEDS: INSULIN DETEMIR 100 UNITS/ML VIAL SQ SCH ×2 (08:05→19:45)
[2016-09-24] MEDS: SODIUM CHLORIDE 0.9% FLUSH 10 ML FLUSH IV FLUSH SCH ×2 (08:05→19:45)
[2016-09-24] MEDS: DOCUSATE SODIUM 100 MG/10 ML UDC PO SCH ×2 (08:05→19:45)
[2016-09-24] MEDS: JUVEN POWDER 1 PACK G-TUBE SCH ×2 (08:06→19:45)
[2016-09-24] MEDS: CHLORHEXIDINE 0.12% (ORAL KIT) 15 ML CUP MT SCH ×2 (08:07→19:46)
[2016-09-24] MEDS: NYSTATIN 100,000 U/GM PWD 15 GM BTL TOPICAL SCH ×2 (08:08→19:46)
[2016-09-24] MEDS: POVIDONE IODINE 10% SOLN 480 ML BTL TOPICAL SCH ×2 (08:08→19:47)
[2016-09-24] MEDS: SENNOSIDES SYRUP 8.8 MG/5 ML CUP PO SCH (08:13)
--- NOTE | 2016-09-24 13:07 | HHI.CCPN ---
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 He is well-known to me and I have taken care of him during his 2-month prior ICU admission with us. He has a history if dementia, DM, and chronic respiratory failure requiring tracheostomy. [facility]. However, on evaluation in the ER, he was found to be tachycardic , diaphoretic. He had a serum Na 160, glucose of 600, Cr 3 (baseline around 1), lactate of 3.0, wbc 17. He was febrile as well. CXR appears clear and u/a clean. Unfortunately, the patient is unable to provide any additional history given his chronic medical state. The remainder of the history is based on my prior knowledge of the patient and chart review. I evaluated the patient in the emergency department. 09/03: Afebrile. On T piece. No acute issues overnight. Creatinine slowly correcting. 09/04: Currently resting in bed at baseline neurologic valladares. Creatinine slowly correcting. Sodium slowly correcting. Positive BM. Afebrile. 09/05: Currently on TPs. Attempt to switch to trach collar. Sodium and creatinine are cracking. At baseline neurologic valladares. Positive BM. Tolerating tube feeding. 09/06: Noted increasing O2 request up-to-date. Thick greenish secretions. X- ray revealed no acute spines. Possibly mucus plugging. We'll place on ventilator short-term. Add hypertonic saline nebs. Neurologically baseline. 09/07: Continues to be tachypneic on CPAP, rate 30-35. CXR mild diffuse interstitial infiltrates. K 3.4. No improvement in neuro status 09/08: On TP, tachypneic. Fever 102, ID following. Increased ETT secretions. No change in neuro status 09/09: Currently afebrile. Continues to have copious secretions from tracheostomy site. Failed PSV trial today. Positive BM. Tolerating tube feeding 09/10: Tmax 102.8. Currently 97.8. Tolerating tube feeds. Currently a PSV trial 04/24 at 40%. Transition of TP today. Start vancomycin and micafungin yesterday per ID. 09/11: Afebrile. Tolerating tube feeds. Positive BM. Currently on T piece trial. Noted Acinetobacter in sputum and C tropicalis in urine. Infectious disease following 09/12: Tmax 99.7. High residuals today. KUB pending. Currently T piece trial. Neurologically unchanged 09/13: Afebrile. Tolerating tube feeds today. KUB was nonspecific bowel gas pattern. Tolerated CPAP only 10 minutes today. Copious secretions persist. 09/14: Afebrile. Tube feeds back at goal. Currently on CPAP trial 15/5. Continues to have copious secretions 09/15: Afebrile. Tube feeds at goal. Tolerating PSV trial. Continues to have copious secretions. No change in neurological status. 09/16 Tolerating CPAP 15/5. Tolerating tube feeds. 09/17 Tolerating Tpiece 6 hours. 09/18: tolerated t-piece for 9 hours today. otherwise no change. 09/19: PEG tube clogged. GI consulted and plan to exchange at bedside. tolerated t -piece x 24h. 09/20: Tmax 99.3. Currently 99.2. On T piece trial 48 hours now.. Positive bowel movements and currently tolerating tube feeding 09/21: Currently afebrile. Continues to be on TPs 72 hours. No change in neurological status. 09/22 No events overnight. On TP's with 28% FIO2. Afebrile. 09/23: Afebrile. Continues on T piece 5 days. No change in neurological status. Positive BM. Tolerating tube feeding Subjective 09/24: Low-grade temperatures overnight. Continues on T piece. TE be done last night due to emesis. Shows no specific abnormalities. Patient had blood cultures and urine cultures in this AM. Objective Vital Signs Date Time Temp Pulse Resp B/P Pulse Ox O2 Delivery O2 Flow Rate FiO2 09/24/16 10:00 119 09/24/16 08:00 98.8 26 115/57 100 09/24/16 07:57 T-piece 6.00 28 Intake and Output 09/23/16 09/23/16 09/24/16 08:00 16:00 00:00 Intake Total 707 ml 1326 ml 825 ml Output Total 550 ml 1050 ml 550 ml Balance 157 ml 276 ml 275 ml Result Diagram: 09/22/16 0830 09/22/16 0830 Other Results Microbiology Date/Time Procedure Status Source Growth 09/24/16 05:15 Urine Culture Received Urine Catheterized Urine Pending 09/24/16 05:15 Gram Stain Received Sputum Endotracheal Pending 09/24/16 05:15 Sputum Culture Received Sputum Endotracheal Pending 09/24/16 05:15 Cancelled Sputum Endotracheal 09/24/16 04:04 Aerobic Blood Culture Received Blood Peripheral Pending 09/24/16 04:04 Anaerobic Blood Culture Received Blood Peripheral Pending Imaging Last Impressions Abdomen X-Ray 09/24/16 0000 Signed Impressions: Service Date/Time: Saturday, September 24, 2016 05:27 - CONCLUSION: Adequate placement of PEG tube. Justyn Bourgeois MD Chest X-Ray 09/22/16 0600 Signed Impressions: Service Date/Time: Thursday, September 22, 2016 03:49 - CONCLUSION: Cardiomegaly with interstitial edema greater on the right. Justyn Bourgeois MD Upper Extremity Ultrasound 09/07/16 0000 Signed Impressions: Service Date/Time: August 09:28 - CONCLUSION: Cephalic vein thrombosis. K. Marquis Da Silva MD Abdomen Ultrasound 09/03/16 0000 Signed Impressions: Service Date/Time: Saturday, September 03, 2016 15:21 - CONCLUSION: 1. No acute findings. Exam somewhat limited by overlying bowel gas. Mina Varghese MD Objective Remarks GENERAL: 80 yo male patient, chronically critically ill currently resting in bed in no acute distress. HEAD: Normocephalic. EYES: PERRL. No scleral icterus. No scleral edema. NECK: Supple, trachea midline. No JVD. tracheostomy in place without erythema or bleeding. CARDIOVASCULAR: RRR. S1, S2 no S4 without murmur RESPIRATORY: Coarse bilateral breath sounds but breathing comfortably on T piece without accessory muscle use. GASTROINTESTINAL: Abdomen soft, non-tender, nondistended. PEG tube is in place MUSCULOSKELETAL: contracted bilateral upper and lower extremity.. With trace nonpitting peripheral upper and lower extremity edema. Neuro: Opens eyes spontaneously. does not follow commands. extends LUE, withdraws x 3. Skin: Stage II-III decubitus ulcer coccyx 2 cm x 2 cm and healing ulcer left heel. 2 small medial right and left toe/foot ulcers A/P Assessment and Plan NEUROLOGY/PSYCH Alzheimer's dementia Hypoactive delirium Depression/anxiety -Acetaminophen for fever/Dilaudid as needed for pain management. -Monitor neuro status and avoid sedatives -Continue Provigil 400 mg daily in attempt increased alertness. On since with minimal improvement PULMONARY Acute on chronic respiratory failure HCAP -HOB at 30 degrees -S/p #8 [place] percutaneous trach 06/13. (Dr. Morataya/Dr. Dai). Downsized to a # 6 Johana DFEN 08/05 -DuoNeb q6h and q2h prn. -Pulm toilet, trach care On T piece FiO2 28% CARDIOVASCULAR History of Hypertension -Monitor HR and BP keep MAP>65mmHg GASTROENTEROLOGY Failure to thrive Gastroesophageal reflux disease Severe acute protein calorie malnutrition- severe Hypo-albuminemia Elevated transaminases -Continue with TF via PEG tube- Jevity 1.5@55ml/hr -On Pepcid.for GI prophylaxis -PeriColace twice a day for bowel regimen - On Reglan for GI motility KUB overnight revealed no acute GI abnormalities RENAL//FEN: Acute kidney injury - resolved BPH Monitor renal function, I/O's, electrolytes replacement per protocol. Renal/abdominal ultrasound revealed no hydronephrosis. On Free water 200ml Q6 INFECTION DISEASE HCAP with Acinetobacter HCAP with PSAE UTI with Proteus and ESBL Klebsiella New fever, sepsis History of E. Cloacae UTI History of MRSA in sputum, colonized History of Klebsiella in sputum, colonized Funguria with history of tropicalis and glabrata Continue abx per ID (Unasyn 09/11, tobramycin nebs 300 every 12 hours until 09/24 to be discontinued) Noted Acinetobacter resistant. Sensitive to Unasyn and tobramycin only. Pertinent cultures 06/04 - urine - E. Cloacae 06/16 - sputum - Alla Tropicalis 06/27 blood - Staph Epi (1/2 bottles) 06/28 urine - alla glabrata 06/28 sputum - Klebsiella (intermediate to zosyn), MRSA 07/12 sputum - MRSA 07/18 sputum - MRSA, Klebsiella 07/21 sputum -MRSA, Klebsiella 07/21 blood -no growth for 2 days 07/21 urine -Alla glabrata 09/02 - blood cultures 2 -staph hominis 09/02: urine - Proteus, Klebsiella ESBL positive 09/03 -sputum-Pseudomonas 09/08 - sputum -Acinetobacter 09/08 - blood cultures 2 - no growth 09/08 - urine -C tropicalis 09/14 - sputum - no growth Influenza negative. HEMATOLOGY History of Normocytic anemia Leukocytosis -Currently no indication for transfusion of blood proximally at this time -Hemoccult stool was negative -Transfuse if hemoglobin below 7. ENDOCRINOLOGY: Hyperglycemia of critical illness Currently on Levemir 15 units twice a day. Medium dose Sliding Scale insulin with Accu-Cheks every 4 hours maintain euglycemia. SKIN Left heel blister Sacral decubitus ulcer stage I -Continue Multi-Podus boots, wound care following - Continue wrist splints alternating sides daily Betadine twice daily to open Wound care evaluate and treat Prophylaxis - GI - Pepcid - DVT - SCD/heparin Access piv Check labs today Kvng Amin and son Winifred are decision-makers. defers to sons Winifred and Milan to make decision making together. Requests full code. This is been in place for the past several months.. Level 2 German Marinelli MD September 24, 2016 13:07
[2016-09-24] MEDS: ACETAMINOPHEN 325 MG TAB PO PRN ×2 (13:15→19:56)
[2016-09-24] MEDS: HEPARIN SODIUM - SQ 10,000 UNITS/ML VIAL SQ SCH ×2 (13:16→23:39)
[2016-09-25] VITALS (14 sets, daily range): BP systolic 109–142; BP diastolic 56–68; PULSE 91–120; RESP 22–24; TEMP 98.6–100.4; O2SAT 94–100
[2016-09-25] MEDS: RESP: ALBUTEROL 2.5 MG/IPRATROPIUM 0.5 MG NEB (SCH) NEB ×4 (02:39→23:02)
[2016-09-25] MEDS: ACETAMINOPHEN 325 MG TAB PO PRN ×2 (03:32→11:43)
[2016-09-25] MEDS: INSULIN NovoLIN REGULAR SUPPLEMENTAL SCALE SQ SCH ×5 (03:32→20:00)
[2016-09-25] MEDS: CHLORHEXIDINE GLUCONATE 2 % 1 PACK (2 CLOTHS) TOP SCH (03:33)
[2016-09-25 05:52] LABS: AUTOMATED NEUTROPHIL # 5.4 TH/MM3 (1.8-7.7); BASOPHIL # 0.1 TH/MM3 (0-0.2); BASOPHIL % 0.6 % (0.0-2.0); EOSINOPHIL # 0.3 TH/MM3 (0-0.4); EOSINOPHIL % 3.2 % (0.0-4.0); HEMATOCRIT 27.2 % (39.0-51.0); LYMPH % 20.2 % (9.0-44.0); LYMPHOCYTE # 1.6 TH/MM3 (1.0-4.8); MEAN CELL VOLUME 85.2 FL (80.0-100.0); MEAN CORPUSCULAR HEMOGLOBIN 28.9 PG (27.0-34.0); MEAN CORPUSCULAR HGB CONC 33.9 % (32.0-36.0); MONO % 8.8 % (0.0-8.0); NEUT % 67.2 % (16.0-70.0); PLATELET COUNT 257 TH/MM3 (150-450); RED CELL DISTRIBUTION WIDTH 19.3 % (11.6-17.2)
[2016-09-25] MEDS: METOCLOPRAMIDE HCL 10 MG/2 ML VIAL IV PUSH SCH ×3 (05:55→21:23)
[2016-09-25] MEDS: FREE WATER G-TUBE SCH ×3 (05:55→18:35)
[2016-09-25 05:59] LABS: HEMO FLAGS AUTO DIFF
--- NOTE | 2016-09-25 06:00 | RADRPT ---
EXAM DATE/TIME: 09/25/2016 05:00 [facility] COMPARISON: CHEST SINGLE AP, September 22, 2016, 3:49. INDICATIONS : Shortness of breath, possible pulmonary disease. MEDICAL HISTORY : Hypertension. Sepsis. Dementia. SURGICAL HISTORY : None. ENCOUNTER: Subsequent ACUITY: 3 weeks PAIN SCORE: Non-responsive. LOCATION: Bilateral chest FINDINGS: A single view of the chest demonstrates the lungs to be symmetrically aerated without evidence of mas s, infiltrate or effusion. The cardiomediastinal contours are unremarkable. Osseous structures are intact. Tracheostomy tube. CONCLUSION: Clear lungs. Henri Shirley Jr., MD on September 25, 2016 at 5:58 Board Certified Radiologist. This report was verified electronically.
[2016-09-25 06:20] LABS: ALKALINE PHOSPHATASE 91 U/L (45-117); ALT (GPT) 27 U/L (12-78); ANION GAP 11 MEQ/L (5-15); BLOOD UREA NITROGEN 22 MG/DL (7-18); CHLORIDE 103 MEQ/L (98-107); GLOMERULAR FILTRATION RATE 94 ML/MIN (>89); MAGNESIUM 2.2 MG/DL (1.5-2.5); POTASSIUM 3.9 MEQ/L (3.5-5.1); SODIUM (NA) 141 MEQ/L (136-145); TOTAL BILIRUBIN ADULT 0.4 MG/DL (0.2-1.0)
[2016-09-25 06:49] LABS: AST (GOT) 119 U/L (15-37)
[2016-09-25] MEDS: SODIUM PHOSPHATE INJ 30 MMOL in SODIUM CHLOR 0.9% 250 ML INJ 240 ML IV PRN (08:18)
[2016-09-25] MEDS: INSULIN DETEMIR 100 UNITS/ML VIAL SQ SCH ×2 (08:21→21:00)
[2016-09-25] MEDS: MODAFINIL 200 MG TAB PO SCH (08:22)
[2016-09-25] MEDS: SENNOSIDES SYRUP 8.8 MG/5 ML CUP PO SCH (08:22)
[2016-09-25] MEDS: DOCUSATE SODIUM 100 MG/10 ML UDC PO SCH ×2 (08:22→21:00)
[2016-09-25] MEDS: SODIUM CHLORIDE 0.9% FLUSH 10 ML FLUSH IV FLUSH SCH ×2 (08:22→21:00)
[2016-09-25] MEDS: FAMOTIDINE 20 MG TAB NG SCH (08:22)
[2016-09-25] MEDS: CHLORHEXIDINE 0.12% (ORAL KIT) 15 ML CUP MT SCH ×2 (08:23→21:18)
[2016-09-25] MEDS: POVIDONE IODINE 10% SOLN 480 ML BTL TOPICAL SCH ×2 (08:24→21:00)
[2016-09-25] MEDS: NYSTATIN 100,000 U/GM PWD 15 GM BTL TOPICAL SCH ×2 (08:24→21:22)
[2016-09-25 08:42] LABS: BANDS 1 % (0-6); EOSINOPHILS 1 % (0-4); MYELOCYTES 1 % (0-0); NEUTROPHIL # MANUAL DIFF 6.8 TH/MM3 (1.8-7.7); PLATELET ESTIMATE SMEAR NORMAL (NORMAL); PLATELET MORPHOLOGY NORMAL (NORMAL); POLYS (SEG NEUTROPHILS) 83 % (16-70); SCAN/DIFF FINAL DIFF MANUAL; WBC DIFF SAMPLE 100
[2016-09-25] MEDS: JUVEN POWDER 1 PACK G-TUBE SCH ×2 (09:46→21:00)
--- NOTE | 2016-09-25 09:51 | HHI.CCPN ---
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 He is well-known to me and I have taken care of him during his 2-month prior ICU admission with us. He has a history if dementia, DM, and chronic respiratory failure requiring tracheostomy. [facility]. However, on evaluation in the ER, he was found to be tachycardic , diaphoretic. He had a serum Na 160, glucose of 600, Cr 3 (baseline around 1), lactate of 3.0, wbc 17. He was febrile as well. CXR appears clear and u/a clean. Unfortunately, the patient is unable to provide any additional history given his chronic medical state. The remainder of the history is based on my prior knowledge of the patient and chart review. I evaluated the patient in the emergency department. 09/03: Afebrile. On T piece. No acute issues overnight. Creatinine slowly correcting. 09/04: Currently resting in bed at baseline neurologic valladares. Creatinine slowly correcting. Sodium slowly correcting. Positive BM. Afebrile. 09/05: Currently on TPs. Attempt to switch to trach collar. Sodium and creatinine are cracking. At baseline neurologic valladares. Positive BM. Tolerating tube feeding. 09/06: Noted increasing O2 request up-to-date. Thick greenish secretions. X- ray revealed no acute spines. Possibly mucus plugging. We'll place on ventilator short-term. Add hypertonic saline nebs. Neurologically baseline. 09/07: Continues to be tachypneic on CPAP, rate 30-35. CXR mild diffuse interstitial infiltrates. K 3.4. No improvement in neuro status 09/08: On TP, tachypneic. Fever 102, ID following. Increased ETT secretions. No change in neuro status 09/09: Currently afebrile. Continues to have copious secretions from tracheostomy site. Failed PSV trial today. Positive BM. Tolerating tube feeding 09/10: Tmax 102.8. Currently 97.8. Tolerating tube feeds. Currently a PSV trial 04/24 at 40%. Transition of TP today. Start vancomycin and micafungin yesterday per ID. 09/11: Afebrile. Tolerating tube feeds. Positive BM. Currently on T piece trial. Noted Acinetobacter in sputum and C tropicalis in urine. Infectious disease following 09/12: Tmax 99.7. High residuals today. KUB pending. Currently T piece trial. Neurologically unchanged 09/13: Afebrile. Tolerating tube feeds today. KUB was nonspecific bowel gas pattern. Tolerated CPAP only 10 minutes today. Copious secretions persist. 09/14: Afebrile. Tube feeds back at goal. Currently on CPAP trial 15/5. Continues to have copious secretions 09/15: Afebrile. Tube feeds at goal. Tolerating PSV trial. Continues to have copious secretions. No change in neurological status. 09/16 Tolerating CPAP 15/5. Tolerating tube feeds. 09/17 Tolerating Tpiece 6 hours. 09/18: tolerated t-piece for 9 hours today. otherwise no change. 09/19: PEG tube clogged. GI consulted and plan to exchange at bedside. tolerated t -piece x 24h. 09/20: Tmax 99.3. Currently 99.2. On T piece trial 48 hours now.. Positive bowel movements and currently tolerating tube feeding 09/21: Currently afebrile. Continues to be on TPs 72 hours. No change in neurological status. 09/22 No events overnight. On TP's with 28% FIO2. Afebrile. 09/23: Afebrile. Continues on T piece 5 days. No change in neurological status. Positive BM. Tolerating tube feeding Subjective 09/24: Low-grade temperatures overnight. Continues on T piece. TE be done last night due to emesis. Shows no specific abnormalities. Patient had blood cultures and urine cultures in this AM. 09/25 No acute events overnight. T: 100.1 at 4 am. Has been on TP's for several days with 28% FIO2. Objective Vital Signs Date Time Temp Pulse Resp B/P Pulse Ox O2 Delivery O2 Flow Rate FiO2 09/25/16 08:37 98 T-piece 6.00 25 09/25/16 06:00 120 09/25/16 04:00 100.1 22 142/68 Intake and Output 09/24/16 09/24/16 09/24/16 07:59 15:59 23:59 Intake Total 825 ml 2299 ml Output Total 550 ml 1475 ml Balance 275 ml 824 ml Result Diagram: 09/25/16 0532 09/25/16 0532 Other Results Laboratory Tests Test 09/25/16 05:32 White Blood Count 8.0 TH/MM3 Red Blood Count 3.20 MIL/MM3 Hemoglobin 9.2 GM/DL Hematocrit 27.2 % Mean Corpuscular Volume 85.2 FL Mean Corpuscular Hemoglobin 28.9 PG Mean Corpuscular Hemoglobin 33.9 % Concent Red Cell Distribution Width 19.3 % Platelet Count 257 TH/MM3 Mean Platelet Volume 6.7 FL Neutrophils (%) (Auto) 67.2 % Lymphocytes (%) (Auto) 20.2 % Monocytes (%) (Auto) 8.8 % Eosinophils (%) (Auto) 3.2 % Basophils (%) (Auto) 0.6 % Neutrophils # (Auto) 5.4 TH/MM3 Lymphocytes # (Auto) 1.6 TH/MM3 Monocytes # (Auto) 0.7 TH/MM3 Eosinophils # (Auto) 0.3 TH/MM3 Basophils # (Auto) 0.1 TH/MM3 CBC Comment AUTO DIFF Differential Total Cells 100 Counted Neutrophils % (Manual) 83 % Band Neutrophils % 1 % Lymphocytes % 9 % Monocytes % 5 % Eosinophils % 1 % Neutrophils # (Manual) 6.8 TH/MM3 Myelocytes 1 % Differential Comment FINAL DIFF MANUAL Platelet Estimate NORMAL Platelet Morphology Comment NORMAL Sodium Level 141 MEQ/L Potassium Level 3.9 MEQ/L Chloride Level 103 MEQ/L Carbon Dioxide Level 27.0 MEQ/L Anion Gap 11 MEQ/L Blood Urea Nitrogen 22 MG/DL Creatinine 0.79 MG/DL Estimat Glomerular Filtration 94 ML/MIN Rate Random Glucose 161 MG/DL Lactic Acid Level 1.9 mmol/L Calcium Level 8.7 MG/DL Phosphorus Level 2.4 MG/DL Magnesium Level 2.2 MG/DL Total Bilirubin 0.4 MG/DL Aspartate Amino Transf 119 U/L (AST/SGOT) Alanine Aminotransferase 27 U/L (ALT/SGPT) Alkaline Phosphatase 91 U/L Total Protein 7.5 GM/DL Albumin 2.5 GM/DL Lipase 220 U/L Imaging Last Impressions Chest X-Ray 09/25/16 0600 Signed Impressions: Service Date/Time: Sunday, September 25, 2016 05:00 - CONCLUSION: Clear lungs. Henri Shirley Jr., MD Abdomen X-Ray 09/24/16 0000 Signed Impressions: Service Date/Time: Saturday, September 24, 2016 05:27 - CONCLUSION: Adequate placement of PEG tube. Justyn Bourgeois MD Upper Extremity Ultrasound 09/07/16 0000 Signed Impressions: Service Date/Time: August 09:28 - CONCLUSION: Cephalic vein thrombosis. Acosta Da Silva MD Abdomen Ultrasound 09/03/16 0000 Signed Impressions: Service Date/Time: Saturday, September 03, 2016 15:21 - CONCLUSION: 1. No acute findings. Exam somewhat limited by overlying bowel gas. Mina Varghese MD Objective Remarks GENERAL: 80 yo male patient, chronically critically ill currently resting in bed in no acute distress. HEAD: Normocephalic. EYES: PERRL. No scleral icterus. No scleral edema. NECK: Supple, trachea midline. No JVD. tracheostomy in place without erythema or bleeding. CARDIOVASCULAR: RRR. S1, S2 no S4 without murmur RESPIRATORY: Coarse bilateral breath sounds but breathing comfortably on T piece without accessory muscle use. GASTROINTESTINAL: Abdomen soft, non-tender, nondistended. PEG tube is in place MUSCULOSKELETAL: contracted bilateral upper and lower extremity.. With trace nonpitting peripheral upper and lower extremity edema. Neuro: Opens eyes spontaneously. does not follow commands. extends LUE, withdraws x 3. Skin: Stage II-III decubitus ulcer coccyx 2 cm x 2 cm and healing ulcer left heel. 2 small medial right and left toe/foot ulcers A/P Assessment and Plan NEUROLOGY/PSYCH Alzheimer's dementia Hypoactive delirium Depression/anxiety -Acetaminophen for fever/Dilaudid as needed for pain management. -Monitor neuro status and avoid sedatives -Continue Provigil 400 mg daily in attempt increased alertness. On since with minimal improvement PULMONARY Acute on chronic respiratory failure HCAP -Continue with oxygen keep sat >92% -HOB at 30 degrees -S/p #8 Johana percutaneous trach 06/13. (Dr. Morataya/Dr. Dai). Downsized to a # 6 Johana DFQING 08/05 -DuoNeb q6h and q2h prn. -Pulm toilet, trach care On T piece FiO2 28% CXR today showed clear lungs CARDIOVASCULAR History of Hypertension -Monitor HR and BP keep MAP>65mmHg GASTROENTEROLOGY Failure to thrive Gastroesophageal reflux disease Severe acute protein calorie malnutrition- severe Hypo-albuminemia Elevated transaminases -Continue with TF via PEG tube- Glucerna 1.5@55ml/hr -On Pepcid.for GI prophylaxis -PeriColace twice a day for bowel regimen - On Reglan for GI motility KUB 09/24 normal bowel gas pattern. RENAL//FEN: Acute kidney injury - resolved BPH Monitor renal function, I/O's, electrolytes replacement per protocol. Renal/abdominal ultrasound revealed no hydronephrosis. On Free water 200ml Q6 INFECTION DISEASE HCAP with Acinetobacter HCAP with PSAE UTI with Proteus and ESBL Klebsiella New fever, sepsis History of E. Cloacae UTI History of MRSA in sputum, colonized History of Klebsiella in sputum, colonized Funguria with history of tropicalis and glabrata Off abx per ID (Finished Unasyn, tobramycin course 09/24) Monitor for signs of infections ( fever, WBC) Noted Acinetobacter resistant. Sensitive to Unasyn and tobramycin only. Pertinent cultures 06/04 - urine - E. Cloacae 06/16 - sputum - Alla Tropicalis 06/27 blood - Staph Epi (1/2 bottles) 06/28 urine - alla glabrata 06/28 sputum - Klebsiella (intermediate to zosyn), MRSA 07/12 sputum - MRSA 07/18 sputum - MRSA, Klebsiella 07/21 sputum -MRSA, Klebsiella 07/21 blood -no growth for 2 days 07/21 urine -Alla glabrata 09/02 - blood cultures 2 -staph hominis 09/02: urine - Proteus, Klebsiella ESBL positive 09/03 -sputum-Pseudomonas 09/08 - sputum -Acinetobacter 09/08 - blood cultures 2 - no growth 09/08 - urine -C tropicalis 09/14 - sputum - no growth Influenza negative. HEMATOLOGY History of Normocytic anemia Leukocytosis Monitor CBC -Hemoccult stool was negative -Transfuse if hemoglobin below 7. ENDOCRINOLOGY: Hyperglycemia of critical illness Currently on Levemir 15 units twice a day. Medium dose Sliding Scale insulin with Accu-Cheks every 4 hours maintain euglycemia. SKIN Left heel blister Sacral decubitus ulcer stage I -Continue Multi-Podus boots, wound care following - Continue wrist splints alternating sides daily Betadine twice daily to open Wound care evaluate and treat Prophylaxis - GI - Pepcid - DVT - SCD/heparin Access piv Kvng Amin and son Winifred are decision-makers. defers to sons Winifred and Milan to make decision making together. Requests full code. This is been in place for the past several months.. Will sign off and transfer care to [facility] Level 3 Janusz Cardenas MD September 25, 2016 09:50
[2016-09-25] MEDS: HEPARIN SODIUM - SQ 10,000 UNITS/ML VIAL SQ SCH (11:35)
--- NOTE | 2016-09-25 14:43 | HHI.IDPN ---
Subjective Subjective Remarks reconsulted by Dr Ruiz 06/22 new fever over the we T max was 101 now more low grade A lot of secretions remains on Tpiece cont to have diarrhea Antibiotics none Lines no central lines Past Medical History Reviewed Allergies: Coded Allergies: *MDRO Multi-Drug Resistant Organism (Verified Adverse Reaction, Unknown, ) MRSA (sputum) - 06/28/16, 07/12/16, 07/21/16 MRSA PCR Screen POSITIVE - 09/03/2016 ESBL K. pneumoniae (urine) - 09/02/16 MDR-Acinetobacter (sputum)-09/08/16 Objective . Vital Signs Date Time Temp Pulse Resp B/P Pulse Ox O2 Delivery O2 Flow Rate FiO2 09/25/16 14:00 97 09/25/16 12:43 22 09/25/16 12:00 100.3 103 109/58 100 09/25/16 12:00 103 09/25/16 10:00 109 09/25/16 08:37 98 T-piece 6.00 25 09/25/16 08:00 100.4 106 23 127/59 100 09/25/16 08:00 106 09/25/16 07:00 98 T-Piece 28 09/25/16 06:00 120 09/25/16 04:00 120 09/25/16 04:00 100.1 119 22 142/68 100 09/25/16 02:00 120 09/25/16 00:00 113 09/25/16 00:00 99.8 113 24 115/58 100 09/24/16 22:00 102 09/24/16 20:42 98 T-piece 28 09/24/16 20:00 100.4 116 24 136/64 100 09/24/16 20:00 116 09/24/16 19:00 100 T-Piece 28 09/24/16 18:00 109 09/24/16 16:00 98.9 108 26 104/53 97 09/24/16 16:00 108 09/24/16 09/24/16 09/25/16 15:00 23:00 07:00 Intake Total 2299 ml 552 ml Output Total 1475 ml 650 ml Balance 824 ml -98 ml IV Total 911 ml 55 ml Tube Feeding 788 ml 247 ml Other 600 ml 250 ml Output Urine Total 575 ml 250 ml Stool Total 900 ml 400 ml . Laboratory Tests Test 09/25/16 05:32 White Blood Count 8.0 TH/MM3 Red Blood Count 3.20 MIL/MM3 Hemoglobin 9.2 GM/DL Hematocrit 27.2 % Mean Corpuscular Volume 85.2 FL Mean Corpuscular Hemoglobin 28.9 PG Mean Corpuscular Hemoglobin 33.9 % Concent Red Cell Distribution Width 19.3 % Platelet Count 257 TH/MM3 Mean Platelet Volume 6.7 FL Neutrophils (%) (Auto) 67.2 % Lymphocytes (%) (Auto) 20.2 % Monocytes (%) (Auto) 8.8 % Eosinophils (%) (Auto) 3.2 % Basophils (%) (Auto) 0.6 % Neutrophils # (Auto) 5.4 TH/MM3 Lymphocytes # (Auto) 1.6 TH/MM3 Monocytes # (Auto) 0.7 TH/MM3 Eosinophils # (Auto) 0.3 TH/MM3 Basophils # (Auto) 0.1 TH/MM3 CBC Comment AUTO DIFF Differential Total Cells 100 Counted Neutrophils % (Manual) 83 % Band Neutrophils % 1 % Lymphocytes % 9 % Monocytes % 5 % Eosinophils % 1 % Neutrophils # (Manual) 6.8 TH/MM3 Myelocytes 1 % Differential Comment FINAL DIFF MANUAL Platelet Estimate NORMAL Platelet Morphology Comment NORMAL Laboratory Tests Test 09/25/16 05:32 Sodium Level 141 MEQ/L Potassium Level 3.9 MEQ/L Chloride Level 103 MEQ/L Carbon Dioxide Level 27.0 MEQ/L Anion Gap 11 MEQ/L Blood Urea Nitrogen 22 MG/DL Creatinine 0.79 MG/DL Estimat Glomerular Filtration 94 ML/MIN Rate Random Glucose 161 MG/DL Lactic Acid Level 1.9 mmol/L Calcium Level 8.7 MG/DL Phosphorus Level 2.4 MG/DL Magnesium Level 2.2 MG/DL Total Bilirubin 0.4 MG/DL Aspartate Amino Transf 119 U/L (AST/SGOT) Alanine Aminotransferase 27 U/L (ALT/SGPT) Alkaline Phosphatase 91 U/L Total Protein 7.5 GM/DL Albumin 2.5 GM/DL Lipase 220 U/L Microbiology Date/Time Procedure Status Source Growth 09/24/16 04:04 Aerobic Blood Culture - Preliminary Resulted Blood Peripheral NO GROWTH IN 1 DAY 09/24/16 04:04 Anaerobic Blood Culture - Preliminary Resulted Blood Peripheral NO GROWTH IN 1 DAY 09/24/16 05:15 Cancelled Sputum Endotracheal 09/24/16 05:15 Gram Stain - Final Resulted Sputum Endotracheal 09/24/16 05:15 Sputum Culture Resulted Sputum Endotracheal Pending 09/24/16 05:15 Urine Culture - Preliminary Resulted Urine Catheterized Urine Yeast Species Imaging Last Impressions Chest X-Ray 09/25/16 0600 Signed Impressions: Service Date/Time: Sunday, September 25, 2016 05:00 - CONCLUSION: Clear lungs. Henri Shirley Jr., MD Abdomen X-Ray 09/24/16 0000 Signed Impressions: Service Date/Time: Saturday, September 24, 2016 05:27 - CONCLUSION: Adequate placement of PEG tube. Justyn Bourgeois MD Upper Extremity Ultrasound 09/07/16 0000 Signed Impressions: Service Date/Time: August 09:28 - CONCLUSION: Cephalic vein thrombosis. Acosta Da Silva MD Abdomen Ultrasound 09/03/16 0000 Signed Impressions: Service Date/Time: Saturday, September 03, 2016 15:21 - CONCLUSION: 1. No acute findings. Exam somewhat limited by overlying bowel gas. Mina Varghese MD Physical Exam CONSTITUTIONAL/GENERAL: Not responding, on vent SKIN: No jaundice, rashes, or lesions. Warm and dry HEAD: Atraumatic. Normocephalic. EYES: Pupils equal and round and reactive. No scleral icterus. No injection or drainage. NECK: Trachea midline. Supple, nontender. Trach collar in place , site [place] CARDIOVASCULAR: Regular rate and rhythm without murmurs, gallops, or rubs. RESPIRATORY/CHEST: diffuse b/l rhonchi to auscultation. GASTROINTESTINAL: Abdomen soft, no reaction to palpation. mildly istended. Bowel sounds present. Dignishield in place with liquid brown stool GENITOURINARY: Without palpable bladder distension. Lennon catheter in place with clear yellow urine MUSCULOSKELETAL: Extremities without clubbing, cyanosis, + 2 edema. No joint effusion noted. No mottling. contracted pt NEUROLOGICAL: Not responding - at baseline PSYCHIATRIC: unable to assess LINE no evidence of infection Assessment & Plan Remarks UTI, ESBL Kleb pneumo in clx PSAE PNA, vs tracheobronchitis MDRO Acietobacter in sputum R to meropenem - fu clx Fevers - ? source ? VAP vs new UTI ve other infx or drug fever Respiratory failure, has chronic trach - currently on T-piece, but breathing looks laboured or unusual Advanced Dementia Diarrhea, ho recent abx use; C.diff negative PLAN fu blood clx change lennon; repeat urine clx with new lennon repeat sputum clx chk C.diff Elle Cardenas MD September 25, 2016 14:43
[2016-09-25 18:16] LABS: BACTERIA, URINE OCC /hpf; BLOOD, URINE SMALL (NEG); GLUCOSE,URINE NEG (NEG); HYALINE CAST, URINE 4 /lpf (RARE); KETONE, URINE NEG (NEG); MUCUS URINE FEW /lpf (OCC); NITRITE,URINE NEG (NEG); PH, URINE 6.5 (5.0-8.5); SQUAMOUS EPITHELIAL CELL URINE 4 /hpf (0-5); URINE COLOR YELLOW (YELLW/STRAW)
[2016-09-25 18:19] LABS: COMMENT (UR) CATH-CULTURE IND; CULTURE IF INDICATED CATH CULTURE IND
[2016-09-25 20:07] LABS: C. DIFF EPI 027 PRESUMPTIVE NEGATIVE (NEGATIVE); C. DIFF TOXIN PCR NEGATIVE (NEGATIVE)
[2016-09-26] VITALS (15 sets, daily range): BP systolic 101–132; BP diastolic 51–60; PULSE 104–115; RESP 18–24; TEMP 99.1–100.2; O2SAT 97–100
[2016-09-26] MEDS: INSULIN NovoLIN REGULAR SUPPLEMENTAL SCALE SQ SCH ×6 (04:00→23:59)
[2016-09-26] MEDS: CHLORHEXIDINE GLUCONATE 2 % 1 PACK (2 CLOTHS) TOP SCH (04:30)
[2016-09-26] MEDS: FREE WATER G-TUBE SCH ×5 (04:32→23:22)
[2016-09-26] MEDS: ACETAMINOPHEN 325 MG TAB PO PRN (04:33)
[2016-09-26] MEDS: METOCLOPRAMIDE HCL 10 MG/2 ML VIAL IV PUSH SCH ×3 (04:33→23:22)
[2016-09-26] MEDS: RESP: ALBUTEROL 2.5 MG/IPRATROPIUM 0.5 MG NEB (SCH) NEB ×3 (04:36→15:48)
[2016-09-26 06:01] LABS: AUTOMATED NEUTROPHIL # 4.5 TH/MM3 (1.8-7.7); BASOPHIL # 0.1 TH/MM3 (0-0.2); BASOPHIL % 0.7 % (0.0-2.0); EOSINOPHIL # 0.3 TH/MM3 (0-0.4); EOSINOPHIL % 4.2 % (0.0-4.0); HEMATOCRIT 27.4 % (39.0-51.0); LYMPH % 31.3 % (9.0-44.0); LYMPHOCYTE # 2.5 TH/MM3 (1.0-4.8); MEAN CELL VOLUME 85.6 FL (80.0-100.0); MEAN CORPUSCULAR HEMOGLOBIN 29.9 PG (27.0-34.0); MEAN CORPUSCULAR HGB CONC 34.9 % (32.0-36.0); MONO % 6.5 % (0.0-8.0); NEUT % 57.3 % (16.0-70.0); PLATELET COUNT 272 TH/MM3 (150-450); RED CELL DISTRIBUTION WIDTH 19.2 % (11.6-17.2); WHITE BLOOD COUNT 7.9 TH/MM3 (4.0-11.0)
[2016-09-26 06:12] LABS: HEMO FLAGS AUTO DIFF
[2016-09-26 06:31] LABS: BICARBONATE 27.4 MEQ/L (21.0-32.0); POTASSIUM 4.2 MEQ/L (3.5-5.1)
--- NOTE | 2016-09-26 06:58 | RADRPT ---
EXAM DATE/TIME: 09/26/2016 06:09 [facility] COMPARISON: CHEST SINGLE AP, September 25, 2016, 5:00. INDICATIONS : Shortness of breath. MEDICAL HISTORY : None. SURGICAL HISTORY : None. ENCOUNTER: Subsequent ACUITY: 4 - 6 days PAIN SCORE: 0/10 LOCATION: Bilateral chest FINDINGS: A single portable frontal view the chest is oblique towards the patient's right. Tracheostomy tube no mary. Lungs clear. The right is somewhat limited in evaluation due to the obliquity. Heart is normal i n size. No effusions. Elevation of the right hemidiaphragm. CONCLUSION: Limited study due to the obliquity. Clear lungs. Henri Shirley Jr., MD on September 26, 2016 at 6:56 Board Certified Radiologist. This report was verified electronically.
[2016-09-26] MEDS: SENNOSIDES SYRUP 8.8 MG/5 ML CUP PO SCH (08:34)
[2016-09-26] MEDS: DOCUSATE SODIUM 100 MG/10 ML UDC PO SCH ×2 (08:34→23:20)
[2016-09-26] MEDS: SODIUM CHLORIDE 0.9% FLUSH 10 ML FLUSH IV FLUSH SCH ×2 (08:35→21:00)
[2016-09-26] MEDS: FAMOTIDINE 20 MG TAB NG SCH (08:35)
[2016-09-26] MEDS: MODAFINIL 200 MG TAB PO SCH (08:35)
[2016-09-26] MEDS: INSULIN DETEMIR 100 UNITS/ML VIAL SQ SCH ×2 (08:36→21:00)
[2016-09-26] MEDS: CHLORHEXIDINE 0.12% (ORAL KIT) 15 ML CUP MT SCH ×2 (08:37→20:00)
[2016-09-26] MEDS: JUVEN POWDER 1 PACK G-TUBE SCH ×2 (08:38→21:00)
[2016-09-26] MEDS: POVIDONE IODINE 10% SOLN 480 ML BTL TOPICAL SCH ×2 (08:38→21:00)
[2016-09-26] MEDS: NYSTATIN 100,000 U/GM PWD 15 GM BTL TOPICAL SCH ×2 (08:38→23:22)
[2016-09-26 09:00] LABS: BANDS 3 % (0-6); EOSINOPHILS 4 % (0-4); NEUTROPHIL # MANUAL DIFF 4.2 TH/MM3 (1.8-7.7); POLYS (SEG NEUTROPHILS) 50 % (16-70); WBC DIFF SAMPLE 100
[2016-09-26 09:02] LABS: SCAN/DIFF FINAL DIFF MANUAL
[2016-09-26] MEDS: HEPARIN SODIUM - SQ 10,000 UNITS/ML VIAL SQ SCH ×2 (13:15)
--- NOTE | 2016-09-26 16:34 | HHI.IDPN ---
Subjective Subjective Remarks doing OK clx results noted No fever Tons of secretions, but no infiltrate on CXR + diarrhea Antibiotics none Lines no central lines Past Medical History Reviewed Allergies: Coded Allergies: *MDRO Multi-Drug Resistant Organism (Verified Adverse Reaction, Unknown, ) MRSA (sputum) - 06/28/16, 07/12/16, 07/21/16 MRSA PCR Screen POSITIVE - 09/03/2016 ESBL K. pneumoniae (urine) - 09/02/16 MDR-Acinetobacter (sputum)-09/08/16 Objective . Vital Signs Date Time Temp Pulse Resp B/P Pulse Ox O2 Delivery O2 Flow Rate FiO2 09/26/16 15:00 109 09/26/16 14:00 107 09/26/16 13:00 107 09/26/16 12:00 107 09/26/16 12:00 99.4 107 24 114/57 98 09/26/16 12:00 99.4 105 22 104/56 98 09/26/16 11:00 105 09/26/16 10:17 109 09/26/16 10:00 104 09/26/16 10:00 104 09/26/16 09:19 100 T-piece 28 09/26/16 09:00 105 09/26/16 08:00 105 09/26/16 08:00 105 09/26/16 08:00 99.1 105 22 104/56 98 09/26/16 07:00 98 T-Piece 28 09/26/16 02:00 115 09/26/16 00:00 112 09/26/16 00:00 99.2 112 101/51 97 09/25/16 23:02 94 T-piece 6.00 28 09/25/16 22:00 101 09/25/16 20:00 99.2 98 110/56 97 09/25/16 20:00 98 09/25/16 19:00 T-Piece 6.00 25 09/25/16 18:00 98 09/25/16 09/25/16 09/26/16 15:00 23:00 07:00 Intake Total 1012 ml 640 ml Output Total 1050 ml 400 ml Balance -38 ml 240 ml IV Total 308 ml Tube Feeding 504 ml 440 ml Other 200 ml 200 ml Output Urine Total 850 ml 400 ml Stool Total 200 ml # Voids 0 . Laboratory Tests Test 09/25/16 09/26/16 05:32 04:55 White Blood Count 8.0 TH/MM3 7.9 TH/MM3 Red Blood Count 3.20 MIL/MM3 3.20 MIL/MM3 Hemoglobin 9.2 GM/DL 9.6 GM/DL Hematocrit 27.2 % 27.4 % Mean Corpuscular Volume 85.2 FL 85.6 FL Mean Corpuscular Hemoglobin 28.9 PG 29.9 PG Mean Corpuscular Hemoglobin 33.9 % 34.9 % Concent Red Cell Distribution Width 19.3 % 19.2 % Platelet Count 257 TH/MM3 272 TH/MM3 Mean Platelet Volume 6.7 FL 7.4 FL Neutrophils (%) (Auto) 67.2 % 57.3 % Lymphocytes (%) (Auto) 20.2 % 31.3 % Monocytes (%) (Auto) 8.8 % 6.5 % Eosinophils (%) (Auto) 3.2 % 4.2 % Basophils (%) (Auto) 0.6 % 0.7 % Neutrophils # (Auto) 5.4 TH/MM3 4.5 TH/MM3 Lymphocytes # (Auto) 1.6 TH/MM3 2.5 TH/MM3 Monocytes # (Auto) 0.7 TH/MM3 0.5 TH/MM3 Eosinophils # (Auto) 0.3 TH/MM3 0.3 TH/MM3 Basophils # (Auto) 0.1 TH/MM3 0.1 TH/MM3 CBC Comment AUTO DIFF AUTO DIFF Differential Total Cells 100 100 Counted Neutrophils % (Manual) 83 % 50 % Band Neutrophils % 1 % 3 % Lymphocytes % 9 % 41 % Monocytes % 5 % 2 % Eosinophils % 1 % 4 % Neutrophils # (Manual) 6.8 TH/MM3 4.2 TH/MM3 Myelocytes 1 % Differential Comment FINAL DIFF FINAL DIFF MANUAL MANUAL Platelet Estimate NORMAL Platelet Morphology Comment NORMAL Laboratory Tests Test 09/25/16 09/26/16 09/26/16 05:32 04:55 09:30 Sodium Level 141 MEQ/L 142 MEQ/L Potassium Level 3.9 MEQ/L 4.2 MEQ/L Chloride Level 103 MEQ/L 105 MEQ/L Carbon Dioxide Level 27.0 MEQ/L 27.4 MEQ/L Anion Gap 11 MEQ/L 10 MEQ/L Blood Urea Nitrogen 22 MG/DL 25 MG/DL Creatinine 0.79 MG/DL 0.72 MG/DL Estimat Glomerular Filtration 94 ML/MIN 104 ML/MIN Rate Random Glucose 161 MG/DL 163 MG/DL Lactic Acid Level 1.9 mmol/L Calcium Level 8.7 MG/DL 9.5 MG/DL Phosphorus Level 2.4 MG/DL 3.4 MG/DL Magnesium Level 2.2 MG/DL Total Bilirubin 0.4 MG/DL Aspartate Amino Transf 119 U/L (AST/SGOT) Alanine Aminotransferase 27 U/L (ALT/SGPT) Alkaline Phosphatase 91 U/L Total Protein 7.5 GM/DL Albumin 2.5 GM/DL Lipase 220 U/L Microbiology Date/Time Procedure Status Source Growth 09/24/16 04:04 Aerobic Blood Culture - Preliminary Resulted Blood Peripheral NO GROWTH IN 2 DAYS 09/24/16 04:04 Anaerobic Blood Culture - Preliminary Resulted Blood Peripheral NO GROWTH IN 2 DAYS 09/24/16 05:15 Cancelled Sputum Endotracheal 09/24/16 05:15 Gram Stain - Final Complete Sputum Endotracheal 09/24/16 05:15 Sputum Culture - Final Complete Klebsiella Pneumoniae Esbl Pos Proteus Mirabilis 09/24/16 05:15 Urine Culture - Final Complete Urine Catheterized Urine Prachi Tropicalis 09/25/16 16:00 Urine Culture - Preliminary Resulted Urine Catheterized Urine Gram Negative Wesley Prachi Tropicalis Imaging Last Impressions Chest X-Ray 09/26/16 0600 Signed Impressions: Service Date/Time: Monday, September 26, 2016 06:09 - CONCLUSION: Limited study due to the obliquity. Clear lungs. Henri Shirley Jr., MD Abdomen X-Ray 09/24/16 0000 Signed Impressions: Service Date/Time: Saturday, September 24, 2016 05:27 - CONCLUSION: Adequate placement of PEG tube. Justyn Bourgeois MD Upper Extremity Ultrasound 09/07/16 0000 Signed Impressions: Service Date/Time: August 09:28 - CONCLUSION: Cephalic vein thrombosis. K. Marquis Da Silva MD Abdomen Ultrasound 09/03/16 0000 Signed Impressions: Service Date/Time: Saturday, September 03, 2016 15:21 - CONCLUSION: 1. No acute findings. Exam somewhat limited by overlying bowel gas. Mina Varghese MD Physical Exam CONSTITUTIONAL/GENERAL: Opens eyes to touch, on Tpiece SKIN: No jaundice, rashes, or lesions. Warm and dry HEAD: Atraumatic. Normocephalic. EYES: Pupils equal and round and reactive. No scleral icterus. No injection or drainage. NECK: Trachea midline. Supple, nontender. Trach collar in place , site [place] CARDIOVASCULAR: Regular rate and rhythm without murmurs, gallops, or rubs. RESPIRATORY/CHEST: fairly clear today to auscultation. GASTROINTESTINAL: Abdomen soft, no reaction to palpation. mildly distended. Bowel sounds present. Dignishield in place with liquid brown stool GENITOURINARY: Without palpable bladder distension. Mckeon catheter in place with clear yellow urine MUSCULOSKELETAL: Extremities without clubbing, cyanosis, trace edema. No joint effusion noted. No mottling. contracted pt NEUROLOGICAL: Minimallyresponding - at baseline PSYCHIATRIC: unable to assess LINE no evidence of infection Assessment & Plan Remarks Bacteriia/funguria PSAE PNA, vs tracheobronchitis Persistently colonised with MDROs, including KLEBSIELLA PNEUMONIAE ESBL POS as well as PROTEUS MIRABILIS - previously MDRO Acietobacter in sputum Fevers - intermittent - no fever in last 24 - ? source ? VAP vs new UTI ve other infx or drug fever Respiratory failure, has chronic trach - currently on T-piece, but breathing looks laboured or unusual Advanced Dementia Diarrhea, ho recent abx use; C.diff negative PLAN fu all P clx follow off abx for now as long as staying withstable afebrile vss Elle Winters RN, MD September 26, 2016 16:34
[2016-09-27] VITALS (12 sets, daily range): BP systolic 100–135; BP diastolic 50–77; PULSE 105–116; RESP 20–32; TEMP 99–99.9; O2SAT 97–100
[2016-09-27] MEDS: CHLORHEXIDINE GLUCONATE 2 % 1 PACK (2 CLOTHS) TOP SCH (04:00)
[2016-09-27] MEDS: RESP: ALBUTEROL 2.5 MG/IPRATROPIUM 0.5 MG NEB (SCH) NEB ×4 (04:18→21:43)
[2016-09-27] MEDS: ACETAMINOPHEN 325 MG TAB PO PRN ×2 (05:03)
[2016-09-27] MEDS: INSULIN NovoLIN REGULAR SUPPLEMENTAL SCALE SQ SCH ×7 (05:07→23:40)
[2016-09-27] MEDS: FREE WATER G-TUBE SCH ×4 (06:00→23:42)
[2016-09-27] MEDS: METOCLOPRAMIDE HCL 10 MG/2 ML VIAL IV PUSH SCH ×3 (06:02→23:35)
[2016-09-27] MEDS: CHLORHEXIDINE 0.12% (ORAL KIT) 15 ML CUP MT SCH ×2 (08:00→20:00)
[2016-09-27] MEDS: SENNOSIDES SYRUP 8.8 MG/5 ML CUP PO SCH (08:40)
[2016-09-27] MEDS: DOCUSATE SODIUM 100 MG/10 ML UDC PO SCH ×2 (08:40→20:11)
[2016-09-27] MEDS: MODAFINIL 200 MG TAB PO SCH (08:41)
[2016-09-27] MEDS: FAMOTIDINE 20 MG TAB NG SCH (08:41)
[2016-09-27] MEDS: INSULIN DETEMIR 100 UNITS/ML VIAL SQ SCH ×2 (08:45→20:27)
[2016-09-27] MEDS: NYSTATIN 100,000 U/GM PWD 15 GM BTL TOPICAL SCH ×2 (08:46→20:13)
[2016-09-27] MEDS: HEPARIN SODIUM - SQ 10,000 UNITS/ML VIAL SQ SCH ×3 (12:14→23:35)
--- NOTE | 2016-09-27 13:20 | HHI.PR ---
Addendum to Inpatient Note Additional Information chart reviewed data, progress noted Having a febrile episode again last night will start Ertapenem, fluconzol (po) will fu last urine clx Elle Cardenas MD September 27, 2016 13:20
[2016-09-27] MEDS: JUVEN POWDER 1 PACK G-TUBE SCH ×2 (13:24→20:19)
[2016-09-27] MEDS ORDERED: ASP: Documented ESBL, MDR A baumannii or P. aeruginosa PRN (13:30)
[2016-09-27] MEDS ORDERED: MISCELLANEOUS PHARMACY INFORMATION XX PRN (13:30)
[2016-09-27] MEDS: SODIUM CHLORIDE 0.9% FLUSH 10 ML FLUSH IV FLUSH SCH ×2 (13:39→20:11)
[2016-09-27] MEDS: FLUCONAZOLE 200 MG TAB PO SCH (15:19)
[2016-09-27] MEDS: ERTAPENEM INJ 1,000 MG in SODIUM CHLORIDE 0.9% INJ 100 ML IV SCH (15:35)
[2016-09-27] MEDS: POVIDONE IODINE 10% SOLN 480 ML BTL TOPICAL SCH ×2 (15:37→20:13)
[2016-09-28] VITALS (11 sets, daily range): BP systolic 94–134; BP diastolic 52–69; PULSE 89–122; RESP 18–21; TEMP 97.5–99.1; O2SAT 96–100
--- NOTE | 2016-09-28 01:49 | HHI.PR ---
Subjective Remarks Late entry for 09/26/2016 Follow-up for Alzheimer's dementia, acute on chronic respiratory failure. Had low-grade fever. Remains on T-piece. Objective Vitals Vital Signs Date Time Temp Pulse Resp B/P Pulse Ox O2 Delivery O2 Flow Rate FiO2 09/27/16 22:10 98 T-Piece 28 09/27/16 21:43 97 T-piece 28 09/27/16 16:51 99.8 110 20 100/50 97 09/27/16 15:21 99.8 110 20 100/50 97 09/27/16 12:57 99.4 108 20 126/77 97 09/27/16 10:00 105 09/27/16 09:30 98 T-piece 6.00 28 09/27/16 09:30 98 T-piece 6.00 28 09/27/16 08:47 99.0 111 20 117/56 09/27/16 08:40 99 T-Piece 28 09/27/16 04:23 99 T-piece 28 09/27/16 04:00 99.9 116 20 126/67 99 I/O 09/27/16 09/27/16 09/27/16 09/28/16 09/28/16 09/28/16 07:00 15:00 23:00 07:00 15:00 23:00 Output Total 400 ml Balance -400 ml Output Urine Total 400 ml Result Diagram: 09/26/16 0455 09/26/16 0455 Imaging Last Impressions Chest X-Ray 09/26/16 0600 Signed Impressions: Service Date/Time: Monday, September 26, 2016 06:09 - CONCLUSION: Limited study due to the obliquity. Clear lungs. Henri Shirley Jr., MD Abdomen X-Ray 09/24/16 0000 Signed Impressions: Service Date/Time: Saturday, September 24, 2016 05:27 - CONCLUSION: Adequate placement of PEG tube. Justyn Bourgeois MD Upper Extremity Ultrasound 09/07/16 0000 Signed Impressions: Service Date/Time: August 09:28 - CONCLUSION: Cephalic vein thrombosis. Acosta Da Silva MD Abdomen Ultrasound 09/03/16 0000 Signed Impressions: Service Date/Time: Saturday, September 03, 2016 15:21 - CONCLUSION: 1. No acute findings. Exam somewhat limited by overlying bowel gas. Mina Varghese MD Objective Remarks GENERAL: Resting in bed, no meaningful communications. No acute distress. SKIN: Warm and dry. HEAD: Normocephalic. EYES: No scleral icterus. No injection or drainage. NECK: Supple, trachea midline. No JVD or lymphadenopathy. CARDIOVASCULAR: Regular rate and rhythm without murmurs, gallops, or rubs. RESPIRATORY: Breath sounds equal bilaterally. No accessory muscle use. GASTROINTESTINAL: Abdomen soft, non-tender, nondistended. MUSCULOSKELETAL: No cyanosis. Trace edema in bilateral lower ext. BACK: Nontender without obvious deformity. No CVA tenderness. Procedures None. A/P Assessment and Plan Mr. Amin is an 81 year old male with end stage Alzheimer's dementia, chronic respiratory failure who was brought to the hospital on 09/02/2016 due to hyperglycemia. However, on evaluation in the ER, he was found to be tachycardic , diaphoretic. He had a serum Na 160, glucose of 600, Cr 3 (baseline around 1), lactate of 3.0, wbc 17. He was febrile as well. Patient remained in the ICU until 09/25/2016 and during his ICU stay, electrolytes were corrected. Urine cx was positive for ESBL Klebsiella. ID was consulted. Patient was started on Ertapenem by ID. - Acute on Chronic respiratory failure - Continue with oxygen keep sat >92% - s/p #8 Shiley percutaneous trach 06/13. (Dr. Morataya/Dr. Dai). Downsized to a # 6 Shiley DFEN 08/05 - DuoNeb q6h and q2h prn, pulm toilet, trach care. Currently on T piece FIO2 28%. - UTI with ESBL organism - Patient was on Ertapenem. ID recommended watching without any abx. - If patient remains afebrile 24-48 hours, we may be able to discharge him. - Alzheimer's dementia - Acetaminophen for fever/Dilaudid as needed for pain management. - Modafinil 400mg PO Qday - no significant improvement on this medication - Will consider discontinuing Modafinil. - Diabetes mellitus - Continue Levemir 15 units Q12hrs and sliding scale insulin. - Nutrition, GERD - Continue Famotidine 20mg Qday - Continue tube feed. Full code. Heparin 5000 units Q12hrs. Sharda Howe DO September 28, 2016 1:49 am
--- NOTE | 2016-09-28 01:50 | HHI.PR ---
Subjective Remarks Late entry for 09/27/2016 Follow up for UTI with ESBL organism, chronic respiratory failure, end stage Alzheimer's dementia. Patient remains aphasic, no meaningful alertness. Objective Vitals Vital Signs Date Time Temp Pulse Resp B/P Pulse Ox O2 Delivery O2 Flow Rate FiO2 09/27/16 22:10 98 T-Piece 28 09/27/16 21:43 97 T-piece 28 09/27/16 16:51 99.8 110 20 100/50 97 09/27/16 15:21 99.8 110 20 100/50 97 09/27/16 12:57 99.4 108 20 126/77 97 09/27/16 10:00 105 09/27/16 09:30 98 T-piece 6.00 28 09/27/16 09:30 98 T-piece 6.00 28 09/27/16 08:47 99.0 111 20 117/56 09/27/16 08:40 99 T-Piece 28 09/27/16 04:23 99 T-piece 28 09/27/16 04:00 99.9 116 20 126/67 99 I/O 09/27/16 09/27/16 09/27/16 09/28/16 09/28/16 09/28/16 07:00 15:00 23:00 07:00 15:00 23:00 Output Total 400 ml Balance -400 ml Output Urine Total 400 ml Result Diagram: 09/26/16 0455 09/26/16 0455 Imaging Last Impressions Chest X-Ray 09/26/16 0600 Signed Impressions: Service Date/Time: Monday, September 26, 2016 06:09 - CONCLUSION: Limited study due to the obliquity. Clear lungs. Henri Shirley Jr., MD Abdomen X-Ray 09/24/16 0000 Signed Impressions: Service Date/Time: Saturday, September 24, 2016 05:27 - CONCLUSION: Adequate placement of PEG tube. Justyn oBurgeois MD Upper Extremity Ultrasound 09/07/16 0000 Signed Impressions: Service Date/Time: August 09:28 - CONCLUSION: Cephalic vein thrombosis. KRory Da Silva MD Abdomen Ultrasound 09/03/16 0000 Signed Impressions: Service Date/Time: Saturday, September 03, 2016 15:21 - CONCLUSION: 1. No acute findings. Exam somewhat limited by overlying bowel gas. Mina Varghese MD Objective Remarks GENERAL: Resting in bed, NAD. SKIN: Warm and dry. HEAD: Normocephalic. EYES: No scleral icterus. No injection or drainage. NECK: Supple, trachea midline. No JVD or lymphadenopathy. CARDIOVASCULAR: Regular rate and rhythm without murmurs, gallops, or rubs. RESPIRATORY: Breath sounds equal bilaterally. No accessory muscle use. GASTROINTESTINAL: Abdomen soft, non-tender, nondistended. MUSCULOSKELETAL: No cyanosis, or edema. BACK: Nontender without obvious deformity. Procedures None. A/P Assessment and Plan Mr. Amin is an 81 year old male with end stage Alzheimer's dementia, chronic respiratory failure who was brought to the hospital on 09/02/2016 due to hyperglycemia. However, on evaluation in the ER, he was found to be tachycardic , diaphoretic. He had a serum Na 160, glucose of 600, Cr 3 (baseline around 1), lactate of 3.0, wbc 17. He was febrile as well. Patient remained in the ICU until 09/25/2016 and during his ICU stay, electrolytes were corrected. Urine cx was positive for ESBL Klebsiella. ID was consulted. Patient was started on Ertapenem by ID. - Acute on Chronic respiratory failure - Continue with oxygen keep sat >92% - s/p #8 Shiley percutaneous trach 06/13. (Dr. Morataya/Dr. Dai). Downsized to a # 6 Johana DFEN 08/05 - DuoNeb q6h and q2h prn, pulm toilet, trach care. Currently on T piece FIO2 28%. - UTI with ESBL organism - Patient was on Ertapenem. ID recommended watching without any abx. - Due to fever, ID re-started on Ertapenem and Diflucan on 09/27/2016. - Alzheimer's dementia - Acetaminophen for fever/Dilaudid as needed for pain management. - Modafinil 400mg PO Qday - no significant improvement on this medication - Will consider discontinuing Modafinil. - Diabetes mellitus - Continue Levemir 15 units Q12hrs and sliding scale insulin. - Nutrition, GERD - Continue Famotidine 20mg Qday - Continue tube feed. Full code. Heparin 5000 units Q12hrs. Sharda Howe DO September 28, 2016 1:50 am
[2016-09-28] MEDS: CHLORHEXIDINE GLUCONATE 2 % 1 PACK (2 CLOTHS) TOP SCH (04:00)
[2016-09-28] MEDS: INSULIN NovoLIN REGULAR SUPPLEMENTAL SCALE SQ SCH ×6 (04:39→22:58)
[2016-09-28] MEDS: METOCLOPRAMIDE HCL 10 MG/2 ML VIAL IV PUSH SCH ×3 (04:43→22:50)
[2016-09-28] MEDS: FREE WATER G-TUBE SCH ×4 (04:44→22:57)
[2016-09-28] MEDS: RESP: ALBUTEROL 2.5 MG/IPRATROPIUM 0.5 MG NEB (SCH) NEB ×2 (05:41→08:27)
[2016-09-28] MEDS: CHLORHEXIDINE 0.12% (ORAL KIT) 15 ML CUP MT SCH ×2 (08:00→20:00)
[2016-09-28] MEDS: JUVEN POWDER 1 PACK G-TUBE SCH ×2 (08:20→21:00)
[2016-09-28] MEDS: DOCUSATE SODIUM 100 MG/10 ML UDC PO SCH ×2 (08:20→22:50)
[2016-09-28] MEDS: SODIUM CHLORIDE 0.9% FLUSH 10 ML FLUSH IV FLUSH SCH ×2 (08:20→21:00)
[2016-09-28] MEDS: FAMOTIDINE 20 MG TAB NG SCH (08:20)
[2016-09-28] MEDS: SENNOSIDES SYRUP 8.8 MG/5 ML CUP PO SCH (08:20)
[2016-09-28] MEDS: MODAFINIL 200 MG TAB PO SCH (08:20)
[2016-09-28] MEDS: NYSTATIN 100,000 U/GM PWD 15 GM BTL TOPICAL SCH ×2 (08:20→21:00)
[2016-09-28] MEDS: INSULIN DETEMIR 100 UNITS/ML VIAL SQ SCH ×2 (08:20→21:00)
[2016-09-28] MEDS: HEPARIN SODIUM - SQ 10,000 UNITS/ML VIAL SQ SCH ×2 (13:07→22:57)
[2016-09-28] MEDS: FLUCONAZOLE 200 MG TAB PO SCH (14:16)
[2016-09-28] MEDS: ERTAPENEM INJ 1,000 MG in SODIUM CHLORIDE 0.9% INJ 100 ML IV SCH (15:55)
[2016-09-28] MEDS: ACETAMINOPHEN 325 MG TAB PO PRN ×2 (15:56→22:59)
--- NOTE | 2016-09-28 17:20 | HHI.IDPN ---
Subjective Subjective Remarks doing OK No fever Cont to have a lot of of secretions, but no infiltrate on CXR cont to have persistent diarrhea Antibiotics ertapenem fluc Lines no central lines Past Medical History Reviewed Allergies: Coded Allergies: *MDRO Multi-Drug Resistant Organism (Verified Adverse Reaction, Unknown, ) MRSA (sputum) - 06/28/16, 07/12/16, 07/21/16 MRSA PCR Screen POSITIVE - 09/03/2016 ESBL K. pneumoniae (urine) - 09/02/16 & (sputum)-09/24/16 MDR-Acinetobacter (sputum)-09/08/16 Objective . Vital Signs Date Time Temp Pulse Resp B/P Pulse Ox O2 Delivery O2 Flow Rate FiO2 09/28/16 16:22 99.0 112 20 127/69 100 09/28/16 12:04 99.1 122 20 114/69 96 09/28/16 08:27 99 T-piece 28.00 09/28/16 07:44 97.5 112 20 134/66 100 09/28/16 05:41 99 T-piece 6.00 28 09/28/16 04:00 98.8 120 18 102/60 97 09/28/16 00:00 98.9 110 20 94/52 99 09/27/16 23:00 111 09/27/16 22:10 98 T-Piece 28 09/27/16 21:43 97 T-piece 28 09/27/16 20:00 99.1 115 32 108/57 97 09/27/16 09/27/16 09/28/16 15:00 23:00 07:00 Output Total 550 ml 250 ml Balance -550 ml -250 ml Output Urine Total 550 ml 250 ml Imaging L Last Impressions Chest X-Ray 09/26/16 0600 Signed Impressions: Service Date/Time: Monday, September 26, 2016 06:09 - CONCLUSION: Limited study due to the obliquity. Clear lungs. Henri Shirley Jr., MD Abdomen X-Ray 09/24/16 0000 Signed Impressions: Service Date/Time: Saturday, September 24, 2016 05:27 - CONCLUSION: Adequate placement of PEG tube. Justyn Bourgeois MD Upper Extremity Ultrasound 09/07/16 0000 Signed Impressions: Service Date/Time: August 09:28 - CONCLUSION: Cephalic vein thrombosis. Acosta Da Silva MD Abdomen Ultrasound 09/03/16 0000 Signed Impressions: Service Date/Time: Saturday, September 03, 2016 15:21 - CONCLUSION: 1. No acute findings. Exam somewhat limited by overlying bowel gas. Mina Varghese MD Physical Exam CONSTITUTIONAL/GENERAL: Opens eyes to touch, on Tpiece SKIN: No jaundice, rashes, or lesions. Warm and dry EYES: No scleral icterus. No injection or drainage. NECK: Trachea midline. Supple, nontender. Trach collar in place , site [place] CARDIOVASCULAR: Regular rate and rhythm without murmurs, gallops, or rubs. RESPIRATORY/CHEST: fairly clear today to auscultation. GASTROINTESTINAL: Abdomen soft, no reaction to palpation. mildly distended. Bowel sounds present. Dignishield in place with liquid brown stool GENITOURINARY: Without palpable bladder distension. Mckeon catheter in place with clear yellow urine MUSCULOSKELETAL: Extremities without clubbing, cyanosis, trace edema. No joint effusion noted. No mottling. contracted pt NEUROLOGICAL: Minimally responding - at baseline PSYCHIATRIC: unable to assess LINE no evidence of infection Assessment & Plan Remarks Bacteriia/funguria PSAE PNA, vs tracheobronchitis Persistently colonised with MDROs, including KLEBSIELLA PNEUMONIAE ESBL POS as well as PROTEUS MIRABILIS - previously MDRO Acietobacter in sputum Fevers - intermittent - no fever in last 24 - ? source ? VAP vs new UTI ve other infx or drug fever Respiratory failure, has chronic trach - currently on T-piece, but breathing looks laboured or unusual Advanced Dementia Diarrhea, ho recent abx use; C.diff negative PLAN cont Ertapnem x 1 week cont diflucan x 1 wk dw Elle Rubio MD September 28, 2016 17:20
[2016-09-28] MEDS: POVIDONE IODINE 10% SOLN 480 ML BTL TOPICAL SCH (21:00)
--- NOTE | 2016-09-28 23:33 | HHI.PR ---
Subjective Remarks Follow up for UTI with ESBL organism, chronic respiratory failure, end stage Alzheimer's dementia. Patient is aphasis, does not participate in care. Objective Vitals Vital Signs Date Time Temp Pulse Resp B/P Pulse Ox O2 Delivery O2 Flow Rate FiO2 09/28/16 16:22 99.0 112 20 127/69 100 09/28/16 12:04 99.1 122 20 114/69 96 09/28/16 08:27 99 T-piece 28.00 09/28/16 08:20 100 T-Piece 28 09/28/16 08:00 109 09/28/16 07:44 97.5 112 20 134/66 100 09/28/16 05:41 99 T-piece 6.00 28 09/28/16 04:00 98.8 120 18 102/60 97 09/28/16 00:00 98.9 110 20 94/52 99 I/O 09/27/16 09/27/16 09/27/16 09/28/16 09/28/16 09/28/16 07:00 15:00 23:00 07:00 15:00 23:00 Output Total 400 ml 550 ml 250 ml 550 ml Balance -400 ml -550 ml -250 ml -550 ml Output Urine Total 400 ml 550 ml 250 ml 550 ml Result Diagram: 09/26/16 0455 09/26/16 0455 Imaging Last Impressions Chest X-Ray 09/26/16 0600 Signed Impressions: Service Date/Time: Monday, September 26, 2016 06:09 - CONCLUSION: Limited study due to the obliquity. Clear lungs. Henri Shirley Jr., MD Abdomen X-Ray 09/24/16 0000 Signed Impressions: Service Date/Time: Saturday, September 24, 2016 05:27 - CONCLUSION: Adequate placement of PEG tube. Justyn Borugeois MD Upper Extremity Ultrasound 09/07/16 0000 Signed Impressions: Service Date/Time: August 09:28 - CONCLUSION: Cephalic vein thrombosis. K. Marquis Da Silva MD Abdomen Ultrasound 09/03/16 0000 Signed Impressions: Service Date/Time: Saturday, September 03, 2016 15:21 - CONCLUSION: 1. No acute findings. Exam somewhat limited by overlying bowel gas. Mina Varghese MD Objective Remarks GENERAL: Resting in bed, NAD. SKIN: Warm and dry. HEAD: Normocephalic. EYES: No scleral icterus. No injection or drainage. NECK: Supple, trachea midline. No JVD or lymphadenopathy. CARDIOVASCULAR: Regular rate and rhythm without murmurs, gallops, or rubs. RESPIRATORY: Breath sounds equal bilaterally. No accessory muscle use. GASTROINTESTINAL: Abdomen soft, non-tender, nondistended. MUSCULOSKELETAL: No cyanosis, or edema. BACK: Nontender without obvious deformity. Procedures None. A/P Assessment and Plan Mr. Amin is an 81 year old male with end stage Alzheimer's dementia, chronic respiratory failure who was brought to the hospital on 09/02/2016 due to hyperglycemia. However, on evaluation in the ER, he was found to be tachycardic , diaphoretic. He had a serum Na 160, glucose of 600, Cr 3 (baseline around 1), lactate of 3.0, wbc 17. He was febrile as well. Patient remained in the ICU until 09/25/2016 and during his ICU stay, electrolytes were corrected. Urine cx was positive for ESBL Klebsiella. ID was consulted. Patient was started on Ertapenem by ID. - Acute on Chronic respiratory failure - Continue with oxygen keep sat >92% - s/p #8 Shiley percutaneous trach 06/13. (Dr. Morataya/Dr. Dai). Downsized to a # 6 Johana DFEN 08/05 - DuoNeb q6h and q2h prn, pulm toilet, trach care. Currently on T piece FIO2 28%. - UTI with ESBL organism - Patient was on Ertapenem. ID recommended watching without any abx. - Due to fever, ID re-started on Ertapenem and Diflucan on 09/27/2016. - Alzheimer's dementia - Acetaminophen for fever/Dilaudid as needed for pain management. - Modafinil 400mg PO Qday - no significant improvement on this medication - Diabetes mellitus - Continue Levemir 15 units Q12hrs and sliding scale insulin. - Nutrition, GERD - Continue Famotidine 20mg Qday - Continue tube feed. Full code. Heparin 5000 units Q12hrs. 09/28/2016 - Continue current management. No acute changes. Sharda Howe DO September 28, 2016 23:33
[2016-09-29] VITALS (11 sets, daily range): BP systolic 103–142; BP diastolic 58–80; PULSE 80–109; RESP 20–23; TEMP 97.7–100.2; O2SAT 96–99
[2016-09-29] MEDS: INSULIN NovoLIN REGULAR SUPPLEMENTAL SCALE SQ SCH ×5 (04:00→20:00)
[2016-09-29] MEDS: CHLORHEXIDINE GLUCONATE 2 % 1 PACK (2 CLOTHS) TOP SCH (04:00)
[2016-09-29] MEDS: METOCLOPRAMIDE HCL 10 MG/2 ML VIAL IV PUSH SCH ×3 (05:27→21:55)
[2016-09-29] MEDS: FREE WATER G-TUBE SCH ×3 (05:27→17:30)
[2016-09-29] MEDS: SODIUM CHLORIDE 0.9% FLUSH 10 ML FLUSH IV FLUSH SCH ×2 (09:00→21:00)
[2016-09-29] MEDS: FAMOTIDINE 20 MG TAB NG SCH (10:21)
[2016-09-29] MEDS: MODAFINIL 200 MG TAB PO SCH (10:21)
[2016-09-29] MEDS: HEPARIN SODIUM - SQ 10,000 UNITS/ML VIAL SQ SCH (10:22)
[2016-09-29] MEDS: INSULIN DETEMIR 100 UNITS/ML VIAL SQ SCH ×2 (10:24→21:00)
[2016-09-29] MEDS: SENNOSIDES SYRUP 8.8 MG/5 ML CUP PO SCH (10:24)
[2016-09-29] MEDS: CHLORHEXIDINE 0.12% (ORAL KIT) 15 ML CUP MT SCH ×2 (10:25→20:00)
[2016-09-29] MEDS: JUVEN POWDER 1 PACK G-TUBE SCH ×2 (10:25→21:00)
[2016-09-29] MEDS: DOCUSATE SODIUM 100 MG/10 ML UDC PO SCH ×2 (10:25→21:53)
[2016-09-29] MEDS: NYSTATIN 100,000 U/GM PWD 15 GM BTL TOPICAL SCH ×2 (10:26→21:00)
[2016-09-29] MEDS: FLUCONAZOLE 200 MG TAB PO SCH (13:06)
[2016-09-29] MEDS: POVIDONE IODINE 10% SOLN 480 ML BTL TOPICAL SCH ×2 (13:18→21:00)
[2016-09-29] MEDS: ERTAPENEM INJ 1,000 MG in SODIUM CHLORIDE 0.9% INJ 100 ML IV SCH (13:18)
--- NOTE | 2016-09-29 19:07 | HHI.PR ---
Subjective Remarks Patient seen this morning around 11:30 AM. Patient is nonverbal. Discussed with nursing. This is baseline. Also discussed with nursing. Patient has had low-grade temperatures up to 100.2 today. Otherwise patient appears comfortable. Objective Vital Signs Date Time Temp Pulse Resp B/P Pulse Ox O2 Delivery O2 Flow Rate FiO2 09/29/16 18:10 98 T-piece 6.00 28 09/29/16 15:42 99.7 109 21 142/72 98 09/29/16 11:37 100.2 103 21 112/76 98 09/29/16 10:42 100 09/29/16 10:40 98 T-Piece 28 09/29/16 08:48 98 T-piece 5.00 28 09/29/16 08:48 97 T-piece 5.00 28 09/29/16 07:59 99.3 101 20 111/58 99 09/29/16 04:45 99.5 96 23 110/64 98 09/29/16 03:14 99 T-piece 5.00 28 09/29/16 00:20 97.7 80 22 103/67 96 09/28/16 23:00 97 T-Piece 28 09/28/16 21:30 98.8 89 21 101/66 97 09/28/16 20:30 98 T-piece 28 09/28/16 20:30 98 T-piece 28 I/O 09/28/16 09/28/16 09/28/16 09/29/16 09/29/16 09/29/16 07:00 15:00 23:00 07:00 15:00 23:00 Intake Total 0 ml 0 ml Output Total 250 ml 550 ml 300 ml 800 ml Balance -250 ml -550 ml -300 ml -800 ml Intake Oral 0 ml 0 ml Output Urine Total 250 ml 550 ml 300 ml 300 ml Stool Total 0 ml 500 ml Result Diagram: 09/26/16 0455 09/26/16 0455 Objective Remarks GENERAL: patient sitting in bed. Appears comfortable. Nonverbal. Noninteractive. SKIN: Warm and dry. HEAD: Normocephalic. EYES: No scleral icterus. No injection or drainage. NECK: Supple, trachea midline. No JVD CARDIOVASCULAR: Regular rate and rhythm without murmurs, gallops, or rubs. RESPIRATORY: Breath sounds equal bilaterally. No accessory muscle use. GASTROINTESTINAL: Abdomen soft, non-tender, nondistended. MUSCULOSKELETAL: No cyanosis, or edema. BACK: Nontender without obvious deformity. No CVA tenderness. A/P Assessment and Plan Mr. Amin is an 81 year old male with end stage Alzheimer's dementia, chronic respiratory failure who was brought to the hospital on 09/02/2016 due to hyperglycemia. However, on evaluation in the ER, he was found to be tachycardic , diaphoretic. He had a serum Na 160, glucose of 600, Cr 3 (baseline around 1), lactate of 3.0, wbc 17. He was febrile as well. Patient remained in the ICU until 09/25/2016 and during his ICU stay, electrolytes were corrected. Urine cx was positive for ESBL Klebsiella. ID was consulted. Patient was started on Ertapenem by ID. //Acute on Chronic respiratory failure - Continue with oxygen keep sat >92% - s/p #8 Shiley percutaneous trach 06/13. (Dr. Morataya/Dr. Dai). Downsized to a # 6 Shiley DFEN 08/05 - DuoNeb q6h and q2h prn, pulm toilet, trach care. Currently on T piece FIO2 28%. //UTI with ESBL organism - Patient was on Ertapenem. ID recommended watching without any abx. - Due to fever, ID re-started on Ertapenem and Diflucan on 09/27/2016. -09/29. Patient continues with low-grade fevers. Follow labs tomorrow. Continue to monitor. //Alzheimer's dementia - Acetaminophen for fever/Dilaudid as needed for pain management. - Continues on Modafinil 400mg PO Qday - no significant improvement on this medication //Diabetes mellitus - Continue Levemir 15 units Q12hrs and sliding scale insulin. -09/29. Glucose reviewed and acceptable. Continue to monitor. //Nutrition, GERD - Continue Famotidine 20mg Qday - Continue tube feed. DVT prophylaxis. Heparin 5000 units Q12hrs. Discharge Planning continues with low-grade fevers. On ertapenem for ESBL. We'll need ID clearance prior to discharge. Appreciate case management assistance. Mendez Cunningham MD September 29, 2016 19:07
[2016-09-30] VITALS (8 sets, daily range): BP systolic 99–132; BP diastolic 63–89; PULSE 101–105; RESP 20–24; TEMP 98.6–99.3; O2SAT 91–100
[2016-09-30] MEDS: HEPARIN SODIUM - SQ 10,000 UNITS/ML VIAL SQ SCH ×2 (02:10→12:35)
[2016-09-30] MEDS: INSULIN NovoLIN REGULAR SUPPLEMENTAL SCALE SQ SCH ×6 (04:00→20:00)
[2016-09-30] MEDS: CHLORHEXIDINE GLUCONATE 2 % 1 PACK (2 CLOTHS) TOP SCH (04:00)
[2016-09-30] MEDS: FREE WATER G-TUBE SCH ×4 (05:15→17:15)
[2016-09-30] MEDS: METOCLOPRAMIDE HCL 10 MG/2 ML VIAL IV PUSH SCH ×3 (05:16→20:52)
[2016-09-30] MEDS: DOCUSATE SODIUM 100 MG/10 ML UDC PO SCH ×2 (07:57→20:54)
[2016-09-30] MEDS: SODIUM CHLORIDE 0.9% FLUSH 10 ML FLUSH IV FLUSH SCH ×2 (07:57→20:52)
[2016-09-30] MEDS: MODAFINIL 200 MG TAB PO SCH (07:57)
[2016-09-30] MEDS: FAMOTIDINE 20 MG TAB NG SCH (07:57)
[2016-09-30] MEDS: SENNOSIDES SYRUP 8.8 MG/5 ML CUP PO SCH (07:57)
[2016-09-30] MEDS: CHLORHEXIDINE 0.12% (ORAL KIT) 15 ML CUP MT SCH ×2 (08:01→20:00)
[2016-09-30] MEDS: JUVEN POWDER 1 PACK G-TUBE SCH ×2 (08:12→21:00)
[2016-09-30] MEDS: INSULIN DETEMIR 100 UNITS/ML VIAL SQ SCH ×2 (08:19→20:59)
[2016-09-30 11:05] LABS: BICARBONATE 26.3 MEQ/L (21.0-32.0); MAGNESIUM 2.6 MG/DL (1.5-2.5)
[2016-09-30 11:08] LABS: POTASSIUM 4.7 MEQ/L (3.5-5.1)
[2016-09-30 12:33] LABS: AUTOMATED NEUTROPHIL # 6.5 TH/MM3 (1.8-7.7); BASOPHIL # 0.1 TH/MM3 (0-0.2); EOSINOPHIL # 0.3 TH/MM3 (0-0.4); HEMATOCRIT 31.1 % (39.0-51.0); LYMPH % 24.5 % (9.0-44.0); LYMPHOCYTE # 2.4 TH/MM3 (1.0-4.8); MEAN CELL VOLUME 86.4 FL (80.0-100.0); MEAN CORPUSCULAR HEMOGLOBIN 29.8 PG (27.0-34.0); MEAN CORPUSCULAR HGB CONC 34.5 % (32.0-36.0); MONO % 6.2 % (0.0-8.0); NEUT % 65.3 % (16.0-70.0); PLATELET COUNT 312 TH/MM3 (150-450); RED CELL DISTRIBUTION WIDTH 19.8 % (11.6-17.2); WHITE BLOOD COUNT 9.9 TH/MM3 (4.0-11.0)
[2016-09-30] MEDS: ERTAPENEM INJ 1,000 MG in SODIUM CHLORIDE 0.9% INJ 100 ML IV SCH (12:33)
[2016-09-30] MEDS: FLUCONAZOLE 200 MG TAB PO SCH (12:34)
[2016-09-30 12:35] LABS: HEMO FLAGS AUTO DIFF
[2016-09-30] MEDS: NYSTATIN 100,000 U/GM PWD 15 GM BTL TOPICAL SCH ×2 (12:35→21:01)
[2016-09-30] MEDS: POVIDONE IODINE 10% SOLN 480 ML BTL TOPICAL SCH ×2 (12:35→21:00)
[2016-09-30 14:30] LABS: BANDS 1 % (0-6); CORRECTED NUCLEATED RBC 1 /100 WBC (0-0); EOSINOPHILS 1 % (0-4); METAMYELOCYTES 2 % (0-1); MYELOCYTES 2 % (0-0); NEUTROPHIL # MANUAL DIFF 8.4 TH/MM3 (1.8-7.7); PLATELET ESTIMATE SMEAR NORMAL (NORMAL); PLATELET MORPHOLOGY NORMAL (NORMAL); POLYS (SEG NEUTROPHILS) 80 % (16-70); SCAN/DIFF FINAL DIFF MANUAL; WBC DIFF SAMPLE 100
--- NOTE | 2016-09-30 23:53 | HHI.PR ---
Subjective Remarks Patient seen today around noon. No acute changes. Patient continues nonverbal. Objective Vital Signs Date Time Temp Pulse Resp B/P Pulse Ox O2 Delivery O2 Flow Rate FiO2 09/30/16 20:50 99.3 103 20 99/70 91 09/30/16 16:00 98.8 101 20 130/63 98 09/30/16 12:45 100 T-piece 28 09/30/16 12:00 98.7 104 20 132/85 99 09/30/16 10:03 100 T-Piece 28 09/30/16 09:55 101 09/30/16 08:00 98.8 101 20 130/63 98 09/30/16 05:45 98.6 102 24 118/88 98 09/30/16 03:50 98 T-Piece 09/30/16 00:00 99.0 105 22 120/89 95 I/O 09/29/16 09/29/16 09/29/16 09/30/16 09/30/16 09/30/16 07:00 15:00 23:00 07:00 15:00 23:00 Intake Total 0 ml 0 ml 0 ml Output Total 800 ml 300 ml 350 ml 600 ml Balance -800 ml -300 ml -350 ml -600 ml Intake Oral 0 ml 0 ml 0 ml Output Urine Total 300 ml 300 ml 200 ml 600 ml Stool Total 500 ml 0 ml 150 ml Result Diagram: 09/30/16 1215 09/30/16 0956 Objective Remarks GENERAL: patient sitting in bed. Appears comfortable. Nonverbal. Noninteractive.. Exam unchanged from yesterday. SKIN: Warm and dry. HEAD: Normocephalic. EYES: No scleral icterus. No injection or drainage. NECK: Supple, trachea midline. No JVD CARDIOVASCULAR: Regular rate and rhythm without murmurs, gallops, or rubs. RESPIRATORY: Breath sounds equal bilaterally. No accessory muscle use. GASTROINTESTINAL: Abdomen soft, non-tender, nondistended. MUSCULOSKELETAL: No cyanosis, or edema. BACK: Nontender without obvious deformity. No CVA tenderness. A/P Assessment and Plan Mr. Amin is an 81 year old male with end stage Alzheimer's dementia, chronic respiratory failure who was brought to the hospital on 09/02/2016 due to hyperglycemia. However, on evaluation in the ER, he was found to be tachycardic , diaphoretic. He had a serum Na 160, glucose of 600, Cr 3 (baseline around 1), lactate of 3.0, wbc 17. He was febrile as well. Patient remained in the ICU until 09/25/2016 and during his ICU stay, electrolytes were corrected. Urine cx was positive for ESBL Klebsiella. ID was consulted. Patient was started on Ertapenem by ID. //Acute on Chronic respiratory failure - Continue with oxygen keep sat >92% - s/p #8 Shiley percutaneous trach 06/13. (Dr. Morataya/Dr. Dai). Downsized to a # 6 Shiley DFEN 08/05 - DuoNeb q6h and q2h prn, pulm toilet, trach care. Cont on T piece FIO2 28%. //UTI with ESBL organism - Patient was on Ertapenem. ID recommended watching without any abx. - Due to fever, ID re-started on Ertapenem and Diflucan on 09/27/2016. -09/30. Patient again continues with low-grade fevers. Follow labs. ID ff. appreciate assist. //Alzheimer's dementia - Acetaminophen for fever/Dilaudid as needed for pain management. - Continues on Modafinil 400mg PO Qday - no significant improvement on this medication //Diabetes mellitus - Continue Levemir 15 units Q12hrs and sliding scale insulin. -09/30. Glucose again reviewed and acceptable. Continue to monitor. //Nutrition, GERD - Continue Famotidine 20mg Qday - Continue tube feed. //Unstageable sacral ulcer. Continue wound care. DVT prophylaxis. Heparin 5000 units Q12hrs. Discharge Planning continues with low-grade fevers. On ertapenem for ESBL. We'll need ID clearance prior to discharge. Appreciate case management assistance. Mendez Cunningham MD September 30, 2016 23:53
[2016-10-01] VITALS (8 sets, daily range): BP systolic 113–126; BP diastolic 53–76; PULSE 97–111; RESP 16–22; TEMP 97–100.4; O2SAT 97–100
[2016-10-01] MEDS: HEPARIN SODIUM - SQ 10,000 UNITS/ML VIAL SQ SCH ×2 (00:59→12:44)
[2016-10-01] MEDS: INSULIN NovoLIN REGULAR SUPPLEMENTAL SCALE SQ SCH ×6 (01:06→20:48)
[2016-10-01] MEDS: CHLORHEXIDINE GLUCONATE 2 % 1 PACK (2 CLOTHS) TOP SCH (04:00)
[2016-10-01] MEDS: FREE WATER G-TUBE SCH ×4 (06:00→18:00)
[2016-10-01] MEDS: METOCLOPRAMIDE HCL 10 MG/2 ML VIAL IV PUSH SCH ×3 (06:04→20:48)
[2016-10-01] MEDS: CHLORHEXIDINE 0.12% (ORAL KIT) 15 ML CUP MT SCH ×2 (08:00→20:00)
[2016-10-01] MEDS: FAMOTIDINE 20 MG TAB NG SCH (08:30)
[2016-10-01] MEDS: DOCUSATE SODIUM 100 MG/10 ML UDC PO SCH ×2 (08:31→20:48)
[2016-10-01] MEDS: SENNOSIDES SYRUP 8.8 MG/5 ML CUP PO SCH (08:31)
[2016-10-01] MEDS: NYSTATIN 100,000 U/GM PWD 15 GM BTL TOPICAL SCH ×2 (08:42→20:55)
[2016-10-01] MEDS: JUVEN POWDER 1 PACK G-TUBE SCH ×2 (08:42→21:00)
[2016-10-01] MEDS: INSULIN DETEMIR 100 UNITS/ML VIAL SQ SCH ×2 (08:42→20:48)
[2016-10-01] MEDS: SODIUM CHLORIDE 0.9% FLUSH 10 ML FLUSH IV FLUSH SCH ×2 (08:42→20:55)
[2016-10-01] MEDS: POVIDONE IODINE 10% SOLN 480 ML BTL TOPICAL SCH ×2 (08:42→20:55)
[2016-10-01] MEDS: MODAFINIL 200 MG TAB PO SCH (09:00)
[2016-10-01] MEDS: FLUCONAZOLE 200 MG TAB PO SCH (12:54)
[2016-10-01] MEDS: ERTAPENEM INJ 1,000 MG in SODIUM CHLORIDE 0.9% INJ 100 ML IV SCH (15:26)
--- NOTE | 2016-10-01 15:44 | HHI.PR ---
Subjective Remarks Patient seen this morning around 11 AM. No acute changes. Objective Vital Signs Date Time Temp Pulse Resp B/P Pulse Ox O2 Delivery O2 Flow Rate FiO2 10/01/16 12:31 99.6 108 20 113/67 99 10/01/16 09:13 100 T-piece 5.00 28 10/01/16 09:13 98 T-piece 53.00 28 10/01/16 08:00 99.3 109 22 123/53 98 10/01/16 07:00 99 T-Piece 8.00 28 10/01/16 07:00 101 10/01/16 06:05 98 T-Piece 28 10/01/16 05:26 100.4 111 18 122/75 100 10/01/16 00:51 99.4 108 16 126/76 99 09/30/16 20:50 99.3 103 20 99/70 91 09/30/16 16:00 98.8 101 20 130/63 98 I/O 09/30/16 09/30/16 09/30/16 10/01/16 10/01/16 10/01/16 07:00 15:00 23:00 07:00 15:00 23:00 Intake Total 0 ml Output Total 350 ml 600 ml 300 ml Balance -350 ml -600 ml -300 ml Intake Oral 0 ml Output Urine Total 200 ml 600 ml 300 ml Stool Total 150 ml Result Diagram: 09/30/16 1215 09/30/16 0956 Objective Remarks GENERAL: patient sitting in bed. Appears comfortable. Nonverbal. Noninteractive.. Exam unchanged. SKIN: Warm and dry. Unstageable ulcer over the sacrum. mepilex in place HEAD: Normocephalic. EYES: No scleral icterus. No injection or drainage. NECK: Supple, trachea midline. No JVD CARDIOVASCULAR: Regular rate and rhythm without murmurs, gallops, or rubs. RESPIRATORY: Breath sounds equal bilaterally. No accessory muscle use. GASTROINTESTINAL: Abdomen soft, non-tender, nondistended. PEG tube in place with no erythema or leakage. MUSCULOSKELETAL: No cyanosis, or edema. BACK: Nontender without obvious deformity. No CVA tenderness. A/P Assessment and Plan Mr. Amin is an 81 year old male with end stage Alzheimer's dementia, chronic respiratory failure who was brought to the hospital on 09/02/2016 due to hyperglycemia. However, on evaluation in the ER, he was found to be tachycardic , diaphoretic. He had a serum Na 160, glucose of 600, Cr 3 (baseline around 1), lactate of 3.0, wbc 17. He was febrile as well. Patient remained in the ICU until 09/25/2016 and during his ICU stay, electrolytes were corrected. Urine cx was positive for ESBL Klebsiella. ID was consulted. Patient was started on Ertapenem by ID. //Acute on Chronic respiratory failure - Continue with oxygen keep sat >92% - s/p #8 Shiley percutaneous trach 06/13. (Dr. Morataya/Dr. Dai). Downsized to a # 6 Shiley DFEN 08/05 - DuoNeb q6h and q2h prn, pulm toilet, trach care. Cont on T piece FIO2 28%. //UTI with ESBL organism - Patient was on Ertapenem. ID recommended watching without any abx. - Due to fever, ID re-started on Ertapenem and Diflucan on 09/27/2016. -09/30. Patient again continues with low-grade fevers. 100.4 today area Follow labs. ID ff. appreciate assist. //Alzheimer's dementia - Acetaminophen for fever/Dilaudid as needed for pain management. - Continues on Modafinil 400mg PO Qday - no significant improvement on this medication //Diabetes mellitus - Continue Levemir 15 units Q12hrs and sliding scale insulin. -09/30. Glucose again reviewed and acceptable. Continue to monitor. //Nutrition, GERD - Continue Famotidine 20mg Qday - Continue tube feed. //Unstageable sacral ulcer. Continue wound care. Wound care nurse consulted. DVT prophylaxis. Heparin 5000 units Q12hrs. Discharge Planning continues with low-grade fevers. On ertapenem for ESBL. We'll need ID clearance prior to discharge. Appreciate case management assistance. Mendez Cunningham MD October 01, 2016 15:44
[2016-10-02] VITALS (9 sets, daily range): BP systolic 112–143; BP diastolic 67–76; PULSE 67–109; RESP 16–22; TEMP 97–100; O2SAT 95–100
[2016-10-02] MEDS: HEPARIN SODIUM - SQ 10,000 UNITS/ML VIAL SQ SCH ×2 (00:44→13:04)
[2016-10-02] MEDS: INSULIN NovoLIN REGULAR SUPPLEMENTAL SCALE SQ SCH ×6 (00:44→21:51)
[2016-10-02] MEDS: CHLORHEXIDINE GLUCONATE 2 % 1 PACK (2 CLOTHS) TOP SCH (04:00)
[2016-10-02] MEDS: FREE WATER G-TUBE SCH ×4 (04:49→17:32)
[2016-10-02] MEDS: METOCLOPRAMIDE HCL 10 MG/2 ML VIAL IV PUSH SCH ×3 (05:10→21:44)
[2016-10-02 06:54] LABS: AUTOMATED NEUTROPHIL # 6.8 TH/MM3 (1.8-7.7); BASOPHIL # 0.1 TH/MM3 (0-0.2); BASOPHIL % 0.7 % (0.0-2.0); EOSINOPHIL # 0.3 TH/MM3 (0-0.4); HEMATOCRIT 31.4 % (39.0-51.0); LYMPH % 22.9 % (9.0-44.0); LYMPHOCYTE # 2.3 TH/MM3 (1.0-4.8); MEAN CORPUSCULAR HEMOGLOBIN 29.8 PG (27.0-34.0); MEAN CORPUSCULAR HGB CONC 34.7 % (32.0-36.0); MONO % 6.4 % (0.0-8.0); PLATELET COUNT 328 TH/MM3 (150-450); RED BLOOD COUNT 3.66 MIL/MM3 (4.50-5.90); RED CELL DISTRIBUTION WIDTH 19.6 % (11.6-17.2); WHITE BLOOD COUNT 10.1 TH/MM3 (4.0-11.0)
[2016-10-02 07:00] LABS: HEMO FLAGS AUTO DIFF
[2016-10-02 07:28] LABS: BICARBONATE 25.1 MEQ/L (21.0-32.0); MAGNESIUM 2.6 MG/DL (1.5-2.5)
[2016-10-02 07:29] LABS: POTASSIUM 4.4 MEQ/L (3.5-5.1)
[2016-10-02] MEDS: CHLORHEXIDINE 0.12% (ORAL KIT) 15 ML CUP MT SCH ×2 (08:00→21:56)
[2016-10-02 08:22] LABS: BANDS 6 % (0-6); EOSINOPHILS 2 % (0-4); MYELOCYTES 2 % (0-0); NEUTROPHIL # MANUAL DIFF 7.9 TH/MM3 (1.8-7.7); POLYS (SEG NEUTROPHILS) 70 % (16-70); WBC DIFF SAMPLE 100
[2016-10-02 08:24] LABS: PLATELET ESTIMATE SMEAR NORMAL (NORMAL); PLATELET MORPHOLOGY NORMAL (NORMAL); SCAN/DIFF FINAL DIFF MANUAL
[2016-10-02] MEDS: POVIDONE IODINE 10% SOLN 480 ML BTL TOPICAL SCH ×2 (09:00→22:08)
[2016-10-02] MEDS: NYSTATIN 100,000 U/GM PWD 15 GM BTL TOPICAL SCH ×2 (09:00→21:46)
[2016-10-02] MEDS: SODIUM CHLORIDE 0.9% FLUSH 10 ML FLUSH IV FLUSH SCH ×2 (09:00→21:47)
[2016-10-02] MEDS: FAMOTIDINE 20 MG TAB NG SCH (09:25)
[2016-10-02] MEDS: SENNOSIDES SYRUP 8.8 MG/5 ML CUP PO SCH (09:25)
[2016-10-02] MEDS: MODAFINIL 200 MG TAB PO SCH (09:25)
[2016-10-02] MEDS: DOCUSATE SODIUM 100 MG/10 ML UDC PO SCH ×2 (09:25→21:43)
[2016-10-02] MEDS: INSULIN DETEMIR 100 UNITS/ML VIAL SQ SCH ×2 (09:28→21:51)
[2016-10-02] MEDS: FLUCONAZOLE 200 MG TAB PO SCH (13:06)
--- NOTE | 2016-10-02 13:27 | HHI.IDPN ---
Subjective Subjective Remarks Intermittently low grade fevers Not much secretions tolerating tube feeds cont to have persistent diarrhea Antibiotics ertapenem fluc Lines no central lines Past Medical History Reviewed Allergies: Coded Allergies: *MDRO Multi-Drug Resistant Organism (Verified Adverse Reaction, Unknown, ) MRSA (sputum) - 06/28/16, 07/12/16, 07/21/16 MRSA PCR Screen POSITIVE - 09/03/2016 ESBL K. pneumoniae (urine) - 09/02/16 & (sputum)-09/24/16 MDR-Acinetobacter (sputum)-09/08/16 Objective . Vital Signs Date Time Temp Pulse Resp B/P Pulse Ox O2 Delivery O2 Flow Rate FiO2 10/02/16 12:00 99.3 102 18 112/69 100 10/02/16 08:00 97.6 99 21 136/75 96 10/02/16 04:00 98.0 97 18 132/70 98 10/02/16 01:00 98.4 95 16 135/76 99 10/01/16 23:00 101 10/01/16 22:42 T-Piece 28 10/01/16 19:30 97.0 97 20 121/72 97 10/01/16 10/01/16 10/02/16 15:00 23:00 07:00 Output Total 450 ml 750 ml Balance -450 ml -750 ml Output Urine Total 350 ml 750 ml Stool Total 100 ml . Laboratory Tests Test 10/02/16 06:37 White Blood Count 10.1 TH/MM3 Red Blood Count 3.66 MIL/MM3 Hemoglobin 10.9 GM/DL Hematocrit 31.4 % Mean Corpuscular Volume 86.0 FL Mean Corpuscular Hemoglobin 29.8 PG Mean Corpuscular Hemoglobin 34.7 % Concent Red Cell Distribution Width 19.6 % Platelet Count 328 TH/MM3 Mean Platelet Volume 7.4 FL Neutrophils (%) (Auto) 67.0 % Lymphocytes (%) (Auto) 22.9 % Monocytes (%) (Auto) 6.4 % Eosinophils (%) (Auto) 3.0 % Basophils (%) (Auto) 0.7 % Neutrophils # (Auto) 6.8 TH/MM3 Lymphocytes # (Auto) 2.3 TH/MM3 Monocytes # (Auto) 0.6 TH/MM3 Eosinophils # (Auto) 0.3 TH/MM3 Basophils # (Auto) 0.1 TH/MM3 CBC Comment AUTO DIFF Differential Total Cells 100 Counted Neutrophils % (Manual) 70 % Band Neutrophils % 6 % Lymphocytes % 17 % Monocytes % 3 % Eosinophils % 2 % Neutrophils # (Manual) 7.9 TH/MM3 Myelocytes 2 % Differential Comment FINAL DIFF MANUAL Platelet Estimate NORMAL Platelet Morphology Comment NORMAL Polychromasia 2.0 % Laboratory Tests Test 10/02/16 06:37 Sodium Level 135 MEQ/L Potassium Level 4.4 MEQ/L Chloride Level 98 MEQ/L Carbon Dioxide Level 25.1 MEQ/L Anion Gap 12 MEQ/L Blood Urea Nitrogen 22 MG/DL Creatinine 0.80 MG/DL Estimat Glomerular Filtration 92 ML/MIN Rate Random Glucose 209 MG/DL Calcium Level 8.5 MG/DL Phosphorus Level 2.4 MG/DL Magnesium Level 2.6 MG/DL Albumin 2.7 GM/DL Imaging L Last Impressions Chest X-Ray 09/26/16 0600 Signed Impressions: Service Date/Time: Monday, September 26, 2016 06:09 - CONCLUSION: Limited study due to the obliquity. Clear lungs. Henri Shirley Jr., MD Abdomen X-Ray 09/24/16 0000 Signed Impressions: Service Date/Time: Saturday, September 24, 2016 05:27 - CONCLUSION: Adequate placement of PEG tube. Justyn Bourgeois MD Upper Extremity Ultrasound 09/07/16 0000 Signed Impressions: Service Date/Time: August 09:28 - CONCLUSION: Cephalic vein thrombosis. K. Marquis Da Silva MD Abdomen Ultrasound 09/03/16 0000 Signed Impressions: Service Date/Time: Saturday, September 03, 2016 15:21 - CONCLUSION: 1. No acute findings. Exam somewhat limited by overlying bowel gas. Mina Varghese MD Physical Exam CONSTITUTIONAL/GENERAL: Opens eyes to touch, on Tpiece SKIN: No jaundice, rashes, or lesions. Warm and dry Sacral wound nearly healed EYES: No scleral icterus. No injection or drainage. NECK: Trachea midline. Supple, nontender. Trach collar in place , site OK, minimal secretions CARDIOVASCULAR: Regular rate and rhythm without murmurs, gallops, or rubs. RESPIRATORY/CHEST: fairly clear today to auscultation. GASTROINTESTINAL: Abdomen soft, no reaction to palpation. mildly distended. Bowel sounds present. Dignishield in place with liquid brown stool PEG in place GENITOURINARY: Without palpable bladder distension. Lennon catheter in place with clear yellow urine MUSCULOSKELETAL: Extremities without clubbing, cyanosis, trace edema. No joint effusion noted. No mottling. contracted pt NEUROLOGICAL: Not responding - at baseline PSYCHIATRIC: unable to assess LINE no evidence of infection Assessment & Plan Remarks Bacteriia/funguria PSAE PNA, vs tracheobronchitis, clinically resolved Persistently colonised with MDROs, including KLEBSIELLA PNEUMONIAE ESBL POS, as well as PROTEUS MIRABILIS - previously MDRO Acietobacter in sputum Fevers - intermittent - no fever in last 24 - ? source ? non infectious e.i, recurrent aspiration Respiratory failure, has chronic trach - currently on T-piece, but breathing looks laboured or unusual Advanced Dementia Diarrhea, ho recent abx use; C.diff negative UTI vs colionisation urine clx with KLEBSIELLA PNEUMONIAE ESBL POS, only S to tetracycline PLAN monitor clinically monitor temps dc Ertapnem x 1 week dc diflucan x 1 wk rechk urine clx with new lennon consider to chk US BLE /BUE if con t to have unexplained low grade fever dw Elle Rubio MD October 02, 2016 13:27
[2016-10-02 16:24] LABS: BLOOD, URINE NEG (NEG); GLUCOSE,URINE NEG (NEG); KETONE, URINE NEG (NEG); NITRITE,URINE NEG (NEG); PH, URINE 6.5 (5.0-8.5); SQUAMOUS EPITHELIAL CELL URINE <1 /hpf (0-5); URINE COLOR YELLOW (YELLW/STRAW)
[2016-10-02 16:26] LABS: COMMENT (UR) CATH-CULT NOT IND; CULTURE IF INDICATED CATH CULTURE NOT IND
--- NOTE | 2016-10-02 19:58 | HHI.PR ---
Subjective Remarks patient seen today around 1 PM. No acute changes. Continues nonverbal. Discussed with Dr. Burris. Mckeon exchange, with repeat urinalysis and culture. Objective Vital Signs Date Time Temp Pulse Resp B/P Pulse Ox O2 Delivery O2 Flow Rate FiO2 10/02/16 16:00 98.8 67 22 121/67 99 10/02/16 13:18 98 T-piece 5.00 28 10/02/16 13:18 98 T-piece 5.00 28 10/02/16 12:00 99.3 102 18 112/69 100 10/02/16 08:00 97.6 99 21 136/75 96 10/02/16 07:00 99 10/02/16 07:00 100 T-Piece 28 10/02/16 04:00 98.0 97 18 132/70 98 10/02/16 01:00 98.4 95 16 135/76 99 10/01/16 23:00 101 10/01/16 22:42 T-Piece 28 I/O 10/01/16 10/01/16 10/01/16 10/02/16 10/02/16 10/02/16 07:00 15:00 23:00 07:00 15:00 23:00 Output Total 300 ml 450 ml 750 ml 400 ml Balance -300 ml -450 ml -750 ml -400 ml Output Urine Total 300 ml 350 ml 750 ml 400 ml Stool Total 100 ml Result Diagram: 10/02/16 0637 10/02/1637 Objective Remarks GENERAL: patient sitting in bed. Appears comfortable. Nonverbal. Noninteractive.. Exam again unchanged. SKIN: Warm and dry. Unstageable ulcer over the sacrum. mepilex in place HEAD: Normocephalic. EYES: No scleral icterus. No injection or drainage. NECK: Supple, trachea midline. No JVD CARDIOVASCULAR: Regular rate and rhythm without murmurs, gallops, or rubs. RESPIRATORY: Breath sounds equal bilaterally. No accessory muscle use. GASTROINTESTINAL: Abdomen soft, non-tender, nondistended. PEG tube in place with no erythema or leakage. MUSCULOSKELETAL: No cyanosis, or edema. BACK: Nontender without obvious deformity. No CVA tenderness. A/P Assessment and Plan Mr. Amin is an 81 year old male with end stage Alzheimer's dementia, chronic respiratory failure who was brought to the hospital on 09/02/2016 due to hyperglycemia. However, on evaluation in the ER, he was found to be tachycardic , diaphoretic. He had a serum Na 160, glucose of 600, Cr 3 (baseline around 1), lactate of 3.0, wbc 17. He was febrile as well. Patient remained in the ICU until 09/25/2016 and during his ICU stay, electrolytes were corrected. Urine cx was positive for ESBL Klebsiella. ID was consulted. Patient was started on Ertapenem by ID. //Acute on Chronic respiratory failure - Continue with oxygen keep sat >92% - s/p #8 Shiley percutaneous trach 06/13. (Dr. Morataya/Dr. Dai). Downsized to a # 6 Shiley DFEN 08/05 - DuoNeb q6h and q2h prn, pulm toilet, trach care. Cont on T piece FIO2 28%. //UTI with ESBL organism - Patient was on Ertapenem. ID recommended watching without any abx. - Due to fever, ID re-started on Ertapenem and Diflucan on 09/27/2016. -10/02. Fevers appear to be improving. Repeat urinalysis after Mckeon exchange by IV. Discussed with ID. Appreciate assistance. Continue antibiotics. //Alzheimer's dementia - Acetaminophen for fever/Dilaudid as needed for pain management. - Continues on Modafinil 400mg PO Qday - no significant improvement on this medication //Diabetes mellitus - Continue Levemir 15 units Q12hrs and sliding scale insulin. -09/30. Glucose again reviewed and acceptable. Continue to monitor. //Nutrition, GERD - Continue Famotidine 20mg Qday - Continue tube feed. //Unstageable sacral ulcer. Continue wound care. Wound care nurse consultedand pending. DVT prophylaxis. Heparin 5000 units Q12hrs. Discharge Planning continues onOn ertapenem for ESBL. We'll need ID clearance prior to discharge. has been accepted to SNF.Appreciate case management assistance. Mendez Cunningham MD October 02, 2016 19:58
[2016-10-02] MEDS: JUVEN POWDER 1 PACK G-TUBE SCH (21:47)
[2016-10-03] VITALS (11 sets, daily range): BP systolic 114–147; BP diastolic 60–89; PULSE 84–119; RESP 18–21; TEMP 96.6–99.9; O2SAT 97–100
[2016-10-03] MEDS: FREE WATER G-TUBE SCH ×4 (01:18→17:55)
[2016-10-03] MEDS: HEPARIN SODIUM - SQ 10,000 UNITS/ML VIAL SQ SCH ×2 (01:18→15:44)
[2016-10-03] MEDS: INSULIN NovoLIN REGULAR SUPPLEMENTAL SCALE SQ SCH ×6 (01:19→21:37)
[2016-10-03] MEDS: CHLORHEXIDINE GLUCONATE 2 % 1 PACK (2 CLOTHS) TOP SCH (04:00)
[2016-10-03] MEDS: METOCLOPRAMIDE HCL 10 MG/2 ML VIAL IV PUSH SCH ×3 (05:01→20:37)
[2016-10-03] MEDS: CHLORHEXIDINE 0.12% (ORAL KIT) 15 ML CUP MT SCH ×2 (08:00→20:00)
[2016-10-03] MEDS: JUVEN POWDER 1 PACK G-TUBE SCH ×2 (09:00→20:38)
[2016-10-03] MEDS: POVIDONE IODINE 10% SOLN 480 ML BTL TOPICAL SCH ×2 (09:00→20:39)
[2016-10-03] MEDS: NYSTATIN 100,000 U/GM PWD 15 GM BTL TOPICAL SCH ×2 (09:00→20:39)
[2016-10-03] MEDS: INSULIN DETEMIR 100 UNITS/ML VIAL SQ SCH ×2 (09:00→21:05)
[2016-10-03] MEDS: FAMOTIDINE 20 MG TAB NG SCH (10:14)
[2016-10-03] MEDS: SENNOSIDES SYRUP 8.8 MG/5 ML CUP PO SCH (10:14)
[2016-10-03] MEDS: MODAFINIL 200 MG TAB PO SCH (10:14)
[2016-10-03] MEDS: DOCUSATE SODIUM 100 MG/10 ML UDC PO SCH ×2 (10:14→20:37)
--- NOTE | 2016-10-03 14:35 | HHI.IDPN ---
Subjective Subjective Remarks cont to have intermittently low grade fevers + secretions Large amount of secretions were noted today when the pt was turned tolerating tube feeds cont to have persistent diarrhea Antibiotics none Lines no central lines Past Medical History Reviewed Allergies: Coded Allergies: *MDRO Multi-Drug Resistant Organism (Verified Adverse Reaction, Unknown, ) MRSA (sputum) - 06/28/16, 07/12/16, 07/21/16 MRSA PCR Screen POSITIVE - 09/03/2016 ESBL K. pneumoniae (urine) - 09/02/16 & (sputum)-09/24/16 MDR-Acinetobacter (sputum)-09/08/16 Objective . Vital Signs Date Time Temp Pulse Resp B/P Pulse Ox O2 Delivery O2 Flow Rate FiO2 10/03/16 12:00 99.9 103 20 114/60 99 10/03/16 08:00 97.8 100 20 127/70 100 10/03/16 04:18 99.2 97 18 114/63 98 10/03/16 04:06 100 T-piece 6.00 28 10/03/16 00:32 104 10/03/16 00:20 99.4 101 18 115/69 97 10/02/16 20:29 100.0 109 20 143/75 99 10/02/16 20:18 99 T-piece 28 10/02/16 20:18 99 28 10/02/16 20:00 100 T-Piece 28 10/02/16 16:00 98.8 67 22 121/67 99 10/02/16 10/02/16 10/03/16 14:59 22:59 06:59 Output Total 400 ml 200 ml 350 ml Balance -400 ml -200 ml -350 ml Output Urine Total 400 ml 200 ml 350 ml . Laboratory Tests Test 10/02/16 06:37 White Blood Count 10.1 TH/MM3 Red Blood Count 3.66 MIL/MM3 Hemoglobin 10.9 GM/DL Hematocrit 31.4 % Mean Corpuscular Volume 86.0 FL Mean Corpuscular Hemoglobin 29.8 PG Mean Corpuscular Hemoglobin 34.7 % Concent Red Cell Distribution Width 19.6 % Platelet Count 328 TH/MM3 Mean Platelet Volume 7.4 FL Neutrophils (%) (Auto) 67.0 % Lymphocytes (%) (Auto) 22.9 % Monocytes (%) (Auto) 6.4 % Eosinophils (%) (Auto) 3.0 % Basophils (%) (Auto) 0.7 % Neutrophils # (Auto) 6.8 TH/MM3 Lymphocytes # (Auto) 2.3 TH/MM3 Monocytes # (Auto) 0.6 TH/MM3 Eosinophils # (Auto) 0.3 TH/MM3 Basophils # (Auto) 0.1 TH/MM3 CBC Comment AUTO DIFF Differential Total Cells 100 Counted Neutrophils % (Manual) 70 % Band Neutrophils % 6 % Lymphocytes % 17 % Monocytes % 3 % Eosinophils % 2 % Neutrophils # (Manual) 7.9 TH/MM3 Myelocytes 2 % Differential Comment FINAL DIFF MANUAL Platelet Estimate NORMAL Platelet Morphology Comment NORMAL Polychromasia 2.0 % Laboratory Tests Test 10/02/16 06:37 Sodium Level 135 MEQ/L Potassium Level 4.4 MEQ/L Chloride Level 98 MEQ/L Carbon Dioxide Level 25.1 MEQ/L Anion Gap 12 MEQ/L Blood Urea Nitrogen 22 MG/DL Creatinine 0.80 MG/DL Estimat Glomerular Filtration 92 ML/MIN Rate Random Glucose 209 MG/DL Calcium Level 8.5 MG/DL Phosphorus Level 2.4 MG/DL Magnesium Level 2.6 MG/DL Albumin 2.7 GM/DL Imaging Last Impressions Chest X-Ray 09/26/16 0600 Signed Impressions: Service Date/Time: Monday, September 26, 2016 06:09 - CONCLUSION: Limited study due to the obliquity. Clear lungs. Henri Shirley Jr., MD Abdomen X-Ray 09/24/16 0000 Signed Impressions: Service Date/Time: Saturday, September 24, 2016 05:27 - CONCLUSION: Adequate placement of PEG tube. Justyn Bourgeois MD Upper Extremity Ultrasound 09/07/16 0000 Signed Impressions: Service Date/Time: August 09:28 - CONCLUSION: Cephalic vein thrombosis. K. Marquis Da Silva MD Abdomen Ultrasound 09/03/16 0000 Signed Impressions: Service Date/Time: Saturday, September 03, 2016 15:21 - CONCLUSION: 1. No acute findings. Exam somewhat limited by overlying bowel gas. Mina Varghese MD Physical Exam CONSTITUTIONAL/GENERAL: Opens eyes to touch, on Tpiece SKIN: No jaundice, rashes, or lesions. Warm and dry EYES: No scleral icterus. No injection or drainage. NECK: Trachea midline. Supple, nontender. Trach collar in place , site OK, minimal secretions CARDIOVASCULAR: Regular rate and rhythm without murmurs, gallops, or rubs. RESPIRATORY/CHEST: fairly clear today to auscultation. GASTROINTESTINAL: Abdomen soft, no reaction to palpation. mildly distended. Bowel sounds present. Dignishield in place with liquid brown stool PEG in place GENITOURINARY: Without palpable bladder distension. Lennon catheter in place with clear yellow urine MUSCULOSKELETAL: Extremities without clubbing, cyanosis, trace edema. No joint effusion noted. No mottling. contracted pt NEUROLOGICAL: Not responding - at baseline PSYCHIATRIC: unable to assess LINE no evidence of infection Assessment & Plan Remarks Bacteriia/funguria Persistent tracheobronchitis, - low grade fevers - Persistently colonised with MDROs - previously MDRO Acietobacter in sputum Respiratory failure, has chronic trach - currently on T-piece, but breathing looks laboured or unusual Advanced Dementia Diarrhea, ho recent abx use; C.diff negative MDRO colionisation of urine clx with KLEBSIELLA PNEUMONIAE ESBL POS, only S to tetracycline - repeat UA with new lennon is not cw infx to suggest fever source PLAN monitor clinically monitor temps fu US BLE /BUE results repeat CXR, sputum clx dw Dr Génesis gauthier RN Elle Singletary MD October 03, 2016 14:34
--- NOTE | 2016-10-03 15:06 | RADRPT ---
EXAM DATE/TIME: 10/03/2016 14:43 [facility] COMPARISON: CHEST SINGLE AP, September 26, 2016, 6:09. INDICATIONS : Cough; shortness of breath. MEDICAL HISTORY : Hypertension. Sepsis. Dementia. SURGICAL HISTORY : None. ENCOUNTER: Subsequent ACUITY: 2 weeks PAIN SCORE: Non-responsive. LOCATION: Bilateral chest FINDINGS: A single view of the chest demonstrates the lungs to be symmetrically aerated without evidence of mas s, infiltrate or effusion. Tracheostomy tube unchanged. The cardiomediastinal contours are unremarka ble. Osseous structures are intact. CONCLUSION: No acute disease. Justyn Bourgeois MD on October 03, 2016 at 15:03 Board Certified Radiologist. This report was verified electronically.
--- NOTE | 2016-10-03 15:24 | RADRPT ---
EXAM DATE/TIME: 10/03/2016 13:37 [facility] COMPARISON: No previous studies available for comparison. INDICATIONS : Leg pain. MEDICAL HISTORY : Alzheimer's. Hypertension. Benign prostatic hyperplasia, (BPH) Syncope. Dementia. RESP MRSA. Dyspnea. Constipation. SURGICAL HISTORY : Prostatectomy. Tracheostomy. ENCOUNTER: Initial ACUITY: 1 day PAIN SCORE: Non-responsive LOCATION: Bilateral leg. TECHNIQUE: Venous ultrasound of the left and right leg was performed from the inguinal ligament to the proximal calf. Real-time, color Doppler and spectral tracing, compression and augmentation techniques were us ed. FINDINGS: RIGHT LEG: There is thrombus in the right common femoral vein and superficial femoral vein. LEFT LEG: There is noncompressibility of common femoral vein, popliteal vein compared to vein and posterior tib ial veins. CONCLUSION: 1. Deep venous thrombosis in the right leg. 2. Noncompressibility of multiple veins in the left leg. Thrombus cannot be excluded. Justyn Bourgeois MD on October 03, 2016 at 15:19 Board Certified Radiologist. This report was verified electronically.
--- NOTE | 2016-10-03 15:28 | RADRPT ---
EXAM DATE/TIME: 10/03/2016 13:37 [facility] COMPARISON: No previous studies available for comparison. INDICATIONS : Arm pain. MEDICAL HISTORY : Alzheimer's. Hypertension. Benign prostatic hyperplasia, (BPH) Syncope. Dementia. RESP MRSA. Dyspnea. Constipation. SURGICAL HISTORY : Prostatectomy. Tracheostomy. ENCOUNTER: Initial ACUITY: 1 day PAIN SCORE: Non-responsive LOCATION: Bilateral arm. FINDINGS: Examination is limited secondary to the patient's contracted state. Examination left upper extremity demonstrates no evidence of venous thrombosis though the axillary and basilic veins are limited in ev aluation. Examination right upper extremity is severely limited secondary to the patient's condition and no ihsan gnostic evaluation can be performed. CONCLUSION: 1. Limited examination without thrombus on the left. 2. Nondiagnostic evaluation of the right Rachid Lopez MD on October 03, 2016 at 15:24 Board Certified Radiologist. This report was verified electronically.
[2016-10-03 18:29] LABS: ALKALINE PHOSPHATASE 87 U/L (45-117); TOTAL BILIRUBIN ADULT 0.6 MG/DL (0.2-1.0)
--- NOTE | 2016-10-03 18:58 | HHI.PR ---
Subjective Remarks patient seen today around 1 PM. No acute changes. Continues nonverbal. Discussed with Dr. Burris. Mckeon exchange, with repeat urinalysis and culture. Objective Vital Signs Date Time Temp Pulse Resp B/P Pulse Ox O2 Delivery O2 Flow Rate FiO2 10/03/16 18:06 98 T-piece 6.00 28 10/03/16 16:00 98.8 115 20 145/87 98 10/03/16 12:00 99.9 103 20 114/60 99 10/03/16 09:50 98 T-piece 5.00 28 10/03/16 09:50 98 T-piece 5.00 28 10/03/16 08:00 97.8 100 20 127/70 100 10/03/16 07:00 100 T-Piece 28 10/03/16 07:00 100 10/03/16 04:18 99.2 97 18 114/63 98 10/03/16 04:06 100 T-piece 6.00 28 10/03/16 00:32 104 10/03/16 00:20 99.4 101 18 115/69 97 10/02/16 20:29 100.0 109 20 143/75 99 10/02/16 20:18 99 T-piece 28 10/02/16 20:18 99 28 10/02/16 20:00 100 T-Piece 28 I/O 10/02/16 10/02/16 10/02/16 10/03/16 10/03/16 10/03/16 07:00 15:00 23:00 07:00 15:00 23:00 Output Total 400 ml 200 ml 350 ml 550 ml Balance -400 ml -200 ml -350 ml -550 ml Output Urine Total 400 ml 200 ml 350 ml 550 ml Result Diagram: 10/02/16 0637 10/02/16 0637 Imaging Last Impressions Upper Extremity Ultrasound 10/03/16 0000 Signed Impressions: Service Date/Time: Monday, October 03, 2016 13:37 - CONCLUSION: 1. Limited examination without thrombus on the left. 2. Nondiagnostic evaluation of the right Rachid Lopez MD Lower Extremity Ultrasound 10/03/16 0000 Signed Impressions: Service Date/Time: Monday, October 03, 2016 13:37 - CONCLUSION: 1. Deep venous thrombosis in the right leg. 2. Noncompressibility of multiple veins in the left leg. Thrombus cannot be excluded. Justyn Bourgeois MD Chest X-Ray 10/03/16 0000 Signed Impressions: Service Date/Time: Monday, October 03, 2016 14:43 - CONCLUSION: No acute disease. Justyn Bourgeois MD Abdomen X-Ray 09/24/16 0000 Signed Impressions: Service Date/Time: Saturday, September 24, 2016 05:27 - CONCLUSION: Adequate placement of PEG tube. Justyn Bourgeois MD Abdomen Ultrasound 09/03/16 0000 Signed Impressions: Service Date/Time: Saturday, September 03, 2016 15:21 - CONCLUSION: 1. No acute findings. Exam somewhat limited by overlying bowel gas. Mina Varghese MD Objective Remarks GENERAL: patient sitting in bed. Appears comfortable. Nonverbal. Noninteractive.. Exam again unchanged. SKIN: Warm and dry. stage II sacral ulcer. mepilex in place HEAD: Normocephalic. EYES: No scleral icterus. No injection or drainage. NECK: Supple, trachea midline. No JVD CARDIOVASCULAR: Regular rate and rhythm without murmurs, gallops, or rubs. RESPIRATORY: Breath sounds equal bilaterally. No accessory muscle use. GASTROINTESTINAL: Abdomen soft, non-tender, nondistended. PEG tube in place with no erythema or leakage. MUSCULOSKELETAL: No cyanosis, or edema. BACK: Nontender without obvious deformity. No CVA tenderness. A/P Assessment and Plan Mr. Amin is an 81 year old male with end stage Alzheimer's dementia, chronic respiratory failure who was brought to the hospital on 09/02/2016 due to hyperglycemia. However, on evaluation in the ER, he was found to be tachycardic , diaphoretic. He had a serum Na 160, glucose of 600, Cr 3 (baseline around 1), lactate of 3.0, wbc 17. He was febrile as well. Patient remained in the ICU until 09/25/2016 and during his ICU stay, electrolytes were corrected. Urine cx was positive for ESBL Klebsiella. ID was consulted. Patient was started on Ertapenem by ID. //Acute on Chronic respiratory failure - Continue with oxygen keep sat >92% - s/p #8 Johana percutaneous trach 06/13. (Dr. Morataya/Dr. Dai). Downsized to a # 6 Johana LENZ 08/05 - DuoNeb q6h and q2h prn, pulm toilet, trach care. Cont on T piece FIO2 28%. //Occlusive DVT -10/03 with ultrasound showing what appears to be right lower extremity DVT, multiple noncompressible veins in the left leg. Start on heparin drip, transitioned to warfarin. //UTI with ESBL organism - Patient was on Ertapenem. ID recommended watching without any abx. - Due to fever, ID re-started on Ertapenem and Diflucan on 09/27/2016. -10/02. Fevers appear to be improving. Repeat urinalysis after Mckeon exchange by IV. Discussed with ID. Appreciate assistance. Continue antibiotics. -Appreciate infectious disease assistance. Fevers may be secondary to DVT. Will treat for DVT as above. //Alzheimer's dementia - Acetaminophen for fever/Dilaudid as needed for pain management. - Continues on Modafinil 400mg PO Qday - no significant improvement on this medication //Diabetes mellitus - Continue Levemir 15 units Q12hrs and sliding scale insulin. -09/30. Glucose again reviewed and acceptable. Continue to monitor. //Nutrition, GERD - Continue Famotidine 20mg Qday - Continue tube feed. // sacral ulcer. Appears to be stage II on further exam. Continue wound care. Wound care nurse consulted and pending. DVT prophylaxis. Heparin 5000 units Q12hrs. Discharge Planning Titrate warfarin. has been accepted to SNF.Appreciate case management assistance. Mendez Cunningham MD October 03, 2016 18:58
[2016-10-03 19:00] LABS: APTT (PATIENT) 25.7 SEC (24.3-30.1); INTERNATIONAL NORMALIZED RATIO 1.1 RATIO; PROTHROMBIN TIME - PATIENT 11.7 SEC (9.8-11.6)
[2016-10-03 19:14] LABS: ALT (GPT) 40 U/L (12-78); AST (GOT) 140 U/L (15-37)
[2016-10-03 19:15] LABS: INDIRECT BILIRUBIN LESS THAN 0.1 MG/DL (0.0-0.8)
[2016-10-03] MEDS ORDERED: WARFARIN SOD 2.5 MG TAB PO ONE (20:00)
[2016-10-03 20:03] LABS: HEMATOCRIT 35.5 % (39.0-51.0); MEAN CELL VOLUME 87.1 FL (80.0-100.0); MEAN CORPUSCULAR HGB CONC 34.5 % (32.0-36.0); PLATELET COUNT 386 TH/MM3 (150-450); RED BLOOD COUNT 4.07 MIL/MM3 (4.50-5.90); RED CELL DISTRIBUTION WIDTH 19.8 % (11.6-17.2); REVIEW FLAG FINAL; WHITE BLOOD COUNT 14.3 TH/MM3 (4.0-11.0)
[2016-10-03] MEDS: HEPARIN-D5W INJ 250 ML IV SCH (20:37)
[2016-10-03] MEDS: SODIUM CHLORIDE 0.9% FLUSH 10 ML FLUSH IV FLUSH SCH ×2 (20:42→21:06)
[2016-10-04] VITALS (8 sets, daily range): BP systolic 105–138; BP diastolic 61–81; PULSE 114–131; RESP 18–21; TEMP 98.9–100.4; O2SAT 97–100
[2016-10-04] MEDS: INSULIN NovoLIN REGULAR SUPPLEMENTAL SCALE SQ SCH ×6 (00:14→23:05)
[2016-10-04] MEDS: CHLORHEXIDINE GLUCONATE 2 % 1 PACK (2 CLOTHS) TOP SCH ×2 (04:00→22:45)
[2016-10-04] MEDS: FREE WATER G-TUBE SCH ×5 (04:58→23:22)
[2016-10-04] MEDS: METOCLOPRAMIDE HCL 10 MG/2 ML VIAL IV PUSH SCH ×3 (04:58→22:45)
[2016-10-04] MEDS: ACETAMINOPHEN 325 MG TAB PO PRN ×2 (05:05→22:44)
[2016-10-04] MEDS: INSULIN DETEMIR 100 UNITS/ML VIAL SQ SCH ×2 (09:00→22:50)
[2016-10-04] MEDS: SODIUM CHLORIDE 0.9% FLUSH 10 ML FLUSH IV FLUSH SCH ×3 (09:00→21:00)
[2016-10-04] MEDS: FAMOTIDINE 20 MG TAB NG SCH (09:39)
[2016-10-04] MEDS: SENNOSIDES SYRUP 8.8 MG/5 ML CUP PO SCH (09:39)
[2016-10-04] MEDS: DOCUSATE SODIUM 100 MG/10 ML UDC PO SCH ×2 (09:39→22:45)
[2016-10-04] MEDS: JUVEN POWDER 1 PACK G-TUBE SCH ×2 (09:40→21:00)
[2016-10-04] MEDS: NYSTATIN 100,000 U/GM PWD 15 GM BTL TOPICAL SCH ×2 (09:42→22:57)
[2016-10-04] MEDS: CHLORHEXIDINE 0.12% (ORAL KIT) 15 ML CUP MT SCH ×2 (09:43→20:00)
[2016-10-04] MEDS: MODAFINIL 200 MG TAB PO SCH (09:43)
[2016-10-04] MEDS: POVIDONE IODINE 10% SOLN 480 ML BTL TOPICAL SCH ×2 (09:43→21:00)
[2016-10-04 11:54] LABS: APTT (PATIENT) 40.6 SEC (24.3-30.1)
--- NOTE | 2016-10-04 13:13 | HHI.IDPN ---
Subjective Subjective Remarks cont to have intermittently low grade fevers with T max of 100.4 cont to have heavy secretions tolerating tube feeds cont to have persistent diarrhea US was + for DVT Antibiotics none Lines no central lines Past Medical History Reviewed Allergies: Coded Allergies: *MDRO Multi-Drug Resistant Organism (Verified Adverse Reaction, Unknown, ) MRSA (sputum) - 06/28/16, 07/12/16, 07/21/16 MRSA PCR Screen POSITIVE - 09/03/2016 ESBL K. pneumoniae (urine) - 09/02/16 & (sputum)-09/24/16 MDR-Acinetobacter (sputum)-09/08/16 Objective . Vital Signs Date Time Temp Pulse Resp B/P Pulse Ox O2 Delivery O2 Flow Rate FiO2 10/04/16 12:17 98.9 114 18 109/69 99 10/04/16 08:20 99.8 114 18 112/61 99 10/04/16 05:37 100.4 125 21 131/62 99 10/04/16 00:56 99.8 119 21 138/81 100 10/03/16 20:19 99.6 119 21 126/76 99 10/03/16 18:06 98 T-piece 6.00 28 10/03/16 16:00 98.8 115 20 145/87 98 10/03/16 10/03/16 10/04/16 15:00 23:00 07:00 Intake Total 1074 ml Output Total 550 ml 850 ml Balance -550 ml 1074 ml -850 ml Tube Feeding 1074 ml Output Urine Total 550 ml 850 ml . Laboratory Tests Test 10/03/16 19:30 White Blood Count 14.3 TH/MM3 Red Blood Count 4.07 MIL/MM3 Hemoglobin 12.2 GM/DL Hematocrit 35.5 % Mean Corpuscular Volume 87.1 FL Mean Corpuscular Hemoglobin 30.0 PG Mean Corpuscular Hemoglobin 34.5 % Concent Red Cell Distribution Width 19.8 % Platelet Count 386 TH/MM3 Mean Platelet Volume 7.6 FL Laboratory Tests Test 10/03/16 17:46 Total Bilirubin 0.6 MG/DL Direct Bilirubin 0.6 MG/DL Indirect Bilirubin LESS THAN 0.1 MG/DL Aspartate Amino Transf 140 U/L (AST/SGOT) Alanine Aminotransferase 40 U/L (ALT/SGPT) Alkaline Phosphatase 87 U/L Total Protein 8.6 GM/DL Albumin 2.7 GM/DL Imaging Last Impressions Upper Extremity Ultrasound 10/03/16 0000 Signed Impressions: Service Date/Time: Monday, October 03, 2016 13:37 - CONCLUSION: 1. Limited examination without thrombus on the left. 2. Nondiagnostic evaluation of the right Rachid Lopez MD Lower Extremity Ultrasound 10/03/16 0000 Signed Impressions: Service Date/Time: Monday, October 03, 2016 13:37 - CONCLUSION: 1. Deep venous thrombosis in the right leg. 2. Noncompressibility of multiple veins in the left leg. Thrombus cannot be excluded. Justyn Bourgeois MD Chest X-Ray 10/03/16 0000 Signed Impressions: Service Date/Time: Monday, October 03, 2016 14:43 - CONCLUSION: No acute disease. Justyn Bourgeois MD Abdomen X-Ray 09/24/16 0000 Signed Impressions: Service Date/Time: Saturday, September 24, 2016 05:27 - CONCLUSION: Adequate placement of PEG tube. Justyn Bourgeois MD Abdomen Ultrasound 09/03/16 0000 Signed Impressions: Service Date/Time: Saturday, September 03, 2016 15:21 - CONCLUSION: 1. No acute findings. Exam somewhat limited by overlying bowel gas. Mina Varghese MD Physical Exam CONSTITUTIONAL/GENERAL: Opens eyes to touch, on Tpiece SKIN: No jaundice, rashes, or lesions. Warm and dry EYES: No scleral icterus. No injection or drainage. NECK: Trachea midline. Supple, nontender. Trach collar in place , site OK, minimal secretions CARDIOVASCULAR: Regular rate and rhythm without murmurs, gallops, or rubs. RESPIRATORY/CHEST: scattred rhonchi to auscultation. GASTROINTESTINAL: Abdomen soft, no reaction to palpation. mildly distended. Bowel sounds present. Dignishield in place with liquid brown stool PEG in place GENITOURINARY: Without palpable bladder distension. Lennon catheter in place with clear yellow urine MUSCULOSKELETAL: Extremities without clubbing, cyanosis, trace edema. No joint effusion noted. No mottling. contracted pt NEUROLOGICAL: opens eyes to tactaile stimulation, not tracking - at baseline PSYCHIATRIC: unable to assess LINE no evidence of infection Assessment & Plan Remarks Persistent low grade fever - pt has new RLE DVT which is likely to contribute to the fever Bacteriia/funguria, no e/o UTI on last UA with new lennon Persistent tracheobronchitis, - low grade fevers - neg CXR - Persistently colonised with MDROs - previously MDRO Acietobacter in sputum Respiratory failure, has chronic trach - currently on T-piece, but breathing looks laboured or unusual Advanced Dementia Diarrhea, ho recent abx use; C.diff negative MDRO colonisation of urine clx with KLEBSIELLA PNEUMONIAE ESBL POS, only S to tetracycline - repeat UA with new lennon is not cw infx to suggest fever source PLAN monitor clinically monitor temps monitor WBC -if WBC /temps better OK to dc to custodial Elle Castro MD October 04, 2016 13:12
[2016-10-04] MEDS: HEPARIN-D5W INJ 250 ML IV SCH (16:49)
[2016-10-04] MEDS: WARFARIN SOD 4 MG TAB PO SCH (16:50)
[2016-10-04] MEDS ORDERED: RESP: IPRATROPIUM 0.5 MG/2.5 ML NEB NEB PRN (23:15)
--- NOTE | 2016-10-04 23:47 | HHI.PR ---
Subjective Remarks patient seen today around [place]. No acute changes. Patient nonverbal as before Continues on heparin drip for DVT, possibly PE Objective Vital Signs Date Time Temp Pulse Resp B/P Pulse Ox O2 Delivery O2 Flow Rate FiO2 10/04/16 20:00 100.3 131 20 105/70 98 10/04/16 16:00 99.6 126 18 125/75 100 10/04/16 12:17 98.9 114 18 109/69 99 10/04/16 08:20 99.8 114 18 112/61 99 10/04/16 05:37 100.4 125 21 131/62 99 10/04/16 00:56 99.8 119 21 138/81 100 I/O 10/03/16 10/03/16 10/03/16 10/04/16 10/04/16 10/04/16 07:00 15:00 23:00 07:00 15:00 23:00 Intake Total 1074 ml 200 ml Output Total 350 ml 550 ml 850 ml 350 ml 200 ml Balance -350 ml -550 ml 1074 ml -850 ml -150 ml -200 ml Tube Feeding 1074 ml Other 200 ml Output Urine Total 350 ml 550 ml 850 ml 350 ml 200 ml # Bowel Movements 0 Result Diagram: 10/03/16 1930 10/02/16 0637 Objective Remarks GENERAL: patient lying in bed. Appears comfortable. Nonverbal. Noninteractive.. Exam again unchanged. SKIN: Warm and dry. stage II sacral ulcer. mepilex in place HEAD: Normocephalic. EYES: No scleral icterus. No injection or drainage. NECK: Supple, trachea midline. No JVD CARDIOVASCULAR: Regular rate and rhythm without murmurs, gallops, or rubs. RESPIRATORY: Breath sounds equal bilaterally. No accessory muscle use. GASTROINTESTINAL: Abdomen soft, non-tender, nondistended. PEG tube in place with no erythema or leakage. MUSCULOSKELETAL: No cyanosis, or edema. BACK: Nontender without obvious deformity. No CVA tenderness. A/P Assessment and Plan Mr. Amin is an 81 year old male with end stage Alzheimer's dementia, chronic respiratory failure who was brought to the hospital on 09/02/2016 due to hyperglycemia. However, on evaluation in the ER, he was found to be tachycardic , diaphoretic. He had a serum Na 160, glucose of 600, Cr 3 (baseline around 1), lactate of 3.0, wbc 17. He was febrile as well. Patient remained in the ICU until 09/25/2016 and during his ICU stay, electrolytes were corrected. Urine cx was positive for ESBL Klebsiella. ID was consulted. Patient was started on Ertapenem by ID. //Acute on Chronic respiratory failure - Continue with oxygen keep sat >92% - s/p #8 Shiley percutaneous trach 06/13. (Dr. Morataya/Dr. Dai). Downsized to a # 6 Shiley DFEN 08/05 - DuoNeb q6h and q2h prn, pulm toilet, trach care. Cont on T piece FIO2 28%. //right lower extremityOcclusive DVT -10/03 with ultrasound showing what appears to be right lower extremity DVT, multiple noncompressible veins in the left leg. Start on heparin drip, transitioned to warfarin. -. Continue heparin drip. waiting for warfarin becomes therapeutic. //UTI with ESBL organism - Patient was on Ertapenem. ID recommended watching without any abx. - Due to fever, ID re-started on Ertapenem and Diflucan on 09/27/2016. -10/02. Fevers appear to be improving. Repeat urinalysis after Mckeon exchange by IV. Discussed with ID. Appreciate assistance. Continue antibiotics. -Appreciate infectious disease assistance. Fevers may be secondary to DVT. continue to treat for DVT as above. //Alzheimer's dementia - Acetaminophen for fever/Dilaudid as needed for pain management. - Continues on Modafinil 400mg PO Qday - no significant improvement on this medication //Diabetes mellitus - Continue Levemir 15 units Q12hrs and sliding scale insulin. -09/30. Glucose again reviewed and acceptable. -Continue to monitor. //Nutrition, GERD - Continue Famotidine 20mg Qday - Continue tube feed. // sacral ulcer. Appears to be stage II on further exam. Continue wound care. Wound care nurse consulted and pending. DVT prophylaxis. on heparin drip for DVT. Discharge Planning -Titrate warfarin. has been accepted to SNF. -we'll need ID clearance prior to discharge Appreciate case management assistance. Mendez Cunningham MD October 04, 2016 23:47
[2016-10-05] VITALS (14 sets, daily range): BP systolic 94–122; BP diastolic 52–69; PULSE 98–133; RESP 18–21; TEMP 97–100.6; O2SAT 95–100
[2016-10-05 01:41] LABS: BASOPHIL # 0.2 TH/MM3 (0-0.2); EOSINOPHIL # 0.2 TH/MM3 (0-0.4); EOSINOPHIL % 1.4 % (0.0-4.0); HEMATOCRIT 37.1 % (39.0-51.0); LYMPH % 23.3 % (9.0-44.0); LYMPHOCYTE # 3.5 TH/MM3 (1.0-4.8); MEAN CELL VOLUME 87.1 FL (80.0-100.0); MEAN CORPUSCULAR HEMOGLOBIN 29.2 PG (27.0-34.0); MEAN CORPUSCULAR HGB CONC 33.6 % (32.0-36.0); NEUT % 66.3 % (16.0-70.0); PLATELET COUNT 441 TH/MM3 (150-450); RED BLOOD COUNT 4.27 MIL/MM3 (4.50-5.90); RED CELL DISTRIBUTION WIDTH 19.6 % (11.6-17.2); WHITE BLOOD COUNT 15.1 TH/MM3 (4.0-11.0)
[2016-10-05 01:42] LABS: HEMO FLAGS AUTO DIFF
[2016-10-05 02:12] LABS: ALKALINE PHOSPHATASE 94 U/L (45-117); ANION GAP 8 MEQ/L (5-15); BICARBONATE 25.8 MEQ/L (21.0-32.0); BLOOD UREA NITROGEN 36 MG/DL (7-18); CHLORIDE 103 MEQ/L (98-107); GLOMERULAR FILTRATION RATE 72 ML/MIN (>89); MAGNESIUM 2.6 MG/DL (1.5-2.5); SODIUM (NA) 137 MEQ/L (136-145); TOTAL BILIRUBIN ADULT 0.6 MG/DL (0.2-1.0)
[2016-10-05 02:13] LABS: POTASSIUM 4.9 MEQ/L (3.5-5.1)
[2016-10-05 02:41] LABS: BANDS 1 % (0-6); BASOPHILS 1 % (0-2); CORRECTED NUCLEATED RBC 1 /100 WBC (0-0); MYELOCYTES 1 % (0-0); NEUTROPHIL # MANUAL DIFF 12.2 TH/MM3 (1.8-7.7); POLYS (SEG NEUTROPHILS) 79 % (16-70); SCAN/DIFF FINAL DIFF MANUAL; WBC DIFF SAMPLE 100
[2016-10-05 02:43] LABS: PLATELET ESTIMATE SMEAR HIGH (NORMAL); PLATELET MORPHOLOGY NORMAL (NORMAL)
[2016-10-05 02:44] LABS: POLYCHROMASIA 2.4 % (0.0-1.9)
[2016-10-05] MEDS: INSULIN NovoLIN REGULAR SUPPLEMENTAL SCALE SQ SCH ×5 (04:41→15:48)
[2016-10-05] MEDS: FREE WATER G-TUBE SCH ×3 (04:49→18:00)
[2016-10-05] MEDS: METOCLOPRAMIDE HCL 10 MG/2 ML VIAL IV PUSH SCH ×3 (06:00→22:00)
[2016-10-05] MEDS: CHLORHEXIDINE 0.12% (ORAL KIT) 15 ML CUP MT SCH ×2 (08:00→20:00)
[2016-10-05] MEDS: JUVEN POWDER 1 PACK G-TUBE SCH ×2 (09:00→21:00)
[2016-10-05] MEDS: POVIDONE IODINE 10% SOLN 480 ML BTL TOPICAL SCH ×2 (09:00→21:00)
[2016-10-05 09:09] LABS: AUTOMATED NEUTROPHIL # 9.5 TH/MM3 (1.8-7.7); BASOPHIL # 0.1 TH/MM3 (0-0.2); BASOPHIL % 0.7 % (0.0-2.0); EOSINOPHIL # 0.3 TH/MM3 (0-0.4); EOSINOPHIL % 2.5 % (0.0-4.0); HEMATOCRIT 34.5 % (39.0-51.0); LYMPH % 20.6 % (9.0-44.0); LYMPHOCYTE # 2.9 TH/MM3 (1.0-4.8); MEAN CELL VOLUME 86.7 FL (80.0-100.0); MEAN CORPUSCULAR HEMOGLOBIN 28.7 PG (27.0-34.0); MEAN CORPUSCULAR HGB CONC 33.1 % (32.0-36.0); NEUT % 68.2 % (16.0-70.0); PLATELET COUNT 401 TH/MM3 (150-450); RED BLOOD COUNT 3.98 MIL/MM3 (4.50-5.90); RED CELL DISTRIBUTION WIDTH 19.4 % (11.6-17.2); WHITE BLOOD COUNT 13.8 TH/MM3 (4.0-11.0)
[2016-10-05 09:12] LABS: INTERNATIONAL NORMALIZED RATIO 1.1 RATIO; PROTHROMBIN TIME - PATIENT 12.1 SEC (9.8-11.6)
[2016-10-05 09:13] LABS: HEMO FLAGS AUTO DIFF
[2016-10-05 09:54] LABS: BANDS 6 % (0-6); EOSINOPHILS 6 % (0-4); NEUTROPHIL # MANUAL DIFF 10.5 TH/MM3 (1.8-7.7); PLATELET ESTIMATE SMEAR NORMAL (NORMAL); PLATELET MORPHOLOGY NORMAL (NORMAL); POLYS (SEG NEUTROPHILS) 70 % (16-70); SCAN/DIFF FINAL DIFF MANUAL; WBC DIFF SAMPLE 100
[2016-10-05] MEDS: SENNOSIDES SYRUP 8.8 MG/5 ML CUP PO SCH (10:07)
[2016-10-05] MEDS: DOCUSATE SODIUM 100 MG/10 ML UDC PO SCH ×2 (10:07→21:00)
[2016-10-05] MEDS: FAMOTIDINE 20 MG TAB NG SCH (10:08)
[2016-10-05] MEDS: SODIUM CHLORIDE 0.9% FLUSH 10 ML FLUSH IV FLUSH SCH (10:08)
[2016-10-05] MEDS: MODAFINIL 200 MG TAB PO SCH (10:08)
[2016-10-05] MEDS: NYSTATIN 100,000 U/GM PWD 15 GM BTL TOPICAL SCH ×2 (10:09→21:00)
[2016-10-05] MEDS: INSULIN DETEMIR 100 UNITS/ML VIAL SQ SCH (10:12)
[2016-10-05 10:16] LABS: AST (GOT) 71 U/L (15-37)
[2016-10-05 10:17] LABS: ALT (GPT) 33 U/L (12-78)
[2016-10-05 10:18] LABS: BICARBONATE 26.2 MEQ/L (21.0-32.0); MAGNESIUM 2.7 MG/DL (1.5-2.5); POTASSIUM 4.6 MEQ/L (3.5-5.1)
--- NOTE | 2016-10-05 13:46 | HHI.PR ---
Subjective Remarks Follow up for chronic respiratory failure, end stage Alzheimer's dementia. Patient is aphasic, does not participate in care. Pt sleeping at time of visit and did not awaken during examination. Discussed pt with nurse who reported pt having fevers over the course of the past 24 hours. She noted ice packs had been effective in temporarily reducing the fevers. No other issues were noted or reported. Objective Vitals Vital Signs Date Time Temp Pulse Resp B/P Pulse Ox O2 Delivery O2 Flow Rate FiO2 10/05/16 11:55 99.8 104 21 118/63 98 10/05/16 10:00 100 Trach Collar 28 10/05/16 09:36 100 T-piece 28 10/05/16 09:36 100 T-piece 28 10/05/16 07:45 100.0 109 21 115/59 100 10/05/16 06:01 107 10/05/16 04:00 97.6 117 20 117/69 100 10/05/16 02:17 123 10/05/16 02:15 123 10/05/16 02:05 98.5 10/05/16 01:37 99.6 10/05/16 00:00 100.6 133 20 122/64 97 10/04/16 23:58 97 T-piece 6.00 28 10/04/16 21:58 98 T-piece 5.00 28 10/04/16 21:58 98 T-piece 5.00 28 10/04/16 20:00 100.3 131 20 105/70 98 10/04/16 16:00 99.6 126 18 125/75 100 I/O 10/04/16 10/04/16 10/04/16 10/05/16 10/05/16 10/05/16 07:00 15:00 23:00 07:00 15:00 23:00 Intake Total 200 ml Output Total 850 ml 350 ml 200 ml 400 ml 1000 ml Balance -850 ml -150 ml -200 ml -400 ml -1000 ml Other 200 ml Output Urine Total 850 ml 350 ml 200 ml 400 ml Stool Total 1000 ml # Bowel Movements 0 0 Result Diagram: 10/05/16 0852 10/05/16 0852 Imaging Last Impressions Upper Extremity Ultrasound 10/03/16 0000 Signed Impressions: Service Date/Time: Monday, October 03, 2016 13:37 - CONCLUSION: 1. Limited examination without thrombus on the left. 2. Nondiagnostic evaluation of the right Rachid Lopez MD Lower Extremity Ultrasound 10/03/16 0000 Signed Impressions: Service Date/Time: Monday, October 03, 2016 13:37 - CONCLUSION: 1. Deep venous thrombosis in the right leg. 2. Noncompressibility of multiple veins in the left leg. Thrombus cannot be excluded. Justyn Bourgeois MD Chest X-Ray 10/03/16 0000 Signed Impressions: Service Date/Time: Monday, October 03, 2016 14:43 - CONCLUSION: No acute disease. Justyn Bourgeois MD Abdomen X-Ray 09/24/16 0000 Signed Impressions: Service Date/Time: Saturday, September 24, 2016 05:27 - CONCLUSION: Adequate placement of PEG tube. Justyn Bourgeois MD Abdomen Ultrasound 09/03/16 0000 Signed Impressions: Service Date/Time: Saturday, September 03, 2016 15:21 - CONCLUSION: 1. No acute findings. Exam somewhat limited by overlying bowel gas. Mina Varghese MD Objective Remarks GENERAL: Pt laying a bed, sleeping in position on his right side, softly snoring, in not acute distress. SKIN: Warm and dry. HEAD: Normocephalic. EYES: eyes closed no overt signs of drainage. NECK: Supple, trachea midline. T-piece in place. CARDIOVASCULAR: Regular rate and rhythm without murmurs, gallops, or rubs. RESPIRATORY: Breath sounds equal bilaterally. No accessory muscle use. GASTROINTESTINAL: Abdomen soft, non-tender, nondistended. Bowel sounds present all quadrants. MUSCULOSKELETAL: No cyanosis, or edema. Both feet in boots. PSYCHIATRIC: pt sleeping, calm. Procedures None. Medications and IVs Current Medications Medications (Trade) Dose Ordered Sig/Estefany Route Start Time Stop Time Status Last Admin (NS Flush) 2 ml UNSCH PRN IV FLUSH 09/02/16 23:30 09/13/16 22:01 (NS Flush) 2 ml BID IV FLUSH 09/03/16 09:00 10/05/16 10:08 (Tylenol) 650 mg Q6H PRN PO 09/02/16 23:30 10/04/16 22:44 (Zofran Inj) 4 mg Q6H PRN IV 09/02/16 23:30 Miscellaneous Information 1 Q361D XX 09/02/16 23:30 (Chlorhexidine 2% Cloth) Taper DAILY@04 TOP 09/03/16 04:00 08/30/17 03:59 09/26/16 04:30 (Chlorhexidine 2% Cloth) 3 pack UNSCH PRN TOP 09/02/16 23:30 (Provigil) 400 mg DAILY PO 09/03/16 09:00 10/05/16 10:08 (D50w (Vial) Inj) 25 ml UNSCH PRN IV PUSH 09/03/16 07:45 (Glucagon Inj) 1 mg UNSCH PRN OTHER 09/03/16 07:45 (NovoLIN R SUPPLEMENTAL SCALE) 1 Q4HR SQ 09/03/16 08:00 10/05/16 11:49 (Dilaudid Pf Inj) 0.5 mg Q4H PRN IV PUSH 09/03/16 09:30 09/24/16 04:25 (Pepcid) 20 mg DAILY NG 09/04/16 09:00 10/05/16 10:08 (Levemir Inj) 15 units Q12HR SQ 09/04/16 21:00 10/05/16 10:12 (Peridex 0.12% Liq) 15 ml BID@08,20 MT 09/06/16 20:00 10/05/16 08:00 (Reglan Inj) 5 mg Q8HR IV PUSH 09/12/16 14:00 10/05/16 06:00 (Betadine 10% Top Soln) 1 applic BID TOPICAL 09/12/16 21:00 10/04/16 21:00 (Nathan Powder) 1 pack BID G-TUBE 09/15/16 21:00 10/05/16 09:00 (Free Water) 200 ml Q6HR G-TUBE 09/16/16 00:00 10/05/16 10:10 (Colace Liq) 100 mg Q12HR PO 09/20/16 21:00 10/05/16 10:07 (Senna Liq) 8.8 mg DAILY PO 09/21/16 09:00 10/05/16 10:07 Nystatin 1 applic 1 applic Q12HR TOPICAL 09/20/16 21:00 10/05/16 10:09 Heparin Sodium/ Dextrose 250 ml @ 0 mls/hr TITRATE IV 10/03/16 18:30 10/04/16 16:49 (Coumadin Consult Pharmacy) 0 ml @ 0 mls/hr UNSCH OTHER 10/03/16 18:30 (Coumadin) 4 mg DAILY@16 PO 10/04/16 16:00 10/04/16 16:50 Urinary Catheter: Yes Assessment to: Continue Mckeon insert reason: Prolonged Immobilization A/P Assessment and Plan Mr. Amin is an 81 year old male with end stage Alzheimer's dementia, chronic respiratory failure who was brought to the hospital on 09/02/2016 due to hyperglycemia. However, on evaluation in the ER, he was found to be tachycardic , diaphoretic. He had a serum Na 160, glucose of 600, Cr 3 (baseline around 1), lactate of 3.0, wbc 17. He was febrile as well. Patient remained in the ICU until 09/25/2016 and during his ICU stay, electrolytes were corrected. Urine cx was positive for ESBL Klebsiella. ID was consulted. Patient was started on Ertapenem by ID. //Acute on Chronic respiratory failure - Continue with oxygen keep sat >92% - s/p #8 Shiley percutaneous trach 06/13. (Dr. Morataya/Dr. Dai). Downsized to a # 6 Shiley DFEN 08/05 - DuoNeb q6h and q2h prn, pulm toilet, trach care. Cont on T piece FIO2 28%. //right lower extremity Occlusive DVT -10/03 with ultrasound showing what appears to be right lower extremity DVT, multiple noncompressible veins in the left leg. Start on heparin drip, transitioned to warfarin. -. Continue heparin drip. waiting for warfarin becomes therapeutic. 10/05. INR was noted to be 40.6, management per protocol.WBC is elevated for past two days, yet decreased this morning. Suspect elevation related to DVT. Monitor. //UTI with ESBL organism - Patient was on Ertapenem. ID recommended watching without any abx. - Due to fever, ID re-started on Ertapenem and Diflucan on 09/27/2016. -10/02. Fevers appear to be improving. Repeat urinalysis after Mckeon exchange by IV. Discussed with ID. Appreciate assistance. Continue antibiotics. -Appreciate infectious disease assistance. Fevers may be secondary to DVT. continue to treat for DVT as above. //Alzheimer's dementia - Acetaminophen for fever/Dilaudid as needed for pain management. - Continues on Modafinil 400mg PO Qday - no significant improvement on this medication //Diabetes mellitus - Continue Levemir 15 units Q12hrs and sliding scale insulin. -09/30. Glucose again reviewed and acceptable. -Continue to monitor. -10/05: Finger sticks to be changed to every 6 hours as he has been checked every 4 hours (ICU schedule). //Nutrition, GERD - Continue Famotidine 20mg Qday - Continue tube feed. // sacral ulcer. Appears to be stage II on further exam. Continue wound care. Wound care nurse consulted and pending. DVT prophylaxis. on heparin drip for DVT. Discharge Planning -Titrate warfarin. has been accepted to SNF. -we'll need ID clearance prior to discharge Appreciate case management assistance. Sean Magana Jr. October 05, 2016 13:46
[2016-10-05] MEDS: WARFARIN SOD 4 MG TAB PO SCH (14:52)
[2016-10-05] MEDS: HEPARIN-D5W INJ 250 ML IV SCH (15:52)
[2016-10-05] MEDS ORDERED: WARFARIN SOD 4 MG TAB G-TUBE SCH (16:00)
[2016-10-05] MEDS ORDERED: WARFARIN SOD 2 MG TAB G-TUBE SCH (17:00)
[2016-10-06] VITALS (8 sets, daily range): BP systolic 108–136; BP diastolic 56–87; PULSE 106–115; RESP 18–22; TEMP 96.6–98.8; O2SAT 98–100
[2016-10-06] MEDS: INSULIN DETEMIR 100 UNITS/ML VIAL SQ SCH ×3 (01:04→21:33)
[2016-10-06] MEDS: CHLORHEXIDINE GLUCONATE 2 % 1 PACK (2 CLOTHS) TOP SCH (01:05)
[2016-10-06] MEDS: FREE WATER G-TUBE SCH ×5 (01:05→23:45)
[2016-10-06] MEDS: SODIUM CHLORIDE 0.9% FLUSH 10 ML FLUSH IV FLUSH SCH ×3 (01:07→21:17)
[2016-10-06] MEDS: INSULIN NovoLIN REGULAR SUPPLEMENTAL SCALE SQ SCH ×7 (04:43→23:43)
[2016-10-06] MEDS: METOCLOPRAMIDE HCL 10 MG/2 ML VIAL IV PUSH SCH ×3 (06:00→21:17)
[2016-10-06] MEDS: CHLORHEXIDINE 0.12% (ORAL KIT) 15 ML CUP MT SCH ×2 (08:00→21:19)
[2016-10-06] MEDS: SENNOSIDES SYRUP 8.8 MG/5 ML CUP PO SCH (08:12)
[2016-10-06] MEDS: DOCUSATE SODIUM 100 MG/10 ML UDC PO SCH ×2 (08:12→21:17)
[2016-10-06] MEDS: FAMOTIDINE 20 MG TAB NG SCH (08:13)
[2016-10-06] MEDS: MODAFINIL 200 MG TAB PO SCH (08:13)
[2016-10-06] MEDS: JUVEN POWDER 1 PACK G-TUBE SCH ×2 (08:14→21:18)
[2016-10-06] MEDS: POVIDONE IODINE 10% SOLN 480 ML BTL TOPICAL SCH ×2 (08:15→21:19)
[2016-10-06] MEDS: NYSTATIN 100,000 U/GM PWD 15 GM BTL TOPICAL SCH ×2 (08:15→21:19)
[2016-10-06 09:19] LABS: HEMATOCRIT 31.3 % (39.0-51.0); MEAN CELL VOLUME 86.1 FL (80.0-100.0); MEAN CORPUSCULAR HEMOGLOBIN 29.6 PG (27.0-34.0); MEAN CORPUSCULAR HGB CONC 34.4 % (32.0-36.0); PLATELET COUNT 377 TH/MM3 (150-450); RED BLOOD COUNT 3.64 MIL/MM3 (4.50-5.90); RED CELL DISTRIBUTION WIDTH 19.9 % (11.6-17.2); REVIEW FLAG FINAL; WHITE BLOOD COUNT 10.2 TH/MM3 (4.0-11.0)
[2016-10-06 09:29] LABS: INTERNATIONAL NORMALIZED RATIO 1.1 RATIO; PROTHROMBIN TIME - PATIENT 12.1 SEC (9.8-11.6)
[2016-10-06 09:33] LABS: APTT (PATIENT) 40.4 SEC (24.3-30.1)
[2016-10-06] MEDS ORDERED: HYOSCYAMINE SOLN 0.125 MG/ML 15 ML BTL PO PRN (12:45)
--- NOTE | 2016-10-06 12:49 | HHI.PR ---
Subjective Remarks Follow up for chronic respiratory failure, end stage Alzheimer's dementia. Patient is aphasic, does not participate in care. Pt awake at time of visit and did not meaningfully interact with clinician. Discussed pt with nurse who reported having thick secretions (sputum) this morning requiring suctioning several times. RN also reported pt has three wounds to the back being followed by wound care as well as "deep tissue injuries" to the toes being treated with Betadine RN reported peg tube had been clogged and she was able to address the issue yet reported some "resistance" was still present. No other issues were noted or reported. Objective Vitals Vital Signs Date Time Temp Pulse Resp B/P Pulse Ox O2 Delivery O2 Flow Rate FiO2 10/06/16 09:15 99 T-piece 28 10/06/16 09:15 99 T-piece 28 10/06/16 07:45 98.8 109 22 125/56 98 10/06/16 04:00 97.0 114 18 121/87 98 10/06/16 00:00 98.7 112 20 109/75 98 10/05/16 20:00 97.0 109 18 94/52 95 10/05/16 18:01 100 T-piece 6.00 28 10/05/16 18:00 100 T-piece 6.00 28 10/05/16 15:45 98.7 98 21 98/57 100 I/O 10/05/16 10/05/16 10/05/16 10/06/16 10/06/16 10/06/16 07:00 15:00 23:00 07:00 15:00 23:00 Intake Total 483 ml 200 ml Output Total 400 ml 1300 ml 700 ml Balance -400 ml -817 ml 200 ml -700 ml Tube Feeding 283 ml Other 200 ml 200 ml Output Urine Total 400 ml 300 ml 700 ml Stool Total 1000 ml # Bowel Movements 0 Result Diagram: 10/06/16 0841 10/05/16 0852 Imaging Last Impressions Upper Extremity Ultrasound 10/03/16 0000 Signed Impressions: Service Date/Time: Monday, October 03, 2016 13:37 - CONCLUSION: 1. Limited examination without thrombus on the left. 2. Nondiagnostic evaluation of the right Rachid Lopez MD Lower Extremity Ultrasound 10/03/16 0000 Signed Impressions: Service Date/Time: Monday, October 03, 2016 13:37 - CONCLUSION: 1. Deep venous thrombosis in the right leg. 2. Noncompressibility of multiple veins in the left leg. Thrombus cannot be excluded. Justyn Bourgeois MD Chest X-Ray 10/03/16 0000 Signed Impressions: Service Date/Time: Monday, October 03, 2016 14:43 - CONCLUSION: No acute disease. Justyn Bourgeois MD Abdomen X-Ray 09/24/16 0000 Signed Impressions: Service Date/Time: Saturday, September 24, 2016 05:27 - CONCLUSION: Adequate placement of PEG tube. Justyn Bourgeois MD Abdomen Ultrasound 09/03/16 0000 Signed Impressions: Service Date/Time: Saturday, September 03, 2016 15:21 - CONCLUSION: 1. No acute findings. Exam somewhat limited by overlying bowel gas. Mina Varghese MD Objective Remarks GENERAL: Pt laying a bed, in upright position, observed to be looking straight ahead, not in acute distress. SKIN: Warm and dry. HEAD: Normocephalic. EYES: eyes open without injection or discharge; non-icteric. NECK: Supple, trachea midline. T-piece in place. CARDIOVASCULAR: Regular rate and rhythm without murmurs, gallops, or rubs. RESPIRATORY: Breath sounds equal bilaterally. No accessory muscle use. GASTROINTESTINAL: Abdomen soft, non-tender, nondistended. Bowel sounds present all quadrants. MUSCULOSKELETAL: No cyanosis, or edema. Both feet in boots. PSYCHIATRIC: pt awake, non-interactive. Procedures None. A/P Assessment and Plan Mr. Amin is an 81 year old male with end stage Alzheimer's dementia, chronic respiratory failure who was brought to the hospital on 09/02/2016 due to hyperglycemia. However, on evaluation in the ER, he was found to be tachycardic , diaphoretic. He had a serum Na 160, glucose of 600, Cr 3 (baseline around 1), lactate of 3.0, wbc 17. He was febrile as well. Patient remained in the ICU until 09/25/2016 and during his ICU stay, electrolytes were corrected. Urine cx was positive for ESBL Klebsiella. ID was consulted. Patient was started on Ertapenem by ID. //Acute on Chronic respiratory failure - Continue with oxygen keep sat >92% - s/p #8 Shiley percutaneous trach 1/24. (Dr. Morataya/Dr. Dai). Downsized to a # 6 Johana LENZ 08/05 - DuoNeb q6h and q2h prn, pulm toilet, trach care. Cont on T piece FIO2 28%. -Due to thick secretions being reported today (10/07/19) Will order Levsin. //right lower extremity Occlusive DVT -10/03 with ultrasound showing what appears to be right lower extremity DVT, multiple noncompressible veins in the left leg. Start on heparin drip, transitioned to warfarin. -. Continue heparin drip. waiting for warfarin becomes therapeutic. 10/05. INR was noted to be 40.6, management per protocol.WBC is elevated for past two days, yet decreased this morning. Suspect elevation related to DVT. Monitor. 10/06 INR noted to be 40.6, management per protocol. WBC have dropped to normal limits. pt is receiving Coumadin 4 mg through his G tube. //UTI with ESBL organism - Patient was on Ertapenem. ID recommended watching without any abx. - Due to fever, ID re-started on Ertapenem and Diflucan on 09/27/2016. -10/02. Fevers appear to be improving. Repeat urinalysis after Mckeon exchange by IV. Discussed with ID. Appreciate assistance. Continue antibiotics. -Appreciate infectious disease assistance. Fevers may be secondary to DVT. continue to treat for DVT as above. //Alzheimer's dementia - Acetaminophen for fever/Dilaudid as needed for pain management. - Continues on Modafinil 400mg PO Qday - no significant improvement on this medication //Diabetes mellitus - Continue Levemir 15 units Q12hrs and sliding scale insulin. -09/30. Glucose again reviewed and acceptable. -Continue to monitor. -10/05: Finger sticks to be changed to every 6 hours as he has been checked every 4 hours (ICU schedule). //Nutrition, GERD - Continue Famotidine 20mg Qday - Continue tube feed. // sacral ulcer. Appears to be stage II on further exam. Continue wound care. -10/06 Wounds reported by nursing are [id number] on right side of back, 5cmx4 cm on left side of back, and a 7cmx5 cm sacral wound. Wound care is treating. DVT prophylaxis. on heparin drip for DVT. Discharge Planning -Titrate warfarin. has been accepted to SNF. -we'll need ID clearance prior to discharge Appreciate case management assistance. Sean Magana Jr. HUNTER October 06, 2016 12:49
[2016-10-06] MEDS: HEPARIN-D5W INJ 250 ML IV SCH (13:14)
[2016-10-06 14:57] LABS: APTT (PATIENT) 27.2 SEC (24.3-30.1)
--- NOTE | 2016-10-06 17:54 | HHI.IDPN ---
Subjective Subjective Remarks pt started on heparin No fevers WBC down Antibiotics none Lines no central lines Past Medical History Reviewed Allergies: Coded Allergies: *MDRO Multi-Drug Resistant Organism (Verified Adverse Reaction, Unknown, ) MRSA (sputum) - 06/28/16, 07/12/16, 07/21/16 MRSA PCR Screen POSITIVE - 09/03/2016 ESBL K. pneumoniae (urine) - 09/02/16 & (sputum)-09/24/16 MDR-Acinetobacter (sputum)-09/08/16 Objective . Vital Signs Date Time Temp Pulse Resp B/P Pulse Ox O2 Delivery O2 Flow Rate FiO2 10/06/16 11:35 98.8 115 22 108/57 99 10/06/16 09:15 99 T-piece 28 10/06/16 09:15 99 T-piece 28 10/06/16 07:45 98.8 109 22 125/56 98 10/06/16 04:00 97.0 114 18 121/87 98 10/06/16 00:00 98.7 112 20 109/75 98 10/05/16 20:00 97.0 109 18 94/52 95 10/05/16 18:01 100 T-piece 6.00 28 10/05/16 18:00 100 T-piece 6.00 28 10/05/16 10/05/16 10/06/16 15:00 23:00 07:00 Intake Total 483 ml 200 ml Output Total 1300 ml 700 ml Balance -817 ml 200 ml -700 ml Tube Feeding 283 ml Other 200 ml 200 ml Output Urine Total 300 ml 700 ml Stool Total 1000 ml . Laboratory Tests Test 10/05/16 10/05/16 10/06/16 01:25 08:52 08:41 White Blood Count 15.1 TH/MM3 13.8 TH/MM3 10.2 TH/MM3 Red Blood Count 4.27 MIL/MM3 3.98 MIL/MM3 3.64 MIL/MM3 Hemoglobin 12.5 GM/DL 11.4 GM/DL 10.8 GM/DL Hematocrit 37.1 % 34.5 % 31.3 % Mean Corpuscular Volume 87.1 FL 86.7 FL 86.1 FL Mean Corpuscular Hemoglobin 29.2 PG 28.7 PG 29.6 PG Mean Corpuscular Hemoglobin 33.6 % 33.1 % 34.4 % Concent Red Cell Distribution Width 19.6 % 19.4 % 19.9 % Platelet Count 441 TH/MM3 401 TH/MM3 377 TH/MM3 Mean Platelet Volume 7.5 FL 7.6 FL 8.0 FL Neutrophils (%) (Auto) 66.3 % 68.2 % Lymphocytes (%) (Auto) 23.3 % 20.6 % Monocytes (%) (Auto) 8.0 % 8.0 % Eosinophils (%) (Auto) 1.4 % 2.5 % Basophils (%) (Auto) 1.0 % 0.7 % Neutrophils # (Auto) 10.0 TH/MM3 9.5 TH/MM3 Lymphocytes # (Auto) 3.5 TH/MM3 2.9 TH/MM3 Monocytes # (Auto) 1.2 TH/MM3 1.1 TH/MM3 Eosinophils # (Auto) 0.2 TH/MM3 0.3 TH/MM3 Basophils # (Auto) 0.2 TH/MM3 0.1 TH/MM3 CBC Comment AUTO DIFF AUTO DIFF Differential Total Cells 100 100 Counted Neutrophils % (Manual) 79 % 70 % Band Neutrophils % 1 % 6 % Lymphocytes % 11 % 16 % Monocytes % 7 % 2 % Basophils % 1 % Neutrophils # (Manual) 12.2 TH/MM3 10.5 TH/MM3 Myelocytes 1 % Nucleated Red Blood Cells 1 /100 WBC Differential Comment FINAL DIFF FINAL DIFF MANUAL MANUAL Platelet Estimate HIGH NORMAL Platelet Morphology Comment NORMAL NORMAL Polychromasia 2.4 % Eosinophils % 6 % Laboratory Tests Test 10/05/16 08:52 Sodium Level 137 MEQ/L Potassium Level 4.9 MEQ/L Chloride Level 103 MEQ/L Carbon Dioxide Level 25.8 MEQ/L Anion Gap 8 MEQ/L Blood Urea Nitrogen 36 MG/DL Creatinine 0.99 MG/DL Estimat Glomerular Filtration 72 ML/MIN Rate Random Glucose 286 MG/DL Calcium Level 9.7 MG/DL Phosphorus Level 3.1 MG/DL Magnesium Level 2.6 MG/DL Total Bilirubin 0.6 MG/DL Aspartate Amino Transf 71 U/L (AST/SGOT) Alanine Aminotransferase 33 U/L (ALT/SGPT) Alkaline Phosphatase 94 U/L Total Protein GM/DL Albumin 2.8 GM/DL Imaging Last Impressions Upper Extremity Ultrasound 10/03/16 0000 Signed Impressions: Service Date/Time: Monday, October 03, 2016 13:37 - CONCLUSION: 1. Limited examination without thrombus on the left. 2. Nondiagnostic evaluation of the right Rachid Lopez MD Lower Extremity Ultrasound 10/03/16 0000 Signed Impressions: Service Date/Time: Monday, October 03, 2016 13:37 - CONCLUSION: 1. Deep venous thrombosis in the right leg. 2. Noncompressibility of multiple veins in the left leg. Thrombus cannot be excluded. Justyn Bourgeois MD Chest X-Ray 10/03/16 0000 Signed Impressions: Service Date/Time: Monday, October 03, 2016 14:43 - CONCLUSION: No acute disease. Justyn Bourgeois MD Abdomen X-Ray 09/24/16 0000 Signed Impressions: Service Date/Time: Saturday, September 24, 2016 05:27 - CONCLUSION: Adequate placement of PEG tube. Justyn Bourgeois MD Abdomen Ultrasound 09/03/16 0000 Signed Impressions: Service Date/Time: Saturday, September 03, 2016 15:21 - CONCLUSION: 1. No acute findings. Exam somewhat limited by overlying bowel gas. Mina Varghese MD Physical Exam CONSTITUTIONAL/GENERAL: Opens eyes to touch, on Tpiece SKIN: No jaundice, rashes, or lesions. Warm and dry EYES: No scleral icterus. No injection or drainage. NECK: Trachea midline. Supple, nontender. Trach collar in place , site OK, minimal secretions CARDIOVASCULAR: Regular rate and rhythm without murmurs, gallops, or rubs. RESPIRATORY/CHEST: scattred rhonchi to auscultation. GASTROINTESTINAL: Abdomen soft, no reaction to palpation. mildly distended. Bowel sounds present. Dignishield in place with liquid brown stool PEG in place GENITOURINARY: Without palpable bladder distension. Lennon catheter in place with clear yellow urine MUSCULOSKELETAL: Extremities without clubbing, cyanosis, trace edema. No joint effusion noted. No mottling. contracted pt NEUROLOGICAL: opens eyes to tactaile stimulation, not tracking - at baseline PSYCHIATRIC: unable to assess LINE no evidence of infection Assessment & Plan Remarks Persistent low grade fever - pt has new RLE DVT which is likely to contribute to the fever - fever resolved after heparin started Bacteriia/funguria, no e/o UTI on last UA with new lennon Persistent tracheobronchitis, - low grade fevers - neg CXR - Persistently colonised with MDROs - previously MDRO Acietobacter in sputum Respiratory failure, has chronic trach - currently on T-piece, but breathing looks laboured or unusual Advanced Dementia Diarrhea, ho recent abx use; C.diff negative MDRO colonisation of urine clx with KLEBSIELLA PNEUMONIAE ESBL POS, only S to tetracycline - repeat UA with new lennon is not cw infx to suggest fever source PLAN monitor clinically off abx monitor temps monitor WBC OK to dc to care home off abx dw Dr Maldonado. Shyam Cardenas,Elle Schneider MD October 06, 2016 17:54
[2016-10-06] MEDS: APIXABAN 5 MG TABLET PO SCH (21:21)
[2016-10-07] VITALS (7 sets, daily range): BP systolic 98–113; BP diastolic 52–70; PULSE 106–112; RESP 16–21; TEMP 96.8–98.3; O2SAT 92–100
[2016-10-07 00:08] LABS: APTT (PATIENT) 26.1 SEC (24.3-30.1)
[2016-10-07] MEDS: CHLORHEXIDINE GLUCONATE 2 % 1 PACK (2 CLOTHS) TOP SCH (03:36)
[2016-10-07] MEDS: INSULIN NovoLIN REGULAR SUPPLEMENTAL SCALE SQ SCH ×6 (04:06→23:29)
[2016-10-07] MEDS: METOCLOPRAMIDE HCL 10 MG/2 ML VIAL IV PUSH SCH ×3 (05:03→22:00)
[2016-10-07] MEDS: FREE WATER G-TUBE SCH ×4 (05:04→23:31)
[2016-10-07 07:14] LABS: APTT (PATIENT) 26.1 SEC (24.3-30.1)
[2016-10-07 07:15] LABS: PROTHROMBIN TIME - PATIENT 11.4 SEC (9.8-11.6)
[2016-10-07] MEDS: CHLORHEXIDINE 0.12% (ORAL KIT) 15 ML CUP MT SCH ×2 (08:00→20:00)
[2016-10-07] MEDS: INSULIN DETEMIR 100 UNITS/ML VIAL SQ SCH ×2 (08:11→21:00)
[2016-10-07] MEDS: APIXABAN 5 MG TABLET PO SCH ×2 (08:12→21:00)
[2016-10-07] MEDS: MODAFINIL 200 MG TAB PO SCH (08:13)
[2016-10-07] MEDS: SODIUM CHLORIDE 0.9% FLUSH 10 ML FLUSH IV FLUSH SCH ×2 (08:13→21:00)
[2016-10-07] MEDS: FAMOTIDINE 20 MG TAB NG SCH (08:13)
[2016-10-07] MEDS: POVIDONE IODINE 10% SOLN 480 ML BTL TOPICAL SCH ×2 (08:13→21:00)
[2016-10-07] MEDS: JUVEN POWDER 1 PACK G-TUBE SCH ×2 (08:13→21:00)
[2016-10-07] MEDS: NYSTATIN 100,000 U/GM PWD 15 GM BTL TOPICAL SCH ×2 (08:13→21:00)
[2016-10-07] MEDS: DOCUSATE SODIUM 100 MG/10 ML UDC PO SCH ×2 (08:13→21:00)
[2016-10-07] MEDS: SENNOSIDES SYRUP 8.8 MG/5 ML CUP PO SCH (08:13)
[2016-10-07] MEDS ORDERED: APIX5TAB PO (12:52)
[2016-10-07] MEDS ORDERED: APIX2.5T PO (12:52)
[2016-10-07] MEDS ORDERED: MODA200T12 PO (12:52)
[2016-10-07] MEDS ORDERED: LEVEMIR SQ (12:52)
[2016-10-07] MEDS ORDERED: IPRA0.02 NEB (12:52)
[2016-10-07] MEDS ORDERED: FAMO20TA2 NG (12:52)
[2016-10-07] MEDS ORDERED: SENN8.8L PO (12:52)
[2016-10-07] MEDS ORDERED: NYST10007 TOPICAL (12:52)
[2016-10-07] MEDS ORDERED: JUVEPOW3 G-TUBE (12:54)
[2016-10-07] MEDS ORDERED: NOVOLOGP2 SQ (12:54)
[2016-10-07] MEDS ORDERED: DOCU100S PO (12:54)
[2016-10-07] MEDS ORDERED: Free Water G-TUBE (12:54)
[2016-10-07] MEDS ORDERED: HYOS0.1231 PO (12:55)
--- NOTE | 2016-10-07 12:56 | HHI.DS ---
Discharge Summary Admission Date Sep 02, 2016 at 23:35 Discharge Date: October 08, 2016 Admitting Diagnosis severe sepsis, hyperglycemia, hypernatremia, acute renal insufficien (1) Alzheimer's dementia ICD Code: F02.80 (2) DVT (deep venous thrombosis) ICD Code: I82.409 Diagnosis: Principal (3) UTI (urinary tract infection) ICD Code: N39.0 Procedures None. Brief History - From Admission This is an 80 year old male with end-stage dementia. He is well-known to me and I have taken care of him during his 2-month prior ICU admission with us. He has a history if dementia, DM, and chronic respiratory failure requiring tracheostomy. He was sent from the [facility] for evaluation of hyperglycemia. However, on evaluation in the ER, he was found to be tachycardic , diaphoretic. He had a serum Na 160, glucose of 600, Cr 3 (baseline around 1), lactate of 3.0, wbc 17. He was febrile as well. CXR appears clear and u/a clean. Unfortunately, the patient is unable to provide any additional history given his chronic medical state. The remainder of the history is based on my prior knowledge of the patient and chart review. I evaluated the patient in the emergency department. CBC/BMP: 10/06/16 0841 10/05/16 0852 Significant Findings Laboratory Tests Test 10/05/16 10/05/16 10/06/16 01:25 08:52 08:41 White Blood Count 15.1 TH/MM3 13.8 TH/MM3 (4.0-11.0) (4.0-11.0) Red Blood Count 4.27 MIL/MM3 3.98 MIL/MM3 3.64 MIL/MM3 (4.50-5.90) (4.50-5.90) (4.50-5.90) Hemoglobin 12.5 GM/DL 11.4 GM/DL 10.8 GM/DL (13.0-17.0) (13.0-17.0) (13.0-17.0) Hematocrit 37.1 % 34.5 % 31.3 % (39.0-51.0) (39.0-51.0) (39.0-51.0) Red Cell Distribution Width 19.6 % 19.4 % 19.9 % (11.6-17.2) (11.6-17.2) (11.6-17.2) Neutrophils # (Auto) 10.0 TH/MM3 9.5 TH/MM3 (1.8-7.7) (1.8-7.7) Monocytes # (Auto) 1.2 TH/MM3 1.1 TH/MM3 (0-0.9) (0-0.9) Neutrophils % (Manual) 79 % (16-70) Neutrophils # (Manual) 12.2 TH/MM3 10.5 TH/MM3 (1.8-7.7) (1.8-7.7) Myelocytes 1 % (0-0) Nucleated Red Blood Cells 1 /100 WBC (0-0) Platelet Estimate HIGH (NORMAL) Polychromasia 2.4 % (0.0-1.9) Eosinophils % 6 % (0-4) Prothrombin Time 12.1 SEC 12.1 SEC (9.8-11.6) (9.8-11.6) Blood Urea Nitrogen 36 MG/DL (7-18) Estimat Glomerular Filtration 72 ML/MIN (>89) Rate Random Glucose 286 MG/DL (74-106) Magnesium Level 2.6 MG/DL (1.5-2.5) Aspartate Amino Transf 71 U/L (15-37) (AST/SGOT) Albumin 2.8 GM/DL (3.4-5.0) Activated Partial 40.4 SEC Thromboplast Time (24.3-30.1) Imaging Last Impressions Upper Extremity Ultrasound 10/03/16 Signed Impressions: Service Date/Time: Monday, October 03, 2016 13:37 - CONCLUSION: 1. Limited examination without thrombus on the left. 2. Nondiagnostic evaluation of the right Rachid Lopez MD Lower Extremity Ultrasound 10/03/16 Signed Impressions: Service Date/Time: Monday, October 03, 2016 13:37 - CONCLUSION: 1. Deep venous thrombosis in the right leg. 2. Noncompressibility of multiple veins in the left leg. Thrombus cannot be excluded. Justyn Bourgeois MD Chest X-Ray 10/03/16 0000 Signed Impressions: Service Date/Time: Monday, October 03, 2016 14:43 - CONCLUSION: No acute disease. Justyn Bourgeois MD Abdomen X-Ray 09/24/16 0000 Signed Impressions: Service Date/Time: Saturday, September 24, 2016 05:27 - CONCLUSION: Adequate placement of PEG tube. Justyn Bourgeois MD Abdomen Ultrasound 09/03/16 0000 Signed Impressions: Service Date/Time: Saturday, September 03, 2016 15:21 - CONCLUSION: 1. No acute findings. Exam somewhat limited by overlying bowel gas. Mina Varghese MD PE at Discharge GENERAL: Pt laying a bed, in upright position, observed to be looking straight ahead, not in acute distress. SKIN: Warm and dry. HEAD: Normocephalic. EYES: eyes open without injection or discharge; non-icteric. NECK: Supple, trachea midline. T-piece in place. CARDIOVASCULAR: Regular rate and rhythm without murmurs, gallops, or rubs. RESPIRATORY: Breath sounds equal bilaterally. No accessory muscle use. GASTROINTESTINAL: Abdomen soft, non-tender, nondistended. Bowel sounds present all quadrants. MUSCULOSKELETAL: No cyanosis, or edema. Both feet in boots. PSYCHIATRIC: pt awake, non-interactive. Pt update on day of discharge Patient remains non-verbal. No acute changes. ID cleared for discharge. Hospital Course Mr. Amin is an 81 year old male with end stage Alzheimer's dementia, chronic respiratory failure who was brought to the hospital on 09/02/2016 due to hyperglycemia. However, on evaluation in the ER, he was found to be tachycardic , diaphoretic. He had a serum Na 160, glucose of 600, Cr 3 (baseline around 1), lactate of 3.0, wbc 17. He was febrile as well. Patient remained in the ICU until 09/25/2016 and during his ICU stay, electrolytes were corrected. Urine cx was positive for ESBL Klebsiella. ID was consulted. Patient was started on Ertapenem by ID. //Acute on Chronic respiratory failure - Continue with oxygen keep sat >92% - s/p #8 Shiley percutaneous trach 06/13. (Dr. Morataya/Dr. Dai). Downsized to a # 6 Shiley DFEN 08/05 - DuoNeb q6h and q2h prn, pulm toilet, trach care. Cont on T piece FIO2 28%. -Due to thick secretions being reported today (10/07/19) Will order Levsin. -Per Dr Howe, he has spoken with ID and they feel pt is ready for discharge. Per Dr. Howe, Pt is colonized with Acinetobacter (sputum) and not active infection. -Per Rn, pt with MRSA in sputum. Discussed with Dr. Howe who stated likely if due to colonization and not active infection as pt does not evidence signs of illness. //right lower extremity Occlusive DVT -10/03 with ultrasound showing what appears to be right lower extremity DVT, multiple noncompressible veins in the left leg. Start on heparin drip, transitioned to warfarin. -. Continue heparin drip. waiting for warfarin becomes therapeutic. 10/05. INR was noted to be 40.6, management per protocol.WBC is elevated for past two days, yet decreased this morning. Suspect elevation related to DVT. Monitor. 10/06 INR noted to be 40.6, management per protocol. WBC have dropped to normal limits. pt is receiving Coumadin 4 mg through his G tube. 10/08 Pt was transitioned to Eliquis 5mg BID on 10/06/16. //UTI with ESBL organism - Patient was on Ertapenem. ID recommended watching without any abx. - Due to fever, ID re-started on Ertapenem and Diflucan on 09/27/2016. -10/02. Fevers appear to be improving. Repeat urinalysis after Mckeon exchange by IV. Discussed with ID. Continue antibiotics. -Appreciate infectious disease assistance. Fevers may be secondary to DVT. continue to treat for DVT as above. //Alzheimer's dementia - Acetaminophen for fever/Dilaudid as needed for pain management. - Continues on Modafinil 400mg PO Qday - no significant improvement on this medication //Diabetes mellitus - Continue Levemir 15 units Q12hrs and sliding scale insulin. -09/30. Glucose again reviewed and acceptable. -Continue to monitor. -10/05: Finger sticks to be changed to every 6 hours as he has been checked every 4 hours (ICU schedule). //Nutrition, GERD - Continue Famotidine 20mg Qday - Continue tube feed. // sacral ulcer. Appears to be stage II on further exam. Continue wound care. -10/06 Wounds reported by nursing are [id number] on right side of back, 5cmx4 cm on left side of back, and a 7cmx5 cm sacral wound. Wound care is treating. Pt Condition on Discharge: Good Discharge Disposition: Discharge to SNF Discharge Time: > 30 minutes Discharge Instructions DIET: Follow Instructions for: On Tube Feeding Activities you can perform: Regular-No Restrictions Follow up Referrals: SNF/[facility]/ New Medications: Apixaban (Eliquis) 2.5 Mg Tab 2.5 MG PO BID Start after finishing 5 mg BID dosing for 7 days. Blood Clot Prevention #60 Ref 0 TAB Insulin Aspart Inj (Novolog Inj) 1,000 Unit/10 Ml Vial 1-9 UNITS SQ ACHS Max dose at bedtime:( )units; sugars less than 70,(0)units; sugars 150-199,(1) unit; sugars 200-249,(3) units; sugars 250-299,(5) units; sugars 300-349,(7) units; sugars greater than 349,(9) units Blood Sugar Management #10 Ref 0 ML Apixaban (Eliquis) 5 Mg Tab 5 MG PO BID Blood Clot Prevention #14 TAB Docusate Sodium Liq (Docusate Sodium Liq) 50 Mg/5 Ml Liq 100 MG PO Q12HR Constipation #60 ML Famotidine (Famotidine) 20 Mg Tab 20 MG NG DAILY Reflux #30 TAB Hyoscyamine Liq Drops (Hyosyne Liq Drops) 0.125 Mg/Ml Soln 0.125 MG PO Q4H PRN INCREASED SECRETIONS #30 BOTTLE Insulin Detemir Inj (Levemir Inj) 1,000 unit/ 10 ML Vial 15 UNITS SQ Q12HR Blood Sugar Management Days 30 INJECTION Ipratropium Neb (Ipratropium Neb) 0.5 Mg/2.5 Ml Amp 0.5 MG NEB Q2HR NEB PRN wheezing #30 ML Modafinil (Modafinil) 200 Mg Tab 400 MG PO DAILY dementia #30 TAB Nutritional Supplements (Nathan Nutrivigor) 1 Pow Pow 1 PACK G-TUBE BID vitamin #60 BOTTLE Nystatin Topical (Nystop Topical) 100,000 Unit/Gm Powd 1 APPLIC TOPICAL Q12HR Infection #30 BOTTLE Sennosides Liq (Senexon Liq) 8.8 Mg/5 Ml Liq 8.8 MG PO DAILY PRN Constipation #30 ML ([Free Water]) 1 ML FLUSH 200 ML G-TUBE Q6HR ML Continued Medications: Probiotic Product (Acidophilus) 1 Cap Cap 1 CAPLET G-TUBE Discontinued Medications: Sulfamethoxazole-Trimethoprim (Bactrim DS) 800-160 Mg Tab 1 TAB PEG Q12HR Infection #60 TAB Sharda Howe DO October 07, 2016 12:56
--- NOTE | 2016-10-07 13:54 | HHI.PR ---
Subjective Remarks Follow up for chronic respiratory failure, end stage Alzheimer's dementia. Patient is aphasic, does not participate in care. Pt sleeping at time of visit and did not meaningfully interact with clinician. Discussed pt with nurse who reported no significant issues at this time. Objective Vitals Vital Signs Date Time Temp Pulse Resp B/P Pulse Ox O2 Delivery O2 Flow Rate FiO2 10/07/16 12:59 99 T-piece 28 10/07/16 12:12 100 Trach Collar 6.00 28 10/07/16 10:15 99 T-piece 28 10/07/16 08:00 98.3 111 17 113/70 99 10/07/16 04:00 98.0 106 16 98/52 100 10/07/16 00:00 97.3 112 18 106/66 92 10/06/16 20:00 107 10/06/16 20:00 99 Trach Collar 6.00 28 10/06/16 19:30 98.1 106 18 118/61 100 10/06/16 15:50 96.6 112 22 136/75 98 I/O 10/06/16 10/06/16 10/06/16 10/07/16 10/07/16 10/07/16 07:00 15:00 23:00 07:00 15:00 23:00 Intake Total 640 ml 940 ml Output Total 700 ml 850 ml Balance -700 ml -850 ml 640 ml 940 ml Tube Feeding 440 ml 440 ml Tube Irrigant 200 ml 100 ml Other 400 ml Output Urine Total 700 ml 850 ml # Voids 4 Result Diagram: 10/06/16 0841 10/05/16 0852 Imaging No reports or imaging within the past 24 hours. Objective Remarks GENERAL: Pt laying a bed, eyes closed, not in acute distress. SKIN: Warm and dry. HEAD: Normocephalic. EYES: eyes closed without discharge. NECK: Supple, trachea midline. T-piece in place. CARDIOVASCULAR: Regular rate and rhythm without murmurs, gallops, or rubs. RESPIRATORY: Breath sounds equal bilaterally. No accessory muscle use. GASTROINTESTINAL: Abdomen soft, non-tender, nondistended. Bowel sounds present all quadrants. Rectal tube in place, feces noted. MUSCULOSKELETAL: No cyanosis, or edema. Both feet in boots. PSYCHIATRIC: pt sleep, non-interactive. Procedures None. Medications and IVs Current Medications Medications (Trade) Dose Ordered Sig/Estefany Route Start Time Stop Time Status Last Admin (NS Flush) 2 ml UNSCH PRN IV FLUSH 09/02/16 23:30 09/13/16 22:01 (NS Flush) 2 ml BID IV FLUSH 09/03/16 09:00 10/07/16 08:13 (Tylenol) 650 mg Q6H PRN PO 09/02/16 23:30 10/04/16 22:44 (Zofran Inj) 4 mg Q6H PRN IV 09/02/16 23:30 Miscellaneous Information 1 Q361D XX 09/02/16 23:30 (Chlorhexidine 2% Cloth) Taper DAILY@04 TOP 09/03/16 04:00 08/30/17 03:59 09/26/16 04:30 (Chlorhexidine 2% Cloth) 3 pack UNSCH PRN TOP 09/02/16 23:30 (Provigil) 400 mg DAILY PO 09/03/16 09:00 10/07/16 08:13 (D50w (Vial) Inj) 25 ml UNSCH PRN IV PUSH 09/03/16 07:45 (Glucagon Inj) 1 mg UNSCH PRN OTHER 09/03/16 07:45 (NovoLIN R SUPPLEMENTAL SCALE) 1 Q4HR SQ 09/03/16 08:00 10/07/16 12:00 (Dilaudid Pf Inj) 0.5 mg Q4H PRN IV PUSH 09/03/16 09:30 09/24/16 04:25 (Pepcid) 20 mg DAILY NG 09/04/16 09:00 10/07/16 08:13 (Levemir Inj) 15 units Q12HR SQ 09/04/16 21:00 10/07/16 08:11 (Peridex 0.12% Liq) 15 ml BID@08,20 MT 09/06/16 20:00 10/06/16 21:19 (Reglan Inj) 5 mg Q8HR IV PUSH 09/12/16 14:00 10/07/16 12:07 (Betadine 10% Top Soln) 1 applic BID TOPICAL 09/12/16 21:00 10/07/16 08:13 (Nathan Powder) 1 pack BID G-TUBE 09/15/16 21:00 10/07/16 08:13 (Free Water) 200 ml Q6HR G-TUBE 09/16/16 00:00 10/07/16 12:00 (Colace Liq) 100 mg Q12HR PO 09/20/16 21:00 10/06/16 21:17 (Senna Liq) 8.8 mg DAILY PO 09/21/16 09:00 10/06/16 08:12 (Mycostatin Powder) 1 applic Q12HR TOPICAL 09/20/16 21:00 10/07/16 08:13 (Levsin Liq) 0.125 mg Q4H PRN PO 10/06/16 12:45 (Eliquis) 5 mg BID PO 10/06/16 21:00 10/07/16 08:12 Urinary Catheter: Yes Assessment to: Continue Mckeon insert reason: Prolonged Immobilization Vascular Central Line Catheter: No A/P Assessment and Plan Mr. Amin is an 81 year old male with end stage Alzheimer's dementia, chronic respiratory failure who was brought to the hospital on 09/02/2016 due to hyperglycemia. However, on evaluation in the ER, he was found to be tachycardic , diaphoretic. He had a serum Na 160, glucose of 600, Cr 3 (baseline around 1), lactate of 3.0, wbc 17. He was febrile as well. Patient remained in the ICU until 09/25/2016 and during his ICU stay, electrolytes were corrected. Urine cx was positive for ESBL Klebsiella. ID was consulted. Patient was started on Ertapenem by ID. //Acute on Chronic respiratory failure - Continue with oxygen keep sat >92% - s/p #8 Johana percutaneous trach 06/13. (Dr. Morataya/Dr. Dai). Downsized to a # 6 Johana DFEN 08/05 - DuoNeb q6h and q2h prn, pulm toilet, trach care. Cont on T piece FIO2 28%. -Due to thick secretions being reported today (10/07/19) Will order Levsin. -Per Dr Howe, he has spoken with ID and they feel pt is ready for discharge. Per Dr. Howe, Pt is colonized with Acinetobacter (sputum) and not active infection. //right lower extremity Occlusive DVT -10/03 with ultrasound showing what appears to be right lower extremity DVT, multiple noncompressible veins in the left leg. Start on heparin drip, transitioned to warfarin. -. Continue heparin drip. waiting for warfarin becomes therapeutic. 10/05. INR was noted to be 40.6, management per protocol.WBC is elevated for past two days, yet decreased this morning. Suspect elevation related to DVT. Monitor. 10/06 INR noted to be 40.6, management per protocol. WBC have dropped to normal limits. pt is receiving Coumadin 4 mg through his G tube. //UTI with ESBL organism - Patient was on Ertapenem. ID recommended watching without any abx. - Due to fever, ID re-started on Ertapenem and Diflucan on 09/27/2016. -10/02. Fevers appear to be improving. Repeat urinalysis after Mckeon exchange by IV. Discussed with ID. Appreciate assistance. Continue antibiotics. -Appreciate infectious disease assistance. Fevers may be secondary to DVT. continue to treat for DVT as above. - //Alzheimer's dementia - Acetaminophen for fever/Dilaudid as needed for pain management. - Continues on Modafinil 400mg PO Qday - no significant improvement on this medication //Diabetes mellitus - Continue Levemir 15 units Q12hrs and sliding scale insulin. -09/30. Glucose again reviewed and acceptable. -Continue to monitor. -10/05: Finger sticks to be changed to every 6 hours as he has been checked every 4 hours (ICU schedule). //Nutrition, GERD - Continue Famotidine 20mg Qday - Continue tube feed. // sacral ulcer. Appears to be stage II on further exam. Continue wound care. -10/06 Wounds reported by nursing are [id number] on right side of back, 5cmx4 cm on left side of back, and a 7cmx5 cm sacral wound. Wound care is treating. DVT prophylaxis. on heparin drip for DVT. Discharge Planning -Titrate warfarin. has been accepted to SNF. -we'll need ID clearance prior to discharge Appreciate case management assistance. -10/07/16 :Working towards discharge as pt has Acinetobacter (sputum) and he will need an isolation room. CM is aware and attending to this issue. Sean Magana Jr. October 07, 2016 13:54
[2016-10-08] MEDS: CHLORHEXIDINE GLUCONATE 2 % 1 PACK (2 CLOTHS) TOP SCH (03:03)
[2016-10-08] MEDS: INSULIN NovoLIN REGULAR SUPPLEMENTAL SCALE SQ SCH ×4 (04:00→15:35)
[2016-10-08] MEDS: FREE WATER G-TUBE SCH ×3 (05:19→17:26)
[2016-10-08] MEDS: METOCLOPRAMIDE HCL 10 MG/2 ML VIAL IV PUSH SCH ×2 (05:19→12:00)
[2016-10-08] MEDS: CHLORHEXIDINE 0.12% (ORAL KIT) 15 ML CUP MT SCH (08:00)
[2016-10-08] MEDS: MODAFINIL 200 MG TAB PO SCH (08:09)
[2016-10-08] MEDS: SODIUM CHLORIDE 0.9% FLUSH 10 ML FLUSH IV FLUSH SCH (08:09)
[2016-10-08] MEDS: SENNOSIDES SYRUP 8.8 MG/5 ML CUP PO SCH (08:09)
[2016-10-08] MEDS: APIXABAN 5 MG TABLET PO SCH (08:09)
[2016-10-08] MEDS: FAMOTIDINE 20 MG TAB NG SCH (08:09)
[2016-10-08] MEDS: DOCUSATE SODIUM 100 MG/10 ML UDC PO SCH (08:09)
[2016-10-08] MEDS: JUVEN POWDER 1 PACK G-TUBE SCH (08:09)
[2016-10-08] MEDS: INSULIN DETEMIR 100 UNITS/ML VIAL SQ SCH (08:11)
[2016-10-08] MEDS: NYSTATIN 100,000 U/GM PWD 15 GM BTL TOPICAL SCH (08:11)
[2016-10-08] MEDS: POVIDONE IODINE 10% SOLN 480 ML BTL TOPICAL SCH (08:11)
[2016-10-08 08:40] VITALS: BP 129/65; PULSE 80; TEMP 97.5; O2SAT 100
[2016-10-08 09:02] VITALS: O2SAT 100
[2016-10-08 12:15] VITALS: BP 103/53; PULSE 70; TEMP 98.5; O2SAT 100
--- NOTE | 2016-10-08 13:30 | HHI.PR ---
Subjective Remarks Follow up for chronic respiratory failure, end stage Alzheimer's dementia. Patient is aphasic, does not participate in care. Pt sleeping at time of visit, rolled on left side in position, and did not meaningfully interact with clinician. Discussed pt with nurse who reported no significant issues at this time. Objective Vitals Vital Signs Date Time Temp Pulse Resp B/P Pulse Ox O2 Delivery O2 Flow Rate FiO2 10/08/16 09:02 100 T-piece 28 10/08/16 08:40 97.5 80 129/65 100 10/08/16 08:18 100 Trach Collar 6.00 28 10/07/16 22:28 100 T-piece 6.00 28 10/07/16 22:28 100 T-piece 6.00 28 10/07/16 20:00 100 Trach Collar 6.00 28 10/07/16 16:00 96.8 106 21 107/56 100 I/O 10/07/16 10/07/16 10/07/16 10/08/16 10/08/16 10/08/16 06:59 14:59 22:59 06:59 14:59 22:59 Intake Total 940 ml Balance 940 ml Tube Feeding 440 ml Tube Irrigant 100 ml Other 400 ml # Voids 4 Result Diagram: 10/06/16 0841 10/05/16 0852 Imaging No new imaging studies ordered or resulted within the past 24 hours. Objective Remarks GENERAL: Pt laying a bed, eyes closed, not in acute distress. SKIN: Warm and dry. HEAD: Normocephalic. EYES: eyes closed without discharge. NECK: Supple, trachea midline. T-piece in place. CARDIOVASCULAR: Regular rate and rhythm without murmurs, gallops, or rubs. RESPIRATORY: Breath sounds equal bilaterally. No accessory muscle use. GASTROINTESTINAL: Abdomen soft, non-tender, nondistended. Bowel sounds present all quadrants. Rectal tube absent. MUSCULOSKELETAL: No cyanosis, or edema. Both feet in boots. PSYCHIATRIC: Pt sleep, non-interactive. Procedures None. Medications and IVs Current Medications Medications (Trade) Dose Ordered Sig/Estefany Route Start Time Stop Time Status Last Admin (NS Flush) 2 ml UNSCH PRN IV FLUSH 09/02/16 23:30 09/13/16 22:01 (NS Flush) 2 ml BID IV FLUSH 09/03/16 09:00 10/07/16 08:13 (Tylenol) 650 mg Q6H PRN PO 09/02/16 23:30 10/04/16 22:44 (Zofran Inj) 4 mg Q6H PRN IV 09/02/16 23:30 Miscellaneous Information 1 Q361D XX 09/02/16 23:30 (Chlorhexidine 2% Cloth) Taper DAILY@04 TOP 09/03/16 04:00 08/30/17 03:59 09/26/16 04:30 (Chlorhexidine 2% Cloth) 3 pack UNSCH PRN TOP 09/02/16 23:30 (Provigil) 400 mg DAILY PO 09/03/16 09:00 10/08/16 08:09 (D50w (Vial) Inj) 25 ml UNSCH PRN IV PUSH 09/03/16 07:45 (Glucagon Inj) 1 mg UNSCH PRN OTHER 09/03/16 07:45 (NovoLIN R SUPPLEMENTAL SCALE) 1 Q4HR SQ 09/03/16 08:00 10/08/16 11:59 (Dilaudid Pf Inj) 0.5 mg Q4H PRN IV PUSH 09/03/16 09:30 09/24/16 04:25 (Pepcid) 20 mg DAILY NG 09/04/16 09:00 10/08/16 08:09 (Levemir Inj) 15 units Q12HR SQ 09/04/16 21:00 10/08/16 08:11 (Peridex 0.12% Liq) 15 ml BID@08,20 MT 09/06/16 20:00 10/06/16 21:19 (Reglan Inj) 5 mg Q8HR IV PUSH 09/12/16 14:00 10/07/16 12:07 (Betadine 10% Top Soln) 1 applic BID TOPICAL 09/12/16 21:00 10/08/16 08:11 (Nathan Powder) 1 pack BID G-TUBE 09/15/16 21:00 10/08/16 08:09 (Free Water) 200 ml Q6HR G-TUBE 09/16/16 00:00 10/08/16 11:53 (Colace Liq) 100 mg Q12HR PO 09/20/16 21:00 10/06/16 21:17 (Senna Liq) 8.8 mg DAILY PO 09/21/16 09:00 10/06/16 08:12 (Mycostatin Powder) 1 applic Q12HR TOPICAL 09/20/16 21:00 10/08/16 08:11 (Levsin Liq) 0.125 mg Q4H PRN PO 10/06/16 12:45 (Eliquis) 5 mg BID PO 10/06/16 21:00 10/08/16 08:09 Urinary Catheter: Yes Assessment to: Continue Mckeon insert reason: Prolonged Immobilization Vascular Central Line Catheter: No A/P Assessment and Plan Mr. Amin is an 81 year old male with end stage Alzheimer's dementia, chronic respiratory failure who was brought to the hospital on 09/02/2016 due to hyperglycemia. However, on evaluation in the ER, he was found to be tachycardic , diaphoretic. He had a serum Na 160, glucose of 600, Cr 3 (baseline around 1), lactate of 3.0, wbc 17. He was febrile as well. Patient remained in the ICU until 09/25/2016 and during his ICU stay, electrolytes were corrected. Urine cx was positive for ESBL Klebsiella. ID was consulted. Patient was started on Ertapenem by ID. //Acute on Chronic respiratory failure - Continue with oxygen keep sat >92% - s/p #8 Shiley percutaneous trach 06/13. (Dr. Morataya/Dr. Dai). Downsized to a # 6 Shiley DFEN 08/05 - DuoNeb q6h and q2h prn, pulm toilet, trach care. Cont on T piece FIO2 28%. -Due to thick secretions being reported today (10/07/19) Will order Levsin. -Per Dr Howe, he has spoken with ID and they feel pt is ready for discharge. Per Dr. Howe, Pt is colonized with Acinetobacter (sputum) and not active infection. -Per Rn, pt with MRSA in sputum. Discussed with Dr. Howe who stated likely if due to colonization and not active infection as pt does not evidence signs of illness. //right lower extremity Occlusive DVT -10/03 with ultrasound showing what appears to be right lower extremity DVT, multiple noncompressible veins in the left leg. Start on heparin drip, transitioned to warfarin. -. Continue heparin drip. waiting for warfarin becomes therapeutic. 10/05. INR was noted to be 40.6, management per protocol.WBC is elevated for past two days, yet decreased this morning. Suspect elevation related to DVT. Monitor. 10/06 INR noted to be 40.6, management per protocol. WBC have dropped to normal limits. pt is receiving Coumadin 4 mg through his G tube. 10/08 Pt was transitioned to Eliquis 5mg BID on 10/06/16. //UTI with ESBL organism - Patient was on Ertapenem. ID recommended watching without any abx. - Due to fever, ID re-started on Ertapenem and Diflucan on 09/27/2016. -10/02. Fevers appear to be improving. Repeat urinalysis after Mckeon exchange by IV. Discussed with ID. Appreciate assistance. Continue antibiotics. -Appreciate infectious disease assistance. Fevers may be secondary to DVT. continue to treat for DVT as above. - //Alzheimer's dementia - Acetaminophen for fever/Dilaudid as needed for pain management. - Continues on Modafinil 400mg PO Qday - no significant improvement on this medication //Diabetes mellitus - Continue Levemir 15 units Q12hrs and sliding scale insulin. -09/30. Glucose again reviewed and acceptable. -Continue to monitor. -10/05: Finger sticks to be changed to every 6 hours as he has been checked every 4 hours (ICU schedule). //Nutrition, GERD - Continue Famotidine 20mg Qday - Continue tube feed. // sacral ulcer. Appears to be stage II on further exam. Continue wound care. -10/06 Wounds reported by nursing are [id number] on right side of back, 5cmx4 cm on left side of back, and a 7cmx5 cm sacral wound. Wound care is treating. DVT prophylaxis. on heparin drip for DVT. Discharge Planning -Titrate warfarin. has been accepted to SNF. -we'll need ID clearance prior to discharge Appreciate case management assistance. -10/07/16 :Working towards discharge as pt has Acinetobacter (sputum) and he will need an isolation room. CM is aware and attending to this issue. 10/08/16: Pt does have placement at a facility with isolation room yet a transportation issue exists. CM addressing. Sean Magana Jr. October 08, 2016 13:30
[2016-10-08 16:05] VITALS: BP 101/57; PULSE 65; TEMP 97.3; O2SAT 96
[2016-10-08] MEDS ORDERED: APIXABAN 5 MG TABLET G-TUBE SCH (21:00)
== END 2016-10-08 19:35 | DRG 870 ==
LOC: NEPE 22:05 → NEDA 23:35 → HIME 09-03 00:45 → HIMN 09-14 20:00 → N05A 09-26 16:37 → UNDODISIN 10-07 21:53
PROVIDERS: ADMIT Internal Medicine Critical Care Medicine; ATTEND Hospitalist
PROC: 5A1955Z Respiratory Ventilation, Greater than 96 Consecutive Hours (ICD-10-PCS; principal; 2016-09-02)
PROC: 0D20XUZ Change Feeding Device in Upper Intestinal Tract, External Approach (ICD-10-PCS; 2016-09-19)
DX: A41.9 Sepsis, unspecified organism (principal); J96.20 Acute and chronic respiratory failure, unspecified whether with hypoxia or hypercapnia; E43 Unspecified severe protein-calorie malnutrition; J15.1 Pneumonia due to Pseudomonas; J15.6 Pneumonia due to other Gram-negative bacteria; E87.2 Acidosis; E87.0 Hyperosmolality and hypernatremia; N17.9 Acute kidney failure, unspecified; Z93.0 Tracheostomy status; R13.10 Dysphagia, unspecified; B37.49 Other urogenital candidiasis; F05 Delirium due to known physiological condition; N39.0 Urinary tract infection, site not specified; R47.01 Aphasia; K94.23 Gastrostomy malfunction; I82.411 Acute embolism and thrombosis of right femoral vein; D69.6 Thrombocytopenia, unspecified; L89.152 Pressure ulcer of sacral region, stage 2; E11.65 Type 2 diabetes mellitus with hyperglycemia; G30.9 Alzheimer's disease, unspecified; F02.80 Dementia in other diseases classified elsewhere, unspecified severity, without behavioral disturbance, psychotic disturbance, mood disturbance, and anxiety; E88.09 Other disorders of plasma-protein metabolism, not elsewhere classified; E87.5 Hyperkalemia; E86.0 Dehydration; R62.7 Adult failure to thrive; Z68.20 Body mass index [BMI] 20.0-20.9, adult; B96.1 Klebsiella pneumoniae [K. pneumoniae] as the cause of diseases classified elsewhere; Z16.12 Extended spectrum beta lactamase (ESBL) resistance; N40.0 Benign prostatic hyperplasia without lower urinary tract symptoms; R65.20 Severe sepsis without septic shock; R19.7 Diarrhea, unspecified; J40 Bronchitis, not specified as acute or chronic; S90.822A Blister (nonthermal), left foot, initial encounter; Y95 Nosocomial condition; K21.9 Gastro-esophageal reflux disease without esophagitis; Z22.322 Carrier or suspected carrier of Methicillin resistant Staphylococcus aureus; Z22.39 Carrier of other specified bacterial diseases; B96.4 Proteus (mirabilis) (morganii) as the cause of diseases classified elsewhere; E87.8 Other disorders of electrolyte and fluid balance, not elsewhere classified; E83.39 Other disorders of phosphorus metabolism; D64.9 Anemia, unspecified
CPT/HCPCS: 36600; 51702; 71010; 74000; 76700; 76937; 80048; 80053; 80069; 80076; 80202; 81001; 82010; 82570; 82805; 82948; 83605; 83690; 83735; 84100; 84132; 84295; 84300; 85007; 85025; 85027; 85379; 85610; 85730; 86403; 87040; 87070; 87077; 87086; 87106; 87147; 87181; 87184; 87186; 87205; 87493; 87641; 87804; 93970; 93971; 94002; 94003; 94640; 94664; 94762; 96374; 96375; J0295; J1170; J1335; J1644; J1815; J1956; J2185; J2248; J2543; J2765; J3370; J7030; J7050; J7644; J7682; Q9963